=== PATIENT | male | born 1950 | race Caucasian/White ===

== ENCOUNTER → 2018-05-29 08:03 | Outpatient (CLI) | payer OTHER, SELFPAY ==
[2018-05-29 12:11] LABS: INR 1.3 (1.0-3.5); Prothrombin Time 12.2 sec (9.3-10.8)
== END ==
PROVIDERS: PCP Family Medicine; Visit Provider Surgery
DX: Z79.01 Long term (current) use of anticoagulants (principal); Z95.2 Presence of prosthetic heart valve
CPT/HCPCS: 36415; 85610

== ENCOUNTER → 2018-06-01 07:40 | Outpatient (CLI) | payer OTHER, SELFPAY ==
[2018-06-01 11:12] LABS: INR 1.6 (1.0-3.5); Prothrombin Time 15.3 sec (9.3-10.8)
== END ==
PROVIDERS: PCP Family Medicine; Visit Provider Family Medicine
DX: R79.1 Abnormal coagulation profile (principal); Z79.01 Long term (current) use of anticoagulants
CPT/HCPCS: 36415; 85610

== ENCOUNTER → 2018-06-02 14:17 | Outpatient (CLI) | payer OTHER, SELFPAY ==
[2018-06-02 15:10] LABS: Prothrombin Time 19.4 sec (9.3-10.8)
== END ==
PROVIDERS: PCP Family Medicine; Visit Provider Family Medicine
DX: Z79.01 Long term (current) use of anticoagulants (principal); Z95.2 Presence of prosthetic heart valve
CPT/HCPCS: 36415; 85610

== ENCOUNTER → 2018-06-05 09:42 | Outpatient (CLI) | payer OTHER, SELFPAY ==
[2018-06-05 14:46] LABS: INR 1.6 (1.0-3.5); Prothrombin Time 15.7 sec (9.3-10.8)
== END ==
PROVIDERS: PCP Family Medicine; Visit Provider Family Medicine
DX: R79.1 Abnormal coagulation profile (principal); Z95.2 Presence of prosthetic heart valve; Z79.01 Long term (current) use of anticoagulants
CPT/HCPCS: 85610

== ENCOUNTER 2018-06-09 08:26 | Outpatient (CLI) | payer OTHER, SELFPAY ==
[2018-06-09 16:50] LABS: INR 2.2 (1.0-3.5); Prothrombin Time 21.3 sec (9.3-10.8)
== END 2018-06-09 08:27 ==
PROVIDERS: PCP Family Medicine; Visit Provider Family Medicine
DX: R79.1 Abnormal coagulation profile (principal); Z79.01 Long term (current) use of anticoagulants; Z95.2 Presence of prosthetic heart valve
CPT/HCPCS: 36415; 85610

== ENCOUNTER 2018-06-16 15:50 | Outpatient (REF) | payer OTHER, SELFPAY ==
[2018-06-16 21:01] LABS: HGB 13.2 g/dL (13.5-17.5)
[2018-06-16 21:25] LABS: ALT 18 U/L (12-78); AST 27 U/L (15-37); Albumin 3.5 g/dL (3.4-5.0); Alkaline Phosphatase 70 U/L (46-116); Anion Gap 4.8 mmol/L (3-11); BUN 17 mg/dL (7-18); Bilirubin, Total 0.2 mg/dL (0.2-1.0); CO2 27.2 mmol/L (21.0-32.0); CREATININE 1.11 mg/dL (0.70-1.30); Calcium 8.5 mg/dL (8.5-10.1); Chloride 109 mmol/L (98-107); Glucose 95 mg/dL (70-100); Potassium 4.6 mmol/L (3.5-5.1); Sodium 141 mmol/L (136-145); TSH (W/Ref FT4) 1.23 uIU/mL (0.358-3.74); Total Protein 6.4 g/dL (6.4-8.2)
== END 2018-06-16 16:10 ==
LOC: NCHCN 15:50
PROVIDERS: PCP Family Medicine; Visit Provider Family Medicine
DX: E03.9 Hypothyroidism, unspecified (principal); D62 Acute posthemorrhagic anemia
CPT/HCPCS: 80053; 84443; 85014; 85018

== ENCOUNTER 2018-06-21 07:40 | Outpatient (CLI) | payer OTHER, SELFPAY ==
[2018-06-21 10:50] LABS: INR 1.4 (1.0-3.5); Prothrombin Time 13.5 sec (9.3-10.8)
== END 2018-06-21 08:00 ==
PROVIDERS: PCP Family Medicine; Visit Provider Family Medicine
DX: R79.1 Abnormal coagulation profile (principal); Z95.2 Presence of prosthetic heart valve; Z79.01 Long term (current) use of anticoagulants
CPT/HCPCS: 36415; 85610

== ENCOUNTER 2018-06-27 15:01 | Outpatient (CLI) | payer OTHER, SELFPAY ==
[2018-06-27 16:43] LABS: Prothrombin Time 28.3 sec (9.3-10.8)
== END 2018-06-27 15:21 ==
PROVIDERS: PCP Family Medicine; Visit Provider Family Medicine
DX: R79.1 Abnormal coagulation profile (principal); Z95.2 Presence of prosthetic heart valve; Z79.01 Long term (current) use of anticoagulants
CPT/HCPCS: 36415; 85610

== ENCOUNTER 2018-07-04 08:25 | Outpatient (CLI) | payer OTHER, SELFPAY ==
[2018-07-04 12:18] LABS: Prothrombin Time 28.3 sec (9.3-10.8)
== END 2018-07-04 08:45 ==
PROVIDERS: PCP Family Medicine; Visit Provider Family Medicine
DX: R79.1 Abnormal coagulation profile (principal); Z95.2 Presence of prosthetic heart valve; Z79.01 Long term (current) use of anticoagulants
CPT/HCPCS: 36415; 85610

== ENCOUNTER 2018-07-07 08:50 | Emergency (ER) | payer OTHER, SELFPAY ==
--- NOTE | 2018-07-07 09:01 | NUR.NOTE ---
Nursing Note: Put on tracker in error. Notified by Kehinde Prasad RN. Sandee Hauser.
== END 2018-07-07 09:02 | disposition other institution (70) ==
LOC: ER 09:03
PROVIDERS: PCP Family Medicine
DX: Z53.21 Procedure and treatment not carried out due to patient leaving prior to being seen by health care provider (principal)

== ENCOUNTER 2018-07-12 08:08 | Outpatient (CLI) | payer OTHER, SELFPAY ==
[2018-07-12 13:45] LABS: INR 2.8 (1.0-3.5); Prothrombin Time 26.3 sec (9.3-10.8)
== END 2018-07-12 08:28 ==
PROVIDERS: PCP Family Medicine; Visit Provider Family Medicine
DX: R79.1 Abnormal coagulation profile (principal); Z79.01 Long term (current) use of anticoagulants; Z95.2 Presence of prosthetic heart valve
CPT/HCPCS: 36415; 85610

== ENCOUNTER 2018-08-01 12:10 | Outpatient (CLI) | payer OTHER, SELFPAY ==
[2018-08-01 12:59] LABS: INR 2.5 (1.0-3.5); Prothrombin Time 23.6 sec (9.3-10.8)
== END 2018-08-01 12:30 ==
PROVIDERS: PCP Family Medicine; Visit Provider Family Medicine
DX: R79.1 Abnormal coagulation profile (principal); Z79.01 Long term (current) use of anticoagulants; Z95.2 Presence of prosthetic heart valve
CPT/HCPCS: 36415; 85610

== ENCOUNTER 2018-08-08 09:50 | Outpatient (REF) | payer OTHER, SELFPAY ==
[2018-08-08 19:19] LABS: HCT 48.2 % (40.0-50.0); HGB 15.1 g/dL (13.5-17.5); Mean Corp. HGB Concentration 31.3 g/dL (32.0-36.0); Mean Corpuscular Volume 95.6 fL (80-95); Mean Platelet Volume 11.1 fL (8.0-11.0); Platelet Count 266 x1000/uL (130-400); RBC 5.04 m/cumm (4.50-6.00); RBC Distribution Width 15.9 % (11.8-14.1); White Blood Cell Count 7.93 k/cumm (4.4-10.8)
[2018-08-08 19:36] LABS: ALT 22 U/L (12-78); AST 30 U/L (15-37); Albumin 3.8 g/dL (3.4-5.0); Alkaline Phosphatase 64 U/L (46-116); Anion Gap 7.6 mmol/L (3-11); BUN 26 mg/dL (7-18); Bilirubin, Total 0.6 mg/dL (0.2-1.0); CO2 27.4 mmol/L (21.0-32.0); CREATININE 1.41 mg/dL (0.70-1.30); Calcium 9.1 mg/dL (8.5-10.1); Chloride 103 mmol/L (98-107); Estimated GFR 49.99 (mL/min/1.73m2); Glucose 95 mg/dL (70-100); Potassium 4.9 mmol/L (3.5-5.1); Sodium 138 mmol/L (136-145); Total Protein 6.9 g/dL (6.4-8.2)
== END 2018-08-08 10:10 ==
LOC: NCHCN 09:50
PROVIDERS: PCP Family Medicine; Visit Provider Specialist/Technologist Athletic Trainer
DX: Z86.2 Personal history of diseases of the blood and blood-forming organs and certain disorders involving the immune mechanism (principal); Z79.01 Long term (current) use of anticoagulants; Z01.818 Encounter for other preprocedural examination
CPT/HCPCS: 80053; 85027

== ENCOUNTER 2018-09-06 07:51 | Outpatient (CLI) | payer OTHER, SELFPAY ==
[2018-09-06 11:19] LABS: INR 1.9 (1.0-3.5); Prothrombin Time 18.3 sec (9.3-10.8)
== END 2018-09-06 08:11 ==
PROVIDERS: PCP Family Medicine; Visit Provider Family Medicine
DX: R79.1 Abnormal coagulation profile (principal); Z95.2 Presence of prosthetic heart valve; Z79.01 Long term (current) use of anticoagulants
CPT/HCPCS: 36415; 85610

== ENCOUNTER 2018-09-14 07:27 | Outpatient (CLI) | payer OTHER, SELFPAY ==
[2018-09-14 11:47] LABS: INR 2.1 (1.0-3.5); Prothrombin Time 20.1 sec (9.3-10.8)
== END 2018-09-14 07:47 ==
LOC: LBO 07:28 → NCHCO 10-11 09:02
PROVIDERS: PCP Family Medicine; Visit Provider Family Medicine
DX: R79.1 Abnormal coagulation profile (principal); Z79.01 Long term (current) use of anticoagulants; Z95.2 Presence of prosthetic heart valve
CPT/HCPCS: 36415; 85610

== ENCOUNTER 2018-12-15 13:42 | Outpatient (REF) | payer OTHER, SELFPAY ==
[2018-12-15 19:23] LABS: Abs Immature Grans 0.02 k/cumm (0.0-0.09); Absolute Basophil Count 0.09 k/cumm (0.0-0.2); Absolute Eosinophil Count 0.44 k/cumm (0.0-0.7); Absolute Monocyte Count 0.49 k/cumm (0.11-0.7); Absolute Neutrophil Count 4.38 k/cumm (1.2-6.7); Basophils % 1.4; Eosinophils % 6.7; HCT 45.1 % (40.0-50.0); HGB 14.4 g/dL (13.5-17.5); Immature Grans % 0.3; Lymphocytes % 16.9; Mean Corp. HGB Concentration 31.9 g/dL (32.0-36.0); Mean Corpuscular Hemoglobin 30.4 pg (27.0-33.0); Mean Corpuscular Volume 95.1 fL (80-95); Mean Platelet Volume 10.6 fL (8.0-11.0); Monocytes % 7.5; Neutrophils % 67.2; Platelet Count 257 x1000/uL (130-400); RBC 4.74 m/cumm (4.50-6.00); RBC Distribution Width 15.7 % (11.8-14.1); White Blood Cell Count 6.52 k/cumm (4.4-10.8)
[2018-12-15 19:38] LABS: ALT 17 U/L (12-78); AST 28 U/L (15-37); Albumin 3.7 g/dL (3.4-5.0); Alkaline Phosphatase 69 U/L (46-116); Anion Gap 7.6 mmol/L (3-11); BUN 19 mg/dL (7-18); Bilirubin, Total 0.4 mg/dL (0.2-1.0); CO2 29.4 mmol/L (21.0-32.0); CREATININE 1.06 mg/dL (0.70-1.30); Chloride 104 mmol/L (98-107); Glucose 86 mg/dL (70-100); Potassium 4.6 mmol/L (3.5-5.1); Sodium 141 mmol/L (136-145); Total Protein 6.8 g/dL (6.4-8.2)
== END 2018-12-15 14:02 ==
LOC: NCHCN 13:42
PROVIDERS: PCP Family Medicine; Visit Provider Family Medicine
DX: Z00.00 Encounter for general adult medical examination without abnormal findings (principal); N28.9 Disorder of kidney and ureter, unspecified; Z86.2 Personal history of diseases of the blood and blood-forming organs and certain disorders involving the immune mechanism
CPT/HCPCS: 80053; 85025

== ENCOUNTER 2020-08-19 21:08 | Outpatient (REF) | payer OTHER, SELFPAY ==
[2020-08-19 20:22] LABS: HCT 47.3 % (40.0-50.0); HGB 14.9 g/dL (13.5-17.5); MCHC 31.5 % (32.0-36.0); MCV 98.5 fL (80-95); Platelet Count 253 10^3/uL (130-400); RDW 15.9 % (11.8-14.1); RDW-SD 57.8 fL; WBC 7.23 10^3/uL (4.4-10.8)
[2020-08-19 20:49] LABS: ALT 31 U/L (16-63); AST 38 U/L (15-37); Albumin 3.9 g/dL (3.4-5.0); Alkaline Phosphatase 60 U/L (46-116); Anion Gap 8.2 mmol/L (3-11); BUN 19 mg/dL (7-18); Bilirubin, Total 0.4 mg/dL (0.2-1.0); CO2 25.8 mmol/L (21.0-32.0); CREATININE 1.29 mg/dL (0.70-1.30); Calcium 8.8 mg/dL (8.5-10.1); Chloride 107 mmol/L (98-107); Estimated GFR 55.06 (mL/min/1.73m2); Glucose 112 mg/dL (74-106); Potassium 4.1 mmol/L (3.5-5.1); Sodium 141 mmol/L (136-145); TSH (W/Ref FT4) 1.84 uIU/mL (0.36-3.74); Total Protein 6.7 g/dL (6.4-8.2)
== END 2020-08-19 21:28 ==
LOC: NCHCN 21:08
PROVIDERS: PCP Family Medicine; Visit Provider Family Medicine
DX: E03.9 Hypothyroidism, unspecified (principal); Z95.2 Presence of prosthetic heart valve; Z76.89 Persons encountering health services in other specified circumstances; F41.8 Other specified anxiety disorders; F10.20 Alcohol dependence, uncomplicated; Z86.2 Personal history of diseases of the blood and blood-forming organs and certain disorders involving the immune mechanism; N28.9 Disorder of kidney and ureter, unspecified
CPT/HCPCS: 80053; 85027; 84443

== ENCOUNTER 2021-11-26 15:53 | Outpatient (REF) | payer MEDICARE, SELFPAY ==
[2021-11-26 19:58] LABS: HCT 46.8 % (40.0-50.0); HGB 14.7 g/dL (13.5-17.5); MCH 30.4 pg (27.0-33.0); MCHC 31.4 % (32.0-36.0); MCV 96.7 fL (80-95); MPV 9.6 fL (8.0-11.0); Platelet Count 293 10^3/uL (130-400); RBC 4.84 10^6/uL (4.36-5.78); RDW 14.6 % (11.8-14.1); RDW-SD 52.2 fL; WBC 9.22 10^3/uL (4.4-10.8)
[2021-11-26 20:24] LABS: ALT 29 U/L (16-63); AST 31 U/L (15-37); Albumin 3.8 g/dL (3.4-5.0); Alkaline Phosphatase 65 U/L (46-116); Anion Gap 8.3 mmol/L (3-11); BUN 35 mg/dL (7-18); Bilirubin, Total 0.4 mg/dL (0.2-1.0); CO2 26.7 mmol/L (21.0-32.0); CREATININE 1.3 mg/dL (0.70-1.30); Calcium 9.4 mg/dL (8.5-10.1); Calculated LDL 136 mg/dL (<100); Chloride 107 mmol/L (98-107); Cholesterol 227 mg/dL (<200); Estimated GFR 54.42 (mL/min/1.73m2); Glucose 90 mg/dL (74-106); HDL Cholesterol 51 mg/dL (40-60); Potassium 4.9 mmol/L (3.5-5.1); Sodium 142 mmol/L (136-145); TSH (W/Ref FT4) 2.29 uIU/mL (0.36-3.74); Total Protein 7.1 g/dL (6.4-8.2); Triglyceride 200 mg/dL (<150)
== END 2021-11-26 15:54 | disposition home or self-care (01) ==
LOC: NCHCN 15:53
PROVIDERS: PCP Family Medicine; Visit Provider Family Medicine
DX: Z00.00 Encounter for general adult medical examination without abnormal findings (principal)
CPT/HCPCS: 80053; 80061; 85027; 84443

== ENCOUNTER → 2022-06-09 02:02 | Outpatient (CLI) | payer MEDICARE, SELFPAY ==
--- NOTE | 2022-06-09 14:00 | DI.US_ITS ---
APPROVED REPORT EXAM: Comprehensive 2D, Doppler, and color-flow Echocardiogram Patient Location: Out-Patient [employer] Supervisor: Krupa Deras RDCS (AE) Indications: Abdominal aortic aneurysm, AVR, mechanical Other Information Study Quality: Fair. Technically limited study due to body habitus. Conclusion Mild concentric left ventricular hypertrophy. Estimated ejection fraction is 55%. Wall motion is no rmal Right atrium and right ventricle are not well visualized Normal left atrial size There is a mechanical aortic valve prosthesis. Mean gradient is 7 mmHg. There is trace aortic regur gitation Mildly thickened mitral leaflets, trace to mild mitral regurgitation Normal tricuspid valve with trace regurgitation. Estimated right ventricular systolic pressure is 24 mmHg Dilated ascending aorta measuring 4.13 cm Wall motion Left Ventricle The left ventricle is normal size. The overall left ventricular systolic function appears normal. Mil d concentric left ventricular hypertrophy. There is normal LV segmental wall motion. There is no vent ricular septal defect visualized. LVEF is 55%. Right Ventricle Right ventricle is not well visualized. Right ventricular systolic function could not be assessed. Th e RVSP is 23.6 mmHg. Atria The left atrium size is normal. Right atrium is not well visualized. The interatrial septum is intact with no evidence for an atrial septal defect. Aortic Valve There is no aortic valvular stenosis. Trace aortic regurgitation. Mechanical aortic valve is present. Mitral Valve Mildly thickened mitral leaflets No evidence of mitral valve stenosis. Trace to mild mitral regurgita tion. Tricuspid Valve The tricuspid valve is normal in structure. There is no tricuspid valve stenosis. Trace tricuspid reg urgitation. Pulmonic Valve The pulmonary valve is normal in structure. There is no pulmonic valvular stenosis. Trace pulmonic re gurgitation. Great Vessels The aortic root is normal in size. The ascending aorta is dilated.4.13 cm Aortic arch is normal in ca liber. IVC is normal in size and collapses >50% with inspiration. Pericardium There is no pericardial effusion. 2D Dimensions IVSD d PLAX 1.30 cm M: 0.6-1.2 LA vol/ BSA A4C s A-L 14.5 mL/m2 LVPW d PLAX 1.29 cm M: 0.6 - 1.2 LA Area A4C s MOD 13.17 cm2 LVID d PLAX 5.60 cm M: 4.2 - 5.8 LVDs 3.95 cm M: 2.5 - 4.0 Ao Root d 3.61 cm M: 3.1 - 3.7 RA Area A4C 20.34 cm2 RA Vol/ BSA A4C s A-L 28.0 mL/m2 Ao Asc Diam d 4.13 cm M: 2.6 - 3.4 LV EF Teichholz 55.5 % FS 29.30 % M-Mode TAPSE 2.22 cm (M/F) >1.7 LV Diastology MV E' lateral 0.121 (>0.1 m/s) E/A Ratio 0.9 LV E/e LAT 4.55 (<14) MV E Vmax 0.56 (0.4-1.3 m/s) MV E/E' lateral 4.59 MV A Vmax 0.65 (0.4-1.3 m/s) MV E/A Ratio 0.85 Aortic Valve LVOT Area 3.56 cm2 AoV Area Vmax 1.47 cm2 LVOT Vmax 0.75 m/s AoV Area/ BSA (Vmax) 0.75 cm2/m2 LVOT Mean Anthony. 0.55 m/s FLAVIO Mean Anthony. 1.60 cm2 LVOT Peak Grad 2.2 mmHg FLAVIO Mean Anthony. Index 0.82 cm2/m2 LVOT Mean Grad 1.4 mmHg AR DT 2313 msec LVOT VTI 0.144 m AR PHT 671 msec LVOT Diam s 2.10 cm AoV Vmax 1.81 m/s Velocity Ratio 0.41 AoV Mean Anthony. 1.23 m/s AoV Peak Grad 13.1 mmHg LVOT SV 51.24 mL AoV Mean Grad 7.0 mmHg AoV VTI 0.331 m AoV Area VTI 1.55 cm2 AoV Area/ BSA (VTI) 0.79 cm/m2 Mitral Valve MV DT 267 (160-240 msec) MV PHT 77 msec MV Area PHT 2.85 cm2 Pulmonary Valve PV Vmax 1.07 (0.5-1.5 m/s) RVOT Peak Gr. 1.45 mmHg PV Peak Grad 4.6 mmHg RVOT Mean Gr. 0.70 mmHg PV Mean Grad 2.3 mmHg RVOT VTI 0.117 m PV VTI 0.173 m RVOT Vmax 0.60 m/s Tricuspid Valve TR Peak Grad 20.5 mmHg TR Vmax 2.27 m/s RA Pressure 3.00 mmHg RVSP (TR) 23.6 mmHg
== END ==
PROVIDERS: PCP Family Medicine; Visit Provider Clinical Nurse Specialist
DX: I71.4 Abdominal aortic aneurysm, without rupture (principal)
CPT/HCPCS: 93306

== ENCOUNTER 2022-11-12 13:53 | Outpatient (REF) | payer MEDICARE, SELFPAY | END 2022-11-12 13:54 | disposition home or self-care (01) | LOC: NCHCN 13:53 | PROVIDERS: PCP Family Medicine; Visit Provider Family Medicine | DX: L53.9 Erythematous condition, unspecified (principal) | CPT/HCPCS: 87070; 87205 ==

== ENCOUNTER 2022-12-28 08:41 | Outpatient (REF) | payer MEDICARE, SELFPAY ==
[2022-12-28 17:58] LABS: Calculated LDL 92 mg/dL (<100); Cholesterol 192 mg/dL (<200); HDL Cholesterol 78 mg/dL (40-60); TSH 3.03 uIU/mL (0.36-3.74); Triglyceride 112 mg/dL (<150)
== END 2022-12-28 08:42 | disposition home or self-care (01) ==
LOC: NCHCN 08:41
PROVIDERS: PCP Family Medicine; Visit Provider Family Medicine
DX: E03.9 Hypothyroidism, unspecified (principal)
CPT/HCPCS: 80061; 84439; 84443

== ENCOUNTER 2023-03-22 10:04 | Emergency (ER) | payer MEDICARE, SELFPAY ==
[2023-03-22] VITALS (53 sets, daily range): BP systolic 87–130; BP diastolic 43–85; PULSE 66–112; RESP 16–28; TEMP 36.6–36.9; O2SAT 96–100
--- NOTE | 2023-03-22 10:30 | RT.EKG_ITS ---
APPROVED REPORT Exam: Resting ECG Reason for Exam: GIB Patient Location: E HR:89 bpm ECG Measurements Heart Rate 89 AXIS ND 184 P 0 QRSd 105 QRS -24 QT 360 T 121 QTc 435 Conclusion Sinus rhythm...normal P axis, V-rate 60- 99 Ventricular premature complex...V complex w/ short R-R interval Inferior infarct, old...Q >35mS, II III aVF Nonspecific T abnormalities, lateral leads...T <-0.10mV, I aVL V5 V6
--- NOTE | 2023-03-22 10:40 | W.ED.GENAD ---
Discharge Plan Discharge Details Chief Complaint: GI Bleed Primary Care Provider: Farnaz Pineda V ED Provider: Saurabh Urbano Home Meds and New Rx's Prescriptions: No Action prednisone 20 mg tablet 40 mg PO DAILY Qty: 10 0RF Rx Instructions: take in the morning with food. take 2 pills daily x 5 days doxycycline hyclate 100 mg capsule 100 mg PO BID Qty: 14 0RF Rx Instructions: Avoid sun exposure. Take with meal. Take 1 pill every 12 hours x 7 days albuterol sulfate [Ventolin HFA] 90 mcg/actuation HFA aerosol inhaler 2 puff inhalation Q6H PRN (Reason: shortness of breath or wheezing) Qty: 6.7 0RF venlafaxine [Effexor XR] 75 MG capsule,extended release 24hr 75 mg PO DAILY fluticasone propion-salmeterol [Advair Diskus] 1 EACH blister with device 1 ea Inhalation BID Rx Instructions: [id number] WITH SYMBICORT levothyroxine [Synthroid] 50 MCG tablet 75 mcg PO DAILY montelukast 10 MG tablet 10 mg PO DAILY omeprazole 20 MG capsule,delayed release(DR/EC) 40 mg PO BID Qty: 0 0RF acetaminophen [Mapap Extra Strength] 500 MG tablet 1,000 mg PO BID PRN warfarin [Coumadin] 7.5 MG tablet 7.5 mg PO QPM Qty: 0 0RF Patient Comments: & Tuesday 10mg, 7.5 all other days 05/11/14 Rx Instructions: Start night of surgery 05/25/18 oxycodone 5 MG tablet 5 mg PO QID PRN PRNQty: 15 0RF Medical Decision Making This patient presents with symptoms concerning for a lower GI bleed. Differential diagnoses include diverticulitis (most common cause) versus hemorrhoids complicated by Coumadin administration. Less likely etiologies include angiodysplasia, cancer, IBD. Presentation not consistent with mesenteric ischemia or ischemic colitis, brisk or life threatening upper GIB as patient has no evidence of hemorrhagic shock, melena. Will obtain CBC assess for significant anemia, INR for supratherapeutic Coumadin level. His last dose of Coumadin was last night and is not due for another one tonight. We will likely consult general surgery for further guidance as to whether they want a bleeding scan or as the patient is stable and nonemergent colonoscopy and observation for cessation of bleeding. Differential Diagnosis Differential Diagnosis: Lower GI bleed, bleeding hemorrhoid, bleeding diverticula, Coumadin toxic Medical Records Medical records reviewed: Yes I reviewed the patient's medical records. HPI General Date/Time Provider Initiated Documentation: 03/22/23 10:36. Limitations to Documentation: no limitations. Information obtained by: patient. HPI Narrative: Patient with history of aortic valve replacement now with several hours of a lower GI bleed. States that he has had at least 5 bowel movements of blood and blood clots. Denies any abdominal pain. Denies any epigastric abdominal pain. States that his INR was checked at home and it was 2.1. No change in recent Coumadin dosing. States that he has a distant history of hemorrhoids but has not noted one recently. Also with a history of multiple colon polyps on previous colonoscopy in is on a schedule to have colonoscopies every 5 years. Also with a history of a prostatectomy that was complicated by an arterial pseudoaneurysm and he had a septic hematoma this was several years ago. Patient reports a history of gastroesophageal reflux disease but reports no history of heavy alcohol abuse or known ulcers. Related Data Home Medications Medication Instructions Recorded Confirmed levothyroxine 50 mcg tablet 75 mcg PO DAILY 12/19/12 03/22/23 (Synthroid) montelukast 10 mg tablet 10 mg PO DAILY 12/19/12 03/22/23 fluticasone 100 mcg-salmeterol 50 1 ea inhalation BID 09/20/13 03/22/23 mcg/dose blistr powdr for inhalation (Advair Diskus) venlafaxine 75 mg capsule,extended 75 mg PO DAILY 09/20/13 03/22/23 release 24 hr (Effexor XR) omeprazole 20 mg capsule,delayed 40 mg PO BID ##0 09/25/16 03/22/23 release acetaminophen 500 mg tablet (Mapap 1,000 mg PO BID PRN 05/22/18 03/22/23 Extra Strength) oxycodone 5 mg tablet 5 mg PO QID PRN PRN #15 tabs 05/25/18 warfarin 7.5 mg tablet (Coumadin) 7.5 mg PO QPM ##0 05/25/18 03/22/23 doxycycline hyclate 100 mg capsule 100 mg PO BID #14 caps 10/04/22 03/22/23 prednisone 20 mg tablet 40 mg PO DAILY #10 tabs 10/04/22 10/04/22 albuterol sulfate 90 mcg/actuation 2 puff inhalation Q6H PRN 10/05/22 03/22/23 aerosol inhaler (Ventolin HFA) shortness of breath or wheezing #6.7 grams Previous Rx's Medication Instructions Recorded omeprazole 20 mg capsule,delayed 40 mg PO BID ##0 09/25/16 release oxycodone 5 mg tablet 5 mg PO QID PRN PRN #15 tabs 05/25/18 warfarin 7.5 mg tablet (Coumadin) 7.5 mg PO QPM ##0 05/25/18 doxycycline hyclate 100 mg capsule 100 mg PO BID #14 caps 10/04/22 prednisone 20 mg tablet 40 mg PO DAILY #10 tabs 10/04/22 albuterol sulfate 90 mcg/actuation 2 puff inhalation Q6H PRN 10/05/22 aerosol inhaler (Ventolin HFA) shortness of breath or wheezing #6.7 grams Allergies Allergy/AdvReac Type Severity Reaction Status Date / Time No Known Allergies Allergy Unverified 03/22/23 10:38 General Stated Complaint: GI Bleed MERY: 3 Review of Systems Narrative: REVIEW OF SYSTEMS: CONST: Negative for fever, body aches and chills. HENT: Negative for neck pain/stiffness, headache, congestion, sore throat, swelling. EYES: Negative for discharge/pain or vision changes. RESP: Negative for cough/hemoptysis and shortness of breath. CV: Negative chest pain, difficulty breathing, palpitations. ABD: Negative pain, nausea, vomiting. : Negative increase frequency, dysuria, blood in urine. MUSC: Negative for muscle aches, edema. SKIN: Negative rash, lesions/sores. NEURO: Negative headache, dizziness, weakness. 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 Primary malignant neoplasm of prostate (Active) Status post da Adriana Prostatectomy 11/2012. S/P three hospitalization at [facility] [place] since surtgery. S/P 5 visits to [facility] since surgery. S/P two ER visits [facility] [place] since surgery. Most recent cystoscopy on 01/18/2013 for evacuation of clots and evaluation of anastomosis which was fine. Replacement of aortic valve (Active) Solitary kidney (Active) Hypothyroidism (Active) Gastroesophageal reflux disease (Active) Hypogonadism (Active) Male erectile disorder (Active) Gastritis (Acute) Alcohol dependence (Acute) Aortic prosthetic valve regurgitation (Acute) Medical History Asthma Carcinoma of prostate DIVERTICULOSIS Hypothyroidism MECHANICAL AORTIC VALVE TUBULAR ADENOMA Umbilical hernia Ventral hernia Surgical History (Updated 07/26/18 @ 14:35 by [place]) AORTIC VALVE REPLACEMENT (~2001) Colonoscopy - IV Sedation (12/02/08) TUBULAR ADENOMA & DIVERTICULOSIS Colonoscopy - MAC (09/24/16) EGD - MAC (09/24/16) Hernia Repair, Incisional left inguinal hernia (05/25/18) Prostatectomy (11/20/12) Family History Mother No problems noted. Father Myocardial infarction Social History Smoking/Tobacco Use Status: Former Tobacco Use Smoking risk assessment performed?: Yes Alcohol Intake: current Alcohol Intake frequency: a few times a week Drug use: Never Substance use type: does not use Do you feel safe at home: Yes Do you feel safe in your relationship?: Yes Exam Narrative Exam Narrative: GENERAL APPEARANCE NAD, activity normal for age, well developed/ well nourished, no cyanosis, pallor, or diaphoresis. EYES lids/conjunctiva normal. EARS/NOSE/THROAT Mucous membranes moist, nares normal, lips/teeth normal uvula midline without oral pharyngeal erythema, exudate or swelling No lymphangitis/lymphedema. HEAD/NECK normocephalic atraumatic, no facial trauma, neck is supple. RESPIRATORY respiratory effort normal, speaks in full sentences, no tripod position, no accessory muscle use. Lungs clear to auscultation without rhonchi, wheezes, rales CARDIAC Regular rate and rhythm, no edema. ABDOMINAL Soft, ND/NT. No evidence of fluid wave. No pulsatile masses on exam, rebound tenderness, Pinto sign or pain over Mcburney's point. MUSCLES/EXTREMITIES No abnormal range of motion, no swelling. SKIN Warm, pink and dry. No rashes, dermatoses, petechiae or lesions. NEUROLOGICAL Speech is clear and appropriate. Normal level of consciousness. Gait and coordination are normal. 5/5 strength in all extremities. PSYCH Normal mood and affect. Judgement/competence is appropriate GI Rectal Exam: visual inspection normal, No hemorrhoids, No lesions, No mass and No ropey tissue in betito-rectal space Other: No active bleeding Course Reevaluation(s) Time: 12:08 Reevaluation: Discussed case with the hospitalist service Dr. Kinsey who recommended consulting general surgery. Discussed the case with Dr. Castaneda general surgery who stated that she is not able to do an endoscopic evaluation today or tonight. Tomorrow surgery has double coverage and an elective colonoscopy can be done tomorrow however tomorrow night Dr. Castaneda is again product support consultant and is unable to perform colonoscopy in an emergent setting and that may necessitate the patient's transfer. At this time the patient is stable nontachycardic with no abdominal pain and no active bleeding between bowel movements. We will again discuss with the hospitalist service to establish this patient's disposition and covering service. Time: 16:39 Reevaluation #2: I have discussed the case with [facility] and they are unable to accept the patient in transfer due to capacity reasons. Also presented the case to [facility] who initially said that they would accept the patient under the general surgery service but then we received a call back from the internal medicine service through nurse stating that they would not be able to accept the patient as we would have capacity correction capability to perform a nonemergent scope for this patient. I requested to speak to the hospitalist service at [facility] to clarify the reason for not excepting the admission/transfer and I am waiting on a return call. Time: 17:03 Additional Reevaluation(s): Spoke with the GI service at [facility]. They are declining to accept this patient as right now he is not in an emergent condition. I have notified the electrician helper powerhouse and to assist with finding an appropriate setting to transfer this patient to. GI at [facility] stated that they would not scope this patient on an emergent basis now and that he would need discontinuation of his anticoagulation as recommended by cardiology prior to proceeding with colonoscopy. CT scan pending at this time this was requested by the hospital service at [facility] prior to transfer before they ultimately declined transfer. Reason for declining was they stated that after reading my note they felt that the patient could have an elective colonoscopy tomorrow. Consultations Time: 17:19 Consultation #2: Spoke with [facility] hospitalist service Dr. Salter. States that they would be unable to accept this patient in transfer as he does not meet emergent criteria at this time. Nurse reports patient just had another large bloody bowel movement and his blood pressure is trending down. Will repeat CBC. I suspect that the patient will continue to trend downwards and have a drop in H&H and drop in blood pressure. At this time the patient will be held in the ED and hopefully bleeding slows down or stops but if it does not both [facility] and [facility] suggested calling them back to update them on his condition and if it worsens they will reconsider excepting this patient in transfer for an emergent intervention. Time: 18:09 Consultation #3: Spoke with Dr. Guy at [facility] who states that their GI service would not be able to do an endoscopy on this patient until that 48 hours from now and that he does not feel comfortable excepting this patient in transfer to their hospital as it would be lateral. We will continue observation in the ED. Repeat CBC shows no significant drop in hemoglobin but a greater than 10% drop in hematocrit. Patient's blood pressures have been soft and he has had multiple repeat bloody bowel movements. At this time transfusion is not indicated. At this time reversal of anticoagulation is not indicated but will hold his nighttime dose. We will continue to observe. Have discussed the case again with a hospital supervisor harvesting who recommends repeat presentation to the hospitalist service for admission to our facility with the understanding that should the patient decompensate the tertiary [facility] centers have been presented the case and would be of assistance in the event that an emergent intervention is necessary.` Time: 19:58 Additional Consultation(s): Contacted [facility] in [place] but they do not have an ICU bed available for this patient. Vital Signs Vital signs: Vital Signs Temperature 36.9 C 03/22/23 10:16 Pulse 107 H 03/22/23 10:16 Respiratory Rate 18 03/22/23 10:16 Blood Pressure 101/78 03/22/23 10:16 Pulse Oximetry 96 03/22/23 10:16 Temperature 36.9 C 03/22/23 10:16 Pulse 107 H 03/22/23 10:16 Respiratory Rate 18 03/22/23 10:16 Respiratory Effort Normal 03/22/23 10:20 Blood Pressure 101/78 03/22/23 10:16 Blood Pressure Position Supine 03/22/23 10:16 Pulse Oximetry 96 03/22/23 10:16 Oxygen Delivery Method Room Air 03/22/23 10:16 Oxygen Flow Rate 0 03/22/23 10:16 Pain Level 0 03/22/23 10:16 Sign Out Sign Out Data: Sign Out Comment: Pending serial CBC, consult [facility] is worsening. Continue observation in ER as no receiving facility has accepted. Last updated by Saurabh Urbano MD at 03/22/23 20:22
[2023-03-22 11:01] LABS: Abs Immature Grans 0.07 10^3/uL (0.0-0.06); Absolute Basophil Count 0.14 10^3/uL (0.0-0.2); Absolute Eosinophil Count 0.56 10^3/uL (0.0-0.7); Absolute Lymphocyte Count 1.32 10^3/uL (1.2-3.4); Absolute Neutrophil Count 9.44 10^3/uL (1.2-6.7); Basophils % 1.1; Eosinophils % 4.5; HCT 40.3 % (40.0-50.0); HGB 12.8 g/dL (13.5-17.5); Immature Grans % 0.6; Lymphocytes % 10.5; MCH 30.5 pg (27.0-33.0); MCHC 31.8 % (32.0-36.0); MCV 96 fL (80-95); MPV 9.1 fL (8.0-11.0); Neutrophils % 75.3; Platelet Count 274 10^3/uL (130-400); RDW 15.3 % (11.8-14.1); RDW-SD 53.8 fL; WBC 12.54 10^3/uL (4.4-10.8)
[2023-03-22 11:17] LABS: INR 2.3 (0.9-1.1); Prothrombin Time 23.5 sec (9.3-11.0)
[2023-03-22 11:19] LABS: ALT 33 U/L (16-63); AST 43 U/L (15-37); Albumin 3.7 g/dL (3.4-5.0); Alkaline Phosphatase 62 U/L (46-116); Anion Gap 7.5 mmol/L (3-11); BUN 30 mg/dL (7-18); Bilirubin, Direct 0.2 mg/dL (0.0-0.2); Bilirubin, Total 0.5 mg/dL (0.2-1.0); CO2 24.5 mmol/L (21.0-32.0); CREATININE 1.6 mg/dL (0.70-1.30); Calcium 9.4 mg/dL (8.5-10.1); Chloride 105 mmol/L (98-107); Estimated GFR 45.21 (mL/min/1.73m2); Glucose 130 mg/dL (74-106); Lipase 29 U/L (16-77); Magnesium 1.8 mg/dL (1.8-2.4); Potassium 4.5 mmol/L (3.5-5.1); Sodium 137 mmol/L (136-145); Troponin I < 50 ng/L (<or=60)
--- NOTE | 2023-03-22 11:42 | NUR.NOTE ---
Nursing Note: Pt thoroughly updated with plan of care by this RN and provider team. Pt understands next steps of care.
--- NOTE | 2023-03-22 12:22 | NUR.NOTE ---
Nursing Note: Pt updated with care and understands next steps. Pt has warm blankets and call light.
--- NOTE | 2023-03-22 14:15 | DI.CT_ITS ---
Exam(s) CT ABDOMEN PELVIS W EXAM: CT ABDOMEN PELVIS W CLINICAL HISTORY: Lower GI bleed. TECHNIQUE: Imaging Protocol: Axial computed tomography images with coronal and sagittal reformatted images were created and reviewed CONTRAST MATERIAL: Intravenous: Omnipaque-350 100cc Oral: None COMPARISON: CT ABD PELVIS WITH CONTRAST from 10/20/2012 FINDINGS: VISUALIZED LUNG BASES: No nodules nor pleural effusions evident. ABDOMEN: There is no ascites. Moderate size hiatal hernia again noted. LIVER: There is a benign appearing subcapsular cyst in the upper right hepatic lobe measuring 1 cm wh ich has increased in size from previous but exhibits benign appearance. There is also a tiny 2 trent meter benign cyst just anterior to this level in the liver. There is another cyst lower down in the right hepatic lobe which measures 1.5 by 0.7 cm, slightly increased in size from 2013. There are no ominous hepatic lesions evident. No dilated intrahepatic ducts. GALLBLADDER/BILIARY: No obvious gallbladder pathology. CBD is not dilated. PANCREAS: No evidence of pancreatic mass nor dilatation of the pancreatic duct. SPLEEN: Spleen is not enlarged. No obvious intrasplenic lesions. Splenic and portal veins are paten t. ADRENALS: There are no significant adrenal masses. KIDNEYS:Right kidney is again noted to be severely atrophic. Left kidney exhibits normal size and mu ltiple small sub cm benign cysts. No calculi. No solid renal masses with the largest left kidney cy st measuring 0.8 cm. No calculi nor hydronephrosis in left kidney. Left renal vein is patent IVC: IVC filter is now evident. No obvious filling defects in the IVC at this level. The superior t ip of the IVC filter is at the level of the junction of the left renal vein and IVC.. ABDOMINAL AORTA: There is mild fusiform dilatation of the inferior aspect of the abdominal aorta. At this level it exhibits a diameter of 2.4 cm. There is mild arterial megaly of the common iliac crow bridget also evident. LYMPH NODES:There is no retroperitoneal nor paraaortic adenopathy. ABDOMINAL WALL: There is diastasis rectus now evident where there was previously present a fat contai carrie midline umbilical hernia. There is now a additional right paracentral anterior abdominal hernia sac which measures approximately 6 cm wide by 2 cm AP. GI: There is no evidence of bowel obstruction, free air, nor abscess. PELVIS: GI: There is and 8 by 8 millimeter appendicolith but no evidence of acute appendicitis. There is no evidence of acute appendicitis.There is no evidence of diverticulitis. There is fluid in the colon l eft side of the colon. No evidence of small-bowel obstruction. LYMPH NODES: There is no intrapelvic nor inguinal adenopathy. REPRODUCTIVE: Prostate smaller surgically absent. URINARY BLADDER: No calculi nor obvious masses evident OSSEOUS: No fractures and no significant osseous lesions. Multilevel degenerative disc disease. Mild degenerative anterolisthesis L4 upon L5. IMPRESSION: 1. Compared to the prior CT scan of 2012 there is again noted a severely atrophic and most probably n onfunctional right kidney. Left kidney exhibits a few small benign sub cm cyst which do not require further workup. No solid lesions nor calculi in left kidney. No hydronephrosis. 2. There is an IVC filter in place. No obvious in trapped intraluminal clots. 3. Anterior abdominal wall diastasis rectus + additional right sided fat containing anterior abdomina l hernia. Although there are no bowel loops in the hernia sac, there are few mesenteric vessels in t he hernia sac. No fluid nor blood within this hernia sac. 4. Benign cysts in the liver 5. 8 millimeter calcified appendicolith but no evidence of acute appendicitis at this time. No sondra l obstruction. Other findings as above. RADIATION DOSE DELIVERED: 806.49mGy.cm Total DLP DATA REPOSITORY: All CT scans at this facility are submitted to the National Radiology Data Registry (NRDR) Dose Index Registry (DIR) with the [employer] (A[employer]). RADIATION OPTIMIZATION: All CT scans at this facility use at least one of these dose optimization te chniques: automated exposure control; mA and/or kV adjustment per patient size (includes targeted exa ms where dose is matched to clinical indication); or iterative reconstruction.
[2023-03-22 14:31] LABS: Troponin I < 50 ng/L (<or=60)
[2023-03-22] MEDS: Normal Saline - Diluent 50 ML VIAL IV (15:53)
[2023-03-22] MEDS: Omnipaque 350 MG/ML 100 ML BTL IJ (16:05)
[2023-03-22 17:39] LABS: Abs Immature Grans 0.04 10^3/uL (0.0-0.06); Absolute Eosinophil Count 0.28 10^3/uL (0.0-0.7); Absolute Lymphocyte Count 1.32 10^3/uL (1.2-3.4); Absolute Monocyte Count 0.66 10^3/uL (0.1-0.8); Absolute Neutrophil Count 7.04 10^3/uL (1.2-6.7); Basophils % 1.1; HCT 34.5 % (40.0-50.0); HGB 11.1 g/dL (13.5-17.5); Immature Grans % 0.4; MCH 30.7 pg (27.0-33.0); MCHC 32.2 % (32.0-36.0); MCV 96 fL (80-95); MPV 9.7 fL (8.0-11.0); Neutrophils % 74.5; Platelet Count 232 10^3/uL (130-400); RBC 3.61 10^6/uL (4.36-5.78); RDW 15.2 % (11.8-14.1); RDW-SD 53.5 fL; WBC 9.44 10^3/uL (4.4-10.8)
[2023-03-22] MEDS: Normal Saline 1,000 ML 1000 ML IV (19:21)
[2023-03-22 21:08] LABS: HCT 31.4 % (40.0-50.0); MCH 30.8 pg (27.0-33.0); MCHC 31.8 % (32.0-36.0); MCV 97 fL (80-95); MPV 9.1 fL (8.0-11.0); Platelet Count 205 10^3/uL (130-400); RBC 3.25 10^6/uL (4.36-5.78); RDW 15.4 % (11.8-14.1); RDW-SD 55.2 fL; WBC 8.73 10^3/uL (4.4-10.8)
[2023-03-22 21:32] LABS: BE (Venous) -5 mmol/L (-2-3); HCO3 (Venous) 21 mmol/L (23-28); O2 Sat (Venous) 74 %; TCO2 (Venous) 21 mmol/L (24-29); pCO2 (Venous) 44 mmHg (41-51); pH (Venous) 7.29 (7.31-7.41); pO2 (Venous) 40 mmHg
[2023-03-22 21:34] LABS: Lactate 1.2 mmol/L (0.6-1.4)
--- NOTE | 2023-03-22 22:44 | ED.PROG_ITS ---
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 I was told the patient was not hypotensive but his blood pressure was in the 90s. I was also told he was not tachycardic but his heart rate was over 100. Patient had received 1 unit normal saline and been typed and crossmatched for 2 units of blood. I ordered a second unit of normal saline for the patient and his blood pressure came up to 111 systolic with a heart rate of 88. The patient told me that his bleeding started at 1230 last night. He had 5 episodes of bright red blood per rectum at home. He told me that he had had 3 episodes of bright red blood since he arrived in the emergency department 10 hours ago. Patient said the last few times he had gotten up he felt lightheaded and dizzy. Former colonoscopy done about 5 years ago showed some polyps. Patient's INR here in the ED was 2.3 and he was given vitamin K IV. Patient also has a history of arterial pseudoaneurysm status post prostatectomy. He was not given PCC or FFP due to his mechanical valve. Patient's conjunctivae were vaguely pale but his skin was pink warm and dry. Belly was benign. 12 hospitals were called and [facility] and [facility] were called twice. Finally I spoke to Dr. Frederick, CC, no telemetry at [facility] who agreed to accept the patient to the ER. I spoke with Dr. Brumfield in the emergency department and she is actually the accepting physician. The patient has been updated on the plan and concurs. He says his blood pressure of 117 systolic is baseline at this time. His heart rate is in the high 90s. Case also discussed with Dr. Amaya, hospitalist, from [facility]. He does not think the patient sounds unstable enough to do an ER to ER transfer as they are at capacity. Patient did have an additional episode of bright red blood per rectum prior to transfer. He was sent with an RN and an additional unit of blood. Exam Eyes Conjunctivae: conjunctivae normal (mildly pale) Neck Neck: other (supple) Resp Effort & Inspection: normal respiratory effort GI Inspection: normal to inspection and other (NT, ND, NABS) Palpation: soft Auscultation: normal bowel sounds Rectal Exam: other (deferred, pooping BRBPR) Skin General skin exam: other (PWD) Critical Care Time Critical Care Time Critical Care Time: Yes Total Critical Care Time: 90 Attestation: Reviewed physician and nursing notes, patient interaction, history, and exam, review of testing, discussion with nursing, medics, additional consultants. Sign Out Sign Out Data: Sign Out Comment: Pending serial CBC, consult [facility] is worsening. Continue observation in ER as no receiving facility has accepted. Last updated by Saurabh Urbano MD at 03/22/23 20:22 Discharge Plan Disposition Patient Disposition: Transfer-Acute Inpatient Care Specific Acute Inpt Facility: Other Discharge Details Chief Complaint: GI Bleed Clinical Impression: Acute lower gastrointestinal bleeding, Anticoagulated on Coumadin Primary Care Provider: Farnaz Pineda V ED Provider: Reina Nix Home Meds and New Rx's Prescriptions: No Action prednisone 20 mg tablet 40 mg PO DAILY Qty: 10 0RF Rx Instructions: take in the morning with food. take 2 pills daily x 5 days doxycycline hyclate 100 mg capsule 100 mg PO BID Qty: 14 0RF Rx Instructions: Avoid sun exposure. Take with meal. Take 1 pill every 12 hours x 7 days albuterol sulfate [Ventolin HFA] 90 mcg/actuation HFA aerosol inhaler 2 puff inhalation Q6H PRN (Reason: shortness of breath or wheezing) Qty: 6.7 0RF venlafaxine [Effexor XR] 75 MG capsule,extended release 24hr 75 mg PO DAILY fluticasone propion-salmeterol [Advair Diskus] 1 EACH blister with device 1 ea Inhalation BID Rx Instructions: [id number] WITH SYMBICORT levothyroxine [Synthroid] 50 MCG tablet 75 mcg PO DAILY montelukast 10 MG tablet 10 mg PO DAILY omeprazole 20 MG capsule,delayed release(DR/EC) 40 mg PO BID Qty: 0 0RF acetaminophen [Mapap Extra Strength] 500 MG tablet 1,000 mg PO BID PRN warfarin [Coumadin] 7.5 MG tablet 7.5 mg PO QPM Qty: 0 0RF Patient Comments: & Tuesday 10mg, 7.5 all other days 05/11/14 Rx Instructions: Start night of surgery 05/25/18 oxycodone 5 MG tablet 5 mg PO QID PRN PRNQty: 15 0RF Discharge Data Discharge Date/Time-TO BE ENTERED AT DEPARTURE: 03/22/23 23:50
[2023-03-22] MEDS: PHYTONADIONE 10 MG in Normal Saline 50 ML 200 MG IVPB (22:45)
--- NOTE | 2023-03-22 22:51 | NUR.NOTE ---
@2200- Pt had Db bloody BM w/ approx 250mL out. VSS, pt states that he feels slightly dizzy. 2RN verification completed for blood transfusion with LANIE Larson. There is a time discrepancy with the [facility] d/t lab not releasing blood product. MD Boyd made aware of pt status.
--- NOTE | 2023-03-22 23:11 | NUR.NOTE ---
@0127-Attempted to call report to [facility] without answer. Will try to call again.
--- NOTE | 2023-03-22 23:21 | NUR.NOTE ---
@9280-Attempted to call report to [facility] w/o answer.
== END 2023-03-22 23:50 | disposition short-term general hospital (02) ==
PROVIDERS: Emergency Medicine; Emergency Provider Emergency Medicine; PCP Family Medicine
DX: K92.2 Gastrointestinal hemorrhage, unspecified (principal); Z79.01 Long term (current) use of anticoagulants; Z95.4 Presence of other heart-valve replacement
CPT/HCPCS: 36415; 36430; 80053; 80076; 82805; 83690; 85027; 86850; 86900; 86901; 86920; 93005; 96361; 96374; 99291; 74177; 83605; 83735; 84484; 85025; 85610; 93010; J3430; J3490; P9016

== ENCOUNTER 2023-04-18 12:49 | Outpatient (REF) | payer MEDICARE, SELFPAY ==
[2023-04-18 16:41] LABS: HCT 26.3 % (40.0-50.0); HGB 7.7 g/dL (13.5-17.5); MCH 28.5 pg (27.0-33.0); MCHC 29.3 % (32.0-36.0); MCV 97 fL (80-95); MPV 9.6 fL (8.0-11.0); Platelet Count 516 10^3/uL (130-400); RDW 19.4 % (11.8-14.1); RDW-SD 65.6 fL; WBC 8.48 10^3/uL (4.4-10.8)
[2023-04-18 16:54] LABS: ALT 33 U/L (16-63); AST 33 U/L (15-37); Albumin 2.5 g/dL (3.4-5.0); Alkaline Phosphatase 63 U/L (46-116); Anion Gap 6.2 mmol/L (3-11); BUN 13 mg/dL (7-18); Bilirubin, Total 0.2 mg/dL (0.2-1.0); CO2 28.8 mmol/L (21.0-32.0); CREATININE 1.1 mg/dL (0.70-1.30); Calcium 8.8 mg/dL (8.5-10.1); Chloride 106 mmol/L (98-107); Estimated GFR 70.88 (mL/min/1.73m2); Glucose 75 mg/dL (74-106); Magnesium 2.1 mg/dL (1.8-2.4); Potassium 5.1 mmol/L (3.5-5.1); Sodium 141 mmol/L (136-145); Total Protein 5.5 g/dL (6.4-8.2)
== END 2023-04-18 12:50 | disposition home or self-care (01) ==
LOC: NCHCN 12:49
PROVIDERS: PCP Family Medicine; Visit Provider Family Medicine
DX: K92.2 Gastrointestinal hemorrhage, unspecified (principal); N28.9 Disorder of kidney and ureter, unspecified; Z86.2 Personal history of diseases of the blood and blood-forming organs and certain disorders involving the immune mechanism
CPT/HCPCS: 80053; 85027; 83735

== ENCOUNTER 2023-04-25 15:29 | Outpatient (CLI) | payer MEDICARE, SELFPAY ==
[2023-04-25 11:07] LABS: HCT 30.6 % (40.0-50.0); HGB 8.8 g/dL (13.5-17.5); MCH 27.2 pg (27.0-33.0); MCHC 28.8 % (32.0-36.0); MCV 95 fL (80-95); Platelet Count 342 10^3/uL (130-400); RBC 3.23 10^6/uL (4.36-5.78); RDW 18.3 % (11.8-14.1); RDW-SD 64.3 fL; WBC 4.66 10^3/uL (4.4-10.8)
[2023-04-25 11:19] LABS: Prothrombin Time 9.9 sec (9.3-11.0)
[2023-04-25 11:49] LABS: ALT 22 U/L (16-63); AST 26 U/L (15-37); Albumin 2.9 g/dL (3.4-5.0); Alkaline Phosphatase 59 U/L (46-116); Anion Gap 7.2 mmol/L (3-11); BUN 13 mg/dL (7-18); Bilirubin, Total 0.2 mg/dL (0.2-1.0); CO2 26.8 mmol/L (21.0-32.0); CREATININE 1.2 mg/dL (0.70-1.30); Calcium 8.8 mg/dL (8.5-10.1); Chloride 108 mmol/L (98-107); Estimated GFR 63.85 (mL/min/1.73m2); Glucose 85 mg/dL (74-106); Potassium 4.5 mmol/L (3.5-5.1); Sodium 142 mmol/L (136-145); TSH (W/Ref FT4) 1.81 uIU/mL (0.36-3.74); Total Protein 6.3 g/dL (6.4-8.2)
== END 2023-04-25 15:30 | disposition home or self-care (01) ==
LOC: LBO 15:30
PROVIDERS: PCP Family Medicine; Visit Provider Family Medicine
DX: D62 Acute posthemorrhagic anemia; L53.9 Erythematous condition, unspecified; Z00.00 Encounter for general adult medical examination without abnormal findings; N28.9 Disorder of kidney and ureter, unspecified; K92.2 Gastrointestinal hemorrhage, unspecified
CPT/HCPCS: 36415; 80053; 85027; 84443; 85610

== ENCOUNTER 2023-05-03 10:51 | Outpatient (CLI) | payer MEDICARE, SELFPAY ==
[2023-05-03 11:00] LABS: HCT 31.5 % (40.0-50.0); HGB 9.1 g/dL (13.5-17.5)
== END 2023-05-03 10:52 | disposition home or self-care (01) ==
LOC: LBO 10:51
PROVIDERS: PCP Family Medicine; Visit Provider Family Medicine
DX: K92.2 Gastrointestinal hemorrhage, unspecified (principal); R73.9 Hyperglycemia, unspecified
CPT/HCPCS: 36415; 85014; 85018

== ENCOUNTER 2023-05-23 11:37 | Outpatient (REF) | payer MEDICARE, SELFPAY ==
[2023-05-23 17:24] LABS: HCT 35.6 % (40.0-50.0); HGB 10.5 g/dL (13.5-17.5)
== END 2023-05-23 11:38 | disposition home or self-care (01) ==
LOC: NCHCN 11:37
PROVIDERS: PCP Family Medicine; Visit Provider Family Medicine
DX: D62 Acute posthemorrhagic anemia (principal)
CPT/HCPCS: 85014; 85018

== ENCOUNTER 2023-06-23 14:55 | Outpatient (CLI) | payer MEDICARE, SELFPAY ==
[2023-06-23 13:59] LABS: HCT 43.5 % (40.0-50.0)
[2023-06-23 14:21] LABS: ALT 23 U/L (16-63); AST 28 U/L (15-37); Albumin 3.7 g/dL (3.4-5.0); Alkaline Phosphatase 74 U/L (46-116); Anion Gap 6.8 mmol/L (3-11); BUN 25 mg/dL (7-18); Bilirubin, Total 0.4 mg/dL (0.2-1.0); CO2 28.2 mmol/L (21.0-32.0); CREATININE 1.3 mg/dL (0.70-1.30); Calcium 8.9 mg/dL (8.5-10.1); Chloride 104 mmol/L (98-107); Estimated GFR 58.01 (mL/min/1.73m2); Glucose 100 mg/dL (74-106); Potassium 4.2 mmol/L (3.5-5.1); Sodium 139 mmol/L (136-145); Total Protein 7.3 g/dL (6.4-8.2)
== END 2023-06-23 14:56 | disposition home or self-care (01) ==
LOC: LBO 14:55
PROVIDERS: PCP Family Medicine; Visit Provider Family Medicine
DX: E03.9 Hypothyroidism, unspecified (principal); D62 Acute posthemorrhagic anemia
CPT/HCPCS: 36415; 80053; 84443; 85014; 85018

== ENCOUNTER 2023-08-12 09:41 | Outpatient (CLI) | payer MEDICARE, SELFPAY ==
[2023-08-15 13:22] LABS: PSA, Ultrasensitive <0.01 ng/mL (<= 6.5)
== END 2023-08-12 09:42 | disposition home or self-care (01) ==
LOC: LBO 09:42
PROVIDERS: PCP Family Medicine; Visit Provider Urology
DX: C61 Malignant neoplasm of prostate (principal)
CPT/HCPCS: 36415; 84153

== ENCOUNTER → 2023-08-15 13:00 | Outpatient (CLI) | payer MEDICARE, SELFPAY ==
--- NOTE | 2023-08-15 11:52 | DI.RAD_ITS ---
Exam(s) XR CHEST 2V PA LATERAL EXAM: XR CHEST 2V PA LATERAL CLINICAL HISTORY: COUGH, R05.8 TECHNIQUE: 2D digital imaging was performed of the chest. Two images were obtained. PA and lateral views were obtained. COMPARISON: CR ABDOMEN FLAT PLATE from 09/12/2017 FINDINGS: MEDIASTINUM: Normal. HEART: Normal. PULMONARY VASCULATURE: Normal. There is tortuosity of the thoracic aorta. LUNGS: Clear. PLEURAL SPACE: No pleural effusion or pneumothorax. BONE:Within normal limits for the patient's age. Sternal wires are in place. 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 IMPRESSION: No acute pulmonary findings. DATA REPOSITORY: RADIATION DOSE DELIVERED:
== END ==
PROVIDERS: PCP Family Medicine; Visit Provider Nurse Practitioner Family
DX: R05.8 Other specified cough (principal)
CPT/HCPCS: 71046

== ENCOUNTER → 2023-11-14 10:14 | Outpatient (BNVA) | payer MEDICARE, SELFPAY | PROVIDERS: PCP Family Medicine; Referring Provider Family Medicine; Visit Provider Physician Assistant Surgical | DX: R05.3 Chronic cough (principal) | CPT/HCPCS: 99215 ==

== ENCOUNTER → 2023-11-29 04:06 | Outpatient (CLI) | payer MEDICARE, SELFPAY ==
--- NOTE | 2023-11-29 07:45 | DI.CT_ITS ---
Exam(s) CT CHEST WO EXAM: CT CHEST WO CLINICAL HISTORY: CHRONIC COUGH not responding to tx,R05.3. TECHNIQUE: Multi planar reconstructions were performed. CONTRAST MATERIAL: None COMPARISON: CT CT ABDOMEN PELVIS W from 03/22/2023 CR XR CHEST 2V PA LATERAL from 08/15/2023 FINDINGS: CHEST: LUNGS: There is a 1.3 by 0.6 cm subpleural solid nodule in the left lower lobe which was not evident on 03/22/2023. Suspicious nodule. In addition, there is some mild patchy ground-glass infiltrate in the left upper lobe and lingular segment, not associated with pleural effusion. The opposite-right lung is clear. There are no pleural effusions on either side. No findings in the trachea although s ome mucus is noted on the left side of the maira. There is no bronchiectasis. MEDIASTINUM: There is no obvious hilar nor mediastinal adenopathy. Visualized thyroid unremarkable.Mo derate size hiatal hernia noted. CARDIAC: Sternotomy wires. Heart size upper normal. The diameter of the ascending thoracic aorta is prominent, measuring 4.6 cm. Diameter of the mid aortic arch is prominent measuring 3.1 cm[address] Diamet er of the descending thoracic aorta is prominent measuring 3.4 cm and is also ectatic. VISUALIZED UPPER ABDOMEN:No adrenal masses. IVC filter noted. Spleen size normal. Partially includ ed atrophic right kidney again noted. Small cyst in the superior aspect of the right hepatic lobe ag ain noted. 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 Also displaced nonunion fracture of th e adjacent right 11th rib unchanged. No new rib fractures evident. No compression fractures.. IMPRESSION: 1. There is a somewhat concerning 13 x 6 millimeter solid subpleural slightly irregular nodule now ev ident in the left lower lobe, not previously present on the uppermost images of an abdominal CT scan performed 03/22/2023. In addition, there is some mild patchy infiltrate elsewhere in the left lung i nvolving upper lobe and lingular segment. No new right lung findings and no pleural effusions. No o bvious intrathoracic adenopathy. Appropriate referral recommended concerning nodular left lower lobe density. Also recommend repeat CT scan in 3 months. 2. Sternotomy wires. Dilated thoracic aorta with measurements as above. Ascending thoracic aorta me asures 4.6 cm. 3. 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 No new fractures identified. No osseous lesi ons. No compression fractures of thoracic vertebrae evident. Abdominal findings as above. RADIATION DOSE DELIVERED: 587.23mGy.cm Total DLP DATA REPOSITORY: All CT scans at this facility are submitted to the National Radiology Data Registry (NRDR) Dose Index Registry (DIR) with the [employer] (A[employer]). RADIATION OPTIMIZATION: All CT scans at this facility use at least one of these dose optimization te chniques: automated exposure control; mA and/or kV adjustment per patient size (includes targeted exa ms where dose is matched to clinical indication); or iterative reconstruction.
== END ==
PROVIDERS: PCP Family Medicine; Visit Provider Physician Assistant Surgical
DX: R05.3 Chronic cough (principal); R91.8 Other nonspecific abnormal finding of lung field
CPT/HCPCS: 71250

== ENCOUNTER 2023-11-29 04:42 | Outpatient (CLI) | payer MEDICARE, SELFPAY ==
[2023-11-29] MEDS: Methacholine 100 MG VIAL IH (16:56)
[2023-11-29] MEDS: Inhaler, Assist Device 1 EACH MC (16:57)
[2023-11-29] MEDS: Albuterol HFA 18 GM 200 PUFF INH IH (16:57)
--- NOTE | 2023-12-01 14:12 | W.PFT ---
Date of service: 11/29/23 Time of Service: 15:00 Pulmonary Function Test Result Indications: Chronic cough Interpretation Spirometry: There is no airflow limitation. There is restrictive spirometry. There was a 9% decrease in FEV1 with administration of 16 mg/mL methacholine. Lung Volumes: There is restrictive lung disease Diffusion Capacity: There is borderline low diffusion Airway Pressure: Normal airways resistance Impression Ther eis mild restrictive lung disease with a borderline diffusion and a negative methacholine. Clinical Correlation therefore is recommended.
== END 2023-11-29 04:43 | disposition home or self-care (01) ==
LOC: RT 04:42
PROVIDERS: PCP Family Medicine; Visit Provider Physician Assistant Surgical
DX: R05.3 Chronic cough (principal); J98.4 Other disorders of lung
CPT/HCPCS: 94060; 94070; 94726; 94729; 94010; J7674

== ENCOUNTER → 2023-12-20 11:29 | Outpatient (BNVA) | payer MEDICARE, SELFPAY | PROVIDERS: PCP Family Medicine; Referring Provider Family Medicine; Visit Provider Student in an Organized Health Care Education/Training Program | DX: R93.89 Abnormal findings on diagnostic imaging of other specified body structures (principal); R91.1 Solitary pulmonary nodule; R05.3 Chronic cough; J98.4 Other disorders of lung | CPT/HCPCS: 76604; 99213 ==

== ENCOUNTER → 2024-02-23 04:06 | Outpatient (CLI) | payer MEDICARE, SELFPAY ==
--- NOTE | 2024-02-23 14:27 | DI.CT_ITS ---
Exam(s) CT CHEST WO EXAM: CT CHEST WO CLINICAL HISTORY: assess resolution of left GGO and LLL nodule,ABNL CHEST CT,R93.89. TECHNIQUE: Multi planar reconstructions were performed. CONTRAST MATERIAL: None COMPARISON: CT CT ABDOMEN PELVIS W from 03/22/2023 CR XR CHEST 2V PA LATERAL from 08/15/[address] CHEST WO from 11/29/2023 FINDINGS: CHEST: LUNGS: The previously described subpleural left lower lobe nodule is again noted. Similar size to pr evious without evidence of interval growth from CT scan of 11/29/2023. However, there is still some ground-glass infiltrate in the left upper lobe and there is a new nodular infiltrate in the anterior segment of the left upper lobe measuring 9 x 6 mm. No new focal right lung findings. There are no p leural effusions. No new findings in the trachea and mainstem bronchi. MEDIASTINUM: There is no obvious hilar nor mediastinal adenopathy. Visualized thyroid unremarkable.La rge hiatal hernia again noted. Measures 5.5 by 5.0 by 4.5 cm. CARDIAC: Heart size unchanged. No pericardial effusion. Prosthetic aortic valve and enlarged ascend ing thoracic aorta with maximum diameter 4.6 cm again noted. Sternotomy wires. VISUALIZED UPPER ABDOMEN:No adrenal masses. IVC filter in place. Severely atrophic right kidney aga in noted. 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 No acute rib fractures evident. No significant osseous lesions.. IMPRESSION: 1. Unchanged appearance of the left lower lobe subpleural nodule. However, when compared to the CT s can of 2023 there is also a new 9 x 6 mm nodular infiltrate in the anterior segment of the left upp er lobe as well as some persistent ground-glass infiltrate in the left upper lobe. No new right lung findings. No pleural effusions. 2. Large hiatal hernia again noted. 3. Enlarged ascending thoracic aorta with diameter 4.6 cm again noted. Sternotomy wires. IVC filter again noted. Also fractures of the right 10th and 11th ribs again noted, without evidence of union. RADIATION DOSE DELIVERED: 511.13mGy.cm Total DLP DATA REPOSITORY: All CT scans at this facility are submitted to the National Radiology Data Registry (NRDR) Dose Index Registry (DIR) with the [employer] (ACR). RADIATION OPTIMIZATION: All CT scans at this facility use at least one of these dose optimization te chniques: automated exposure control; mA and/or kV adjustment per patient size (includes targeted exa ms where dose is matched to clinical indication); or iterative reconstruction.
== END ==
PROVIDERS: PCP Family Medicine; Visit Provider Student in an Organized Health Care Education/Training Program
DX: R91.8 Other nonspecific abnormal finding of lung field (principal)
CPT/HCPCS: 71250

== ENCOUNTER → 2024-03-08 13:00 | Outpatient (BNVA) | payer MEDICARE, SELFPAY | PROVIDERS: PCP Family Medicine; Referring Provider Family Medicine; Visit Provider Student in an Organized Health Care Education/Training Program | DX: R91.1 Solitary pulmonary nodule (principal); R05.3 Chronic cough; R93.89 Abnormal findings on diagnostic imaging of other specified body structures | CPT/HCPCS: 99214 ==

== ENCOUNTER 2024-04-20 14:56 | Outpatient (CLI) | payer MEDICARE, SELFPAY ==
[2024-04-20 12:48] LABS: BUN 14 mg/dL (7-18); CREATININE 1.4 mg/dL (0.70-1.30); Estimated GFR 52.74 (mL/min/1.73m2)
--- OUTSIDE RECORDS SUMMARY | 2024-04-20 15:05 | XMS_ITS | Clinical Summary ---
Author Organization [facility] [place] [address] Care Team Providers Care Grey Percher Name Role Phone Farnaz Pineda MD Primary Care Provider [phone] Allergies No known active allergies Medications Medication Sig Dispensed Refills Start Date End Date Status omeprazole (PRILOSEC) 20 mg capsule Take 20 mg by mouth daily. Active warfarin (COUMADIN) 7.5 mg tablet Take 7.5 mg by mouth daily. Active montelukast (SINGULAIR) 10 mg tablet Take 10 mg by mouth nightly. Active levothyroxine (SYNTHROID) 50 mcg tablet Take 50 mcg by mouth daily. Active acetaminophen (TYLENOL) 500 mg tablet Take 2 tablets by mouth every 6 hours as needed for Pain. 30 tablet 0 01/29/2013 Active venlafaxine (EFFEXOR) 75 mg tablet Take 75 mg by mouth daily. Active fluticasone propion-salmeteroL (ADVAIR) 250-50 mcg/dose Disk with Device Inhale 1 puff into the lungs every 12 hours. Active albuterol (PROVENTIL) 5 mg/mL Solution for Nebulization Take 2.5 mg by nebulization every 6 hours as needed for Wheezing. Active glucosamine sulfate 500 mg Tablet Take 2 tablets by mouth. Active diphenhydrAMINE (BENADRYL) 25 mg Capsule Take 25 mg by mouth every 6 hours as needed for Allergies. Active sulfamethoxazole-tr imethoprim (BACTRIM DS) 800-160 mg Tablet Take 1 tablet by mouth 2 times daily. Start 08/10, stop 08/11 and 08/12, restart 08/13 for one week 16 tablet 07/19/2018 Active Additional Information Patient not taking.Reported on 03/18/2022 mupirocin (BACTROBAN) 2 % Ointment Instill 0.5g into each nostril twice a day for five days. Gently press and massage sides of nose together. 15 g 07/20/2018 Active Additional Information Patient not taking.Reported on 03/18/2022 oxyCODONE (Roxicodone) 5 mg Tablet Take by mouth. 05/25/2018 Active oxybutynin (Ditropan-XL) 10 mg ER 24 hr tablet Take 1 tablet by mouth daily. 90 tablet 2 08/16/2023 Active Active Problems Problem Noted Date Diagnosed Date Left groin mass 03/17/2018 Erectile dysfunction following radical prostatec dax 03/17/2018 Infected hematoma following procedure 02/13/2013 Overview (02/13/2013): E coli, Enterococcus, both sensitive. Treated with drainage and IV pcn/oral cipro 01/26- Postoperative hemorrhage 01/24/2013 S/P AVR (aortic valve replacement) 01/24/2013 S/P prostatectomy 11/21/2012 Prostate cancer 11/21/2012 Family History Medical History Relation Comments Anesthesia Reaction Neg Hx Bleeding Disorder Neg Hx Malignant Hyperthermia Neg Hx Postoperative Nausea and Vomiting Neg Hx Pseudocholinesterase Deficiency Neg Hx Pulmonary Embolism Neg Hx Social History Tobacco Use Types Packs/Day Years Used Date Smoking Tobacco: Former Cigarettes 1 1 0 11/02/1985 - 11/02/1986 Smokeless Tobacco: Never Alcohol Use Standard Drinks/Week Comments Yes 5 (1 standard drink = 0.6 oz pur e alcohol) 2 gin and tonic per night Sex and Gender Information Value Date Recorded Sex Assigned at Not on file Gender Identity Not on file Sexual Orientation Not on file Last Filed Vital Signs Vital Sign Reading Time Taken Comments Blood Pressure 121/77 03/18/2022 4:14 PM EDT Pulse 82 03/18/2022 4:14 PM EDT Temperature 37 ??C (98.6 ??F) 07/16/2019 2:24 PM EDT Respiratory Rate 16 06/20/2014 1:24 PM EDT Oxygen Saturation 99% 03/17/2018 1:50 PM EDT Inhaled Oxygen Concentration - - Weight 89.4 kg (197 lb) 02/26/2021 3:01 PM EDT Height 170.2 cm (5' 7) 01/26/2016 3:08 PM EDT Body Mass Index 30.85 01/26/2016 3:08 PM EDT Plan of Treatment Health Maintenance Due Date Last Done Comments CT Colonography 1950 Colonoscopy 1950 Colorectal Cancer Screening 1950 FIT DNA 1950 FIT 1950 Sigmoidoscopy (10 year) with FIT yearly 1950 Sigmoidoscopy 1950 Hepatitis C Screening 02/19/1968 Lipid Screening 02/19/1968 Tdap adult 1969 Tetanus vaccine 1969 Zoster vaccine (1 of 2) 02/19/2000 Advance Directive 2005 AAA Screen 2015 Pneumoccocal Vaccine: 65+ (1 of 1 - PCV) 2015 Covid-19 Vaccine (1 - 2022-24 season) 2023 Influenza (Flu) vaccine (1 o f 1 - Influenza standard series) 06/10/2024 Advance Directives * Full Code (Latest Code Status on File) Date Activated Date Inactivated Comments 01/24/2013 5:56 PM 01/30/2013 8:50 PM Question Answer Comments Order Status: Initial Order Does patient have decision m aking capacity? Yes, Order is based on Patients wishes. * Full Code Date Activated Date Inactivated Comments 01/23/2013 11:24 PM 01/24/2013 5:56 PM Question Answer Comments Order Status: Initial Order Does patient have decision m aking capacity? Yes, Order is based on Patients wishes. * Full Code Date Activated Date Inactivated Comments 01/03/2013 6:22 PM 01/05/2013 4:38 PM Question Answer Comments Order Status: Initial Order Does patient have decision m aking capacity? Yes, Order is based on Patients wishes. * Full Code Date Activated Date Inactivated Comments 12/27/2012 6:40 PM 12/28/2012 6:56 PM Question Answer Comments Order Status: Initial Order Does patient have decision m aking capacity? Yes, Order is based on Patients wishes. * Full Code Date Activated Date Inactivated Comments 12/23/2012 4:09 PM 12/26/2012 5:50 PM Question Answer Comments Order Status: Initial Order Does patient have decision m aking capacity? Yes, Order is based on Patients wishes. Care Teams Grey Percher Relationship Specialty Start Date End Date Farnaz Pineda MD [address] [place] [address] PCP - General 10/26/12
--- OUTSIDE RECORDS SUMMARY | 2024-04-20 15:05 | XMS_ITS | Continuity of Care Document ---
Author Organization [facility] Address [address] [place] [address] Care Team Providers Care Railroad Cook Name Role Phone CAMERON PATEL Primary Care Provider HUEY SHANNON Urologist [phone] [facility] Hospice Music Therapist CAMERON CHEUNG Rug Weaver LOGAN PINA Dentist Assessment Encounter Date Assessment Date Assessment LastModified by Organization Details LastModified Time 02/21/2024 02/21/2024 Patient presente d to office today for their Medicare Annual Wellness Visit. Education was provided on healthy nutrition, including a diet rich in fruits and vegetables, minimizing simple carbohydrates, salt, and saturated fats. Encouraged regular cardiovascular exercise such as walking at least 30 minutes daily, 5 times per week. Emphasized preventive health measures and educated pt on fall prevention and community-based lifestyle interventions to help reduce health risks and promote healthy living. Personalized prevention plan (PPP) completed and reviewed with patient. Patient was given written copy of PPP at conclusion of visit, detailing prior screening and 5-10 year future screening plan including: screenings for breast cancer and colorectal cancer, immunizations, and other age appropriate screenings consistent with USPSTF and ACIP guidelines [email or web address] Not available 02/19/2024 10:32:26 Plan of Treatment Reminders Order Date Submit Date Provider Last Modified By Organization Details Last Modified Time Details Appointments Medicare Annual Wellness 40 2024 01:30P M CAMERON PATEL Not available Not available Not available Lab hemoglobi n (Hb), fingersti ck, blood 2023 024 sberrian [facility], [address] [place], [address], 02/21/2024 15:17:02 Referral None recorded. Procedures None recorded. Surgeries None recorded. Imaging None recorded. Medication Orders None recorded. Patient TargetsNo targets recorded. Patient Instructions Encounter Date Encounter Id Patient Instructions Last Modified By Organization Details Last Modified Time 02/21/2024 [id number] Has AD's filled out - just needs to have witnessed. librado Not available 02/21/2024 14:22:45 Reason for Referral Rug Weaver Referral for P ersistent cough Referring Physician: Cameron Patel, Family Medicine, Encounter Date: 10/13/2023 Results Created Date Observation Date Name Description Value Unit Range Abnormal Flag LastModifiedBy Organization Detail LastModifiedTime 02/21/2002/21/2024 hemog lobin (Hb), finge rstic k, blood HGB 13.2 g/dL Not Available [facility] [address] [place], [address], 02/21/2024 14:37:34 02/23/20 24 02/23/2024 CT imagi ng repor ayse tavera Name: Sylvain Rodgers Unit #: [id number] Loc: DI Orderi ng Provid er: Gina Da Silva M.D. Accoun t #: [id number] Status : REG CLI Primar y Care Provid er: Ce Corona M.D. Date of Exam : Sex: M : 1949 Age: 74 Exam(s ) a CT:CT chest wo Exam(s ) CT CHEST WO EXAM: CT CHEST WO CLINIC AL HISTOR Y: assess resolu tion of left GGO and LLL nodule ,ABNL CHEST CT,R93 .89. TECHNI QUE: Multi planar recons tructi ons were perfor med. CONTRA ST MATERI AL: None COMPAR OMID: CT CT ABDOME N PELVIS W from 2022 CR XR CHEST 2V PA LATERA L from [address] CHEST WO from 2023 FINDIN GS: CHEST: LUNGS: The previo usly descri bed subple ural left lower lobe nodule is again noted. Simila r size to previo us withou t eviden ce of interv al growth from CT scan of 2023. Howeve r, there is still some ground -glass infilt rate in the left upper lobe and there is a new nodula r infilt rate in the anteri or segmen t of the left upper lobe measur ing 9 x 6 mm. No new focal right lung findin gs. There are no pleura l effusi ons. No new findin gs in the trache a and mainst em bronch i. MEDIAS TINUM: There is no obviou s hilar nor medias tinal adenop athy. Visual ized thyroi d unrema rkable .Large hiatal hernia again noted. Measur es 5.5 by 5.0 by 4.5 cm. CARDIA C: Heart size unchan ged. No perica rdial effusi on. Prosth etic aortic valve and enlarg ed ascend ing thorac ic aorta with maximu m diamet er 4.6 cm again noted. Sterno dax wires. VISUAL IZED UPPER ABDOME N:No adrena l masses . IVC filter in place. Severe ly atroph ic right kidney again noted. OSSEOU S: Nonuni on fractu res of the right 10th and 11th ribs are again noted. No acute rib fractu res eviden t. No signif icant osseou s lesion s.. IMPRES STEPHENIE: 1. Unchan ged appear ance of the left lower lobe subple ural nodule . Howeve r, when compar ed to the CT scan of 2023 there is also a new 9 x 6 mm nodula r infilt rate in the anteri or segmen t of the left upper lobe as well as some persis tent ground -glass infilt rate in the left upper lobe. No new right lung findin gs. No pleura l effusi ons. 2. Large hiatal hernia again noted. 3. Enlarg ed ascend ing thorac ic aorta with diamet er 4.6 cm again noted. Sterno dax wires. IVC filter again noted. Also fractu res of the right 10th and 11th ribs again noted, withou t eviden ce of union. RADIAT ION DOSE DELIVE RED: 511.13 mGy.cm Total DLP DATA REPOSI TORY: All CT scans at this facili ty are submit kandace to the [facility] al Radiol ogy Data Regist ry (NRDR) Dose Index Regist ry (DIR) with the [place] of Radiol ogy (ACR). RADIAT ION OPTIMI ZATION : All CT scans at this facili ty use at least one of these dose optimi zation techni ques: automa kandace exposu re contro l; mA and/or kV adjust ment per patien t size (inclu halima target ed exams where dose is matche d to clinic al indica tion); or iterat koki recons tructi on. 014: Total DLP = 0.00 mGy-cm Ordere d By: Gina Da Silva M.D. CC: ------ ------ ------ ------ ------ ------ ------ ------ ------ ------ ------ ------ ---- Dictat ed By: Ashok Brown M.D. 1722 Transc ribed By: Stephanie NICHOLSON,Vanesa dao 1722 This is privil eged, confid ential inform ation intend ed only for the provid er named. Any use or distri bution by any person other than this provid er is strict ly prohib ited. If you receiv e this report in error, please notify us immedi sandyly at and return the origin al report to us at the addres s above. Thank- you. librado [facility] [address], [place], [address] 03/01/2024 15:56:36 Result Notes None recorded. Problems Name Status Onset Date Resolution Date Notes Provider Name and Address Organization Details Recorded Time Nicotine dependence Active 2003 Problem Code: Z87.891; Problem Code Type: ICD-10; Not Available [facility] 3 04:46:37 Uncomplicated mild persistent asthma Active 200811/26/2021 - Comments only - Cameron Patel MD - stable on the singulair, advair, prn albuterol. Exercising regularily. Problem Code: J45.30; Problem Code Type: ICD-10; Not Available [facility] 3 04:46:37 Testicular hypofunction Active 2009 Problem Code: E29.1; Problem Code Type: ICD-10; Not Available [facility] 3 04:46:37 Diverticular disease Completed 201210/24/2012 Not Available [facility] 3 04:46:37 Gastroesophage al reflux disease without esophagitis Active 2001 Problem Code: K21.9; Problem Code Type: ICD-10; Not Available [facility] 3 04:46:37 Malignant tumor of prostate Active 201207/26/2017 - Comments only - Cameron Patel MD - will plan on checking a PSA with next blood draw if not checked by urology. Last PSA was in 2015 and <0.3. Not Available [facility] 3 04:46:37 Umbilical hernia Active 201410/07/2015 - Comments only - Cameron Patel MD - deferring surgery for now, will consider it after her retires. He is aware that if he gets acute pain he will need to be seen. Problem Code: K42.9; Problem Code Type: ICD-10; Not Available [facility] 3 04:46:37 Adult health examination Active 201411/15/2022 - Comments only - Cameron Patel MD - He would like a lipid panel done. Follow-up arranged that the fasting level in a few weeks. Problem Code: Z00.00; Problem Code Type: ICD-10; Not Available [facility] 3 04:46:38 Osteoarthritis Active 201412/15/2018 - Comments only - Jeremiha Tsang - Advised him that he can take up to Tylenol 500 mg tablets TID. Problem Code: M19.90; Problem Code Type: ICD-10; Not Available [facility] 3 04:46:38 Anticoagulant therapy Active 201511/15/2022 - Comments only - Cameron Patel MD - INR elevated today due to current antibiotic use for dental infection. Instructed below in terms of warfarin dosing. We will continue to follow closely. Not Available [facility] 3 04:46:38 Dyspnea Completed 201510/22/2016 Problem Code: R06.02; Problem Code Type: ICD-10; Not Available [facility] 3 04:46:38 History of blood disorder Active 2015 Not Available [facility] 3 04:46:38 Gastritis Active 201511/15/2022 - Comments only - Cameron Patel MD - With history of a GI bleed. He now is on omeprazole 40 mg twice daily, remain asymptomatic . He does monitor for any change in bowels. Problem Code: K29.70; Problem Code Type: ICD-10; Not Available [facility] 3 04:46:38 Hypothyroidism Active 201511/15/2022 - Comments only - Cameron Patel MD - Due for TSH/free T4. He will come in for fasting blood work as below in a few weeks. Problem Code: E03.9; Problem Code Type: ICD-10; Not Available [facility] 3 04:46:38 Implantation to cardiovascular system Active 201607/26/2017 - Comments only - Cameron Patel MD - will discuss with radiology the best means of imaging this to confirm it has not migrated, then he can discuss pro's and con's of leaving it in place with cardiology Problem Code: Z95.828; Problem Code Type: ICD-10; Not Available [facility] 3 04:46:39 Anxiety Active 201611/15/2022 - Comments only - Cameron Patel MD - Doing well, he continues to feel that the venlafaxine is beneficial. Problem Code: F41.8; Problem Code Type: ICD-10; Not Available [facility] 3 04:46:39 Prosthetic heart valve in situ Active 201611/15/2022 - Comments only - Cameron Patel MD - , Clinically remaining stable. He does follow with cardiology. Problem Code: Z95.2; Problem Code Type: ICD-10; Not Available [facility] 3 04:46:39 Mild intermittent asthma Active 201711/22/2020 - Comments only - Cameron Patel MD - well controlled on the singulair and prn albuterol (rarely needs) Problem Code: J45.20; Problem Code Type: ICD-10; Not Available [facility] 3 04:46:39 Erectile dysfunction following radical prostatectomy Active 2017 Problem Code: N52.31; Problem Code Type: ICD-10; Not Available [facility] 3 04:46:39 Pre-surgery evaluation Active 2017 Problem Code: Z01.818; Problem Code Type: ICD-10; Not Available [facility] 3 04:46:39 Disorder of kidney and/or ureter Active 201811/26/2021 - Comments only - Cameron Patel MD - with single kidney - will check a BMP. Problem Code: N28.9; Problem Code Type: ICD-10; Not Available [facility] 3 04:46:40 Pain in left foot Active 2019 Problem Code: M79.672; Problem Code Type: ICD-10; Not Available [facility] 3 04:46:40 Hyperglycemia Active 2019 Problem Code: R73.9; Problem Code Type: ICD-10; Not Available [facility] 3 04:46:40 Screening for malignant neoplasm of colon Active 2021 Problem Code: Z12.11; Problem Code Type: ICD-10; Not Available [facility] 3 04:46:40 Erythema Active 202211/15/2022 - Comments only - Cameron Patel MD - Involving the perirectal area. Currently being treated with [id number] nter antifungals which do not seem to be helping significantl y. They do have Lotrisone at home. I stated they can go ahead and start using that pending culture results that I took. Problem Code: L53.9; Problem Code Type: ICD-10; Not Available [facility] 3 04:46:40 Gastrointestin al hemorrhage Active 2022 Problem Code: K92.2; Problem Code Type: ICD-10; Not Available [facility] 3 04:46:40 Acute posthemorrhagi c anemia Active 2022 Problem Code: D62; Problem Code Type: ICD-10; Not Available [facility] 3 04:46:41 Cardiac arrhythmia Active 2022 Problem Code: I49.9; Problem Code Type: ICD-10; Not Available [facility] 3 04:46:41 Diaphragmatic hernia Active 2022 Problem Code: K44.9; Problem Code Type: ICD-10; Not Available [facility] 3 04:46:41 Diverticula of intestine Active 2022 Problem Code: K57.90; Problem Code Type: ICD-10; Not Available [facility] 3 04:46:41 Reduced libido Completed 200208/08/2018 Not Available [facility] 3 04:46:41 Facial swelling Completed 201608/08/2018 Not Available [facility] 3 04:46:41 Cellulitis Completed 201608/08/2018 Problem Code: L03.90; Problem Code Type: ICD-10; Not Available [facility] 3 04:46:42 Alcohol dependence Completed 201511/26/2021 Problem Code: F10.20; Problem Code Type: ICD-10; Not Available [facility] 3 04:46:42 Anemia Completed 201509/27/2016 Problem Code: D64.9; Problem Code Type: ICD-10; Not Available [facility] 3 04:46:42 Testosterone level below reference range Completed 200907/06/2023 Not Available [facility] 3 04:46:42 Pneumonia Completed 201708/08/2018 Problem Code: J18.9; Problem Code Type: ICD-10; Not Available [facility] 3 04:46:42 Dyspnea Completed 201505/18/2017 Problem Code: R06.02; Problem Code Type: ICD-10; Not Available [facility] 3 04:46:43 Long-term current use of anticoagulant Completed 201411/12/2022 Problem Code: Z79.01; Problem Code Type: ICD-10; Not Available [facility] 3 04:46:43 Hypothyroidism Completed 201111/26/2021 Problem Code: 244.9; Problem Code Type: ICD-9; Not Available [facility] 3 04:46:43 Asthma Completed 200807/06/2023 07/26/2017 - Comments only - Cameron Patel MD - stable on the singulair, symbicort (I suggested that he may try 1 puff bid instead of 2 bid), occasional ventolin use Problem Code: 493.90; Problem Code Type: ICD-9; Not Available [facility] 3 04:46:43 Partial edentulism Completed 201911/26/2021 Problem Code: K08.499; Problem Code Type: ICD-10; Not Available [facility] 3 04:46:43 Gastroesophage al reflux disease Completed 200107/06/2023 10/07/2015 - Comments only - Cameron Patel MD - well controlled on omeprazole Not Available [facility] 3 04:46:44 Cough Completed 201708/08/2018 Problem Code: R05; Problem Code Type: ICD-10; Not Available [facility] 3 04:46:44 Decreased coughing Active [address], [place], [address] , [facility] 3 11:04:01 Cough Completed 202209/05/2023 Problem Code: R05.8; Problem Code Type: ICD-10; Not Available [facility] 4 05:34:24 Intermittent urinary incontinence Active [address]23 MD [address], [place], [address] , [facility] 18:29:42 Chronic cough Active [address]23 MD [address], [place], [address] , [facility] 18:30:35 Notes:*Problem Name: Colonos copy 2013 - Repeat 2018 *ICD-10 Codes: *Problem Status: inactive *Comments: *Note Date: 08/02/2013 *Problem Name: Race Steward Anticoagulation *Problem Status: inactive *Comments: *Problem Code: V58.61 *Problem Code Type: ICD-9 *Note Date: 06/21/2003 *Problem Name: Frm Smoke Quit 87 *ICD-10 Codes: *Problem Status: inactive *Comments: *Note Date: 11/22/2003 *Problem Name: Post Op Bleeding/hematoma *ICD-10 Codes: *Problem Status: active *Comments: *Note Date: 02/01/2013 *Problem Name: Single Kidney - Left *ICD-10 Codes: *Problem Status: active *Comments: *Note Date: 10/24/2012 *Problem Name: Colonoscopy 2013 - Repeat 2018 *ICD-10 Codes: *Problem Status: inactive *Comments: *Problem Code Type: CPT *Note Date: 08/02/2013 *Problem Name: Aortic Valve Replacement - St Marvin Valve *Problem Status: active *Comments: 11/26/2021 - Comments only - Cameron Patel MD - [facility] - follows with cardiology annually *Problem Code: V42.2 *Problem Code Type: ICD-9 *Note Date: 07/05/2002 Some problems listed in Documents: #[id number], #[id number] could not be added to this patient's chart. Please review these documents and add these problems to the patient's chart manually as needed. Problem Notes None recorded. Procedures Surgical History Date Name Laterality Status Provider Name and Address Organization Details Recorded Time 05/25/20 18 repair of inguinal hernia completed DARRICK Coronado, [facility] 12/06/2023 07:49:10 11/20/19 13 prostatectomy completed DARRICK Coronado [facility] 12/06/2023 07:49:28 Imaging Results None recorded. Procedure Notes None recorded. Medical Equipment None Reported. Allergies No known drug allergies Medications Name Sig Start Date Stop Date Status Note LastModified by Organization Details LastModified Time penicilli n V potassium 250 mg tablet Take 1 tablet by mouth every eight hours for 7-10 days 04/18 completed dentist Not Available Not Available Not Available cyclobenz aprine 10 mg tablet 1 tab 3 times daily as needed for muscle pain/spa sm 09/20 completed Not Available Not Available Not Available amoxicill in 500 mg capsule Take 4 capsule by mouth as directed Take 4 capsules by mouth one hour before dental visit active Not Available Not Available No t Available latanopro st 0.005 % eye drops INSTILL 1 DROP IN EACH EYE EVERY EVENING active Not Available Not Available No t Available prednison e 10 mg tablet 6 tbs for 2d then 5 tabs for 3d, 4 tabs for 3d, 3tabs for 3d, 2 tabs for 3d, then 1 tab for 3d then stop 06/16 completed Not Available Not Available Not Available venlafaxi ne ER 75 mg capsule,e xtended release 24 hr Take 1 capsule by mouth every day active Not Available Not Available No t Available Dilaudid 2 mg tablet 1-2 tabs q4h 04/05 completed Not Available Not Available Not Available doxycycli ne hyclate 100 mg capsule TAKE 1 CAPSULE BY MOUTH TWO TIMES A DAY 09/22 completed Not Available Not Available Not Available Carafate 1 gram tablet 1 gm a.c.and h.s. 05/18 completed Not Available Not Available Not Available atorvasta tin 10 mg tablet Take 1 tablet by mouth every night at bedtime active Not Available Not Available No t Available oxybutyni n chloride ER 10 mg tablet,ex tended release 24 hr TAKE 1 TABLET BY MOUTH DAILY 2023 active Not Available Not Available Not Avai lable azithromy bay 250 mg tablet Take 2 by mouth now, then take 1 by mouth daily x 4 days 10/25 completed Not Available Not Available Not Available benzonata te 200 mg capsule 1 capsule by mouth three times a day As needed for non-prod uctive cough 12/13/ 2022 12/27 /2022 completed Not Available Not Available Not Available warfarin 7.5 mg tablet Take 1 tablet by mouth every other day alternat ing with 5MG as directed based on INR active Not Available Not Available No t Available Levaquin 750 mg tablet Take 1 tab by mouth daily 10/22 completed Not Available Not Available Not Available Effexor XR 37.5 mg capsule,e xtended release 1 TAB daily 08/02 completed Not Available Not Available Not Available prednison e 20 mg tablet TAKE TWO TABLETS BY MOUTH EVERY DAY 09/02 completed Not Available Not Available Not Available penicilli n V potassium 500 mg tablet TAKE ONE TABLET BY MOUTH THREE TIMES A DAY UNTIL GONE 09/02 completed Not Available Not Available Not Available Advair Diskus 100 mcg-50 mcg/dose powder for inhalatio n inh BID 08/02 completed Not Available Not Available Not Available omeprazol e 40 mg capsule,d elayed release Take 1 capsule by mouth twice daily active Not Available Not Available No t Available sildenafi l 100 mg tablet 1 tablet by mouth as needed 02/16 completed #30 for 90 days Not Available Not Available Not Available amoxicill in 500 mg tablet Take 4 tablet as directed 11/26 completed Not Available Not Available Not Available levothyro xine 75 mcg tablet Take 1 tablet by mouth once a day as directed active Not Available Not Available No t Available Aerochamb er MV spacer Use 2017 active Not Available Not Available Not Avai lable Guaiatuss in AC 10 mg-100 mg/5 mL oral liquid Take 1-2 tsp by mouth every six hours as needed for cough 06/16 completed Not Available Not Available Not Available Tylenol 500 mg tablet 2 tabs po q6h prn 2012 active Not Available Not Available Not Avai lable levothyro xine 50 mcg tablet Take 1 tablet by mouth every day 12/30 completed Not Available Not Available Not Available ferrous sulfate 325 mg (65 mg iron) tablet tid po 05/18 completed Not Available Not Available Not Available Cipro 500 mg tablet 1 tab twice daily 04/05 completed Not Available Not Available Not Available warfarin 5 mg tablet Take 1 tablet by mouth every other day alternat ing with 7.5mg or as directed based on INR active Not Available Not Available No t Available Robitussi n A-C 10 mg-100 mg/5 mL oral syrup 5ML Q6H 01/26 completed Not Available Not Available Not Available Advair Diskus 250 mcg-50 mcg/dose powder for inhalatio n Inhale 1 puff by mouth as directed twice daily (stop while using BREZTRI 11/15/23) 02/20 completed Not Available Not Available Not Available Lovenox 80 mg/0.8 mL subcutane ous syringe 80mg subcutan eously bid 2023 active Not Available Not Available Not Avai lable monteluka st 10 mg tablet Take 1 tablet by mouth every day active Not Available Not Available No t Available Lovenox 150 mg/mL subcutane ous syringe Inject 100mg BID until INR therapeu tic 06/16 completed Not Available Not Available Not Available albuterol sulfate HFA 90 mcg/actua tion aerosol inhaler INHALE 2 PUFF BY MOUTH EVERY 4 TO 6 HOURS NEEDED FOR COUGH/ WHEEZING OR FOR SHORTNES S OF BREATH active Not Available Not Available No t Available doxycycli ne hyclate 100 mg tablet 1 TAB twice daily 09/22 completed Not Available Not Available Not Available amoxicill in 875 mg-potass ium clavulana te 125 mg tablet TAKE ONE TABLET BY MOUTH TWICE A DAY FOR 7 DAYS, TAKE WITH FOOD 09/22 completed Not Available Not Available Not Available Tylenol Extra Strength 500 mg tablet 2 tablet by mouth every six hours as needed 2012 active Not Available Not Available Not Avai lable enoxapari n 100 mg/mL subcutane ous syringe 100mg bid starting 5 days prior to procedur e and continui ng up to 5 days post procedur e 11/20 completed Not Available Not Available Not Available Cialis 20 mg tablet Take 1 tablet by mouth once a day as needed use if planning sexual activity within the next 36 hours. 02/16 completed Not Available Not Available Not Available Albuterol Sulfate HFA 90 mcg/Actua tion aerosol inhaler 2 PUFFS q6h 10/05 completed Not Available Not Available Not Available Combivent 2 PUFFS q4-6h 10/28 completed Not Available Not Available Not Available Advair HFA 230 mcg-21 mcg/actua tion aerosol inhaler Inhale 1 puff by mouth twice daily 09/30 completed Not Available Not Available Not Available Symbicort 160 mcg-4.5 mcg/actua tion HFA aerosol inhaler 2 inh BID 09/30 completed Not Available Not Available Not Available budesonid e-formote rol HFA 80 mcg-4.5 mcg/actua tion aerosol inhaler inh twice daily 01/25 completed Not Available Not Available Not Available omeprazol e 20 mg tablet,de layed release Take 1 by mouth BID 12/10 completed Not Available Not Available Not Available AndroGel 20.25 mg/1.25 gram per pump act. (1.62 %) transderm al gel qd 01/26 completed Not Available Not Available Not Available Shingrix (PF) 50 mcg/0.5 mL intramusc ular suspensio n, kit Inject 1/2 ml intramus cularly single dose 11/28 completed Not Available Not Available Not Available Breztri Aerospher e 160 mcg-9mcg- 4.8mcg/ac tuation HFA aerosol inhaler INHALE 2 PUFFS BY MOUTH TWO TIMES A DAY active Not Available Not Available No t Available Breztri Aerospher e 02/23 completed [facility] Not Available Not Available Not Available Vitals Date Recorded Body height Body mass index (BMI) Body weight Oxygen saturation Oxygen saturation in Arterial blood by Pulse oximetry Heart rate Systolic blood pressure Diastolic blood pressure Provider Name and Address Organization Details Last Updated DateTime 4 171.45 cm 30.4 kg/m2 92424.7 g 96 % 96 % 67 /min 104 mm[Hg] 62 mm[Hg] Perfecto Fountain [place] [facility] 13:44:30 Social History Question Answer Notes LastModified by Organizat ion Details LastModified Time Tobacco Smoking Status Former Smoker Perfecto DARRICK Fountain [facility], [facility] 09/22/2023 11:54:06 When Did You Quit Smoking? 16+yearssincel astcisil [email or web address] Information not available 09/22/2023 Date Of Most Recent HSA 02/21/2024 [email or web address] Information not available 02/21/2024 Would You Say That, In General, Your Health Is Good Information not available 02/21/2024 How Often Does Anyone, Including Family, Physically Hurt You? Never [email or web address] Information not available 02/21/2024 How Often Does Anyone, Including Family, Insult Or Talk Down To You? Never [email or web address] Information no t available 02/21/2024 How Often Does Anyone, Including Family, Threaten You With Harm? Never [email or web address] Information not available 02/21/2024 How Often Does Anyone, Including Family, Scream Or Curse At You? Never Information not available 02/21/2024 Within The Past 12 Months, You Worried That Your Food Would Run Out Before You Got Money To Buy More. Never True [email or web address] Information n ot available 02/21/2024 Within The Past 12 Months, The Food You Bought Just Didn't Last And You Didn't Have Money To Get More. Never True [email or web address] Information n ot available 02/21/2024 How Hard Is It For You To Pay For The Very Basics Like Food, Housing, Medical Care, And Heating? Would You Say It Is: Not Hard At All [email or web address] Information not available 02/21/2024 In The Past 12 Months, Has Lack Of Reliable Transportation Kept You From Medical Appointments, Meetings, Work Or From Getting Things Needed For Daily Living? No [email or web address] Information not available 02/21/2024 What Is Your Housing Situation Today? I Have Housing. [email or web address] Information not available 02/21/2024 How Often In The Past Year Have You Used Marijuana (including Smoking, Vaping, Dabbing, Or Edibles)? Never [email or web address] Information not available 02/21/2024 How Often In The Past Year Have You Used Prescription Medications That Were Not Prescribed To You? Never [email or web address] Information n ot available 02/21/2024 How Often In The Past Year Have You Taken Your Own Prescription Medication More Than The Way It Was Prescribed Or For Different Reasons Than Its Intended Purpose? Never [email or web address] Information no t available 02/21/2024 How Often In The Past Year Have You Used Other Drugs (for Example, Heroin, Cocaine, Meth, Salvia, Inhalants)? Never iedifkli01 Information not available 02/21/2024 Have You Ever Used IV Drugs? No [email or web address] Information not available 02/21/2024 During The Past Four Weeks Has Your Physical And Emotional Health Limited Your Social Activities With Family And Friends, Neighbors, Or Groups? Not At All [email or web address] Information not available 02/21/2024 During The Past Four Weeks, Was Someone Available To Help You If You Needed And Wanted Help? (For Example, If You Hardy Very Nervous, Lonely, Or Blue; Got Sick And Had To Stay In Bed; Needed Someone To Talk To; Needed Help With Daily Chores; Or Needed Help Just Taking Care Of Yourself.) Yes- As Much As I Wanted [email or web address] Information not available 02/21/2024 During The Past Four Weeks, What Was The Hardest Physical Activity You Could Do For At Least 2 Minutes? Moderate ezskldqo46 Information not available 02/21/2024 Can You Get To Places Out Of Walking Distance Without Help? (For Example, Can You Travel Alone On Buses Or Taxis, Or Drive Your Own Car?) Yes [email or web address] Information not available 02/21/2024 Can You Go Shopping For Groceries Or Clothes Without Someone? s Help? Yes [email or web address] Information not available 02/21/2024 Can You Prepare Your Own Meals? Yes [email or web address] Information not available 02/21/2024 Can You Do Your Housework Without Help? Yes [email or web address] Information not available 02/21/2024 Because Of Any Health Problems, Do You Need The Help Of Another Person With Your Personal Care Needs Such As Eating, Bathing, Dressing, Or Getting Around The House? No [email or web address] Information not available 02/21/2024 Can You Handle Your Own Money Without Help? Yes Information not available 02/21/2024 Are You Having Difficulties Driving Your Car? No [email or web address] Information no t available 02/21/2024 Do You Always Fasten Your Seat Belt When You Are In A Car? Yes- Usually [email or web address] Information not available 02/21/2024 How Often During The Past Four Weeks Have You Been Bothered By Any Of The Following Problems? Falling Or Dizzy When Standing Up? Never [email or web address] Information not available 02/21/2024 Sexual Problems? Always [email or web address] Informat ion not available 02/21/2024 Trouble Eating Well? Never [email or web address] Information not available 02/21/2024 Teeth Or Denture Problems? Never [email or web address] Information not available 02/21/2024 Problems Using The Telephone? Never [email or web address] Information not available 02/21/2024 Tiredness Or Fatigue? Never [email or web address] Information not available 02/21/2024 Have You Had 2 Or More Falls Or Sustained An Injury With A Fall In The Last Year? No [email or web address] Information no t available 02/21/2024 Do You Have Difficulty With Walking Or Balance? No [email or web address] Information not available 02/21/2024 Do You Currently Use A Hearing Device? No [email or web address] Information not available 02/21/2024 Do You Currently Have Any Trouble With Your Vision? No [email or web address] Information no t available 02/21/2024 Do You Exercise For About 20 Minutes Three Or More Days A Week? Yes- Some Of The Time [email or web address] Information not available 02/21/2024 Are There Any Safety Concerns In Your Home (see Attached CDC Pamphlet)? No [email or web address] Information not available 02/21/2024 How Often Do You Have Trouble Taking Medicines The Way You Have Been Told To Take Them? I Always Take Them As Prescribed Information not available 02/21/2024 How Confident Are You That You Can Control And Manage Most Of Your Health Problems? Very Confident [email or web address] Information not available 02/21/2024 Do You Currently Have Any Difficulty With Your Hearing? No [email or web address] Information not available 02/21/2024 Date Of Most Recent SBINS 02/21/2024 Information not available 02/21/2024 What Was The Date Of Your Most Recent Tobacco Screening? 02/21/2024 [email or web address] Information not available 02/21/2024 What Is Your Current Pack Years? 10-19packyears [email or web address] Information not available 02/21/2024 At What Age Did You Start Smoking Tobacco? 20 Information not available 02/21/2024 How Much Tobacco Do You Smoke? 1 PPD jduvcbxj67 Information not available 02/21/2024 How Many Years Have You Smoked Tobacco? 17 [email or web address] Information not available 02/21/2024 Do You Or Have You Ever Used Any Other Forms Of Tobacco Or Nicotine? No [email or web address] Information not available 02/21/2024 Sex: Male Functional Status None recorded. Mental Status None recorded. Family History Relationship Description Onset Age of this Age Resolved Age Notes Notes:*Problem: Mother at 68 - had arthritis, had aortic valve abnormality also, never repaired. May have of endocarditits Father had esophageal stricture; of a heart attack a week after a stroke in his 80s. No hx of cancers, heart disease, DM. No siblings updated 2017 Medical History No medical history recorded. Immunizations Vaccine Type Date Status Provider Name and Address Organization Details Recorded Time Td (adult), 2 Lf tetanus toxoid, preservative free, adsorbed 11/26/2021 completed Not Available [facility] 08/19/2023 04:09:30 Tdap 12/16/2011 completed Not Available [facility] 04:09:30 zoster live 09/05/2012 completed Not Available [facility] 08/19/2023 04:09:30 Novel [id number], all formulations 10/08/2009 completed Not Available [facility] 08/19/2023 04:09:30 Pneumococcal conjugate PCV 13 07/22/2017 completed Not Available [facility] 08/19/2023 04:09:30 Influenza, high-dose, trivalent, PF 07/04/2019 completed Not Available [facility] 08/19/2023 04:09:31 Td(adult) unspecified formulation 08/08/2008 completed Not Available [facility] 08/19/2023 04:09:31 Td(adult) unspecified formulation 09/09/2007 completed Not Available [facility] 08/19/2023 04:09:31 Influenza, split virus, trivalent, PF 07/15/2015 completed Not Available [facility] 2022 04:09:31 Influenza, split virus, quadrivalent, PF 06/17/2020 completed Not Available [facility] 08/19/2023 04:09:31 Influenza, split virus, quadrivalent, preservative 07/25/2017 completed Not Available [facility] 08/19/2023 04:09:31 zoster recombinant 03/09/2022 completed Not Available [facility] 08/19/2023 04:09:31 Influenza, high-dose, quadrivalent, PF 07/29/2022 completed Not Available [facility] 08/19/2023 04:09:31 Influenza, high-dose, quadrivalent, PF 08/05/2021 completed Not Available [facility] 08/19/2023 04:09:32 COVID-19, mRNA, LNP-S, PF, 100 mcg/0.5mL dose or 50 mcg/0.25mL dose 11/28/2020 completed Not Available [facility] 08/19/2023 04:09:32 COVID-19, mRNA, LNP-S, PF, 100 mcg/0.5mL dose or 50 mcg/0.25mL dose 12/26/2020 completed Not Available [facility] 08/19/2023 04:09:32 COVID-19, mRNA, LNP-S, PF, 100 mcg/0.5mL dose or 50 mcg/0.25mL dose 08/05/2021 completed Not Available [facility] 08/19/2023 04:09:32 COVID-19, mRNA, LNP-S, bivalent, PF, 30 mcg/0.3 mL dose 07/29/2022 completed Not Available [facility] 08/19/20 04:09:32 pneumococcal polysaccharide PPV23 09/19/2001 completed Not Available [facility] 2022 04:09:32 pneumococcal polysaccharide PPV23 10/07/2015 completed Not Available [facility] 2022 04:09:33 influenza, unspecified formulation 11/11/2009 completed Not Available [facility] 08/19/2023 04:09:33 influenza, unspecified formulation 06/13/2012 completed Not Available [facility] 08/19/2023 04:09:33 influenza, unspecified formulation 06/18/2014 completed Not Available [facility] 08/19/2023 04:09:33 influenza, unspecified formulation 07/15/2017 completed Not Available [facility] 08/19/2023 04:09:33 influenza, unspecified formulation 07/16/2010 completed Not Available [facility] 08/19/2023 04:09:33 influenza, unspecified formulation 07/16/2016 completed Not Available [facility] 08/19/2023 04:09:33 influenza, unspecified formulation 07/24/2016 completed Not Available [facility] 08/19/2023 04:09:33 influenza, unspecified formulation 07/30/2013 completed Not Available [facility] 08/19/2023 04:09:34 influenza, unspecified formulation 08/05/2006 completed Not Available [facility] 08/19/2023 04:09:34 influenza, unspecified formulation 08/06/2003 completed Not Available [facility] 08/19/2023 04:09:34 influenza, unspecified formulation 08/08/2008 completed Not Available [facility] 08/19/2023 04:09:34 influenza, unspecified formulation 09/18/2007 completed Not Available [facility] 08/19/2023 04:09:34 SARS-COV-2 (COVID-19) vaccine, UNSPECIFIED 08/30/2023 completed DARRICK Coronado [facility] 02/21/2024 15:13:13 Respiratory syncytial virus (RSV) MAB, unspecified 02/20/2024 completed DARRICK Coronado [facility] 03/01/2024 15:17:47 Past Encounters Encounter ID Performer Location Encounter Start Date Encounter Closed Date Diagnosis/Indication Diagnosis SNOMED-CT Code [id number] CAMERON PATEL MD [address] [address] 02/21/2024 13:30:45 02/21/2024 14:36:28 Adult health examination [id number] Screening for malignant neoplasm of colon 048633357 Anticoagulant therapy 18 9081089 Malignant tumor of prostate 053780209 Prosthetic heart valve in situ 410322089 Uncomplica kandace mild persistent asthma 053426371 Hypothyroidism 96939476 Gastrointe stinal hemorrhage 60251862 Intermitte nt urinary incontinence 972532354 Chronic cough 48653680 Anxiety 62385676 Health Concerns Section Related Observation LastModified by Organization Detai ls LastModified Time None Recorded Concern Status LastModified by Organization Details LastModified Time None Recorded Payers Encounter Date Sequence Insurance Name Policy Number Policy Burns Covered Member ID Burns Member ID Guarantor Name 02/21/2024 1 [id number]/A [place]ANTAGE - PPO) [id number] Sylvain Rodgers [id number] Sylvain Rodgers Notes Date Note Type Note Provider Name and Address Organization Details Recorded Time 02/21/2024 text/html HPI Notes: Frankie here today for a medicare wellness exam CAMERON PATEL MD [address], [place], [address], [facility]. 02/26/2024 07:16:33
--- OUTSIDE RECORDS SUMMARY | 2024-04-20 15:05 | XMS_ITS | Data Portability ---
Author Organization [facility] [place] [place] [address] Care Team Providers Care Butcher Name Role Phone CAMERON PATEL Primary Care Provider HUEY SHANNON Urologist [facility] CARDI[facility] Sales Effectiveness Manager CAMERON PEGUERO Chrome Tanning Drum Operator LOGAN PINA Dentist Assessment Encounter Date Assessment [...] screenings consistent with USPSTF and ACIP guidelines Not available 02/19/2024 10:32:26 Plan of Treatment Reminders Order Date Submit Date Provider Last Modified By Organization Details Last Modified Time Details Appointments Medica re Annual Wellne ss 40 2024 01:30P Esperanza PATEL Not available Not available Not available Lab PT/INR 2022 023 [email or web address] [facility], [address] [place], [address], 09/02/2023 16:56:15 hemogl obin (Hb), finger stick, blood 2022 023 [facility], [address] [place], [address], 09/22/2023 17:14:08 hemogl obin (Hb), finger stick, blood 2023 024 [facility], [address] [place], [address], 02/21/2024 15:17:02 Referral None record ed. Procedures None record ed. Surgeries None record ed. Imaging None record ed. Medication Orders doxycy gorman hyclat e 100 mg tablet 2022 023 [facility], [address] [place], [address], 09/22/2023 12:19:58 Patient TargetsNo targets recorded. Patient Instructions Encounter Date Encounter Id Patient Instructions Last Modified By Organization Details Last Modified Time 09/02/2023 [id number] I will send prescription for doxycycline to [facility] for you to take twice a day for 7 days, and follow up here in 7-10 days. Use albuterol as needed. for INR: 7.5mg x 4 days, 5mg x 3 days, test Tue09/09/23 (will be starting doxycycline) [email or web address] Not available 09/02/2023 16:59:05 02/21/2024 [id number] Has AD's filled out - just needs to have witnessed. sberrian Not available 02/21/2024 14:22:45 Reason for Referral Chrome Tanning Drum Operator Referral for P ersistent cough Referring Physician: Cameron Patel, Family Medicine, Encounter Date: 10/13/2023 Results Created Date Observation Date Name Description Value Unit Range Abnormal Flag LastModifiedBy Organization Detail LastModifiedTime 08/26/2008/26/2023 PT/IN R INR 2.2 2.5-3. 5 abnormal Not Available [facility] [address] [address], [place], [address], 08/26/2023 15:58:50 09/02/20 23 09/02/2023 PT/IN R INR 1.9 Not Available [facility] [address] [place], [address], 09/02/2023 11:32:25 09/22/20 23 09/22/2023 hemog lobin (Hb), finge rstic k, blood HGB 13.1 Not Available [facility] [address] [place], [address], 09/22/2023 12:58:21 10/07/20 23 10/07/2023 home monit oring * INR 3.0 Not Available [facility] [address] [address], [place], [address], 10/07/2023 13:12:13 01/02/20 24 01/02/2024 PT/IN R PT/INR 2.3 2.5-3. 5 abnormal Not Available [facility] [address], [address], 01/02/2024 12:17:48 02/21/20 24 02/21/2024 hemog lobin (Hb), finge rstic k, blood HGB 13.2 g/dL Not Available [facility] [address] [place], [address], 02/21/2024 14:37:34 03/20/20 24 03/20/2024 PT/IN R PT/INR 2.2 2.5-3. 5 abnormal Not Available [facility] [address] [place], [address], 03/20/2024 10:08:42 11/29/19 24 11/29/2023 CT imagi ng repor t Patien t Name: Sylvain Rodgers Unit #: [id number] Loc: DI Orderi ng Provid er: Cameron Peguero Accadalgisa t #: [id number] Status : REG CLI Primar y Care Provid er: Ce Corona M.D. Date of Exam : Sex: M : 1949 Age: 73 Exam(s ) a CT:CT chest wo Exam(s ) CT CHEST WO EXAM: CT CHEST WO CLINIC AL HISTOR Y: CHRONI C COUGH not respon ding to tx,R05 .3. TECHNI QUE: Multi planar recons tructi ons were perfor med. CONTRA ST MATERI AL: None COMPAR OMID: CT CT ABDOME N PELVIS W from 2022 CR XR CHEST 2V PA LATERA L from 2022 FINDIN GS: CHEST: LUNGS: There is a 1.3 by 0.6 cm subple ural solid nodule in the left lower lobe which was not eviden t on 2022. Suspic ious nodule . In additi on, there is some mild patchy ground -glass infilt rate in the left upper lobe and lingul ar segmen t, not associ ated with pleura l effusi on. The opposi te- right lung is clear. There are no pleura l effusi ons on either side. No findin gs in the trache a althou gh some mucus is noted on the left side of the maira . There is no bronch iectas is. MEDIAS TINUM: There is no obviou s hilar nor medias tinal adenop athy. Visual ized thyroi d unrema rkable .Moder ate size hiatal hernia noted. CARDIA C: Sterno dax wires. Heart size upper normal . The diamet er of the ascend ing thorac ic aorta is promin ent, measur ing 4.6 cm. Diamet er of the mid aortic arch is promin ent measur ing 3.1 cm. Diamet er of the descen ding thorac ic aorta is promin ent measur ing 3.4 cm and is also ectati c. VISUAL IZED UPPER ABDOME N:No adrena l masses . IVC filter noted. Spleen size normal . Partia lly includ ed atroph ic right kidney again noted. Small cyst in the superi or aspect of the right hepati c lobe again noted. OSSEOU S: Nonuni on fractu re of the right 10th rib again noted. Also displa dyllan nonuni on fractu re of the adjace nt right 11th rib unchan ged. No new rib fractu res eviden t. No compre ssion fractu res.. IMPRES STEPHENIE: 1. There is a somewh at concer carrie 13 x 6 millim eter solid subple ural slight ly irregu lar nodule now eviden t in the left lower lobe, not previo usly presen t on the upperm ost images of an abdomi nal CT scan perfor med 2022. In additi on, there is some mild patchy infilt rate elsewh ere in the left lung involv ing upper lobe and lingul ar segmen t. No new right lung findin gs and no pleura l effusi ons. No obviou s intrat horaci c adenop athy. Approp riate referr al recomm ended concer carrie nodula r left lower lobe densit y. Also recomm end repeat CT scan in 3 months . 2. Sterno dax wires. Dilate d thorac ic aorta with measur ements as above. Ascend ing thorac ic aorta measur es 4.6 cm. 3. Nonuni on fractu res of the right 10th and 11th ribs. No new fractu res identi fied. No osseou s lesion s. No compre ssion fractu res of thorac ic verteb alba eviden t. Abdomi nal findin gs as above. RADIAT ION DOSE DELIVE RED: 587.23 mGy.cm Total DLP DATA REPOSI TORY: All CT scans at this facili ty are submit kandace to the Nation al Radiol ogy Data Regist ry (NRDR) [...] tion); or iterat koki recons tructi on. 0-0 007: Total DLP = 0.00 mGy-cm Ordere d By: Cameron Peguero CC: ------ ------ ------ ------ ------ ------ ------ ------ ------ ------ ------ ------ ---- Dictat ed By: Ashok Brown M.D. 1633 1633 Transc ribed By: Stephanie NICHOLSON,Vanesa sylwia 163 This is privil eged, confid ential inform ation intend ed only for the provid er named. Any use or distri bution by any person other than this provid er is strict ly prohib ited. If you receiv e this report in error, please notify us immedi sandyly at and return the origin al report to us at the addres s above. Thank- you. [facility] [address], [place], [address] 12/08/2023 17:36:11 12/01/19 24 12/01/2023 PFT, compl ete Pulmon sofia Functi on Test PATIEN T NAME: Sylvain Rodgers UNIT #: [id number] ADMITT ING PROVID ER: Gina Da Silva M.D. ACCOUN T #: [id number] PRIMAR Y CARE PROVID ER: CAMERON CORONA MD DATE OF ADMIT: : 1949 Date of servic e: Time of Servic e: 15:00 Pulmon sofia Functi on Test Result Indica tions: Chroni c cough Interp retati on Spirom etry: There is no airflo w limita tion. There is restri ctive spirom etry. There was a 9% decrea se in FEV1 with admini strati on of 16 mg/mL methac holine . Lung Volume s: There is restri ctive lung diseas e Diffus ion Capaci ty: There is border line low diffus ion Airway Pressu re: Normal airway s resist ance Impres stephenie Ther eis mild restri ctive lung diseas e with a border line diffus ion and a negati ve methac holine . Clinic al Correl ation theref ore is recomm ended. cc: ------ ------ ------ ------ ------ ------ ------ ------ ------ ------ ------ --- Dictat ed by: CAM Caldwell MD,GRANT TTANY E Dictat ed: Time: 1411 Date: 1 415 Date: Date: Transc ribed Date: Transc ribed Time: 1411 By: GARRY This is privil eged, confid ential inform ation, intend ed only for the provid er named. Any use or distri bution by any person other than this provid er is strict ly prohib ited. If you receiv e this report in error, please notify us immedi ately at [phone] and return the origin al report to us at the addres s above. Thank you. [facility] [address], [place], [address] 12/08/2023 17:36:12 02/23/20 24 02/23/2024 CT imagi ng repor t Cherie t Name: Sylvain Rodgers Unit #: [id number] Loc: DI Orderi ng Provid er: Gina Da Silva M.D. Accoun t #: [id number] Status : REG CLI Primar y [...] facili ty are submit kandace to the [facility] al Radiol ogy Data Regist ry [...] ---- Dictat ed By: Ashok Brown M.D. 1723 172 Transc ribed By: Stephanie NICHOLSON,Vanesa sylwia 172 This is privil eged, confid ential inform ation intend ed only for the provid er named. Any use or distri bution by any person other than this provid er is strict ly prohib ited. If you receiv e this report in error, please notify us immedi nicholas at [phone] and return the origin al report to us at the addres s above. Thank- you. librado [facility] [address] [place], [address] 03/01/2024 15:56:36 Result Notes None recorded. Problems Name Status Onset Date Resolution Date Notes Provider Name and Address Organization Details Recorded Time Nicotine dependence Active 2003 Problem Code: Z87.891; Problem Code Type: ICD-10; Not Available [facility] 3 04:46:37 Uncomplicated mild persistent asthma Active 200811/26/2021 - Comments only - Cameron Patel MD - stable on the singulair, advair, prn albuterol. Exercising regularily. Problem Code: J45.30; Problem Code Type: ICD-10; Not Available [facility] 3 04:46:37 Testicular hypofunction Active 2009 Problem Code: E29.1; Problem Code Type: ICD-10; Not Available [facility] 3 04:46:37 Diverticular disease Completed 201210/24/2012 Not Available [facility] 3 04:46:37 Gastroesophage al reflux disease without esophagitis Active 2001 Problem Code: K21.9; Problem Code Type: ICD-10; Not Available [facility] 3 04:46:37 Malignant tumor of prostate Active 201207/26/2017 - Comments only - Cameron Patel MD - will plan on checking a PSA with next blood draw if not checked by urology. Last PSA was in 2015 and <0.3. Not Available [facility] 3 04:46:37 Umbilical hernia Active 201410/07/2015 - Comments only - Cameron Patel MD - deferring surgery for now, will consider it after her retires. He is aware that if he gets acute pain he will need to be seen. Problem Code: K42.9; Problem Code Type: ICD-10; Not Available [facility] 3 04:46:37 Adult health examination Active 201411/15/2022 - Comments only - Cameron Patel MD - He would like a lipid panel done. Follow-up arranged that the fasting level in a few weeks. Problem Code: Z00.00; Problem Code Type: ICD-10; Not Available [facility] 3 04:46:38 Osteoarthritis Active 201412/15/2018 - Comments only - Jeremiah Tsang - Advised him that he can take up to Tylenol 500 mg tablets TID. Problem Code: M19.90; Problem Code Type: ICD-10; Not Available [facility] 3 04:46:38 Anticoagulant therapy Active 201511/15/2022 - Comments only - Cameron Patel MD - INR elevated today due to current antibiotic use for dental infection. Instructed below in terms of warfarin dosing. We will continue to follow closely. Not Available [facility] 3 04:46:38 Dyspnea Completed 201510/22/2016 Problem Code: R06.02; Problem Code Type: ICD-10; Not Available [facility] 3 04:46:38 History of blood disorder Active 2015 Not Available [facility] 3 04:46:38 Gastritis Active 201511/15/2022 - Comments only - Cameron Patel MD - With history of a GI bleed. He now is on omeprazole 40 mg twice daily, remain asymptomatic . He does monitor for any change in bowels. Problem Code: K29.70; Problem Code Type: ICD-10; Not Available [facility] 3 04:46:38 Hypothyroidism Active 201511/15/2022 - Comments only - Cameron Patel MD - Due for TSH/free T4. He will come in for fasting blood work as below in a few weeks. 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 Problem Code: F41.8; Problem Code Type: ICD-10; Not Available [facility] 3 04:46:39 Prosthetic heart valve in situ Active 201611/15/2022 - Comments only - Cameron Patel MD - , Clinically remaining stable. He does follow with cardiology. Problem Code: Z95.2; Problem Code Type: ICD-10; Not Available [facility] 3 04:46:39 Mild intermittent asthma Active 201711/22/2020 - Comments only - Cameorn Patel MD - well controlled on the singulair and prn albuterol (rarely needs) Problem Code: J45.20; Problem Code Type: ICD-10; Not Available [facility] 3 04:46:39 Erectile dysfunction following radical prostatectomy Active 2017 Problem Code: N52.31; Problem Code Type: ICD-10; Not Available [facility] 3 04:46:39 Pre-surgery evaluation Active 2017 Problem Code: Z01.818; Problem Code Type: ICD-10; Not Available [facility] 3 04:46:39 Disorder of kidney and/or ureter Active 201811/26/2021 - Comments only - Cameron Patel MD - with single kidney - will check a BMP. Problem Code: N28.9; Problem Code Type: ICD-10; Not Available [facility] 3 04:46:40 Pain in left foot Active 2019 Problem Code: M79.672; Problem Code Type: ICD-10; Not Available [facility] 3 04:46:40 Hyperglycemia Active 2019 Problem Code: R73.9; Problem Code Type: ICD-10; Not Available [facility] 3 04:46:40 Screening for malignant neoplasm of colon Active 2021 Problem Code: Z12.11; Problem Code Type: ICD-10; Not Available [facility] 3 04:46:40 Erythema Active 202211/15/2022 - Comments only - Cameron Patel MD - Involving the perirectal area. Currently being treated with exse-cye-wfw nter antifungals which do not seem to be helping significantl y. They do have Lotrisone at home. I stated they can go ahead and start using that pending culture results that I took. Problem Code: L53.9; Problem Code Type: ICD-10; Not Available [facility] 3 04:46:40 Gastrointestin al hemorrhage Active 2022 Problem Code: K92.2; Problem Code Type: ICD-10; Not Available [facility] 3 04:46:40 Acute posthemorrhagi c anemia Active 2022 Problem Code: D62; Problem Code Type: ICD-10; Not Available [facility] 3 04:46:41 Cardiac arrhythmia Active 2022 Problem Code: I49.9; Problem Code Type: ICD-10; Not Available [facility] 3 04:46:41 Diaphragmatic hernia Active 2022 Problem Code: K44.9; Problem Code Type: ICD-10; Not Available [facility] 3 04:46:41 Diverticula of intestine Active 2022 Problem Code: K57.90; Problem Code Type: ICD-10; Not Available [facility] 3 04:46:41 Reduced libido Completed 200208/08/2018 Not Available [facility] 3 04:46:41 Facial swelling Completed 201608/08/2018 Not Available [facility] 3 04:46:41 Cellulitis Completed 201608/08/2018 Problem Code: L03.90; Problem Code Type: ICD-10; Not Available [facility] 3 04:46:42 Alcohol dependence Completed 201511/26/2021 Problem Code: F10.20; Problem Code Type: ICD-10; Not Available [facility] 3 04:46:42 Anemia Completed 201509/27/2016 Problem Code: D64.9; Problem Code Type: ICD-10; Not Available [facility] 3 04:46:42 Testosterone level below reference range Completed 200907/06/2023 Not Available [facility] 3 04:46:42 Pneumonia Completed 201708/08/2018 Problem Code: J18.9; Problem Code Type: ICD-10; Not Available [facility] 3 04:46:42 Dyspnea Completed 201505/18/2017 Problem Code: R06.02; Problem Code Type: ICD-10; Not Available [facility] 3 04:46:43 Long-term current use of anticoagulant Completed 201411/12/2022 Problem Code: Z79.01; Problem Code Type: ICD-10; Not Available [facility] 3 04:46:43 Hypothyroidism Completed 201111/26/2021 Problem Code: 244.9; Problem Code Type: ICD-9; Not Available [facility] 3 04:46:43 Asthma Completed 200807/06/2023 07/26/2017 - Comments only - Cameron Patel MD - stable on the singulair, symbicort (I suggested that he may try 1 puff bid instead of 2 bid), occasional ventolin use Problem Code: 493.90; Problem Code Type: ICD-9; Not Available [facility] 3 04:46:43 Partial edentulism Completed 201911/26/2021 Problem Code: K08.499; Problem Code Type: ICD-10; Not Available [facility] 3 04:46:43 Gastroesophage al reflux disease Completed 200107/06/2023 10/07/2015 - Comments only - Cameron Patel MD - well controlled on omeprazole Not Available [facility] 3 04:46:44 Cough Completed 201708/08/2018 Problem Code: R05; Problem Code Type: ICD-10; Not Available [facility] 3 04:46:44 Decreased coughing Active 2022 CAMERON PATEL MD [address], [place], [address] , [facility]. 3 11:04:01 Cough Completed 202209/05/2023 Problem Code: R05.8; Problem Code Type: ICD-10; Not Available [facility] 4 05:34:24 Intermittent urinary incontinence Active [address], [facility] [address] , [facility] 18:29:42 Chronic cough Active [address], [facility] [address] , [facility] 18:30:35 Notes:*Problem Name: Colonos copy 2013 - Repeat 2018 *ICD-10 Codes: *Problem Status: inactive *Comments: *Note Date: 08/02/2013 *Problem Name: Sole Buffer Anticoagulation *Problem Status: inactive *Comments: *Problem Code: [...] only - Cameron Patel MD - stable - follows with cardiology annually *Problem Code: V42.2 *Problem Code Type: ICD-9 *Note Date: 07/05/2002 Some problems listed in Documents: #[id number], #[id number] could not be added to this patient's chart. Please review these documents and add these problems to the patient's chart manually as needed. Problem Notes None recorded. Procedures Surgical History Date Name Laterality Status Provider Name and Address Organization Details Recorded Time 05/25/20 18 repair of inguinal hernia completed DARRICK Coronado, [facility] 12/06/2023 07:49:10 11/20/19 13 prostatectomy completed DARRICK Coronado, [facility] 12/06/2023 07:49:28 Imaging Results Imaging Date Name Status LastModified by [facility] Details LastModified Time 11/29/2023 CT imaging report completed [address] [place], [address] 12/08/2023 17:36:11 12/01/2023 PFT, complete completed [address] [place], [address] 12/08/2023 17:36:12 02/23/2024 CT imaging report completed [address] [place], [address] 03/01/2024 15:56:36 Procedure Notes None recorded. Medical Equipment None [...] day As needed for non-prod uctive cough 10/05 completed Not Available Not Available Not [...] saturation in Arterial blood by Pulse oximetry Inhaled oxygen concentration Heart rate Body temperature Systolic blood pressure Diastolic blood pressure Provider Name and Address Organization Details Last Updated DateTime 3 171.45 cm 30.9 kg/m2 61292.9 1 g 98 % 98 % 98 % 88 /min 97.9 [degF] 108 mm[Hg] 68 mm[Hg] Caterina bryant LPN [facility] 3 10:57:19 Date Recorded Body height Body mass index (BMI) Body weight Oxygen saturation Oxygen saturation in Arterial blood by Pulse oximetry Heart rate Systolic blood pressure Diastolic blood pressure Provider Name and Address Organization Details Last Updated DateTime 3 171.45 cm 29.9 kg/m2 11096.9 2 g 99 % 99 % 80 /min 114 mm[Hg] 78 mm[Hg] Perfecto Fountain MA [facility] 3 11:55:55 Date Recorded Body height Body mass index (BMI) Body weight Oxygen saturation Oxygen saturation in Arterial blood by Pulse oximetry Heart rate Systolic blood pressure Diastolic blood pressure Provider Name and Address Organization Details Last Updated DateTime 4 171.45 cm 30.4 kg/m2 96486.7 g 96 % 96 % 67 /min 104 mm[Hg] 62 mm[Hg] Perfecto Fountain MA [facility] 4 13:44:30 Social History Question Answer Notes LastModified by Organizat ion Details LastModified Time Tobacco Smoking Status Former Smoker PerfectoDARRICK Ceballos, [facility]. 09/22/2023 11:54:06 When Did You Quit Smoking? 16+yearssinalex [email or web address] Information not available 09/22/2023 Date Of Most Recent HSA 02/21/2024 [email or web address] Information not available 02/21/2024 Would You Say That, In General, Your Health Is Good [email or web address] Information not available 02/21/2024 How Often Does Anyone, Including Family, Physically Hurt You? Never [email or web address] Information not available 02/21/2024 How Often Does Anyone, Including Family, Insult Or Talk Down To You? Never Information no t available 02/21/2024 How Often Does Anyone, Including Family, Threaten You With Harm? Never [email or web address] Information not available 02/21/2024 How Often Does Anyone, Including Family, Scream Or Curse At You? Never [email or web address] Information not available 02/21/2024 Within The Past 12 Months, You Worried That Your Food Would Run Out Before You Got Money To Buy More. Never True [email or web address] Information n ot available 02/21/2024 Within The Past 12 Months, The Food You Bought Just Didn't Last And You Didn't Have Money To Get More. Never True Information n ot available 02/21/2024 How Hard Is It For You To Pay For The Very Basics Like Food, Housing, Medical Care, And Heating? Would You Say It Is: Not Hard At All [email or web address] Information not available 02/21/2024 In The Past 12 Months, Has Lack Of Reliable Transportation Kept You From Medical Appointments, Meetings, Work Or From Getting Things Needed For Daily Living? No [email or web address] Information not available 02/21/2024 What Is Your Housing Situation Today? I Have Housing. [email or web address] Information not available 02/21/2024 How Often In The Past Year Have You Used Marijuana (including Smoking, Vaping, Dabbing, Or Edibles)? Never [email or web address] Information not available 02/21/2024 How Often In The Past Year Have You Used Prescription Medications That Were Not Prescribed To You? Never [email or web address] Information n ot available 02/21/2024 How Often In The Past Year Have You Taken Your Own Prescription Medication More Than The Way It Was Prescribed Or For Different Reasons Than Its Intended Purpose? Never Information no t available 02/21/2024 How Often In The Past Year Have You Used Other Drugs (for Example, Heroin, Cocaine, Meth, Salvia, Inhalants)? Never [email or web address] Information not available 02/21/2024 Have You Ever Used IV Drugs? No [email or web address] Information not available 02/21/2024 During The Past Four Weeks Has Your Physical And Emotional Health Limited Your Social Activities With Family And Friends, Neighbors, Or Groups? Not At All [email or web address] Information not available 02/21/2024 During The Past Four Weeks, Was Someone Available To Help You If You Needed And Wanted Help? (For Example, If You [place] Very Nervous, Lonely, Or Blue; Got Sick And Had To Stay In Bed; Needed Someone To Talk To; Needed Help With Daily Chores; Or Needed Help Just Taking Care Of Yourself.) Yes- As Much As I Wanted [email or web address] Information not available 02/21/2024 During The Past Four Weeks, What Was The Hardest Physical Activity You Could Do For At Least 2 Minutes? Moderate [email or web address] Information not available 02/21/2024 Can You Get To Places Out Of Walking Distance Without Help? (For Example, Can You Travel Alone On Buses Or Taxis, Or Drive Your Own Car?) Yes [email or web address] Information not available 02/21/2024 Can You Go Shopping For Groceries Or Clothes Without Someone? s Help? Yes [email or web address] Information not available 02/21/2024 Can You Prepare Your Own Meals? Yes Information not available 02/21/2024 Can You Do Your Housework Without Help? Yes [email or web address] Information not available 02/21/2024 Because Of Any Health Problems, Do You Need The Help Of Another Person With Your Personal Care Needs Such As Eating, Bathing, Dressing, Or Getting Around The House? No Information not available 02/21/2024 Can You Handle Your Own Money Without Help? Yes [email or web address] Information not available 02/21/2024 Are You Having Difficulties Driving Your Car? No Information no t available 02/21/2024 Do You Always Fasten Your Seat Belt When You Are In A Car? Yes- Usually [email or web address] Information not available 02/21/2024 How Often During The Past Four Weeks Have You Been Bothered By Any Of The Following Problems? Falling Or Dizzy When Standing Up? Never [email or web address] Information not available 02/21/2024 Sexual Problems? Always [email or web address] Informat ion not available 02/21/2024 Trouble Eating Well? Never [email or web address] Information not available 02/21/2024 Teeth Or Denture Problems? Never [email or web address] Information not available 02/21/2024 Problems Using The Telephone? Never Information not available 02/21/2024 Tiredness Or Fatigue? Never [email or web address] Information not available 02/21/2024 Have You Had 2 Or More Falls Or Sustained An Injury With A Fall In The Last Year? No [email or web address] Information no t available 02/21/2024 Do You Have Difficulty With Walking Or Balance? No [email or web address] Information not available 02/21/2024 Do You Currently Use A Hearing Device? No [email or web address] Information not available 02/21/2024 Do You Currently Have Any Trouble With Your Vision? No [email or web address] Information no t available 02/21/2024 Do You Exercise For About 20 Minutes Three Or More Days A Week? Yes- Some Of The Time [email or web address] Information not available 02/21/2024 Are There Any Safety Concerns In Your Home (see Attached [facility] Pamphlet)? No [email or web address] Information not available 02/21/2024 How Often Do You Have Trouble Taking Medicines The Way You Have Been Told To Take Them? I Always Take Them As Prescribed [email or web address] Information not available 02/21/2024 How Confident Are You That You Can Control And Manage Most Of Your Health Problems? Very Confident [email or web address] Information not available 02/21/2024 Do You Currently Have Any Difficulty With Your Hearing? No Information not available 02/21/2024 Date Of Most Recent SBINS 02/21/2024 [email or web address] Information not available 02/21/2024 What Was The Date Of Your Most Recent Tobacco Screening? 02/21/2024 [email or web address] Information not available 02/21/2024 What Is Your Current Pack Years? 10-19packyears Information not available 02/21/2024 At What Age Did You Start Smoking Tobacco? 20 [email or web address] Information not available 02/21/2024 How Much Tobacco Do You Smoke? 1 PPD [email or web address] Information not available 02/21/2024 How Many Years Have You Smoked Tobacco? 17 [email or web address] Information not available 02/21/2024 Do You Or Have You Ever Used Any Other Forms Of Tobacco Or Nicotine? No Information not available 02/21/2024 Sex: Male Functional [...] preservative free, adsorbed 11/26/2021 completed Not Available [facility] 08/19/2023 04:09:30 Tdap 12/16/2011 completed Not Available [facility] 04:09:30 zoster live 09/05/2012 completed Not Available [facility] 08/19/2023 04:09:30 Novel [id number], all formulations 10/08/2009 completed Not Available [facility] 08/19/2023 04:09:30 Pneumococcal conjugate PCV 13 07/22/2017 completed Not Available [facility] 08/19/2023 04:09:30 Influenza, high-dose, trivalent, PF 07/04/2019 completed Not Available [facility] 08/19/2023 04:09:31 Td(adult) unspecified formulation 08/08/2008 completed Not Available [facility] 08/19/2023 04:09:31 Td(adult) unspecified formulation 09/09/2007 completed Not Available [facility] 08/19/2023 04:09:31 Influenza, split virus, trivalent, PF 07/15/2015 completed Not Available [facility] 2022 04:09:31 Influenza, split virus, quadrivalent, PF 06/17/2020 completed Not Available [facility] 08/19/2023 04:09:31 Influenza, split virus, quadrivalent, preservative 07/25/2017 completed Not Available [facility] 08/19/2023 04:09:31 zoster recombinant 03/09/2022 completed Not Available [facility] 08/19/2023 04:09:31 Influenza, high-dose, quadrivalent, PF 07/29/2022 completed Not Available [facility] 08/19/2023 04:09:31 Influenza, high-dose, quadrivalent, PF 08/05/2021 completed Not Available [facility] 08/19/2023 04:09:32 COVID-19, mRNA, LNP-S, PF, 100 mcg/0.5mL dose or 50 mcg/0.25mL dose 11/28/2020 completed Not Available [facility] 08/19/2023 04:09:32 COVID-19, mRNA, LNP-S, PF, 100 mcg/0.5mL dose or 50 mcg/0.25mL dose 12/26/2020 completed Not Available [facility] 08/19/2023 04:09:32 COVID-19, mRNA, LNP-S, PF, 100 mcg/0.5mL dose or 50 mcg/0.25mL dose 08/05/2021 completed Not Available [facility] 08/19/2023 04:09:32 COVID-19, mRNA, LNP-S, bivalent, PF, 30 mcg/0.3 mL dose 07/29/2022 completed Not Available [facility] 08/19/20 04:09:32 pneumococcal polysaccharide PPV23 09/19/2001 completed Not Available [facility] 2022 04:09:32 pneumococcal polysaccharide PPV23 10/07/2015 completed Not Available [facility] 2022 04:09:33 influenza, unspecified formulation 11/11/2009 completed Not Available [facility] 08/19/2023 04:09:33 influenza, unspecified formulation 06/13/2012 completed Not Available [facility] 08/19/2023 04:09:33 influenza, unspecified formulation 06/18/2014 completed Not Available [facility] 08/19/2023 04:09:33 influenza, unspecified formulation 07/15/2017 completed Not Available [facility] 08/19/2023 04:09:33 influenza, unspecified formulation 07/16/2010 completed Not Available [facility] 08/19/2023 04:09:33 influenza, unspecified formulation 07/16/2016 completed Not Available [facility] 08/19/2023 04:09:33 influenza, unspecified formulation 07/24/2016 completed Not Available [facility] 08/19/2023 04:09:33 influenza, unspecified formulation 07/30/2013 completed Not Available [facility] 08/19/2023 04:09:34 influenza, unspecified formulation 08/05/2006 completed Not Available [facility] 08/19/2023 04:09:34 influenza, unspecified formulation 08/06/2003 completed Not Available [facility] 08/19/2023 04:09:34 influenza, unspecified formulation 08/08/2008 completed Not Available [facility] 08/19/2023 04:09:34 influenza, unspecified formulation 09/18/2007 completed Not Available [facility] 08/19/2023 04:09:34 SARS-COV-2 (COVID-19) vaccine, UNSPECIFIED 08/30/2023 completed DARRICK Coronado [facility] 02/21/2024 15:13:13 Respiratory syncytial virus (RSV) MAB, unspecified 02/20/2024 completed DARRICK Coronado [facility] 03/01/2024 15:17:47 Past Encounters Encounter ID Performer Location Encounter Start Date Encounter Closed Date Diagnosis/Indication Diagnosis SNOMED-CT Code [id number] ANDI GALICIA-DR [facility], [facility] [address] 09/02/2023 10:38:42 09/02/2023 11:31:34 Anticoagulant therapy [id number] Persistent cough 0049597 02 [id number] CAMERON PATEL MD [address] [address] 09/22/2023 11:49:05 09/22/2023 12:32:20 Anemia 166611605 Decreased coughing 24034 585 [id number] CAMERON PATEL MD [address] [address] 02/21/2024 13:30:45 02/21/2024 14:36:28 Adult health examination [id number] Screening for malignant neoplasm of colon 563738501 Anticoagulant therapy 18 3799368 Malignant tumor of prostate 000877268 Prosthetic heart valve in situ 952283069 Uncomplica kandace mild persistent asthma 360677987 Hypothyroidism 35878957 Gastrointe stinal hemorrhage 05353567 Intermitte nt urinary incontinence 167705720 Chronic cough 33517238 Anxiety 81995028 Health Concerns Section Related Observation LastModified by Organization Detai ls LastModified Time None Recorded Concern Status LastModified by Organization Details LastModified Time None Recorded Advance Directives Directive None Recorded Payers Encounter Date Sequence Insurance Name Policy Number Policy Burns Covered Member ID Burns Member ID Guarantor Name 09/02/2023 1 [place] DVANTAGE - PPO) [id number] Sylvain Ramirezyes [id number] Sylvain Ramirezyes 09/22/2023 1 [place] - [place]) [id number] Sylvain Ramirezyes [id number] [facility] 02/21/2024 1 [place] - [place]) [id number] Sylvain Ramirezyes [id number] 38 Sylvain Ramirezyes Notes Date Note Type Note Provider Name and Address Organization Details Recorded Time 09/02/2023 text/html HPI Notes: Cough Reported by patient. Quality: productive Severity: improving Duration: intermittent; subacute (3-8 weeks) Associated Symptoms: no fever; no chills; no chest pain; no chest wall tenderness; no shortness of breath; sputum production; no muscle pain Seen at [facility] 08/15/23 for cough x 3 weeks and treated for asthma flare with prednisone 40mg po qd x 5d. CXR 08/15/23 showed no acute findings. He used albuterol q6h when cough was at its worst, has not felt he has needed it for the past 2 weeks. Did feel it helped then. Currently taking Rubitussin DM at hs, and during the day if he thinks of it. Overall feels he is coughing less, but does still experience deep productive cough, especially with exertion and when he lies down. Denies pain, nasal or sinus congestion, fevers/chills, SOB. ANDI CAVANAUGH, [employer]-BC [address], [place], [address], [facility], [facility]. 09/02/2023 17:01:48 09/22/2023 text/html HPI Notes: Frankie here today for f/u of recent bronchitis MD [address], [place], [address], [facility], [facility]. 09/26/2023 11:05:04 02/21/2024 text/html HPI Notes: Frankie here today for a medicare wellness exam MD [address], [place], [address], [facility], [facility]. 02/26/2024 07:16:33
--- OUTSIDE RECORDS SUMMARY | 2024-04-20 15:06 | XMS_ITS | Encounter Summary ---
Author Organization [facility] [place] [address] Care Team Providers Care Window/Distribution Clerk Name Role Phone Farnaz Pineda MD Primary Care Provider [phone] Encounter Details Date Type Department Care Team (Latest Contact Info) Description 10/12/2022 Travel Social History Tobacco Use Types Packs/Day Years [...] on file Sexual Orientation Not on file documented as of this encounter Plan of Treatment Not on file documented as of this encounter Visit Diagnoses Not on filedocumented in this encounter Care Teams Window/Distribution Clerk Relationship Specialty Start Date End Date Farnaz Pineda MD [address] [place] [address] PCP - General 10/26/12 documented as of this encounter
--- OUTSIDE RECORDS SUMMARY | 2024-04-20 15:06 | XMS_ITS | Encounter Summary ---
Author Organization [facility] [place] [address] Care Team Providers Care Global Director Air And Climate Change Name Role Phone Farnaz Pineda MD Primary Care Provider [phone] Encounter Details Date Type Department Care Team (Late st Contact Info) Description 03/07/2013 9:05 AM EDT [place] [id number] Ross Madrid MD [facility] [place] [address] Prostate cancer (Primary Dx) Discharge Disposition: Home Social History Tobacco Use Types Packs/Day Years [...] on file documented as of this encounter Progress Notes * Ross Madrid MD - 03/07/2013 5:35 PM EDT Nursing only documented in this encounter Plan of Treatment Not on file documented as of this encounter Visit Diagnoses Diagnosis Prostate cancer- Primary Malignant neoplasm of prostate documented in this encounter Care Teams Global Director Air And Climate Change Relationship Specialty Start Date End Date Farnaz Pineda MD [address] [place] [address] PCP - General 10/26/12 documented as of this encounter
--- OUTSIDE RECORDS SUMMARY | 2024-04-20 15:06 | XMS_ITS | Encounter Summary ---
Author Organization [facility] [place] [address] Care Team Providers Care Social Media Job Titles Name Role Phone Farnaz Pineda MD Primary Care Provider [phone] Encounter Details Date Type Department Care Team (Late st Contact Info) Description 09/13/2013 12:30 PM EST Office [place] [phone] Ross Madrid MD [facility] [place] [address] Prostate cancer (Primary Dx) Discharge Disposition: Home [...] on file documented as of this encounter Last Filed Vital Signs Vital Sign Reading Time Taken Comments Blood Pressure 134/85 09/13/2013 12:56 PM EST Pulse 84 09/13/2013 12:56 PM EST Temperature - - Respiratory Rate 18 09/13/2013 12:56 PM EST Oxygen Saturation - - Inhaled Oxygen Concentration - - Weight 95.7 kg (211 lb) 09/13/2013 12:56 PM EST Height 172.7 cm (5' 8) 09/13/2013 12:56 PM EST Body Mass Index 32.08 09/13/2013 12:56 PM EST documented in this encounter Progress Notes * Ross Madrid MD - 09/13/2013 12:53 PM EST Mr. Rodgers follows up today with a complex history. He has a history of clinically high risk prostate cancer (biopsy Ringgold 4+5=9, PSA 7.1, cT1c). He underwent RALRP/PLND in 11/22. 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 He also developed an adjacent pelvic abscess that was percutaneously drained.This cavity healed and his womack was ultimately removed. 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 His path revealed pT3a [place] 3+4=7 disease with tertiary 5, negative margins, negative LN. Today he feels well. His urinary control has improved substantially and he uses a pad per day. Denies gross hematuria. No recurrent erections but +sensitivity. Has tried viagra without effect. Interested in injection therapy after the 1 year point if no ability to penetrate. His last PSA was <0.03 in 06/22. Today his PSA is <0.03 as well. Exam: S NTND No CVAT A: Higher risk prostate cancer is MADI Stress incontinence is improving Erectile dysfunction P: PSA in 3 months; if undetectable, transition to q6 month exams Discussed sudheer sphincter prior to activities (e.g. Rising, lifting) that lead to leakage, managing volume intake, timed voiding etc. Discussed the option of injection therapy for ED; reviewed that on coumadin there is increased riskof bleeding but this is still feasible; he desires to wait until our next visit to initiate this, depending on his interval progress; we discussed that he did have a non-nerve sparing procedure thus the likelihood of a significant erectile recovery is low His questions were answered in detail. 16 of 17 min spent in counseling and coordination of care. documented in this encounter Plan of Treatment Not on file documented as of this encounter Procedures Procedure Name Priority Date/Time Associated Diagnosis Comments PSA (ULTRASENSITIVE) STAT 09/13/2013 11:54 AM EST Prostate cancer documented in this encounter Results * PSA (09/13/2013 11:54 AM EST) PSA Total (Ultrasensitiv e) <0.03 0.00 - 4.00 ng/mL [facility] specimen (specimen) 09/13/2013 11:54 AM EST 09/13/2013 12:08 PM EST Narrative Resulting Agency Comment Spec In Lab Ross Madrid MD CHEMISTRY ORDERABLES [facility] documented in this encounter Visit Diagnoses Diagnosis Prostate cancer- Primary Malignant neoplasm of prostate documented in this encounter Care Teams Social Media Job Titles Relationship Specialty Start Date End Date Farnaz Pineda MD [address] [place] [address] PCP - General 10/26/12 documented as of this encounter
--- OUTSIDE RECORDS SUMMARY | 2024-04-20 15:06 | XMS_ITS | Encounter Summary ---
Author Organization [facility] [place] [address] Care Team Providers Care Implementation Coordinator Name Role Phone Farnaz Pineda MD Primary Care Provider [phone] Encounter Details Date Type Department Care Team (Latest Contact Info) Description 01/26/2016 2:00 PM EDT Laboratory [place] [address] Malignant neoplasm of prostate Social History Tobacco Use Types Packs/Day Years [...] Date/Time Associated Diagnosis Comments PSA (ULTRASENSITIVE) STAT 01/26/2016 2:09 PM EDT Malignant neoplasm of prostate documented in this encounter Results * PSA (01/26/2016 2:09 PM EDT) PSA Total (Ultrasensitiv e) <0.03 0.00 - 4.00 ng/mL [facility] Blood specimen (specimen) 01/26/2016 2:09 PM EDT 01/26/2016 2:30 PM EDT Narrative Resulting Agency Comment Spec In Lab Ross Madrid MD CHEMISTRY ORDERABLES [facility] [place] [address] documented in this encounter Visit Diagnoses Diagnosis Malignant neoplasm of prostate documented in this encounter Care Teams Implementation Coordinator Relationship Specialty Start Date End Date Farnaz Pineda MD [address] [place] [address] PCP - General 10/26/12 documented as of this encounter
--- OUTSIDE RECORDS SUMMARY | 2024-04-20 15:06 | XMS_ITS | Encounter Summary ---
Author Organization [facility] [place] [address] Care Team Providers Care Graduate Assistant Athletic Trainer Name Role Phone Farnaz Pineda MD Primary Care Provider [phone] Reason for Visit * Physical Therapy (Routine) - Closed Specialty Diagnoses / Procedures Referred By Berta tavera Referred To Contact Physical Therapy Diagnoses SHELDON (stress urinary incontinence), male Bartolome Pike MD [facility] [place] [address] [facility] [address] [place] [address] Referral ID Status Reason Start Date Expiration Date V isits Requested Visits Authorized [id number] Closed Evaluate and Treat 03/18/2022 03/18/2023 100 100 Encounter Details Date Type Department Care Team (Late st Contact Info) Description 10/19/2022 8:00 AM EST Office Visit Physical Therapy at [address] [place] [address] Alida Jacob, PT [facility] PHYSICAL MEDICINE & [place] [address] Muscle spasm Social History Tobacco Use Types Packs/Day Years [...] as of this encounter Progress Notes * Alida Jacob, PT - 10/19/2022 8:00 AM EST PHYSICAL THERAPY Progress Note: PELVIC FLOOR MALE Date of Exam/First Treatment: 10/19/2022 Date of onset: 10 years Referring Provider: Bartolome Pike MD Primary Insurance: Payor: [employer] [place] MEDICARE / Plan: [place] [employer] / Product Type: *No Product type* / Diagnosis and Pertinent Co-morbidities affecting Plan of Care: ICD-10-CM 1. Muscle spasm M62.838 Medicare Certification period 10/05/22-10/19/22 Time code time: 45 min Total treatment time: 45 min S: Feeling 70-80 % improved. Doing the exercises daily. Improved redness to perianal area. O: SEMG readings with internal electrode: Position of Exercise Rest Quick Flick Long Hold Supine 5mv decreased to 4mv with breathing and hip flexor release 60mv 20mv for 5sec with fatigue Sitting mv mv mv Standing Therex- Performed pelvic floor relaxation in supine Provided and reviewed new strengthening for hips and abds -bridging with band for abduction -abdominal stabilization with bug and bicycle Manual therapy: pelvic floor rectally - tone 3/5 with some trigger points colonic massage Diaphragm breathing and release A: The patient has made improvements with less SHELDON and less redness of perianal area. The patient would benefit from continued strengthening for stabilization and glutes. He will also benefit from continued work on endurance for the pelvic floor. Patient has good use of kegel with poor relaxation. Will cont to focus on relaxation techniques and massage at home. Met STGs and progressing towards LTGs on his own. P: DC physical therapy for relaxation and manual work at home GOALS: Goals: Short term goals (4 weeks) 1. Patient to be indep in the performance of a home program of pelvic floor muscle exercises on a daily basis. 2. Patient will demonstrate a decrease in pelvic floor muscle resting rate from 30mv to 10mv on SEMG with int sensor.-met 3. Patient to complete self massage every day.-met Patient's skin at perineum will no longer be red by using zinc oxide every day -met Goals: USP goals (3 months) 1. Patient to be independent with ongoing self management. 2. Patient will have decreased number of SHELDON by 25%.-met 3. ADL???s not limited by UI, urgency or frequency. documented in this encounter Plan of Treatment Not on file documented as of this encounter Procedures Procedure Name Priority Date/Time Associated Diagnosis Comments PT PLAN OF CARE CERT/RE-CERT Routine 10/19/2022 9:11 AM EST Muscle spasm documented in this encounter Visit Diagnoses Diagnosis Muscle spasm Spasm of muscle documented in this encounter Care Teams Graduate Assistant Athletic Trainer Relationship Specialty Start Date End Date Farnaz Pineda MD [address] [place] [address] PCP - General 10/26/12 documented as of this encounter
--- OUTSIDE RECORDS SUMMARY | 2024-04-20 15:06 | XMS_ITS | Encounter Summary ---
Author Organization [place] [address] Care Team Providers Care Supervisor Precision Optical Elements Name Role Phone Farnaz Pineda MD Primary Care Provider [phone] Encounter Details Date Type Department Care Team (Late st Contact Info) Description 02/26/2021 [place] [address] Elaina Ortiz, RN Malignant neoplasm of prostate Social History Tobacco [...] on file documented as of this encounter Results * PSA (Ultrasensitive) (02/26/2021 2:31 PM EDT) PSA Total (Ultrasensitive ) <0.01 0.00 - 4.00 ng/mL [facility] Comment: PLEASE NOTE: The above reference interval is intended for healthy males with an intact prostate. Values within this reference interval may indicate recurrence in men who have undergone radical prostatectomy. Blood 02/26/2021 2:31 PM EDT 02/26/2021 3:00 PM EDT Narrative Resulting Agency Comment Spec In Lab Leonardo Barrios MD CHEMISTRY ORDERABL ES [facility] [place] [address] documented in this encounter Visit Diagnoses Diagnosis Malignant neoplasm of prostate documented in this encounter Care Teams Supervisor Precision Optical Elements Relationship Specialty Start Date End Date Farnaz Pineda MD [address] [place] [address] PCP - General 10/26/12 documented as of this encounter
--- OUTSIDE RECORDS SUMMARY | 2024-04-20 15:06 | XMS_ITS | Encounter Summary ---
Author Organization [facility] [place] [address] Care Team Providers Care Shirt Sorter Name Role Phone Farnaz Pineda MD Primary Care Provider [phone] Reason for Visit * Reason Comments Medication Refill Encounter Details Date Type Department Care Team (Late st Contact Info) Description 01/22/2022 [place] [id number] Leonardo Barrios MD [facility] [place] [address] Social History Tobacco Use Types Packs/Day Years [...] on filedocumented in this encounter Care Teams Shirt Sorter Relationship Specialty Start Date End Date Farnaz Pineda MD [address] [place] [address] PCP - General 10/26/12 documented as of this encounter
--- OUTSIDE RECORDS SUMMARY | 2024-04-20 15:06 | XMS_ITS | Encounter Summary ---
Author Organization [facility] [place] [address] Care Team Providers Care Computer Art Instructor Name Role Phone Farnaz Pineda MD Primary Care Provider [phone] Encounter Details Date Type Department Care Team (Late st Contact Info) Description 01/19/2018 12:40 PM EDT Laboratory Appointment Lab [address] [place] [address] Elevated PSA Social History Tobacco Use Types Packs/Day Years [...] Date/Time Associated Diagnosis Comments PSA (ULTRASENSITIVE) STAT 01/19/2018 1:09 PM EDT Elevated PSA documented in this encounter Results * PSA (01/19/2018 1:09 PM EDT) PSA Total (Ultrasensitiv e) <0.01 0.00 - 4.00 ng/mL [facility] Blood specimen (specimen) 01/19/2018 1:09 PM EDT 01/19/2018 1:18 PM EDT Narrative Resulting Agency Comment Spec In Lab Leonardo Barrios MD CHEMISTRY ORDERABL ES [facility] [place] [address] documented in this encounter Visit Diagnoses Diagnosis Elevated PSA Elevated prostate specific antigen (PSA) documented in this encounter Care Teams Computer Art Instructor Relationship Specialty Start Date End Date Farnaz Pineda MD [address] [place] [address] PCP - General 10/26/12 documented as of this encounter
--- OUTSIDE RECORDS SUMMARY | 2024-04-20 15:06 | XMS_ITS | Encounter Summary ---
Author Organization [facility] [place] [address] Care Team Providers Care Fibreglass Gun Hand Name Role Phone Farnaz Pineda MD Primary Care Provider [phone] Encounter Details Date Type Department Care Team (Late st Contact Info) Description 07/16/2019 2:20 PM EDT [place] [phone] Leonardo Barrios MD [facility] [place] [address] Malignant neoplasm of prostate Social History Tobacco [...] Sign Reading Time Taken Comments Blood Pressure 140/79 07/16/2019 2:24 PM EDT Pulse 83 07/16/2019 2:24 PM EDT Temperature 37 ??C (98.6 ??F) 07/16/2019 2:24 PM EDT Respiratory Rate - - Oxygen Saturation - - Inhaled Oxygen Concentration - - Weight - - Height - - Body Mass Index - - documented in this encounter Progress Notes * Leonardo Barrios MD - 07/16/2019 2:20 PM EDT Mr. Rodgers follows up today with a complex history. He has a history of clinically high risk prostate cancer (biopsy [place] 4+5=9, PSA 7.1, cT1c). He underwent NNS RALRP/PLND in 11/22. 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 He also developed an adjacent pelvic abscess that was percutaneously drained. This cavity healed and his womcak was ultimately removed. 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 ?? His path revealed pT3a Shasha 3+4=7 disease with tertiary 5, negative margins, negative LN Voiding well. He still has some SHELDON, wears one PPD. ED, has met with Dr. Pike to discuss IPP, was considering surgery but ultimately decided against it. Today PSA is <0.01 Exam: ?? Gen: NAD CV: RRR P: normal WOB A/P #s/p radical prostatectomy with reassuring PSA follow up. Repeat PSA in 1 year. # Stress urinary incontinence, one PPD. I recommended Kegels # Erectile dysfunction - s/p failed viagra, failed triple P injection therapy. Has seen Dr. Pike and is not interested in IPP / further treatment at this time 20 minutes spent in counseling and coordination of care documented in this encounter Plan of Treatment Not on file documented as of this encounter Visit Diagnoses Diagnosis Malignant neoplasm of prostate documented in this encounter Care Teams Fibreglass Gun Hand Relationship Specialty Start Date End Date Farnaz Pineda MD [address] [place] [address] PCP - General 10/26/12 documented as of this encounter
--- OUTSIDE RECORDS SUMMARY | 2024-04-20 15:06 | XMS_ITS | Encounter Summary ---
Author Organization [facility] [place] [address] Care Team Providers Care Machine Binder Stripper Name Role Phone Farnaz Pineda MD Primary Care Provider [phone] Reason for Referral * Physical Therapy (Routine) - Closed Specialty Diagnoses / Procedures Referred By Berta tavera Referred To Contact Physical Therapy Diagnoses SHELDON (stress urinary incontinence), male Bartolome Pike MD [facility] [place] [address] [place] [address] [address] [place] [address] Referral ID Status Reason Start Date Expiration Date V isits Requested Visits Authorized [id number] Closed Evaluate and Treat 03/18/2022 03/18/2023 100 100 Encounter Details Date Type Department Care Team (Late st Contact Info) Description 03/18/2022 4:20 PM EDT [place] [address] Bartolome Pike MD [facility] [place] [address] [place] [address] SHELDON (stress urinary incontinence), male Social History Tobacco Use Types Packs/Day Years [...] Pulse 82 03/18/2022 4:14 PM EDT Temperature - - Respiratory Rate - - Oxygen Saturation - - Inhaled Oxygen Concentration - - Weight - - Height - - Body Mass Index - - documented in this encounter Progress Notes * Bartolome Pike MD - 03/18/2022 4:20 PM EDT S: I saw Mr. Rodgers back in follow-up for his urinary incontinence. He was last seen in 2018 for hisED. He is a very pleasant 72-year-old gentleman with a history of urinary incontinence for the last10 years. He denies hematuria, denies dysuria and denies urethral discharge. His most recent PSA measurement was undetectable today. He has no history of urinary tract infections. He uses one full-size pad per day. It is only intermittently saturated, depending on physical exertion. He leaks with physical exertion, coughing, laughing, and sneezing. He denies urgency or urge urinary incontinence. He has not been to physical therapy in the past. He has also tried oxybutynin without discernable effect. 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 He also developed an adjacent pelvic abscess that was percutaneously drained. He also has a history of ED. Past medical history is notable for DVT, mechanical valve, depression, GERD, low thyroid, asthma. Past surgical history includes robotic prostatectomy, Mechanical valve placement, filter placement,umbilical hernia repair, left inguinal hernia repair. From a social perspective, he quit smoking in 1986 and has a 17 year history of smoking. Alcohol usage is [address] drug usage is denied. He is . He works as a retired. Family history is negative for any genitourinary cancers. He has no known drug allergies. His medications were reviewed and are consistent with those in the electronic medical record. A review of systems was performed and he has no pertinent positives, except for those listed in thehistory of present illness. O: On physical exam today he is in general a healthy, well-appearing man. He is awake, alert and oriented to person place and time. Mood and affect are normal. Gait: Normal and neurologically intact. No focal motor or sensory deficits are noted. Skin: Skin is warm and dry. There are no visible scars, rashes or lesions. HEENT: He is normocephalic and atraumatic. There is no scleral icterus. Pupils are equally round and reactive to light and accommodation. Extraocular motions intact. Trachea is midline. Lungs: No audible wheezing, normal respiratory effort. Chest rise is symmetric. Extremities: Extremities do not demonstrate clubbing, cyanosis or edema. His abdomen is soft, nontender, nondistended. There is no abdominal tenderness, guarding or rebound. No abdominal or inguinal hernias are seen. His phallus is circumcised. There are no penile lesions or palpable plaques. He has a patent, orthotopic urinary meatus. Both testes are scrotally located. The bilateral cords are palpable and withinnormal limits. There are no testicular masses or nodules bilaterally. His scrotum is without edema or erythema. A digital rectal exam was deferred. On standing cough test today he exhibited no leakage after four forceful coughs, indicating Male Stress Incontinence Grading Scale (MSIGS) score of 0. His pad today was placed this morning and appears dry. A: This is a 72-year-old gentleman with urinary incontinence following robotic radical prostatectomy. P: We discussed incontinence at length, including the etiology and natural history of the disease. We specifically talked about the management of incontinence. I explained options for further management, including pelvic floor physical therapy, sling placement, and artificial urinary sphincter placement. Given his mild degree of leakage, AUS placement is not appropriate. Given his anticoagulationneeds, surgical management is made more complicated, and conservative management with pelvic floor physical therapy is the most sensible option at this time. I have placed a referral to pelvic floor physical therapy here and advised him to contact PT to arrange scheduling. I also asked him to contact me once he has completed physical therapy to reevaluateand see how he is doing. If PT is not effective, then male sling placement is certainly an option, but this option is complicated by his anticoagulation needs. He expressed understanding of this plan, and all questions were answered to his satisfaction. I will keep you updated as we move forward. Thank you very much for this kind referral. Please do not hesitate to contact me if you have any questions. documented in this encounter Plan of Treatment Scheduled Referrals Name Type Priority Associated Diagnoses Orde r Schedule Referral to Physical Therapy Outpatient Referral Routine SHELDON (stress urinary incontinence), male Ordered: 03/18/2022 documented as of this encounter Visit Diagnoses Diagnosis SHELDON (stress urinary incontinence), male Stress incontinence, male documented in this encounter Care Teams Machine Binder Stripper Relationship Specialty Start Date End Date Farnaz Pineda MD [address] [place] [address] PCP - General 10/26/12 documented as of this encounter
--- OUTSIDE RECORDS SUMMARY | 2024-04-20 15:06 | XMS_ITS | Encounter Summary ---
Author Organization [facility] [place] [address] Care Team Providers Care Cigar Wrapper Name Role Phone Farnaz Pineda MD Primary Care Provider [phone] Encounter Details Date Type Department Care Team (Late st Contact Info) Description 01/13/2015 Orders [place] [phone] Ross Madrid MD [facility] [place] [address] Prostate cancer Social History Tobacco Use Types Packs/Day Years [...] documented as of this encounter Results * PSA, total and free (01/14/2015 9:43 AM EDT) PSA Total (Ultrasensiti ve) <0.03 0.00 - 4.00 ng/mL [facility] Free <0.1 ng/mL [facility] PSA % Free Not Calculated [facility] Comment: Probability of finding HOUSE FATHER on needle biopsy by age in years: % fPSA ? 50-59yrs ? 60-69yrs ? >=70yrs <=10 ? 49.2 ? 57.5 ? 64.5 11-18 ?26.9 ? 33.9 ? 40.8 19-25 ?18.2 ? 23.9 ? 29.7 >25 ? 9.1 ? 12.2 ? 15.8 Blood specimen (specimen) 01/14/2015 9:43 AM EDT 01/14/2015 10:08 AM EDT Narrative Resulting Agency Comment Spec In Lab Ross Madrid MD CHEMISTRY ORDERABLES Performing Organization Address City/State/[facility] Co de Phone Number DANETTE VALENCIA documented in this encounter Visit Diagnoses Diagnosis Prostate cancer Malignant neoplasm of prostate documented in this encounter Care Teams Cigar Wrapper Relationship Specialty Start Date End Date Farnaz Pineda MD [address] [place] [address] PCP - General 10/26/12 documented as of this encounter
--- OUTSIDE RECORDS SUMMARY | 2024-04-20 15:06 | XMS_ITS | Encounter Summary ---
Author Organization [facility] [place] [address] Care Team Providers Care Brass Pickler Name Role Phone Farnaz Pineda MD Primary Care Provider [phone] Encounter Details Date Type Department Care Team (Latest Contact Info) Description 03/17/2018 1:40 PM EDT [place] [phone] Bartolome Burce MD [facility] [place] [address] Left groin mass; Erectile dysfunction following radical prostatectomy Social History Tobacco Use Types Packs/Day Years [...] Sign Reading Time Taken Comments Blood Pressure 128/84 03/17/2018 1:50 PM EDT Pulse 70 03/17/2018 1:50 PM EDT Temperature - - Respiratory Rate - - Oxygen Saturation 99% 03/17/2018 1:50 PM EDT Inhaled Oxygen Concentration - - Weight - - Height - - Body Mass Index - - documented in this encounter Progress Notes * Bartolome Bruce MD - 03/17/2018 1:40 PM EDT S: I have been requested by Dr. Barrios to see Mr. Al for my opinion regarding his erectile dysfunction. He is a very pleasant 68-year-old gentleman with a history of erectile dysfunction following radical prostatectomy for the last 5 years. He was intermittently using Viagra beforehand. He sayshis penile rigidity is approximately 0 % at best without medications. With PDE5 inhibitors he is able to achieve the same erection. He also tried triple P in the past but found this to be exceedinglypainful and without significant improvement. His spontaneous erections are absent. His sustaining capacities are absent. AM erections are absent, and less frequent than previous. He rates his sexual desire at 100 % and says it is intact. He says his ejaculation is absent following radical prostatectomy. Orgasm is intact. He denies significant penile curvature. He denies penile pain. He denies a history of penile trauma. He denies blunt perineal trauma or any bicycle riding. Other issues include prostate cancer followed by Dr. Barrios. Additionally he says his continence is much improved and is happy with the results Past medical history is notable for DVT, mechanical valve, depression, GERD, low thyroid, asthma. Past surgical history includes robotic prostatectomy, Mechanical valve placement, filter placement,umbilical hernia repair. From a social perspective, he denies smoking. Alcohol usage is 2 [address] drug usage is denied. He is . He is retired. Family history is negative for any [...] and time. Mood and affect are normal. ? Gait: Normal and neurologically intact ? Skin: Warm and dry, no visible scars or lesions HEENT: EOMI, PERRLA, NC/AT ? Lungs: No audible wheezing, normal respiratory effort. ? His abdomen is soft, nontender, nondistended. His phallus is circumcised. There are no penile plaques or lesions. He has a patent, orthotopic urinary meatus. Both testes are scrotally located. The bilateral cords are palpable and within normal limits. There are no testicular masses or nodules bilaterally. His scrotum is without edema or erythema. There is a large left groin mass consistent with a left inguinal hernia. Digital rectal exam wasdeferred. A: This is a 68-year-old gentleman with erectile dysfunction. P: We discussed ED at length, including the etiology and natural history of the disease. We specifically talked about the management of ED. I explained that PDE5 inhibitors tend to lose efficacy as ED progresses, and that he is no longer responding to these medications at this point. We then discussed the treatment algorithm for ED, and I explained his options. These include vacuum erection devices, intraurethral alprostadil, higher dose intracavernosal injection therapy, and an inflatable penile prosthesis. He seemed most comfortable with proceeding with IPP placement after extensive explanation of the risks and benefits. I will obtain a scrotal ultrasound to evaluate this probable left ing uinal hernia. If hernia is present basement. I will contact him with the results of the ultrasound and we will proceed from there. He was in agreement with this plan and expressed understanding. All of his questions were answered at length. I spent approximately 35 of the 40 minutes of our appointment in extensive [id number] counseling regarding his ED. I will keep you updated as we move forward. Thank you very much for this kind referral. Please do not hesitate to contact me if you have any questions. documented in this encounter Plan of Treatment Not on file documented as of this encounter Results * US Extremity Non Vascular Limited Left (03/21/2018 3:00 PM EDT) Anatomical Region Laterality Modality Ultrasound 03/21/2018 3:01 PM EDT Impressions 03/21/2018 3:56 PM EDT ??No prior studies available for comparison.There is a left inguinal hernia with echogenic tubular structure representing afat-containing hernia versus decompressed bowel with small amount of luminalair. No discrete peristalsis identified during this exam. ? Anita Mccormack MD Electronically Signed Final Report ?? 03/21/2018 03:55 pm Narrative 03/21/2018 3:56 PM EDT Ultrasound Report ?(Signed Final 03/21/2018 03:55 pm) PATIENT INFO: ID #: ? [id number] ?: ??50 (68 yrs) Name: ? DILLAN AL ? Visit Date: 03/21/2018 03:01 pm PERFORMED BY: Performed By: ? Farnaz Jonas RDMS Attending: ?Anita Noriega MD Referred By: ?BARTOLOME Botello GROSS Location: ? [facility] SERVICE(S) PROVIDED: ??UEXTLMTL - Extremity Limited Non Vascular - Left ?[id number] ??- [id number] INDICATIONS: ??? L inguinal hernia --------- FINDINGS: --------- Title: ? Ultrasound Report Procedure Note Anita Lea MD - 03/21/2018 Ultrasound Report (Signed Final 03/21/2018 03:55 pm) PATIENT INFO: ID #: [id number] : 50 (68 yrs) Name: DILLAN AL Visit Date: 03/21/2018 03:01 pm PERFORMED BY: Performed By: Farnaz Jonas RDMS Attending: Anita Noriega MD Referred By: BARTOLOME BRUCE Location: [facility] SERVICE(S) PROVIDED: UEXTLMTL - Extremity Limited Non Vascular - Left [id number] - [id number] INDICATIONS: ? L inguinal hernia --------- FINDINGS: --------- Title: Ultrasound Report IMPRESSION No prior studies available for comparison.There is a left inguinal hernia with echogenic tubular structure representing afat-containing hernia versus decompressed bowel with small amount of luminalair. No discrete peristalsis identified during this exam. Anita Mccormack MD Electronically Signed Final Report 03/21/2018 03:55 pm Bartolome Bruce MD IMG US GEN ORDERABLE S documented in this encounter Visit Diagnoses Diagnosis Left groin mass Erectile dysfunction following radical prostatectomy Impotence of organic origin Left groin mass documented in this encounter Care Teams Brass Pickler Relationship Specialty Start Date End Date Farnaz Pineda MD [address] [place] [address] PCP - General 10/26/12 documented as of this encounter
--- OUTSIDE RECORDS SUMMARY | 2024-04-20 15:06 | XMS_ITS | Encounter Summary ---
Author Organization [facility] [place] [address] Care Team Providers Care Reinsurance Accountant Name Role Phone Farnaz Pineda MD Primary Care Provider [phone] Encounter Details Date Type Department Care Team (Late st Contact Info) Description 12/19/2015 [place] [phone] Ross Madrid MD [facility] [place] [address] Malignant neoplasm of prostate (Primary Dx) Social History Tobacco Use Types Packs/Day Years [...] as of this encounter Results * PSA (01/26/2016 2:09 PM EDT) PSA Total (Ultrasensitiv e) <0.03 0.00 - 4.00 ng/mL [facility] Blood specimen (specimen) 01/26/2016 2:09 PM EDT 01/26/2016 2:30 PM EDT Narrative Resulting Agency Comment Spec In Lab Ross Madrid MD CHEMISTRY ORDERABLES [facility] [place] [address] documented in this encounter Visit Diagnoses Diagnosis Malignant neoplasm of prostate- Primary documented in this encounter Care Teams Reinsurance Accountant Relationship Specialty Start Date End Date Farnaz Pineda MD [address] [place] [address] PCP - General 10/26/12 documented as of this encounter
--- OUTSIDE RECORDS SUMMARY | 2024-04-20 15:06 | XMS_ITS | Encounter Summary ---
Author Organization [facility] [place] [address] Care Team Providers Care Skills Auditor Name Role Phone Farnaz Pineda MD Primary Care Provider [phone] Encounter Details Date Type Department Care Team (Late st Contact Info) Description 07/20/2018 Telephone Urology at [address] [address] Soledad Briscoe LPN Social History Tobacco Use Types Packs/Day Years [...] on file documented as of this encounter Miscellaneous Notes * Telephone Encounter - Soledad Briscoe LPN - 07/20/2018 10:13 AM EDT Pt notified. Rx sent to pharmacy. documented in this encounter Plan of Treatment Not on file documented as of this encounter Visit Diagnoses Not on filedocumented in this encounter Care Teams Skills Auditor Relationship Specialty Start Date End Date Farnaz Pineda MD [address] [place] [address] PCP - General 10/26/12 documented as of this encounter
--- OUTSIDE RECORDS SUMMARY | 2024-04-20 15:06 | XMS_ITS | Encounter Summary ---
Author Organization [facility] [place] [address] Care Team Providers Care Account Support Manager Name Role Phone Farnaz Pineda MD Primary Care Provider [phone] Encounter Details Date Type Department Care Team (Late st Contact Info) Description 06/20/2014 12:30 PM EDT [place] [phone] Ross Madrid MD [facility] [place] [address] Elevated PSA (Primary Dx) Discharge Disposition: Home Social History [...] Sign Reading Time Taken Comments Blood Pressure 122/76 06/20/2014 1:24 PM EDT Pulse 68 06/20/2014 1:24 PM EDT Temperature - - Respiratory Rate 16 06/20/2014 1:24 PM EDT Oxygen Saturation - - Inhaled Oxygen Concentration - - Weight 84.4 kg (186 lb) 06/20/2014 1:24 PM EDT Height 172.7 cm (5' 8) 06/20/2014 1:24 PM EDT Body Mass Index 28.28 06/20/2014 1:24 PM EDT documented in this encounter Progress Notes * Ross Madrid MD - 06/20/2014 1:27 PM EDT Mr. Rodgers follows up today with a complex history. He has a history of clinically high risk prostate cancer (biopsy [place] 4+5=9, PSA 7.1, cT1c). He underwent NNS RALRP/PLND in 11/22. 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 He also developed an adjacent pelvic abscess that was percutaneously drained. This cavity healed and his womack was ultimately removed. 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 His path revealed pT3a [place] 3+4=7 disease with tertiary 5, negative margins, negative LN. He was last seen in 11/23. Today he feels well. Wears a pad with light moisture at end of day. States that he drinks a large volume of coffee. Some leakage w/ strenuous physical exertion. No dysuria or gross hematuria. He tried viagra w/o effect, and injection therapy w/o significant effect. He is meeting w/ Alisa today to discuss increasing the dose of injection. PSA <0.03 in 11/23. Today PSA is pending. His inquires whether his IVC filter from last year requires removal. Exam: S NTND No CVAT Soft reducible umbilical hernia A: Higher risk prostate cancer is MADI Stress incontinence nearly resolved Erectile dysfunction on injection therapy Umbilical hernia P: PSA in 6 months, then annually if undetectable. Cont penile injection therapy Discussed pelvic floor exercises and option of physiotherapy consult; discussed reduction of caffeine intake Discussed red flags for intervention for umbilical hernia; he desires to monitor Will inquire w/ vascular regarding permanence of IVC filter His questions were answered in detail. 16 of 17 min spent in counseling and coordination of care. ADDENDUM: PSA <0.03 today documented in this encounter Plan of Treatment Not on file documented as of this encounter Procedures Procedure Name Priority Date/Time Associated Diagnosis Comments PSA (ULTRASENSITIVE) Routine 06/20/2014 1:16 PM EDT Elevated PSA documented in this encounter Results * PSA (06/20/2014 1:16 PM EDT) PSA Total (Ultrasensitiv e) <0.03 0.00 - 4.00 ng/mL [facility] Blood specimen (specimen) 06/20/2014 1:16 PM EDT 06/20/2014 1:22 PM EDT Narrative Resulting Agency Comment Spec In Lab Ross Madrid MD CHEMISTRY ORDERABLES [facility] [place] documented in this encounter Visit Diagnoses Diagnosis Elevated PSA- Primary Elevated prostate specific antigen (PSA) documented in this encounter Care Teams Account Support Manager Relationship Specialty Start Date End Date Farnaz Pineda MD [address] [place] [address] PCP - General 10/26/12 documented as of this encounter
--- OUTSIDE RECORDS SUMMARY | 2024-04-20 15:06 | XMS_ITS | Encounter Summary ---
Author Organization [facility] [address] Care Team Providers Care Shear Scrapman Name Role Phone Farnaz Pineda MD Primary Care Provider [phone] Encounter Details Date Type Department Care Team (Late st Contact Info) Description 01/26/2016 3:00 PM EDT Office [place] [phone] Ross Madrid MD [facility] [place] [address] Malignant neoplasm of prostate Social History Tobacco [...] Sign Reading Time Taken Comments Blood Pressure 133/81 01/26/2016 3:08 PM EDT Pulse 76 01/26/2016 3:08 PM EDT Temperature 36.5 ??C (97.7 ??F) 01/26/2016 3:08 PM ED T Respiratory Rate - - Oxygen Saturation 100% 01/26/2016 3:08 PM EDT Inhaled Oxygen Concentration - - Weight 92.1 kg (203 lb) 01/26/2016 3:08 PM EDT Height 170.2 cm (5' 7) 01/26/2016 3:08 PM EDT Body Mass Index 31.79 01/26/2016 3:08 PM EDT documented in this encounter Progress Notes * Ross Madrid MD - 01/26/2016 3:32 PM EDT Mr. Rodgers follows up today with a complex history. He has a history of clinically high risk prostate cancer (biopsy [place] 4+5=9, PSA 7.1, cT1c). He underwent NNS [...] metal AVR. ?? 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 Today he feels well.? SHELDON mild, sporadic w/ coughing. No urge or UUI. 1 pad/ day, mild leakage. Not particularly bothered but considering pelvic floor PT. He tried viagra w/o effect, and injection therapy w/o significant effect.? He is interested in ahigher dose of triple P. Today PSA is <0.03 Exam: ?? S NTND ?? No CVAT ?? A: ?? Higher risk prostate cancer is MADI ?? Stress incontinence, mild Erectile dysfunction P: PSA in 1 yr ?? Will have nursing staff contact him to arrange for higher dose of triple P; he has used previously and his is an RN Pelvic floor PT His questions were answered in detail. 16 of 17 min spent in counseling and coordination of care. documented in this encounter Plan of Treatment Not on file documented as of this encounter Visit Diagnoses Diagnosis Malignant neoplasm of prostate documented in this encounter Care Teams Shear Scrapman Relationship Specialty Start Date End Date Farnaz Pineda MD [address] [place] [address] PCP - General 10/26/12 documented as of this encounter
--- OUTSIDE RECORDS SUMMARY | 2024-04-20 15:06 | XMS_ITS | Encounter Summary ---
Author Organization [facility] [place] [address] Care Team Providers Care Housekeeper Nanny Name Role Phone Farnaz Pineda MD Primary Care Provider [phone] Encounter Details Date Type Department Care Team (Late st Contact Info) Description 08/16/2023 9:40 AM EST TH Visit (TeleHealth) [place] [phone] Leonardo Barrios MD [facility] [address] Malignant neoplasm of prostate Social History Tobacco [...] as of this encounter Progress Notes * Leonardo Barrios MD - 08/16/2023 9:40 AM EST Mr. Rodgers follows up today with [...] a metal AVR. His path revealed pT3a [place] 3+4=7 disease with tertiary 5, negative margins, negative LN Is seeing Dr. Pike for SHELDON and ED. Plan is for pelvic floor PT. He is holding off on IPP at this point. Having some nocturnal enuresis, interested in treatment. Had taken oxybutynin in the past for SHELDON but did not help, he is unsure if it had any effect on his evening continence however this issue would not have any effect PSA is <0.01 Exam: Not done (telephone) A/P #s/p radical prostatectomy with reassuring PSA follow up. # Continue to follow with Dr. Pike regarding ED / SHELDON # Will re-try oxybutynin Patient verbally consents to this telephone visit and understands that this visit may be billed, similar to a clinic office visit. I provided care to the patient today via telephone call. The total time associated with this visit was 20 minutes. documented in this encounter Plan of Treatment Scheduled Orders Name Type Priority Associated Diagnoses Orde r Schedule PSA (Ultrasensitive) Lab STAT Malignant neoplasm of prostate Expected: 08/16/2024 (Approximate), Expires: 02/13/2025 documented as of this encounter Visit Diagnoses Diagnosis Malignant neoplasm of prostate documented in this encounter Care Teams Housekeeper Nanny Relationship Specialty Start Date End Date Farnaz Pineda MD [address] [place], [place] [address] PCP - General 10/26/12 documented as of this encounter
--- OUTSIDE RECORDS SUMMARY | 2024-04-20 15:06 | XMS_ITS | Encounter Summary ---
Author Organization [facility] [place] [address] Care Team Providers Care Furnace Combustion Tester Name Role Phone Farnaz Pineda MD Primary Care Provider [phone] Encounter Details Date Type Department Care Team (Late st Contact Info) Description 02/26/2021 3:00 PM EDT [place] [phone] Leonardo Barrios MD [facility] [place] [address] Malignant neoplasm of prostate Social History Tobacco [...] Sign Reading Time Taken Comments Blood Pressure 116/86 02/26/2021 3:01 PM EDT Pulse 79 02/26/2021 3:01 PM EDT Temperature - - Respiratory Rate - - Oxygen Saturation - - Inhaled Oxygen Concentration - - Weight 89.4 kg (197 lb) 02/26/2021 3:01 PM EDT Height - - Body Mass Index 30.85 01/26/2016 3:08 PM EDT documented in this encounter Progress Notes * Leonardo Barrios MD - 02/26/2021 3:00 PM EDT Mr. Rodgers follows up today with a complex history. He has a history of clinically high risk prostate cancer (biopsy [place] 4+5=9, PSA 7.1, cT1c). He underwent NNS [...] Voiding well. He still has some SHELDON, which is bothersome, no recent change just bothered overall for some time. ED, has met with Dr. Pike to discuss IPP, was considering surgery but ultimately decided against it. Today PSA is <0.01 Exam: ?? Gen: NAD CV: RRR P: normal WOB A/P #s/p radical prostatectomy with reassuring PSA follow up. Repeat PSA in 1 year. # Stress urinary incontinence, one PPD. I recommended Kegels and we will trial oxybutynin, discussed risks (dry mouth / constipation etc) he will call with significant SE # Erectile dysfunction - s/p failed viagra, failed triple P injection therapy. Has seen Dr. Pike and is not interested in IPP / further treatment at this time 20 minutes spent in counseling and coordination of care documented in this encounter Plan of Treatment Not on file documented as of this encounter Results * PSA (Ultrasensitive) (03/18/2022 3:07 PM EDT) PSA Total (Ultrasensitive ) <0.01 0.00 - 4.00 ng/mL [facility] Comment: PLEASE NOTE: The above reference interval is intended for healthy males with an intact prostate. Values within this reference interval may indicate recurrence in men who have undergone radical prostatectomy. Blood 03/18/2022 3:07 PM EDT 03/18/2022 3:28 PM EDT Narrative Resulting Agency Comment Spec In Lab Leonardo Barrios MD CHEMISTRY ORDERABL ES [facility] [place] [address] documented in this encounter Visit Diagnoses Diagnosis Malignant neoplasm of prostate documented in this encounter Care Teams Furnace Combustion Tester Relationship Specialty Start Date End Date Farnaz Pineda MD [address] [place] [address] PCP - General 10/26/12 documented as of this encounter
--- OUTSIDE RECORDS SUMMARY | 2024-04-20 15:06 | XMS_ITS | Encounter Summary ---
Author Organization [facility] [address] Care Team Providers Care Cupola Operator Name Role Phone Farnaz Pineda MD Primary Care Provider [phone] Encounter Details Date Type Department Care Team (Latest Contact Info) Description 10/19/2022 Travel Social History Tobacco Use Types Packs/Day [...] on filedocumented in this encounter Care Teams Cupola Operator Relationship Specialty Start Date End Date Farnaz Pineda MD [address] [place] [address] PCP - General 10/26/12 documented as of this encounter
--- OUTSIDE RECORDS SUMMARY | 2024-04-20 15:06 | XMS_ITS | Encounter Summary ---
Author Organization [facility] [place] [address] Care Team Providers Care Cable Installer Name Role Phone Farnaz Pineda MD Primary Care Provider [phone] Encounter Details Date Type Department Care Team (Late st Contact Info) Description 01/29/2019 Orders [place] [address] Terrence Dooley LPN Elevated PSA Social History Tobacco Use Types [...] as of this encounter Results * PSA (07/16/2019 1:33 PM EDT) PSA Total (Ultrasensitiv e) <0.01 0.00 - 4.00 ng/mL [facility] Blood specimen (specimen) 07/16/2019 1:33 PM EDT 07/16/2019 1:37 PM EDT Narrative Resulting Agency Comment Spec In Lab Leonardo Barrios MD CHEMISTRY ORDERABL ES [facility] [place] [address] documented in this encounter Visit Diagnoses Diagnosis Elevated PSA Elevated prostate specific antigen (PSA) documented in this encounter Care Teams Cable Installer Relationship Specialty Start Date End Date Farnaz Pineda MD [address] [place] [address] PCP - General 10/26/12 documented as of this encounter
--- OUTSIDE RECORDS SUMMARY | 2024-04-20 15:06 | XMS_ITS | Encounter Summary ---
Author Organization [facility] [place] [address] Care Team Providers Care Fur Glazer Name Role Phone Farnaz Pineda MD Primary Care Provider [phone] Encounter Details Date Type Department Care Team (Late st Contact Info) Description 03/22/2018 [place] [phone] Bartolome Pike MD [facility] [place] [address] Social History Tobacco Use Types Packs/Day Years [...] encounter Miscellaneous Notes * Telephone Encounter - Bartolome Pike MD - 03/22/2018 1:51 PM EDT Called patient with ultrasound results. Left inguinal hernia present. He will schedule an appointment to see his general surgeon and to have this repaired. He will contact my office and he is ready to proceed with IPP placement. documented in this encounter Plan of Treatment Not on file documented as of this encounter Visit Diagnoses Not on filedocumented in this encounter Care Teams Fur Glazer Relationship Specialty Start Date End Date Farnaz Pineda MD [address] [place] [address] PCP - General 10/26/12 documented as of this encounter
--- OUTSIDE RECORDS SUMMARY | 2024-04-20 15:06 | XMS_ITS | Encounter Summary ---
Author Organization [facility] [place] [address] Care Team Providers Care Hardscape Foreman Name Role Phone Farnaz Pineda MD Primary Care Provider [phone] Encounter Details Date Type Department Care Team (Late st Contact Info) Description 06/15/2023 Orders [place] [phone] Leonardo Barrios MD [facility] [place] [address] Malignant neoplasm of prostate Social History Tobacco [...] as of this encounter Plan of Treatment Scheduled Orders Name Type Priority Associated Diagnoses Orde r Schedule PSA (Ultrasensitive) Lab Routine Malignant neoplasm of prostate Expected: 06/15/2023 (Approximate), Expires: 06/14/2024 documented as of this encounter Visit Diagnoses Diagnosis Malignant neoplasm of prostate documented in this encounter Care Teams Hardscape Foreman Relationship Specialty Start Date End Date Farnaz Pineda MD [address] [place] [address] PCP - General 10/26/12 documented as of this encounter
--- OUTSIDE RECORDS SUMMARY | 2024-04-20 15:06 | XMS_ITS | Encounter Summary ---
Author Organization [facility] [place] [address] Care Team Providers Care Chain Hooker Name Role Phone Farnaz Pineda MD Primary Care Provider [phone] Reason for Visit * Physical Therapy (Routine) - Closed Specialty Diagnoses / Procedures Referred By Berta tavera Referred To Contact Physical Therapy Diagnoses SHELDON (stress urinary incontinence), male Bartolome Pike MD [facility] [place] [address] [address] [place] [address] Referral ID Status Reason Start Date Expiration Date V isits Requested Visits Authorized [id number] Closed Evaluate and Treat 03/18/2022 03/18/2023 100 100 Encounter Details Date Type Department Care Team (Late st Contact Info) Description 08/31/2022 1:00 PM EST Office Visit Physical Therapy at [address] [place] [address] Alida Jacob, PT [facility] PHYSICAL MEDICINE & [place] [address] SHELDON (stress urinary incontinence), male Social History [...] Progress Notes * Alida Jacob, PT - 08/31/2022 1:00 PM EST PHYSICAL THERAPY Progress Note: PELVIC FLOOR MALE Date of Exam/First Treatment: 08/31/2022 Date of onset: 10 years Referring Provider: Bartolome Pike MD Primary Insurance: Payor: [employer] [place] MEDICARE / Plan: [place] / Product Type: *No Product type* / Diagnosis and Pertinent Co-morbidities affecting Plan of Care: No diagnosis found. Medicare Certification period: 08/31/2022 - 10/05/22 Time code time: 45 min Total treatment time: 45 min S: Feeling 50 % improved. Doing the exercises daily. O: SEMG readings with internal electrode: Position of Exercise Rest Quick Flick Long Hold Supine 10mv decreased to 5mv with breathing and hip flexor release 60mv 20mv for 5sec Sitting mv mv mv Standing Therex- Performed pelvic floor relaxation in supine Manual therapy: pelvic floor rectally - colonic massage Diaphragm breathing and release A: The patient has made improvements with less SHELDON and less wetness but depends on his activity level. Cont to have bright red skin in the groin and perineum. Would benefit from treatment- will alertthe MD. The patient continues to have increased muscle tension at the lev ani muscles on left anterior puborectalis. Patient has good use of kegel with poor relaxation. Will cont to focus on relaxation techniques and massage. P: cont with physical therapy for relaxation and manual work GOALS: Goals: Short term goals (4 weeks) 1. Patient to be indep in the performance of a home program of pelvic floor muscle exercises on a daily basis. 2. Patient will demonstrate a decrease in pelvic floor muscle resting rate from 30mv to 10mv on SEMG with int sensor. 3. Patient to complete self massage every day. 4. Patient's skin at perineum will no longer be red by using zinc oxide every day Goals: jail goals (3 months) 1. Patient to be independent with ongoing self management. 2. Patient will have decreased number of SHELDON by 25%. 3. ADL???s not limited by UI, urgency or frequency. documented in this encounter Plan of Treatment Scheduled Referrals Name Type Priority Associated Diagnoses Orde r Schedule Referral to Physical Therapy Outpatient Referral Routine SHELDON (stress urinary incontinence), male Ordered: 03/18/2022 documented as of this encounter Visit Diagnoses Diagnosis SHELDON (stress urinary incontinence), male Stress incontinence, male documented in this encounter Care Teams Chain Hooker Relationship Specialty Start Date End Date Farnaz Pineda MD [address] [place] [address] PCP - General 10/26/12 documented as of this encounter
--- OUTSIDE RECORDS SUMMARY | 2024-04-20 15:06 | XMS_ITS | Encounter Summary ---
Author Organization [facility] [place] [address] Care Team Providers Care Entrepreneurial Finance Professor Name Role Phone Farnaz Pineda MD Primary Care Provider [phone] Encounter Details Date Type Department Care Team (Late st Contact Info) Description 07/12/2016 [place] [phone] Ross Madrid MD [facility] [place] [address] Social History Tobacco Use Types Packs/Day Years [...] on filedocumented in this encounter Care Teams Entrepreneurial Finance Professor Relationship Specialty Start Date End Date Farnaz Pineda MD [address] [place] [address] PCP - General 10/26/12 documented as of this encounter
--- OUTSIDE RECORDS SUMMARY | 2024-04-20 15:06 | XMS_ITS | Encounter Summary ---
Author Organization [facility] [place] [address] Care Team Providers Care Interior Assemblies Developer Prover Name Role Phone Farnaz Pineda MD Primary Care Provider [phone] Encounter Details Date Type Department Care Team (Late st Contact Info) Description 03/08/2013 Telephone Cardiology at [address] [address] Kathleen Jonas, RN Social History Tobacco Use Types Packs/Day Years [...] encounter Miscellaneous Notes * Telephone Encounter - Kathleen Jonas, LANIE - 03/08/2013 11:02 AM EDT Called by as he is due to have dental cleaning and fillings next week 03/13. He was recently admitted with sepsis and the dental hygienist has concerns about doing dental work. He has finished IV antibiotics and will be on oral Augmentin through 03/16. Normally takes Amoxicillin as he has a [place] AVR. Spoke with Dr. Yates--sepsis was not of cardiac origin, encouraged good dental hygiene because of valve. He will not need usual amoxicillin as he is on Augmentin. documented in this encounter Plan of Treatment Not on file documented as of this encounter Visit Diagnoses Not on filedocumented in this encounter Care Teams Interior Assemblies Developer Prover Relationship Specialty Start Date End Date Farnaz Pineda MD [address] [place] [address] PCP - General 10/26/12 documented as of this encounter
--- OUTSIDE RECORDS SUMMARY | 2024-04-20 15:06 | XMS_ITS | Encounter Summary ---
Author Organization [facility] [place] [address] Care Team Providers Care Family Service Aide Name Role Phone Farnaz Pineda MD Primary Care Provider [phone] Encounter Details Date Type Department Care Team (Late st Contact Info) Description 07/16/2019 1:20 PM EDT Laboratory Appointment Lab [address] [place] [address] Elevated PSA Social History Tobacco [...] Procedure Name Priority Date/Time Associated Diagnosis Comments HC VENIPUNCTURE STAT 07/16/2019 1:33 PM EDT Elevated PSA documented in this encounter Results * PSA (07/16/2019 1:33 PM EDT) PSA Total (Ultrasensitiv e) <0.01 0.00 - 4.00 ng/mL [facility] Blood specimen (specimen) 07/16/2019 1:33 PM EDT 07/16/2019 1:37 PM EDT Narrative Resulting Agency Comment Spec In Lab Leonardo Barrios MD CHEMISTRY ORDERABL ES [facility] [place] [address] documented in this encounter Visit Diagnoses Diagnosis Elevated PSA Elevated prostate specific antigen (PSA) documented in this encounter Care Teams Family Service Aide Relationship Specialty Start Date End Date Farnaz Pineda MD [address] [place] [address] PCP - General 10/26/12 documented as of this encounter
--- OUTSIDE RECORDS SUMMARY | 2024-04-20 15:06 | XMS_ITS | Encounter Summary ---
Author Organization [facility] [place] [address] Care Team Providers Care Medical File Clerk Name Role Phone Farnaz Pineda MD Primary Care Provider [phone] Encounter Details Date Type Department Care Team (Latest Contact Info) Description 06/14/2013 12:50 PM EDT [place] [id number] Ross Madrid MD [facility] [place] [address] Prostate cancer (Primary Dx); S/P prostatectomy Discharge Disposition: Home Social History Tobacco Use [...] Sign Reading Time Taken Comments Blood Pressure 137/89 06/14/2013 1:36 PM EDT Pulse 57 06/14/2013 1:36 PM EDT Temperature - - Respiratory Rate 18 06/14/2013 1:36 PM EDT Oxygen Saturation - - Inhaled Oxygen Concentration - - Weight 93.9 kg (207 lb) 06/14/2013 1:36 PM EDT Height 172.7 cm (5' 8) 06/14/2013 1:36 PM EDT Body Mass Index 31.47 06/14/2013 1:36 PM EDT documented in this encounter Progress Notes * Ross Madrid MD - 06/14/2013 1:56 PM EDT Mr. Rodgers follows up today with a complex history. He has a history of clinically high risk prostate cancer (biopsy [place] 4+5=9, PSA 7.1, cT1c). He underwent RALRP/PLND [...] substantially and he uses a pad per day for safety. Denies gross hematuria. No recurrent erections but +sensitivity. Desires to attempt viagra which he used preoperatively. Exam: S NTND No CVAT PSA: <0.09 in 03/22 <0.1 on 06/08/13 (both values from [facility] BEDS AT [facility]) A: Higher risk prostate cancer is ? MADI with mild discrepancy in PSA Stress incontinence is improving Erectile dysfunction P: I recommended a PSA today at [facility] to evaluate for detectable PSA given the discrepancy from the outside lab. Moving forward, I recommended q3 month PSA here for consistency. The importance of vigilant follow up was emphasized. He will continue w/ kegel exercises and is pleased with his functional improvement. Regarding erections, he had preexisting ED and was on viagra preop, thus it is not certain he will respond to viagra now; nonetheless I wrote him for a prescription, and we spoke about injection therapy as an alternative should viagra not be effective. His questions were answered in detail. 16 of 17 min spent in counseling and coordination of care documented in this encounter Miscellaneous Notes * Addendum Note - Ashanti Campbell - 06/14/2013 2:06 PM EDTAddended by: ASHANTI CAMPBELL on: 06/14/2013 02:06 PM Modules accepted: Orders documented in this encounter Plan of Treatment Not on file documented as of this encounter Procedures Procedure Name Priority Date/Time Associated Diagnosis Comments DIFFERENTIAL, AUTOMATED Routine 06/14/2013 2:16 PM EDT CBC (WITH DIFF) Routine 06/14/2013 2:16 PM EDT S/P prostatectomy PSA (ULTRASENSITIVE) STAT 06/14/2013 2:16 PM EDT Prostate cancer documented in this encounter Results * PSA (09/13/2013 11:54 AM EST) PSA Total (Ultrasensitiv e) <0.03 0.00 - 4.00 ng/mL CERNER MILLENNIUM Blood specimen (specimen) 09/13/2013 11:54 AM EST 09/13/2013 12:08 PM EST Narrative Resulting Agency Comment Spec In Lab Ross Madrid MD CHEMISTRY ORDERABLES CERDAKSHA HARTMANENNIUM * Differential, Automated (06/14/2013 2:16 PM EDT) Neutrophils % 65.5 34.0 - 71.0 % CERNER MILLENNIUM Neutr Abs (ANC) 4.91 1.50 - 6.30 x10(3)/mcL CERNER MILLENNIUM Lymphocytes % 19.8 19.0 - 53.0 % CERNER MILLENNIUM Lymphocytes Abs 1.5 1.0 - 3.6 x10(3)/mcL CERNER MILLENNIUM Monocytes % 6.4 4.0 - 13.0 % CERNER MILLENNIUM Monocyte Abs 0.5 0.2 - 1.0 x10(3)/mcL CERNER MILLENNIUM Eosinophils % 6.3 0.0 - 7.0 % CERNER MILLENNIUM Eosinophils Abs 0.5 0.0 - 0.5 x10(3)/mcL CERNER MILLENNIUM Basophils % 1.6 0.0 - 2.0 % CERNER MILLENNIUM Basophils Abs 0.1 0.0 - 0.2 x10(3)/mcL CERNER MILLENNIUM Immature Gran % 0.40 0.00 - 0.66 % CERNER MILLENNIUM Comment: Immature granulocytes(IG's)percentage and absolute count will include metamyelocytes, myelocytes, and promyelocytes. Blood smears from CBCs yielding IG's will be scanned manually for concordance. If this scan disagrees with the automated IG or if promyelocytes are noted, a manual differential will be performed. Yeni Gran Abs 0.03 0.00 - 0.05 x10(3)/mcL CERNER MILLENNIUM Blood specimen (specimen) 06/14/2013 2:16 PM EDT 06/14/2013 2:26 PM EDT Ross Madrid MD HEMATOLOGY ORDERABLE [facility] * (ABNORMAL) CBC (with Diff) (06/14/2013 2:16 PM EDT) WBC 7.5 4.0 - 10.0 x10(3)/mcL CERNER MILLENNIUM RBC 5.09 4.63 - 6.08 x10(6)/mcL CERNER MILLENNIUM Hemoglobin 15.3 13.7 - 17.5 gm/dL CERNER MILLENNIUM Hematocrit 48.5 40.0 - 51.0 % CERNER MILLENNIUM MCV 95.3(H) 79.0 - 92.0 fL CERNER MILLENNIUM MCH 30.1 25.6 - 32.2 pg CERNER MILLENNIUM MCHC 31.5(L) 32.0 - 36.5 gm/dL CERNER MILLENNIUM Platelets 216 145 - 370 x10(3)/mcL CERNER MILLENNIUM RDWSD 59.2(H) 35.0 - 46.0 fL CERNER MILLENNIUM RDWCV 17.1(H) 10.9 - 14.4 % DANETTE HARTMANENNIUM MPV 10.3 9.0 - 12.0 fL DANETTE PRIDEIUM Blood specimen (specimen) 06/14/2013 2:16 PM EDT 06/14/2013 2:26 PM EDT Narrative Resulting Agency Comment Spec In Lab Ross Madrid MD HEMATOLOGY ORDERABLE S DANETTE VALENCIA * PSA (06/14/2013 2:16 PM EDT) PSA Total (Ultrasensitiv e) <0.03 0.00 - 4.00 ng/mL DANETTE PRIDEIUM Blood specimen (specimen) 06/14/2013 2:16 PM EDT 06/14/2013 2:26 PM EDT Narrative Resulting Agency Comment Spec In Lab Ross Madrid MD CHEMISTRY ORDERABLES Performing Organization Address City/[facility] Co de Phone Number DANETTE VALENCIA documented in this encounter Visit Diagnoses Diagnosis Prostate cancer- Primary Malignant neoplasm of prostate S/P prostatectomy Other postprocedural status documented in this encounter Care Teams Medical File Clerk Relationship Specialty Start Date End Date Farnaz Pineda MD [address] [place] [address] PCP - General 10/26/12 documented as of this encounter
--- OUTSIDE RECORDS SUMMARY | 2024-04-20 15:06 | XMS_ITS | Encounter Summary ---
Author Organization [facility] [place] [address] Care Team Providers Care Fretted String Instrument Repairer Name Role Phone Farnaz Pineda MD Primary Care Provider [phone] Encounter Details Date Type Department Care Team (Late st Contact Info) Description 12/12/2013 [place] [phone] Ross Madrid MD [facility] [place] [address] Elevated PSA (Primary Dx) Social History Tobacco Use Types [...] as of this encounter Results * PSA (12/13/2013 11:47 AM EST) PSA Total (Ultrasensitiv e) <0.03 0.00 - 4.00 ng/mL [facility] Blood specimen (specimen) 12/13/2013 11:47 AM EST 12/13/2013 11:50 AM EST Narrative Resulting Agency Comment Spec In Lab Ross Madrid MD CHEMISTRY ORDERABLES Performing Organization Address City/State/[facility] Co de Phone Number DANETTE [facility] documented in this encounter Visit Diagnoses Diagnosis Elevated PSA- Primary Elevated prostate specific antigen (PSA) documented in this encounter Care Teams Fretted String Instrument Repairer Relationship Specialty Start Date End Date Farnaz Pineda MD [address] [place] [address] PCP - General 10/26/12 documented as of this encounter
--- OUTSIDE RECORDS SUMMARY | 2024-04-20 15:06 | XMS_ITS | Encounter Summary ---
Author Organization [facility] [place] [address] Care Team Providers Care Medical Records Receptionist Name Role Phone Farnaz Pineda MD Primary Care Provider [phone] Encounter Details Date Type Department Care Team (Late st Contact Info) Description 06/13/2013 [place] [phone] Ross Madrid MD [facility] [place] [address] Social History Tobacco Use Types Packs/Day Years [...] on filedocumented in this encounter Care Teams Medical Records Receptionist Relationship Specialty Start Date End Date Farnaz Pineda MD [address] [place] [address] PCP - General 10/26/12 documented as of this encounter
--- OUTSIDE RECORDS SUMMARY | 2024-04-20 15:06 | XMS_ITS | Encounter Summary ---
Author Organization [facility] [place] [address] Care Team Providers Care Clinical Documentation Improvement Specialist Name Role Phone Farnaz Pineda MD Primary Care Provider [phone] Encounter Details Date Type Department Care Team (Late st Contact Info) Description 03/07/2013 9:00 AM EDT [place] [address] Encounter for removal of urinary catheter (Primary Dx) Social History Tobacco Use Types [...] as of this encounter Progress Notes * Nneka García LPN - 03/08/2013 11:37 AM EDT Patient presents today for a voiding trial and catheter removal s/p robotic prostatectomy . The patient is already on Ciprofloxacin 500mg 1 po All incisions well approximated. No signs of infection noted. Procedure: 40 cc normal saline instilled via womack catheter. Balloon deflated. Womack gently removed. Patient voided 50 cc's. FOS good. fair control. Kegals practiced at this time. All instructions and literature reviewed with patient. Patient verbalized understanding of instructions. Supplies given: packet and male pads PVR: 0 cc measured in the supine position with the bladder scanner shortly after the patient had voided. NNEKA GARCÍA LPN documented in this encounter Plan of Treatment Not on file documented as of this encounter Visit Diagnoses Diagnosis Encounter for removal of urinary catheter- Primary Fitting and adjustment of urinary device documented in this encounter Care Teams Clinical Documentation Improvement Specialist Relationship Specialty Start Date End Date Farnaz Pineda MD [address] [place] [address] PCP - General 10/26/12 documented as of this encounter
--- OUTSIDE RECORDS SUMMARY | 2024-04-20 15:06 | XMS_ITS | Encounter Summary ---
Author Organization [facility] [place] [address] Care Team Providers Care Electroformer Name Role Phone Farnaz Pineda MD Primary Care Provider [phone] Encounter Details Date Type Department Care Team (Late st Contact Info) Description 03/22/2023 Telephone [place] [phone] Ute Danielle MD [facility] [place] [address] Social History Tobacco Use Types Packs/Day Years [...] encounter Miscellaneous Notes * Telephone Encounter - Ute Danielle MD - 03/22/2023 4:18 PM EDT Images from the original note were not included. DIVISION OF GASTROENTEROLOGY & HEPATOLOGY [facility] CALL Name: Sylvain Rodgers Date: 03/22/2023 Time: 4:19 PM Referring Location: [facility] Referring Provider: Dr. Urbano 73yo M w/PMH of prostatectomy, aortic valve replacement (?) 20 yrs ago on coumadin who presented there with 5 gross bloody Bms c/f lower GI bleed while on coumadin. No pain, light-headedness or dizziness. As below, vitals are stable and Hgb 12.8. About every 90 mins, has been having bloody Bms. Hasnever had this before. They are worried he needs to be somewhere with the ability to perform emergent endoscopy. Vitals: Afebrile, HR 95, BP 130/85, 99% on RA Labs: HH 12.8 40.3 INR 2.3 No imaging. Prior colonoscopy in 2010 (?) w/polyps Given the above, recommend supportive care w/2 large bore IVs, trend H/H, transfuse as needed. If able, would recommend CT GI bleed protocol to see if active extrav that. Certainly needs endoscopic evaluation in the next 1-2 days, as c/f diverticular bleeding. I am told we do not have capacity to accommodate a transfer here. I recommend they look into other facilities that might be able to take him, or, if he remains stable, could prep him for colonoscopy and try to bring him as a here and backprocedure. They appreciated the consult and will let us know if they need our assistance. This is not an official consult, as my recommendations are limited by my inability to interview andexamine the patient as well as personally review the medical record, imaging, and laboratory findings. Ute Danielle MD PGY-4, Gastroenterology documented in this encounter Plan of Treatment Not on file documented as of this encounter Visit Diagnoses Not on filedocumented in this encounter Care Teams Electroformer Relationship Specialty Start Date End Date Farnaz Pineda MD [address] [place] [address] PCP - General 10/26/12 documented as of this encounter
--- OUTSIDE RECORDS SUMMARY | 2024-04-20 15:06 | XMS_ITS | Encounter Summary ---
Author Organization [place] [address] Care Team Providers Care Activity Therapy Teacher Name Role Phone Farnaz Pineda MD Primary Care Provider [phone] Encounter Details Date Type Department Care Team (Latest Contact Info) Description 02/26/2021 2:00 PM EDT Laboratory Appointment Lab [address] [place] [address] Malignant neoplasm of prostate Social [...] Date/Time Associated Diagnosis Comments HC VENIPUNCTURE STAT 02/26/2021 2:31 PM EDT Malignant neoplasm of prostate documented in this encounter Results * PSA (Ultrasensitive) (02/26/2021 2:31 PM EDT) PSA Total (Ultrasensitive ) <0.01 0.00 - 4.00 ng/mL [facility] Comment: PLEASE NOTE: The above reference interval is intended for healthy males with an intact prostate. Values within this reference interval may indicate recurrence in men who have undergone radical prostatectomy. Blood 02/26/2021 2:31 PM EDT 02/26/2021 3:00 PM EDT Narrative Resulting Agency Comment Spec In Lab Leonardo Barrios MD CHEMISTRY ORDERABL ES [facility] [place] [address] documented in this encounter Visit Diagnoses Diagnosis Malignant neoplasm of prostate documented in this encounter Care Teams Activity Therapy Teacher Relationship Specialty Start Date End Date Farnaz Pineda MD [address] [place] [address] PCP - General 10/26/12 documented as of this encounter
--- OUTSIDE RECORDS SUMMARY | 2024-04-20 15:06 | XMS_ITS | Encounter Summary ---
Author Organization [facility] [place] [address] Care Team Providers Care Navigation Officer Name Role Phone Farnaz Pineda MD Primary Care Provider [phone] Encounter Details Date Type Department Care Team (Late st Contact Info) Description 01/26/2019 [place] [address] Leonardo Barrios MD [facility] [place] [address] Social History Tobacco Use Types Packs/Day Years [...] on filedocumented in this encounter Care Teams Navigation Officer Relationship Specialty Start Date End Date Farnaz Pineda MD [address] [place] [address] PCP - General 10/26/12 documented as of this encounter
--- OUTSIDE RECORDS SUMMARY | 2024-04-20 15:06 | XMS_ITS | Encounter Summary ---
Author Organization [facility] [place] [address] Care Team Providers Care Windmill Technician Name Role Phone Farnaz Pineda MD Primary Care Provider Encounter Details Date Type Department Care Team (Late st Contact Info) Description 03/23/2022 10:40 AM EDT TH Visit (TeleHealth) [place] [phone] Leonardo Barrios MD [facility] [place] [address] Malignant neoplasm of prostate Social History Tobacco [...] Progress Notes * Leonardo Barrios MD - 03/23/2022 10:40 AM EDT Mr. Rodgers follows up today with a complex history. He has a history of clinically high risk prostate cancer (biopsy [place] 4+5=9, PSA 7.1, cT1c). He underwent NNS [...] metal AVR. ?? 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 Pike for SHELDON and ED. Plan is for pelvic floor PT. He is holding off on IPP at this point. PSA is <0.01 Exam: ?? Not done (telephone) A/P #s/p radical prostatectomy with reassuring PSA follow up. Repeat PSA in 1 year. # Continue to follow with Dr. Pike regarding ED / SHE[place] Patient verbally consents to this telephone visit [...] prostate documented in this encounter Care Teams Windmill Technician Relationship Specialty Start Date End Date Farnaz Pineda MD [address] [place] [address] PCP - General 10/26/12 documented as of this encounter
--- OUTSIDE RECORDS SUMMARY | 2024-04-20 15:06 | XMS_ITS | Encounter Summary ---
Author Organization [facility] [place] [address] Care Team Providers Care Gas Examiner Name Role Phone Farnaz Pineda MD Primary Care Provider [phone] Encounter Details Date Type Department Care Team (Late st Contact Info) Description 12/13/2013 12:30 PM EST Office [place] [phone] Ross Madrid MD [facility] [place] [address] Elevated PSA (Primary Dx); Male erectile dysfunction Discharge Disposition: Home Social History Tobacco Use [...] Sign Reading Time Taken Comments Blood Pressure 113/73 12/13/2013 12:56 PM EST Pulse 75 12/13/2013 12:56 PM EST Temperature - - Respiratory Rate 16 12/13/2013 12:56 PM EST Oxygen Saturation - - Inhaled Oxygen Concentration - - Weight 84.8 kg (187 lb) 12/13/2013 12:56 PM EST Height 174 cm (5' 8.5) 12/13/2013 12:56 PM EST Body Mass Index 28.02 12/13/2013 12:56 PM EST documented in this encounter Progress Notes * Alisa Dominguez LPN - 12/13/2013 2:12 PM EST The patient presents for injection therapy teaching for erectile dysfunction per Dr Madrid. The patient has not had success with oral medications. The patient is aware of the literature on side effects of theTriple-P which was reviewed with the patient. All instructions on how to prepare and give the injections were reviewed with the patient. The patient's is a nurse was taught to inject and draw up medication. The will inject when the medication. She will call with results. ALISA DOMINGUEZ LPN * Ross Madrid MD - 12/13/2013 1:04 PM EST Mr. Rodgers follows up today with a complex history. He has a history of clinically high risk prostate cancer (biopsy [place] 4+5=9, PSA 7.1, cT1c). He underwent NNS [...] and he uses a pad per day. Often it is dry. He drinks copiously (1 gallon/day) for his current diet for weight loss and feels that a full bladder has contributed to his small intermittent leakage. He denies gross hematuria. No recurrent erections but +sensitivity. Has tried viagra without effect. At last visit, was interested in injection therapy after the 1 year point if no ability to penetrate. His last PSA was <0.03 in 09/21. Today his PSA is <0.03 as well. Exam: S NTND No CVAT Soft reducible umbilical hernia A: Higher risk prostate cancer is MADI Stress incontinence nearly resolved Erectile dysfunction Umbilical hernia P: PSA in 6 months, then 1 year, then annually if undetectable. Education re: penile injection therapy; Alisa to meet with patient shortly. He will seek general surgery consultation for umbilical hernia repair His questions were answered in detail. 16 of 17 min spent in counseling and coordination of care. documented in this encounter Miscellaneous Notes * Addendum Note - Alisa Dominguez LPN - 12/13/2013 2:16 PM ESTAddended by: ALISA DOMINGUEZ on: 12/13/2013 02:16 PM Modules accepted: Orders documented in this encounter Plan of Treatment Not on file documented as of this encounter Procedures Procedure Name Priority Date/Time Associated Diagnosis Comments PSA (ULTRASENSITIVE) STAT 12/13/2013 11:47 AM EST Elevated PSA documented in this encounter Results * PSA (12/13/2013 11:47 AM EST) PSA Total (Ultrasensitiv e) <0.03 0.00 - 4.00 ng/mL DANETTE VALENCIA Blood specimen (specimen) 12/13/2013 11:47 AM EST 12/13/2013 11:50 AM EST Narrative Resulting Agency Comment Spec In Lab Ross Madrid MD CHEMISTRY ORDERABLES [facility] [employer] documented in this encounter Visit Diagnoses Diagnosis Elevated PSA- Primary Elevated prostate specific antigen (PSA) Male erectile dysfunction Impotence of organic origin documented in this encounter Care Teams Gas Examiner Relationship Specialty Start Date End Date Farnaz Pineda MD [address] [place] [address] PCP - General 10/26/12 documented as of this encounter
--- OUTSIDE RECORDS SUMMARY | 2024-04-20 15:06 | XMS_ITS | Encounter Summary ---
Author Organization [facility] [place] [address] Care Team Providers Care Check Cashier Name Role Phone Farnaz Pineda MD Primary Care Provider [phone] Encounter Details Date Type Department Care Team (Late st Contact Info) Description 06/12/2014 [place] [phone] Ross Madrid MD [facility] [place] [address] Elevated PSA (Primary Dx) Social History Tobacco [...] as of this encounter Results * PSA (06/20/2014 1:16 PM EDT) PSA Total (Ultrasensitiv e) <0.03 0.00 - 4.00 ng/mL [facility] Blood specimen (specimen) 06/20/2014 1:16 PM EDT 06/20/2014 1:22 PM EDT Narrative Resulting Agency Comment Spec In Lab Ross Madrid MD CHEMISTRY ORDERABLES Performing Organization Address City/State/ZIP Co il Phone Number DANETTE [facility] documented in this encounter Visit Diagnoses Diagnosis Elevated PSA- Primary Elevated prostate specific antigen (PSA) documented in this encounter Care Teams Check Cashier Relationship Specialty Start Date End Date Farnaz Pineda MD [address] [place] [address] PCP - General 10/26/12 documented as of this encounter
--- OUTSIDE RECORDS SUMMARY | 2024-04-20 15:06 | XMS_ITS | Encounter Summary ---
Author Organization [facility] [place] [address] Care Team Providers Care Retail Tire Sales Manager Name Role Phone Farnaz Pineda MD Primary Care Provider [phone] Reason for Visit * Physical Therapy (Routine) - Closed Specialty Diagnoses / Procedures Referred By Berta tavera Referred To Contact Physical Therapy Diagnoses SHELDON (stress urinary incontinence), male Bartolome Pike MD [facility] [address] [facility] [address] [place] [address] Referral ID Status Reason Start Date Expiration Date V isits Requested Visits Authorized [id number] Closed Evaluate and Treat 03/18/2022 03/18/2023 100 100 Encounter Details Date Type Department Care Team (Late st Contact Info) Description 07/06/2022 2:00 PM EDT Office Visit Physical Therapy at [address] [place] [address] Lolita Jacob, PT [facility] [place] [address] SHELDON (stress urinary incontinence), male Social History [...] as of this encounter Miscellaneous Notes * Initial Evaluation - Lolita Jacob, PT - 07/06/2022 2:00 PM EDT PHYSICAL THERAPY INITIAL EXAMINATION: PELVIC FLOOR MALE Date of Exam/First Treatment: 07/06/2022 Date of onset: 10 years Referring Provider: Bartolome Pike MD Primary Insurance: Payor: Make Meaning [facility] MEDICARE / Plan: [place] Infogram / Product Type: *No Product type* / Diagnosis and Pertinent Co-morbidities affecting Plan of Care: ICD-10-CM 1. SHELDON (stress urinary incontinence), male N39.3 Medicare Certification period: 07/06/2022 - 10/05/22 CURRENT HISTORY: History of current problem: Sylvain Rodgers is a 72 y.o. male referred to physical therapy for lev ani tightness associated with SHELDON. The patient states that he had hematuria and blood clots 10 years ago after his proctectomy. After the pushing to pass the blood clots left him with SHELDON. He wears a maxi pad every day. Mostly with exertion. Denies trouble with bowels. Patient's expressed goals for treatment: decrease SHELDON PELVIC FLOOR MALE INTAKE QUESTIONNAIRE Section 1: Present Issue PF MALE PRESENT ISSUE 07/06/2022 When did your pelvic floor problem begin? November 2012 Is your pelvic issue getting: Staying the same Section 2: History PF MALE HISTORY 07/06/2022 Have you had any Prostate surgery or Radiation treatments? Prostatectomy Dates of prostate surgeries? October 2012 Section 3: Pelvic Pain PF MALE PELVIC PAIN 07/06/2022 Do you participate in regular sexual activity? No Have you ever had prostatitis? No Do you have pain with a rectal exam? No Do you have pain with sitting? No Do you have any of the following areas of pain (check all that apply): N/A Do you have a history of abuse or trauma? No Section 4: Bladder Symptoms - Incontinence PF MALE BLADDER SYMPTOMS INCONTINENCE 07/06/2022 Do you have Leakage with: (check all that apply) Bending, Coughing, Lifting, Exercise Frequency of leakage: (check all that apply) Daily, Only with exercise Severity of leakage: (Select all that apply) Drops Section 5: Bladder Symptoms - Voiding PF MALE BLADDER SYMPTOMS VOIDING 07/06/2022 Do you have pain or burning when voiding? No Do you see blood in your urine? No Do you have frequent urinary tract infections (more than 3 times in 6 months)? No Would you describe your bladder sensation during filling as one of the following? Normal Do you usually experience frequent urination? No Number of daytime voids? (from the moment you wake up until you go to bed): 5 Number of nighttime voids? (get up from sleep to void): 1 Section 6: Bowel Symptoms PF MALE BOWEL SYMPTOMS 07/06/2022 Do you move your bowels Daily How often do you move your bowels in a day? 1 What is your stool consistency? Normal Do you include fiber in your diet? Yes Do you use laxatives or enemas regularly to maintain normal bowel function? No Do you experience a strong urge or urgency and have to garcia to the bathroom to have a bowel movement? No Do you usually have pain when you pass stool? No Do you have a history of constipation? No Do you have diarrhea often? (either weekly or monthly) No Do you ever ignore the urge to defecate? No Do you lose stool beyond your control if the stool is well formed? No Do you lose stool beyond your control if the stool is loose or liquid? No Do you lose gas from your rectum beyond your control? No Do you feel you need to strain too hard to have a bowel movement? No Do you have to manually push on rectum to have or complete a bowel movement? No Do you feel you have not completely emptied your bowels at the end of a bowl movement? No Section 7: Fluid Intake PF MALE FLUID INTAKE 07/06/2022 Do you drink any of the following? (Check all that apply) Coffee / Tea / Soda - caffeinated, Diet Drinks - decaffeinated How many ounces per day of non-caffeinated drinks do you drink? (Water, decaffeinated tea, juice, etc.) 16 oz (2 glasses) How many ounces per day of caffeinated drinks do you drink? (Coffee, Tea, etc.) 24 oz (3 glasses) How many ounces per day of alcoholic beverages do you drink? 8 oz / (1 glass) Medical/Surgical History: Past Medical History: Diagnosis Date ??? Antiplatelet or antithrombotic long-term use coumadin ??? Asthma stress induced. Advair 2xdaily. has not used rescue inhaler for a very long time. ??? Cancer ??? Gastroesophageal reflux prilosec ??? Heart valve disease aortic valve replacemnt ??? Hypothyroid snythroid ??? Pulmonary emboli filter in groin d/t DVT. ??? Transfusion history during valve replacement and prostectomy. Anemia. No reactions. Prior Level of Function: prior to surgery and blood clots no trouble with SHELDON Functional Limitations: SHELDON CLINICAL FINDINGS: EXAMINATION OBJECTIVE: OBSERVATION: Patient is a very pleasant man in no acute distress POSTURE: Sacrum sitting STRENGTH: lower extremity grossly 4+/5 Patient gives verbal consent to external and internal exam. Rectal Exam: External anal sphincter: strength 4/5, tone: 4/5, hold time: 5 seconds SEMG: with internal electrode in supine: Resting Rate: 30 uV Quick flicks: 50uV x 3 reps Long Hold: 44 uV x 5 seconds x 2 reps CLINICAL EVALUATION AND DIAGNOSIS: Assessment: These findings are consistent with muscle spasm, pelvic floor dysfunction and stress urinary incontinence Patient presents with: overactive pelvic floor muscles, impaired strength, impaired coordination and impaired endurance Physical therapy is indicated to: increase pelvic floor strength, increase endurance and increase coordination Clinical Presentation: Stable Evolving Unstable x Notes: worsening GOALS: Goals: Short term goals (4 weeks) [...] by using zinc oxide every day Goals: halfway goals (3 months) 1. Patient to be independent with ongoing self management. 2. Patient will have decreased number of SHELDON by 25%. 3. ADL???s not limited by UI, urgency or frequency. PLAN: Frequency: 1 time in 2 weeks for 6 sessions Plan of care: therapeutic exercise, pelvic floor muscle exercises, SEMG, STM/MFR, stretching, patient/family education, home exercise program, relaxation/downtraining Informed Consent: The patient consented to the physical therapy evaluation. The patient agrees to and understands thephysical therapy treatment plan and goals. INITIAL TREATMENT INCLUDED: Examination and instruction in a home exercise program, patient education regarding physical therapy plan of care, anatomy and diagnosis. Interventions completed today: initial evaluation, patient education, strengthening and home exercise program including relaxationwith self massage and breathing Total Treatment time: 60 minutes: Total Timed Code Treatment: 15 minutes LOLITA JACOB PT documented in this encounter Plan of Treatment Not on file documented as of this encounter Procedures Procedure Name Priority Date/Time Associated Diagnosis Comments PT PLAN OF CARE CERT/RE-CERT Routine 07/06/2022 3:26 PM EDT SHELDON (stress urinary incontinence), male documented in this encounter Visit Diagnoses Diagnosis SHELDON (stress urinary incontinence), male Stress incontinence, male documented in this encounter Care Teams Retail Tire Sales Manager Relationship Specialty Start Date End Date Farnaz Pineda MD [address] [place] [address] PCP - General 10/26/12 documented as of this encounter
--- OUTSIDE RECORDS SUMMARY | 2024-04-20 15:06 | XMS_ITS | Encounter Summary ---
Author Organization [facility] [place] [address] Care Team Providers Care Generation Manager Name Role Phone Farnaz Pineda MD Primary Care Provider [phone] Encounter Details Date Type Department Care Team (Late st Contact Info) Description 01/19/2018 1:40 PM EDT [place] [id number] Leonardo Barrios MD [facility] [place] [address] Malignant neoplasm of prostate Social History Tobacco [...] Sign Reading Time Taken Comments Blood Pressure 115/75 01/19/2018 1:34 PM EDT Pulse 78 01/19/2018 1:34 PM EDT Temperature 36.8 ??C (98.2 ??F) 01/19/2018 1:34 PM ED T Respiratory Rate - - Oxygen Saturation 95% 01/19/2018 1:34 PM EDT Inhaled Oxygen Concentration - - Weight - - Height - - Body Mass Index - - documented in this encounter Progress Notes * Yonathan Quintero MD - 01/19/2018 1:40 PM EDT Mr. Rodgers follows up today with a complex history. He has a history of clinically high risk prostate cancer (biopsy [place] 4+5=9, PSA 7.1, cT1c). He underwent NNS [...] with tertiary 5, negative margins, negative LN. We have not seen him since August 2016. At that time had mild SHELDON, sporadic w/ coughing. No urge or UUI. 1 pad/ day, mild leakage. Not particularly bothered but considering pelvic floor PT. Was also working with injection therapy for erections with unsatisfactory results and viagra w/o effect. In the interval he reports now he is having a light amount of leakage, this happens during stress maneuvers (lifting heavy items, physical activity) and results in a few drops on his pad. He wears one pad per day. When asked about injection therapy for erectile dysfunction his main complaint was burning sensation following injection. He finds the injection process itself bothersome and kills the mood. Following injection he did not obtain satisfactory erections regardless. PSA history Ref. Range 06/14/2013 14:16 09/13/2013 11:54 12/13/2013 11:47 06/20/2014 13:16 01/14/2015 09:43 01/26/2016 14:09 PSA Total Latest Ref Range: 0.00 - 4.00 ng/mL <0.03 <0.03 <0.03 <0.03 <0.03 <0.03 PSA Free Latest Units: ng/mL <0.1 PSA % Free Unknown Not Calculated Today PSA is <0.01 Exam: ?? Gen: NAD CV: RRR P: normal WOB Abd: soft, non-tender, no CVAT ?? A/P #s/p radical prostatectomy with reassuring PSA follow up. Repeat PSA in 1 year. # Stress urinary incontinence - minimal at this point, essentially no bother to patient. # Erectile dysfunction - s/p failed viagra, failed triple P injection therapy. Prior referral to Dr. Pike did not work for him at the time, however now he reports he is fully retired and would like to follow this up. I have seen the patient and reviewed the resident's above history and I agree with the details as written. The assessment and plan were formulated in discussion with me and I agree with them as documented. documented in this encounter Plan of Treatment Not on file documented as of this encounter Visit Diagnoses Diagnosis Malignant neoplasm of prostate documented in this encounter Care Teams Generation Manager Relationship Specialty Start Date End Date Farnaz Pineda MD [address] [place] [address] PCP - General 10/26/12 documented as of this encounter
--- OUTSIDE RECORDS SUMMARY | 2024-04-20 15:06 | XMS_ITS | Encounter Summary ---
Author Organization [facility] [place] [address] Care Team Providers Care Crime Scene Analyst Name Role Phone Farnaz Pineda MD Primary Care Provider [phone] Encounter Details Date Type Department Care Team (Late st Contact Info) Description 12/23/2017 [place] [phone] Leonardo Barrios MD [facility] [place] [address] Elevated PSA Social History Tobacco Use Types [...] as of this encounter Results * PSA (01/19/2018 1:09 PM EDT) PSA Total (Ultrasensitiv e) <0.01 0.00 - 4.00 ng/mL [facility] Blood specimen (specimen) 01/19/2018 1:09 PM EDT 01/19/2018 1:18 PM EDT Narrative Resulting Agency Comment Spec In Lab Leonardo Barrios MD CHEMISTRY ORDERABL ES [facility] [place] [place] [address] documented in this encounter Visit Diagnoses Diagnosis Elevated PSA Elevated prostate specific antigen (PSA) documented in this encounter Care Teams Crime Scene Analyst Relationship Specialty Start Date End Date Farnaz Pineda MD [address] [place] [address] PCP - General 10/26/12 documented as of this encounter
--- OUTSIDE RECORDS SUMMARY | 2024-04-20 15:06 | XMS_ITS | Encounter Summary ---
Author Organization [facility] [place] [address] Care Team Providers Care Sweeping Compound Blender Name Role Phone Farnaz Pineda MD Primary Care Provider [phone] Encounter Details Date Type Department Care Team (Late st Contact Info) Description 08/10/2018 Telephone Urology at [address] [address] Charley Higgins RN Social History Tobacco Use Types Packs/Day [...] encounter Miscellaneous Notes * Telephone Encounter - Charley Higgins RN - 08/10/2018 9:36 AM EDT Pt called this morning and left a message that he would like to cancel his surgery with tomorrow on 08/11. Called back the pt to confirm this information. Pt reports that after thinking more about this procedure that this not the right time to being do this. Also that he is concerned that he can't undo this procedure. Offered the pt a follow up appointment with to discuss furtherurology treatment and pt declined at this time. Pt reports that he is going to leave things alone at this time and will call the office if he needs an appointment. documented in this encounter Plan of Treatment Not on file documented as of this encounter Visit Diagnoses Not on filedocumented in this encounter Care Teams Sweeping Compound Blender Relationship Specialty Start Date End Date Farnaz Pineda MD [address] [place] [address] PCP - General 10/26/12 documented as of this encounter
--- OUTSIDE RECORDS SUMMARY | 2024-04-20 15:06 | XMS_ITS | Encounter Summary ---
Author Organization [facility]ly [facility] Address [facility] [place] [address] Care Team Providers Care Wave Guide Assembler Name Role Phone Farnaz Pineda MD Primary Care Provider Reason for Referral * Physical Therapy (Routine) - Closed Specialty Diagnoses / Procedures Referred By Berta tavera Referred To Contact Physical Therapy Diagnoses Stress incontinence, male Ross Madrid MD [facility] [place] [address] [address] [place] [address] Referral ID Status Reason Start Date Expiration Date V isits Requested Visits Authorized [id number] Closed Evaluate and Treat 08/23/2016 08/23/2017 1 1 Encounter Details Date Type Department Care Team (Late st Contact Info) Description 08/23/2016 Tele[place] [phone] Ross Madrid MD [facility] [place] [address] Social History Tobacco Use Types Packs/Day Years [...] encounter Miscellaneous Notes * Telephone Encounter - Ross Madrid MD - 08/23/2016 3:58 PM EST Mr. Rodgers called to speak about incontinence and ED. He wears 1 pad / day and is bothered by SHELDON. His symptoms sounds primarily stress related. He does drink copious coffee (5 cups / day). He has not undergone pelvic floor PT. I recommended, to start, that he gradually reduce/eliminate coffee or transition to decaf, as this is a significant bladder irritant and diuretic, and that he have a consultation with pelvic floor PT. I will order a consultation here at , and he will explore local options for PT in the interim. We discussed the option of male sling or AUS if indeed he has refractory sx that continue to be bothersome. Regarding ED, he has tried PDE5i and injections without a satisfactory result. I will refer him to Dr. Pike here at to discuss the option of penile implant. His questions were answered in detail. documented in this encounter Plan of Treatment Scheduled Referrals Name Type Priority Associated Diagnoses Orde r Schedule Referral to Physical Therapy Outpatient Referral Routine Stress incontinence, male Ordered: 08/23/2016 documented as of this encounter Visit Diagnoses Diagnosis Stress incontinence, male documented in this encounter Care Teams Wave Guide Assembler Relationship Specialty Start Date End Date Farnaz Pineda MD [address] [place] [address] PCP - General 10/26/12 documented as of this encounter
--- OUTSIDE RECORDS SUMMARY | 2024-04-20 15:06 | XMS_ITS | Encounter Summary ---
Author Organization [facility] [place] [address] Care Team Providers Care Shallot Packer Name Role Phone Farnaz Pineda MD Primary Care Provider [phone] Encounter Details Date Type Department Care Team (Late st Contact Info) Description 01/14/2015 10:20 AM EDT [place] [phone] Ross Madrid MD [facility] [place] [address] Prostate cancer Discharge Disposition: Home Social History Tobacco Use [...] Sign Reading Time Taken Comments Blood Pressure 123/81 01/14/2015 10:23 AM EDT Pulse 75 01/14/2015 10:23 AM EDT Temperature - - Respiratory Rate - - Oxygen Saturation 98% 01/14/2015 10:23 AM EDT Inhaled Oxygen Concentration - - Weight 90.3 kg (199 lb) 01/14/2015 10:23 AM EDT Height 174 cm (5' 8.5) 01/14/2015 10:23 AM EDT Body Mass Index 29.82 01/14/2015 10:23 AM EDT documented in this encounter Progress Notes * Ross Madrid MD - 01/14/2015 10:31 AM EDT Mr. Rodgers follows up today [...] a metal AVR. 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 He was last seen in 07/23. Today he feels well. SHELDON has essentially resolved. No dysuria or gross hematuria. He tried viagra w/o effect, and injection therapy w/o significant effect. He is considering more injection therapy but not at this time. Last PSA <0.03 in 11/23. Today PSA is <0.03 I inquired w/ vascular surgery at last visit about his IVC filter (Parminder Gaines) and while removal is feasible, there is probably more risk than benefit to removal and he recommended leaving it alone unless patient had strong preference, which he did not. Exam: S NTND No CVAT Soft reducible umbilical hernia A: Higher risk prostate cancer is MADI Stress incontinence nearly resolved Erectile dysfunction on injection therapy Umbilical hernia P: PSA in 1 yr Revisit penile injection therapy prn Discussed red flags for intervention for umbilical hernia; he desires to monitor His questions were answered in detail. 16 of 17 min spent in counseling and coordination of care. documented in this encounter Plan of Treatment Not on file documented as of this encounter Procedures Procedure Name Priority Date/Time Associated Diagnosis Comments PSA (ULTRASENSITIVE), TOTAL AND FREE Routine 01/14/2015 9:43 AM EDT Prostate cancer documented in this encounter Results * PSA, total and free (01/14/2015 9:43 AM EDT) PSA Total (Ultrasensiti ve) <0.03 0.00 - 4.00 ng/mL [facility] PSA Free <0.1 ng/mL [facility] MILLENNIUM PSA % Free Not Calculated [facility] Comment: Probability of finding SPRAY GUNNER on needle biopsy by age in years: [...] In Lab Ross Madrid MD CHEMISTRY ORDERABLES [facility] documented in this encounter Visit Diagnoses Diagnosis Prostate cancer Malignant neoplasm of prostate documented in this encounter Care Teams Shallot Packer Relationship Specialty Start Date End Date Farnaz Pineda MD [address] [place] [address] PCP - General 10/26/12 documented as of this encounter
--- OUTSIDE RECORDS SUMMARY | 2024-04-20 15:06 | XMS_ITS | Encounter Summary ---
Author Organization [facility] [place] [address] Care Team Providers Care Pressroom Supervisor Name Role Phone Farnaz Pineda MD Primary Care Provider [phone] Encounter Details Date Type Department Care Team (Latest Contact Info) Description 03/18/2022 3:20 PM EDT Laboratory Appointment Lab [address] [address] Malignant neoplasm of prostate Social [...] Name Priority Date/Time Associated Diagnosis Comments HC PROSTATE SPECIFIC ANTIGEN STAT 03/18/2022 3:07 PM EDT Malignant neoplasm of prostate documented in this encounter Results * PSA (Ultrasensitive) (03/18/2022 3:07 PM EDT) PSA Total (Ultrasensitive ) <0.01 0.00 - 4.00 ng/mL [facility] Comment: PLEASE NOTE: The above reference interval is intended for healthy males with an intact prostate. Values within this reference interval may indicate recurrence in men who have undergone radical prostatectomy. Blood 03/18/2022 3:07 PM EDT 03/18/2022 3:28 PM EDT Narrative Resulting Agency Comment Spec In Lab Leonardo Barrios MD CHEMISTRY ORDERABL ES [facility] [place] [address] documented in this encounter Visit Diagnoses Diagnosis Malignant neoplasm of prostate documented in this encounter Care Teams Pressroom Supervisor Relationship Specialty Start Date End Date Farnaz Pineda MD [address] [place] [address] PCP - General 10/26/12 documented as of this encounter
--- OUTSIDE RECORDS SUMMARY | 2024-04-20 15:06 | XMS_ITS | Encounter Summary ---
Author Organization [facility] [place] [address] Care Team Providers Care Food Counselor Name Role Phone Farnaz Pineda MD Primary Care Provider [phone] Encounter Details Date Type Department Care Team (Late st Contact Info) Description 07/28/2018 Telephone Urology at [address] [address] Soledad Briscoe LPN Social History [...] Telephone Encounter - Soledad Briscoe LPN - 07/28/2018 10:31 AM EDT Spoke to pt today. A request was faxed to his PCP's office on 07/20/18 regarding lovenox bridging instructions prior to surgery on 08/11 and no response has been received yet. Pt confirmed he receiveda call from his PCP yesterday, but he was not in a position to talk however he will be talking withher today. Will update short stay once confirmation is received. documented in this encounter Plan of Treatment Not on file documented as of this encounter Visit Diagnoses Not on filedocumented in this encounter Care Teams Food Counselor Relationship Specialty Start Date End Date Farnaz Pineda MD [address] [place] [address] PCP - General 10/26/12 documented as of this encounter
--- OUTSIDE RECORDS SUMMARY | 2024-04-20 15:06 | XMS_ITS | Encounter Summary ---
Author Organization [facility] [place] [address] Care Team Providers Care Panel Monitor Name Role Phone Farnaz Pineda MD Primary Care Provider [phone] Encounter Details Date Type Department Care Team (Late st Contact Info) Description 01/27/2016 [place] [phone] Ross Madrid MD [facility] [place] [address] Social History Tobacco Use Types Packs/Day Years [...] on filedocumented in this encounter Care Teams Panel Monitor Relationship Specialty Start Date End Date Farnaz Pineda MD [address] [place] [address] PCP - General 10/26/12 documented as of this encounter
--- OUTSIDE RECORDS SUMMARY | 2024-04-20 15:06 | XMS_ITS | Encounter Summary ---
Author Organization [facility] [place] [address] Care Team Providers Care Fusing Furnace Loader Name Role Phone Farnaz Pineda MD Primary Care Provider [phone] Encounter Details Date Type Department Care Team (Latest Contact Info) Description 08/31/2022 Travel Social History Tobacco Use Types Packs/Day [...] on filedocumented in this encounter Care Teams Fusing Furnace Loader Relationship Specialty Start Date End Date Farnaz Pineda MD [address] [place] [address] PCP - General 10/26/12 documented as of this encounter
--- OUTSIDE RECORDS SUMMARY | 2024-04-20 15:06 | XMS_ITS | Encounter Summary ---
Author Organization [facility] [place] [address] Care Team Providers Care Speech Scientist Name Role Phone Farnaz Pineda MD Primary Care Provider Encounter Details Date Type Department Care Team (Late st Contact Info) Description 07/20/2018 Orders Only Urology at [address] [phone] Bartolome Pike MD [facility] [address] Social History Tobacco Use Types Packs/Day Years [...] on filedocumented in this encounter Care Teams Speech Scientist Relationship Specialty Start Date End Date Farnaz Pineda MD [address] [place], [place] [address] PCP - General 10/26/12 documented as of this encounter
--- OUTSIDE RECORDS SUMMARY | 2024-04-20 15:06 | XMS_ITS | Encounter Summary ---
Author Organization [facility] [place] [address] Care Team Providers Care Pondman Name Role Phone Farnaz Pineda MD Primary Care Provider [phone] Encounter Details Date Type Department Care Team (Late st Contact Info) Description 01/27/2016 [place] [phone] Ross Madrid MD [facility] [place] [address] Social History Tobacco Use Types Packs/Day Years [...] encounter Miscellaneous Notes * Telephone Encounter - Kisha Miller - 01/27/2016 11:47 AM EDT Pt returned your call. If the call was about the prescription, and you need more information, please give him a call. Thanks. documented in this encounter Plan of Treatment Not on file documented as of this encounter Visit Diagnoses Not on filedocumented in this encounter Care Teams Pondman Relationship Specialty Start Date End Date Farnaz Pineda MD [address] [place] [address] PCP - General 10/26/12 documented as of this encounter
--- OUTSIDE RECORDS SUMMARY | 2024-04-20 15:06 | XMS_ITS | Encounter Summary ---
Author Organization [facility] [place] [address] Care Team Providers Care Judicial Administrative Assistant Name Role Phone Farnaz Pineda MD Primary Care Provider [phone] Encounter Details Date Type Department Care Team (Latest Contact Info) Description 07/19/2018 2:20 PM EDT [place] [phone] Bartolome Pike MD [facility] [place] [address] Erectile dysfunction following radical prostatectomy Social History [...] Sign Reading Time Taken Comments Blood Pressure 121/80 07/19/2018 2:33 PM EDT Pulse 66 07/19/2018 2:33 PM EDT Temperature 36.6 ??C (97.8 ??F) 07/19/2018 2:33 PM ED T Respiratory Rate - - Oxygen Saturation - - Inhaled Oxygen Concentration - - Weight - - Height - - Body Mass Index - - documented in this encounter Progress Notes * Bartolome Pike MD - 07/19/2018 2:20 PM EDT Mr. Rodgers is a 68 year old gentleman who presents today to discuss options for erectile dysfunctionmanagement.. He is on coumadin (for a mechanical heart valve). For his most recent surgery (inguinal hernia repair), he was bridged with lovenox. Past medical history is notable for DVT, mechanical valve, depression, GERD, low thyroid, asthma. ?? Past surgical history includes robotic prostatectomy, Mechanical valve placement, filter placement,umbilical hernia repair, left inguinal hernia repair. ?? From a social perspective, he denies smoking. Alcohol usage is 2 [address] drug usage is denied. He is , his is here today. He is retired. ?? Family history is negative for any genitourinary cancers. ?? He has no known drug allergies. ?? His medications were reviewed and are consistent with those in the electronic medical record. ?? A review of systems was performed and he has no pertinent positives, except for those listed in thehistory of present illness. ?? O: On physical exam today he is in general a healthy, well-appearing man. He is awake, alert and oriented to person place and time. Mood and affect are normal. ? Gait: Normal and neurologically intact ? Skin: Warm and dry, no visible scars or lesions ?? HEENT: EOMI, PERRLA, NC/AT ? Lungs: No audible wheezing, normal respiratory effort. Heart: nontachycardic, no m/r/g ? His abdomen is soft, nontender, nondistended. ?? His phallus is circumcised. There are no penile plaques or lesions. He has a patent, orthotopic urinary meatus. Both testes are scrotally located. The bilateral cords are palpable and within normal limits. There are no testicular masses or nodules bilaterally. His scrotum is without edema or erythema. Well healed left inguinal hernia repair. Digital rectal exam was deferred. ?? A: This is a 68-year-old gentleman with erectile dysfunction. We discussed definitive surgical management of this today with an inflatable penile prosthesis. This procedure has been scheduled for August 11. All questions were answered to his satisfaction. Informed consent was obtained after extensive explanation of the risks and benefits of the procedure. Preoperative labs were ordered and preoperative orders are placed. ?? Lovenox bridge to be arranged by PCP, my office will contact to coordinate. I thank you very much for allowing me to participate in his care. Please do not hesitate to contactme with any questions. ?? documented in this encounter Miscellaneous Notes * Addendum Note - Kathleen Main - 07/19/2018 3:20 PM EDTAddended by: KATHLEEN MAIN on: 07/19/2018 03:20 PM Modules accepted: Orders documented in this encounter Plan of Treatment Not on file documented as of this encounter Procedures Procedure Name Priority Date/Time Associated Diagnosis Comments URINE CULTURE Routine 07/19/2018 5:06 PM EDT Erectile dysfunction following radical prostatectomy [place] CULTURE [place] [place] Routine 07/19/2018 5:04 PM EDT Erectile dysfunction following radical prostatectomy HEMOGRAM Routine 07/19/2018 3:25 PM EDT Erectile dysfunction following radical prostatectomy DIFFERENTIAL, AUTOMATED Routine 07/19/2018 3:25 PM EDT Erectile dysfunction following radical prostatectomy CBC (WITH DIFF) Routine 07/19/2018 3:25 PM EDT Erectile dysfunction following radical prostatectomy BASIC METABOLIC PANEL (NON-FASTING) Routine 07/19/2018 3:25 PM EDT Erectile dysfunction following radical prostatectomy EKG 12-LEAD Routine 07/19/2018 3:07 PM EDT Erectile dysfunction following radical prostatectomy documented in this encounter Results * (ABNORMAL) Urine culture Clean Catch Urine (07/19/2018 5:06 PM EDT) Urine Culture 1,000-9,000 cfu/ml Gram Positive organisms , probable contaminant(A ) [facility] Urine specimen obtained by clean catch procedure (specimen) 07/19/2018 5:06 PM EDT 07/19/2018 5:06 PM EDT Narrative Resulting Agency Comment Spec In Lab Bartolome Pike MD MICROBIOLOGY - GENER AL ORDERABLES [facility] [place] [address] * (ABNORMAL) Staph aureus/MRSA Culture Screen Nasal (07/19/2018 5:04 PM EDT) Staphylococcus Screening Culture Staphylococcus aureus isolated(A) [facility] Organism Staphylococcus aureus(A) [facility] Specimen from nose (specimen) 07/19/2018 5:04 PM EDT 07/19/2018 5:04 PM EDT Narrative Resulting Agency Comment Spec In Lab Organism Antibiotic Method Susceptibility Staphylococcus aureus Amoxicillin + Clavulanate MICROS CAN METHOD Sensitive Staphylococcus aureus Ampicillin MICROSCAN METHOD Resistant Staphylococcus aureus Ampicillin + Sulbactam MICROSCAN METHOD Sensitive Staphylococcus aureus Cefazolin MICROSCAN METHOD Sensitive Staphylococcus aureus Ceftriaxone MICROSCAN METHOD Sensitive Staphylococcus aureus Ciprofloxacin MICROSCAN METHOD Sensitive Staphylococcus aureus Clindamycin MICROSCAN METHOD Sensitive Staphylococcus aureus Erythromycin MICROSCAN METHOD Sensitive Staphylococcus aureus Gentamicin MICROSCAN METHOD Sensitive Comment:Gentamicin i s not appropriate for [place]-therapy. Staphylococcus aureus Levofloxacin MICROSCAN METHOD Sensitive Staphylococcus aureus Oxacillin MICROSCAN METHOD Sensitive Staphylococcus aureus Penicillin MICROSCAN METHOD Resistant Comment: Penicillin resistant, Nafcillin susceptible Staphylococci are resistant to B-lactamase labile Penicillins including Ampicillin and Piperacillin, but susceptible to B-lactamase saad Penicillins (Nafcillin), B-lactamase inhibitor combinations, first and second generation Cephalosporins including Cefazolin, and to Cefepime and Meropenem. Staphylococcus aureus Tetracycline MICROSCAN METHOD Sensitive Staphylococcus aureus Trimethoprim/Sulfa MICROSCAN MET HOD Sensitive Staphylococcus aureus Vancomycin MICROSCAN METHOD Sensitive Bartolome Pike MD MICROBIOLOGY - GENER AL ORDERABLES [facility] [place] [address] * (ABNORMAL) Differential, Automated (07/19/2018 3:25 PM EDT) Neutrophils % 64.1 % [facility] Neutr Abs (ANC) 5.12 1.70 - 6.10 x10(3)/[facility] Lymphocytes % 16.8 % [facility] Lymphocytes Abs 1.3 0.9 - 3.2 x10(3)/[facility] Monocytes % 9.5 % [facility] Monocyte Abs 0.8 0.3 - 0.9 x10(3)/[facility] Eosinophils % 7.8 % [facility] Eosinophils Abs 0.6(H) 0.0 - 0.4 x10(3)/[facility] Basophils % 1.3 % [facility] Basophils Abs 0.1 0.0 - 0.1 x10(3)/[facility] Immature Gran % 0.50 % [facility] Comment: Immature granulocytes(IG's)percentage and absolute count will include metamyelocytes, myelocytes, and promyelocytes. Blood smears from CBCs yielding IG's will be scanned manually for concordance. If this scan disagrees with the automated IG or if promyelocytes are noted, a manual differential will be performed. Yeni Gran Abs 0.04 0.00 - 0.04 x10(3)/[facility] Blood specimen (specimen) 07/19/2018 3:25 PM EDT 07/19/2018 3:42 PM EDT Narrative Resulting Agency Comment Spec In Lab Bartolome Pike MD HEMATOLOGY ORDERABLE S [facility] [place] [address] * (ABNORMAL) Hemogram (07/19/2018 3:25 PM EDT) WBC 8.0 4.0 - 9.5 x10(3)/[facility] RBC 4.80 4.58 - 5.54 x10(6)/[facility] Hemoglobin 14.5 13.7 - 16.5 gm/dL [facility] Hematocrit 45.9 40.5 - 48.5 % [facility] MCV 95.6(H) 82.9 - 93.1 fL [facility] MCH 30.2 27.5 - 32.1 pg [facility] MCHC 31.6(L) 32.0 - 35.7 gm/dL [facility] Platelets 249 145 - 357 x10(3)/[facility] RDWSD 56.1(H) 36.0 - 45.0 [facility] RDWCV 15.7(H) 11.4 - 13.8 % [facility] MPV 10.0 7.6 - 12.9 [facility] nRBC % Auto 0.0 % [facility] nRBC Abs Auto 0.000 0.000 - 0.000 x10(3)/[facility] Blood specimen (specimen) 07/19/2018 3:25 PM EDT 07/19/2018 3:42 PM EDT Narrative Resulting Agency Comment Spec In Lab Bartolome Pike MD HEMATOLOGY ORDERABLE S Performing Organization Address City/State/[facility] Co de Phone Number [facility] [place] [address] * (ABNORMAL) Basic Metabolic Panel (non-fasting) (07/19/2018 3:25 PM EDT) Glucose Lvl 89 65 - 199 mg/dL [facility] Comment:Diabetes: >=200 mg/d L plus symptoms BUN 24(H) 10 - 20 mg/dL [facility] Creatinine 1.24 0.80 - 1.50 mg/dL [facility] Sodium 141 135 - 145 mmol/L [facility] Potassium 4.6 3.5 - 5.0 mmol/L [facility] Comment: Please note: ??Patients with WBC >100,000 may have falsely elevated Potassium levels. ??For accurate Potassium quantification in these patients send serum separator tube (gold top) for subsequent determinations. ??Contact the Clinical Chemistry Laboratory if there are any questions. Chloride 102 98 - 107 mmol/L [facility] CO2 25 22 - 31 mmol/L [facility] Anion Gap 14 5 - 15 mmol/L [facility] Calcium 9.6 8.5 - 10.5 mg/dL [facility] Estimated GFR 59(L) >=60 mL/min/1. 73 m?? [facility] Comment: The eGFR was calculated using the CKD-EPI equation. As with all creatinine based estimates of kidney function, eGFR values calculated with the CKD-EPI equation are not accurate in patients with acute kidney failure, extremes of body mass or the acutely ill. [email or web address]/[facility]kf eGFR 69 >=60 mL/min/1. 73 m?? [facility] Comment: The eGFR was calculated using the CKD-EPI equation. As with all creatinine based estimates of kidney function, eGFR values calculated with the CKD-EPI equation are not accurate in patients with acute kidney failure, extremes of body mass or the acutely ill. [email or web address] Blood specimen (specimen) 07/19/2018 3:25 PM EDT 07/19/2018 3:42 PM EDT Narrative Resulting Agency Comment Spec In Lab Bartolome Pike MD CHEMISTRY ORDERABLES [facility] [place] [address] * EKG 12 Lead (07/19/2018 3:07 PM EDT) Ventricular rate 68 BPM MUSE SYSTEM Atrial Rate 68 BPM MUSE SYSTEM P-R Interval 176 ms MUSE SYSTEM QRS Duration 106 ms MUSE SYSTEM Q-T Interval 416 ms MUSE SYSTEM QTC Calculated (Bezet) 442 ms MUSE SYSTEM Calculated P [place] 36 degrees MUSE SYSTEM Calculated R [place] 0 degrees MUSE SYSTEM Calculated T [place] 80 degrees MUSE SYSTEM INTERPRETATION Normal sinus rhythm Possible Inferior infarct , age undetermined Abnormal ECG When compared with ECG of 02-NOV-2012 13:39, No significant change was found Confirmed by MD JUSTA, GAEL ([id number]) on 07/20/2018 9:18:14 PM MUSE SYSTEM 07/19/2018 3:07 PM EDT 07/20/2018 9:18 PM EDT Bartolome Pike MD ECG ORDERABLES MUSE SYSTEM documented in this encounter Visit Diagnoses Diagnosis Erectile dysfunction following radical prostatectomy Impotence of organic origin documented in this encounter Care Teams Judicial Administrative Assistant Relationship Specialty Start Date End Date Farnaz Pineda MD [address] [place] [address] PCP - General 10/26/12 documented as of this encounter
--- OUTSIDE RECORDS SUMMARY | 2024-04-20 15:06 | XMS_ITS | Encounter Summary ---
Author Organization [facility] [place] [address] Care Team Providers Care Minesweeping Officer Name Role Phone Farnaz Pineda MD Primary Care Provider [phone] Encounter Details Date Type Department Care Team (Latest Contact Info) Description 03/21/2018 2:32 PM EDT - 03/21/2018 11:59 PM EDT Hospital [place] [phone] Bartolome Bruce MD [facility] [place] [address] Left groin mass Discharge Disposition: Home Social History Tobacco Use [...] on file documented as of this encounter Medications at Time of Discharge Medication Sig Dispensed Refills Start Date End Date fluticasone propion-salmeteroL (ADVAIR) 250-50 mcg/dose Disk with Device Inhale 1 puff into the lungs every 12 hours. albuterol (PROVENTIL) 5 mg/mL Solution for Nebulization Take 2.5 mg by nebulization every 6 hours as needed for Wheezing. glucosamine sulfate 500 mg Tablet Take 2 tablets by mouth. diphenhydrAMINE (BENADRYL) 25 mg Capsule Take 25 mg by mouth every 6 hours as needed for Allergies. venlafaxine (EFFEXOR) 75 mg tablet Take 75 mg by mouth daily. acetaminophen (TYLENOL) 500 mg tablet Take 2 tablets by mouth every 6 hours as needed for Pain. 30 tablet 0 01/29/2013 omeprazole (PRILOSEC) 20 mg capsule Take 20 mg by mouth daily. warfarin (COUMADIN) 7.5 mg tablet Take 7.5 mg by mouth daily. montelukast (SINGULAIR) 10 mg tablet Take 10 mg by mouth nightly. levothyroxine (SYNTHROID) 50 mcg tablet Take 50 mcg by mouth daily. aspirin 81 mg EC tablet Take 81 mg by mouth daily. 07/28/2018 documented as of this encounter Plan of Treatment Not on file documented as of this encounter Procedures Procedure Name Priority Date/Time Associated Diagnosis Comments US EXTREMITY NON VASCULAR LIMITED ANATOMIC SPECIFIC LEFT Routine 03/21/2018 3:00 PM EDT Left groin mass documented in this encounter Results * US Extremity Non [...] 03:55 pm) PATIENT INFO: ID #: ? [id number] ?: ??[birth year] (68 yrs) Name: ? DILLAN AL ? Visit Date: 03/21/2018 03:01 pm PERFORMED BY: Performed By: ? Farnaz Jonas RDMS Attending: ?Anita Noriega MD Referred By: ?BARTOLOME Botello GROSS Location: ? [place] SERVICE(S) PROVIDED: ??UEXTLMTL - Extremity Limited Non Vascular - Left ?[id number] ??- [id number] INDICATIONS: ??? L inguinal hernia --------- FINDINGS: --------- Title: ? Ultrasound Report Procedure Note Anita Lea MD - 03/21/2018 Ultrasound Report (Signed Final 03/21/2018 03:55 pm) PATIENT INFO: ID #: [id number] : 50 (68 yrs) Name: DILLAN AL Visit Date: 03/21/2018 03:01 pm PERFORMED BY: Performed By: Farnaz Jonas RDMS Attending: Hari NICHOLSON, Anita Mckenzie Referred By: BARTOLOME BRUCE Location: [place] SERVICE(S) PROVIDED: UEXTLMTL - Extremity Limited Non Vascular - Left [id number] - [id number] INDICATIONS: ? L inguinal hernia --------- FINDINGS: --------- Title: Ultrasound Report IMPRESSION No prior studies available for comparison.There is a left inguinal hernia with echogenic tubular structure representing afat-containing hernia versus decompressed bowel with small amount of luminalair. No discrete peristalsis identified during this exam. Anita Noriega-MD Grey Electronically Signed Final Report 03/21/2018 03:55 pm Bartolome Bruce MD IMG US GEN ORDERABLE S documented in this encounter Visit Diagnoses Diagnosis Left groin mass documented in this encounter Care Teams Minesweeping Officer Relationship Specialty Start Date End Date Farnaz Pineda MD [address] [place] [address] PCP - General 10/26/12 documented as of this encounter
--- OUTSIDE RECORDS SUMMARY | 2024-04-20 15:06 | XMS_ITS | Encounter Summary ---
Author Organization [facility] [place] [address] Care Team Providers Care Emergency Services Dispatcher Name Role Phone Farnaz Pineda MD Primary Care Provider [phone] Encounter Details Date Type Department Care Team (Late st Contact Info) Description 08/20/2016 [place] [phone] Ross Madrid MD [facility] [place] [address] Social History Tobacco Use Types Packs/Day Years [...] encounter Miscellaneous Notes * Telephone Encounter - Michael Aguilar RN - 08/20/2016 12:50 PM EST Verified patient name and date of Spoke with the pt and he says he would like to discuss two procedures with Dr Madrid. The pt would like to discuss an implant procedure and a procedure to help with incontinence. The pt says he would like a call on a Tuesday or a Tuesday because those are his days off. Told the pt that his message will be forwarded to Dr Madrid. * Telephone Encounter - Augusto Mansfield - 08/20/2016 11:14 AM EST Pt asked to speak with Dr. Madrid regarding some incontinence issues he has been having since his prostatectomy and there are a few other issues he wishes to speak with Dr. Madrid about. I told him I would give the message to the nurses who can call him and see if they can help him with any of these issues. He requests a call on either a Tuesday or a Tuesday as he is not working on those days. documented in this encounter Plan of Treatment Not on file documented as of this encounter Visit Diagnoses Not on filedocumented in this encounter Care Teams Emergency Services Dispatcher Relationship Specialty Start Date End Date Farnaz Pineda MD [address] [place] [address] PCP - General 10/26/12 documented as of this encounter
--- OUTSIDE RECORDS SUMMARY | 2024-04-20 15:07 | XMS_ITS | Encounter Summary ---
Author Organization [facility] [place] [address] Care Team Providers Care Domestic Technician Name Role Phone Farnaz Pineda MD Primary Care Provider [phone] Reason for Visit * Reason Comments Follow-up Encounter Details Date Type Department Care Team (Late st Contact Info) Description 02/27/2013 12:00 PM EDT Follow-[place] [phone] Cely Baires MD [facility] [place] [address] Abdominal abscess (Primary Dx) Discharge Disposition: Home Social History [...] Sign Reading Time Taken Comments Blood Pressure 106/66 02/27/2013 12:02 PM EDT Pulse 66 02/27/2013 12:02 PM EDT Temperature 36.7 ??C (98.1 ??F) 02/27/2013 12:02 PM E DT Respiratory Rate 20 02/27/2013 12:02 PM EDT Oxygen Saturation - - Inhaled Oxygen Concentration - - Weight - - Height - - Body Mass Index - - documented in this encounter Progress Notes * Cely Baires MD - 02/27/2013 11:52 AM EDT INFECTIOUS DISEASE OPAT CLINIC NOTE Last seen: 02/13/13 PCP: Farnaz Pineda OPAT: Order / Recommendation for Post Discharge IV Antibiotic Management ID Diagnosis: Bacteremia; Infected Hematoma Left Pelvis Microorganisms being treated: E coli, Enterobacter faecalis Antibiotic Allergies: NKA Antibiotic (one line for each ABx): Penicillin 4 MU IV q4h Antibiotic (one line for each ABx): Cipo 500mg po bid Start date: 01/24/2013 Anticipated stop date: when infected hematoma has resolved Labs: Every Tuesday: CBC, CMP, ESR, high sensitivity CRP Responsible Attending: Cely Baires MD Last documented weight (kg): 111.2 kg (245 lb 2.4 oz) Last documented height (cm): 172.7 cm (5' 8) Subjective: Feels very good, 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 No fevers, chills, ns, abdominal pain. Abdominal drain no longer putting out serosanguinous fluid for the past few days. Had been 10 cc/day of red tinged serous fluid last week No diarrhea, no PICC problems. 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 Physical Exam Gen: NAD, nontoxic. A&Ox3. HEENT: PERRLA. No cervical LAD. Pulm: CTAB. Nl effort. Cardio: RRR, mechanical sound of S1, no murmurs, rubs or gallops GI: Abd S/ND/NT w/o rebound or guarding. No jaundice.Nl BS. Back: No CVA TTP. L drain in L flank without fluid. Neuro: No gross deficits noted Skin: No rashes. RUE PICC line OK. Labs 02/26 WBC 11.8 (N75 L9),hct 36, plt 458. Creat 1.1. LFTs wnl. Alb 2.7. INR 1.9. CRP 44.4 (55 on 02/19) ESR 65. 5/6 WBC 11 (N73 L11), hct 35, plt 866 (886 on 02/05). Creatinine 1.2. AST 34, ALT 27. ALK 86. INR 2.8. CRP 50 (nl <3), 59 on 02/05. ESR 83 (<20), 76 on 02/05. Micro Bcx, Ucx, Abd fluid + 01/24 e coli (s), e coccus (s). Blood cultures 01/26 and 01/[address] AP 02/08 hematoma down to 9x6 cm (from 13x7cm) Impression: Sylvain Rodgers is a 63 y.o. 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 (E coli, E coccus left pelvic 12 x 8 x 6 cm collection, down to 9x6 on 02/08 CT) and transient bacteremia. He has completed 5 weeks of IV antibiotics with PCN/cipro and still has a drain in place and is feeling well. His ESR/CRP are persistently elevated and on sinogram on 02/16 showed some persistent undrained fluid. He has a follow up sinogram scheduled for 03/02. Recommendation: Continue current antibiotics. PCN G 4 million units IV q4h Ciprofloxacin 500 mg po bid Will transition to 7 days of oral augmentin/cipro after collection has resolved if fistulous tract has closed. Continue weekly labs on Mondays. Sinogram as planned 03/02. Follow up in ID in 2 weeks time. Cely Baires MD Section of Infectious Disease and International Health [phone] minutes were spent in this face to face encounter, 20 minutes counseling about pelvic abscess mgmt. documented in this encounter Plan of Treatment Not on file documented as of this encounter Visit Diagnoses Diagnosis Abdominal abscess- Primary Peritoneal abscess documented in this encounter Care Teams Domestic Technician Relationship Specialty Start Date End Date Farnaz Pineda MD [address] [place] [address] PCP - General 10/26/12 documented as of this encounter
--- OUTSIDE RECORDS SUMMARY | 2024-04-20 15:07 | XMS_ITS | Encounter Summary ---
Author Organization [facility] [place] [address] Care Team Providers Care Insurance Agency Owner Name Role Phone Farnaz Pineda MD Primary Care Provider [phone] Reason for Visit * Reason Comments Follow-up Encounter Details Date Type Department Care Team (Late st Contact Info) Description 02/13/2013 11:00 AM EDT Office [place] [phone] Cely Whitman MD [facility] [place] [address] Infected hematoma following procedure (Primary Dx) Discharge Disposition: Home Social History [...] Sign Reading Time Taken Comments Blood Pressure 116/76 02/13/2013 10:58 AM EDT Pulse 88 02/13/2013 10:58 AM EDT Temperature 36.6 ??C (97.9 ??F) 02/13/2013 10:58 AM E DT Respiratory Rate 16 02/13/2013 10:58 AM EDT Oxygen Saturation - - Inhaled Oxygen Concentration - - Weight - - Height - - Body Mass Index - - documented in this encounter Progress Notes * Cely Whitman MD - 02/13/2013 11:14 AM EDT INFECTIOUS DISEASE OPAT CLINIC NOTE OPAT: Order / Recommendation for Post Discharge [...] ESR, high sensitivity CRP Responsible Attending: Cely Whitman MD Last documented weight (kg): 111.2 kg (245 lb 2.4 oz) Last documented height (cm): 172.7 cm (5' 8) Subjective: Feels very good, 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 No fevers, chills, ns, abdominal pain. Abdominal drain putting out 50 cc/day serosanguinous fluid. No diarrhea, no PICC problems. 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 Physical Exam Gen: NAD, nontoxic. A&Ox3. HEENT: PERRLA. No cervical LAD. Pulm: CTAB. Nl effort. Cardio: RRR, mechanical sound of S1, no murmurs, rubs or gallops GI: Abd S/ND/NT w/o rebound or guarding. No jaundice.Nl BS. Back: No CVA TTP. L drain in L flank with serosanguinous fluid. Neuro: No gross deficits noted Skin: No rashes. RUE PICC line OK. Labs 02/12 WBC 11 (N73 L11), hct 35, plt [...] down to 9x6 cm (from 13x7cm) Impression: ySlvain Rodgers is a 62 y.o. male with AVR on coumadin s/p robotic prostatectomy on November 20 complicated with a L pelvic hematoma and ongoing hematuria that got complicated with a superinfected pelvic hematoma with E coli, E coccus (left pelvic 12 x 8 x 6 cm collection, down to 9x6 on 02/08 CT) andtransient bacteremia. He has completed 3 weeks of IV antibiotics with PCN/cipro and still has a drain in place with significant drainage and is feeling well. His ESR/CRP/PLT are persistently elevatedand he will have sinogram on Friday 02/16. I expect he has some persistent fluid that is not completely drained. Recommendation: Continue current antibiotics, PCN G 4 million units IV q4h Ciprofloxacin 500 mg po bid Sinogram Tuesday, recommend repositioning of drain if needed into persistent fluid. Continue weekly labs on Mondays. Follow up in ID in 2 weeks time. Duration of therapy will be until markers are nearly normal and fluid is drained. Cely Whitman MD Section of Infectious Disease and International Health [phone] minutes were spent in this face to face encounter, 20 minutes counseling about pelvic infected hematoma mgmt. documented in this encounter Miscellaneous Notes * Addendum Note - Cely Whitman MD - 02/13/2013 1:54 PM EDTAddended by: CELY WHITMAN on: 02/13/2013 01:54 PM Modules accepted: Orders documented in this encounter Plan of Treatment Not on file documented as of this encounter Visit Diagnoses Diagnosis Infected hematoma following procedure- Primary Hematoma complicating a procedure documented in this encounter Care Teams Insurance Agency Owner Relationship Specialty Start Date End Date Farnaz Pineda MD [address] [place] [address] PCP - General 10/26/12 documented as of this encounter
--- OUTSIDE RECORDS SUMMARY | 2024-04-20 15:07 | XMS_ITS | Encounter Summary ---
Author Organization [facility] [place] [address] Care Team Providers Care Warehouse Selector Name Role Phone Farnaz Pineda MD Primary Care Provider [phone] Encounter Details Date Type Department Care Team (Latest Contact Info) Description 02/08/2013 11:05 AM EDT - 02/08/2013 11:59 PM EDT Hospital [place] [phone] CLINIC, Ermias Roberts MD [facility] [place] [address] S/P AVR (aortic valve replacement) Discharge Disposition: Home Social History Tobacco Use [...] Sig Dispensed Refills Start Date End Date acetaminophen (TYLENOL) 500 mg tablet Take 2 [...] tablet Take 50 mcg by mouth daily. BUDESONIDE/FORMOTEROL FUMARATE (SYMBICORT INHL) Inhale 1 puff into the lungs daily. 06/14/2013 ciprofloxacin (CIPRO) 500 mg tablet Take 1 tablet by mouth 2 times daily for 23 days. 46 tablet 0 01/29/2013 02/21/2013 HYDROmorphone (DILAUDID) 2 mg tablet Take 1-2 tablets by mouth every 4 hours as needed for Pain. 30 tablet 0 01/29/2013 06/14/2013 cyclobenzaprine (FLEXERIL) 5 mg tablet Take 1 tablet by mouth 3 times daily as needed for Muscle spasms. 30 tablet 0 01/22/2013 06/14/2013 hydroCODone-acetaminoph en (VICODIN) 5-500 mg per tablet Take 1-2 tablets by mouth every 4 hours as needed for Pain. 45 tablet 0 01/05/2013 06/14/2013 hydroCODone-acetaminoph en (VICODIN) 5-500 mg per tablet Take 1-2 tablets by mouth every 4 hours as needed for Pain. 40 tablet 0 12/26/2012 06/14/2013 ferrous gluconate 325 mg (37.5 mg iron) tablet Take 325 mg by mouth daily (with breakfast). 06/14/2013 fluticasone-salmeterol (ADVAIR) 100-50 mcg/dose diskus inhaler Inhale 1 puff into the lungs every 12 hours. 06/14/2013 aspirin 81 mg EC tablet Take 81 mg by mouth daily. 07/28/2018 documented as of this encounter Miscellaneous Notes * Miscellaneous - Provider, Scanning - 02/13/2013 9:53 AM EDT documented in this encounter Plan of Treatment Not on file documented as of this encounter Procedures Procedure Name Priority Date/Time Associated Diagnosis Comments CT ABDOMEN AND PELVIS W CONTRAST Routine 02/08/2013 2:59 PM EDT S/P AVR (aortic valve replacement) documented in this encounter Results * CT abdomen & pelvis with contrast (02/08/2013 2:59 PM EDT) Anatomical Region Laterality Modality Abdomen, Pelvis Computed Tomogra phy 02/08/2013 2:59 PM EDT Narrative 02/08/2013 3:[address] Abdomen / Pelvis With Contrast Clinical History S/P IR drainage Assess interval change in hematoma/pelvic abscess Comparison January 24, 2013. Technique Contrast-enhanced CT scan of the abdomen and pelvis following the administration of oral contrast and 110 cc Omnipaque 350 intravenous contrast. Findings Imaged portions of the lung bases are unremarkable. Abdomen: ??Simple hepatic cyst. ??Segment 6 hepatic hypodense lesion too small to further characterize. ??No suspicious liver lesions. ??Gallbladder, pancreas and spleen normal. ??Right and left adrenal glands normal. ??Severely atrophic and peripherally calcified cystic remnant of right kidney unchanged. ??Infrarenal IVC filter remains in satisfactory position. ??No suspicious left renal masses. ?? Small cortical hypodense left renal lesions unchanged. ??Fat filled ventral hernia. Pelvis: ??Loops of large and small bowel normal in caliber. ??Pigtail catheter has been pulled back and sits at the apex of the known left dominik pelvic hematoma. ??The side-hole marker band now sits supradjacent to the symphysis pubis. ??This should be advanced at least 2 cm. ??Interval organization of the betito hematoma inflammatory changes. ??Overall this hematoma has decreased from 13.1 x 7.1 cm to 9.1 x 6 cm. ?? Review of osseous structures shows no suspicious lesions. Impression Decreased size of left dominik pelvic hematoma. ??Pigtail catheter remains satisfactorily positioned within this though should be advanced by 2 cm. Stable shrunken cystic peripherally calcified right renal remnant. Procedure Note Ronna Rehman MD - 02/08/[address] Abdomen / Pelvis With Contrast Clinical History S/P IR drainage Assess interval change in hematoma/pelvic abscess Comparison January 24, 2013. Technique Contrast-enhanced CT scan of the abdomen and pelvis following the administration of oral contrast and 110 cc Omnipaque 350 intravenouscontrast. Findings Imaged portions of the lung bases are unremarkable. Abdomen: Simple hepatic cyst. Segment 6 hepatic hypodense lesion toosmall to further characterize. No suspicious liver lesions. Gallbladder, pancreasand spleen normal. Right and left adrenal glands normal. Severely atrophicand peripherally calcified cystic remnant of right kidney unchanged.Infrarenal IVC filter remains in satisfactory position. No suspicious left renalmasses. Small cortical hypodense left renal lesions unchanged. Fat filled ventral hernia. Pelvis: Loops of large and small bowel normal in caliber. Pigtailcatheter has been pulled back and sits at the apex of the known left dominik pelvic hematoma. The side-hole marker band now sits supradjacent to thesymphysis pubis. This should be advanced at least 2 cm. Interval organization ofthe betito hematoma inflammatory changes. Overall this hematoma has decreasedfrom 13.1 x 7.1 cm to 9.1 x 6 cm. Review of osseous structures shows no suspicious lesions. Impression Decreased size of left dominik pelvic hematoma. Pigtail catheter remains satisfactorily positioned within this though should be advanced by 2 cm. Stable shrunken cystic peripherally calcified right renal remnant. Blair Hope MD IMG CT ORDERABLES documented in this encounter Visit Diagnoses Diagnosis S/P AVR (aortic valve replacement) Heart valve replaced by other means documented in this encounter Administered Medications Inactive Administered Medications - up to 3 most recent administrations Medication Order MAR Action Action Date Dose Rate Site iohexol (OMNIPAQUE) 350 mg iodine/mL injection 17,500 mg 17,500 mg (50 mL), Oral, ONCE PRN, 1 dose, Starting on Emma 02/08/13 at 1449, Until Emma 02/08/13 at 1300, Per Protocol, Routine Given 02/08/2013 1:00 PM EDT 17,500 mg iohexol (OMNIPAQUE) 350 mg iodine/mL injection 38,500 mg 38,500 mg (110 mL), Intravenous, ONCE PRN, 1 dose, Starting on Emma 02/08/13 at 1449, Until Emma 02/08/13 at 1451, Per Protocol, Routine Given 02/08/2013 2:51 PM EDT 38,500 mg documented in this encounter Care Teams Warehouse Selector Relationship Specialty Start Date End Date Farnaz Pineda MD [address] [place] [address] PCP - General 10/26/12 documented as of this encounter
--- OUTSIDE RECORDS SUMMARY | 2024-04-20 15:07 | XMS_ITS | Encounter Summary ---
Author Organization [facility] [place] [address] Care Team Providers Care Tear Down Worker Name Role Phone Cameron Pineda MD Primary Care Provider [phone] Encounter Details Date Type Department Care Team (Latest Contact Info) Description 02/08/2013 9:06 AM EDT - 02/08/2013 11:59 PM EDT Hospital [place] [address] CLINIC, Jim Bowden MD [facility] [place] [address] S/P AVR (aortic valve replacement) (Primary Dx) Discharge Disposition: Home Social History [...] Sign Reading Time Taken Comments Blood Pressure 114/75 02/08/2013 9:00 AM EDT Pulse 88 02/08/2013 9:00 AM EDT Temperature 37.2 ??C (98.9 ??F) 02/08/2013 9:00 AM ED T Respiratory Rate 16 02/08/2013 9:00 AM EDT Oxygen Saturation 100% 02/08/2013 9:00 AM EDT Inhaled Oxygen Concentration - - Weight - - Height - - Body Mass Index - - documented in this encounter Medications at Time of Discharge [...] daily. 07/28/2018 documented as of this encounter Progress Notes * Clarence Mukherjee Mirna - 02/07/2013 8:45 AM EDT PRE-PROCEDURE VIR NOTE Date of : 1950 Age: 62 y.o. PCP: CAMERON PINEDA MD Referring Physician (if different): Elaina Bar Indication: drainage catheter placement in left pelvic abscess Planned Procedure: Sinogram Chief Complaint/Diagnosis: 62 yr old male patient, s/p robotic prostatectomy/LND with CT scan demonstrated left sided pelvic hematoma and pseudoaneurysm. He is s/p left superior gluteal artery branchpseudoaneurysm treated by left internal iliac artery embolization 01/24 and drainage catheter placement in left pelvic abscess 01/24 (Escherichia coli and Enterococcus). We will evaluate for residual cavity. No note seen on drain output as an outpatient. Pertinent Past Medical/Surgical History: No additional No Known Allergies Current Outpatient Prescriptions on File Prior to Encounter Medication Sig Dispense Refill ??? acetaminophen (TYLENOL) 500 mg tablet Take 2 tablets by mouth every 6 hours as needed for Pain.30 tablet 0 ??? HYDROmorphone (DILAUDID) 2 mg tablet Take 1-2 tablets by mouth every 4 hours as needed for Pain. 30 tablet 0 ??? ciprofloxacin (CIPRO) 500 mg tablet Take 1 tablet by mouth 2 times daily for 23 days. 46 tablet0 ??? cyclobenzaprine (FLEXERIL) 5 mg tablet Take 1 tablet by mouth 3 times daily as needed for Muscle spasms. 30 tablet 0 ??? hydroCODone-acetaminophen (VICODIN) 5-500 mg per tablet Take 1-2 tablets by mouth every 4 hoursas needed for Pain. 45 tablet 0 ??? hydroCODone-acetaminophen (VICODIN) 5-500 mg per tablet Take 1-2 tablets by mouth every 4 hoursas needed for Pain. 40 tablet 0 ??? ferrous gluconate 325 mg (37.5 mg iron) tablet Take 325 mg by mouth daily (with breakfast). ??? omeprazole (PRILOSEC) 20 mg capsule Take 20 mg by mouth daily. ??? warfarin (COUMADIN) 7.5 mg tablet Take 7.5 mg by mouth daily. ??? montelukast (SINGULAIR) 10 mg tablet Take 10 mg by mouth nightly. ??? fluticasone-salmeterol (ADVAIR) 100-50 mcg/dose diskus inhaler Inhale 1 puff into the lungs every 12 hours. ??? aspirin 81 mg EC tablet Take 81 mg by mouth daily. ??? levothyroxine (SYNTHROID) 50 mcg tablet Take 50 mcg by mouth daily. Pertinent ROS: as per HPI Pertinent Family History: non contributory Social History: n/a Labs: Lab Results Component Value Date WBC 11.4* 01/29/2013 ANC 8.66* 01/29/2013 HCT 26.4* 01/29/2013 PLATELET 341 01/29/2013 INR 1.7* 01/30/2013 BUN 14 01/29/2013 No results found for this basename: alkphos, ast, albumin, bilidir, bilitot, alt, Imagin01/24/13 drain placement Physical Exam: Pending ASA: Pending Mallampati Class: Pending Assessment / Plan: 62 yr old male patient, s/p robotic prostatectomy/LND with a left pelvic drain placed for an infected hematoma/abscess. A sinogram will be performed to evaluate for need for repositioning/removal. Medications to discontinue: NOne Prophylactic antibiotic: NOne Planned access site / position: Supine (drain is anterior) * Mayra Soares RN - 02/05/2013 10:11 AM EDT [facility] NURSING DATABASE Name: DILLAN AL Date of : 1950 AGE 62 y.o. Address: [address] [place] [id number] (home) [phone] (work) Mobile: Telephone Information: Referring Provider: Ermias Moya Reason for Visit: Sinogram, possible placement of new/or removal. 62 y/o male s/p embolization of left superior gluteal psedoaneurysm with drain placement 01/24 No Known Allergies Pertinent PMH: Patient Active Problem List Diagnoses Code ??? S/P prostatectomy V45.89 ??? Prostate cancer 185 ??? Postoperative hemorrhage 998.11 ??? S/P AVR (aortic valve replacement) V43.3 No past medical history on file. Pertinent PSH: Past Surgical History Procedure Date ??? Lap, prostatectomy, radical, w/nerve spare 11/20/2012 @LAPAROSCOPIC PROSTATECTOMY, ROBOTICS ASSISTED performed by Ross Madrid MD at [facility] MA[facility] OR ??? Lap, pelvic lymphadenectomy 11/20/2012 LAPAROSCOPY,WITH BILATERAL TOTAL PELVIC LYMPHADENECTOMY, ROBOTIC performed by Ross Madrid MD at [facility] MA[facility] OR ? ? Cystourethroscopy w/irrig & evac clots 12/27/2012 CYSTO, IRRIGATION & EVACUATION OF CLOTS performed by Ross Madrid MD at [facility] MA[facility] OR ??? Ct retroperitoneal abscess drain 01/24/2013 Date/Procedure Comments: 01/24/13 No data in CIS 01-04-13 IVC filter Versed 2.5 mg iv, fentanyl 125 mcg iv, ancef 1 gram iv 01/24/2013 Pelvic embolization and then CT guided pelvic drain placement Fentanyl 125 mcg/iv duglas gttstarted (patient changed to ICU status mid-case), 2 UNITS ffp, 2 UNITS rbcS, fluid bolus then Levo started by ELECTRICAL APPRENTICE 02/08/13 Sinogram No meds Laboratory Results: Lab Results Component Value Date INR 1.7* 01/30/2013 Lab Results Component Value Date PT 20.8* 01/30/2013 PTT 40* 01/30/2013 Lab Results Component Value Date BUN 14 01/29/2013 Lab Results Component Value Date CREATININE 1.08 01/29/2013 Lab Results Component Value Date K 3.7 01/29/2013 Lab Results Component Value Date PLATELET 341 01/29/2013 Medications: Prior to Admission medications Medication Sig Start Date End Date Taking? Authorizing Provider acetaminophen (TYLENOL) 500 mg tablet Take 2 tablets by mouth every 6 hours as needed for Pain. 01/29/13 Angeles Leong MD HYDROmorphone (DILAUDID) 2 mg tablet Take 1-2 tablets by mouth every 4 hours as needed for Pain. 01/29/13 Angeles Leong MD ciprofloxacin (CIPRO) 500 mg tablet Take 1 tablet by mouth 2 times daily for 23 days. 01/29/13 02/21/13 Angeles Leong MD cyclobenzaprine (FLEXERIL) 5 mg tablet Take 1 tablet by mouth 3 times daily as needed for Muscle spasms. 01/22/13 Eddie Proctor MD hydroCODone-acetaminophen (VICODIN) 5-500 mg per tablet Take 1-2 tablets by mouth every 4 hours as needed for Pain. 01/05/13 Fabian Ribeiro MD hydroCODone-acetaminophen (VICODIN) 5-500 mg per tablet Take 1-2 tablets by mouth every 4 hours as needed for Pain. 12/26/12 Fabian Ribeiro MD ferrous gluconate 325 mg (37.5 mg iron) tablet Take 325 mg by mouth daily (with breakfast). Ranjan Reddy MD omeprazole (PRILOSEC) 20 mg capsule Take 20 mg by mouth daily. Ranjan Reddy MD warfarin (COUMADIN) 7.5 mg tablet Take 7.5 mg by mouth daily. Ranjan Reddy MD montelukast (SINGULAIR) 10 mg tablet Take 10 mg by mouth nightly. Ranjan Reddy MD fluticasone-salmeterol (ADVAIR) 100-50 mcg/dose diskus inhaler Inhale 1 puff into the lungs every 12 hours. Ranjan Reddy MD aspirin 81 mg EC tablet Take 81 mg by mouth daily. Ranjan Reddy MD levothyroxine (SYNTHROID) 50 mcg tablet Take 50 mcg by mouth daily. Ranjan Reddy MD For outpatient procedures: This patient has been informed that they require a boom truck driver to drive them home after this procedure. In the absence of a boom truck driver, IR will not be able to perform this procedureand will need to reschedule. Pt verbalized understanding of these instructions during the pre-procedure education via phone. documented in this encounter Procedure Notes * Jim Martell MD - 02/08/2013 10:42 AM EDTProcedure(s): IR ALL DRAINAGE PROCEDURES IR Procedure Note A [id number] Procedure: LLQ abscess drain injection History/indication: 62 yr old male patient, s/p robotic prostatectomy/LND with CT scan demonstratedleft sided pelvic hematoma and pseudoaneurysm. He is s/p left superior gluteal artery branch pseudoaneurysm treated by left internal iliac artery embolization 01/24 and drainage catheter placement in left pelvic abscess 01/24 (Escherichia coli and Enterococcus). Technique: The patient was positioned prone. Initial fluoroscopy shows a LLQ drain in the expected location. Contrast injection filled a small residual cavity, somewhat larger than the locking loop. There is tracking of contrast medially, which then enters the bladder and outlines the womack retention balloon. The drain was flushed and reconnected to bag drainage. Complications: None immediate; EBL=0 Medications: none Contrast: 5 cc non-ionic/omnipaque Fluoroscopy time: 0.5 minutes Findings: 1. LLQ drain in the expected location. 2. Small residual cavity, somewhat larger than the locking loop. 3. Communication of the cavity with the bladder. Comment: The findings were discussed with Dr. Madrid; will plan on drain check in approximately one week. Attending: Delvin Martell MD documented in this encounter Miscellaneous Notes * Miscellaneous - Provider, Scanning - 02/14/2013 8:01 AM EDT documented in this encounter Plan of Treatment Not on file documented as of this encounter Procedures Procedure Name Priority Date/Time Associated Diagnosis Comments IR ALL DRAINAGE PROCEDURES Routine 02/08/2013 10:49 AM EDT documented in this encounter Results * IR all drainage procedures (02/08/2013 10:49 AM EDT) Anatomical Region Laterality Modality X-Ray Angiograph y 02/08/2013 10:4 9 AM EDT Narrative 02/12/2013 8:33 AM EDT IR Procedure Note ?? Accession Number: ?? [id number] ?? Procedure: LLQ abscess drain injection ?? History/Indication: 62 yr old male patient, s/p robotic prostatectomy/LND with CT scan demonstrated left-sided pelvic hematoma and pseudoaneurysm. He is s/p left superior gluteal artery branch pseudoaneurysm treated by left internal iliac artery embolization 01/24 and drainage catheter placement in left pelvic abscess 01/24 (Escherichia coli and Enterococcus). ?? Technique: The patient was positioned prone. Initial fluoroscopy shows a LLQ drain in the expected location. Contrast injection filled a small residual cavity, somewhat larger than the locking loop. There is tracking of contrast medially, which then enters the bladder and outlines the Womack retention balloon. The drain was flushed and reconnected to bag drainage. ?? Complications: None immediate; EBL=0 ?? Medications: None ?? Contrast: 5 cc non-ionic/Omnipaque ?? Fluoroscopy Time: 0.5 minutes ?? Findings: ?? 1. LLQ drain in the expected location. ?? 2. Small residual cavity, somewhat larger than the locking loop. ?? 3. Communication of the cavity with the bladder. ?? Comment: The findings were discussed with Dr. Madrid; will plan on drain check in approximately one week. ?? Attending: Delvin Martell MD ?? Procedure Note Jim Martell MD - 02/12/2013 IR Procedure Note Accession Number: [id number] Procedure: LLQ abscess drain injection History/Indication: 62 yr old male patient, s/p robotic prostatectomy/LNDwith CT scan demonstrated left-sided pelvic hematoma and pseudoaneurysm. He iss/p left superior gluteal artery branch pseudoaneurysm treated by leftinternal iliac artery embolization 01/24 and drainage catheter placement in leftpelvic abscess 01/24 (Escherichia coli and Enterococcus). Technique: The patient was positioned prone. Initial fluoroscopy shows aLLQ drain in the expected location. Contrast injection filled a small residual cavity, somewhat larger than the locking loop. There is tracking ofcontrast medially, which then enters the bladder and outlines the Womack retention balloon. The drain was flushed and reconnected to bag drainage. Complications: None immediate; EBL=0 Medications: None Contrast: 5 cc non-ionic/Omnipaque Fluoroscopy Time: 0.5 minutes Findings: 1. LLQ drain in the expected location. 2. Small residual cavity, somewhat larger than the locking loop. 3. Communication of the cavity with the bladder. Comment: The findings were discussed with Dr. Madrid; will plan on draincheck in approximately one week. Attending: Delvin Martell MD Ermias Moya MD IMG IR ORDERABLES * (ABNORMAL) APTT (02/08/2013 9:00 AM EDT) PTT 60(H) 25 - 35 sec CERNER MILLENNIUM Comment: Recommended therapeutic PTT range for full dose unfractionated heparin is 80-114 seconds. Blood specimen (specimen) 02/08/2013 9:00 AM EDT 02/08/2013 9:03 AM EDT Narrative Resulting Agency Comment Spec In Lab Jim Martell MD HEMATOLOGY ORDERABLE S Performing Organization Address [facility] Co de Phone Number Sport [id number] [employer]rec[employer] EngineIUM * (ABNORMAL) Prothrombin Time (02/08/2013 9:00 AM EDT) PT 25.6(H) 12.0 - 15.0 sec CERNER MILLENNIUM Comment: [facility] Transfusion Committee Guidelines: INR less than 2.0, PTT less than OR equal to 43.5 seconds, or Fibrinogen greater than or equal to 100 mg/dl indicate adequate procoagulant activity for hemostasis in patients without underlying bleeding disorders. INR 2.2(H) 0.9 - 1.1 CERNER MILLENNIUM Blood specimen (specimen) 02/08/2013 9:00 AM EDT 02/08/2013 9:03 AM EDT Narrative Resulting Agency Comment Spec In Lab Jim Martell MD HEMATOLOGY ORDERABLE S Performing Organization Address [facility] Co de Phone Number DANETTE VALENCIA documented in this encounter Visit Diagnoses Diagnosis S/P AVR (aortic valve replacement)- Primary Heart valve replaced by other means documented in this encounter Administered Medications Inactive Administered Medications - up to 3 most recent administrations Medication Order MAR Action Action Date Dose Rate Site iohexol (OMNIPAQUE) 350 mg iodine/mL injection 17,500 mg 17,500 mg (50 mL), Other, ONCE PRN, 1 dose, Starting on Emma 02/08/13 at 1048, Until Emma 5 at 1049, Per Protocol, Angio/IR (Intra-Procedure), Routine Given 02/08/2013 10:49 AM EDT 5 mLs documented in this encounter Care Teams Tear Down Worker Relationship Specialty Start Date End Date Cameron Pineda MD [address] [place] [address] PCP - General 10/26/12 documented as of this encounter
--- OUTSIDE RECORDS SUMMARY | 2024-04-20 15:07 | XMS_ITS | Encounter Summary ---
Author Organization [facility] [place] [address] Care Team Providers Care Video Game Technician Name Role Phone Farnaz Pineda MD Primary Care Provider [phone] Reason for Visit * Reason Comments Follow-up Encounter Details Date Type Department Care Team (Late st Contact Info) Description 03/02/2013 1:00 PM EDT [place] [address] CLINIC, Ross De León MD [facility] [place] [address] Abscess (Primary Dx) Discharge Disposition: Home Social History [...] Progress Notes * Ross Madrid MD - 03/02/2013 1:46 PM EDT Sinogram today shows no fistula with bladder; small cavity only. In clinic, his pelvic drain was pulled without incident and a dressing was applied. Then, his PICC line was pulled and a betadine dipped gauze applied to the arm and secured with a Tegaderm. The PICC line was intact in length per placement note. Plan: - 1 week cipro and augmentin (ordered) per recent ID plan - RTC next Tuesday for womack removal documented in this encounter Plan of Treatment Not on file documented as of this encounter Visit Diagnoses Diagnosis Abscess- Primary Cellulitis and abscess of unspecified site documented in this encounter Care Teams Video Game Technician Relationship Specialty Start Date End Date Farnaz Pineda MD [address] [place] [address] PCP - General 10/26/12 documented as of this encounter
--- OUTSIDE RECORDS SUMMARY | 2024-04-20 15:07 | XMS_ITS | Encounter Summary ---
Author Organization Formerly [facility] [place] [address] Care Team Providers Care Field Mechanic Name Role Phone Cameron Pineda MD Primary Care Provider [phone] Encounter Details Date Type Department Care Team (Late st Contact Info) Description 03/02/2013 9:08 AM EDT - 03/02/2013 11:59 PM EDT Hospital [place] [address] Abscess Social History Tobacco Use Types Packs/Day Years [...] Sign Reading Time Taken Comments Blood Pressure 120/77 03/02/2013 9:00 AM EDT Pulse 90 03/02/2013 9:00 AM EDT Temperature 36.9 ??C (98.5 ??F) 03/02/2013 9:00 AM ED T Respiratory Rate 16 03/02/2013 9:00 AM EDT Oxygen Saturation 100% 03/02/2013 9:00 AM EDT Inhaled Oxygen Concentration - [...] tablet Take 50 mcg by mouth daily. amoxicillin-clavulanate (AUGMENTIN) 875-125 mg per tabletIndications:Absce ss Take 1 tablet by mouth 2 times daily. 14 tablet 0 03/02/2013 12/13/2013 ciprofloxacin (CIPRO) 500 mg tablet Take 1 tablet by mouth 2 times daily for 14 days. 28 tablet 1 02/27/2013 03/13/2013 penicillin g potassium 4 million units/100 mL PREMIX Inject 100 mLs into the vein every 4 hours for 30 days. 12020 mL 0 02/13/2013 03/15/2013 BUDESONIDE/FORMOTEROL FUMARATE (SYMBICORT INHL) Inhale 1 puff into the lungs daily. 06/14/2013 HYDROmorphone (DILAUDID) 2 mg tablet Take 1-2 [...] as of this encounter Progress Notes * Jasen Sethi RN - 03/01/2013 1:32 PM EDT [facility] NURSING DATABASE Name: DILLAN AL Date of : 1950 AGE 63 y.o. Address: [address] [place] [id number] (home) [phone] (work) Mobile: Telephone Information: Referring Provider: Ross Madrid Reason for Visit: Drain study: Sinogram: S/p pelvic drain placement (Assessment/plan from provider's note, bottom of page) Copy/paste from provider's note No Known Allergies Pertinent PMH: Patient Active Problem List Diagnoses Code ??? S/P prostatectomy V45.89 ??? Prostate cancer 185 ??? Postoperative hemorrhage 998.11 ??? S/P AVR (aortic valve replacement) V43.3 ??? Infected hematoma following procedure 998.12 Pertinent PSH: Past Surgical History Procedure Date ??? Lap, prostatectomy, radical, w/nerve spare 11/20/2012 @LAPAROSCOPIC PROSTATECTOMY, ROBOTICS ASSISTED performed by Ross Madrdi MD at [facility] MAIN OR ??? Lap, pelvic lymphadenectomy 11/20/2012 LAPAROSCOPY,WITH BILATERAL TOTAL PELVIC LYMPHADENECTOMY, ROBOTIC performed by Ross Madrid MD at [facility] MAIN OR ? ? Cystourethroscopy w/irrig & evac clots 12/27/2012 CYSTO, IRRIGATION & EVACUATION OF CLOTS performed by Ross Madrid MD at [facility] MAIN OR ??? Ct retroperitoneal abscess drain 01/24/2013 Date/Procedure Comments: 01-04-13 IVC filter Versed 2.5 mg iv, fentanyl 125 mcg iv, ancef 1 gram iv 01/24/2013 Pelvic embolization and then CT guided pelvic drain placement Fentanyl 125 mcg/iv duglas gttstarted (patient changed to ICU status mid-case), 2 UNITS ffp, 2 UNITS rbcS, fluid bolus then Levo started by INTEGRATED PEST MANAGEMENT TECHNICIAN 02/08/13 Sinogram No meds 5/10/13 sinogram No meds 03/01/2013 sinogram No meds Laboratory Results: Lab Results Component Value Date INR 2.2* 02/08/2013 Lab Results Component Value Date PT 25.6* 02/08/2013 PTT 60* 02/08/2013 Lab Results Component Value Date BUN 14 01/29/2013 Lab Results Component Value Date CREATININE 1.08 01/29/2013 Lab Results Component Value Date K 3.7 01/29/2013 Lab Results Component Value Date PLATELET 341 01/29/2013 Medications: Prior to Admission medications Medication Sig Start Date End Date Taking? Authorizing Provider ciprofloxacin (CIPRO) 500 mg tablet Take 1 tablet by mouth 2 times daily for 14 days. 02/27/13 03/13/13 Cely Baires MD penicillin g potassium 4 million units/100 mL PREMIX Inject 100 mLs into the vein every 4 hours for30 days. 02/13/13 03/15/13 Cely Baires MD BUDESONIDE/FORMOTEROL FUMARATE (SYMBICORT INHL) Inhale 1 puff into the lungs daily. ProviderRanjan MD acetaminophen (TYLENOL) 500 mg tablet Take 2 tablets by mouth every 6 hours as needed for Pain. 01/29/13 Angeles Leong MD HYDROmorphone (DILAUDID) 2 mg tablet Take 1-2 tablets by mouth every 4 hours as needed for Pain. 01/29/13 Angeles Leong MD cyclobenzaprine (FLEXERIL) 5 mg [...] 325 mg by mouth daily (with breakfast). ProviderRanjan MD omeprazole (PRILOSEC) 20 mg capsule Take 20 mg by mouth daily. Provider Historical, MD warfarin (COUMADIN) 7.5 mg tablet Take [...] mcg by mouth daily. Ranjan Reddy MD MED'S TO STOP DAY OF PROCEDURE: MED'S TO STOP DAYS OUT: PT. INFORMED: (Y/N) LABS ORDERED: (place an X in front of lab) NONE PLT CBC PT/INR BUN CREAT K OTHER LABS ORDERED IN EDH: For outpatient procedures: This patient has been informed that they require a farm truck driver to drive them home after this procedure. In the absence of a farm truck driver, IR will not be able to perform this procedureand will need to reschedule. Pt verbalized understanding of these instructions during the pre-procedure education via phone. * Julius Servin MD - 03/01/2013 8:35 AM EDT Images from the original note were not included. PRE-PROCEDURE VIR NOTE Date of : 1950 Age: 63 y.o. PCP: CAMERON PINEDA MD Referring Physician (if different): [facility] Indication: drain study; patient known to Dr. Martell; h/o abscess Planned Procedure: Sinogram Chief Complaint/Diagnosis: Dillan Al is a 62 y.o. male with AVR on coumadin s/p robotic prostatectomy on November 20 complicated with a L pelvic hematoma and ongoing hematuria that got complicated with a superinfected pelvic hematoma with E coli, E coccus (left pelvic 12 x 8 x 6 cm collection,down to 9x6 on 02/08 CT) and transient bacteremia. 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 Last sinogram 02/16/13: Pertinent Past Medical/Surgical History: No past medical history on file. Past Surgical History Procedure Date ??? Lap, prostatectomy, radical, w/nerve spare 11/20/2012 @LAPAROSCOPIC PROSTATECTOMY, ROBOTICS ASSISTED performed by Ross Madrid MD at [facility] MAIN OR ??? Lap, pelvic lymphadenectomy 11/20/2012 LAPAROSCOPY,WITH BILATERAL TOTAL PELVIC LYMPHADENECTOMY, ROBOTIC performed by Ross Madrid MD at [facility] MAIN OR ? ? Cystourethroscopy w/irrig & evac clots 12/27/2012 CYSTO, IRRIGATION & EVACUATION OF CLOTS performed by Ross Madrid MD at [facility] MAIN OR ??? Ct retroperitoneal abscess drain 01/24/2013 No Known Allergies Current Outpatient Prescriptions on File Prior to Encounter Medication Sig Dispense Refill ??? ciprofloxacin (CIPRO) 500 mg tablet Take 1 tablet by mouth 2 times daily for 14 days. 28 tablet1 ??? penicillin g potassium 4 million units/100 mL PREMIX Inject 100 mLs into the vein every 4 hoursfor 30 days. 41110 mL 0 ??? BUDESONIDE/FORMOTEROL FUMARATE (SYMBICORT INHL) Inhale 1 puff into the lungs daily. ??? acetaminophen (TYLENOL) 500 mg tablet Take 2 tablets by mouth every 6 hours as needed for Pain.30 tablet 0 ??? HYDROmorphone (DILAUDID) 2 mg tablet Take 1-2 tablets by mouth every 4 hours as needed for Pain. 30 tablet 0 ??? cyclobenzaprine (FLEXERIL) 5 mg tablet Take [...] HCT 26.4* 01/29/2013 PLATELET 341 01/29/2013 INR 2.2* 02/08/2013 BUN 14 01/29/2013 No results found for this basename: alkphos, ast, albumin, bilidir, bilitot, alt, Assessment / Plan: Sinogram Medications to discontinue: None Prophylactic antibiotic: None Planned access site / position: Supine documented in this encounter Procedure Notes * Jim Martell MD - 03/02/2013 10:17 AM EDTProcedure(s): IR ALL DRAINAGE PROCEDURES IR Procedure Note A [id number] Procedure: LLQ pelvic drain injection History/indication: 62 yr old male patient, s/p robotic prostatectomy/LND with CT scan demonstratedleft-sided pelvic hematoma and pseudoaneurysm. He is s/p left superior gluteal artery branch pseudoaneurysm treated by left internal iliac artery embolization 01/24 and drainage catheter placement in left pelvic abscess 01/24 (Escherichia coli and Enterococcus). Technique: The patient was positioned supine. Initial fluoroscopy shows a LLQ drain in the expectedlocation. Contrast injection filled a small residual cavity unchanged from previous sinogram. Unlike on the prior two studies, there is no tracking of contrast medially; there is no opacification of the bladder. The drain was flushed and reconnected to bag drainage. The patient has an appointment with Dr. Madrid at 1300 hrs today to decide whether the drain will be pulled or re-evaluated in 2 weeks. Complications: None immediate; EBL=0 Medications: none Contrast: 3 cc non-ionic/omnipaque Fluoroscopy time: 0.1 minutes Findings: No communication with the bladder identified on today's drain study. Attending: Delvin Martell MD documented in this encounter Miscellaneous Notes * Miscellaneous - Provider, Scanning - 03/12/2013 5:22 AM EDT documented in this encounter Plan of Treatment Not on file documented as of this encounter Procedures Procedure Name Priority Date/Time Associated Diagnosis Comments IR ALL DRAINAGE PROCEDURES Routine 03/02/2013 10:04 AM EDT Abscess documented in this encounter Results * IR all drainage procedures (03/02/2013 10:04 AM EDT) Anatomical Region Laterality Modality X-Ray Angiograph y 03/02/2013 10:0 4 AM EDT Narrative 03/03/2013 1:53 PM EDT IR Procedure Note ?? A [id number] ?? Procedure: LLQ pelvic drain injection ?? History/indication: 62 yr old male patient, s/p robotic prostatectomy/LND with CT scan demonstrated left-sided pelvic hematoma and pseudoaneurysm. He is s/p left superior gluteal artery branch pseudoaneurysm treated by left internal iliac artery embolization 01/24 and drainage catheter placement in left pelvic abscess 01/24 (Escherichia coli and Enterococcus). ?? Technique: The patient was positioned supine. Initial fluoroscopy shows a LLQ drain in the expected location. Contrast injection filled a small residual cavity unchanged from previous sinogram. Unlike on the prior two studies, there is no tracking of contrast medially; there is no opacification of the bladder. ?? The drain was flushed and reconnected to bag drainage. The patient has an appointment with Dr. Madrid at 1300 hrs today to decide whether the drain will be pulled or re-evaluated in 2 weeks. ?? Complications: None immediate; EBL=0 ?? Medications: None ?? Contrast: 3 cc non-ionic/omnipaque ?? Fluoroscopy time: 0.1 minutes ?? Findings: No communication with the bladder identified on today's drain study. ?? Attending: Delvin Martell MD Procedure Note Jim Martell MD - 03/03/2013 IR Procedure Note A [id number] Procedure: LLQ pelvic drain injection History/indication: 62 yr old male patient, s/p robotic prostatectomy/LNDwith CT scan demonstrated left-sided pelvic hematoma and pseudoaneurysm. He iss/p left superior gluteal artery branch pseudoaneurysm treated by leftinternal iliac artery embolization 01/24 and drainage catheter placement in leftpelvic abscess 01/24 (Escherichia coli and Enterococcus). Technique: The patient was positioned supine. Initial fluoroscopy shows aLLQ drain in the expected location. Contrast injection filled a small residual cavity unchanged from previous sinogram. Unlike on the prior two studies,there is no tracking of contrast medially; there is no opacification of thebladder. The drain was flushed and reconnected to bag drainage. The patient has an appointment with Dr. Madrid at 1300 hrs today to decide whether the drainwill be pulled or re-evaluated in 2 weeks. Complications: None immediate; EBL=0 Medications: None Contrast: 3 cc non-ionic/omnipaque Fluoroscopy time: 0.1 minutes Findings: No communication with the bladder identified on today's drainstudy. Attending: Delvin Martell MD Ross Madrid MD IMG IR ORDERABLES documented in this encounter Visit Diagnoses Diagnosis Abscess Cellulitis and abscess of unspecified site documented in this encounter Administered Medications Inactive Administered Medications - up to 3 most recent administrations Medication Order MAR Action Action Date Dose Rate Site iohexol (OMNIPAQUE) 350 mg iodine/mL injection 17,500 mg 17,500 mg (50 mL), Other, ONCE PRN, 1 dose, Starting on Tue03/02/13 at 1006, Until Tue03/02/13 at 0949, Per Protocol, Routine Given 03/02/2013 9:49 AM EDT 3 mLs documented in this encounter Care Teams Field Mechanic Relationship Specialty Start Date End Date Cameron Pineda MD [address] [place] [address] PCP - General 10/26/12 documented as of this encounter
--- OUTSIDE RECORDS SUMMARY | 2024-04-20 15:07 | XMS_ITS | Encounter Summary ---
Author Organization [facility] [address] Care Team Providers Care Manager Zone Name Role Phone Farnaz Pineda MD Primary Care Provider [phone] Encounter Details Date Type Department Care Team (Late st Contact Info) Description 01/30/2013 [place] [address] [facility] [place] [address] Hematoma - postoperative (Primary Dx) Social History Tobacco Use Types [...] as of this encounter Progress Notes * Nina Aguirre, - 02/03/2013 10:21 AM EDT Called by resident individual pension adviser, and was asked to call back Mrs. Rodgers, of [place], who recently had a pelvic drain placed for a pelvic hematoma s/p robotic prostatectomy. Contacted Mrs. Rodgers who informed me that the drain was currently not flus able, and when she attempted to flush, she noticed leaking at the sides of the drain. She also describes hearing a whistlingsound when she attempts to aspirate the syringe. She expresses concern that the drain is malfunctioned. Several follow up questions indicate that Mr. Rodgers is asymptomatic, and that the he has been draining approximately 20-30 mls daily. He denies fever, chills, or pain at the site of drain placement. I contacted reyes Patel agreed that this was non- emergent, and the patient could come in Tuesday morning to IR for further evaluation of the drain. The patient and his were agreeable, and she told me she would call IR 7 am on nday as suggested to set up a time to come in. I conveyed to her that she should call should she have any further concerns or questions. documented in this encounter Plan of Treatment Not on file documented as of this encounter Visit Diagnoses Diagnosis Hematoma - postoperative- Primary Hematoma complicating a procedure documented in this encounter Care Teams Manager Zone Relationship Specialty Start Date End Date Farnaz Pineda MD [address] [place] [address] PCP - General 10/26/12 documented as of this encounter
--- OUTSIDE RECORDS SUMMARY | 2024-04-20 15:07 | XMS_ITS | Encounter Summary ---
Author Organization Formerly [facility] [place] [address] Care Team Providers Care Human Factors Ergonomist Name Role Phone Farnaz Pineda MD Primary Care Provider [phone] Encounter Details Date Type Department Care Team (Late st Contact Info) Description 02/08/2013 3:40 PM EDT [place] [id number] Ross Madrid MD [facility] [place] [address] Hematuria (Primary Dx) Discharge Disposition: Home Social History [...] Sign Reading Time Taken Comments Blood Pressure 132/74 02/08/2013 3:27 PM EDT Pulse 91 02/08/2013 3:27 PM EDT Temperature - - Respiratory Rate 18 02/08/2013 3:27 PM EDT Oxygen Saturation - - Inhaled Oxygen Concentration - - Weight 98.9 kg (218 lb) 02/08/2013 3:27 PM EDT Height 174 cm (5' 8.5) 02/08/2013 3:27 PM EDT Body Mass Index 32.66 02/08/2013 3:27 PM EDT documented in this encounter Progress Notes * Ross Madrid MD - 02/08/2013 3:54 PM EDT Mr. Rodgers follows up today with a complex history. He is s/p RALRP/PLND for high risk prostate cancer in 11/22. He developed recurrent gross hematuria and was found to have a pseudoaneurysm of a branch of his internal iliac artery that was embolized ~2 weeks ago with success. He also developed anadjacent pelvic abscess that was percutaneously drained. He in on coumadin for a metal AVR. He developed a DVT postoperatively as well in the left lower extremity as another indication for anticoagulation. He was discharged on IV penicillin and po cipro with ID consultation for an extended course, as he had bacteremia during his recent hospitalization during which the above procedures were performed. Today he feels well. His womack has drained clear urine. His abscess drain has minimal output 10-15cc per day, clear reddish drainage for the last several days. He has been irrigating this drain 2x per day per instructions. He denies abdominal pain, fever or chills. He has some right hip pain with positioning that he believes is musculoskeletal. He had a sinogram today showing a collapsed abscess cavity, however a thin connection with the bladder with filling around the womack balloon. 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; however, on questioning he is irrigating twice per day through the drain for patency, and notes change in character of urinary drainage at that time; this implies that he may be keeping the fistula open withpressurized irrigation; I requested that he stop irrigating to allow the connection to close, and the space around the drain should further collapse; he will continue on antibiotic therapy thru 02/21 - We will have him return in ~1 week for repeat sinogram and likely drain removal; he will alert mein the meantime if he develops any concerning signs or symptoms 11 of 12 minutes spent in counseling and coordination of care documented in this encounter Plan of Treatment Not on file documented as of this encounter Results * IR all procedures (02/16/2013 10:18 AM EDT) Anatomical Region Laterality Modality Abdomen X-Ray Angiograph y 02/16/2013 10:1 8 AM EDT Narrative 02/16/2013 6:01 PM EDT IR Procedure Note ?? Accession Number: [id number] ?? Procedure: LLQ abscess drain injection ?? [...] small residual cavity unchanged from previous sinogram. There continues to be tracking of contrast medially, which then enters the bladder and outlines the Womack retention balloon. The drain was flushed and reconnected to bag drainage. ?? Complications: None immediate ?? EBL=0 ?? Medications: None ?? Contrast: 5 cc non-ionic/Omnipaque ?? Fluoroscopy Time: 0.2 minutes ?? Findings: ?? 1. LLQ drain in the expected location. ?? 2. Small residual cavity. ?? 3. Persistent communication of the cavity with the bladder. ?? Images discussed with Dr. Martell, will plan on repeat sinogram in 2 weeks. ?? Procedure performed by Ronna Cabrera PA-C ?? Attending: Delvin Martell MD ?? Procedure Note Jim Martell MD - 02/16/2013 IR Procedure Note Accession Number: [id number] Procedure: LLQ abscess drain injection History/Indication: 62 [...] small residual cavity unchanged from previous sinogram. There continues to be tracking of contrast medially, which then enters the bladder and outlines the Womack retention balloon. The drain was flushed and reconnected to bag drainage. Complications: None immediate EBL=0 Medications: None Contrast: 5 cc non-ionic/Omnipaque Fluoroscopy Time: 0.2 minutes Findings: 1. LLQ drain in the expected location. 2. Small residual cavity. 3. Persistent communication of the cavity with the bladder. Images discussed with Dr. Martell, will plan on repeat sinogram in 2weeks. Procedure performed by Ronna Cabrera PA-C Attending: Delvin Martell MD Ross Madrid MD IMG IR ORDERABLES documented in this encounter Visit Diagnoses Diagnosis Hematuria- Primary Hematuria, unspecified Hematuria Hematuria, unspecified documented in this encounter Care Teams Human Factors Ergonomist Relationship Specialty Start Date End Date Farnaz Pineda MD [address] [place] [address] PCP - General 10/26/12 documented as of this encounter
--- OUTSIDE RECORDS SUMMARY | 2024-04-20 15:07 | XMS_ITS | Encounter Summary ---
Author Organization [facility] [address] Care Team Providers Care Long Term Care Administrator Name Role Phone Cameron Pineda MD Primary Care Provider [phone] Encounter Details Date Type Department Care Team (Late st Contact Info) Description 02/16/2013 8:09 AM EDT - 02/16/2013 11:58 PM EDT Hospital [place] [address] Hematuria Social History Tobacco Use Types Packs/Day Years [...] Sign Reading Time Taken Comments Blood Pressure 135/75 02/16/2013 8:30 AM EDT Pulse 55 02/16/2013 8:30 AM EDT Temperature 36.3 ??C (97.4 ??F) 02/16/2013 8:30 AM ED T Respiratory Rate 20 02/16/2013 8:30 AM EDT Oxygen Saturation 97% 02/16/2013 8:30 AM EDT Inhaled Oxygen Concentration - - Weight - - Height - - Body Mass Index - - documented in this encounter Discharge Instructions * Discharge Instructions* Mary Uriostegui RN - 02/16/2013 10:37 AM EDT [facility] Vascular and Interventional Radiology Signs And Symptoms Of Infections This information is designed to inform you of the signs and symptoms of an infection. Wound infection may occur at any time, but it is evident more often 4-7 days after your procedure. Signs and symptoms may involve one or more the following: Temperature equal to or greater than 101 degrees Fahrenheit. Swelling and redness in or around the wound. Red streaks on your skin near the wound. Foul smelling drainage or pus from the wound. Shaking chills. If you suspect an infection related to your procedure please contact your healthcare provider. When to call the Interventional Radiology Department: Please call with any questions or concerns. If it is during regular office hours, please call [phone]. If it is after regular office hours, or on weekends or holidays, please call [phone] and ask to speak to the [employer] cash applications manager for Interventional Radiology. Revised 07/14/12 documented in this encounter Medications at Time [...] tablet Take 50 mcg by mouth daily. penicillin g potassium 4 million units/100 mL PREMIX Inject 100 mLs into the vein every 4 hours for 30 days. 74485 mL 0 02/13/2013 03/15/2013 BUDESONIDE/FORMOTEROL FUMARATE (SYMBICORT [...] as of this encounter Progress Notes * Amie Carranza RN - 02/16/2013 9:46 AM EDT [facility] Name: DILLAN AL Date of : 1950 AGE 62 y.o. [address]: [address] [place] [address] (home) [phone] (work) Mobile: Telephone Information: Referring Provider: Ross Madrid Reason for Visit: sinogram No Known Allergies Pertinent PMH: Patient Active Problem List Diagnoses Code ??? S/P prostatectomy V45.89 ??? Prostate cancer 185 ??? Postoperative hemorrhage 998.11 ??? S/P AVR (aortic valve replacement) V43.3 ??? Infected hematoma following procedure 998.12 No past medical history on file. Pertinent PSH: Past Surgical History Procedure Date ??? Lap, prostatectomy, radical, w/nerve spare 11/20/2012 @LAPAROSCOPIC PROSTATECTOMY, ROBOTICS ASSISTED performed by Ross Madrid MD at [facility] MAIN OR ??? Lap, pelvic lymphadenectomy 11/20/2012 LAPAROSCOPY,WITH BILATERAL TOTAL PELVIC LYMPHADENECTOMY, ROBOTIC performed by Ross Madrid MD at [facility] MAIN OR ? ? Cystourethroscopy w/irrig & evac clots 12/27/2012 CYSTO, IRRIGATION & EVACUATION OF CLOTS performed by Ross Madrid MD at [facility] MAIN OR ??? Ct retroperitoneal abscess drain 01/24/2013 Date/Procedure Comments: 01-04-13 IVC filter Versed 2.5 mg iv, fentanyl 125 mcg iv, ancef 1 gram iv 01/24/2013 Pelvic embolization and then CT guided pelvic drain placement Fentanyl 125 mcg/iv duglas gttstarted (patient changed to ICU status mid-case), 2 UNITS ffp, 2 UNITS rbcS, fluid bolus then Levo started by PROOFING MACHINE OPERATOR 02/08/13 Sinogram No meds 02/16/13 sinogram No meds Laboratory Results: Lab Results [...] Start Date End Date Taking? Authorizing Provider penicillin g potassium 4 million units/100 mL PREMIX Inject 100 mLs into the vein every 4 hours for30 days. 02/13/13 03/15/13 Yes Cely Baires MD BUDESONIDE/FORMOTEROL FUMARATE (SYMBICORT INHL) Inhale 1 puff into the lungs daily. Yes ProviderRanjan MD acetaminophen (TYLENOL) 500 mg tablet Take 2 tablets by mouth every 6 hours as needed for Pain. 01/29/13 Yes Angeles Leong MD ciprofloxacin (CIPRO) 500 mg tablet Take 1 tablet by mouth 2 times daily for 23 days. 01/29/13 02/21/13 Yes Angeles Leong MD ferrous gluconate 325 mg (37.5 mg iron) tablet Take 325 mg by mouth daily (with breakfast). Yes Ranjan Reddy MD omeprazole (PRILOSEC) 20 mg capsule Take 20 mg by mouth daily. Yes Ranjan Reddy MD warfarin (COUMADIN) 7.5 mg tablet Take 7.5 mg by mouth daily. Yes Ranjan Reddy MD montelukast (SINGULAIR) 10 mg tablet Take 10 mg by mouth nightly. Yes Ranjan Reddy MD fluticasone-salmeterol (ADVAIR) 100-50 mcg/dose diskus inhaler Inhale 1 puff into the lungs every 12 hours. Yes Ranjan Reddy MD aspirin 81 mg EC tablet Take 81 mg by mouth daily. Yes Ranjan Reddy MD levothyroxine (SYNTHROID) 50 mcg tablet Take 50 mcg by mouth daily. Yes Ranjan Reddy MD HYDROmorphone (DILAUDID) 2 mg tablet Take [...] needed for Pain. 12/26/12 Fabian Ribeiro MD For outpatient procedures: This patient has been informed that they require a powder truck driver to drive them home after this procedure. In the absence of a powder truck driver, IR will not be able to perform this procedureand will need to reschedule. Pt verbalized understanding of these instructions during the pre-procedure education via phone. * Julius Servin MD - 02/15/2013 2:26 PM EDT Images from the original note were not included. PRE-PROCEDURE VIR NOTE Date of : 1950 Age: 62 y.o. PCP: CAMERON PINEDA MD Referring Physician (if different): [facility] Indication: abdominal abscess s/p drainage; f/u sinogram Planned Procedure: Sinogram Chief Complaint/Diagnosis: per ID Dillan Al is a 62 y.o. male with AVR on coumadin s/p robotic prostatectomy on November 20 complicated with a L pelvic hematoma and ongoing hematuria that got complicated with a superinfected pelvic hematoma with E coli, E coccus (left pelvic 12 x 8 x 6 cm collection, down to 9x6 on 02/08 CT) and transient bacteremia. He has completed 3 weeks of IV antibiotics with PCN/cipro and still has a drain in place with significant drainage and is feeling well. His ESR/CRP/PLT are persistently elevated and he will have sinogram on Friday 02/16. I expect he has some persistent fluid that is not completely drained. IR placed drain 01/24/2013 Pertinent Past Medical/Surgical History: No past medical history on file. Past Surgical History Procedure Date ??? Lap, prostatectomy, radical, w/nerve spare 11/20/2012 @LAPAROSCOPIC PROSTATECTOMY, ROBOTICS ASSISTED performed by Ross Madrid MD at [facility] MAIN OR ??? Lap, pelvic lymphadenectomy 11/20/2012 LAPAROSCOPY,WITH BILATERAL TOTAL PELVIC LYMPHADENECTOMY, ROBOTIC performed by Ross Madrid MD at [facility] MAIN OR ? ? Cystourethroscopy w/irrig & evac clots 12/27/2012 CYSTO, IRRIGATION & EVACUATION OF CLOTS performed by Ross Madrid MD at [facility] MAIN OR ??? Ct retroperitoneal abscess drain 01/24/2013 No Known Allergies Current Outpatient Prescriptions on File Prior to Encounter Medication Sig Dispense Refill ??? penicillin g potassium 4 million units/100 mL PREMIX Inject 100 mLs into the vein every 4 hoursfor 30 days. 06129 mL 0 ??? BUDESONIDE/FORMOTEROL FUMARATE (SYMBICORT INHL) [...] basename: alkphos, ast, albumin, bilidir, bilitot, alt, Imaging: Assessment / Plan: Sinogram Medications to discontinue: None Prophylactic antibiotic: None Planned access site / position: Supine documented in this encounter Procedure Notes * Ronna Cabrera PA - 02/16/2013 10:17 AM EDTProcedure(s): INJECTION CONTRAST\DRAIN CATH\TUBE\ABSCESS\CYST IR Procedure Note Accession Number: [id number] Procedure: LLQ abscess drain injection History/Indication: 62 [...] continues to be tracking of contrast medially, whichthen enters the bladder and outlines the Diallo retention balloon. The drain was flushed and reconnected to bag drainage. Complications: None immediate EBL=0 Medications: None Contrast: 5 cc non-ionic/Omnipaque Fluoroscopy Time: 0.2 minutes Findings: 1. LLQ drain in the expected location. 2. Small residual cavity. 3. Persistent communication of the cavity with the bladder. Images discussed with Dr. Martell, will plan on repeat sinogram in 2 weeks. Procedure performed by Ronna Cabrera PA-C Attending: Delvin Martell MD documented in this encounter Miscellaneous Notes * Miscellaneous - Provider, Scanning - 02/23/2013 9:59 AM EDT documented in this encounter Plan of Treatment Not on file documented as of this encounter Procedures Procedure Name Priority Date/Time Associated Diagnosis Comments IR ALL PROCEDURES Routine 02/16/2013 10:18 AM EDT Hematuria documented in this encounter Results * IR all procedures (02/16/2013 10:18 AM EDT) Anatomical Region Laterality Modality Abdomen X-Ray Angiograph y 02/16/2013 10:1 8 AM EDT Narrative 02/16/2013 6:01 PM EDT IR Procedure Note ?? Accession Number: [id number] ?? Procedure: LLQ abscess drain injection ?? [...] then enters the bladder and outlines the Diallo retention balloon. The drain was flushed and [...] - 02/16/2013 IR Procedure Note Accession Number: [id number] Procedure: LLQ abscess drain injection History/Indication: 62 [...] then enters the bladder and outlines the Diallo retention balloon. The drain was flushed and [...] documented in this encounter Visit Diagnoses Diagnosis Hematuria Hematuria, unspecified documented in this encounter Care Teams Long Term Care Administrator Relationship Specialty Start Date End Date Cameron Pineda MD [address] [place] [address] PCP - General 10/26/12 documented as of this encounter
--- OUTSIDE RECORDS SUMMARY | 2024-04-20 15:07 | XMS_ITS | Encounter Summary ---
Author Organization [facility] [place] [address] Care Team Providers Care Master [employer] Name Role Phone Farnaz Pineda MD Primary Care Provider [phone] Encounter Details Date Type Department Care Team (Latest Contact Info) Description 02/08/2013 8:51 AM EDT - 02/08/2013 11:59 PM EDT Hospital [place] [phone] Jim Martell MD [facility] DIAGNOSTIC [place] [address] S/P AVR (aortic valve replacement) Discharge Disposition: [...] Procedure Name Priority Date/Time Associated Diagnosis Comments APTT STAT 02/08/2013 9:00 AM EDT S/P AVR (aortic valve replacement) PROTHROMBIN TIME STAT 02/08/2013 9:00 AM EDT S/P AVR (aortic valve replacement) documented in this encounter Results * (ABNORMAL) APTT (02/08/2013 9:00 AM EDT) PTT 60(H) 25 - 35 sec CERNER MILLENNIUM Comment: Recommended therapeutic PTT range for full dose unfractionated heparin is 80-114 seconds. Blood specimen (specimen) 02/08/2013 9:00 AM EDT 02/08/2013 9:03 AM EDT Narrative Resulting Agency Comment Spec In Lab Jim Martell MD HEMATOLOGY ORDERABLE S Performing Organization Address [facility] Phone Number DANETTE [employer] * (ABNORMAL) Prothrombin Time (02/08/2013 9:00 AM EDT) PT 25.6(H) 12.0 - 15.0 sec CERNER MILLENNIUM Comment: [facility] Transfusion Committee Guidelines: INR less than 2.0, [...] MD HEMATOLOGY ORDERABLE S Performing Organization Address [facility] de Phone Number DANETTE VALENCIA documented in this encounter Visit Diagnoses Diagnosis S/P AVR (aortic valve replacement) Heart valve replaced by other means documented in this encounter Care Teams Master [employer] Relationship Specialty Start Date End Date Farnaz Pineda MD [address] [place] [address] PCP - General 10/26/12 documented as of this encounter
--- OUTSIDE RECORDS SUMMARY | 2024-04-20 15:07 | XMS_ITS | Encounter Summary ---
Author Organization [place] [address] Care Team Providers Care Border Measurer Name Role Phone Farnaz Pineda MD Primary Care Provider Encounter Details Date Type Department Care Team (Late st Contact Info) Description 02/05/2013 [place] [address] Ronna Cabrera PA [facility] [place] [address] Social History Tobacco Use Types Packs/Day Years [...] on filedocumented in this encounter Care Teams Border Measurer Relationship Specialty Start Date End Date Farnaz Pineda MD [address] [place], [place] [address] PCP - General 10/26/12 documented as of this encounter
--- OUTSIDE RECORDS SUMMARY | 2024-04-20 15:07 | XMS_ITS | Encounter Summary ---
Author Organization [facility] [place] [address] Care Team Providers Care Water Treatment Technician Name Role Phone Farnaz Pineda MD Primary Care Provider [phone] Encounter Details Date Type Department Care Team (Late st Contact Info) Description 02/16/2013 11:50 AM EDT [place] [phone] [facility] 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 He has not been flushing drain. He has been feeling well without pain, fever or chills. Has had some increased output from drain. Exam: S NTND No CVAT Drain fluid serous Plan: - RTC in 2 weeks for repeat sinogram; no obvious risk factors for continued fistula; drain is closeto tract but not protruding into it; we discussed devancing or adjusting drain, however given output and only 1 week without bid flushing, we agreed to a conservative course of continued bladder and abscess cavity drainage - Continue antibiotics documented in this encounter Plan of Treatment Not on file documented as of this encounter Results * IR all drainage procedures (03/02/2013 10:04 AM EDT) Anatomical Region Laterality Modality X-Ray Angiograph y 03/02/2013 10:0 4 AM EDT Narrative 03/03/2013 1:53 PM EDT IR Procedure Note ?? A [id number] ?? Procedure: LLQ pelvic drain injection ?? [...] Attending: Delvin Martell MD Procedure Note Jim Mratell MD - 03/03/2013 IR Procedure Note A [id number] Procedure: LLQ pelvic drain injection History/indication: 62 [...] Attending: Delvin Martell MD Ross Madrid MD G IR ORDERABLES documented in this encounter Visit Diagnoses Diagnosis Abscess- Primary Cellulitis and abscess of unspecified site Abscess Cellulitis and abscess of unspecified site documented in this encounter Care Teams Water Treatment Technician Relationship Specialty Start Date End Date Farnaz Pineda MD [address] [place] [address] PCP - General 10/26/12 documented as of this encounter
--- OUTSIDE RECORDS SUMMARY | 2024-04-20 15:08 | XMS_ITS | Encounter Summary ---
Author Organization [facility] [place] [address] Care Team Providers Care Coil Builder Name Role Phone Farnaz Pineda MD Primary Care Provider [phone] Encounter Details Date Type Department Care Team (Late st Contact Info) Description 01/18/2013 Telephone [place] [phone] Eddie Proctor MD [facility] [place] [address] Social History Tobacco Use Types Packs/Day Years Used Date Smoking Tobacco: Former Cigarettes 1 1 0 11/02/1985 - 11/02/1986 Smokeless Tobacco: Never Alcohol Use Standard Drinks/Week Comments Yes 0 (1 standard drink = 0.6 oz pur e alcohol) 2 gin and tonic per night Sex and Gender Information Value Date Recorded Sex Assigned at Not on file Gender Identity Not on file Sexual Orientation Not on file documented as of this encounter Miscellaneous Notes * Telephone Encounter - Eddie Proctor - 01/18/2013 8:59 AM EDT Pt passed large amount of clot and now feels bladder is full but unable to void. Will come to office for evaluation. documented in this encounter Plan of Treatment Not on file documented as of this encounter Visit Diagnoses Not on filedocumented in this encounter Care Teams Coil Builder Relationship Specialty Start Date End Date Farnaz Pineda MD [address] [place] [address] PCP - General 10/26/12 documented as of this encounter
--- OUTSIDE RECORDS SUMMARY | 2024-04-20 15:08 | XMS_ITS | Encounter Summary ---
Author Organization [facility] [place] [address] Care Team Providers Care Account Manager Education Name Role Phone Cameron Pineda MD Primary Care Provider [phone] Reason for Visit * Reason Comments Hematuria Encounter Details Date Type Department Care Team (Late st Contact Info) Description 12/27/2012 3:43 PM EDT - 12/27/2012 5:12 PM EDT Surgery [place] [id number] Presley Madrid MD [facility] [place] [address] CYSTO, IRRIGATION & EVACUATION OF CLOTS (WRVU 5.44) Social History Tobacco Use Types Packs/Day Years [...] Sign Reading Time Taken Comments Blood Pressure 123/71 12/27/2012 2:41 PM EDT Pulse 90 12/27/2012 2:41 PM EDT Temperature 36.4 ??C (97.5 ??F) 12/27/2012 2:41 PM ED T Respiratory Rate 18 12/27/2012 2:41 PM EDT Oxygen Saturation 100% 12/27/2012 2:41 PM EDT Inhaled Oxygen Concentration - - Weight 100.7 kg (222 lb) 12/27/2012 2:41 PM EDT Height - - Body Mass Index 33.75 12/27/2012 2:41 PM EDT documented in this encounter Discharge Instructions * Patient Instructions* Fabian Bishop - 12/28/2012 3:15 PM EDT Provider Instructions Discharge Instructions CALL YOUR PHYSICIAN IF: 1. You have a fever greater than 101 degrees Farenheit within one month of your surgery. 2. You have diarrhea or vomiting for >24 hours, or stop having bowel movements and passing flatus 3. You have worsening pain, not controlled with your pain medication. 4. You develop redness, swelling, or new drainage from your wound. Your left lower extremity was found to have proximal venous obstruction vs. non occlusive thrombus. Given the intermittent use of warfarin during the betito-procedural period it cannot be concluded with certainty that you developed this occlusion while on anticoagulation. Vascular surgery was curbsided and suggested a repeat duplex if the symptoms don't improve while on your regular warfarin regimen. If you develop shortness of breath or chest pain, seek medical attention immediately, and a filter may then be needed to be placed. Restart coumadin tomorrow 12/29/2012. Prescriptions*: -If you have been prescribed narcotic pain medications (such as Percocet, Vicodin, Oxycodone or Dilaudid) to control your discomfort after surgery. DO NOT use alcohol, drive, or operate heavy or complex machinery while taking these medications. Narcotic pain medications may cause constipation. Stool softeners, such as Colace; mild laxatives, such as Milk of Magnesia, Sennakot, or Ducolax tabs; or enemas may be used if needed and are atei-iwz-kexgajh (OTC) medications available at most local pharmacies. Prunes or prune juice, taken daily, can also be helpful for constipation treatment or p revention and are available at most [employer]. Driving Restrictions*: - No driving if you are too sore from surgery to enter or exit your vehicle comfortably, or if you are too sore to easily check your blind spot. No driving while using prescription pain medications Activities: Discuss return to work or school with your surgeon. No heavy lifting. You may lift what is comfortable to lift with one arm. Nothing greater than 15 pounds until re-evaluated by your physician. Diet: Eat a well-balanced diet. Fresh fruits, vegetables and fiber-containing foods are recommended. Thiswill assist in wound healing. Recommendations: Take it easy for two weeks. Remember, If it hurts, don't do it. Take several slow, short walks each day for the first two weeks, and gradually increase your distance. We recommend at least 4 times a day. Wound Care: You can shower per usual routine and wash the incision area gently. Pat incision dry with a clean, dry towel. Comfort: Take your pain medication as needed and prescribed. Taper use of pain medication as pain lessens. Follow-up Appointments: A Follow-up appointment will be scheduled with Dr. Madrid at the [facility] in 1 week. You will recieve a letter in the mail and/or a phone call with information about this appointment.Please call clinic number for appointments to confirm date and time of your appointment, or if you do not receive information about your appointment in a timely manner. Your surgeon may not be Material Planner, especially during the night or on weekends, so be ready to describe yourself and your surgery when you call. documented in this encounter Medications at Time of Discharge Medication Sig Dispensed Refills Start Date End Date omeprazole (PRILOSEC) 20 mg capsule Take 20 mg by mouth daily. warfarin (COUMADIN) 7.5 mg tablet Take 7.5 mg by mouth daily. montelukast (SINGULAIR) 10 mg tablet Take 10 mg by mouth nightly. levothyroxine (SYNTHROID) 50 mcg tablet Take 50 mcg by mouth daily. hydroCODone-acetaminoph en (VICODIN) 5-500 mg per tablet Take 1-2 tablets by mouth every 4 hours as needed for Pain. 40 tablet 0 12/26/2012 06/14/2013 ferrous gluconate 325 mg (37.5 mg iron) tablet Take 325 mg by mouth daily (with breakfast). 06/14/2013 hydroCODone-acetaminoph en (VICODIN) 5-500 mg per tablet Take 1-2 tablets by mouth every 4 hours as needed for Pain. 30 tablet 0 11/21/2012 01/05/2013 fluticasone-salmeterol (ADVAIR) 100-50 mcg/dose diskus inhaler Inhale 1 puff into the lungs every 12 hours. 06/14/2013 aspirin 81 mg EC tablet Take 81 mg by mouth daily. 07/28/2018 documented as of this encounter Progress Notes * Jessica Jaramillo RN - 12/28/2012 4:55 PM EDT Patient???s pain level has been assessed and patient states that his/her level is tolerable at thistime. The After Visit Summary (AVS) and accompanying hand-outs have been reviewed with the patient; the patient verbalizes understanding at this time. Opportunity for clarification provided. Previous medications have been reviewed with the patient and the appropriate hand-outs have been given to the patient. Reportable sign and symptoms have been reviewed with patient, patient and demonstrate understanding. The patient has met discharge criteria per policy. Patient discharged to care of . * Fabian Bishop - 12/28/2012 11:03 AM EDT Progress Note Dillan Al is a 62 y.o. male s/p cystoscopy, irrigation and evacuation of clots S: Denies nausea/vomiting, chest pain, SOB, or itchiness. Pain well controlled, no complaints and feels great. O: Temp: [36.7 ??C (98.1 ??F)-36.8 ??C (98.2 ??F)] Heart Rate: [84-94] Resp: [16] BP: (101-108)/(54-59) SpO2: [97 %] I/O last 3 completed shifts: In: 2204 [P.O.:960; I.V.:1244] Out: 3800 [Urine:3800] Physical Exam Gen: A&Ox3, NAD, lying comfortably in bed, pleasant and cooperative. CV: RRR, no JVD Pulm: CTAB throughout anteriorly. Comfortable on room air Abd: Soft, nontender, nondistended, : Womack in place to gravity, draining clear yellow urine. Extr: moving all 4 extremities, Left leg edema and erythema, but non-tender Recent Labs Basename 12/28/12 0430 12/27/12 1550 WBC 8.8 11.2* HGB 6.9* 8.2* PLATELET 487* -- Recent Labs Basename 12/27/12 1550 12/24/12 0233 NA 141 138 K 3.8 3.9 CL 105 108* CO2 26 24 Recent Labs Basename 12/27/12 1550 12/24/12 0233 BUN 20 19 CREATININE 1.22 1.23 Imaging Postop CXR: None A/P Dillan Al is a 62 y.o. male s/p cystoscopy with evacuation of clot. POD#1. Currently in stable condition and recovering well. Hgb of 6.9. Not very concerning as patient is asymptomatic and anemia is most likely dilutional. Patient is in good spirits today and very satisfied with his management. We will be getting a Duplex of B/L LE due to swelling, erythema and induration of calf L>R.If patient becomes lightheaded or weak we may transfuse 1 Unit. -Continue current management -F/U duplex for DVT -Monitor sxms of anemia and will transfuse if necessary FABIAN BISHOP MD 12/28/2012 * Kylee Storey RN - 12/28/2012 10:31 AM EDT Office of Care Management(OCM)/Clinical Registered Nursing Professor(CRC) Discharge Planning CRC Service: Urology CRC :Belen Woods,RN,BS pager [phone] Covering CRC: Kylee StoreyRN,BSN,MA pager [phone] O:Record reviewed and patient discussed with multidisciplinary team. No discharge needs identified at this time. CRC remains available as needed for coordination of care and discharge planning. 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 Declines home health services. * Jessica Jaramillo RN - 12/28/2012 9:00 AM EDT Patient with LLE edema, positive palpable pulses. Non tender, no redness noted, warmth equal to right LE. Patient scheduled for Vascular study. Continue to monitor closely. * Heladio Ovalle RN - 12/27/2012 9:24 PM EDT Left lower leg red and warm/hot--pos. Pulses--No SCD to left leg-- * Heladio Ovalle RN - 12/27/2012 9:22 PM EDT Fom PAC-U in a bed ---alert and oriented x3--CBI running very light pink color---5 mg po oxycodone given for pain--Eating sandwich,drinking water --- * Juan Luis Finley RN - 12/27/2012 8:01 PM EDT 1999: Assumed care of pt after hand-off report from [place]; pt resting quietly with eyes closed,awakened immediately to voice; 2002: Telephoned report to Sinan DELA CRUZ in Pediatrics; Pt ready for transport; CBI is pink and clear; * Madhuri Mantilla MD - 12/27/2012 7:39 PM EDT General Surgery Post-op Note Dillan Al is a 62 y.o. male s/p the following procedure: cystoscopy, irrigation and evacuationof clots S: Denies nausea/vomiting, chest pain, SOB, or itchiness. Pain well controlled, no complaints, verysatisfied with prompt surgical management, feels great. Looking forward to not having to monitor his urine output in the future! O: Temp: [36.4 ??C (97.5 ??F)-36.6 ??C (97.9 ??F)] Heart Rate: [90-98] Resp: [16-18] BP: (111-123)/(65-71) SpO2: [95 %-100 %] I/O last 3 completed shifts: In: 300 [I.V.:300] Out: - Physical Exam Gen: A&Ox3, NAD, lying comfortably in bed, speaking full sentences, pleasant and cooperative. CV: Regular rate in 90's during exam, no JVD Pulm: CTAB throughout anteriorly. Comfortable on room air Abd: Soft, nontender, nondistended, : Womack in place to gravity, draining remarkably clear yellow urine. CBi is at a slow drip Extr: WWP, moving all 4 extremities, no c/c/e, venodynes in place Recent Labs Basename 12/27/12 1550 12/25/12 0543 WBC 11.2* 10.8* HGB 8.2* 8.0* PLATELET 542* -- Recent Labs Basename 12/27/12 1550 12/24/12 0233 NA 141 138 K 3.8 3.9 CL 105 108* CO2 26 24 Recent Labs Basename 12/27/12 1550 12/24/12 0233 BUN 20 19 CREATININE 1.22 1.23 Imaging Postop CXR: None A/P Dillan Al is a 62 y.o. male s/p cystoscopy with evacuation of clot. currently in stable condition and recovering well. Continue current management. Will monitor CBI overnight and check H+H for post op anemia. MADHURI MANTILLA MD 12/27/2012 documented in this encounter H&P Notes * Juanjo Galarza P - 12/27/2012 4:06 PM EDT Urology H&P Mr. Al is a 62 male s/p RALRP with Dr. 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 He has a mechanical aortic valve for which he has been on warfarin and aspirin. His post operative course was complicated by hematuria and clot retention for which he was hospitalized 12/23-12/25. He was irrigated out clear and went home off warfarin, to be resumed tomorrow. After having had a few days of clear urine, he noted some blood spots in his urine overnight and this morning. Later this morning he found him self in retention with severe lower abdominal pains. He presented to [facility] and a Womack was inserted, returning bloody urine. His symptoms were relieved. Old clots were noted in the urine. He was transferred to [facility] for further management. PMH: Hypothyroidism Astma PSH: Mechanical AVR Radical prostatectomy ROS: No MASCORRO/CP/SOB/N/V/F/C. ROS neg apart from symptoms PE: NAD Alert and oriented. Metallic click, regular on aucultation Clear bilateral Abdomen soft. Incisions c/d/i. No tenderness or sense of urgency on suprapubic palpation Womack in place draining red brown urine with small amount of old clots. Recent Labs Basename 12/27/12 1550 12/25/12 1002 12/25/12 0543 WBC 11.2* -- 10.8* HGB 8.2* -- 8.0* HCT 27.0* -- 25.6* PLATELET 542* -- 383* NA -- -- -- K -- -- -- CL -- -- -- CO2 -- -- -- BUN -- -- -- CREATININE -- -- -- INR -- 1.6* -- Imaging: None pertinent A: Recurrent hematuria clot retention, despite holding warfarin. Likely old clot P: NPO. To OR this afternoon for cysto clot evacuation. Admit for observation overnight. documented in this encounter ED Notes * Aretha Gaston RN - 12/27/2012 4:42 PM EDT Patient report given to OR. Patient aware. documented in this encounter Miscellaneous Notes * Miscellaneous - Provider, Scanning - 12/29/2012 11:08 AM EDT * Miscellaneous - Provider, Scanning - 12/29/2012 11:07 AM EDT * Discharge Summary - Fabian Bishop - 12/28/2012 3:04 PM EDT UROLOGY DEPARTMENT Inpatient - Discharge Summary Patient Name: Dillan Al Patient Age: 62 y.o. : 1950 Attending Physician: Presley Madrid MD;[facility]* Date of Admission: 12/27/2012 Date of Discharge: 12/28/2012 Diagnosis: Hematuria and clot retention HPI and Hospital Course: Dillan Al is a 62 y.o. male admitted on 12/27/2012 for hematuria and clot retention. He is s/p RALRP with Dr. Madrid for [place] 3+4 Adenocarcinoma with a minor Shasha 5 component on 11/20/2012. He has a mechanical aortic valve for which he has been on warfarin and aspirin. His post operative course was complicated by hematuria and clot retention for which he was hospitalized 12/23-12/25. He was irrigated out clear and went home off warfarin. After having had a few days of clear urine, he noted some blood spots in his urine overnight and inthe morning. Later he found himself in retention with severe lower abdominal pains. He presented [facility] and a Womack was inserted, returning bloody urine. His symptoms were relieved. Old clots were noted in the urine. He was transferred to [facility] for further management. He underwent cysto clot evacuation on 12/27. He tolerated the procedure well without complication. Of note, he developed LLE edema and erythema concerning for DVT. Duplex study showed: RIGHT- No evidence of lower extremity deep vein thrombosis. LEFT- Continuous Doppler waveforms in the external iliac and common femoral vein may indicate a more proximal venous obstruction vs. non occlusive thrombus. No direct evidence of lower extremity deep vein thrombosis. Given the intermittent use of warfarin during the betito-procedural period it cannot be concluded with certainty that he developed this occlusion while on anticoagulation. Vascular surgery was curbsided and suggested repeat duplex if the sxms don't improve while on regular warfarin regimen. If he develops pulmonary sxms suggestive of pulmonary embolus then a filter may be needed. Dillan Al's pain was adequately controlled, he was maintaining adequate oxygen saturation on room air, and was hemodynamically stable. He was tolerating a diet without abdominal complaints and voiding adequately. WBC and Hgb were stable. He was ambulating. Dillan Al was evaluated by the Urology Team and deemed medically stable for discharge. Updated Allergies/ADRs: No Known Allergies Operations/Major Procedures: Operations: 12/27/2012 Surgeon(s) and Role: * Presley Madrid MD - Primary * Juanjo Galarza MD - Resident-Surgeon Chief: Procedure(s): CYSTO, IRRIGATION & EVACUATION OF CLOTS Pending Lab Data at Discharge: None. Condition at Discharge: Stable Important Studies and Lab Data: Labs: Recent Labs Basename 12/28/12 0430 12/27/12 1550 WBC 8.8 11.2* HGB 6.9* 8.2* HCT 22.6* 27.0* PLATELET 487* 542* PT -- 16.3* INR -- 1.3* PTT -- 38* Recent Labs Basename 12/27/12 1550 NA 141 K 3.8 CL 105 CO2 26 BUN 20 CREATININE 1.22 GLUCOSE 91 CALCIUM -- MAGNESIUM -- PHOS -- Studies: 12/28 Duplex: RIGHT- No evidence of lower extremity deep vein thrombosis. LEFT- Continuous Doppler waveforms in the external iliac and common femoral vein may indicate a more proximal venous obstruction vs. non occlusive thrombus. No direct evidence of lower extremity deep vein thrombosis. Discharge Examination: Last value Range last 12 hrs Temperature Temp: 36.6 ??C (97.9 ??F) Temp: [36.6 ??C (97.9 ??F)-36.8 ??C (98.2 ??F)] Heart Rate Heart Rate: 80 Heart Rate: [80-94] Blood Pressure BP: 134/60 mmHg BP: (101-134)/(54-60) Respiratory Rate Resp: 18 Resp: [16-18] SpO2 SpO2: 100 % SpO2: [97 %-100 %] I/Os: I/O last 3 completed shifts: In: 2204 [P.O.:960; I.V.:1244] Out: 3800 [Urine:3800] Physical Exam: Gen: A&Ox3, NAD, lying comfortably in bed, pleasant and cooperative. CV: RRR, no JVD Pulm: CTAB throughout anteriorly. Comfortable on room air Abd: Soft, nontender, nondistended, : Womack removed. Good UOP Extr: moving all 4 extremities, Left leg edema and erythema, but non-tender. Discharge to: Home Discharge Conditions/Prognosis: Stable Discharge Medications: The following medications have been prescribed for you. If you notice any adverse reactions to your medications, please contact your primary care physician immediately or go tothe nearest Emergency Department. Current Discharge Medication List Continued medications, unchanged Dose Details !! hydroCODone-acetaminophen (VICODIN) 5-500 mg per tablet 1-2 tablets Take 1-2 tablets by mouth every 4 hours as needed for Pain. Qty: 40 tablet Refills: 0 ferrous gluconate 325 mg (37.5 mg iron) tablet 325 mg Take 325 mg by mouth daily (with breakfast). !! hydroCODone-acetaminophen (VICODIN) 5-500 mg per tablet 1-2 tablets Take 1-2 tablets by mouth every 4 hours as needed for Pain. Qty: 30 tablet Refills: 0 omeprazole (PRILOSEC) 20 mg capsule 20 mg Take 20 mg by mouth daily. warfarin (COUMADIN) 7.5 mg tablet 7.5 mg Take 7.5 mg by mouth daily. montelukast (SINGULAIR) 10 mg tablet 10 mg Take 10 mg by mouth nightly. fluticasone-salmeterol (ADVAIR) 100-50 mcg/dose diskus inhaler 1 puff Inhale 1 puff into the lungs every 12 hours. aspirin 81 mg EC tablet 81 mg Take 81 mg by mouth daily. levothyroxine (SYNTHROID) 50 mcg tablet 50 mcg Take 50 mcg by mouth daily. !! - Potential duplicate medications found. Please discuss with provider. Follow-up Care & Plans: For questions, orders or appointments related to your continuing care after your discharge, you or your provider should contact the physician that managed that part of your care. Urology - [phone] Scheduled Appointments: The following appointments have been scheduled on your behalf: Future Appointments and Orders Future Appointments: Provider: Department: Dept Phone: Center: 01/04/2013 1:40 PM Presley Madrid MD Urology [phone] [facility] 03/13/2013 10:30 AM Presley Madrid MD Urology [phone] [facility] Joint Appt Questionnaire [facility] Urology [phone] [facility] Future Orders Please Complete By Expires CBC (with Diff) [[id number] Custom] 01/04/13 12/28/13 Process Instructions: INCLUDES: WBC, RBC, Hgb, Hct, Platelets, RBC Indices and Differential Scheduling Instructions: Comments: Questions: Responses: Should this service/procedure be billed to the research sponsor? Outpatient Services/Studies: CBC (with Diff) Standing Status: Future Standing Exp. Date: 12/28/13 Instructions Given to Patient at Discharge: Provider Instructions Provider Instructions Discharge Instructions CALL YOUR PHYSICIAN IF: 1. You have a fever greater than 101 degrees Farenheit within one month of your surgery. 2. You have diarrhea or vomiting for >24 hours, or stop having bowel movements and passing flatus 3. You have worsening pain, not controlled with your pain medication. 4. You develop redness, swelling, or new drainage from your wound. Your left lower extremity was found to have proximal venous obstruction vs. non occlusive thrombus. Given the intermittent use of warfarin during the betito-procedural period it cannot be concluded with certainty that you developed this occlusion while on anticoagulation. Vascular surgery was curbsided and suggested a repeat duplex if the symptoms don't improve while on your regular warfarin regimen. If you develop shortness of breath or chest pain, seek medical attention immediately, and a filter may then be needed to be placed. Restart coumadin tomorrow 12/29/2012. Prescriptions*: -If you have been prescribed narcotic pain medications (such as Percocet, Vicodin, Oxycodone or Dilaudid) to control your discomfort after surgery. DO NOT use alcohol, drive, or operate heavy or complex machinery while taking these medications. Narcotic pain medications may cause constipation. Stool softeners, such as Colace; mild laxatives, such as Milk of Magnesia, Sennakot, or Ducolax tabs; or enemas may be used if needed and are uoeu-clr-bvfaptj (OTC) medications available at most local pharmacies. Prunes or prune juice, taken daily, can also be helpful for constipation treatment or p revention and are available at most [employer]. Driving Restrictions*: - No driving if you are too sore from surgery to enter or exit your vehicle comfortably, or if you are too sore to easily check your blind spot. No driving while using prescription pain medications Activities: Discuss return to work or school with your surgeon. No heavy lifting. You may lift what is comfortable to lift with one arm. Nothing greater than 15 pounds until re-evaluated by your physician. Diet: Eat a well-balanced diet. Fresh fruits, vegetables and fiber-containing foods are recommended. Thiswill assist in wound healing. Recommendations: Take it easy for two weeks. Remember, If it hurts, don't do it. Take several slow, short walks each day for the first two weeks, and gradually increase your distance. We recommend at least 4 times a day. Wound Care: You can shower per usual routine and wash the incision area gently. Pat incision dry with a clean, dry towel. Comfort: Take your pain medication as needed and prescribed. Taper use of pain medication as pain lessens. Follow-up Appointments: A Follow-up appointment will be scheduled with Dr. Madrid at the Urology Outpatient Clinic in 1 week. You will recieve a letter in the mail and/or a phone call with information about this appointment.Please call clinic number for appointments to confirm date and time of your appointment, or if you do not receive information about your appointment in a timely manner. Your surgeon may not be Material Planner, especially during the night or on weekends, so be ready to describe yourself and your surgery when you call. Future Appointments and Orders Future Appointments: Provider: Department: Dept Phone: Center: 01/04/2013 1:40 PM Presley Madrid MD Urology [phone] [facility] 03/13/2013 10:30 AM Presley Madrid MD Urology [phone] [facility] Joint Appt Questionnaire [facility] Urology [phone] [facility] Future Orders Please Complete By Expires CBC (with Diff) [[id number] Custom] 01/04/13 12/28/13 Process Instructions: INCLUDES: WBC, RBC, Hgb, Hct, Platelets, RBC Indices and Differential Scheduling Instructions: Comments: Questions: Responses: Should this service/procedure be billed to the research sponsor? Call your doctor if: Please call your doctor immediately or go to an Emergency Department if you notice worsening pain not controlled by pain medications, uncontrolled headache, vision changes, chest pain, difficulty breathing, persistent nausea and vomiting, new redness or swelling in any extremities, new onset weakness or changes in sensation, or for any fevers greater than 101.3 F. Your care was managed by the Urology Team at [facility]. If you have any questions or concerns, please feel free to contact us. Provider Contact Information: Urology Clinic: [facility] (after business hours): CC: CAMERON PINEDA MD Signed: 12/28/2012 * Miscellaneous - Provider, Scanning - 12/27/2012 11:05 PM EDT * OR Attestation - Presley Madrid MD - 12/27/2012 6:13 PM EDT Attestation: Case Date: 12/27/2012 I was present and I participated during the entire procedure (does not need to include opening and closing). PRESLEY MADRID MD 12/27/2012 * Op Note - Juanjo Galarza - 12/27/2012 6:12 PM EDT [facility] Operative Note Patient Name: Dillan Al : [id number] MR#: [id number] Case Date: 12/27/2012 Surgeon: Surgeon(s) and Role: * Presley Madrid MD - Primary * Juanjo Galarza MD - Resident-Surgeon Chief Preoperative diagnosis: Hematuria clot retention Postoperative diagnosis: * No post-op diagnosis entered * Procedure(s): CYSTO, IRRIGATION & EVACUATION OF CLOTS Anesthesia: General Findings: 1. A small cavity or false passage at the cystourethral anastomosis. 2. Large organized clot in the bladder irrigated out. 3. Clot free at the end of the case Complications: None Fluids: 400 mL Estimated Blood Loss: None Drains: 22Fr 3-way womack with a 30mL balloon Disposition: awakened from anesthesia, extubated and taken to the recovery room in a stable condition, having suffered no apparent untoward event. Condition: doing well without problems (Please see the Surgical Encounter Summary for any Implant and Specimen details pertinent to this patient.) Operative Indications: Mr. Al is five weeks out from a cystoprostatectomy for prostate cancer. He developed a hematoma on anticoagulant next to the anastomosis. He was recently admitted for hematuria clot evacuation and now presents again with the same complaint. We therefore decided to take him to the operating room for clot evacuation. Operative Description: After the patient had given informed consent, he was taken to the operating room, where he underwent general anesthesia, received IV gentamicin and Ancef, was placed in the dorsal lithotomy position, prepped, and draped. A time out was performed where no concerns were raised. We entered the urethra with a 30-degree cystoscope. At the site of the cystourethral anastomosis, one can identify a false passage or an erosion, where probably the hematoma had intruded into the bladder and urethra. Otherwise, the circumference of the anastomosis was well healed. In the bladder, one could identify a very large organized old clot. Using an Ellik, we irrigated that clot out and subsequently repeated a cystoscopy, identifying no clots. At the end of the case, we placed a 20 Lao 3-way catheter in the bladder to continuous irrigation. There was minimal resistance at the level of the anastomosis, but it did slide well in and flushed easily. The catheter output was clear with a mild pink tinge at the end of the case. He will be admitted to the hospital for overnight observation. * Brief Op Note - Juanjo Galarza - 12/27/2012 6:09 PM EDT Brief Operative Note Patient Name: Dillan Al : [id number] MR#: [id number] Case Date: 12/27/2012 Surgeon: Surgeon(s) and Role: * Presley Madrid MD - Primary * Juanjo Galarza MD - Resident-Surgeon Chief Preoperative diagnosis: Hematuria clot retention Postoperative diagnosis: * No post-op diagnosis entered * Procedure(s): CYSTO, IRRIGATION & EVACUATION OF CLOTS Anesthesia: General Findings: 1. A small cavity or false passage at the cystourethral anastomosis. 2. Large organized clot in the bladder irrigated out. 3. Clot free at the end of the case Complications: None Fluids: 400 mL Estimated Blood Loss: None Drains: 22Fr 3-way womack with a 30mL balloon Disposition: awakened from anesthesia, extubated and taken to the recovery room in a stable condition, having suffered no apparent untoward event. Condition: doing well without problems (Please see the Surgical Encounter Summary for any Implant and Specimen details pertinent to this patient.) * Brief Op Note - Presley Madrid MD - 12/27/2012 6:04 PM EDT Brief Operative Note Patient Name: Dillan Al : [id number] MR#: [id number] Case Date: 12/27/2012 Surgeon: Surgeon(s) and Role: * Presley Madrid MD - Primary * Juanjo Galarza MD - Resident-Surgeon Chief Preoperative diagnosis: Hematuria clot retention Postoperative diagnosis: * No post-op diagnosis entered * Procedure(s): CYSTO, IRRIGATION & EVACUATION OF CLOTS Anesthesia: * No anesthesia type entered * Findings: see operative note in eDH from 12/27/12 Complications: see operative note in eDH from 12/27/12 Fluids: see operative note in eDH from 12/27/12 Estimated Blood Loss: see operative note in eDH from 12/27/12 Drains: see operative note in eDH from 12/27/12 Disposition: awakened from anesthesia, extubated and taken to the recovery room in a stable condition, having suffered no apparent untoward event. Condition: doing well without problems (Please see the Surgical Encounter Summary for any Implant and Specimen details pertinent to this patient.) * Miscellaneous - Provider, Scanning - 12/27/2012 2:59 PM EDT * ED Triage - An Bundy RN - 12/27/2012 2:42 PM EDT Patient has had some problems with urinary retention since having Prostate surgery in Nov. He states he wasn't able to urinate since early am after returning home yesterday from here. Dr Whitman arranged for him to get a catheter at [facility] prior to coming down today. He has about 100 ml bloody urine inhis catheter bag. He is alert, skin pink,warm and dry. documented in this encounter Plan of Treatment Not on file documented as of this encounter Procedures Procedure Name Priority Date/Time Associated Diagnosis Comments DUPLEX FOR DVT BILAT LEGS Routine 12/28/2012 8:14 AM EDT SCAN, PERIPHERAL BLOOD Routine 12/28/2012 4:30 AM EDT DIFFERENTIAL, AUTOMATED Routine 12/28/2012 4:30 AM EDT CBC (WITH DIFF) Routine 12/28/2012 4:30 AM EDT CYSTO, IRRIGATION & EVACUATION OF CLOTS (WRVU 5.44) 12/27/2012 5:10 PM EDT Hematuria clot retention SCAN, PERIPHERAL BLOOD STAT 12/27/2012 3:50 PM EDT DIFFERENTIAL, AUTOMATED STAT 12/27/2012 3:50 PM EDT CREATININE STAT 12/27/2012 3:50 PM EDT ABO/RH TYPING STAT 12/27/2012 3:50 PM EDT APTT STAT 12/27/2012 3:50 PM EDT PROTHROMBIN TIME STAT 12/27/2012 3:50 PM EDT CBC (WITH DIFF) STAT 12/27/2012 3:50 PM EDT ANTIBODY SCREEN STAT 12/27/2012 3:50 PM EDT TYPE AND SCREEN (MC/CGP/CONSTANTINE) STAT 12/27/2012 3:50 PM EDT BUN STAT 12/27/2012 3:50 PM EDT GLUCOSE, RANDOM STAT 12/27/2012 3:50 PM EDT ELECTROLYTES PANEL STAT 12/27/2012 3: 50 PM EDT documented in this encounter Results * (ABNORMAL) CBC (with Diff) (06/14/2013 2:16 [...] MILLENNIUM RDWCV 17.1(H) 10.9 - 14.4 % CERNER MILLENNIUM MPV 10.3 9.0 - 12.0 fL CERNER MILLENNIUM Blood specimen (specimen) 06/14/2013 2:16 PM EDT 06/14/2013 2:26 PM EDT Narrative Resulting Agency Comment Spec In Lab Presley Madrid MD HEMATOLOGY ORDERABLE S DANETTE VALENCIA * CYSTO,IRRIGATION & EVACUATION OF CLOTS (01/18/2013 5:30 PM EDT) Narrative Presley Madrid MD - 01/18/2013 5:30 PM EDT Presley Madrid MD ? 01/18/2013 ??5:30 PM Procedure: Flexible cystoscopy. Surgeon: Mercy Pre-Operative Diagnosis: Gross hematuria, anticoagulated, s/p RALRP Post-Operative Diagnosis: Anastamosis circumferentially healed, inflamed friable tissue at bladder neck, no clots in bladder Complications: None. Procedure: After informed consent was obtained and the external genitalia appropriately had been cleaned and draped lidocaine was instilled into the urethra to achieve topical anesthesia. The flexible telescope was inserted into the urethra and advanced into the bladder under direct vision.The anastamosis was healed in; there was no opening toward hematoma at the 5 o'clock position as on prior cystoscopy. ??There was some shaggy friable tissue at the anastamosis but it appeared intact. ??There was no clot in the bladder. ??There was no active bleeding. The scope was removed and the patient tolerated the procedure well. Plan: - oral hydration - monitor for signs of recurrent bleeding - encouraging that anastamosis appears healed, bleeding likely from inflamed tissue in setting of anticoagulation (pt states recent INR 4.9) - strict INR control as best possible Procedure Note Presley Madrid MD - 01/18/2013 5:24 PM EDT Procedure: Flexible cystoscopy. Surgeon: Mercy Pre-Operative Diagnosis: Gross hematuria, anticoagulated, s/p RALRP Post-Operative Diagnosis: Anastamosis circumferentially healed, inflamedfriable tissue at bladder neck, no clots in bladder Complications: None. Procedure: After informed consent was obtained and the external genitaliaappropriately had been cleaned and draped lidocaine was instilled into theurethra to achieve topical anesthesia. The flexible telescope was inserted into the urethra and advanced into thebladder under direct vision.The anastamosis was healed in; there was noopening toward hematoma at the 5 o'clock position as on prior cystoscopy.There was some shaggy friable tissue at the anastamosis but it appearedintact. There was no clot in the bladder. There was no activebleeding. The scope was removed and the patient tolerated the procedure well. Plan: - oral hydration - monitor for signs of recurrent bleeding - encouraging that anastamosis appears healed, bleeding likely frominflamed tissue in setting of anticoagulation (pt states recent INR 4.9) - strict INR control as best possible Presley Madrid MD GENERAL SURGICAL ORD ERABLES * Duplex Study for DVT, Bilat legs (12/28/2012 8:14 AM EDT) VB Text Report Department: Vascular Surgery Lab Patient: [id number] (DILLAN AL) CPT Code: 58938 ICD-9: 782.3 Referring Physician: PRESLEY MADRID Indication: ??Leg led edema s/p surgery ICD9 Diagnosis Code: 782.3 RIGHT: Patent common femoral vein and popliteal vein with spontaneous, respirophasic Doppler waveforms that respond normally to augmentation maneuvers. The common femoral vein, saphenofemoral junction, femoral vein through the thigh and the popliteal vein are fully compressible. Patent posterior tibial and peroneal veins with no evidence of thrombus. LEFT: The external iliac and common femoral vein are patent with more continuous Doppler waveforms, however, these veins respond normally to augmentation maneuvers, may be consistent with a more proximal venous obstruction vs. non occlusive thrombus. Patent popliteal vein with spontaneous, respirophasic Doppler waveforms that respond normally to augmentation maneuvers. The common femoral vein, saphenofemoral junction, femoral vein through the thigh and the popliteal vein are fully compressible. Patent posterior tibial and peroneal veins with no evidence of thrombus. Interpretation: RIGHT: No evidence of lower extremity deep vein thrombosis. LEFT: Continuous Doppler waveforms in the external iliac and common femoral vein may indicate a more proximal venous obstruction vs. non occlusive thrombus. No direct evidence of lower extremity deep vein thrombosis. Comparison: ??No previous study in our vascular lab database for comparison. Signed by CATRACHO BAKER on 2013-01-03 02:23:02 PM VASCUBASE 12/28/2012 8:14 AM EDT Presley Madrid MD VASCULAR ORDERABLES VASCUBASE * (ABNORMAL) Differential, Automated (12/28/2012 4:30 AM EDT) Neutrophils % 67.1 34.0 - 71.0 % CERNER MILLENNIUM Neutr Abs (ANC) 5.92 1.50 - 6.30 x10(3)/mc L CERNER MILLENNIUM Lymphocytes % 13.4(L) 19.0 - 53.0 % CERNER MILLENNIUM Lymphocytes Abs 1.2 1.0 - 3.6 x10(3)/mc L CERNER MILLENNIUM Monocytes % 11.9 4.0 - 13.0 % CERNER MILLENNIUM Monocyte Abs 1.0 0.2 - 1.0 x10(3)/mc L CERNER MILLENNIUM Eosinophils % 6.1 0.0 - 7.0 % CERNER MILLENNIUM Eosinophils Abs 0.5 0.0 - 0.5 x10(3)/mc L CERNER MILLENNIUM Basophils % 0.6 0.0 - 2.0 % CERNER MILLENNIUM Basophils Abs 0.0 0.0 - 0.2 x10(3)/mc L CERNER MILLENNIUM Immature Gran % 0.90(H) 0.00 - 0.66 % CERNER MILLENNIUM Comment: Immature granulocytes(IG's)percentage and absolute count will include metamyelocytes, myelocytes, and promyelocytes. Blood smears from CBCs yielding IG's will be scanned manually for concordance. If this scan disagrees with the automated IG or if promyelocytes are noted, a manual differential will be performed. Yeni Gran Abs 0.08(H) 0.00 - 0.05 x10(3)/mc L CERNER MILLENNIUM Blood specimen (specimen) 12/28/2012 4:30 AM EDT 12/28/2012 4:43 AM EDT Presley Madrid MD HEMATOLOGY ORDERABLE S Performing Organization Address [facility] Co de Phone Number CERNER MINNIEENNIUM * Scan, Peripheral Blood (12/28/2012 4:30 AM EDT) Plat Estimate Increased CERNER MILLENNIUM RBC Morphology Abnormal CERNE R MILLENNIUM Macrocytes 1-5 /HPF CERNER MILLENNIUM Microcytes 1-5 /HPF CERNER MILLENNIUM Polychromasia Present >5/HPF CERNER MILLENNIUM Blood specimen (specimen) 12/28/2012 4:30 AM EDT 12/28/2012 4:43 AM EDT Narrative Resulting Agency Comment Spec In Lab Presley Madrid MD HEMATOLOGY ORDERABLE S Performing Organization Address [facility] de Phone Number CERNER MILLENNIUM * (ABNORMAL) CBC (with Diff) (12/28/2012 4:30 AM EDT) WBC 8.8 4.0 - 10.0 x10(3)/mcL CERNER MILLENNIUM RBC 2.55(L) 4.63 - 6.08 x10(6)/mcL CERNER MILLENNIUM Hemoglobin 6.9(L) 13.7 - 17.5 gm/dL CERNER MILLENNIUM Hematocrit 22.6(L) 40.0 - 51.0 % CERNER MILLENNIUM MCV 88.6 79.0 - 92.0 fL CERNER MILLENNIUM MCH 27.1 25.6 - 32.2 pg CERNER MILLENNIUM MCHC 30.5(L) 32.0 - 36.5 gm/dL CERNER MILLENNIUM Platelets 487(H) 145 - 370 x10(3)/mcL CERNER MILLENNIUM RDWSD 61.9(H) 35.0 - 46.0 fL CERNER MILLENNIUM RDWCV 19.2(H) 10.9 - 14.4 % CERNER MILLENNIUM MPV 9.0 9.0 - 12.0 fL CERNER MILLENNIUM Blood specimen (specimen) 12/28/2012 4:30 AM EDT 12/28/2012 4:43 AM EDT Narrative Resulting Agency Comment Spec In Lab Presley Madrid MD HEMATOLOGY ORDERABLE S CERNER MINNIEENNIUM * Scan, Peripheral Blood (12/27/2012 3:50 PM EDT) Plat Estimate Increased CERNER MILLENNIUM RBC Morphology Abnormal CERNE R MILLENNIUM Ovalocytes 1-5 /HPF CERNER MILLENNIUM Blood specimen (specimen) 12/27/2012 3:50 PM EDT 12/27/2012 4:04 PM EDT Narrative Resulting Agency Comment Spec In Lab Gricelda Tolbert MD HEMATOLOGY ORDERABLE S CERNER MILLENNIUM * (ABNORMAL) Differential, Automated (12/27/2012 3:50 PM EDT) Neutrophils % 71.5(H) 34.0 - 71.0 % CERNER MILLENNIUM Neutr Abs (ANC) 8.01(H) 1.50 - 6.30 x10(3)/mc L CERNER MILLENNIUM Lymphocytes % 11.7(L) 19.0 - 53.0 % CERNER MILLENNIUM Lymphocytes Abs 1.3 1.0 - 3.6 x10(3)/mc L CERNER MILLENNIUM Monocytes % 8.6 4.0 - 13.0 % CERNER MILLENNIUM Monocyte Abs 1.0 0.2 - 1.0 x10(3)/mc L CERNER MILLENNIUM Eosinophils % 6.2 0.0 - 7.0 % CERNER MILLENNIUM Eosinophils Abs 0.7(H) 0.0 - 0.5 x10(3)/mc L CERNER MILLENNIUM Basophils % 0.9 0.0 - 2.0 % CERNER MILLENNIUM Basophils Abs 0.1 0.0 - 0.2 x10(3)/mc L CERNER MILLENNIUM Immature Gran % 1.10(H) 0.00 - 0.66 % CERNER MILLENNIUM Comment: Immature granulocytes(IG's)percentage and absolute count will include metamyelocytes, myelocytes, and promyelocytes. Blood smears from CBCs yielding IG's will be scanned manually for concordance. If this scan disagrees with the automated IG or if promyelocytes are noted, a manual differential will be performed. Yeni Gran Abs 0.12(H) 0.00 - 0.05 x10(3)/mc L CERNER MILLENNIUM Blood specimen (specimen) 12/27/2012 3:50 PM EDT 12/27/2012 4:04 PM EDT Gricelda Tolbert MD HEMATOLOGY ORDERABLE S Performing Organization Address City/[facility]/ZIP Co de Phone Number CERDAKSHA HARTMANENNIUM * Antibody screen (12/27/2012 3:50 PM EDT) Ab Screen Interp Negative CERNER MINNIEENNIUM Expires at [id number] on: [id number] CERNER MILLENNIUM Blood specimen (specimen) 12/27/2012 3:50 PM EDT 12/27/2012 4:05 PM EDT Narrative Resulting Agency Comment Spec In Lab Gricelda Tolbert MD BLOOD BANK LAB ORDER JAMES Performing Organization Address City/[facility]/ZIP Co de Phone Number DANETTE PRIDEIUM * ABO/Rh Typing (12/27/2012 3:50 PM EDT) ABORH Type A Pos CERNER MILLENNIUM Blood specimen (specimen) 12/27/2012 3:50 PM EDT 12/27/2012 4:05 PM EDT Narrative Resulting Agency Comment Spec In Lab Gricelda Tolbert MD BLOOD BANK LAB ORDER JAMES Performing Organization Address City/[facility] Co de Phone Number DANETTE VALENCIA * (ABNORMAL) APTT (12/27/2012 3:50 PM EDT) PTT 38(H) 25 - 35 sec CERNER MILLENNIUM Comment: Recommended therapeutic PTT range for full dose unfractionated heparin is 80-114 seconds. Blood specimen (specimen) 12/27/2012 3:50 PM EDT 12/27/2012 4:04 PM EDT Narrative Resulting Agency Comment Spec In Lab Gricelda Tolbert MD HEMATOLOGY ORDERABLE S Performing Organization Address [facility] de Phone Number DANETTE PRIDEIUM * (ABNORMAL) Prothrombin Time (12/27/2012 3:50 PM EDT) PT 16.3(H) 12.0 - 15.0 sec [facility] MILLENNIUM Comment: [facility] Transfusion Committee Guidelines: INR less than 2.0, PTT less than OR equal to 43.5 seconds, or Fibrinogen greater than or equal to 100 mg/dl indicate adequate procoagulant activity for hemostasis in patients without underlying bleeding disorders. INR 1.3(H) 0.9 - 1.1 [facility] [employer]ENNIUM Blood specimen (specimen) 12/27/2012 3:50 PM EDT 12/27/2012 4:04 PM EDT Narrative Resulting Agency Comment Spec In Lab Gricelda Tolbert MD HEMATOLOGY ORDERABLE S Performing Organization Address [facility] de Phone Number [facility] PRIDEIUM * Glucose, random (12/27/2012 3:50 PM EDT) Glucose Lvl 91 60 - 199 mg/dL [facility] [employer]NIUM Comment:Diabetes: >=200 mg/d L plus symptoms Blood specimen (specimen) 12/27/2012 3:50 PM EDT 12/27/2012 4:04 PM EDT Narrative Resulting Agency Comment Spec In Lab Gricelda Tolbert MD CHEMISTRY ORDERABLES Performing Organization Address [facility]/ZIP Co de Phone Number DANETTE VALENCIA * Creatinine (12/27/2012 3:50 PM EDT) [employer] Signature Creatinine 1.22 0.80 - 1.50 mg/dL DANETTE VALENCIA Comment: Please note that the pediatric reference intervals supplied above were not validated at [facility]. Results from pediatric patients should be interpreted in conjunction to the patient's age, height and muscle mass. Estimated GFR 60 >=60 DANETTE VALENCIA Comment: The National Kidney Disease Education Program (NKDEP) has recommended all laboratories report estimated GFR (eGFR) along with plasma creatinine measurements to assist you with recognition of early kidney disease. Caveats: ??Plasma creatinine should be at steady-state (unchanged within the past week). For patients multiply eGFR by 1.2. The MDRD equation was developed using patients between the ages of 18 and 70 years. ?? The MDRD equation has not been validated for patients < 18 years of age and should not be used to assess renal function in the pediatric population. ??The MDRD eGFR equation will also overestimate the true GFR of patients above the age of 70. ??This overestimation is variable but increases with age. At present, NKDEP does NOT recommend using the MDRD equation for drug dosing purposes and pharmacists should continue to use their current dosing methods. In addition, numerical eGFR values greater than 60 ml/min/1.73 square meters should be treated as > 60, and not an exact number due to greater inaccuracies at these higher values. Per NKDEP, they classify normal renal function as any GFR >60ml/min/1.73 square meters; chronic kidney disease when GFR <60, and renal failure when GFR <15. ??This calculation may not be valid for patients with atypical muscle mass (very lean or obese), acute renal failure, and in patients with diabetic kidney disease. References: http://nkdep.nih.gov/resources/NKDEP_Suggestn4Labs_0606_508.pdf http://www.kidney.org/professionals/kls/pdf/faq_gfr.pdf Jorje Rodriguez, Rebecca NA, Dariana AK, Darren TS, Darci AD, Halle HAMILTON. Relative performance of the MDRD and CKD-EPI equations for estimating glomerular filtration rate among patients with varied clinical presentations. Clin J Am Soc Nephrol;6:1963-72. Blood specimen (specimen) 12/27/2012 3:50 PM EDT 12/27/2012 4:04 PM EDT Narrative Resulting Agency Comment Spec In Lab Gricelda Tolbert MD CHEMISTRY ORDERABLES Performing Organization Address [facility] de Phone Number CERNER MILLENNIUM * BUN (12/27/2012 3:50 PM EDT) BUN 20 10 - 20 mg/dL CERNER MILLENNIUM Blood specimen (specimen) 12/27/2012 3:50 PM EDT 12/27/2012 4:04 PM EDT Narrative Resulting Agency Comment Spec In Lab Gricelda Tolbert MD CHEMISTRY ORDERABLES Performing Organization Address [facility] de Phone Number CERNER MILLENNIUM * Electrolytes panel (12/27/2012 3:50 PM EDT) Sodium 141 135 - 145 mmol/L CERNER MILLENNIUM Potassium 3.8 3.5 - 5.0 mmol/L CERNER MILLENNIUM Comment: Please note: ??Patients with WBC >100,000 may have falsely elevated Potassium levels. ??For accurate Potassium quantification in these patients send serum separator tube (gold top) for subsequent determinations. ??Contact the Clinical Chemistry Laboratory if there are any questions. Chloride 105 98 - 107 mmol/L CERNER MILLENNIUM CO2 26 22 - 31 mmol/L CERNER MILLENNIUM Anion Gap 10 5 - 15 mmol/L CERNER MILLENNIUM Blood specimen (specimen) 12/27/2012 3:50 PM EDT 12/27/2012 4:04 PM EDT Narrative Resulting Agency Comment Spec In Lab Gricelda Tolbert MD CHEMISTRY ORDERABLES Performing Organization Address [facility] Co de Phone Number CERNER MILLENNIUM * (ABNORMAL) CBC (with Diff) (12/27/2012 3:50 PM EDT) WBC 11.2(H) 4.0 - 10.0 x10(3)/mcL CERNER MILLENNIUM RBC 3.03(L) 4.63 - 6.08 x10(6)/mcL CERNER MILLENNIUM Hemoglobin 8.2(L) 13.7 - 17.5 gm/dL CERNER MILLENNIUM Hematocrit 27.0(L) 40.0 - 51.0 % CERNER MILLENNIUM MCV 89.1 79.0 - 92.0 fL CERNER MILLENNIUM MCH 27.1 25.6 - 32.2 pg CERNER MILLENNIUM MCHC 30.4(L) 32.0 - 36.5 gm/dL CERNER MILLENNIUM Platelets 542(H) 145 - 370 x10(3)/mcL CERNER MILLENNIUM RDWSD 62.1(H) 35.0 - 46.0 fL CERNER MILLENNIUM RDWCV 19.2(H) 10.9 - 14.4 % CERNER MILLENNIUM MPV 8.9(L) 9.0 - 12.0 fL CERNER MILLENNIUM Blood specimen (specimen) 12/27/2012 3:50 PM EDT 12/27/2012 4:04 PM EDT Narrative Resulting Agency Comment Spec In Lab Gricelda Tolbert MD HEMATOLOGY ORDERABLE S DANETTE VALENCIA documented in this encounter Visit Diagnoses Not on filedocumented in this encounter Administered Medications Inactive Administered Medications - up to 3 most recent administrations Medication Order MAR Action Action Date Dose Rate Site aspirin EC tablet 81 mg 81 mg, Oral, DAILY, First dose on Tue12/28/12 at 0900, Until Discontinued, Routine Given 12/28/2012 9:00 AM EDT 81 mg ceFAZolin (ANCEF) 2g in dextrose 5% 50 mL 2 g, Intravenous, EVERY 8 HOURS, First dose on Tue12/27/12 at 2200, Until Discontinued, Indication for (Active or Suspected): for Skin/Skin Structure Given 12/28/2012 2:00 PM EDT 2 g Given 12/28/2012 6:00 AM EDT 2 g Given 12/27/2012 10:00 PM EDT 2 g esomeprazole (NEXIUM) capsule 40 mg 40 mg, Oral, DAILY, First dose on Tue12/28/12 at 0900, Until Discontinued, Therapeutic Interchange for omeprazole (PRILOSEC), Routine Given 12/28/2012 9:00 AM EDT 40 mg ferrous gluconate tablet 325 mg 325 mg, Oral, DAILY WITH BREAKFAST, First dose on Tue12/28/12 at 0800, Until Discontinued, OK to use on formulary equivalent Given 12/28/2012 8:00 AM EDT 325 mg fluticasone-salmeterol (ADVAIR) 100-50 mcg/dose diskus inhaler 1 puff 1 puff, Inhalation, EVERY 12 HOURS, First dose on Tue12/27/12 at 2100, Until Discontinued, Rinse mouth after administration. OK to use on formulary equivalent, Routine Given 12/28/2012 9:00 AM EDT 1 puff Given 12/27/2012 9:00 PM EDT 1 puff HYDROmorphone (DILAUDID) injection 0.2-0.4 mg 0.2-0.4 mg, Intravenous, EVERY 5 MIN PRN, Starting on Tue12/27/12 at 1820, Until Tue12/27/12 at 2005, Pain, For moderate pain give: 0.2 mg every 5 minute prn For severe pain give: 0.4 mg every 5 minutes prn Maximum dose: 4 mg per hour Hold for respiratory rate less than 10 per minute., PACU Recovery, Routine Given 12/27/2012 6:43 PM EDT 0.4 mg Given 12/27/2012 6:25 PM EDT 0.4 mg Given 12/27/2012 6:15 PM EDT 0.4 mg levothyroxine (SYNTHROID) tablet 50 mcg 50 mcg, Oral, DAILY, First dose on Tue12/28/12 at 0600, Until Discontinued, Routine Given 12/28/2012 6:00 AM EDT 50 mcg montelukast (SINGULAIR) tablet 10 mg 10 mg, Oral, NIGHTLY, First dose on Tue12/27/12 at 2100, Until Discontinued, Routine Given 12/27/2012 9:00 PM EDT 10 mg OXYcodone (ROXICODONE) immediate release tablet 5 mg 5 mg, Oral, EVERY 4 HOURS PRN, Starting on Tue12/27/12 at 2054, Until Tue12/28/12 at 1855, Pain, Routine Given 12/28/2012 4:45 PM EDT 5 mg Given 12/28/2012 1:10 PM EDT 5 mg Given 12/28/2012 5:23 AM EDT 5 mg sodium chloride 0.9 % flush 5 mL 5 mL, Intravenous, EVERY 12 HOURS, First dose on Tue12/27/12 at 2100, Until Discontinued Given 12/28/2012 9:00 AM EDT 5 mLs Given 12/27/2012 9:00 PM EDT 5 mLs sodium chloride 0.9% infusion 1,000 mL, at 100 mL/hr, Intravenous, CONTINUOUS, Starting on Tue12/27/12 at 1900, Until Tue12/28/12 at 1230 New Bag 12/28/2012 6:39 AM EDT 1,000 mLs 100 m L/hr New Bag 12/27/2012 7:00 PM EDT 1,000 mLs 100 mL/hr documented in this encounter Active and Recently Administered Medications Times are shown in EDT. Scheduled Medication Order 12/26/2012 12/27/2012 12/28/2012 aspirin EC tablet 81 mg (CANCELED) 81 mg, Oral, DAILY, First dose on Tue12/28/12 at 0900, Until Discontinued, Routine 0900 (Given - Provid er: Jessica Jaramillo RN) ceFAZolin (ANCEF) 2g in dextrose 5% 50 mL (CANCELED) 2 g, Intravenous, EVERY 8 HOURS, First dose on Tue12/27/12 at 2200, Until Discontinued, Indication for (Active or Suspected): for Skin/Skin Structure 2200 (Given - Provider: Heladio Ovalle RN) 0600 (Given - Provider: Heladio Ovalle RN)1400 (Given - Provider: Jessica Jaramillo RN) esomeprazole (NEXIUM) capsule 40 mg (CANCELED) 40 mg, Oral, DAILY, First dose on Tue12/28/12 at 0900, Until Discontinued, Therapeutic Interchange for omeprazole (PRILOSEC), Routine 0900 (Given - Provid er: Jessica Jaramillo RN) ferrous gluconate tablet 325 mg (CANCELED) 325 mg, Oral, DAILY WITH BREAKFAST, First dose on Tue12/28/12 at 0800, Until Discontinued, OK to use on formulary equivalent 0800 (Given - Provid er: Jessica Jaramillo RN) fluticasone-salmeterol (ADVAIR) 100-50 mcg/dose diskus inhaler 1 puff (CANCELED) 1 puff, Inhalation, EVERY 12 HOURS, First dose on Tue12/27/12 at 2100, Until Discontinued, Rinse mouth after administration. OK to use on formulary equivalent, Routine 2100 (Given - Provider: Heladio Ovalle RN) 0900 (Given - Provider: Jessica Jaramillo, LANIE) levothyroxine (SYNTHROID) tablet 50 mcg (CANCELED) 50 mcg, Oral, DAILY, First dose on Tue12/28/12 at 0600, Until Discontinued, Routine 0600 (Given - Provid er: Heladio Ovalle RN) montelukast (SINGULAIR) tablet 10 mg (CANCELED) 10 mg, Oral, NIGHTLY, First dose on Tue12/27/12 at 2100, Until Discontinued, Routine 2100 (Given - Provider: Heladio Ovalle RN) sodium chloride 0.9 % flush 5 mL (CANCELED) 5 mL, Intravenous, EVERY 12 HOURS, First dose on Tue12/27/12 at 2100, Until Discontinued 2100 (Given - Provider: Heladio Ovalle RN) 0900 (Given - Provider: Jessica Jaramillo, LANIE) Continuous Medication Order 12/26/2012 12/27/2012 12/28/2012 sodium chloride 0.9% infusion (CANCELED) 1,000 mL, at 100 mL/hr, Intravenous, CONTINUOUS, Starting on Tue12/27/12 at 1900, Until Tue12/28/12 at 1230 1900 (New Bag - Provider: Juan Luis Finley RN) 0639 (New Bag - Provider: Heladio Ovalle RN) PRN Medication Order 12/26/2012 12/27/2012 12/28/2012 HYDROmorphone (DILAUDID) injection 0.2-0.4 mg (CANCELED) 0.2-0.4 mg, Intravenous, EVERY 5 MIN PRN, Starting on Tue12/27/12 at 1820, Until Tue12/27/12 at 2005, Pain, For moderate pain give: 0.2 mg every 5 minute prn For severe pain give: 0.4 mg every 5 minutes prn Maximum dose: 4 mg per hour Hold for respiratory rate less than 10 per minute., PACU Recovery, Routine 1814 (Given - Provider: Nila Terrazas, RN)182 (Given - Provider: Nila Terrazas, RN)184 (Given - Provider: Nila Terrazas, LANIE) OXYcodone (ROXICODONE) immediate release tablet 5 mg (CANCELED) 5 mg, Oral, EVERY 4 HOURS PRN, Starting on 12/27/12 at 2054, Until Emma 12/28/12 at 1855, Pain, Routine 2115 (Given - Provider: Heladio Ovalle, RN) 0523 (Given - Provider: Heladio Ovalle RN)1310 (Given - Provider: Jessica Jaramillo, RN)1645 (Given - Provider: Jessica Jaramillo, RN - Comment: per for d/c to home) documented in this encounter Care Teams Account Manager Education Relationship Specialty Start Date End Date Cameron Pineda MD [address] [place] [address] PCP - General 10/26/12 documented as of this encounter
--- OUTSIDE RECORDS SUMMARY | 2024-04-20 15:08 | XMS_ITS | Encounter Summary ---
Author Organization [facility] [place] [address] Care Team Providers Care Gas Appliance Mechanic Name Role Phone Farnaz Pineda MD Primary Care Provider [phone] Reason for Visit * Reason Comments Urinary Retention Encounter Details Date Type Department Care Team (Late st Contact Info) Description 01/18/2013 10:30 AM EDT [place] [phone] Ross Madrid MD [facility] [place] [address] Hematuria (Primary Dx) Discharge Disposition: Home Social [...] Sign Reading Time Taken Comments Blood Pressure 133/86 01/18/2013 10:32 AM EDT Pulse 86 01/18/2013 10:32 AM EDT Temperature - - Respiratory Rate 20 01/18/2013 10:32 AM EDT Oxygen Saturation - - Inhaled Oxygen Concentration - - Weight 97.5 kg (215 lb) 01/18/2013 10:32 AM EDT Height 172.7 cm (5' 8) 01/18/2013 10:32 AM EDT Body Mass Index 32.69 01/18/2013 10:32 AM EDT documented in this encounter Progress Notes * Eddie Proctor - 01/18/2013 10:50 AM EDT Pt called earlier because he had passed 1/4 cup of blood clot and has been unable to void for the past 8 hours. No fever/rigors, feels he has a full bladder. Pt uncomfortable Ab soft, bladder distended Prepped and draped in usual fashion, urojet instilled, irrigated large volume >200cc of clot from bladder, 24F 3-way womack inserted with 15cc water in balloon, CBI started Will observe in clinic, if needs continuing CBI will admit for observation documented in this encounter Plan of Treatment Not on file documented as of this encounter Visit Diagnoses Diagnosis Hematuria- Primary Hematuria, unspecified documented in this encounter Care Teams Gas Appliance Mechanic Relationship Specialty Start Date End Date Farnaz Pineda MD [address] [place] [address] PCP - General 10/26/12 documented as of this encounter
--- OUTSIDE RECORDS SUMMARY | 2024-04-20 15:08 | XMS_ITS | Encounter Summary ---
Author Organization [facility] [place] [address] Care Team Providers Care Motel Operator Name Role Phone Farnaz Pineda MD Primary Care Provider [phone] Encounter Details Date Type Department Care Team (Late st Contact Info) Description 12/08/2012 2:30 PM EST Clinical Support [facility] [place] [address] Social History Tobacco Use Types Packs/Day Years Used Date Smoking Tobacco: Former Cigarettes Q uit: 11/02/1986 Alcohol Use Standard Drinks/Week Comments Yes 0 [...] on filedocumented in this encounter Care Teams Motel Operator Relationship Specialty Start Date End Date Farnaz Pineda MD [address] [place] [address] PCP - General 10/26/12 documented as of this encounter
--- OUTSIDE RECORDS SUMMARY | 2024-04-20 15:08 | XMS_ITS | Encounter Summary ---
Author Organization [facility] [place] [address] Care Team Providers Care Staff Weapons Officer Name Role Phone Farnaz Pineda MD Primary Care Provider [phone] Encounter Details Date Type Department Care Team (Late st Contact Info) Description 12/28/2012 9:30 AM EDT Office Visit [place] [phone] [place]ie [place] Social History Tobacco Use Types Packs/Day Years [...] on filedocumented in this encounter Care Teams Staff Weapons Officer Relationship Specialty Start Date End Date Farnaz Pineda MD [address] [place] [address] PCP - General 10/26/12 documented as of this encounter
--- OUTSIDE RECORDS SUMMARY | 2024-04-20 15:08 | XMS_ITS | Encounter Summary ---
Author Organization [facility] [place] [address] Care Team Providers Care Facilities Engineer Name Role Phone Farnaz Pineda MD Primary Care Provider [phone] Encounter Details Date Type Department Care Team (Latest Contact Info) Description 12/08/2012 12:38 PM EST - 12/08/2012 11:59 PM EST Hospital [place] [address] Prostate cancer Social History Tobacco Use Types [...] Notes * Miscellaneous - Provider, Scanning - 12/13/2012 9:48 AM EST documented in this encounter Plan of Treatment Not on file documented as of this encounter Procedures Procedure Name Priority Date/Time Associated Diagnosis Comments CT PELVIS SOFT TISSUE (GI MANAGER OF DEVELOPMENT) WWO CONTRAST STAT 12/08/2012 3:02 PM EST documented in this encounter Results * CT pelvis with/WO contrast (12/08/2012 3:02 PM EST) Anatomical Region Laterality Modality Pelvis Computed Tomogra phy 12/08/2012 3:02 PM EST Narrative 12/08/2012 3:[address] Pelvis Without and With Contrast Clinical History s/p radical prostatectomy ?? r/o lymphocele vs pelvic hematoma Comparison None Technique Precontrast followed by post intravenously enhanced (110 mL Omnipaque 350) CT of the pelvis. ??Portal venous phase, approximate 10 minutes postcontrast delayed images from a cystogram phase obtained, then images were obtained post release of the Diallo catheter and a postvoid phase. Findings Postprostatectomy. An approximate 5.1 x 7.5 cm focus of mixed increased attenuation is seen along the left pelvic sidewall, which does not enhance on the postcontrast images. It is compatible with a pelvic hematoma. ??A 4.0 cm nonenhancing low attenuation fluid collection is seen anteriorly in the left hemipelvis, likely a small lymphocele. ??The bladder is compressed and displaced slightly to the right by the left pelvic wall hematoma. ??A Diallo catheter balloon is seen within the bladder. A small curved collection of extra vesicular contrast material is seen abutting the UG diaphragm in the midline in position posterior to the bladder and slightly extending to the right (series 2, images 35, 36; series 8, images 36, 37). Scattered foci of air are seen in the soft tissues, compatible with postsurgical change. Impression ? 1. Large left pelvic sidewall hematoma. ? 2. Small left anterior pelvic fluid collection, likely a lymphocele. ? 3. Small curvilinear focus of extra vesicular contrast seen adjacent to the posterior bladder and to the right, compatible with focal small bladder perforation. Procedure Note Jarvis Barton MD - 12/08/[address] Pelvis Without and With Contrast Clinical History s/p radical prostatectomy r/o lymphocele vs pelvic hematoma Comparison None Technique Precontrast followed by post intravenously enhanced (110 mL Omnipaque 350)CT of the pelvis. Portal venous phase, approximate 10 minutes postcontrast delayed images from a cystogram phase obtained, then images were obtainedpost release of the Diallo catheter and a postvoid phase. Findings Postprostatectomy. An approximate 5.1 x 7.5 cm focus of mixed increased attenuation is seen along the left pelvic sidewall, which does not enhanceon the postcontrast images. It is compatible with a pelvic hematoma. A 4.0cm nonenhancing low attenuation fluid collection is seen anteriorly in theleft hemipelvis, likely a small lymphocele. The bladder is compressed anddisplaced slightly to the right by the left pelvic wall hematoma. A Diallo catheter balloon is seen within the bladder. A small curved collection of extra vesicular contrast material is seenabutting the UG diaphragm in the midline in position posterior to the bladder and slightly extending to the right (series 2, images 35, 36; series 8, [id number], 37). Scattered foci of air are seen in the soft tissues, compatible with postsurgical change. Impression 1. Large left pelvic sidewall hematoma. 2. Small left anterior pelvic fluid collection, likely alymphocele. 3. Small curvilinear focus of extra vesicular contrast seen adjacentto the posterior bladder and to the right, compatible with focal smallbladder perforation. Ross Madrid MD IMG CT ORDERABLES documented in this encounter Visit Diagnoses Diagnosis Prostate cancer Malignant neoplasm of prostate documented in this encounter Administered Medications Inactive Administered Medications - up to 3 most recent administrations Medication Order MAR Action Action Date Dose Rate Site iohexol (OMNIPAQUE) 350 mg iodine/mL injection 38,500 mg 38,500 mg (110 mL), Intravenous, ONCE PRN, 1 dose, Starting on Tue12/08/12 at 1502, Until Tue12/08/12 at 1452, Per Protocol, Routine Given 12/08/2012 2:52 PM EST 38,500 mg documented in this encounter Care Teams Facilities Engineer Relationship Specialty Start Date End Date Farnaz Pineda MD [address] [place] [address] PCP - General 10/26/12 documented as of this encounter
--- OUTSIDE RECORDS SUMMARY | 2024-04-20 15:08 | XMS_ITS | Encounter Summary ---
Author Organization [facility] [place] [address] Care Team Providers Care Color Separation Photographer Name Role Phone Farnaz Pineda MD Primary Care Provider [phone] Encounter Details Date Type Department Care Team (Late st Contact Info) Description 01/04/2013 10:00 AM EDT Office Visit [place] [phone] [place]rona [place], [place] Social History Tobacco Use Types Packs/Day [...] on filedocumented in this encounter Care Teams Color Separation Photographer Relationship Specialty Start Date End Date Farnaz Pineda MD [address] [place] [address] PCP - General 10/26/12 documented as of this encounter
--- OUTSIDE RECORDS SUMMARY | 2024-04-20 15:08 | XMS_ITS | Encounter Summary ---
Author Organization [facility] [place] [address] Care Team Providers Care Courier Delivery Driver Name Role Phone Farnaz Pineda MD Primary Care Provider [phone] Encounter Details Date Type Department Care Team (Late st Contact Info) Description 12/08/2012 11:00 AM EST [place] [phone] Ross Madrid MD [facility] [place] [address] Prostate cancer (Primary Dx) Discharge Disposition: Home [...] Sign Reading Time Taken Comments Blood Pressure 116/69 12/08/2012 11:43 AM EST Pulse 90 12/08/2012 11:43 AM EST Temperature - - Respiratory Rate 18 12/08/2012 11:43 AM EST Oxygen Saturation - - Inhaled Oxygen Concentration - - Weight 97.5 kg (215 lb) 12/08/2012 11:43 AM EST Height 172.7 cm (5' 8) 12/08/2012 11:43 AM EST Body Mass Index 32.69 12/08/2012 11:43 AM EST documented in this encounter Progress Notes * Ross Madrid MD - 12/10/2012 10:05 AM EST Mr. Rodgers is ~2.5 weeks s/p RALRP/PLND for high risk prostate cancer. His surgery was uncomplicated. 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 His urine was clear and hgb stable prior to discharge. He had some occlusion of the catheter during the first week postop, thus had a cystogram at day 8 that revealed a small anastamotic leak. The catheter was left in for 10more days and he presents for repeat cystogram. Overall he has felt well with the catheter draining. He does note that his who is a health care provider deflated the balloon and adjusted the catheter because it appeared to have slipped partially out of his urethra. However, it has been draining continuously without new occlusion during this time. On cystogram, he is noted to have some deviation and extrinsic compression of the bladder to the right. There is evidence of a persistent small bladder leak, with the catheter balloon lodged at the anastamosis. We obtained a CT pelvic today thatshowed a moderate size left pelvic hematoma. A urogram showed intact drainage of the orifices to the bladder. A small and likely insignificant lymphocele was also noted. Review of systems as above. Feels well. No abdominal or flank pain, shortness of breath, +BM. On exam, his abdomen is S NTND, he has no CVAT, and he has some L>R lower extremity edema. He has no Remington's sign. His path was [id number] Shasha 3+4=7 with tertiary 5, negative margins. Reviewing his imaging from today, we discussed options of continued catheter drainage with or without adjustment of the catheter, vs catheter removal. Based on the womack balloon position on the anastamosis, and the small size of the leak, I recommended that we remove the catheter as it is likely causing more harm than good. We did a fill and void and he was able to void and empty adequately. He was taught kegel exercises in detail. I counseled him to alert me if he develops difficulty urinating, abdominal or flank pain, fever or chills, or shortness of breath. He was given 500mg levaquin po for his procedures to day, and an additional 2 day course. We will be in touch next week to evaluate h ow he is doing. If he has no issues, we will see him back in 3 months with a PSA. He will continue with his anticoagulation and routine INR checks. His questions were answered in detail. 16 of 17 min spent in counseling and coordination of care documented in this encounter Plan of Treatment Scheduled Orders Name Type Priority Associated Diagnoses Orde r Schedule Prothrombin Time Lab STAT Prostate cancer Expected: 12/08/2012 (Approximate), Expires: 12/08/2013 documented as of this encounter Procedures Procedure Name Priority Date/Time Associated Diagnosis Comments DIFFERENTIAL, AUTOMATED Routine 12/08/2012 4:22 PM EST PROTHROMBIN TIME Routine 12/08/2012 4:22 PM EST Prostate cancer CBC (WITH DIFF) Routine 12/08/2012 4:22 PM EST Prostate cancer documented in this encounter Results * (ABNORMAL) Differential, Automated (12/08/2012 4:22 PM EST) Neutrophils % 85.2(H) 34.0 - 71.0 % CERNER MILLENNIUM Neutr Abs (ANC) 14.57(H) 1.50 - 6.30 x10(3)/mc L CERNER MILLENNIUM Lymphocytes % 4.3(L) 19.0 - 53.0 % CERNER MILLENNIUM Lymphocytes Abs 0.7(L) 1.0 - 3.6 x10(3)/mc L CERNER MILLENNIUM Monocytes % 6.9 4.0 - 13.0 % CERNER MILLENNIUM Monocyte Abs 1.2(H) 0.2 - 1.0 x10(3)/mc L CERNER MILLENNIUM Eosinophils % 3.2 0.0 - 7.0 % CERNER MILLENNIUM Eosinophils Abs 0.5 0.0 - 0.5 x10(3)/mc L CERNER MILLENNIUM Basophils % 0.3 0.0 - 2.0 % CERNER MILLENNIUM Basophils Abs 0.0 0.0 - 0.2 x10(3)/mc L CERNER MILLENNIUM Immature Gran % 0.10 0.00 - 0.66 % CERNER MILLENNIUM Comment: Immature granulocytes(IG's)percentage and absolute count will include metamyelocytes, myelocytes, and promyelocytes. Blood smears from CBCs yielding IG's will be scanned manually for concordance. If this scan disagrees with the automated IG or if promyelocytes are noted, a manual differential will be performed. Yeni Gran Abs 0.02 0.00 - 0.05 x10(3)/mc L CERNER MILLENNIUM Blood specimen (specimen) 12/08/2012 4:22 PM EST 12/08/2012 4:29 PM EST Ross Madrid MD HEMATOLOGY ORDERABLE S CERNER MILLENNIUM * (ABNORMAL) CBC (with Diff) (12/08/2012 4:22 PM EST) WBC 17.1(H) 4.0 - 10.0 x10(3)/mcL CERNER MILLENNIUM RBC 3.44(L) 4.63 - 6.08 x10(6)/mcL CERNER MILLENNIUM Hemoglobin 10.2(L) 13.7 - 17.5 gm/dL CERNER MILLENNIUM Hematocrit 32.7(L) 40.0 - 51.0 % CERNER MILLENNIUM MCV 95.1(H) 79.0 - 92.0 fL CERNER MILLENNIUM MCH 29.7 25.6 - 32.2 pg CERNER MILLENNIUM MCHC 31.2(L) 32.0 - 36.5 gm/dL CERNER MILLENNIUM Platelets 448(H) 145 - 370 x10(3)/mcL CERNER MILLENNIUM RDWSD 58.0(H) 35.0 - 46.0 fL CERNER MILLENNIUM RDWCV 16.7(H) 10.9 - 14.4 % CERNER MILLENNIUM MPV 8.6(L) 9.0 - 12.0 fL CERNER MILLENNIUM Blood specimen (specimen) 12/08/2012 4:22 PM EST 12/08/2012 4:29 PM EST Narrative Resulting Agency Comment Spec In Lab Ross Madrid MD HEMATOLOGY ORDERABLE S Performing Organization Address City/[facility] Co de Phone Number DANETTE VALENCIA * (ABNORMAL) Prothrombin Time (12/08/2012 4:22 PM EST) PT 25.8(H) 12.0 - 15.0 sec CERNER MILLENNIUM Comment: [facility] Transfusion Committee Guidelines: INR less than 2.0, PTT less than OR equal to 43.5 seconds, or Fibrinogen greater than or equal to 100 mg/dl indicate adequate procoagulant activity for hemostasis in patients without underlying bleeding disorders. INR 2.3(H) 0.9 - 1.1 CERNER MILLENNIUM Blood specimen (specimen) 12/08/2012 4:22 PM EST 12/08/2012 4:29 PM EST Narrative Resulting Agency Comment Spec In Lab Ross Madrid MD HEMATOLOGY ORDERABLE S Performing Organization Address City/[facility] Co de Phone Number DANETTE VALENCIA documented in this encounter Visit Diagnoses Diagnosis Prostate cancer- Primary Malignant neoplasm of prostate documented in this encounter Administered Medications Inactive Administered Medications - up to 3 most recent administrations Medication Order MAR Action Action Date Dose Rate Site diatrizoate meglumine (HYPAQUE, CYSTOGRAFIN) urethral solution 100 mL 100 mL, Urethral, ONCE, 1 dose, On Tue12/08/12 at 1100, Routine Given 12/08/2012 11:00 AM EST 100 mLs documented in this encounter Care Teams Courier Delivery Driver Relationship Specialty Start Date End Date Farnaz Pineda MD [address] [place] [address] PCP - General 10/26/12 documented as of this encounter
--- OUTSIDE RECORDS SUMMARY | 2024-04-20 15:08 | XMS_ITS | Encounter Summary ---
Author Organization [place] [place] [address] Care Team Providers Care Brand Marketing Specialist Name Role Phone Cameron Patel MD Primary Care Provider [phone] Reason for Visit * Reason Comments Urinary Retention Hematuria Encounter Details Date Type Department Care Team (Latest Contact Info) Description 12/23/2012 1:24 PM EDT - 12/26/2012 3:48 PM EDT Hospital Encounter [address] [place] [address] Josemanuel Wynne MD [facility] [place] [address] Mesha Masters MD [facility] [place] [address] Urinary retention (Primary Dx); Hematuria Discharge Disposition: Home Social History Tobacco Use [...] Sign Reading Time Taken Comments Blood Pressure 115/74 12/26/2012 1:52 PM EDT Pulse 98 12/26/2012 1:52 PM EDT Temperature 36.9 ??C (98.4 ??F) 12/26/2012 1:17 PM ED T Respiratory Rate 20 12/26/2012 1:52 PM EDT Oxygen Saturation 98% 12/26/2012 1:52 PM EDT Inhaled Oxygen Concentration - - Weight 97.5 kg (215 lb) 12/23/2012 8:13 PM EDT Height 172.7 cm (5' 7.99) 12/23/2012 8:13 PM ED T Body Mass Index 32.7 12/23/2012 8:13 PM EDT documented in this encounter Discharge Instructions * Patient Instructions* Fabian Ribeiro - 12/26/2012 11:41 AM EDT Provider Instructions Discharge Instructions CALL YOUR PHYSICIAN IF: You have a fever greater than 101 degrees Farenheit within one month of your surgery. You have diarrhea or vomiting for >24 hours, or stop having bowel movements and passing flatus You have worsening pain, not controlled with your pain medication. You develop redness, swelling, or new drainage from your wound. -Your INR on was 1.6 on 12/25 . You may resume your normal coumdin regimen tomorrow and have your INR re-checked. Prescriptions*: -If you have been prescribed narcotic pain medications (such as Percocet, Vicodin, Oxycodone or Dilaudid) DO NOT use alcohol, drive, or operate heavy or complex machinery while taking these medications. Narcotic pain medications may cause constipation. Stool softeners, such as Colace; mild laxatives, such as Milk of Magnesia, Sennakot, or Ducolax tabs; or enemas may be used if needed and are onhy-weg-xuuuptg (OTC) medications available at most local pharmacies. Prunes or prune juice, taken daily, can also be helpful for constipation treatment or p revention and are available at most [employer]ets. Driving Restrictions*: - No driving if you [...] Wound Care: You can shower per usual routine. Comfort: Take your pain medication as needed and prescribed. Taper use of pain medication as pain lessens. Follow-up Appointments: A Follow-up appointment will be scheduled with Dr. Madrid at the [facility]rology Outpatient [facility] - in 1 week. You will recieve a letter in the mail and/or a phone call with information about this appointment. Please call clinic to confirm date and time of your appointment, or if you do not receive information about your appointment in a timely manner. Your surgeon may not be [employer], especially during the night or on weekends, so be ready to describe yourself and your surgery when you call. CC: Primary Care Physician: documented in this encounter Medications at Time [...] as of this encounter Progress Notes * Maritza Green RN - 12/26/2012 3:32 PM EDT Pt cleared for discharge by MD's. Discharge teaching reviewed with pt and his ; no questions atthis time. Peripheral IV's d/c per MD order; pressure dsg's applied. Pt medicated with PRN Vicodin per DEC. Pt d/c home with at 1545 via wheelchair. * Caterina Damon RN - 12/26/2012 2:21 PM EDT Pt tolerating diet with no complaint of nausea. Pt reports pain well controlled with ordered pain medications. Pt incontinent of urine - which has been his baseline since the initial surgery. Bladdervolume being monitored with prn bladder scans. Pt denies any bladder discomfort. Pt reports a soft,normal BM today at which time he urinated as well but urine was not collected for measurement or assessment. Pt ambulates independently with a steady gait. Pt's at bedside. * Angelica Valle RN - 12/25/2012 9:41 AM EDT Pt known to me from prior admission and was d/c without VNA services. His is in the health agencies in his area. He has had the womack in and clotting as on chronic anticoagulation with lovenox/coumadin, CBI infusing with pink return. Plan is for d/c CBI and removal of the womack today with monitoring of his output, spontaneous voiding, He has received Vicodin at home for pain control and unsure if he has any left. MD to write prescriptions for d/c medicitions and will fill locally. Has a plan for the bad weather for tomorrow and his will decide to come today or tomorrow depending on the weather. They will stay locally if needed at discharge. [facility] and coumadin dosing. Pleased with the care that he has received and the plan outlinedby today Home Health agrees with this plan. Denies need for VNA services and plans to return to work part-time . RN updated. Will continue to follow and assess and facilitate d/c as appropriate. ANGELICA VALLE RN12/25/2012 * Mesha Masters MD - 12/25/2012 8:07 AM EDT UROLOGY DAILY PROGRESS NOTE Sylvain Rodgers is a 62 y.o. male s/p RALRP/PLND on 11/20/12 whose post-op course has been complicated with prolonged catheterization for anastomotic leak, a pelvic hematoma, and most recently hematuria with clot retention. 24 hour interval events: -On CBI and urine is clearing Temp: [36.6 ??C (97.9 ??F)-37.7 ??C (99.9 ??F)] Heart Rate: [94-109] Resp: [18-20] BP: (108-130)/(65-76) SpO2: [98 %-100 %] NAD, A&O x 3 CV RRR Pulm CTA B/L, no increased work of breathing Abd soft, incision C/D/I Ext symmetric, no edema Urine light pink on moderate CBI rate Recent Labs Basename 12/25/12 0543 12/24/12 0233 12/23/12 1000 WBC 10.8* 8.8 12.1* HGB 8.0* 6.7* 7.6* PLATELET 383* 336 362 NA -- 138 133* CL -- 108* 100 CO2 -- 24 24 BUN -- 19 25* CREATININE -- 1.23 1.50 MAGNESIUM -- -- -- INR -- -- 2.2* PTT -- -- 54* A/P: 62 yo M s/p RALP and [facility] aortic valve with hematuria. Hemoglobin improved s/p transfusion. CBI running all night and urine improved to light pink. Plan on turning off CBI this morning and reassessing. Neuro: No issues, vicodin/B&O supp PRN CV: HDS, OK for subtherapeutic INR for several days to a week Pulm: No issues GI: Regular diet Prophylaxis: SCDs Heme: INR 2.2 12/23, holding coumadin ([facility] Marvin valve) Dispo: Allow INR to drift downward, following hematuria on CBI Attending: Passed a large old clot this afternoon just before rounds. Urine grossly clear otherwise. Hopefullyhe can be discharged tomorrow and his Coumadin restarted sometime later this week. MESHA MASTERS MD * Mesha Masters MD - 12/24/2012 10:03 AM EDT UROLOGY DAILY PROGRESS NOTE Sylvain Rodgers is a 62 y.o. male s/p RALRP/PLND on 11/20/12 whose post-op course has been complicated with prolonged catheterization for anastomotic leak, a pelvic hematoma, and most recently hematuria with clot retention. 24 hour interval events: -Admitted to Urology, placed on CBI -CT surgery contacted at [facility] regarding holding coumadin for now -OK for subtherapeutic INR for several days to a week -Hb drifted to 6.7 today -Urine clearing, though required irrigation for obstructed catheter last night Temp: [36.5 ??C (97.7 ??F)-37.1 ??C (98.8 ??F)] Heart Rate: [82-105] Resp: [16-20] BP: (96-120)/(61-77) SpO2: [98 %-100 %] NAD, A&O x 3 CV RRR Pulm Unlabored Abd soft, incision C/D/I Ext symmetric, no edema Urine light pink on moderate gtt CBI Recent Labs Basename 12/24/12 0233 12/23/12 1000 WBC 8.8 12.1* HGB 6.7* 7.6* PLATELET 336 362 NA 138 133* CL 108* 100 CO2 24 24 BUN 19 25* CREATININE 1.23 1.50 MAGNESIUM -- -- INR -- 2.2* PTT -- 54* A: 62 yo M s/p RALP and [facility] [place] aortic valve with hematuria. P: Neuro: No issues, vicodin/B&O supp PRN CV: HDS, Hb 6.7, plan to transfuse today Pulm: No issues GI: Regular diet Prophylaxis: SCDs Heme: INR 2.2 yesterday, holding coumadin ([facility] valve) Dispo: Allow INR to drift downward, following hematuria on CBI Urology Attending: I agree with Dr. Malagon's assessment and plan of care for Sylvain Rodgers after rounding and examining the patient with Dr. Malagon. MESHA MASTERS MD * Maddie Gallegos RN - 12/23/2012 10:39 PM EDT Pt Turned in bed for skin assessment and linen change and CBI stopped flowing, hand irrigated dark blood clots and restarted CBI, Vicodin tabs given for pain, will cont. To monitor. 0015 Pt. Needed hand irrigated for small blood clot, urine color was red, now with CBI restarted, urine color is clear Pt. Made NPO and he verbalized understanding of this 0700 pt had increased pain and urine leaking around catheter with no flow out on womack, hand irrigated, no clots noted but pt was relieved and CBI restarted, will cont to monitor * Caterina Damon RN - 12/23/2012 7:49 PM EDT Pt complained of bladder fullness and discomfort. CBI running but minimal return noted in catheter.Womack irrigated and a small amount of small clots were removed. CBI restarted and draining pink urine. Pt reports relief from discomfort. * Caterina Damon RN - 12/23/2012 5:11 PM EDT 16:00 Pt arrived to room 205 on stretcher after report received from LANIE Fox. Pt ambulated to bed, gait steady. Pt assessed. VSS as documented, HRR regular, lungs clear, +peripheral pulses x4, abdomen soft with +bowel sounds, lap sites on abdomen well into the healing process. 3-way womack in place draining clear urine with CBI running wide open. Moderate amount of drainage from around the tip of pt's penis. Brief placed under pt to absorb drainage. 17:00 CBI titrated to pink urine. Pt denies any bladder discomfort. Now no drainage noted from around penis. Will continue to monitor. documented in this encounter ED Notes * Joseph Mcallister RN - 12/23/2012 1:10 PM EDT Urology here at this time * Joseph Mcallister RN - 12/23/2012 1:00 PM EDT Fluid noted to be draining from the tip of his penis around the three way womack pt feeling very full in the bladder c/o increased pressure womack irrigated no clots noted tubing in place hooked back up re started through and through noted bloody fluid back up in the womack tubing urology paged will be down to evaluate * Vu Burrows RN - 12/23/2012 12:58 PM EDT TBI initiated after the urology resident manually cleared clots. * Joseph Mcallister RN - 12/23/2012 12:[address] Malagon here at this time MD updated * Joseph Mcallister RN - 12/23/2012 11:59 AM EDT Pt states now pressure feeling has decreased waiting for urology resident to call back * Joseph Mcallister RN - 12/23/2012 11:45 AM EDT Pt starting to feel lots pressure in bladder also states feels dizzy when he stands while laying down he denies dizziness noted CBC has decreased and pt aware additional order done Dr. Wynne aware urology paged at 1155 * Joseph Mcallister RN - 12/23/2012 11:30 AM EDT Urology phoned back will be down before noon time pt and family aware/ pt continues to be comfortable catheter appears to be draining continue to monitor no needs at this time * Joseph Mcallister RN - 12/23/2012 10:55 AM EDT Waiting for urology pt and family aware they have been notified womack appears to be draining more than when he arrived pt verbalizes feeling much better denies bladder fullness no needs at this time * Josemanuel Wynne MD - 12/23/2012 10:10 AM EDT ED ATTENDING BRIEF NOTE: This 62 y.o. male was transferred from an outside hospital emergency department to receive specialty care provided by the urology service for recurrent hematuria c/b urinary retention. I have reviewed the records from the outside hospital, the patients vitals as recorded in the electronic medical record, and ED nursing notes. Clinical Summary: 62 y.o. 1 month post op s/p prostatectomy for prostate CA with recurrent hematuria c/b retention requiring womack placement. Hematuria with clots continued and has resulted in need for irrigation and womack replacement x 2, most recently this am. On coumadin for aortic valve replacement. No complaints currently. Focused Exam: BP 114/69 Pulse 84 Temp(Src) 36.8 ??C (98.2 ??F) (Oral) Resp 16 Wt 100.699 kg (222 lb) SpO2 100% Gen: NAD Abd: Soft, NT/ND ED Directed Interventions: Urology consulted. I discussed the case with the resident/fellow of the accepting service. The patient was deemed to be stable and not require further involvement from the attending emergency physician at this time. The accepting service has assumed further care of the patient. Please see their notes for any further clinical details and subsequent course. Josemanuel Wynne MD 12/23/12 1013 * Joseph Mcallister RN - 12/23/2012 9:40 AM EDT Pt to room 19 present pt able to ambulate to ED Stretcher noted bloody urine draining in to womack bag pt denies feeling that his bladder is full pt denies fevers keeping his liquid intake up no nausea here to see urology Dr. Wynne in to see pt will page urology documented in this encounter Miscellaneous Notes * Discharge Summary - Fabian Ribeiro - 12/26/2012 11:26 AM EDT UROLOGY DEPARTMENT Inpatient - Discharge Summary Patient Name: Sylvain Rodgers Patient Age: 62 y.o. : 1950 Attending Physician: Mesha Masters MD Date of Admission: 12/23/2012 Date of Discharge: 12/26/2012 Diagnosis: Hematuria and clot retention HPI and Hospital Course: Sylvain Rodgers is a 62 y.o. male admitted on 12/23/2012 with a complicated post operative course since his RALRP/PLND on 11/20/12. He initially had a leak demonstrated on cystogram and necessitate longer catheter drainage. After 10 more days, he had a very small leak and the decision was made to pullthe catheter. He then returned a couple weeks later with clot retention on 12/21. He was irrigated out and clear after this and a catheter was left in place, but now returns with ongoing bleeding and occasional clot blockage of catheter. Patient was placed on CBI which was weaned off by 12/25/12 and womack catheter was removed. Passed a large old clot. Urine grossly clear otherwise. No other issues. His anemia was due to acute blood loss secondary to warfarin use and development of gross hematuria. He was transfused 1 unit for Hgb of 6.7 and associated sxms. Sylvain Rodgers's pain was adequately controlled, he was maintaining adequate oxygen saturation on room air, and was hemodynamically stable. He was tolerating a diet without abdominal complaints and voiding adequately. WBC and Hgb were stable. He was ambulating. Sylvain Rodgers was evaluated by the Urology Team and deemed medically stable for discharge. 12/25 INR 1.6 Updated Allergies/ADRs: No Known Allergies Operations/Major Procedures: Operations: * No surgery found * * No surgery found *: Pending Lab Data at Discharge: None. Condition at Discharge: Stable Important Studies and Lab Data: Labs: Recent Labs Basename 12/25/12 1002 12/25/12 0543 12/24/12 0233 WBC -- 10.8* 8.8 HGB -- 8.0* 6.7* HCT -- 25.6* 22.3* PLATELET -- 383* 336 PT 19.5* -- -- INR 1.6* -- -- PTT 42* -- -- Recent Labs Basename 12/24/12 0233 NA 138 K 3.9 CL 108* CO2 24 BUN 19 CREATININE 1.23 GLUCOSE 99 CALCIUM 7.9* MAGNESIUM -- PHOS -- Discharge Examination: Last value Range last 12 hrs Temperature Temp: 36.9 ??C (98.4 ??F) Temp: [36.9 ??C (98.4 ??F)] Heart Rate Heart Rate: 98 Heart Rate: [98-104] Blood Pressure BP: 115/74 mmHg BP: (88-128)/(65-81) Respiratory Rate Resp: 20 Resp: [17-20] SpO2 SpO2: 98 % SpO2: [97 %-99 %] I/Os: I/O last 3 completed shifts: In: 4557 [P.O.:2380; I.V.:2177] Out: 670 [Urine:670] I/O this shift: In: 1140 [P.O.:1140] Out: 125 [Urine:125] Physical Exam: NAD, A&O x 3 CV RRR Pulm CTA B/L, no increased work of breathing Abd soft, incision C/D/I Ext symmetric, no edema Urine light pink Discharge to: Home Discharge Conditions/Prognosis: Stable Discharge Medications: The following medications have been prescribed for you. If you notice any adverse reactions to your medications, please contact your primary care physician immediately or go tothe nearest Emergency Department. Current Discharge Medication List Continued medications with revised dosing Dose Details !! hydroCODone-acetaminophen (VICODIN) 1-2 tablets 1-2 tablets Take 1-2 tablets by mouth every 4 hours as needed for Pain. Qty: 40 tablet Refills: 0 !! - Potential duplicate medications found. Please discuss with provider. Continued medications, unchanged Dose Details ferrous gluconate 325 mg 325 mg Take 325 mg by mouth daily (with breakfast). !! hydroCODone-acetaminophen (VICODIN) 1-2 tablets 1-2 tablets Take 1-2 tablets by mouth every 4 hours as needed for Pain. Qty: 30 tablet Refills: 0 omeprazole (PRILOSEC) 20 mg 20 mg Take 20 mg by mouth daily. warfarin (COUMADIN) 7.5 mg 7.5 mg Take 7.5 mg by mouth daily. montelukast (SINGULAIR) 10 mg 10 mg Take 10 mg by mouth nightly. fluticasone-salmeterol (ADVAIR) 1 puff 1 puff Inhale 1 puff into the lungs every 12 hours. aspirin 81 mg 81 mg Take 81 mg by mouth daily. levothyroxine (SYNTHROID) 50 mcg 50 mcg Take 50 mcg by mouth daily. !! - Potential duplicate medications found. Please discuss with provider. Medications STOPPED Dose cephALEXin (KEFLEX) 500 mg 500 mg ENOXAPARIN SODIUM (LOVENOX SUBQ) 100 mg 100 mg Follow-up Care & Plans: For questions, orders or appointments related to your continuing care after your discharge, you or your provider should contact the physician that managed that part of your care. Urology - [phone] Scheduled Appointments: The following appointments have been scheduled on your behalf: Future Appointments and Orders Future Appointments: Provider: Department: Dept Phone: Center: 03/13/2013 10:30 AM Ross Madrid MD Urology [phone] [facility] Joint Appt Questionnaire [facility] Urology [phone] [facility] Outpatient Services/Studies: No discharge procedures on file. Instructions Given to Patient at Discharge: Provider Instructions Provider Instructions Discharge Instructions CALL YOUR PHYSICIAN IF: You have a fever greater than 101 degrees Farenheit within one month of your surgery. You have diarrhea or vomiting for >24 hours, or stop having bowel movements and passing flatus You have worsening pain, not controlled with your pain medication. You develop redness, swelling, or new drainage from your wound. -Your INR on was 1.6 on 12/25 . You may resume your normal coumdin regimen tomorrow and have your INR re-checked. Prescriptions*: -If you have been prescribed narcotic pain medications (such as Percocet, Vicodin, Oxycodone or Dilaudid) DO NOT use alcohol, drive, or operate heavy or complex machinery while taking these medications. Narcotic pain medications may cause constipation. Stool softeners, such as Colace; mild laxatives, such as Milk of Magnesia, Sennakot, or Ducolax tabs; or enemas may be used if needed and are akrb-stp-hljqcge (OTC) medications available at most local pharmacies. Prunes or prune juice, taken daily, can also be helpful for constipation treatment or p revention and are available at most [employer]. Driving Restrictions*: - No driving if you [...] Wound Care: You can shower per usual routine. Comfort: Take your pain medication as needed and prescribed. Taper use of pain medication as pain lessens. Follow-up Appointments: A Follow-up appointment will be scheduled with Dr. Madrid at the Urology Outpatient Clinic - in 1 week. You will receive a letter in the mail and/or a phone call with information about this appointment. Please call clinic to confirm date and time of your appointment, or if you do not receive information about your appointment in a timely manner. Your surgeon may not be [employer], especially during the night or on weekends, so be ready to describe yourself and your surgery when you call. CC: Primary Care Physician: Future Appointments and Orders Future Appointments: Provider: Department: Dept Phone: Center: 03/13/2013 10:30 AM Ross Madrid MD Urology [phone] [facility] Joint Appt Questionnaire [facility] Urology [phone] [facility] Call your doctor if: Please call your [...] was managed by the Urology Team at [facility]. If you have any questions or concerns, please feel free to contact us. Provider Contact Information: Urology Clinic: [facility] (after business hours): CC: CAMERON PATEL MD Signed: 12/26/2012 Urology Attending: Mr. Malone is now stable showing no signs of ongoing gross hematuria. His anemia was due to acute blood loss from his gross hematuria that was exacerbated by his prior Coumadinization for his artificial heart valve. He was transfused one unit of pRBC for a Hgb of 6.7, and symptoms of dizziness. Follow up will be arranged with Dr. Madrid his primary urologist. MESHA MASTERS MD * Plan of Care - Beltran Moses RN - 12/25/2012 10:02 PM EDT Problem: Pain, Acute (Adult, Obstetric) Goal: Acute Pain: Acceptable Pain Control/Comfort Level - Pain, Acute (Adult, Obstetric) Outcome: Therapy, goal partially met Pt reports pain to be well controled through use of PRN pain medication. Pt reports pain to be in hips and aggrivated with movement. Will continue to monitor. Problem: Urine Elimination, Impaired (Adult, Obstetric) Goal: Urine Elimination, Impaired: Effective Urinary Elimination Outcome: Therapy, goal partially met Pt reports incontinence. Pads in place and monitoring for clots. Bladder scan performed periodically. * Plan of Care - Bailey Neves RN - 12/25/2012 3:28 PM EDT Problem: Pain, Acute (Adult, Obstetric) Goal: Acute Pain: Acceptable Pain Control/Comfort Level - Pain, Acute (Adult, Obstetric) Pt taking Vicodin for pain relief, pt has mild discomfort to abdomen and left hip. Will continue toassess pain levels, see doc flowsheet for further assessment. Problem: Urine Elimination, Impaired (Adult, Obstetric) Goal: Urine Elimination, Impaired: Effective Urinary Elimination Pt's CBI discontinued this am. Urology team in to see pt this am. Womack discontinued at 1330. Pt passed a clot, old bloody color noted. Urology team aware. Pt with bloody urine noted after. Will continue to monitor pt's urine output and bladder scan as needed * Plan of Care - Beltran Moses RN - 12/25/2012 12:11 AM EDT Problem: Pain, Acute (Adult, Obstetric) Goal: Acute Pain: Acceptable Pain Control/Comfort Level - Pain, Acute (Adult, Obstetric) Outcome: Therapy, goal partially met Pt reports pain to be 0/10 and aware of PRN pain medication. Problem: Urine Elimination, Impaired (Adult, Obstetric) Goal: Urine Elimination, Impaired: Effective Urinary Elimination Outcome: Therapy, goal partially met Pt with womack in place - connected to CBI. Will continue to monitor. * Plan of Care - Caterina Funk RN - 12/24/2012 12:43 PM EDT Problem: Pain, Acute (Adult, Obstetric) Goal: Acute Pain: Acceptable Pain Control/Comfort Level - Pain, Acute (Adult, Obstetric) Outcome: Present (see interventions, notes) 1235: Pt has reported only some soreness at distal penis. Small amount serosanguinous drainage collected on pad applied to area, but no meatal drainage or erythema noted on penis. Pt has not ambulated yet as he is concerned that he will experience pain. He has verbalized that he will probably walk some when his wirfe arrives. Pt encouraged to take a Vicodin prn to allow him to mobilize more comfortably. Problem: Urine Elimination, Impaired (Adult, Obstetric) Goal: Urine Elimination, Impaired: Effective Urinary Elimination Outcome: Present (see interventions, notes) CBI has been continuous. At slow rate, some small clots noted but no blockage detected and no acutepain/discomfort. Urine/irrigant noted in womack tubing throughout the shift. Tubing secured to thighw/adhesive device. Pt receiving a unit of prbc's at this time. Will continue to monitor. Last value Range last 8 hrs Temperature Temp: 36.9 ??C (98.4 ??F) Temp: [36.7 ??C (98.1 ??F)-36.9 ??C (98.4 ??F)] Heart Rate Heart Rate: 94 Heart Rate: [94-95] Blood Pressure BP: 110/72 mmHg BP: (110-115)/(67-77) Respiratory Rate Resp: 20 Resp: [17-20] SpO2 SpO2: 99 % SpO2: [99 %-100 %] 1250: Pt tolerating transfusion witthout noted adverse effect, rate increased to 120cc/hr. Ate 100% lunch, womack patent with CBI continuous. 1745 Pt resting comfortably in bed, eating dinner. Has not been OOB today. at bedside. Pt has no c/o pain. CBI at slow rate last few hours with urine/irrigant return light pink and no clots noted ( reports seeing an occasional small one pass in the tubing). Last value Range last 8 hrs Temperature Temp: 37.5 ??C (99.5 ??F) Temp: [36.6 ??C (97.9 ??F)-37.5 ??C (99.5 ??F)] Heart Rate Heart Rate: 102 Heart Rate: [94-103] Blood Pressure BP: 109/66 mmHg BP: (109-113)/(65-72) Respiratory Rate Resp: 18 Resp: [18-20] SpO2 SpO2: 99 % SpO2: [98 %-100 %] 1840: Pt feeling flushed; face pink in cheeks, throat/upper chest also a bit red and warm to touch. No other areas of skin color change noted; no rash. Temp 37.7. Reported to Dr. Hale. Will continue to monitor. * Plan of Care - Maddie Gallegos RN - 12/23/2012 11:17 PM EDT Problem: Pain, Acute (Adult, Obstetric) Intervention: Acute Pain: Signs and Symptoms Pt has discomfort when his CBI stops infusing, he displays facial grimaces and guards his penis, heunderstands need for hand irrigation to evacuate clots (this was done in the past and he verbalizedunderstanding of procedure), after clot removal he accepted Vicodin for pain. * Miscellaneous - Provider, Tamanna - 12/23/2012 3:28 PM EDT * Consult Note - Mesha Masters MD - 12/23/2012 1:42 PM EDT UROLOGY CONSULTATION I have been asked to see the patient by Dr. Wynne for evaluation and recommendations of Hematuria. HPI: Mr. Rodgers is a 62 yo M with a complicated post operative course since his RALRP/PLND on 11/20/12. Heinitially had a leak demonstrated on cystogram and necessitate longer catheter drainage. After 10 more days, he had a very small leak and the decision was made to pull the catheter. He then returned a couple weeks later with clot retention on 12/21. He was irrigated out and clear after this and a catheter was left in place, but now returns with ongoing bleeding and occasional clot blockage of catheter. PMH: Active Ambulatory Problems Diagnosis Date Noted ??? S/P prostatectomy 11/21/2012 ??? Prostate cancer 11/21/2012 Resolved Ambulatory Problems Diagnosis Date Noted ??? No Resolved Ambulatory Problems No Additional Past Medical History Metal aortic valve x 10 years - done at [facility], on coumadin recent INR 2.8 PSH: As above. MEDS: No current facility-administered medications on file prior to encounter. Current Outpatient Prescriptions on File Prior to Encounter Medication Sig Dispense Refill ??? ferrous gluconate 325 mg (37.5 mg iron) tablet Take 325 mg by mouth daily (with breakfast). ??? hydroCODone-acetaminophen (VICODIN) 5-500 mg per tablet Take 1-2 tablets by mouth every 4 hoursas needed for Pain. 30 tablet 0 ??? DISCONTD: ENOXAPARIN SODIUM (LOVENOX SUBQ) Inject 100 mg subcutaneously 2 times daily. ??? omeprazole (PRILOSEC) 20 mg capsule Take [...] tablet Take 50 mcg by mouth daily. SOC HX: +tobacco FAM HX: non-contributory Review of Systems Negative other than HPI. EXAMINATION: Filed Vitals: 12/23/12 1145 BP: 111/66 Pulse: 84 Temp: 36.5 ??C (97.7 ??F) Resp: 16 NAD, discomfort with spasm Unlabored RRR S/NT/ND, healing surgical wound WWP, no edema Lab Results Component Value Date/Time WBC 12.1* 12/23/2012 10:00 AM HGB 7.6* 12/23/2012 10:00 AM PLATELET 362 12/23/2012 10:00 AM NA 133* 12/23/2012 10:00 AM K 3.9 12/23/2012 10:00 AM CL 100 12/23/2012 10:00 AM CO2 24 12/23/2012 10:00 AM BUN 25* 12/23/2012 10:00 AM CREATININE 1.50 12/23/2012 10:00 AM INR 2.2* 12/23/2012 10:00 AM PTT 54* 12/23/2012 10:00 AM Assessment: -Hematuria s/p RALP on 11/20 -On coumadin for mechanical aortic valve - Anemic Hb 7.6 Recommendations: -Admit to urology -CBI, titrate to pink -Hold off on transfusion for now, recheck CBC in AM -Discuss anticaogulation with CT surg, reversal if possible -Regular diet, NPO at midnight I have discussed the findings and plans with Dr Masters. Urology Attending: Agree with above plan of CBI, repeat HCT/Hgb in AM, holding Coumadin and allowing his INR to normalize. Most individuals with a seasoned mechanical heart valve can go without anticoagulation up to a week without a significant increase in having a thrombembolic event. He may need transfusion if anemia worsens and gross hematuria continues. MESHA MASTERS MD * Miscellaneous - Provider, Scanning - 12/23/2012 10:24 AM EDT * ED Triage - Italia Peña, RN - 12/23/2012 9:31 AM EDT Pt comes to us from [facility] ED where he went this morning @ 0330 c/o of an indwelling catheter blockedwith clots. As they were unable to flush the catheter they replaced it with another. Since then there has been minimal bloody return. Prostitectomy 11/20 @ [facility] for Ca. Bleeding increased last . He was eval in the ED @ [facility] at that time and Rx with Cipro. The next day he was eval for retention related to clots and a Catheter was placed. He has had recurrent problems since. On 12/21 he was eval here by Urology and the ABX was switched to Keflex. On Coumadin for Mechanical heart valve. Here to be eval by Urology documented in this encounter Plan of Treatment Not on file documented as of this encounter Procedures Procedure Name Priority Date/Time Associated Diagnosis Comments APTT Routine 12/25/2012 10:02 AM EDT PROTHROMBIN TIME Routine 12/25/2012 10:0 2 AM EDT DIFFERENTIAL, AUTOMATED Routine 12/25/2012 5:43 AM EDT CBC (WITH DIFF) Routine 12/25/2012 5:43 AM EDT PREPARE RBC Routine 12/24/2012 12:05 PM EDT DIFFERENTIAL, AUTOMATED Timed 12/24/2012 2:33 AM EDT CBC (WITH DIFF) Timed 12/24/2012 2:33 AM EDT BASIC METABOLIC PANEL (NON-FASTING) Timed 12/24/2012 2:33 AM EDT ABO/RH TYPING STAT 12/23/2012 11:50 AM EDT ANTIBODY SCREEN STAT 12/23/2012 11:50 AM EDT TYPE AND SCREEN ([facility]/CGP/CONSTANTINE) STAT 12/23/2012 11:50 AM EDT SCAN, PERIPHERAL BLOOD STAT 12/23/2012 10:00 AM EDT DIFFERENTIAL, AUTOMATED STAT 12/23/2012 10:00 AM EDT CREATININE Routine 12/23/2012 10:00 AM EDT APTT STAT 12/23/2012 10:00 AM EDT PROTHROMBIN TIME STAT 12/23/2012 10:0 0 AM EDT CBC (WITH DIFF) STAT 12/23/2012 10:00 AM EDT BUN STAT 12/23/2012 10:00 AM EDT GLUCOSE, RANDOM STAT 12/23/2012 10:00 AM EDT ELECTROLYTES PANEL STAT 12/23/2012 10 :00 AM EDT documented in this encounter Results * (ABNORMAL) APTT (12/25/2012 10:02 AM EDT) PTT 42(H) 25 - 35 sec D[facility] Comment: Recommended therapeutic PTT range for full dose unfractionated heparin is 80-114 seconds. Blood specimen (specimen) 12/25/2012 10:02 AM EDT 12/25/2012 10:09 AM EDT Narrative Resulting Agency Comment Spec In Lab Mesha Masters MD HEMATOLOGY ORDERABLE S [facility] [employer] * (ABNORMAL) Prothrombin Time (12/25/2012 10:02 AM EDT) PT 19.5(H) 12.0 - 15.0 sec CERNER MILLENNIUM Comment: [facility] Transfusion Committee Guidelines: INR less than 2.0, PTT less than OR equal to 43.5 seconds, or Fibrinogen greater than or equal to 100 mg/dl indicate adequate procoagulant activity for hemostasis in patients without underlying bleeding disorders. INR 1.6(H) 0.9 - 1.1 CERNER MILLENNIUM Blood specimen (specimen) 12/25/2012 10:02 AM EDT 12/25/2012 10:09 AM EDT Narrative Resulting Agency Comment Spec In Lab Mesha Masters MD HEMATOLOGY ORDERABLE S CERNER MILLENNIUM * (ABNORMAL) Differential, Automated (12/25/2012 5:43 AM EDT) Neutrophils % 66.6 34.0 - 71.0 % CERNER MILLENNIUM Neutr Abs (ANC) 7.20(H) 1.50 - 6.30 x10(3)/mc L CERNER MILLENNIUM Lymphocytes % 16.6(L) 19.0 - 53.0 % CERNER MILLENNIUM Lymphocytes Abs 1.8 1.0 - 3.6 x10(3)/mc L CERNER MILLENNIUM Monocytes % 9.5 4.0 - 13.0 % CERNER MILLENNIUM Monocyte Abs 1.0 0.2 - 1.0 x10(3)/mc L CERNER MILLENNIUM Eosinophils % 5.5 0.0 - 7.0 % CERNER MILLENNIUM Eosinophils Abs 0.6(H) 0.0 - 0.5 x10(3)/mc L CERNER MILLENNIUM [...] differential will be performed. Yeni Gran Abs 0.10(H) 0.00 - 0.05 x10(3)/mc L CERNER MILLENNIUM Blood specimen (specimen) 12/25/2012 5:43 AM EDT 12/25/2012 5:47 AM EDT Mesha Masters MD HEMATOLOGY ORDERABLE S Performing Organization Address City/[facility]/ZIP Co de Phone Number CERDAKSHA MILLENNIUM * (ABNORMAL) CBC (with Diff) (12/25/2012 5:43 AM EDT) WBC 10.8(H) 4.0 - 10.0 x10(3)/mcL CERNER MILLENNIUM RBC 2.92(L) 4.63 - 6.08 x10(6)/mcL CERNER MILLENNIUM Hemoglobin 8.0(L) 13.7 - 17.5 gm/dL CERNER MILLENNIUM Hematocrit 25.6(L) 40.0 - 51.0 % CERNER MILLENNIUM MCV 87.7 79.0 - 92.0 fL CERNER MILLENNIUM MCH 27.4 25.6 - 32.2 pg CERNER MILLENNIUM MCHC 31.3(L) 32.0 - 36.5 gm/dL CERNER MILLENNIUM Platelets 383(H) 145 - 370 x10(3)/mcL CERNER MILLENNIUM RDWSD 64.7(H) 35.0 - 46.0 fL CERNER MILLENNIUM RDWCV 20.3(H) 10.9 - 14.4 % CERNER MILLENNIUM MPV 8.9(L) 9.0 - 12.0 fL CERNER MILLENNIUM Blood specimen (specimen) 12/25/2012 5:43 AM EDT 12/25/2012 5:47 AM EDT Narrative Resulting Agency Comment Spec In Lab Mesha Masters MD HEMATOLOGY ORDERABLE S CERDAKSHA HARTMANENNIUM * Transfuse RBC (12/24/2012 3:42 PM EDT) Mesha Masters MD NURSING TREATMENT OR DERABLES - BLOOD ADMIN * Prepare RBC (12/24/2012 12:05 PM EDT) Dispensed? Yes DANETTE VALENCIA Blood specimen (specimen) 12/24/2012 12:05 PM EDT 12/24/2012 12:03 PM EDT Narrative Resulting Agency Comment Spec In Lab Mesha Masters MD BLOOD BANK PRODUCT O RDERABLES DANETTE PRIDEIUM * (ABNORMAL) Differential, Automated (12/24/2012 2:33 AM EDT) Neutrophils % 67.8 34.0 - 71.0 % CERNER MILLENNIUM Neutr Abs (ANC) 5.93 1.50 - 6.30 x10(3)/mc L CERNER MILLENNIUM Lymphocytes % 13.0(L) 19.0 - 53.0 % CERNER MILLENNIUM Lymphocytes Abs 1.1 1.0 - 3.6 x10(3)/mc L CERNER MILLENNIUM Monocytes % 12.6 4.0 - 13.0 % CERNER MILLENNIUM Monocyte Abs 1.1(H) 0.2 - 1.0 x10(3)/mc L CERNER MILLENNIUM Eosinophils % 5.5 0.0 - 7.0 % CERNER MILLENNIUM Eosinophils Abs 0.5 0.0 - 0.5 x10(3)/mc L CERNER MILLENNIUM Basophils % 0.8 0.0 - 2.0 % CERNER MILLENNIUM Basophils Abs 0.1 0.0 - 0.2 x10(3)/mc L CERNER MILLENNIUM Immature Gran % 0.30 0.00 - 0.66 % CERNER MILLENNIUM Comment: Immature granulocytes(IG's)percentage and absolute count will include metamyelocytes, myelocytes, and promyelocytes. Blood smears from CBCs yielding IG's will be scanned manually for concordance. If this scan disagrees with the automated IG or if promyelocytes are noted, a manual differential will be performed. Yeni Gran Abs 0.03 0.00 - 0.05 x10(3)/mc L CERNER MILLENNIUM Blood specimen (specimen) 12/24/2012 2:33 AM EDT 12/24/2012 2:37 AM EDT Josemanuel Wynne MD HEMATOLOGY ORDERABLE S CERNER MILLENNIUM * (ABNORMAL) Basic Metabolic Panel (non-fasting) (12/24/2012 2:33 AM EDT) Glucose Lvl 99 60 - 199 mg/dL CERNER MILLENNIUM Comment:Diabetes: >=200 mg/d L plus symptoms BUN 19 10 - 20 mg/dL CERNER MILLENNIUM Creatinine 1.23 0.80 - 1.50 mg/dL CERNER MILLENNIUM Comment: Please note that the pediatric reference intervals supplied above were not validated at [facility]. Results from pediatric patients should be interpreted in conjunction to the patient's age, height and muscle mass. Sodium 138 135 - 145 mmol/L CERNER MILLENNIUM Potassium 3.9 3.5 - 5.0 mmol/L CERNER MILLENNIUM Comment: Please note: ??Patients with WBC >100,000 may have falsely elevated Potassium levels. ??For accurate Potassium quantification in these patients send serum separator tube (gold top) for subsequent determinations. ??Contact the Clinical Chemistry Laboratory if there are any questions. Chloride 108(H) 98 - 107 mmol/L CERNER MILLENNIUM CO2 24 22 - 31 mmol/L CERNER MILLENNIUM Anion Gap 6 5 - 15 mmol/L CERNER MILLENNIUM Calcium 7.9(L) 8.5 - 10.5 mg/dL CERNER MILLENNIUM Estimated GFR 60 >=60 CERNER MILLENNIUM Comment: The National Kidney Disease Education Program [...] diabetic kidney disease. References: http://nkdep.nih.gov/resources/NKDEP_Suggestn4Labs_0606_508.pdf http://www.kidney.org/professionals/kls/pdf/faq_gfr.pdf Jorje K, Rebecca NA, Dariana AK, Darren TS, Darci AD, Halle HAMILTON. Relative performance of the MDRD and CKD-EPI equations for estimating glomerular filtration rate among patients with varied clinical presentations. Clin J Am Soc Nephrol;6:1963-72. Blood specimen (specimen) 12/24/2012 2:33 AM EDT 12/24/2012 2:37 AM EDT Narrative Resulting Agency Comment Spec In Lab Josemanuel Wynne MD CHEMISTRY ORDERABLES [facility] * (ABNORMAL) CBC (with Diff) (12/24/2012 2:33 AM EDT) WBC 8.8 4.0 - 10.0 x10(3)/mcL CERNER MILLENNIUM RBC 2.43(L) 4.63 - 6.08 x10(6)/mcL CERNER MILLENNIUM Hemoglobin 6.7(L) 13.7 - 17.5 gm/dL CERNER MILLENNIUM Hematocrit 22.3(L) 40.0 - 51.0 % DANETTE HARTMANENNIUM MCV 91.8 79.0 - 92.0 fL CERDAKSHA HARTMANENNIUM MCH 27.6 25.6 - 32.2 pg CERDAKSHA HARTMANENNIUM MCHC 30.0(L) 32.0 - 36.5 gm/dL CERDAKSHA MILLENNIUM Platelets 336 145 - 370 x10(3)/mcL CERDAKSHA HARTMANENNIUM RDWSD 56.8(H) 35.0 - 46.0 fL CERDAKSHA HARTMANENNIUM RDWCV 17.0(H) 10.9 - 14.4 % CERDAKSHA HARTMANENNIUM MPV 8.8(L) 9.0 - 12.0 fL DANETTE HARTMANENNIUM Blood specimen (specimen) 12/24/2012 2:33 AM EDT 12/24/2012 2:37 AM EDT Narrative Resulting Agency Comment Spec In Lab Josemanuel Wynne MD HEMATOLOGY ORDERABLE S Performing Organization Address City/[facility] Co de Phone Number DANETTE PRIDEIUM * Antibody screen (12/23/2012 11:50 AM EDT) Ab Screen Interp Negative DANETTE PRIDEIUM Expires at [id number] on: [id number] DANETTE PRIDEIUM Blood specimen (specimen) 12/23/2012 11:50 AM EDT 12/23/2012 12:09 PM EDT Narrative Resulting Agency Comment Spec In Lab Mesha Masters MD BLOOD BANK LAB ORDER JAMES Performing Organization Address City/[facility] Co de Phone Number DANETTE PRIDEIUM * ABO/Rh Typing (12/23/2012 11:50 AM EDT) ABORH Type A Pos DANETTE PRIDEIUM Blood specimen (specimen) 12/23/2012 11:50 AM EDT 12/23/2012 12:09 PM EDT Narrative Resulting Agency Comment Spec In Lab Mesha Masters MD BLOOD BANK LAB ORDER JAMES Performing Organization Address City/[facility] Co de Phone Number CERNER MILLENNIUM * (ABNORMAL) Differential, Automated (12/23/2012 10:00 AM EDT) Neutrophils % 77.4(H) 34.0 - 71.0 % CERNER MILLENNIUM Neutr Abs (ANC) 9.36(H) 1.50 - 6.30 x10(3)/mc L CERNER MILLENNIUM Lymphocytes % 17.0(L) 19.0 - 53.0 % CERNER MILLENNIUM Lymphocytes Abs 2.0 1.0 - 3.6 x10(3)/mc L CERNER MILLENNIUM Monocytes % 3.0(L) 4.0 - 13.0 % CERNER MILLENNIUM Monocyte Abs 0.4 0.2 - 1.0 x10(3)/mc L CERNER MILLENNIUM Eosinophils % 1.9 0.0 - 7.0 % CERNER MILLENNIUM Eosinophils Abs 0.2 0.0 - 0.5 x10(3)/mc L CERNER MILLENNIUM Basophils % 0.5 0.0 - 2.0 % CERNER MILLENNIUM Basophils Abs 0.1 0.0 - 0.2 x10(3)/mc L CERNER MILLENNIUM Immature Gran % 0.20 0.00 - 0.66 % CERNER MILLENNIUM Comment: Immature granulocytes(IG's)percentage and absolute count will include metamyelocytes, myelocytes, and promyelocytes. Blood smears from CBCs yielding IG's will be scanned manually for concordance. If this scan disagrees with the automated IG or if promyelocytes are noted, a manual differential will be performed. Yeni Gran Abs 0.03 0.00 - 0.05 x10(3)/mc L CERNER MILLENNIUM Blood specimen (specimen) 12/23/2012 10:00 AM EDT 12/23/2012 10:08 AM EDT Josemanuel Wynne MD HEMATOLOGY ORDERABLE S CERNER MILLENNIUM * Scan, Peripheral Blood (12/23/2012 10:00 AM EDT) Plat Estimate Normal CERNER MILLENNIUM RBC Morphology Abnormal CERNE R MILLENNIUM Polychromasia Present >5/HPF CERNER MILLENNIUM Blood specimen (specimen) 12/23/2012 10:00 AM EDT 12/23/2012 10:08 AM EDT Narrative Resulting Agency Comment Spec In Lab Josemanuel Wynne MD HEMATOLOGY ORDERABLE S Performing Organization Address [facility] de Phone Number DANETTE [facility]MANKA[facility] * (ABNORMAL) APTT (12/23/2012 10:00 AM EDT) PTT 54(H) 25 - 35 sec [facility] HARTMANENNIUM Comment: Recommended therapeutic PTT range for full dose unfractionated heparin is 80-114 seconds. Blood specimen (specimen) 12/23/2012 10:00 AM EDT 12/23/2012 10:08 AM EDT Narrative Resulting Agency Comment Spec In Lab Josemanuel Wynne MD HEMATOLOGY ORDERABLE S Performing Organization Address [facility] Phone Number DANETTE VALENCIA * (ABNORMAL) Prothrombin Time (12/23/2012 10:00 AM EDT) PT 25.1(H) 12.0 - 15.0 sec [facility] Comment: [facility] Transfusion Committee Guidelines: INR less than 2.0, PTT less than OR equal to 43.5 seconds, or Fibrinogen greater than or equal to 100 mg/dl indicate adequate procoagulant activity for hemostasis in patients without underlying bleeding disorders. INR 2.2(H) 0.9 - 1.1 [facility]ENTERDAKSHA HARTMANSAN [facility]ATIONIUM Blood specimen (specimen) 12/23/2012 10:00 AM EDT 12/23/2012 10:08 AM EDT Narrative Resulting Agency Comment Spec In Lab Josemanuel Wynne MD HEMATOLOGY ORDERABLE S Performing Organization Address [facility] Phone Number DANETTE HARTMANSAN [facility] * Glucose, random (12/23/2012 10:00 AM EDT) Glucose Lvl 129 60 - 199 mg/dL [facility] Comment:Diabetes: >=200 mg/d L plus symptoms Blood specimen (specimen) 12/23/2012 10:00 AM EDT 12/23/2012 10:08 AM EDT Narrative Resulting Agency Comment Spec In Lab Josemanuel Wynne MD CHEMISTRY ORDERABLES [facility] * (ABNORMAL) Creatinine (12/23/2012 10:00 AM EDT) Creatinine 1.50 0.80 - 1.50 mg/dL DANETTE [facility]KAIS[facility] Comment: Please note that the pediatric reference intervals supplied above were not validated at [facility]. Results from pediatric patients should be interpreted in conjunction to the patient's age, height and muscle mass. Estimated GFR 47(L) >=60 [facility] Comment: The National Kidney Disease Education Program [...] diabetic kidney disease. References: http://nkdep.nih.gov/resources/NKDEP_Suggestn4Labs_0606_508.pdf http://www.kidney.org/professionals/kls/pdf/faq_gfr.pdf Jorje K, Rebecca NA, Dariana AK, Darren TS, Darci AD, Halle HAMILTON. Relative performance of the MDRD and CKD-EPI equations for estimating glomerular filtration rate among patients with varied clinical presentations. Clin J Am Soc Nephrol;6:1963-72. Blood specimen (specimen) 12/23/2012 10:00 AM EDT 12/23/2012 10:08 AM EDT Narrative Resulting Agency Comment Spec In Lab Josemanuel Wynne MD CHEMISTRY ORDERABLES Performing Organization Address [facility] Co de Phone Number CERNER MILLENNIUM * (ABNORMAL) BUN (12/23/2012 10:00 AM EDT) BUN 25(H) 10 - 20 mg/dL CERNER MILLENNIUM Blood specimen (specimen) 12/23/2012 10:00 AM EDT 12/23/2012 10:08 AM EDT Narrative Resulting Agency Comment Spec In Lab Josemanuel Wynne MD CHEMISTRY ORDERABLES Performing Organization Address [facility] Co de Phone Number CERNER MILLENNIUM * (ABNORMAL) Electrolytes panel (12/23/2012 10:00 AM EDT) Sodium 133(L) 135 - 145 mmol/L CERNER MILLENNIUM Potassium 3.9 3.5 - 5.0 mmol/L CERNER MILLENNIUM Comment: Please note: ??Patients with WBC >100,000 may have falsely elevated Potassium levels. ??For accurate Potassium quantification in these patients send serum separator tube (gold top) for subsequent determinations. ??Contact the Clinical Chemistry Laboratory if there are any questions. Chloride 100 98 - 107 mmol/L CERNER MILLENNIUM CO2 24 22 - 31 mmol/L CERNER MILLENNIUM Anion Gap 9 5 - 15 mmol/L CERNER MILLENNIUM Blood specimen (specimen) 12/23/2012 10:00 AM EDT 12/23/2012 10:08 AM EDT Narrative Resulting Agency Comment Spec In Lab Josemanuel Wynne MD CHEMISTRY ORDERABLES Performing Organization Address [facility]/ZIP Co de Phone Number DANETTE VALENCIA * (ABNORMAL) CBC (with Diff) (12/23/2012 10:00 AM EDT) WBC 12.1(H) 4.0 - 10.0 x10(3)/mcL CERNER MILLENNIUM RBC 2.73(L) 4.63 - 6.08 x10(6)/mcL CERNER MILLENNIUM Hemoglobin 7.6(L) 13.7 - 17.5 gm/dL CERNER MILLENNIUM Hematocrit 24.8(L) 40.0 - 51.0 % CERNER MILLENNIUM MCV 90.8 79.0 - 92.0 fL CERNER MILLENNIUM MCH 27.8 25.6 - 32.2 pg CERNER MILLENNIUM MCHC 30.6(L) 32.0 - 36.5 gm/dL CERNER MILLENNIUM Platelets 362 145 - 370 x10(3)/mcL CERNER MILLENNIUM RDWSD 56.8(H) 35.0 - 46.0 fL CERNER MILLENNIUM RDWCV 17.2(H) 10.9 - 14.4 % CERNER MILLENNIUM MPV 9.1 9.0 - 12.0 fL CERNER MILLENNIUM Blood specimen (specimen) 12/23/2012 10:00 AM EDT 12/23/2012 10:08 AM EDT Narrative Resulting Agency Comment Spec In Lab Josemanuel Wynne MD HEMATOLOGY ORDERABLE S Performing Organization Address City/[facility]/ZIP Co de Phone Number DANETTE VALENCIA documented in this encounter Visit Diagnoses Diagnosis Urinary retention- Primary Retention of urine, unspecified Hematuria Hematuria, unspecified documented in this encounter Administered Medications Inactive Administered Medications - up to 3 most recent administrations Medication Order MAR Action Action Date Dose Rate Site cephALEXin (KEFLEX) capsule 500 mg 500 mg, Oral, 3 TIMES DAILY, 3 doses, First dose on 12/23/12 at 1630, Last dose on 12/24/12 at 0900, Routine, Indication for (Active or Suspected): Prophylaxis Given 12/24/2012 9:24 AM EDT 500 mg Given 12/24/2012 12:14 AM EDT 500 mg Given 12/23/2012 7:13 PM EDT 500 mg esomeprazole (NEXIUM) capsule 40 mg 40 mg, Oral, DAILY, First dose on [facility] 12/23/12 at 1700, Until Discontinued, Oral route preferred, Routine Given 12/23/2012 7:13 PM EDT 40 mg esomeprazole (NEXIUM) capsule 40 mg 40 mg, Oral, 2 TIMES DAILY, First dose on [place] 12/24/12 at 0900, Until Discontinued, Routine Given 12/26/2012 9:26 AM EDT 40 mg Given 12/25/2012 8:17 PM EDT 40 mg Given 12/25/2012 9:00 AM EDT 40 mg hydroCODone-acetaminophen (VICODIN) 5-500 mg per tablet 1-2 tablet 1-2 tablet, Oral, EVERY 4 HOURS PRN, Starting on [facility] 12/23/12 at 1608, Until 12/26/12 at 1750, Pain, Maximum dose of acetaminophen is 4000 mg from all sources in 24 hours., Routine Given 12/26/2012 3:28 PM EDT 2 tablets Given 12/26/2012 11:37 AM EDT 2 tablets Given 12/26/2012 6:31 AM EDT 2 tablets levothyroxine (SYNTHROID) tablet 50 mcg 50 mcg, Oral, DAILY, First dose on [facility] 12/23/12 at 1700, Until Discontinued, Routine Given 12/26/2012 5:59 AM EDT 50 mcg Given 12/25/2012 5:20 AM EDT 50 mcg Given 12/24/2012 6:00 AM EDT 50 mcg montelukast (SINGULAIR) tablet 10 mg 10 mg, Oral, DAILY, First dose on [place] 12/24/12 at 0900, Until Discontinued, Routine Given 12/26/2012 9:26 AM EDT 10 mg Given 12/25/2012 9:00 AM EDT 10 mg Given 12/24/2012 9:00 AM EDT 10 mg senna-docusate (PERICOLACE) 8.6-50 mg per tablet 1-4 tablet 1-4 tablet, Oral, 2 TIMES DAILY, First dose on [facility] 12/23/12 at 2100, Until Discontinued, Start with 1 tablet or liquid equivalent orally twice daily and titrate up to achieve: 1. One bowel movement at least every 48 hours, AND 2. Without straining, Routine Given 12/26/2012 9:26 AM EDT 2 tablets Given 12/25/2012 8:17 PM EDT 2 tablets Given 12/25/2012 9:00 AM EDT 2 tablets sodium chloride 0.9 % flush 5 mL 5 mL, Intravenous, EVERY 12 HOURS, First dose on 12/23/12 at 1630, Until Discontinued Given 12/26/2012 4:30 AM EDT 5 mLs Given 12/25/2012 4:30 PM EDT 5 mLs Given 12/25/2012 4:30 AM EDT 5 mLs sodium chloride 0.9 % irrigation 3,000 mL 3,000 mL, Irrigation, CONTINUOUS, Starting on 12/23/12 at 2015, Until Tue12/26/12 at 0818, Routine New Bag 12/25/2012 4:28 AM EDT 3,000 mLs mL/hr New Bag 12/25/2012 2:15 AM EDT 3,000 mLs mL/hr New Bag 12/24/2012 4:00 PM EDT 3,000 mLs mL/hr sodium chloride 0.9% infusion 1,000 mL, at 100 mL/hr, Intravenous, CONTINUOUS, Starting on 12/23/12 at 1400, Until Tue12/26/12 at 0818 New Bag 12/25/2012 1:56 PM EDT 1,000 mLs 100 m L/hr New Bag 12/25/2012 4:42 AM EDT 1,000 mLs 100 mL/hr New Bag 12/24/2012 6:50 PM EDT 1,000 mLs 100 mL/hr documented in this encounter Active and Recently Administered Medications Times are shown in EDT. Scheduled Medication Order 12/24/2012 12/25/2012 12/26/2012 cephALEXin (KEFLEX) capsule 500 mg (COMPLETED) 500 mg, Oral, 3 TIMES DAILY, 3 doses, First dose on 12/23/12 at 1630, Last dose on Tue12/24/12 at 0900, Routine, Indication for (Active or Suspected): Prophylaxis 0014 (Given - Provider: Maddie Gallegos RN)0924 (Given - Provider: Caterina Funk RN) esomeprazole (NEXIUM) capsule 40 mg (CANCELED) 40 mg, Oral, 2 TIMES DAILY, First dose on 12/24/12 at 0900, Until Discontinued, Routine 09 (Given - Provider: Caterina Funk RN)2041 (Given - Provider: Celina Villela, LANIE) 09 (Given - Provider: Bailey Neves RN)2016 (Given - Provider: Beltran Moses, LANIE) 09 (Given - Provider: Caterina Damon, LANIE) levothyroxine (SYNTHROID) tablet 50 mcg (CANCELED) 50 mcg, Oral, DAILY, First dose on 12/23/12 at 1700, Until Discontinued, Routine 0600 (Given - Provider: Yennifer Olguin RN) 0520 (Given - Provider: Beltran Moses, LANIE) 0559 (Given - Provider: Beltran Moses RN) montelukast (SINGULAIR) tablet 10 mg (CANCELED) 10 mg, Oral, DAILY, First dose on 12/24/12 at 0900, Until Discontinued, Routine 0900 (Given - Provider: Caterina Funk RN) 899 (Given - Provider: Bailey Neves RN) 09 (Given - Provider: Caterina Damon RN) senna-docusate (PERICOLACE) 8.6-50 mg per tablet 1-4 tablet (CANCELED) 1-4 tablet, Oral, 2 TIMES DAILY, First dose on 12/23/12 at 2100, Until Discontinued, Start with 1 tablet or liquid equivalent orally twice daily and titrate up to achieve: 1. One bowel movement at least every 48 hours, AND 2. Without straining, Routine 09 (Given - Provider: Caterina Funk RN)2042 (Given - Provider: Celina Villela, LANIE) 09 (Given - Provider: Bailey Neves, LANIE)2016 (Given - Provider: Beltran Moses RN) 09 (Given - Provider: Caterina Damon RN) sodium chloride 0.9 % flush 5 mL (CANCELED) 5 mL, Intravenous, EVERY 12 HOURS, First dose on 12/23/12 at 1630, Until Discontinued 0335 (Not Given - Provider: Maddie Gallegos RN - Reason: See comment - Comment: has IVF infusing)1630 (Given - Provider: Caterina Funk RN) 0430 (Given - Provider: Beltran Moses, LANIE)1630 (Given - Provider: Bailey Neves, LANIE) 0430 (Given - Provider: Beltran Moses RN) Continuous Medication Order 12/24/2012 12/25/2012 12/26/2012 sodium chloride 0.9 % irrigation 3,000 mL (CANCELED) 3,000 mL, Irrigation, CONTINUOUS, Starting on 12/23/12 at 2015, Until Tue12/26/12 at 0818, Routine 0200 (New Bag - Provider: Yennifer Olguin, LANIE)0413 (New Bag - Provider: Yennifer Olguin RN)0613 (New Bag - Provider: Maddie Gallegos RN)0735 (New Bag - Provider: Caterina Funk RN)0953 (New Bag - Provider: Caterina Funk, LANIE)1600 (New Bag - Provider: Caterina Funk RN) 0215 (New Bag - Provider: Beltran Moses, LANIE)0428 (New Bag - Provider: Beltran Moses, LANIE) sodium chloride 0.9% infusion (CANCELED) 1,000 mL, at 100 mL/hr, Intravenous, CONTINUOUS, Starting on 12/23/12 at 1400, Until Tue12/26/12 at 0818 0906 (New Bag - Provider: Caterina Funk RN)1850 (New Bag - Provider: Caterina Funk RN) 0442 (New Bag - Provider: Beltran Moses, LANIE)1356 (New Bag - Provider: Bailey Neves, LANIE)1537 (Stopped - Provider: Bailey Neves RN - Comment: stop per urology) PRN Medication Order 12/24/2012 12/25/2012 12/26/2012 hydroCODone-acetaminophe n (VICODIN) 5-500 mg per tablet 1-2 tablet 1-2 tablet, Oral, EVERY 4 HOURS PRN, Starting on 12/23/12 at 1608, Until Tue12/26/12 at 1750, Pain, Maximum dose of acetaminophen is 4000 mg from all sources in 24 hours., Routine 0653 (Given - Provider: Maddie Gallegos RN) 0631 (Given - Provider: Beltran Moses, RN)1100 (Given - Provider: Bailey Neves, LANIE - Comment: pt requesting meds)1600 (Given - Provider: Bailey Neves, RN)2017 (Given - Provider: Beltran Moses, LANIE) 0631 (Given - Provider: Beltran Moses, LANIE)1137 (Given - Provider: Maritza Green, LANIE)1528 (Given - Provider: Maritza Green, LANIE) documented in this encounter Care Teams Brand Marketing Specialist Relationship Specialty Start Date End Date Cameron Patel MD [address] [place] [address] PCP - General 10/26/12 documented as of this encounter
--- OUTSIDE RECORDS SUMMARY | 2024-04-20 15:08 | XMS_ITS | Encounter Summary ---
Author Organization Former[facility] [place] [address] Care Team Providers Care Brassiere Cup Mold Cutter Name Role Phone Farnaz Pineda MD Primary Care Provider [phone] Encounter Details Date Type Department Care Team (Late st Contact Info) Description 01/03/2013 4:45 PM EDT [place] [id number] Ross Madrid MD [facility] [place] [address] Prostate cancer (Primary Dx) Discharge Disposition: Home [...] Progress Notes * Ross Madrid MD - 01/11/2013 4:27 PM EDT Admitted from clinic for gross hematuria See inpatient notes documented in this encounter Plan of Treatment Not on file documented as of this encounter Visit Diagnoses Diagnosis Prostate cancer- Primary Malignant neoplasm of prostate documented in this encounter Care Teams Brassiere Cup Mold Cutter Relationship Specialty Start Date End Date Farnaz Pineda MD [address] [place] [address] PCP - General 10/26/12 documented as of this encounter
--- OUTSIDE RECORDS SUMMARY | 2024-04-20 15:08 | XMS_ITS | Encounter Summary ---
Author Organization [facility] Address [facility] [place] [address] Care Team Providers Care Debarker Operator Name Role Phone Farnaz Patel MD Primary Care Provider [phone] Reason for Referral * Consultation (Routine) - Closed Specialty Diagnoses / Procedures Referred By Berta tavera Referred To Contact Diagnoses Abscess Bacteremia Postoperative hemorrhage Lesly Hope MD [facility] [place] [address] Riky Henley MD [facility] [place] [address] Referral ID Status Reason Start Date Expiration Date V isits Requested Visits Authorized [id number] Closed Assume Subset of Care 01/29/2013 07/28/2013 1 1 Encounter Details Date Type Department Care Team (Latest Contact Info) Description 01/23/2013 10:41 PM EDT - 01/30/2013 6:46 PM EDT Hospital Encounter [address] [place] [address] Presley Madrid MD [facility] [place] [address] Lesly Hope MD [facility] [place] [address] S/P AVR (aortic valve replacement) (Primary Dx); Abscess; Bacteremia; Postoperative hemorrhage Discharge Disposition: Home with VNA Social History Tobacco Use Types Packs/Day Years [...] Sign Reading Time Taken Comments Blood Pressure 121/75 01/30/2013 1:13 PM EDT Pulse 84 01/30/2013 1:13 PM EDT Temperature 36.6 ??C (97.9 ??F) 01/30/2013 1:13 PM ED T Respiratory Rate 17 01/30/2013 1:13 PM EDT Oxygen Saturation 97% 01/30/2013 1:13 PM EDT Inhaled Oxygen Concentration - - Weight 111.2 kg (245 lb 2.4 oz) 013 12:00 AM EDT Height 172.7 cm (5' 8) 01/23/2013 11:1 6 PM EDT Body Mass Index 37.28 01/23/2013 11:16 PM EDT documented in this encounter Discharge Instructions * Discharge Instructions* Jasen Sethi RN - 01/30/2013 9:46 AM EDT chili maker Addendum Care Management Progress Notes 01/29/2013 11:46 AM Office of Care Management Clinical Soft Drink Powder Mixer Home IV Antibiotic Therapy Referral Note. Report received from that this patient will need home IV ABX treatment at discharge from the hospital. Met with patient/family to discuss vendor and visiting nurse choices for home IV antibiotic therapy. Reviewed Home Infusion Vendors and Home Health Agencies that serve patient???s address and accept patient???s insurance. Home Health Agency: Patient requested referral to [facility] PHONE: [phone] FAX: [phone] Referrals sent via edischarge. Home Infusion Vendor: [facility] or Referrals sent via edischarge. Diabetic Status: Patient is not a diabetic. IV access: Type of line: PICC line Date placed: 01-29-13 CRC signature Belen Valle RN [facility] Vascular and Interventional Radiology Discharge Instructions for Tube Care Activity: Rest for the next 24 hours.You may be sore for several days after the tube is inserted. This may limit your activity. You should be careful to avoid activity that causes a pulling sensation, pain or kinking of the tube. When to call your healthcare provider: There may be a little blood in the drainage after the tube is placed or changed. Contact your healthcare provider if the bleeding doesn???t stop in a couple of days or if the drainage becomes bright red. If drainage leaks around the tube, or there is decreased drainage into the bag or bulb. If the tube stops draining. If skin around the tube is red or irritated or if you see any swelling or drainage around the tube. If you have shaking chills. If you have a fever equal to or greater than 101 degrees Fahrenheit If you have unusual pain at the tube site. If the smell of the drainage becomes strong, call your healthcare provider. Tube Care: If your tube is connected to a drainage bag or bulb, it is important to empty it regularly. Monitor the dressing daily and change as needed. You may take a shower but you must cover the dressing with plastic wrap to keep it dry. It may be easier to take a sponge bath. You may NOT take a tub bath or swim. It is important that you take care of your tube. It can be pulled out if it is caught on something.If you think the tube is partly pulled out or if it comes out completely, we can usually put it back in easily if you come to see us within 12-24 hours. It is important to keep the skin around the tube healthy. You should clean the area with soap and water a minimum of three times per week. Replace the gauze dressing after you have cleaned and completely dried the skin. Please flush your drain as instructed with ___5___cc of Normal Saline, EVERY 8 HOURS using the syringes supplied to you. WHEN OUTPUT DROPS BELOW 20ML/DAY PLEASE CALL RADIOLOGY. When to call the Interventional Radiology Department: Please call with any questions or concerns. If it is during regular office hours, please call [phone]. If it is after regular office hours, or on weekends or holidays, please call [phone] and ask to speak to the Jacquard Lace Weaver certified pest control technician for Interventional Radiology. You may have received medication during your procedure to help lesson anxiety and keep you comfortable. We recommend that you do not drive, operate equipment, sign any important documents, or smoke unattended for 24 hours following your procedure. You may have received medication before and/or during your procedure, which affects judgement and reaction time. Be careful on stairs, as you may be unsteady on your feet. You may eat a regular diet as tolerated IV site -- slight redness, or tenderness is normal, you can use a warm compress. If tenderness and redness increases or foul drainage occurs, please contact your M. D. 10/22/11 Revised 06/04/11 * Patient Instructions* Clyde Ruiz MD - 01/29/2013 9:25 AM EDT Call your doctor for: fevers greater than 100.5 severe nausea or vomiting increasing pain not controlled by pain medications increasing redness or drainage from incisions decreased urine output our if your catheter is no longer draining. The number for questions is [phone] before 5 PM weekdays and [phone] after 5 PM and weekends. Activity level: No heavy lifting greater than 10 pounds (about equal to a full gallon jug) for the next 4 weeks or until cleared to do so at follow-up appointment. Otherwise activity as tolerated by comfort level. Diet: You may resume your regular diet as tolerated. Driving: No driving while still taking opioid pain medications (wait at least 6- 8 hours since last dose). No driving if you are still sore from surgery as it may limit your ability to react quickly if necessary. Shower/Bath: Do not shower with drain in place. Sponge baths only Diallo: Diallo will stay in place until follow up next week Drain care: Keep drain site clean and dry. Change dressing as needed. Flush drain with 10cc sterilesaline twice daily Follow up Appointments: Follow-up appointment will be scheduled with Dr. Madrid in 1weeks for a Follow up. You will have a CT scan on this day to assess the size of the abscess/hematoma. Appointment will be mailed to you. Please call [phone] (clinic number for appointments) to confirm date and time of your appointment if you do not receive your apointment in 2-3 days. Anticoagulation (???Blood Thinner?? ) Management upon Discharge: Reason for anticoagulation therapy: Mechanical Aortic Valve Your NEW Warfarin (Coumadin??) dosing instruction upon discharge is: (Follow this schedule below until your first INR check after discharge (usually in 2- 4 days): Day of discharge (day #1): 7.5 mg Day #2: 5 mg Day #3: 5 mg Day #4: 5 mg INR Goal: 2.5-3.5 Expected duration of treatment: Lifelong Provider/Team responsible for ongoing outpatient anticoagulation management: Provider/Team/Clinic:FARNAZ PATEL MD Phone: [address] / [place] [address] If you have not received a call from your provider within 24hrs of having your INR drawn, please call your outpatient provider for further dose instructions. Warfarin (Coumadin??) should be taken at the same time every day, preferably after 5pm. If taking Enoxaparin (Lovenox??) injections, continue taking until instructed to stop. (You will betaking this medication until your INR is in the therapeutic range for 24 hours.) The following table shows your most recent INR results and Warfarin (Coumadin??) Doses Recent Labs Basename 01/30/13 0603 01/29/13 0702 01/28/13 0229 INR 1.7* 1.8* 1.8* Hospital Date 01/27 01/28 01/29 Coumadin Dose (mg) 5mg 5mg 5mg ?? Please review your Warfarin (Coumadin??) Pack upon discharge. ?? For your safety, it is very important to be aware of the following details related to taking ???blood thinning?? medications such as Coumadin. o Compliance: Take your medication exactly as directed. Missing a dose or taking more than you are scheduled to take could result in clotting or bleeding issues. o Signs and Symptoms to be reported include: increased pain, swelling or sudden shortness of breath severe headaches dizziness unusual bleeding or bruising changes in urine or bowel movement color coughing or spitting up of blood, or nosebleeds In the event that you should experience any of the above, seek medical attention. documented in this encounter Medications at Time [...] tablet Take 50 mcg by mouth daily. ciprofloxacin (CIPRO) 500 mg tablet Take 1 [...] as of this encounter Progress Notes * Pauline Alberto RN - 01/30/2013 5:08 PM EDT Pt discharge to Home with VNA/IV abx. After visit summary given to pt & reviewed verbally w/pt & . Prescriptions tubed to outpatient pharmacy for pt to milk pickup truck driver prior to leaving. Instructions reinforced on pain control regimen & prevention of constipation with adequate hydration & use of PRN bowel medications. Instructed & had pt's demonstrate flushing of IR drain & changing of drain dressing. NELC RN in to provide discharge teaching on abx. Pt & both very familiar with diallo/ leg bag care and refuses need for diallo catheter treatment. Pt verbalizes understanding of instructions & agrees to call number provided in AVS with any questions or concerns. Received medications per DEC. Pt left unit in wheelchair, brought to [facility] by staff, & left hospital via private vehicle. Discharge summary e-faxed to [facility] with phonenumber for follow up questions if necessary. * Randy Mckinley - 01/30/2013 4:22 PM EDT Molding Fitter Encounter Note Patient Name: Dillan Rodgers : [id number] MR#: [id number] Admit Date: 01/23/2013 10:41 PM Hospital Day 7 days Narrative:Visited to introduce and assess acceptance of Molding Fitter services. Assessment:Patient coping positively with stresses of illness/hospitalization at this time. Pt was in good spirits and said that he is going home and is coming to pick him. Intervention and Outcome:pt has family care and support and going home today. Follow-up: pt says that he is going to home today. Time in Direct Care:05 Mins Randy Arlen 01/30/2013 * Belen Valle RN - 01/30/2013 11:51 AM EDT Awaiting clearance for insurance coverage of his IV ABX for home by SHANNON. PICC line in place and NELC to do teaching and provide supplies, pump, IV penicillin to dose q4. RN updated and anticipate d/c home today afte trinsurance clearance , teachi ng and supply delivery. BELEN VALLE RN01/30/2013 * Nohemi Preston RN - 01/29/2013 4:09 PM EDT Pt. Returned from PICC A&O, RUE with PICC site no swelling or bleeding. * Geovanna Sellers RN - 01/29/2013 3:36 PM EDT Care Management/ CRC Pager# [phone] covering for Belen Valle RN/ Discharge planning S: I really would like to head home today, if it is possible. The PICC line is in and my can be here at about 5pm. I will call her right now. O: Met with patient this afternoon. Patient just returning from having PICC line placed. PICC line info and OPAT note put into E-discharge by Melissa Mancuso, Wildland Fire Operations Specialist. Call to Aislinn [facility] CR[facility] about possible start of therapy here later today and for patient to discharge to home today. Patient will be on Penicillin IV q4hr, and therefore on pump delivery system. Aislinn is clearing it through [facility] and finding out what time Penicillin and pump can be delivered. Discussion with Dr. Clyde Ruiz about plan. Discussion with log grader Nohemi. Care Management note for MD Discharge Summary (with VNA and home infusion vendor information) had been completed and pended by Belen Valle RN. A/P: I am available to assist for discharge planning needs. Addendum at 1550: O: Per Aislinn DELA CRUZ of [facility], medication and pump will be delivered by 1900 for patient to be discharged today. [facility] Staff member to do teach at that time. Patient's to arrive at about 1800. Call to LANIE Song. Message to Dr. Ruiz. * Dorita Mock, PT - 01/29/2013 2:18 PM EDT Met with pt to discuss functional status. Leaving shortly for PICC. Has been mobilizing in his roomand with supervision in the hallways. He has a cane at home and has access to a FWW if needed. Denies a need for further PT, Hoping to be d/c'd soon once his PICC teaching is done. Declined doing stairs with PT. * Belen Valle RN - 01/29/2013 11:46 AM EDT Office of Care Management Clinical Soft Drink Powder Mixer Home IV Antibiotic Therapy Referral Note. Report received from that this patient will need home IV ABX treatment at discharge from the hospital. Met with patient/family to discuss vendor and visiting nurse choices for home IV antibiotic therapy. Reviewed Home Infusion Vendors and Home Health Agencies that serve patient???s address and accept patient???s insurance. Home Health Agency: Patient requested referral to [facility] PHONE: [phone] FAX: [phone] Referrals sent via edischarge. Home Infusion Vendor: Patient requested referral to [place], [place] or Referrals sent via edischarge. Diabetic Status: Patient is not a diabetic. IV access: Type of line: PICC line Date placed: 01-29-13 CRC signature Belen Valle RN CRC * Nohemi Preston RN - 01/29/2013 11:11 AM EDT Pt. concented for PICC; seen by NIK NICHOLSON & CRC. * Belen Valle RN - 01/29/2013 11:07 AM EDT Met with Frankie well known to me from prior admission and will now need infusion/VNA services at home.His is an RN but also working and will do [facility] per his request when offeredchoices. Melissa salmon RS to make referrals and patient awaiting placement of a PICC this morning. ID involved and will do OPAT documentation for d/c. Teaching needs to be done with this patient and his . She will come down this afternoon as working. this morning. [facility] notified Will continue tofollow , aswsess and facilitate discharge. BELEN VALLE, LANIE01/29/2013 * Riky Henley MD - 01/29/2013 9:22 AM EDT INFECTIOUS DISEASE RED TEAM FELLOW INPATIENT F/U NOTE Subjective/24 hr Events: Pt feels ok, pt has improved L leg pain and able to ambulate with minimal complaints Pertinent Medications: Unasyn 3g IV q6 since 01/26 Physical Exam (24 hrs): Temp: [36.4 ??C (97.5 ??F)-37.2 ??C (99 ??F)] Heart Rate: [82-90] BP: (121-151)/(77-88) Resp: [16-18] SpO2: [95 %-98 %] Physical Exam Gen: NAD, nontoxic. A&Ox3. HEENT: PERRLA. No cervical LAD. Pulm: CTAB. Nl effort. Cardio: RRR, mechanical sound of S1, no murmurs, rubs or gallops GI: Abd S/ND/NT w/o rebound or guarding. No jaundice.Nl BS. Back: No CVA TTP. L drain in L flank with thick serosanguinolent secretion Neuro: No gross deficits noted Skin: No rashes. RIJ line central removed with no erythema or discharge Labs Lab Results Component Value Date WBC 11.4* 01/29/2013 HGB 8.1* 01/29/2013 HCT 26.4* 01/29/2013 MCV 87.4 01/29/2013 PLATELET 341 01/29/2013 Lab Results Component Value Date BUN 14 01/29/2013 CREATININE 1.08 01/29/2013 Micro Blood cultures 01/26 and 01/27 NGTD Imaging: reviewed Impression: Dillan Rodgers is a 62 y.o. male s/p robotic prostatectomy on November 20 complicated with a L pelvic hematoma and ongoing hematuria that got complicated with a suprainfected pelvic hematoma ( left pelvic 12 x 8 x 6 cm collection) and transient bacteremia with E coli and E faecalis on treatment with Unasyn 3g IV q6h since 01/26 and sp day # 5 of a drainage of this hematoma trough IR with active drainage trough a L hemiadomen drain. Pt has improved as he is on medical floor, afebrile since 01/25 and with a normalized WBC. His blood cultures have remained negative since Pt will need several weeksof IV antibiotics and CT scan of his abdomen/pelvis will be needed to assess resolution of infectedhematoma. ALEX on 01/26 was negative for vegetations As he is going to be discharged, we recommend using PCN G IV 4 million units q 4h and Ciprofloxacin 500mg PO bid to complete around 4 weeks of therapy since IR drainage on 01/24 with ID f/u. Depending on his clinical course, we may consider using POantibiotics such as Augmentin instead of PCN IV when we see him as f/u in 1-2 weeks. Recommendation: DC Unasyn PCN G 4 million units IV q4h until around 02/21 Ciprofloxacin until around 02/21 CT scan abdomen/pelvis around 02/21 to assess improvement of infected pelvic hematoma Do not given MVI or antacids containing Fe, Ca, Mg while on Cipro therapy as divalent cations blockquinolone absorption ID and OPAT will follow as outpatient Recommendations discussed with treating team, Consult service will continue to follow patient. x Recommendations are above, please page if further consultation required. Case discussed with ID attending Dr Kyara Massey Infectious Disease fellow Pager [phone] ID Attending I interviewed and examined the patient with Dr. Massey. I have reviewed Dr. Massey's note from today and I agree with the details as written. My physical examination confirms his findings. Of note today: Mr. Rodgers feels relatively well and is eager for discharge. A PICC line has been placed and home IV therapy is being planned. Dr. Massey's assessment and plan were formulated after discussion with me at the time of the visitand I agree with them as documented. We suggest a regimen of oral ciprofloxacin plus i.v. penicillin, dosed as above, for continued treatment of E. coli and enterococcal infection accompanied by bacteremia. We will address the duration of therapy (and possible conversion to an all-oral regimen) when we see him in about two weeks in ID Clinic. * Presley Madrid MD - 01/29/2013 8:46 AM EDT UROLOGY RESIDENT's PROGRESS NOTE Dillan Rodgers is a 62 y.o. 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 Developed sepsis on HD #1 now s/p IR angio embolization of internal iliac pseudoaneurysm and drain placement 24 hour interval events: No acute events Has remained afebrile Tolerating diet and ambulating Temp: [36.4 ??C (97.5 ??F)-37.2 ??C (99 ??F)] Heart Rate: [82-90] BP: (120-151)/(77-88) Resp: [16-18] SpO2: [95 %-98 %] I/O last 1 completed shift: In: 648 [P.O.:360; I.V.:288] Out: 1505 [Urine:1450; Other:55] I/O this shift: In: 300 [P.O.:300] Out: - Drain 100cc over last 24 hours NAD, awake, alert CV: Regular, mechanical heart sounds Pulm: CTAB Abd: soft, mild distention, +minimally tender IR drain- insertion site above suprapubic region c/d/i- purulent, dark fluid in bulb Ext: moving all four Recent Labs Basename 01/29/13 0216 01/27/13 1227 01/27/13 0200 WBC 11.4* 13.1* 12.1* HGB 8.1* 7.9* 7.4* PLATELET 341 249 257 NA 142 140 144 K 3.7 3.6 3.6 CL 108* 108* 112* CO2 27 24 23 BUN 14 15 18 CREATININE 1.08 1.13 1.20 MAGNESIUM -- -- -- PHOS -- -- -- GLUCOSE -- -- -- Recent Labs Basename 01/29/13 0702 PT 21.0* PTT 45* INR 1.8* PNC sensitive e.coli and entorococcus Blood cxs from 01/26,01/27: NGTD A: 62 yo male on anticoagulation 2/2 mechanical heart valve p/w chronic/recurrent hematoma of pelvis. Active bleeding from infected pseudoaneurysm embolized IR 01/24 and drain placed into infected hematoma. Continues to improve. Will plan for PICC placement today as blood cultures are negative. Will be discharged with IV ABX- length of treatment pending Appreciate ID recs on length of treatment OPAT Discharge today CLYDE RUIZ MD Attending Addendum: Patient seen and examined. Agree with plan as above. * Jaime Berrios DO - 01/29/2013 7:52 AM EDT Interventional Radiology Inpatient- Progress Note ID: 62 yr old M patient, s/p robotic prostatectomy/LND approximately [address] scan demonstrated left sided pelvic hematoma with gas within the collection and a 2.2 cm contrast collection posteriorly, consistent with a pseudoaneurysm. He is s/p left superior gluteal artery branch pseudoaneurysm treated by left internal iliac artery embolization 01/24 and drainage catheter placement in left pelvic abscess 01/24. Interval History: No overnight events. He reports mild discomfort in his left hip (11/19). H & Hare stable. He is afebrile with wbc of 11.4 Patient Active Problem List Diagnoses Code ??? S/P prostatectomy V45.89 ??? Prostate cancer 185 ??? Postoperative hemorrhage 998.11 ??? S/P AVR (aortic valve replacement) V43.3 Scheduled Meds: ??? warfarin 7.5 mg Oral Once ??? DISCONTD: warfarin 5 mg Oral Once ??? warfarin (COUMADIN) daily order reminder Oral Q24H ??? ampicillin-sulbactam 1.5 g Intravenous Q6H REI ??? esomeprazole 40 mg Oral Q12H REI Or ??? esomeprazole 40 mg Intravenous Q12H REI ??? sodium chloride 0.9 % 5 mL Intravenous Q12H ??? chlorhexidine 15 mL Oral Q12H REI ??? fluticasone-salmeterol 1 puff Inhalation Q12H ??? levothyroxine 50 mcg Oral Daily ??? montelukast 10 mg Oral Nightly ??? docusate sodium 100 mg Oral BID Continuous Infusions: ??? sodium chloride 0.9% 20 mL/hr (01/29/13 0339) ??? sodium chloride 0.9% 10 mL/hr (01/25/13 1800) PRN Meds:.HYDROmorphone, acetaminophen, HYDROmorphone, sodium chloride 0.9%, ondansetron, naloxone Physical Exam: Last value Range last 24 hrs Temperature Temp: 37 ??C (98.6 ??F) Temp: [36.4 ??C (97.5 ??F)-37.2 ??C (99 ??F)] Heart Rate Heart Rate: 87 Heart Rate: [82-90] Blood Pressure BP: 121/77 mmHg BP: (120-151)/(71-88) Respiratory Rate Resp: 16 Resp: [16-18] SpO2 SpO2: 96 % SpO2: [95 %-98 %] I/O last 3 completed shifts: In: 2089 [P.O.:1400; I.V.:685; Other:5] Out: 3775 [Urine:3615; Other:160] Labs: A/P: 62 yr old male patient, s/p robotic prostatectomy/LND with CT scan demonstrated left sided pelvic hematoma and pseudoaneurysm. He is s/p left superior gluteal artery branch pseudoaneurysm treated by left internal iliac artery embolization 01/24 and drainage catheter placement in left pelvic abscess 01/24. The abscess drainage catheter output was 100 ml. The patient is afebrile with cultures pending. Plan: 1. Continue to flush drainage catheter 5 cc q 8 hrs, and record outputs. 2. Observe for continued hemorrhage. His hemoglobin is stable at 8.1 * Becky Hairston RN - 01/29/2013 5:46 AM EDT S: I feel fine O: Rare trigeminy, frequent single PVCs, SR/ST, A: Pt denies chest pain, dizziness, nausea, SOB P: Continue to monitor with telemetry * Jelani Alves - 01/28/2013 6:38 PM EDT S Pt denies chest pain. O PVC, pt tolerating rate/rhythm A Pt denies nausea, shortness of breath P Continue to monitor tele * Elaina Bar MD - 01/28/2013 10:50 AM EDT UROLOGY RESIDENT's PROGRESS NOTE Dillan Rodgers is a 62 y.o. 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 Developed sepsis on HD #1 now s/p IR angio embolization of internal iliac pseudoaneurysm and drain placement 24 hour interval events: Transferred to regular floor Had BM Ambulated to the bathroom Took warfarin 5mg last night AVSS IN 1.4 (720 po) OUT 2 uop + 160 drain NAD, awake, alert CV: Regular but tachy at times, mechanical heart sounds Pulm: CTAB Abd: soft, mild distention, +tender to deep palpation in left lower quadrant IR drain- insertion site above suprapubic region c/d/i- purulent, dark fluid in bulb Ext: moving all four Labs in eDH INR 1.7 PNC sensitive e.coli and entorococcus A: 62 yo male on anticoagulation 2/2 mechanical heart valve p/w chronic/recurrent hematoma of pelvis. Active bleeding from infected pseudoaneurysm embolized IR 01/24 and drain placed into infected hematoma. Continues to improve. Warfarin 7.5mg nightly PO Pending issues before discharge Awaiting final cultures results from 01/[address]ICC. Will order PICC for Tuesday placement - if blood cultures are negative. PT/OT I saw the patient with the resident on morning rounds. I agree with the above assessment and plan. * Paola Lou RN - 01/28/2013 4:56 AM EDT Telemetry note: S: Denies chest pain, or SOB. Pt states I think I slept pretty well. O: Last value Range last 8 hrs Temperature Temp: 36.7 ??C (98.1 ??F) Temp: [36.7 ??C (98.1 ??F)-36.9 ??C (98.4 ??F)] Heart Rate Heart Rate: 77 Heart Rate: [77-78] Blood Pressure BP: 137/80 mmHg BP: (128-137)/(77-80) Respiratory Rate Resp: 17 Resp: [17-18] SpO2 SpO2: 99 % SpO2: [98 %-99 %] A:NSR with occasional PACs and PVCs. See telemetry strip. P: Continue to monitor. * Nancy Hardin RN - 01/27/2013 5:45 PM EDT Telemetry note: S: Patient denies SOB, dizziness/lightheadedness or chest pains. O: Last value Range last 24 hrs Temperature Temp: 36.2 ??C (97.2 ??F) Temp: [36.2 ??C (97.2 ??F)-37.3 ??C (99.1 ??F)] Heart Rate Heart Rate: 82 Heart Rate: [79-111] Blood Pressure BP: 138/82 mmHg BP: (110-138)/(69-96) Respiratory Rate Resp: 18 Resp: [15-22] SpO2 SpO2: 98 % SpO2: [80 %-100 %] A: Cardiac report states occassional pvcs/pacs and sinus rhythm and also rare SVT's. See telemetry strip. P: Will continue telemetry per MD order. * Elaina Bar MD - 01/27/2013 12:13 PM EDT UROLOGY RESIDENT's PROGRESS NOTE Dillan Rodgers is a 62 y.o. 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 Developed sepsis on HD #1 now s/p IR angio embolization of internal iliac pseudoaneurysm and drain placement 24 hour interval events: No acute events. Has remained a febrile. Feeling improved everyday. Transferred out of the ICU Appreciated Cardiology and ID input Final culture SS in eDH Last value Range last 24 hrs Temperature Temp: 36.9 ??C (98.4 ??F) Temp: [36.7 ??C (98.1 ??F)-37.3 ??C (99.1 ??F)] Heart Rate Heart Rate: 80 Heart Rate: [80-111] Blood Pressure BP: 110/70 mmHg BP: (110-125)/(69-78) Respiratory Rate Resp: 16 Resp: [15-25] SpO2 SpO2: 98 % SpO2: [80 %-100 %] Art BP BP (Arterial Line): 134/62 mmHg BP (Arterial Line): (128-152)/(60-74) 2.12 (700ml PO) 1.6 uop + d355ml NAD, awake, alert CV: Regular but tachy at times, mechanical heart sounds Pulm: CTAB Abd: soft, mild distention, +tender to deep palpation in left lower quadrant IR drain- insertion site above suprapubic region c/d/i- purulent, dark fluid in bulb Ext: moving all four Labs ok reviewed in eDH INR 1.9 PNC sensitive e.coli and entorococcus A: 62 yo male on anticoagulation 2/2 mechanical heart valve p/w chronic/recurrent hematoma of pelvis. Active bleeding from infected pseudoaneurysm embolized IR 01/24 and drain placed into infected hematoma. Continues to improve. Transfer to floor DC IV meds Continue IV antibiotics per ID recs Will resume warfarin Will order PICC for Tuesday placement - if blood cultures are negative. PT/OT I saw the patient with the resident on morning rounds. I agree with the above assessment and plan. * Rae Narvaez RN - 01/27/2013 8:15 AM EDT Nursing Progress Note Shift Events: 0800 - Pt aaox4, sitting up in bed eating breakfast. Pt aaox4. Denies pain at this time. 1000 - Central line removed as per urology request. Spoke with spouse Phylicia, she is very concerned regarding pt heart valve and coumadin. Notified urology team and requested a call to spouse. 1130 - Pt transferred to room 208a, Report given to Jurgen DELA CRUZ. Vital Signs: See doc flow sheet. Review of Systems: Neuro: AAOX4. Neuro checks remain stable. Respiratory: LS course throughout, RA. Encouraged IS. Cardiac: SR with noted valve click GI/: BS+, BM this am. Diallo cath in place, draining to gravity. Mild amount of leaking, urology aware. Integumentary: Skin intact except for incision sites, complete bath this am. Noted left sided SHAINA drain in place. Rt side groin site, dressing c/d/i. Mepilex boarder to sacral area. Plan: Encourage po intake. OOB to chair as tolerated. D/c central line as per urology team request. Recommendations: Transfer to floor as per urology team today. * Latanya Preciado RN - 01/27/2013 3:51 AM EDT Nursing Progress Note Shift Events: 2000 - VSS. Pt A&O x4. Arterial line d/c'd per MD. Dressing c/d/i. BP stable. 2200 - VSS. Pt resting in bed watching the news. Pt c/o increased reflux. MD Kylah Aponte notified and Nexium increased to BID with good effect. 0000 - VSS. Pt sleeping. 0200 - VSS. Pt sleeping. Desat to 80% while sleeping and pt placed on 2L NC. Pt states he has sleepapnea. 0400 - VSS. Pt sleeping. 0600 - VSS. Vital Signs: Last value Range last 12 hrs Temperature Temp: 37.3 ??C (99.1 ??F) Temp: [37.1 ??C (98.8 ??F)-37.3 ??C (99.1 ??F)] Heart Rate Heart Rate: 85 Heart Rate: [85-111] Blood Pressure BP: 121/73 mmHg BP: (120-123)/(73-78) Respiratory Rate Resp: 19 Resp: [19-22] SpO2 SpO2: 100 % SpO2: [80 %-100 %] Review of Systems: Neuro:A&O x4. Respiratory:LS coarse. Will encourage IS. Desat while sleeping and placed on 2L NC. On RA while awake 95-100% Cardiac:NSR GI/:Abd soft. LLQ SHAINA draining moderate amounts SS fluid. Diallo leaking around insertion site. Team aware. Draining pink, lee urine. Integumentary: SHAINA dressing c/d/i. Plan: Pain management Ambulate Pulmonary toilet Recommendations: Transfer to floor ? Sleep study as outpatient * Rae Narvaez RN - 01/26/2013 4:28 PM EDT Nursing Progress Note Shift Events: 1600 - Pt received from ICU. Physical therapy at bedside to work with pt. Pt aaox4, VSS. 1800 - Sitting up in bed, family at bedside. Pt tolerating po intake of regular diet well, denies nausea. Vital Signs: See flow sheet Review of Systems: Neuro: AAOx4. Respiratory: Course lung sounds bilaterally, pt states increased throughout the day. Encouraged useof IS and deep breathing. Educated on use of Thera pep, pt demonstrated understanding. Cardiac: SR/ST. Denies chest pain and pressure. GI/: Diallo in place draining to gravity, noted mild leaking around the cath, per report team a Integumentary: Skin intact, SHAINA drain to left lower abd. Mepilex boarder peeled back and new applied. Plan: Encourage po intake. Increase activity as tolerated. Recommendations: Increase diet to regular. D/C art line tomorrow if pressure remain stable overnight. * Brent Hurd, PT - 01/26/2013 3:46 PM EDT Physical Therapy Critical Care Referral received. eDH reviewed. Eval and Rx pending pt availability (transferring to ISCU at this time). Documentation to follow in eDH. Brent Hurd, PT [id number] * Presley Madrid MD - 01/26/2013 1:46 PM EDT UROLOGY DAILY PROGRESS NOTE Dillan Rodgers is a 62 y.o. 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 Developed sepsis on HD #1 now s/p IR angio embolization of internal iliac pseudoaneurysm and drain placement 24 hour interval events: No acute events. Has remained a febrile. Feeling improved everyday. DUGLAS weaned off yesterday afternoon Temp: [36.4 ??C (97.5 ??F)-38 ??C (100.4 ??F)] Heart Rate: [84-103] Resp: [16-26] BP: --110-130's/50-70's SpO2: [97 %-100 %] I/O last 3 completed shifts: In: 7487.1 [I.V.:7487.1] Out: 6040 [Urine:5735; Other:305] I/O this shift: In: 760 [I.V.:760] Out: 425 [Urine:425] NAD, awake, alert CV: Regular but tachy at times, mechanical heart sounds Pulm: CTAB Abd: soft, mild distention, +tender to deep palpation in left lower quadrant IR drain- insertion site above suprapubic region c/d/i- purulent, dark fluid in bulb Ext: Lower extremity edema (L>R) pitting bilaterally (increased from yesterday) Recent Labs Basename 01/26/13 1310 01/26/13 0150 01/25/13 1300 01/25/13 0115 WBC 11.6* 9.4 10.6* -- HGB 7.3* 7.0* 7.6* -- PLATELET 238 220 262 -- NA -- 140 142 138 CL -- 111* 111* 109* CO2 -- 23 19* 20* BUN -- 19 22* 26* CREATININE -- 1.38 1.58* 2.15* MAGNESIUM -- -- -- 0.65* INR -- 2.2* 2.6* 2.7* PTT -- 60* 58* 51* Blood Cxs: 01/24- Enterococcus, E.Coli- johnson sensitive Urine Cxs: 01/24- Enterococcus, E.Coli Body Fluid Cxs: 01/24- Enterococcus, E.Coli Blood Cxs 01/26: pending A: 62 yo male on anticoagulation 2/2 mechanical heart valve p/w chronic/recurrent hematoma of pelvis. Active bleeding from infected pseudoaneurysm embolized IR 01/24 and drain placed into infected hematoma. Now hemodynamically stable with resolving leukocytosis. P: Neuro: ORE FEEDER for pain control. Monitor mental status CV: hemodynamically stable. Off DUGLAS since yesterda ALEX preformed at bedside- no evidence of vegetation on valve, however do recommend TTE to fully exclude Goal INR with mechanical aortic valve- 2.5-3.5 Pulm: wean off 02, inhalers, IS GI: Regular diet Renal: MIVF, Cr bumped yesterday but is trending down. No need to renally dose drugs per pharmacy : Continue to closely monitor UO- urine clear with small amounts of blood Heme:INR 2.2 today. Goal for AVR-2.5-3.5. Will discuss when to restart anticoagulation Acute blood loss anemia- has received 3 units PRBC since admission. Hb seems stable and dilutional ID: ID consult placed- Unasyn for treatment of enterococcus and E.Coli- will continue to draw BC until negative Will need PICC placed Prophylaxis: SCDS, IVC filter, holding anticoagulation Dispo: ISCU status CLYDE RUIZ MD Attending Addendum: Patient seen and examined. Agree with plan as above. * Marisa Funk RD - 01/26/2013 9:01 AM EDT Nutrition Services Diagnosis: Patient Active Problem List Diagnoses Code ??? S/P prostatectomy V45.89 ??? Prostate cancer 185 ??? Postoperative hemorrhage 998.11 ??? S/P AVR (aortic valve replacement) V43.3 PMH:No past medical history on file. Patient has been NPO and/or on clear liquids for 4 days. If diet can not be advanced within 48 hours, please consider alternative means of nutrition support. * Jaime Berrios DO - 01/26/2013 8:15 AM EDT Interventional Radiology Inpatient- Progress Note ID: 62 yr old M patient, s/p robotic prostatectomy/LND approximately [address] scan demonstrated left sided pelvic hematoma with gas within the collection and a 2.2 cm contrast collection posteriorly, consistent with a pseudoaneurysm. He is s/p left superior gluteal artery branch pseudoaneurysm treated by left internal iliac artery embolization 01/24 and drainage catheter placement in left pelvic abscess 01/24. Interval History: The patient reports no johnson. His blood pressure was 114/58, MAP 65 and he no longer is requiring Levophed. He received 1 L of NS overnight Patient Active Problem List Diagnoses Code ??? S/P prostatectomy V45.89 ??? Prostate cancer 185 ??? Postoperative hemorrhage 998.11 ??? S/P AVR (aortic valve replacement) V43.3 Scheduled Meds: ??? vancomycin 1.25 g Intravenous Q12H ??? bolus IV fluid Intravenous Once ??? bolus IV fluid Intravenous Once ??? Vancomycin Level - MAR Order Reminder NOT APPLICABLE Once ??? bolus IV fluid Intravenous Once ??? bolus IV fluid Intravenous Once ??? DISCONTD: bolus IV fluid Intravenous Once ??? piperacillin-tazobactam 3.375 g Intravenous Q8H ??? sodium chloride 0.9 % 5 mL Intravenous Q12H ??? chlorhexidine 15 mL Oral Q12H REI ??? DISCONTD: vancomycin 750 mg Intravenous Q12H ??? fluticasone-salmeterol 1 puff Inhalation Q12H ??? levothyroxine 50 mcg Oral Daily ??? montelukast 10 mg Oral Nightly ??? sodium chloride 0.9 % 5 mL Intravenous Q12H ??? esomeprazole 40 mg Oral Daily Or ??? esomeprazole 40 mg Intravenous Daily ??? docusate sodium 100 mg Oral BID Continuous Infusions: ??? sodium chloride 0.9% 10 mL/hr (01/25/13 1800) ??? sodium chloride 0.9% 10 mL/hr (01/25/13 0730) ??? sodium chloride 0.9% 10 mL/hr (01/25/13 1800) ??? NORepinephrine Stopped (01/25/13 1800) ??? HYDROmorphone ??? ORE FEEDER capps ??? sodium chloride 0.9% 150 mL/hr (01/26/13 0753) PRN Meds:.HYDROmorphone, sodium chloride 0.9%, diphenhydrAMINE, ondansetron, ondansetron, DISCONTD:Vancomycin Level - MAR Order Reminder, naloxone Physical Exam: Last value Range last 24 hrs Temperature Temp: 36.8 ??C (98.2 ??F) Temp: [36.4 ??C (97.5 ??F)-38 ??C (100.4 ??F)] Heart Rate Heart Rate: 88 Heart Rate: [88-103] Blood Pressure BP: 101/52 mmHg BP: -- Respiratory Rate Resp: 17 Resp: [16-26] SpO2 SpO2: 99 % SpO2: [97 %-100 %] I/O last 3 completed shifts: In: 7487.1 [I.V.:7487.1] Out: 6040 [Urine:5735; Other:305] A/P: A/P: 62 yr old male patient, s/p robotic prostatectomy/LND with CT scan demonstrated left sided pelvic hematoma and pseudoaneurysm. He is s/p left superior gluteal artery branch pseudoaneurysm treated by left internal iliac artery embolization 01/24 and drainage catheter placement in left pelvic abscess 01/24. The abscess drainage catheter output was 258 ml. He no longer requires Levophed. Plan: 1. Continue to flush drainage catheter 5 cc q 8 hrs, and record outputs. 2. Observe for continued hemorrhage. If has signs of continued hemorrhage, consider re-angio/embolization. If he remains stable a follow-up CT should be obtained in 3 weeks. * Dora Talavera, PharmD - 01/26/2013 12:08 AM EDT Clinical Pharmacist Note-Vanc Dillan Rodgers [id number] 1950 Dillan Rodgers is a 62 y.o. male who began antibiotic therapy which includes intravenous vancomycin. Today is day 2 of treatment. Based on a review of the patient???s chart and/or conversation with the patient???s providers vancomycin 750 mg every 12 hours is being used for empiric coverage of GPC bacteremia with a targeted goal of 15 - 20 mcg/mL. The following Pharmacokinetic data has been evaluated: Wt Readings from Last 1 Encounters: 01/23/13 99.2 kg (218 lb 11.1 oz) Ht Readings from Last 1 Encounters: 01/23/13 172.7 cm (5' 8) Vanc Trough (mg/L) Date Value 01/25/2013 10.1 Creatinine (mg/dL) Date Value 01/25/2013 1.58* Estimated Creatinine Clearance: 55.3 ml/min (based on Cr of 1.58). (Cockcroft & Gault calculation) After a review of this information the following pharmacokinetic parameters have been estimated: Half-Life (T1/2) = 11 hours Elimination rate (Ke) = 0.0635 hr-1 Volume of distribution (Vd) = 65 Liters Dosing recommendations: Based on this information a dose of 1250 mg every 12 hours, to start at 08:00 (time) on 01/26/2013 should achieve an estimated trough level of 15 - 20 mcg/mL. Monitoring recommendations: A new steady state level should be achieved after 4 half-lives. I suggest rechecking a vancomycin trough level (30 minutes prior to a scheduled dose) at 07:30 (time) on 01/28/2013. We will continue to monitor the patient as long as he/she remains on vancomycin therapy. Please watch SCr, BUN and fluid status closely. Please page the care area pharmacist with any questions you may have. Alternately, during off-hours you may call [phone] to contact a pharmacist. DORA TALAVERA PHARMD Pager [phone] * Larissa Rios RN - 01/25/2013 3:17 PM EDT Office of Care Management (OCM) / Clinical [employer] (CRC)/ Initial Assessment Discussed patient with Provider Team and in multidisciplinary discharge-planning rounds. Reviewed record and interviewed patient. Introduced/reviewed CRC role and services accepted. REASON for HOSPITALIZATION: Postoperative hemorrhage Mr Rodgers presented to an OSH with complaints of acute onset hip pain. While at the OSH he was febrile with temp to 39C. He was transferred for further management of a possible pelvic abscess vs IVC filter thrombus. He was originally admitted to 3E. A CT scan revealed a left pelvic hematoma with fluid collection and possible pseudoaneurysm. He was taken to IR and is s/p angiography with embolization and CT guided drainage of an infected hematoma. Post procedure he became hypotensive with a lactate of 4.1, and was transferred to the ICU for further management. PMH: See list in eDH. Notable for prostate cancer s/p prostatectomy 11/20/12 with a post op course complicated by hematuria and a LLE DVT with IVC filter placement 12/2012, and a metal aortic valve on coumadin. PREVIOUS FUNCTIONAL STATUS: Independent, employed. CURRENT STATUS: Awake, alert, and oriented. Supplemental O2 via nasal cannula, using IS. Levophed infusing to maintain BP within desired parameters. Dilaudid ORE FEEDER in place for pain management. Currentlactate 1.1, WBC trending down, currently afebrile. Central line, arterial line, abdominal drain, and diallo catheter in place. SOCIAL / FAMILY SUPPORTS: Lives with , Jade (RN), in [place], [place]. ADVANCE DIRECTIVES: None on file. HEALTH /PRESCRIPTION COVERAGE: GRT WST PPO [employer] CURRENT HOME/COMMUNITY SERVICES/EQUIPMENT: None [employer] REFERRAL: No acute needs identified at this time. [employer] available for Support/Financial/Medication Assistance should needs develop. PRIMARY CARE PHYSICIAN: FARNAZ PATEL MD [address] / [facility] [address] POTENTIAL DISCHARGE NEEDS: Unable to determine at this time. 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 He states that with past hospitalizations he has not needed services at discharge and that his has been able to assist with his care as needed. PATIENT/FAMILY EDUCATION NEEDS: Educated as to CRC role and hospital course, questions answered; verbalized understanding. Reports being updated by MDs and understanding current plan of care. ANTICIPATED BARRIERS TO DISCHARGE: None identified at this time. TRANSPORTATION @ D/C: Likely home with in private car. PLAN: CRC will continue to monitor progress, follow for continuity of care and assist with discharge planning while hospitalized LARISSA RIOS RN * Presley Madrid MD - 01/25/2013 9:54 AM EDT UROLOGY DAILY PROGRESS NOTE Dillan Rodgers is a 62 y.o. 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 who is s/p robotic prostatectomy on November 20 for high risk prostate cancer complicated by pelvic hematoma and DVT p/w leg pain and edema and evidence of pelvic hematoma on CT scan 24 hour interval events: Rigors, fevers and tachycardic yesterday morning consistent with SIRS response Received 5 units FFP, 2 units PRBC and many fluid boluses for resuscitation Transferred to ISCU then ICU Underwent IR embolization of actively bleeding pseudoaneurysm and drain placement into pelvic hematoma/abscess Blood cxs positive after 12 hours Has remained on DUGLAS since IR procedure Patient feels much improved this AM. Was afebrile overnight. Temp: [36.1 ??C (97 ??F)-40.8 ??C (105.4 ??F)] Heart Rate: [85-167] Resp: [13-32] BP: (79-153)/(43-92) SpO2: [87 %-100 %] DUGLAS 10 I/O last 3 completed shifts: In: 79571.3 [I.V.:9249; Blood:1063.3; Other:547] Out: 2970 [Urine:2920; Other:50] I/O this shift: In: 1091.1 [I.V.:1091.1] Out: 340 [Urine:340] NAD, awake, alert CV: Regular but tachy at times, mechanical heart sounds Pulm: CTAB Abd: soft, mild distention, +tender to deep palpation in left lower quadrant IR drain- insertion site above suprapubic region c/d/i- purulent, dark fluid in bulb Ext: Lower extremity edema (L>R) pitting bilaterally (increased from yesterday) Recent Labs Basename 01/25/13 0115 01/24/13 1740 01/24/13 1400 01/24/13 0008 WBC 12.2* 10.9* 3.6* -- HGB 7.6* 8.6* 6.5* -- PLATELET 240 246 221 -- NA 138 138 -- 136 CL 109* 107 -- 105 CO2 20* 18* -- 19* BUN 26* 28* -- 22* CREATININE 2.15* 2.86* -- 1.45 MAGNESIUM 0.65* -- -- -- INR 2.7* 2.1* -- 3.0* PTT 51* 46* -- 72* A: 62 yo male on anticoagulation 2/2 mechanical heart valve p/w chronic/recurrent hematoma of pelvis. Active bleeding from infected pseudoaneurysm embolized yesterday in IR and drain placed into infected hematoma. Patient became septic yesterday and was well resuscitated. Continues to receive IVF boluses and is actively being weaned off DUGLAS P: Neuro: ORE FEEDER for pain control. Monitor mental status in setting of sepsis CV: Becoming more stable. Continue wean off DUGLAS- IVF boluses as needed Cards consult for possible need for ALEX in setting of mechanical heart valve and + blood cultures Pulm: wean off 02, inhalers GI: NPO until decided if patient needs ALEX- clears to regular otherwise Renal: MIVF, Cr bumped yesterday but is trending down. No need to renally dose drugs per pharmacy : Continue to closely monitor UO- urine clear with no signs of bleeding Heme: INR 2.7 after receiving 5 units FFP. No need to reverse as of now as bleeding is controlled but will have low threshold if patient becomes unstable again. Acute blood loss anemia- has received 3 units PRBC since admission. Hb seems stable and 1 gram dropthis morning likely secondary to IVF boluses and resuscitation. Will repeat in afternoon and trend ID: continue vanco and zosyn- Enterococcus and GNRS from blood and fluid cultures Will place ID consult in future for advice on ABX length of treatment Prophylaxis: SCS, IVC filter, holding anticoagulation Dispo: ICU status CLYDE RUIZ MD Attending Addendum: Patient seen and examined. Agree with plan as above. * Ermias Moya MD - 01/25/2013 8:39 AM EDT Interventional Radiology Inpatient- Progress Note ID: 62 yr old M patient, s/p robotic prostatectomy/LND approximately [address] scan demonstrated left sided pelvic hematoma with gas within the collection and a 2.2 cm contrast collection posteriorly, consistent with a pseudoaneurysm. He is s/p left superior gluteal artery branch pseudoaneurysm treated by left internal iliac artery embolization 01/24 and drainage catheter placement in left pelvic abscess 01/24. Interval History: The patient did not require overnight transfusion although he did receive 3 L of LR and remains on Levophed. His blood pressure this morning was 105/38 and his hemoglobin was 7.6. Patient Active Problem List Diagnoses Code ??? S/P prostatectomy V45.89 ??? Prostate cancer 185 ??? Postoperative hemorrhage 998.11 ??? S/P AVR (aortic valve replacement) V43.3 Scheduled Meds: ??? bolus IV fluid Intravenous Once ??? bolus IV fluid Intravenous Once ??? DISCONTD: bolus IV fluid Intravenous Once ??? vancomycin 750 mg Intravenous Q12H ??? bolus IV fluid Intravenous Once ??? piperacillin-tazobactam 3.375 g Intravenous Q8H ??? acetaminophen 1,000 mg Oral Once ??? sodium chloride 0.9 % 5 mL Intravenous Q12H ??? chlorhexidine 15 mL Oral Q12H REI ??? bolus IV fluid Intravenous Once ??? bolus IV fluid Intravenous Once ??? fentaNYL (PF) 50 mcg Intravenous Once ??? bolus IV fluid Intravenous Once ??? DISCONTD: ampicillin-sulbactam 1.5 g Intravenous Once ??? DISCONTD: vancomycin 1 g Intravenous Q12H ??? DISCONTD: piperacillin-tazobactam 3.375 g Intravenous Q12H ??? fluticasone-salmeterol 1 puff Inhalation Q12H ??? levothyroxine 50 mcg Oral Daily ??? montelukast 10 mg Oral Nightly ??? sodium chloride 0.9 % 5 mL Intravenous Q12H ??? esomeprazole 40 mg Oral Daily Or ??? esomeprazole 40 mg Intravenous Daily ??? docusate sodium 100 mg Oral BID Continuous Infusions: ??? sodium chloride 0.9% 10 mL/hr (01/24/139) ??? sodium chloride 0.9% 10 mL/hr (01/24/13 2140) ??? NORepinephrine 40 mcg/min (01/24/13 1647) ??? sodium chloride 0.9% ??? NORepinephrine 10 mcg/min (01/25/13 0600) ??? HYDROmorphone ??? ORE FEEDER capps ??? DISCONTD: PHENYLephrine Stopped (01/24/13 1630) ??? sodium chloride 0.9% 10 mL/hr (01/24/13 1845) PRN Meds:.Vancomycin Level - MAR Order Reminder, HYDROmorphone, iohexol, sodium chloride 0.9%, diphenhydrAMINE, ondansetron, ondansetron, DISCONTD: fentaNYL (PF), DISCONTD: midazolam, DISCONTD: Vancomycin Level - MAR Order Reminder, naloxone, DISCONTD: cyclobenzaprine, DISCONTD: hydroCODone-acetaminophen Physical Exam: Skin: Pelvic abscess drainage catheter site clean, dry and intact. Last value Range last 24 hrs Temperature Temp: 36.9 ??C (98.4 ??F) Temp: [36.1 ??C (97 ??F)-40.8 ??C (105.4 ??F)] Heart Rate Heart Rate: 102 Heart Rate: [85-167] Blood Pressure BP: 101/52 mmHg BP: (79-153)/(43-92) Respiratory Rate Resp: 20 Resp: [13-32] SpO2 SpO2: 99 % SpO2: [87 %-100 %] I/O last 3 completed shifts: In: 80568.3 [I.V.:9249; Blood:1063.3; Other:547] Out: 2970 [Urine:2920; Other:50] I/O this shift: In: 91.1 [I.V.:91.1] Out: 340 [Urine:340] A/P: 62 yr old male patient, s/p robotic prostatectomy/LND with CT scan demonstrated left sided pelvic hematoma and pseudoaneurysm. He is s/p left superior gluteal artery branch pseudoaneurysm treated by left internal iliac artery embolization 01/24 and drainage catheter placement in left pelvic abscess 01/24. The abscess drainage catheter output was 50 ml. His blood pressure is 105/38 with Levophed with no units transfused overnight. Plan: continue to flush drainage catheter 5 cc q 8 hrs, and record outputs. Observe for continued hemorrhage; as embolization was with gelfoam only (due to considerations of foreign body in infected site), patient remains at some risk for recanalization of false aneurysm. Ifremains stable, recommend repeat contrast CT in 3 weeks. If has signs of continued hemorrhage, consider re-angio/embo. * Austin Beard RN - 01/24/2013 6:40 PM EDT Pt returned from angio/ct at 1800; vital signs stable on 30 mcg Levophed, currently running througha peripheral line; MD at bedside discussing central line consent with patient; pt is alert, oriented, states his pain is a 3/10 from a recent iv push of fentanyl; pt received the final 3 units FFP while off the unit, in addition to 2 units blood and 3 liters fluid bolus, per RN report. At the time of this note, an additional liter of NS just finished bolusing for low BP; Physicians attempting IJ central access at this time; Phylicia has been updated on today's findings, including the embolization and CT-guided drainage procedures; all questions have been answered at this time; Pt remains on30 mcg Levophed * Julius Servin MD - 01/24/2013 1:35 PM EDT Addendum: The patient's history and physical exam have been reviewed and completed. There has been no interval change from that of the pre-operative history and physical exam done within the last 30 days. Risks (including hemorrhage, infection, allergic reaction, occlusion, respiratory depression), and benefits discussed and patient consented to the procedure. Physical Exam Heart: RRR Lungs: clear ASA Classification: ASA 2 - Patient with mild systemic disease with no functional limitations Mallampati Classification: I (soft palate, uvula, fauces, tonsillar pillars visible) * Belen Valle RN - 01/24/2013 1:31 PM EDT Pt known to me from multiple hospitalizations and surgery. He is now being transferred to ICU for temp 105, and probable infected hematoma He has had hematuria and clot formation, DVT and IVC filter placed at prior admissions. He has a mechanical heart valve.. to be notified by MD.Unstable status at this time. BELEN VALLE RN01/24/2013 * Reina Dey RN - 01/24/2013 8:46 AM EDT [facility] NURSING DATABASE Name: DILLAN RODGERS Date of : 1950 AGE 62 y.o. Address: [address] [place] [id number] (home) [phone] (work) Mobile: Telephone Information: Referring Provider: Abby Cummins Reason for Visit: pelvic hematoma, ? active extrav Exam/Procedure requested: angio of pelvic vessels, possible intervention Is the patient on anticoagulant / anitplatelet therapy ? Coumadin No Known Allergies Pertinent PMH: Patient Active Problem List Diagnoses Code ??? S/P prostatectomy V45.89 ??? Prostate cancer 185 No past medical history on file. Pertinent PSH: Past Surgical History Procedure Date ??? Lap, prostatectomy, radical, w/nerve spare 11/20/2012 @LAPAROSCOPIC PROSTATECTOMY, ROBOTICS ASSISTED performed by Presley Madrid MD at [facility] MAIN OR ??? Lap, pelvic lymphadenectomy 11/20/2012 LAPAROSCOPY,WITH BILATERAL TOTAL PELVIC LYMPHADENECTOMY, ROBOTIC performed by Presley Madrid MD at [facility] MAIN OR ? ? Cystourethroscopy w/irrig & evac clots 12/27/2012 CYSTO, IRRIGATION & EVACUATION OF CLOTS performed by Presley Madrid MD at [facility] MAIN OR Date/Procedure Comments: 01/24/13 No data in CIS 01-04-13 IVC filter Versed 2.5 mg iv, fentanyl 125 mcg iv, ancef 1 gram iv 01/24/2013 Pelvic embolization and then CT guided pelvic drain placement Fentanyl 125 mcg/iv duglas gttstarted (patient changed to ICU status mid-case), 2 UNITS ffp, 2 UNITS rbcS, fluid bolus then Levo started by PRINCIPAL ASSOCIATE Laboratory Results: Lab Results Component Value Date INR 3.0* 01/24/2013 Lab Results Component Value Date PT 32.0* 01/24/2013 PTT 72* 01/24/2013 Lab Results Component Value Date BUN 22* 01/24/2013 Lab Results Component Value Date CREATININE 1.45 01/24/2013 Lab Results Component Value Date K 3.8 01/24/2013 Lab Results Component Value Date PLATELET 316 01/24/2013 Medications: Prior to Admission medications Medication Sig Start Date End Date Taking? Authorizing Provider cyclobenzaprine (FLEXERIL) 5 mg tablet Take 1 [...] has been informed that they require a [employer]dl company driver to drive them home after this procedure. In the absence of a [employer] company driver, IR will not be able to perform this procedureand will need to reschedule. Pt verbalized understanding of these instructions during the pre-procedure education via phone. * Jim Martell MD - 01/24/2013 8:16 AM EDT IR Pre-procedure Note Age: 62 y.o. M Referring MD: Presley Madrid MD ([facility]- Urology) Planned Procedure: Pelvic angiogram, possible left internal iliac artery embolization Indication: Pelvic hematoma, likely pseudoaneurysm HPI: 62 yr old M patient, s/p robotic prostatectomy/LND approximately 2 months ago. Post-op course was notable for pelvic hematoma. 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 Most recently, he presented to an outside hospital with bilateral hip pain and fever. He was subsequently transferred to [facility]. CECT scan demonstrated left sided pelvic hematoma, displacing the bladder to the right and the external iliac artery anteriorly. There is gas within the collection. There is also a 2.2 -2.4 cm round contrast collection posteriorly, likely representing a pseudoaneurysm. Angiography and embolization is requested. The patient's INR is 3.0 and he will require FFP to lower his INR to the 1.8-2.0 range. This was discussed with the urology service. Past medical/surgical history: S/p aortic valve repair Prostate Ca (as above) LE DVT, IVC filter placed 3 weeks ago NKDA No current facility-administered medications on file prior to encounter. Current Outpatient Prescriptions on File Prior to Encounter Medication Sig Dispense Refill ??? cyclobenzaprine (FLEXERIL) 5 mg tablet Take [...] tablet Take 50 mcg by mouth daily. Labs: Lab Results Component Value Date WBC 12.3* 01/24/2013 HGB 7.5* 01/24/2013 HCT 25.6* 01/24/2013 MCV 92.1* 01/24/2013 Platelet count = 316,000 Recent Labs Basename 01/24/13 0008 INR 3.0* Lab Results Component Value Date CREATININE 1.45 01/24/2013 Imaging: CECT as above Plan: Embolization planned for today; the pelvic collection can be drained or Tuesday in CT. Medications to discontinue- None Prophylactic abx- Should receive broad spectrum antibiotics prior to and following the procedure Access site/position- Supine, R HARBOR PILOT access * Presley Madrid MD - 01/24/2013 8:14 AM EDT UROLOGY DAILY PROGRESS NOTE Dillan Rodgers is a 62 y.o. 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 who is s/p robotic prostatectomy on November 20 for high risk prostate cancer complicated by pelvic hematoma and DVT p/w leg pain and edema and evidence of pelvic hematoma on CT scan 24 hour interval events: Patient admitted overnight Remained hemodynamically stable Received 1 unit PRBCs for Hb of 6.5- appropriately increased to 7.5 CT scan obtained which reveals large LEFT ileopsoas hematoma with possible extrav of contrast. Fluid collection increased in size from previous CT scan. +small foci of air- possible infection Patient feels OK this morning. Have pain in bilateral hips and left lower extremity. + abdominal pain in LLQ. NO CP or SOB Unable to urinate but leaking urine- nursing staff has been bladder scanning Temp: [36.8 ??C (98.2 ??F)-36.9 ??C (98.4 ??F)] Heart Rate: [98-105] Resp: [15-20] BP: (107-122)/(61-76) SpO2: [98 %-100 %] I/O last 3 completed shifts: In: 728.3 [I.V.:365; Blood:363.3] Out: - NAD, awake, alert CV: RRR, mechanical heart sounds Pulm: CTAB Abd: soft, mild distention, +tender to deep palpation in left lower quadrant Ext: Lower extremity edema (L>R) pitting bilaterally Recent Labs Basename 01/24/13 0602 01/24/13 0008 01/22/13 1552 WBC 12.3* 12.8* 10.1* HGB 7.5* 6.5* 7.6* PLATELET 316 255 322 NA -- 136 -- CL -- 105 -- CO2 -- 19* -- BUN -- 22* -- CREATININE -- 1.45 -- MAGNESIUM -- -- -- INR -- 3.0* 2.6* PTT -- 72* 56* A: 62 yo male on anticoagulation 2/2 mechanical heart valve p/w chronic/recurrent hematoma of pelvis. Questionable active bleeding into hematoma vs. Infected collection. Plan for IR angio today to assess for active bleeding. Possible drain placement P: Neuro: Vicodine, IV dilaudid if need for pain control CV: Closely monitor hemdynamics Pulm: no active issues, home inhalers GI: NPO Renal: MIVF, Cr stable : Continue to closely monitor UO and bladder scans- if bladder volume >400cc consider diallo placement Heme: INR 3 on admission labs- give FFP- recheck this afternoon Hb stable at 7.5 after 1 unit PRBC- continue to trend Prophylaxis: SCS, IVC filter, holding anticoagulation Dispo: Floor status CLYDE RUIZ MD Attending Addendum: Patient seen and examined. Agree with plan as above. Interval events - fever, rigors --> pancx'd, repeat labs showing wbc 1.7, vanco/zosyn started, diallo placed - IR for angiography of possible intl iliac pseudoaneurysm, percutaneous drain of pelvic collection documented in this encounter H&P Notes * Lesly Hope MD - 01/26/2013 7:38 AM EDT [facility] STAFF PROGRESS/ADMISSION NOTE Critical Care Medicine Author: LESLY HOPE MD Patient seen and examined on critical care rounds with resident staff. Dillan Rodgers is a 62 y.o. 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 His course was complicated by a pelvic hematoma which became infected with Ecoli and enterococcus. He was taken to IR on 01/24 for drain after embolization of superior gluteal branch false aneurysm. Since he was hypotensive requiring norepinephrine for BP support, he was transferred to the ICU post procedure. PMH is significant for prostate CA, S/P mechanical AVR, hypothyroidism, otherwise negative. He is chronically anticoagulated for AVR and his INR is 3.0. His lactate is down to normal. His INR is 2.2. His blood cultures are positive Ecoli and enterococci. We will maintain his blood pressure with vasopressors. We will keep him NPO/IVF for now and hold further anticoagulation. We will culture his blood and urine. Pelvic abcess cultures are pending. Wewill treat his infection with broad spectrum antibiotics pending culture results. He is still on low dose vasopressors. ALEX 01/25 shows there is no echocardiographic evidence of endocarditis. We will transfer him to the [facility] today. . EXAM: Last value Range last 12 hrs Temperature Temp: 36.8 ??C (98.2 ??F) Temp: [36.4 ??C (97.5 ??F)-37.3 ??C (99.1 ??F)] Heart Rate Heart Rate: 88 Heart Rate: [88-103] Blood Pressure BP: 101/52 mmHg Respiratory Rate Resp: 17 Resp: [16-23] SpO2 SpO2: 99 % SpO2: [97 %-100 %] General Not Intubated, not sedated awake and alert. Heart RRR, no m/g/r Lungs Coarse breath sounds b/l Abdomen Soft, nontender. +/- bowel sounds. Skin No skin lesions noted Extremities Warm, No edema, 2+ peripheral pulses I/O last 3 completed shifts: In: 7487.1 [I.V.:7487.1] Out: 6040 [Urine:5735; Other:305] Lab Results Component Value Date WBC 9.4 01/26/2013 RBC 2.56* 01/26/2013 HGB 7.0* 01/26/2013 HCT 22.2* 01/26/2013 MCV 86.7 01/26/2013 MCH 27.3 01/26/2013 MCHC 31.5* 01/26/2013 PLATELET 220 01/26/2013 RDWCV 19.8* 01/26/2013 Lab Results Component Value Date Sodium 140 01/26/2013 Potassium 3.5 01/26/2013 Chloride 111* 01/26/2013 CO2 23 01/26/2013 BUN 19 01/26/2013 Creatinine 1.38 01/26/2013 Coags Lab Results Component Value Date INR 2.2* 01/26/2013 PT 25.6* 01/26/2013 PTT 60* 01/26/2013 CURRENT MEDS: ??? vancomycin 1.25 g Intravenous Q12H ??? bolus IV fluid Intravenous Once ??? bolus IV fluid Intravenous Once ??? Vancomycin Level - MAR Order Reminder NOT APPLICABLE Once ??? bolus IV fluid Intravenous Once ??? bolus IV fluid Intravenous Once ??? DISCONTD: bolus IV fluid Intravenous Once ??? piperacillin-tazobactam 3.375 g Intravenous Q8H ??? sodium chloride 0.9 % 5 mL Intravenous Q12H ??? chlorhexidine 15 mL Oral Q12H REI ??? DISCONTD: vancomycin 750 mg Intravenous Q12H ??? fluticasone-salmeterol 1 puff Inhalation Q12H ??? levothyroxine 50 mcg Oral Daily ??? montelukast 10 mg Oral Nightly ??? sodium chloride 0.9 % 5 mL Intravenous Q12H ??? esomeprazole 40 mg Oral Daily Or ??? esomeprazole 40 mg Intravenous Daily ??? docusate sodium 100 mg Oral BID IS PATIENT CRITICALLY ILL ? Is there a high potential of sudden, clinically significant, or life threatening deterioration? No Is there a need for direct personal assessment and management to treat/prevent multiple vital organfailure/deterioration? No PATIENT IS CRITICALLY ILL WITH THESE DIAGNOSES BEING MANAGED BY [facility] TEAM: Sepsis TIME spent on the unit excluding procedures: NA LESLY HOPE MD 01/26/2013 * Lesly Hope MD - 01/25/2013 7:28 AM EDT [facility] STAFF PROGRESS/ADMISSION NOTE Critical Care Medicine Author: LESLY HOPE MD Patient seen and examined on critical care rounds with resident staff. Dillan Rodgers is a 62 y.o. 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 Post-op course was notable for pelvic hematoma. He has been anticoagulated for his mechanical aortic valve and a LE DVT. He was seen in clinic on 01/22 at which point in time he was doing fairly well although he did report recurrent hematuria. On 01/23 he states he woke up with terrible right hip pain and left lower leg pain which took himto the hospital. He had a temp to 39 there and got IV Cipro. He was transferred to [facility] for furtherworkup and management. CECT scan demonstrated left sided pelvic hematoma, with loculation and gas within the collection. He was taken to IR on 01/24 for drain after embolization of superior gluteal branch false aneurysm. Since he was hypotensive requiring norepinephrine for BP support, he was transferred to the ICU post procedure. PMH is significant for prostate CA, S/P mechanical AVR, hypothyroidism, otherwise negative. He is chronically anticoagulated for AVR and his INR is 3.0. His lactate is down to normal today. His INR is 2.2. His blood cultures are positive for g(-) rods and g(+) cocci. We will maintain his blood pressure with vasopressors. We will keep him NPO/IVF for now and hold further anticoagulation. We will culture his blood and urine. Pelvic abcess cultures are pending. We will treat his infection with broad spectrum antibiotics pending culture results. He is still on low dose vasopressors. WE will obtain a cardioogy consult ? Endocarditis. EXAM: Last value Range last 12 hrs Temperature Temp: 36.7 ??C (98.1 ??F) Temp: [36.1 ??C (97 ??F)-37.4 ??C (99.3 ??F)] Heart Rate Heart Rate: 100 Heart Rate: [85-100] Blood Pressure BP: 101/52 mmHg Respiratory Rate Resp: 17 Resp: [14-18] SpO2 SpO2: 95 % SpO2: [94 %-96 %] General Not Intubated, not sedated awake and alert. Heart RRR, no m/g/r Lungs Coarse breath sounds b/l Abdomen Soft, nontender. +/- bowel sounds. Skin No skin lesions noted Extremities Warm, No edema, 2+ peripheral pulses I/O last 3 completed shifts: In: 57679.3 [I.V.:9249; Blood:1063.3; Other:547] Out: 2970 [Urine:2920; Other:50] Lab Results Component Value Date WBC 12.2* 01/25/2013 RBC 2.78* 01/25/2013 HGB 7.6* 01/25/2013 HCT 24.4* 01/25/2013 MCV 87.8 01/25/2013 MCH 27.3 01/25/2013 MCHC 31.1* 01/25/2013 PLATELET 240 01/25/2013 RDWCV 19.3* 01/25/2013 Lab Results Component Value Date Sodium 138 01/25/2013 Potassium 4.5 01/25/2013 Chloride 109* 01/25/2013 CO2 20* 01/25/2013 BUN 26* 01/25/2013 Creatinine 2.15* 01/25/2013 Glucose Lvl 114 01/24/2013 Coags Lab Results Component Value Date INR 2.7* 01/25/2013 PT 29.4* 01/25/2013 PTT 51* 01/25/2013 CURRENT MEDS: ??? bolus IV fluid Intravenous Once ??? vancomycin 750 mg Intravenous Q12H ??? bolus IV fluid Intravenous Once ??? piperacillin-tazobactam 3.375 g Intravenous Q8H ??? acetaminophen 1,000 mg Oral Once ??? sodium chloride 0.9 % 5 mL Intravenous Q12H ??? chlorhexidine 15 mL Oral Q12H REI ??? bolus IV fluid Intravenous Once ??? bolus IV fluid Intravenous Once ??? fentaNYL (PF) 50 mcg Intravenous Once ??? bolus IV fluid Intravenous Once ??? DISCONTD: ampicillin-sulbactam 1.5 g Intravenous Once ??? DISCONTD: vancomycin 1 g Intravenous Q12H ??? DISCONTD: piperacillin-tazobactam 3.375 g Intravenous Q12H ??? fluticasone-salmeterol 1 puff Inhalation Q12H ??? levothyroxine 50 mcg Oral Daily ??? montelukast 10 mg Oral Nightly ??? sodium chloride 0.9 % 5 mL Intravenous Q12H ??? esomeprazole 40 mg Oral Daily Or ??? esomeprazole 40 mg Intravenous Daily ??? docusate sodium 100 mg Oral BID IS PATIENT CRITICALLY ILL ? Is there a high potential of sudden, clinically significant, or life threatening deterioration? No Is there a need for direct personal assessment and management to treat/prevent multiple vital organfailure/deterioration? No PATIENT IS CRITICALLY ILL WITH THESE DIAGNOSES BEING MANAGED BY [facility] TEAM: Sepsis TIME spent on the unit excluding procedures: NA LESLY HOPE MD 01/25/2013 * Lesly Hope MD - 01/24/2013 6:40 PM EDT [facility] STAFF PROGRESS/ADMISSION NOTE Critical Care Medicine Author: LESLY HOPE MD Patient seen and examined on critical care rounds with resident staff. Dillan Rodgers is a 62 y.o. 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 Post-op course was notable for pelvic hematoma. He has been anticoagulated for his mechanical aortic valve and a LE DVT. He was seen in clinic on 01/22 at which point in time he was doing fairly well although he did report recurrent hematuria. On 01/23 he states he woke up with terrible right hip pain and left lower leg pain which took himto the hospital. He had a temp to 39 there and got IV Cipro. He was transferred to [facility] for furtherworkup and management. CECT scan demonstrated left sided pelvic hematoma, with loculation and gas within the collection. He was taken to IR on 01/24 for drain after embolization of superior gluteal branch false aneurysm. Since he was hypotensive requiring norepinephrine for BP support, he was transferred to the ICU post procedure. PMH is significant for prostate CA, S/P mechanical AVR, hypothyroidism, otherwise negative. He is chronically anticoagulated for AVR and his INR is 3.0. We will admit him to [facility] for further treatment. We will maintain his blood pressure with vasopressors. We will keep him NPO/IVF for now and hold further anticoagulation. We will culture his blood andurine. Pelvic abcess cultures are pending. We will treat his infection with broad spectrum antibiotics pending culture results. EXAM: Last value Range last 12 hrs Temperature Temp: 37.2 ??C (99 ??F) Temp: [36.1 ??C (97 ??F)-40.7 ??C (105.3 ??F)] Heart Rate Heart Rate: 103 Heart Rate: [94-167] Blood Pressure BP: 90/58 mmHg BP: (90-153)/(43-92) Respiratory Rate Resp: 19 Resp: [13-32] SpO2 SpO2: 98 % SpO2: [87 %-100 %] General Not Intubated, not sedated awake. Heart RRR, no m/g/r Lungs Coarse breath sounds b/l Abdomen Soft, nontender. +/- bowel sounds. Skin No skin lesions noted Extremities Warm, No edema, 2+ peripheral pulses I/O last 3 completed shifts: In: 728.3 [I.V.:365; Blood:363.3] Out: - I/O this shift: In: 5853 [I.V.:4606; Blood:700; Other:547] Out: 70 [Urine:70] Lab Results Component Value Date WBC 3.6* 01/24/2013 RBC 2.41* 01/24/2013 HGB 6.5* 01/24/2013 HCT 21.8* 01/24/2013 MCV 90.5 01/24/2013 MCH 27.0 01/24/2013 MCHC 29.8* 01/24/2013 PLATELET 221 01/24/2013 RDWCV 18.9* 01/24/2013 Lab Results Component Value Date Sodium 136 01/24/2013 Potassium 3.8 01/24/2013 Chloride 105 01/24/2013 CO2 19* 01/24/2013 BUN 22* 01/24/2013 Creatinine 1.45 01/24/2013 Glucose Lvl 105 01/24/2013 Coags Lab Results Component Value Date INR 3.0* 01/24/2013 PT 32.0* 01/24/2013 PTT 72* 01/24/2013 CURRENT MEDS: ??? HYDROmorphone 0.4 mg Intravenous Once ??? ampicillin-sulbactam 1.5 g Intravenous Once ??? vancomycin 750 mg Intravenous Q12H ??? bolus IV fluid Intravenous Once ??? piperacillin-tazobactam 3.375 g Intravenous Q8H ??? acetaminophen 1,000 mg Oral Once ??? sodium chloride 0.9 % 5 mL Intravenous Q12H ??? chlorhexidine 15 mL Oral Q12H REI ??? DISCONTD: vancomycin 1 g Intravenous Q12H ??? DISCONTD: piperacillin-tazobactam 3.375 g Intravenous Q12H ??? fluticasone-salmeterol 1 puff Inhalation Q12H ??? levothyroxine 50 mcg Oral Daily ??? montelukast 10 mg Oral Nightly ??? sodium chloride 0.9 % 5 mL Intravenous Q12H ??? esomeprazole 40 mg Oral Daily Or ??? esomeprazole 40 mg Intravenous Daily ??? docusate sodium 100 mg Oral BID IS PATIENT CRITICALLY ILL ? Is there a high potential of sudden, clinically significant, or life threatening deterioration? Yes Is there a need for direct personal assessment and management to treat/prevent multiple vital organfailure/deterioration? Yes PATIENT IS CRITICALLY ILL WITH THESE DIAGNOSES BEING MANAGED BY [facility] TEAM: Sepsis TIME spent on the unit excluding procedures: 35 minutes LESLY HOPE MD 01/24/2013 * Dillan Liao MD - 01/24/2013 5:01 PM EDT Admission Note Patient Name: Dillan Rodgers MR#: [id number] : [id number] CC: 62 y.o. Male s/p robotic prostatectomy admitted to ICU due to hypotension not responsive to pressors due to superinfected pelvic hematoma with pseudoaneurysm bleeding into hematoma HISTORY OF PRESENT ILLNESS: 62M with a PMHx metal aortic valve replacement on coumadin, s/p robotic prostatectomy 11/20 for highrisk prostate cancer. Post-op course was complicated by development of a pelvic hematoma w/ distraction of anastamosis and development of a LLE DVT despite anticoagulation. Had IVC filter placed at the end of December. Has been experiencing intermittent hematuria requiring clot evacuation on 12/27. Yesterday he woke up with terrible right hip pain and left lower leg pain which took him to the hospital. He had a temp to 39 there and got IV Cipro. He was transferred here for further workup and management. He was ISCU status. He had a CT scan done which showed marked interval enlargement of iliacus hematoma with active bleeding at the time of the scan, with multiple air inclusions c/w superinfection with gas forming bacteria. Overnight and throughout he course of the day, he became hypotensive which was not responsive to fluids or pressors. He was taken to IR for embolization of his pseudoaneurysm as well as CT guided drainage of the superinfected hematoma. PAST MEDICAL AND SURGICAL HISTORY: No past medical history on file. Past Surgical History Procedure Date ??? Lap, prostatectomy, radical, w/nerve spare 11/20/2012 @LAPAROSCOPIC PROSTATECTOMY, ROBOTICS ASSISTED performed by Presley Madrid MD at [facility] MAIN OR ??? Lap, pelvic lymphadenectomy 11/20/2012 LAPAROSCOPY,WITH BILATERAL TOTAL PELVIC LYMPHADENECTOMY, ROBOTIC performed by Presley Madrid MD at [facility] MAIN OR ? ? Cystourethroscopy w/irrig & evac clots 12/27/2012 CYSTO, IRRIGATION & EVACUATION OF CLOTS performed by Presley Madrid MD at [facility] MAIN OR ALLERGIES: No Known Allergies MEDICATIONS: Prescriptions prior to admission Medication Sig Dispense Refill ??? cyclobenzaprine (FLEXERIL) 5 mg tablet Take [...] tablet Take 50 mcg by mouth daily. FAMILY HISTORY: non-contributory in any family member SOCIAL HISTORY: History Substance Use Topics ??? Smoking status: Former Smoker -- 1.0 packs/day for 1 years Types: Cigarettes Quit date: 11/02/1986 ??? Smokeless tobacco: Never Used ??? Alcohol Use: 3.0 oz/week 5 Shots of liquor per week 2 gin and tonic per night REVIEW OF SYSTEMS: complete 10 system ROS performed with pertinent findings below. Pertinent items are noted in HPI. PHYSICAL EXAM: Last Value Range last 24 hrs Temperature Temp: 36.1 ??C (97 ??F) Temp: [36.1 ??C (97 ??F)-40.8 ??C (105.4 ??F)] Heart Rate Heart Rate: 105 Heart Rate: [94-167] Blood Pressure BP: 91/49 mmHg BP: (91-153)/(43-92) Respiratory Resp: 18 Resp: [13-32] SpO2 SpO2: 98 % SpO2: [87 %-100 %] Art BP BP (Arterial Line): -- GENERAL: alert, awake and no apparent distress HEAD: Normocephalic, without obvious abnormality, atraumatic Pupils: equal, round, reactive to light, no periorbital ecchymoses; Oropharynx: nonbloody, moist mucous membranes, no lacerations, no malocclusion and no chipped or missing teeth NECK: benign LUNG: equal, clear breath sounds bilaterally and no crepitus CARDIAC: Regular rate and rhythm, S1S2 present or without murmur or extra heart sounds ABDOMEN/GI: Moderately tender in LLQ MS: normal and symmetric movement, normal range of motion, no joint swelling, pain in L anterolateral thigh SKIN: warm, dry NEURO: CN II-XII grossly intact, strength 5/5 symmetric bilaterally in upper and lower extremity, sensation grossly intact, no focal abnormalities LABORATORY: Recent Labs Basename 01/24/13 1400 01/24/13 1022 01/24/13 0602 01/24/13 0008 01/22/13 1552 WBC 3.6* 1.3* 12.3* 12.8* 10.1* HGB 6.5* 8.2* 7.5* 6.5* 7.6* HCT 21.8* 28.6* 25.6* 21.9* 26.8* PLATELET 221 345 316 255 322 PT -- -- -- 32.0* 28.3* INR -- -- -- 3.0* 2.6* PTT -- -- -- 72* 56* Recent Labs Basename 01/24/13 0008 NA 136 K 3.8 CL 105 CO2 19* BUN 22* CREATININE 1.45 GLUCOSE 105 CALCIUM 7.8* MAGNESIUM -- PHOS -- LACTATE -- No results found for this basename: AST:3,ALT:3,ALKPHOS:3,BILITOT:3,BILIDIR:3 in the last 168 hours Lab Results Component Value Date INR 3.0* 01/24/2013 PT 32.0* 01/24/2013 PTT 72* 01/24/2013 ABG (Arterial Blood Gas) No results found for this basename: phart, po2art, jrf2wki RADIOLOGY: Ct Pelvis Wo Contrast 01/04/[address] Pelvis Without Contrast Clinical History s/p RALP with known pelvic hematoma and persistent hematuria Comparison December 08, 2012. Technique Noncontrast CT pelvis. Findings Increased size of the left pelvic wall hematoma currently measuring 9 x 6.4 cm compared to prior of 7.5 x 5 cm containing retracted thrombus which extends from the iliopsoas junction, along the iliacus muscle and into the deep pelvis. Previously suspected anterior lymphocele now contains some hyperdensematerial suggesting some element of retracted thrombus within this. Deep pelvic sutures are identified along both sides of the prostatectomy bed. Postoperative changes in this bed had Salomon have retracted in the interval as fat planes have become more evident. Review of osseous structures shows no suspicious lesions. Impression Interval enlargement of the known left dominik pelvic hematoma with retraction of postsurgical changes in the prostatectomy bed. Vs Ivc Filter Placement/removal (vascular) 01/05/2013 Vascular Surgery Angio Procedure Note: Pre-Operative Diagnosis: lower extremity deep venous thrombosis Post-Operative Diagnosis: same Procedure: 1. Right femoral venous access under ultrasound guidance 2. Non-selective catheterization of vena cava 3. Diagnostic venogram 4. Deployment of inferior vena cava filter Surgeons: Eder Rizo Dye: 30 mL Visipaque FT: 0.5 minutes Antibiotics: 1 gram Kefzol Sedation: Versed- 2.5 mg, Fentanyl- 125 mcg Indications: 62 y.o. male with persistent non-occlusive DVT. Likely developed while he was not anticoagulated betito-proccedurally or during his readmission. However, it appears to have propagated since that time, when he likely was therapeutically anticoagulated. Additionally, he is not a candidate for thrombolytic therapy given his persistenthematuria, and is at high risk for developing additional DVT (malignancy, relative immobility, recent surgery, mechanical valve). He now presents for IVC filter placement to protect against pulmonaryemboli. Findings: - Dr. Gaines was present for the entirety of this procedure. - Sheath access in right groin - Venogram demonstrated patent infrarenal IVC measuring 26mm with bilateral renal veins visualized. Limited right iliac venogram demonstrated patent right iliac vein - Tab Tulip IVC filter deployed Technical Procedure: The patient was correctly identified in the pre-procedure holding area. After a discussion of the risks and benefits, operative consent was obtained. The patient was brought to the angio suite and placed supine upon the angio table. The patient was prepped and drapedin the usual sterile fashion. A time-out was performed by the attending surgeon. Percutaneous access was obtained in the right common femoral vein via micropuncture technique under flouroscopic guidance after infiltration with local anesthetic. This was then up-sized to a 10 cm 5F sheath over a J-wire. The wire was advanced into the inferior vena cava. A 5F omni-flush catheter was advanced into the IVC over the wire. Diagnostic venography was performed with the above findings. A Tab Tulup IVC filter was deployed in an infrarenal position in standard fashion after marking the location of the lowest renal vein. The sheath was removed and manual pressure was held over the puncture site for10 minutes. Hemostasis was satisfactory. The puncture site was dressed with a dry gauze and tegaderm. Dr. Gaines the attending surgeon was scrubbed and present for the entire procedure. Split doses offentanyl and Versed were administered by the IR nurse during continuous monitoring of pulse, blood pressure and oxygen saturation. Plan: Readmit to urology service. Observe DVT for now and continue anticoagulation as able. I was present and I participated during the critical and capps portions of this procedure; and I was immediately available during the remainder of the procedure. I interpret the critical and capps portions of this procedure to have been: Procedure: 1. Right femoral venous access under ultrasound guidance 2. Non-selective catheterization of vena cava 3. Diagnostic venogram 4. 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 Recheck q6 Pulm: 4L NC - monitor respiratory status : diallo in place - monitor UOP Heme: stable, trend H/H. HGb 8.6 ID antibiotics:Unasyn, Vanc GI Diet: NPO Endo: stable FEN - KVO, bolus LR as needed - replete lytes as needed ??? sodium chloride 0.9% 10 mL/hr (01/24/13 1200) ??? sodium chloride 0.9% 10 mL/hr (01/24/13 1200) ??? PHENYLephrine Stopped (01/24/13 1630) ??? NORepinephrine 40 mcg/min (01/24/13 1647) ??? sodium chloride 0.9% 150 mL/hr (01/24/13 1200) PPx: No AC, SCD's, nexium DILLAN LIAO MD 01/24/2013 * Eddie Proctor Esperanza - 01/23/2013 11:20 PM EDT Patient Name: Dillan Rodgers Patient Age: 62 y.o. 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 His post-operative course was complicated by development of a pelvic hematoma w/ distraction of anastamosis in addition to development of a LLE DVT despite anticoagulation. The patient received an IVC filter at the end of December. Since his discharge he has been experiencing intermittent hematuria requiring clot evacuation on December 27. He had a cystoscopy one week ago that showed a healed anastomosis and no clot in the bladder. He does report having difficulty to void at times which he feels is due to clot in his bladder. He was last seen in clinic yesterday at which point in time he was doing fairly well although he did report recurrent hematuria. This morning he states he woke up with terrible right hip pain and left lower leg pain which took him to the hospital. He had a temp to 39 there and got IV Cipro. He wastransferred here for further workup and management. ALLERGIES: No Known Allergies MEDS: No current facility-administered medications on file prior to encounter. Current Outpatient Prescriptions on File Prior to Encounter Medication Sig Dispense Refill ??? cyclobenzaprine (FLEXERIL) 5 mg tablet Take [...] tablet Take 50 mcg by mouth daily. PMHX: Prostate CA Metal aortic valve - on Coumadin PSHX: Past Surgical History Procedure Date ??? Lap, prostatectomy, radical, w/nerve spare 11/20/2012 @LAPAROSCOPIC PROSTATECTOMY, ROBOTICS ASSISTED performed by Presley Madrid MD at [facility] MAIN OR ??? Lap, pelvic lymphadenectomy 11/20/2012 LAPAROSCOPY,WITH BILATERAL TOTAL PELVIC LYMPHADENECTOMY, ROBOTIC performed by Presley Madrid MD at [facility] MAIN OR ? ? Cystourethroscopy w/irrig & evac clots 12/27/2012 CYSTO, IRRIGATION & EVACUATION OF CLOTS performed by Presley Madrid MD at [facility] MAIN OR Aortic valve replacement FAM HX: Noncontributory SOC HX: H/o tobacco use VITALS Patient Vitals for the past 8 hrs: BP Temp Temp src Pulse Resp SpO2 Height Weight 01/23/13 2316 - - - - - - 172.7 cm (5' 8) - 01/23/13 2311 107/61 mmHg 36.8 ??C (98.2 ??F) Oral 105 20 98 % - 99.2 kg (218 lb 11.1 oz) PHYSICAL EXAM NAD, pleasant gentleman, appears stated age Reg Rhythym, audible mechanical click, tachycardic CTAB Soft, tender LLQ to deep palpation LLE is swollen > RLE A/P: 62yo gentleman with persistent hematuria 2 months s/p robotic prostatectomy, on Coumadin and ASA for mechanical valve and LLE DVT. ?Pelvic abscess, also ?IVC filter thrombosis. - Admit to Urology - Send Admission labs: CBC, BMP, Type and Screen, Coags, UA and Urine Cx - CT Abd/Pelvis to establish whether pelvic hematoma has resolved or whether there is residual abscess, also to assess IVC filter - NEURO: Vicodin for pain control - CV: hemodynamically stable, will continue to monitor. - PULM: Advair per home meds - GI: NPO for now - FEN: NS @ 150cc/hr - ID: No additional Abx for now. Will culture if spikes a fever. - PROPH: Hold all anticoagulation at this time - DISPO: Floor status documented in this encounter Procedure Notes * Provider, Scanning - 01/31/2013 1:06 PM EDTAssociated Order(s): SCAN DOC: [employer]SULTANT * Provider, Scanning - 01/31/2013 12:54 PM EDTAssociated Order(s): SCAN DOC: LAB * Toro Miller RN - 01/29/2013 2:24 PM EDTAssociated Order(s): PLACE PICC LINE: CONTACT VASCULAR ACCESS PICC/Midline Insertion Procedure Note Indications: Anti-infective This insertion was not to replace a malfunctioning catheter. This insertion was not due to a suspected line-associated infection. Location of Procedure: X-Ray Room 11 Risks and Benefits: The risks and benefits of this procedure were reviewed and informed consent was obtained obtained. Time Out: Prior to the start of the procedure, the patient's identity, intended procedure, site/side, correctpatient positioning and presence of the site immanuel was confirmed as applicable. The medical history and chart were reviewed to rule out potential contraindications to the planned procedure. 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 Catheter type: PICC Lot number: [id number] Procedure Technique: Skin was prepped with chlorhexidine. Skin preparation agent was completely dry at the time of first skin puncture. The following barrier precaution methods were used:large sterile drape, maske/eye shield, large sterile gown, sterile gloves and cap. 3 ml of 1% Lidocaine was used for skin wheal. Ultrasound was used for guidance. Radiographic contrast agent was not injected for vein identification. Procedure Details: Order received for catheter placement. A 4 Fr. single lumen Bard Power catheter was placed into theright basilic vein over a 0.018 inch guidewire using modified seldinger technique and fluoroscopy. Arm circumference was 35 cm at 2 cm above the insertion site. Final catheter length (with trimming): 34 cm Internal: 34 cm External: 0 cm Tip in SVC per JUSTICE. The line was not placed over a guidewire. Post Procedure: Diagnosis: SEPSIS. Blood return noted on aspiration of line after placement confirmed. 5 mls of normal saline infused free flowing to gravity via PICC after insertion. Sterile dressing applied: CHG Impregnated Tegaderm. Findings: The patient did tolerate the procedure well. No Complications. Procedure Comments: TORO MILLER RN 01/29/2013 * Corrina Olson MD - 01/24/2013 8:17 PM EDTProcedure(s): INSERT ARTERIAL LINE Arterial Line Placement Procedure Note Indication for Procedure: Arterial line was placed for invasive blood pressure monitoring, arterialblood gases and blood sampling for laboratory test. Location of Procedure: Critical Care. Risks and Benefits: The risks and benefits of this procedure were reviewed and informed consent wasobtained. Time Out: Prior to the start of the procedure, the patient's identity, intended procedure, site/side, correct patient positioning and presence of the site immanuel was confirmed as applicable. The medical history and chart were reviewed to rule out potential contraindications to the planned procedure. Hand Hygiene: The beef selector did perform hand hygiene prior to arterial line insertion. Procedure Prep: Sterile draping was applied. Skin was prepped with chlorhexidine. Full barrier precautions were used. Procedure Details: A 20 gauge, 2 inch catheter was placed in the right radial artery and secured with steri-strips. Tegaderm was applied.. There was 1 attempt. Findings: There were no procedure complications. Blood was drawn with ease. Good wave form. Procedure Comments: * Nelida Collins - 01/24/2013 8:17 PM EDTProcedure(s): CENTRAL LINE Central Line Placement Procedure Note Indication for Central Line Insertion: New Catheter: access This insertion was not to replace a malfunctioning central line. This insertion was not due to a suspected central line associated infection. Location of Procedure: [facility] Risks and Benefits: The risks and benefits of this procedure were reviewed and informed consent was obtained. Time Out: Prior to the start of the procedure, the patient's identity, intended procedure, site/side, correctpatient positioning and presence of the site immanuel was confirmed as applicable. The medical history and chart were reviewed to rule out potential contraindications to the planned procedure. Hand Hygiene: The beef selector did perform hand hygiene prior to central line insertion. Procedure Technique: Skin was prepped with chlorhexidine . Skin preparation agent was completely dry at the time of first skin puncture. The following barrier precautions were used:large sterile drape, mask/eye shield, large sterile gown, sterile gloves and cap. 3 ml of 1% Lidocaine was used for skin wheal. Ultrasound was used for guidance. Procedure Details: A 22 gauge finder needle was used to identify the vein. An 18 Ga. X 2.5 inch Introducer needle was placed in vein after blood return identified. Guided by a 0.018 inch diameter guide wire, a 7 Fr., 3lumen, 16 cm catheter was inserted using the Seldinger Technique. Additional Catheter Details: Catheter type: CVL. Catheter was a non tunneled. Insertion site was right, jugular (internal). There was 2 attempt(s). The catheter was sutured to the skin at 1 cm. The central line was not placed over a guidewire. Sterile Dressing: CHG integrated tegaderm Findings: Patient tolerated procedure well., Blood returned appropriately. Complications: No Complications. Post Procedure: Chest x-ray ordered. Procedure Comments: None I observed and assisted Dr. Dillan Liao perform the procedure. Nelida Collins MD * Ermias Moya MD - 01/24/2013 5:47 PM EDTProcedure(s): CT GUIDED DRAIN RETROPERITONEAL ABSCESS Pre-Procedure Diagnose(s): Abscess of abdominal cavity Post-Procedure Diagnose(s): Abscess of abdominal cavity VIR PROCEDURE NOTE : CT-guided drainage pelvic abscess Acc #: [id number] INDICATION : abscess s/p robotic prostatectomy/LND approximately 2 months ago. Post-op course was notable for pelvic hematoma. 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 CECT scan demonstrated left sided pelvic hematoma, with loculation and gas within the collection. To CT for drain after embolization of superior gluteal branch false aneurysm. TECHNIQUE: After discussing risks (including infection and hemorrhage), and benefits, patient consented to the procedure. Due to the painful nature of the procedure, split doses of fentanyl and versed were administered by the IR nurse during continuous monitoring of pulse, blood pressure and oxygensaturation. Total dose of fentanyl 50mcg IV. Lesion was localized with CT. After sterile preparation of the overlying skin, 7 cc 1% lidocaine SQwas administered for anesthesia, and an 18 ga needle was advanced under CT guidance into the collection. Over an .035 guidewire, tract was dilated to 10 Fr, and a 10 Fr locking pigtail drain was placed. Catheter was secured to the skin and left to gravity drainage. Post-procedure CT images were obtained. Patient tolerated the procedure well. There were no immediate complications. Specimen submitted for culture. Contrast : 0. . EBL : 0 cc. FINDINGS: Contrast static within left pelvic aneurysm. Contrast extends irregularly throughout leftpelvic 12 x 8 x 6 cm collection, including caudal extent with gas loculations. Drain placed into caudal aspect of collection. 10 cc brownish-sanguinous fluid aspirated. IMPRESSION: Technically successful drain drain placement in left pelvic abscess. Recommend: gravity drainage, flush with 5-10 cc NS q 8h * Ermias Moya MD - 01/24/2013 4:28 PM EDT VIR PROCEDURE NOTE Procedure: Left selective common iliac arteriogram Left selective internal iliac arteriogram Left selective superior gluteal arteriogram Left internal iliac artery embolization with gelfoam ACC#: [id number] Indication for Procedure: 62 yr old M patient, s/p robotic prostatectomy/LND approximately 2 monthsago. Post-op course was notable for pelvic hematoma. 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 Most recently, he presented to an outside hospital with bilateral hip pain and fever. He was subsequently transferred to [facility]. CECT scan demonstrated left sided pelvic hematoma, displacing the bladder to the right and the external iliac artery anteriorly. There is gas within the collection. There was a 2.2 cm contrast collection posteriorly, consistent with a pseudoaneurysm. Angiography and embolization is requested. The patient's INR is 3.0 and he will require FFP to lower his INR to the 1.8-2.0 range. This was discussed with the urology service. Procedure events: Informed consent obtained. Patient sterilely prepped and draped on the angiography table. Maximum sterile barrier technique used throughout the procedure. Time out performed. At thebeginning of the procedure, the patient was tachycardic in the 100's and hypotensive in the 60's/40's. IV normal saline blouses given and phenylephrine gtt started. Hemogram showed hemoglobin drop from 7.5 to 6.5 grams. FFP was continuing to drip and 2 units of PRBCs were initiated. ICU team consulted and they provided additional care. Light fentanyl administered by IR RN. Right groin punctured with 21 ga needle using fluoroscopic guidance following 5 cc 1% lidocaine local anesthesia. 018 wire advanced. 3/5 Fr micropuncture dilator advanced. Exchanged for 035 J wire and 6 Fr sheath. 5 Fr C2 catheter advanced and used to cross the aortic bifurcation. Wire easily selected the left internal iliac artery. Bilateral oblique arteriograms performed. Gelfoam slurry embolization performed to near stasis. Repeat arteriogram performed. Left superior gluteal selected with .035 glidewire and C2 and arteriogram peformed. Additional gelfoam embolization performed. Catheter pulled back to internal iliac artery. Additional gelfoam embolization performed. Repeat arteriogram p erformed with reflux showing the common and external iliac arteries. Catheter removed. Right iliac and common femoral arteriogram performed. Right femoral arteriotomy closed with Perclose. Medications: Final sedation medications will be reported in the associated CT drain report on the same date. Lidocaine <10ccs SQ. Antibiotic Prophylaxis: On zosyn and Vancomycin Phenylephrine gtt initiated during the case for hypotension. Contrast: 75 cc. Omni 350, 125 discarded. Fluoro Dose: 19.8 mins Est Blood Loss: <5cc. Complications: 1. Some burning pain in the posterior left thigh developed during the case. This is of unclear etiology and is not commonly seen during embolization in this vascular bed. Doppler positive pulses in the left foot were unchanged. Neuromuscular exam of the left leg remained normal. 2. Hypotension managed as described above. Findings: Left internal iliac arteriogram showed the pseudoaneurysm seen on the recent CT angiogramto originate from a left superior gluteal artery distal branch. Embolized to near stasis with gelfoam but repeat angiogram showed persistent filling. Selective left superior gluteal embolized with gelfoam to stasis. Catheter pulled back to internal iliac and the entire vessel was further embolized with gelfoam to stasis, confirmed on final angiogram. Reflux of contrast into the left common and internal iliac arteries showed normal vessels with no extravasation or pseudoaneurysm. Right iliac andcommon femoral arteriogram showed normal vessels. 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 (Permanent occlusive devices were avoided due to the presumed infected collection surrounding the pseudoaneurysm.) Patient to have abscess drained in CT following this procedure today. Would consider CTA of the pelvis in one month to confirm occlusion of the pseudoaneurysm. Resident/Fellow: Yash/ Malathi Attending:Griffin Young, Dr. Moya, was present throughout the procedure. documented in this encounter Miscellaneous Notes * Miscellaneous - Provider, Scanning - 02/14/2013 12:11 PM EDT * Miscellaneous - Provider, Scanning - 01/31/2013 10:30 AM EDT * Miscellaneous - Provider, Scanning - 01/31/2013 10:30 AM EDT * Miscellaneous - Provider, Scanning - 01/31/2013 10:30 AM EDT * Miscellaneous - Provider, Scanning - 01/31/2013 10:30 AM EDT * Miscellaneous - Provider, Scanning - 01/31/2013 10:30 AM EDT * Plan of Care - Pauline Alberto RN - 01/30/2013 3:58 PM EDT Problem: Pain, Acute (Adult, Obstetric) Goal: Acute Pain: Acceptable Pain Control/Comfort Level - Pain, Acute (Adult, Obstetric) Outcome: Present (see interventions, notes) Pt reports minimal pain with PO tylenol for prevention of pain with activity. Ambulates & movesaround without difficulty. Problem: Urine Elimination, Impaired (Adult, Obstetric) Goal: Urine Elimination, Impaired: Effective Urinary Elimination Outcome: Present (see interventions, notes) Diallo catheter in place, small amount of urine leaking around diallo, pt wearing mesh panties & peach pad to collect seepage, pt independent with changing pad, supplies provided & in room. Scrotal edema lessened per pt report. Problem: Pressure Ulcer Risk (Using Josh Scale) (Adult, Obstetric) Goal: Pressure Ulcer Risk (using Josh Scale): Tissue Integrity Outcome: Absent and monitoring Pt independent with positioning. Up in room ad keerthi. Skin grossly intact. Problem: Trauma/Injury Risk (Adult, Obstetric) Goal: Trauma/Injury Risk: Absence of Trauma/Injury/Falls Outcome: Present (see interventions, notes) Pt up ad keerthi, call eaton remains within reach, pt rings appropriately for assistance. See doc flowsheets for additional interventions. * Discharge Summary - Clyde Ruiz MD - 01/30/2013 9:15 AM EDT UROLOGY DEPARTMENT Inpatient - Discharge Summary Patient Name: Dillan Rodgers Patient Age: 62 y.o. : 1950 Attending Physician: Lesly Hope MD Date of Admission: 01/23/2013 Date of Discharge: Diagnosis: No resolved problems to display. Active Hospital Problems Diagnoses ??? Postoperative hemorrhage ??? S/P AVR (aortic valve replacement) ??? S/P prostatectomy Resolved Hospital Problems Diagnoses Date Resolved Incidental Findings: None HPI and Hospital Course: Dillan Rodgers is a 62 y.o. male admitted on 01/23/2013 for worsening pelvic hematoma. 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 Post-op course was complicated by development of a pelvic hematoma w/ distraction of anastamosis and development of a LLE DVT despite anticoagulation. Had IVC filter placed at the end of December. Has been experiencing intermittent hematuria requiring clot evacuation on 12/27. Theday prior to admission he woke up with terrible right hip pain and left lower leg pain which took him to the hospital. He had a temp to 39 there and got IV Cipro. He was transferred here for further workup and management. He was ISCU status. He had a CT scan done which showed marked interval enlargement of iliacus hematoma with active bleeding at the time of the scan, with multiple air inclusionsc/w superinfection with gas forming bacteria. On HD #1 he became septic with high fevers, rigors and hypotension. He was transferred to the ISCU and placed on broad spectrum antibiotics. He received FFP to reverse his coagulation and underwent angiography. 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 This area was coiled and a drain was placed in the pelvic abscess/hematoma. He was admitted to the ICU post-procedure as he was requiring DUGLAS for BP support as well as fluid resuscitation. HD #2 he improved hemodynamically and was weaned off pressors. He underwent ALEX to rule out endocarditis in the setting of positive blood cultures and a mechanical aortic valve. This was negative forvegetations. He was transferred to the ISCU on HD #4 and an ID consult was placed. Blood and urine cultures grew enterococcus and E. Coli that was johnson sensitive. Antibiotics were therefore narrowed to Unasyn. Patient continued to improve throughout the hospital stay. Repeat blood cultures were negative He underwent PICC placement on HD 6 and was deemed stable for discharge with IV antibiotics on HD #7. His diallo catheter remained in place Updated Allergies/ADRs: No Known Allergies Operations/Major Procedures: Operations: 01/24/2013- Procedure: Left selective common iliac arteriogram Left selective internal iliac arteriogram Left selective superior gluteal arteriogram Left internal iliac artery embolization with gelfoam 01/24/2013- Procedure: CT-guided drainage pelvic abscess Pending Lab Data at Discharge: None. Condition at Discharge: Stable Important Studies and Lab Data: Labs: Recent Labs Basename 01/30/13 0603 01/29/13 0702 01/29/13 0216 01/28/13 0229 WBC -- -- 11.4* -- HGB -- -- 8.1* -- HCT -- -- 26.4* -- PLATELET -- -- 341 -- PT 20.8* 21.0* -- 21.0* INR 1.7* 1.8* -- 1.8* PTT 40* 45* -- -- Recent Labs Basename 01/29/13 0216 NA 142 K 3.7 CL 108* CO2 27 BUN 14 CREATININE 1.08 GLUCOSE -- CALCIUM 8.2* MAGNESIUM -- PHOS -- Studies: CXR- 01/24- A right internal jugular central venous catheter extends to the level of the superior vena cava. Sternotomy wires are present at midline. No pulmonary consolidation is identified. No large pleural effusion or pneumothorax is seen. CT A/P- 01/24 Marked interval enlargement of the iliacus hematoma in the left side of the pelvis. Active bleeding at the time of the scan. Multiple air inclusions are consistent with superinfection with gas-forming bacteria. Suspect thrombus within the left femoral vein. Left iliac vein is either highly compressed or occluded. Compression of the inferior aspect of the left ureter, which leads to mild to moderate left pelvicaliectasis. This is especially of note as the right kidney is highly atrophic. Air within the urinary bladder, which may be iatrogenic. 2.5 cm higher attenuation at the urinary bladder neck, which is indeterminate and may represent clot or soft tissue. A focal interruption of the 11th rib on the right at the posterior aspect is only partially included on this exam and not fully evaluated. 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 Discharge Examination: Last value Range last 12 hrs Temperature Temp: 36.6 ??C (97.9 ??F) Temp: [36.6 ??C (97.9 ??F)] Heart Rate Heart Rate: 84 Heart Rate: [84-98] Blood Pressure BP: 121/75 mmHg BP: (121-142)/(71-86) Respiratory Rate Resp: 17 Resp: [17-19] SpO2 SpO2: 97 % SpO2: [94 %-99 %] I/Os: I/O last 3 completed shifts: In: 2167 [P.O.:1440; I.V.:727] Out: 4378 [Urine:4225; Other:153] I/O this shift: In: 774 [P.O.:480; I.V.:294] Out: 1030 [Urine:1000; Other:30] Physical Exam: NAD RRR, mechanical heart sounds CTAB Soft, minimal TTP in LLQ Drain- suprapubic with dark purulent output Ext- + lower extremity edema Discharge to: Home Discharge Conditions/Prognosis: Stable Discharge Medications: The following medications have been prescribed for you. If you notice any adverse reactions to your medications, please contact your primary care physician immediately or go tothe nearest Emergency Department. Current Discharge Medication List New Meds Dose Details acetaminophen (TYLENOL) 500 mg tablet 1,000 mg Take 2 tablets by mouth every 6 hours as needed for Pain. Qty: 30 tablet Refills: 0 HYDROmorphone (DILAUDID) 2 mg tablet 2-4 mg Take 1-2 tablets by mouth every 4 hours as needed for Pain. Qty: 30 tablet Refills: 0 ciprofloxacin (CIPRO) 500 mg tablet 500 mg Take 1 tablet by mouth 2 times daily for 23 days. Qty: 46 tablet Refills: 0 Continued medications, unchanged Dose Details cyclobenzaprine (FLEXERIL) 5 mg tablet 5 mg Take 1 tablet by mouth 3 times daily as needed for Muscle spasms. Qty: 30 tablet Refills: 0 !! hydroCODone-acetaminophen (VICODIN) 5-500 mg per tablet 1-2 tablets Take 1-2 tablets by mouth every 4 hours as needed for Pain. Qty: 45 tablet Refills: 0 !! hydroCODone-acetaminophen (VICODIN) 5-500 mg per tablet 1-2 tablets Take 1-2 tablets by mouth every 4 hours as needed for Pain. Qty: 40 tablet Refills: 0 ferrous gluconate 325 mg (37.5 mg iron) tablet 325 mg Take 325 mg by mouth daily (with breakfast). omeprazole (PRILOSEC) 20 mg capsule 20 mg [...] that part of your care. Urology - [phone] Scheduled Appointments: The following appointments have been scheduled on your behalf: Future Appointments and Orders Future Appointments: Provider: Department: Dept Phone: Center: 02/13/2013 11:00 AM Cely Baires MD Infectious Disease [phone] [facility] 03/13/2013 10:30 AM Presley Madrid MD Urology [phone] [facility] Joint Appt Questionnaire [facility] Urology [phone] [facility] Future Orders Please Complete By Expires CT abdomen & pelvis with contrast [[id number] Custom] 02/05/13 01/29/14 Process Instructions: Scheduling Instructions: Comments: Questions: Responses: Reason for exam and clinical history: assess interval change in hematoma/pelvic abscess Other pertinent information: s/p IR drainage Does patient require sedation? Stat read required? GA rationale: Where will study be performed? [facility] Should this service/procedure be billed to the research sponsor? Requested Time Date of injury if applicable: OPAT: Order / Recommendation for Post Discharge IV Antibiotic Management [TEK986 CPT(R)] Process Instructions: If no progress note charted, please enter Clinical details in comments. Scheduling Instructions: Comments: Please Fax all results to: OPAT Program Infectious Disease Section [facility], [place] [address] FAX: Line care instructions per [facility] OPAT Program protocol. After hours, please contact the Infectious Disease Physician certified pest control technician at . If this order was signed greater than 72 hours prior to [facility] discharge, please call to confirm the accuracy of this order. Questions: Responses: Microorganisms being treated: E coli, Enterobacter faecalis Antibiotic Allergies: NKA Antibiotic (one line for each ABx): Penicillin 4 MU IV q4h Cipo 500mg po bid Start date: 01/24/2013 Anticipated stop date: 02/21/2013 Labs: Every Tuesday: CBC, CMP, ESR, high sensitivity CRP Last documented height (cm): 172.7 cm (5' 8) Last documented weight (kg): 111.2 kg (245 lb 2.4 oz) Responsible Attending: Riky Henley MD ID Diagnosis: Bacteremia; Infected Hematoma Left Pelvis Referral to Home Health [JRY4336 CPT(R)] Process Instructions: Scheduling Instructions: Comments: DOCUMENTATION FOR VNA SERVICES (INCLUDING THOSE PATIENTS WITH MEDICARE COVERAGE REQUIRING HOME VNA SERVICES AND/OR HOSPICE SERVICES) PATIENT'S LOCATION: Dillan Rodgers [address] [place] [phone] (home) Assembler Garment Form's Name: Patient, , Jade In discussion with the attending physician, it is certified that this patient is under their care and that they, or a Nurse Practitioner,Clinical Nurse specialist or Physician Field Services Manager who is working directly with them, had a face to face encounter that meets the physician face to face encounter requirements with this patient on 01/29/2013 The encounter with the patient was in whole, or in part, for the following medical condition, whichis the primary reason for home health care services: PMHx pertinent for 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 Developed sepsis on HD #1 now s/p IR angio embolization of internal iliac pseudoaneurysm and drain placement In discussion with the provider, it is certified that, based on their findings, the following services are medically necessary for home health services. To provide the following care/treatments with the clinical findings supporting the need for services as follows: HOME CARE ORDERS: RN ORDERS:Assess wound/incision/PICC /IV ABX infusion, IR drain/flushing,,reinforce teaching labs per MD orders, , vital signs, cardiopulmonary status, nutrition, hydration, elimination,pain, meds eff ectiveness and management; reinforce education re health issues, activity, coping HOME HEALTH CARE AGENCY: [facility] PHONE: [phone] FAX: [phone] Start of care: Day of discharge (01-29-13) Please note that any additional orders needs or changes will need to be obtained from this patient's PCP: FARNAZ PATEL MD [address] / [facility] [address] All VNA agencies which cover the area of patient's residence have been reviewed, either verbally clara writing, and patient/family have chosen the home health care agency noted Questions: Responses: Agency name and contact information [facility] location post discharge Home What services are requested Registered Nurse Start date 01/30/2013 Responsible MD post discharge contact info PCP/ Micaela [facility] Referral for Outpatient Antibiotics [[id number] CPT(R)] Process Instructions: Scheduling Instructions: Comments: [place], [place] or Questions: Responses: Patient location post discharge Home Start date 01/29/2013 Responsible MD post discharge contact info PCP/Raf Sun MD [facility] Vendor / contact information [facility] Service requested Home IV ABX infusion/PICC line care Outpatient Services/Studies: CT abdomen & pelvis with contrast Standing Status: Future Standing Exp. Date: 01/29/14 Question Response Notes Reason for exam and clinical history: assess interval change in hematoma/pelvic abscess Where will study be performed? [facility] Other pertinent information: s/p IR drainage OPAT: Order / Recommendation for Post Discharge IV Antibiotic Management Referral Priority: Routine Referral Type: Consultation Referral Reason: Assume Subset of Care Referred to Provider: RIKY HENLEY Number of Visits Requested: 1 Referral to Home Health Order Comments: DOCUMENTATION FOR VNA SERVICES (INCLUDING THOSE PATIENTS WITH MEDICARE COVERAGE REQUIRING HOME VNA SERVICES AND/OR HOSPICE SERVICES) PATIENT'S LOCATION: Dillan Rodgers [address] [place] [phone] (home) Assembler Gar[employer] Form's Name: Patient, , Jade In discussion with the attending physician, it is certified that this patient is under their care and that they, or a Nurse Practitioner,Clinical Nurse specialist or Physician Field Services Manager who is working directly with them, had a face to face encounter that meets the physician face to face encounter requirements with this patient on 01/29/2013 The encounter with the patient was in whole, or in part, for the following medical condition, whichis the primary reason for home health care services: PMHx pertinent for 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 Developed sepsis on HD #1 now s/p IR angio embolization of internal iliac pseudoaneurysm and drain placement In discussion with the provider, it is certified that, based on their findings, the following services are medically necessary for home health services. To provide the following care/treatments with the clinical findings supporting the need for services as follows: HOME CARE ORDERS: RN ORDERS:Assess wound/incision/PICC /IV ABX infusion, IR drain/flushing,,reinforce teaching labs per MD orders, , vital signs, cardiopulmonary status, nutrition, hydration, elimination,pain, meds eff ectiveness and management; reinforce education re health issues, activity, coping HOME HEALTH CARE AGENCY: [facility] PHONE: [phone] FAX: [phone] Start of care: Day of discharge (01-29-13) Please note that any additional orders needs or changes will need to be obtained from this patient's PCP: FARNAZ PATEL MD [address] / [facility] [place] [address] All A agencies which cover the area of patient's residence have been reviewed, either verbally clara writing, and patient/family have chosen the home health care agency noted Question Response Notes Agency name and contact information [facility] Patient location post discharge Home What services are requested Registered Nurse Start date 01/30/2013 Responsible MD post discharge contact info PCP/ Micaela [facility] Referral for Outpatient Antibiotics Order Comments: [place], [place] or Question Response Notes Vendor / contact information [place] Patient location post discharge Home Service requested Home IV ABX infusion/PICC line care Start date 01/29/2013 Responsible MD post discharge contact info PCP/Raf Sun MD [facility] Instructions Given to Patient at Discharge: Provider Instructions Call your doctor for: fevers greater than 100.5 severe nausea or vomiting increasing pain not controlled by pain medications increasing redness or drainage from incisions decreased urine output our if your catheter is no longer draining. The number for questions is [phone] before 5 PM weekdays and [phone] after 5 PM and weekends. Activity level: No heavy lifting greater than 10 pounds (about equal to a full gallon jug) for the next 4 weeks or until cleared to do so at follow-up appointment. Otherwise activity as tolerated by comfort level. Diet: You may resume your regular diet as tolerated. Driving: No driving while still taking opioid pain medications (wait at least 6- 8 hours since last dose). No driving if you are still sore from surgery as it may limit your ability to react quickly if necessary. Shower/Bath: Do not shower with drain in place. Sponge baths only Diallo: Diallo will stay in place until follow up next week Drain care: Keep drain site clean and dry. Change dressing as needed. Flush drain with 10cc sterilesaline twice daily Follow up Appointments: Follow-up appointment will be scheduled with Dr. Madrid in 1weeks for a Follow up. You will have a CT scan on this day to assess the size of the abscess/hematoma. Appointment will be mailed to you. Please call [phone] (clinic number for appointments) to confirm date and time of your appointment if you do not receive your apointment in 2-3 days. Anticoagulation (???Blood Thinner?? ) Management upon Discharge: Reason for anticoagulation therapy: Mechanical Aortic Valve Your NEW Warfarin (Coumadin??) dosing instruction upon discharge is: (Follow this schedule below until your first INR check after discharge (usually in 2- 4 days): Day of discharge (day #1): 7.5 mg Day #2: 5 mg Day #3: 5 mg Day #4: 5 mg INR Goal: 2.5-3.5 Expected duration of treatment: Lifelong Provider/Team responsible for ongoing outpatient anticoagulation management: Provider/Team/Clinic:FARNAZ PATEL MD Phone: [address] / [place] [address] If you have not received a call from your provider within 24hrs of having your INR drawn, please call your outpatient provider for further dose instructions. Warfarin (Coumadin??) should be taken at the same time every day, preferably after 5pm. If taking Enoxaparin (Lovenox??) injections, continue taking until instructed to stop. (You will betaking this medication until your INR is in the therapeutic range for 24 hours.) The following table shows your most recent INR results and Warfarin (Coumadin??) Doses Recent Labs Basename 01/30/13 0603 01/29/13 0702 01/28/13 0229 INR 1.7* 1.8* 1.8* Hospital Date 01/27 01/28 01/29 Coumadin Dose (mg) 5mg 5mg 5mg ?? Please review your Warfarin (Coumadin??) Pack upon discharge. ?? For your safety, it is very important to be aware of the following details related to taking ???blood thinning?? medications such as Coumadin. o Compliance: Take your medication exactly as directed. Missing a dose or taking more than you are scheduled to take could result in clotting or bleeding issues. o Signs and Symptoms to be reported include: increased pain, swelling or sudden shortness of breath severe headaches dizziness unusual bleeding or bruising changes in urine or bowel movement color coughing or spitting up of blood, or nosebleeds In the event that you should experience any of the above, seek medical attention. General Instructions chili maker Addendum Care Management Progress Notes 01/29/2013 11:46 AM Office of Care Management Clinical Soft Drink Powder Mixer Home IV Antibiotic Therapy Referral Note. Report received from that this patient will need home IV ABX treatment at discharge from the hospital. Met with patient/family to discuss vendor and visiting nurse choices for home IV antibiotic therapy. Reviewed Home Infusion Vendors and Home Health Agencies that serve patient???s address and accept patient???s insurance. Home Health Agency: Patient requested referral to [facility] PHONE: [phone] FAX: [phone] Referrals sent via edischarge. Home Infusion Vendor: Patient requested referral to [place], [place] or Referrals sent via edischarge. Diabetic Status: Patient is not a diabetic. IV access: Type of line: PICC line Date placed: 01-29-13 CRC signature Belen ValleRN [facility] Vascular and Interventional Radiology Discharge Instructions for Tube Care Activity: Rest for the next 24 hours.You may be sore for several days after the tube is inserted. This may limit your activity. You should be careful to avoid activity that causes a pulling sensation, pain or kinking of the tube. When to call your healthcare provider: There may be a little blood in the drainage after the tube is placed or changed. Contact your healthcare provider if the bleeding doesn???t stop in a couple of days or if the drainage becomes bright red. If drainage leaks around the tube, or there is decreased drainage into the bag or bulb. If the tube stops draining. If skin around the tube is red or irritated or if you see any swelling or drainage around the tube. If you have shaking chills. If you have a fever equal to or greater than 101 degrees Fahrenheit If you have unusual pain at the tube site. If the smell of the drainage becomes strong, call your healthcare provider. Tube Care: If your tube is connected to a drainage bag or bulb, it is important to empty it regularly. Monitor the dressing daily and change as needed. You may take a shower but you must cover the dressing with plastic wrap to keep it dry. It may be easier to take a sponge bath. You may NOT take a tub bath or swim. It is important that you take care of your tube. It can be pulled out if it is caught on something.If you think the tube is partly pulled out or if it comes out completely, we can usually put it back in easily if you come to see us within 12-24 hours. It is important to keep the skin around the tube healthy. You should clean the area with soap and water a minimum of three times per week. Replace the gauze dressing after you have cleaned and completely dried the skin. Please flush your drain as instructed with ___5___cc of Normal Saline, EVERY 8 HOURS using the syringes supplied to you. WHEN OUTPUT DROPS BELOW 20ML/DAY PLEASE CALL RADIOLOGY. When to call the Interventional Radiology Department: Please call with any questions or concerns. If it is during regular office hours, please call [phone]. If it is after regular office hours, or on weekends or holidays, please call [phone] and ask to speak to the Jacquard Lace Weaver certified pest control technician for Interventional Radiology. You may have received medication during your procedure to help lesson anxiety and keep you comfortable. We recommend that you do not drive, operate equipment, sign any important documents, or smoke unattended for 24 hours following your procedure. You may have received medication before and/or during your procedure, which affects judgement and reaction time. Be careful on stairs, as you may be unsteady on your feet. You may eat a regular diet as tolerated IV site -- slight redness, or tenderness is normal, you can use a warm compress. If tenderness and redness increases or foul drainage occurs, please contact your M. D. 10/22/11 Revised 06/04/11 Future Appointments and Orders Future Appointments: Provider: Department: Dept Phone: Center: 02/13/2013 11:00 AM Cely Baires MD Infectious Disease [phone] [facility] 03/13/2013 10:30 AM Presley Madrid MD Urology [phone] [facility] Joint Appt Questionnaire [facility] Urology Urology [phone] [facility] Future Orders Please Complete By Expires CT abdomen & pelvis with contrast [[id number] Custom] 02/05/13 01/29/14 Process Instructions: Scheduling Instructions: Comments: Questions: Responses: Reason for exam and clinical history: assess interval change in hematoma/pelvic abscess Other pertinent information: s/p IR drainage Does patient require sedation? Stat read required? GA rationale: Where will study be performed? [facility] Should this service/procedure be billed to the research sponsor? Requested Time Date of injury if applicable: OPAT: Order / Recommendation for Post Discharge IV Antibiotic Management [[id number] CPT(R)] Process Instructions: If no progress note charted, please enter Clinical details in comments. Scheduling Instructions: Comments: Please Fax all results to: OPAT Program Infectious Disease Section [facility], [place] [address] FAX: Line care instructions per [facility] OPAT Program protocol. After hours, please contact the Infectious Disease Physician certified pest control technician at . If this order was signed greater than 72 hours prior to [facility] discharge, please call to confirm the accuracy of this order. Questions: Responses: Microorganisms being treated: E coli, Enterobacter faecalis Antibiotic Allergies: NKA Antibiotic (one line for each ABx): Penicillin 4 MU IV q4h Cipo 500mg po bid Start date: 01/24/2013 Anticipated stop date: 02/21/2013 Labs: Every Tuesday: CBC, CMP, ESR, high sensitivity CRP Last documented height (cm): 172.7 cm (5' 8) Last documented weight (kg): 111.2 kg (245 lb 2.4 oz) Responsible Attending: Riky Henley MD ID Diagnosis: Bacteremia; Infected Hematoma Left Pelvis Referral to Home Health [[id number] CPT(R)] Process Instructions: Scheduling Instructions: Comments: DOCUMENTATION FOR VNA SERVICES (INCLUDING THOSE PATIENTS WITH MEDICARE COVERAGE REQUIRING HOME VNA SERVICES AND/OR HOSPICE SERVICES) PATIENT'S LOCATION: Dillan Ocampo Vishal [address] [place] [phone] (home) Assembler Garment Form's Name: Patient, , Jade In discussion with the attending physician, it is certified that this patient is under their care and that they, or a Nurse Practitioner,Clinical Nurse specialist or Physician Field Services Manager who is working directly with them, had a face to face encounter that meets the physician face to face encounter requirements with this patient on 01/29/2013 The encounter with the patient was in whole, or in part, for the following medical condition, whichis the primary reason for home health care services: PMHx pertinent for 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 Developed sepsis on HD #1 now s/p IR angio embolization of internal iliac pseudoaneurysm and drain placement In discussion with the provider, it is certified that, based on their findings, the following services are medically necessary for home health services. To provide the following care/treatments with the clinical findings supporting the need for services as follows: HOME CARE ORDERS: RN ORDERS:Assess wound/incision/PICC /IV ABX infusion, IR drain/flushing,,reinforce teaching labs per MD orders, , vital signs, cardiopulmonary status, nutrition, hydration, elimination,pain, meds eff ectiveness and management; reinforce education re health issues, activity, coping HOME HEALTH CARE AGENCY: [facility] PHONE: [phone] FAX: [phone] Start of care: Day of discharge (01-29-13) Please note that any additional orders needs or changes will need to be obtained from this patient's PCP: FARNAZ PATEL MD [address] / [facility] [address] All A agencies which cover the area of patient's residence have been reviewed, either verbally clara writing, and patient/family have chosen the home health care agency noted Questions: Responses: Agency name and contact information [facility] Patient location post discharge Home What services are requested Registered Nurse Start date 01/30/2013 Responsible MD post discharge contact info PCP/ Micaela [facility] Referral for Outpatient Antibiotics [[id number] CPT(R)] Process Instructions: Scheduling Instructions: Comments: [place], [place] or Questions: Responses: Patient location post discharge Home Start date 01/29/2013 Responsible MD post discharge contact info PCP/Raf Sun MD [facility] Vendor / contact information [facility] Service requested Home IV ABX infusion/PICC line care Call your doctor if: Please call your [...] was managed by the Urology Team at [facility]. If you have any questions or concerns, please feel free to contact us. Provider Contact Information: Urology Clinic: [facility] (after business hours): CC: FARNAZ PATEL MD Signed: 01/30/2013 * Miscellaneous - Provider, Scanning - 01/30/2013 9:02 AM EDT * Plan of Care - Nancy Hardin RN - 01/29/2013 9:55 PM EDT Problem: Pain, Acute (Adult, Obstetric) Goal: Acute Pain: Acceptable Pain Control/Comfort Level - Pain, Acute (Adult, Obstetric) Patient states that pain is a 0/10 on pain number scale. No intervention needed at this point. Continue to monitor patient. Problem: Urine Elimination, Impaired (Adult, Obstetric) Goal: Urine Elimination, Impaired: Effective Urinary Elimination Patient currently has a patent diallo catheter but continues to leak around catheter. Incontinence pad in place. Continue to monitor. Problem: Pressure Ulcer Risk (Using Josh Scale) (Adult, Obstetric) Goal: Pressure Ulcer Risk (using Josh Scale): Tissue Integrity Turning/repositioning independently when in bed and also in chair. SCD's are worn when patient is in bed. He continues to remain afebrile. Oral nutrition/hydration is being encouraged. Problem: Trauma/Injury Risk (Adult, Obstetric) Goal: Trauma/Injury Risk: Absence of Trauma/Injury/Falls Patient ambulates with stand by assist from/to bathroom/bed. Obstacles are removed and non skid footwear is applied during ambulation. Lighting is adjusted to provide adequate care. He remains alert and oriented x4. Continue to monitor. * Plan of Care - Nohemi Preston RN - 01/29/2013 2:33 PM EDT Problem: Trauma/Injury Risk (Adult, Obstetric) Goal: Trauma/Injury Risk: Absence of Trauma/Injury/Falls Wslks with steady gait. * Plan of Care - Nohemi Preston RN - 01/29/2013 2:32 PM EDT Problem: Pressure Ulcer Risk (Using Josh Scale) (Adult, Obstetric) Goal: Pressure Ulcer Risk (using Josh Scale): Tissue Integrity Moves around by self. * Plan of Care - Nohemi Preston RN - 01/29/2013 2:32 PM EDT Problem: Urine Elimination, Impaired (Adult, Obstetric) Goal: Urine Elimination, Impaired: Effective Urinary Elimination Conduit draining yellow urine * Plan of Care - Nohemi Preston RN - 01/29/2013 2:32 PM EDT Problem: Pain, Acute (Adult, Obstetric) Goal: Acute Pain: Acceptable Pain Control/Comfort Level - Pain, Acute (Adult, Obstetric) Has limited pain. * Initial Assessments - Shavon Bennett OT - 01/29/2013 10:17 AM EDT Occupational Therapy Evaluation Patient profile: Dillan Rodgers is a 62 y.o. male patient of Lesly Correia MD, admitted on 01/23/2013 in transfer after presenting to an OSH with complaints of acute onset hip pain. While at the OSH he was febrile with temp to 39C. He was transferred for further management of a possible pelvic abscess vs IVC filter thrombus. A CT scan revealed a left pelvic hematoma with fluid collection and possible pseudoaneurysm. He was taken to IR and is s/p angiography with embolization and CT guided drainage of an infected hematoma. Post procedure he became hypotensive with a lactate of 4.1, and was transferred to the ICU for further management. Pt is now on 2W, scheduled for PICC. PMH: S/P prostatectomy 11/20/12 with a post op course complicated by hematuria and a LLE DVT with IVC filter placement 12/2012. Prostate cancer Postoperative hemorrhage S/P AVR (aortic valve replaceme Past Surgical History Procedure Date ??? Lap, prostatectomy, radical, w/nerve spare 11/20/2012 @LAPAROSCOPIC PROSTATECTOMY, ROBOTICS ASSISTED performed by Presley Madrid MD at [facility] MAIN OR ??? Lap, pelvic lymphadenectomy 11/20/2012 LAPAROSCOPY,WITH BILATERAL TOTAL PELVIC LYMPHADENECTOMY, ROBOTIC performed by Presley Madrid MD at [facility] MAIN OR ? ? Cystourethroscopy w/irrig & evac clots 12/27/2012 CYSTO, IRRIGATION & EVACUATION OF CLOTS performed by Presley Madrid MD at [facility] MAIN OR ??? Ct retroperitoneal abscess drain 01/24/2013 Social History: Patient lives with his spouse Home Setup: n/a DME: none Baseline ADL/Mobility: Independent with ADL???s and IADL???s, pt was working the week prior to admit. Precautions/Special Considerations: edematous scrotum. Subjective: I should probably get an early start, getting up would be good. Objective: Seen today for OT evaluation. Cognitive Status/Behavior: alert, oriented to person, place, and time Communication: [facility] Vision & Perception: n/a Range of motion, strength, coordination: Hand dominance: right Bilateral UEs are within functional limitations Sensation: intact Activities of Daily Living: Self-feeding: WF Hygiene grooming: seated with set up. Standing at sink with supervision and FWW, good balance. Upper and lower body dressing and bathing: ?? Max assist for LB dressing and bathing due to pain in groin and scrotum. Placed mesh underpants over pts feet and up to knees, he could do the rest. ?? Endorses having assist for ADLs as needed upon d/c Toileting: Toilet Transfer: n/a Toilet Hygiene: n/a Functional Mobility: Supine to sit: Min assist for L LE to EOB, otherwise pt could scoot to EOB. Sit to stand: Supervision Ambulation: Supervision with FWW, pt amb down the hallway a far distance and back. Stand to sit: Supervision Sit to supine: n/a Balance: Good sitting and standing with FWW. IADL???s: Assistance available to patient. Endurance: Information taken from last recorded vitals in flowsheet. Last value Range last 8 hrs Heart Rate Heart Rate: 95 Heart Rate: [87-95] Blood Pressure BP: 124/84 mmHg BP: (121-124)/(77-84) SpO2 SpO2: 97 % SpO2: [96 %-98 %] On room air Pain: 2/10. Skin: edematous scrotum, wears pads and mesh underpants for support Informed Consent: The patient agrees to and understands the OT treatment plan and goals. Patient status, treatment, and mobility recommendations discussed with nursing. Assessment: Pt has been seen by OT for evaluation, and he demonstrates the ability to perform basic ADL???s with minimal assist. Pt is moving quite well and i anticipate he will return home with assist of his family for ADL needs. I will f/u with pt one more session to address concerns that may arise if needed. Recommendations: Equipment needs at discharge: ?FWW Plan: f/u prn Eval date: 01/29/2013 Total time spent with patient: 30 minutes Total timed interventions: 0 minutes Pager: [phone] SHAVON BENNETT OT 01/29/2013 Occupational Therapy Rehabilitation Department * Plan of Care - John Pacheco RN - 01/29/2013 8:02 AM EDT Problem: Knowledge Deficit (Adult, Pediatric, [place], NICU, Obstetric) Goal: Knowledge Deficit: Knowledgeable about Subject/Topic Outcome: Outcome achieved Date Met: 01/29/13 Peripherally Inserted Central Catheter (PICC) Teaching Sheet Peripherally inserted central catheters ([id number]-uc-hfna) (PICC) are used when you need IV (intravenous) medicines and fluids. A catheter is a small flexible plastic tube. The catheter is put in througha vein under your skin. A vein is a tube inside your body that carries blood from the body to the heart. The catheter is usually put into a vein on the inside of your upper arm. Then it is threaded up this vein and ends in the blood vessel near your heart. The PICC catheter may be used for taking blood for laboratory tests. You may also get IV fluids andmedicines quickly and easily. Having the catheter may keep your arm from being stuck many times with a needle. The catheter will have 1-3 small tails (tubes) coming from your arm where the catheter was put in. Why do I need a PICC line or midline catheter? PICC lines are used for continuous churn buttermaker treatments. PICC lines may be used for up to a year. They areoften put in to give you IV medicines at home. You may need a PICC catheter because caregivers cannot use smaller veins in your body. Smaller veins may be damaged, or they may have poor blood flow. ??? Catheters are also used in case of emergency when you would need medicines or fluids very quickly. ??? The following are medicines and treatments you may get when you have a PICC line. ? Antibiotics. These are medicines to prevent infection. ? Frequent blood sample collection. ? IV medicines that would make your smaller veins sore or damaged. ? Receiving IV fluids for a long period of time. ? Pain medicine. ? Total Parenteral Nutrition: This is also called TPN. TPN is a special liquid food that goes directly into your veins. ? Blood ? Chemotherapy (Medicine for cancer) What are the benefits of having a PICC line put in? Having a PICC line may keep your arm from being stuck many times with a needle to draw blood orstart an IV (intravenous catheter) . ??? Through a PICC catheter, you may have blood taken for tests. You may also get IV fluids and medicines quickly and easily. ??? Small veins can be damaged or irritated by certain drugs or nutritional solutions. A PICC line helps to decrease vein irritation from antibiotics, IV pain drugs, or IV cancer drugs. ??? A PICC line can be left in place when you go home. If you go home with a PICC line in place, home care can be set up via the nurse Project Reservoir Engineer to help you. What are possible complications of having a PICC line put in? Some possible complications are: ??? bruising, swelling, or infection in the arm with the PICC line ??? mal-positioned catheter (catheter tip in wrong place) ??? occlusion (blocked catheter) ??? mechanical phlebitis (vein irritation) and thrombosis (clot) Your doctor is the person you should talk to if you have questions about what would happen if you do not choose to have a PICC line put in. Your doctor can talk to you about other choices you may have. What should I expect when it is put in? A written consent that gives your ok to have it put in needs to be signed after you understand thatyou are going to have a PICC put in, and all your questions about the procedure have been answered to your satisfaction. This is a safety feature that the hospital practices before doing procedures. An experienced nurse who has been through special training and education will be putting this catheter in. The procedure is done in a specially equipped room in Interventional Radiology on the third floor. The PICC nurse will first talk to you about any questions that you may have. The PICC nurse will explain to you what is going to be done before starting. Once you arrive in the procedure room in Interventional Radiology, the PICC nurse will then set up for the procedure. She will unwrap the sterile kit and open the needed supplies. A gown and mask andgloves will be worn while putting it in. An ultrasound machine will be used to help guide the catheter in the right place. This machine uses a handle with sound waves to find the vein. The area on your arm where the catheter will be put in is then numbed with a medicine put under your skin with a tiny needle. The nurse will then put in the catheter using fluoroscopy (a type of x-ray) as a guide. Once the catheter is in your vein, it will be threaded up your arm to the area beforeyour heart. While it is being threaded, you may be asked to turn your head. When the catheter is in, the nurse will place a small dressing on the site along with a little damian which will help keep the catheter in place. After the procedure is done, a radiologist (doctor in x-ray department) will look at your x-ray to make sure that the end of the catheter is in proper position to give your fluids and/or medications. What should I expect in the care of my PICC? A dressing that is specially made to prevent infections will be put on. After this, the dressing will only be changed once a week unless it needs it sooner. If you go home with the catheter in, you may take a shower as long as you keep the site dry. You can do this by wearing a specially fitted PICC protector that will be provided to you before dischargefrom the hospital. The dressing at the site must be kept clean and dry. It is important that you watch for signs of infection at the site. Your healthcare provider should be notified if these occur: ??? Redness ??? Swelling ??? Pus ??? Pain at the site Other reasons to notify your healthcare provider are: ??? Catheter becomes partially or totally removed ??? Unable to infuse medication/fluid ??? Unable to draw back blood from the catheter. This may be an early sign that a clot is forming on the end of the catheter. If this occurs, a medicine called Cathflo may be used to dissolve this clot. Ask the PICC nurse or your doctor, any questions you may have so you feel secure in consenting to having a PICC line. References: Vascular Access Device Selection, Insertion, and Management, [employer] 07/14. A Review of the Efficacy, Safety, Use, and Administration of Cathflo, [employer] 2005 * Plan of Care - Becky Hairston RN - 01/29/2013 2:23 AM EDT Problem: Pain, Acute (Adult, Obstetric) Goal: Acute Pain: Acceptable Pain Control/Comfort Level - Pain, Acute (Adult, Obstetric) Outcome: Present (see interventions, notes) Pt c/o occasional soreness r/t L hip. Reports mostly comfortable, takes PRN Dilaudid tablet when needed. Pt encouraged to discuss pain w/ staff Problem: Urine Elimination, Impaired (Adult, Obstetric) Goal: Urine Elimination, Impaired: Effective Urinary Elimination Outcome: Present (see interventions, notes) Leakage around Diallo insertion site; scrotum swollen. Fannin pads utilized to absorb urine leakage, scrotal/perineal area cleansed and dried * Plan of Care - Paola Lou RN - 01/28/2013 4:04 AM EDT Problem: Pain, Acute (Adult, Obstetric) Goal: Acute Pain: Acceptable Pain Control/Comfort Level - Pain, Acute (Adult, Obstetric) Outcome: Present (see interventions, notes) Pt with intermittent pain of 2/10, states My left hip leg is sore. Pt requests prn tylenol and reports adeq relief with medication. Pt is encouraged to let staff know if pain increases or becomes intolerable. Pt educated on the importance of pain control in the healing process. Pt verbalized understanding. Will continue to monitor. Problem: Urine Elimination, Impaired (Adult, Obstetric) Goal: Urine Elimination, Impaired: Effective Urinary Elimination Outcome: Present (see interventions, notes) Pt has diallo catheter in place, but leakage around catheter insertion site is present. Urology teamaware. Skin cleansed and peripad used to collected drainage/leakage. Will continue to monitor. Problem: Pressure Ulcer Risk (Using Josh Scale) (Adult, Obstetric) Goal: Pressure Ulcer Risk (using Josh Scale): Tissue Integrity Outcome: Absent and monitoring Pt is encouraged turn and reposition self in bed. Pt educated on importance of maintaining skin integrity and the therapeutic positions that decrease pressure and enhance circulation. Pt demonstratesthe ability to reposition self. Mepilex sacrum border on and intact. Will continue to monitor. Problem: Trauma/Injury Risk (Adult, Obstetric) Goal: Trauma/Injury Risk: Absence of Trauma/Injury/Falls Outcome: Absent and monitoring Pt is currently free of injury and falls. Pt denies SOB, CP, and dizziness. A+Ox4. Bed is in low locked position and call eaton in reach. Pt demonstrates appropriate use of call eaton by ringing for assistance when getting oob and as needed. Will continue to monitor. * Plan of Care - Nancy Hardin RN - 01/27/2013 1:42 PM EDT Problem: Pain, Acute (Adult, Obstetric) Goal: Acute Pain: Acceptable Pain Control/Comfort Level - Pain, Acute (Adult, Obstetric) Patient states that pain is a 2/10 on pain number scale located on left groin area. PRN pain medication has been administered. Continue to monitor patient. Problem: Urine Elimination, Impaired (Adult, Obstetric) Goal: Urine Elimination, Impaired: Effective Urinary Elimination Patient has catheter in place and there is urinary leakage around catheter from penis. Gauze is covering drainage. Continue to monitor. Problem: Pressure Ulcer Risk (Using Josh Scale) (Adult, Obstetric) Goal: Pressure Ulcer Risk (using Josh Scale): Tissue Integrity Patient states that he is frequently moist due to leakage around catheter. SCD's are worn when patient is in bed. He moves to chair/bed with 1 assist. Oral nutrition/hydration is being encouraged. Problem: Trauma/Injury Risk (Adult, Obstetric) Goal: Trauma/Injury Risk: Absence of Trauma/Injury/Falls Patient ambulates with 1 assist to/from chair. Alert/oriented x4 and uses call light appropriately.Obstacles are removed and non skid footwear is applied during ambulation. * Plan of Care - Latanya Preciado RN - 01/27/2013 3:50 AM EDT Problem: Pain, Acute (Adult, Obstetric) Goal: Acute Pain: Acceptable Pain Control/Comfort Level - Pain, Acute (Adult, Obstetric) Pt resting comfortably in bed. Using ORE FEEDER appropriately. Problem: Urine Elimination, Impaired (Adult, Obstetric) Goal: Urine Elimination, Impaired: Effective Urinary Elimination Diallo in place. Leaking around site, team aware. Gauze used to protect surrounding skin. Problem: Pressure Ulcer Risk (Using Josh Scale) (Adult, Obstetric) Goal: Pressure Ulcer Risk (using Josh Scale): Tissue Integrity Pt able to reposition self in the bed. Preventative mepilex c/d/i. LLQ SHAINA dressing c/d/i. * Plan of Care - Tomasa De Jesus RN - 01/26/2013 5:06 PM EDT Problem: Pain, Acute (Adult, Obstetric) Intervention: Acute Pain: Signs and Symptoms Pt admitted 01/23/13 s/p robotic prostatectomy 11/20 complicated with pelvic hematoma. Septic requiring pressors. Angio for embolization internal iliac pseudoaneurysm and SHAINA drain LLQ. Denies pain. PCAhydromorphone as prn. Transfer orders to [facility] 46a. Report called to Jessica. updated. * Initial Assessments - AnniebillyBrent pena W, PT - 01/26/2013 4:12 PM EDT Physical Therapy Initial Evaluation ISCU Patient profile: Patient is a 62 y.o. male of Lesly Correia MD, admitted in transfer on 01/23/2013 c/o bilateral hip pain, found to have L ileopsoas hematoma, taken to IR for embolization and drain placement. Post procedure complicated by hypotension; pt has bacteremia and has r/o for endocarditis Patient Active Problem List Diagnoses Code ??? S/P prostatectomy V45.89 ??? Prostate cancer 185 ??? Postoperative hemorrhage 998.11 ??? S/P AVR (aortic valve replacement) V43.3 Past Surgical History Procedure Date ??? Lap, prostatectomy, radical, w/nerve spare 11/20/2012 @LAPAROSCOPIC PROSTATECTOMY, ROBOTICS ASSISTED performed by Presley Madrid MD at [facility] MAIN OR ??? Lap, pelvic lymphadenectomy 11/20/2012 LAPAROSCOPY,WITH BILATERAL TOTAL PELVIC LYMPHADENECTOMY, ROBOTIC performed by Presley Madrid MD at [facility] MAIN OR ? ? Cystourethroscopy w/irrig & evac clots 12/27/2012 CYSTO, IRRIGATION & EVACUATION OF CLOTS performed by Presley Madrid MD at [facility] MAIN OR ??? 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 Stairs: steps to enter; basement Baseline Mobility: independent; working Equipment at home: not using ambulatory assist devices Precautions/Special Considerations: fall risk; HTN; Subjective: Let's see if I have pain Mental Status/Behavior: cooperative; normal mentation Vital Signs: Last value Range last 8 hrs Temperature Temp: 37 ??C (98.6 ??F) Temp: [37 ??C (98.6 ??F)-37.1 ??C (98.8 ??F)] Heart Rate Heart Rate: 92 Heart Rate: [84-92] Blood Pressure BP: 101/52 mmHg Respiratory Rate Resp: 22 Resp: [16-22] SpO2 SpO2: 97 % SpO2: [97 %-100 %] HR: 86 BP: 154/79(100) R wrist a-line SpO2: 97% on RA Airway clearance: moist cough since ALEX; not clearing secretions; easily winded with activity Pain: minimal c/o pain; not using ORE FEEDER Skin: edematous L/Es; old L DVT; mild genital swelling ROM: U/Es WFL actively; R L/E WFL; L L/E abducted/ rotated externally (habitual posture); mov't WFLsave adduction Strength: R L/E ~3+/5 range; L hip in 2-/5 range (not new) quad 3-/5 range; Motor Control: has learned to compensate/substitute for L/E weakness as legs don't buckle on stance Bed Mobility: bed rest orders Rolls with difficulty L L/E placement Scoots without assist. Semi-supine <-> Sit with moderate L/E placement assist. Tolerates chair position of bed: dangle comfortable Balance: Sit: stable Stand: close guard; no balance loss standing Transfers: Sit <-> Stand without assist, contact guard Stand - pivot - sit: n/t Requires mechanical lift at this time: no Gait: pt did not walk today; need activity as tolerated order Informed Consent: The family and patient agree to and understand the PT treatment plan and goals. Education: family and patient have been educated on Role of therapy and verbalize understanding. Patient status, treatment, and mobility recommendations discussed with nursing. Assessment: pleasant pt with long standing L/E weakness, L>>R, pain and swelling; for which pt has learned to compensate for; pt may benefit from out pt therapy to improve L/E weakness Goals: To be achieved while in hospital: 1. Maintain and improve ROM in neck, trunk, and extremities; especially active mov't L L/E 2. Assist pt in maintaining clear airway. 3. Assist pt in maintaining skin and joint integrity through positioning 4. Pt will participate in mobility progression toward upright as tolerated/appropriate. 5. Pt will participate in active/active assisted exercise to promote strength and ROM for functional mobility Plan: reassess mobility status next week; ensure that pt walking safely and can negotiate stairs prior to d/c; encourage out pt therapy to strengthen L/Es and prevent contractures and/or abnormal legpostures Pt to be seen 3-5 times per week for therapy including Bed mobility, Transfers, Stairs, Exercise, Breathing exercises, Gait , Activity pacing/Energy conservation and Discharge planning. Discharge Recommendations: home with community/family help; out pt PT for strengthening Total time spent with patient: 50 minutes Total timed interventions: 0 minutes (initial eval) Pager: [phone] BRENT HURD, PT 01/26/2013 Physical Therapy Rehabilitation Department * Consult Note - Keaun Yeung MD - 01/26/2013 3:21 PM EDT Inpatient Cardiology Initial Consultation Note Date of Consultation: 01/26/2013 Cardiology Consult Attending: Place of Service: ICU Attending Requesting Consult: Reason for Consult: possible endocarditis I have reviewed the available records, interviewed and examined the patient. HPI: Dillan Rodgers is a 62 y.o. male had a St.Marvin mechanical aortic valve replacement FA in 2001 for aortiv valve replacement done when he was 52 y/o. He follows at yearly for this. This was done in the setting of worsening shortness of breath. He is on chronic coumadin. He was diagnosed with prostate ca in . He was on testosterone for lack of libido at that time. In November he had a radical prostatectomy.He has had persistant hematuria since his prostatectomy. He later developed left lower extremity DVT, pelvic hematoma. He had an IVC filter placed as he had this DVT while on coumadin. He is back here now with worsening pelvic pain and left leg pain. He was found to have enlarging pelvic hematoma which was most likely infected. He was also found to havean actively bleeding source. He had gelfoam embolization of left internal iliac artery yesterday. He had a PC draining of his pelvic abscess. Cultures from the abscecc fluid and blood culture are grow ing Enterococcus fecalis(two blood cultures). 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 He denied any prior chest pain at rest or with exertion. No orthopnea or PND. No palpitaitons. No syncopal spells. He did admit to fever, chills and generalized body aches prior to this admission. Active Problem List: No resolved problems to display. Active Hospital Problems Diagnoses ??? Postoperative hemorrhage ??? S/P AVR (aortic valve replacement) ??? S/P prostatectomy Resolved Hospital Problems Diagnoses Date Resolved Active Non-Hospital Problems Diagnoses ??? Prostate cancer Review of Systems: Constitutional: Appetite is good, no wt loss or wt gain. HEENT: No visual symptoms. No nasal or ear discharge. Denies any headaches.(- ) cough. CVS: as per HPI Pulmonary: (- )cough, (- )shortness of breath, no wheezing. GI: Denies nasea, emesis, no abdominal pain, no diarrhea or constipation, no bleeding per rectum orblack stools. Genitourinary: Denies dysuria, difficulty urination or blood in the urine Hematology: denies easy bruising or bleeding Musculoskeletal: (- ) Joint aches, (- ) Joint swelling, Denies any bony pain Endocrine: +( ) Fatigue, No heat or cold intolerance, polyuria or polydypsia Neuro: denies any visual symptoms, no focal weakness or parasthesias. (- ) Dizziness. No involuntary movements. Skin: No rashes or easy bruising Psychiatry: Denies being depressed, denies anxiety. Past Medical and Surgical History: No past medical history on file. Past Surgical History Procedure Date ??? Lap, prostatectomy, radical, w/nerve spare 11/20/2012 @LAPAROSCOPIC PROSTATECTOMY, ROBOTICS ASSISTED performed by Presley Madrid MD at [facility] MAIN OR ??? Lap, pelvic lymphadenectomy 11/20/2012 LAPAROSCOPY,WITH BILATERAL TOTAL PELVIC LYMPHADENECTOMY, ROBOTIC performed by Presley Madrid MD at [facility] MAIN OR ? ? Cystourethroscopy w/irrig & evac clots 12/27/2012 CYSTO, IRRIGATION & EVACUATION OF CLOTS performed by Presley Madrid MD at [facility] MAIN OR ??? Ct retroperitoneal abscess drain 01/24/2013 Medications: Current Facility-Administered Medications Ordered in Epic Medication Dose Route Frequency Provider Last Rate Last Dose ??? sodium chloride 0.9% 500 mL IV bolus Intravenous Once Corrina Olson MD ??? midazolam (VERSED) injection 1 mg 1 mg Intravenous Once Yanira Sexton MD 1 mg at 01/26/13 1200 ??? ampicillin-sulbactam (UNASYN) 1.5 g vial attach to sodium chloride 0.9% 50 mL Mini-Bag Plus 1.5g Intravenous Q6H [facility] Clyde Ruiz MD 1.5 g at 01/26/13 1400 ??? midazolam (VERSED) injection 3 mg 3 mg Intravenous Once Yanira Sexton MD 3 mg at 01/26/13 1315 ??? DISCONTD: vancomycin 1.25 g sodium in chloride 0.9% 250 mL 1.25 g Intravenous Q12H Corrina Olson MD 1,250 mg at 01/26/13 0800 ??? Vancomycin Level - MAR Order Reminder NOT APPLICABLE Once Marcos Giang MD ??? lactated ringers 500 mL IV bolus Intravenous Once Marcos Giang MD ??? sodium chloride 0.9% 500 mL IV bolus Intravenous Once Corrina Olson MD ??? HYDROmorphone (DILAUDID) injection 0.4-0.8 mg 0.4-0.8 mg Intravenous Q2H PRN Leonardo Barrios MD ??? sodium chloride 0.9% infusion 10 mL/hr Intravenous Continuous Clyde Ruiz MD 10 mL/hr at 01/25/13 1800 10 mL/hr at 01/25/13 1800 ??? sodium chloride 0.9% infusion 10 mL/hr Intravenous Continuous Clyde Ruiz MD 10 mL/hr at 01/25/13 0730 10 mL/hr at 01/25/13 0730 ??? sodium chloride 0.9 % flush 5 mL 5 mL Intravenous Q12H Julius Servin MD 5 mL at 01/26/13 0545 ??? chlorhexidine (PERIDEX) 0.12 % oral solution 15 mL 15 mL Oral Q12H [facility] Dillan Liao MD 15 mL at 01/26/13 0900 ??? sodium chloride 0.9% infusion 10 mL/hr Intravenous Continuous PRN Dillan Liao MD 10 mL/hrat 01/25/13 1800 10 mL/hr at 01/25/13 1800 ??? HYDROmorphone (DILAUDID) 1 mg/mL ORE FEEDER 30 mL Intravenous ORE FEEDER Only Dillan Liao MD ??? diphenhydrAMINE (BENADRYL) injection 25 mg 25 mg Intravenous Q30 Min PRN Dillan Liao MD ??? ORE FEEDER [employer] Intravenous Continuous Dillan Liao MD ??? ondansetron (ZOFRAN) injection 4 mg 4 mg Intravenous Q8H PRN Dillan Liao MD ??? DISCONTD: vancomycin 750 mg in dextrose 5% 150 mL 750 mg Intravenous Q12H Leonardo Barrios MD 750 mg at 01/25/13 2300 ??? DISCONTD: Vancomycin Level - MAR Order Reminder NOT APPLICABLE Per Pharmacy Leonardo Barrios MD ??? DISCONTD: piperacillin-tazobactam (ZOSYN) 3.375 g in dextrose 5% 50 mL 3.375 g Intravenous Q8H Leonardo Barrios MD 3.375 g at 01/26/13 1100 ? ? DISCONTD: NORepinephrine 16 mcg/mL (standard ADULT & Ree greater than 20kg) infusion 0-30 mcg/min Intravenous Continuous Nelida Collins MD 2 mcg/min at 01/25/13 1600 ??? DISCONTD: ondansetron (ZOFRAN) injection 4 mg 4 mg Intravenous Q30 Min PRN Dillan Liao MD ??? fluticasone-salmeterol (ADVAIR) 100-50 mcg/dose diskus inhaler 1 puff 1 puff Inhalation Q12H Sue Brennan MD 1 puff at 01/26/13 1145 ??? levothyroxine (SYNTHROID) tablet 50 mcg 50 mcg Oral Daily Sue Brennan MD 50 mcgat 01/26/13 0600 ??? montelukast (SINGULAIR) tablet 10 mg 10 mg Oral Nightly Sue Brennan MD 10 mg at01/25/13 2100 ??? sodium chloride 0.9 % flush 5 mL 5 mL Intravenous Q12H Sue Brennan MD 5 mL at 01/26/13 1145 ??? naloxone (NARCAN) injection 0.2 mg 0.2 mg Intravenous Q1 Min PRN Sue Brennan MD ??? esomeprazole (NEXIUM) capsule 40 mg 40 mg Oral Daily Sue Brennan MD 40 mg at 01/25/13 0801 Or ??? esomeprazole (NEXIUM) injection 40 mg 40 mg Intravenous Daily Sue Brennan MD 40mg at 01/26/13 0900 ??? docusate sodium (COLACE) capsule 100 mg 100 mg Oral BID Sue Brennan MD 100 mg at 01/25/13 2100 ??? DISCONTD: sodium chloride 0.9% infusion 150 mL/hr Intravenous Continuous Marcos Giang MD 150 mL/hr at 01/26/13 0753 150 mL/hr at 01/26/13 0753 No current Epic-ordered outpatient prescriptions on file. Prior To Admission Medications: Prescriptions prior to admission Medication Sig Dispense Refill ??? cyclobenzaprine (FLEXERIL) 5 mg tablet Take [...] tablet Take 50 mcg by mouth daily. Allergies: No Known Allergies Family History: No family history on file. Social History and Habits: History Social History ??? Marital Status: Spouse Name: N/A Number of Children: N/A ??? Years of Education: N/A Occupational History ??? Not on file. Social History Main Topics ??? Smoking status: Former Smoker -- 1.0 packs/day for 1 years Types: Cigarettes Quit date: 11/02/1986 ??? Smokeless tobacco: Never Used ??? Alcohol Use: 3.0 oz/week 5 Shots of liquor per week 2 gin and tonic per night ??? Drug Use: No ??? Sexually Active: No Other Topics Concern ??? Not on file Social History Narrative ??? No narrative on file Physical Exam: Last set of vitals and range over past 24 hours: Last value Range last 24 hrs Temperature Temp: 37 ??C (98.6 ??F) Temp: [36.4 ??C (97.5 ??F)-38 ??C (100.4 ??F)] Heart Rate Heart Rate: 92 Heart Rate: [84-103] Blood Pressure BP: 101/52 mmHg BP: -- Respiratory Rate Resp: 22 Resp: [16-26] SpO2 SpO2: 97 % SpO2: [97 %-100 %] Intake/Output Summary (Last 24 hours) at 01/26/13 1521 Last data filed at 01/26/13 1200 Gross per 24 hour Intake 2428 ml Output 2355 ml Net 73 ml Patient Vitals for the past 168 hrs: Weight 01/23/13 2311 99.2 kg (218 lb 11.1 oz) Constitutional: well built, lying in bed in looks disheaveled HENT:head normocephalic, no evidence of trauma, no nasal or aural discharge, no exudates in oral cavity, oral mucosa appears moist Eyes: EOMI, no icterus or pallor, Neck: supple, no thyromegaly or lymphadenopathy CVS: RR, normal S1and mechanical S2, no murmur, no gallop or rub, JVP not distended , pedal pulse difficult to palpate on left Pulmonary: good air entry bilaterally,CTAB. GI: abdomen soft, NTND, bowel sounds positive, no rebound or gaurding, no organomegaly Musculoskeletal: no joint swellings or deformities Extremities:pedal edema: 3 + pitting edema on the left and 1+ edema on right Skin: no rashes noted Neuro: no gross focal deficits on limited neuro exam Psych: mood and affect normal. Not anxious looking. Laboratory (Last 24 Hours): Recent Results (from the past 24 hour(s)) VANCOMYCIN, TROUGH Component Value Range Vanc Trough 10.1 CBC (WITH DIFF) Component Value Range WBC 9.4 4.0 - 10.0 x10(3)/mcL RBC 2.56 (*) 4.63 - 6.08 x10(6)/mcL Hemoglobin 7.0 (*) 13.7 - 17.5 gm/dL Hematocrit 22.2 (*) 40.0 - 51.0 % MCV 86.7 79.0 - 92.0 fL MCH 27.3 25.6 - 32.2 pg MCHC 31.5 (*) 32.0 - 36.5 gm/dL Platelets 220 145 - 370 x10(3)/mcL RDWSD 63.1 (*) 35.0 - 46.0 fL RDWCV 19.8 (*) 10.9 - 14.4 % MPV 9.7 9.0 - 12.0 fL BMP W/FASTING GLUCOSE Component Value Range Glucose Fasting 94 65 - 99 mg/dL BUN 19 10 - 20 mg/dL Creatinine 1.38 0.80 - 1.50 mg/dL Sodium 140 135 - 145 mmol/L Potassium 3.5 3.5 - 5.0 mmol/L Chloride 111 (*) 98 - 107 mmol/L CO2 23 22 - 31 mmol/L Anion Gap 6 5 - 15 mmol/L Calcium 7.8 (*) 8.5 - 10.5 mg/dL Estimated GFR 52 (*) >=60 PROTHROMBIN TIME Component Value Range PT 25.6 (*) 12.0 - 15.0 sec INR 2.2 (*) 0.9 - 1.1 APTT Component Value Range PTT 60 (*) 25 - 35 sec DIFFERENTIAL, AUTOMATED Component Value Range Neutrophils % 80.4 (*) 34.0 - 71.0 % Neutr Abs (ANC) 7.56 (*) 1.50 - 6.30 x10(3)/mcL Lymphocytes % 8.8 (*) 19.0 - 53.0 % Lymphocytes Abs 0.8 (*) 1.0 - 3.6 x10(3)/mcL Monocytes % 5.5 4.0 - 13.0 % Monocyte Abs 0.5 0.2 - 1.0 x10(3)/mcL Eosinophils % 4.7 0.0 - 7.0 % Eosinophils Abs 0.4 0.0 - 0.5 x10(3)/mcL Basophils % 0.4 0.0 - 2.0 % Basophils Abs 0.0 0.0 - 0.2 x10(3)/mcL Immature Gran % 0.20 0.00 - 0.66 % Yeni Gran Abs 0.02 0.00 - 0.05 x10(3)/mcL CBC (WITH DIFF) Component Value Range WBC 11.6 (*) 4.0 - 10.0 x10(3)/mcL RBC 2.66 (*) 4.63 - 6.08 x10(6)/mcL Hemoglobin 7.3 (*) 13.7 - 17.5 gm/dL Hematocrit 23.3 (*) 40.0 - 51.0 % MCV 87.6 79.0 - 92.0 fL MCH 27.4 25.6 - 32.2 pg MCHC 31.3 (*) 32.0 - 36.5 gm/dL Platelets 238 145 - 370 x10(3)/mcL RDWSD 64.3 (*) 35.0 - 46.0 fL RDWCV 20.0 (*) 10.9 - 14.4 % MPV 9.7 9.0 - 12.0 fL BMP W/FASTING GLUCOSE Component Value Range Glucose Fasting 88 65 - 99 mg/dL BUN 18 10 - 20 mg/dL Creatinine 1.14 0.80 - 1.50 mg/dL Sodium 144 135 - 145 mmol/L Potassium 3.4 (*) 3.5 - 5.0 mmol/L Chloride 115 (*) 98 - 107 mmol/L CO2 20 (*) 22 - 31 mmol/L Anion Gap 9 5 - 15 mmol/L Calcium 7.6 (*) 8.5 - 10.5 mg/dL Estimated GFR >60 >=60 DIFFERENTIAL, AUTOMATED Component Value Range Neutrophils % 81.4 (*) 34.0 - 71.0 % Neutr Abs (ANC) 9.42 (*) 1.50 - 6.30 x10(3)/mcL Lymphocytes % 9.1 (*) 19.0 - 53.0 % Lymphocytes Abs 1.1 1.0 - 3.6 x10(3)/mcL Monocytes % 3.7 (*) 4.0 - 13.0 % Monocyte Abs 0.4 0.2 - 1.0 x10(3)/mcL Eosinophils % 5.3 0.0 - 7.0 % Eosinophils Abs 0.6 (*) 0.0 - 0.5 x10(3)/mcL Basophils % 0.4 0.0 - 2.0 % Basophils Abs 0.0 0.0 - 0.2 x10(3)/mcL Immature Gran % 0.10 0.00 - 0.66 % Yeni Gran Abs 0.01 0.00 - 0.05 x10(3)/mcL Radiology: CXR - clear apart for right IJ Cl ALEX:: 1. There is no echocardiographic evidence of endocarditis. 2. The mechanical aortic valve appears well-seated and appears to be functioning normally. Mean systolic gradient by ALEX is 11 mmHg (but alignment with flow is suboptimal). No other notable valvular findings. 3. Biventricular systolic function appears mildly reduced. LV Ejection fraction is estimated to be 50%. 4. 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 5. See remainder of report for additional findings. Recommend transthoracic imaging for better Doppler assessment of the aortic valve prosthesis and evaluation of the anterior aortic root. Assessment anb recommendations: Dillan Rodgers is a 62 y.o. Male with mechanical St.Marvin aortic valve now with enterococcus fecalisbacteremia with pelvic abcess. He also has gram negative rods in the pelvic fluid and blood cultures which is less likely to cause infective endocarditis. This is a common bacteria causing infective endocarditis and he has predisposing condition for Infective endocarditis(mechanical valve). Currently he does not have any vascular or immunological phenomena suggestive of IE. Clinically he does nothave a murmur and there is no evidence of heart failure. Due to moderate likely hoodness of IE based on his blood cultures and fever, he was recommended a ALEX to rule out IE. His ALEX today does not show any evidence of endocarditis. His antibiotic regimen can be tailored to the treatment of his pelvic abscess according to ID recommendations. 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 Cardiology service will signoff. Please call if further questions arise. ETHAN MTZ MD 01/26/2013 Cardiology Staff Note: I have interviewed and examined the patient and agree with the findings, impression and recommendations as are described in 's note. The ALEX today did not find evidence of endocarditis. The ALEX findings were suggestive of borderline biventricular function and his systolic function could bemore clearly visualized and estimated by use of a transthoracic echo. Keanu Yeung M.D. Staff [employer] Manager [facility] Pager #[phone] * Consult Note - Cely Baires MD - 01/26/2013 11:01 AM EDT INFECTIOUS DISEASE RED TEAM FELLOW INPATIENT CONSULT NOTE Reason for Consult: We are seeing Dillan Rodgers at the request of Dr Hope for the evaluation of polymicrobial bacteremia and infected L pelvic hematoma Admission date: 01/23/2013 HPI: Dillan Rodgers is a 62 y.o. male sp metallic AVR on coumadin and he is s/p robotic prostatectomy onFebruary 11 for high risk prostate cancer. His post- operative course was complicated by developmentof a pelvic hematoma in addition to development of a LLE DVT despite anticoagulation. The patient received an IVC filter at the end of December. Since his discharge from last hospitalization, he has been experiencing intermittent hematuria requiring clot evacuation on December 27. He had a cystoscopy oneweek ago that showed a healed anastomosis and no clot in the bladder. He does report having difficulty to void at times which he feels is due to clot in his bladder. The morning of admission he states he woke up with terrible right hip pain and left lower leg pain which took him to the hospital. Hehad a temp to 39 there and got IV Cipro. No fever or chills before that as he was ok, only ongoing hematuria. CT scan demonstrated left sided pelvic hematoma, with loculation, gas within the collection and active bleeding as a 2.2 cm contrast collection posteriorly was seen, consistent with a pseudoaneurysm He was taken to IR on 01/24 for L common iliac, internal iliac,superior gluteal arteries arteriogram with L internal iliac artery embolization with gelfoam. Post IR procedure pt was hypotensive so he was transferred to ICU. He also underwent IR drainage of a this pelvic collection where contrast extended irregularly throughout left pelvic 12 x 8 x 6 cm collection, including caudal extent with gas loculations. Drain placed into caudal aspect of collection with purulence noted. GS showed many WBCs,GNRs and GPCs with cultures showing pansensitive E coli and PCN sensitive E faecalis. After the procedure he was hypotensive no responsive to fluids and spiked a T of 39. WBC was 1.3 so he was transferred to ICU for pressors. His blood cultures have also showed E Coli and E faecalis. Pt was stared empirically on Pip/tazo and Vanco since 01/24 and has spiked T on the 38.5 range. Pt is off pressors now, extubated, awake and with no specific complains ID was asked to see patient to asses for antibiotic recommendations ROS: Gen: No f/c/d, malaise, wt change, new or worsening fatigue, dizziness. HEENT: No headaches, vision changes, sinus pain/pressure, rhinorrhea Pulm: No cough, hemoptysis, wheeze, dyspnea, SOB. Cardio: No chest pain, palpitations, orthopnea, or PND. GI: No n/v/c/d, abdominal distension, bloating, jaundice, or heartburn. : No dysuria, pyuria, hematuria or change in urinary frequency/volume. MSK: No arthralgias, myalgias, edema, cyanosis. Neuro: No n/w/p. Gait nl. Skin: No rashes. 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 A&Ox3. HEENT: PERRLA. No cervical LAD. Pulm: CTAB. Nl effort. Cardio: RRR, mechanical sound of S1, no murmurs, rubs or gallops GI: Abd S/ND/NT w/o rebound or guarding. No jaundice.Nl BS. Back: No CVA TTP. L drain in L flank with thick serosanguinolent secretion MSK: Palpable pedal pulses b/l. Neuro: No gross deficits noted Skin: No rashes. RIJ line clean with no erythema or secretion R arm A line with no secretion or erythema Labs Lab Results Component Value Date WBC 9.4 01/26/2013 RBC 2.56* 01/26/2013 HGB 7.0* 01/26/2013 HCT 22.2* 01/26/2013 MCV 86.7 01/26/2013 MCH 27.3 01/26/2013 MCHC 31.5* 01/26/2013 PLATELET 220 01/26/2013 RDWCV 19.8* 01/26/2013 Lab Results Component Value Date NA 140 01/26/2013 K 3.5 01/26/2013 CL 111* 01/26/2013 CO2 23 01/26/2013 Lab Results Component Value Date BUN 19 01/26/2013 CREATININE 1.38 01/26/2013 No results found for this basename: ALT, AST, GGT, ALKPHOS, BILITOT Micro: 01/24 PROCEDURE: Body Fluid Culture SOURCE: Pelvic Fl COLLECTED: 01/24/2013 16:45 FREE TEXT SOURCE: CT GUIDED PELVIC FLUID COLLECTION DRAIN STARTED: 01/24/2013 17:24 PLACEMENT STAINS / PREPARATIONS Gram Stain Report Verified:01/24/2013 18:17 Moderate White Blood Cells seen Few Gram Negative Rods seen Rare Gram Positive Cocci in pairs seen PRELIMINARY REPORT Preliminary Report Verified:01/26/2013 09:20 Moderate Escherichia coli Moderate Enterococcus species SUSCEPTIBILITY RESULTS Escherichia coli NINFA Interp Ampicillin S Ampicillin/Sulbactam S Aztreonam S Cefazolin S Cefoxitin S Ceftazidime S Ceftriaxone S Cefuroxime S Ciprofloxacin S Doripenem S Gentamicin S Levofloxacin S Meropenem S Piperacillin/Tazobactam S Trimethoprim/Sulfa S Tetracycline S Tobramycin S Patient: DILLAN RODGERS MR#: [id number] Enterococcus species NINFA Interp Ampicillin(1) S Levofloxacin S Erythromycin I Penicillin S Vancomycin S 01/24 PROCEDURE: Blood Culture SOURCE: Blood COLLECTED: 01/24/2013 10:22 BODY SITE: Right Antecubital STARTED: 01/24/2013 10:52 STAINS / PREPARATIONS Bottle Gram Stain Verified:01/25/2013 01:46 Growth detected in aerobic bottle. Gram Negative Rods seen Gram Positive Cocci in chains Bottle Gram Stain Verified:01/25/2013 00:05 Growth detected in anaerobic bottle. Gram Negative Rods seen Gram Positive Cocci in chains Results called to and read back by DR. CORRINA OLSON PRELIMINARY REPORT Preliminary Report Verified:01/26/2013 07:51 Escherichia coli isolated Isolate saved. If future testing is required, contact the Microbiology Commissary Production Supervisor. Enterococcus faecalis isolated Susceptibility testing in progress Patient: DILLAN RODGERS MR#: [id number] SUSCEPTIBILITY RESULTS Escherichia coli NINFA Interp Ampicillin S Ampicillin/Sulbactam S Aztreonam S Cefazolin S Cefoxitin S Ceftazidime S Ceftriaxone S Cefuroxime S Ciprofloxacin S Doripenem S Gentamicin S Levofloxacin S Meropenem S Piperacillin/Tazobactam S Trimethoprim/Sulfa S Tetracycline S Tobramycin S 01/24 urine with E faecalis and E coli, Imagin/17 CT scan Impression Marked interval enlargement of the iliacus hematoma in the left side of the pelvis. Active bleeding at the time of the scan. Multiple air inclusions are consistent with superinfection with gas-forming bacteria. Suspect thrombus within the left femoral vein. Left iliac vein is either highly compressed or occluded. Compression of the inferior aspect of the left ureter, which leads to mild to moderate left pelvicaliectasis. This is especially of note as the right kidney is highly atrophic. Air within the urinary bladder, which may be iatrogenic. 2.5 cm higher attenuation at the urinary bladder neck, which is indeterminate and may represent clot or soft tissue. A focal interruption of the 11th rib on the right at the posterior aspect is only partially included on this exam and not fully evaluated. 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 Impression: Dillan Rodgers is a 62 y.o. male s/p robotic prostatectomy on November 20 complicated with a L pelvic hematoma and ongoing hematuria that got complicated with a suprainfected pelvic hematoma ( left pelvic 12 x 8 x 6 cm collection) and bacteremia with E coli and E faecalis on treatment now Pip/tazo and Vancomycin and sp day # 2 of a drainage of this hematoma trough IR with active drainage trough a drain left. Pt has improved bryson is off pressors and awake, following commands with normalized WBC. We recommend using Unasyn 3g IV q6h as inpatient and stop Vanco and Pip/tazo. Blood cultures from 01/26 are pending and we should wait for at least 48h before placing a PICC line. Pt will need several weeks of IV antibiotics and CT scan will be needed to assess resolution of hematoma. ALEX is schedule and given his mechanical valve, we will follow this results with interest Recommendation: Dc Pip/tazo and Vancomycin Unasyn 3g IV q6h Wait for blood cultures of 01/26 to be negative for 48h before placing PICC line As outpatient recommend Cipro PO and PCN IV for a course of [address] f/u imaging of her infected hematoma x Recommendations discussed with treating team, Consult service will continue to follow patient. Recommendations are above, please page if further consultation required. Case discussed with ID attending Dr Viry Massey MD Fellow, Infectious Disease Pager [phone] ADDENDUM I have seen and examined the patient and I agree with the documentation and findings as outlined above by Dr. Massey. The plan was devised in discussion with me. 62 yo male with AVR in 2001 on coumadin underwent robotic prostatectomy 11/20/12 that was complicated by pelvic hematoma and LLE DVT. He was admitted 3 days ago and underwent IR guided drainage of infected L iliacus hematoma ([id number]) and embolization of the L internal iliac artery. He was initiallyhypotensive with fever spike to 40.8 and required pressors but is now awake, conversant and doing much better in the ICU. Blood and hematoma cultures are growing sensitive E coli and enterococcus faecalis. ALEX is negative for endocarditis. Recommend amp/sulbactam to cover both organisms. He will need continued drainage of his large L sided iliacus hematoma. Expected duration of therapy will be about 4 weeks but will need to extend until his infected hematoma has resolved on follow up imaging. Thanks for calling us to see Mr. Rodgers. Call anytime with questions. Cely Baires MD Infectious Disease Pager [phone] minutes were spent on the floor in care of the patient. 50 minutes in coordination of care. * Plan of Care - Jim Mac - 01/26/2013 3:02 AM EDT Problem: Pain, Acute (Adult, Obstetric) Goal: Acute Pain: Acceptable Pain Control/Comfort Level - Pain, Acute (Adult, Obstetric) Pt. Pain assessed/ managed throughout shift. No pain noted. ORE FEEDER pump ordered, pt. Does not need pain coverage. Will continue to monitor, no problem noted. Problem: Urine Elimination, Impaired (Adult, Obstetric) Goal: Urine Elimination, Impaired: Effective Urinary Elimination Pt. Taught of diallo and drainage from diallo. Skin cleansed, towels used to soak up drainage. Drainage scant, less than previous shift. Will continue to monitor * Miscellaneous - Provider, Scanning - 01/25/2013 1:45 PM EDT * Consult Note - Keanu Yeung MD - 01/25/2013 12:59 PM EDT Inpatient Cardiology Initial Consultation Note Date of Consultation: 01/25/2013 Cardiology Consult Attending: Place of Service: ICU Attending Requesting Consult: Reason for Consult: possible endocarditis I have reviewed the available records, interviewed and examined the patient. HPI: Dillan Rodgers is a 62 y.o. male had a St.Marvin mechanical aortic valve replacement [facility] in 2001 for aortiv valve replacement done when he was 52 y/o. He follows at [facility] yearly for this. This was done in the setting of worsening shortness of breath. He is on chronic coumadin. He was diagnosed with prostate ca in . He was on testosterone for lack of libido at that time. In November he had a radical prostatectomy.He has had persistant hematuria since his prostatectomy. He later developed left lower extremity DVT, pelvic hematoma. He had an IVC filter placed as he had this DVT while on coumadin. He is back here now with worsening pelvic pain and left leg pain. He was found to have enlarging pelvic hematoma which was most likely infected. He was also found to havean actively bleeding source. He had gelfoam embolization of left internal iliac artery yesterday. He had a PC draining of his pelvic abscess. Cultures from the abscecc fluid and blood culture are grow ing Enterococcus fecalis(two blood cultures). 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 He denied any prior chest pain at rest or with exertion. No orthopnea or PND. No palpitaitons. No syncopal spells. He did admit to fever, chills and generalized body aches prior to this admission. Active Problem List: No resolved problems to display. Active Hospital Problems Diagnoses ??? Postoperative hemorrhage ??? S/P AVR (aortic valve replacement) ??? S/P prostatectomy Resolved Hospital Problems Diagnoses Date Resolved Active Non-Hospital Problems Diagnoses ??? Prostate cancer Review of Systems: Constitutional: Appetite is good, no wt loss or wt gain. HEENT: No visual symptoms. No nasal or ear discharge. Denies any headaches.(- ) cough. CVS: as per HPI Pulmonary: (- )cough, (- )shortness of breath, no wheezing. GI: Denies nasea, emesis, no abdominal pain, no diarrhea or constipation, no bleeding per rectum orblack stools. Genitourinary: Denies dysuria, difficulty urination or blood in the urine Hematology: denies easy bruising or bleeding Musculoskeletal: (- ) Joint aches, (- ) Joint swelling, Denies any bony pain Endocrine: +( ) Fatigue, No heat or cold intolerance, polyuria or polydypsia Neuro: denies any visual symptoms, no focal weakness or parasthesias. (- ) Dizziness. No involuntary movements. Skin: No rashes or easy bruising Psychiatry: Denies being depressed, denies anxiety. Past Medical and Surgical History: No past medical history on file. Past Surgical History Procedure Date ??? Lap, prostatectomy, radical, w/nerve spare 11/20/2012 @LAPAROSCOPIC PROSTATECTOMY, ROBOTICS ASSISTED performed by Presley Madrid MD at [facility] MAIN OR ??? Lap, pelvic lymphadenectomy 11/20/2012 LAPAROSCOPY,WITH BILATERAL TOTAL PELVIC LYMPHADENECTOMY, ROBOTIC performed by Presley Madrid MD at [facility] MAIN OR ? ? Cystourethroscopy w/irrig & evac clots 12/27/2012 CYSTO, IRRIGATION & EVACUATION OF CLOTS performed by Presley Madrid MD at [facility] MAIN OR ??? Ct retroperitoneal abscess drain 01/24/2013 Medications: Current Facility-Administered Medications Ordered in [facility] Medication Dose Route Frequency Provider Last Rate Last Dose ??? lactated ringers 1,000 mL IV bolus Intravenous Once Corrina Olson MD ??? lactated ringers 1,000 mL IV bolus Intravenous Once Marcos Giang MD ??? DISCONTD: sodium chloride 0.9% 1,000 mL IV bolus Intravenous Once Marcos Giang MD ??? vancomycin 750 mg in dextrose 5% 150 mL 750 mg Intravenous Q12H Leonardo Barrios MD 750 mg at 01/25/13 1230 And ??? Vancomycin Level - MAR Order Reminder NOT APPLICABLE Per Pharmacy Leonardo Barrios MD ??? piperacillin-tazobactam (ZOSYN) 3.375 g in dextrose 5% 50 mL 3.375 g Intravenous Q8H Leonardo Barrios MD 3.375 g at 01/25/13 1100 ??? HYDROmorphone (DILAUDID) injection 0.4-0.8 mg 0.4-0.8 mg Intravenous Q2H PRN Leonardo Barrios MD ??? sodium chloride 0.9% infusion 10 mL/hr Intravenous Continuous Clyde Ruiz MD 10 mL/hr at 01/24/132138 10 mL/hr at 01/24/132138 ??? sodium chloride 0.9% infusion 10 mL/hr Intravenous Continuous Clyde Ruiz MD 10 mL/hr at 01/24/132139 10 mL/hr at 01/24/132139 ??? iohexol (OMNIPAQUE) 350 mg iodine/mL injection 70,000 mg 200 mL Intra- arterial Once PRN Ermias Moya MD 75 mL at 01/24/13 1500 ??? sodium chloride 0.9 % flush 5 mL 5 mL Intravenous Q12H Julius Servin MD 5 mL at 01/25/13 0511 ??? chlorhexidine (PERIDEX) 0.12 % oral solution 15 mL 15 mL Oral Q12H REI Dillan Liao MD 15 mL at 01/25/13 0801 ??? sodium chloride 0.9% infusion 10 mL/hr Intravenous Continuous PRN Dillan Liao MD ? ? NORepinephrine 16 mcg/mL (standard ADULT & Ree greater than 20kg) infusion 0- 30 mcg/min Intravenous Continuous Nelida Collins MD 30 mL/hr at 01/25/13 1000 8 mcg/min at 01/25/13 1000 ??? HYDROmorphone (DILAUDID) 1 mg/mL ORE FEEDER 30 mL Intravenous ORE FEEDER Only Dillan Liao MD ??? diphenhydrAMINE (BENADRYL) injection 25 mg 25 mg Intravenous Q30 Min PRN Dillan Liao MD ??? ondansetron (ZOFRAN) injection 4 mg 4 mg Intravenous Q30 Min PRN Dillan Liao MD ??? ORE FEEDER capps Intravenous Continuous Dillan Liao MD ??? ondansetron (ZOFRAN) injection 4 mg 4 mg Intravenous Q8H PRN Dillan Liao MD ??? lactated ringers 1,000 mL IV bolus Intravenous Once Dillan Liao MD ??? lactated ringers 1,000 mL IV bolus Intravenous Once Corrina Olson MD ??? fentaNYL 50mcg/mL injection 50 mcg Intravenous Once Corrina Olson MD 50 mcg at 01/24/13 1945 ??? lactated ringers 1,000 mL IV bolus Intravenous Once Corrina Olson MD ??? DISCONTD: fentaNYL 50mcg/mL injection 25-50 mcg Intravenous Q5 Min PRN Jim Martell MD 50mcg at 01/24/13 1640 ??? DISCONTD: midazolam (VERSED) injection 0.5-1 mg 0.5-1 mg Intravenous Q5 Min PRN Harmony Martell MD ??? DISCONTD: ampicillin-sulbactam (UNASYN) injection 1.5 g Intravenous Once Jim Martell MD ??? DISCONTD: PHENYLephrine (DUGLAS-SYNEPHRINE) 20 mg in sodium chloride 250 mL infusion 80 mcg/min Intravenous Continuous Ermias Moya MD 70 mcg/min at 01/24/13 1522 ??? fluticasone-salmeterol (ADVAIR) 100-50 mcg/dose diskus inhaler 1 puff 1 puff Inhalation Q12H Sue Brennan MD 1 puff at 01/24/13 1145 ??? levothyroxine (SYNTHROID) tablet 50 mcg 50 mcg Oral Daily Sue Brennan MD 50 mcgat 01/25/13 0610 ??? montelukast (SINGULAIR) tablet 10 mg 10 mg Oral Nightly Sue Brennan MD 10 mg at01/23/13 2354 ??? sodium chloride 0.9 % flush 5 mL 5 mL Intravenous Q12H Sue Brennan MD 5 mL at 01/25/13 1145 ??? naloxone (NARCAN) injection 0.2 mg 0.2 mg Intravenous Q1 Min PRN Sue Brennan MD ??? sodium chloride 0.9% infusion 150 mL/hr Intravenous Continuous Marcos Giang MD 10 mL/hr at 01/24/13 1845 10 mL/hr at 01/24/13 1845 ??? esomeprazole (NEXIUM) capsule 40 mg 40 mg Oral Daily Sue Brennan MD 40 mg at 01/25/13 0801 Or ??? esomeprazole (NEXIUM) injection 40 mg 40 mg Intravenous Daily Sue Brennan MD 40mg at 01/24/13 0900 ??? docusate sodium (COLACE) capsule 100 mg 100 mg Oral BID Sue Brennan MD 100 mg at 01/25/13 0801 ??? DISCONTD: cyclobenzaprine (FLEXERIL) tablet 5 mg 5 mg Oral TID PRN Sue Brennan MD ??? DISCONTD: hydroCODone-acetaminophen (VICODIN) 5-500 mg per tablet 1-2 tablet 1-2 tablet Oral Q4H PRN Kylah Aponte Sue N, MD 2 tablet at 01/24/13 1000 No current Epic-ordered outpatient prescriptions on file. Prior To Admission Medications: Prescriptions prior to admission Medication Sig Dispense Refill ??? cyclobenzaprine (FLEXERIL) 5 mg tablet Take [...] tablet Take 50 mcg by mouth daily. Allergies: No Known Allergies Family History: No family history on file. Social History and Habits: History Social History ??? Marital Status: Spouse Name: N/A Number of Children: N/A ??? Years of Education: N/A Occupational History ??? Not on file. Social History Main Topics ??? Smoking status: Former Smoker -- 1.0 packs/day for 1 years Types: Cigarettes Quit date: 11/02/1986 ??? Smokeless tobacco: Never Used ??? Alcohol Use: 3.0 oz/week 5 Shots of liquor per week 2 gin and tonic per night ??? Drug Use: No ??? Sexually Active: No Other Topics Concern ??? Not on file Social History Narrative ??? No narrative on file Physical Exam: Last set of vitals and range over past 24 hours: Last value Range last 24 hrs Temperature Temp: 36.7 ??C (98.1 ??F) Temp: [36.1 ??C (97 ??F)-37.4 ??C (99.3 ??F)] Heart Rate Heart Rate: 93 Heart Rate: [85-105] Blood Pressure BP: 101/52 mmHg BP: (79-103)/(46-58) Respiratory Rate Resp: 19 Resp: [14-20] SpO2 SpO2: 100 % SpO2: [94 %-100 %] Intake/Output Summary (Last 24 hours) at 01/25/13 1259 Last data filed at 01/25/13 0820 Gross per 24 hour Intake 78100.1 ml Output 3240 ml Net 7568.1 ml Patient Vitals for the past 168 hrs: Weight 01/23/13 2311 99.2 kg (218 lb 11.1 oz) Constitutional: well built, lying in bed in looks disheaveled HENT:head normocephalic, no evidence of trauma, no nasal or aural discharge, no exudates in oral cavity, oral mucosa appears moist Eyes: EOMI, no icterus or pallor, Neck: supple, no thyromegaly or lymphadenopathy CVS: RR, normal S1and mechanical S2, no murmur, no gallop or rub, JVP not distended , pedal pulse difficult to palpate on left Pulmonary: good air entry bilaterally,CTAB. GI: abdomen soft, NTND, bowel sounds positive, no rebound or gaurding, no organomegaly Musculoskeletal: no joint swellings or deformities Extremities:pedal edema: 3 + pitting edema on the left and 1+ edema on right Skin: no rashes noted Neuro: no gross focal deficits on limited neuro exam Psych: mood and affect normal. Not anxious looking. Laboratory (Last 24 Hours): Recent Results (from the past 24 hour(s)) HEMOGRAM Component Value Range WBC 3.6 (*) 4.0 - 10.0 x10(3)/mcL RBC 2.41 (*) 4.63 - 6.08 x10(6)/mcL Hemoglobin 6.5 (*) 13.7 - 17.5 gm/dL Hematocrit 21.8 (*) 40.0 - 51.0 % MCV 90.5 79.0 - 92.0 fL MCH 27.0 25.6 - 32.2 pg MCHC 29.8 (*) 32.0 - 36.5 gm/dL Platelets 221 145 - 370 x10(3)/mcL RDWSD 63.2 (*) 35.0 - 46.0 fL RDWCV 18.9 (*) 10.9 - 14.4 % MPV 9.8 9.0 - 12.0 fL PREPARE RBC Component Value Range Dispensed? Yes PREPARE RBC Component Value Range Dispensed? Yes PREPARE THAWED PLASMA Component Value Range Dispensed? Yes BODY FLUID CULTURE Component Value Range Body Fluid Culture Value: Patient Name: DILLAN RODGERS Ordered By: PRESLEY MADRID MR#: [id number] LOC: ICUS /Sex: 1950 (62 years), Male PROCEDURE: Body Fluid Culture SOURCE: Pelvic Fl COLLECTED: 01/24/2013 16:45 FREE TEXT SOURCE: CT GUIDED PELVIC FLUID COLLECTION DRAIN STARTED: 01/24/2013 17:24 PLACEMENT STAINS / PREPARATIONS Gram Stain Report Verified:01/24/2013 18:17 Moderate White Blood Cells seen Few Gram Negative Rods seen Rare Gram Positive Cocci in pairs seen PRELIMINARY REPORT Preliminary Report Verified:01/25/2013 07:59 Moderate Gram Negative Rods Moderate Enterococcus species LACTIC ACID, PLASMA Component Value Range Lactate 4.1 (*) 0.5 - 2.2 mmol/L PROTHROMBIN TIME Component Value Range PT 24.3 (*) 12.0 - 15.0 sec INR 2.1 (*) 0.9 - 1.1 APTT Component Value Range PTT 46 (*) 25 - 35 sec CBC (WITH DIFF) Component Value Range WBC 10.9 (*) 4.0 - 10.0 x10(3)/mcL RBC 3.14 (*) 4.63 - 6.08 x10(6)/mcL Hemoglobin 8.6 (*) 13.7 - 17.5 gm/dL Hematocrit 28.4 (*) 40.0 - 51.0 % MCV 90.4 79.0 - 92.0 fL MCH 27.4 25.6 - 32.2 pg MCHC 30.3 (*) 32.0 - 36.5 gm/dL Platelets 246 145 - 370 x10(3)/mcL RDWSD 61.6 (*) 35.0 - 46.0 fL RDWCV 18.7 (*) 10.9 - 14.4 % MPV 9.9 9.0 - 12.0 fL BASIC METABOLIC PANEL (NON-FASTING) Component Value Range Glucose Lvl 114 60 - 199 mg/dL BUN 28 (*) 10 - 20 mg/dL Creatinine 2.86 (*) 0.80 - 1.50 mg/dL Sodium 138 135 - 145 mmol/L Potassium 3.7 3.5 - 5.0 mmol/L Chloride 107 98 - 107 mmol/L CO2 18 (*) 22 - 31 mmol/L Anion Gap 13 5 - 15 mmol/L Calcium 7.6 (*) 8.5 - 10.5 mg/dL Estimated GFR 23 (*) >=60 DIFFERENTIAL, MANUAL Component Value Range Neutrophil % 69 34 - 71 % Band % 20 (*) 0 - 12 % Lymphocyte % 4 (*) 19 - 53 % Monocyte % 1 (*) 4 - 13 % Metamyelo % 5 (*) 0 - 0 % Myelocyte % 1 (*) 0 - 0 % Neutrophil Abs 7.5 (*) 1.5 - 6.3 x10(3)/mcL Band Abs 2.2 (*) 0.2 - 0.6 x10(3)/mcL Neutr Abs (ANC) 9.73 (*) 1.50 - 6.30 x10(3)/mcL Lymphocyte Abs 0.4 (*) 1.0 - 3.6 x10(3)/mcL Monocyte Abs 0.1 (*) 0.2 - 1.0 x10(3)/mcL Metamyelo Abs 0.6 (*) 0.0 - 0.0 x10(3)/mcL Myelocyte Abs 0.1 (*) 0.0 - 0.0 x10(3)/mcL nRBC % 1 (*) 0 - 0 % Tot Diff Cell Ct 100 Plat Estimate Normal RBC Morphology Abnormal Microcytes 1-5 Hypochromia Slight Polychromasia Present Ovalocytes 1-5 [place] Cells 1-5 Giant Platelets Less than 1 nRBC Abs 0.110 (*) 0.000 - 0.012 x10(3)/mcL POCT GLUCOSE Component Value Range POC Glucose 93 60 - 199 mg/dL BLOOD GAS 2 ARTERIAL Component Value Range pH Art 7.36 pCO2 Art 32 (*) pO2 Art 83 (*) HCO3 Art 17.5 (*) BE Art -7.9 (*) Hgb Blood Gas 9.1 (*) O2HB Art 94.3 COHB Art 2.0 METHB Art 0.4 Na Whole Blood 136 K Whole Blood 4.2 ICa Whole Blood 1.03 (*) CL Whole Blood 109 (*) Gluc Whole Bld 141 Flow Art 2.0 LACTIC ACID, PLASMA Component Value Range Lactate 2.2 0.5 - 2.2 mmol/L CBC (WITH DIFF) Component Value Range WBC 12.2 (*) 4.0 - 10.0 x10(3)/mcL RBC 2.78 (*) 4.63 - 6.08 x10(6)/mcL Hemoglobin 7.6 (*) 13.7 - 17.5 gm/dL Hematocrit 24.4 (*) 40.0 - 51.0 % MCV 87.8 79.0 - 92.0 fL MCH 27.3 25.6 - 32.2 pg MCHC 31.1 (*) 32.0 - 36.5 gm/dL Platelets 240 145 - 370 x10(3)/mcL RDWSD 62.2 (*) 35.0 - 46.0 fL RDWCV 19.3 (*) 10.9 - 14.4 % MPV 9.6 9.0 - 12.0 fL BMP W/FASTING GLUCOSE Component Value Range Glucose Fasting 120 (*) 65 - 99 mg/dL BUN 26 (*) 10 - 20 mg/dL Creatinine 2.15 (*) 0.80 - 1.50 mg/dL Sodium 138 135 - 145 mmol/L Potassium 4.5 3.5 - 5.0 mmol/L Chloride 109 (*) 98 - 107 mmol/L CO2 20 (*) 22 - 31 mmol/L Anion Gap 9 5 - 15 mmol/L Calcium 7.7 (*) 8.5 - 10.5 mg/dL Estimated GFR 31 (*) >=60 MAGNESIUM Component Value Range Magnesium 0.65 (*) 0.69 - 1.07 mmol/L PHOSPHORUS Component Value Range Phosphorus 4.3 2.5 - 4.5 mg/dL PROTHROMBIN TIME Component Value Range PT 29.4 (*) 12.0 - 15.0 sec INR 2.7 (*) 0.9 - 1.1 APTT Component Value Range PTT 51 (*) 25 - 35 sec DIFFERENTIAL, AUTOMATED Component Value Range Neutrophils % 86.9 (*) 34.0 - 71.0 % Neutr Abs (ANC) 10.57 (*) 1.50 - 6.30 x10(3)/mcL Lymphocytes % 4.8 (*) 19.0 - 53.0 % Lymphocytes Abs 0.6 (*) 1.0 - 3.6 x10(3)/mcL Monocytes % 6.4 4.0 - 13.0 % Monocyte Abs 0.8 0.2 - 1.0 x10(3)/mcL Eosinophils % 0.7 0.0 - 7.0 % Eosinophils Abs 0.1 0.0 - 0.5 x10(3)/mcL Basophils % 0.2 0.0 - 2.0 % Basophils Abs 0.0 0.0 - 0.2 x10(3)/mcL Immature Gran % 1.00 (*) 0.00 - 0.66 % Yeni Gran Abs 0.12 (*) 0.00 - 0.05 x10(3)/mcL LACTIC ACID, PLASMA Component Value Range Lactate 1.2 0.5 - 2.2 mmol/L LACTIC ACID, PLASMA Component Value Range Lactate 1.1 0.5 - 2.2 mmol/L Radiology: CXR - clear apart for right IJ Cl Assessment: Dillan Rodgers is a 62 y.o. Male with mechanical St.Marvin aortic valve now with enterococcus fecalisbacteremia with pelvic abcess. He also has gram negative rods in the pelvic fluid and blood cultures which is less likely to cause infective endocarditis. This is a common bacteria causing infective endocarditis and he has predisposing condition for Infective endocarditis(mechanical valve). Currently he does not have any vascular or immunological phenomena suggestive of IE. Clinically he does nothave a murmur and there is no evidence of heart failure Recommendations: 1.Possible infective endocarditis:(one minor criteria:fever: and on major criteria: two blood cultures growing enterococcal fecalis). Based on the above, ALEX is reasonable. If he has evidence of infective endocarditis he needs longer term antibiotics. Pending sensitivity results, he should be treated with a combination of aminoglycoside(gentamycin) and penicillin(ampicillin) for enterococcal endocarditis. Consider ID consult for antibiotic recommendations. If endocarditis is ruled out by ALEX, his antibiotic regimen should be tailored to his pelvic infection. 2.Anticoagulation: INR therapeutic, keep INR between 2.5-3.5. x Consult service will continue to follow patient. Recommendations are above, please page if further consultation required. ETHAN MTZ MD 01/25/2013 Cardiology Staff Addendum: I interviewed and examined Mr. Rodgers and agree with Dr. Mtz's findings, impression and recommendations. The patient has a mechanical aortic valve and recent E. Faecalis bacteremia (presumably due to a mixed bacterial infection of the pelvis) and it is reasonable for him to undergo a ALEX to evaluate for the the possibility that the infection may have seeded his heart valve. The patient reports feeling generally well and is not exhibiting evidence of heart failure or conduction abnormalities suspicious for endocarditis at this time. Time spent interviewing and examining the patient, evaluating his case and in development of the plan: 45 minutes. Keanu Yeung M.D. Staff [employer] Manager [facility] Pager #[phone] * Plan of Care - Jim Mac - 01/25/2013 3:35 AM EDT Problem: Pain, Acute (Adult, Obstetric) Goal: Acute Pain: Acceptable Pain Control/Comfort Level - Pain, Acute (Adult, Obstetric) Pt. Pain assessed and managed. ORE FEEDER pump ordered. Pt. Understands use of pump, but does not require any pain coverage. Pt. Denies pain. Will continue to monitor Problem: Urine Elimination, Impaired (Adult, Obstetric) Goal: Urine Elimination, Impaired: Effective Urinary Elimination Pt. Urine elimination monitored and managed throughout shift. Diallo drains large amounts of clear/lee urine. Some bleeding noted around diallo. Area cleaned, will continue to monitor. * Plan of Care - Charley Ruiz RN - 01/24/2013 3:50 AM EDT Problem: Pain, Acute (Adult, Obstetric) Goal: Acute Pain: Acceptable Pain Control/Comfort Level - Pain, Acute (Adult, Obstetric) Outcome: Present (see interventions, notes) Pt admitted with c/o pain in BLE, especially the left leg. Pain meds given as per MAR orders with minimal effect. Heating pad in use as well. aware. Will continue to monitor. Problem: Urine Elimination, Impaired (Adult, Obstetric) Goal: Urine Elimination, Impaired: Effective Urinary Elimination Outcome: Present (see interventions, notes) Pt have difficulty passing urine, he feels this is due to clots that he has been passing recently. Bladder scans performed (see flowsheet). Will continue to monitor. documented in this encounter Plan of Treatment Pending Results Name Type Priority Associated Diagnoses Date /Time Transfuse thawed plasma Blood Bank STAT 01/24/2013 10:00 AM EDT Transfuse thawed plasma Blood Bank STAT 01/24/2013 12:00 PM EDT XR VAS venous access (PICC placement) Imaging Routine 01/29/2013 2:54 PM EDT Scheduled Orders Name Type Priority Associated Diagnoses Orde r Schedule XR VAS venous access (PICC placement) Imaging Routine Once PRN (for R adiant use) for 1 Occurrences starting 01/29/2013 until 01/29/2013 Scheduled Referrals Name Type Priority Associated Diagnoses Order Schedule OPAT: Order / Recommendation for Post Discharge IV Antibiotic Management Outpatient Referral Routine Abscess Bacteremia Postoperative hemorrhage Ordered: 01/29/2013 documented as of this encounter Procedures Procedure Name Priority Date/Time Associated Diagnosis Comments [employer] CONSULTANT SCAN 01/31/2013 1:06 PM EDT LAB SCAN 01/31/2013 12:54 PM EDT APTT Routine 01/30/2013 6:03 AM EDT PROTHROMBIN TIME Routine 01/30/2013 6:[address] PICC LINE: CONTACT VASCULAR ACCESS Routine 01/29/2013 2:52 PM EDT APTT Routine 01/29/2013 7:02 AM EDT PROTHROMBIN TIME Routine 01/29/2013 7:02 AM EDT BMP W/FASTING GLUCOSE Routine 01/29/2013 2:16 AM EDT DIFFERENTIAL, MANUAL Routine 01/29/2013 2:16 AM EDT CBC (WITH DIFF) Routine 01/29/2013 2:16 AM EDT PROTHROMBIN TIME Routine 01/28/2013 2:29 AM EDT BMP W/FASTING GLUCOSE Routine 01/27/2013 12:27 PM EDT SCAN, PERIPHERAL BLOOD Routine 3 12:27 PM EDT DIFFERENTIAL, AUTOMATED Routine 01/28/20 13 12:27 PM EDT APTT Routine 01/27/2013 12:27 PM EDT PROTHROMBIN TIME Routine 01/27/2013 12:2 7 PM EDT CBC (WITH DIFF) Routine 01/27/2013 12:27 PM EDT BLOOD CULTURE STAT 01/27/2013 2:26 AM EDT BMP W/FASTING GLUCOSE Routine 01/27/2013 2:00 AM EDT DIFFERENTIAL, AUTOMATED Routine 01/28/20 13 2:00 AM EDT BLOOD CULTURE STAT 01/27/2013 2:00 AM EDT APTT Routine 01/27/2013 2:00 AM EDT PROTHROMBIN TIME Routine 01/27/2013 2:00 AM EDT CBC (WITH DIFF) Routine 01/27/2013 2:00 AM EDT TRANSESOPHAGEAL ECHOCARDIOGRAM (ALEX) Routine 01/26/2013 1:17 PM EDT S/P AVR (aortic valve replacement) BMP W/FASTING GLUCOSE Routine 01/26/2013 1:10 PM EDT DIFFERENTIAL, AUTOMATED Routine 01/27/20 13 1:10 PM EDT CBC (WITH DIFF) Routine 01/26/2013 1:10 PM EDT BMP W/FASTING GLUCOSE Routine 01/26/2013 1:50 AM EDT DIFFERENTIAL, AUTOMATED Routine 01/27/20 13 1:50 AM EDT BLOOD CULTURE STAT 01/26/2013 1:50 AM EDT APTT Routine 01/26/2013 1:50 AM EDT PROTHROMBIN TIME Routine 01/26/2013 1:50 AM EDT CBC (WITH DIFF) Routine 01/26/2013 1:50 AM EDT VANCOMYCIN, TROUGH Timed 01/25/2013 10 :30 PM EDT BMP W/FASTING GLUCOSE Routine 01/25/2013 1:00 PM EDT DIFFERENTIAL, AUTOMATED Routine 01/26/20 13 1:00 PM EDT APTT Routine 01/25/2013 1:00 PM EDT PROTHROMBIN TIME Routine 01/25/2013 1:00 PM EDT CBC (WITH DIFF) Routine 01/25/2013 1:00 PM EDT LACTATE, PLASMA Routine 01/25/2013 7:48 AM EDT LACTATE, PLASMA Routine 01/25/2013 3:45 AM EDT BMP W/FASTING GLUCOSE Routine 01/25/2013 1:15 AM EDT DIFFERENTIAL, AUTOMATED Routine 01/26/20 13 1:15 AM EDT APTT Routine 01/25/2013 1:15 AM EDT PROTHROMBIN TIME Routine 01/25/2013 1:15 AM EDT CBC (WITH DIFF) Routine 01/25/2013 1:15 AM EDT PHOSPHORUS Routine 01/25/2013 1:15 AM EDT MAGNESIUM Routine 01/25/2013 1:15 AM EDT LACTATE, PLASMA Routine 01/24/2013 11:45 PM EDT XR CHEST ONE VIEW Routine 01/24/2013 8:2 0 PM EDT BLOOD GAS 2 ARTERIAL Routine 01/24/2013 8:08 PM EDT POCT GLUCOSE Routine 01/24/2013 5:50 PM EDT DIFFERENTIAL, MANUAL STAT 01/24/2013 5:40 PM EDT APTT STAT 01/24/2013 5:40 PM EDT PROTHROMBIN TIME STAT 01/24/2013 5:40 PM EDT CBC (WITH DIFF) STAT 01/24/2013 5:40 PM EDT LACTATE, PLASMA STAT 01/24/2013 5:40 PM EDT BASIC METABOLIC PANEL (NON-FASTING) STAT 01/24/2013 5:[address] PERITONEAL DRAINAGE Routine 3 5:14 PM EDT ANAEROBIC CULTURE Routine 01/24/2013 4:4 5 PM EDT BODY FLUID CULTURE, AEROBIC & ANAEROBIC Routine 01/24/2013 4:45 PM EDT BODY FLUID CULTURE, AEROBIC Routine 01/24/2013 4:45 PM EDT IR ARTERIAL INTERVENTION Routine 01/24/2013 4:15 PM EDT PREPARE THAWED PLASMA Routine 01/24/2013 2:44 PM EDT PREPARE RBC Routine 01/24/2013 2:24 PM EDT PREPARE RBC STAT 01/24/2013 2:20 PM EDT HEMOGRAM Routine 01/24/2013 2:00 PM EDT PREPARE THAWED PLASMA Routine 01/24/2013 11:54 AM EDT BLOOD CULTURE STAT 01/24/2013 10:28 AM EDT DIFFERENTIAL, MANUAL STAT 01/24/2013 10:22 AM EDT NUCLEATED RED BLOOD CELLS STAT 01/24/2013 10:22 AM EDT BLOOD CULTURE STAT 01/24/2013 10:22 AM EDT CBC (WITH DIFF) STAT 01/24/2013 10:22 AM EDT URINALYSIS WITH REFLEX CULTURE Routine 01/24/2013 10:09 AM EDT URINE HOLD STAT 01/24/2013 10:08 AM EDT URINE CULTURE Routine 01/24/2013 10:08 AM EDT TRANSFUSE THAWED PLASMA STAT 01/25/20 13 10:00 AM EDT PREPARE THAWED PLASMA Routine 01/24/2013 9:25 AM EDT PREPARE THAWED PLASMA STAT 01/24/2013 8:35 AM EDT DIFFERENTIAL, AUTOMATED Routine 01/25/20 6:02 AM EDT CBC (WITH DIFF) Routine 01/24/2013 6:02 AM EDT TRANSFUSE RED BLOOD CELLS Routine 01/24/2013 1:52 AM EDT PREPARE RBC Routine 01/24/2013 1:[address] PELVIS SOFT TISSUE (GI SHRUB GROWER)W CONTRAST Routine 01/24/2013 12:55 AM EDT DIFFERENTIAL, MANUAL Routine 01/24/2013 12:08 AM EDT ABO/RH TYPING Routine 01/24/2013 12:08 AM EDT APTT Routine 01/24/2013 12:08 AM EDT PROTHROMBIN TIME Routine 01/24/2013 12:0 8 AM EDT CBC (WITH DIFF) Routine 01/24/2013 12:08 AM EDT ANTIBODY SCREEN Routine 01/24/2013 12:08 AM EDT TYPE AND SCREEN (MC/CGP/CONSTANTINE) Routine 01/24/2013 12:08 AM EDT BASIC METABOLIC PANEL (NON-FASTING) Routine 01/24/2013 12:08 AM EDT documented in this encounter Results * CT [...] shrunken cystic peripherally calcified right renal remnant. Lesly Hope MD IMG CT ORDERABLES * SCAN DOC: [employer] (01/31/2013 1:06 PM EDT) Anatomical Region Laterality Modality Other Narrative 01/31/2013 1:11 PM EDT Procedure Note Provider, Scanning - 01/31/2013 1:06 PM EDT Scanning Provider MEDIA MGR SCAN EXT O RDR/RSLT * SCAN DOC: LAB (01/31/2013 12:54 PM EDT) Narrative 01/31/2013 12:54 PM EDT Procedure Note Provider, Scanning - 01/31/2013 12:54 PM EDT Scanning Provider MEDIA MGR SCAN EXT O RDR/RSLT * (ABNORMAL) APTT (01/30/2013 6:03 AM EDT) PTT 40(H) 25 - 35 sec DANETTE VALENCIA Comment: Recommended therapeutic PTT range for full dose unfractionated heparin is 80-114 seconds. Blood specimen (specimen) 01/30/2013 6:03 AM EDT 01/30/2013 6:14 AM EDT Narrative Resulting Agency Comment Spec In Lab Lesly Hope MD HEMATOLOGY ORDERABLE S [facility] * (ABNORMAL) Prothrombin Time (01/30/2013 6:03 AM EDT) PT 20.8(H) 12.0 - 15.0 sec DANETTE VALENCIA Comment: [facility] Transfusion Committee Guidelines: INR less than 2.0, PTT less than OR equal to 43.5 seconds, or Fibrinogen greater than or equal to 100 mg/dl indicate adequate procoagulant activity for hemostasis in patients without underlying bleeding disorders. INR 1.7(H) 0.9 - 1.1 DANETTE VALENCIA Blood specimen (specimen) 01/30/2013 6:03 AM EDT 01/30/2013 6:14 AM EDT Narrative Resulting Agency Comment Spec In Lab Lesly Hope MD HEMATOLOGY ORDERABLE S DANETTE VALENCIA * Place PICC Line: Contact Vascular Access Page [phone] (01/29/2013 2:52 PM EDT) Narrative Toro Miller RN - 01/29/2013 2:52 PM EDT Toro Miller RN ? 01/29/2013 ??2:52 PM PICC/Midline Insertion Procedure Note Indications: Anti-infective This insertion was not to replace a malfunctioning catheter. This insertion was not due to a suspected line-associated infection. Location of Procedure: X-Ray Room 11 Risks and Benefits: The risks and benefits of this procedure were reviewed and informed consent was obtained obtained. Time Out: Prior to the start of the procedure, the patient's identity, intended procedure, site/side, correct patient positioning and presence of the site immanuel was confirmed as applicable. The medical history and chart were reviewed to rule out potential contraindications to the planned procedure. 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 Catheter type: PICC Lot number: [id number] Procedure Technique: Skin was prepped with chlorhexidine. Skin preparation agent was completely dry at the time of first skin puncture. The following barrier precaution methods were used:large sterile drape, maske/eye shield, large sterile gown, sterile gloves and cap. 3 ml of 1% Lidocaine was used for skin wheal. Ultrasound was used for guidance. ??Radiographic contrast agent was not injected for vein identification. Procedure Details: Order received for catheter placement. A 4 Fr. single lumen Bard Power catheter was placed into the right basilic vein over a 0.018 inch guidewire using modified seldinger technique and fluoroscopy. Arm circumference was 35 cm at 2 cm above the insertion site. Final catheter length (with trimming): 34 cm Internal: 34 cm External: 0 cm Tip in SVC per JUSTICE. The line was not placed over a guidewire. Post Procedure: Diagnosis: SEPSIS. Blood return noted on aspiration of line after placement confirmed. 5 mls of normal saline infused free flowing to gravity via PICC after insertion. Sterile dressing applied: CHG Impregnated Tegaderm. Findings: The patient did tolerate the procedure well. No Complications. Procedure Comments: TORO MILLER RN 01/29/2013 Procedure Note Toro Miller RN - 01/29/2013 2:24 PM EDT PICC/Midline Insertion Procedure Note Indications: Anti-infective This insertion was not to replace a malfunctioning catheter. This insertion was not due to a suspected line-associated infection. Location of Procedure: X-Ray Room 11 Risks and Benefits: The risks and benefits of this procedure were reviewed and informedconsent was obtained obtained. Time Out: Prior to the start of the procedure, the patient's identity, intendedprocedure, site/side, correct patient positioning and presence of the sitemark was confirmed as applicable. The medical history and chart werereviewed to rule out potential contraindications to the planned procedure. 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 Catheter type: PICC Lot number: [id number] Procedure Technique: Skin was prepped with chlorhexidine. Skin preparation agent was completely dry at the time of first skinpuncture. The following barrier precaution methods were used:large sterile drape,maske/eye shield, large sterile gown, sterile gloves and cap. 3 ml of 1% Lidocaine was used for skin wheal. Ultrasound was used forguidance. Radiographic contrast agent was not injected for veinidentification. Procedure Details: Order received for catheter placement. A 4 Fr. single lumen Bard Powercatheter was placed into the right basilic vein over a 0.018 inchguidewire using modified seldinger technique and fluoroscopy. Armcircumference was 35 cm at 2 cm above the insertion site. Final catheter length (with trimming): 34 cm Internal: 34 cm External: 0 cm Tip in SVC per JUSTICE. The line was not placed over a guidewire. Post Procedure: Diagnosis: SEPSIS. Blood return noted on aspiration of line after placement confirmed. 5 mlsof normal saline infused free flowing to gravity via PICC after insertion.Sterile dressing applied: CHG Impregnated Tegaderm. Findings: The patient did tolerate the procedure well. No Complications. Procedure Comments: TORO MILLER RN 01/29/2013 Lesly Hope MD PROCEDURE/MINOR SURG ICAL ORDERABLES * (ABNORMAL) APTT (01/29/2013 7:02 AM EDT) PTT 45(H) 25 - 35 sec CERNER MILLENNIUM Comment: Recommended therapeutic PTT range for full dose unfractionated heparin is 80-114 seconds. Blood specimen (specimen) 01/29/2013 7:02 AM EDT 01/29/2013 7:25 AM EDT Narrative Resulting Agency Comment Spec In Lab Lesly Hope MD HEMATOLOGY ORDERABLE S Performing Organization Address [facility] Co de Phone Number CERDAKSHA GMIENNIUM * (ABNORMAL) Prothrombin Time (01/29/2013 7:02 AM EDT) PT 21.0(H) 12.0 - 15.0 sec CERNER MILLENNIUM Comment: [facility] Transfusion Committee Guidelines: INR less than 2.0, PTT less than OR equal to 43.5 seconds, or Fibrinogen greater than or equal to 100 mg/dl indicate adequate procoagulant activity for hemostasis in patients without underlying bleeding disorders. INR 1.8(H) 0.9 - 1.1 CERNER MILLENNIUM Blood specimen (specimen) 01/29/2013 7:02 AM EDT 01/29/2013 7:25 AM EDT Narrative Resulting Agency Comment Spec In Lab Lesly Hope MD HEMATOLOGY ORDERABLE S Performing Organization Address [facility] Co de Phone Number CERNER MILLENNIUM * (ABNORMAL) Differential, Manual (01/29/2013 2:16 AM EDT) Neutrophil % 75(H) 34 - 71 % CERNER MILLENNIUM Band % 1 0 - 12 % CERNER MILLENNIUM Lymphocyte % 10(L) 19 - 53 % CERNER MILLENNIUM Monocyte % 6 4 - 13 % CERNER MILLENNIUM Eosinophil % 7 0 - 7 % CERNER MILLENNIUM Metamyelo % 1(H) 0 - 0 % CERNER MILLENNIUM Neutrophil Abs 8.5(H) 1.5 - 6.3 x10(3)/mcL CERNER MILLENNIUM Band Abs 0.1(L) 0.2 - 0.6 x10(3)/mcL CERNER MILLENNIUM Neutr Abs (ANC) 8.66(H) 1.50 - 6.30 x10(3)/mcL CERNER MILLENNIUM Lymphocyte Abs 1.1 1.0 - 3.6 x10(3)/mcL CERNER MILLENNIUM Monocyte Abs 0.7 0.2 - 1.0 x10(3)/mcL CERNER MILLENNIUM Eosinophil Abs 0.8(H) 0.0 - 0.5 x10(3)/mcL CERNER MILLENNIUM Metamyelo Abs 0.1(H) 0.0 - 0.0 x10(3)/mcL CERNER MILLENNIUM Tot Diff Cell Ct 100 CERNER MILLENNIUM Plat Estimate Normal CERNER MILLENNIUM RBC Morphology Normal CERNE R MILLENNIUM Blood specimen (specimen) 01/29/2013 2:16 AM EDT 01/29/2013 2:35 AM EDT Narrative Resulting Agency Comment Spec In Lab Lesly Hope MD HEMATOLOGY ORDERABLE S CERNER MILLENNIUM * (ABNORMAL) BMP w/fasting Glucose (01/29/2013 2:16 AM EDT) Glucose Fasting 88 65 - 99 mg/dL CERNER MILLENNIUM Comment: ?Fasting* Glucose Interpretive Criteria Normal ?65-99 mg/dL Impaired Fasting glucose ?100-125 mg/dL Consistent with Diabetes Mellitus ? >or= 126 mg/dL *Fasting is defined as no caloric intake for at least 8 hours In the absence of unequivocal hyperglycemia a plasma glucose value of >or= 126 mg/dL should be repeated on a subsequent day. Diagnosis and Classification of Diabetes Mellitus, Position Statement from the [place] [employer]. ??Diabetes Care, Volume 33, Supplement 1, Oct 2009 BUN 14 10 - 20 mg/dL CERNER MILLENNIUM Creatinine 1.08 0.80 - 1.50 mg/dL CERNER MILLENNIUM Comment: Please note that the pediatric reference intervals supplied above were not validated at [facility]. Results from pediatric patients should be interpreted in conjunction to the patient's age, height and muscle mass. Sodium 142 135 - 145 mmol/L CERNER MILLENNIUM Potassium 3.7 3.5 - 5.0 mmol/L CERNER MILLENNIUM Comment: Please note: ??Patients with WBC >100,000 may have falsely elevated Potassium levels. ??For accurate Potassium quantification in these patients send serum separator tube (gold top) for subsequent determinations. ??Contact the Clinical Chemistry Laboratory if there are any questions. Chloride 108(H) 98 - 107 mmol/L CERNER MILLENNIUM CO2 27 22 - 31 mmol/L CERNER MILLENNIUM Anion Gap 7 5 - 15 mmol/L CERNER MILLENNIUM Calcium 8.2(L) 8.5 - 10.5 mg/dL CERNER MILLENNIUM Estimated GFR >60 >=60 CERNER MILLENNIUM Comment: The National Kidney [...] J Am Soc Nephrol;6:1963-72. Blood specimen (specimen) 01/29/2013 2:16 AM EDT 01/29/2013 2:35 AM EDT Narrative Resulting Agency Comment Spec In Lab Lesly Hope MD CHEMISTRY ORDERABLES [facility] * (ABNORMAL) CBC (with Diff) (01/29/2013 2:16 AM EDT) WBC 11.4(H) 4.0 - 10.0 x10(3)/mcL CERNER MILLENNIUM RBC 3.02(L) 4.63 - 6.08 x10(6)/mcL CERNER MILLENNIUM Hemoglobin 8.1(L) 13.7 - 17.5 gm/dL CERNER MILLENNIUM Hematocrit 26.4(L) 40.0 - 51.0 % CERNER MILLENNIUM MCV 87.4 79.0 - 92.0 fL CERNER MILLENNIUM MCH 26.8 25.6 - 32.2 pg CERNER MILLENNIUM MCHC 30.7(L) 32.0 - 36.5 gm/dL CERNER MILLENNIUM Platelets 341 145 - 370 x10(3)/mcL CERNER MILLENNIUM RDWSD 62.3(H) 35.0 - 46.0 fL CERNER MILLENNIUM RDWCV 19.2(H) 10.9 - 14.4 % CERNER MILLENNIUM MPV 9.7 9.0 - 12.0 fL CERNER MILLENNIUM Blood specimen (specimen) 01/29/2013 2:16 AM EDT 01/29/2013 2:35 AM EDT Narrative Resulting Agency Comment Spec In Lab Lesly Hope MD HEMATOLOGY ORDERABLE S Performing Organization Address [facility] Co de Phone Number DANETTE PRIDEIUM * (ABNORMAL) Prothrombin Time (01/28/2013 2:29 AM EDT) PT 21.0(H) 12.0 - 15.0 sec CERNER MILLENNIUM Comment: [facility] Transfusion Committee Guidelines: INR less than 2.0, PTT less than OR equal to 43.5 seconds, or Fibrinogen greater than or equal to 100 mg/dl indicate adequate procoagulant activity for hemostasis in patients without underlying bleeding disorders. INR 1.8(H) 0.9 - 1.1 CERNER MILLENNIUM Blood specimen (specimen) 01/28/2013 2:29 AM EDT 01/28/2013 2:40 AM EDT Narrative Resulting Agency Comment Spec In Lab Lesly Hope MD HEMATOLOGY ORDERABLE S DANETTE PRIDEIUM * (ABNORMAL) Differential, Automated (01/27/2013 12:27 PM EDT) Neutrophils % 76.6(H) 34.0 - 71.0 % CERNER MILLENNIUM Neutr Abs (ANC) 10.01(H) 1.50 - 6.30 x10(3)/mc L CERNER MILLENNIUM Lymphocytes % 12.1(L) 19.0 - 53.0 % CERNER MILLENNIUM Lymphocytes Abs 1.6 1.0 - 3.6 x10(3)/mc L CERNER MILLENNIUM Monocytes % 4.1 4.0 - 13.0 % CERNER MILLENNIUM Monocyte Abs 0.5 0.2 - 1.0 x10(3)/mc L CERNER MILLENNIUM Eosinophils % 6.2 0.0 - 7.0 % CERNER MILLENNIUM Eosinophils Abs 0.8(H) 0.0 - 0.5 x10(3)/mc L CERNER MILLENNIUM Basophils % 0.7 0.0 - 2.0 % CERNER MILLENNIUM Basophils [...] performed. Yeni Gran Abs 0.04 0.00 - 0.05 x10(3)/mc L CERNER MILLENNIUM Blood specimen (specimen) 01/27/2013 12:27 PM EDT 01/27/2013 12:37 PM EDT Presley Madrid MD HEMATOLOGY ORDERABLE S CERNER MILLENNIUM * Scan, Peripheral Blood (01/27/2013 12:27 PM EDT) Plat Estimate Normal CERNER MILLENNIUM RBC Morphology Normal CERNE R MILLENNIUM Blood specimen (specimen) 01/27/2013 12:27 PM EDT 01/27/2013 12:37 PM EDT Narrative Resulting Agency Comment Spec In Lab Presley Madrid MD HEMATOLOGY ORDERABLE S CERNER MILLENNIUM * (ABNORMAL) APTT (01/27/2013 12:27 PM EDT) PTT 40(H) 25 - 35 sec [facility] Comment: Recommended therapeutic PTT range for full dose unfractionated heparin is 80-114 seconds. Blood specimen (specimen) 01/27/2013 12:27 PM EDT 01/27/2013 12:37 PM EDT Narrative Resulting Agency Comment Spec In Lab Presley Madrid MD HEMATOLOGY ORDERABLE S Performing Organization Address [facility] de Phone Number [facility] * (ABNORMAL) Prothrombin Time (01/27/2013 12:27 PM EDT) PT 20.8(H) 12.0 - 15.0 sec [facility] Comment: [facility] Transfusion Committee Guidelines: INR less than 2.0, PTT less than OR equal to 43.5 seconds, or Fibrinogen greater than or equal to 100 mg/dl indicate adequate procoagulant activity for hemostasis in patients without underlying bleeding disorders. INR 1.7(H) 0.9 - 1.1 [facility] Blood specimen (specimen) 01/27/2013 12:27 PM EDT 01/27/2013 12:37 PM EDT Narrative Resulting Agency Comment Spec In Lab Presley Madrid MD HEMATOLOGY ORDERABLE S Performing Organization Address [facility] Phone Number [facility] * (ABNORMAL) BMP w/fasting Glucose (01/27/2013 12:27 PM EDT) Glucose Fasting 136(H) 65 - 99 mg/dL [facility] Comment: ?Fasting* Glucose Interpretive Criteria Normal ?65-99 mg/dL Impaired Fasting glucose ?100-125 mg/dL Consistent with Diabetes Mellitus ? >or= 126 mg/dL *Fasting is defined as no caloric intake for at least 8 hours In the absence of unequivocal hyperglycemia a plasma glucose value of >or= 126 mg/dL should be repeated on a subsequent day. Diagnosis and Classification of Diabetes Mellitus, Position Statement from the [place] [employer]. ??Diabetes Care, Volume 33, Supplement 1, Oct 2009 BUN 15 10 - 20 mg/dL CERNER MILLENNIUM Creatinine 1.13 0.80 - 1.50 mg/dL CERNER MILLENNIUM Comment: Please note that the pediatric reference intervals supplied above were not validated at [facility]. Results from pediatric patients should be interpreted in conjunction to the patient's age, height and muscle mass. Sodium 140 135 - 145 mmol/L CERNER MILLENNIUM Potassium 3.6 3.5 - 5.0 mmol/L CERNER MILLENNIUM Comment: Please note: ??Patients with WBC >100,000 may have falsely elevated Potassium levels. ??For accurate Potassium quantification in these patients send serum separator tube (gold top) for subsequent determinations. ??Contact the Clinical Chemistry Laboratory if there are any questions. Chloride 108(H) 98 - 107 mmol/L CERNER MILLENNIUM CO2 24 22 - 31 mmol/L CERNER MILLENNIUM Anion Gap 8 5 - 15 mmol/L CERNER MILLENNIUM Calcium 8.5 8.5 - 10.5 mg/dL CERNER MILLENNIUM Estimated GFR >60 >=60 CERNER MILLENNIUM Comment: The National Kidney [...] J Am Soc Nephrol;6:1963-72. Blood specimen (specimen) 01/27/2013 12:27 PM EDT 01/27/2013 12:37 PM EDT Narrative Resulting Agency Comment Spec In Lab Presley Madrid MD CHEMISTRY ORDERABLES [facility]ILLEN[facility] * (ABNORMAL) CBC (with Diff) (01/27/2013 12:27 PM EDT) WBC 13.1(H) 4.0 - 10.0 x10(3)/mcL CERNER MILLENNIUM RBC 2.93(L) 4.63 - 6.08 x10(6)/mcL CERNER MILLENNIUM Hemoglobin 7.9(L) 13.7 - 17.5 gm/dL CERNER MILLENNIUM Hematocrit 25.7(L) 40.0 - 51.0 % CERNER MILLENNIUM MCV 87.7 79.0 - 92.0 fL CERNER MILLENNIUM MCH 27.0 25.6 - 32.2 pg CERNER MILLENNIUM MCHC 30.7(L) 32.0 - 36.5 gm/dL CERNER MILLENNIUM Platelets 249 145 - 370 x10(3)/mcL CERNER MILLENNIUM RDWSD 63.6(H) 35.0 - 46.0 fL CERNER MILLENNIUM RDWCV 19.7(H) 10.9 - 14.4 % CERNER MILLENNIUM MPV 9.2 9.0 - 12.0 fL DANETTE VALENCIA Blood specimen (specimen) 01/27/2013 12:27 PM EDT 01/27/2013 12:37 PM EDT Narrative Resulting Agency Comment Spec In Lab Presley Madrid MD HEMATOLOGY ORDERABLE S DANETTE VALENCIA * Blood culture (01/27/2013 2:26 AM EDT) Blood Culture ? Patient Name: DILLAN RODGERS ?Ordered By: LESLY HOPE ? MR#: [id number] ?LOC: ??2WST ? /Sex: ??1950 (62 years), ? Male ? PROCEDURE: Blood Culture ?SOURCE: Blood ? COLLECTED: 01/27/2013 02:26 ? BODY SITE: Left Hand ? STARTED: 01/27/2013 04:20 ? FINAL REPORT ? Final Report ? Verified:2012 15:10 ? No growth at 5 days. ? PRELIMINARY REPORT ? Preliminary Report ? Verified:2012 07:10 ? No growth at 4 days. ? CERNER MILLENNIUM Blood specimen (specimen) STRUCTURE OF LEFT HAND / Unknown 01/27/2013 2:26 AM EDT 01/27/2013 4:20 AM EDT Narrative Resulting Agency Comment Spec In Lab Lesly Hope MD MICROBIOLOGY - BLOOD ORDERABLES CERDAKSHA HARTMANENNIUM * (ABNORMAL) Differential, Automated (01/27/2013 2:00 AM EDT) Neutrophils % 77.5(H) 34.0 - 71.0 % CERNER MILLENNIUM Neutr Abs (ANC) 9.37(H) 1.50 - 6.30 x10(3)/mc L CERNER MILLENNIUM Lymphocytes % 9.4(L) 19.0 - 53.0 % CERNER MILLENNIUM Lymphocytes Abs 1.1 1.0 - 3.6 x10(3)/mc L CERNER MILLENNIUM Monocytes % 6.2 4.0 - 13.0 % CERNER MILLENNIUM Monocyte Abs 0.8 0.2 - 1.0 x10(3)/mc L CERNER MILLENNIUM Eosinophils % 6.0 0.0 - 7.0 % CERNER MILLENNIUM Eosinophils Abs 0.7(H) 0.0 - 0.5 x10(3)/mc L CERNER MILLENNIUM Basophils % 0.5 0.0 - 2.0 % CERNER MILLENNIUM Basophils Abs 0.1 0.0 - 0.2 x10(3)/mc L CERNER MILLENNIUM Immature Gran % 0.40 0.00 - 0.66 % CERNER MILLENNIUM Comment: Immature granulocytes(IG's)percentage and absolute count will include metamyelocytes, myelocytes, and promyelocytes. Blood smears from CBCs yielding IG's will be scanned manually for concordance. If this scan disagrees with the automated IG or if promyelocytes are noted, a manual differential will be performed. Yeni Gran Abs 0.05 0.00 - 0.05 x10(3)/mc L CERNER MILLENNIUM Blood specimen (specimen) 01/27/2013 2:00 AM EDT 01/27/2013 2:11 AM EDT Presley Madrid MD HEMATOLOGY ORDERABLE S CERNER MILLENNIUM * (ABNORMAL) CBC (with Diff) (01/27/2013 2:00 AM EDT) WBC 12.1(H) 4.0 - 10.0 x10(3)/mcL CERNER MILLENNIUM RBC 2.74(L) 4.63 - 6.08 x10(6)/mcL CERNER MILLENNIUM Hemoglobin 7.4(L) 13.7 - 17.5 gm/dL CERNER MILLENNIUM Hematocrit 24.0(L) 40.0 - 51.0 % CERNER MILLENNIUM MCV 87.6 79.0 - 92.0 fL CERNER MILLENNIUM MCH 27.0 25.6 - 32.2 pg CERNER MILLENNIUM MCHC 30.8(L) 32.0 - 36.5 gm/dL CERNER MILLENNIUM Platelets 257 145 - 370 x10(3)/mcL CERNER MILLENNIUM RDWSD 64.0(H) 35.0 - 46.0 fL CERNER MILLENNIUM RDWCV 19.8(H) 10.9 - 14.4 % CERNER MILLENNIUM MPV 9.5 9.0 - 12.0 fL CERNER MILLENNIUM Blood specimen (specimen) 01/27/2013 2:00 AM EDT 01/27/2013 2:11 AM EDT Narrative Resulting Agency Comment Spec In Lab Presley Madrid MD HEMATOLOGY ORDERABLE S DANETTE PRIDEIUM * (ABNORMAL) BMP w/fasting Glucose (01/27/2013 2:00 AM EDT) Glucose Fasting 126(H) 65 - 99 mg/dL CERNER MILLENNIUM Comment: ?Fasting* Glucose Interpretive Criteria Normal ?65-99 mg/dL Impaired Fasting glucose ?100-125 mg/dL Consistent with Diabetes Mellitus ? >or= 126 mg/dL *Fasting is defined as no caloric intake for at least 8 hours In the absence of unequivocal hyperglycemia a plasma glucose value of >or= 126 mg/dL should be repeated on a subsequent day. Diagnosis and Classification of Diabetes Mellitus, Position Statement from the [place] [employer]. ??Diabetes Care, Volume 33, Supplement 1, Oct 2009 BUN 18 10 - 20 mg/dL CERNER MILLENNIUM Creatinine 1.20 0.80 - 1.50 mg/dL CERNER MILLENNIUM Comment: Please note that the pediatric reference intervals supplied above were not validated at [facility]. Results from pediatric patients should be interpreted in conjunction to the patient's age, height and muscle mass. Sodium 144 135 - 145 mmol/L CERNER MILLENNIUM Potassium 3.6 3.5 - 5.0 mmol/L CERNER MILLENNIUM Comment: Please note: ??Patients with WBC >100,000 may have falsely elevated Potassium levels. ??For accurate Potassium quantification in these patients send serum separator tube (gold top) for subsequent determinations. ??Contact the Clinical Chemistry Laboratory if there are any questions. Chloride 112(H) 98 - 107 mmol/L CERNER MILLENNIUM CO2 23 22 - 31 mmol/L CERNER MILLENNIUM Anion Gap 9 5 - 15 mmol/L CERNER MILLENNIUM Anion Gap 9 5 - 15 mmol/L CERNER MILLENNIUM Calcium 8.1(L) 8.5 - 10.5 mg/dL CERNER MILLENNIUM Estimated GFR >60 >=60 CERNER MILLENNIUM Comment: The National Kidney [...] J Am Soc Nephrol;6:1963-72. Blood specimen (specimen) 01/27/2013 2:00 AM EDT 01/27/2013 2:11 AM EDT Narrative Resulting Agency Comment Spec In Lab Presley Madrid MD CHEMISTRY ORDERABLES DANETTE VALENCIA * (ABNORMAL) Prothrombin Time (01/27/2013 2:00 AM EDT) PT 22.7(H) 12.0 - 15.0 sec DANETTE VALENCIA Comment: [facility] Transfusion Committee Guidelines: INR less than 2.0, PTT less than OR equal to 43.5 seconds, or Fibrinogen greater than or equal to 100 mg/dl indicate adequate procoagulant activity for hemostasis in patients without underlying bleeding disorders. INR 1.9(H) 0.9 - 1.1 DANETTE VALENCIA Blood specimen (specimen) 01/27/2013 2:00 AM EDT 01/27/2013 2:11 AM EDT Narrative Resulting Agency Comment Spec In Lab Presely Madrid MD HEMATOLOGY ORDERABLE S Performing Organization Address City/[facility]/ZIP Co de Phone Number DANETTE VALENCIA * (ABNORMAL) APTT (01/27/2013 2:00 AM EDT) PTT 53(H) 25 - 35 sec CERNER MINNIEENNIUM Comment: Recommended therapeutic PTT range for full dose unfractionated heparin is 80-114 seconds. Blood specimen (specimen) 01/27/2013 2:00 AM EDT 01/27/2013 2:11 AM EDT Narrative Resulting Agency Comment Spec In Lab Presley Madrid MD HEMATOLOGY ORDERABLE S Performing Organization Address [facility] de Phone Number [facility] * Blood culture (01/27/2013 2:00 AM EDT) Blood Culture ? Patient Name: DILLAN RODGERS ?Ordered By: LESLY HOPE ? MR#: [id number] ?LOC: ??2WST ? /Sex: ??1950 (62 years), ? Male ? PROCEDURE: Blood Culture ?SOURCE: Blood ? COLLECTED: 01/27/2013 02:00 ? STARTED: 01/27/2013 03:07 ? FINAL REPORT ? Final Report ? Verified:2012 15:10 ? No growth at 5 days. ? PRELIMINARY REPORT ? Preliminary Report ? Verified:2012 07:10 ? No growth at 4 days. ? DANETTE VALENCIA Blood specimen (specimen) 01/27/2013 2:00 AM EDT 01/27/2013 3:07 AM EDT Narrative Resulting Agency Comment Spec In Lab Lesly Hope MD MICROBIOLOGY - BLOOD ORDERABLES DANETTE VALENCIA * Transesophageal Echocardiogram (ALEX) (01/26/2013 1:17 PM EDT) EF 50 HEARTLAB SYSTEM Anatomical Region Laterality Modality Other 01/26/2013 Narrative 01/26/2013 3:08 PM EDT Procedure: ? Transesophageal Echocardiogram Patient: ? VISHAL GRIMALDO W ? (Age): 1950(62) Med Rec#: ?[id number] ? Sex: ?M ? Site Loc: ?DH ? Ht / Wt: ??(cm)/(kg) ? Pt. Loc: ? ICU ?BSA: ? Study Date: ?01/26/2013 ? Pt. Type: Inpatient Tape: ? Referring: Lesly Hope ([id number]) Referring: ABBY CUMMINS F Reading: Earnest Yates ([id number]) Guest Service Host: Yanira Sexton ([id number]) Interpreting Fellow: Yanira Sexton ([id number]) Diagnosis:CPT Code(s): Indication(s): ??Endocarditis Rhythm: Sinus SUMMARY: 1. There is no echocardiographic evidence of endocarditis. 2. The mechanical aortic valve appears well-seated and appears to be functioning normally. ??Mean systolic gradient by ALEX is 11 mmHg (but alignment with flow is suboptimal). ??No other notable valvular findings. ?? 3. Biventricular systolic function appears mildly reduced. ??LV Ejection fraction is estimated to be 50%. 4. 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 5. See remainder of report for additional findings. ??Recommend transthoracic imaging for better Doppler assessment of the aortic valve prosthesis and evaluation of the anterior aortic root. ?? FINDINGS: Left Ventricle ?Global left ventricular systolic function is mildly reduced. Ejection fraction is estimated to be 50%. Left Atrium ?The left atrium is probably normal in size. ?The left atrial appendage velocity is normal. ?No thrombus is visualized within the left atrium. ?There is no patent foramen ovale visualized. ?There is no evidence of a patent foramen ovale by color Doppler. Right Ventricle ?Right ventricular global systolic function is mildly reduced. Right Atrium ?The right atrium is probably normal in size. Aortic Valve ?The mean trans-valvular gradient across ??the aortic valve is 11 mmHg.by ALEX (recognizing suboptimal alignment with flow) ?A [employer] mechanical aortic valve prosthesis is present. ?The mechanical aortic valve prosthesis appears well seated with normal function.and expected regurgitation pattern ?No vegetation is observed on the aortic valve. Mitral Valve ?The mitral valve appears normal in structure and function. ?There is mild (1+/4+) mitral regurgitation present. ?Systolic anterior motion of the mitral valve chordae is present. ?No vegetation is observed on the mitral valve. Tricuspid Valve ?The tricuspid valve appears normal in structure and function. ?There is trace tricuspid regurgitation present. ?No vegetation is observed on the tricuspid valve. Pulmonic Valve ?The pulmonic valve appears normal in structure and function. ?There is no evidence of pulmonic regurgitation. ?No vegetation is observed on the pulmonic valve. Aorta ?There is mild dilatation of the ascending aorta. ?The ascending aorta dimension is 4.2 cm. ?There is evidence of grade 2 (extensive intimal thickening) atheromatous disease of the ascending aorta. ?There is evidence of grade 3 (atheroma <= 5mm) atheromatous disease of the descending thoracic aorta. Alex Procedures ?The patient was administered 4 mg of Midazolam. ?The procedure and risk were explained to the patient who consented to the study. ?After conscious sedation was administered per hospital protocol, the ALEX probe was passed by Dr. Sexton under direct supervision by Dr. Yates. ??Patient tolerated passage of probe without incident. ?There were no complications during the procedure. Misc ?See remainder of report for additional findings. Chambers ?Value ?Units (Range) ? LV EF Est ? 50 ? % (55 to 80) ? Asc Ao ?4.2 ?cm (2 to 3.5) ? Aortic Valve ?Value ?Units (Range) ? AV grad M ? 11 ? mmHg ? This report has been electronically signed by: Earnest Yates ? 01/26/2013 15:07:26 Images reviewed and interpretation verified [facility] Cardiac Ultrasound Laboratory Procedure Note Earnest Yates MD - 01/26/2013 Procedure: Transesophageal Echocardiogram Patient: VISHAL Ocampo DOB(Age): 1950(62) Med Rec#: [id number] Sex: M Site Loc: [facility] Ht / Wt: (cm)/(kg) Pt. Loc: ICU BSA: Study Date: 01/26/2013 Pt. Type: Inpatient Tape: Referring: Lesly Hope ([id number]) Referring: ABBY CUMMINS F Reading: Earnest Yates ([id number]) Guest Service Host: Yanira Sexton ([id number]) Interpreting Fellow: Yanira Sexton ([id number]) Diagnosis:CPT Code(s): Indication(s): Endocarditis Rhythm: Sinus SUMMARY: 1. There is no echocardiographic evidence of endocarditis. 2. The mechanical aortic valve appears well-seated and appears to be functioning normally. Mean systolic gradient by ALEX is 11 mmHg (but alignment with flow is suboptimal). No other notable valvular findings. 3. Biventricular systolic function appears mildly reduced. LV Ejection fraction is estimated to be 50%. 4. 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 5. See remainder of report for additional findings. Recommend transthoracic imaging for better Doppler assessment of the aortic valve prosthesis and evaluation of the anterior aortic root. FINDINGS: Left Ventricle Global left ventricular systolic function is mildly reduced. Ejection fraction is estimated to be 50%. Left Atrium The left atrium is probably normal in size. The left atrial appendage velocity is normal. No thrombus is visualized within the left atrium. There is no patent foramen ovale visualized. There is no evidence of a patent foramen ovale by color Doppler. Right Ventricle Right ventricular global systolic function is mildly reduced. Right Atrium The right atrium is probably normal in size. Aortic Valve The mean trans-valvular gradient across the aortic valve is 11 mmHg.by ALEX (recognizing suboptimal alignment with flow) A [employer] Judes mechanical aortic valve prosthesis is present. The mechanical aortic valve prosthesis appears well seated with normal function.and expected regurgitation pattern No vegetation is observed on the aortic valve. Mitral Valve The mitral valve appears normal in structure and function. There is mild (1+/4+) mitral regurgitation present. Systolic anterior motion of the mitral valve chordae is present. No vegetation is observed on the mitral valve. Tricuspid Valve The tricuspid valve appears normal in structure and function. There is trace tricuspid regurgitation present. No vegetation is observed on the tricuspid valve. Pulmonic Valve The pulmonic valve appears normal in structure and function. There is no evidence of pulmonic regurgitation. No vegetation is observed on the pulmonic valve. Aorta There is mild dilatation of the ascending aorta. The ascending aorta dimension is 4.2 cm. There is evidence of grade 2 (extensive intimal thickening) atheromatous disease of the ascending aorta. There is evidence of grade 3 (atheroma <= 5mm) atheromatous disease of the descending thoracic aorta. Alex Procedures The patient was administered 4 mg of Midazolam. The procedure and risk were explained to the patient who consented to the study. After conscious sedation was administered per hospital protocol, the ALEX probe was passed by Dr. Sexton under direct supervision by Dr. Yates. Patient tolerated passage of probe without incident. There were no complications during the procedure. Misc See remainder of report for additional findings. Chambers Value Units (Range) LV EF Est 50 % (55 to 80) Asc Ao 4.2 cm (2 to 3.5) Aortic Valve Value Units (Range) AV grad M 11 mmHg This report has been electronically signed by: Earnest Yates 01/26/2013 15:07:26 Images reviewed and interpretation verified [facility] Cardiac Ultrasound Laboratory Lesly Hope MD ECHO ORDERABLES * (ABNORMAL) Differential, Automated (01/26/2013 1:10 PM EDT) Neutrophils % 81.4(H) 34.0 - 71.0 % CERNER MILLENNIUM Neutr Abs (ANC) 9.42(H) 1.50 - 6.30 x10(3)/mc L CERNER MILLENNIUM Lymphocytes % 9.1(L) 19.0 - 53.0 % CERNER MILLENNIUM Lymphocytes Abs 1.1 1.0 - 3.6 x10(3)/mc L CERNER MILLENNIUM Monocytes % 3.7(L) 4.0 - 13.0 % CERNER MILLENNIUM Monocyte Abs 0.4 0.2 - 1.0 x10(3)/mc L CERNER MILLENNIUM Eosinophils % 5.3 0.0 - 7.0 % CERNER MILLENNIUM Eosinophils Abs 0.6(H) 0.0 - 0.5 x10(3)/mc L CERNER MILLENNIUM Basophils % 0.4 0.0 - 2.0 % CERNER MILLENNIUM Basophils [...] differential will be performed. Yeni Gran Abs 0.01 0.00 - 0.05 x10(3)/mc L CERNER MILLENNIUM Blood specimen (specimen) 01/26/2013 1:10 PM EDT 01/26/2013 1:18 PM EDT Lesly Hope MD HEMATOLOGY ORDERABLE S CERNER MINNIEENNIUM * (ABNORMAL) BMP w/fasting Glucose (01/26/2013 1:10 PM EDT) Glucose Fasting 88 65 - 99 mg/dL CERNER MILLENNIUM Comment: ?Fasting* Glucose Interpretive Criteria Normal ?65-99 mg/dL Impaired Fasting glucose ?100-125 mg/dL Consistent with Diabetes Mellitus ? >or= 126 mg/dL *Fasting is defined as no caloric intake for at least 8 hours In the absence of unequivocal hyperglycemia a plasma glucose value of >or= 126 mg/dL should be repeated on a subsequent day. Diagnosis and Classification of Diabetes Mellitus, Position Statement from the [place] [employer]. ??Diabetes Care, Volume 33, Supplement 1, Oct 2009 BUN 18 10 - 20 mg/dL CERNER MILLENNIUM Creatinine 1.14 0.80 - 1.50 mg/dL CERNER MILLENNIUM Comment: Please note that the pediatric reference intervals supplied above were not validated at [facility]. Results from pediatric patients should be interpreted in conjunction to the patient's age, height and muscle mass. Sodium 144 135 - 145 mmol/L CERNER MILLENNIUM Potassium 3.4(L) 3.5 - 5.0 mmol/L CERNER MILLENNIUM Comment: Please note: ??Patients with WBC >100,000 may have falsely elevated Potassium levels. ??For accurate Potassium quantification in these patients send serum separator tube (gold top) for subsequent determinations. ??Contact the Clinical Chemistry Laboratory if there are any questions. Chloride 115(H) 98 - 107 mmol/L CERNER MILLENNIUM CO2 20(L) 22 - 31 mmol/L CERNER MILLENNIUM Anion Gap 9 5 - 15 mmol/L CERNER MILLENNIUM Calcium 7.6(L) 8.5 - 10.5 mg/dL CERNER MILLENNIUM Estimated GFR >60 >=60 CERNER MILLENNIUM Comment: The National Kidney [...] J Am Soc Nephrol;6:1963-72. Blood specimen (specimen) 01/26/2013 1:10 PM EDT 01/26/2013 1:18 PM EDT Narrative Resulting Agency Comment Spec In Lab Lesly Hope MD CHEMISTRY ORDERABLES [facility] * (ABNORMAL) CBC (with Diff) (01/26/2013 1:10 PM EDT) WBC 11.6(H) 4.0 - 10.0 x10(3)/mcL CERNER MILLENNIUM RBC 2.66(L) 4.63 - 6.08 x10(6)/mcL CERNER MILLENNIUM Hemoglobin 7.3(L) 13.7 - 17.5 gm/dL CERNER MILLENNIUM Hematocrit 23.3(L) 40.0 - 51.0 % CERNER MILLENNIUM MCV 87.6 79.0 - 92.0 fL CERNER MILLENNIUM MCH 27.4 25.6 - 32.2 pg CERNER MILLENNIUM MCHC 31.3(L) 32.0 - 36.5 gm/dL CERNER MILLENNIUM Platelets 238 145 - 370 x10(3)/mcL CERNER MILLENNIUM RDWSD 64.3(H) 35.0 - 46.0 fL CERNER MILLENNIUM RDWCV 20.0(H) 10.9 - 14.4 % CERNER MILLENNIUM MPV 9.7 9.0 - 12.0 fL CERNER MILLENNIUM Blood specimen (specimen) 01/26/2013 1:10 PM EDT 01/26/2013 1:18 PM EDT Narrative Resulting Agency Comment Spec In Lab Lesly Hope MD HEMATOLOGY ORDERABLE S CERNER MILLENNIUM * (ABNORMAL) Differential, Automated (01/26/2013 1:50 AM EDT) Neutrophils % 80.4(H) 34.0 - 71.0 % CERNER MILLENNIUM Neutr Abs (ANC) 7.56(H) 1.50 - 6.30 x10(3)/mc L CERNER MILLENNIUM Lymphocytes % 8.8(L) 19.0 - 53.0 % CERNER MILLENNIUM Lymphocytes Abs 0.8(L) 1.0 - 3.6 x10(3)/mc L CERNER MILLENNIUM Monocytes % 5.5 4.0 - 13.0 % CERNER MILLENNIUM Monocyte Abs 0.5 0.2 - 1.0 x10(3)/mc L CERNER MILLENNIUM Eosinophils % 4.7 0.0 - 7.0 % CERNER MILLENNIUM Eosinophils Abs 0.4 0.0 - 0.5 x10(3)/mc L CERNER MILLENNIUM Basophils % 0.4 0.0 - 2.0 % CERNER MILLENNIUM Basophils [...] Abs 0.02 0.00 - 0.05 x10(3)/mc L [facility] Blood specimen (specimen) 01/26/2013 1:50 AM EDT 01/26/2013 2:08 AM EDT Presley Madrid MD HEMATOLOGY ORDERABLE S [facility] * Blood culture (01/26/2013 1:50 AM EDT) Blood Culture ? Patient Name: DILLAN RODGERS ?Ordered By: LESLY HOPE ? MR#: [id number] ?LOC: ??2WST ? /Sex: ??1950 (62 years), ? Male ? PROCEDURE: Blood Culture ?SOURCE: Blood ? COLLECTED: 01/26/2013 01:50 ? STARTED: 01/26/2013 02:34 ? FINAL REPORT ? Final Report ? Verified:2012 15:10 ? No growth at 5 days. ? PRELIMINARY REPORT ? Preliminary Report ? Verified:2012 07:10 ? No growth at 4 days. ? CERNER MILLENNIUM Blood specimen (specimen) 01/26/2013 1:50 AM EDT 01/26/2013 2:34 AM EDT Narrative Resulting Agency Comment Spec In Lab Lesly Hope MD MICROBIOLOGY - BLOOD ORDERABLES Performing Organization Address [facility] de Phone Number DANETTE PRIDEIUM * (ABNORMAL) APTT (01/26/2013 1:50 AM EDT) PTT 60(H) 25 - 35 sec CERNER MILLENNIUM Comment: Recommended therapeutic PTT range for full dose unfractionated heparin is 80-114 seconds. Blood specimen (specimen) 01/26/2013 1:50 AM EDT 01/26/2013 2:08 AM EDT Narrative Resulting Agency Comment Spec In Lab Presley Madrid MD HEMATOLOGY ORDERABLE S Performing Organization Address [facility] Phone Number DANETTE HARTMANENNIUM * (ABNORMAL) Prothrombin Time (01/26/2013 1:50 AM EDT) PT 25.6(H) 12.0 - 15.0 sec CERDAKSHA MILLENNIUM Comment: [facility] Transfusion Committee Guidelines: INR less than 2.0, PTT less than OR equal to 43.5 seconds, or Fibrinogen greater than or equal to 100 mg/dl indicate adequate procoagulant activity for hemostasis in patients without underlying bleeding disorders. INR 2.2(H) 0.9 - 1.1 CERNER MILLENNIUM Blood specimen (specimen) 01/26/2013 1:50 AM EDT 01/26/2013 2:08 AM EDT Narrative Resulting Agency Comment Spec In Lab Presley Madrid MD HEMATOLOGY ORDERABLE S Performing Organization Address [facility] de Phone Number DANETTE HARTMANENNIUM * (ABNORMAL) BMP w/fasting Glucose (01/26/2013 1:50 AM EDT) [facility] Glucose Fasting 94 65 - 99 mg/dL CERNER MILLENNIUM Comment: ?Fasting* Glucose Interpretive Criteria Normal ?65-99 mg/dL Impaired Fasting glucose ?100-125 mg/dL Consistent with Diabetes Mellitus ? >or= 126 mg/dL *Fasting is defined as no caloric intake for at least 8 hours In the absence of unequivocal hyperglycemia a plasma glucose value of >or= 126 mg/dL should be repeated on a subsequent day. Diagnosis and Classification of Diabetes Mellitus, Position Statement from the [place] [employer]. ??Diabetes Care, Volume 33, Supplement 1, Oct 2009 BUN 19 10 - 20 mg/dL CERNER MILLENNIUM Creatinine 1.38 0.80 - 1.50 mg/dL CERNER MILLENNIUM Comment: Please note that the pediatric reference intervals supplied above were not validated at [facility]. Results from pediatric patients should be interpreted in conjunction to the patient's age, height and muscle mass. Sodium 140 135 - 145 mmol/L CERNER MILLENNIUM Potassium 3.5 3.5 - 5.0 mmol/L CERNER MILLENNIUM Comment: Please note: ??Patients with WBC >100,000 may have falsely elevated Potassium levels. ??For accurate Potassium quantification in these patients send serum separator tube (gold top) for subsequent determinations. ??Contact the Clinical Chemistry Laboratory if there are any questions. Chloride 111(H) 98 - 107 mmol/L CERNER MILLENNIUM CO2 23 22 - 31 mmol/L CERNER MILLENNIUM Anion Gap 6 5 - 15 mmol/L CERNER MILLENNIUM Calcium 7.8(L) 8.5 - 10.5 mg/dL CERNER MILLENNIUM Estimated GFR 52(L) >=60 CERNER MILLENNIUM Comment: The National Kidney [...] J Am Soc Nephrol;6:1963-72. Blood specimen (specimen) 01/26/2013 1:50 AM EDT 01/26/2013 2:08 AM EDT Narrative Resulting Agency Comment Spec In Lab Presley Madrid MD CHEMISTRY ORDERABLES [facility] * (ABNORMAL) CBC (with Diff) (01/26/2013 1:50 AM EDT) WBC 9.4 4.0 - 10.0 x10(3)/mcL DANETTE VALENCIA RBC 2.56(L) 4.63 - 6.08 x10(6)/mcL CERNER MILLENNIUM Hemoglobin 7.0(L) 13.7 - 17.5 gm/dL CERNER MILLENNIUM Hematocrit 22.2(L) 40.0 - 51.0 % CERNER MILLENNIUM MCV 86.7 79.0 - 92.0 fL CERNER MILLENNIUM MCH 27.3 25.6 - 32.2 pg CERNER MILLENNIUM MCHC 31.5(L) 32.0 - 36.5 gm/dL CERNER MILLENNIUM Platelets 220 145 - 370 x10(3)/mcL CERNER MILLENNIUM RDWSD 63.1(H) 35.0 - 46.0 fL CERNER MILLENNIUM RDWCV 19.8(H) 10.9 - 14.4 % CERNER MILLENNIUM MPV 9.7 9.0 - 12.0 fL CERNER MILLENNIUM Blood specimen (specimen) 01/26/2013 1:50 AM EDT 01/26/2013 2:08 AM EDT Narrative Resulting Agency Comment Spec In Lab Presley Madrid MD HEMATOLOGY ORDERABLE S DANETTE PRIDEIUM * Vancomycin, trough (01/25/2013 10:30 PM EDT) Vanc Trough 10.1 mg/L CERNER MILLENNIUM Comment: Therapeutic range for complicated infections such as bacteremia, endocarditis, osteomyelitis, meningitis, and hospital-acquired pneumonia caused by S. aureus: 15-20 mg/L Therapeutic range for other indications: 10-15 mg/L Toxic: >25mg/L Reference: Vancomycin Therapeutic Monitoring: Review and Recommendations from the ASHP, IDSA and SIDP Task Force. ??Am J Health-Syst Pharm. 2009; 66:82-98 Blood specimen (specimen) 01/25/2013 10:30 PM EDT 01/25/2013 10:36 PM EDT Narrative Resulting Agency Comment Spec In Lab Presley Madrid MD CHEMISTRY ORDERABLES Performing Organization Address City/[facility]/ZIP Co de Phone Number DANETTE HARTMANENNIUM * (ABNORMAL) Differential, Automated (01/25/2013 1:00 PM EDT) Neutrophils % 85.2(H) 34.0 - 71.0 % CERNER MILLENNIUM Neutr Abs (ANC) 9.02(H) 1.50 - 6.30 x10(3)/mc L CERNER MILLENNIUM Lymphocytes % 4.8(L) 19.0 - 53.0 % CERNER MILLENNIUM Lymphocytes Abs 0.5(L) 1.0 - 3.6 x10(3)/mc L CERNER MILLENNIUM Monocytes % 5.1 4.0 - 13.0 % CERNER MILLENNIUM Monocyte Abs 0.5 0.2 - 1.0 x10(3)/mc L CERNER MILLENNIUM Eosinophils % 2.7 0.0 - 7.0 % CERNER MILLENNIUM Eosinophils Abs 0.3 0.0 - 0.5 x10(3)/mc L CERNER MILLENNIUM Basophils % 0.5 0.0 - 2.0 % CERNER MILLENNIUM Basophils Abs 0.0 0.0 - 0.2 x10(3)/mc L CERNER MILLENNIUM Immature Gran % 1.70(H) 0.00 - 0.66 % CERNER MILLENNIUM Comment: Immature granulocytes(IG's)percentage and absolute count will include metamyelocytes, myelocytes, and promyelocytes. Blood smears from CBCs yielding IG's will be scanned manually for concordance. If this scan disagrees with the automated IG or if promyelocytes are noted, a manual differential will be performed. Yeni Gran Abs 0.18(H) 0.00 - 0.05 x10(3)/mc L CERNER MILLENNIUM Blood specimen (specimen) 01/25/2013 1:00 PM EDT 01/25/2013 1:47 PM EDT Lesly Hope MD HEMATOLOGY ORDERABLE S CERDAKSHA HARTMANENNIUM * (ABNORMAL) BMP w/fasting Glucose (01/25/2013 1:00 PM EDT) Glucose Fasting 86 65 - 99 mg/dL CERNER MILLENNIUM Comment: ?Fasting* Glucose Interpretive Criteria Normal ?65-99 mg/dL Impaired Fasting glucose ?100-125 mg/dL Consistent with Diabetes Mellitus ? >or= 126 mg/dL *Fasting is defined as no caloric intake for at least 8 hours In the absence of unequivocal hyperglycemia a plasma glucose value of >or= 126 mg/dL should be repeated on a subsequent day. Diagnosis and Classification of Diabetes Mellitus, Position Statement from the [place] [employer]. ??Diabetes Care, Volume 33, Supplement 1, Oct 2009 BUN 22(H) 10 - 20 mg/dL CERNER MILLENNIUM Creatinine 1.58(H) 0.80 - 1.50 mg/dL CERNER MILLENNIUM Comment: Please note that the pediatric reference intervals supplied above were not validated at [facility]. Results from pediatric patients should be interpreted in conjunction to the patient's age, height and muscle mass. Sodium 142 135 - 145 mmol/L CERNER MILLENNIUM Potassium 3.8 3.5 - 5.0 mmol/L CERNER MILLENNIUM Comment: Please note: ??Patients with WBC >100,000 may have falsely elevated Potassium levels. ??For accurate Potassium quantification in these patients send serum separator tube (gold top) for subsequent determinations. ??Contact the Clinical Chemistry Laboratory if there are any questions. Chloride 111(H) 98 - 107 mmol/L CERNER MILLENNIUM CO2 19(L) 22 - 31 mmol/L CERNER MILLENNIUM Anion Gap 12 5 - 15 mmol/L CERNER MILLENNIUM Calcium 7.8(L) 8.5 - 10.5 mg/dL CERNER MILLENNIUM Estimated GFR 45(L) >=60 CERNER MILLENNIUM Comment: The National Kidney [...] J Am Soc Nephrol;6:1963-72. Blood specimen (specimen) 01/25/2013 1:00 PM EDT 01/25/2013 1:47 PM EDT Narrative Resulting Agency Comment Spec In Lab Lesly Hope MD CHEMISTRY ORDERABLES [facility] * (ABNORMAL) APTT (01/25/2013 1:00 PM EDT) PTT 58(H) 25 - 35 sec DANETTE VALENCIA Comment: Recommended therapeutic PTT range for full dose unfractionated heparin is 80-114 seconds. Blood specimen (specimen) 01/25/2013 1:00 PM EDT 01/25/2013 1:47 PM EDT Narrative Resulting Agency Comment Spec In Lab Lesly Hope MD HEMATOLOGY ORDERABLE S Performing Organization Address [facility] de Phone Number DANETTE PRIDEIUM * (ABNORMAL) Prothrombin Time (01/25/2013 1:00 PM EDT) PT 28.7(H) 12.0 - 15.0 sec CERNER MILLENNIUM Comment: [facility] Transfusion Committee Guidelines: INR less than 2.0, PTT less than OR equal to 43.5 seconds, or Fibrinogen greater than or equal to 100 mg/dl indicate adequate procoagulant activity for hemostasis in patients without underlying bleeding disorders. INR 2.6(H) 0.9 - 1.1 CERNER MILLENNIUM Blood specimen (specimen) 01/25/2013 1:00 PM EDT 01/25/2013 1:47 PM EDT Narrative Resulting Agency Comment Spec In Lab Lesly Hope MD HEMATOLOGY ORDERABLE S Performing Organization Address [facility] de Phone Number DANETTE PRIDEIUM * (ABNORMAL) CBC (with Diff) (01/25/2013 1:00 PM EDT) WBC 10.6(H) 4.0 - 10.0 x10(3)/mcL CERNER MILLENNIUM RBC 2.82(L) 4.63 - 6.08 x10(6)/mcL CERNER MILLENNIUM Hemoglobin 7.6(L) 13.7 - 17.5 gm/dL CERNER MILLENNIUM Hematocrit 24.6(L) 40.0 - 51.0 % CERNER MILLENNIUM MCV 87.2 79.0 - 92.0 fL CERNER MILLENNIUM MCH 27.0 25.6 - 32.2 pg CERNER MILLENNIUM MCHC 30.9(L) 32.0 - 36.5 gm/dL CERNER MILLENNIUM Platelets 262 145 - 370 x10(3)/mcL CERNER MILLENNIUM RDWSD 63.0(H) 35.0 - 46.0 fL CERNER MILLENNIUM RDWCV 19.7(H) 10.9 - 14.4 % CERNER MILLENNIUM MPV 9.9 9.0 - 12.0 fL DANETTE HARTMANENNIUM Blood specimen (specimen) 01/25/2013 1:00 PM EDT 01/25/2013 1:47 PM EDT Narrative Resulting Agency Comment Spec In Lab Lesly Hope MD HEMATOLOGY ORDERABLE S Performing Organization Address [facility] - [place]/[facility] de Phone Number DANETTE PRIDEIUM * Lactic acid, plasma (01/25/2013 7:48 AM EDT) Lactate 1.1 0.5 - 2.2 mmol/L DANETTE HARTMANENNIUM Blood specimen (specimen) 01/25/2013 7:48 AM EDT 01/25/2013 7:58 AM EDT Narrative Resulting Agency Comment Spec In Lab Lesly Hope MD CHEMISTRY ORDERABLES Performing Organization Address [facility] [place]/[facility] Phone Number DANETTE HARTMANENNIUM * Lactic acid, plasma (01/25/2013 3:45 AM EDT) Lactate 1.2 0.5 - 2.2 mmol/L DANETTE HARTMANENNIUM Blood specimen (specimen) 01/25/2013 3:45 AM EDT 01/25/2013 3:53 AM EDT Narrative Resulting Agency Comment Spec In Lab Lesly Hope MD CHEMISTRY ORDERABLES Performing Organization Address [facility] [place]/[facility] de Phone Number DANETTE HARTMANENNIUM * (ABNORMAL) Differential, Automated (01/25/2013 1:15 AM EDT) Neutrophils % 86.9(H) 34.0 - 71.0 % CERNER MILLENNIUM Neutr Abs (ANC) 10.57(H) 1.50 - 6.30 x10(3)/mc L CERNER MILLENNIUM Lymphocytes % 4.8(L) 19.0 - 53.0 % CERNER MILLENNIUM Lymphocytes Abs 0.6(L) 1.0 - 3.6 x10(3)/mc L CERNER MILLENNIUM Monocytes % 6.4 4.0 - 13.0 % CERNER MILLENNIUM Monocyte Abs 0.8 0.2 - 1.0 x10(3)/mc L CERNER MILLENNIUM Eosinophils % 0.7 0.0 - 7.0 % CERNER MILLENNIUM Eosinophils Abs 0.1 0.0 - 0.5 x10(3)/mc L CERNER MILLENNIUM Basophils % 0.2 0.0 - 2.0 % CERNER MILLENNIUM Basophils Abs 0.0 0.0 - 0.2 x10(3)/mc L CERNER MILLENNIUM Immature Gran % 1.00(H) 0.00 - 0.66 % CERNER MILLENNIUM Comment: Immature granulocytes(IG's)percentage and absolute count will include metamyelocytes, myelocytes, and promyelocytes. Blood smears from CBCs yielding IG's will be scanned manually for concordance. If this scan disagrees with the automated IG or if promyelocytes are noted, a manual differential will be performed. Yeni Gran Abs 0.12(H) 0.00 - 0.05 x10(3)/mc L CERNER MILLENNIUM Blood specimen (specimen) 01/25/2013 1:15 AM EDT 01/25/2013 1:24 AM EDT Presley Madrid MD HEMATOLOGY ORDERABLE S Performing Organization Address [facility] [place]/[facility] Co de Phone Number YAKOVBANNER SHANNENIUM * (ABNORMAL) APTT (01/25/2013 1:15 AM EDT) PTT 51(H) 25 - 35 sec CERNER MILLENNIUM Comment: Recommended therapeutic PTT range for full dose unfractionated heparin is 80-114 seconds. Blood specimen (specimen) 01/25/2013 1:15 AM EDT 01/25/2013 1:24 AM EDT Narrative Resulting Agency Comment Spec In Lab Presley Madrid MD HEMATOLOGY ORDERABLE S Performing Organization Address [place]/[facility] Co de Phone Number DANETTE HARTMANENNIUM * (ABNORMAL) Prothrombin Time (01/25/2013 1:15 AM EDT) PT 29.4(H) 12.0 - 15.0 sec CERNER MILLENNIUM Comment: [facility] Transfusion Committee Guidelines: INR less than 2.0, PTT less than OR equal to 43.5 seconds, or Fibrinogen greater than or equal to 100 mg/dl indicate adequate procoagulant activity for hemostasis in patients without underlying bleeding disorders. INR 2.7(H) 0.9 - 1.1 CERNER MILLENNIUM Blood specimen (specimen) 01/25/2013 1:15 AM EDT 01/25/2013 1:24 AM EDT Narrative Resulting Agency Comment Spec In Lab Presley Madrid MD HEMATOLOGY ORDERABLE S CERNER MILLENNIUM * (ABNORMAL) BMP w/fasting Glucose (01/25/2013 1:15 AM EDT) Glucose Fasting 120(H) 65 - 99 mg/dL CERNER MILLENNIUM Comment: ?Fasting* Glucose Interpretive Criteria Normal ?65-99 mg/dL Impaired Fasting glucose ?100-125 mg/dL Consistent with Diabetes Mellitus ? >or= 126 mg/dL *Fasting is defined as no caloric intake for at least 8 hours In the absence of unequivocal hyperglycemia a plasma glucose value of >or= 126 mg/dL should be repeated on a subsequent day. Diagnosis and Classification of Diabetes Mellitus, Position Statement from the [place] [employer]. ??Diabetes Care, Volume 33, Supplement 1, Oct 2009 BUN 26(H) 10 - 20 mg/dL CERNER MILLENNIUM Creatinine 2.15(H) 0.80 - 1.50 mg/dL CERNER MILLENNIUM Comment: Please note that the pediatric reference intervals supplied above were not validated at [facility]. Results from pediatric patients should be interpreted in conjunction to the patient's age, height and muscle mass. Sodium 138 135 - 145 mmol/L CERNER MILLENNIUM Potassium 4.5 3.5 - 5.0 mmol/L CERNER MILLENNIUM Comment: Please note: ??Patients with WBC >100,000 may have falsely elevated Potassium levels. ??For accurate Potassium quantification in these patients send serum separator tube (gold top) for subsequent determinations. ??Contact the Clinical Chemistry Laboratory if there are any questions. Chloride 109(H) 98 - 107 mmol/L CERNER MILLENNIUM CO2 20(L) 22 - 31 mmol/L CERNER MILLENNIUM Anion Gap 9 5 - 15 mmol/L CERNER MILLENNIUM Calcium 7.7(L) 8.5 - 10.5 mg/dL CERNER MILLENNIUM Estimated GFR 31(L) >=60 CERNER MILLENNIUM Comment: The National Kidney [...] J Am Soc Nephrol;6:1963-72. Blood specimen (specimen) 01/25/2013 1:15 AM EDT 01/25/2013 1:24 AM EDT Narrative Resulting Agency Comment Spec In Lab Presley Madrid MD CHEMISTRY ORDERABLES CERNER MILLENNIUM * (ABNORMAL) CBC (with Diff) (01/25/2013 1:15 AM EDT) WBC 12.2(H) 4.0 - 10.0 x10(3)/mcL CERNER MILLENNIUM RBC 2.78(L) 4.63 - 6.08 x10(6)/mcL CERNER MILLENNIUM Hemoglobin 7.6(L) 13.7 - 17.5 gm/dL CERNER MILLENNIUM Hematocrit 24.4(L) 40.0 - 51.0 % CERNER MILLENNIUM MCV 87.8 79.0 - 92.0 fL CERNER MILLENNIUM MCH 27.3 25.6 - 32.2 pg CERNER MILLENNIUM MCHC 31.1(L) 32.0 - 36.5 gm/dL CERNER MILLENNIUM Platelets 240 145 - 370 x10(3)/mcL CERNER MILLENNIUM RDWSD 62.2(H) 35.0 - 46.0 fL CERNER MILLENNIUM RDWCV 19.3(H) 10.9 - 14.4 % CERNER MILLENNIUM MPV 9.6 9.0 - 12.0 fL CERNER MILLENNIUM Blood specimen (specimen) 01/25/2013 1:15 AM EDT 01/25/2013 1:24 AM EDT Narrative Resulting Agency Comment Spec In Lab Presley Madrid MD HEMATOLOGY ORDERABLE S DANETTE HARTMANENNIUM * Phosphorus (01/25/2013 1:15 AM EDT) Phosphorus 4.3 2.5 - 4.5 mg/dL CERNER MILLENNIUM Blood specimen (specimen) 01/25/2013 1:15 AM EDT 01/25/2013 1:24 AM EDT Narrative Resulting Agency Comment Spec In Lab Presley Madrid MD CHEMISTRY ORDERABLES Performing Organization Address [facility] [place]/[facility] de Phone Number DANETTE VALENCIA * (ABNORMAL) Magnesium (01/25/2013 1:15 AM EDT) Magnesium 0.65(L) 0.69 - 1.07 mmol/L DANETTE HARTMANENNIUM Blood specimen (specimen) 01/25/2013 1:15 AM EDT 01/25/2013 1:24 AM EDT Narrative Resulting Agency Comment Spec In Lab Presley Madrid MD CHEMISTRY ORDERABLES Performing Organization Address [facility] Phone Number DANETTE PRIDEIUM * Lactic acid, plasma (01/24/2013 11:45 PM EDT) Lactate 2.2 0.5 - 2.2 mmol/L DANETTE HARTMANENNIUM Blood specimen (specimen) 01/24/2013 11:45 PM EDT 01/24/2013 11:53 PM EDT Narrative Resulting Agency Comment Spec In Lab Lesly Hope MD CHEMISTRY ORDERABLES Performing Organization Address [facility] de Phone Number DANETTE PRIDEIUM * XR chest PA or AP- 1 view (01/24/2013 8:20 PM EDT) Anatomical Region Laterality Modality Chest N/A Radiographic Mary ging 01/24/2013 8:20 PM EDT Narrative 01/24/2013 9:43 PM EDT Examination CHEST AP/XPORT Clinical History IJ placement Comparison 11/02/2012. Technique Portable AP film of the chest acquired at 15 degrees upright. Findings A right internal jugular central venous catheter extends to the level of the superior vena cava. ??Sternotomy wires are present at midline. ??No pulmonary consolidation is identified. ??No large pleural effusion or pneumothorax is seen. Procedure Note Evan Jackson MD - 01/24/2013 Examination CHEST AP/XPORT Clinical History IJ placement Comparison 11/02/2012. Technique Portable AP film of the chest acquired at 15 degrees upright. Findings A right internal jugular central venous catheter extends to the level ofthe superior vena cava. Sternotomy wires are present at midline. Nopulmonary consolidation is identified. No large pleural effusion or pneumothorax is seen. Lesly Hope MD IMG DX ORDERABLES * (ABNORMAL) BLOOD GAS 2 ARTERIAL (01/24/2013 8:08 PM EDT) pH Art 7.36 CERNER MILLENNIUM pCO2 Art 32(L) mmHg CERNER MILLENNIUM pO2 Art 83(L) mmHg CERNER MILLENNIUM HCO3 Art 17.5(L) mmol/L CERNER MILLENNIUM BE Art -7.9(L) mmol/L CERNER MILLENNIUM Hgb Blood Gas 9.1(L) gm/dL CERNER MILLENNIUM Comment: Total Hemoglobin (in gm/dL) ?Based on [facility] Hematology ranges: ?Age ?Reference Range Less than 3 days ?14.5 to 22.5 3 days to 2 weeks ? 12.5 to 20.5 2 weeks to 1 month ?10.0 to 18.0 1 to 6 months ?9.4 to 14.0 6 months to 2 years ? 10.5 to 13.5 2 to 6 years ?11.5 to 13.5 6 to 12 years ? 11.5 to 15.5 12 to 18 years (female) 12.0 to 16.0 ? (male) ?? 13.0 to 16.0 > 18 years ? (female) 11.2 to 15.7 ? (male) ?? 13.7 to 17.5 O2HB Art 94.3 % CERNER MILLENNIUM COHB Art 2.0 % CERNER MILLENNIUM Comment: Nonsmokers: 0.5-1.5% COHB Smokers: Variable, but usually less than 10% Toxic: 20-30% COHB Lethal: Greater than 60% COHB METHB Art 0.4 % CERNER MILLENNIUM Na Whole Blood 136 mmol/L CERNE R MILLENNIUM K Whole Blood 4.2 mmol/L CERNER MILLENNIUM Comment: Please note: Patients with WBC >100,000 may have falsely elevated Potassium levels. Contact the Clinical Chemistry Laboratory if there are any questions. ICa Whole Blood 1.03(L) mmol/L CERN ER MILLENNIUM Comment: Reference Ranges: ?? < 19 yrs: 1.22 - 1.37 mmol/L ? Adults: 1.15 - 1.33 mmol/L Note: ??Total bilirubin higher than 20 mg/dL may lead to falsely low ionized calcium. CL Whole Blood 109(H) mmol/L CERNE R MILLENNIUM Gluc Whole Bld 141 mg/dL CERNE R MILLENNIUM Comment:Diabetes: >=200 mg/d L plus symptoms. Flow Art 2.0 LPM CERNER MILLENNIUM Blood specimen (specimen) 01/24/2013 8:08 PM EDT 01/24/2013 8:08 PM EDT Presley Madrid MD CHEMISTRY ORDERABLES Performing Organization Address [facility] [place]/[facility] Co de Phone Number CERBANNER MILLENNIUM * POCT Glucose (01/24/2013 5:50 PM EDT) POC Glucose 93 60 - 199 mg/dL CERNER MILLENNIUM Comment: Supplemental ranges: <110 mg/dL before meals <200 mg/dL all other times of the day Blood specimen (specimen) 01/24/2013 5:50 PM EDT 01/24/2013 5:50 PM EDT Presley Madrid MD POINT OF CARE TEST O RDERABLES Performing Organization Address [facility] [place]/[facility] Co de Phone Number CERNER MILLENNIUM * (ABNORMAL) Differential, Manual (01/24/2013 5:40 PM EDT) Neutrophil % 69 34 - 71 % CERNER MILLENNIUM Band % 20(H) 0 - 12 % CERNER MILLENNIUM Lymphocyte % 4(L) 19 - 53 % CERNER MILLENNIUM Monocyte % 1(L) 4 - 13 % CERNER MILLENNIUM Metamyelo % 5(H) 0 - 0 % CERNER MILLENNIUM Myelocyte % 1(H) 0 - 0 % CERNER MILLENNIUM Neutrophil Abs 7.5(H) 1.5 - 6.3 x10(3)/mc L CERNER MILLENNIUM Band Abs 2.2(H) 0.2 - 0.6 x10(3)/mc L CERNER MILLENNIUM Neutr Abs (ANC) 9.73(H) 1.50 - 6.30 x10(3)/mc L CERNER MILLENNIUM Lymphocyte Abs 0.4(L) 1.0 - 3.6 x10(3)/mc L CERNER MILLENNIUM Monocyte Abs 0.1(L) 0.2 - 1.0 x10(3)/mc L CERNER MILLENNIUM Metamyelo Abs 0.6(H) 0.0 - 0.0 x10(3)/mc L CERNER MILLENNIUM Myelocyte Abs 0.1(H) 0.0 - 0.0 x10(3)/mc L CERNER MILLENNIUM nRBC % 1(H) 0 - 0 % CERNER MILLENNIUM Tot Diff Cell Ct 100 CER NER MILLENNIUM Plat Estimate Normal CERNER MILLENNIUM RBC Morphology Abnormal CERNE R MILLENNIUM Microcytes 1-5 /HPF CERNER MILLENNIUM Hypochromia Slight CERNER MILLENNIUM Polychromasia Present >5/HPF CERNER MILLENNIUM Ovalocytes 1-5 /HPF CERNER MILLENNIUM [place] Cells 1-5 /HPF CERNER MILLENNIUM Giant Platelets Less than 1 /HPF CE RNER MILLENNIUM nRBC Abs 0.110(H) 0.000 - 0.012 x10(3)/mc L CERNER MILLENNIUM Blood specimen (specimen) 01/24/2013 5:40 PM EDT 01/24/2013 6:14 PM EDT Narrative Resulting Agency Comment Spec In Lab Lesly Hope MD HEMATOLOGY ORDERABLE S CERNER MILLENNIUM * (ABNORMAL) Basic Metabolic Panel (non-fasting) (01/24/2013 5:40 PM EDT) Glucose Lvl 114 60 - 199 mg/dL CERNER MILLENNIUM Comment:Diabetes: >=200 mg/d L plus symptoms BUN 28(H) 10 - 20 mg/dL CERNER MILLENNIUM Creatinine 2.86(H) 0.80 - 1.50 mg/dL CERNER MILLENNIUM Comment: result rechecked-blr Please note that the pediatric reference intervals supplied above were not validated at [facility]. Results from pediatric patients should be interpreted in conjunction to the patient's age, height and muscle mass. Sodium 138 135 - 145 mmol/L CERNER MILLENNIUM Potassium 3.7 3.5 - 5.0 mmol/L CERNER MILLENNIUM Comment: Please note: ??Patients with WBC >100,000 may have falsely elevated Potassium levels. ??For accurate Potassium quantification in these patients send serum separator tube (gold top) for subsequent determinations. ??Contact the Clinical Chemistry Laboratory if there are any questions. Chloride 107 98 - 107 mmol/L CERNER MILLENNIUM CO2 18(L) 22 - 31 mmol/L CERNER MILLENNIUM Anion Gap 13 5 - 15 mmol/L CERNER MILLENNIUM Calcium 7.6(L) 8.5 - 10.5 mg/dL CERNER MILLENNIUM Estimated GFR 23(L) >=60 CERNER MILLENNIUM Comment: The National Kidney [...] J Am Soc Nephrol;6:1963-72. Blood specimen (specimen) 01/24/2013 5:40 PM EDT 01/24/2013 6:14 PM EDT Narrative Resulting Agency Comment Spec In Lab Lesly Hope MD CHEMISTRY ORDERABLES [facility] * (ABNORMAL) CBC (with Diff) (01/24/2013 5:40 PM EDT) WBC 10.9(H) 4.0 - 10.0 x10(3)/mcL CERNER MILLENNIUM RBC 3.14(L) 4.63 - 6.08 x10(6)/mcL CERNER MILLENNIUM Hemoglobin 8.6(L) 13.7 - 17.5 gm/dL CERNER MILLENNIUM Comment:Patient Transfused Hematocrit 28.4(L) 40.0 - 51.0 % CERNER MILLENNIUM MCV 90.4 79.0 - 92.0 fL CERNER MILLENNIUM MCH 27.4 25.6 - 32.2 pg CERNER MILLENNIUM MCHC 30.3(L) 32.0 - 36.5 gm/dL CERNER MILLENNIUM Platelets 246 145 - 370 x10(3)/mcL CERNER MILLENNIUM RDWSD 61.6(H) 35.0 - 46.0 fL CERNER MILLENNIUM RDWCV 18.7(H) 10.9 - 14.4 % CERNER MILLENNIUM MPV 9.9 9.0 - 12.0 fL CERNER MILLENNIUM Blood specimen (specimen) 01/24/2013 5:40 PM EDT 01/24/2013 6:14 PM EDT Narrative Resulting Agency Comment Spec In Lab Lesly Hope MD HEMATOLOGY ORDERABLE S DANETTE HARTMANENNIUM * (ABNORMAL) APTT (01/24/2013 5:40 PM EDT) PTT 46(H) 25 - 35 sec CERDAKSHA MILLENNIUM Comment: Recommended therapeutic PTT range for full dose unfractionated heparin is 80-114 seconds. Blood specimen (specimen) 01/24/2013 5:40 PM EDT 01/24/2013 6:13 PM EDT Narrative Resulting Agency Comment Spec In Lab Lesly Hope MD HEMATOLOGY ORDERABLE S DANETTE HARTMANENNIUM * (ABNORMAL) Prothrombin Time (01/24/2013 5:40 PM EDT) PT 24.3(H) 12.0 - 15.0 sec CERDAKHSA MILLENNIUM Comment: [facility] Transfusion Committee Guidelines: INR less than 2.0, PTT less than OR equal to 43.5 seconds, or Fibrinogen greater than or equal to 100 mg/dl indicate adequate procoagulant activity for hemostasis in patients without underlying bleeding disorders. INR 2.1(H) 0.9 - 1.1 CERNER MILLENNIUM Blood specimen (specimen) 01/24/2013 5:40 PM EDT 01/24/2013 6:13 PM EDT Narrative Resulting Agency Comment Spec In Lab Lesly Hope MD HEMATOLOGY ORDERABLE S Performing Organization Address [facility] [place]/[facility] Co de Phone Number DANTETE VALENCIA * (ABNORMAL) Lactic acid, plasma (01/24/2013 5:40 PM EDT) Lactate 4.1(H) 0.5 - 2.2 mmol/L DANETTE VALENCIA Blood specimen (specimen) 01/24/2013 5:40 PM EDT 01/24/2013 6:13 PM EDT Narrative Resulting Agency Comment Spec In Lab Lesly Hope MD CHEMISTRY ORDERABLES Performing Organization Address [facility] [place]/[facility] de Phone Number DANETTE VALENCIA * CT Drain-Peritoneal (01/24/2013 5:14 PM EDT) Anatomical Region Laterality Modality Abdomen Computed Tomogra phy 01/24/2013 5:14 PM EDT Impressions 01/24/2013 8:37 PM EDT IMPRESSION: Technically successful drain placement in left pelvic abscess. ?? Recommend: Kamrar drainage, flush with 5-10 cc NS q 8h Narrative 01/24/2013 8:37 PM EDT VIR PROCEDURE NOTE: CT-guided drainage pelvic abscess ?? Acc #: [id number] ?? INDICATION: Abscess ?? Status post robotic prostatectomy/LND approximately 2 months ago. Post-op course was notable for pelvic hematoma. 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 CECT scan demonstrated left-sided pelvic hematoma, with loculation and gas within the collection. To CT for drain after embolization of superior gluteal branch false aneurysm. ?? TECHNIQUE: After discussing risks (including infection and hemorrhage) and benefits, patient consented to the procedure. Due to the painful nature of the procedure, split doses of fentanyl and Versed were administered by the IR nurse during continuous monitoring of pulse, blood pressure, and oxygen saturation. Total dose of fentanyl 50 mcg IV. ?? The lesion was localized with CT. After sterile preparation of the overlying skin, 7 cc 1% lidocaine SQ was administered for anesthesia, and an 18-gauge needle was advanced under CT guidance into the collection. Over an 0.035 guidewire, the tract was dilated to 10 Fr, and a 10-Fr locking pigtail drain was placed. A catheter was secured to the skin and left to gravity drainage. Post-procedure CT images were obtained. The patient tolerated the procedure well. There were no immediate complications. Specimen submitted for culture. ?? Contrast: 0. EBL: 0 cc. ?? FINDINGS: Contrast static within left pelvic aneurysm. Contrast extends irregularly throughout left pelvic 12 x 8 x 6 cm collection, including caudal extent with gas loculations. Drain placed into caudal aspect of collection. 10 cc brownish-sanguinous fluid aspirated. ?? Procedure Note Ermias Moya MD - 01/24/2013 VIR PROCEDURE NOTE: CT-guided drainage pelvic abscess Acc #: [id number] INDICATION: Abscess Status post robotic prostatectomy/LND approximately 2 months ago. Post-op course was notable for pelvic hematoma. 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 CECT scan demonstrated left-sided pelvichematoma, with loculation and gas within the collection. To CT for drain after embolization of superior gluteal branch false aneurysm. TECHNIQUE: After discussing risks (including infection and hemorrhage) and benefits, patient consented to the procedure. Due to the painful nature ofthe procedure, split doses of fentanyl and Versed were administered by the IRnurse during continuous monitoring of pulse, blood pressure, and oxygensaturation. Total dose of fentanyl 50 mcg IV. The lesion was localized with CT. After sterile preparation of theoverlying skin, 7 cc 1% lidocaine SQ was administered for anesthesia, and an27-ikpik needle was advanced under CT guidance into the collection. Over an 0.035 guidewire, the tract was dilated to 10 Fr, and a 10-Fr locking pigtaildrain was placed. A catheter was secured to the skin and left to gravitydrainage. Post-procedure CT images were obtained. The patient tolerated theprocedure well. There were no immediate complications. Specimen submitted forculture. Contrast: 0. EBL: 0 cc. FINDINGS: Contrast static within left pelvic aneurysm. Contrast extends irregularly throughout left pelvic 12 x 8 x 6 cm collection, includingcaudal extent with gas loculations. Drain placed into caudal aspect ofcollection. 10 cc brownish-sanguinous fluid aspirated. IMPRESSION IMPRESSION: Technically successful drain placement in left pelvic abscess. Recommend: Kamrar drainage, flush with 5-10 cc NS q 8h Presley Madrid MD IMG CT ORDERABLES * Anaerobic Culture (01/24/2013 4:45 PM EDT) Anaerobic Culture ? Patient Name: DILLAN RODGERS ?Ordered By: PRESLEY MADRID ? MR#: [id number] ?LOC: ??2WST ? /Sex: ??1950 (62 years), ? Male ? PROCEDURE: Anaerobic Culture ?SOURCE: Pelvic Fl ? COLLECTED: 01/24/2013 16:45 ?FREE TEXT SOURCE: CT GUIDED PELVIC FLUID COLLECTION DRAIN ? STARTED: 01/24/2013 17:24 ? PLACEMENT ? FINAL REPORT ? Final Report ? Verified:2012 11:56 ? No anaerobic organisms isolated ? PRELIMINARY REPORT ? Preliminary Report ? Verified:2012 13:01 ? No anaerobic organisms isolated to date ? [facility] Pelvic Fluid 01/24/2013 4:45 PM EDT 01/24/2013 5:24 PM EDT Comment:CT GUIDED PELVIC FLU ID COLLECTION DRAIN PLACEMENT Narrative Resulting Agency Comment Spec In Lab Presley Madrid MD MICROBIOLOGY - GENER AL ORDERABLES Performing Organization Address City/State/ZIP Co va Phone Number DANETTE VALENCIA * Body fluid culture (01/24/2013 4:45 PM EDT) Body Fluid Culture ? Patient Name: DILLAN RODGERS ?Ordered By: PRESLEY MADRID ? MR#: [id number] ?LOC: ??ISCU ? /Sex: ??1950 (62 years), ? Male ? PROCEDURE: Body Fluid Culture ?SOURCE: Pelvic Fl ? COLLECTED: 01/24/2013 16:45 ?FREE TEXT SOURCE: CT GUIDED PELVIC FLUID COLLECTION DRAIN ? STARTED: 01/24/2013 17:24 ? PLACEMENT ? STAINS / PREPARATIONS ? Gram Stain Report ? Verified:01/25/20 13 18:17 ? Moderate White Blood Cells seen ? Few Gram Negative Rods seen ? Rare Gram Positive Cocci in pairs seen ? FINAL REPORT ? Final Report ? Verified:01/28/20 13 10:05 ? Moderate Escherichia coli ? Moderate Enterococcus species ? PRELIMINARY REPORT ? Preliminary Report ? Verified:01/27/20 13 09:20 ? Moderate Escherichia coli ? Moderate Enterococcus species ? Patient: DILLAN RODGERS ? MR#: [id number] ? SUSCEPTIBILITY RESULTS ? Escherichia coli ?NINFA Interp ? Ampicillin ? S ? Ampicillin/Sulbac solis ? S ? Aztreonam ?S ? Cefazolin ?S ? Cefoxitin ?S ? Ceftazidime ?S ? Ceftriaxone ?S ? Cefuroxime ? S ? Ciprofloxacin ?S ? Doripenem ?S ? Gentamicin ? S ? Levofloxacin ? S ? Meropenem ?S ? Piperacillin/Tazo bactam ?S ? Trimethoprim/Sulf a ? S ? Tetracycline ? S ? Tobramycin ? S ? Enterococcus species ? ___ ?NINFA Interp ? Ampicillin(1) ?S ? Levofloxacin ? S ? Erythromycin ? I ? Penicillin ? S ? Vancomycin ? S ? FOOTNOTES ? (1) ? Susceptibility implies high dose therapy. ??Penicillin or Ampicillin ? combined with an aminoglycoside is ? recommended for serious infections. Synergy is predicted for Gentamicin. ? DANETTE VALENCIA Pelvic Fluid 01/24/2013 4:45 PM EDT 01/24/2013 5:24 PM EDT Comment:CT GUIDED PELVIC FLU ID COLLECTION DRAIN PLACEMENT Narrative Resulting Agency Comment Spec In Lab Presley Madrid MD MICROBIOLOGY - GENER AL ORDERABLES DANETTE VALENCIA * IR arterial intervention (01/24/2013 4:15 PM EDT) Anatomical Region Laterality Modality Vascular X-Ray Angiograph y 01/24/2013 4:15 PM EDT Impressions 01/25/2013 9:39 PM EDT Impression: ?? 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 ?? (Permanent occlusive devices were avoided due to the presumed infected collection surrounding the pseudoaneurysm.) ?? Patient to have abscess drained in CT following this procedure today. ?? Would consider CTA of the pelvis in one month to confirm occlusion of the pseudoaneurysm. ?? Resident/Fellow: Yash/ Malathi ?? Attending:Griffin ?? I, Dr. Moya, was present throughout the procedure. ? Film and interpretation reviewed by the attending Narrative 01/25/2013 9:39 PM EDT VIR PROCEDURE NOTE ?? Procedure: ?? Left selective common iliac arteriogram ?? Left selective internal iliac arteriogram ?? Left selective superior gluteal arteriogram ?? Left internal iliac artery embolization with gelfoam ?? ACC#: [id number] ?? Indication for Procedure: 62 yr old M patient, s/p robotic prostatectomy/LND approximately 2 months ago. Post-op course was notable for pelvic hematoma. 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 ?? Most recently, he presented to an outside hospital with bilateral hip pain and fever. He was subsequently transferred to [facility]. CECT scan demonstrated left sided pelvic hematoma, displacing the bladder to the right and the external iliac artery anteriorly. There is gas within the collection. There was a 2.2 cm contrast collection posteriorly, consistent with a pseudoaneurysm. ?? Angiography and embolization is requested. The patient's INR is 3.0 and he will require FFP to lower his INR to the 1.8-2.0 range. This was discussed with the urology service. ?? Procedure events: Informed consent obtained. Patient sterilely prepped and draped on the angiography table. Maximum sterile barrier technique used throughout the procedure. Time out performed. At the beginning of the procedure, the patient was tachycardic in the 100's and hypotensive in the 60's/40's. IV normal saline blouses given and phenylephrine gtt started. Hemogram showed hemoglobin drop from 7.5 to 6.5 grams. FFP was continuing to drip and 2 units of PRBCs were initiated. ICU team consulted and they provided additional care. Light fentanyl administered by IR RN. ?? Right groin punctured with 21 ga needle using fluoroscopic guidance following 5 cc 1% lidocaine local anesthesia. 018 wire advanced. 3/5 Fr micropuncture dilator advanced. Exchanged for 035 J wire and 6 Fr sheath. 5 Fr C2 catheter advanced and used to cross the aortic bifurcation. Wire easily selected the left internal iliac artery. Bilateral oblique arteriograms performed. Gelfoam slurry embolization performed to near stasis. Repeat arteriogram performed. Left superior gluteal selected with .035 glidewire and C2 and arteriogram peformed. Additional gelfoam embolization performed. Catheter pulled back to internal iliac artery. Additional gelfoam embolization performed. Repeat arteriogram performed with reflux showing the common and external iliac arteries. Catheter removed. Right iliac and common femoral arteriogram performed. Right femoral arteriotomy closed with Perclose. ?? Medications: ?? Final sedation medications will be reported in the associated CT drain report on the same date. ?? Lidocaine <10ccs SQ. ?? Antibiotic Prophylaxis: On zosyn and Vancomycin ?? Phenylephrine gtt initiated during the case for hypotension. ?? Contrast: 75 cc. Omni 350, 125 discarded. ?? Fluoro Dose: 19.8 mins ?? Est Blood Loss: <5cc. ?? Complications: 1. Some burning pain in the posterior left thigh developed during the case. This is of unclear etiology and is not commonly seen during embolization in this vascular bed. Doppler positive pulses in the left foot were unchanged. Neuromuscular exam of the left leg remained normal. ?? 2. Hypotension managed as described above. ?? Findings: Left internal iliac arteriogram showed the pseudoaneurysm seen on the recent CT angiogram to originate from a left superior gluteal artery distal branch. Embolized to near stasis with gelfoam but repeat angiogram showed persistent filling. Selective left superior gluteal embolized with gelfoam to stasis. Catheter pulled back to internal iliac and the entire vessel was further embolized with gelfoam to stasis, confirmed on final angiogram. Reflux of contrast into the left common and internal iliac arteries showed normal vessels with no extravasation or pseudoaneurysm. Right iliac and common femoral arteriogram showed normal vessels. ?? Procedure Note Ermias Moya MD - 01/25/2013 VIR PROCEDURE NOTE Procedure: Left selective common iliac arteriogram Left selective internal iliac arteriogram Left selective superior gluteal arteriogram Left internal iliac artery embolization with gelfoam ACC#: [id number] Indication for Procedure: 62 yr old M patient, s/p roboticprostatectomy/LND approximately 2 months ago. Post-op course was notable for pelvichematoma. 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 Most recently, he presented to an outside hospital with bilateral hip painand fever. He was subsequently transferred to [facility]. CECT scan demonstratedleft sided pelvic hematoma, displacing the bladder to the right and theexternal iliac artery anteriorly. There is gas within the collection. There was a2.2 cm contrast collection posteriorly, consistent with a pseudoaneurysm. Angiography and embolization is requested. The patient's INR is 3.0 and hewill require FFP to lower his INR to the 1.8-2.0 range. This was discussed withthe urology service. Procedure events: Informed consent obtained. Patient sterilely prepped and draped on the angiography table. Maximum sterile barrier technique used throughout the procedure. Time out performed. At the beginning of the procedure, the patient was tachycardic in the 100's and hypotensive in the 60's/40's. IV normal saline blouses given and phenylephrine gtt started. Hemogram showed hemoglobin drop from 7.5 to 6.5 grams. FFP was continuingto drip and 2 units of PRBCs were initiated. ICU team consulted and theyprovided additional care. Light fentanyl administered by IR RN. Right groin punctured with 21 ga needle using fluoroscopic guidancefollowing 5 cc 1% lidocaine local anesthesia. 018 wire advanced. 3/5 Fr micropuncture dilator advanced. Exchanged for 035 J wire and 6 Fr sheath. 5 Fr F4dowtyrui advanced and used to cross the aortic bifurcation. Wire easily selectedthe left internal iliac artery. Bilateral oblique arteriograms performed.Gelfoam slurry embolization performed to near stasis. Repeat arteriogramperformed. Left superior gluteal selected with .035 glidewire and C2 and arteriogram peformed. Additional gelfoam embolization performed. Catheter pulled backto internal iliac artery. Additional gelfoam embolization performed. Repeat arteriogram performed with reflux showing the common and external iliac arteries. Catheter removed. Right iliac and common femoral arteriogram performed. Right femoral arteriotomy closed with Perclose. Medications: Final sedation medications will be reported in the associated CT drainreport on the same date. Lidocaine <10ccs SQ. Antibiotic Prophylaxis: On zosyn and Vancomycin Phenylephrine gtt initiated during the case for hypotension. Contrast: 75 cc. Omni 350, 125 discarded. Fluoro Dose: 19.8 mins Est Blood Loss: <5cc. Complications: 1. Some burning pain in the posterior left thigh developed during the case. This is of unclear etiology and is not commonly seenduring embolization in this vascular bed. Doppler positive pulses in the leftfoot were unchanged. Neuromuscular exam of the left leg remained normal. 2. Hypotension managed as described above. Findings: Left internal iliac arteriogram showed the pseudoaneurysm seenon the recent CT angiogram to originate from a left superior gluteal arterydistal branch. Embolized to near stasis with gelfoam but repeat angiogram showed persistent filling. Selective left superior gluteal embolized with gelfoamto stasis. Catheter pulled back to internal iliac and the entire vessel was further embolized with gelfoam to stasis, confirmed on final angiogram.Reflux of contrast into the left common and internal iliac arteries showed normal vessels with no extravasation or pseudoaneurysm. Right iliac and commonfemoral arteriogram showed normal vessels. 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 (Permanent occlusive devices were avoided due to the presumed infected collection surrounding the pseudoaneurysm.) Patient to have abscess drained in CT following this procedure today. Would consider CTA of the pelvis in one month to confirm occlusion of the pseudoaneurysm. Resident/Fellow: Yash/ Malathi Attending:Dr. Griffin Hester, was present throughout the procedure. Film and interpretation reviewed by the attending Presley Madrid MD IMG IR ORDERABLES * Prepare thawed plasma (01/24/2013 2:44 PM EDT) Dispensed? Yes DANETTE [facility] Blood specimen (specimen) 01/24/2013 2:44 PM EDT 01/24/2013 2:44 PM EDT Narrative Resulting Agency Comment Spec In Lab Clyde Wyman MD BLOOD BANK PRODUCT O RDERABLES CERNER MINNIEENNIUM * Prepare RBC (01/24/2013 2:24 PM EDT) Dispensed? Yes CERNER MILLENNIUM Blood specimen (specimen) 01/24/2013 2:24 PM EDT 01/24/2013 2:24 PM EDT Narrative Resulting Agency Comment Spec In Lab Ermias Moya MD BLOOD BANK PRODUCT O RDERABLES CERNER MINNIEENNIUM * Prepare RBC (01/24/2013 2:20 PM EDT) Dispensed? Yes CERNER MILLENNIUM Blood specimen (specimen) 01/24/2013 2:20 PM EDT 01/24/2013 2:21 PM EDT Ermias Moya MD BLOOD BANK PRODUCT O RDERABLES Performing Organization Address [facility]/State/ZIP Co de Phone Number CERNER MINNIEENNIUM * (ABNORMAL) Hemogram (01/24/2013 2:00 PM EDT) WBC 3.6(L) 4.0 - 10.0 x10(3)/mcL CERNER MILLENNIUM RBC 2.41(L) 4.63 - 6.08 x10(6)/mcL CERNER MILLENNIUM Hemoglobin 6.5(L) 13.7 - 17.5 gm/dL CERNER MILLENNIUM Hematocrit 21.8(L) 40.0 - 51.0 % CERNER MILLENNIUM MCV 90.5 79.0 - 92.0 fL CERNER MILLENNIUM Comment:Matches Previous Res ults MCH 27.0 25.6 - 32.2 pg CERNER MILLENNIUM MCHC 29.8(L) 32.0 - 36.5 gm/dL CERNER MILLENNIUM Platelets 221 145 - 370 x10(3)/mcL CERNER MILLENNIUM RDWSD 63.2(H) 35.0 - 46.0 fL CERNER MILLENNIUM RDWCV 18.9(H) 10.9 - 14.4 % DANETTE VALENCIA MPV 9.8 9.0 - 12.0 fL DANETTE VALENCIA Blood specimen (specimen) 01/24/2013 2:00 PM EDT 01/24/2013 2:05 PM EDT Narrative Resulting Agency Comment Spec In Lab Ermias Moya MD HEMATOLOGY ORDERABLE S Performing Organization Address [facility] Co de Phone Number DANETTE VALENCIA * Prepare thawed plasma (01/24/2013 11:54 AM EDT) Dispensed? Yes DANETTE VALENCIA Blood specimen (specimen) 01/24/2013 11:54 AM EDT 01/24/2013 11:54 AM EDT Narrative Resulting Agency Comment Spec In Lab Clyde Wyman MD BLOOD BANK PRODUCT O RDERABLES Performing Organization Address [facility] de Phone Number DANETTE VALENCIA * Blood culture (01/24/2013 10:28 AM EDT) Blood Culture ? Patient Name: DILLAN RODGERS ?Ordered By: PRESLEY MADRID ? MR#: [id number] ?LOC: ??ISCU ? /Sex: ??1950 (62 years), ? Male ? PROCEDURE: Blood Culture ?SOURCE: Blood ? COLLECTED: 01/24/2013 10:28 ? BODY SITE: Left Antecubital ? STARTED: 01/24/2013 10:51 ? STAINS / PREPARATIONS ? Bottle Gram Stain ? Verified:01/25/2013 02:23 ? Growth detected in aerobic and anaerobic bottles. ? Gram Negative Rods seen ? Gram Positive Cocci in chains Results called to and read back by ? CORRINA ROOT ? FINAL REPORT ? Final Report ? Verified:01/27/2013 09:59 ? Escherichia coli isolated ? Susceptibilities previously reported ? Enterococcus faecalis isolated ? Susceptibilities previously reported ? PRELIMINARY REPORT ? Preliminary Report ? Verified:01/26/2013 07:54 ? Escherichia coli isolated ? Susceptibilities previously reported ? Enterococcus faecalis isolated ? Susceptibility testing in progress ? CERNER MILLENNIUM Blood specimen (specimen) ANTECUBITAL REGION STRUCTURE / Unknown 01/24/2013 10:28 AM EDT 01/24/2013 10:51 AM EDT Narrative Resulting Agency Comment Spec In Lab Presley Madrid MD MICROBIOLOGY - BLOOD ORDERABLES CERNER MILLENNIUM * (ABNORMAL) Differential, Manual (01/24/2013 10:22 AM EDT) Neutrophil % 34 34 - 71 % CERNER MILLENNIUM Band % 7 0 - 12 % CERNER MILLENNIUM Lymphocyte % 48 19 - 53 % CERNER MILLENNIUM Eosinophil % 6 0 - 7 % CERNER MILLENNIUM Basophil % 3(H) 0 - 2 % CERNER MILLENNIUM Metamyelo % 1(H) 0 - 0 % CERNER MILLENNIUM Myelocyte % 1(H) 0 - 0 % CERNER MILLENNIUM Neutrophil Abs 0.4(L) 1.5 - 6.3 x10(3)/mc L CERNER MILLENNIUM Band Abs 0.1(L) 0.2 - 0.6 x10(3)/mc L CERNER MILLENNIUM Neutr Abs (ANC) 0.53(L) 1.50 - 6.30 x10(3)/mc L CERNER MILLENNIUM Lymphocyte Abs 0.6(L) 1.0 - 3.6 x10(3)/mc L CERNER MILLENNIUM Eosinophil Abs 0.1 0.0 - 0.5 x10(3)/mc L CERNER MILLENNIUM Basophil Abs 0.0 0.0 - 0.2 x10(3)/mc L CERNER MILLENNIUM Metamyelo Abs 0.0 0.0 - 0.0 x10(3)/mc L CERNER MILLENNIUM Myelocyte Abs 0.0 0.0 - 0.0 x10(3)/mc L CERNER MILLENNIUM nRBC % 7(H) 0 - 0 % CERNER MILLENNIUM Tot Diff Cell Ct 100 CERNER MILLENNIUM Plat Estimate Normal CERNER MILLENNIUM RBC Morphology Abnormal CERNE R MILLENNIUM Ovalocytes 1-5 /HPF CERNER MILLENNIUM Lul Cells 1-5 /HPF CERNER MILLENNIUM Giant Platelets Less than 1 /HPF CERNER MILLENNIUM nRBC Abs 0.090(H) 0.000 - 0.012 x10(3)/mc L CERNER MILLENNIUM Blood specimen (specimen) 01/24/2013 10:22 AM EDT 01/24/2013 10:38 AM EDT Narrative Resulting Agency Comment Spec In Lab Presley Madrid MD HEMATOLOGY ORDERABLE S CERNER MILLENNIUM * (ABNORMAL) Nucleated Red Blood Cells (01/24/2013 10:22 AM EDT) nRBC % Auto 8.3(H) 0.0 - 0.2 % CERNER MILLENNIUM nRBC Abs Auto 0.110(H) 0.000 - 0.012 x10(3)/mcL CERNER MILLENNIUM Blood specimen (specimen) 01/24/2013 10:22 AM EDT 01/24/2013 10:38 AM EDT Narrative Resulting Agency Comment Spec In Lab Presley Madrid MD HEMATOLOGY ORDERABLE S CERNER MILLENNIUM * (ABNORMAL) CBC (with Diff) (01/24/2013 10:22 AM EDT) WBC 1.3(Critic al) 4.0 - 10.0 x10(3)/mc L CERNER MILLENNIUM Comment: This result has been called to MALIA BAIN by Sheeba Leblanc on 01.24.13 at 11:10, and has been read back (). RBC 3.09(L) 4.63 - 6.08 x10(6)/mc L CERNER MILLENNIUM Hemoglobin 8.2(L) 13.7 - 17.5 gm/dL CERNER MILLENNIUM Hematocrit 28.6(L) 40.0 - 51.0 % CERNER MILLENNIUM MCV 92.6(H) 79.0 - 92.0 fL CERNER MILLENNIUM MCH 26.5 25.6 - 32.2 pg CERNER MILLENNIUM MCHC 28.7(L) 32.0 - 36.5 gm/dL CERNER MILLENNIUM Platelets 345 145 - 370 x10(3)/mc L CERNER MILLENNIUM RDWSD 64.9(H) 35.0 - 46.0 fL CERNER MILLENNIUM RDWCV 19.3(H) 10.9 - 14.4 % CERNER MILLENNIUM MPV 9.5 9.0 - 12.0 fL CERNER MILLENNIUM Blood specimen (specimen) 01/24/2013 10:22 AM EDT 01/24/2013 10:38 AM EDT Narrative Resulting Agency Comment Spec In Lab Presley Madrid MD HEMATOLOGY ORDERABLE S CERNER MILLENNIUM * Blood culture (01/24/2013 10:22 AM EDT) Blood Culture ? Patient Name: DILLAN RODGERS Terrence ?Ordered By: PRESLEY MADRID ? MR#: [id number] ?LOC: ??ISCU ? /Sex: ??1950 (62 years), ? Male ? PROCEDURE: Blood Culture ?SOURCE: Blood ? COLLECTED: 01/24/2013 10:22 ? BODY SITE: Right Antecubital ? STARTED: 01/24/2013 10:52 ? STAINS / PREPARATIONS ? Bottle Gram Stain ? Verified:01/26/20 13 01:46 ? Growth detected in aerobic bottle. ? Gram Negative Rods seen ? Gram Positive Cocci in chains ? Bottle Gram Stain ? Verified:01/26/20 13 00:05 ? Growth detected in anaerobic bottle. ? Gram Negative Rods seen ? Gram Positive Cocci in chains Results called to and read back by ? CORRINA OLSON ? FINAL REPORT ? Final Report ? Verified:01/28/20 13 09:58 ? Escherichia coli isolated ? Isolate saved. If future testing is required, contact the Microbiology ? [employer]. ? Enterococcus faecalis isolated ? Isolate saved. If future testing is required, contact the Microbiology ? [employer] Supervisor. ? PRELIMINARY REPORT ? Preliminary Report ? Verified:01/27/20 13 07:51 ? Escherichia coli isolated ? Isolate saved. If future testing is required, contact the Microbiology ? [employer] Supervisor. ? Enterococcus faecalis isolated ? Susceptibility testing in progress ? Patient: DILLAN RODGERS ? MR#: [id number] ? SUSCEPTIBILITY RESULTS ? Escherichia coli ?NINFA Interp ? Ampicillin ? S ? Ampicillin/Sulbac solis ? S ? Aztreonam ?S ? Cefazolin ?S ? Cefoxitin ?S ? Ceftazidime ?S ? Ceftriaxone ?S ? Cefuroxime ? S ? Ciprofloxacin ?S ? Doripenem ?S ? Gentamicin ? S ? Levofloxacin ? S ? Meropenem ?S ? Piperacillin/Tazo bactam ?S ? Trimethoprim/Sulf a ? S ? Tetracycline ? S ? Tobramycin ? S ? Enterococcus faecalis ? ____ ?NINFA Interp ? Ampicillin(1) ?S ? Levofloxacin ? S ? Erythromycin ? I ? Penicillin ? S ? Vancomycin ? S ? FOOTNOTES ? (1) ? Susceptibility implies high dose therapy. ??Penicillin or Ampicillin ? combined with an aminoglycoside is ? recommended for serious infections. Synergy is predicted for Gentamicin. ? DANETTE HARTMANSERENITYNONA Blood specimen (specimen) ANTECUBITAL REGION STRUCTURE / Unknown 01/24/2013 10:22 AM EDT 01/24/2013 10:52 AM EDT Narrative Resulting Agency Comment Spec In Lab Presley Madrid MD MICROBIOLOGY - BLOOD ORDERABLES DANETTE VALENCIA * (ABNORMAL) Urinalysis with microscopic (01/24/2013 10:09 AM EDT) Glucose UA Negative Negative mg/dL [facility] Protein UA >600(A) Neg mg/dL [facility] Bilirubin UA Negative Negative mg/dL [facility] Urobilinogen UA Normal Normal mg/dL [facility] pH UA 7.0 5.0 - 8.0 [facility] Blood UA Large(A) Neg [facility] Ketones UA Neg Neg mg/dL [facility] Nitrite UA Neg Neg [facility] Leukocytes UA Small(A) Neg [facility] Appearance UA Cloudy(A) Clear [facility] Spec Kamrar UA >1.035 1.002 - 1.030 [facility] Color UA Dark Brown Yellow [facility] RBC UA >182(H) 0 - 3 /HPF [facility] WBC UA >182(H) 0 - 3 /HPF [facility] WBCs Clumping Many /HPF [facility] Bacteria UA Many /HPF [facility] Urine specimen (specimen) 01/24/2013 10:09 AM EDT 01/25/2013 6:13 AM EDT Narrative Resulting Agency Comment Spec In Lab Presley Madrid MD URINE ORDERABLES Performing Organization Address City/[facility] Co de Phone Number [facility] * Urine Hold (01/24/2013 10:08 AM EDT) Urine Hold Sample in lab. DANETTE VALENCIA Urine specimen (specimen) 01/24/2013 10:08 AM EDT 01/24/2013 10:22 AM EDT Presley Madrid MD URINE ORDERABLES [facility] * Urine culture Clean Catch Urine (01/24/2013 10:08 AM EDT) Urine Culture ? Patient Name: DILLAN RODGERS W ?Ordered By: PRESLEY MADRID ? MR#: [id number] ?LOC: ??ICUS ? /Sex: ??1950 (62 years), ? Male ? PROCEDURE: Urine Culture ?SOURCE: U CC ? COLLECTED: 01/24/2013 10:08 ? STARTED: 01/24/2013 10:40 ? FINAL REPORT ? Final Report ? Verified:01/27/20 13 10:33 ? 10,000-49,000 cfu/ml Escherichia coli ? 10,000-49,000 cfu/ml Enterococcus species ? 1,000-9,000 cfu/ml Gram Negative Rods #2 ? PRELIMINARY REPORT ? Preliminary Report ? Verified:01/26/20 13 08:04 ? 10,000-49,000 cfu/ml Gram Negative Rods ? 10,000-49,000 cfu/ml Enterococcus species ? SUSCEPTIBILITY RESULTS ? Escherichia coli ?NINFA Interp ? Ampicillin ? S ? Ampicillin/Sulbac solis ? S ? Aztreonam ?S ? Cefazolin ?S ? Cefoxitin ?I ? Ceftazidime ?S ? Ceftriaxone ?S ? Cefuroxime ? I ? Ciprofloxacin ?S ? Doripenem ?S ? Gentamicin ? S ? Levofloxacin ? S ? Meropenem ?S ? Nitrofurantoin ? S ? Piperacillin/Tazo bactam ?S ? Trimethoprim/Sulf a ? S ? Tetracycline ? S ? Tobramycin ? S ? Patient: DILLAN RODGERS W ? MR#: [id number] ? Enterococcus species ? ___ ?NINFA Interp ? Ampicillin ? S ? Ciprofloxacin ?S ? Levofloxacin ? S ? Nitrofurantoin ? S ? Tetracycline ? S ? Penicillin ? S ? Vancomycin ? S ? DANETTE VALENCIA Urine specimen obtained by clean catch procedure (specimen) 01/24/2013 10:08 AM EDT 01/24/2013 10:39 AM EDT Narrative Resulting Agency Comment Spec In Lab Presley Madrid MD MICROBIOLOGY - GENER AL ORDERABLES Performing Organization Address [facility] de Phone Number [facility] * Prepare thawed plasma (01/24/2013 9:25 AM EDT) Dispensed? Yes DANETTE VALENCIA Blood specimen (specimen) 01/24/2013 9:25 AM EDT 01/24/2013 9:25 AM EDT Narrative Resulting Agency Comment Spec In Lab Clyde Wyman MD BLOOD BANK PRODUCT O RDERABLES Performing Organization Address [facility] de Phone Number YAKOVBANNER MINNIEBAN[facility]ERNONA * Prepare thawed plasma (01/24/2013 8:35 AM EDT) Dispensed? Yes CERNER MILLENNIUM Blood specimen (specimen) 01/24/2013 8:35 AM EDT 01/24/2013 8:33 AM EDT Narrative Resulting Agency Comment Spec In Lab Presley Madrid MD BLOOD BANK PRODUCT O RDERABLES CERNER MILLENNIUM * (ABNORMAL) Differential, Automated (01/24/2013 6:02 AM EDT) Neutrophils % 81.8(H) 34.0 - 71.0 % CERNER MILLENNIUM Neutr Abs (ANC) 10.07(H) 1.50 - 6.30 x10(3)/mc L CERNER MILLENNIUM Lymphocytes % 7.6(L) 19.0 - 53.0 % CERNER MILLENNIUM Lymphocytes Abs 0.9(L) 1.0 - 3.6 x10(3)/mc L CERNER MILLENNIUM Monocytes % 8.8 4.0 - 13.0 % CERNER MILLENNIUM Monocyte Abs 1.1(H) 0.2 - 1.0 x10(3)/mc L CERNER MILLENNIUM Eosinophils % 1.2 0.0 - 7.0 % CERNER MILLENNIUM Eosinophils [...] differential will be performed. Yeni Gran Abs 0.01 0.00 - 0.05 x10(3)/mc L CERNER MILLENNIUM Blood specimen (specimen) 01/24/2013 6:02 AM EDT 01/24/2013 6:13 AM EDT Presley Madrid MD HEMATOLOGY ORDERABLE S CERDAKSHA MILLENNIUM * (ABNORMAL) CBC (with Diff) (01/24/2013 6:02 AM EDT) WBC 12.3(H) 4.0 - 10.0 x10(3)/mcL CERNER MILLENNIUM RBC 2.78(L) 4.63 - 6.08 x10(6)/mcL CERNER MILLENNIUM Hemoglobin 7.5(L) 13.7 - 17.5 gm/dL CERNER MILLENNIUM Hematocrit 25.6(L) 40.0 - 51.0 % CERNER MILLENNIUM MCV 92.1(H) 79.0 - 92.0 fL CERNER MILLENNIUM MCH 27.0 25.6 - 32.2 pg CERNER MILLENNIUM MCHC 29.3(L) 32.0 - 36.5 gm/dL CERNER MILLENNIUM Comment:Matches Previous Res ults Platelets 316 145 - 370 x10(3)/mcL CERNER MILLENNIUM RDWSD 64.3(H) 35.0 - 46.0 fL CERNER MILLENNIUM RDWCV 18.9(H) 10.9 - 14.4 % CERNER MILLENNIUM MPV 9.3 9.0 - 12.0 fL CERNER MILLENNIUM Blood specimen (specimen) 01/24/2013 6:02 AM EDT 01/24/2013 6:13 AM EDT Narrative Resulting Agency Comment Spec In Lab Presley Madrid MD HEMATOLOGY ORDERABLE S DANETTE PRIDE[facility] * Transfuse RBC (01/24/2013 5:30 AM EDT) Presley Madrid MD NURSING TREATMENT OR DERABLES - BLOOD ADMIN * Transfuse RBC (01/24/2013 5:30 AM EDT) Presley Madrid MD NURSING TREATMENT OR DERABLES - BLOOD ADMIN * Prepare RBC (01/24/2013 1:15 AM EDT) Dispensed? Yes DANETTE VALENCIA Blood specimen (specimen) 01/24/2013 1:15 AM EDT 01/24/2013 1:14 AM EDT Narrative Resulting Agency Comment Spec In Lab Presley Madrid MD BLOOD BANK PRODUCT O RDERABLES DANETTE VALENCIA * CT pelvis with contrast (01/24/2013 12:55 AM EDT) Anatomical Region Laterality Modality Pelvis Computed Tomogra phy 01/24/2013 12:5 5 AM EDT Narrative 01/24/2013 9:[address] Pelvis With Contrast Clinical History ? 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 Technique Contrast-enhanced CT of the pelvis after 110 mL Omnipaque 350. Findings Marked interval enlargement of the hematoma in the left side of the pelvis, which measures now approximately 13 x 7 x 14 cm (borders are indistinct and exact determination of the size is not possible). ??There is a large amount of active contrast extravasation into the hematoma (series 2, image 48). ??Numerous air inclusions are present especially at the inferior aspect, which are highly worrisome for superinfection. Attenuation of the left femoral vein is slightly inhomogeneous and decreased in comparison to the right side, suspicious for thrombus. The left external and internal iliac vein cannot be delineated and are occluded or highly compressed due to the hematoma. ?? Mild to moderate hydronephrosis and hydroureter of the left kidney due to mass effect of the hematoma onto the most inferior aspect of the left ureter. ?? The right kidney is severely atrophic and contains two cysts with rim calcifications. A 7 mm hypodensity at the inferior aspect of the right liver lobe is too small to characterize. An IVC filter is in place. ?? Note is made of air within the urinary bladder, which may be iatrogenic. ??In addition there is a rounded area of slightly increased attenuation at the base of the urinary bladder, which is indeterminate. Incidental note is made of a small fat containing umbilical hernia. ?? Skeleton: Focal interruption of the 11th rib on the right, which may represent nonunion of a rib fracture, however, this is only partially visualized on this exam on the most superior image of the scan. Degenerative changes of the spine, especially degenerative disc disease at level L5-S1. A well-circumscribed lucency at the femoral neck on the left with sclerotic rim has a benign appearance. ?? Impression Marked interval enlargement of the iliacus hematoma in the left side of the pelvis. Active bleeding at the time of the scan. Multiple air inclusions are consistent with superinfection with gas-forming bacteria. Suspect thrombus within the left femoral vein. Left iliac vein is either highly compressed or occluded. Compression of the inferior aspect of the left ureter, which leads to mild to moderate left pelvicaliectasis. This is especially of note as the right kidney is highly atrophic. Air within the urinary bladder, which may be iatrogenic. 2.5 cm higher attenuation at the urinary bladder neck, which is indeterminate and may represent clot or soft tissue. A focal interruption of the 11th rib on the right at the posterior aspect is only partially included on this exam and not fully evaluated. 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 Procedure Note Bailey Collazo MD - 01/24/[address] Pelvis With Contrast Clinical History ? 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 Technique Contrast-enhanced CT of the pelvis after 110 mL Omnipaque 350. Findings Marked interval enlargement of the hematoma in the left side of thepelvis, which measures now approximately 13 x 7 x 14 cm (borders are indistinctand exact determination of the size is not possible). There is a large amountof active contrast extravasation into the hematoma (series 2, image 48).Numerous air inclusions are present especially at the inferior aspect, which arehighly worrisome for superinfection. Attenuation of the left femoral vein is slightly inhomogeneous anddecreased in comparison to the right side, suspicious for thrombus. The left externaland internal iliac vein cannot be delineated and are occluded or highlycompressed due to the hematoma. Mild to moderate hydronephrosis and hydroureter of the left kidney due tomass effect of the hematoma onto the most inferior aspect of the left ureter. The right kidney is severely atrophic and contains two cysts with rim calcifications. A 7 mm hypodensity at the inferior aspect of the rightliver lobe is too small to characterize. An IVC filter is in place. Note is made of air within the urinary bladder, which may be iatrogenic.In addition there is a rounded area of slightly increased attenuation at thebase of the urinary bladder, which is indeterminate. Incidental note is made ofa small fat containing umbilical hernia. Skeleton: Focal interruption of the 11th rib on the right, which mayrepresent nonunion of a rib fracture, however, this is only partially visualized onthis exam on the most superior image of the scan. Degenerative changes of thespine, especially degenerative disc disease at level L5-S1. A well-circumscribed lucency at the femoral neck on the left with sclerotic rim has a benign appearance. Impression Marked interval enlargement of the iliacus hematoma in the left side ofthe pelvis. Active bleeding at the time of the scan. Multiple air inclusionsare consistent with superinfection with gas-forming bacteria. Suspect thrombus within the left femoral vein. Left iliac vein is eitherhighly compressed or occluded. Compression of the inferior aspect of the left ureter, which leads to mildto moderate left pelvicaliectasis. This is especially of note as the rightkidney is highly atrophic. Air within the urinary bladder, which may be iatrogenic. 2.5 cm higher attenuation at the urinary bladder neck, which is indeterminate and may represent clot or soft tissue. A focal interruption of the 11th rib on the right at the posterior aspectis only partially included on this exam and not fully evaluated. Anosteolytic lesion is not entirely excluded, however, findings are most consistentwith nonunion of a rib fracture. Presley Madrid MD [facility] [place] ORDER[place]LES * (ABNORMAL) Differential, Manual (01/24/2013 12:08 AM EDT) Neutrophil % 80(H) 34 - 71 % CERNER MILLENNIUM Band % 3 0 - 12 % CERNER MILLENNIUM Lymphocyte % 8(L) 19 - 53 % CERNER MILLENNIUM Monocyte % 7 4 - 13 % CERNER MILLENNIUM Eosinophil % 2 0 - 7 % CERNER MILLENNIUM Neutrophil Abs 10.3(H) 1.5 - 6.3 x10(3)/mc L CERNER MILLENNIUM Band Abs 0.4 0.2 - 0.6 x10(3)/mc L CERNER MILLENNIUM Neutr Abs (ANC) 10.64(H) 1.50 - 6.30 x10(3)/mc L CERNER MILLENNIUM Lymphocyte Abs 1.0 1.0 - 3.6 x10(3)/mc L CERNER MILLENNIUM Monocyte Abs 0.9 0.2 - 1.0 x10(3)/mc L CERNER MILLENNIUM Eosinophil Abs 0.3 0.0 - 0.5 x10(3)/mc L CERNER MILLENNIUM Tot Diff Cell Ct 100 CER NER MILLENNIUM Plat Estimate Normal CERNER MILLENNIUM RBC Morphology Abnormal CERNE R MILLENNIUM Macrocytes 1-5 /HPF CERNER MILLENNIUM Microcytes 1-5 /HPF CERNER MILLENNIUM Hypochromia Slight CERNER MILLENNIUM Polychromasia Present >5/HPF CERNER MILLENNIUM Ovalocytes 1-5 /HPF CERNER MILLENNIUM Schistocytes 1-5 /HPF CERNER MILLENNIUM [place] Cells 1-5 /HPF CERNER MILLENNIUM Blood specimen (specimen) 01/24/2013 12:08 AM EDT 01/24/2013 12:14 AM EDT Narrative Resulting Agency Comment Spec In Lab Presley Madrid MD HEMATOLOGY ORDERABLE S DANETTE PRIDEIUM * Antibody screen (01/24/2013 12:08 AM EDT) Ab Screen Interp Negative CERDAKSHA HARTMANENNIUM Expires at [id number] on: [id number] YAKOVNER MINNIEENNIUM Blood specimen (specimen) 01/24/2013 12:08 AM EDT 01/24/2013 12:35 AM EDT Narrative Resulting Agency Comment Spec In Lab Presley Madrid MD BLOOD BANK LAB ORDER JAMES DANETTE PRIDEIUM * ABO/Rh Typing (01/24/2013 12:08 AM EDT) ABORH Type A Pos CERDAKSAH HARTMANENNIUM Blood specimen (specimen) 01/24/2013 12:08 AM EDT 01/24/2013 12:35 AM EDT Narrative Resulting Agency Comment Spec In Lab Presley Madrid MD BLOOD BANK LAB ORDER JAMES CERNER MILLENNIUM * (ABNORMAL) Basic Metabolic Panel (non-fasting) (01/24/2013 12:08 AM EDT) Glucose Lvl 105 60 - 199 mg/dL CERNER MILLENNIUM Comment:Diabetes: >=200 mg/d L plus symptoms BUN 22(H) 10 - 20 mg/dL CERNER MILLENNIUM Creatinine 1.45 0.80 - 1.50 mg/dL CERNER MILLENNIUM Comment: Please note that the pediatric reference intervals supplied above were not validated at [facility]. Results from pediatric patients should be interpreted in conjunction to the patient's age, height and muscle mass. Sodium 136 135 - 145 mmol/L CERNER MILLENNIUM Potassium 3.8 3.5 - 5.0 mmol/L CERNER MILLENNIUM Comment: Please note: ??Patients with WBC >100,000 may have falsely elevated Potassium levels. ??For accurate Potassium quantification in these patients send serum separator tube (gold top) for subsequent determinations. ??Contact the Clinical Chemistry Laboratory if there are any questions. Chloride 105 98 - 107 mmol/L CERNER MILLENNIUM CO2 19(L) 22 - 31 mmol/L CERNER MILLENNIUM Anion Gap 12 5 - 15 mmol/L CERNER MILLENNIUM Calcium 7.8(L) 8.5 - 10.5 mg/dL CERNER MILLENNIUM Estimated GFR 49(L) >=60 CERNER MILLENNIUM Comment: The National Kidney [...] J Am Soc Nephrol;6:1963-72. Blood specimen (specimen) 01/24/2013 12:08 AM EDT 01/24/2013 12:14 AM EDT Narrative Resulting Agency Comment Spec In Lab Presley Madrid MD CHEMISTRY ORDERABLES DANETTE VALENCIA * (ABNORMAL) Prothrombin Time (01/24/2013 12:08 AM EDT) PT 32.0(H) 12.0 - 15.0 sec DANETTE VALENCIA Comment: [facility] Transfusion Committee Guidelines: INR less than 2.0, PTT less than OR equal to 43.5 seconds, or Fibrinogen greater than or equal to 100 mg/dl indicate adequate procoagulant activity for hemostasis in patients without underlying bleeding disorders. INR 3.0(H) 0.9 - 1.1 DANETTE VALENCIA Blood specimen (specimen) 01/24/2013 12:08 AM EDT 01/24/2013 12:14 AM EDT Narrative Resulting Agency Comment Spec In Lab Presley Madrid MD HEMATOLOGY ORDERABLE S DANETTE HARTMANENNIUM * (ABNORMAL) APTT (01/24/2013 12:08 AM EDT) PTT 72(H) 25 - 35 sec CERNER MILLENNIUM Comment: Recommended therapeutic PTT range for full dose unfractionated heparin is 80-114 seconds. Blood specimen (specimen) 01/24/2013 12:08 AM EDT 01/24/2013 12:14 AM EDT Narrative Resulting Agency Comment Spec In Lab Presley Madrid MD HEMATOLOGY ORDERABLE S Performing Organization Address City/[facility]/ZIP Co de Phone Number CERNER MILLENNIUM * (ABNORMAL) CBC (with Diff) (01/24/2013 12:08 AM EDT) WBC 12.8(H) 4.0 - 10.0 x10(3)/mcL CERNER MILLENNIUM RBC 2.43(L) 4.63 - 6.08 x10(6)/mcL CERNER MILLENNIUM Hemoglobin 6.5(L) 13.7 - 17.5 gm/dL CERNER MILLENNIUM Hematocrit 21.9(L) 40.0 - 51.0 % CERNER MILLENNIUM MCV 90.1 79.0 - 92.0 fL CERNER MILLENNIUM MCH 26.7 25.6 - 32.2 pg CERNER MILLENNIUM MCHC 29.7(L) 32.0 - 36.5 gm/dL CERNER MILLENNIUM Comment:Matches Previous Res ults Platelets 255 145 - 370 x10(3)/mcL CERNER MILLENNIUM RDWSD 65.1(H) 35.0 - 46.0 fL CERNER MILLENNIUM RDWCV 19.7(H) 10.9 - 14.4 % CERNER MILLENNIUM MPV 8.8(L) 9.0 - 12.0 fL CERNER MILLENNIUM Blood specimen (specimen) 01/24/2013 12:08 AM EDT 01/24/2013 12:14 AM EDT Narrative Resulting Agency Comment Spec In Lab Presley Madrid MD HEMATOLOGY ORDERABLE S DANETTE VALENCIA documented in this encounter Visit Diagnoses Diagnosis Postoperative hemorrhage- Primary Hemorrhage complicating a procedure S/P AVR (aortic valve replacement) Heart valve replaced by other means Abscess Cellulitis and abscess of unspecified site Bacteremia Postoperative hemorrhage Hemorrhage complicating a procedure S/P prostatectomy Other postprocedural status S/P AVR (aortic valve replacement) Heart valve replaced by other means S/P AVR (aortic valve replacement) Heart valve replaced by other means documented in this encounter Administered Medications Inactive Administered Medications - up to 3 most recent administrations Medication Order MAR Action Action Date Dose Rate Site acetaminophen (TYLENOL) 650 mg/20.3 mL oral liquid 1,000 mg 1,000 mg, Oral, ONCE, 1 dose, On Tue01/24/13 at 1045, Maximum dose of acetaminophen is 4,000 mg from all sources in 24 hours., Routine Given 01/24/2013 10:39 AM EDT 1,000 mg acetaminophen (TYLENOL) tablet 1,000 mg 1,000 mg, Oral, EVERY 6 HOURS PRN, Starting on 01/27/13 at 1126, Until Tue01/30/13 at 2050, Pain, Maximum dose of acetaminophen is 4000 mg from all sources in 24 hours., Routine Given 01/30/2013 8:52 AM EDT 1,000 mg Given 01/28/2013 2:14 AM EDT 1,000 mg Given 01/27/2013 7:42 PM EDT 1,000 mg ampicillin-sulbactam (UNASYN) 1.5 g vial attach to sodium chloride 0.9% 50 mL Mini-Bag Plus 1.5 g, Intravenous, EVERY 6 HOURS SCHEDULED, First dose on Tue01/26/13 at 1400, Until Discontinued, Administer over 30 Minutes, Indication for (Active or Suspected): for GI/Intra-abdominal Given 01/30/2013 6:05 AM EDT 1.5 g 100 mL/hr Given 01/29/2013 11:39 PM EDT 1.5 g 100 mL/hr Given 01/29/2013 6:00 PM EDT 1.5 g 100 mL/hr chlorhexidine (PERIDEX) 0.12 % oral solution 15 mL 15 mL, Oral, EVERY 12 HOURS SCHEDULED (2 times per day), First dose on Tue01/24/13 at 2100, Until Discontinued, To brush teeth, Routine Given 01/28/2013 9:27 PM EDT 15 mLs Given 01/27/2013 8:35 PM EDT 15 mLs Given 01/27/2013 8:51 AM EDT 15 mLs ciprofloxacin (CIPRO) tablet 500 mg 500 mg, Oral, 2 TIMES DAILY, First dose on Tue01/30/13 at 1100, Until Discontinued, Routine, Indication for (Active or Suspected): for Bacteremia/Sepsis Given 01/30/2013 12:13 PM EDT 500 mg docusate sodium (COLACE) capsule 100 mg 100 mg, Oral, 2 TIMES DAILY, First dose on Tue01/23/13 at 2345, Until Discontinued, Routine Given 01/30/2013 8:46 AM EDT 100 mg Given 01/29/2013 8:27 PM EDT 100 mg Given 01/29/2013 9:00 AM EDT 100 mg esomeprazole (NEXIUM) capsule 40 mg 40 mg, Oral, DAILY, First dose on Tue01/24/13 at 0900, Until Discontinued, Oral route preferred, Routine Given 01/25/2013 8:01 AM EDT 40 mg esomeprazole (NEXIUM) capsule 40 mg 40 mg, Oral, EVERY 12 HOURS SCHEDULED (2 times per day), First dose (after last modification) on Tue01/26/13 at 2300, Until Discontinued, Oral route preferred, Routine Given 01/30/2013 8:46 AM EDT 40 mg Given 01/29/2013 8:27 PM EDT 40 mg Given 01/29/2013 9:00 AM EDT 40 mg esomeprazole (NEXIUM) injection 40 mg 40 mg, Intravenous, DAILY, First dose on Tue01/24/13 at 0900, Until Discontinued, Routine Given 01/26/2013 9:00 AM EDT 40 mg Given 01/24/2013 9:00 AM EDT 40 mg fentaNYL (PF) 50 mcg/mL injection 1 dose, Starting on Tue01/24/13 at 1942, Until Tue01/24/13 at 1945, KARELY KNOX: cabinet override fentaNYL 50mcg/mL injection 25-50 mcg, Intravenous, EVERY 5 MIN PRN, Starting on Tue01/24/13 at 1323, Until Tue01/24/13 at 1535, per protocol, Angio/IR (Intra-Procedure), Routine Given 01/24/2013 4:40 PM EDT 50 mcg Given 01/24/2013 3:53 PM EDT 75 mcg fentaNYL 50mcg/mL injection 50 mcg, Intravenous, ONCE, 1 dose, On Tue01/24/13 at 2015, For line insertion, Routine Given 01/24/2013 7:45 PM EDT 50 mcg fluticasone-salmeterol (ADVAIR) 100-50 mcg/dose diskus inhaler 1 puff 1 puff, Inhalation, EVERY 12 HOURS, First dose on Tue01/23/13 at 2345, Until Discontinued, Rinse mouth after administration, Routine Given 01/30/2013 8:46 AM EDT 1 puff Given 01/29/2013 8:27 PM EDT 1 puff Given 01/29/2013 9:00 AM EDT 1 puff hydroCODone-acetaminophen (VICODIN) 5-500 mg per tablet 1-2 tablet 1-2 tablet, Oral, EVERY 4 HOURS PRN, Starting on Tue01/23/13 at 2323, Until Tue01/24/13 at 2126, Pain, Maximum dose of acetaminophen is 4000 mg from all sources in 24 hours., Routine Given 01/24/2013 10:00 AM EDT 2 tablets Given 01/24/2013 6:35 AM EDT 2 tablets Given 01/24/2013 1:04 AM EDT 2 tablets HYDROmorphone (DILAUDID) 1 mg/mL ORE FEEDER 30 mL Intravenous, ORE FEEDER ONLY, Starting on Tue01/24/13 at 1815, Until 01/27/13 at 0940 New Syringe/Cartridge 01/24/2013 9:35 PM EDT mL/hr HYDROmorphone (DILAUDID) 2 mg/mL injection 1 dose, Starting on Tue01/24/13 at 0339, Until Tue01/24/13 at 0342, CHARLEY RUIZ: cabinet override HYDROmorphone (DILAUDID) injection 0.4 mg 0.4 mg, Intravenous, ONCE, 1 dose, On Tue01/24/13 at 0400, Routine Given 01/24/2013 3:42 AM EDT 0.4 mg HYDROmorphone (DILAUDID) tablet 2-4 mg 2-4 mg, Oral, EVERY 4 HOURS PRN, Starting on 01/27/13 at 1126, Until Tue01/30/13 at 2050, Pain, Routine Given 01/30/2013 5:56 PM EDT 2 mg Given 01/30/2013 1:51 AM EDT 2 mg Given 01/29/2013 6:50 PM EDT 2 mg iohexol (OMNIPAQUE) 350 mg iodine/mL injection 38,500 mg 38,500 mg (110 mL), Intravenous, ONCE PRN, 1 dose, Starting on Tue01/24/13 at 0054, Until Tue01/24/13 at 0054, Per Protocol, Routine Given 01/24/2013 12:54 AM EDT 38,500 mg iohexol (OMNIPAQUE) 350 mg iodine/mL injection 70,000 mg 70,000 mg (200 mL), Intra-arterial, ONCE PRN, 1 dose, Starting on Tue01/24/13 at 1617, Until Tue01/24/13 at 1500, Per Protocol, Angio/IR (Intra-Procedure), Routine Given 01/24/2013 3:00 PM EDT 75 mLs lactated ringers 1,000 mL IV bolus Intravenous, ONCE, 1 dose, On Tue01/24/13 at 2000 Given by Other 01/24/2013 6:45 PM EDT lactated ringers 1,000 mL IV bolus Intravenous, ONCE, 1 dose, On Tue01/24/13 at 2045 Given 01/24/2013 8:45 PM EDT lactated ringers 1,000 mL IV bolus Intravenous, ONCE, 1 dose, On Tue01/24/13 at 2230 Given 01/24/2013 10:30 PM EDT lactated ringers 1,000 mL IV bolus Intravenous, ONCE, 1 dose, On Tue01/25/13 at 0500 Given 01/25/2013 5:00 AM EDT lactated ringers 1,000 mL IV bolus Intravenous, ONCE, 1 dose, On Tue01/25/13 at 0845 Given 01/25/2013 8:20 AM EDT lactated ringers 500 mL IV bolus Intravenous, ONCE, 1 dose, On Tue01/25/13 at 1630 Given 01/25/2013 4:30 PM EDT levothyroxine (SYNTHROID) tablet 50 mcg 50 mcg, Oral, DAILY, First dose on Tue01/24/13 at 0600, Until Discontinued, Routine Given 01/30/2013 6:21 AM EDT 50 mcg Given 01/29/2013 6:06 AM EDT 50 mcg Given 01/28/2013 6:01 AM EDT 50 mcg midazolam (VERSED) 1 mg/mL injection 1 dose, Starting on Tue01/26/13 at 1158, Until Tue01/26/13 at 1200, TOMASA DE JESUS: cabinet override midazolam (VERSED) injection 1 mg 1 mg, Intravenous, ONCE, 1 dose, On Tue01/26/13 at 1215, Max dose 4 mg to be given in divided doses with ALEX, Routine Given 01/26/2013 12:00 PM EDT 1 mg midazolam (VERSED) injection 3 mg 3 mg, Intravenous, ONCE, 1 dose, On Tue01/26/13 at 1315, Already given in divided doses with ALEX, Routine Given 01/26/2013 1:15 PM EDT 3 mg montelukast (SINGULAIR) tablet 10 mg 10 mg, Oral, NIGHTLY, First dose on Tue01/23/13 at 2345, Until Discontinued, Routine Given 01/29/2013 8:27 PM EDT 10 mg Given 01/28/2013 9:27 PM EDT 10 mg Given 01/27/2013 8:26 PM EDT 10 mg NORepinephrine (LEVOPHED) 4 mg/250 mL infusion 1 dose, Starting on Tue01/24/13 at 1550, Until Tue01/24/13 at 1630, AUSTIN BEARD: cabinet override NORepinephrine 16 mcg/mL (standard ADULT & Ree greater than 20kg) infusion 0-30 mcg/min (rounded to 0-112.5 mL/hr), Intravenous, CONTINUOUS, Starting on Tue01/24/13 at 1815, Until Tue01/26/13 at 1151, Titrate to MAP>65, Routine Rate/Dose Verify 01/25/2013 4:00 PM EDT 2 mcg/min 7.5 mL/hr Rate/Dose Change 01/25/2013 3:10 PM EDT 2 mcg/min 7.5 mL/ hr Rate/Dose Verify 01/25/2013 2:00 PM EDT 4 mcg/min 15 mL/h r penicillin G potassium 4 million units in dextrose 5% 100 mL 4 Million Units, Intravenous, EVERY 4 HOURS SCHEDULED, First dose on Tue01/30/13 at 1200, Until Discontinued, Administer over 60 Minutes, Indication for (Active or Suspected): for Bacteremia/Sepsis Given 01/30/2013 4:04 PM EDT 4 Million Units 100 mL/hr Given 01/30/2013 12:14 PM EDT 4 Million Units 100 mL/ hr PHENYLephrine (DUGLAS-SYNEPHRINE) 20 mg in sodium chloride 250 mL infusion 80 mcg/min (rounded to 60 mL/hr), Intravenous, CONTINUOUS, Starting on Tue01/24/13 at 1600, Until Tue01/24/13 at 1949, Angio/IR (Intra-Procedure), Routine New Bag 01/24/2013 3:22 PM EDT 70 mcg/min 52.5 mL/hr New Bag 01/24/2013 2:45 PM EDT 50 mcg/min 37.5 mL/hr New Bag 01/24/2013 2:37 PM EDT 30 mcg/min 22.5 mL/hr PHENYLephrine (DUGLAS-SYNEPHRINE) 20 mg/250 mL infusion PREMIX 1 dose, Starting on Tue01/24/13 at 1435, Until Tue01/24/13 at 1437, JOHN MINER: cabinet override piperacillin-tazobactam (ZOSYN) 3.375 g in dextrose 5% 50 mL 3.375 g, Intravenous, EVERY 8 HOURS, First dose on Tue01/24/13 at 1100, Until Discontinued, Administer over 4 Hours, Indication for (Active or Suspected): for Bacteremia/Sepsis Given 01/26/2013 11:00 AM EDT 3.375 g 12.5 mL/hr Given 01/26/2013 3:00 AM EDT 3.375 g 12.5 mL/hr Given 01/25/2013 7:00 PM EDT 3.375 g 12.5 mL/hr sodium chloride 0.9 % flush 5 mL 5 mL, Intravenous, EVERY 12 HOURS, First dose on Tue01/23/13 at 2345, Until Discontinued Given 01/26/2013 10:49 PM EDT 5 mLs Given 01/26/2013 11:45 AM EDT 5 mLs Given 01/25/2013 11:45 PM EDT 5 mLs sodium chloride 0.9 % flush 5 mL 5 mL, Intravenous, EVERY 12 HOURS, First dose on Tue01/24/13 at 1745, Until Discontinued Given 01/30/2013 5:00 PM EDT 5 mLs Given 01/30/2013 4:59 AM EDT 5 mLs Given 01/29/2013 5:45 PM EDT 5 mLs sodium chloride 0.9% 1,000 mL IV bolus Intravenous, ONCE, 1 dose, On Tue01/24/13 at 1045 Given 01/24/2013 10:40 AM EDT sodium chloride 0.9% 500 mL IV bolus Intravenous, ONCE, 1 dose, On Tue01/26/13 at 0000 Given 01/26/2013 12:00 AM EDT sodium chloride 0.9% 500 mL IV bolus Intravenous, ONCE, 1 dose, On Tue01/26/13 at 0130 Given 01/26/2013 1:04 AM EDT sodium chloride 0.9% infusion 150 mL/hr, Intravenous, CONTINUOUS, Starting on Tue01/23/13 at 2345, Until Tue01/26/13 at 1335 New Bag 01/26/2013 7:53 AM EDT 150 mL/hr 150 mL/hr Rate/Dose Verify 01/25/2013 2:00 PM EDT 10 mL/hr 10 mL/h r Rate/Dose Verify 01/25/2013 12:00 PM EDT 10 mL/hr 10 mL/ hr sodium chloride 0.9% infusion 20 mL/hr, Intravenous, CONTINUOUS, Starting on Tue01/24/13 at 1100, Until Tue01/30/13 at 2050, Hep cap as PRN (if patient wants to ambulate) New Bag 01/29/2013 3:39 AM EDT 20 mL/hr 20 mL/hr New Bag 01/28/2013 1:49 AM EDT 20 mL/hr 20 mL/hr New Bag 01/27/2013 9:40 AM EDT 20 mL/hr 20 mL/hr sodium chloride 0.9% infusion 10 mL/hr, Intravenous, CONTINUOUS, Starting on Tue01/24/13 at 1100, Until Tue01/27/13 at 0940 Rate/Dose Verify 01/25/2013 7:30 AM EDT 10 mL/hr 10 mL/hr New Bag 01/24/2013 9:40 PM EDT 10 mL/hr 10 mL/hr Rate/Dose Verify 01/24/2013 12:00 PM EDT 10 mL/hr 10 mL/ hr sodium chloride 0.9% infusion 10 mL/hr, Intravenous, CONTINUOUS PRN, Starting on Tue01/24/13 at 1750, Until Tue01/30/13 at 2050 Rate/Dose Verify 01/25/2013 6:00 PM EDT 10 mL/hr 10 mL/hr Rate/Dose Verify 01/25/2013 4:00 PM EDT 10 mL/hr 10 mL/h r Rate/Dose Verify 01/25/2013 2:00 PM EDT 10 mL/hr 10 mL/h r vancomycin 1.25 g sodium in chloride 0.9% 250 mL 1,250 mg (1.25 g), Intravenous, at 125 mL/hr, EVERY 12 HOURS, First dose (after last modification) on Tue01/26/13 at 0800, Until Discontinued, This medication may have an associated drug lab level. Please check for lab orders, Routine Given 01/26/2013 8:00 AM EDT 1,250 mg 125 mL/hr vancomycin 750 mg in dextrose 5% 150 mL 750 mg, Intravenous, at 100 mL/hr, EVERY 12 HOURS, First dose (after last modification) on Tue01/24/13 at 1100, Until Discontinued, This medication may have an associated drug lab level. Please check for lab orders, STAT Given 01/25/2013 11:00 PM EDT 750 mg 100 mL/hr Given 01/25/2013 12:30 PM EDT 750 mg 100 mL/hr Given 01/24/2013 11:00 PM EDT 750 mg 100 mL/hr warfarin (COUMADIN) tablet 5 mg 5 mg, Oral, ONCE, 1 dose, On 01/27/13 at 1700, Routine Given 01/27/2013 5:14 PM EDT 5 mg warfarin (COUMADIN) tablet 5 mg 5 mg, Oral, ONCE, 1 dose, On 01/29/13 at 1700, Routine Given 01/29/2013 5:00 PM EDT 5 mg warfarin (COUMADIN) tablet 7.5 mg 7.5 mg, Oral, ONCE, 1 dose, On 01/28/13 at 1700, Routine Given 01/28/2013 4:59 PM EDT 7.5 mg warfarin (COUMADIN) tablet 7.5 mg 7.5 mg, Oral, ONCE, 1 dose, On Tue01/30/13 at 1700, Routine Given 01/30/2013 4:07 PM EDT 7.5 mg documented in this encounter Active and Recently Administered Medications Times are shown in EDT. Scheduled Medication Order 01/28/2013 01/29/2013 01/30/2013 ampicillin-sulbactam (UNASYN) 1.5 g vial attach to sodium chloride 0.9% 50 mL Mini-Bag Plus (CANCELED) 1.5 g, Intravenous, EVERY 6 HOURS SCHEDULED, First dose on Tue01/26/13 at 1400, Until Discontinued, Administer over 30 Minutes, Indication for (Active or Suspected): for GI/Intra-abdominal 0027 (Given - Provider: Paola Lou RN)0601 (Given - Provider: Paola Lou RN)1136 (Given - Provider: Belén Miguel RN)1756 (Given - Provider: Jelani Alves) 0006 (Given - Provider: Becky Hairston RN)0606 (Given - Provider: Becky Hairston RN)1200 (Given - Provider: Nohemi Preston RN)1800 (Given - Provider: Nohemi Preston RN)2339 (Given - Provider: Nancy Hardin RN) 0605 (Given - Provider: Nancy Hardin RN) chlorhexidine (PERIDEX) 0.12 % oral solution 15 mL (CANCELED) 15 mL, Oral, EVERY 12 HOURS SCHEDULED (2 times per day), First dose on Tue01/24/13 at 2100, Until Discontinued, To brush teeth, Routine 0816 (Not Given - Provider: Belén Miguel RN - Reason: Patient/family refused)2127 (Given - Provider: Becky Hairston RN) 0900 (Not Given - Provider: Nohemi Preston RN - Reason: See comment - Comment: not needed)2025 (Not Given - Provider: Nancy Hardin RN - Reason: Patient/family refused) 0846 (Not Given - Provider: Pauline Alberto RN - Reason: Patient/family refused) ciprofloxacin (CIPRO) tablet 500 mg (CANCELED) 500 mg, Oral, 2 TIMES DAILY, First dose on Tue01/30/13 at 1100, Until Discontinued, Routine, Indication for (Active or Suspected): for Bacteremia/Sepsis 1213 (Given - Provider: Pauline Alberto RN - Comment: given when available from pharmacy) docusate sodium (COLACE) capsule 100 mg (CANCELED) 100 mg, Oral, 2 TIMES DAILY, First dose on Tue01/23/13 at 2345, Until Discontinued, Routine 816 (Given - Provider: Belén Miguel RN)2126 (Given - Provider: Becky Hairston RN) 899 (Given - Provider: Nohemi Preston RN)2026 (Given - Provider: Nancy Hardin RN) 08 (Given - Provider: Pauline Alberto RN) esomeprazole (NEXIUM) capsule 40 mg (CANCELED) 40 mg, Oral, EVERY 12 HOURS SCHEDULED (2 times per day), First dose (after last modification) on Tue01/26/13 at 2300, Until Discontinued, Oral route preferred, Routine 816 (Given - Provider: Belén Miguel RN)2126 (Given - Provider: Becky Hairston RN) 899 (Given - Provider: Nohemi Preston RN)2026 (Given - Provider: Nancy Hardin RN) 0846 (Given - Provider: Pauline Alberto RN) fluticasone-salmeterol (ADVAIR) 100-50 mcg/dose diskus inhaler 1 puff (CANCELED) 1 puff, Inhalation, EVERY 12 HOURS, First dose on Tue01/23/13 at 2345, Until Discontinued, Rinse mouth after administration, Routine 0818 (Given - Provider: Belén Miguel RN)2126 (Given - Provider: Becky Hairston RN) 09 (Given - Provider: Nohemi Preston RN)2026 (Given - Provider: Nancy Hardin RN) 0846 (Given - Provider: Pauline Alberto RN) levothyroxine (SYNTHROID) tablet 50 mcg (CANCELED) 50 mcg, Oral, DAILY, First dose on Tue01/24/13 at 0600, Until Discontinued, Routine 0601 (Given - Provider: Paola Lou RN) 0606 (Given - Provider: Becky Hairston RN) 0621 (Given - Provider: Nancy Hardin RN) montelukast (SINGULAIR) tablet 10 mg (CANCELED) 10 mg, Oral, NIGHTLY, First dose on Tue01/23/13 at 2345, Until Discontinued, Routine 2126 (Given - Provider: Becky Hairston RN) 2026 (Given - Provider: Nancy Hardin RN) penicillin G potassium 4 million units in dextrose 5% 100 mL (CANCELED) 4 Million Units, Intravenous, EVERY 4 HOURS SCHEDULED, First dose on Tue01/30/13 at 1200, Until Discontinued, Administer over 60 Minutes, Indication for (Active or Suspected): for Bacteremia/Sepsis 1214 (Given - Provider: Pauline Alberto RN)1604 (Given - Provider: Pauline Alberto RN) sodium chloride 0.9 % flush 5 mL (CANCELED) 5 mL, Intravenous, EVERY 12 HOURS, First dose on Tue01/24/13 at 1745, Until Discontinued 0601 (Given - Provider: Paola Lou RN)1659 (Not Given - Provider: Belén Miguel RN - Reason: See comment - Comment: IVF infusing) 0545 (Given - Provider: Becky Hairston RN)1745 (Given - Provider: Nohemi Preston RN) 0459 (Given - Provider: Nancy Hardin RN)1700 (Given - Provider: Pauline Alberto RN) warfarin (COUMADIN) tablet 5 mg (COMPLETED) 5 mg, Oral, ONCE, 1 dose, On Tue01/29/13 at 1700, Routine 1700 (Given - Provider: Nohemi Preston RN) warfarin (COUMADIN) tablet 7.5 mg (COMPLETED) 7.5 mg, Oral, ONCE, 1 dose, On Tue01/28/13 at 1700, Routine 1659 (Given - Provider: Belén Miguel RN) warfarin (COUMADIN) tablet 7.5 mg (COMPLETED) 7.5 mg, Oral, ONCE, 1 dose, On Tue01/30/13 at 1700, Routine 1607 (Given - Provider: Pauline Alberto, LANIE) Continuous Medication Order 01/28/2013 01/29/2013 01/30/2013 sodium chloride 0.9% infusion (CANCELED) 20 mL/hr, Intravenous, CONTINUOUS, Starting on Tue01/24/13 at 1100, Until Tue01/30/13 at 2050, Hep cap as PRN (if patient wants to ambulate) 0149 (New Bag - Provider: Paola Lou RN) 0339 (New Bag - Provider: Yennifer Olguin RN) PRN Medication Order 01/28/2013 01/29/2013 01/30/2013 acetaminophen (TYLENOL) tablet 1,000 mg 1,000 mg, Oral, EVERY 6 HOURS PRN, Starting on Tue01/27/13 at 1126, Until Tue01/30/13 at 2050, Pain, Maximum dose of acetaminophen is 4000 mg from all sources in 24 hours., Routine 0214 (Given - Provider: Paola Lou RN) 0852 (Given - Provider: Pauline Alberto RN - Comment: prevention) HYDROmorphone (DILAUDID) tablet 2-4 mg 2-4 mg, Oral, EVERY 4 HOURS PRN, Starting on Tue01/27/13 at 1126, Until Tue01/30/13 at 2050, Pain, Routine 0605 (Given - Provider: Paola Lou RN) 0009 (Given - Provider: Becky Hairston RN)0624 (Given - Provider: Becky Hairston RN)1850 (Given - Provider: Maritza Green RN) 0151 (Given - Provider: Nancy Hardin RN)1756 (Given - Provider: Pauline Alberto RN) documented in this encounter Care Teams Debarker Operator Relationship Specialty Start Date End Date Farnaz Patel MD [address] [place] [address] PCP - General 10/26/12 documented as of this encounter
--- OUTSIDE RECORDS SUMMARY | 2024-04-20 15:08 | XMS_ITS | Encounter Summary ---
Author Organization [facility] [place] [address] Care Team Providers Care Nurse Assistant Name Role Phone Farnaz Pineda MD Primary Care Provider [phone] Encounter Details Date Type Department Care Team (Late st Contact Info) Description 12/06/2012 [place] [phone] Fred Malagon MD [facility] [place] [address] Social History Tobacco Use Types Packs/Day Years [...] encounter Miscellaneous Notes * Telephone Encounter - Fred Malagon - 12/06/2012 8:39 AM EST The patient's called concerning ongoing intermittent hematuria. Mr. 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 He is on coumadin for an aortic valve. Hiscatheter has remained in place as last follow up a cystogram revealed the anastomosis had not healed. He is not having increasing pain or distension. His catheter continues to drain well. After an episode of dark urine yesterday, his urine has cleared up. He has no fevers/chills. Discussed that this could be ongoing irritation from the catheter or a small scab that has broken off. It is impossible to tell if the anastomosis has healed without a cystogram. He has an appointment on 12/08 for a cystogram and possible voiding trial. In the absence of worrying symptoms and as long as the catheter is draining and urine is clearing, we will not need to see him sooner than 12/08. He will continue to take it easy pending follow up. They will call with any of the above issues or other concerns. documented in this encounter Plan of Treatment Not on file documented as of this encounter Visit Diagnoses Not on filedocumented in this encounter Care Teams Nurse Assistant Relationship Specialty Start Date End Date Farnaz Pineda MD [address] [place] [address] PCP - General 10/26/12 documented as of this encounter
--- OUTSIDE RECORDS SUMMARY | 2024-04-20 15:08 | XMS_ITS | Encounter Summary ---
Author Organization [facility]ly [facility] [place] [address] Care Team Providers Care Java Engineer Name Role Phone Farnaz Pineda MD Primary Care Provider [phone] Encounter Details Date Type Department Care Team (Late st Contact Info) Description 12/27/2012 5:16 PM EDT Anesthesia Event [place] [phone] Rosa Escalante MD [facility] [place] [address] Jenny Kaur MD [facility] [place] [address] Anesthesia Record Procedure Summary Procedure Name Responsible Anesthesiologist Anesthesia Start Time Anesthesia Stop Time CYSTO, IRRIGATION & EVACUATION OF CLOTS (WRVU 5.44) (Bladder) Rosa Escalante MD 12/27/12 1716 12/27/12 1812 Events Date Time Event Comment 12/27/2012 1716 Start 1812 Stop Meds * Agents No agents on file. * Blood No blood administrations on file. Lines, Drains, and Airways Type Details Placement Removal Urethral Catheter 11/20/12; 0755; indwelling double lumen catheter; 100% silicone; 16; inserted; 1; drainage bag to dependent drainage; 12/27/12; 1740 11/20/12 0755 by Erin Cervantes RN 12/27/12 1740 by Agnieszka Douglas RN Incision 11/20/12; 0800; abdomen (Trocar sites x 6); 06/07/22 (LDA cleanup utility RA#[id number]); 1715 (LDA cleanup utility RA#[id number]) 11/20/12 0800 by Erin Cervantes RN 06/07/22 1715 by Andrea Choi (RETIRED) Peripheral IV Line - Single Lumen 12/27/12; 1549; 12/28/12; 1645 12/27/12 1549 by Aretha Gaston RN 12/28/12 1645 by Jessica Jaramillo RN Urethral Catheter 12/27/12; 1755; indwelling triple lumen catheter; 100% silicone; 22; inserted; 1; drainage bag to dependent drainage; 12/28/12; 1330 (by MD Espinoza) 12/27/12 1755 by Agnieszka Douglas RN 12/28/12 1330 by Jessica Jaramillo RN documented in this encounter Social History Tobacco Use Types Packs/Day Years [...] on file documented as of this encounter OR Notes * Anesthesia Postprocedure Evaluation - Rosa Escalante MD - 12/27/2012 9:09 PM EDT Patient: Sylvain Rodgers Procedure(s) Performed: Procedure(s): CYSTO, IRRIGATION & EVACUATION OF CLOTS Patient location: PACU Post-op pain: Adequate analgesia Post-op nausea: no nausea or vomiting Last Vitals: Filed Vitals: 12/27/12 2040 BP: 111/68 Pulse: 99 Temp: 36.9 ??C (98.4 ??F) Resp: 17 Post-op cardiovascular and respiratory status: is stable Level of consciousness: awake, alert and oriented Complications: no apparent complications, tolerated the procedure well and no evidence of recall Fluid Status: normal * Anesthesia Preprocedure Evaluation - VincentJenny Esperanza - 12/27/2012 4:15 PM EDT Images from the original note were not included. Today I evaluated Sylvain Rodgers a 62 y.o. male. Procedure(s): @LAPAROSCOPIC PROSTATECTOMY, ROBOTICS ASSISTED LAPAROSCOPY,WITH BILATERAL TOTAL PELVIC LYMPHADENECTOMY, ROBOTIC Patient Active Problem List Diagnoses ??? S/P prostatectomy ??? Prostate cancer No past medical history on file. Past Surgical History Procedure Date ??? Lap, prostatectomy, radical, w/nerve spare 11/20/2012 @LAPAROSCOPIC PROSTATECTOMY, ROBOTICS ASSISTED performed by Ross Madrid MD at [facility] MAIN OR ??? Lap, pelvic lymphadenectomy 11/20/2012 LAPAROSCOPY,WITH BILATERAL TOTAL PELVIC LYMPHADENECTOMY, ROBOTIC performed by Ross Madrid MD at [facility] MAIN OR History Substance Use Topics ??? Smoking status: Former Smoker -- 1.0 packs/day for 1 years Types: Cigarettes Quit date: 11/02/1986 ??? Smokeless tobacco: Never Used ??? Alcohol Use: Yes 2 gin and tonic per night No Known Allergies Medications: MAR and/or home medications have been reviewed. ECG Review 11/02/12 ECG: NSR, nonspecific T wave abnormality. Unable to obtain previous ECG. No signs of acute ischemia. No further testing needed. Physical Exam: There were no vitals filed for this visit. There is no height or weight on file to calculate BMI. 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 NPO status: pending Prev anesthesia: Grade 3 view with MAC 4 blade - bougie needed. Anesthetic Plan: GA LMA vs. ETT. Informed Consent: Anesthetic plan and risks discussed with patient. Plan discussed with attending. [facility] Assessment: documented in this encounter Miscellaneous Notes * Addendum Note - Fela Real - 12/28/2012 11:38 AM EDT Addendum created 12/28/12 1138 by Fela Real Modules edited:Anesthesia Events, Anesthesia Responsible Staff, SmartForms SmartFormsVN Section for SmartForms 266 documented in this encounter Plan of Treatment Not on file documented as of this encounter Visit Diagnoses Not on filedocumented in this encounter Care Teams Java Engineer Relationship Specialty Start Date End Date Farnaz Pineda MD [address] [place] [address] PCP - General 10/26/12 documented as of this encounter
--- OUTSIDE RECORDS SUMMARY | 2024-04-20 15:08 | XMS_ITS | Encounter Summary ---
Author Organization Formerly [facility] [place] [address] Care Team Providers Care Reel Assembler Name Role Phone Cameron Pineda MD Primary Care Provider [phone] Reason for Visit * Reason Comments Hematuria Encounter Details Date Type Department Care Team (Late st Contact Info) Description 12/27/2012 4:09 PM EDT - 12/28/2012 4:49 PM EDT Emergency [facility] [place] [phone] Presley Madrid MD [facility] [place] [address] S/P prostatectomy (Primary Dx) Discharge Disposition: Home Social History [...] Sign Reading Time Taken Comments Blood Pressure 108/59 12/28/2012 8:15 AM EDT Pulse 84 12/28/2012 8:15 AM EDT Temperature 36.8 ??C (98.2 ??F) 12/28/2012 8:15 AM ED T Respiratory Rate 16 12/28/2012 8:15 AM EDT Oxygen Saturation 97% 12/28/2012 8:15 AM EDT Inhaled Oxygen Concentration - - Weight 100.7 kg (222 lb) 12/27/2012 2:41 PM EDT Height 172.7 cm (5' 8) 12/27/2012 9:20 PM EDT Body Mass Index 33.75 12/27/2012 2:41 PM [...] may be used if needed and are sbnj-eno-cqthdrt (OTC) medications available at most local pharmacies. Prunes or prune juice, taken daily, can also be helpful for constipation treatment or p revention and are available at most [employer]. Driving Restrictions*: - No driving if you [...] timely manner. Your surgeon may not be Aircraft Systems Technician, especially during the night or on weekends, [...] 10:31 AM EDT Office of Care Management(OCM)/Clinical Equipment Maintenance Tech(CRC) Discharge Planning CRC Service: Urology CRC :Belen Woods,RN,BS pager [phone] Covering CRC: Kylee Storey RN,BSN,MA pager [phone] O:Record reviewed and patient discussed with multidisciplinary [...] this encounter H&P Notes * Juanjo Galarza - 12/27/2012 4:06 PM EDT Urology H&P [...] severe lower abdominal pains. He presented to [facility] and a Womack was inserted, returning bloody urine. His symptoms were relieved. Old clots were noted in the urine. He was transferred to [facility] for further management. PMH: Hypothyroidism Astma PSH: [...] is s/p RALRP with Dr. Madrid for Shasha 3+4 Adenocarcinoma with a minor Shasha 5 [...] with severe lower abdominal pains. He presented [facility] and a Womack was inserted, returning bloody urine. His symptoms were relieved. Old clots were noted in the urine. He was transferred to [facility] for further management. He underwent cysto clot [...] that part of your care. Urology - [phone] Scheduled Appointments: The following appointments have been scheduled on your behalf: Future Appointments and Orders Future Appointments: Provider: Department: Dept Phone: Center: 01/04/2013 1:40 PM Presley Madrid MD Urology [phone] [facility] 03/13/2013 10:30 AM Presley Madrid MD Urology [phone] [facility] Joint Appt Questionnaire Five [facility] Urology Urology [phone] [facility] Future Orders Please Complete By Expires CBC (with Diff) [[id number] Custom] 01/04/13 12/28/13 Process Instructions: INCLUDES: WBC, [...] may be used if needed and are ndwr-zcs-bafvhfa (OTC) medications available at most local pharmacies. Prunes or prune juice, taken daily, can also be helpful for constipation treatment or p revention and are available at most [employer]. Driving Restrictions*: - No driving if you [...] timely manner. Your surgeon may not be Aircraft Systems Technician, especially during the night or on weekends, so be ready to describe yourself and your surgery when you call. Future Appointments and Orders Future Appointments: Provider: Department: Dept Phone: Center: 01/04/2013 1:40 PM Presley Madrid MD Urology [phone] [facility] 03/13/2013 10:30 AM Presley Madrid MD Urology [phone] [facility] Joint Appt Questionnaire Five B Urology Urology [phone] [facility] Future Orders Please Complete By Expires CBC (with Diff) [[id number] Custom] 01/04/13 12/28/13 Process Instructions: INCLUDES: WBC, [...] was managed by the Urology Team at [facility]. If you have any questions or concerns, please feel free to contact us. Provider Contact Information: Urology Clinic: [facility] (after business hours): CC: CAMERON PINEDA MD [...] Juanjo Galarza - 12/27/2012 6:12 PM EDT [facility] Operative Note Patient Name: Dillan Al : [id number] MR#: [id number] Case Date: 12/27/2012 Surgeon: Surgeon(s) and Role: [...] of the case, we placed a 20 Sami 3-way catheter in the bladder to continuous [...] Operative Note Patient Name: Dillan Al : [id number] MR#: [id number] Case Date: 12/27/2012 Surgeon: Surgeon(s) and Role: [...] Operative Note Patient Name: Dillan Al : [id number] MR#: [id number] Case Date: 12/27/2012 Surgeon: Surgeon(s) and Role: [...] for him to get a catheter at [facility] prior to coming down today. He has [...] 12/27/2012 3:50 PM EDT TYPE AND SCREEN ([facility]P/CONSTANTINE) STAT 12/27/2012 3:50 PM EDT BUN STAT [...] Lab Presley Madrid MD HEMATOLOGY ORDERABLE S CERDAKSHA HARTMANENNIUM * CYSTO,IRRIGATION & EVACUATION OF CLOTS (01/18/2013 [...] Text Report Department: Vascular Surgery Lab Patient: [id number] (DILLAN AL) CPT Code: 91313 ICD-9: 782.3 Referring Physician: PRESLEY MADRID Indication: [...] Presley Madrid MD HEMATOLOGY ORDERABLE S CERDAKSHA HARTMANENNIUM * Scan, Peripheral Blood (12/28/2012 4:30 AM EDT) Plat Estimate Increased CERNER MILLENNIUM RBC Morphology Abnormal CERNE R MILLENNIUM Macrocytes 1-5 /HPF CERNER MILLENNIUM Microcytes 1-5 /HPF CERNER MILLENNIUM Polychromasia Present >5/HPF CERNER MILLENNIUM Blood specimen (specimen) 12/28/2012 4:30 AM EDT 12/28/2012 4:43 AM EDT Narrative Resulting Agency Comment Spec In Lab Presley Madrid MD HEMATOLOGY ORDERABLE S CERDAKSHA HARTMANENNIUM * (ABNORMAL) CBC (with Diff) (12/28/2012 4:30 [...] S CERNER MILLENNIUM * Scan, Peripheral Blood (12/27/2012 3:50 PM [...] EDT Gricelda Tolbert MD HEMATOLOGY ORDERABLE S DANETTE PRIDEIUM * Antibody screen (12/27/2012 3:50 PM EDT) Ab Screen Interp Negative CERDAKSHA HARTMNAENNIUM Expires at 2359 on: [id number] CERNER MILLENNIUM Blood specimen (specimen) 12/27/2012 3:50 PM EDT 12/27/2012 4:05 PM EDT Narrative Resulting Agency Comment Spec In Lab Gricelda Tolbert MD BLOOD BANK LAB ORDER JAMES DANETTE PRIDEIUM * ABO/Rh Typing (12/27/2012 3:50 PM EDT) ABORH Type A Pos CERNER MILLENNIUM Blood specimen (specimen) 12/27/2012 3:50 PM EDT 12/27/2012 4:05 PM EDT Narrative Resulting Agency Comment Spec In Lab Gricelda Tolbert MD BLOOD BANK LAB ORDER JAMES Performing Organization Address [facility] de Phone Number [facility] SlatedNONA * (ABNORMAL) APTT (12/27/2012 3:50 PM EDT) PTT 38(H) 25 - 35 sec [facility] MILLENNIUM Comment: Recommended therapeutic PTT range for full dose unfractionated heparin is 80-114 seconds. Blood specimen (specimen) 12/27/2012 3:50 PM EDT 12/27/2012 4:04 PM EDT Narrative Resulting Agency Comment Spec In Lab Gricelda Tolbert MD HEMATOLOGY ORDERABLE S Performing Organization Address [facility] Phone Number DANETTE [facility] Coffee [facility] Tea RoomDEX * (ABNORMAL) Prothrombin Time (12/27/2012 3:50 PM EDT) PT 16.3(H) 12.0 - 15.0 sec [facility] Comment: [facility] Transfusion Committee Guidelines: INR less than 2.0, PTT less than OR equal to 43.5 seconds, or Fibrinogen greater than or equal to 100 mg/dl indicate adequate procoagulant activity for hemostasis in patients without underlying bleeding disorders. INR 1.3(H) 0.9 - 1.1 [facility] Iris's Coffee and Tea RoomENNIUM Blood specimen (specimen) 12/27/2012 3:50 PM EDT 12/27/2012 4:04 PM EDT Narrative Resulting Agency Comment Spec In Lab Gricelda Tolbert MD HEMATOLOGY ORDERABLE S Performing Organization Address [facility] de Phone Number [facility] Tea RoomDEX * Glucose, random (12/27/2012 3:50 PM EDT) Glucose Lvl 91 60 - 199 mg/dL [facility] SlatedIUM Comment:Diabetes: >=200 mg/d L plus symptoms Blood specimen (specimen) 12/27/2012 3:50 PM EDT 12/27/2012 4:04 PM EDT Narrative Resulting Agency Comment Spec In Lab Gricelda Tolbert MD CHEMISTRY ORDERABLES DANETTE VALENCIA * Creatinine (12/27/2012 3:50 PM EDT) [facility] Signature Creatinine 1.22 0.80 - 1.50 mg/dL DANETTE VALENCIA Comment: Please note that the pediatric reference intervals supplied above were not validated at [facility]. Results from pediatric patients should be interpreted [...] Tolbert MD CHEMISTRY ORDERABLES Performing Organization Address [facility] Co de Phone Number CERNER MILLENNIUM * BUN (12/27/2012 3:50 PM EDT) BUN 20 10 - 20 mg/dL CERNER MILLENNIUM Blood specimen (specimen) 12/27/2012 3:50 PM EDT 12/27/2012 4:04 PM EDT Narrative Resulting Agency Comment Spec In Lab Gricelda Tolbert MD CHEMISTRY ORDERABLES Performing Organization Address [facility] de Phone Number CERNER MILLENNIUM * Electrolytes [...] Tolbert MD CHEMISTRY ORDERABLES Performing Organization Address [facility]/ZIP Co de Phone Number CERDAKSHA HARTMANENNIUM * (ABNORMAL) CBC (with Diff) (12/27/2012 3:50 [...] in this encounter Visit Diagnoses Diagnosis S/P prostatectomy- Primary Other postprocedural status Hematuria- Primary Hematuria, unspecified documented in this encounter Administered [...] Oral, DAILY WITH BREAKFAST, First dose on Emma 3/21/13 at 0800, Until Discontinued, OK to use on formulary equivalent 0800 (Given - Provid er: Jessica Jaramillo, LANIE) fluticasone-salmeterol (ADVAIR) 100-50 mcg/dose diskus inhaler 1 puff (CANCELED) 1 puff, Inhalation, EVERY 12 HOURS, First dose on Tue12/27/12 at 2100, Until Discontinued, Rinse mouth after administration. OK to use on formulary equivalent, Routine 2100 (Given - Provider: Heladio Ovalle RN) 0900 (Given - Provider: Jessica Jaramillo RN) levothyroxine (SYNTHROID) tablet 50 mcg (CANCELED) [...] Routine 1814 (Given - Provider: Nila Terrazas, LANIE)1824 (Given - Provider: Nila Terrazas, LANIE)184 (Given - Provider: Nila Terrazas, LANIE) OXYcodone (ROXICODONE) immediate release tablet 5 mg (CANCELED) 5 mg, Oral, EVERY 4 HOURS PRN, Starting on Tue12/27/12 at 2054, Until Emma 12/28/12 at 1855, Pain, Routine 2115 (Given - Provider: Heladio Ovalle RN) 0523 (Given - Provider: Heladio Ovalle RN)1310 (Given - Provider: Jessica Jaramillo, LANIE)1645 (Given - Provider: Jessica Jaramillo, LANIE - Comment: per MD for d/c to home) documented in this encounter Care Teams Reel Assembler Relationship Specialty Start Date End Date Cameron Pineda MD [address] [place] [address] PCP - General 10/26/12 documented as of this encounter
--- OUTSIDE RECORDS SUMMARY | 2024-04-20 15:08 | XMS_ITS | Encounter Summary ---
Author Organization [facility] [place] [address] Care Team Providers Care Supervisor Pastry Name Role Phone Farnaz Pineda MD Primary Care Provider [phone] Reason for Visit * Reason Comments Follow-up Encounter Details Date Type Department Care Team (Late st Contact Info) Description 01/22/2013 3:20 PM EDT [place] [phone] Ross Madrid MD [facility] [place] [address] Prostate cancer (Primary Dx) Discharge Disposition: Home [...] Sign Reading Time Taken Comments Blood Pressure 126/72 01/22/2013 3:18 PM EDT Pulse 99 01/22/2013 3:18 PM EDT Temperature - - Respiratory Rate - - Oxygen Saturation - - Inhaled Oxygen Concentration - - Weight 97.5 kg (215 lb) 01/22/2013 3:18 PM EDT Height 172.7 cm (5' 8) 01/22/2013 3:18 PM EDT Body Mass Index 32.69 01/22/2013 3:18 PM EDT documented in this encounter Progress Notes * Ross Madrid MD - 01/23/2013 7:19 AM EDT 62M h/o metal aortic valve replacement on coumadin, s/p RALRP/PLND on 11/20/12 for high risk prostate cancer. Surgery uncomplicated, however developed postoperative pelvic hematoma w/ distraction of anastamosis. Urinary catheter left in place and ultimately removed. Mr. Rodgers has had intermittent gross hematuria during follow-up, requiring clot evacuation 12/27/12. His INR has been as high as 4.9 last week, advised more stringent control. Also he developed LLE DVT despite anticoagulation, leadingto IVC filter placement 01/04/13. Returns today with several days of gross hematuria and bilateral hip pain. Feels relatively strong.Mild intermittent dizziness but not consistent. Cystoscopy last week showed healed anastamosis circumferentially without clot in bladder. Exam: S NTND Incisions well healed Stable LLE edema Tenderness to deep palpation on iliac crest bilaterally Labs: INR 2.6 Hgb 7.6 (7.1 on 01/04/13) Bladder scan 50cc Plan: - Hold coumadin given ongoing gross hematuria; have previously discussed with CT surgeons and this can be safely held up to one week if needed given mature aortic valve; given ongoing hematuria this seems prudent for a 3-5 day period - Repeat labs in 2-3 days for stability - Hip pain appears musculoskeletal based on being elicited with bony pressure bilaterally, advise rest and pain control prn documented in this encounter Plan of Treatment Not on file documented as of this encounter Procedures Procedure Name Priority Date/Time Associated Diagnosis Comments DIFFERENTIAL, AUTOMATED STAT 01/22/2013 3:52 PM EDT APTT STAT 01/22/2013 3:52 PM EDT Prostate cancer PROTHROMBIN TIME STAT 01/22/2013 3:52 PM EDT Prostate cancer CBC (WITH DIFF) STAT 01/22/2013 3:52 PM EDT Prostate cancer documented in this encounter Results * (ABNORMAL) Differential, Automated (01/22/2013 3:52 PM EDT) Neutrophils % 71.0 34.0 - 71.0 % CERNER MILLENNIUM Neutr Abs (ANC) 7.18(H) 1.50 - 6.30 x10(3)/mc L CERNER MILLENNIUM Lymphocytes % 11.7(L) 19.0 - 53.0 % CERNER MILLENNIUM Lymphocytes Abs 1.2 1.0 - 3.6 x10(3)/mc L CERNER MILLENNIUM Monocytes % 11.5 4.0 - 13.0 % CERNER MILLENNIUM Monocyte Abs 1.2(H) 0.2 - 1.0 x10(3)/mc L CERNER MILLENNIUM Eosinophils % 4.6 0.0 - 7.0 % CERNER MILLENNIUM Eosinophils [...] x10(3)/mc L CERNER MILLENNIUM Blood specimen (specimen) 01/22/2013 3:52 PM EDT 01/22/2013 4:00 PM EDT Ross Madrid MD HEMATOLOGY ORDERABLE S CERNER MILLENNIUM * (ABNORMAL) APTT (01/22/2013 3:52 PM EDT) PTT 56(H) 25 - 35 sec CERNER MILLENNIUM Comment: Recommended therapeutic PTT range for full dose unfractionated heparin is 80-114 seconds. Blood specimen (specimen) 01/22/2013 3:52 PM EDT 01/22/2013 4:00 PM EDT Narrative Resulting Agency Comment Spec In Lab Ross Madrid MD HEMATOLOGY ORDERABLE S Performing Organization Address [facility] Co de Phone Number DANETTE PRIDEIUM * (ABNORMAL) Prothrombin Time (01/22/2013 3:52 PM EDT) PT 28.3(H) 12.0 - 15.0 sec CERNER MILLENNIUM Comment: [facility] Transfusion Committee Guidelines: INR less than 2.0, PTT less than OR equal to 43.5 seconds, or Fibrinogen greater than or equal to 100 mg/dl indicate adequate procoagulant activity for hemostasis in patients without underlying bleeding disorders. INR 2.6(H) 0.9 - 1.1 YAKOVDAKSHA MILLENNIUM Blood specimen (specimen) 01/22/2013 3:52 PM EDT 01/22/2013 4:00 PM EDT Narrative Resulting Agency Comment Spec In Lab Ross Madrid MD HEMATOLOGY ORDERABLE S Performing Organization Address [facility] Co de Phone Number DANETTE PRIDEIUM * (ABNORMAL) CBC (with Diff) (01/22/2013 3:52 PM EDT) WBC 10.1(H) 4.0 - 10.0 x10(3)/mcL CERNER MILLENNIUM RBC 2.91(L) 4.63 - 6.08 x10(6)/mcL CERNER MILLENNIUM Hemoglobin 7.6(L) 13.7 - 17.5 gm/dL CERNER MILLENNIUM Hematocrit 26.8(L) 40.0 - 51.0 % CERNER MILLENNIUM MCV 92.1(H) 79.0 - 92.0 fL CERNER MILLENNIUM MCH 26.1 25.6 - 32.2 pg CERNER MILLENNIUM MCHC 28.4(L) 32.0 - 36.5 gm/dL CERNER MILLENNIUM Comment:Matches Previous Res ults Platelets 322 145 - 370 x10(3)/mcL CERNER MILLENNIUM RDWSD 68.7(H) 35.0 - 46.0 fL CERNER MILLENNIUM RDWCV 20.3(H) 10.9 - 14.4 % CERNER MILLENNIUM MPV 9.2 9.0 - 12.0 fL CERNER MILLENNIUM Blood specimen (specimen) 01/22/2013 3:52 PM EDT 01/22/2013 4:00 PM EDT Narrative Resulting Agency Comment Spec In Lab Ross Madrid MD HEMATOLOGY ORDERABLE S DANETTE VALENCIA documented in this encounter Visit Diagnoses Diagnosis Prostate cancer- Primary Malignant neoplasm of prostate documented in this encounter Care Teams Supervisor Pastry Relationship Specialty Start Date End Date Farnaz Pineda MD [address] [place] [address] PCP - General 10/26/12 documented as of this encounter
--- OUTSIDE RECORDS SUMMARY | 2024-04-20 15:08 | XMS_ITS | Encounter Summary ---
Author Organization [facility] [place] [address] Care Team Providers Care Physical Plant Employee Name Role Phone Farnaz Pineda MD Primary Care Provider [phone] Reason for Visit * Reason Comments Hematuria Encounter Details Date Type Department Care Team (Latest Contact Info) Description 12/21/2012 12:00 PM EDT Procedure [place] [phone] Ross Madrid MD [facility] [address] Hematuria (Primary Dx) Discharge Disposition: Home Social [...] Sign Reading Time Taken Comments Blood Pressure 114/72 12/21/2012 12:01 PM EDT Pulse 100 12/21/2012 12:01 PM EDT Temperature - - Respiratory Rate - - Oxygen Saturation - - Inhaled Oxygen Concentration - - Weight - - Height - - Body Mass Index - - documented in this encounter Patient Instructions * Patient Instructions* Sri Jones LPN - 12/21/2012 2:19 PM EDT Follow up on Tuesday (12/26) for voiding trial with the nurses. Please take the Keflex as instructed by Dr. Madrid. documented in this encounter Progress Notes * Ross Madrid MD - 12/21/2012 4:16 PM EDT Mr. Rodgers is s/p RALRP/PLND on 11/20/12. He presents with recurrent gross hematuria. He is on coumadin for a metal aortic valve. His recent INR was 2.8. Of note, he was recently started on ciprofloxacin for concern for UTI based on hematuria and urinalysis. I asked him to stop this therapy today because of interaction w/ coumadin. He was recently in the ER and required womack catheter placement forurinary retention and clots. The catheter passed easily by report. Today, he is well appearing and not in distress. His womack bag has old dark urine. I attempted to irrigate his catheter and it would not irrigate easily (16fr). I sterilely placed a multi-eye catheter and irrigated copiously for extensive clot burden. When no additional clot was aspirated, I placeda 20fr 2- way womack and left it to drainage. He walked around for about 1 hour drinking water, and returned with continued womack drainage that was light tinged without additional clots. I gave him 3 days of keflex to start today. We will have him return next week for a voiding trial. He will continue coumadin and follow up thisweek for a repeat INR. He will alert me if he encounters difficulty with the catheter over the weekend. 16 of 17 minutes spent in counseling and coordination of care documented in this encounter Plan of Treatment Scheduled Orders Name Type Priority Associated Diagnoses Orde r Schedule Cystoscopy PROCEDURE Routine Hematuria Ordered: 12/21/2012 documented as of this encounter Visit Diagnoses Diagnosis Hematuria- Primary Hematuria, unspecified documented in this encounter Care Teams Physical Plant Employee Relationship Specialty Start Date End Date Farnaz Pineda MD [address] [place] [address] PCP - General 10/26/12 documented as of this encounter
--- OUTSIDE RECORDS SUMMARY | 2024-04-20 15:08 | XMS_ITS | Encounter Summary ---
Author Organization [facility] [address] Care Team Providers Care Cuff Slitter Name Role Phone Farnaz Pineda MD Primary Care Provider [phone] Encounter Details Date Type Department Care Team (Latest Contact Info) Description 01/18/2013 1:40 PM EDT [place] [phone] Ross Madrid MD [facility] [place] [address] Hematuria (Primary Dx) Discharge Disposition: Home Social [...] Sign Reading Time Taken Comments Blood Pressure 136/84 01/18/2013 1:27 PM EDT Pulse 85 01/18/2013 1:27 PM EDT Temperature - - Respiratory Rate - - Oxygen Saturation - - Inhaled Oxygen Concentration - - Weight - - Height - - Body Mass Index - - documented in this encounter Procedure Notes * Ross Madrid MD - 01/18/2013 5:24 PM EDTAssociated Order(s): CYSTO,IRRIGATION & EVACUATION OF CLOTS Procedure: Flexible cystoscopy. Surgeon: [facility] Pre-Operative Diagnosis: [...] toward hematoma at the 5 o'clock position ason prior cystoscopy. There was some shaggy friable tissue at the anastamosis but it appeared intact. There was no clot in the bladder. There was no active bleeding. The scope was removed and the patient tolerated the procedure well. Plan: - oral hydration - monitor for signs of recurrent bleeding - encouraging that anastamosis appears healed, bleeding likely from inflamed tissue in setting of anticoagulation (pt states recent INR 4.9) - strict INR control as best possible documented in this encounter Plan of Treatment Not on file documented as of this encounter Procedures Procedure Name Priority Date/Time Associated Diagnosis Comments CYSTO,IRRIGATION & EVACUATION OF CLOTS Routine 01/18/2013 5:30 PM EDT documented in this encounter Visit Diagnoses Diagnosis Hematuria- Primary Hematuria, unspecified documented in this encounter Care Teams Cuff Slitter Relationship Specialty Start Date End Date Farnaz Pineda MD [address] [place] [address] PCP - General 10/26/12 documented as of this encounter
--- OUTSIDE RECORDS SUMMARY | 2024-04-20 15:08 | XMS_ITS | Encounter Summary ---
Author Organization [facility] [place] [address] Care Team Providers Care Care Advocate Name Role Phone Farnaz Pineda MD Primary Care Provider [phone] Encounter Details Date Type Department Care Team (Late st Contact Info) Description 12/20/2012 Telephone [place] [phone] Elaina Dominguez MD [facility] [address] Social History Tobacco Use Types Packs/Day Years [...] encounter Miscellaneous Notes * Telephone Encounter - Elaina Dominguez MD - 12/20/2012 5:40 AM EDT Sylvain Rodgers is a 62 y.o. man s/p RALRP 11/20/12. He was seen at his local ER in the last couple of days after having some hematuria. HE was told he had a large amount of bacteria in his urine and is being treated for a UTI. His calls early this morning to report that he is having severe groin pain but is unable to elaborate on exactly where this is. She said he had some difficulty urinating, but during our telephone call, he urinated a large volume and the pain resolved. She is unable to relay further history in terms of his urinary stream. If he has ongoing difficulty urinating or any blood in the urine that persists after a course of antibiotics, they will call the clinic to moveup scheduled f/u appt (March). documented in this encounter Plan of Treatment Not on file documented as of this encounter Visit Diagnoses Not on filedocumented in this encounter Care Teams Care Advocate Relationship Specialty Start Date End Date Farnaz Pineda MD [address] [place] [address] PCP - General 10/26/12 documented as of this encounter
--- OUTSIDE RECORDS SUMMARY | 2024-04-20 15:08 | XMS_ITS | Encounter Summary ---
Author Organization [facility] [place] [address] Care Team Providers Care [employer] Name Role Phone Farnaz Pineda MD Primary Care Provider [phone] Encounter Details Date Type Department Care Team (Latest Contact Info) Description 01/03/2013 5:32 PM EDT - 01/05/2013 2:35 PM EDT Hospital Encounter [place] [address] Presley Madrid MD [facility] [place] [address] Discharge Disposition: Home Social History Tobacco Use [...] Sign Reading Time Taken Comments Blood Pressure 120/63 01/05/2013 12:30 PM EDT Pulse 87 01/05/2013 12:30 PM EDT Temperature 36.9 ??C (98.4 ??F) 01/05/2013 12:30 PM E DT Respiratory Rate 20 01/05/2013 12:30 PM EDT Oxygen Saturation 99% 01/05/2013 12:30 PM EDT Inhaled Oxygen Concentration - - Weight - - Height - - Body Mass Index - - documented in this encounter Discharge Instructions * Discharge Instructions* Terrence Vargas RN - 01/04/2013 6:02 PM EDT [facility] Interventional Radiology Post Angiography Instructions Procedure: IVC filter Puncture Site: Right groin Date: 01-04-13 Physician: Dr. Gaines 1. At home we advise you to rest quietly in bed or on the couch with your hip straight until the next morning. Until the next morning you may get up only to go to the bathroom. 2. Resume your previous diet. Drink 6-8 ounces of fluid per hour for the next 8 hours. Avoid alcoholic or caffeinated beverages for 24 hours. 3. Avoid strenuous activity for the next 48 hours, particularly in the next 24 hours. Stair climbing should be kept to a minimum. Do not lift objects heavier than 10-15 pounds for the next 48 hours. 4. If you develop bulging under the skin or bleeding at the puncture site, put direct pressure on the puncture site for 15 minutes and call your doctor. If the bleeding persists, reapply pressure, and go to your local Emergency Department. 5. If you notice a sudden change in the feeling (numbness, tingling and/or pain) of your leg on theside of the puncture call your doctor. 6. You may develop a bruise at the puncture site. This should go away within a week to 10 days. If a bulge develops after the first three days, call your doctor or the /Vascular Department here. Report signs of infection (redness, swelling, discharge, soreness, or fever) to your doctor. 7. Leave the bandage on for 24-48 hours. You may shower the following day after the procedure. You should NOT swim or tub bathe for [address] for 24 hours after the procedure. Do not sign any important documents or smoke unattended for 24 hours. You may return to work with the above restrictions on . 9. Vascular Department at until 4:45pm. After 4:45pm call and ask for the Vascular resident bank operations officer. 10. If you are a diabetic and take Metformin or Janumet, Do not take it for 2 days after the procedure. XX You have received medication during your procedure to help lesson anxiety and keep you comfortable and which affects judgement and reaction time. We recommend that you do not drive, operate equipment, sign any important documents, or smoke unattended for 24 hours following your procedure. Because of the sedation please be careful on stairs, as you may be unsteady on your feet. You may resume your regular diet as tolerated. IV site -- slight redness, or tenderness is normal, you can use a warm compress. If tenderness and redness increases or foul drainage occurs, please contact your M. D. 10/22/11 * Patient Instructions* Fabian Ribeiro - 01/05/2013 10:19 AM EDT Provider Instructions Discharge Instructions CALL YOUR PHYSICIAN IF: You have a fever greater than 101 degrees Farenheit within one month of your surgery. You have diarrhea or vomiting for >24 hours, or stop having bowel movements and passing flatus You have worsening pain, not controlled with your pain medication. You develop redness, swelling, or new drainage from your wound. Follow up INR and coumadin management with your PCP. Prescriptions*: -You have been prescribed narcotic pain medications (such [...] may be used if needed and are xjgr-zjn-fwwibih (OTC) medications available at most local pharmacies. Prunes or prune juice, taken daily, can also be helpful for constipation treatment or p revention and are available at most [employer]. Driving Restrictions*: - No driving if you [...] incision dry with a clean, dry towel. Do not submerge the wound under water (avoid spas, pools and bathtubs) until it is fully healed. Do not use creams, oils, or ointments on the wound. Keep the wound open to air if it is not draining. See follow-up appointments below for removal of sutures/rod. Comfort: Some incision soreness can be expected. Take your pain medication as needed and prescribed. Taper use of pain medication as pain lessens. Follow-up Appointments: A Follow-up appointment will be scheduled with theUrology Clinic. You will recieve a letter in the mail and/or a phone call with information about this appointment. Please call clinic number for appointments to confirm date and time of your appointment, or if you do not receive information about your appointment in a timely manner. Your surgeon may not be Turbo Operator, especially during the night or on weekends, [...] as of this encounter Progress Notes * Kandace Chapman RN - 01/05/2013 2:19 PM EDT The patient has met discharge criteria per policy. Discharge instruction reviewed and patient discharged to responsible adult. Patient???s pain level has been assessed and patient states that his/her level is tolerable at thistime. The After Visit Summary (AVS) and accompanying hand-outs have been reviewed with the patient; the patient verbalizes understanding at this time. Opportunity for clarification provided. All new medications have been reviewed with the patient and the appropriate hand-outs have been given to the patient. Reportable sign and symptoms have been reviewed with patient. * Madhuri Monge - 01/04/2013 9:51 PM EDT Dillan Al is a 62 y.o. male sp 1. Right femoral venous access under ultrasound guidance 2. Non-selective catheterization of vena cava 3. Diagnostic venogram 4. Deployment of inferior vena cava filter S: No nausea/vomiting, chest pain, SOB, pain well controlled, offers no complaints O: Temp: [36.6 ??C (97.9 ??F)-36.9 ??C (98.5 ??F)] Heart Rate: [80-93] Resp: [16] BP: (116-133)/(71-86) SpO2: [96 %-100 %] I/O last 3 completed shifts: In: 1333.3 [I.V.:1333.3] Out: 950 [Urine:950] I/O this shift: In: 1350 [I.V.:1350] Out: 100 [Urine:100] Physical Exam Gen: NAD, resting comfortable CVS: RRR, mechanical click Resp: CTA : groin dressing C/D/I Ext: RLE WWP, palpable DP/PT, LLE: edematous, decreased movement, palpable PT AP Dillan Al is a 62 y.o. male sp as above currently in stable condition and recovering well - continue post operative plan per primary team - pain well controlled - hemodynamically stable * Sandee Batista, RN - 01/04/2013 7:30 PM EDT Patient arrived from IR A&O no complaints of pain at this time. Rt groin site nontender, no drainage or hematoma present. * Terrence Vargas RN - 01/04/2013 2:54 PM EDT [facility] NURSING DATABASE Name: DILLAN AL Date of : 1950 AGE 62 y.o. [address]: [address] [place] [phone] (home) [phone] (work) Mobile: Telephone Information: Referring Provider: Leonardo Barrios Reason for Visit: IVC filter No Known Allergies Pertinent PMH: Patient Active Problem List Diagnoses Code ??? S/P prostatectomy V45.89 ??? Prostate cancer 185 Pertinent PSH: Past Surgical History Procedure Date ??? Lap, prostatectomy, radical, w/nerve spare 11/20/2012 @LAPAROSCOPIC PROSTATECTOMY, ROBOTICS ASSISTED performed by Presley Madrid MD at [facility] MAIN OR ??? Lap, pelvic lymphadenectomy 11/20/2012 LAPAROSCOPY,WITH BILATERAL TOTAL PELVIC LYMPHADENECTOMY, ROBOTIC performed by Presley Madrid MD at [facility] MAIN OR ? ? Cystourethroscopy w/irrig & evac clots 12/27/2012 CYSTO, IRRIGATION & EVACUATION OF CLOTS performed by Presley Madrid MD at [facility] MAIN OR Date/Procedure Comments: No pertinent RAD notes in EDH or CIS 01-04-13 IVC filter Versed 2.5 mg iv, fentanyl 125 mcg iv, ancef 1 gram iv Laboratory Results: Lab Results Component Value Date INR 2.0* 01/03/2013 Lab Results Component Value Date PT 23.6* 01/03/2013 PTT 53* 01/03/2013 Lab Results Component Value Date BUN 13 01/04/2013 Lab Results Component Value Date CREATININE 1.20 01/04/2013 Lab Results Component Value Date K 3.7 01/04/2013 Lab Results Component Value Date PLATELET 602* 01/04/2013 Medications: Prior to Admission medications Medication Sig Start Date End Date Taking? Authorizing Provider hydroCODone-acetaminophen (VICODIN) 5-500 mg per tablet Take 1-2 tablets by mouth every 4 hours as needed for Pain. 12/26/12 Fabian Ribeiro MD ferrous gluconate 325 mg (37.5 mg iron) tablet Take 325 mg by mouth daily (with breakfast). Ranjan Reddy MD hydroCODone-acetaminophen (VICODIN) 5-500 mg per tablet Take 1-2 tablets by mouth every 4 hours as needed for Pain. 11/21/12 Alvaro Ledesma MD omeprazole (PRILOSEC) 20 mg capsule Take [...] has been informed that they require a driver helper to drive them home after this procedure. In the absence of a driver helper, IR will not be able to perform this procedureand will need to reschedule. Pt verbalized understanding of these instructions during the pre-procedure education via phone. * Angelica Valle RN - 01/04/2013 12:15 PM EDT Met with Dillan stewart from numerous prior admissions. He is awaiting a decision on a filter placement as has a DVT in his L thigh also. Had passed clots at home and after admission but states that he is comfortable now. NPO since last night and RN checking on clears. Denies needs at this time and will continue to follow and facilitate discharge as appropriate. Discussion w RN and undetermined plan at this time ANGELICA VALLE RN01/04/2013 .m * Presley Madrid MD - 01/04/2013 10:16 AM EDT Progress Note ID: Dillan Al, 62 y.o. male, admitted on 01/03/2013 for hematuria s/p RALRP on 11/20/12. Of note, his postoperative course has been complicated by hematuria and clot retention for which he was most recently admitted on 12/27/2012 24 Hour Events: No events overnight Pain controlled No N/V 24 Hour Vitals Last value Range last 24 hrs Temperature Temp: 37 ??C (98.6 ??F) Temp: [36.8 ??C (98.3 ??F)-37 ??C (98.6 ??F)] Heart Rate Heart Rate: 88 Heart Rate: [88-104] Blood Pressure BP: 126/74 mmHg BP: (101-126)/(62-74) Arterial Blood Pressure BP (Arterial Line): -- Respiratory Rate Resp: 16 Resp: [16] SpO2 SpO2: 100 % SpO2: [99 %-100 %] I/O last 3 completed shifts: In: 1033.3 [I.V.:1033.3] Out: 500 [Urine:500] PE: Gen: A&Ox3, NAD, lying comfortably in bed CV: RRR, no m/r/g Pulm: CTA, good breath sounds b/l. Abd: Soft. NT. ND, : adequate UOP Extr: moving all 4 extremities, no c/c/e, venodynes in place Labs: Recent Labs Basename 01/04/13 0440 01/03/131941 WBC 8.2 12.0* HGB 7.1* 7.9* PLATELET 602* 532* Recent Labs Basename 01/04/13 0440 01/03/131941 NA 140 138 K 3.7 4.0 CL 106 102 CO2 27 25 BUN 13 12 CREATININE 1.20 1.22 No results found for this basename: AST:3,ALT:3,ALKPHOS:3,BILITOT:3,BILIDIR:3 in the last 168 hours Recent Labs Basename 01/04/130 01/03/131941 CALCIUM 8.8 9.1 PHOS -- -- Recent Labs Basename 01/04/13439 GLUCOSE 94 Imagin/28- CT pelvis without CO- pending 01/04- LE duplex for DVT- pending A/P: Dillan Al, 62 y.o. male, admitted on 01/03/2013 for hematuria s/p RALRP on 11/20/12. Of note, his postoperative course has been complicated by hematuria and clot retention for which he was most recently admitted on 12/27/2012. He is progressing as expected and we will follow up CT and DVT studies. Vital signs stable. Neuro: PO pain medication. CV: Normotensive. Not tachycardic. Restart home medications Pulm: breathing comfortably on 2LNC. GI: . NPO : Good UOP. Continue to monitor UOP and assess for hematuria Endo: Stable. ID: Afebrile, no leukocytosis. Heme: Hemodynamically stable. On coumadin and monitoring INR PPx: PPI, SQH, OOB, PT/OT Disp: short-stay unit, dispo planning. Attending Addendum: Patient seen and examined. Agree with plan as above. Urine is light tinged, passing easily and no recurrent clots. CT today shows reduced inflammation in pelvis and essentially stable hematoma from prior. Duplex shows direct evidence of DVT; discussed with vascular and plan for IVC filter. Discussed findings with patient and answered questions in detail. * Taylor Newton RN - 01/03/2013 8:36 PM EDT Pharmacist and I discussed Lovenox bridge with patient and and they agreed that patient was therapeutic on Coumadin and would not need a bridge at this time. documented in this encounter H&P Notes * Veronique Rizo - 01/04/2013 4:49 PM EDT The patient's history and physical exam have been reviewed and completed. There has been no interval change from that of the pre-operative history and physical exam done within the last 30 days. ASA 3 MAL 2 documented in this encounter Procedure Notes * Brent Gaines MD - 01/04/2013 5:24 PM EDT Vascular Surgery Angio Procedure Note: Pre-Operative Diagnosis: [...] a candidate for thrombolytic therapy given his persistent hematuria, and is at high risk for developing additional DVT (malignancy, relative immobility, recent surgery, mechanical valve). He now presents for IVC filter placement to protect against pulmonary emboli. Findings: - Dr. Gaines was present for the entirety of this procedure. - Sheath access in right groin - Venogram demonstrated patent infrarenal IVC measuring 26mm with bilateral renal veins visualized.Limited right iliac venogram demonstrated patent right iliac vein - Tab Tulip IVC filter deployed Technical Procedure: The patient was correctly identified in the pre-procedure holding area. After a discussion of the risks and benefits, operative consent was obtained. The patient was brought to the angio suite and placed supine upon the angio table. The patient was prepped and draped in the usual sterile fashion. Atime-out was performed by the attending surgeon. Percutaneous access was obtained in the right common femoral vein via micropuncture technique under flouroscopic guidance after infiltration with local anesthetic. This was then up-sized to a 10 cm 5F sheath over a J-wire. The wire was advanced into the inferior vena cava. A 5F omni-flush catheter was advanced into the IVC over the wire. Diagnosticvenography was performed with the above findings. A Tab Tulup IVC filter was deployed in an infrarenal position in standard fashion after markingthe location of the lowest renal vein. The sheath was removed and manual pressure was held over the puncture site for 10 minutes. Hemostasis was satisfactory. The puncture site was dressed with a dry gauze and tegaderm. Dr. Gaines the attending surgeon was scrubbed and present for the entire procedure. Split doses of fentanyl and Versed were administered [...] 4. Deployment of inferior vena cava filter documented in this encounter Miscellaneous Notes * Miscellaneous - Provider, Scanning - 01/09/2013 10:03 AM EDT * Miscellaneous - Provider, Scanning - 01/05/2013 9:11 PM EDT * Miscellaneous - Provider, Scanning - 01/05/2013 9:11 PM EDT * Miscellaneous - Provider, Scanning - 01/05/2013 9:08 PM EDT * Consult Note - Brent Gaines MD - 01/04/2013 2:12 PM EDT Vascular Surgery Inpatient Consult Note Reason for consult: IVC filter placement Attending: Presley Madrid ID: [id number] on Coumadin for mechanical aortic valve, Who was readmitted to the Urology service on 01/03/2013 for hematuria following a robotic radical prostatectomy on 11/20/2012. This is his second readmission after this procedure, the first 12/23-12/25 was for retained clot necessitating CBI. Mr. Al notes he began having L thigh pain 2 days after his initial operation, but denies any swelling or redness. However, during his readmission, he was found to have marked LLE edema and pain, and a DVT study was obtained at that time by the Urology service which was suggestive of a non-occlusive thrombus vs. More proximal obstruction in external iliac or proximal common femoral vein. His coumadin was being held at that time for his hematuria and was 1.3. It was restarted at discharge, andhis INR is 2.0 at admission. However, DVT study obtained today shows direct evidence of DVT in the L mid/distal external iliac vein/proximal common femoral vein. He denies any chest pain, shortness of breath, exercise intolerance. He notes the swelling in his legs has decreased from his initial presentation. PMH: Hypothyroidism Astma PSH: Mechanical AVR Radical prostatectomy BP 104/65 Pulse 88 Temp(Src) 36.8 ??C (98.2 ??F) (Oral) Resp 16 SpO2 100% NAD Alert and oriented. Metallic click, regular on aucultation Clear bilateral In diaper with clear pink urine staining LLE moderate edema compared to right Palpable PT Sensation intact Normal strength CBC Lab Results Component Value Date WBC 8.2 01/04/2013 Hemoglobin 7.1* 01/04/2013 Hematocrit 25.0* 01/04/2013 Platelets 602* 01/04/2013 Electrolytes Lab Results Component Value Date Sodium 140 01/04/2013 Potassium 3.7 01/04/2013 Chloride 106 01/04/2013 CO2 27 01/04/2013 Lab Results Component Value Date BUN 13 01/04/2013 CREATININE 1.20 01/04/2013 DVT study (01/04) RIGHT: No evidence of lower extremity deep vein thrombosis. No identifiable change compared to the previous exam done on 12/28/2012. LEFT: Non-occlusive deep vein thrombus in the mid/distal external iliac vein/proximal common femoral vein. Results comparable to the indirect findings on the previous exam done on 12/28/2012 with the addition of direct evidence of thrombus in these segments. NOTE: Fabian Ribeiro MD (pager #[phone]) was notified of the preliminary Results. DVT study (12/28) Interpretation: RIGHT: No evidence of lower extremity deep vein thrombosis. LEFT: Continuous Doppler waveforms in the external iliac and common femoral vein may indicate a more proximal venous obstruction vs. non occlusive thrombus. No direct evidence of lower extremity deep vein thrombosis. Comparison: No previous study in our vascular lab database for comparison. A/P 62 y.o. male with persistent non-occlusive DVT. Likely developed while he was not anticoagulated betito-proccedurally or during his readmission. However, it appears to have propagated since that time, when he likely was therapeutically anticoagulated. Additionally, he is not a candidate for any sort of thrombolytic therapy given his persistent hematuria, and is at high risk for developing additional DVT (malignancy, relative immobility, recent surgery, mechanical valve). We recommend a Cornish/IVC filter placemen to protect against pulmonary emboli. These recommendations were communicated with the Urology team, who agreed, and I spoke with Mr. Al, who was amenable to the procedure. We will add him to the schedule as an add-on case today. He is consented and booked. I have seen and examined this patient. I have little to add to Dr. Wilkinson's H&P. Pt with venous thrombosis despite anticoagulation. Pt needs IVC filter. This will be placed today. * Miscellaneous - Provider, Scanning - 01/03/2013 8:33 PM EDT documented in this encounter Plan of Treatment Not on file documented as of this encounter Procedures Procedure Name Priority Date/Time Associated Diagnosis Comments PROTHROMBIN TIME Routine 01/05/2013 4:39 AM EDT VS IVC FILTER PLACEMENT VASCULAR SURGERY Routine 01/04/2013 5:[address] PELVIS SOFT TISSUE (GI DATA ANALYTICS DEVELOPER) WO CONTRAST Routine 01/04/2013 10:55 AM EDT DUPLEX FOR DVT BILAT LEGS Routine 01/04/2013 8:59 AM EDT SCAN, PERIPHERAL BLOOD Timed 01/04/2013 4:40 AM EDT DIFFERENTIAL, AUTOMATED Timed 01/04/2013 4:40 AM EDT CBC (WITH DIFF) Timed 01/04/2013 4:40 AM EDT BASIC METABOLIC PANEL (NON-FASTING) Timed 01/04/2013 4:40 AM EDT BMP W/FASTING GLUCOSE Routine 01/03/2013 7:42 PM EDT SCAN, PERIPHERAL BLOOD Routine 01/03/2013 7:42 PM EDT DIFFERENTIAL, AUTOMATED Routine 01/03/2013 7:42 PM EDT APTT Routine 01/03/2013 7:42 PM EDT PROTHROMBIN TIME Routine 01/03/2013 7:42 PM EDT CBC (WITH DIFF) Routine 01/03/2013 7:42 PM EDT documented in this encounter Results * (ABNORMAL) Prothrombin Time (01/05/2013 4:39 AM EDT) PT 24.9(H) 12.0 - 15.0 sec [facility] Comment: [facility] Transfusion Committee Guidelines: INR less than 2.0, PTT less than OR equal to 43.5 seconds, or Fibrinogen greater than or equal to 100 mg/dl indicate adequate procoagulant activity for hemostasis in patients without underlying bleeding disorders. INR 2.2(H) 0.9 - 1.1 [facility] Blood specimen (specimen) 01/05/2013 4:39 AM EDT 01/05/2013 4:39 AM EDT Narrative Resulting Agency Comment Spec In Lab Presley Madrid MD HEMATOLOGY ORDERABLE S DANETTE HARTMANAYLIEN * VS IVC filter placement/removal (vascular) (01/04/2013 5:34 PM EDT) Anatomical Region Laterality Modality X-Ray Angiograph y 01/04/2013 5:34 PM EDT Narrative 01/05/2013 9:25 AM EDT Vascular Surgery Angio Procedure Note: ?? Pre-Operative Diagnosis: lower extremity deep venous thrombosis ?? Post-Operative Diagnosis: same ?? Procedure: ?? 1. Right femoral venous access under ultrasound guidance ?? 2. Non-selective catheterization of vena cava ?? 3. Diagnostic venogram ?? 4. Deployment of inferior vena cava filter ?? Surgeons: Eder Rizo ?? Dye: 30 mL Visipaque ?? FT: 0.5 minutes ?? Antibiotics: 1 gram Kefzol ?? Sedation: Versed- 2.5 mg, Fentanyl- 125 mcg ?? Indications: 62 y.o. male with persistent non-occlusive DVT. Likely developed while he was not anticoagulated betito-proccedurally or during his readmission. However, it appears to have propagated since that time, when he likely was therapeutically anticoagulated. Additionally, he is not a candidate for thrombolytic therapy given his persistent hematuria, and is at high risk for developing additional DVT (malignancy, relative immobility, recent surgery, mechanical valve). He now presents for IVC filter placement to protect against pulmonary emboli. ?? Findings: ?? - Dr. Gaines was present for the entirety of this procedure. ?? - Sheath access in right groin ?? - Venogram demonstrated patent infrarenal IVC measuring 26mm with bilateral renal veins visualized. Limited right iliac venogram demonstrated patent right iliac vein ?? - Tab Tulip IVC filter deployed ?? Technical Procedure: ?? The patient was correctly identified in the pre-procedure holding area. After a discussion of the risks and benefits, operative consent was obtained. The patient was brought to the angio suite and placed supine upon the angio table. The patient was prepped and draped in the usual sterile fashion. A time-out was [...] venography was performed with the above findings. ?? A Tab Tulup IVC filter was deployed in an infrarenal position in standard fashion after marking the location of the lowest renal vein. ?? The sheath was removed and manual pressure was held over the puncture site for 10 minutes. Hemostasis was satisfactory. The puncture site was dressed with a dry gauze and tegaderm. ?? Dr. Gaines the attending surgeon was scrubbed and present for the entire procedure. Split doses of fentanyl and Versed were administered by the IR nurse during continuous monitoring of pulse, blood pressure and oxygen saturation. ?? Plan: Readmit to urology service. Observe DVT for now and continue anticoagulation as able. ?? I was present and I participated during the critical and capps portions of this procedure; and I was immediately available during the remainder of the procedure. I interpret the critical and capps portions of this procedure to have been: ?? Procedure: ?? 1. Right femoral venous access under ultrasound guidance ?? 2. Non-selective catheterization of vena cava ?? 3. Diagnostic venogram ?? 4. Deployment of inferior vena cava filter ?? Film and interpretation reviewed by the attending Procedure Note Brent Gaines MD - 01/05/2013 Vascular Surgery Angio Procedure Note: Pre-Operative [...] 62 y.o. male with persistent non-occlusive DVT. Likelydeveloped while he was not anticoagulated betito-proccedurally or during hisreadmission. However, it appears to have propagated since that time, when he likely was therapeutically anticoagulated. Additionally, he is not a candidate for thrombolytic therapy given his persistent hematuria, and is at high riskfor developing additional DVT (malignancy, relative immobility, recentsurgery, mechanical valve). He now presents for IVC filter placement to protectagainst pulmonary emboli. Findings: - Dr. Gaines was present for the entirety of this procedure. - Sheath access in right groin - Venogram demonstrated patent infrarenal IVC measuring 26mm withbilateral renal veins visualized. Limited right iliac venogram demonstrated patentright iliac vein - Tab Tulip IVC filter deployed Technical Procedure: The patient was correctly identified in the pre-procedure holding area.After a discussion of the risks and benefits, operative consent was obtained. The patient was brought to the angio suite and placed supine upon the angiotable. The patient was prepped and draped in the usual sterile fashion. Atime-out was performed by the attending surgeon. Percutaneous access was obtained inthe right common femoral vein via micropuncture technique under flouroscopic guidance after infiltration with local anesthetic. This was then up-sizedto a 10 cm 5F sheath over a J-wire. The wire was advanced into the inferiorvena cava. A 5F omni-flush catheter was advanced into the IVC over the wire. Diagnostic venography was performed with the above findings. A Tab Tulup IVC filter was deployed in an infrarenal position instandard fashion after marking the location of the lowest renal vein. The sheath was removed and manual pressure was held over the puncture sitefor 10 minutes. Hemostasis was satisfactory. The puncture site was dressedwith a dry gauze and tegaderm. Dr. Gaines the attending surgeon was scrubbed and present for the entire procedure. Split doses of fentanyl and Versed were administered by the IRnurse during continuous monitoring of pulse, blood pressure and oxygensaturation. Plan: Readmit to urology service. Observe DVT for now and continue anticoagulation as able. I was present and I participated during the critical and capps portions ofthis procedure; and I was immediately available during the remainder of the procedure. I interpret the critical and capps portions of this procedure tohave been: Procedure: 1. Right femoral venous access under ultrasound guidance 2. Non-selective catheterization of vena cava 3. Diagnostic venogram 4. Deployment of inferior vena cava filter Film and interpretation reviewed by the attending Presley Madrid MD IMG IR ORDERABLES * CT pelvis WO contrast (01/04/2013 10:55 AM EDT) Anatomical Region Laterality Modality Pelvis Computed Tomogra phy 01/04/2013 10:5 5 AM EDT Narrative 01/04/2013 11:[address] Pelvis Without Contrast Clinical History [...] iliacus muscle and into the deep pelvis. ?? Previously suspected anterior lymphocele now contains some hyperdense material suggesting some element of retracted thrombus within this. ??Deep pelvic sutures are identified along both sides of the prostatectomy bed. ??Postoperative changes in this bed had Salomon have retracted in the interval as fat planes have become more evident. ??Review of osseous structures shows no suspicious lesions. Impression Interval enlargement of the known left dominik pelvic hematoma with retraction of postsurgical changes in the prostatectomy bed. Procedure Note Ronna Rehman MD - 01/04/[address] Pelvis Without Contrast Clinical History s/p RALP with known pelvic hematoma and persistent hematuria Comparison December 08, 2012. Technique Noncontrast CT pelvis. Findings Increased size of the left pelvic wall hematoma currently measuring 9 x6.4 cm compared to prior of 7.5 x 5 cm containing retracted thrombus whichextends from the iliopsoas junction, along the iliacus muscle and into the deeppelvis. Previously suspected anterior lymphocele now contains some hyperdensematerial suggesting some element of retracted thrombus within this. Deep pelvicsutures are identified along both sides of the prostatectomy bed. Postoperative changes in this bed had Salomon have retracted in the interval as fat planeshave become more evident. Review of osseous structures shows no suspiciouslesions. Impression Interval enlargement of the known left dominik pelvic hematoma withretraction of postsurgical changes in the prostatectomy bed. Presley Madrid MD IMG CT ORDERABLES * Duplex Study for DVT, Bilat legs (01/04/2013 8:59 AM EDT) VB Text Report Department: Vascular Surgery Lab Patient: [id number] ([place]) CPT Code: 30016 ICD-9: 451.19 Referring Physician: PRESLEY MADRID Indication: ??History of DVT, patient on coumadin, ? progression/resolu tion ICD9 Diagnosis Code: 451.19 RIGHT: Patent common femoral vein and popliteal vein with spontaneous, respirophasic Doppler waveforms that respond normally to augmentation maneuvers. The common femoral vein, saphenofemoral junction, femoral vein through the thigh and the popliteal vein are fully compressible. Patent posterior tibial and peroneal veins with no evidence of thrombus. LEFT: Non-occlusive thrombus in the proximal/mid external iliac vein/distal common femoral vein with continuous Doppler waveforms and reduced augmentation. Unable to visualize the proximal EIV/CIV due to overlying bowel gas; therefore, cannot exclude extension of thrombus into these segments. Otherwise, patent popliteal vein with spontaneous, respirophasic Doppler waveforms that respond normally to augmentation maneuvers. The common femoral vein, saphenofemoral junction, femoral vein through the thigh and the popliteal vein are fully compressible. Patent posterior tibial and peroneal veins in the mid and distal calf with no evidence of thrombus. Suboptimal visualization of the posterior tibial and peroneal veins in the proximal calf due to swelling therefore, cannot exclude thrombus in this segment. Interpretation: RIGHT: No evidence of lower extremity deep vein thrombosis. No identifiable change compared to the previous exam done on 12/28/2012. LEFT: Non-occlusive deep vein thrombus in the proximal/mid external iliac vein/distal common femoral vein. Results comparable to the indirect findings on the previous exam done on 12/28/2012 with the addition of direct evidence of thrombus in these segments. NOTE: Fabian Ribeiro MD (pager #[phone]) was notified of the preliminary results. Signed by CATRACHO BAKER on 2013-01-04 04:40:02 PM [facility]AS[facility] 01/04/2013 8:59 AM EDT Presley Madrid MD VASCULAR ORDERABLES [facility]AS[facility] * Scan, Peripheral Blood (01/04/2013 4:40 AM EDT) Plat Estimate Increased CERNER MILLENNIUM RBC Morphology Abnormal CERNE R MILLENNIUM Polychromasia Present >5/HPF CERNER MILLENNIUM Ovalocytes 1-5 /HPF CERNER MILLENNIUM Blood specimen (specimen) 01/04/2013 4:40 AM EDT 01/04/2013 5:24 AM EDT Narrative Resulting Agency Comment Spec In Lab Presley Madrid MD HEMATOLOGY ORDERABLE S CERNER MILLENNIUM * (ABNORMAL) Differential, Automated (01/04/2013 4:40 AM EDT) Neutrophils % 64.3 34.0 - 71.0 % CERNER MILLENNIUM Neutr Abs (ANC) 5.25 1.50 - 6.30 x10(3)/mc L CERNER MILLENNIUM Lymphocytes % 18.8(L) 19.0 - 53.0 % CERNER MILLENNIUM Lymphocytes Abs 1.5 1.0 - 3.6 x10(3)/mc L CERNER MILLENNIUM Monocytes % 6.9 4.0 - 13.0 % CERNER MILLENNIUM Monocyte Abs 0.6 0.2 - 1.0 x10(3)/mc L CERNER MILLENNIUM Eosinophils % 8.6(H) 0.0 - 7.0 % CERNER MILLENNIUM Eosinophils Abs 0.7(H) 0.0 - 0.5 x10(3)/mc L CERNER MILLENNIUM Basophils % 0.9 0.0 - 2.0 % CERNER MILLENNIUM Basophils Abs 0.1 0.0 - 0.2 x10(3)/mc L CERNER MILLENNIUM Immature Gran % 0.50 0.00 - 0.66 % CERNER MILLENNIUM Comment: Immature granulocytes(IG's)percentage and absolute count will include metamyelocytes, myelocytes, and promyelocytes. Blood smears from CBCs yielding IG's will be scanned manually for concordance. If this scan disagrees with the automated IG or if promyelocytes are noted, a manual differential will be performed. Yeni Gran Abs 0.04 0.00 - 0.05 x10(3)/mc L CERNER MILLENNIUM Blood specimen (specimen) 01/04/2013 4:40 AM EDT 01/04/2013 5:24 AM EDT Presley Madrid MD HEMATOLOGY ORDERABLE S [facility] MILLENNIUM * Basic Metabolic Panel (non-fasting) (01/04/2013 4:40 AM EDT) Glucose Lvl 94 60 - 199 mg/dL CERNER MILLENNIUM Comment:Diabetes: >=200 mg/d L plus symptoms BUN 13 10 - 20 mg/dL CERNER MILLENNIUM Creatinine 1.20 0.80 - 1.50 mg/dL CERNER MILLENNIUM Comment: Please note that the pediatric reference intervals supplied above were not validated at [facility]. Results from pediatric patients should be interpreted [...] Laboratory if there are any questions. Chloride 106 98 - 107 mmol/L CERNER MILLENNIUM CO2 27 22 - 31 mmol/L CERNER MILLENNIUM Anion Gap 7 5 - 15 mmol/L CERNER MILLENNIUM Calcium 8.8 8.5 - 10.5 mg/dL CERNER MILLENNIUM Estimated [...] J Am Soc Nephrol;6:1963-72. Blood specimen (specimen) 01/04/2013 4:40 AM EDT 01/04/2013 5:24 AM EDT Narrative Resulting Agency Comment Spec In Lab Persley Madrid MD CHEMISTRY ORDERABLES Performing Organization Address City/[facility]/ZIP Co de Phone Number CERNER MILLENNIUM * (ABNORMAL) CBC (with Diff) (01/04/2013 4:40 AM EDT) WBC 8.2 4.0 - 10.0 x10(3)/mcL CERNER MILLENNIUM RBC 2.79(L) 4.63 - 6.08 x10(6)/mcL CERNER MILLENNIUM Hemoglobin 7.1(L) 13.7 - 17.5 gm/dL CERNER MILLENNIUM Hematocrit 25.0(L) 40.0 - 51.0 % CERNER MILLENNIUM MCV 89.6 79.0 - 92.0 fL CERNER MILLENNIUM MCH 25.4(L) 25.6 - 32.2 pg CERNER MILLENNIUM MCHC 28.4(L) 32.0 - 36.5 gm/dL CERNER MILLENNIUM Comment:Matches Previous Res ults Platelets 602(H) 145 - 370 x10(3)/mcL CERNER MILLENNIUM RDWSD 64.2(H) 35.0 - 46.0 fL CERNER MILLENNIUM RDWCV 19.8(H) 10.9 - 14.4 % CERNER MILLENNIUM MPV 8.8(L) 9.0 - 12.0 fL CERNER MILLENNIUM Blood specimen (specimen) 01/04/2013 4:40 AM EDT 01/04/2013 5:24 AM EDT Narrative Resulting Agency Comment Spec In Lab Presley Madrid MD HEMATOLOGY ORDERABLE S CERDAKSHA MILLENNIUM * (ABNORMAL) Differential, Automated (01/03/2013 7:42 PM EDT) Neutrophils % 80.6(H) 34.0 - 71.0 % CERNER MILLENNIUM Neutr Abs (ANC) 9.65(H) 1.50 - 6.30 x10(3)/mc L CERNER MILLENNIUM Lymphocytes % 7.4(L) 19.0 - 53.0 % CERNER MILLENNIUM Lymphocytes Abs 0.9(L) 1.0 - 3.6 x10(3)/mc L CERNER MILLENNIUM Monocytes % 5.9 4.0 - 13.0 % CERNER MILLENNIUM Monocyte Abs 0.7 0.2 - 1.0 x10(3)/mc L CERNER MILLENNIUM Eosinophils % 5.0 0.0 - 7.0 % CERNER MILLENNIUM Eosinophils Abs 0.6(H) 0.0 - 0.5 x10(3)/mc L CERNER MILLENNIUM Basophils % 0.6 0.0 - 2.0 % CERNER MILLENNIUM Basophils Abs 0.1 0.0 - 0.2 x10(3)/mc L CERNER MILLENNIUM Immature Gran % 0.50 0.00 - 0.66 % CERNER MILLENNIUM Comment: Immature granulocytes(IG's)percentage and absolute count will include metamyelocytes, myelocytes, and promyelocytes. Blood smears from CBCs yielding IG's will be scanned manually for concordance. If this scan disagrees with the automated IG or if promyelocytes are noted, a manual differential will be performed. Yeni Gran Abs 0.06(H) 0.00 - 0.05 x10(3)/mc L CERNER MILLENNIUM Blood specimen (specimen) 01/03/2013 7:42 PM EDT 01/03/2013 7:44 PM EDT Presley Madrid MD HEMATOLOGY ORDERABLE S CERNER MILLENNIUM * Scan, Peripheral Blood (01/03/2013 7:42 PM EDT) Plat Estimate Increased CERNER MILLENNIUM RBC Morphology Abnormal CERNE R MILLENNIUM Macrocytes 1-5 /HPF CERNER MILLENNIUM Microcytes 1-5 /HPF CERNER MILLENNIUM Polychromasia Present >5/HPF CERNER MILLENNIUM Ovalocytes 1-5 /HPF CERNER MILLENNIUM Blood specimen (specimen) 01/03/2013 7:42 PM EDT 01/03/2013 7:44 PM EDT Narrative Resulting Agency Comment Spec In Lab Presley Madrid MD HEMATOLOGY ORDERABLE S Performing Organization Address [facility] [place]/[facility] Co de Phone Number [facility] * (ABNORMAL) APTT (01/03/2013 7:42 PM EDT) PTT 53(H) 25 - 35 sec [facility] MILLENNIUM Comment: Recommended therapeutic PTT range for full dose unfractionated heparin is 80-114 seconds. Blood specimen (specimen) 01/03/2013 7:42 PM EDT 01/03/2013 7:44 PM EDT Narrative Resulting Agency Comment Spec In Lab Presley Madrid MD HEMATOLOGY ORDERABLE S Performing Organization Address [facility] [place]/[facility] de Phone Number [facility] * (ABNORMAL) Prothrombin Time (01/03/2013 7:42 PM EDT) PT 23.6(H) 12.0 - 15.0 sec [facility] Comment: [facility] Transfusion Committee Guidelines: INR less than 2.0, PTT less than OR equal to 43.5 seconds, or Fibrinogen greater than or equal to 100 mg/dl indicate adequate procoagulant activity for hemostasis in patients without underlying bleeding disorders. INR 2.0(H) 0.9 - 1.1 [facility] Blood specimen (specimen) 01/03/2013 7:42 PM EDT 01/03/2013 7:44 PM EDT Narrative Resulting Agency Comment Spec In Lab Presley Madrid MD HEMATOLOGY ORDERABLE S Performing Organization Address [facility] [place]/[facility] Co de Phone Number [facility] * (ABNORMAL) BMP w/fasting Glucose (01/03/2013 7:42 PM EDT) Glucose Fasting 126(H) 65 - 99 mg/dL [facility] Comment: ?Fasting* Glucose Interpretive Criteria Normal ?65-99 [...] of Diabetes Mellitus, Position Statement from the [place] [employer]. ??Diabetes Care, Volume 33, Supplement 1, Oct 2009 BUN 12 10 - 20 mg/dL CERNER MILLENNIUM Creatinine 1.22 0.80 - 1.50 mg/dL CERNER MILLENNIUM Comment: Please note that the pediatric reference intervals supplied above were not validated at [facility]. Results from pediatric patients should be interpreted in conjunction to the patient's age, height and muscle mass. Sodium 138 135 - 145 mmol/L CERNER MILLENNIUM Potassium 4.0 3.5 - 5.0 mmol/L CERNER MILLENNIUM Comment: Please note: ??Patients with WBC >100,000 may have falsely elevated Potassium levels. ??For accurate Potassium quantification in these patients send serum separator tube (gold top) for subsequent determinations. ??Contact the Clinical Chemistry Laboratory if there are any questions. Chloride 102 98 - 107 mmol/L CERNER MILLENNIUM CO2 25 22 - 31 mmol/L CERNER MILLENNIUM Anion Gap 11 5 - 15 mmol/L CERNER MILLENNIUM Calcium 9.1 8.5 - 10.5 mg/dL CERNER MILLENNIUM Estimated [...] J Am Soc Nephrol;6:1963-72. Blood specimen (specimen) 01/03/2013 7:42 PM EDT 01/03/2013 7:44 PM EDT Narrative Resulting Agency Comment Spec In Lab Presley Madrid MD CHEMISTRY ORDERABLES [facility] * (ABNORMAL) CBC (with Diff) (01/03/2013 7:42 PM EDT) WBC 12.0(H) 4.0 - 10.0 x10(3)/mcL CERNER MILLENNIUM RBC 3.04(L) 4.63 - 6.08 x10(6)/mcL CERNER MILLENNIUM Hemoglobin 7.9(L) 13.7 - 17.5 gm/dL CERNER MILLENNIUM Hematocrit 27.3(L) 40.0 - 51.0 % CERNER MILLENNIUM MCV 89.8 79.0 - 92.0 fL CERNER MILLENNIUM MCH 26.0 25.6 - 32.2 pg CERNER MILLENNIUM MCHC 28.9(L) 32.0 - 36.5 gm/dL DANETET HARTMANENNIUM Platelets 532(H) 145 - 370 x10(3)/mcL CERDAKSHA HARTMANENNIUM RDWSD 63.3(H) 35.0 - 46.0 fL DANETTE HARTMANENNIUM RDWCV 19.8(H) 10.9 - 14.4 % DANETTE HARTMANENNIUM MPV 8.5(L) 9.0 - 12.0 fL DANETTE HARTMANENNIUM Blood specimen (specimen) 01/03/2013 7:42 PM EDT 01/03/2013 7:44 PM EDT Narrative Resulting Agency Comment Spec In Lab Presley Madrid MD HEMATOLOGY ORDERABLE S DANETTE VALENCIA documented in this encounter Visit Diagnoses Not on filedocumented in this encounter Administered Medications Inactive Administered Medications - up to 3 most recent administrations Medication Order MAR Action Action Date Dose Rate Site aspirin EC tablet 81 mg 81 mg, Oral, DAILY, First dose on Tue01/04/13 at 0900, Until Discontinued, Routine Given 01/05/2013 9:00 AM EDT 81 mg Given 01/04/2013 9:00 AM EDT 81 mg ceFAZolin (ANCEF) 1g in dextrose 5% 50mL 1,000 mg (1 g), Intravenous, ONCE, 1 dose, On Tue01/04/13 at 1700, Administer over 30 Minutes, Intra-Operative (Intra-Procedure), Indication for (Active or Suspected): Prophylaxis Given 01/04/2013 4:45 PM EDT 1,000 mg 100 mL/ hr ciprofloxacin (CIPRO) 400mg in dextrose 5% 200mL 400 mg, Intravenous, ONCE, 1 dose, On Tue01/03/13 at 1930, Administer over 60 Minutes, Day of Surgery (Day of Procedure), Indication for (Active or Suspected): Prophylaxis, Restricted Antibiotic: Please indicate the most appropriate choice: Pre-approved Indication (State the indication in Comments field) Given 01/03/2013 7:57 PM EDT 400 mg 200 mL/hr esomeprazole (NEXIUM) capsule 40 mg 40 mg, Oral, DAILY, First dose on Tue01/04/13 at 0900, Until Discontinued, Routine Given 01/05/2013 9:00 AM EDT 40 mg Given 01/04/2013 9:00 AM EDT 40 mg fentaNYL 50mcg/mL injection 25-50 mcg, Intravenous, EVERY 1 HOUR PRN, Starting on Tue01/04/13 at 1637, Until Tue01/04/13 at 1719, Pain, Angio/IR (Intra-Procedure), Routine Given 01/04/2013 5:15 PM EDT 125 mcg hydroCODone-acetaminophen (VICODIN) 5-500 mg per tablet 1-2 tablet 1-2 tablet, Oral, EVERY 4 HOURS PRN, Starting on Tue01/03/13 at 1822, Until Tue01/05/13 at 1638, Pain, Maximum dose of acetaminophen is 4000 mg from all sources in 24 hours., Routine Given 01/05/2013 12:38 PM EDT 2 tablets Given 01/05/2013 8:15 AM EDT 2 tablets Given 01/04/2013 8:01 PM EDT 2 tablets iohexol (OMNIPAQUE) 350 mg iodine/mL injection 17,500 mg 17,500 mg (50 mL), Intravenous, ONCE PRN, 1 dose, Starting on Tue01/04/13 at 1732, Until Tue01/04/13 at 1701, Per Protocol, Routine Given 01/04/2013 5:01 PM EDT 3 0 mLs levothyroxine (SYNTHROID) tablet 50 mcg 50 mcg, Oral, EVERY MORNING, First dose on Tue01/04/13 at 0600, Until Discontinued, Routine Given 01/05/2013 6:00 AM EDT 50 mcg Given 01/04/2013 6:00 AM EDT 50 mcg midazolam (VERSED) injection 0.5 mg 0.5 mg, Intravenous, EVERY 10 MIN PRN, Starting on Tue01/04/13 at 1637, Until Tue01/04/13 at 1719, Sleep, Angio/IR (Intra-Procedure), Routine Given 01/04/2013 5:15 PM EDT 2.5 mg montelukast (SINGULAIR) tablet 10 mg 10 mg, Oral, NIGHTLY, First dose on Tue01/03/13 at 2100, Until Discontinued, Routine Given 01/04/2013 9:00 PM EDT 10 mg senna-docusate (PERICOLACE) 8.6-50 mg per tablet 1-4 tablet 1-4 tablet, Oral, 2 TIMES DAILY, First dose on Tue01/03/13 at 2100, Until Discontinued, Start with 1 tablet or liquid equivalent orally twice daily and titrate up to achieve: 1. One bowel movement at least every 48 hours, AND 2. Without straining, Routine Given 01/04/2013 9:00 PM EDT 2 tablets Given 01/04/2013 9:00 AM EDT 2 tablets sodium chloride 0.9 % flush 5 mL 5 mL, Intravenous, EVERY 12 HOURS, First dose on Tue01/03/13 at 2100, Until Discontinued Given 01/05/2013 9:00 AM EDT 5 mLs Given 01/04/2013 9:00 AM EDT 5 mLs Given 01/03/2013 9:00 PM EDT 5 mLs sodium chloride 0.9% infusion 1,000 mL, at 100 mL/hr, Intravenous, CONTINUOUS, Starting on Tue01/03/13 at 1845, Until Tue01/05/13 at 1638 New Bag 01/05/2013 8:36 AM EDT 1,000 mLs 100 m L/hr New Bag 01/04/2013 11:23 PM EDT 1,000 mLs 100 mL/hr Rate/Dose Verify 01/04/2013 7:30 PM EDT 1,000 mLs 100 mL/ hr warfarin (COUMADIN) tablet 7.5 mg 7.5 mg, Oral, DAILY, First dose on Tue01/03/13 at 1845, Until Discontinued, Routine Given 01/04/2013 8:00 PM EDT 7.5 mg Given 01/03/2013 8:07 PM EDT 7.5 mg documented in this encounter Active and Recently Administered Medications Times are shown in EDT. Scheduled Medication Order 01/03/2013 01/04/2013 01/05/2013 aspirin EC tablet 81 mg (CANCELED) 81 mg, Oral, DAILY, First dose on Tue01/04/13 at 0900, Until Discontinued, Routine 0900 (Given - Provider: Blanquita George RN) 0900 (Given - Provider: Kandace Chapman RN) ceFAZolin (ANCEF) 1g in dextrose 5% 50mL (COMPLETED) 1,000 mg (1 g), Intravenous, ONCE, 1 dose, On Tue01/04/13 at 1700, Administer over 30 Minutes, Intra-Operative (Intra-Procedure), Indication for (Active or Suspected): Prophylaxis 1644 (Given - Provider: Terrence Vargas RN) ciprofloxacin (CIPRO) 400mg in dextrose 5% 200mL (COMPLETED) 400 mg, Intravenous, ONCE, 1 dose, On Tue01/03/13 at 1930, Administer over 60 Minutes, Day of Surgery (Day of Procedure), Indication for (Active or Suspected): Prophylaxis, Restricted Antibiotic: Please indicate the most appropriate choice: Pre-approved Indication (State the indication in Comments field) 1956 (Given - Provider: Taylor Newton RN) esomeprazole (NEXIUM) capsule 40 mg (CANCELED) 40 mg, Oral, DAILY, First dose on Tue01/04/13 at 0900, Until Discontinued, Routine 0900 (Given - Provider: Blanquita George RN) 0900 (Given - Provider: Kandace Chapman RN) levothyroxine (SYNTHROID) tablet 50 mcg (CANCELED) 50 mcg, Oral, EVERY MORNING, First dose on Tue01/04/13 at 0600, Until Discontinued, Routine 0600 (Given - Provider: Blanquita George RN) 0600 (Given - Provider: Kandace Chapman RN) montelukast (SINGULAIR) tablet 10 mg (CANCELED) 10 mg, Oral, NIGHTLY, First dose on Tue01/03/13 at 2100, Until Discontinued, Routine 2100 (Not Given - Provider: Taylor Newton RN - Reason: Patient/family refused) 2100 (Given - Provider: Sandee Batista RN) senna-docusate (PERICOLACE) 8.6-50 mg per tablet 1-4 tablet (CANCELED) 1-4 tablet, Oral, 2 TIMES DAILY, First dose on Tue01/03/13 at 2100, Until Discontinued, Start with 1 tablet or liquid equivalent orally twice daily and titrate up to achieve: 1. One bowel movement at least every 48 hours, AND 2. Without straining, Routine 2100 (Not Given - Provider: Taylor Newton RN - Reason: Patient/family refused) 0900 (Given - Provider: Blanquita George RN)2100 (Given - Provider: Sandee Batista RN) 0900 (Not Given - Provider: Kandace Chapman RN - Reason: Patient/family refused) sodium chloride 0.9 % flush 5 mL (CANCELED) 5 mL, Intravenous, EVERY 12 HOURS, First dose on Tue01/03/13 at 2100, Until Discontinued 2099 (Given - Provider: Taylor Newton RN) 0900 (Given - Provider: Blanquita George RN)2100 (Not Given - Provider: Sandee Batista RN - Reason: See comment - Comment: IVF infusing) 0900 (Given - Provider: Kandace Chapman RN) warfarin (COUMADIN) tablet 7.5 mg (CANCELED) 7.5 mg, Oral, DAILY, First dose on Tue01/03/13 at 1845, Until Discontinued, Routine 2006 (Given - Provider: Taylor Newton RN) 2000 (Given - Provider: Sandee Batista RN) 0900 (Not Given - Provider: Kandace Chapman RN - Reason: Contraindicated) Continuous Medication Order 01/03/2013 01/04/2013 01/05/2013 sodium chloride 0.9% infusion (CANCELED) 1,000 mL, at 100 mL/hr, Intravenous, CONTINUOUS, Starting on Tue01/03/13 at 1845, Until Tue01/05/13 at 1638 1940 (New Bag - Provider: Taylor Newton RN) 0400 (New Bag - Provider: Christy Kohli RN)0600 (Rate/Dose Verify - Provider: Christy Kohli RN)0801 (New Bag - Provider: Alfred Santizo RN)1930 (Rate/Dose Verify - Provider: Sandee Batista RN)2323 (New Bag - Provider: Sandee Batista RN) 0836 (New Bag - Provider: Gomez Puente RN) PRN Medication Order 01/03/2013 01/04/2013 01/05/2013 fentaNYL 50mcg/mL injection (CANCELED) 25-50 mcg, Intravenous, EVERY 1 HOUR PRN, Starting on Emma 01/04/13 at 1637, Until Emma 01/04/13 at 1719, Pain, Angio/IR (Intra-Procedure), Routine 1715 (Given - Provider: Terrence Vargas RN - Comment: given in divided doses per sop) hydroCODone-acetaminophe n (VICODIN) 5-500 mg per tablet 1-2 tablet (CANCELED) 1-2 tablet, Oral, EVERY 4 HOURS PRN, Starting on Tue01/03/13 at 1822, Until Tue01/05/13 at 1638, Pain, Maximum dose of acetaminophen is 4000 mg from all sources in 24 hours., Routine 1927 (Given - Provider: Taylor Newton RN) 0916 (Given - Provider: Blanquita George RN)2000 (Given - Provider: Sandee Batista, LANIE) 0815 (Given - Provider: Kandace Chapman, LANIE)123 (Given - Provider: Kandace Chapman RN) iohexol (OMNIPAQUE) 350 mg iodine/mL injection 17,500 mg (COMPLETED) 17,500 mg (50 mL), Intravenous, ONCE PRN, 1 dose, Starting on Emma 01/04/13 at 1732, Until Emma 01/04/13 at 1701, Per Protocol, Routine 170 (Given - Provider: Alvaro Spencer Jr.) midazolam (VERSED) injection 0.5 mg (CANCELED) 0.5 mg, Intravenous, EVERY 10 MIN PRN, Starting on Emma 01/04/13 at 1637, Until Emma 01/04/13 at 1719, Sleep, Angio/IR (Intra-Procedure), Routine 1715 (Given - Provider: Terrence Vargas RN - Comment: given in divided doses per sop) documented in this encounter Care Teams [employer] Relationship Specialty Start Date End Date Farnaz Pineda MD [address] [place] [address] PCP - General 10/26/12 documented as of this encounter
--- OUTSIDE RECORDS SUMMARY | 2024-04-20 15:09 | XMS_ITS | Referral Summary ---
Author Organization [facility] Address [address] [place] [address] Care Team Providers Care Acute Care Surgeon Name Role Phone Farnaz Pineda MD Primary Care Provider [phone] Fela Villegas BLADE BONER Unavailable [phone] Encounters Date Type Department Care Team Description 04/19/2024 Orders Only [facility] [address] [place] [address] Felicia Taveras MBBS HO (acute kidney injury) ([facility] (Primary Dx) 04/17/2024 Telephone [facility] Pulmonology [address] [place] [address] Felicia Taveras MBBS DME (DME-NEBULIZER ORDER-[facility]) 04/16/2024 Orders Only [facility] [address] [place] [address] Felicia Taveras MBBS Bronchiectasis without complication ([facility]) (Primary Dx) 04/16/2024 9:35 EDT - 04/16/2024 9:37 EDT Hospital Encounter [facility] [address] [place], [place] [id number] Felicia Taveras MBBS ILD (interstitial lung disease) ([facility]) Discharge Disposition: Home or Self Care 04/05/2024 Prep for Procedure [facility] [address] [place] [address] Felicia Taveras MBBS ILD (interstitial lung disease) ([facility]) (Primary Dx) 04/04/2024 15:25 EDT Phlebotomy Only [facility] - Outpatient Phlebotomy Drawing [address] [place] [address] Lab, [facility] Phlebotomy Moderate persistent reactive airway disease without complication; Chronic cough; Abnormal CT of the chest; ILD (interstitial lung disease) ([facility]) 04/04/2024 14:00 EDT Office Visit [facility] [address] [place] [address] Felicia Taveras MBBS Moderate persistent reactive airway disease without complication (Primary Dx); Chronic cough; Abnormal CT of the chest; ILD (interstitial lung disease) ([facility]) 03/15/2024 E-Consult [facility] Pulmonology & Critical Care - [address] [address] Diann Sol MD 03/15/2024 15:20 EDT Office Visit [facility] Cardiology - [address] [place], [place] [phone] Fela Villegas NP Paroxysmal atrial fibrillation ([facility]) (Primary Dx); Encounter for follow-up for aortic valve replacement from Last 3 Months Allergies No known active allergies Medications Medication Sig Dispensed Refills Start Date End Date Status WARFARIN SODIUM (COUMADIN ORAL) Take by mouth. As directed Active montelukast (SINGULAIR) 10 mg tablet Take 1 Tablet by mouth daily. Active omeprazole (PRILOSEC) 20 mg capsule Take 1 Capsule by mouth daily. Active levothyroxine (SYNTHROID) 50 mcg tablet Take 1 Tablet by mouth daily. Active venlafaxine (EFFEXOR) 75 mg tablet Take 1 Tablet by mouth daily. Active albuterol 90 mcg/actuation HFA aerosol inhaler inhaler INHALE 2 PUFF BY MOUTH EVERY 4 TO 6 HOURS NEEDED FOR COUGH/ WHEEZING OR FOR SHORTNESS OF BREATH 03/01/2024 Active BREZTRI AEROSPHERE 160-9-4.8 mcg/actuation HFA aerosol inhaler Inhale 2 Puffs as directed 2 times daily. 03/01/2024 Active oxybutynin (DITROPAN-XL) 10 mg CR tablet Take 1 Tablet by mouth daily. 08/16/2023 Active atorvastatin (LIPITOR) 20 mg tablet Take 1 Tablet by mouth at bedtime. 30 Tablet 5 03/15/2024 Active enoxaparin (LOVENOX) 80 mg/0.8 mL injection Inject 80 mg into the skin 2 times daily. Lovenox to cover for Warfarin Active sodium chloride 3 % nebulizer solutionIndications: Bronchiectasis without complication (HCC-CMS) Take 4 mL by nebulization 2 times daily. 240 mL 5 04/16/2024 Active amoxicillin-clavulan ate (AUGMENTIN) 875-125 mg per tabletIndications:Pn eumonia of left lung due to methicillin susceptible Staphylococcus aureus (MSSA), unspecified part of lung (HCC-CMS) Take 1 Tablet by mouth every 12 hours. 14 Tablet 04/19/2024 Active Active Problems Problem Noted Date Diagnosed Date Chronic cough 04/04/[address] of the chest 04/04/2024 Status post aortic valve replacement 03/27/2010 Overview: A [address] Marvin Valve Reactive airway disease 03/27/2010 Hyperlipidemia 03/27/2010 Overview: ICD10 Update Auto Replacement Social History Tobacco Use Types Packs/Day Years Used Date Smoking Tobacco: Former Cigarettes 1 54.5 S tarted: 1970 Smokeless Tobacco: Never Alcohol Use Standard Drinks/Week Comments Not Currently 0 (1 standard drink = 0.6 oz pur e alcohol) Interpersonal Safety Answer Date Record ed Physically Hurt Never 05/11/2020 Verbally Threaten Not on file 05/11/2020 Sex and Gender Information Value Date Recorded Sex Assigned at Not on file Gender Identity Male 07/02/2020 16:52 EDT Sexual Orientation Not on file Last Filed Vital Signs Vital Sign Reading Time Taken Comments Blood Pressure 126/70 04/16/2024 1505 EDT Pulse 67 04/04/2024 1410 EDT Temperature 36.4 ??C (97.6 ??F) 04/16/2024 1511 EDT Respiratory Rate 19 04/16/2024 1505 EDT Oxygen Saturation 95% 04/16/2024 1505 EDT Inhaled Oxygen Concentration - - Weight 87.3 kg (192 lb 6.4 oz) 04/16/2024 1022 E DT Height 172.7 cm (5' 8) 04/16/2024 1022 EDT Body Mass Index 29.25 04/16/2024 1022 EDT Functional Status Functional Status Response Date of Assess ment Because of a physical, menta l, or emotional condition, does this person have difficulty doing errands alone such as visiting a doctor's office or shopping? No 10/07/2017 Cognitive Status Response Date of Assessm ent Because of a physical, menta l, or emotional condition, does this person have serious difficulty concentrating, remembering, or making decisions? No 10/07/2017 Plan of Treatment Upcoming Encounters Date Type Department Care Team (Late st Contact Info) Description 03/18/2025 14:00 EDT Ancillary Procedure [facility] Cardiology - [address] [place], [place] [phone] 03/18/2025 14:40 EDT Office Visit [facility] Cardiology - [address] [place] [address] Fela Villegas, PANKAJ [address] [place] [address] Medical Devices Implanted Type Area Paddock Judge Device Identifier Shelf Expiration Date Model / Serial / Lot Aortic Valve Replacement, Berry Filter Procedures Procedure Name Priority Date/Time Associated Diagnosis Comments ECG REPORT - SCANNED 04/17/2024 10:45 EDT MISCELLANEOUS TEST, DECLO Routine 04/16/2024 13:46 EDT EXPANDED RESPIRATORY VIRAL PANEL, PCR (DOES NOT INCLUDE INFLUENZA OR RSV) Routine 04/16/2024 13:45 EDT NON DIGITAL COMPUTER SYSTEMS ANALYST/FNA CYTOLOGY Routine 04/16/2024 13:42 EDT DIFFERENTIAL, LAVAGE FLUID Routine 04/16/2024 13:42 EDT [facility] CULTURE SMEAR Today 04/16/2024 13:42 EDT AFB CULTURE/SMEAR, OTHER Routine 04/16/2024 13:42 EDT BACTERIAL CULTURE/SMEAR, RESPIRATORY Routine 04/16/2024 13:42 EDT [facility] AF[employer] CULTURE SMEAR Today 04/16/2024 13:41 EDT AFB CULTURE/SMEAR, OTHER Routine 04/16/2024 13:41 EDT BACTERIAL CULTURE/SMEAR, RESPIRATORY Routine 04/16/2024 13:41 EDT ADULT BRONCHOSCOPY Routine 04/16/2024 11 :00 EDT ILD (interstitial lung disease) (HCC-CMS) SSA/SSB PANEL Routine 04/04/2024 15:[address] of the chest ILD (interstitial lung disease) ([facility]) SCL 70 ANTIBODY, IGG, SERUM Routine 04/04/2024 15:[address] of the chest ILD (interstitial lung disease) ([facility]) BLASTING MACHINE OPERATOR ANTIBODY, IGG Routine 04/04/2024 15: [address] of the chest ILD (interstitial lung disease) ([facility]) CCP ANTIBODIES Routine 04/04/2024 15:[address] of the chest ILD (interstitial lung disease) ([facility]) ANTI NUCLEAR AB (OPAL), IFA Routine 04/04/2024 15:[address] of the chest ILD (interstitial lung disease) ([facility]) DOUBLE STRANDED DNA ANTIBODY, IGG Routine 04/04/2024 15:[address] of the chest ILD (interstitial lung disease) ([facility]) BASIC METABOLIC PANEL (BMP) Routine 04/04/2024 15:32 EDT Moderate persistent reactive airway disease without complication Chronic cough Abnormal CT of the chest ILD (interstitial lung disease) ([facility]) COMPLETE BLOOD COUNT AND DIFFERENTIAL Routine 04/04/2024 15:32 EDT Moderate persistent reactive airway disease without complication Chronic cough Abnormal CT of the chest ILD (interstitial lung disease) ([facility]) RHEUMATOID SCREEN/TITRE Routine 04/04/2024 15:[address] of the chest ILD (interstitial lung disease) ([facility]) ECG REPORT - SCANNED 03/18/2024 17:26 EDT EKG 12-LEAD Routine 03/15/2024 15:35 EDT Paroxysmal atrial fibrillation ([facility]) CT OUTSIDE IMAGES CHEST Routine 02/23/2024 14:46 EDT from Last 3 Months Results * ECG REPORT - SCANNED (04/17/2024 10:45 EDT) 04/17/2024 10:4 5 EDT Scan 2 Angle Shear Operator PROCEDURE/MINOR MARCO A GICAL ORDERABLES * MISCELLANEOUS TEST, DECLO (04/16/2024 13:46 EDT) Pathologist [facility] Miscellaneous Test, [place] SEE NOTE 04/17/2024 23:20 EDT [facility] Comment: Test ?Result ? Flag ??Unit ?? RefValue Aspergillus Ag, BAL ? <0.500 ? index ??<0.5 ? ADDITIONAL INFORMATION ?This is a qualitative test and the resulted index value is ?not indicative of disease severity. ??Serial testing is ?recommended for patients at high risk for invasive ?aspergillosis. ?This assay was performed using the FDA-cleared [employer] ?Platelia Aspergillus Galactomannan EIA. ?Test Performed by: ?[facility] ?[address] [id number] ?Radio Frequency Design Engineer: Cherrie Fernandez Ph.D.; CLIA# [id number] Fluid STRUCTURE OF UPPER LOBE OF LEFT LUNG / Unknown 04/16/2024 13:46 EDT 04/16/2024 14:05 EDT Felicia DELEON CHEMI STRY & BLOOD GAS ORDERABLES Performing Organization Address City/State/[facility] Co de Phone Number [facility] [address] [place] [address] * EXPANDED RESPIRATORY VIRAL PANEL, PCR (DOES NOT INCLUDE INFLUENZA OR RSV) (04/16/2024 13:45 EDT) Paraflu Type 1 Rslt (PF1RES) Negative Negative 04/16/2024 23:50 EDT [facility] Paraflu Type 2 Rslt (PF2RES) Negative Negative 04/16/2024 23:50 EDT [facility] Paraflu Type 3 Rslt (PF3RES) Negative Negative 04/16/2024 23:50 EDT [facility] Paraflu Type 4 Rslt Negative Negative 04/16 23:50 EDT [facility] Rhinovirus RNA Rslt (RVRES) Negative Negative 04/16/2024 23:50 EDT [facility] Metapneumovirus RNA Rslt (HMVRES) Negative Negative 04/16/2024 23:50 EDT [facility] Adenovirus DNA Rslt (ADVRES) Negative Negative 04/16/2024 23:50 EDT [facility] BAL STRUCTURE OF UPPER LOBE OF LEFT LUNG / Unknown 04/16/2024 13:45 EDT 04/16/2024 14:07 EDT Narrative [facility] - 04/16/2024 23:50 EDT This test was developed and its performance characteristics by [facility]. It has not been cleared or approved by the US Food and Drug Administration. FDA does not require this test to go through premarket FDA review. This test is used for clinical purposes. It should not be regarded as investigational or for research. This laboratory is certified under the Clinical Laboratory Improvement Amendments (CLIA) as qualified to perform high complexity clinical laboratory testing. Felicia DELEON MICRO BIOLOGY - GENERAL ORDERABLES [facility] [address] [place] [address] * NON DIGITAL COMPUTER SYSTEMS ANALYST/FNA CYTOLOGY (04/16/2024 13:42 EDT) Note to Patient The following pathology results have been interpreted by your pathologist and may be available to you before your health provider has had the opportunity to review them. Please allow time for your provider to receive these results and explore management options, if applicable. 04/18/2024 14:57 [facility] Final Diagnosis A. BRONCHOALVEOLAR LAVAGE, LEFT UPPER LOBE, ANTERIOR SEGMENT, CYTOLOGIC EVALUATION: - No malignant cells identified. - Occasional benign bronchial cells and abundant alveolar macrophages present. - Silver stain: Negative for fungal organisms. - Oil Red O stain: Less than 10% lipid-laden macrophages. 04/18/2024 14:57 [facility] Attestation By the signature below, the attending physician certifies that they have personally conducted a gross and/or microscopic examination of the described specimens and rendered or confirmed the above diagnosis. 04/18/2024 14:57 [facility] at 1457 Clinical History 04/18/2024 14:57 [facility] Gross Description A. 25 mL of cloudy, pale pink fluid with red fragments were received and processed by selective cellular enhancement technique. 04/18/2024 14:57 EDT [facility] Performing Lab [facility] 07/2024 14:57 EDT [facility] Scanned Images 04/18/2024 14:57 EDT [facility] BAL STRUCTURE OF UPPER LOBE OF LEFT LUNG / Unknown 04/16/2024 13:42 EDT 04/17/2024 10:56 EDT Felicia DELEON PATHO LOGY ORDERABLES [facility] [address] [place] [address] * (ABNORMAL) BACTERIAL CULTURE/SMEAR, RESPIRATORY (04/16/2024 13:42 EDT) Only the most recent of2 resultswithin the time period is included. Organism ID [id number] to 100,000 CFU/ml VITEK SUSCEPTIBILITY 04/18/2024 11:07 [facility] Comment: Usual kayce-pharyngeal david Smear Neutrophils Present(A) 04/18/2024 11:07 [facility] Comment:Corrected result: Pr eviously reported as Few Neutrophils Present on 04/16/2024 at 1558 EDT. Smear Squamous Epithelial Cells(A) 04/18/2024 11:07 [facility] Comment:Corrected result: Pr eviously reported as Few Squamous Epithelial Cells on 04/16/2024 at 1558 EDT. Smear Gram Positive Cocci(A) 04/18/2024 11:07 [facility] Comment:Corrected result: Pr eviously reported as Few Gram Positive Cocci on 04/16/2024 at 1558 EDT. Smear Respiratory epithelial cells absent(A) 04/18/2024 11:07 [facility] Smear Mucus present(A) 04/18/2024 11:07 [facility] Comment: Cytospin gram stain interpreted. KEELEY anterior segment - BAL BAL STRUCTURE OF UPPER LOBE OF LEFT LUNG / Unknown 04/16/2024 13:42 EDT 04/16/2024 14:08 EDT Freddylarryisabellafreddyneftali DELEON MICRO BIOLOGY - GENERAL ORDERABLES [facility] [address] [place] [address] * ADULT BRONCHOSCOPY (04/16/2024 11:00 EDT) Anatomical Region Laterality Modality X-Ray Angiograph y Narrative 04/16/2024 11:00 EDT Procedure Performed ? Flexible bronchoscopy, Bronchoalveolar lavage, and Bronchial Washing Indications for Exam chronic cough, abnormal CT chest Procedure Technique A physical exam was performed. Informed consent was obtained from the patient after explaining all the risks, benefits and alternatives to the procedure which the patient appeared to understand and so stated. On arrival to the procedure suite a standard time out was completed. The patient was connected to the monitoring devices. Continuous oxygen was provided. IV medications administered through a peripheral IV. Viscous lidocaine, Lidocaine 1%, fentanyl, and midazolam were used for local analgesia and conscious sedation (see RN JOSELUIS). The adult small Olympus bronchoscope was then inserted through the right nostril. Vocal cords appeared inflamed and mildly edematous. Epiglottis appeared inflamed - images in scanned media. Lidocaine 1% administered in a xsxhc-[id number]-go fashion. ?? 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 with coughing and expiration. There was erythema and inflammation seen in bilateral airways. It was significantly more in the left lung. Thick mucopurulent secretions seen in left main stem, left upper lobe and left lower lobe bronchi. Secretions suctioned out with difficulty. The bronchoscope had to be removed from airways and flushed multiple times. Bronchoalveolar lavage was performed in the left upper lobe anterior segment. 120 mL was instilled. ??50 mL aspirated. ??Mucous plugs were present. There was good return of alveolar fluid. Medications Moderate conscious sedation ??- Versed 3 mg IV, fentanyl 100 mcg IV; Time of start of sedation: 1:15 PM; Time of last dose of sedation: 1:37 PM Estimated Blood Loss - None Findings 1. Broncho-alveolar lavage from the left upper lobe anterior segment 2. Bronchial Washing 3. Thick mucopurulent secretions in left lung 4. Inflammation of bilateral airways more prominent in the left lung 5. 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 Procedure Diagnosis 1. Broncho-alveolar lavage from the left upper lobe anterior segment 2. Bronchial Washing 3. Thick mucopurulent secretions in left lung 4. Inflammation of bilateral airways more prominent in the left lung 5. 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 Recommendations Patient tolerated the procedure well. Specimen(s) removed - Microbiology-bacterial, AFB, fungal cultures of the following-, BAL from left upper lobe anterior segment, Bronchial Washing, Extended viral panel of the BAL, Cytology of the following specimens - , Bronchoalveolar lavage, Differential count of the bronchoalveolar lavage was also sent, and Aspergillus Ag in BAL I personally spent 22 minutes in continuous [id number] attendance with the patient during the administration of the moderate sedation and supervised the moderate sedation services that were monitored by an independent trained observer (RN) who had no other duties during the procedure I performed the procedure Signature: Freddy Taveras, This electronic signature authenticates all electronic and/or handwritten documentation, including orders, generated by the signer during the episode of care contained in this record. 04/17/2024 11:16:20 AM By Freddy Taveras Felicia DELEON GI RI OCEDURE ORDERABLES * RHEUMATOID SCREEN/TITRE (04/04/2024 15:32 EDT) Rheumatoid Factor <8.6 <12.0 IU/mL 04/04/2024 21:53 EDT [facility] Blood VENOUS BLOOD / Unknown Venipuncture / Unknown 04/04/2024 15:32 EDT 04/04/2024 16:26 EDT Felicia DELEON CHEMI STRY & BLOOD GAS ORDERABLES Performing Organization Address [facility] Co de Phone Number [facility] [address] [place], [place] [phone] * SSA/SSB PANEL (04/04/2024 15:32 EDT) Ro52 Anitbody, IgG <2.3 <20.0 CU 2023 11:35 EDT [facility] Comment:Results were obtaine d with the [employer] Flash Ro52 chemiluminescent immunoassay. Values obtained with different manufacturers' assay methods must not be used interchangeably. Ro60 Antibody, IgG <7.0 <20.0 CU 2023 11:35 EDT [facility] Comment:Results were obtaine d with the [employer] Flash Ro60 chemiluminescent immunoassay. Values obtained with different manufacturers' assay methods must not be used interchangeably. SSB Antibody, IgG <3.3 <20.0 CU 024 11:35 EDT [facility] Comment:Results were obtaine d with the [employer] Flash SS-B chemiluminescent immunoassay. Values obtained with different manufacturers' assay methods must not be used interchangeably. Blood VENOUS BLOOD / Unknown Venipuncture / Unknown 04/04/2024 15:32 EDT 04/04/2024 16:26 EDT Felicia Taveras [facility] IMMUN OLOGY AND SEROLOGY ORDERABLES Performing Organization Address City/[facility]/ZIP Co de Phone Number [facility] [address] [place], [place] [address] * CCP ANTIBODIES (04/04/2024 15:32 EDT) CCP Antibodies <2.5 <5.0 U/mL 04/05/2024 8:07 EDT [facility] Blood VENOUS BLOOD / Unknown Venipuncture / Unknown 04/04/2024 15:32 EDT 04/04/2024 16:26 EDT Felicia Taveras [facility] IMMUN OLOGY AND SEROLOGY ORDERABLES Performing Organization Address City/[facility]/ZIP Co de Phone Number [facility] [address] [place] [address] * BLASTING MACHINE OPERATOR ANTIBODY, IGG (04/04/2024 15:32 EDT) [facility] BLASTING MACHINE OPERATOR Antibody, IgG <6.0 <20.0 CU 024 11:35 EDT [facility] Comment:Results were obtaine d with the SimPrint[employer] Flash BLASTING MACHINE OPERATOR chemilumenscent immunoassay. Values obtained with different manufacturers' assay methods may not be used interchangeably. Blood VENOUS BLOOD / Unknown Venipuncture / Unknown 04/04/2024 15:32 EDT 04/04/2024 16:26 EDT Felicia Taveras [facility] IMMUN OLOGY AND SEROLOGY ORDERABLES Performing Organization Address [facility] Co de Phone Number [facility] [address] [place] [phone] * SCL 70 ANTIBODY, IGG, SERUM (04/04/2024 15:32 EDT) [facility] Scl 70 Ab, IgG, S <0.2 <1.0 (Negative ) U 04/05/2024 17:04 EDT [facility] Comment: Test Performed by: [facility] [address] [place] [id number] Radio Frequency Design Engineer: Cherrie Fernandez Ph.D.; CLIA# [id number] Blood VENOUS BLOOD / Unknown Venipuncture / Unknown 04/04/2024 15:32 EDT 04/04/2024 16:30 EDT Felicia Taveras [facility] IMMUN OLOGY AND SEROLOGY ORDERABLES Performing Organization Address City/[facility]/ZIP Co de Phone Number [facility] [place] [address] [place] [address] * DOUBLE STRANDED DNA ANTIBODY, IGG (04/04/2024 15:32 EDT) [facility] dsDNA Ab, IgG <22.0 <27.0 IU/mL 04/05/2024 11:35 [facility] Comment: Negative: <27.0 IU/mL Indeterminate: 27.0 - 35.0 IU/mL Positive: >35.0 IU/mL Results were obtained with [employer] Flash dsDNA chemiluminescent immunoassay. Values obtained with different manufacturers' assay methods may not be used interchangeably. Blood VENOUS BLOOD / Unknown Venipuncture / Unknown 04/04/2024 15:32 EDT 04/04/2024 16:26 EDT Felicia DELEON IMMUN OLOGY AND SEROLOGY ORDERABLES [facility] [address] [place] [address] * (ABNORMAL) COMPLETE BLOOD COUNT AND DIFFERENTIAL (04/04/2024 15:32 EDT) [facility] WBC 8.87 4.00 - 10.40 K/cmm 04/04/2024 16:26 [facility] RBC 4.25(L) 4.36 - 5.78 M/cmm 04/04/2024 16:26 [facility] Hemoglobin 13.2(L) 13.8 - 17.3 g/dL 04/04/2024 16:26 [facility] HCT 42.2 39.5 - 50.2 % 04/04/2024 16:26 [facility] MCV 99(H) 81 - 95 fL 04/04/2024 16:26 [facility] MCH 31.1 27.6 - 33.0 pg 04/04/2024 16:26 [facility] MCHC 31.3(L) 32.8 - 36.4 g/dL 04/04/2024 16:26 [facility] RDW-CV 15.6(H) <14.2 % 04/04/2024 16:26 [facility] RDW-SD 56.7(H) <46.0 fl 04/04/2024 16:26 [facility] PLT 205 141 - 377 K/cmm 04/04/2024 16: [facility] MPV 10.0 9.5 - 12.7 fL 04/04/2024 16:26 [facility] % Neutrophils 71.5 % 04/04/2024 16:26 [facility] % Lymphocytes 13.4 % 04/04/2024 16:26 [facility] % Monocytes 7.2 % 04/04/2024 16: [facility] % Eosinophils 6.7 % 04/04/2024 16:26 [facility] % Basophils 0.9 % 04/04/2024 16:26 [facility] % Immature Grans 0.3 <0.9 % 04/04/20 16:26 [facility] Absolute Neutrophils 6.34 2.20 - 8.85 K/cmm 04/04/2024 16:26 [facility] Absolute Lymphocytes 1.19 1.09 - 3.30 K/cmm 04/04/2024 16:26 [facility] Absolute Monocytes 0.64 0.10 - 0.80 K/cmm 04/04/2024 16:26 [facility] Absolute Eosinophils 0.59 0.03 - 0.61 K/cmm 04/04/2024 16:26 [facility] ABS Basophils 0.08 0.01 - 0.11 K/cmm 04/04/2024 16:26 [facility] Absolute Immature Grans 0.03 0.00 - 0.06 K/cmm 04/04/2024 16:26 [facility] Type of Differential: Auto 04/04/2024 16:26 [facility] Blood VENOUS BLOOD / Unknown Venipuncture / Unknown 04/04/2024 15:32 EDT 04/04/2024 16:22 EDT Felicia DELEON PACKA GES & DNA PROBE ORDERABLES [facility] [address] [place] [address] * ANTI NUCLEAR AB (OPAL), IFA (04/04/2024 15:32 EDT) Pathologist [facility] OPAL Interpretation Negative Negative 2023 14:28 EDT [facility] Comment:No titer performed, OPAL Screen is negative. Blood VENOUS BLOOD / Unknown Venipuncture / Unknown 04/04/2024 15:32 EDT 04/04/2024 16:26 EDT Narrative [facility] - 04/05/2024 14:28 EDT Results were obtained with the Quofore NOVA Lite HEp-2 OPAL Kit by indirect immunofluorescence. Felicia DELEON IMMUN OLOGY AND SEROLOGY ORDERABLES [facility] [address] [place] [address] * (ABNORMAL) BASIC METABOLIC PANEL (BMP) (04/04/2024 15:32 EDT) [facility] Sodium 138 136 - 145 mmol/L 04/04/2024 17:01 [facility] Potassium 4.7 3.5 - 5.0 mmol/L 04/04/2024 17:01 [facility] Chloride 104 96 - 110 mmol/L 04/04/2024 17:01 [facility] CO2 Total 27 22 - 32 mmol/L 04/04/2024 17:01 [facility] Anion Gap 7 5 - 14 mmol/L 04/04/2024 17:01 [facility] Glucose 74 70 - 99 mg/dl 04/04/2024 17:01 [facility] Calcium 9.1 8.5 - 10.5 mg/dL 04/04/2024 17:01 EDT [facility] BUN 22 10 - 26 mg/dL 04/04/2024 17:01 EDT [facility] Creatinine 1.38(H) 0.66 - 1.25 mg/dL 04/04/2024 17:01 EDT [facility] eGFR 54(L) >60 mL/min/1.73 m2 04/04/2024 17:01 EDT [facility] Blood VENOUS BLOOD / Unknown Venipuncture / Unknown 04/04/2024 15:32 EDT 04/04/2024 16:28 EDT Felicia DELEON CHEMI STRY & BLOOD GAS ORDERABLES [facility] [address] [place] [address] * ECG REPORT - SCANNED (03/18/2024 17:26 EDT) 03/18/2024 17:2 6 EDT Scan 2 Angle Shear Operator PROCEDURE/MINOR MARCO A GICAL ORDERABLES * EKG 12-LEAD (03/15/2024 15:35 EDT) 03/15/2024 15:3 5 EDT Narrative [facility] EKG - 03/16/2024 11:42 EDT ? [facility] ? Test Date: ?2024-03-15 Pat Name: ? DILLAN AL ? Department: ?? Pierre Card ? Room: ? Gender: ? Male ? Seating And Mobility Technologist: ?? [id number] : ?1950 ? Requested By: GIULIA GALLARDO A Order Number: [id number] ? Reading MD: ?? ALVARO LECHUGA MD ? Measurements Intervals ?Quinlan ? Rate: ? 63 ? P: ?-5 RI: ? 187 ?QRS: ?-16 QRSD: ? 117 ?T: ?30 QT: ? 400 ? QTc: ?409 ? Interpretive Statements SINUS RHYTHM INFERIOR MYOCARDIAL INFARCTION , PROBABLY OLD Automated Interpretation. ??Provider Interpretation to follow. Compared to ECG 03/11/2022 15:27:57 Myocardial infarct finding now present I reviewed the tracing and have either agreed or edited the findings in this report. Electronically Signed On 03-16-2024 11:42:49 EDT by ALVARO LECHUGA MD. Procedure Note Alvaro Lechuga MD - 03/16/[address] [facility] Test Date: 2024-03-15 Pat Name: DILLAN AL Department: I-Stand Room: Gender: Male Seating And Mobility Technologist: [id number] : 1950 Requested By: GIULIA Mccormick Order Number: [id number] Reading MD: ALVARO LECHUGA MD Measurements Intervals Quinlan Rate: 63 P: -5 RI: 187 QRS: -16 QRSD: 117 T: 30 QT: 400 QTc: 409 Interpretive Statements SINUS RHYTHM INFERIOR MYOCARDIAL INFARCTION , PROBABLY OLD Automated Interpretation. Provider Interpretation to follow. Compared to ECG 03/11/2022 15:27:57 Myocardial infarct finding now present I reviewed the tracing and have either agreed or edited the findings inthis report. Electronically Signed On 03-16-2024 11:42:49 EDT by ALVARO KNOTT. Fela Villegas NP CARDIAC ECG ORDERABL ES [facility] EKG * CT OUTSIDE IMAGES CHEST (02/23/2024 14:46 EDT) Narrative 03/09/2024 14:46 EDT This is a non-reportable exam. External Imaging IMG OTHER IMAGING OR DERABLES from Last 3 Months Care Teams Acute Care Surgeon Relationship Specialty Start Date End Date Farnaz Pineda MD [address] [place] [id number] PCP - General 11/18/09 Fela Villegas NP [address] [place] [address] [phone] Spotter Driver Cardiovascular Disease 03/12/22
--- OUTSIDE RECORDS SUMMARY | 2024-04-20 15:09 | XMS_ITS | Encounter Summary ---
Author Organization [facility] Address [facility] [place] [address] Care Team Providers Care Cellophane Worker Name Role Phone Farnaz Pineda MD Primary Care Provider [phone] Encounter Details Date Type Department Care Team (Late st Contact Info) Description 11/16/2012 [place] [address] Jessica Baron PA [facility] PRE-[place]MISSION [place] [address] History of prosthetic aortic valve Anesthesia Record Procedure Summary Procedure Name Responsible Anesthesiologist Anesthesia Start Time Anesthesia Stop Time ROBOTIC LAPAROSCOPIC PROSTATECTOMY (WRVU 22.46) (Pelvis) Susan Strange MD 11/20/12 0723 11/20/12 1156 Events Date Time Event Comment 11/20/2012 0720 0723 Start 1156 Stop Meds * Agents No agents on file. * Blood No blood administrations on file. Lines, Drains, and Airways Type Details Placement Removal (RETIRED) Peripheral IV Line - Single Lumen 11/20/12; 11/21/12; 1802 11/20/12 0000 by Erin Cervantes RN 11/21/12 1802 by Christin Awad RN Drain/Device Site 11/20/12; anterior; abdomen; collapsible closed device; 11/21/12; 1801 11/20/12 0000 by Marcos Perez RN 11/21/12 1801 by Christin Awad RN (RETIRED) Peripheral IV Line - Single Lumen 11/20/12; 0702; 11/21/12; 0840 11/20/12 0702 by Aislinn Guillen RN 11/21/12 0840 by Kelsey Chester LNA Urethral Catheter 11/20/12; 0755; indwelling double lumen catheter; 100% silicone; 16; inserted; 1; drainage bag to dependent drainage; 12/27/12; 1740 11/20/12 0755 by Erin Cervantes RN 12/27/12 1740 by Agnieszka Douglas RN Incision 11/20/12; 0800; abdo men (Trocar sites x 6); 06/07/22 (LDA cleanup utility RA#[id number]); 1715 (LDA cleanup utility RA#[id number]) 11/20/12 0800 by Erin Cervantes RN 06/07/22 1715 by Andrea Choi documented in this encounter Social History Tobacco Use Types Packs/Day Years Used Date Smoking Tobacco: Former Cigarettes Q uit: 11/02/1986 Sex and Gender Information Value Date Recorded Sex Assigned at Not on file Gender Identity Not on file Sexual Orientation Not on file documented as of this encounter Plan of Treatment Not on file documented as of this encounter Visit Diagnoses Diagnosis History of prosthetic aortic valve Heart valve replaced by other means documented in this encounter Care Teams Cellophane Worker Relationship Specialty Start Date End Date Farnaz Pineda MD [address] [place] [address] PCP - General 10/26/12 documented as of this encounter
--- OUTSIDE RECORDS SUMMARY | 2024-04-20 15:09 | XMS_ITS | Encounter Summary ---
Author Organization [facility] [place] [address] Care Team Providers Care Reimbursement Specialist Name Role Phone Farnaz Pineda MD Primary Care Provider [phone] Encounter Details Date Type Department Care Team (Late st Contact Info) Description 11/02/2012 9:10 AM EST Clinical Support Hematology [place] [phone] Social History Tobacco Use Types Packs/Day Years [...] on filedocumented in this encounter Care Teams Reimbursement Specialist Relationship Specialty Start Date End Date Farnaz Pineda MD [address] [place] [address] PCP - General 10/26/12 documented as of this encounter
--- OUTSIDE RECORDS SUMMARY | 2024-04-20 15:09 | XMS_ITS | Encounter Summary ---
Author Organization [facility] [place] [address] Care Team Providers Care Career Development Specialist Name Role Phone Farnaz Pineda MD Primary Care Provider [phone] Reason for Visit * Reason Comments Prostate Cancer Encounter Details Date Type Department Care Team (Late st Contact Info) Description 11/02/2012 9:50 AM EST Office Visit Hematology [place] [phone] Ross Madrid MD [facility] [place] [address] Prostate cancer (Primary Dx) Discharge Disposition: Home Social History Tobacco Use Types Packs/Day Years Used Date Smoking Tobacco: Former Cigarettes Q uit: 11/02/1986 Sex and Gender Information Value Date Recorded Sex Assigned at Not on file Gender Identity Not on file Sexual Orientation Not on file documented as of this encounter Last Filed Vital Signs Vital Sign Reading Time Taken Comments Blood Pressure 134/74 11/02/2012 10:49 AM EST Pulse 79 11/02/2012 10:49 AM EST Temperature - - Respiratory Rate - - Oxygen Saturation - - Inhaled Oxygen Concentration - - Weight 98 kg (216 lb) 11/02/2012 10:49 AM EST Height 174 cm (5' 8.5) 11/02/2012 10:49 AM EST Body Mass Index 32.36 11/02/2012 10:49 AM EST documented in this encounter Progress Notes * Benito Lambert - 11/02/2012 1:26 PM ESTAddended by: BENITO LAMBERT on: 11/02/2012 01:26 PM Modules accepted: Orders * Ross Madrid MD - 11/02/2012 12:03 PM EST This is a pleasant 62 year old man with a history of high risk prostate cancer who presents for a discussion of treatment options. He has a history of a metal aortic valve and is on coumadin for ~10 years, and has had no further cardiac issues. He is otherwise in excellent health. His PSA was foundto be 7.1, thus he underwent a TRUS biopsy on 10/19/12. This revealed Shasha 4+5=9 prostate adenocarcinoma as below per outside path report: R apex - Shasha 3+3=7, 9% 2/2 cores L latl mid - Sarona 4+4=8, 19% 1/1 core L mid - Shasha 4+5=9, 10% 1/1 cores His DAVIAN has no reported nodules. He feels well and denies bothersome voiding symptoms. He denies UTI, dysuria, or gross hematuria. He has erectile dysfunction. His questionnaire data is not yet available. He underwent a bone scan that revealed no osseous metastasis, and had a pelvic CT that showed no lymphadenopathy. See scanned reports. He denies back or bone pain. PMH: above PSH: above (AVR mechanical) Med: prilosec, coumadin, singulair, advair, aspirin, synthroid SH: +history of tobacco Review of Systems Constitutional: Negative for fever, chills and fatigue. Eyes: Negative for visual disturbance. Respiratory: Negative for shortness of breath. Cardiovascular: Negative for chest pain. Gastrointestinal: Negative for abdominal pain and abdominal distention. Genitourinary: Negative for dysuria, hematuria and difficulty urinating. Musculoskeletal: Negative for back pain. Neurological: Negative for dizziness. Psychiatric/Behavioral: Negative for confusion. Physical Exam Constitutional: He is oriented to person, place, and time. He appears well- developed and well-nourished. HENT: Head: Normocephalic and atraumatic. Eyes: Pupils are equal, round, and reactive to light. Neck: Normal range of motion. Neck supple. Cardiovascular: Normal rate and regular rhythm. Pulmonary/Chest: Effort normal and breath sounds normal. Abdominal: Soft. He exhibits no distension. There is no tenderness. Genitourinary: Penis normal. 40g, smooth NT Musculoskeletal: Normal range of motion. Neurological: He is alert and oriented to person, place, and time. Skin: Skin is warm and dry. Psychiatric: He has a normal mood and affect. A/P: High risk prostate cancer, Shasha 4+5=9, PSA 7.1, T1c - We discussed treatment options in detail including radical prostatectomy and primary radiation therapy. Dr. Chase has already spoken with him about the details of external beam radiotherapy which would include 2 years of androgen deprivation therapy. We discussed while this might obviate the need for surgery and associated risks (bleeding/stroke given his aortic valve), the literature suggests that a multimodal approach to high risk cancer with surgery and adjuvant therapy may be beneficial, furthermore surgical cure can be obtained in about 1/3 of patients with high risk disease. We discussed that the chronic radiation effects on the bladder with anticoagulation does increase risk of hemorrhagic/radiation cystitis in the future. We reviewed the details of surgical therapy and expectations for the betito- and post-operative period. We discussed that he has clinically localized disease, though there is a risk of micrometastatic disease given his Shasha 9 diagnosis. I counseled the patient that there is a relatively high likelihood of requiring adjuvant radiation, which would likely be performed in conjunction with ADT, based on an increased risk of extraprostatic disease. Regarding surgery, we discussed open vs minimally invasive approaches, specifically robotic assisted laparoscopic prostatectomy . We reviewed the rationale for robotic surgery, in particular decrease risk of blood loss and potentially expedited recovery. We discussed the role of lymphadenectomy. We reviewed possible complications or side effects ofsurgery including bleeding, infection, damage to local structures including rectum, ureter, bladder, bowel, nerves and blood vessels, urinary leak, lymph leak, bladder neck contracture, recurrence, need for additional treatment, anesthesia complications, blood clot, hernia, etc. The need for bridging of coumadin giving his metal valve was reviewed, and risks of bleeding and/or stroke were discussed. We would attempt to restart lovenox promptly after surgery as clinically allowed. The patient does desire to pursue surgical treatment. We will obtain preadmission testing and communicate with his PCP and/or stitchdown toe former regarding clearance and a bridging regimen for his coumadin.His and his 's questions were answered in detail. 46 of 50 minutes spent in counseling and coordination of care documented in this encounter Plan of Treatment Not on file documented as of this encounter Procedures Procedure Name Priority Date/Time Associated Diagnosis Comments DIFFERENTIAL, AUTOMATED Routine 11/02/2012 1:45 PM EST APTT Routine 11/02/2012 1:45 PM EST Prostate cancer PROTHROMBIN TIME Routine 11/02/2012 1:45 PM EST Prostate cancer CBC (WITH DIFF) Routine 11/02/2012 1:45 PM EST Prostate cancer BASIC METABOLIC PANEL (NON-FASTING) STAT 11/02/2012 1:45 PM EST Prostate cancer EKG 12-LEAD Routine 11/02/2012 1:39 PM EST Prostate cancer documented in this encounter Results * XR chest routine PA & lateral (11/02/2012 1:58 PM EST) Anatomical Region Laterality Modality Chest N/A Radiographic Mary ging 11/02/2012 1:58 PM EST Narrative 11/02/2012 5:10 PM EST Examination CHEST ROUTINE 2 VIEWS Clinical History History of kidney stones Comparison None. Technique PA and lateral of the chest. Findings Intact sternotomy wires are present. The lungs are clear. The cardiomediastinal silhouette, nanci and pulmonary vasculature are unremarkable. No pleural effusion or pneumothorax. ?? Impression No acute cardiopulmonary pathology. Film and interpretation reviewed by the attending Procedure Note Megan Du MD - 11/02/2012 Examination CHEST ROUTINE 2 VIEWS Clinical History History of kidney stones Comparison None. Technique PA and lateral of the chest. Findings Intact sternotomy wires are present. The lungs are clear. Thecardiomediastinal silhouette, nanci and pulmonary vasculature are unremarkable. No pleural effusion or pneumothorax. Impression No acute cardiopulmonary pathology. Film and interpretation reviewed by the attending Ross Madrid MD IMG DX ORDERABLES * (ABNORMAL) Differential, Automated (11/02/2012 1:45 PM EST) Neutrophils % 62.9 34.0 - 71.0 % CERNER MILLENNIUM Neutr Abs (ANC) 5.80 1.50 - 6.30 x10(3)/mc L CERNER MILLENNIUM Lymphocytes % 17.2(L) 19.0 - 53.0 % CERNER MILLENNIUM Lymphocytes Abs 1.6 1.0 - 3.6 x10(3)/mc L CERNER MILLENNIUM Monocytes % 7.0 4.0 - 13.0 % CERNER MILLENNIUM Monocyte Abs 0.6 0.2 - 1.0 x10(3)/mc L CERNER MILLENNIUM Eosinophils % 10.9(H) 0.0 - 7.0 % CERNER MILLENNIUM Eosinophils Abs 1.0(H) 0.0 - 0.5 x10(3)/mc L CERNER MILLENNIUM Basophils % 1.8 0.0 - 2.0 % CERNER MILLENNIUM Basophils Abs 0.2 0.0 - 0.2 x10(3)/mc L CERNER MILLENNIUM [...] x10(3)/mc L CERNER MILLENNIUM Blood specimen (specimen) 11/02/2012 1:45 PM EST 11/02/2012 1:50 PM EST Ross Madrid MD HEMATOLOGY ORDERABLE S CERNER MILLENNIUM * APTT (11/02/2012 1:45 PM EST) PTT 35 25 - 35 sec CERNER MILLENNIUM Comment: Recommended therapeutic PTT range for full dose unfractionated heparin is 80-114 seconds. Blood specimen (specimen) 11/02/2012 1:45 PM EST 11/02/2012 1:50 PM EST Narrative Resulting Agency Comment Spec In Lab Ross Madrid MD HEMATOLOGY ORDERABLE S Performing Organization Address [facility] de Phone Number [facility] * (ABNORMAL) Prothrombin Time (11/02/2012 1:45 PM EST) PT 23.8(H) 11.9 - 14.7 sec CERNER MILLENNIUM Comment: [facility] Transfusion Committee Guidelines: INR less than 2.0, PTT less than OR equal to 43.5 seconds, or Fibrinogen greater than or equal to 100 mg/dl indicate adequate procoagulant activity for hemostasis in patients without underlying bleeding disorders. INR 2.1(H) 0.9 - 1.1 CERNER MILLENNIUM Blood specimen (specimen) 11/02/2012 1:45 PM EST 11/02/2012 1:50 PM EST Narrative Resulting Agency Comment Spec In Lab Ross Madrid MD HEMATOLOGY ORDERABLE S Performing Organization Address [facility] de Phone Number [facility] * (ABNORMAL) Basic Metabolic Panel (non-fasting) (11/02/2012 1:45 PM EST) Glucose Lvl 126 60 - 199 mg/dL CERNER MILLENNIUM Comment:Diabetes: >=200 mg/d L plus symptoms BUN 19 10 - 20 mg/dL CERNER MILLENNIUM Creatinine 1.42 0.80 - 1.50 mg/dL CERNER MILLENNIUM Comment: Please note that the pediatric reference intervals supplied above were not validated at [facility]. Results from pediatric patients should be interpreted in conjunction to the patient's age, height and muscle mass. Sodium 137 135 - 145 mmol/L CERNER MILLENNIUM Potassium 4.2 3.5 - 5.0 mmol/L CERNER MILLENNIUM Comment: Please note: ??Patients with WBC >100,000 may have falsely elevated Potassium levels. ??For accurate Potassium quantification in these patients send serum separator tube (gold top) for subsequent determinations. ??Contact the Clinical Chemistry Laboratory if there are any questions. Chloride 101 98 - 107 mmol/L CERNER MILLENNIUM CO2 26 22 - 31 mmol/L CERNER MILLENNIUM Anion Gap 10 5 - 15 mmol/L CERNER MILLENNIUM Calcium 9.0 8.5 - 10.5 mg/dL CERNER MILLENNIUM Estimated GFR 51(L) >=60 CERNER MILLENNIUM Comment: The National Kidney [...] J Am Soc Nephrol;6:1963-72. Blood specimen (specimen) 11/02/2012 1:45 PM EST 11/02/2012 1:50 PM EST Narrative Resulting Agency Comment Spec In Lab Ross Madrid MD CHEMISTRY ORDERABLES Performing Organization Address [facility] Co de Phone Number [facility]ERDAK[facility] HARTMANENNIUM * (ABNORMAL) CBC (with Diff) (11/02/2012 1:45 PM EST) WBC 9.2 4.0 - 10.0 x10(3)/mcL CERNER MILLENNIUM RBC 5.29 4.63 - 6.08 x10(6)/mcL CERNER MILLENNIUM Hemoglobin 16.2 13.7 - 17.5 gm/dL CERNER MILLENNIUM Hematocrit 49.6 40.0 - 51.0 % CERNER MILLENNIUM MCV 93.8(H) 79.0 - 92.0 fL CERNER MILLENNIUM MCH 30.6 25.6 - 32.2 pg CERNER MILLENNIUM MCHC 32.7 32.0 - 36.5 gm/dL CERNER MILLENNIUM Platelets 233 145 - 370 x10(3)/mcL CERNER MILLENNIUM RDWSD 53.2(H) 35.0 - 46.0 fL CERNER MILLENNIUM RDWCV 15.5(H) 10.9 - 14.4 % CERNER MILLENNIUM MPV 10.1 9.0 - 12.0 fL CERNER MILLENNIUM Blood specimen (specimen) 11/02/2012 1:45 PM EST 11/02/2012 1:50 PM EST Narrative Resulting Agency Comment Spec In Lab Ross Madrid MD HEMATOLOGY ORDERABLE S Performing Organization Address [facility] Co de Phone Number DANETTE VALENCIA * EKG 12 Lead (11/02/2012 1:39 PM EST) Ventricular rate 77 BPM MUSE SYSTEM Atrial Rate 77 BPM MUSE SYSTEM P-R Interval 184 ms MUSE SYSTEM QRS Duration 102 ms MUSE SYSTEM Q-T Interval 360 ms MUSE SYSTEM QTC Calculated (Bezet) 407 ms MUSE SYSTEM Calculated P [place] 46 degrees MUSE SYSTEM Calculated R [place] 11 degrees MUSE SYSTEM Calculated T [place] 102 degrees MUSE SYSTEM INTERPRETATION Normal sinus rhythm Nonspecific T wave abnormality Abnormal ECG No previous ECGs available Confirmed by MD Jacques Jon ([id number]) on 11/03/2012 5:26:29 PM MUSE SYSTEM 11/02/2012 1:39 PM EST 11/03/2012 5:26 PM EST Ross Madrid MD ECG ORDERABLES MUSE SYSTEM documented in this encounter Visit Diagnoses Diagnosis Prostate cancer- Primary Malignant neoplasm of prostate Prostate cancer Malignant neoplasm of prostate documented in this encounter Care Teams Career Development Specialist Relationship Specialty Start Date End Date Farnaz Pineda MD [address] [place] [address] PCP - General 10/26/12 documented as of this encounter
--- OUTSIDE RECORDS SUMMARY | 2024-04-20 15:09 | XMS_ITS | Clinical Summary ---
Author Organization [facility] Address [address] [place] [address] Care Team Providers Care Application Operations Engineer Name Role Phone Farnaz Pineda MD Primary Care Provider [phone] Fela Villegas REGISTERED NURSE RENAL Unavailable Allergies No known active allergies Medications Medication [...] Hyperlipidemia 03/27/2010 Overview: ICD10 Update Auto Replacement Encounters Date Type Department Care Team Description 04/19/2024 Orders Only [facility] Operating Room [address] [place] [address] Felicia Taveras MBBS HO (acute kidney injury) ([facility]) (Primary Dx) 04/17/2024 Telephone [facility] Pulmonology [address] [place], [place] [id number] Felicia Taveras MBBS DME (DME-NEBULIZER ORDER-[facility]) 04/16/2024 9:35 EDT - 04/16/2024 9:37 EDT Hospital Encounter [facility] Operating Room [address] [facility], [place] [address] Felicia Taveras MBBS ILD (interstitial lung disease) ([facility]) Discharge Disposition: Home or Self Care 04/16/2024 Orders Only [facility] Pulmonology [address] [facility], [place] [address] Felicia Taveras MBBS Bronchiectasis without complication ([facility]) (Primary Dx) 04/05/2024 Prep for Procedure [facility] Pulmonology [address] [place] [address] Felicia Taveras MBBS ILD (interstitial lung disease) ([facility]) (Primary Dx) 04/04/2024 15:25 EDT Phlebotomy Only [facility] - Outpatient Phlebotomy Drawing [address] [place] [address] Lab, [facility] Moderate persistent reactive airway disease without complication; Chronic cough; Abnormal CT of the chest; ILD (interstitial lung disease) ([facility]) 04/04/2024 14:00 EDT Office Visit [facility] Pulmonology [address] [place] [address] Felicia Taveras MBBS Moderate persistent reactive airway disease without complication (Primary Dx); Chronic cough; Abnormal CT of the chest; ILD (interstitial lung disease) ([facility]) 03/15/2024 15:20 EDT Office Visit [facility] Cardiology - [address] [place] [address] Fela Villegas NP Paroxysmal atrial fibrillation ([facility]) (Primary Dx); Encounter for follow-up for aortic valve replacement 03/15/2024 E-Consult [facility] Pulmonology & Critical Care - [address] [address] Diann Sol MD from Last 3 Months Surgical History Surgery Date Site/Laterality Comments AORTIC VALVE REPLACEMENT PROSTATECTOMY HERNIA REPAIR Social History Tobacco Use Types Packs/Day Years [...] 16:52 EDT Sexual Orientation Not on file Obstetrics History Last Filed Vital Signs Vital Sign Reading [...] Body Mass Index 29.25 04/16/2024 1022 EDT Plan of Treatment Upcoming Encounters Date Type Department Care Team (Late st Contact Info) Description 03/18/2025 14:00 EDT Ancillary Procedure [facility] Cardiology - [facility] [address] [place] [address] 03/18/2025 14:40 EDT Office Visit [facility] Cardiology - [address] [place] [address] Fela Villegas, PANKAJ [address] [facility] [address] [place] [address] Health Maintenance Due Date Last Done Comments Asthma Action Plan 1950 Hepatitis C Screen 1950 Lung Function Test (Spirometry) 1950 RSV Immunization ( o r 60+ Years) (1 - 1-dose 60+ series) 2010 COVID-19 Vaccine (2 - 2022-2 4 season) 2023 08/05/2021 Fall Risk Screening 04/04/2025 04/04/2024, 03/11/2022, 03/05/2021, Additional history exists Medical Devices Implanted Type Area Picker And Packer Device Identifier Shelf Expiration Date Model / Serial / Lot Aortic Valve Replacement, Berry Filter Procedures Procedure Name Priority Date/Time Associated Diagnosis Comments ECG REPORT - SCANNED 04/17/2024 10:45 EDT MISCELLANEOUS TEST, GARRETT Routine 04/16/2024 13:46 EDT EXPANDED RESPIRATORY VIRAL PANEL, PCR (DOES NOT INCLUDE INFLUENZA OR RSV) Routine 04/16/2024 13:45 EDT NON FOOD CONCESSION MANAGER/FNA CYTOLOGY Routine 04/16/2024 13:42 EDT DIFFERENTIAL, LAVAGE FLUID Routine 04/16/2024 13:42 EDT [employer] CULTURE SMEAR Today 04/16/2024 13:42 EDT AFB CULTURE/SMEAR, OTHER Routine 04/16/2024 13:42 EDT BACTERIAL CULTURE/SMEAR, RESPIRATORY Routine 04/16/2024 13:42 EDT [employer] CULTURE SMEAR Today 04/16/2024 13:41 EDT AFB CULTURE/SMEAR, OTHER Routine 04/16/2024 13:41 EDT BACTERIAL CULTURE/SMEAR, RESPIRATORY Routine 04/16/2024 13:41 EDT ADULT BRONCHOSCOPY Routine 04/16/2024 11 :00 EDT ILD (interstitial lung disease) ([facility]) SSA/SSB PANEL Routine 04/04/2024 15:[address] of the chest ILD (interstitial lung disease) ([facility]) SCL 70 ANTIBODY, IGG, SERUM Routine 04/04/2024 15:[address] of the chest ILD (interstitial lung disease) ([facility]) DISHWASHER PREPARER ANTIBODY, IGG Routine 04/04/2024 15: [address] of the chest ILD (interstitial lung disease) ([facility]) CCP ANTIBODIES Routine 04/04/2024 15:[address] of the chest ILD (interstitial lung disease) ([facility]) ANTI NUCLEAR AB (OPAL), IFA Routine 04/04/2024 15:[address] of the chest ILD (interstitial lung disease) ([facility]) DOUBLE STRANDED DNA ANTIBODY, IGG Routine 04/04/2024 15:[address] of the chest ILD (interstitial lung disease) ([facility]) BASIC METABOLIC PANEL (BMP) Routine 04/04/2024 15:32 EDT Moderate persistent reactive airway disease without complication Chronic cough Abnormal CT of the chest ILD (interstitial lung disease) ([facility]) COMPLETE BLOOD COUNT AND DIFFERENTIAL Routine 04/04/2024 15:32 EDT Moderate persistent reactive airway disease without complication Chronic cough Abnormal CT of the chest ILD (interstitial lung disease) ([facility]) RHEUMATOID SCREEN/TITRE Routine 04/04/2024 15:[address] of the chest ILD (interstitial lung disease) ([facility]) ECG REPORT - SCANNED 03/18/2024 17:26 EDT EKG 12-LEAD Routine 03/15/2024 15:35 EDT Paroxysmal atrial fibrillation ([facility]) CT OUTSIDE IMAGES CHEST Routine 02/23/2024 14:46 EDT from Last 3 Months Results * ECG REPORT - SCANNED (04/17/2024 10:45 EDT) 04/17/2024 10:4 5 EDT Scan 2 Balloon Tester PROCEDURE/MINOR MARCO A GICAL ORDERABLES * MISCELLANEOUS TEST, GARRETT (04/16/2024 13:46 EDT) Pathologist [facility] Miscellaneous Test, [place] SEE NOTE 04/17/2024 23:20 EDT [facility] Comment: Test ?Result ? Flag ??Unit ?? RefValue Aspergillus Ag, BAL ? <0.500 ? index ??<0.5 ? ADDITIONAL INFORMATION ?This is a qualitative test and the resulted index value is ?not indicative of disease severity. ??Serial testing is ?recommended for patients at high risk for invasive ?aspergillosis. ?This assay was performed using the FDA-cleared [employer] ?Platelia Aspergillus Galactomannan EIA. ?Test Performed by: ?[facility] ?[address] [place] [address] ?Field Sales Representative: Cherrie Fernandez Ph.D.; IA# [id number] Fluid STRUCTURE OF UPPER LOBE OF LEFT LUNG / Unknown 04/16/2024 13:46 EDT 04/16/2024 14:05 EDT Felicia DELEON CHEMI STRY & BLOOD GAS ORDERABLES [facility] [address] [place] [address] * EXPANDED RESPIRATORY VIRAL PANEL, PCR (DOES NOT INCLUDE INFLUENZA OR RSV) (04/16/2024 13:45 EDT) Paraflu Type 1 Rslt (PF1RES) Negative Negative 04/16/2024 23:50 EDT [facility] Paraflu Type 2 Rslt (PF2RES) Negative Negative 04/16/2024 23:50 EDT [facility] Paraflu Type 3 Rslt (PF3RES) Negative Negative 04/16/2024 23:50 EDT [facility] Paraflu Type 4 Rslt Negative Negative 04/16 23:50 EDT [facility] Rhinovirus RNA Rslt (RVRES) Negative Negative 04/16/2024 23:50 EDT [facility] Metapneumovirus RNA Rslt (HMVRES) Negative Negative 04/16/2024 23:50 EDT [facility] Adenovirus DNA Rslt (ADVRES) Negative Negative 04/16/2024 23:50 EDT [facility] BAL STRUCTURE OF UPPER LOBE OF LEFT LUNG / Unknown 04/16/2024 13:45 EDT 04/16/2024 14:07 EDT Narrative [facility] - 04/16/2024 23:50 EDT This test was developed and its performance characteristics by [facility]. It has not been cleared or [...] Felicia DELEON MICRO BIOLOGY - GENERAL ORDERABLES [facility] [address] [place] [address] * NON FOOD CONCESSION MANAGER/FNA CYTOLOGY (04/16/2024 13:42 EDT) Note to Patient The following pathology results have been interpreted by your pathologist and may be available to you before your health provider has had the opportunity to review them. Please allow time for your provider to receive these results and explore management options, if applicable. 04/18/2024 14:57 [facility] Final Diagnosis A. BRONCHOALVEOLAR LAVAGE, LEFT UPPER LOBE, ANTERIOR SEGMENT, CYTOLOGIC EVALUATION: - No malignant cells identified. - Occasional benign bronchial cells and abundant alveolar macrophages present. - Silver stain: Negative for fungal organisms. - Oil Red O stain: Less than 10% lipid-laden macrophages. 04/18/2024 14:57 [facility] Attestation By the signature below, the attending physician certifies that they have personally conducted a gross and/or microscopic examination of the described specimens and rendered or confirmed the above diagnosis. 04/18/2024 14:57 [facility] at 1457 Clinical History 04/18/2024 14:57 EDT [facility] Gross Description A. 25 mL of cloudy, pale pink fluid with red fragments were received and processed by selective cellular enhancement technique. 04/18/2024 14:57 EDT [facility] Performing Lab [facility] 07/2024 14:57 EDT [facility] Scanned Images 04/18/2024 14:57 EDT [facility] BAL STRUCTURE OF UPPER LOBE OF LEFT LUNG / Unknown 04/16/2024 13:42 EDT 04/17/2024 10:56 EDT Felicia DELEON PATHO LOGY ORDERABLES [facility] [address] [place] [address] * (ABNORMAL) BACTERIAL CULTURE/SMEAR, RESPIRATORY (04/16/2024 13:42 EDT) Only the most recent of2 resultswithin the time period is included. Organism ID [id number] to 100,000 CFU/ml VITEK SUSCEPTIBILITY 04/18/2024 11:07 [facility] Comment: Usual kayce-pharyngeal david Smear Neutrophils Present(A) 04/18/2024 11:07 [facility] Comment:Corrected result: Pr eviously reported as Few Neutrophils Present on 04/16/2024 at 1558 EDT. Smear Squamous Epithelial Cells(A) 04/18/2024 11:07 T [facility] Comment:Corrected result: Pr eviously reported as Few Squamous Epithelial Cells on 04/16/2024 at 1558 EDT. Smear Gram Positive Cocci(A) 04/18/2024 11:07 [facility] Comment:Corrected result: Pr eviously reported as Few Gram Positive Cocci on 04/16/2024 at 1558 EDT. Smear Respiratory epithelial cells absent(A) 04/18/2024 11:07 EDT [facility] Smear Mucus present(A) 04/18/2024 11:07 EDT [facility] Comment: Cytospin gram stain interpreted. KEELEY anterior segment - BAL BAL STRUCTURE OF UPPER LOBE OF LEFT LUNG / Unknown 04/16/2024 13:42 EDT 04/16/2024 14:08 EDT Felicia DELEON MICRO BIOLOGY - GENERAL ORDERABLES [facility] [address] [place] [address] * ADULT BRONCHOSCOPY (04/16/2024 11:00 EDT) Anatomical [...] scanned media. Lidocaine 1% administered in a [id number] fashion. ?? Endobronchial findings: There was significant [...] I personally spent 22 minutes in continuous [id number]-gh-[id number] attendance with the patient during the administration [...] AM By Freddy Taveras Felicia DELEON GI SC OCEDURE ORDERABLES * RHEUMATOID SCREEN/TITRE (04/04/2024 15:32 EDT) Rheumatoid Factor <8.6 <12.0 IU/mL 04/04/2024 21:53 EDT [facility] Blood VENOUS BLOOD / Unknown Venipuncture / Unknown 04/04/2024 15:32 EDT 04/04/2024 16:26 EDT Felicia DELEON CHEMI STRY & BLOOD GAS ORDERABLES Performing Organization Address City/[facility]/ZIP Co de Phone Number [facility] [address] [place], [place] [id number] * SSA/SSB PANEL (04/04/2024 15:32 EDT) Ro52 Anitbody, IgG <2.3 <20.0 CU 2023 11:35 EDT [facility] Comment:Results were obtaine d with the [employer] Flash Ro52 chemiluminescent immunoassay. Values obtained with different manufacturers' assay methods must not be used interchangeably. Ro60 Antibody, IgG <7.0 <20.0 CU 2023 11:35 EDT [facility] Comment:Results were obtaine d with the [employer] Flash Ro60 chemiluminescent immunoassay. Values obtained with different manufacturers' assay methods must not be used interchangeably. SSB Antibody, IgG <3.3 <20.0 CU 024 11:35 EDT [facility] Comment:Results were obtaine d with the [employer] Flash SS-B chemiluminescent immunoassay. Values obtained with different manufacturers' assay methods must not be used interchangeably. Blood VENOUS BLOOD / Unknown Venipuncture / Unknown 04/04/2024 15:32 EDT 04/04/2024 16:26 EDT Felicia DELEON IMMUN OLOGY AND SEROLOGY ORDERABLES [facility] [address] [place] [address] * CCP ANTIBODIES (04/04/2024 15:32 EDT) CCP Antibodies <2.5 <5.0 U/mL 04/05/2024 8:07 EDT [facility] Blood VENOUS BLOOD / Unknown Venipuncture / Unknown 04/04/2024 15:32 EDT 04/04/2024 16:26 EDT Felicia Taveras [facility] IMMUN OLOGY AND SEROLOGY ORDERABLES Performing Organization Address City/[facility]/ZIP Co de Phone Number [facility] [address] [place] [address] * DISHWASHER PREPARER ANTIBODY, IGG (04/04/2024 15:32 EDT) DISHWASHER PREPARER Antibody, IgG <6.0 <20.0 CU 024 11:35 EDT [facility] Comment:Results were obtaine d with the [employer] Flash DISHWASHER PREPARER chemilumenscent immunoassay. Values obtained with different manufacturers' assay methods may not be used interchangeably. Blood VENOUS BLOOD / Unknown Venipuncture / Unknown 04/04/2024 15:32 EDT 04/04/2024 16:26 EDT Felicia Taveras [facility] IMMUN OLOGY AND SEROLOGY ORDERABLES Performing Organization Address [facility] Co de Phone Number [facility] [address] [place] [address] * SCL 70 ANTIBODY, IGG, SERUM (04/04/2024 15:32 EDT) Scl 70 Ab, IgG, S <0.2 <1.0 (Negative ) U 04/05/2024 17:04 EDT [facility] Comment: Test Performed by: [place] [address] Field Sales Representative: Cherrie Fernandez Ph.D.; CLIA# [id number] Blood VENOUS BLOOD / Unknown Venipuncture / Unknown 04/04/2024 15:32 EDT 04/04/2024 16:30 EDT Felicia Taevras [facility] IMMUN OLOGY AND SEROLOGY ORDERABLES [facility] [address] [place] [address] * DOUBLE STRANDED DNA ANTIBODY, IGG (04/04/2024 15:32 EDT) [facility] dsDNA Ab, IgG <22.0 <27.0 IU/mL 04/05/2024 11:35 EDT [facility] Comment: Negative: <27.0 IU/mL Indeterminate: 27.0 - 35.0 IU/mL Positive: >35.0 IU/mL Results were obtained with [employer] Flash dsDNA chemiluminescent immunoassay. Values obtained with different manufacturers' assay methods may not be used interchangeably. Blood VENOUS BLOOD / Unknown Venipuncture / Unknown 04/04/2024 15:32 EDT 04/04/2024 16:26 EDT Felicia DELEON IMMUN OLOGY AND SEROLOGY ORDERABLES [facility] [address] [place] [address] * (ABNORMAL) COMPLETE BLOOD COUNT AND DIFFERENTIAL (04/04/2024 15:32 EDT) [facility] WBC 8.87 4.00 - 10.40 K/cmm 04/04/2024 16:26 [facility] RBC 4.25(L) 4.36 - 5.78 M/cmm 04/04/2024 16:26 [facility] Hemoglobin 13.2(L) 13.8 - 17.3 g/dL 04/04/2024 16:26 [facility] HCT 42.2 39.5 - 50.2 % 04/04/2024 16:26 [facility] MCV 99(H) 81 - 95 fL 04/04/2024 16:26 [facility] MCH 31.1 27.6 - 33.0 pg 04/04/2024 16:26 [facility] MCHC 31.3(L) 32.8 - 36.4 g/dL 04/04/2024 16:26 [facility] RDW-CV 15.6(H) <14.2 % 04/04/2024 16:26 [facility] RDW-SD 56.7(H) <46.0 fl 04/04/2024 16:26 [facility] PLT 205 141 - 377 K/cmm 04/04/2024 16:26 [facility] MPV 10.0 9.5 - 12.7 fL 04/04/2024 16:26 [facility] % Neutrophils 71.5 % 04/04/2024 16:26 [facility] % Lymphocytes 13.4 % 04/04/2024 16:26 [facility] % Monocytes 7.2 % 04/04/2024 16:26 [facility] % Eosinophils 6.7 % 04/04/2024 16:26 [facility] % Basophils 0.9 % 04/04/2024 16:26 [facility] % Immature Grans 0.3 <0.9 % 04/04/20 16:26 [facility] Absolute Neutrophils 6.34 2.20 - 8.85 K/cmm 04/04/2024 16:26 [facility] Absolute Lymphocytes 1.19 1.09 - 3.30 K/cmm 04/04/2024 16:26 [facility] Absolute Monocytes 0.64 0.10 - 0.80 K/cmm 04/04/2024 16:26 [facility] Absolute Eosinophils 0.59 0.03 - 0.61 K/cmm 04/04/2024 16:26 [facility] ABS Basophils 0.08 0.01 - 0.11 K/cmm 04/04/2024 16:26 [facility] Absolute Immature Grans 0.03 0.00 - 0.06 K/cmm 04/04/2024 16:26 [facility] Type of Differential: Auto 04/04/2024 16:26 EDT [facility] Blood VENOUS BLOOD / Unknown Venipuncture / Unknown 04/04/2024 15:32 EDT 04/04/2024 16:22 EDT Felicia DELEON PACKA GES & DNA PROBE ORDERABLES Performing Organization Address City/[facility]/ZIP Co de Phone Number [facility] [address] [place] [address] * ANTI NUCLEAR AB (OPAL), IFA (04/04/2024 15:32 EDT) Pathologist [facility] OPAL Interpretation Negative Negative 2023 14:28 EDT [facility] Comment:No titer performed, OPAL Screen is negative. Blood VENOUS BLOOD / Unknown Venipuncture / Unknown 04/04/2024 15:32 EDT 04/04/2024 16:26 EDT Narrative [facility] - 04/05/2024 14:28 EDT Results were obtained with the [employer] NOVA Lite HEp-2 OPAL Kit by indirect immunofluorescence. Felicia DELEON IMMUN OLOGY AND SEROLOGY ORDERABLES Performing Organization Address City/[facility]/ZIP Co de Phone Number [facility] [address] [place] [address] * (ABNORMAL) BASIC METABOLIC PANEL (BMP) (04/04/2024 15:32 EDT) Pathologist [facility] Sodium 138 136 - 145 mmol/L 04/04/2024 17:01 EDT [facility] Potassium 4.7 3.5 - 5.0 mmol/L 04/04/2024 17:01 EDT [facility] Chloride 104 96 - 110 mmol/L 04/04/2024 17:01 EDT [facility] CO2 Total 27 22 - 32 mmol/L 04/04/2024 17:01 EDT [facility] Anion Gap 7 5 - 14 mmol/L 04/04/2024 [facility] Glucose 74 70 - 99 mg/dl 04/04/2024 17:01 [facility] Calcium 9.1 8.5 - 10.5 mg/dL 04/04/2024 17:01 [facility] BUN 22 10 - 26 mg/dL 04/04/2024 17:01 [facility] Creatinine 1.38(H) 0.66 - 1.25 mg/dL 04/04/2024 17:01 [facility] eGFR 54(L) >60 mL/min/1.73 m2 04/04/2024 17:01 [facility] Blood VENOUS BLOOD / Unknown Venipuncture / Unknown 04/04/2024 15:32 EDT 04/04/2024 16:28 EDT Felicia DELEON CHEMI STRY & BLOOD GAS ORDERABLES [facility] [address] [place] [address] * ECG REPORT - SCANNED (03/18/2024 17:26 EDT) 03/18/2024 17:2 6 EDT Scan 2 Balloon Tester PROCEDURE/MINOR MARCO A GICAL ORDERABLES * EKG 12-LEAD (03/15/2024 15:35 EDT) 03/15/2024 15:3 5 EDT Narrative [facility] EKG - 03/16/2024 11:42 EDT ? [facility] ? Test Date: ?2024-03-15 Pat Name: ? DILLAN AL ? Department: ?? [facility] Card ? Room: ? Gender: ? Male ? Leather Cartridge Belt Maker: ?? [id number] : ?1950 ? Requested By: GIULIA Mccormick Order Number: [id number] ? Reading MD: ?? ALVARO LECHUGA MD ? Measurements Intervals ?[place] ? Rate: ? 63 ? P: ?-5 SC: ? 187 ?QRS: ?-16 QRSD: ? 117 [...] Note Alvaro Lechuga MD - 03/16/2024 [facility] Test Date: 2024-03-15 Pat Name: DILLAN AL Department: Pierre Sukhi Room: Gender: Male Leather Cartridge Belt Maker: [id number] : 1950 Requested By: GIULIA Mccormick Order Number: [id number] Reading MD: ALVARO LECHUGA MD Measurements Intervals [place] Rate: 63 P: -5 SC: 187 QRS: -16 QRSD: 117 T: 30 [...] Fela Villegas NP CARDIAC ECG ORDERABL ES [facility] EKG * CT OUTSIDE IMAGES CHEST (02/23/2024 14:46 EDT) Narrative 03/09/2024 14:46 EDT This is a non-reportable exam. External Imaging IMG OTHER IMAGING OR DERABLES from Last 3 Months Care Teams Application Operations Engineer Relationship Specialty Start Date End Date Farnaz Pineda MD [address] [place] [id number] PCP - General 11/18/09 Fela Villegas NP [address] [facility] [address] [place] [phone] Director Of Anesthesia Services Cardiovascular Disease 03/12/22
--- OUTSIDE RECORDS SUMMARY | 2024-04-20 15:09 | XMS_ITS | Encounter Summary ---
Author Organization [facility] [address] Care Team Providers Care Miscellaneous Machine Operator Name Role Phone Farnaz Pineda MD Primary Care Provider [phone] Encounter Details Date Type Department Care Team (Late st Contact Info) Description 11/28/2012 11:15 AM EST [place] [address] Encounter for removal of urinary [...] Sign Reading Time Taken Comments Blood Pressure 118/76 11/28/2012 11:36 AM EST Pulse 87 11/28/2012 11:36 AM EST Temperature - - Respiratory Rate 18 11/28/2012 11:36 AM EST Oxygen Saturation - - Inhaled Oxygen Concentration - - Weight - - Height - - Body Mass Index - - documented in this encounter Progress Notes * Nneka García LPN - 11/30/2012 10:[address] Madrid note from same date NNEKA GARCÍA LPN documented in this encounter Plan of Treatment Not on file documented as of this encounter Visit Diagnoses Diagnosis Encounter for removal of urinary catheter- Primary Fitting and adjustment of urinary device documented in this encounter Care Teams Miscellaneous Machine Operator Relationship Specialty Start Date End Date Farnaz Pineda MD [address] [place] [address] PCP - General 10/26/12 documented as of this encounter
--- OUTSIDE RECORDS SUMMARY | 2024-04-20 15:09 | XMS_ITS | Encounter Summary ---
Author Organization [facility] [place] [address] Care Team Providers Care Surveillance Observer Name Role Phone Farnaz Pineda MD Primary Care Provider Encounter Details Date Type Department Care Team (Late st Contact Info) Description 10/31/2012 External [place] [phone] Provider, Scanning Social History Tobacco Use Types Packs/Day Years Used Date Smoking Tobacco: Never Assessed Sex and Gender Information Value Date Recorded Sex Assigned at Not on file Gender Identity Not on file Sexual Orientation Not on file documented as of this encounter Plan of Treatment Not on file documented as of this encounter Procedures Procedure Name Priority Date/Time Associated Diagnosis Comments SURGICAL PATHOLOGY SCAN Routine 10/31/2012 documented in this encounter Results * Scan Doc: Surgical Pathology (10/31/2012) Ross Madrid MD MEDIA MGR SCAN EXT O RDR/RSLT documented in this encounter Visit Diagnoses Not on filedocumented in this encounter Care Teams Surveillance Observer Relationship Specialty Start Date End Date Farnaz Pineda MD [address] [place] [address] PCP - General 10/26/12 documented as of this encounter
--- OUTSIDE RECORDS SUMMARY | 2024-04-20 15:09 | XMS_ITS | Encounter Summary ---
Author Organization [facility] [place] [address] Care Team Providers Care Bond Writer Name Role Phone Farnaz Pineda MD Primary Care Provider [phone] Reason for Visit * Reason Comments Radiation Consult Encounter Details Date Type Department Care Team (Late st Contact Info) Description 11/02/2012 10:30 AM EST Office Visit Hematology [place] [address] Abraham Chase MD [facility] [place] [address] Prostate cancer (Primary Dx) Social History Tobacco Use Types Packs/Day Years Used Date Smoking Tobacco: Former Cigarettes Q uit: 11/02/1986 Sex and Gender Information Value Date Recorded Sex Assigned at Not on file Gender Identity Not on file Sexual Orientation Not on file documented as of this encounter Progress Notes * Abraham Chase MD - 12/01/2012 3:39 PM EST RADIATION ONCOLOGY CONSULTATION NOTE PROVIDER: Abraham Chase MD, PhD REFERRING PROVIDER: Ross Madrid MD PRIMARY CARE PROVIDER: Farnaz Pineda MD Sylvain Rodgers is a 62 y.o. male who is seen in consultation at the [facility] at [facility] at the request of Dr. Madrid regarding prostate cancer. History of Present Illness: Mr. Rodgers is 62, he had an elevated PSA at 7.1 in June of last year, he recalls a PSA of about6 2-3 years ago. I don't have the lab records available for review. He did not have a palpable abnormality. He had a prostate biopsy performed 10/05/12 reviewed here at [facility] [place]: ---Pathologic Diagnosis--- CONSULTATION CASE Outside slides labeled [id number], collection date 10/05/12: 1 - Prostate, right lateral apex, needle core biopsy: Adenocarcinoma, Hsasha grade 3 + 3, involving approximately 10% of the single biopsy core. 2 - Prostate, right apex medial, needle core biopsy: Adenocarcinoma, Shasha grade 3 + 3, involving approximately 10% of the single biopsy core. 3 - Prostate, right mid lateral, needle core biopsy: Benign prostatic tissue. 4 - Prostate, right mid medial, needle core biopsy: Benign prostatic tissue. 5 - Prostate, right base lateral, needle core biopsy: Benign prostatic tissue. 6 - Prostate, right base medial, needle core biopsy: Benign prostatic tissue. 7 - Prostate, left apex lateral, needle core biopsy: Benign prostatic tissue. 8 - Prostate, left apex medial, needle core biopsy: Benign prostatic tissue. 9 - Prostate, left mid lateral, needle core biopsy: 1. Adenocarcinoma, Shasha grade 4 + 4, involving approximately 20% of the single biopsy core. 2. Focal high grade prostatic intraepithelial neoplasia (PIN). 10 - Prostate, left mid medial, needle core biopsy: Adenocarcinoma, Shasha grade 4 + 5, involving approximately 10% of the single biopsy core. 11 - Prostate, left base lateral, needle core biopsy: Benign prostatic tissue. 12 - Prostate, left base medial, needle core biopsy: Benign prostatic tissue. He has good urinary function, no hematuria, dysuria or incontinence. He does have some problems with erections, has been on Androgel in the past. He had polyps on a colonoscopy about 2 years ago. Past Medical History: Aortic valve replacement Hypothyroid Anticoagulation Past Surgical History: Mechanical aortic valve replacement. Contraindications to Radiotherapy: NO: YES: Date, site, dose (women only) x Prior Radiotherapy x Patient's Medications New Prescriptions DOCUSATE SODIUM (COLACE) 100 MG CAPSULE Take 1 capsule by mouth 2 times daily for 10 days. HYDROCODONE-ACETAMINOPHEN (VICODIN) 5-500 MG PER TABLET Take 1-2 tablets by mouth every 4 hours as needed for Pain. Previous Medications ASPIRIN 81 MG EC TABLET Take 81 mg by mouth daily. ENOXAPARIN SODIUM (LOVENOX SUBQ) Inject 100 mg subcutaneously 2 times daily. FLUTICASONE-SALMETEROL (ADVAIR) 100-50 MCG/DOSE DISKUS INHALER Inhale 1 puff into the lungs every 12 hours. LEVOTHYROXINE (SYNTHROID) 50 MCG TABLET Take 50 mcg by mouth daily. MONTELUKAST (SINGULAIR) 10 MG TABLET Take 10 mg by mouth nightly. OMEPRAZOLE (PRILOSEC) 20 MG CAPSULE Take 20 mg by mouth daily. WARFARIN (COUMADIN) 7.5 MG TABLET Take 7.5 mg by mouth daily. Modified Medications No medications on file Discontinued Medications No medications on file No Known Allergies History Social History ??? Marital Status: Spouse Name: N/A Number of Children: N/A ??? Years of Education: N/A Social History Main Topics ??? Smoking status: Former Smoker -- 1.0 packs/day Quit date: 11/02/1986 ??? Smokeless tobacco: Not on file ??? Alcohol Use: Yes 2 gin and tonic per night ??? Drug Use: No ??? Sexually Active: No Other Topics Concern ??? Not on file Social History Narrative ??? No narrative on file Family History: No family history of prostate cancer. Review of Systems: Gen: No fevers/chills : No dysuria, hematuria or incontinence GI: No blood or chronic diarrhea. Physical Examination: Vitals were performed and reviewed, unremarkable. Gen: Appears well/NAD Interactive, asks appropriate questions AAOX3, ambulatory. Pathology: As reviewed above Laboratory Studies: 06/2012 7.1 Per patient and outside note Imagin Bone scan: No evidence of bone metastasis 10/20/12 CT abdomen and pelvis: No evidence of metastatic disease. Assessment: Sylvain Rodgers is a 62 y.o. male with high risk prostate cancer, T1c, [place] 4+5=9, PSA 7.1. We discussed treatment options for high risk prostate cancer today, I recommended treatment. Our discussion focused on radiation therapy. He is discussing surgery today with Dr. Madrid. I discussed the logistics of radiation treatment including gold-marker placement for utilization inImage-guided treatment to increase precision with the goal to reduce morbidity. We discussed both acute and late side-effects of radiotherapy. The acute sequelae of urinary and gastrointestinal irritation are expected and manageable. The late effects with radiation treatment include a low chance of significant damage to bowel or bladder function (less than 5%), and an extremely low risk of secondmalignancy (at or below 2% at 20 years, escalating over decades). We discussed that optimal definitive therapy for high risk prostate cancer includes neoadjuvant, concurrent, and adjuvant androgen deprivation therapy. We reviewed the side effects associated with hormonal therapy, including short-term issues such as fatigue, loss of libido, hot flashes, arthralgias, myalgias, and changes in body habitus, and long-term issues such as anemia, changes in liver function, bone density loss, and low risks of cardiac disease and metabolic syndrome. Sylvain Rodgers is on anticoagulant therapy given his mechanical heart valve, we discussed late effects of radiation could cause telangectasia which could require intervention in the setting of anticoagulant therapy. He do have clinical trials available, we discussed we could review these in detail should he wish to pursue radiation. Plan: Sylvain Rodgers is considering his options. He is favoring surgery. He has my contact information should he wish to discuss radiation further or make a treatment plan. Total visit time was 45 minutes. 40 minutes were spent in face to face counseling and coordination of care. documented in this encounter Plan of Treatment Not on file documented as of this encounter Visit Diagnoses Diagnosis Prostate cancer- Primary Malignant neoplasm of prostate documented in this encounter Care Teams Bond Writer Relationship Specialty Start Date End Date Farnaz Pineda MD [address] [place] [address] PCP - General 10/26/12 documented as of this encounter
--- OUTSIDE RECORDS SUMMARY | 2024-04-20 15:09 | XMS_ITS | Encounter Summary ---
Author Organization [facility] Address [address] [facility] [place] [address] Care Team Providers Care Insole Presser Name Role Phone Farnaz Pineda MD Primary Care Provider [phone] Encounter Details Date Type Department Care Team (Latest Contact Info) Description 11/02/2012 1:51 PM EST - 11/02/2012 11:59 PM EST Hospital Encounter XRay at [facility] [address] [facility] [place] [id number] Prostate cancer Social History Tobacco Use Types [...] tablet Take 50 mcg by mouth daily. docusate sodium (COLACE) 100 mg capsule Take 1 capsule by mouth 2 times daily for 10 days. 10 capsule 11/21/2012 12/01/2012 enoxaparin (LOVENOX) 100 mg/mL Syrg injection Inject 1 mL subcutaneously every 12 hours for 7 days. 14 mL 0 11/21/2012 11/28/2012 hydroCODone-acetami nophen (VICODIN) 5-500 mg per tablet Take 1-2 tablets by mouth every 4 hours as needed for Pain. 30 tablet 0 11/21/2012 01/05/2013 fluticasone-salmete rol (ADVAIR) 100-50 mcg/dose diskus inhaler Inhale 1 puff into the lungs every 12 hours. 06/14/2013 aspirin 81 mg EC tablet Take 81 mg by mouth daily. 07/28/2018 documented as of this encounter Plan of Treatment Not on file documented as of this encounter Procedures Procedure Name Priority Date/Time Associated Diagnosis Comments XR CHEST PA AND LATERAL Routine 11/02/2012 1:58 PM EST Prostate cancer documented in this [...] attending Ross Madrid MD IMG DX ORDERABLES documented in this encounter Visit Diagnoses Diagnosis Prostate cancer Malignant neoplasm of prostate documented in this encounter Care Teams Insole Presser Relationship Specialty Start Date End Date Farnaz Pineda MD [address] [place] [address] PCP - General 10/26/12 documented as of this encounter
--- OUTSIDE RECORDS SUMMARY | 2024-04-20 15:09 | XMS_ITS | Encounter Summary ---
Author Organization [facility] Address [address] [place] [address] Care Team Providers Care Belt Line Feeder Name Role Phone Farnaz Pineda MD Primary Care Provider [phone] Fela Villegas HORTICULTURAL SERVICES SUPERVISOR Unavailable [phone] Encounter Details Date Type Department Care Team (Late st Contact Info) Description 04/16/2024 Orders Only [facility] Pulmonology [address] [place] [address] Felicia Taveras MBBS [address] [facility], [address] [place] [address] Bronchiectasis without complication ([facility]-CMS) (Primary Dx) Social History Tobacco Use Types [...] 16:52 EDT Sexual Orientation Not on file documented as of this encounter Functional Status Functional Status Response Date of [...] concentrating, remembering, or making decisions? No 10/07/2017 documented as of this encounter Ordered Prescriptions Prescription Sig Dispensed Refills Start Date End Da te sodium chloride 3 % nebulizer solutionIndications:Bron chiectasis without complication (HCC-CMS) Take 4 mL by nebulization 2 times daily. 240 mL 5 04/16/2024 documented in this encounter Progress Notes * Felicia Taveras MBBS - 04/16/2024 1454 EDT Nebulizer and hypertonic saline neb ordered documented in this encounter Plan of Treatment Upcoming Encounters Date Type Department Care Team (Late st Contact Info) Description 03/18/2025 14:00 EDT Ancillary Procedure [facility] Cardiology - [place] [address] [address] [place], [place] [id number] 03/18/2025 14:40 EDT Office Visit [facility] Cardiology - [place] [address] [address] [place], [place] [id number] Fela Villegas NP [address] [place] [phone] documented as of this encounter Visit Diagnoses Diagnosis Bronchiectasis without complication (HCC-CMS)- Primary Bronchiectasis without acute exacerbation documented in this encounter Orders Equipment Count Last Ordered Date First Orde red Date GENERIC DME ORDER 1 04/16/2024 documented in this encounter Care Teams Belt Line Feeder Relationship Specialty Start Date End Date Farnaz Pineda MD [address] [place] [address] PCP - General 11/18/09 Fela Villegas NP [address] [place] [phone] Articulation Officer Cardiovascular Disease 03/12/22 documented as of this encounter
--- OUTSIDE RECORDS SUMMARY | 2024-04-20 15:09 | XMS_ITS | Encounter Summary ---
Author Organization [facility] Address [facility] [place] [address] Care Team Providers Care Pedigree Tracer Name Role Phone Farnaz Pineda MD Primary Care Provider [phone] Encounter Details Date Type Department Care Team (Late st Contact Info) Description 11/20/2012 7:23 AM EST Anesthesia [place] [phone] Susan Strange MD [facility] [place] [address] Jessica Baron PA [facility] [place] [address] Anesthesia Record Procedure Summary Procedure Name Responsible [...] Marcos Perez RN 11/21/12 1801 by Christin Awad, LANIE (RETIRED) Peripheral IV Line - Single Lumen [...] OR Notes * Anesthesia Postprocedure Evaluation - Fabian Boogie MD - 11/20/2012 1:37 PM EST Patient: Sylvain Rodgers Procedure(s) Performed: Procedure(s): @LAPAROSCOPIC PROSTATECTOMY, ROBOTICS ASSISTED LAPAROSCOPY,WITH BILATERAL TOTAL PELVIC LYMPHADENECTOMY, ROBOTIC Patient location: PACU Post-op pain: Adequate analgesia Post-op nausea: no nausea or vomiting Last Vitals: Filed Vitals: 02/11/13 1330 BP: 111/70 Pulse: 77 Temp: Resp: 12 Post-op cardiovascular and respiratory status: is stable Level of consciousness: awake, alert and oriented Complications: no apparent complications, tolerated the procedure well and no evidence of recall Fluid Status: normal * Anesthesia Preprocedure Evaluation - Fabian Boogie MD - 11/06/2012 10:21 AM EST Images from the original note were not included. Today I evaluated Sylvain Rodgers a 62 y.o. male. Procedure(s): @LAPAROSCOPIC PROSTATECTOMY, ROBOTICS ASSISTED LAPAROSCOPY,WITH BILATERAL TOTAL PELVIC LYMPHADENECTOMY, ROBOTIC There are no active problems to display for this patient. No past medical history on file. No past surgical history on file. History Substance Use Topics ??? Smoking status: Former Smoker -- 1.0 packs/day Quit date: 11/02/1986 ??? Smokeless tobacco: Not on file ??? Alcohol Use: Not on file No Known Allergies Medications: MAR and/or home [...] history of AI s/p AVR 10 years ago, Asthma, and GERD scheduled to undergo laparoscopic radical prostatectomy. THIS PRELIMINARY NOTE WAS COMPLETED BASED ON CHART REVIEW BEFORE THE PATIENT WAS INTERVIEWED OR EXAMINED. Anesthetic Plan: GA with ETT, Standard monitors Pt Weight: 97 Kg Allergies: No Known Allergies Informed Consent: Anesthetic plan and risks discussed with patient. Use of blood products discussed with patient whom consented to blood products. Plan discussed with attending. Misc. Assessment: documented in this encounter Miscellaneous Notes * Addendum Note - Fela Real - 11/21/2012 11:43 AM EST Addendum created 11/21/12 1143 by Fela Real Modules edited:Anesthesia Events, Anesthesia Responsible Staff, SmartForms SmartFormsVN Section for SmartForms 266 documented in this encounter Plan of Treatment Not on file documented as of this encounter Visit Diagnoses Not on filedocumented in this encounter Care Teams Pedigree Tracer Relationship Specialty Start Date End Date Farnaz Pineda MD [address] [place] [address] PCP - General 10/26/12 documented as of this encounter
--- OUTSIDE RECORDS SUMMARY | 2024-04-20 15:09 | XMS_ITS | Encounter Summary ---
Author Organization [facility] Address [address] [place] [address] Care Team Providers Care Sewer And Drain Technician Name Role Phone Farnaz Pineda MD Primary Care Provider [phone] Fela Villegas GUEST SERVICES ASSOCIATE Unavailable [phone] Reason for Referral * Laboratory Services (Routine/Next Available) - New Request Specialty Diagnoses / Procedures [facility] Referred To Contact Diagnoses HO (acute kidney injury) ([facility]) Procedures BUN Felicia Taveras MBBS [address] [address] Referral ID Status Reason Start Date Expiration Date V isits Requested Visits Authorized [id number] New Request 04/19/2024 1 1 * Laboratory Services (Routine/Next Available) - New Request Specialty Diagnoses / Procedures [facility]a Referred To Contact Diagnoses HO (acute kidney injury) ([facility]) Procedures CREATININE Felicia Taveras MBBS [address] [address] Referral ID Status Reason Start Date Expiration Date V isits Requested Visits Authorized [id number] New Request 04/19/2024 1 1 Encounter Details Date Type Department Care Team (Late st Contact Info) Description 04/19/2024 Orders Only [facility] Operating Room [address] [place] [address] Felicia Taveras MBBS [address] [facility], [address] [place] [address] HO (acute kidney injury) ([facility]) (Primary Dx) Social History Tobacco Use Types [...] No 10/07/2017 documented as of this encounter Progress Notes * Yazan Lowe - 04/19/2024 0927 EDT Orders faxed. documented in this encounter Plan of Treatment Upcoming Encounters Date Type Department Care Team (Late st Contact Info) Description 03/18/2025 14:00 EDT Ancillary Procedure [facility] Cardiology [place] [address] 03/18/2025 14:40 EDT Office Visit [facility] Cardiology - [address] [place], [place] [phone] Fela Villegas NP [address] [phone] Scheduled Orders Name Type Priority Associated Diagnoses Orde r Schedule CREATININE Lab Routine HO (acute kidney injury) ([facility]) Expected: 04/19/2024 (Approximate), Expires: 04/19/2025 BUN Lab Routine HO (acute kidney injury) ([facility]) Expected: 04/19/2024 (Approximate), Expires: 04/19/2025 documented as of this encounter Visit Diagnoses Diagnosis HO (acute kidney injury) ([facility])- Primary Acute kidney failure, unspecified documented in this encounter Care Teams Sewer And Drain Technician Relationship Specialty Start Date End Date Farnaz Pineda MD [address] [place] [address] PCP - General 11/18/09 Fela Villegas NP [address] [place] [phone] Log Stacker Operator Cardiovascular Disease 03/12/22 documented as of this encounter
--- OUTSIDE RECORDS SUMMARY | 2024-04-20 15:09 | XMS_ITS | Encounter Summary ---
Author Organization [facility] Address [address] [place] [address] Care Team Providers Care Mechanical Striper Name Role Phone Farnaz Pineda MD Primary Care Provider [phone] Fela Villegas WASHROOM CLEANER Unavailable [phone] Reason for Visit * Reason Onset Date Comments DME 04/17/2024 DME-NEBULIZER OR CEE-[facility] Encounter Details Date Type Department Care Team (Late st Contact Info) Description 04/17/[address] [facility] Pulmonology [address] [place] [address] Felicia Taveras MBBS [address] [place] [address], [facility] [address] [place] [address] DME (DME-NEBULIZER ORDER-[facility]) Social History Tobacco Use Types Packs/Day Years [...] No 10/07/2017 documented as of this encounter Miscellaneous Notes * Telephone Encounter - Susana Coleman - 04/17/2024 1351 EDT Nebulizer order to [facility] entered in parachute documented in this encounter Plan of Treatment Upcoming Encounters Date Type Department Care Team (Late st Contact Info) Description 03/18/2025 14:00 EDT Ancillary Procedure [facility] Cardiology - [place] [address] [place] [address] 03/18/2025 14:40 EDT Office Visit [facility] - [facility] [place] [address] Fela Villegas NP [address] [place] [phone] documented as of this encounter Visit Diagnoses Not on filedocumented in this encounter Care Teams Mechanical Striper Relationship Specialty Start Date End Date Farnaz Pineda MD [address] [place] [address] PCP - General 11/18/09 Fela Villegas NP [address] [place] [phone] Material Assembler Cardiovascular Disease 03/12/22 documented as of this encounter
--- OUTSIDE RECORDS SUMMARY | 2024-04-20 15:09 | XMS_ITS | Encounter Summary ---
Author Organization [facility] [address] Care Team Providers Care Clinic Scheduler Name Role Phone Farnaz Pineda MD Primary Care Provider [phone] Encounter Details Date Type Department Care Team (Latest Contact Info) Description 11/28/2012 11:20 AM EST [place] [phone] Ross Velazquez MD [facility] [place] [address] H/O prostatectomy (Primary Dx) Discharge Disposition: Home Social [...] of this encounter Progress Notes * Ross Velazquez MD - 11/28/2012 4:33 PM ESTAddended by: ROSS VELAZQUEZ on: 11/28/2012 04:33 PM Modules accepted: Orders * Ross Velazquez MD - 11/28/2012 12:11 PM EST Mr. 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 His surgery was uncomplicated with minimal blood loss, and he was discharged POD#1. He was bridged for surgery with lovenox given his history of a metal aortic valve and coumadin use. Postoperatively, he had a heparin gtt overnight and was transitioned to lovenox with close observation the next day, with continued light urine and a stable hemoglobin. Currently he is therapeutic on coumadin and off of lovenox. Overall he has felt well. 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 He denies feeling full or uncomfortable at any time. Currently his urine is clear. He has had some leakage from his left-most abdominal incision as well. 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 See below for full report. He had a pT3a (+EPE) Gleason3+4=7 with tertiary 5 pattern, multiple areas of EPE on the left posterior gland, and negative surgical margins. Also he had negative lymph nodes. ---Pathologic Diagnosis--- A - Prostate gland, resection: Specimen type: Radical prostatectomy Histologic type: Adenocarcinoma Shasha grades: 3+4 with a minor component of grade 5 carcinoma (see Comment) Yoakum score: 7 Location of tumor: Bilateral, all 4 quadrants, predominantly left anterior and posterior % prostate involved by tumor: 9% Extracapsular extension (RADHA):Present - Location: Left posterior (A34, A38) - Linear extent of RADHA: Left posterior (A34): 10.0 mm Left posterior (A38): 7.0 mm Seminal vesicle invasion: Absent Margins: Margins uninvolved by invasive carcinoma Perineural invasion: Present Lymphovascular invasion: Microscopic indeterminate focus (A42) Additional findings: Periprostatic necrobiotic granuloma (see Comment) B - Left pelvic lymph nodes, excision: Five lymph nodes, no evidence of malignancy (0/5). C - Right pelvic lymph nodes, excision: Two lymph nodes, no evidence of malignancy (0/2). TNM STAGING (AJCC, 7th ed., 2009): Extent of invasion: pT3a: (extraprostatic extension or microscopic invasion of bladder neck) Regional lymph nodes: pN0 (no regional LN metastasis) Distant metastasis: pMX (cannot be assessed) A/P: 1. Intermediate/high risk prostate adenocarcinoma s/p RALRP/PLND with pT3 disease, negative margins- We discussed options of adjuvant radiation therapy once he has functionally healed, vs close surveillance with consideration of salvage therapy for PSA recurrence. We discussed that radiation wouldnot occur for ~[address] maximize healing, thus we do not need to make final decisionstoday, however I counseled them that it would be reasonable to pursue the latter path of close PSA surveillance given his negative margin status, and the chance of distant vs local recurrence. Eitherway, we will plan on a PSA in 3 months. Regarding his catheter, we had planned to remove today, however given the brief episodes of clot retention I recommended a cystogram today to ensure complete healing of his anastamosis, after which the catheter may be removed. He is amenable to this. Upon womack removal, we will teach Kegel exercises. We discussed that it will take time and patience to maximally regain urinary control. Regarding erectile function, he had a non-nerve sparing procedure based on his Shasha 9 disease, though there was some nerve tissue noted posterolaterally that was preserved, so we will observe him for possible function in the future. Finally, regarding his wound drainage, this is light and scant, and I recommended cleaning and re-steristripping this area today. His qu estions were answered in detail. 16 of 17 minutes spent in counseling and coordination of care documented in this encounter Plan of Treatment Not on file documented as of this encounter Procedures Procedure Name Priority Date/Time Associated Diagnosis Comments XR FLUORO CYSTOGRAM Routine 12/08/2012 1 1:17 AM EST H/O prostatectomy PROTHROMBIN TIME STAT 11/28/2012 12:2 1 PM EST H/O prostatectomy documented in this encounter Results * XR Fluoro cystogram (12/08/2012 11:17 AM EST) Anatomical Region Laterality Modality N/A Radiographic Mary ging 12/08/2012 11:1 7 AM EST Narrative 12/11/2012 1:00 PM EST Examination CYSTOGRAM Clinical History evaluate urethrovesical anastamosis s/p prostatectomy Comparison 11/28/2012. Technique Approximately 100 mL of Cystografin were administered via indwelling bladder catheter and multiple spot images were obtained in various orientations. ?? Findings Cork Tile Floor Layer: Bowel gas pattern is unremarkable. ??Stool and air are seen throughout the colon. ??No abnormal calcifications noted. Cystogram: Contrast was administered via womack catheter without difficulty. ??The bladder distends, but has an ovoid and narrow contour, as before. ??Again noted is a small amount of extravasated contrast outside the bladder, along the inferior aspect of the left pubic symphysis; this amount of extravasated contrast in this region is approximately the same as compared to the prior exam. ?? Post void overhead images again demonstrate an ill defined collection of contrast in the left lower pelvis, indicative of the known extraluminal bladder leak. ?? Fluoro time: 1:12 minutes Impression 1. Persistent small bladder leak, similar in appearance to 11/28/12. Film and interpretation reviewed by the attending Procedure Note Flory Hairston MD - 12/11/2012 Examination CYSTOGRAM Clinical History evaluate urethrovesical anastamosis s/p prostatectomy Comparison 11/28/2012. Technique Approximately 100 mL of Cystografin were administered via indwellingbladder catheter and multiple spot images were obtained in various orientations. Findings Cork Tile Floor Layer: Bowel gas pattern is unremarkable. Stool and air are seenthroughout the colon. No abnormal calcifications noted. Cystogram: Contrast was administered via womack catheter without difficulty. Thebladder distends, but has an ovoid and narrow contour, as before. Again noted deisi small amount of extravasated contrast outside the bladder, along theinferior aspect of the left pubic symphysis; this amount of extravasated contrastin this region is approximately the same as compared to the prior exam. Post void overhead images again demonstrate an ill defined collection of contrast in the left lower pelvis, indicative of the known extraluminalbladder leak. Fluoro time: 1:12 minutes Impression 1. Persistent small bladder leak, similar in appearance to 11/28/12. Film and interpretation reviewed by the attending Ross Velazquez MD IMG FLUORO ORDERABLE S * XR Fluoro cystogram (11/28/2012 3:39 PM EST) Anatomical Region Laterality Modality N/A Radiographic Mary ging 11/28/2012 3:39 PM EST Addenda Addendum on 12/06/2012 9:05 AM EST Addendum Begins I was immediately available for capps portions of the examination. ?? NEED STAFF ATTESTATION Addendum Ends Addendum on 12/06/2012 8:32 AM EST Addendum Begins I was immediately available for capps portions of the examination. ?? NEED STAFF ATTESTATION Addendum Ends Addendum on 12/04/2012 3:52 PM EST Addendum Begins I was immediately available for capps portions of the examination. ?? NEED STAFF ATTESTATION Addendum Ends Addendum on 12/04/2012 3:51 PM EST Addendum Begins I was immediately available for capps portions of the examination. ?? NEED STAFF ATTESTATION Addendum Ends Addendum on 12/04/2012 2:53 PM EST Addendum Begins NEED STAFF ATTESTATION Addendum Ends Narrative 11/28/2012 4:43 PM EST Examination CYSTOGRAM Clinical History Evaluate for leak Comparison None ?? Technique 60 mL of Cystografin were administered via indwelling bladder catheter and multiple spot images were obtained in the for orientations. Findings Cork Tile Floor Layer Pelvis: ?? No dilated loops of air-filled small or large bowel. The bowel gas pattern is unremarkable. Stool and air are seen throughout the colon. No abnormal calcifications noted. ?? Cystogram: ?? Contrast was administered via indwelling catheter without difficulty. The bladder distends, but has an oblong and abnormally narrowed contour. A small amount of contrast is seen outside the bladder, along the inferior aspect of the left pubic symphyses, and is c/w bladder leak. No other regions of extravasation identified. ?? Postvoid overhead images demonstrate a small ??ill-defined radiopaque focus in region of the left pubic symphysis, indicative of extraluminal contrast. Fluoro time: 1:17 min Impression 1. Small bladder leak. ?? Film and interpretation reviewed by the attending Procedure Note Cleo Diaz MD - 12/06/2012 Examination CYSTOGRAM Clinical History Evaluate for leak Comparison None Technique 60 mL of Cystografin were administered via indwelling bladder catheter and multiple spot images were obtained in the for orientations. Findings Cork Tile Floor Layer Pelvis: No dilated loops of air-filled small or large bowel. The bowel gas patternis unremarkable. Stool and air are seen throughout the colon. No abnormal calcifications noted. Cystogram: Contrast was administered via indwelling catheter without difficulty. The bladder distends, but has an oblong and abnormally narrowed contour. Asmall amount of contrast is seen outside the bladder, along the inferior aspectof the left pubic symphyses, and is c/w bladder leak. No other regions of extravasation identified. Postvoid overhead images demonstrate a small ill-defined radiopaque focusin region of the left pubic symphysis, indicative of extraluminal contrast. Fluoro time: 1:17 min Impression 1. Small bladder leak. Film and interpretation reviewed by the attending Ross Velazquez MD IMG FLUORO ORDERABLE S * (ABNORMAL) Prothrombin Time (11/28/2012 12:21 PM EST) PT 28.0(H) 11.9 - 14.7 sec DANETTE On[employer] Comment: [facility] Transfusion Committee Guidelines: INR less than 2.0, PTT less than OR equal to 43.5 seconds, or Fibrinogen greater than or equal to 100 mg/dl indicate adequate procoagulant activity for hemostasis in patients without underlying bleeding disorders. INR 2.6(H) 0.9 - 1.1 DANETTE [employer] Blood specimen (specimen) 11/28/2012 12:21 PM EST 11/28/2012 12:34 PM EST Narrative Resulting Agency Comment Spec In Lab Ross Velazquez MD HEMATOLOGY ORDERABLE S [facility] documented in this encounter Visit Diagnoses Diagnosis H/O prostatectomy- Primary Other postprocedural status H/O prostatectomy Other postprocedural status documented in this encounter Care Teams Clinic Scheduler Relationship Specialty Start Date End Date Farnaz Pineda MD [address] [place] [address] PCP - General 10/26/12 documented as of this encounter
--- OUTSIDE RECORDS SUMMARY | 2024-04-20 15:09 | XMS_ITS | Encounter Summary ---
Author Organization [facility] [place] [address] Care Team Providers Care Optician Name Role Phone Farnaz Pineda MD Primary Care Provider [phone] Encounter Details Date Type Department Care Team (Latest Contact Info) Description 10/31/2012 6:44 AM EST - 10/31/2012 11:59 PM EST Hospital [place] [address] Ross Velazquez MD [facility] [place] [address] Discharge Disposition: Home Social History Tobacco Use [...] Priority Date/Time Associated Diagnosis Comments SURGICAL PATHOLOGY REPORT Routine 10/31/2012 7:49 AM EST documented in this encounter Results * Surgical Pathology Report (10/31/2012 7:49 AM EST) Surgical Pathology Report ? [facility] ? Provider: ?? HYAMS, ROSS S ?Pt. Name: ?? MIKAELADILLAN ? Acc #: ?[id number] ?Pt. ? Col Date: ?? 10/31/2012 ? /Sex: ?1950,(62 years),Male ? Rec Date: ?? 10/31/2012 ? LOC: ?[facility] ? SURGICAL PATHOLOGY ? ---Pathologic Diagnosis--- ? CONSULTATION CASE ? Outside slides labeled [id number], collection date 10/05/12: ? 1 - Prostate, right lateral apex, needle core biopsy: ? Adenocarcinoma, Shasha grade 3 + 3, involving approximately ? 10% of the single biopsy core. ? 2 - Prostate, right apex medial, needle core biopsy: ? Adenocarcinoma, Shasha grade 3 + 3, involving approximately ? 10% of the single biopsy core. ? 3 - Prostate, right mid lateral, needle core biopsy: ? Benign prostatic tissue. ? 4 - Prostate, right mid medial, needle core biopsy: ? Benign prostatic tissue. ? 5 - Prostate, right base lateral, needle core biopsy: ? Benign prostatic tissue. ? 6 - Prostate, right base medial, needle core biopsy: ? Benign prostatic tissue. ? 7 - Prostate, left apex lateral, needle core biopsy: ? Benign prostatic tissue. ? 8 - Prostate, left apex medial, needle core biopsy: ? Benign prostatic tissue. ? 9 - Prostate, left mid lateral, needle core biopsy: ? 1. ??Adenocarcinoma, Sparks grade 4 + 4, involving ? approximately 20% of the single biopsy core. ? 2. 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 ? 10 - Prostate, left mid medial, needle core biopsy: ?Adenocarcinoma, Shasha grade 4 + 5, involving approximately ?10% of the single biopsy core. ? 11 - Prostate, left base lateral, needle core biopsy: ?Benign prostatic tissue. ? 12 - Prostate, left base medial, needle core biopsy: ?Benign prostatic tissue. ? [facility] ? Provider: ?? ROSS VELAZQUEZ ?Pt. Name: ?? DILLAN AL ? Acc #: ?[id number] ?Pt. ? Col Date: ?? 10/31/2012 ? /Sex: ?1950,(62 years),Male ? Rec Date: ?? 10/31/2012 ? LOC: ?[facility] ? SURGICAL PATHOLOGY ? CR-0 ? 11/03/12 ? VMS ? 11/03/12 Verified by: ? Bernard Gould MD ? Pathologist ? (Electronic Signature) ? The attending pathologist whose signature appears on this report has ? reviewed all diagnostic slides and has edited the gross and/or ? microscopic portion of the report in rendering the final pathologic ? diagnosis. ? ---Microscopic Description--- ? Slides reviewed, microscopic description not recorded. ? ---Gross Description--- ? [facility] ([facility]) pathology slide(s) are reviewed. ??Refer ? to Diagnosis and Specimen Submitted for specific case information. ? For the full text of the [facility] report(s) please refer to Non-DH ? Documentation Pathology in the electronic health record (eDH). ? ---Clinical Information--- ? Specimen Submitted: ? CONSULTATION CASE ? A - 25 slides labeled [id number], collection date 10/05/12. ? [id number] ? Report to: ? [facility] ? Surgical Pathology Department ? [facility], [facility], 2nd Floor ? [address] [place] [address] Avenue ? [place], [place] ??[address] ? DANETTE VALENCIA 10/31/2012 7:49 AM EST Ross Velazquez MD PATHOLOGY/CYTOLOGY O RDERABLES DANETTE VALENCIA documented in this encounter Visit Diagnoses Not on filedocumented in this encounter Care Teams Optician Relationship Specialty Start Date End Date Farnaz Pineda MD [address] [place] [address] PCP - General 10/26/12 documented as of this encounter
--- OUTSIDE RECORDS SUMMARY | 2024-04-20 15:09 | XMS_ITS | Encounter Summary ---
Author Organization [facility] [place] [address] Care Team Providers Care Manager Revenue Name Role Phone Farnaz Pineda MD Primary Care Provider [phone] Encounter Details Date Type Department Care Team (Late st Contact Info) Description 11/02/2012 1:40 PM EST Clinical [place] [address] Social History Tobacco Use Types Packs/Day Years Used Date Smoking Tobacco: Former Cigarettes Q uit: 11/02/1986 Sex and Gender Information Value Date Recorded Sex Assigned at Not on file Gender Identity Not on file Sexual Orientation Not on file documented as of this encounter Last Filed Vital Signs Vital Sign Reading Time Taken Comments Blood Pressure - - Pulse 96 11/02/2012 1:11 PM EST Temperature - - Respiratory Rate - - Oxygen Saturation 96% 11/02/2012 1:11 PM EST Inhaled Oxygen Concentration - - Weight - - Height - - Body Mass Index - - documented in this encounter Progress Notes * Db Grant, RN - 11/02/2012 1:29 PM EST PAT questionnaire reviewed with patient while in pre-admission testing. Pre- operative teaching folder reviewed with patient ~ expresses good understanding of all information reviewed. Pt had heart surgery 10 years ago and did fine with general anesthesia. OR scheduled with Hyams for 11/20. Blood work and EKG to be done today. documented in this encounter Plan of Treatment Not on file documented as of this encounter Visit Diagnoses Not on filedocumented in this encounter Care Teams Manager Revenue Relationship Specialty Start Date End Date Farnaz Pineda MD [address] [place] [address] PCP - General 10/26/12 documented as of this encounter
--- OUTSIDE RECORDS SUMMARY | 2024-04-20 15:09 | XMS_ITS | Encounter Summary ---
Author Organization [facility] [place] [address] Care Team Providers Care Lead Ingot Molder Name Role Phone Farnaz Pineda MD Primary Care Provider Encounter Details Date Type Department Care Team (Latest Contact Info) Description 11/20/2012 6:01 AM EST - 11/21/2012 6:28 PM [facility] Hospital Encounter [address] [place] [id number] Presley Madrid MD [facility] [place] [address] History of prosthetic aortic valve Discharge Disposition: Home Social History Tobacco Use [...] Sign Reading Time Taken Comments Blood Pressure 108/60 11/21/2012 10:58 AM EST Pulse 92 11/21/2012 10:58 AM EST Temperature 36.5 ??C (97.7 ??F) 11/21/2012 10:[address] Respiratory Rate 18 11/21/2012 10:58 AM EST Oxygen Saturation 95% 11/21/2012 10:58 AM EST Inhaled Oxygen Concentration - - Weight 99 kg (218 lb 4.1 oz) 11/20/2012 5:00 PM EST Height 172.7 cm (5' 8) 11/20/2012 3:56 PM EST Body Mass Index 33.19 11/20/2012 3:56 PM EST documented in this encounter Discharge Instructions * Patient Instructions* Alvaro Ledesma Castillo - 11/21/2012 2:23 PM EST Post Operative Instructions after Prostatectomy Pain Control: Take ibuprofen 800mg every 8 hours for the next two weeks for pain control. If you have moderate pain, take Vicodin as needed. Bowel regimen: Take colace twice daily to keep bowel movements soft. If you experience diarrhea, stop taking the colace. Call your doctor for: fevers greater than 100.5 severe nausea or vomiting increasing pain not controlled by pain medications increasing redness or drainage from incisions decreased urine output our if your catheter is no longer draining. The number for questions is [phone] before 5 PM weekdays and [phone] after 5 PM and weekends. Activity level: No heavy lifting greater than 10 pounds (about equal to a full gallon jug) for the next 4 weeks or until cleared to do so at follow-up appointment. Otherwise activity as tolerated by comfort level. Womack Catheter Care: Keep the catheter in place, to gravity. May attach leg bag to Right leg as tolerated. Diet: You may resume your regular diet as tolerated. Driving: No driving while still taking opioid pain medications (wait at least 6- 8 hours since last dose). No driving with your catheter in place as it may limit your ability to react quickly if necessary. Shower/Bath: You may shower and get incision(s) wet. Pat dry immediately following. Do not scrub them vigorously for the next 2-3 weeks. Do not soak incision(s) (i.e. soaking in bath or swimming) until told you may do so by a doctor, as this may promote a wound infection. Wound Care: You may cover wounds with sterile gauze as needed to prevent incision rubbing on clothes or for any seepage. Follow up Appointments: Follow-up appointment will be scheduled with Dr. Madrid in 1 week for a voiding trial and wound check. Appointment will be mailed to you. You will have another appointment in 4-6 weeks for PSA check. Please call [phone] (clinic number for appointments) to confirm date and time of your appointment if you do not receive your apointment in 2-3 days. documented in this encounter Medications at Time [...] as of this encounter Progress Notes * Christin Awad RN - 11/21/2012 6:00 PM EST 1800: Went over discharge instructions with pt and pt's (who is also an RN), all questions answered, both stated that they understood. PIV DC'd. Womack catheter education provided, both stated they understood. Pt left unit in wheelchair pushed by staff. * Angelica Valle RN - 11/21/2012 1:21 PM EST Met with Dillan , his and daughter for discharge Options. He is independent in activities. Provided booklets on womack cre and what to expect after [facility] at home. His is an RN and has been doing his injections at home prior to admission and is concerned with the cost as their deductible hadnot been met prior to admission. [facility] pharmacy is unable to run the prescription/coverage through insurance without a hard script.TC to [facility] and unable to locate his information and sent to [facility] [phone] and spoke with Farnaz who could not locate his information either.. To get her insurance card for further information. Cost without isnruance is $1182.20.Met with Dillan and Jade again to inform them that unable to obtain benefit information for his lovenox with the information that we have.Copied his card for benefit information and unable to get arepresenative to discuss this. wrote script for this medications Lovenox 100mg sc bid x7 days and will call the outpatient pharmacy for cost and coverage. Pt to receive instructions, medicitions, activitty and f/u appointment prior to discharge. ANGELICA VALLE RN11/21/2012 vi NDRA * Presley Madrid MD - 11/21/2012 9:05 AM EST ID: Dillan Al is a 62 y.o. male who is s/p Procedure(s) (LRB): @LAPAROSCOPIC PROSTATECTOMY, ROBOTICS ASSISTED (N/A) LAPAROSCOPY,WITH BILATERAL TOTAL PELVIC LYMPHADENECTOMY, ROBOTIC (Bilateral) 1 Day Post-Op 24hr events Tolerating diet Hep drip started yesterday, stopped this am Subjective: no complaints this AM, denies n/v/cp/sob O: Temperature Temp: 36.8 ??C (98.2 ??F) Temp: [36.3 ??C (97.3 ??F)-37 ??C (98.6 ??F)] Heart Rate Heart Rate: 92 Heart Rate: [59-95] Blood Pressure BP: 103/66 mmHg BP: (96-121)/(60-86) Respiratory Rate Resp: 18 Resp: [12-18] SpO2 SpO2: 98 % SpO2: [92 %-99 %] 11/20 0701 - 11/21 0700 In: 5434.6 [P.O.:435; I.V.:4999.6] Out: 1445 [Urine:1275] SHAINA 70 Physical Exam Gen: NAD, resting comfortable CVS: NSR no m/r/g Resp: CTA anteriorly Abd: soft, nontender, nondistended Wound:incisions CDI SHAINA w SS fluid Womack with Dark pink urine Ext: SCDs in place, wwp, no edema Labs Recent Labs Basename 11/21/12 0411 11/20/12 2159 11/20/12 1531 11/20/12 1300 11/20/12 0612 WBC 11.9* 11.3* 10.9* 12.1* -- HGB 12.9* 13.6* 13.8 13.9 -- HCT 40.7 42.8 43.0 43.8 -- PLATELET 217 214 197 222 -- PT 13.8 -- -- -- 12.4 INR 1.0 -- -- -- 0.9 PTT 113* 51* -- -- 29 FIBRINOGEN -- -- -- -- -- Recent Labs Basename 11/20/12 1220 NA 139 K 4.6 CL 103 CO2 28 BUN 16 CREATININE 1.15 GLUCOSE 142 CALCIUM 8.3* MAGNESIUM -- PHOS -- Meds Scheduled Meds enoxaparin 100 mg Subcutaneous Q12H warfarin 7.5 mg Oral QPM warfarin (COUMADIN) daily order reminder Oral Q24H fluticasone-salmeterol 1 puff Inhalation Q12H levothyroxine 50 mcg Oral QAM montelukast 10 mg Oral Nightly docusate sodium 100 mg Oral BID DISCONTD: sodium chloride 0.9 % 5 mL Intravenous Q12H DISCONTD: ceFAZolin 2 g Intravenous Q8H PRN Meds zolpidem 5 mg Nightly PRN naloxone 0.2 mg Q1 Min PRN ondansetron 4 mg Q8H PRN Or ondansetron 4 mg Q8H PRN hydroCODone-acetaminophen 1-2 tablet Q4H PRN acetaminophen 1,000 mg Q6H PRN morphine 4 mg Q4H PRN DISCONTD: fentaNYL (PF) 25-50 mcg Q5 Min PRN DISCONTD: HYDROmorphone 0.2-0.4 mg Q5 Min PRN DISCONTD: ondansetron 4 mg Q30 Min PRN DISCONTD: naloxone 40 mcg Q5 Min PRN DISCONTD: ceFAZolin Once PRN DISCONTD: cellulose, oxidized Once PRN DISCONTD: heparin (porcine) 3,400 Units BOLUS HEPARIN PP Infusions ??? sodium chloride 0.9% 100 mL/hr (11/21/12 0822) ??? DISCONTD: lactated ringers 1,000 mL (11/20/12 1229) ??? DISCONTD: heparin 1,450 Units/hr (11/21/12 0615) Home Meds: No current facility-administered medications on file prior to encounter. Current Outpatient Prescriptions on File Prior to Encounter Medication Sig Dispense Refill ??? omeprazole (PRILOSEC) 20 mg capsule Take [...] tablet Take 50 mcg by mouth daily. Assessment Dillan Al is a 62 y.o. male who is s/p Procedure(s) (LRB): @LAPAROSCOPIC PROSTATECTOMY, ROBOTICS ASSISTED (N/A) LAPAROSCOPY,WITH BILATERAL TOTAL PELVIC LYMPHADENECTOMY, ROBOTIC (Bilateral) 1 Day Post-Op progressing well postoperatively, tolerating regular diet, bridging with lovenox, coumadin started for his Mechanical aortic valve Plan Neuro: Vicodin for pain CV/PULM: home meds GI/FEN: Regular : womack stays for a week HEME/ID: stable, started lovenox bridge to coumadin PROPH: lovenox DISPO: Can possibly go home this pm ALVARO LEDESMA MD Attending Addendum: Patient seen and examined. Agree with plan as above. * Ree Shirley RN - 11/21/2012 6:45 AM EST 0500, Urine with increase red color and out put down. Womack catheter flushed gently with 30 ml sterile saline without difficulty. No clots noted. MD aware of urine output decreased but still within limits. Po fluids encouraged. Will continue to monitor output. * Ree Shirley RN - 11/21/2012 6:[address] Hale notified of PTT 51, protocol followed and heparin gtt increased to 37 ml per hour at 2300. Labs redrawn at 0400 as ordered. At 0530 Dr Hale notified of PTT 113. Heparin gtt stopped per MD's orders at 0530. Heparin gtt restarted at [address] Ledesma at rate of 29 ml per hour. NDRA * Alvaro Ledesma - 11/20/2012 2:28 PM EST Progress Note/Post Op Check Procedure/Intervention: @LAPAROSCOPIC PROSTATECTOMY, ROBOTICS ASSISTED LAPAROSCOPY,WITH BILATERAL TOTAL PELVIC LYMPHADENECTOMY, ROBOTIC Findings: 1.) palpable nodules bilaterally 2.) no gross evidence of metastatic disease 3.) bilateral pelvic nodes sent for pathology 4.) water tight anastomosis S: Dillan Al is currently resting comfortably with no complaints. Pain well controlled. Denies any nausea or vomiting, fevers, chills, chest pain, palpitations, or shortness of breath. Tolerating clears O: Post-Op Vitals: Last value Range last 12 hrs Temperature Temp: 36.3 ??C (97.3 ??F) Temp: [36.3 ??C (97.3 ??F)] Heart Rate Heart Rate: 77 Heart Rate: [59-85] Blood Pressure BP: 111/70 mmHg BP: (96-130)/(64-86) Respiratory Rate Resp: 12 Resp: [12-18] SpO2 SpO2: 96 % SpO2: [92 %-100 %] I/Os: Date 11/20/12 07 - 11/21/1259 Shift 2418-1339 8042-6061 6803-8778 24 Hour Total I N T A K E I.V. (mL/kg/hr) 3007.6 3007.6 Shift Total (mL/kg) 3007.6 (31.1) 3007.6 (31.1) O U T P U T Urine (mL/kg/hr) 275 275 Other 25 25 Blood 100 100 Shift Total (mL/kg) 400 (4.1) 400 (4.1) Weight (kg) 96.6 96.6 96.6 96.6 Physical Exam: Abd Soft Jeancarlos with SS fluid Womack in with pink urine, no clots Labs/Microbiology: Pending Lab Results Component Value Date WBC 12.1* 11/20/2012 RBC 4.63 11/20/2012 HGB 13.9 11/20/2012 HCT 43.8 11/20/2012 MCV 94.6* 11/20/2012 MCH 30.0 11/20/2012 MCHC 31.7* 11/20/2012 PLATELET 222 11/20/2012 RDWCV 15.6* 11/20/2012 Electrolytes Lab Results Component Value Date Potassium 4.6 11/20/2012 CO2 28 11/20/2012 Lab Results Component Value Date BUN 16 11/20/2012 CREATININE 1.15 11/20/2012 Imaging/Other Diagnostic Results: None Assessment and Recommendations: Progressing well postoperatively Orders verified Continue ordered post-operative care Baseline INR 0.9 this am. HgB 13.9 Will repeat HgB at 1530 and if stable, start hep drip ADAT Alvaro Ledesma MD [phone] * Inga Edgar RN - 11/20/2012 12:24 PM EST BMP sent. 1225 placed on RA stil has oral airway in place 1238: NC o2 at 2 liters, patient opens eyes, oral airway removed, nods to voice. * Marcos Perez RN - 11/20/2012 12:02 PM EST Patient arrived from OR unresponsive with Oral airway in place, patient obstructing with airway in place and requiring additional chin lift to maintain patent airway. Oral airway removed and replacedwith larger size. Patient now maintaining patent airway without intervention. Lap sites x 5 CDI, abdomen rounded but soft, SHAINA dressing CDI, womack draining dark pink to light red urine, no clots noted. Lungs CTA, VSS. Will monitor. 1217 Repor to Karri Edgar RN. Patient still asleep, but becoming more arousable. 1245 report back from Karri Edgar RN. VSS, patient asleep. Labs drawn and sent. 1252 Dr Boogie at bedside to see patient. Denies pain/nausea. Dozes back to sleep quickly. 1315 Patient states in [place] when asked where his is but does not elaborate when pressed. States he feels wiped out and dozes back to sleep quickly when left alone. 1320 Patient now answering questions appropriately when awakened. Denies pain/nausea. 1345 Report to Christin DELA CRUZ. Info/orders reviewed, questions answered. Patient ready for transfer [facility] when transport arrives. documented in this encounter H&P Notes * Ian Quesada MD - 11/20/2012 7:20 AM EST INTERVAL NOTE Pt presents for RALP for high risk CaP, has hx of mechanical AVR currently on lovenox bridge, last injxn yesterday, last coumadin 8 days prior. He has had no interval change. See Dr. Madrid' note below for his details. CLINIC NOTE This is a pleasant 62 year old [...] a TRUS biopsy on 10/19/12. This revealed G[place]den 4+5=9 prostate adenocarcinoma as below per outside path report: R apex - [place]den 3+3=7, 9% 2/2 cores L latl mid - [place]den 4+4=8, 19% 1/1 core L mid - [...] and affect. A/P: High risk prostate cancer, G[place]den 4+5=9, PSA 7.1, T1c - We discussed [...] a risk of micrometastatic disease given his Gadsden 9 diagnosis. I counseled the patient that [...] testing and communicate with his PCP and/or spinner frame regarding clearance and a bridging regimen for his coumadin.His and his 's questions were answered in detail. 46 of 50 minutes spent in counseling and coordination of care documented in this encounter Procedure Notes * Provider, Scanning - 12/27/2012 9:13 AM EDTAssociated Order(s): SCAN DOC: LAB documented in this encounter Miscellaneous Notes * Miscellaneous - Provider, Scanning - 12/27/2012 9:13 AM EDT * Miscellaneous - Provider, Scanning - 11/22/2012 11:09 AM EST * Miscellaneous - Provider, Scanning - 11/22/2012 11:09 AM EST * Plan of Care - Christin Awad RN - 11/21/2012 11:00 AM EST Problem: Pressure Ulcer Risk (Using Josh Scale) (Adult, Obstetric) Goal: Pressure Ulcer Risk (using Josh Scale): Tissue Integrity Outcome: Absent and monitoring Skin assessed, dry and intact, pt frequently ambulating in hallways. Nutrition/hydration promoted, able to reposition self. Problem: Trauma/Injury Risk (Adult, Obstetric) Goal: Trauma/Injury Risk: Absence of Trauma/Injury/Falls Outcome: Absent and monitoring See doc flow sheets for interventions. Problem: Pain, Acute (Adult, Obstetric) Goal: Acute Pain: Acceptable Pain Control/Comfort Level - Pain, Acute (Adult, Obstetric) Outcome: Absent and monitoring Pt reports lower abdominal pressure that is relieved by tylenol, will continue to monitor/re-assess. * Plan of Care - Ree Shirley RN - 11/21/2012 3:43 AM EST Problem: Pressure Ulcer Risk (Using Josh Scale) (Adult, Obstetric) Goal: Pressure Ulcer Risk (using Josh Scale): Tissue Integrity Outcome: Absent and monitoring No signs of skin breakdown noted. Patient able to repositioned/adjust himself in bed. Will continueto monitor and assess. Problem: Trauma/Injury Risk (Adult, Obstetric) Goal: Trauma/Injury Risk: Absence of Trauma/Injury/Falls Outcome: Absent and monitoring Patient safety physically maintained through environment. Call light in reach at all times. Bed in low position. Fall risk assessment completed during this shift, see doc flow sheet for full intervention and prevention. Will continue to monitor. Problem: Pain, Acute (Adult, Obstetric) Goal: Acute Pain: Acceptable Pain Control/Comfort Level - Pain, Acute (Adult, Obstetric) Outcome: Absent and monitoring Patient with minimal complaints of pain or discomfort. Received tylenol for general abdominal discomfort with good effect per patient report. Will continue to monitor and assess. * Plan of Care - Christin Awad RN - 11/20/2012 4:14 PM EST Problem: Pressure Ulcer Risk (Using Josh Scale) (Adult, Obstetric) Goal: Pressure Ulcer Risk (using Josh Scale): Tissue Integrity Outcome: Absent and monitoring Skin assessed, dry and intact, heels elevated, pt able to reposition self. Clear liquid diet, tolerating it well, hydration promoted. * Op Note - Presley Madrid MD - 11/20/2012 12:27 PM EST [facility] Operative Note Patient Name: Dillan Al : [id number] MR#: [id number] Case Date: 11/20/2012 Surgeon: Surgeon(s) and Role: * Presley Madrid MD - Primary * Ian Quesada MD Preoperative diagnosis: PROSTATE CANCER Postoperative diagnosis: PROSTATE CANCER Procedure(s): @LAPAROSCOPIC PROSTATECTOMY, ROBOTICS ASSISTED LAPAROSCOPY,WITH BILATERAL TOTAL PELVIC LYMPHADENECTOMY, ROBOTIC General Estimated Blood Loss: 100cc Drains: 18fr womack, abdominal jeancarlos Disposition: awakened from anesthesia, extubated and taken to the recovery room in a stable condition, having suffered no apparent untoward event. Condition: doing well without problems (Please see the Surgical Encounter Summary for any Implant and Specimen details pertinent to this patient.) HPI/Surgical Indications: Hisk prostate cancer counseled on risks/benefits/alternatives of surgery and has elected to proceed. Procedure Description: The patient was brought to the OR and bilateral SCD boots were placed. 2g ancef IV perioperatively was administered. The patient was given general anesthesia and placed in lithotomy position with pressure points carefully padded. He was secured to the table, shaved prepped and draped in standard sterile fashion. Veress needle insufflation was performed to 15mmHg without difficulty in the right mid abdomen, as there was evidence of a possible umbilical hernia. Access with the 5mm Optiview trocarwas performed in the left upper abdomen under vision. The abdomen was inspected and there was no sign of intraabdominal injury. A small umbilical hernia was noted that fell readily into the abdomen wi th gentle abdominal palpation. Then, two robotic trocars were placed under vision in the right abdomen. A robotic trocar was placed in the mid left abdomen, and a 10mm assistant food service director port placed several cm superior to the ASIS. The patient was placed in Trendelenberg position, and the robot was docked with monopolar scissors in right hand, bipolar grasper in the left hand, and the prograsp in the 4th arm. An incision was made on the peritoneum beneath the bladder. The vasa were identified and dissected. They were ligated and the bilateral seminal vesicles were also dissected free. The posterior plane was developed to the apex. Then, a pelvic lymphadenectomy was performed. The peritioneum lateralto the medial umbilical ligament was incised, initially on the right, to the vas deferens, which was ligated. The ligament was traced down to the internal iliac artery. The external iliac artery and vein were identified. The packet overlying the vein was developed and the obdurator nerve identifiedand spared. The packet was peeled cranially to the bifurcation of the iliac, with the ureter preserved medially. The packet was clipped and released. The analogous procedure was performed on the leftside without incident. Then, the bladder was dropped from the anterior abdominal wall by incising lateral to the medial umbilical ligaments. The pubic bone was identified and the space of Retzius developed. Fat was removed from the prostate and endopelvic fascia. The endopelvic fascia was incised bilaterally and the levator muscle swept from the prostate. The puboprostatic ligaments were taken and the apex exposed. The superficial dorsal vein was controlled with cautery. Then, the dorsal vein was ligated with 2-0 vicryl suture; this suture was passed through the pubic bone and secured with a Lapra-Ty. The anterior bladder neck was opened and the catheter visualized. This was suspended underthe pubic bone with the fourth arm. The posterior bladder neck was incised and the the posterior plane from prior dissection was entered. Incision of the posterior bladder neck was noted to be remotefrom the ureteral orifices. The vasa and seminal vesicles were brought into the field. Then, the right prostatic pedicle was taken in packets with Weck clips. The nerve was sacrificed based on high risk disease. The same procedure was performed on the left. Then, the dorsal vein was incised to the urethra, which was identified and isolated. This was incised and transected. Residual rectourethralis was taken and the prostate was freed. The prostate and lymph nodes were placed in specimen bags. The rectum was inspected and there was no sign of injury. An EEA dilator was used to confirm the absence of rectal injury, as Denonvillier's appeared thin on the right side, however no injury was seen. Hemostasis was achieved with small Weck clips on several small vessels on the pedicles. A posteriorreconstruction was performed with a 3-0 monocryl with a Lapra-Ty. The anastamosis was then performed with two interlocked 3-0 monocryl suture. Initially the posterior plate was brought together and secured with Lapra-Tys for a watertight appearance. The anastamosis was run superiorly on each side. This was tied at 12 o'clock. The catheter was irrigated and no leak was noted. The final catheter was placed and the balloon inflated. Repeat testing of the anastamosis noted a dry field. The insufflation was dropped to 8mmHg and no bleeding was noted. At this time, the assistant food service director port was closed with Pritesh Thomasen technique and a drain was placed through the left lateral robotic trocar and placed in the pelvis. This was secured with a 2-0 prolene suture to the skin. The ports were removed under vision. The prostate was extracted through the camera port under vision. The umbilical hernia defect was felt under the fascia and was remote from the camera access port. Fixing this defect would have involved significant extension of the incision. Thus, the fascia for the camera port site was closed with interrupted 0-vicryl suture. The skin incisions were closed with 4-0 monocryl suture and dermabond was applied. The womack was secured to the patient's leg. The patient was woken from anesthesi a and brought to the PACU in stable condition. He tolerated the procedure well. * OR Attestation - Presley Madrid MD - 11/20/2012 11:53 AM EST Attestation: Case Date: 11/20/2012 I was present and I participated during the entire procedure (does not need to include opening and closing). Presley Madrid MD 11/20/2012 * Brief Op Note - Ian Quesada MD - 11/20/2012 11:42 AM EST Brief Operative Note Patient Name: Dillan Al : [id number] MR#: [id number] Case Date: 11/20/2012 Surgeon: Surgeon(s) and Role: * Presley Madrid MD - Primary * Ian Quesada MD Preoperative diagnosis: PROSTATE CANCER Postoperative diagnosis: PROSTATE CANCER Procedure(s): @LAPAROSCOPIC PROSTATECTOMY, ROBOTICS ASSISTED LAPAROSCOPY,WITH BILATERAL TOTAL PELVIC LYMPHADENECTOMY, ROBOTIC Anesthesia: General Findings: 1.) palpable nodules bilaterally 2.) no gross evidence of metastatic disease 3.) bilateral pelvic nodes sent for pathology 4.) water tight anastomosis Complications: none Fluids: 2.8L Estimated Blood Loss: 100cc Drains: 19Fr jeancarlos, 20Fr womack Disposition: awakened from anesthesia, extubated and taken to the recovery room in a stable condition, having suffered no apparent untoward event. Condition: doing well without problems (Please see the Surgical Encounter Summary for any Implant and Specimen details pertinent to this patient.) * Discharge Summary - Alvaro Ledesma - 11/20/2012 9:49 AM EST Inpatient - Discharge Summary Patient Name: Dillan Al Patient Age: 62 y.o. Birthdate: 1950 Admit date: 11/20/2012 Discharge date and time: 11/21/12 Attending Physician: Presley Madrid MD;[facility]* Primary Diagnosis: S/P prostatectomy Secondary Diagnosis: Active Hospital Problems Diagnoses ??? S/P prostatectomy ??? Prostate cancer Resolved Hospital Problems Diagnoses Date Resolved There are no active non-hospital problems to display for this patient. HPI: This is a pleasant 62 year old [...] a TRUS biopsy on 10/19/12. This revealed G[place]den 4+5=9 prostate adenocarcinoma as below per outside path report: R apex - Shasha 3+3=7, 9% 2/2 cores L latl mid - [place] 4+4=8, 19% 1/1 core L mid - [place] 4+5=9, 10% 1/1 cores His DAVIAN has [...] reports. He denies back or bone pain. Operations/Major Procedures: Operations: 11/20/2012 Surgeon(s) and Role: * Presley Madrid MD - Primary * Ian Quesada MD: Procedure(s): @LAPAROSCOPIC PROSTATECTOMY, ROBOTICS ASSISTED LAPAROSCOPY,WITH BILATERAL TOTAL PELVIC LYMPHADENECTOMY, ROBOTIC Hospital Course: Dillan Al was taken to the operating room where the above procedures were performed. He tolerated the operation well and without complication. He was admitted post-operatively for observation and management. The patient's hospital course was uncomplicated and he was deemed stable for dischargeto home on post- operative day 1. He will come back in a week for a voiding trial Pending Lab Data at Discharge: None Condition at Discharge: Stable Important Studies and Lab Data: Labs: Recent Results (from the past 24 hour(s)) CBC (WITH DIFF) Component Value Range WBC 11.3 (*) 4.0 - 10.0 (x10(3)/mcL) RBC 4.47 (*) 4.63 - 6.08 (x10(6)/mcL) Hemoglobin 13.6 (*) 13.7 - 17.5 (gm/dL) Hematocrit 42.8 40.0 - 51.0 (%) MCV 95.7 (*) 79.0 - 92.0 (fL) MCH 30.4 25.6 - 32.2 (pg) MCHC 31.8 (*) 32.0 - 36.5 (gm/dL) Platelets 214 145 - 370 (x10(3)/mcL) RDWSD 53.8 (*) 35.0 - 46.0 (fL) RDWCV 15.4 (*) 10.9 - 14.4 (%) MPV 10.1 9.0 - 12.0 (fL) APTT Component Value Range PTT 51 (*) 25 - 35 (sec) DIFFERENTIAL, AUTOMATED Component Value Range Neutrophils % 88.5 (*) 34.0 - 71.0 (%) Neutr Abs (ANC) 10.02 (*) 1.50 - 6.30 (x10(3)/mcL) Lymphocytes % 8.8 (*) 19.0 - 53.0 (%) Lymphocytes Abs 1.0 1.0 - 3.6 (x10(3)/mcL) Monocytes % 2.4 (*) 4.0 - 13.0 (%) Monocyte Abs 0.3 0.2 - 1.0 (x10(3)/mcL) Eosinophils % 0.0 0.0 - 7.0 (%) Eosinophils Abs 0.0 0.0 - 0.5 (x10(3)/mcL) Basophils % 0.1 0.0 - 2.0 (%) Basophils Abs 0.0 0.0 - 0.2 (x10(3)/mcL) Immature Gran % 0.20 0.00 - 0.66 (%) Yeni Gran Abs 0.02 0.00 - 0.05 (x10(3)/mcL) APTT Component Value Range PTT 113 (*) 25 - 35 (sec) CBC (WITH DIFF) Component Value Range WBC 11.9 (*) 4.0 - 10.0 (x10(3)/mcL) RBC 4.31 (*) 4.63 - 6.08 (x10(6)/mcL) Hemoglobin 12.9 (*) 13.7 - 17.5 (gm/dL) Hematocrit 40.7 40.0 - 51.0 (%) MCV 94.4 (*) 79.0 - 92.0 (fL) MCH 29.9 25.6 - 32.2 (pg) MCHC 31.7 (*) 32.0 - 36.5 (gm/dL) Platelets 217 145 - 370 (x10(3)/mcL) RDWSD 55.0 (*) 35.0 - 46.0 (fL) RDWCV 15.8 (*) 10.9 - 14.4 (%) MPV 9.7 9.0 - 12.0 (fL) DIFFERENTIAL, AUTOMATED Component Value Range Neutrophils % 80.8 (*) 34.0 - 71.0 (%) Neutr Abs (ANC) 9.62 (*) 1.50 - 6.30 (x10(3)/mcL) Lymphocytes % 6.3 (*) 19.0 - 53.0 (%) Lymphocytes Abs 0.8 (*) 1.0 - 3.6 (x10(3)/mcL) Monocytes % 12.7 4.0 - 13.0 (%) Monocyte Abs 1.5 (*) 0.2 - 1.0 (x10(3)/mcL) Eosinophils % 0.0 0.0 - 7.0 (%) Eosinophils Abs 0.0 0.0 - 0.5 (x10(3)/mcL) Basophils % 0.2 0.0 - 2.0 (%) Basophils Abs 0.0 0.0 - 0.2 (x10(3)/mcL) Immature Gran % 0.00 0.00 - 0.66 (%) Yeni Gran Abs 0.00 0.00 - 0.05 (x10(3)/mcL) PROTHROMBIN TIME Component Value Range PT 13.8 11.9 - 14.7 (sec) INR 1.0 0.9 - 1.1 Studies: none Exam: Temp: [36.5 ??C (97.7 ??F)-37 ??C (98.6 ??F)] Heart Rate: [82-100] Resp: [16-18] BP: (102-124)/(60-74) SpO2: [95 %-98 %] I/O last 3 completed shifts: In: 5434.6 [P.O.:435; I.V.:4999.6] Out: 1445 [Urine:1275; Other:70; Blood:100] I/O this shift: In: 1533 [P.O.:600; I.V.:933] Out: 1055 [Urine:1025; Other:30] Gen: NAD, resting comfortable CVS: NSR no m/r/g Resp: CTA anteriorly Abd: soft, nontender, nondistended Wound:incisions CDI SHAINA w SS fluid -Taken out prior to discharge Womack with Dark pink urine Discharge to: Home Discharge Conditions/Prognosis: Stable Discharge Medications: Medications prior to admission that will be resumed at discharge: Medication Sig Dispense Refill ??? ENOXAPARIN SODIUM (LOVENOX SUBQ) Inject 100 mg [...] tablet Take 50 mcg by mouth daily. New medications prescribed at discharge: Medication Sig Dispense Refill ??? docusate sodium (COLACE) 100 mg capsule Take 1 capsule by mouth 2 times daily for 10 days. 10 capsule ??? hydroCODone-acetaminophen (VICODIN) 5-500 mg per tablet Take 1-2 tablets by mouth every 4 hoursas needed for Pain. 30 tablet 0 ??? enoxaparin (LOVENOX) 100 mg/mL Syrg injection Inject 1 mL subcutaneously every 12 hours for 7 days. 14 mL 0 Updated Allergies/ADRs: No Known Allergies Follow-up Recommendations for Providers: Patient is on Lovenox bridge, he has received his first coumadin dose tonight. Please follow up on INR PCP: Farnaz Pineda MD Scheduled Appointments: No future appointments. Outpatient Services/Studies: No discharge procedures on file. Instructions Given to Patient at Discharge:. An After Visit Summary was printed and given to the patient. Provider Instructions Post Operative Instructions after Prostatectomy Pain Control: Take ibuprofen 800mg every 8 hours for the next two weeks for pain control. If you have moderate pain, take Vicodin as needed. Bowel regimen: Take colace twice daily to keep bowel movements soft. If you experience diarrhea, stop taking the colace. Call your doctor for: fevers greater than 100.5 severe nausea or vomiting increasing pain not controlled by pain medications increasing redness or drainage from incisions decreased urine output our if your catheter is no longer draining. The number for questions is [phone] before 5 PM weekdays and [phone] after 5 PM and weekends. Activity level: No heavy lifting greater than 10 pounds (about equal to a full gallon jug) for the next 4 weeks or until cleared to do so at follow-up appointment. Otherwise activity as tolerated by comfort level. Womack Catheter Care: Keep the catheter in place, to gravity. May attach leg bag to Right leg as tolerated. Diet: You may resume your regular diet as tolerated. Driving: No driving while still taking opioid pain medications (wait at least 6- 8 hours since last dose). No driving with your catheter in place as it may limit your ability to react quickly if necessary. Shower/Bath: You may shower and get incision(s) wet. Pat dry immediately following. Do not scrub them vigorously for the next 2-3 weeks. Do not soak incision(s) (i.e. soaking in bath or swimming) until told you may do so by a doctor, as this may promote a wound infection. Wound Care: You may cover wounds with sterile gauze as needed to prevent incision rubbing on clothes or for any seepage. Follow up Appointments: Follow-up appointment will be scheduled with Dr. Madrid in 1 week for a voiding trial and wound check. Appointment will be mailed to you. You will have another appointment in 4-6 weeks for PSA check. Please call [phone] (clinic number for appointments) to confirm date and time of your appointment if you do not receive your apointment in 2-3 days. General Instructions None Provider Contact Information: [facility]. If you have any questions or concerns, please feel free to contact us. Provider Contact Information: Urology Clinic: [facility] (after business hours): Signed: ALVARO LEDESMA MD 11/21/2012 * Miscellaneous - Provider, Scanning - 11/20/2012 6:24 AM EST documented in this encounter Plan of Treatment Not on file documented as of this encounter Procedures Procedure Name Priority Date/Time Associated Diagnosis Comments LAB SCAN 12/27/2012 9:13 AM EDT DIFFERENTIAL, AUTOMATED Routine 11/21/19 13 4:11 AM EST APTT Routine 11/21/2012 4:11 AM EST PROTHROMBIN TIME Routine 11/21/2012 4:11 AM EST CBC (WITH DIFF) Routine 11/21/2012 4:11 AM EST DIFFERENTIAL, AUTOMATED Timed 11/20/19 13 9:59 PM EST APTT STAT 11/20/2012 9:59 PM EST CBC (WITH DIFF) Timed 11/20/2012 9:59 PM EST DIFFERENTIAL, AUTOMATED Timed 11/20/19 13 3:31 PM EST CBC (WITH DIFF) Timed 11/20/2012 3:31 PM EST DIFFERENTIAL, AUTOMATED Routine 11/20/19 13 1:00 PM EST CBC (WITH DIFF) Routine 11/20/2012 1:00 PM EST BASIC METABOLIC PANEL (NON-FASTING) Routine 11/20/2012 12:20 PM EST SURGICAL PATHOLOGY REPORT Routine 11/20/2012 12:02 PM EST SPECIMEN TO PATHOLOGY Routine 11/20/2012 10:19 AM EST SPECIMEN TO PATHOLOGY Routine 11/20/2012 10:19 AM EST SPECIMEN TO PATHOLOGY Routine 11/20/2012 10:19 AM EST ROBOTIC LAPAROSCOPY,WITH BILATERAL TOTAL PELVIC LYMPHADENECTOMY (WRVU 12) 11/20/2012 7:16 AM EST PROSTATE CANCER ROBOTIC LAPAROSCOPIC PROSTATECTOMY (WRVU 22.46) 11/20/2012 7:16 AM EST PROSTATE CANCER ABO/RH TYPING Routine 11/20/2012 6:12 AM EST APTT Routine 11/20/2012 6:12 AM EST PROTHROMBIN TIME Routine 11/20/2012 6:12 AM EST ANTIBODY SCREEN Routine 11/20/2012 6:12 AM EST TYPE AND SCREEN ([facility]/CGP/CONSTANTINE) Routine 11/20/2012 6:12 AM EST documented in this encounter Results * SCAN DOC: LAB (12/27/2012 9:13 AM EDT) Narrative 12/27/2012 9:13 AM EDT Procedure Note Provider, Scanning - 12/27/2012 9:13 AM EDT Scanning Provider MEDIA MGR SCAN EXT O RDR/RSLT * Prothrombin Time (11/21/2012 4:11 AM EST) PT 13.8 11.9 - 14.7 sec DANETTE [facility] Comment: [facility] Transfusion Committee Guidelines: INR less than 2.0, PTT less than OR equal to 43.5 seconds, or Fibrinogen greater than or equal to 100 mg/dl indicate adequate procoagulant activity for hemostasis in patients without underlying bleeding disorders. INR 1.0 0.9 - 1.1 CERNER MILLENNIUM Blood specimen (specimen) 11/21/2012 4:11 AM EST 11/21/2012 4:20 AM EST Narrative Resulting Agency Comment Spec In Lab Presley Madrid MD HEMATOLOGY ORDERABLE S CERNER MILLENNIUM * (ABNORMAL) Differential, Automated (11/21/2012 4:11 AM EST) Neutrophils % 80.8(H) 34.0 - 71.0 % CERNER MILLENNIUM Neutr Abs (ANC) 9.62(H) 1.50 - 6.30 x10(3)/mc L CERNER MILLENNIUM Lymphocytes % 6.3(L) 19.0 - 53.0 % CERNER MILLENNIUM Lymphocytes Abs 0.8(L) 1.0 - 3.6 x10(3)/mc L CERNER MILLENNIUM Monocytes % 12.7 4.0 - 13.0 % CERNER MILLENNIUM Monocyte Abs 1.5(H) 0.2 - 1.0 x10(3)/mc L CERNER MILLENNIUM Eosinophils % 0.0 0.0 - 7.0 % CERNER MILLENNIUM Eosinophils Abs 0.0 0.0 - 0.5 x10(3)/mc L CERNER MILLENNIUM Basophils % 0.2 0.0 - 2.0 % CERNER MILLENNIUM Basophils Abs 0.0 0.0 - 0.2 x10(3)/mc L CERNER MILLENNIUM Immature Gran % 0.00 0.00 - 0.66 % CERNER MILLENNIUM Comment: Immature granulocytes(IG's)percentage and absolute count will include metamyelocytes, myelocytes, and promyelocytes. Blood smears from CBCs yielding IG's will be scanned manually for concordance. If this scan disagrees with the automated IG or if promyelocytes are noted, a manual differential will be performed. Yeni Gran Abs 0.00 0.00 - 0.05 x10(3)/mc L CERNER MILLENNIUM Blood specimen (specimen) 11/21/2012 4:11 AM EST 11/21/2012 4:20 AM EST Presley Madrid MD HEMATOLOGY ORDERABLE S CERNER MILLENNIUM * (ABNORMAL) CBC (with Diff) (11/21/2012 4:11 AM EST) WBC 11.9(H) 4.0 - 10.0 x10(3)/mcL CERNER MILLENNIUM RBC 4.31(L) 4.63 - 6.08 x10(6)/mcL CERNER MILLENNIUM Hemoglobin 12.9(L) 13.7 - 17.5 gm/dL CERNER MILLENNIUM Hematocrit 40.7 40.0 - 51.0 % CERNER MILLENNIUM MCV 94.4(H) 79.0 - 92.0 fL CERNER MILLENNIUM MCH 29.9 25.6 - 32.2 pg CERNER MILLENNIUM MCHC 31.7(L) 32.0 - 36.5 gm/dL CERNER MILLENNIUM Platelets 217 145 - 370 x10(3)/mcL CERNER MILLENNIUM RDWSD 55.0(H) 35.0 - 46.0 fL CERNER MILLENNIUM RDWCV 15.8(H) 10.9 - 14.4 % CERNER MILLENNIUM MPV 9.7 9.0 - 12.0 fL CERNER MILLENNIUM Blood specimen (specimen) 11/21/2012 4:11 AM EST 11/21/2012 4:20 AM EST Narrative Resulting Agency Comment Spec In Lab Presley Madrid MD HEMATOLOGY ORDERABLE S CERDAKSHA MILLENNIUM * (ABNORMAL) APTT (11/21/2012 4:11 AM EST) PTT 113(H) 25 - 35 sec CERNER MILLENNIUM Comment: Recommended therapeutic PTT range for full dose unfractionated heparin is 80-114 seconds. Blood specimen (specimen) 11/21/2012 4:11 AM EST 11/21/2012 4:20 AM EST Narrative Resulting Agency Comment Spec In Lab Presley Madrid MD HEMATOLOGY ORDERABLE S CERNER MILLENNIUM * (ABNORMAL) Differential, Automated (11/20/2012 9:59 PM EST) Neutrophils % 88.5(H) 34.0 - 71.0 % CERNER MILLENNIUM Neutr Abs (ANC) 10.02(H) 1.50 - 6.30 x10(3)/mc L CERNER MILLENNIUM Lymphocytes % 8.8(L) 19.0 - 53.0 % CERNER MILLENNIUM Lymphocytes Abs 1.0 1.0 - 3.6 x10(3)/mc L CERNER MILLENNIUM Monocytes % 2.4(L) 4.0 - 13.0 % CERNER MILLENNIUM Monocyte Abs 0.3 0.2 - 1.0 x10(3)/mc L CERNER MILLENNIUM Eosinophils % 0.0 0.0 - 7.0 % CERNER MILLENNIUM Eosinophils Abs 0.0 0.0 - 0.5 x10(3)/mc L CERNER MILLENNIUM Basophils % 0.1 0.0 - 2.0 % CERNER MILLENNIUM Basophils [...] x10(3)/mc L CERNER MILLENNIUM Blood specimen (specimen) 11/20/2012 9:59 PM EST 11/20/2012 10:12 PM EST Presley Madrid MD HEMATOLOGY ORDERABLE S CERDAKSHA MILLENNIUM * (ABNORMAL) APTT (11/20/2012 9:59 PM EST) PTT 51(H) 25 - 35 sec CERNER MILLENNIUM Comment: Recommended therapeutic PTT range for full dose unfractionated heparin is 80-114 seconds. Blood specimen (specimen) 11/20/2012 9:59 PM EST 11/20/2012 10:12 PM EST Narrative Resulting Agency Comment Spec In Lab Presley Madrid MD HEMATOLOGY ORDERABLE S Performing Organization Address [facility] Co de Phone Number CERDAKSHA MILLENNIUM * (ABNORMAL) CBC (with Diff) (11/20/2012 9:59 PM EST) WBC 11.3(H) 4.0 - 10.0 x10(3)/mcL CERNER MILLENNIUM RBC 4.47(L) 4.63 - 6.08 x10(6)/mcL CERNER MILLENNIUM Hemoglobin 13.6(L) 13.7 - 17.5 gm/dL CERNER MILLENNIUM Hematocrit 42.8 40.0 - 51.0 % CERNER MILLENNIUM MCV 95.7(H) 79.0 - 92.0 fL CERNER MILLENNIUM MCH 30.4 25.6 - 32.2 pg CERNER MILLENNIUM MCHC 31.8(L) 32.0 - 36.5 gm/dL CERNER MILLENNIUM Platelets 214 145 - 370 x10(3)/mcL CERNER MILLENNIUM RDWSD 53.8(H) 35.0 - 46.0 fL CERNER MILLENNIUM RDWCV 15.4(H) 10.9 - 14.4 % CERNER MILLENNIUM MPV 10.1 9.0 - 12.0 fL CERNER MILLENNIUM Blood specimen (specimen) 11/20/2012 9:59 PM EST 11/20/2012 10:12 PM EST Narrative Resulting Agency Comment Spec In Lab Presley Madrid MD HEMATOLOGY ORDERABLE S CERDAKSHA MILLENNIUM * (ABNORMAL) Differential, Automated (11/20/2012 3:31 PM EST) Neutrophils % 92.6(H) 34.0 - 71.0 % CERNER MILLENNIUM Neutr Abs (ANC) 10.06(H) 1.50 - 6.30 x10(3)/mc L CERNER MILLENNIUM Lymphocytes % 4.2(L) 19.0 - 53.0 % CERNER MILLENNIUM Lymphocytes Abs 0.5(L) 1.0 - 3.6 x10(3)/mc L CERNER MILLENNIUM Monocytes % 2.7(L) 4.0 - 13.0 % CERNER MILLENNIUM Monocyte Abs 0.3 0.2 - 1.0 x10(3)/mc L CERNER MILLENNIUM Eosinophils % 0.1 0.0 - 7.0 % CERNER MILLENNIUM Eosinophils Abs 0.0 0.0 - 0.5 x10(3)/mc L CERNER MILLENNIUM [...] x10(3)/mc L CERNER MILLENNIUM Blood specimen (specimen) 11/20/2012 3:31 PM EST 11/20/2012 3:38 PM EST Presley Madrid MD HEMATOLOGY ORDERABLE S DANETTE VALENCIA * (ABNORMAL) CBC (with Diff) (11/20/2012 3:31 PM EST) WBC 10.9(H) 4.0 - 10.0 x10(3)/mcL CERNER MILLENNIUM RBC 4.55(L) 4.63 - 6.08 x10(6)/mcL CERNER MILLENNIUM Hemoglobin 13.8 13.7 - 17.5 gm/dL CERNER MILLENNIUM Hematocrit 43.0 40.0 - 51.0 % CERNER MILLENNIUM MCV 94.5(H) 79.0 - 92.0 fL CERNER MILLENNIUM MCH 30.3 25.6 - 32.2 pg CERNER MILLENNIUM MCHC 32.1 32.0 - 36.5 gm/dL CERNER MILLENNIUM Platelets 197 145 - 370 x10(3)/mcL CERNER MILLENNIUM RDWSD 52.9(H) 35.0 - 46.0 fL CERNER MILLENNIUM RDWCV 15.4(H) 10.9 - 14.4 % CERNER MILLENNIUM MPV 9.8 9.0 - 12.0 fL CERNER MILLENNIUM Blood specimen (specimen) 11/20/2012 3:31 PM EST 11/20/2012 3:38 PM EST Narrative Resulting Agency Comment Spec In Lab Presley Madrid MD HEMATOLOGY ORDERABLE S CERDAKSHA HARTMANENNIUM * (ABNORMAL) Differential, Automated (11/20/2012 1:00 PM EST) Neutrophils % 90.8(H) 34.0 - 71.0 % CERNER MILLENNIUM Neutr Abs (ANC) 11.02(H) 1.50 - 6.30 x10(3)/mc L CERNER MILLENNIUM Lymphocytes % 5.8(L) 19.0 - 53.0 % CERNER MILLENNIUM Lymphocytes Abs 0.7(L) 1.0 - 3.6 x10(3)/mc L CERNER MILLENNIUM Monocytes % 2.3(L) 4.0 - 13.0 % CERNER MILLENNIUM Monocyte Abs 0.3 0.2 - 1.0 x10(3)/mc L CERNER MILLENNIUM [...] x10(3)/mc L CERNER MILLENNIUM Blood specimen (specimen) 11/20/2012 1:00 PM EST 11/20/2012 1:07 PM EST Presley Madrid MD HEMATOLOGY ORDERABLE S CERNER MILLENNIUM * (ABNORMAL) CBC (with Diff) (11/20/2012 1:00 PM EST) WBC 12.1(H) 4.0 - 10.0 x10(3)/mcL CERNER MILLENNIUM RBC 4.63 4.63 - 6.08 x10(6)/mcL CERNER MILLENNIUM Hemoglobin 13.9 13.7 - 17.5 gm/dL CERNER MILLENNIUM Hematocrit 43.8 40.0 - 51.0 % CERNER MILLENNIUM MCV 94.6(H) 79.0 - 92.0 fL CERNER MILLENNIUM MCH 30.0 25.6 - 32.2 pg CERNER MILLENNIUM MCHC 31.7(L) 32.0 - 36.5 gm/dL CERNER MILLENNIUM Platelets 222 145 - 370 x10(3)/mcL CERNER MILLENNIUM RDWSD 53.8(H) 35.0 - 46.0 fL CERNER MILLENNIUM RDWCV 15.6(H) 10.9 - 14.4 % CERNER MILLENNIUM MPV 10.0 9.0 - 12.0 fL CERNER MILLENNIUM Blood specimen (specimen) 11/20/2012 1:00 PM EST 11/20/2012 1:07 PM EST Narrative Resulting Agency Comment Spec In Lab Presley Madrid MD HEMATOLOGY ORDERABLE S CERNER MILLENNIUM * (ABNORMAL) Basic Metabolic Panel (non-fasting) (11/20/2012 12:20 PM EST) Glucose Lvl 142 60 - 199 mg/dL CERNER MILLENNIUM Comment:Diabetes: >=200 mg/d L plus symptoms BUN 16 10 - 20 mg/dL CERNER MILLENNIUM Creatinine 1.15 0.80 - 1.50 mg/dL CERNER MILLENNIUM Comment: Please note that the pediatric reference intervals supplied above were not validated at [facility]. Results from pediatric patients should be interpreted in conjunction to the patient's age, height and muscle mass. Sodium 139 135 - 145 mmol/L CERNER MILLENNIUM Potassium 4.6 3.5 - 5.0 mmol/L CERNER MILLENNIUM Comment: Please note: ??Patients with WBC >100,000 may have falsely elevated Potassium levels. ??For accurate Potassium quantification in these patients send serum separator tube (gold top) for subsequent determinations. ??Contact the Clinical Chemistry Laboratory if there are any questions. Chloride 103 98 - 107 mmol/L CERNER MILLENNIUM CO2 28 22 - 31 mmol/L CERNER MILLENNIUM Anion Gap 8 5 - 15 mmol/L CERNER MILLENNIUM Calcium 8.3(L) 8.5 - 10.5 mg/dL CERNER MILLENNIUM Estimated [...] J Am Soc Nephrol;6:1963-72. Blood specimen (specimen) 11/20/2012 12:20 PM EST 11/20/2012 12:32 PM EST Narrative Resulting Agency Comment Spec In Lab Presley Madrid MD CHEMISTRY ORDERABLES Performing Organization Address City/State/[facility] Phone Number [facility] * Surgical Pathology Report (11/20/2012 12:02 PM EST) Surgical Pathology Report ? [facility] ? Provider: ?? PRESLEY MADRID ?Pt. Name: ?? DILLAN AL ? Acc #: ?[id number] ?Pt. ? Col Date: ?? 11/20/2012 ? /Sex: ?1950,(62 years),Male ? Rec Date: ?? 11/20/2012 ? LOC: ?4WST ? SURGICAL PATHOLOGY ? ---Pathologic Diagnosis--- ? A - Prostate gland, resection: ? Specimen type: ?Radical prostatectomy ? 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 Shasha grades: ? 3+4 with a minor component ? of grade 5 carcinoma (see Comment) ? Gadsden score: ?7 ? Location of tumor: ?Bilateral, all 4 quadrants, ? predominantly left anterior and ? posterior ? % prostate involved by tumor: 9% ? Extracapsular extension (RADHA):Present ? - Location: ? Left posterior (A34, A38) ? - Linear extent of RADHA: ? Left posterior (A34): 10.0 mm ? Left posterior (A38): 7.0 mm ? Seminal vesicle invasion: ? Absent ? Margins: ?Margins uninvolved by invasive carcinoma ? Perineural invasion: ?Present ? Lymphovascular invasion: ?Microscopic indeterminate focus (A42) ? 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 B - Left pelvic lymph nodes, excision: ? Five lymph nodes, no evidence of malignancy (0/5). ? C - Right pelvic lymph nodes, excision: ? Two lymph nodes, no evidence of malignancy (0/2). ? TNM STAGING (AJCC, 7th ed., 2009): ? Extent of invasion: ? pT3a: (extraprostatic extension or ?microscopic invasion ?of bladder neck) ? Regional lymph nodes: ? pN0 (no regional LN metastasis) ? Distant metastasis: ? pMX (cannot be assessed) ? [facility] ? Provider: ?? MERCY, PRESLEY S ?Pt. Name: ?? MIKAELA, DILLAN Ocampo ? Acc #: ?[id number] ?Pt. ? Col Date: ?? 11/20/2012 ? /Sex: ?1950,(62 years),Male ? Rec Date: ?? 11/20/2012 ? LOC: ?4WST ? SURGICAL PATHOLOGY ? CR-0 ? 11/23/12 ? JLG ? 11/23/12 Verified by: ? Vinod NCIHOLSON, Jose Ruvalcaba ? Pathologist ? (Electronic Signature) ? The attending pathologist whose signature appears on this report has ? reviewed all diagnostic slides and has edited the gross and/or ? microscopic portion of the report in rendering the final pathologic ? diagnosis. ? ---Comment--- ?Within the periprostatic tissue (sections A18 and A22) ? there is a large palisading granuloma with central necrobiosis. ? No organisms are identified with GMS and AFB stains. ?The primary and secondary growth patterns of the carcinoma ? are 3 and 4, respectively. Foci of grade 5 carcinoma are noted. ? According to the 2005 ISUP consensus guidelines on Gadsden grading ? of prostatic adenocarcinomas in prostatectomy specimens, when three ? grades are present, the Shasha score is based on the primary and ? secondary patterns with a comment as to the tertiary pattern (i.e. a ? carcinoma that is predominantly grades 4 and 3 with foci of grade 5 ? would be listed as 4+3=7 with a comment stating that there is a minor ? component of grade 5 tumor present). ? ---Microscopic Description--- ? Special Stains: ? Formalin-fixed, paraffin-embedded tissue sections are studied with ? appropriate positive controls. ? Block ?Special Stain ?Result (Positive/Negative ) ? A-22 ? GMS ?Negative ? A-22 ? AFB ?Negative ? ---Gross Description--- ? A - Labeled/Fixative: ?Prostate, fresh. ? Size/Weight: ? 3.5 cm apex to base. ?4.3 cm transverse. ?3.7 cm anterior to posterior. ? Tissue Description: ?One intact prostate with seminal vesicles and ?bilateral vas deferentia present. ? [facility] ? Provider: ?? PRESLEY MADRID ?Pt. Name: ?? DILLAN AL ? Acc #: ?[id number] ?Pt. ? Col Date: ?? 11/20/2012 ? /Sex: ?1950,(62 years),Male ? Rec Date: ?? 11/20/2012 ? LOC: ?4WST ? SURGICAL PATHOLOGY ?Length of adnexa: ? Rt Seminal Vesicle: ??3.1 cm. ? Lt Seminal Vesicle: ??3.4 cm. ? Rt Vas Deferens: ? 4.3 cm. ? Lt Vas Deferens: ? 2.6 cm. ?Outer Surface: ?Nodular, glistening, brown-pink prostate with no ?gross lesion present. ?Cut Surface: ?The prostate is cut into ten slices from apex to ?base. ??There is yellow nodularity starting ? mostly ?in the third slice through the eighth slice, ?with no distinct gross lesion identified. ? Sections/Processin g: ? The right half of the specimen is inked with ? Dayana ink and the left half with yellow ink. ??The prostate is serially ? sectioned from apex to base at 3-mm intervals. ??Each slice is quadrisected ? and submitted in the ??following sequence: ??Right anterior quadrant, right ? posterior quadrant, left anterior quadrant, and left posterior quadrant. ? Each seminal vesicle is serially sectioned longitudinally and entirely ? submitted. ??The bilateral vas deferens margins are submitted. ??(1-4) ? bladder neck margin, going right anterior, right posterior, left anterior, ? left posterior; (5-6) apex margin, anterior in (5) and posterior in (6). ? Slices are entirely submitted in the sequence of quadrants as noted above, ? as follows: ??(7-10) slice I; (11-14) slice II; (15-18) slice III; (19-22) ? slice IV; (23-26) slice V; (27-30) slice ; (31-34) slice VII; (35-38) ? slice VIII; (39-42) slice IX; (43-44) slice X, right and left; (45) ? bilateral vasa deferentia margins; (46-48) right seminal vesicle from ? proximal to distal; (49-51) left seminal vesicle from proximal to distal. ? (R51) ? B - Labeled/Fixative: Left pelvic lymph nodes, fresh. ? Qty/Size/Weight: ?Multiple, aggregating 7.1 x 3.5 x 1.5 cm. ? Tissue Description: ?? Yellow, lobular adipose tissue. ??Sectioning ? reveals five ??lymph nodes, the largest 3.6 cm. ? Sections/Processin g: ??One node bisected in (B1). ??One node is trisected ? into (B2-B3). ??One node in (B4-B7). ??One node in ? (B8-B9). ??One node in (B10-B11). ??(R11) ? C - Labeled/Fixative: Labeled with the patient's name, fresh. ? Qty/Size/Weight: ?Multiple, aggregating 5.9 x 3.5 x 1.5 cm. ? Tissue Description: ?? Yellow, lobular adipose tissue. ??Sectioning ? reveals two lymph nodes, the largest 6.4 cm. ? Sections/Processin g: ??One lymph node bisected into (C1); largest node in ? (C2-C9). ?? (R9) ??aje/JSB ? [facility] ? Provider: ?? PRESLEY MADRID ?Pt. Name: ?? DILLAN AL ? Acc #: ?[id number] ?Pt. ? Col Date: ?? 11/20/2012 ? /Sex: ?1950,(62 years),Male ? Rec Date: ?? 11/20/2012 ? LOC: ?4[facility] ? SURGICAL PATHOLOGY ? ---Clinical Information--- ? Specimen Submitted: ? A - Prostate ? B - Left pelvic lymph nodes ? C - Right pelvic lymph nodes ? Clinical History/Diagnosis: ? Prostate cancer DANETTE VALENCIA 11/20/2012 12:0 2 PM EST Presley Madrid MD PATHOLOGY/CYTOLOGY O RDERABLES [facility] Specimen to Pathology (surgical or derm) (11/20/2012 10:19 AM EST) AP Specimen 11/20/2012 10:1 9 AM EST 11/20/2012 10:19 AM EST Narrative DANETTE PRIDEIUM - 11/20/2012 10:19 AM EST Specimen requisition ordered. ??Separate Pathology report to follow Presley Madrid MD PATHOLOGY/CYTOLOGY O RDERAUNIQUE DANETTE PRIDEIUM * Specimen to Pathology (surgical or derm) (11/20/2012 10:19 AM EST) AP Specimen 11/20/2012 10:1 9 AM EST 11/20/2012 10:19 AM EST Narrative DANETTE PRIDEIUM - 11/20/2012 10:19 AM EST Specimen requisition ordered. ??Separate Pathology report to follow Presley Madrid MD PATHOLOGY/CYTOLOGY O RDERABLES Performing Organization Address [facility] Co de Phone Number DANETTE VALENCIA * Specimen to Pathology (surgical or derm) (11/20/2012 10:19 AM EST) AP Specimen 11/20/2012 10:1 9 AM EST 11/20/2012 10:19 AM EST Narrative DANETTE PRIDEIUM - 11/20/2012 10:19 AM EST Specimen requisition ordered. ??Separate Pathology report to follow Presley Madrid MD PATHOLOGY/CYTOLOGY O RDERAUNIQUE Performing Organization Address [facility] Co de Phone Number DANETTE VALENCIA * Antibody screen (11/20/2012 6:12 AM EST) Ab Screen Interp Negative DANETTE PRIDEIUM Expires at [id number] on: [id number] DANETTE PRIDEIUM Blood specimen (specimen) 11/20/2012 6:12 AM EST 11/20/2012 6:25 AM EST Narrative Resulting Agency Comment Spec In Lab Presley Madrid MD BLOOD BANK LAB ORDER JAMES DANETTE VALENCIA * ABO/Rh Typing (11/20/2012 6:12 AM EST) ABORH Type A Pos CERNER MILLENNIUM Blood specimen (specimen) 11/20/2012 6:12 AM EST 11/20/2012 6:25 AM EST Narrative Resulting Agency Comment Spec In Lab Presley Madrid MD BLOOD BANK LAB ORDER JAMES Performing Organization Address [facility] Phone Number DANETTE VALENCIA * APTT (11/20/2012 6:12 AM EST) PTT 29 25 - 35 sec CERDAKSHA MILLENNIUM Comment: Recommended therapeutic PTT range for full dose unfractionated heparin is 80-114 seconds. Blood specimen (specimen) 11/20/2012 6:12 AM EST 11/20/2012 6:25 AM EST Narrative Resulting Agency Comment Spec In Lab Presley Madrid MD HEMATOLOGY ORDERABLE S Performing Organization Address [facility] Phone Number DANETTE VALENCIA * Prothrombin Time (11/20/2012 6:12 AM EST) PT 12.4 11.9 - 14.7 sec CERNER MILLENNIUM Comment: [facility] Transfusion Committee Guidelines: INR less than 2.0, PTT less than OR equal to 43.5 seconds, or Fibrinogen greater than or equal to 100 mg/dl indicate adequate procoagulant activity for hemostasis in patients without underlying bleeding disorders. 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 documented in this encounter Administered Medications Inactive Administered Medications - up to 3 most recent administrations Medication Order MAR Action Action Date Dose Rate Site acetaminophen (TYLENOL) tablet 1,000 mg 1,000 mg, Oral, EVERY 6 HOURS PRN, Starting on Tue11/20/12 at 1206, Until Tue11/21/12 at 2029, Pain, for MODERATE pain, Do not exceed 4,000 mg in 24 hours, Recovery (Recovery-Hospital Unit), Routine Given 11/21/2012 5:58 PM EST 1,000 mg Given 11/21/2012 8:22 AM EST 1,000 mg Given 11/20/2012 8:40 PM EST 1,000 mg ceFAZolin (ANCEF) 2g in dextrose 5% 100mL 2 g, Intravenous, EVERY 8 HOURS, First dose on Tue11/19/12 at 1500, Until Discontinued, Administer over 30 Minutes, Indication for (Active or Suspected): Prophylaxis Given by Other 11/20/2012 7:00 AM EST 2 g docusate sodium (COLACE) capsule 100 mg 100 mg, Oral, 2 TIMES DAILY, First dose on Tue11/20/12 at 1445, Until Discontinued, Recovery (Recovery-Hospital Unit), Routine Given 11/21/2012 8:23 AM EST 100 mg Given 11/20/2012 5:30 PM EST 100 mg enoxaparin (LOVENOX) injection 100 mg 100 mg, Subcutaneous, EVERY 12 HOURS, First dose on Tue11/21/12 at 0830, Until Discontinued, STAT Given 11/21/2012 7:00 PM EST 100 mg Given 11/21/2012 8:43 AM EST 100 mg fluticasone-salmeterol (ADVAIR) 100-50 mcg/dose diskus inhaler 1 puff 1 puff, Inhalation, EVERY 12 HOURS, First dose on Tue11/20/12 at 2100, Until Discontinued, Rinse mouth after administration, Recovery (Recovery-Hospital Unit), Routine Given 11/21/2012 8:24 AM EST 1 puff heparin 25,000 units in dextrose 5% 500 mL infusion 500-7,000 Units/hr (rounded to 10-140 mL/hr), Intravenous, CONTINUOUS, Starting on Tue11/20/12 at 1715, Until Tue11/21/12 at 0802, Patient Weight 95-99 kg Initial dose - 1,450 units/hr = 29 mL/hr PTT less than 60 sec - increase by 400 units/hr = 8 mL/hr PTT 60-79 sec- increase by 200 units/hr = 4 mL/hr PTT 80-114 sec - no change PTT 115-129 sec - decrease by 100 units/hr = 2 mL/hr PTT 130-145 sec - stop infusion for 30 min then decrease by 200 units/hr = 4 mL/hr PTT greater than 145 sec - stop infusion for 60 min then decrease by 300 units/hr = 6 mL/hr PTT greater than 145 sec X 2 - call malt house operator See Bolus dosing guidance for aPTT values less than 80 seconds under PRN medications , Routine Restarted 11/21/2012 6:15 AM EST 1,450 Units/hr 29 mL/hr Rate/Dose Change 11/20/2012 11:00 PM EST 1,850 Units/hr 37 mL/hr New Bag 11/20/2012 5:15 PM EST 1,450 Units/hr 29 mL/hr lactated ringers infusion 1,000 mL 1,000 mL, at 100 mL/hr, Intravenous, CONTINUOUS, Starting on Tue11/20/12 at 0700, Until Tue11/20/12 at 1413, Day of Surgery (Day of Procedure) New Bag 11/20/2012 12:29 PM EST 1,000 mLs 100 mL/hr New Bag 11/20/2012 7:03 AM EST 1,000 mLs 100 mL/hr levothyroxine (SYNTHROID) tablet 50 mcg 50 mcg, Oral, EVERY MORNING, First dose on Tue11/21/12 at 1500, Until Discontinued, Recovery (Recovery-Hospital Unit), Routine Given 11/21/2012 4:49 PM EST 5 0 mcg sodium chloride 0.9 % flush 5 mL 5 mL, Intravenous, EVERY 12 HOURS, First dose on Tue11/20/12 at 0700, Until Discontinued, Day of Surgery (Day of Procedure) Given 11/20/2012 12:40 PM EST 5 mLs Given by Other 11/20/2012 7:00 AM EST 5 mLs sodium chloride 0.9% infusion 100 mL/hr, Intravenous, CONTINUOUS, Starting on Tue11/20/12 at 1230, Until Tue11/21/12 at 2029, Recovery (Recovery-Hospital Unit) New Bag 11/21/2012 8:22 AM EST 100 mL/hr 100 mL /hr New Bag 11/20/2012 10:00 PM EST 100 mL/hr 100 mL/hr New Bag 11/20/2012 12:30 PM EST 100 mL/hr 100 mL/hr warfarin (COUMADIN) tablet 7.5 mg 7.5 mg, Oral, EVERY EVENING, First dose on Tue11/21/12 at 1700, Until Discontinued, Routine Given 11/21/2012 4:50 PM EST 7.5 mg documented in this encounter Active and Recently Administered Medications Times are shown in EST. Scheduled Medication Order 11/19/2012 11/20/2012 11/21/2012 ceFAZolin (ANCEF) 2g in dextrose 5% 100mL (CANCELED) 2 g, Intravenous, EVERY 8 HOURS, First dose on Tue11/19/12 at 1500, Until Discontinued, Administer over 30 Minutes, Indication for (Active or Suspected): Prophylaxis 1500 (Due)2300 (Due) 0700 (Given by Other - Provider: Christin Awad RN) docusate sodium (COLACE) capsule 100 mg 100 mg, Oral, 2 TIMES DAILY, First dose on Tue11/20/12 at 1445, Until Discontinued, Recovery (Recovery-Hospital Unit), Routine 1730 (Given - Provider: Christin Awad RN)2100 (Not Given - Provider: Ree Shirley RN - Reason: See comment - Comment: given 173) 0823 (Given - Provider: Christin Awad RN) enoxaparin (LOVENOX) injection 100 mg 100 mg, Subcutaneous, EVERY 12 HOURS, First dose on Tue11/21/12 at 0830, Until Discontinued, STAT 0843 (Given - Provider: Christin Awad RN)1900 (Given - Provider: Christin Awad RN) fluticasone-salmeterol (ADVAIR) 100-50 mcg/dose diskus inhaler 1 puff (CANCELED) 1 puff, Inhalation, EVERY 12 HOURS, First dose on Tue11/20/12 at 2100, Until Discontinued, Rinse mouth after administration, Recovery (Recovery-Hospital Unit), Routine 2100 (Not Given - Provider: Ree Shirley RN - Reason: Patient/family refused - Comment: takes in am only) 0824 (Given - Provider: Christin Awad RN) levothyroxine (SYNTHROID) tablet 50 mcg (CANCELED) 50 mcg, Oral, EVERY MORNING, First dose on Tue11/21/12 at 1500, Until Discontinued, Recovery (Recovery-Hospital Unit), Routine 1649 (Given - Provider: Christin Awad RN) sodium chloride 0.9 % flush 5 mL (CANCELED) 5 mL, Intravenous, EVERY 12 HOURS, First dose on Tue11/20/12 at 0700, Until Discontinued, Day of Surgery (Day of Procedure) 0700 (Given by Other - Provider: Christin Awad RN)1240 (Given - Provider: Inga Edgar RN - Comment: 20 mls s/p blood draw from IV left hand) warfarin (COUMADIN) tablet 7.5 mg (CANCELED) 7.5 mg, Oral, EVERY EVENING, First dose on Tue11/21/12 at 1700, Until Discontinued, Routine 1650 (Given - Provider: Christin Awad RN) Continuous Medication Order 11/19/2012 11/20/2012 11/21/2012 heparin 25,000 units in dextrose 5% 500 mL infusion (CANCELED) 500-7,000 Units/hr (rounded to 10-140 mL/hr), Intravenous, CONTINUOUS, Starting on Tue11/20/12 at 1715, Until Tue11/21/12 at 0802, Patient Weight 95-99 kg Initial dose - 1,450 units/hr = 29 mL/hr PTT less than 60 sec - increase by 400 units/hr = 8 mL/hr PTT 60-79 sec- increase by 200 units/hr = 4 mL/hr PTT 80-114 sec - no change PTT 115-129 sec - decrease by 100 units/hr = 2 mL/hr PTT 130-145 sec - stop infusion for 30 min then decrease by 200 units/hr = 4 mL/hr PTT greater than 145 sec - stop infusion for 60 min then decrease by 300 units/hr = 6 mL/hr PTT greater than 145 sec X 2 - call malt house operator See Bolus dosing guidance for aPTT values less than 80 seconds under PRN medications , Routine 1715 (New Bag - Provider: Christin Awad RN)2300 (Rate/Dose Change - Provider: Ree Shirley RN) 0549 (Stopped - Provider: Ree Shirley RN - Comment: Per DR. Hyman)0615 (Restarted - Provider: Ree Shirley, RN) lactated ringers infusion 1,000 mL (CANCELED) 1,000 mL, at 100 mL/hr, Intravenous, CONTINUOUS, Starting on Tue11/20/12 at 0700, Until Tue11/20/12 at 1413, Day of Surgery (Day of Procedure) 0703 (New Bag - Provider: Aislinn Guillen, RN)1229 (New Bag - Provider: Inga Edgar, LAINE) sodium chloride 0.9% infusion (CANCELED) 100 mL/hr, Intravenous, CONTINUOUS, Starting on Tue11/20/12 at 1230, Until Tue11/21/12 at 2029, Recovery (Recovery-Hospital Unit) 1230 (New Bag - Provider: Inga Edgar, RN)2200 (New Bag - Provider: Ree Shirley, RN) 0822 (New Bag - Provider: Christin Awad, LANIE) PRN Medication Order 11/19/2012 11/20/2012 11/21/2012 acetaminophen (TYLENOL) tablet 1,000 mg (CANCELED) 1,000 mg, Oral, EVERY 6 HOURS PRN, Starting on Tue11/20/12 at 1206, Until Tue11/21/12 at 2028, Pain, for MODERATE pain, Do not exceed 4,000 mg in 24 hours, Recovery (Recovery-Hospital Unit), Routine 204 (Given - Provider: Ree Shirley, LANIE) 0822 (Given - Provider: Christin Awad, LANIE)1758 (Given - Provider: Christin Awad, LANIE) ceFAZolin (ANCEF) injection (CANCELED) ONCE PRN, Starting on Tue11/20/12 at 0747, Until Tue11/20/12 at 1207, Intra-Operative (Intra-Procedure), Routine 0747 (Given - Provider: Fabian Boogie MD) cellulose, oxidized (SURGICEL) 4 x 8 pad (CANCELED) ONCE PRN, Starting on Tue11/20/12 at 1037, Until Tue11/20/12 at 1208, Intra-Operative (Intra-Procedure), Routine 1037 (Given - Provider: Presley Madrid MD) hydroCODone-acetaminophen (VICODIN) 5-500 mg per tablet 1-2 tablet 1-2 tablet, Oral, EVERY 4 HOURS PRN, Starting on Tue11/20/12 at 1206, Until Tue11/21/12 at 2028, Pain, Maximum dose of acetaminophen is 4000 mg from all sources in 24 hours., Recovery (Recovery-Hospital Unit), Routine documented in this encounter Care Teams Lead Ingot Molder Relationship Specialty Start Date End Date Farnaz Pineda MD [address] [place] [address] PCP - General 10/26/12 documented as of this encounter
--- OUTSIDE RECORDS SUMMARY | 2024-04-20 15:09 | XMS_ITS | Encounter Summary ---
Author Organization [facility] [place] [address] Care Team Providers Care Claim Investigator Name Role Phone Farnaz Pineda MD Primary Care Provider [phone] Encounter Details Date Type Department Care Team (Late st Contact Info) Description 11/02/2012 9:05 AM EST Clinical Support [place]ematology [place] [id number] Social History Tobacco Use Types Packs/Day Years [...] on filedocumented in this encounter Care Teams Claim Investigator Relationship Specialty Start Date End Date Farnaz Pineda MD [address] [place] [address] PCP - General 10/26/12 documented as of this encounter
--- OUTSIDE RECORDS SUMMARY | 2024-04-20 15:09 | XMS_ITS | Encounter Summary ---
Author Organization Formerly [facility] [place] [address] Care Team Providers Care Supervisor Felting Name Role Phone Farnaz Pineda MD Primary Care Provider [phone] Encounter Details Date Type Department Care Team (Late st Contact Info) Description 11/20/2012 7:30 AM EST - 11/20/2012 12:35 PM EST [place] [phone] Presley Madrid MD [facility] [place] [address] ROBOTIC LAPAROSCOPIC PROSTATECTOMY (WRVU 22.46) Social History Tobacco Use Types Packs/Day Years [...] Sign Reading Time Taken Comments Blood Pressure 124/74 11/21/2012 4:06 PM EST Pulse 100 11/21/2012 4:06 PM EST Temperature 36.8 ??C (98.2 ??F) 11/21/2012 4:06 PM ES T Respiratory Rate 18 11/21/2012 4:06 PM EST Oxygen Saturation 97% 11/21/2012 4:06 PM EST Inhaled Oxygen Concentration - - Weight 99 kg (218 lb 4.1 oz) 11/20/2012 5:00 PM EST Height 172.7 cm (5' 8) 11/20/2012 3:56 PM EST Body Mass Index 33.19 11/20/2012 3:56 PM EST documented in this encounter Discharge Instructions * Patient Instructions* Baltazar Alvaro Castillo - 11/21/2012 2:23 PM EST Post [...] longer draining. The number for questions is [phone] before 5 PM weekdays and [phone] after 5 PM and weekends. Activity level: [...] 4-6 weeks for PSA check. Please call [phone] (clinic number for appointments) to confirm date [...] left unit in wheelchair pushed by staff. Angelica Woodard RN - 11/21/2012 1:21 PM EST Met [...] deductible hadnot been met prior to admission. [facility] pharmacy is unable to run the prescription/coverage through insurance without a hard script.TC to [facility] and unable to locate his information and sent to [employer] [phone] and spoke with Farnaz who could not [...] SpO2: [92 %-100 %] I/Os: Date 11/20/12 0700 - 11/21/1259 Shift [phone] [phone] 9712-5383 24 Hour Total I N T A [...] to sleep quickly. 1315 Patient states in [place] when asked where his is but does not elaborate when pressed. States he feels wiped out and dozes back to sleep quickly when left alone. 1320 Patient now answering questions appropriately when awakened. Denies pain/nausea. 1345 Report to Christin DELA CRUZ. Info/orders reviewed, questions answered. Patient ready for transfer [facility] when transport arrives. documented in this [...] per outside path report: R apex - Pocahontas 3+3=7, 9% 2/2 cores L latl mid - Poc[place]ontas 4+4=8, 19% 1/1 core L mid - Pocahontas 4+5=9, 10% 1/1 cores His DAVIAN has [...] and affect. A/P: High risk prostate cancer, Shsaha 4+5=9, PSA 7.1, T1c - We discussed [...] testing and communicate with his PCP and/or analysis or research safety inspector regarding clearance and a bridging regimen for [...] Madrid MD - 11/20/2012 12:27 PM EST [facility] Operative Note Patient Name: Dillan Al : [id number] MR#: [id number] Case Date: 11/20/2012 Surgeon: Surgeon(s) and Role: [...] the mid left abdomen, and a 10mm pathology assistant port placed several cm superior to the [...] bleeding was noted. At this time, the pathology assistant port was closed with Pritesh Thomasen technique [...] Operative Note Patient Name: Dillan Al : [id number] MR#: [id number] Case Date: 11/20/2012 Surgeon: Surgeon(s) and Role: [...] to this patient.) * Discharge Summary - BaltazarAlvaro stack - 11/20/2012 9:49 AM EST Inpatient - [...] 9% 2/2 cores L latl mid - Pocahontas 4+4=8, 19% 1/1 core L mid - [...] longer draining. The number for questions is [phone] before 5 PM weekdays and [phone] after 5 PM and weekends. Activity level: [...] 4-6 weeks for PSA check. Please call [phone] (clinic number for appointments) to confirm date and time of your appointment if you do not receive your apointment in 2-3 days. General Instructions None Provider Contact Information: [facility]. If you have any questions or concerns, please feel free to contact us. Provider Contact Information: Urology Clinic: [facility] (after business hours): Signed: ALVARO LEDESMA MD [...] 11/20/2012 6:12 AM EST TYPE AND SCREEN ([facility]/CONSTANTINE) Routine 11/20/2012 6:12 AM EST documented in this encounter Results * SCAN DOC: LAB (12/27/2012 9:13 AM EDT) Narrative 12/27/2012 9:13 AM EDT Procedure Note Provider, Scanning - 12/27/2012 9:13 AM EDT Scanning Provider MEDIA MGR SCAN EXT O RDR/RSLT * Prothrombin Time (11/21/2012 4:11 AM EST) PT 13.8 11.9 - 14.7 sec DANETTE [facility] Comment: [facility] Transfusion Committee Guidelines: INR less than [...] ORDERABLE S DANETTE HARTMANENNIUM * (ABNORMAL) APTT (11/20/2012 9:59 PM EST) PTT 51(H) 25 - 35 sec CERNER MILLENNIUM Comment: Recommended therapeutic PTT range for full dose unfractionated heparin is 80-114 seconds. Blood specimen (specimen) 11/20/2012 9:59 PM EST 11/20/2012 10:12 PM EST Narrative Resulting Agency Comment Spec In Lab Presley Madrid MD HEMATOLOGY ORDERABLE S Performing Organization Address [facility] Co de Phone Number CERDAKSHA MILLENNIUM [...] CERDAKSHA HARTMANENNIUM * (ABNORMAL) Differential, Automated (11/20/2012 3:31 PM [...] CERNER MILLENNIUM * (ABNORMAL) Differential, Automated (11/20/2012 1:00 PM [...] intervals supplied above were not validated at [facility]. Results from pediatric patients should be interpreted [...] Madrid MD CHEMISTRY ORDERABLES Performing Organization Address City/State/[facility] Phone Number [facility] * Surgical Pathology Report (11/20/2012 12:02 PM EST) Surgical Pathology Report ? [facility] ? Provider: ?? PRESLEY MADRID ?Pt. Name: ?? DILLAN AL ? Acc #: ?[id number] ?Pt. ? Col Date: ?? 11/20/2012 ? /Sex: ?1950,(62 years),Male ? Rec Date: ?? 11/20/2012 ? LOC: ?4WST ? SURGICAL PATHOLOGY ? ---Pathologic Diagnosis--- ? A - Prostate gland, resection: ? Specimen type: ?Radical prostatectomy ? 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 Pocahontas grades: ? 3+4 with a minor component ? of grade 5 carcinoma (see Comment) ? Pocahontas score: ?7 ? Location of tumor: ?Bilateral, [...] metastasis: ? pMX (cannot be assessed) ? [facility] ? Provider: ?? MERCY, PRESLEY S ?Pt. Name: ?? MIKAELA, DILLAN Ocampo ? Acc #: ?[id number] ?Pt. ? Col Date: ?? 11/20/2012 ? /Sex: ?1950,(62 years),Male ? Rec Date: ?? 11/20/2012 ? LOC: ?4WST ? SURGICAL PATHOLOGY ? CR-0 ? 11/23/12 ? JLG ? 11/23/12 Verified by: ? Vinod NICHOLSON, Jose Ruvalcaba ? Pathologist ? (Electronic Signature) [...] to the 2005 ISUP consensus guidelines on Pocahontas grading ? of prostatic adenocarcinomas in prostatectomy [...] vesicles and ?bilateral vas deferentia present. ? [facility] ? Provider: ?? PRESLEY MADRID ?Pt. Name: ?? DILLAN AL ? Acc #: ?[id number] ?Pt. ? Col Date: ?? 11/20/2012 ? [...] in ? (C2-C9). ?? (R9) ??aje/JSB ? [facility] ? Provider: ?? PRESLEY MADRID ?Pt. Name: ?? DILLAN AL ? Acc #: ?[id number] ?Pt. ? Col Date: ?? 11/20/2012 ? [...] EST Presley Madrid MD PATHOLOGY/CYTOLOGY O RDERABLES Performing Organization Address City/State/[facility] Co ma Phone Number [facility] * Specimen to Pathology (surgical or derm) (11/20/2012 10:19 AM EST) AP Specimen 11/20/2012 10:1 9 AM EST 11/20/2012 10:19 AM EST Narrative DANETTE PRIDEIUM - 11/20/2012 10:19 AM EST Specimen requisition ordered. ??Separate Pathology report to follow Presley Madrid MD PATHOLOGY/CYTOLOGY O RDARTEMIO Performing Organization Address [facility]/ZIP Co de Phone Number DANETTE VALENCIA * Specimen to Pathology (surgical or derm) (11/20/2012 10:19 AM EST) AP Specimen 11/20/2012 10:1 9 AM EST 11/20/2012 10:19 AM EST Narrative DANETTE PRIDEIUM - 11/20/2012 10:19 AM EST Specimen requisition ordered. ??Separate Pathology report to follow Presley Madrid MD PATHOLOGY/CYTOLOGY O RDERAUNIQUE Performing Organization Address [facility] Co de Phone Number DANETTE VALENCIA * Specimen to Pathology (surgical or derm) (11/20/2012 10:19 AM EST) AP Specimen 11/20/2012 10:1 9 AM EST 11/20/2012 10:19 AM EST Narrative DANETTE PRIDEIUM - 11/20/2012 10:19 AM EST Specimen requisition ordered. ??Separate Pathology report to follow Presley Madrid MD PATHOLOGY/CYTOLOGY O JUAN DIEGO Performing Organization Address [facility] Co de Phone Number DANETTE VALENCIA * Antibody screen (11/20/2012 6:12 AM EST) Ab Screen Interp Negative YAKOVDAKSHA PRIDEIUM Expires at 2359 on: [id number] DANETTE PRIDEIUM Blood specimen (specimen) 11/20/2012 6:12 AM EST 11/20/2012 6:25 AM EST Narrative Resulting Agency Comment Spec In Lab Presley Madrid MD BLOOD BANK LAB ORDER JAMES CERNER MILLENNIUM * ABO/Rh Typing (11/20/2012 6:12 AM EST) ABORH Type A Pos CERNER MILLENNIUM Blood specimen (specimen) 11/20/2012 6:12 AM EST 11/20/2012 6:25 AM EST Narrative Resulting Agency Comment Spec In Lab Presley Madrid MD BLOOD BANK LAB ORDER JAMES Performing Organization Address [facility] de Phone Number DANETTE VALENCIA * APTT (11/20/2012 6:12 AM EST) PTT 29 25 - 35 sec CERDAKSHA MILLENNIUM Comment: Recommended therapeutic PTT range for full dose unfractionated heparin is 80-114 seconds. Blood specimen (specimen) 11/20/2012 6:12 AM EST 11/20/2012 6:25 AM EST Narrative Resulting Agency Comment Spec In Lab Presley Madrid MD HEMATOLOGY ORDERABLE S Performing Organization Address [facility] Phone Number DANETTE VALENCIA * Prothrombin Time (11/20/2012 6:12 AM EST) PT 12.4 11.9 - 14.7 sec DANETTE MILLENNIUM Comment: [facility] Transfusion Committee Guidelines: INR less than 2.0, PTT less than OR equal to 43.5 seconds, or Fibrinogen greater than or equal to 100 mg/dl indicate adequate procoagulant activity for hemostasis in patients without underlying bleeding disorders. INR 0.9 0.9 - 1.1 DANETTE HARTMANENNIUM Blood specimen (specimen) 11/20/2012 6:12 AM EST 11/20/2012 6:25 AM EST Narrative Resulting Agency Comment Spec In Lab Presley Madrid MD HEMATOLOGY ORDERABLE S Performing Organization Address [facility] Phone Number DANETTE VALENCIA documented in this encounter Visit Diagnoses Not on filedocumented in this encounter Administered Medications Inactive Administered Medications - up to 3 most recent administrations Medication Order MAR Action Action Date Dose Rate Site ceFAZolin (ANCEF) injection ONCE PRN, Starting on 11/20/12 at 0747, Until Tue11/20/12 at 1207, Intra-Operative (Intra-Procedure), Routine Given 11/20/2012 7:47 AM EST 2 g cellulose, oxidized (SURGICEL) 4 x 8 pad ONCE PRN, Starting on Tue11/20/12 at 1037, Until Tue11/20/12 at 1208, Intra-Operative (Intra-Procedure), Routine Given 11/20/2012 10:37 AM EST 1 each 19- Surgical Site documented in this encounter Active and Recently [...] Christin Awad RN)1900 (Given - Provider: Christin Awad, LANIE) fluticasone-salmeterol (ADVAIR) 100-50 mcg/dose diskus inhaler 1 puff (CANCELED) 1 puff, Inhalation, EVERY 12 HOURS, First dose on Tue11/20/12 at 2100, Until Discontinued, Rinse mouth after administration, Recovery (Recovery-Hospital Unit), Routine 2100 (Not Given - Provider: Ree Shirley RN - Reason: Patient/family refused - Comment: takes in am only) 0824 (Given - Provider: Christin Awad, RN) levothyroxine (SYNTHROID) tablet 50 mcg (CANCELED) 50 mcg, Oral, EVERY MORNING, First dose on Tue11/21/12 at 1500, Until Discontinued, Recovery (Recovery-Hospital Unit), Routine 1649 (Given - Provider: Christin Awad, RN) sodium chloride 0.9 % flush 5 mL (CANCELED) 5 mL, Intravenous, EVERY 12 HOURS, First dose on Tue11/20/12 at 0700, Until Discontinued, Day of Surgery (Day of Procedure) 0700 (Given by Other - Provider: Christin Awad, LANIE)1240 (Given - Provider: Inga Edgar RN - Comment: 20 mls s/p blood draw from IV left hand) warfarin (COUMADIN) tablet 7.5 mg (CANCELED) 7.5 mg, Oral, EVERY EVENING, First dose on Tue11/21/12 at 1700, Until Discontinued, Routine 1650 (Given - Provider: Christin Awad, LANIE) Continuous Medication Order 11/19/2012 11/20/2012 11/21/2012 heparin [...] than 145 sec X 2 - call laborer [facility] See Bolus dosing guidance for aPTT values less than 80 seconds under PRN medications , Routine 1715 (New Bag - Provider: Christin Awad, LANIE)2300 (Rate/Dose Change - Provider: Ree Shirley RN) 0549 (Stopped - Provider: Ree Shirley RN - Comment: Per DR. Hyman)0615 (Restarted - Provider: Ree Shirley RN) lactated ringers infusion 1,000 mL (CANCELED) 1,000 mL, at 100 mL/hr, Intravenous, CONTINUOUS, Starting on Tue11/20/12 at 0700, Until Tue11/20/12 at 1413, Day of Surgery (Day of Procedure) 0703 (New Bag - Provider: Aislinn Guillen RN)1229 (New Bag - Provider: Inga Edgar, LANIE) sodium chloride 0.9% infusion (CANCELED) 100 mL/hr, Intravenous, CONTINUOUS, Starting on Tue11/20/12 at 1230, Until Tue11/21/12 at 2029, Recovery (Recovery-Hospital Unit) 1230 (New Bag - Provider: Inga Edgar, LANIE)2200 (New Bag - Provider: Ree Shirley RN) 0822 (New Bag - Provider: Christin Awad, LANIE) PRN Medication Order 11/19/2012 11/20/2012 11/21/2012 acetaminophen (TYLENOL) tablet 1,000 mg (CANCELED) 1,000 mg, Oral, EVERY 6 HOURS PRN, Starting on Tue11/20/12 at 1206, Until Tue11/21/12 at 2029, Pain, for MODERATE pain, Do not exceed 4,000 mg in 24 hours, Recovery (Recovery-Hospital Unit), Routine 204 (Given - Provider: Ree Shirley RN) 0822 (Given - Provider: Christin Awad, LANIE)1758 [...] at 1206, Until Tue11/21/12 at 2029, Pain, Maximum dose of acetaminophen is 4000 mg from all sources in 24 hours., Recovery (Recovery-Hospital Unit), Routine documented in this encounter Care Teams Supervisor Felting Relationship Specialty Start Date End Date Farnaz Pineda MD [address] [place] [address] PCP - General 10/26/12 documented as of this encounter
--- OUTSIDE RECORDS SUMMARY | 2024-04-20 15:09 | XMS_ITS | Encounter Summary ---
Author Organization [facility] Address [facility] [place] [address] Care Team Providers Care Factorer Name Role Phone Farnaz Pineda MD Primary Care Provider [phone] Encounter Details Date Type Department Care Team (Latest Contact Info) Description 11/28/2012 2:00 PM EST - 11/28/2012 11:59 PM [facility] Hospital Encounter XRay at [facility] [address] [facility] [place] [id number] H/O prostatectomy Social History Tobacco Use Types Packs/Day [...] for 10 days. 10 capsule 11/21/2012 12/01/2012 hydroCODone-acetaminoph en (VICODIN) 5-500 mg per tablet [...] Date/Time Associated Diagnosis Comments XR FLUORO CYSTOGRAM STAT 11/28/2012 3:39 PM EST H/O prostatectomy documented in this encounter Results * XR Fluoro cystogram (11/28/2012 3:39 PM [...] were obtained in the for orientations. Findings Dry Cans Back Tender Pelvis: ?? No dilated loops of air-filled [...] were obtained in the for orientations. Findings Dry Cans Back Tender Pelvis: No dilated loops of air-filled small [...] reviewed by the attending Ross Madrid MD [facility] FLUORO ORDERABLE S documented in this encounter Visit Diagnoses Diagnosis H/O prostatectomy Other postprocedural status documented in this encounter Administered Medications Inactive Administered Medications - up to 3 most recent administrations Medication Order MAR Action Action Date Dose Rate Site diatrizoate meglumine (HYPAQUE, CYSTOGRAFIN) urethral solution 150 mL 150 mL, Urethral, ONCE, 1 dose, On Tu19/13 at 1530, Routine Given 11/28/2012 3:30 PM EST 150 mLs documented in this encounter Care Teams Factorer Relationship Specialty Start Date End Date Farnaz Pineda MD [address] [place] [address] PCP - General 10/26/12 documented as of this encounter
--- OUTSIDE RECORDS SUMMARY | 2024-04-20 15:10 | XMS_ITS | Encounter Summary ---
Author Organization [facility] Address [address] [place] [address] Care Team Providers Care It Project Manager Name Role Phone Farnaz Pineda MD Primary Care Provider [phone] Reason for Visit * Reason Onset Date Comments Anticoagulation 09/21/2012 Anticoagulation 09/22/2012 Encounter Details Date Type Department Care Team (Late st Contact Info) Description 09/21/2012 Telephone [facility] Cardiology - [address] [place], [place] [id number] Neo Madrid MD Anticoagulation; Anticoagulation Social History Tobacco Use Types Packs/Day Years Used Date Smoking Tobacco: Former Cigarettes Alcohol Use Standard Drinks/Week Comments Not Asked 0 (1 standard drink = 0.6 oz pur e alcohol) Sex and Gender Information Value Date Recorded Sex Assigned at Not on file Gender Identity Male 07/02/2020 16:52 EDT Sexual Orientation Not on file documented as of this encounter Miscellaneous Notes * Telephone Encounter - Suzette Rivas LPN - 09/22/2012 1330 EST Patient will be having prostate biopsy so discussed anticoagulation with Dr. Madrid and he advised patient needed Lovenox bridge. Spoke with Fina at Dr. Pineda's office and informed her of this. She verbalized good understanding with no learning barriers. * Telephone Encounter - Jennifer Garcias - 09/22/2012 1153 EST PCP calling back regarding patient's anticoagulation medicine and prostate biopsy. Please call * Telephone Encounter - Nicole [place] - 09/21/[address] Pineda is requesting a call back regarding this patient. Per Dr. Pineda, the patient will be having a prostate biopsy and they would like to know how his anticoagulation should be handled; whether he should stop entirely or have a lovenox bridge. documented in this encounter Plan of Treatment Upcoming Encounters Date Type Department Care Team (Late st Contact Info) Description 03/18/2025 14:00 EDT Ancillary Procedure [facility] Cardiology [address] [place] [address] 03/18/2025 14:40 EDT Office Visit [facility] Cardiology [address] [place], [place] [phone] Fela Villegas NP [address] [place] [address] [address] [place] [phone] documented as of this encounter Visit Diagnoses Not on filedocumented in this encounter Care Teams It Project Manager Relationship Specialty Start Date End Date Farnaz Pineda MD [address] [place] [address] PCP - General 11/18/09 documented as of this encounter
--- OUTSIDE RECORDS SUMMARY | 2024-04-20 15:10 | XMS_ITS | Encounter Summary ---
Author Organization [facility] Address [address] [place] [address] Care Team Providers Care Community Associate Name Role Phone Farnaz Pineda MD Primary Care Provider [phone] Reason for Referral * Cardiology (Routine/Next Available) - Closed Specialty Diagnoses / Procedures [facility]erred To Contact Diagnoses Abdominal aortic aneurysm (AAA) without rupture (HCC-CMS) Procedures TRANSTHORACIC ECHO (TTE) COMPLETE WI ECHO HEART XTHORACIC,COMPLETE W DOPPLER Fela Villegas NP [address] [address] Referral ID Status Reason Start Date Expiration Date Visits Re quested Visits Authorized [id number] Closed 03/11/2022 10/09/2022 1 1 Reason for Visit * Reason Comments Heart Problem 1 yr fur aortic valv e disorder s/p AVR 2001 Encounter Details Date Type Department Care Team (Late st Contact Info) Description 03/11/2022 15:20 EDT Office Visit [facility] Cardiology - [address] [place] [address] Fela Villegas NP [address] [address] Paroxysmal atrial fibrillation (HCC-CMS) (HCC) (Primary Dx); Abdominal aortic aneurysm (AAA) without rupture (HCC-CMS) (HCC) (HCC-CMS) Social History Tobacco Use Types Packs/Day Years Used Date Smoking Tobacco: Former Cigarettes 1 1986 Smokeless Tobacco: Never Alcohol Use Standard Drinks/Week Comments Not Asked [...] Sign Reading Time Taken Comments Blood Pressure 108/58 03/11/2022 1522 EDT Pulse 68 03/11/2022 1522 EDT Temperature - - Respiratory Rate - - Oxygen Saturation 96% 03/11/2022 1522 EDT Inhaled Oxygen Concentration - - Weight 86.4 kg (190 lb 6.4 oz) 03/11/2022 1522 E DT Height - - Body Mass Index 28.95 03/05/2021 1502 EDT documented in this encounter Functional Status Functional Status Response [...] as of this encounter Progress Notes * Fela Villegas NP - 03/11/2022 1520 EDT DATE OF VISIT: 03/11/2022 CHIEF COMPLAINT: Aortic valve disease I had the pleasure of seeing Dillan Al in the [facility] cardiology clinic today for Aortic valve disease. Dillan Al is a 72 y.o. male was previously followed by Dr. Madrid. At the last office visit on 06/2019 he is followed for aortic valve disease post St Marvin mechanical valve replacement. He is taking Coumadin. PMH see below: Today he presents reports he has been feeling well. He denies any CP, OJEDA, dizziness, syncope, palpitations. He does not notice any decrease in endurance, he walks and golfs. His Coumadin is checked by DR Pineda & INR's are therapeutic, 2.5-3.5. He is complaint Coumadin. No bleeding issues. Nofalls. PAST MEDICAL HISTORY Problem List: 1. Aortic valve disease. a. 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 2001 2. Reactive airways disease. 3. Prostate cancer. a. Resection. b. Complicated by DVT. c. Complicated by sepsis. d. Nimitz filter. 4. Ascending aorta 4.4cm CURRENT MEDICATIONS Current Outpatient Medications on File Prior to Visit Medication Sig Dispense Refill ??? cyclobenzaprine (FLEXERIL) 10 mg tablet Take 10 mg by mouth 2 times daily as needed. (Patient not taking: Reported on 03/11/2022) ??? FLUTICASONE/SALMETEROL (ADVAIR DISKUS INHL) Inhale as directed 2 times daily. ??? levothyroxine (SYNTHROID) 50 mcg tablet Take 50 mcg by mouth daily. ??? montelukast (SINGULAIR) 10 mg tablet Take 10 mg by mouth daily. ??? omeprazole (PRILOSEC) 20 mg capsule Take 20 mg by mouth daily. ??? TESTOSTERONE TD Place onto the skin daily. (Patient not taking: Reported on 03/11/2022) ??? venlafaxine (EFFEXOR) 75 mg tablet Take 75 mg by mouth daily. ??? WARFARIN SODIUM (COUMADIN ORAL) Take by mouth. As directed No current facility-administered medications on file prior to visit. ALLERGIES No Known Allergies SOCIAL HISTORY reports that he quit smoking about 35 years ago. His smoking use included cigarettes. He quit after17.00 years of use. He has never used smokeless tobacco. REVIEW OF SYSTEMS Review of Systems Constitutional: Negative for chills, fever and malaise/fatigue. HENT: Negative for nosebleeds. Respiratory: Negative for cough, sputum production and shortness of breath. Cardiovascular: Negative for chest pain, palpitations, orthopnea, claudication, leg swelling and PND. Gastrointestinal: Negative for blood in stool and melena. Genitourinary: Negative for hematuria. Neurological: Negative for dizziness and loss of consciousness. Psychiatric/Behavioral: The patient does not have insomnia. PHYSICAL EXAMINATION BP 108/58 (BP Cuff Location: Left arm, BP Patient Position: Sitting, BP Cuff Sizes: Adult, regular) Pulse 68 Wt 86.4 kg (190 lb 6.4 oz) SpO2 96% BMI 28.95 kg/m?? Physical Exam Constitutional: Appearance: Normal appearance. He is normal weight. Neck: Vascular: No carotid bruit or JVD. Cardiovascular: Rate and Rhythm: Normal rate and regular rhythm. Heart sounds: No murmur heard. No friction rub. No gallop. Comments: Aortic valve click Pulmonary: Effort: Pulmonary effort is normal. Breath sounds: Normal breath sounds. No wheezing, rhonchi or rales. Abdominal: Palpations: Abdomen is soft. Musculoskeletal: General: Normal range of motion. Cervical back: Normal range of motion. Right lower leg: No edema. Left lower leg: No edema. Skin: General: Skin is warm and dry. Neurological: General: No focal deficit present. Mental Status: He is alert and oriented to person, place, and time. Psychiatric: Mood and Affect: Mood and affect normal. Behavior: Behavior normal. DATA A 12 lead EKG was performed today, 03/11/22 demonstrated sinus rhythm at 80 bpm. I reviewed the reports of the following tests: Echo performed today, 03/05/21: ??? Aortic Valve: There was a St. Marvin mechanical aortic valve. ??? Aortic Valve: AV Peak Gradient: 10mmHg. AV Mean Gradient: 6mmHg. AV Area VTI: 2.9. ??? Aortic Valve: There was no aortic valve regurgitation. ??? Left Ventricle: Left ventricular systolic function was mildly decreased with an ejection fraction of 45-50%. ??? Left Ventricle: There was possible mild diffuse hypokinesis. ??? Right Ventricle: The right ventricular cavity was normal in size. ??? Right Ventricle: Right ventricular systolic function was normal. ??? Aorta: The ascending aorta was mildly dilated at 4.4 cm. ?? Echocardiogram performed 2013: The most recent laboratory evaluation included the following: Lab Results Component Value Date NA 135 (L) 06/22/2002 K 4.0 06/24/2002 CO2 26 06/22/2002 BUN 20 06/24/2002 Lab Results Component Value Date WBC 16.12 (H) 06/24/2002 RBC 3.37 (L) 06/24/2002 HGB 10.9 (L) 06/24/2002 HCT 31.4 (L) 06/24/2002 MCV 93 06/24/2002 MCH 32.3 06/24/2002 MCHC 34.7 06/24/2002 PLT 156 06/24/2002 No results found for: TSH, TT4, FT4 No results found for: ALB, ALKPHOS, AST, ALT Lab Results Component Value Date CHOL 208 05/21/2002 HDL 54 05/21/2002 TRIG 104 05/21/2002 ASSESSMENT AND RECOMMENDATIONS In summary, Dillan Al is a 72 y.o. male with aortic valve disease post St Marvin mechanical valve replacement. He is taking Coumadin. I focused our evaluation and discussion today on the following problems: 1) aortic valve disease post St Marvin mechanical valve replacement. FLAVIO 2.9, mean gradient 6. He is taking Coumadin. INR 2.5-3.5 Echo today demonstrated FLAVIO 4.4, mean gradient 6. 2) Hypothyroidism-on synthroid 3) Ascending aorta 4.4cm-no back pain or chest pain Echo yearly Control blood pressure and lipids PLAN: Echo for valve and ascending aorta Cardiac CT scan for ascending aorta follow up Continue Coumadin, INR 2.5 to 3.5 Lipids are checked by PCP I spent a total of 30 minutes on the date of this encounter meeting with the patient and reviewing documentation/coordinating care as described in the above note.This was separate from any proceduresperformed at the time of the visit. Thank you for allowing me to participate in his care. Fela Villegas NP 03/11/2022 15:32 documented in this encounter Plan of Treatment Upcoming Encounters Date Type Department Care Team (Late st Contact Info) Description 03/18/2025 14:00 EDT Ancillary Procedure [facility] Cardiology [address] [address] [address] [place], [place] [id number] 03/18/2025 14:40 EDT Office Visit [facility] Cardiology [facility] [address] [place], [place] [phone] Fela Villegas NP [address] [facility] [address] [place] [address] Scheduled Orders Name Type Priority Associated Diagnoses Order Schedule TRANSTHORACIC ECHO (TTE) COMPLETE Echocardiography Routine Abdominal aortic aneurysm (AAA) without rupture (HCC-CMS) (HCC) (HCC-CMS) Expected: 03/11/2022, Expires: 03/11/2024 documented as of this encounter Procedures Procedure Name Priority Date/Time Associated Diagnosis Comments ECG REPORT - SCANNED 03/15/2022 14:59 EDT EKG 12-LEAD Routine 03/11/2022 15:27 EDT Paroxysmal atrial fibrillation (HCC-CMS) (HCC) documented in this encounter Results * ECG REPORT - SCANNED (03/15/2022 14:59 EDT) 03/15/2022 14:5 9 EDT Scan 2 Senior Power Scheduler PROCEDURE/MINOR MARCO A GICAL ORDERABLES * EKG 12-LEAD (03/11/2022 15:27 EDT) 03/11/2022 15:2 7 EDT Narrative [facility] EKG - 03/15/2022 14:55 EDT ? [facility] ? Test Date: ?2022-03-11 Pat Name: ? DILLAN AL ? Department: ?? [place] Card ? Room: ? Gender: ? Male ? Last Trimmer: ?? [id number] : ?1950 ? Requested By: GIULIA Mccormick Order Number: [id number] ? Reading MD: ?? ALVARO LECHUGA MD ? Measurements Intervals ?[place] ? Rate: ? 80 ? P: ?49 WI: ? 180 ?QRS: ?80 QRSD: ? 116 ?T: ?30 QT: ? 363 ? QTc: ?421 ? Interpretive Statements SINUS RHYTHM Compared to ECG 07/04/2020 14:34:35 Ventricular premature complex(es) no longer present I reviewed the tracing and have either agreed or edited the findings in this report. Electronically Signed On 03-15-2022 14:55:35 EDT by ALVARO LECHUGA MD. Procedure Note Alvaro Lechuga MD - 03/15/2022 [facility] Test Date: 2022-03-11 Pat Name: DILLAN AL Department: [place] Room: Gender: Male Last Trimmer: [id number] : 1950 Requested By: GIULIA Mccormick Order Number: [id number] Reading MD: ALVARO LECHUGA MD Measurements Intervals [place] Rate: 80 P: 49 WI: 180 QRS: 80 QRSD: 116 T: 30 QT: 363 QTc: 421 Interpretive Statements SINUS RHYTHM Compared to ECG 07/04/2020 14:34:35 Ventricular premature complex(es) no longer present I reviewed the tracing and have either agreed or edited the findings inthis report. Electronically Signed On 03-15-2022 14:55:35 EDT by ALVARO KNOTT. Fela Villegas NP CARDIAC ECG ORDERABL ES [facility] EKG documented in this encounter Visit Diagnoses Diagnosis Paroxysmal atrial fibrillation (HCC-CMS)- Primary Atrial fibrillation Abdominal aortic aneurysm (AAA) without rupture (HCC-CMS) documented in this encounter Care Teams Community Associate Relationship Specialty Start Date End Date Farnaz Pineda MD [address] [place] [address] PCP - General 11/18/09 documented as of this encounter
--- OUTSIDE RECORDS SUMMARY | 2024-04-20 15:10 | XMS_ITS | Encounter Summary ---
Author Organization [facility] Address [address] [place] [address] Care Team Providers Care Windows Deployment Technician Name Role Phone Farnaz Pineda MD Primary Care Provider [phone] Fela Villegas FINISH SPECIALIST Unavailable [phone] Reason for Visit * Reason Onset Date Comments Coordination Of Care 04/07/2022 Encounter Details Date Type Department Care Team (Late st Contact Info) Description 04/07/2022 Telephone [facility] Cardiology - [address] [phone] Fela Villegas NP 62 [facility] [address] [place] [address] Coordination Of Care Social History Tobacco Use Types Packs/Day Years Used Date Smoking Tobacco: Former Cigarettes 1 0 - 1986 Smokeless Tobacco: Never Alcohol Use Standard [...] encounter Miscellaneous Notes * Telephone Encounter - Sasha Ram RN - 04/07/2022 1153 EDT Pt wanting to confirm that he needed an echo completed. I let him know he had an EKG completed at last [facility] but Elda does in fact want another echo completed. Pt is going to have echo completed at [facility].No further questions, no barriers to learning identified. * Telephone Encounter - Bob Robbins - 04/07/2022 1030 EDT Patient is calling clinic to see if he should still have echo done, patient has ct scan scheduled 06/18/22. Patient would like to speak with a nurse for clarification. Please contact patient to discuss. documented in this encounter Plan of Treatment Upcoming Encounters Date Type Department Care Team (Late st Contact Info) Description 03/18/2025 14:00 EDT Ancillary Procedure [facility] - [address] [address] 03/18/2025 14:40 EDT Office Visit [facility] - [address] [place] [address] Fela Villegas NP [address] [place] [phone] documented as of this encounter Visit Diagnoses Not on filedocumented in this encounter Care Teams Windows Deployment Technician Relationship Specialty Start Date End Date Farnaz Pineda MD [address] [place] [address] PCP - General 11/18/09 Fela Villegas NP [address] [place] [phone] Property Clerk Cardiovascular Disease 03/12/22 documented as of this encounter
--- OUTSIDE RECORDS SUMMARY | 2024-04-20 15:10 | XMS_ITS | Encounter Summary ---
Author Organization [facility] Address [address] [place] [address] Care Team Providers Care Plastics Engineer Name Role Phone Farnaz Pineda MD Primary Care Provider [phone] Encounter Details Date Type Department Care Team (Late st Contact Info) Description 03/27/2010 Abstract [facility] Cardiology - [facility] [place] [address] Farnaz Pineda MD [address] [place] [address] Social History Tobacco Use Types Packs/Day Years Used Date Smoking Tobacco: Never Assessed Sex and Gender Information Value Date Recorded Sex Assigned at Not on file Gender Identity Male 07/02/2020 16:52 EDT Sexual Orientation Not on file documented as of this encounter Plan of Treatment Upcoming Encounters Date Type Department Care Team (Late st Contact Info) Description 03/18/2025 14:00 EDT Ancillary Procedure [facility] Cardiology [facility] [address] [place], [place] [phone] 03/18/2025 14:40 EDT Office Visit [facility] Cardiology [facility] [place] [address] Fela Villegas NP 62 [facility] [address] [place] [address] documented as of this encounter Visit Diagnoses Not on filedocumented in this encounter Historical Medications * This list may reflect changes made after this encounter. Medication Sig Dispensed Refills Start Date End Date omeprazole (PRILOSEC) 20 mg capsule Take 1 Capsule by mouth daily. montelukast (SINGULAIR) 10 mg tablet Take 1 Tablet by mouth daily. WARFARIN SODIUM (COUMADIN ORAL) Take by mouth. As directed FLUTICASONE/SALMETEROL (ADVAIR DISKUS INHL) Inhale as directed 2 times daily. 03/15/[address] onto the skin daily. 03/15/2024 Aspirin 81 mg Tab Take 81 mg by mouth daily. 07/03/2019 added in this encounter Care Teams Plastics Engineer Relationship Specialty Start Date End Date Farnaz Pineda MD [address] [place] [address] PCP - General 11/18/09 documented as of this encounter
--- OUTSIDE RECORDS SUMMARY | 2024-04-20 15:10 | XMS_ITS | Encounter Summary ---
Author Organization [facility] Address [address] [place] [address] Care Team Providers Care Assembler Camper Name Role Phone Farnaz Pineda MD Primary Care Provider [phone] Fela Villegas LIGHTER Unavailable [phone] Encounter Details Date Type Department Care Team (Late st Contact Info) Description 03/15/2022 Orders Only [facility] Cardiothoracic Surgery - [facility] [address] [place], [place] [phone] Brook Llanos, PAConstantin Aortic valve insufficiency, etiology of cardiac valve disease unspecified (Primary Dx) Social History Tobacco Use Types Packs/Day Years Used Date Smoking Tobacco: Former Cigarettes 1986 Smokeless Tobacco: Never Alcohol Use Standard [...] as of this encounter Progress Notes * Brook Llanos PA-C - 03/15/2022 0936 EDT c documented in this encounter Plan of Treatment Upcoming Encounters Date Type Department Care Team (Late st Contact Info) Description 03/18/2025 14:00 EDT Ancillary Procedure [facility] Cardiology - [place] [address] [place] [address] 03/18/2025 14:40 EDT Office Visit [facility] Cardiology - [address] [place] [address] Fela Villegas NP [address] [place] [phone] documented as of this encounter Visit Diagnoses Diagnosis Aortic valve insufficiency, etiology of cardiac valve disease unspecified- Primary documented in this encounter Care Teams Assembler Camper Relationship Specialty Start Date End Date Farnaz Pineda MD [address] [place] [address] PCP - General 11/18/09 Fela Villegas NP [address] [place] [phone] Mill Tender Washing Cardiovascular Disease 03/12/22 documented as of this encounter
--- OUTSIDE RECORDS SUMMARY | 2024-04-20 15:10 | XMS_ITS | Encounter Summary ---
Author Organization [facility] Address [address] [place] [address] Care Team Providers Care Machine Farmworker Name Role Phone Farnaz Pineda MD Primary Care Provider [phone] Reason for Visit * Reason Comments Irregular Heart Beat Encounter Details Date Type Department Care Team (Late st Contact Info) Description 05/17/2016 9:45 EDT Office Visit [facility] Cardiology - [address] [place] [address] Neo Madrid MD Aortic valve disorder (Primary Dx) Social History Tobacco Use Types [...] Sign Reading Time Taken Comments Blood Pressure 122/78 05/17/2016 0945 EDT Pulse 64 05/17/2016 0945 EDT Temperature - - Respiratory Rate - - Oxygen Saturation - - Inhaled Oxygen Concentration - - Weight 95.3 kg (210 lb) 05/17/2016 0945 EDT Height 172.7 cm (5' 7.99) 05/17/2016 0945 EDT Body Mass Index 31.94 05/17/2016 0945 EDT documented in this encounter Progress Notes * Neo Madrid MD - 05/17/2016 1021 EDT [facility] CARDIOLOGY May 17, 2016 Farnaz Pineda MD [facility] [address] [facility] [address] [place] [address] RE: DILLAN AL : [address] Pineda: I saw Mr Al back in cardiology clinic. I had seen him a year ago. As you know, I follow him status post aortic valve replacement with a St. Marvin valve. In the interim, he has done very well. He has no chest pains. He has had no PND. He continues to take Coumadin and has had no bleeding issues. He has otherwise been feeling very well and now returns in followup. Problem List: 1. Aortic valve disease. a. Status post aortic valve replacement, St. Marvin valve. 2. Reactive airway disease. 3. Prostate cancer. a. Resection. b. Complicated by DVT. c. Complicated by sepsis. d. Berry filter. Current Meds: Aspirin 81 mg a day. Levothyroxine 50 mcg a day. Omeprazole 20 mg a day. Venlafaxine 75 mg a day. Warfarin as directed. Physical Exam: He was alert, oriented x3, in no acute distress. Blood pressure was 122/74, pulse was 70 and regular. Lungs were clear. Cardiac examination: S1 and S2 were normal. There were normal clicking sounds of the valve. There was a 1/6 systolic ejection murmur along the left sternal border. There was no diastolic murmur, gallop or rub. Abdomen was soft, nontender. Liver and spleen could not be palpated. Extremities showed no edema. Assessment: Mr Al is doing well. I would just continue him on his current medical regimen. I do not believe he needs to be on aspirin in addition to Coumadin. There is no evidence that provides significant benefit. At this point, I would follow him up in another year's time. If he has further problems in the meantime, I would be happy to see him sooner. Thank you again for allowing me to see him and participate in his care. Sincerely, Neo Madrid MD 09 57 AM - Neo Madrid MD mn Dictation ID: [id number] cc: Farnaz Pineda MD, [address], [facility], [place] [address] * Neo Madrid MD - 05/17/2016 0957 EDT This office note has been dictated. documented in this encounter Plan of Treatment Upcoming Encounters Date Type Department Care Team (Late st Contact Info) Description 03/18/2025 14:00 EDT Ancillary Procedure [facility] Cardiology - [address] [address] 03/18/2025 14:40 EDT Office Visit [facility] Cardiology - [address] [phone] Fela Villegas NP 62 [facility] [address] [place] [phone] documented as of this encounter Visit Diagnoses Diagnosis Aortic valve disorder- Primary Aortic valve disorders documented in this encounter Care Teams Machine Farmworker Relationship Specialty Start Date End Date Farnaz Pineda MD [address] [place] [address] PCP - General 11/18/09 documented as of this encounter
--- OUTSIDE RECORDS SUMMARY | 2024-04-20 15:10 | XMS_ITS | Encounter Summary ---
Author Organization [facility] Address [address] [place] [address] Care Team Providers Care Oracle Ebs Consultant Name Role Phone Farnaz Pineda MD Primary Care Provider [phone] Reason for Referral * Cardiology (Routine) - Closed Specialty Diagnoses / Procedures [facility] To Contact Cardiology Diagnoses H/O aortic valve replacement Procedures TRANSTHORACIC ECHO (TTE) COMPLETE Fela Villegas NP [address] [address] [facility] Cardiology [address] [place] [address] [place] [address] Referral ID Status Reason Start Date Expiration Date Visits Re quested Visits Authorized [id number] Closed 07/04/2020 1 1 Reason for Visit * Reason Comments Follow-up 1 YR FUR Encounter Details Date Type Department Care Team (Late st Contact Info) Description 07/04/2020 14:20 EDT Office Visit [facility] Cardiology - [facility] [place] [address] Fela Villegas NP [address] [address] H/O aortic valve replacement (Primary Dx) Social History Tobacco Use Types [...] 16:52 EDT Sexual Orientation Not on file COVID-19 Exposure Response Date Recorded In the last month, have you been in contact with someone who was confirmed or suspected to have Coronavirus / COVID-19? No / Unsure 07/02/2020 16:49 EDT documented as of this encounter Last Filed Vital Signs Vital Sign Reading Time Taken Comments Blood Pressure 138/80 07/04/2020 1424 EDT Pulse 68 07/04/2020 1424 EDT Temperature - - Respiratory Rate - - Oxygen Saturation 100% 07/04/2020 1424 EDT Inhaled Oxygen Concentration - - Weight 98.1 kg (216 lb 3.2 oz) 07/04/2020 1424 E DT Height - - Body Mass Index 32.87 07/03/2019 1425 EDT documented in this encounter Functional Status [...] this encounter Progress Notes * Fela Villegas APRN - 07/04/2020 1420 EDT DATE OF VISIT: 07/04/2020 CHIEF COMPLAINT: Aortic valve disease I had the pleasure of seeing Dillan Al in the [facility] cardiology clinic today for Aortic valve disease. Dillan Al is a 70 y.o. male was previously followed by Dr. [...] DR Pineda & INR's are therapeutic, 2.5-3.5. PAST MEDICAL HISTORY Problem List: 1. Aortic valve disease. a. 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 2001 2. Reactive airways disease. 3. Prostate cancer. a. Resection. b. Complicated by DVT. c. Complicated by sepsis. d. Calhoun filter. CURRENT MEDICATIONS Current Outpatient Medications on File Prior to Visit Medication Sig Dispense Refill ??? cyclobenzaprine (FLEXERIL) 10 mg tablet Take 10 mg by mouth 2 times daily as needed. ??? FLUTICASONE/SALMETEROL (ADVAIR DISKUS INHL) Inhale as directed 2 times daily. ??? levothyroxine (SYNTHROID) 50 mcg tablet Take 50 mcg by mouth daily. ??? montelukast (SINGULAIR) 10 mg tablet Take 10 mg by mouth daily. ??? omeprazole (PRILOSEC) 20 mg capsule Take 20 mg by mouth daily. ??? TESTOSTERONE TD Place onto the skin daily. ??? venlafaxine (EFFEXOR) 75 mg tablet Take 75 mg by mouth daily. ??? WARFARIN SODIUM (COUMADIN ORAL) Take by mouth. As directed No current facility-administered medications on file prior to visit. ALLERGIES No Known Allergies SOCIAL HISTORY reports that he quit smoking about 33 years ago. His smoking use included cigarettes. [...] does not have insomnia. PHYSICAL EXAMINATION BP 138/80 (BP Cuff Location: Left arm, BP Patient Position: Sitting, BP Cuff Sizes: Adult, regular) Pulse 68 Wt 98.1 kg (216 lb 3.2 oz) SpO2 100% BMI 32.87 kg/m?? Physical Exam Constitutional: He is oriented to person, place, and time and well-developed, well-nourished, and in no distress. Neck: No JVD present. Cardiovascular: Normal rate, regular rhythm and intact distal pulses. Exam reveals no gallop and nofriction rub. No murmur heard. Aortic valve click Musculoskeletal: Normal range of motion. General: No edema. Neurological: He is alert and oriented to person, place, and time. Skin: Skin is warm and dry. Psychiatric: Affect normal. DATA I personally reviewed a 12-lead EKG performed in the office today, 07/04/2020, which showed sinus rhythm at 70 bpm. I reviewed the reports of the following tests: ?? Echocardiogram performed 2013: The most recent [...] 156 06/24/2002 No results found for: TSH, TT4 No results found for: ALB, ALKPHOS, AST, ALT Lab Results Component Value Date CHOL 208 05/21/2002 HDL 54 05/21/2002 TRIG 104 05/21/2002 ASSESSMENT AND RECOMMENDATIONS In summary, Dillan Al is a 70 y.o. male with aortic valve disease post St Marvin mechanical valve replacement. He is taking Coumadin. I focused our evaluation and discussion today on the following problems: 1) aortic valve disease post St Marvin mechanical valve replacement. He is taking Coumadin. INR 2.5-3.5 No syncopoe, OJEDA, decreased endurance Last echo 2011 2) Hypothyroidism-on synthroid PLAN: He has had lipids performed Echo prior to next office visit, same day RTC 8m Thank you for allowing me to participate in his care. Fela Villegas APRN 07/04/2020 14:38 documented in this encounter Plan of Treatment Upcoming Encounters Date Type Department Care Team (Late st Contact Info) Description 03/18/2025 14:00 EDT Ancillary Procedure [facility] Cardiology - [facility] [address] [facility] [place] [address] 03/18/2025 14:40 EDT Office Visit [facility] Cardiology - [facility] [address] [facility] [place] [address] Fela Villegas NP [address] [facility] [address] [place] [address] documented as of this encounter Procedures Procedure Name Priority Date/Time Associated Diagnosis Comments ECG REPORT - SCANNED 07/09/2020 11:56 EDT EKG 12-LEAD Routine 07/04/2020 14:34 EDT H/O aortic valve replacement documented in this encounter Results * TRANSTHORACIC ECHO (TTE) COMPLETE W/DOPPLER W/CF NO CONTRAST (03/05/2021 2:46 EDT) LA Atrial Length A2C 5.1 cm MERGE CARDI O LA Atrial Area A4C 15.5 cm2 MERGE CARDIO LA ID/bsa, A-P 1.7 cm/m2 MERGE CARDIO LA ID, A-P, ES 3.5 cm MERGE CARDIO LV PW thickness, ED, PLAX 0.9 0.6 - 1.1 cm MERGE CARDIO Aortic valve mean velocity, S 1.2 m/s MERGE CARDIO LVOT mean gradient, S 4 mmHg MERGE CARDIO Aortic valve area, peak velocity 2.7 cm2 MERGE CARDIO Aortic mean gradient, S 6 mmHg MERGE CARDIO AV LVOT peak gradient 6 mmHg MERGE CARDIO LV e', lateral 0.10 m/s MERGE CARDIO Mitral deceleration time 303 ms MERGE CARDIO LV IVRT, DP 63 msec MERGE CARDIO LVOT area 3.5 cm2 MERGE CARDIO LVOT peak velocity, S 1.3 m/s MERGE CARDIO LVOT VTI, S 25.9 cm MERGE CARDIO Aortic valve peak velocity, S 1.6 m/s MERGE CARDIO Aortic valve VTI, S 31.1 cm MERGE CARDIO Stroke volume (SV), LVOT DP 90 ml MERGE CARDIO Aortic peak gradient, S 10 mmHg MERGE CARDIO LVOT mean velocity, S 0.9 m/s MERGE CARDIO Mitral E-wave peak velocity 0.5 m/s MERGE CARDIO Mitral A-wave peak velocity 0.6 m/s MERGE CARDIO LV Systolic Volume 88 mL MERGE CARDIO LV Diastolic Volume 230 mL MERGE CARDIO AV DOI 0.78 MERGE CARDIO LA Atrial Length A4C 6.5 cm MERGE CARDI O LVOT ID, S 2.1 cm MERGE CARDIO LA volume/bsa, ES, A4C 15.0 ml/m2 MERGE CARDIO LA volumes, ES, A4C 32.0 ml MERGE CARDIO Stroke index (SV/bsa) LVOT DP 43.0 ml/m2 MERGE CARDIO Aortic valve area VTI 2.9 cm2 MERGE CARDIO Interventricular Septum to Posterior Wall Thickness Ratio 1.1 MERGE CARDIO IVS thickness, ED, PLAX 1.0 cm MERGE CARDIO LV e', medial 0.07 m/s MERGE CARDIO AV dimensionless index (DI) 1.4 MERGE CARDIO LV e', average 0.09 m/s MERGE CARDIO Velocity ratio, mean, LVOT/AV 0.75 MERGE CARDIO Aortic valve area 2.6 cm2 MERGE CARDIO AVAI Pk Anthony 1.2 cm2/m2 MERGE CARDIO Pulmonic valve mean velocity, S 1 cm/s MERGE CARDIO Ascending aorta ID, a-p 3.9 cm MERGE CARDIO LA Atrial Area A2C 15.5 cm2 MERGE CARDIO LV ID, ED, PLAX 6.7 3.5 - 6.0 cm MERGE CARDIO LV ID, ES, PLAX 4.4 2.1 - 4.0 cm MERGE CARDIO LV E/e', lateral 5.0 MERGE CARDIO LV E/e', medial 5.0 MERGE CARDIO LV E/e', average 5 MERGE CARDIO Anatomical Region Laterality Modality Ultrasound Narrative 03/05/2021 15:14 EDT ?Aortic Valve: There was a St. Marvin mechanical aortic valve. ?Aortic Valve: AV Peak Gradient: 10mmHg. AV Mean Gradient: 6mmHg. AV Area VTI: 2.9. ?Aortic Valve: There was no aortic valve regurgitation. ?Left Ventricle: Left ventricular systolic function was mildly decreased with an ejection fraction of 45-50%. ?Left Ventricle: There was possible mild diffuse hypokinesis. ?Right Ventricle: The right ventricular cavity was normal in size. ?Right Ventricle: Right ventricular systolic function was normal. ?Aorta: The ascending aorta was mildly dilated at 4.4 cm. Left Ventricle The left ventricular cavity was normal in size. Left ventricular systolic function was mildly decreased with an ejection fraction of 45-50%. Left ventricular diastolic parameters were normal. Left ventricular wall thickness was normal. There was possible mild diffuse hypokinesis. Right Ventricle The right ventricular cavity was normal in size. Right ventricular systolic function was normal. Right ventricular wall thickness was normal. Left Atrium The left atrium was normal in size. Right Atrium The right atrium was normal in size. IVC/SVC The inferior vena cava was normal in size. The inferior vena cava demonstrated a diameter of <=21 mm and collapses >50%; therefore, the right atrial pressure is estimated at 0-5 mmHg. Mitral Valve Mitral valve structure was normal. There was trace mitral regurgitation. There was no significant mitral valve stenosis. Tricuspid Valve Tricuspid valve structure was normal. There was no tricuspid valve regurgitation. There was no tricuspid valve stenosis. Aortic Valve There was a St. Marvin mechanical aortic valve. There was no aortic valve stenosis. There was no aortic valve regurgitation. AV Peak Gradient: 10mmHg. AV Mean Gradient: 6mmHg. AV Area VTI: 2.9. Pulmonic Valve The pulmonic valve was not well visualized. There was mild pulmonic valve regurgitation. There was no pulmonic valve stenosis. Ascending Aorta The ascending aorta was mildly dilated at 4.4 cm. Pericardium There was no pericardial effusion. Pulmonic Artery Pulmonary systolic pressure was within the normal range. Study Details Study status: Routine. Transthoracic echocardiography. M-Mode, complete 2D, complete spectral Doppler, and color Doppler.The study was interpreted by [facility]. Pertinent images and digital data are archived for permanent storage and are available for subsequent review. Scanning was performed from the apical, parasternal, subcostal and suprasternal acoustic windows. Overall the study quality was adequate. Images were obtained using cardiac ultrasound machine [employer] #19. Fela Villegas NP CARDIAC ECHO ORDERAB LES * ECG REPORT - SCANNED (07/09/2020 11:56 EDT) 07/09/2020 11:5 6 EDT Scan 2 Feather Stitcher PROCEDURE/MINOR MARCO A GICAL ORDERABLES * EKG 12-LEAD (07/04/2020 14:34 EDT) 07/04/2020 14:3 4 EDT Narrative [facility] EKG - 07/09/2020 11:44 EDT ? [facility] ? Test Date: ?2020-07-04 Pat Name: ? DILLAN AL ? Department: ?? [facility] Card ? Room: ? Gender: ? Male ? Interventional Tech: ?? [id number] : ?1950 ? Requested By: GIULIA Mccormick Order Number: [id number] ?Reading : ?? BRENT MATA SA, MD ? Measurements Intervals ?[place] ? Rate: ? 70 ? P: ?8 WI: ? 180 ?QRS: ?26 QRSD: ? 109 ?T: ?70 QT: ? 395 ? QTc: ?426 ? Interpretive Statements SINUS RHYTHM WITH OCCASIONAL VENTRICULAR PREMATURE COMPLEXES Automated Interpretation. ??Provider Interpretation to follow. Compared to ECG 08/16/2002 12:01:52 Ventricular premature complex(es) now present T-wave abnormality no longer present Possible ischemia no longer present I reviewed the tracing and have either agreed or edited the findings in this report. Electronically Signed On 07-09-2020 11:44:36 EDT by BRENT MATA SA, MD. Procedure Note Brent Todd Sa, MD - 07/09/2020 [facility] Test Date: 2020-07-04 Pat Name: DILLAN AL Department: [facility] Room: Gender: Male Interventional Tech: [id number] : 1950 Requested By: GIULIA Mccormick Order Number: [id number] Kwadwo MD: BRENT FOY Measurements Intervals [place] Rate: 70 P: 8 WI: 180 QRS: 26 QRSD: 109 T: 70 QT: 395 QTc: 426 Interpretive Statements SINUS RHYTHM WITH OCCASIONAL VENTRICULAR PREMATURE COMPLEXES Automated Interpretation. Provider Interpretation to follow. Compared to ECG 08/16/2002 12:01:52 Ventricular premature complex(es) now present T-wave abnormality no longer present Possible ischemia no longer present I reviewed the tracing and have either agreed or edited the findings inthis report. Electronically Signed On 07-09-2020 11:44:36 EDT by BRENT COLEY SA, MD. Fela Villegas NP CARDIAC ECG ORDERABL ES [facility] EKG documented in this encounter Visit Diagnoses Diagnosis H/O aortic valve replacement- Primary Heart valve replaced by other means H/O aortic valve replacement Heart valve replaced by other means documented in this encounter Care Teams Oracle Ebs Consultant Relationship Specialty Start Date End Date Farnaz Pineda MD [address] [place] [address] PCP - General 11/18/09 documented as of this encounter
--- OUTSIDE RECORDS SUMMARY | 2024-04-20 15:10 | XMS_ITS | Encounter Summary ---
Author Organization [facility] Address [address] [place] [address] Care Team Providers Care [employer] Multimedia Sales Name Role Phone Farnaz Pineda MD Primary Care Provider [phone] Fela Villegas WAREHOUSE CONSULTANT Unavailable [phone] Reason for Visit * Reason Onset Date Comments Appointment Related 03/19/2022 Encounter Details Date Type Department Care Team (Late st Contact Info) Description 03/19/2022 Telephone [facility] Cardiology - [address] [id number] Fela Villegas NP 62 [facility] [address] [place] [phone] Appointment Related Social History Tobacco Use Types Packs/Day Years [...] encounter Miscellaneous Notes * Telephone Encounter - Nile Barillas - 03/19/2022 1428 EDT Jessica from [facility] called for a AUTH for Transthoracic Echo. documented in this encounter Plan of Treatment Upcoming Encounters Date Type Department Care Team (Late st Contact Info) Description 03/18/2025 14:00 EDT Ancillary Procedure [facility] Cardiology - [address] [place] [address] 03/18/2025 14:40 EDT Office Visit [facility] Cardiology - [address] [place], [place] [phone] Fela Villegas NP [address] [place] [phone] documented as of this encounter Visit Diagnoses Not on filedocumented in this encounter Care Teams [employer] Sales Relationship Specialty Start Date End Date Farnaz Pineda MD [address] [place] [address] PCP - General 11/18/09 Fela Villegas NP [address] [place] [phone] Oracle Ebs Architect Cardiovascular Disease 03/12/22 documented as of this encounter
--- OUTSIDE RECORDS SUMMARY | 2024-04-20 15:10 | XMS_ITS | Encounter Summary ---
Author Organization [facility] Address [address] [place] [address] Care Team Providers Care Perch Machine Inspector Name Role Phone Farnaz Pineda MD Primary Care Provider [phone] Reason for Visit * Reason Onset Date Comments Medication Management 01/23/2013 Encounter Details Date Type Department Care Team (Late st Contact Info) Description 01/23/2013 Telephone [facility] Cardiology - [address] [place] [address] Neo Madrid MD Medication Management Social History Tobacco Use Types Packs/Day Years [...] encounter Miscellaneous Notes * Telephone Encounter - Haleigh Nesbitt - 01/23/2013 9839 EDT Patient had radicule protectomy at [facility] on 11/20 and has been back to ER 3 times for blood clots in bladder and one time admitted for DVT in lower left leg which they put a filter in(around 01/08).They also did a cystoscopy which showed that everything is healing well. Patient is on coumadin and PCP has been trying to keep INR at 2.5.patient went to ER again yesterday because of peeing blood and hip pain. Urologist recommend to be off coumadin for a couple of days and have INR checked with PCP. is concerned because of valve and DVT that maybe the lovenox might be better. Informed that Dr. Madrid is out of town and will ask COD. Talked to Dr. Nunes and he stated that patient shouldn't stop the coumadin and no switch to lovenox unless hematology concerned that coumadin is not effective. Repeated back for verification. Patient notified of recommendation and verbalized understanding without out any learning barriers identified. Patient concerned what to do and asked her to call urology and say the cardiology doesn'trecommend to stop the coumadin and ask where to go from here. * Telephone Encounter - Soledad Palacio - 01/23/2013 0806 EDT Pts would like to speak to a nurse or Dr. Madrid about the pts coumadin. Pt has been having blood clots and bleeding and pts is wondering if lovanox or another med might be a better option. documented in this encounter Plan of Treatment Upcoming Encounters Date Type Department Care Team (Late st Contact Info) Description 03/18/2025 14:00 EDT Ancillary Procedure [facility] Cardiology - [address] [place], [place] [id number] 03/18/2025 14:40 EDT Office Visit [facility] Cardiology - [address] [place] [address] Fela Villegas NP 62 [facility] [address] [place] [address] documented as of this encounter Visit Diagnoses Not on filedocumented in this encounter Historical Medications * This list may reflect changes made after this encounter. Medication Sig Dispensed Refills Start Date End Date cyclobenzaprine (FLEXERIL) 10 mg tablet Take 10 mg by mouth 2 times daily as needed. 03/15/2024 added in this encounter Care Teams Perch Machine Inspector Relationship Specialty Start Date End Date Farnaz Pineda MD [address] [place] [address] PCP - General 11/18/09 documented as of this encounter
--- OUTSIDE RECORDS SUMMARY | 2024-04-20 15:10 | XMS_ITS | Encounter Summary ---
Author Organization [facility] Address [address] [place] [address] Care Team Providers Care World Travel Counselor Name Role Phone Farnaz Pineda MD Primary Care Provider [phone] Fela Villegas PHILOSOPHY INSTRUCTOR Unavailable [phone] Reason for Visit * Reason Onset Date Comments Appointment Related 03/17/2022 Encounter Details Date Type Department Care Team (Late st Contact Info) Description 03/17/2022 Telephone [facility] Cardiothoracic Surgery - [address] [phone] Anahi Munoz MD [address] [place] [address], [address] [place] [address] Appointment Related Social History Tobacco Use Types [...] encounter Miscellaneous Notes * Telephone Encounter - AxelDinahMadhuri - 03/17/2022 1031 EDT TC to patient to advise of two appointments on 06/18. At 8:45 am, the patient will arrive in the Registration Office for a 9:00 am CTA Chest Abdomen and Pelvis. At 11:30 am the patient will have a consultation with Dr Mnuoz. Patient confirmed that he would be attending these appointments. documented in this encounter Plan of Treatment Upcoming Encounters Date Type Department Care Team (Late st Contact Info) Description 03/18/2025 14:00 EDT Ancillary Procedure [facility] Cardiology - [address] [place], [place] [phone] 03/18/2025 14:40 EDT Office Visit [facility] Cardiology - [address] [place] [address] Fela Villegas NP [address] [phone] documented as of this encounter Visit Diagnoses Not on filedocumented in this encounter Care Teams World Travel Counselor Relationship Specialty Start Date End Date Farnaz Pineda MD [address] [place] [address] PCP - General 11/18/09 Fela Villegas NP [address] [phone] Surveyor Geodetic Cardiovascular Disease 03/12/22 documented as of this encounter
--- OUTSIDE RECORDS SUMMARY | 2024-04-20 15:10 | XMS_ITS | Encounter Summary ---
Author Organization [facility] Address [address] [place] [address] Care Team Providers Care Rubber Stamps And Dies Supervisor Name Role Phone Farnaz Pineda MD Primary Care Provider [phone] Fela Villegas MANAGEMENT INTERNSHIP Unavailable [phone] Reason for Referral * Cardiology (Routine/Next Available) - New Request Specialty Diagnoses / Procedures Referred By Berta t Referred To Contact Diagnoses Encounter for follow-up for aortic valve replacement Procedures TRANSTHORACIC ECHO (TTE) COMPLETE ME ECHO TTHRC R-T 2D W/WOM-MODE COMPL SPEC&COLR D Fela Villegas NP [address] [address] [facility] Referral ID Status Reason Start Date Expiration Date V isits Requested Visits Authorized [id number] New Request 03/15/2024 1 1 * (Routine/Next Available) - New Request Specialty Diagnoses / Procedures Referred By Contac t Referred To Contact Diagnoses Paroxysmal atrial fibrillation (HCC-CMS) Procedures AMB ECONSULT PULMONOLGY OTHER Fela Villegas NP 62 [email or web address] [address] [place] [phone] Referral ID Status Reason Start Date Expiration Date Visits Requested Visits Authorized [id number] New Request Specialty Services Required 03/15/2024 1 1 Reason for Visit * Reason Comments Heart Problem Encounter Details Date Type Department Care Team (Late st Contact Info) Description 03/15/2024 15:20 EDT Office Visit [facility] Cardiology - [facility] 62 [facility] [place], [place] [id number] Fela Villegas NP 62 [facility] [address] [place] [address] Paroxysmal atrial fibrillation (HCC-CMS) (Primary Dx); Encounter for follow-up for aortic valve replacement Social History Tobacco Use Types Packs/Day Years [...] Sign Reading Time Taken Comments Blood Pressure 104/60 03/15/2024 1520 EDT Pulse 67 03/15/2024 1520 EDT Temperature - - Respiratory Rate - - Oxygen Saturation 99% 03/15/2024 1520 EDT Inhaled Oxygen Concentration - - Weight 83.4 kg (183 lb 12.8 oz) 03/15/2024 1520 EDT Height - - Body Mass Index 27.95 03/05/2021 1502 EDT documented in this encounter [...] Dispensed Refills Start Date End Da te atorvastatin (LIPITOR) 20 mg tablet Take 1 Tablet by mouth at bedtime. 30 Tablet 5 03/15/2024 documented in this encounter Progress Notes * Fela Villegas NP - 03/15/2024 1520 EDT DATE OF VISIT: 03/15/2024 CHIEF COMPLAINT: Aortic valve disease I had the pleasure of seeing Dillan Al in the [facility] cardiology clinic today for Aortic valve disease. Dillan Al is a 74 y.o. male was previously followed by Dr. Madrid. At the last office visit on 06/2019 he is followed for aortic valve disease post [facility] Marvin mechanical valve replacement. He is taking Coumadin. PMH see below: He had a long hospitalization with GI bleeding, received PRBC, and GI was cauterized. He had an echo and a BRANDY, aortic valve functioning normally. He remains on Coumadin. Today he presents reports he has been feeling well. He has a productive cough, worse at night, no fever or chills, he saw his PCP and pulmonary at [facility], and CT scan was performed. No COPD or asthma. He was started on Albuterol and Breztri, He also had a pulmonary u sound. He had a repeat CTscan, plan is for bronchoscopy. He denies any CP, baseline OJEDA with going up a hill, No, dizziness,syncope, palpitations. He does not notice any decrease in endurance, he walks and golfs. His Coumadin is checked by DR Pineda & INR's are therapeutic, 2.5-3.5. He is complaint Coumadin. No bleeding issues. No falls. PAST MEDICAL HISTORY Problem List: 1. Aortic valve disease. a. 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 2001 2. Reactive airways disease. 3. Prostate cancer. 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 He also developed an adjacent pelvic abscess that was percutaneously drained a. Resection. b. Complicated by DVT. c. Complicated by sepsis. d. [place] filter. 4. Ascending aorta 4.4cm 5. Hypothyroidism 6. Gi bleeding , cauterized 2022 at [facility] 7. Left lower lobe nodule CURRENT MEDICATIONS Current Outpatient Medications on File Prior to Visit Medication Sig Dispense Refill albuterol 90 mcg/actuation HFA aerosol inhaler inhaler INHALE 2 PUFF BY MOUTH EVERY 4 TO 6 HOURS ASNEEDED FOR COUGH/ WHEEZING OR FOR SHORTNESS OF BREATH KARTHIKEYAN AEROSPHERE 160-9-4.8 mcg/actuation HFA aerosol inhaler Inhale 2 Puffs as directed 2 times daily. levothyroxine (SYNTHROID) 50 mcg tablet Take 1 Tablet by mouth daily. montelukast (SINGULAIR) 10 mg tablet Take 1 Tablet by mouth daily. omeprazole (PRILOSEC) 20 mg capsule Take 1 Capsule by mouth daily. oxybutynin (DITROPAN-XL) 10 mg CR tablet Take 1 Tablet by mouth daily. venlafaxine (EFFEXOR) 75 mg tablet Take 1 Tablet by mouth daily. WARFARIN SODIUM (COUMADIN ORAL) Take by mouth. As directed No current facility-administered medications on file prior to visit. ALLERGIES No Known Allergies SOCIAL HISTORY reports that he quit smoking about 37 years ago. His smoking use included cigarettes. He started smoking about 54 years ago. He has never used smokeless tobacco. REVIEW [...] does not have insomnia. PHYSICAL EXAMINATION BP 104/60 (BP Cuff Location: Left arm, BP Patient Position: Sitting, BP Cuff Sizes: Adult, regular) Pulse 67 Wt 83.4 kg (183 lb 12.8 oz) SpO2 99% BMI 27.95 kg/m?? Physical Exam Constitutional: Appearance: Normal appearance. [...] A 12 lead EKG was performed today, 03/15/24 demonstrated sinus rhythm at 63 bpm. I reviewed the reports of the following tests: Echo performed at [facility] 2021: LVEF 55-60% AV functioning normally, mean gradient 7 Aorta 4.1 cm Echo performed today, 03/05/21: Aortic Valve: There was a St. Marvin mechanical aortic valve. Aortic Valve: AV Peak Gradient: 10mmHg. AV Mean Gradient: 6mmHg. AV Area VTI: 2.9. Aortic Valve: There was no aortic valve regurgitation. Left Ventricle: Left ventricular systolic function was mildly decreased with an ejection fraction of 45-50%. Left Ventricle: There was possible mild diffuse hypokinesis. Right Ventricle: The right ventricular cavity was normal in size. Right Ventricle: Right ventricular systolic function was normal. Aorta: The ascending aorta was mildly dilated at 4.4 cm. Echocardiogram performed 2012: Zio patch 04/01: Sinus rhythm average HR 65 bpm The most recent laboratory evaluation included the [...] RECOMMENDATIONS In summary, Dillan Al is a 74 y.o. male with aortic valve disease post St Marvin mechanical valve replacement. He is taking Coumadin. I focused our evaluation and discussion today on the following problems: 1) aortic valve disease post St Marvin mechanical valve replacement. FLAVIO 2.9, mean gradient 6. He is taking Coumadin. INR 2.5-3.5 Echo performed 2020 2) Hypothyroidism-on synthroid 3) Ascending aorta 4.4cm-no back pain or chest pain Echo yearly Control blood pressure and lipids 4) Productive cough-Left lung nodule-pneumonia several times Needs bronchoscopy scheduled-followed with pulmonary at [facility] 5) GI bleeding post cauterized, tolerating Coumadin PLAN: Echo for valve and ascending aorta-next year Cardiac CT scan for ascending aorta follow up Continue Coumadin, INR 2.5 to 3.5 Lipids are checked by PCP E consult to pulmonary-see scan from pulmonary at [facility]. I spent a total of 30 minutes on the date of this encounter meeting with the patient and reviewing documentation/coordinating care as described in the above note.This was separate from any proceduresperformed at the time of the visit. Thank you for allowing me to participate in his care. Fela Villegas NP 03/15/2024 15:52 documented in this encounter Plan of Treatment Upcoming Encounters Date Type Department Care Team (Late st Contact Info) Description 03/18/2025 14:00 EDT Ancillary Procedure [facility] Cardiology - [address] [place], [place] [phone] 03/18/2025 14:40 EDT Office Visit [facility] Cardiology [address] [place] [address] Fela Villegas NP 62 [facility] [address] [place] [address] Scheduled Orders Name Type Priority Associated Diagnoses Orde r Schedule TRANSTHORACIC ECHO (TTE) COMPLETE Echocardiography Routine Encounter for follow-up for aortic valve replacement Expected: 03/15/2024, Expires: 03/15/2026 documented as of this encounter Procedures Procedure Name Priority Date/Time Associated Diagnosis Comments ECG REPORT - SCANNED 03/18/2024 17:26 EDT EKG 12-LEAD Routine 03/15/2024 15:35 EDT Paroxysmal atrial fibrillation (HCC-CMS) documented in this encounter Results * ECG REPORT - SCANNED (03/18/2024 17:26 EDT) 03/18/2024 17:2 6 EDT Scan 2 Heel Seat Flap Stapler PROCEDURE/MINOR MARCO A GICAL ORDERABLES * EKG 12-LEAD (03/15/2024 15:35 EDT) 03/15/2024 15:3 5 EDT Narrative [facility] EKG - 03/16/2024 11:42 EDT ? [facility] ? Test Date: ?2024-03-15 Pat Name: ? DILLAN AL ? Department: ?? [facility] Card ? Room: ? Gender: ? Male ? Curtain Stretcher Assembler: ?? [id number] : ?1950 ? Requested By: GIULIA Mccormick Order Number: [id number] ? Kwadwo NICHOLSON: ?? ALVARO LECHUGA MD ? Measurements Intervals ?[place] ? Rate: ? 63 ? P: ?-5 ME: ? 187 ?QRS: ?-16 QRSD: ? 117 [...] Note Alvaro Lechuga MD - 03/16/2024 [facility] Test Date: 2024-03-15 Pat Name: DILLAN AL Department: [facility] Room: Gender: Male Curtain Stretcher Assembler: [id number] : 1950 Requested By: GIULIA Mccormick Order Number: [id number] Reading MD: ALVARO LECHUGA MD Measurements Intervals [place] Rate: 63 P: -5 ME: 187 QRS: -16 QRSD: 117 T: 30 QT: 400 QTc: 409 Interpretive Statements SINUS RHYTHM INFERIOR MYOCARDIAL INFARCTION , PROBABLY OLD Automated Interpretation. Provider Interpretation to follow. Compared to ECG 03/11/2022 15:27:57 Myocardial infarct finding now present I reviewed the tracing and have either agreed or edited the findings inthis report. Electronically Signed On 03-16-2024 11:42:49 EDT by ALVARO KNOTT. Fela Villegsa NP CARDIAC ECG ORDERABL ES [facility] EKG documented in this encounter Visit Diagnoses Diagnosis Paroxysmal atrial fibrillation ([facility])- Primary Atrial fibrillation Encounter for follow-up for aortic valve replacement Follow-up examination, following other surgery documented in this encounter Discontinued Medications Medication Sig Discontinue Reason Start Date End Da te cyclobenzaprine (FLEXERIL) 10 mg tablet Take 10 mg by mouth 2 times daily as needed. Therapy completed 03/15/2024 FLUTICASONE/SALMETEROL (ADVAIR DISKUS INHL) Inhale as directed 2 times daily. Therapy completed 03/15/[address] onto the skin daily. Therapy completed 03/15/2024 documented as of this encounter Historical Medications * This list may reflect changes made after this encounter. Medication Sig Dispensed Refills Start Date End Date oxybutynin (DITROPAN-XL) 10 mg CR tablet Take 1 Tablet by mouth daily. 08/16/2023 BREZTRI AEROSPHERE 160-9-4.8 mcg/actuation HFA aerosol inhaler Inhale 2 Puffs as directed 2 times daily. 03/01/2024 albuterol 90 mcg/actuation HFA aerosol inhaler inhaler INHALE 2 PUFF BY MOUTH EVERY 4 TO 6 HOURS NEEDED FOR COUGH/ WHEEZING OR FOR SHORTNESS OF BREATH 03/01/2024 added in this encounter Orders E-Consult Count Last Ordered Date First Orde red Date AMB ECONSULT PULMONOLGY OTHER 1 03/15/2024 documented in this encounter Care Teams Rubber Stamps And Dies Supervisor Relationship Specialty Start Date End Date Farnaz Pineda MD [address] [place] [address] PCP - General 11/18/09 Fela Villegas NP [address] [phone] Roller Mill Operator Cardiovascular Disease 03/12/22 documented as of this encounter
--- OUTSIDE RECORDS SUMMARY | 2024-04-20 15:10 | XMS_ITS | Encounter Summary ---
Author Organization [facility] Address [address] [place] [address] Care Team Providers Care Core Assembly Supervisor Name Role Phone Farnaz Pineda MD Primary Care Provider [phone] Encounter Details Date Type Department Care Team (Latest Contact Info) Description 07/02/2020 Travel Social History Tobacco Use Types Packs/Day Years Used Date Smoking Tobacco: Former Cigarettes 0 1986 Smokeless Tobacco: Never Alcohol Use Standard [...] 16:49 EDT documented as of this encounter Functional Status [...] No 10/07/2017 documented as of this encounter Plan of Treatment Upcoming Encounters Date Type Department Care Team (Late st Contact Info) Description 03/18/2025 14:00 EDT Ancillary Procedure [facility] Cardiology - [address] [place], [place] [phone] 03/18/2025 14:40 EDT Office Visit [facility] Cardiology [place] [address] [place] [address] Fela Villegas, PANKAJ 62 [facility] [address] [place] [address] documented as of this encounter Visit Diagnoses Not on filedocumented in this encounter Care Teams Core Assembly Supervisor Relationship Specialty Start Date End Date Farnaz Pineda MD [address] [place] [address] PCP - General 11/18/09 documented as of this encounter
--- OUTSIDE RECORDS SUMMARY | 2024-04-20 15:10 | XMS_ITS | Encounter Summary ---
Author Organization [facility] Address [address] [place] [address] Care Team Providers Care Wire Cutter Name Role Phone Farnaz Pineda MD Primary Care Provider [phone] Reason for Visit * Reason Comments Other AV disorder Encounter Details Date Type Department Care Team (Late st Contact Info) Description 03/20/2015 11:30 EDT Office Visit [facility] Cardiology - [address] [place], [place] [id number] Neo Madrid MD Aortic valve disorders (Primary Dx) Discharge Disposition: Auto Discharge Social History Tobacco Use Types Packs/Day Years [...] Sign Reading Time Taken Comments Blood Pressure 128/72 03/20/2015 1153 EDT Pulse 64 03/20/2015 1153 EDT Temperature - - Respiratory Rate - - Oxygen Saturation - - Inhaled Oxygen Concentration - - Weight 88.5 kg (195 lb) 03/20/2015 1153 EDT Height 172.7 cm (5' 7.99) 03/20/2015 1153 EDT Body Mass Index 29.66 03/20/2015 1153 EDT documented in this encounter Discharge Diagnoses Diagnosis 424.1 AORTIC VALVE DISORDER[ICD-9-CM] documented in this encounter Discharge Disposition Disposition Code Departure Means Destination Auto Discharge documented in this encounter Progress Notes * Neo Madrid MD - 03/31/[address] [facility] CARDIOLOGY March 20, 2015 Farnaz Pineda MD [address] [place] [address] RE: DILLAN AL : [address] Pineda: I saw Mr Al. I have followed him in the past for his aortic valve replacement with a St Marvin valve. Since I last saw him, which was almost 18 months ago, he has done well. He has had no shortness of breath. He has no chest pain. He has been maintaining his protime within 2.5 to 3.5. He has had no further DVT and is doing well. Apparently the bladder tumor seems to be responding. He is not having difficulty. I am now seeing him back in followup. Problem List: 1. Aortic valve disease. a. Status post aortic valve replacement (St Marvin). 2. Reactive airway disease. 3. Prostate cancer. a. Status post resection. b. Complicated by DVT. c. Complicated by sepsis. d. Berry filter. Current Meds: Aspirin 81 mg a day. Synthroid 50 mcg a day. Montelukast 10 mg a day. Venlafaxine 75 a day. Warfarin as directed. Physical Exam: He was alert, oriented x3 in no acute distress. Blood pressure 128/72, pulse 64 and regular. Lungs were clear. Cardiac examination: S1 and S2 were normal. There was a 2/6 systolic murmur along the left sternal border. There were normal clicking sounds of the valve. Mr Al is doing well. From cardiac standpoint, I do not think there is anything further we need to do. He has no symptoms suggestive of ischemia or congestive heart failure. I do not think further cardiac evaluation needs to be undertaken. I will see him back in another year's time. If he has further problems in the meantime, I would be happy to see him sooner. Thank you again for allowing me to see him and participate in his care. Sincerely, Neo Madrid MD 12 03 PM - Neo Madrid MD Dictation ID: [id number] cc: Farnaz Pineda MD, [address], [place] [address] * Neo Madrid MD - 03/20/2015 1203 EDT This office note has been dictated. documented in this encounter Plan of Treatment Upcoming Encounters Date Type Department Care Team (Late st Contact Info) Description 03/18/2025 14:00 EDT Ancillary Procedure [facility] Cardiology - [address] [phone] 03/18/2025 14:40 EDT Office Visit [facility] Cardiology - [address] [place], [place] [phone] Fela Villegas NP 62 [facility] [address] [place] [address] documented as of this encounter Visit Diagnoses Diagnosis Aortic valve disorders- Primary documented in this encounter Care Teams Wire Cutter Relationship Specialty Start Date End Date Farnaz Pineda MD [address] [place] [address] PCP - General 11/18/09 documented as of this encounter
--- OUTSIDE RECORDS SUMMARY | 2024-04-20 15:10 | XMS_ITS | Encounter Summary ---
Author Organization [facility] Address [address] [place] [address] Care Team Providers Care Airport Operations Manager Name Role Phone Farnaz Pineda MD Primary Care Provider [phone] Reason for Visit * Reason Comments Follow-up AVR Encounter Details Date Type Department Care Team (Late st Contact Info) Description 09/23/2011 10:45 EST Office Visit [facility] Cardiology - [address] [place] [address] Neo Madrid MD Aortic valve disorders (Primary Dx) Social History Tobacco Use Types [...] Sign Reading Time Taken Comments Blood Pressure 124/80 09/23/2011 1029 EST Pulse 66 09/23/2011 1029 EST Temperature - - Respiratory Rate - - Oxygen Saturation - - Inhaled Oxygen Concentration - - Weight 97.5 kg (215 lb) 09/23/2011 1029 EST Height - - Body Mass Index - - documented in this encounter Progress Notes * Neo Madrid MD - 09/27/2011 9417 EST RE: NAME: DILLAN AL : 1950 September 23, 2011 Farnaz Pineda MD [facility] [address] [facility], [address] [place] [address] Pineda: I saw Mr Al back in cardiology clinic. As you know, I have followed him over time for his previous aortic valve replacement and reactive airway disease. Since I last saw him, he has done very well. He has had no chest pain, no PND, no orthopnea. Problem List: 1. Status post AVR. a. [address] Marvin valve. 2. Reactive airway disease. Current Medications: Aspirin 81 mg a day. Advair Diskus. Singulair. Omeprazole 20 a day. Warfarin as directed. On physical exam, he was alert, oriented x3, in no acute distress. Blood pressure 124/80. Pulse was66 and regular. Lungs were clear. Cardiac examination S1 and S2 were normal. There is a 1/6 systolic murmur along the left sternal border with normal clicking sounds of the valve. There was no diastolic murmur. Extremities showed no edema. Mr Al, from cardiac standpoint, is doing well. He says he had a recent cholesterol done. If you have it and could forward that to me, I would be most appreciative. I will otherwise see him back inanother year. Should he have further problems in the meantime, I would be happy to see him sooner than that. Thank you again for allowing me to see him and participate in his care. Sincerely, Electronically Signed by Neo Madrid MD 10/06/2011 11:17 Neo Madrid MD - Neo Madrid MD - MR Job ID: SM Doc ID: [id number] Ext Doc ID: [id number] cc: Farnaz Pineda MD * Neo Madrid MD - 09/23/2011 1056 EST This office note has been dictated. documented in this encounter Plan of Treatment Upcoming Encounters Date Type Department Care Team (Late st Contact Info) Description 03/18/2025 14:00 EDT Ancillary Procedure [facility] Cardiology - [address] [place], [place] [phone] 03/18/2025 14:40 EDT Office Visit [facility] Cardiology - [address] [place], [place] [phone] Fela Villegas, PANKAJ 62 [facility] [address] [place] [address] documented as of this encounter Visit Diagnoses Diagnosis Aortic valve disorders- Primary documented in this encounter Care Teams Airport Operations Manager Relationship Specialty Start Date End Date Farnaz Pineda MD [address] [place] [address] PCP - General 11/18/09 documented as of this encounter
--- OUTSIDE RECORDS SUMMARY | 2024-04-20 15:10 | XMS_ITS | Encounter Summary ---
Author Organization [facility] Address [address] [place] [address] Care Team Providers Care Drug And Alcohol Treatment Specialist Name Role Phone Farnaz Pineda MD Primary Care Provider [phone] Fela Villegas CHIEF DESIGN BRANCH Unavailable [phone] Reason for Visit * (Routine/Next Available) - Receiving Office to Obtain Authorization Specialty Diagnoses / Procedures Referred By Berta tavera Referred To Contact Procedures CT OUTSIDE IMAGES ABDOMEN PELVIS Unknown, Provider, Referral ID Status Reason Start Date Expiration Date Visits Requested Visits Authorized [id number] Receiving Office to Obtain Authorization 03/22/2023 1 1 Encounter Details Date Type Department Care Team (Latest Contact Info) Description 03/22/2023 16:56 EDT - 03/22/2023 23:59 EDT Hospital Encounter [facility] Secondary [place] Discharge Disposition: Home or Self Care Social History Tobacco Use Types Packs/Day [...] No 10/07/2017 documented as of this encounter Medications at Time of Discharge Medication Sig Dispensed Refills Start Date End Date levothyroxine (SYNTHROID) 50 mcg tablet Take 1 Tablet by mouth daily. montelukast (SINGULAIR) 10 mg tablet Take 1 Tablet by mouth daily. omeprazole (PRILOSEC) 20 mg capsule Take 1 Capsule by mouth daily. venlafaxine (EFFEXOR) 75 mg tablet Take 1 Tablet by mouth daily. WARFARIN SODIUM (COUMADIN ORAL) Take by mouth. As directed cyclobenzaprine (FLEXERIL) 10 mg tablet Take 10 mg by mouth 2 times daily as needed. 03/15/2024 FLUTICASONE/SALMETEROL (ADVAIR DISKUS INHL) Inhale as directed 2 times daily. 03/15/[address] onto the skin daily. 03/15/2024 documented as of this encounter Discharge Disposition Disposition Code Departure Means Destination Home or Self Care documented in this encounter Plan of Treatment Upcoming Encounters Date Type Department Care Team (Late st Contact Info) Description 03/18/2025 14:00 EDT Ancillary Procedure [facility] Cardiology [address] [place], [place] [phone] 03/18/2025 14:40 EDT Office Visit [facility] Cardiology [facility] [place] [address] Fela Villegas NP 62 [facility] [address] [place] [address] documented as of this encounter Procedures Procedure Name Priority Date/Time Associated Diagnosis Comments CT OUTSIDE IMAGES ABDOMEN PELVIS Routine 03/22/2023 16:57 EDT documented in this encounter Results * CT OUTSIDE IMAGES ABDOMEN PELVIS (03/22/2023 16:57 EDT) Narrative 03/22/2023 16:57 EDT This is a non-reportable exam. Provider Unknown MD ACE OTHER IMAGING OR DERABLES documented in this encounter Visit Diagnoses Not on filedocumented in this encounter Care Teams Drug And Alcohol Treatment Specialist Relationship Specialty Start Date End Date Farnaz Pineda MD [address] [place] [address] PCP - General 11/18/09 Fela Villegas NP [address] [place] [phone] Home Aide Cardiovascular Disease 03/12/22 documented as of this encounter
--- OUTSIDE RECORDS SUMMARY | 2024-04-20 15:10 | XMS_ITS | Encounter Summary ---
Author Organization [facility] Address [address] [place] [address] Care Team Providers Care Physical Anthropologist Name Role Phone Farnaz Pineda MD Primary Care Provider [phone] Reason for Visit * Reason Comments Other aortic valve replace ment Encounter Details Date Type Department Care Team (Late st Contact Info) Description 09/28/2012 10:45 EST Office Visit [facility] Cardiology - [address] [place], [place] [id number] Neo Madrid MD Aortic valve disorders (Primary [...] Sign Reading Time Taken Comments Blood Pressure 118/74 09/28/2012 1047 EST Pulse 84 09/28/2012 1047 EST Temperature - - Respiratory Rate - - Oxygen Saturation - - Inhaled Oxygen Concentration - - Weight 98 kg (216 lb) 09/28/2012 1047 EST Height 172.7 cm (5' 8) 09/28/2012 1047 EST Body Mass Index 32.84 09/28/2012 1047 EST documented in this encounter Progress Notes * Neo Madrid MD - 10/04/2012 0941 EST RE: NAME: DILLAN AL : 1950 September 28, 2012 Farnaz Pineda MD [address], [address] [place] [address] Pineda: I saw Mr Al back in cardiology clinic. I have followed him for his previous known aortic valve disease, status post aortic valve replacement. Since I had last seen him, he has done well. He has had no chest pains, no PND and no shortness of breath. He does not get any regular exercise but otherwise is feeling well. Problem List: 1. Aortic valve disease. a. Status post aortic valve replacement. 2. Asthma/reactive airway disease. Current Medications: Aspirin 81 mg a day. Advair Diskus as directed. Synthroid 50 mcg a day. Singulair 10 mg a day. Omeprazole 20 mg a day. Testosterone once a day. Warfarin as directed. On physical exam, he was alert, oriented x3, in no acute distress. Blood pressure 118/74, pulse 84 and regular. Lungs were clear. Cardiac examination: S1 and S2 were normal. There was a 1/6 systolic murmur at the left sternal border. There was normal clicking sounds of the valve. There was no diastolic murmur, gallop or rub. Extremities showed no edema. Mr Al seems to be doing well from a cardiac standpoint. He is going to get a prostate biopsy presumably for an elevated PSA. He should stop his Coumadin 5 days in advance. He does not need a Lovenox bridge. I will see him back in a year's time. I urged him to get on a regular exercise program. If you have a recent lipid profile on him and could forward that to me, I would be most appreciative. Thank you again for allowing me to see him and participate in his care. Sincerely, Electronically Signed by Neo Madrid MD 10/06/2012 13:18 Neo Madrid MD - Neo Madrid MD - CD Job ID: SM Doc ID: [id number] Ext Doc ID: [id number] cc: Farnaz Pineda MD * Neo Madrid MD - 09/28/2012 1104 EST This office note has been dictated. documented in this encounter Plan of Treatment Upcoming Encounters Date Type Department Care Team (Late st Contact Info) Description 03/18/2025 14:00 EDT Ancillary Procedure [facility] Cardiology - [address] [place] [address] 03/18/2025 14:40 EDT Office Visit [facility] Cardiology - [address] [place] [address] Fela Villegas NP [address] [facility] [address] [place] [address] documented as of this encounter Visit Diagnoses Diagnosis Aortic valve disorders- Primary documented in this encounter Historical Medications * This list may reflect changes made after this encounter. Medication Sig Dispensed Refills Start Date End Date levothyroxine (SYNTHROID) 50 mcg tablet Take 1 Tablet by mouth daily. added in this encounter Care Teams Physical Anthropologist Relationship Specialty Start Date End Date Farnaz Pineda MD [address] [place] [address] PCP - General 11/18/09 documented as of this encounter
--- OUTSIDE RECORDS SUMMARY | 2024-04-20 15:10 | XMS_ITS | Encounter Summary ---
Author Organization [facility] Address [address] [place] [address] Care Team Providers Care Business Objects Name Role Phone Farnaz Pineda MD Primary Care Provider [phone] Fela Villegas BURR MACHINE OPERATOR Unavailable [phone] Reason for Visit * Reason Onset Date Comments GI Bleeding 03/22/2023 Encounter Details Date Type Department Care Team (Late st Contact Info) Description 03/22/2023 Telephone [facility] MED [address] [place], [place] [phone] Shonda Salter MD [address] [address] GI Bleeding Social History Tobacco Use Types Packs/Day Years [...] encounter Miscellaneous Notes * Telephone Encounter - Shonda Salter MD - 03/22/2023 1711 EDT Hospitalist Patient Transfer Request Requesting Facility: [facility] Requesting Provider: Dr. Urbano Date: 03/22/23 Time of Call: 17:11 History: 73 year old with AVR (coumadin), prior prostatectomy, no prior GI bleed history ~24 hours of brightred blood per rectum with on going bright red blood in the ED. No pain. No other real symptoms despite ongoing bleeding history. Case was discussed with Dr. Fonseca earlier today who said no urgent need for colonoscopy or transfer from his standpoint, and would recommend monitoring there with CTA abd/pelvis to look for acute targetable bleed. Vitals: HR 105, BP 95/63 (109/73 on arrival to ED), saturating well on room air Labs and Imaging: INR 2.3 WBC 12.5 H/H 12.8/40.3 from 1000, no repeats since then PLTs 274 Electrolytes normal Cr 1.6 No liver dz history, LFTs unremarkable Overall unremarkable CT abd/pelvis, no CTA done yet. Plan: - Recommend repeating H/H as has been about 6 hours since last value checked - Recommend CTA abd/pelvis to look for targetable intervention on bleed - If targetable bleed source, would engage with IR and likely transfer. If rapid drop in H/H to call back and engage for urgent/emergent transfer - Patient is not accepted to Adult Hospital Medicine service. Shonda Salter MD documented in this encounter Plan of Treatment Upcoming Encounters Date Type Department Care Team (Late st Contact Info) Description 03/18/2025 14:00 EDT Ancillary Procedure [facility] Cardiology - [address] [place] [id number] 03/18/2025 14:40 EDT Office Visit [facility] [place] [address] Fela Villegas NP 62 [facility] [address] [place] [address] documented as of this encounter Visit Diagnoses Not on filedocumented in this encounter Care Teams Business Objects Relationship Specialty Start Date End Date Farnaz Pineda MD [address] [place] [address] PCP - General 11/18/09 Fela Villegas NP [address] [address] Tool Rental Technician Cardiovascular Disease 03/12/22 documented as of this encounter
--- OUTSIDE RECORDS SUMMARY | 2024-04-20 15:10 | XMS_ITS | Encounter Summary ---
Author Organization [facility] Address [address] [place] [address] Care Team Providers Care Skin Installer Name Role Phone Farnaz Pineda MD Primary Care Provider [phone] Reason for Visit * Reason Comments Heart Problem Encounter Details Date Type Department Care Team (Late st Contact Info) Description 03/05/2021 15:00 EDT Office Visit [facility] Cardiology - [address] [phone] Fela Villegas NP 62 [facility] [address] [place] [address] S/P AVR (Primary Dx) Social History Tobacco Use Types Packs/Day Years Used Date Smoking Tobacco: Former Cigarettes 1 970 - 1986 Smokeless Tobacco: Never Alcohol Use [...] Sign Reading Time Taken Comments Blood Pressure 120/70 03/05/2021 1508 EDT Pulse 64 03/05/2021 1508 EDT Temperature - - Respiratory Rate - - Oxygen Saturation 96% 03/05/2021 1508 EDT Inhaled Oxygen Concentration - - Weight 90.7 kg (200 lb) 03/05/2021 1508 EDT Height - - Body Mass Index 30.41 03/05/2021 1502 EDT documented in this encounter [...] of this encounter Progress Notes * Fela Villegas, MECH[employer]IC [employer]UCK - 03/05/2021 1500 EDT DATE OF VISIT: 03/05/2021 CHIEF COMPLAINT: Aortic valve disease I had the pleasure of seeing Sylvain Rodgers in the [facility] cardiology clinic today for Aortic valve disease. Sylvain Rodgers is a 71 y.o. male was previously followed by Dr. [...] are therapeutic, 2.5-3.5. He is complaint Coumadin. PAST MEDICAL HISTORY Problem List: 1. Aortic valve disease. a. 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 2001 2. Reactive airways disease. 3. Prostate cancer. a. Resection. b. Complicated by DVT. c. Complicated by sepsis. d. [place] filter. 4. Ascending aorta 4.4cm CURRENT MEDICATIONS [...] HISTORY reports that he quit smoking about 34 years ago. His smoking use included cigarettes. [...] does not have insomnia. PHYSICAL EXAMINATION BP 120/70 (BP Cuff Location: Right arm, BP Patient Position: Sitting, BP Cuff Sizes: Adult, regular) Pulse 64 Wt 90.7 kg (200 lb) SpO2 96% BMI 30.41 kg/m?? Physical Exam Constitutional: He is oriented to person, place, and time and well-developed, well-nourished, and in no distress. Neck: No JVD present. Cardiovascular: Normal rate, regular rhythm and intact distal pulses. Exam reveals no gallop and nofriction rub. No murmur heard. Aortic valve click Pulmonary/Chest: Effort normal and breath sounds normal. He has no wheezes. He has no rales. Abdominal: Soft. Musculoskeletal: Normal range of motion. General: No edema. Neurological: He is alert and oriented to person, place, and time. Skin: Skin is warm and dry. Psychiatric: Affect normal. DATA I reviewed the reports of the following [...] 104 05/21/2002 ASSESSMENT AND RECOMMENDATIONS In summary, Sylvain Rodgers is a 71 y.o. male with aortic valve disease post [facility] Marvin mechanical valve replacement. He is taking Coumadin. I focused our evaluation and discussion today on the following problems: 1) aortic valve disease post [facility] Marvin mechanical valve replacement. FLAVIO 2.9, mean gradient 6. He is taking Coumadin. INR 2.5-3.5 Echo today demonstrated FLAVIO 2.9, mean gradient 6. 2) Hypothyroidism-on synthroid 3) Ascending aorta 4.4cm CT chest with and without Echo yearly Control blood pressure and lipids PLAN: 1 year follow up Cardiac CT scan for ascending aorta follow up Continue Coumadin I spent a total of 30 minutes on the date of this encounter meeting with the patient and reviewing documentation/coordinating care as described in the above note.This was separate from any proceduresperformed at the time of the visit. Thank you for allowing me to participate in his care. Fela Villegas APRN 03/05/2021 15:20 documented in this encounter Plan of Treatment Upcoming Encounters Date Type Department Care Team (Late st Contact Info) Description 03/18/2025 14:00 EDT Ancillary Procedure [facility] Cardiology - [address] [address] 03/18/2025 14:40 EDT Office Visit [facility] Cardiology - [address] [place], [place] [phone] Fela Villegas NP 62 [facility] [address] [place] [phone] documented as of this encounter Visit Diagnoses Diagnosis S/P AVR- Primary Heart valve replaced by other means documented in this encounter Care Teams Skin Installer Relationship Specialty Start Date End Date Farnaz Pineda MD [address] [place] [address] PCP - General 11/18/09 documented as of this encounter
--- OUTSIDE RECORDS SUMMARY | 2024-04-20 15:10 | XMS_ITS | Encounter Summary ---
Author Organization [facility] Address [address] [place] [address] Care Team Providers Care Granite Installer Name Role Phone Farnaz Pineda MD Primary Care Provider [phone] Reason for Visit * Reason Comments Heart Problem FUR, Aortic Valve Di sorder Encounter Details Date Type Department Care Team (Late st Contact Info) Description 07/03/2019 14:30 EDT Office Visit [facility] Cardiology - [address] [place], [place] [phone] Neo Madrid MD S/P AVR (Primary Dx); Aortic valve disorder Social History Tobacco Use Types Packs/Day Years [...] Reading Time Taken Comments Blood Pressure 122/78 07/03/2019 1425 EDT Pulse 66 07/03/2019 1425 EDT Temperature - - Respiratory Rate - - Oxygen Saturation 99% 07/03/2019 1425 EDT Inhaled Oxygen Concentration - - Weight 99.8 kg (220 lb) 07/03/2019 1425 EDT Height 172.7 cm (5' 8) 07/03/2019 1425 EDT Body Mass Index 33.45 07/03/2019 1425 EDT documented in this encounter [...] as of this encounter Progress Notes * Neo Madrid MD, MD - 07/03/2019 1430 EDT This office note has been dictated. * Neo Madrid MD, MD - 07/03/2019 0000 EDT [facility] CARDIOLOGY July 03, 2019 Farnaz Pineda MD [address], [address] [place] [address] RE: DILLAN AL : [address] Pineda: I saw Mr Al in cardiology clinic. I had seen him about 18 months ago. I have followed him for his aortic valve disease status post [facility] Marvin mechanical valve replacement. Since I have seen him, he has done very well. He has had no bleeding abnormalities. He has had no stroke. He has had no shortness of breath and gets a modest amount of exercise without difficulty. He now returns in followup. Problem List: 1. Aortic valve disease. a. 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 2. Reactive airways disease. 3. Prostate cancer. a. Resection. b. Complicated by DVT. c. Complicated by sepsis. d. [place] filter. Current Medications: Fluticasone/salmeterol twice per day. Levothyroxine 50 mcg a day. Montelukast 10 mg a day. Venlafaxine 75 mg a day. Warfarin as directed. Physical Exam: He was alert, oriented x3, in no acute distress. Blood pressure 122/78, pulse 66 andregular. Lungs were clear. Cardiac examination: S1 and S2 were normal. There were normal clicking sounds of the valve. There was no significant murmur, either systolic or diastolic. Mr Al is doing very well. I would continue him on his current medical regimen. We will see him back in clinic in another year. If he has further problems in the meantime, I would be happy to see him sooner. Thank you again for allowing me to see him and participate in his care. Sincerely, Neo Madrid MD 02 48 PM - Neo Madrid MD cn Dictation ID: [id number] cc: Farnaz Pineda MD, [address] [address] documented in this encounter Plan of Treatment Upcoming Encounters Date Type Department Care Team (Late st Contact Info) Description 03/18/2025 14:00 EDT Ancillary Procedure [facility] Cardiology - [address] [place] [address] 03/18/2025 14:40 EDT Office Visit [facility] Cardiology - [address] [place] [address] Fela Villegas NP 62 [facility] [address] [place] [address] documented as of this encounter Visit Diagnoses Diagnosis S/P AVR- Primary Heart valve replaced by other means Aortic valve disorder Aortic valve disorders documented in this encounter Discontinued Medications Medication Sig Discontinue Reason Start Date End Da te Aspirin 81 mg Tab Take 81 mg by mouth daily. 07/03/2019 documented as of this encounter Care Teams Granite Installer Relationship Specialty Start Date End Date Farnaz Pineda MD [address] [place] [address] PCP - General 11/18/09 documented as of this encounter
--- OUTSIDE RECORDS SUMMARY | 2024-04-20 15:10 | XMS_ITS | Encounter Summary ---
Author Organization [facility] Address [address] [place] [address] Care Team Providers Care Professor Of Environmental Science Name Role Phone Farnaz Pineda MD Primary Care Provider [phone] Reason for Visit * Cardiology (Routine) - Closed Specialty Diagnoses / Procedures Referred By Berta tavera Referred To Contact Cardiology Diagnoses H/O aortic valve replacement Procedures TRANSTHORACIC ECHO (TTE) COMPLETE Fela Villegas NP 62 [facility] [address] [place] [address] [facility] [address] [place] [address] [place] [address] Referral ID Status Reason Start Date Expiration Date Visits Re quested Visits Authorized [id number] Closed 07/04/2020 1 1 Encounter Details Date Type Department Care Team (Latest Contact Info) Description 03/05/2021 14:00 EDT Ancillary Procedure [facility] Cardiology - [address] [place] [address] H/O aortic valve replacement Social History Tobacco Use [...] Sign Reading Time Taken Comments Blood Pressure 132/81 03/05/2021 1502 EDT Pulse - - Temperature - - Respiratory Rate - - Oxygen Saturation - - Inhaled Oxygen Concentration - - Weight 98 kg (216 lb) 03/05/2021 1502 EDT Height 172.7 cm (5' 8) 03/05/2021 1502 EDT Body Mass Index 32.84 03/05/2021 1502 EDT documented in this encounter [...] Info) Description 03/18/2025 14:00 EDT Ancillary Procedure [facility] Cardiology [address] [place] [address] 03/18/2025 14:40 EDT Office Visit [facility] Cardiology [address] [place], [place] [phone] Fela Villegas NP 62 [facility] [address] [place] [phone] documented as of this encounter Procedures Procedure Name Priority Date/Time Associated Diagnosis Comments TRANSTHORACIC ECHO (TTE) COMPLETE Routine 03/05/2021 2:46 EDT H/O aortic valve replacement documented in [...] color Doppler.The study was interpreted by [facility]. Pertinent images and digital data are archived for permanent storage and are available for subsequent review. Scanning was performed from the apical, parasternal, subcostal and suprasternal acoustic windows. Overall the study quality was adequate. Images were obtained using cardiac ultrasound machine EPIQ #[id number]. Fela Villegas NP CARDIAC ECHO ORDERAB LES documented in this encounter Visit Diagnoses Diagnosis H/O aortic valve replacement Heart valve replaced by other means documented in this encounter Care Teams Professor Of Environmental Science Relationship Specialty Start Date End Date Farnaz Pineda MD [address] [place] [address] PCP - General 11/18/09 documented as of this encounter
--- OUTSIDE RECORDS SUMMARY | 2024-04-20 15:10 | XMS_ITS | Encounter Summary ---
Author Organization [facility] Address [address] [place] [address] Care Team Providers Care Production Cost Estimator Name Role Phone Farnaz Pineda MD Primary Care Provider [phone] Encounter Details Date Type Department Care Team (Late st Contact Info) Description 10/01/2013 Results Only [facility] Services - [facility] ([facility]) [address] [place], [place] [address] Bartolome Waddell MD [address] [place], [place] [address] Social History Tobacco Use Types Packs/Day Years [...] Info) Description 03/18/2025 14:00 EDT Ancillary Procedure [facility] Cardiology - [facility] [place] [address] [place] [address] 03/18/2025 14:40 EDT Office Visit [facility] Cardiology - [place] [address] [place] [address] Fela Villegas, PANKAJ 62 [facility] [address] [place] [address] documented as of this encounter Procedures Procedure Name Priority Date/Time Associated Diagnosis Comments SURGICAL PATHOLOGY Routine 10/01/2013 15 :38 EST documented in this encounter Results * SURGICAL PATHOLOGY (10/01/2013 15:38 EST) Pathology Report: SURGICAL PATHOLOGY REPORT Reports generated via electronic interface contain original data; however they are lacking the format of the original report. Caution should be taken when reading/interpreting unformatted reports. Name: ? DILLAN AL ? Accession #: ? [id number] ? : ? 1950 (Age: 63) ??M ? Collect Date: ? 10/01/2013 ? Location: ? [facility] ? Receive Date: ? 10/01/2013 ? Provider: BARTOLOME WADDELL MD Copy to: FARNAZ PINEDA MD ? Final Pathologic Diagnosis: A. COLON, SIGMOID, POLYP, BIOPSY: - ??Tubular adenoma. B. STOMACH, ANTRUM, BIOPSY: - ??Gastric antral mucosa with reactive (chemical) gastropathy with superimposed mild chronic gastritis. - ??Immunohistochemical staining for Helicobacter pylori is negative. C. STOMACH, BODY, BIOPSY: - ??Gastric body mucosa with mild chronic gastritis. - ??Immunohistochemical staining for Helicobacter pylori is negative. Comment: ANTIBODY(CLONE)(BLOCK) :RESULT H PYLORI (RABBIT MONOCLONAL (SP48), [place]) (block B1 and C1): Negative NOTE: ??One or more of the reagents used in immunohistochemical testing in this case may not have been cleared or approved by the U.S. Food and Drug Administration (FDA). ??The FDA has determined that such clearance or approval is not necessary. ??These tests are used for clinical purposes. ??They should not be regarded as investigational or for research. ??These reagents' performance characteristics have been determined by [facility]. ??The positive and negative controls worked appropriately. This laboratory is certified under the Clinical Laboratory Improvement Amendments of 1988 (CLIA-88) as qualified to perform high complexity clinical laboratory tests Document reviewed and electronically signed by: STAR GEE MD Report ??Date: 10/08/2013 11:33 By the signature above, the attending physician certifies that he/she has personally conducted a gross and/or microscopic examination of the described specimens and rendered or confirmed the above diagnosis. Specimen(s) Received: A. ?Sigmoid polyp B. ? Gastric antrum C. ? Gastric body Clinical History: Heme (+) stool, H/O colon adenoma Gross Description: A. ?Received in formalin labelled with proper patient identification (initials N, R) and 1. sigmoid polyp is a single pink-garcia tissue fragment (0.4 x 0.3 x 0.2 cm). Submitted intact in A1. B. ?Received in formalin labelled with proper patient identification (initials N, R) and 2. gastric antrum are two pink-garcia tissues (0.4 x 0.3 x 0.2 cm and 0.4 x 0.4 x 0.3 cm). Entirely submitted in B1. C. ?Received in formalin labelled with proper patient identification (initials N, R) and 3. gastric body are two pink-garcia tissues (averaging 0.5 x 0.3 x 0.2 cm). Entirely submitted in C1. Sola Buckley 10/01/2013 03:53 PM End of Report [facility] 10/01/2013 15:3 8 EST 10/01/2013 15:38 EST Bartolome Waddell MD PATHOLOGY ORDERABLES [facility] [address] [place] [address] documented in this encounter Visit Diagnoses Not on filedocumented in this encounter Care Teams Production Cost Estimator Relationship Specialty Start Date End Date Farnaz Pineda MD [address] [place] [address] PCP - General 11/18/09 documented as of this encounter
--- OUTSIDE RECORDS SUMMARY | 2024-04-20 15:10 | XMS_ITS | Encounter Summary ---
Author Organization [facility] Address [address] [place] [address] Care Team Providers Care White Metal Corrosion Proofer Name Role Phone Farnaz Pineda MD Primary Care Provider [phone] Fela Villegas RN [facility] Unavailable [phone] Reason for Visit * Cardiology (Routine/Next Available) - Receiving Office to Obtain Authorization Specialty Diagnoses / Procedures Referred By Berta tavera Referred To Contact Procedures OUTSIDE IMAGES FOR ARCHIVE - ECHO Unknown, Provider, Referral ID Status Reason Start Date Expiration Date Visits Requested Visits Authorized [id number] Receiving Office to Obtain Authorization 06/10/2022 1 1 Encounter Details Date Type Department Care Team (Latest Contact Info) Description 06/09/2022 - 06/09/2022 23:59 EDT Hospital Encounter [facility] Radiology - Main [place] [address] [place], [place] [address] Discharge Disposition: Home or Self Care Social [...] Info) Description 03/18/2025 14:00 EDT Ancillary Procedure [facility] Cardiology [address] [place], [place] [id number] 03/18/2025 14:40 EDT Office Visit [facility] Cardiology [facility] [address] [place], [place] [id number] Fela Villegas NP [address] [facility] [address] [place] [address] documented as of this encounter Procedures Procedure Name Priority Date/Time Associated Diagnosis Comments OUTSIDE IMAGES FOR ARCHIVE - ECHO Routine 06/10/2022 16:31 EDT documented in this encounter Results * OUTSIDE IMAGES FOR ARCHIVE - ECHO (06/10/2022 16:31 EDT) Narrative [facility] - 06/10/2022 16:31 EDT This is a non-reportable exam. Provider Unknown MD CARDIAC ECHO ORDERAB LES [facility] documented in this encounter Visit Diagnoses Not on filedocumented in this encounter Care Teams White Metal Corrosion Proofer Relationship Specialty Start Date End Date Farnaz Pineda MD [address] [place] [id number] PCP - General 11/18/09 Fela Villegas NP [address] [place] [phone] Acquisition Editor Cardiovascular Disease 03/12/22 documented as of this encounter
--- OUTSIDE RECORDS SUMMARY | 2024-04-20 15:10 | XMS_ITS | Encounter Summary ---
Author Organization [facility] Address [address] [place] [address] Care Team Providers Care Pointer Machine Operator Name Role Phone Farnaz Pineda MD Primary Care Provider [phone] Encounter Details Date Type Department Care Team (Late st Contact Info) Description 10/05/2012 Results Only [facility]- [facility] [phone] Kyler Vance MD [address] [address] Social History Tobacco Use Types Packs/Day Years [...] Encounters Date Type Department Care Team (Late Contact Info) Description 03/18/2025 14:00 EDT Ancillary Procedure [facility] Cardiology - [address] [place] [address] 03/18/2025 14:40 EDT Office Visit [facility] Cardiology - [facility] [place] [address] Fela Villegas NP [address] [facility] [address] [place] [address] documented as of this encounter Procedures Procedure Name Priority Date/Time Associated Diagnosis Comments SURGICAL PATHOLOGY Routine 10/05/2012 21 :27 EST documented in this encounter Results * SURGICAL PATHOLOGY (10/05/2012 21:27 EST) Pathology Report: SURGICAL PATHOLOGY REPORT Reports generated via electronic interface contain original data; however they are lacking the format of the original report. Caution should be taken when reading/interpreting unformatted reports. Name: ? DILLAN AL ? Accession #: ? [id number] ? : ? 1950 (Age: 62) ??M ? Collect Date: ? 10/05/2012 ? Location: ? [facility] ? Receive Date: ? 10/05/2012 ? Provider: KYLER VANCE MD Copy to: FARNAZ PINEDA MD ? Final Pathologic Diagnosis: A. ?Prostate, right apex, lateral, needle biopsy: 1. ?Adenocarcinoma. ??See comment. ? - Histologic grade: ??- Primary (predominant) Gallant pattern: ??Grade 3. ??- Secondary (worst remaining) Shasha pattern: ??Grade 3. ??- Total Shasha score: ??6. - Number of cores positive/total number of cores: ??10/10. - 9% of prostatic tissue involved by tumor. - Perineural invasion: ??Not identified. ?? B. 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 ? - Histologic grade: ??- Primary (predominant) Shasha pattern: ??Grade 3. ??- Secondary (worst remaining) Shasha pattern: ??Grade 3. ??- Total Gallant score: ??6. - Number of cores positive/total number of cores: ??10/10. - 9% of prostatic tissue involved by tumor. - Perineural invasion: ??Not identified. ?2. ?? 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 ?? C. ?Prostate, right mid, lateral, needle biopsy: 1. ?Benign prostatic glands and stroma. D. ?Prostate, right mid, medial, needle biopsy: 1. ?Benign prostatic glands and stroma with focal atrophy. E. ?Prostate, right base, lateral, needle biopsy: 1. ?Benign prostatic glands and stroma. F. ?Prostate, right base, medial, needle biopsy: 1. ?Benign prostatic glands and stroma with focal acute prostatitis. G. ?Prostate, left apex, lateral, needle biopsy: 1. ?Benign prostatic glands and stroma. H. ?Prostate, left apex, medial, needle biopsy: 1. ?Benign prostatic glands and stroma with focal atrophy. ? I. ?Prostate, left mid, lateral, needle biopsy: 1. ?Adenocarcinoma. ??See comment. ? - Histologic grade: ??- Primary (predominant) Gallant pattern: ??Grade 4. ??- Secondary (worst remaining) Gallant pattern: ??Grade 4. ??- Total Gallant score: ??8. - Number of cores positive/total number of cores: ??10/10. - 19% of prostatic tissue involved by tumor. - Perineural invasion: ??Not identified. - Periprostatic fat: ??Not applicable. ?2. ?? 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 J. ?? Prostate, left mid, medial, needle biopsy: ? 1. ?? Adenocarcinoma. ? - Histologic grade: ??- Primary (predominant) Shasha pattern: ??Grade 4. ??- Secondary (worst remaining) Gallant pattern: ??Grade 5. ??- Total Gallant score: ??9. - Number of cores positive/total number of cores: ??/. - 10% of prostatic tissue involved by tumor. - Perineural invasion: ??Not identified. ? K. ?? Prostate, left base, lateral, needle biopsy: ? 1. ?? Benign prostatic glands and stroma. L. ?? Prostate, left base, medial, needle biopsy: ? 1. ?? Benign prostatic glands and stroma. ?? Comment: ? Raw Scales Operator sections of this case were reviewed at the intradepartmental consultation conference. ??Immunohistochemical staining (positive/negative control appropriate) confirms the morphologic impression of focal invasive cancer in blocks (A) and (B). (Dr. Gee)/sima Block ?Antibody (Clone) ?Result ? A, B ?P63 (BC4A4, [employer]) ?Focal loss of myoepithelial cells ? Keratin 34BE12 (K-9)(34BE12, [employer]) ?Focal loss of myoepithelial cells ? P504S (Rabbit Monoclonal,clone 13H4,[employer]) ??Focal positive staining ? NOTE: ??One or more of the reagents [...] reagents' performance characteristics have been determined by [facility]. ??This laboratory is certified under the Clinical Laboratory Improvement Amendments of 1988 (CLIA-88) as qualified to perform high complexity clinical laboratory testing. ?? Document reviewed and electronically signed by: STAR GEE MD Report ??Date: 10/13/2012 12:17 By the signature above, the attending physician certifies that he/she has personally conducted a gross and/or microscopic examination of the described specimens and rendered or confirmed the above diagnosis. Specimen(s) Received: A. ?Rt apex lat (#1) B. ? Rt apex med (#2) C. ? Rt mid lat (#3) D. ? Rt mid med (#4) E. ? Rt base lat (#5) F. ? Rt base med (#6) ? G. ?Lt apex lat (#7) H. ? Lt apex med (#8) I. ? Lt mid lat (#9) J. ? Lt mid med (#10) K. ? Lt base lat (#11) L. ? Lt base med (#12) Clinical History: ? Elevated PSA Gross Description: ? Received in formalin labelled Vishal, Dillan and Rt apex lat is a austin-white cylindrical soft tissue fragment measuring 1.6 cm in length and less than 0.1 cm in diameter. ??The specimen is entirely submitted as (A). Received in formalin labelled Vishal, Dillan and Rt apex medial are two austin-white cylindrical soft tissue fragments measuring 0.3 and 1.1 cm in length and averaging less than 0.1 cm in diameter. ??The specimen is entirely submitted as (B). Received in formalin labelled Vishal, Dillan and Rt mid lat is a austin-white cylindrical soft tissue fragment measuring 1.2 cm in length and less than 0.1 cm in diameter. ??The specimen is entirely submitted as (C). Received in formalin labelled Vishal, Dillan and Rt mid medial is a austin-white cylindrical soft tissue fragment measuring 1.4 cm in length and less than 0.1 cm in diameter. ??The specimen is entirely submitted as (D). Received in formalin labelled Vishal, Dillan and Rt base lat is a austin-white cylindrical soft tissue fragment measuring 1.0 cm in length and less than 0.1 cm in diameter. ??The specimen is entirely submitted as (E). Received in formalin labelled Vishal, Dillan and Rt base medial is a austin-white cylindrical soft tissue fragment measuring 1.3 cm in length and less than 0.1 cm in diameter. ??The specimen is entirely submitted as (F). Received in formalin labelled Vishal, Dillan and Lt apex lat is a austin white cylindrical soft tissue fragment measuring 1.4 cm in length and less than 0.1 cm in diameter. ??The specimen is entirely submitted as (G). Received in formalin labelled Vishal, Dillan and Lt apex medial is a austin-white cylindrical soft tissue fragment measuring 1.8 cm in length and less than 0.1 cm in diameter. ??The specimen is entirely submitted as (H). Received in formalin labelled Vishal, Dillan and Lt mid lat is a austin-white cylindrical soft tissue fragment measuring 1.6 cm in length and less than 0.1 cm in diameter. ??The specimen is entirely submitted as (I). Received in formalin labelled Vishal, Dillan and Lt mid medial is a austin-white cylindrical soft tissue fragment measuring 1.5 cm in length and less than 0.1 cm in diameter. ??The specimen is entirely submitted as (J). Received in formalin labelled Vishal, Dillan and Lt base lat is a austin-white cylindrical soft tissue fragment measuring 1.2 cm in length and less than 0.1 cm in diameter. ??The specimen is entirely submitted as (K). Received in formalin labelled Vishal, Dillan and Lt base medial is a austin-white cylindrical soft tissue fragment measuring 1.4 cm in length and less than 0.1 cm in diameter. ??The specimen is entirely submitted as (L). ??(Delvin Milton)/[facility] End of Report [facility] 10/05/2012 21:2 7 EST 10/05/2012 21:27 EST Kyler Vance MD PATHOLOGY ORDERABLES [facility] [address] [place] [address] documented in this encounter Visit Diagnoses Not on filedocumented in this encounter Care Teams Pointer Machine Operator Relationship Specialty Start Date End Date Farnaz Pineda MD [address] [place] [address] PCP - General 11/18/09 documented as of this encounter
--- OUTSIDE RECORDS SUMMARY | 2024-04-20 15:10 | XMS_ITS | Encounter Summary ---
Author Organization [facility] Address [address] [place] [address] Care Team Providers Care Glass Glazier Name Role Phone Farnaz Pineda MD Primary Care Provider [phone] Fela Villegas SMELTER CHARGER Unavailable [phone] Reason for Referral * Referral (Routine/Next Available) - Receiving Office to Obtain Authorization Specialty Diagnoses / Procedures Referred By Berta tavera Referred To Contact Diagnoses ILD (interstitial lung disease) ([facility]) Procedures ADULT BRONCHOSCOPY Felicia Taveras MBBS [address] [address] [facility] Endoscopy [address] [place] [address] Referral ID Status Reason Start Date Expiration Date Visits Requested Visits Authorized [id number] Receiving Office to Obtain Authorization 04/05/2024 1 1 Encounter Details Date Type Department Care Team (Late st Contact Info) Description 04/05/[address] [facility] [place] [facility] [address] [place] [phone] Felicia Taveras MBBS [address] [phone] ILD (interstitial lung disease) ([facility]) (Primary Dx) Social History Tobacco [...] No 10/07/2017 documented as of this encounter H&P Notes * Felicia Taveras MBBS - 04/05/2024 1253 EDT Bronchoscopy ordered Progress Notes by Felicia Taveras MBBS (04/04/2024 14:00) documented in this encounter Plan of Treatment Upcoming Encounters Date Type Department Care Team (Late st Contact Info) Description 03/18/2025 14:00 EDT Ancillary Procedure [facility] Cardiology - [facility] [place] [address] 03/18/2025 14:40 EDT Office Visit [facility] Cardiology - [facility] [place] [address] Fela Villegas NP [address] [facility] [address] [place] [address] documented as of this encounter Results * ADULT BRONCHOSCOPY (04/16/2024 11:00 EDT) Anatomical [...] scanned media. Lidocaine 1% administered in a [id number] fashion. ?? Endobronchial findings: There was significant [...] I personally spent 22 minutes in continuous [id number] attendance with the patient during the administration [...] AM By Freddy Taveras Felicia [facility] OCEDURE ORDERABLES documented in this encounter Visit Diagnoses Diagnosis ILD (interstitial lung disease) (HCC-CMS)- Primary Postinflammatory pulmonary fibrosis ILD (interstitial lung disease) (HCC-CMS) Postinflammatory pulmonary fibrosis documented in this encounter Care Teams Glass Glazier Relationship Specialty Start Date End Date Farnaz Pineda MD [address] [place] [address] PCP - General 11/18/09 Fela Villegas NP [address] [place] [phone] Development Mgr Cardiovascular Disease 03/12/22 documented as of this encounter
--- OUTSIDE RECORDS SUMMARY | 2024-04-20 15:10 | XMS_ITS | Encounter Summary ---
Author Organization [facility] Address [address] [place] [address] Care Team Providers Care Station Air Traffic Control Specialist Name Role Phone Farnaz Pineda MD Primary Care Provider [phone] Fela Villegas ELECTRIC RANGE ASSEMBLER Unavailable [phone] Encounter Details Date Type Department Care Team (Late st Contact Info) Description 04/04/2024 15:25 EDT Phlebotomy Only [facility] - Outpatient Phlebotomy Drawing [address] [place] [address] Lab, [facility] Op Phlebotomy Moderate persistent reactive airway disease without complication; Chronic cough; Abnormal CT of the chest; ILD (interstitial lung disease) ([facility]) Social History Tobacco Use Types Packs/Day Years [...] as of this encounter Miscellaneous Notes * Result Encounter Note - Felicia Taveras MBBS - 04/04/2024 1525 EDT LENIN Narayan, Reviewed the blood tests done recently. Creatinine is mildly elevated. Creatinine is indicator of kidney function. We will repeat it when you come for the bronchoscopy and see the trend. We can decide next steps based on that. Hemoglobin was fine but the red blood cell size was increasedwhich can happen in some vitamin deficiencies. Something to discuss with your PCP. The eosinophil count was higher than usual which is suggestive of asthma. So continue the inhaler as planned. Some of the blood tests to screen for rheumatological diseases were normal. Some are still pending. Will see you on the day of bronchoscopy. Regards Freddy Taveras documented in this encounter Plan of Treatment Upcoming Encounters Date Type Department Care Team (Late st Contact Info) Description 03/18/2025 14:00 EDT Ancillary Procedure [facility] - [address] [place] [address] 03/18/2025 14:40 EDT Office Visit [facility] [address] [place], [place] [id number] Fela Villegas NP [address] [facility] [address] [place] [address] documented as of this encounter Procedures Procedure Name Priority Date/Time Associated Diagnosis Comments SSA/SSB PANEL Routine 04/04/2024 15:[address] of the chest ILD (interstitial lung disease) ([facility]) CCP ANTIBODIES Routine 04/04/2024 15:[address] of the chest ILD (interstitial lung disease) ([facility]) [employer] ANTIBODY, IGG Routine 04/04/2024 15: [address] of the chest ILD (interstitial lung disease) ([facility]) SCL 70 ANTIBODY, IGG, SERUM Routine 04/04/2024 15:[address] of the chest ILD (interstitial lung disease) ([facility]) DOUBLE STRANDED DNA ANTIBODY, IGG Routine 04/04/2024 15:[address] of the chest ILD (interstitial lung disease) ([facility]) COMPLETE BLOOD COUNT AND DIFFERENTIAL Routine 04/04/2024 15:32 EDT Moderate persistent reactive airway disease without complication Chronic cough Abnormal CT of the chest ILD (interstitial lung disease) ([facility]) ANTI NUCLEAR AB (OPAL), IFA Routine 04/04/2024 15:[address] of the chest ILD (interstitial lung disease) ([facility]) BASIC METABOLIC PANEL (BMP) Routine 04/04/2024 15:32 EDT Moderate persistent reactive airway disease without complication Chronic cough Abnormal CT of the chest ILD (interstitial lung disease) ([facility]) documented in this encounter Results * SSA/SSB PANEL (04/04/2024 15:32 EDT) Ro52 Anitbody, IgG <2.3 <20.0 CU 2023 11:35 EDT [facility] Comment:Results were obtaine d with the MayomiA Flash Ro52 chemiluminescent immunoassay. Values obtained with different manufacturers' assay methods must not be used interchangeably. Ro60 Antibody, IgG <7.0 <20.0 CU 2023 11:35 EDT [facility] Comment:Results were obtaine d with the MayomiA Flash Ro60 chemiluminescent immunoassay. Values obtained with different manufacturers' assay methods must not be used interchangeably. SSB Antibody, IgG <3.3 <20.0 CU 024 11:35 EDT [facility] Comment:Results were obtaine d with the MayomiA Flash SS-B chemiluminescent immunoassay. Values obtained with different manufacturers' assay methods must not be used interchangeably. Blood VENOUS BLOOD / Unknown Venipuncture / Unknown 04/04/2024 15:32 EDT 04/04/2024 16:26 EDT Felicia Taveras [facility] IMMUN OLOGY AND SEROLOGY ORDERABLES [facility] [address] [place] [address] * SCL 70 ANTIBODY, IGG, SERUM (04/04/2024 15:32 EDT) Scl 70 Ab, IgG, S <0.2 <1.0 (Negative ) U 04/05/2024 17:04 EDT [facility] Comment: Test Performed by: [facility] [address] [place] [id number] Exchange Teller: Cherrie Fernandez Ph.D.; CLIA# [id number] Blood VENOUS BLOOD / Unknown Venipuncture / Unknown 04/04/2024 15:32 EDT 04/04/2024 16:30 EDT Felicia Taveras [facility] IMMUN OLOGY AND SEROLOGY ORDERABLES Performing Organization Address City/[facility]/ZIP Co de Phone Number [facility] [address] [place] [address] * [employer] ANTIBODY, IGG (04/04/2024 15:32 EDT) [employer] Antibody, IgG <6.0 <20.0 CU 024 11:35 EDT [facility] Comment:Results were obtaine d with the GeoQuip QUANTA Flash TE[employer] chemilumenscent immunoassay. Values obtained with different manufacturers' assay methods may not be used interchangeably. Blood VENOUS BLOOD / Unknown Venipuncture / Unknown 04/04/2024 15:32 EDT 04/04/2024 16:26 EDT Felicia Taveras [facility] IMMUN OLOGY AND SEROLOGY ORDERABLES [facility] [address] [place] [address] * CCP ANTIBODIES (04/04/2024 15:32 EDT) [facility] CCP Antibodies <2.5 <5.0 U/mL 04/05/2024 8:07 EDT [facility] Blood VENOUS BLOOD / Unknown Venipuncture / Unknown 04/04/2024 15:32 EDT 04/04/2024 16:26 EDT Felicia Taveras [facility] IMMUN OLOGY AND SEROLOGY ORDERABLES Performing Organization Address [facility] Co de Phone Number [facility] [address] [place] [id number] * ANTI NUCLEAR AB (OPAL), IFA (04/04/2024 15:32 EDT) [facility] OPAL Interpretation Negative Negative 2023 14:28 EDT [facility] Comment:No titer performed, OPAL Screen is negative. Blood VENOUS BLOOD / Unknown Venipuncture / Unknown 04/04/2024 15:32 EDT 04/04/2024 16:26 EDT Narrative [facility] - 04/05/2024 14:28 EDT Results were obtained with the Kodablefen NOVA Lite HEp-2 OPAL Kit by indirect immunofluorescence. Felicia GOLDEN IMMUN OLOGY AND SEROLOGY ORDERABLES Performing Organization Address [facility]/ZIP Co de Phone Number [facility] [address] [place] [phone] * DOUBLE STRANDED DNA ANTIBODY, IGG (04/04/2024 15:32 EDT) [facility] dsDNA Ab, IgG <22.0 <27.0 IU/mL 04/05/2024 11:35 EDT [facility] Comment: Negative: <27.0 IU/mL Indeterminate: 27.0 - 35.0 IU/mL Positive: >35.0 IU/mL Results were obtained with MayomiA Flash dsDNA chemiluminescent immunoassay. Values obtained with different manufacturers' assay methods may not be used interchangeably. Blood VENOUS BLOOD / Unknown Venipuncture / Unknown 04/04/2024 15:32 EDT 04/04/2024 16:26 EDT Felicia DELEON IMMUN OLOGY AND SEROLOGY ORDERABLES [facility] [address] [place] [address] * (ABNORMAL) BASIC METABOLIC PANEL (BMP) (04/04/2024 15:32 EDT) Sodium 138 136 - 145 mmol/L 04/04/2024 17:01 [facility] Potassium 4.7 3.5 - 5.0 mmol/L 04/04/2024 17:01 [facility] Chloride 104 96 - 110 mmol/L 04/04/2024 17:01 [facility] CO2 Total 27 22 - 32 mmol/L 04/04/2024 17:01 [facility] Anion Gap 7 5 - 14 mmol/L 04/04/2024 17:01 [facility] Glucose 74 70 - 99 mg/dl 04/04/2024 17:01 [facility] Calcium 9.1 8.5 - 10.5 mg/dL 04/04/2024 17:01 [facility] BUN 22 10 - 26 mg/dL 04/04/2024 17:01 [facility] Creatinine 1.38(H) 0.66 - 1.25 mg/dL 04/04/2024 17:01 [facility] eGFR 54(L) >60 mL/min/1.73 m2 04/04/2024 17:01 [facility] Blood VENOUS BLOOD / Unknown Venipuncture / Unknown 04/04/2024 15:32 EDT 04/04/2024 16:28 EDT Felicia DELEON CHEMI STRY & BLOOD GAS ORDERABLES [facility] [address] [place] [address] * (ABNORMAL) COMPLETE BLOOD COUNT AND DIFFERENTIAL (04/04/2024 15:32 EDT) WBC 8.87 4.00 - 10.40 K/cmm 04/04/2024 16:26 [facility] RBC 4.25(L) 4.36 - 5.78 M/cmm 04/04/2024 16:26 [facility] Hemoglobin 13.2(L) 13.8 - 17.3 g/dL 04/04/2024 16:26 [facility] HCT 42.2 39.5 - 50.2 % 04/04/2024 16:26 [facility] MCV 99(H) 81 - 95 fL 04/04/2024 16:26 [facility] MCH 31.1 27.6 - 33.0 pg 04/04/2024 16:26 [facility] MCHC 31.3(L) 32.8 - 36.4 g/dL 04/04/2024 16:26 [facility] RDW-CV 15.6(H) <14.2 % 04/04/2024 16:26 [facility] RDW-SD 56.7(H) <46.0 fl 04/04/2024 16:26 [facility] PLT 205 141 - 377 K/cmm 04/04/2024 16:26 [facility] MPV 10.0 9.5 - 12.7 fL 04/04/2024 16:26 [facility] % Neutrophils 71.5 % 04/04/2024 16:26 [facility] % Lymphocytes 13.4 % 04/04/2024 16:26 [facility] % Monocytes 7.2 % 04/04/2024 16:26 [facility] % Eosinophils 6.7 % 04/04/2024 16:26 [facility] % Basophils 0.9 % 04/04/2024 16:26 [facility] % Immature Grans 0.3 <0.9 % 04/04/20 16:26 [facility] Absolute Neutrophils 6.34 2.20 - 8.85 K/cmm 04/04/2024 16:26 [facility] Absolute Lymphocytes 1.19 1.09 - 3.30 K/cmm 04/04/2024 16:26 [facility] Absolute Monocytes 0.64 0.10 - 0.80 K/cmm 04/04/2024 16:26 [facility] Absolute Eosinophils 0.59 0.03 - 0.61 K/cmm 04/04/2024 16:26 [facility] ABS Basophils 0.08 0.01 - 0.11 K/cmm 04/04/2024 16:26 [facility] Absolute Immature Grans 0.03 0.00 - 0.06 K/cmm 04/04/2024 16:26 [facility] Type of Differential: Auto 04/04/2024 16:26 [facility] Blood VENOUS BLOOD / Unknown Venipuncture / Unknown 04/04/2024 15:32 EDT 04/04/2024 16:22 EDT Felicia NERI GES & DNA PROBE ORDERABLES [facility] [address] [place] [id number] documented in this encounter Visit Diagnoses Diagnosis Moderate persistent reactive airway disease without complication Chronic cough Cough Abnormal CT of the chest Nonspecific (abnormal) findings on radiological and other examination of other intrathoracic organs ILD (interstitial lung disease) ([facility]) Postinflammatory pulmonary fibrosis documented in this encounter Care Teams Station Air Traffic Control Specialist Relationship Specialty Start Date End Date Farnaz Pineda MD [address] [place] [address] PCP - General 11/18/09 Fela Villegas NP [address] [place] [phone] Granite [employer]isher Machine Cardiovascular Disease 03/12/22 documented as of this encounter
--- OUTSIDE RECORDS SUMMARY | 2024-04-20 15:10 | XMS_ITS | Encounter Summary ---
Author Organization [facility] Address [address] [place] [address] Care Team Providers Care Warehouse Shipper Name Role Phone Farnaz Pineda MD Primary Care Provider [phone] Reason for Visit * Reason Comments Other AV replacement Encounter Details Date Type Department Care Team (Late st Contact Info) Description 08/28/2013 10:[address] [facility] - [address] [place] [address] Neo Madrid MD Aortic valve [...] Reading Time Taken Comments Blood Pressure 124/80 08/28/2013 0959 EST Pulse 64 08/28/2013 0959 EST Temperature - - Respiratory Rate - - Oxygen Saturation - - Inhaled Oxygen Concentration - - Weight 95.7 kg (211 lb) 08/28/2013 0959 EST Height 172.7 cm (5' 8) 08/28/2013 0959 EST Body Mass Index 32.08 08/28/2013 0959 EST documented in this encounter Discharge Diagnoses Diagnosis 424.1 AORTIC VALVE DISORDER[ICD-9-CM] documented in this encounter Progress Notes * Neo Madrid MD - 08/28/2013 1252 EST [facility] August 28, 2013 Farnaz Pineda MD [address] [place] [address] RE: DILLAN AL : [address] Pineda: I saw Mr Al. I had seen him last September. As you know, this past winter he underwent surgery for prostate cancer. He had quite a complicated subsequent course. 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 Apparently, this pseudoaneurysm also resulted in venous stasis. He developed a DVT in his left leg. Because he was on Coumadin at that point, they decided to put a Sulphur filter in. Subsequent to that, he developed fever, chills, sweats and was found to be septic. The organism during the sepsis is not clear to me, although he did have positive blood cultures. He was subsequently treated with IV and then oral antibiotics for about 6 weeks. He has gradually recovered from that and has now been feeling quite well. He has had no fever, chills, sweats, shortness of breath, dizziness or blackouts. Problem List: 1. Aortic valve disease. a. Status post aortic valve replacement. 2. Asthma/reactive airways disease. 3. Prostate cancer. a. Status post resection. b. Complication of DVT. c. Complication of sepsis. d. Berry filter. Current Medications: Aspirin 81 mg a day. Flexeril 10 mg twice a day. Advair as directed. Levothyroxine 50 mcg a day. Singulair 10 mg a day. Omeprazole 20 a day. Testosterone daily. Venlafaxine 75 a day. Warfarin as directed. Physical Exam: He was alert, oriented x3, in no acute distress. Blood pressure 124/80, pulse 64 andregular. Lungs were clear. Cardiac examination: S1 and S2 were normal. There were normal clicking sounds of the valve. There was a 1/6 systolic ejection-type murmur. Extremities showed no edema. He had no diastolic murmur. Mr Al is doing well from a cardiac standpoint. There is no evidence of endocarditis. Clearly, ifhe had had endocarditis, it would have developed by now. He had had a BRANDY at the time of his sepsisas well. From a cardiac standpoint, I do not think there is anything further we need to do. I wouldjust follow him along, continue him on his anticoagulant therapy. I will plan to see him back in another year's time. If he has further problems in the meantime, I would be happy to see him sooner. Thank you again for allowing me to see him and participate in his care. Sincerely, Neo Madrid MD 10 53 AM - Neo Madrid MD ln Dictation ID: [id number] cc: Farnaz Pineda MD, [address], [address], [place] [address] * Neo Madrid MD - 08/28/2013 1053 EST This office note has been dictated. documented in this encounter Plan of Treatment Upcoming Encounters Date Type Department Care Team (Late st Contact Info) Description 03/18/2025 14:00 EDT Ancillary Procedure [facility] - [address] [place] [address] 03/18/2025 14:40 EDT Office Visit [facility] - [address] [place] [address] Fela Villegas, PANKAJ [address] [facility] [address] [place] [address] documented as of this encounter Visit Diagnoses Diagnosis Aortic valve disorders- Primary documented in this encounter Historical Medications * This list may reflect changes made after this encounter. Medication Sig Dispensed Refills Start Date End Date venlafaxine (EFFEXOR) 75 mg tablet Take 1 Tablet by mouth daily. added in this encounter Care Teams Warehouse Shipper Relationship Specialty Start Date End Date Farnaz Pineda MD [address] [place] [id number] PCP - General 11/18/09 documented as of this encounter
--- OUTSIDE RECORDS SUMMARY | 2024-04-20 15:10 | XMS_ITS | Encounter Summary ---
Author Organization [facility] Address [address] [place] [address] Care Team Providers Care Perinatal Instructor Name Role Phone Farnaz Pineda MD Primary Care Provider [phone] Fela Villegas TECHNICAL TRANSLATOR Unavailable [phone] Reason for Visit * Reason Comments New Patient Visit Uses rescue inhaler BID prior to the Breztri. * Referral (Routine) - Authorization Not Required Specialty Diagnoses / Procedures Referred By [facility] Referred To Contact Pulmonary Disease Diagnoses Abnormal findings on diagnostic imaging of other specified body structures Chronic cough Janel Curtis MD [address] [place] [address] [address] [place] [address] [facility] [address] [place] [id number] Referral ID Status Reason Start Date Expiration Date Visits Requested Visits Authorized [id number] Authorization Not Required 1 1 Encounter Details Date Type Department Care Team (Late st Contact Info) Description 04/04/2024 14:00 EDT Office Visit [facility] Pulmonology [address] [place] [address] [phone] Felicia Taveras MBBS [address] [facility], [facility] [address] [place] [address] Moderate persistent reactive airway disease without complication (Primary Dx); Chronic cough; Abnormal CT of the chest; ILD (interstitial lung disease) ([facility]) Social History Tobacco Use Types Packs/Day Years [...] Reading Time Taken Comments Blood Pressure 122/78 04/04/2024 1410 EDT Pulse 67 04/04/2024 1410 EDT Temperature 36.3 ??C (97.3 ??F) 04/04/2024 1410 EDT Respiratory Rate 20 04/04/2024 1410 EDT Oxygen Saturation 97% 04/04/2024 1410 EDT Inhaled Oxygen Concentration - - Weight 87 kg (191 lb 11.2 oz) 04/04/2024 1410 ED T Height 172.7 cm (5' 8) 04/04/2024 1410 EDT Body Mass Index 29.15 04/04/2024 1410 EDT documented in this encounter Functional Status [...] No 10/07/2017 documented as of this encounter Patient Instructions * Patient Instructions* Felicia Taveras MBBS - 04/04/2024 14:00 EDT Continue breztri inhaler as prescribed Discussed about bronchoscopy/ bronchoalveolar lavage / transbronchial biopsy/endobronchial biopsy Discussed about the risks of the procedure Warfarin to be stopped 7 days prior to procedure Bridging with Lovenox - last dose of lovenox at least 24 hours prior to procedure Will discuss plan to restart warfarin after the bronchoscopy Will evaluate with CBC , BMP, OPAL, anti DS- DNA, Rh factor, anti- CCP , SSA/SSB antibodies/ scl-70,SPECIAL CRIMES INVESTIGATOR ab documented in this encounter Progress Notes * Felicia Taveras MBBS - 04/04/2024 1400 EDT Images from the original note were not included. Pulmonary Clinic Note PCP: Farnaz Pineda This note may be in part documented using TelePharm dictation software. Please forgive any errors, omissions or typos that may result from use of dictation. Assessment Assessment & Plan Sylvain Rodgers is a 74 y.o. male who presents today for New Patient Visit (Uses rescue inhaler BID prior to the Breztri. ) . Pertinent medical history includes, but is not limited to h/o AVR, on warfarin. # Chronic cough: suspicion of post viral syndrome vs asthma vs ILD (NSIP vs OP Vs IPAF). Is alreadyimproving. But PFT showing restrictive lung disease and CT chest showing persistent mild GGO in [place]. - Asthma - possible etiology, has improved after starting breztri. But no response to oral steroids, no extra pulm allergic symptoms. Will continue breztri and evaluate with differential count (abs eos count) - post viral syndrome - the GGO in the [place] could be resolving viral infection. But per report it isnot improving in [address] chest. Since the diagnosis is still unclear and the GGO in [place] persistent on repeat ct chest will evaluatewith bronchoscopy/ bal/ tbbx/endobronchial bx to assess for inflammatory vs infectious causes. Willevaluate with screen for rheumatological disease which can cause pneumonitis. Low suspicion for UACS. Though GERD related cough is possible - no response to PPI trial. Will consider 24 hr esophageal ph monitoring if not improving. Will evaluate with CBC with diff and BMP to assess for other systemic disease which could cause cough. # Restrictive lung disease This is most likely extra-pulmonary restriction considering the elevated RV/TLC ration and elevatedKCO Has elevated left hemidiaphragm on ct chest - if not improving will consider fluoroscopy and sniff test ILD causing restriction is less likely since the area involved is minimal # suspicion of LUZ ELENA There is suspicion of LUZ ELENA (stop bang 01/15- snoring, witnessed apnea, male, age), but patient not willing for evaluation at this time. Will check with serum co2 to assess for evidence of chronic hypoventilation , especially in the setting of left hemidiaphragm paresis. 1. Moderate persistent reactive airway disease without complication 2. Chronic cough 3. Abnormal CT of the chest 4. ILD (interstitial lung disease) ([facility]) Instructions to Patient Patient Instructions Continue breztri inhaler as prescribed Discussed about bronchoscopy/ bronchoalveolar lavage / transbronchial biopsy/endobronchial biopsy Discussed about the risks of the procedure Warfarin to be stopped 7 days prior to procedure Bridging with Lovenox - last dose of lovenox at least 24 hours prior to procedure Will discuss plan to restart warfarin after the bronchoscopy Will evaluate with CBC , BMP, OPAL, anti DS- DNA, Rh factor, anti- CCP , SSA/SSB antibodies/ scl-70,SPECIAL CRIMES INVESTIGATOR ab Return in about 6 months (around 10/04/2024). Subjective History/Interval Events Patient is complaining of productive cough since August 2023. It was insidious in onset. Initially it was very severe and progressive now it is gradually improved over the past few weeks. In August patient went to urgent care and was treated with antibiotics and steroids. It did not help the cough at all. The cough was episodic, occurring multiple times a day, usually lasts few minutes, and improved when clear sputum was coughed up. Initially it was more at night. Over the past few weeks the frequency of cough has decreased to probably once a day. He had severe cough last night after a very long time. Initially cough was very severe and was causing cough micturition. But now that the severity of the cough has improved. He has symptoms of acid reflux. No specific aggravating factor hasbeen noted for the cough. But the cough seems to occur with exertion. There is no positional variation or seasonal variation. There is no specific relieving factor though after starting best 3 the cough has improved. Patient has air purifier at home now-but it has not helped the cough according to him. Was accompanied by . Associated with dyspnea on exertion which has improved with breztri. Review of Systems Constitutional: Negative for chills, fever, malaise/fatigue and weight loss. HENT: Negative for congestion. No rhinorrhea Eyes: No itchy /watery eyes Respiratory: Negative for hemoptysis. Cardiovascular: Negative for chest pain, palpitations, orthopnea and leg swelling. Gastrointestinal: Negative for constipation, diarrhea and heartburn. Genitourinary: Negative for hematuria. Musculoskeletal: Negative for joint pain. Skin: Negative for rash. Neurological: Negative for tingling and weakness. Endo/Heme/Allergies: Negative for environmental allergies. Objective Findings: BP 122/78 (BP Cuff Location: Left arm, BP Patient Position: Sitting, BP Cuff Sizes: Adult, regular) Pulse 67 Temp 36.3 ??C (97.3 ??F) (Temporal) Resp 20 Ht 172.7 cm (68) Wt 87 kg (191 lb 11.2 oz) SpO2 97% BMI 29.15 kg/m?? Physical Exam Constitutional: General: He is not in acute distress. Appearance: He is not diaphoretic. HENT: Nose: No mucosal edema. Right Sinus: No maxillary sinus tenderness. Left Sinus: No maxillary sinus tenderness. Cardiovascular: Rate and Rhythm: Normal rate and regular rhythm. Heart sounds: No murmur heard. Pulmonary: Breath sounds: Normal breath sounds. No wheezing or rales. Abdominal: Palpations: Abdomen is soft. Tenderness: There is no abdominal tenderness. Musculoskeletal: Right lower leg: No edema. Left lower leg: No edema. Lymphadenopathy: Cervical: No cervical adenopathy. Skin: Nails: There is no clubbing. Pulmonary History Objective mMRC 0: Dyspnea with only strenuous exercise Home O2/NIV none Social History 1 ppd *17 years 17 pack years Quit Alcohol: - Other Drugs: - Family History family history is not on file. 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 In addition there is mild patchy infiltrate elsewhere in the left lung involvingupper lobe and lingular segment. Dilated thoracic aorta-4.6 cm. 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 There is a new 9X 6 mm nodular infiltrate in the anterior segment of the left upper lobe as well as some persistent groundglass infiltrate in the left upper lobe. Large hiatal hernia noted Cardiac Imaging - Labs Abs Eos Lab Results Component Value Date EOSABS 0.59 04/04/2024 EOSABS 0.34 06/24/2002 Hgb Lab Results Component Value Date HGB 13.2 (L) 04/04/2024 HGB 10.9 (L) 06/24/2002 HCO2 Lab Results Component Value Date CO2 27 04/04/2024 CO2 26 06/22/2002 CO2 28 05/21/2002 NTproBNP No results found for: NTBNP Outpatient Encounter Medications as of 04/04/2024: albuterol 90 mcg/actuation HFA aerosol inhaler inhaler, INHALE 2 PUFF BY MOUTH EVERY 4 TO 6 HOURS NEEDED FOR COUGH/ WHEEZING OR FOR SHORTNESS OF BREATH atorvastatin (LIPITOR) 20 mg tablet, 20 mg, oral, QHS BREZTRI AEROSPHERE 160-9-4.8 mcg/actuation HFA aerosol inhaler, 2 Puff, inhalation, BID levothyroxine (SYNTHROID) 50 mcg tablet, 50 mcg, oral, DAILY montelukast (SINGULAIR) 10 mg tablet, 10 mg, oral, DAILY omeprazole (PRILOSEC) 20 mg capsule, 20 mg, oral, DAILY oxybutynin (DITROPAN-XL) 10 mg CR tablet, 10 mg, oral, DAILY venlafaxine (EFFEXOR) 75 mg tablet, 75 mg, oral, DAILY WARFARIN SODIUM (COUMADIN ORAL), Take by mouth. As directed Thank you for the consult PANCHO Villanueva Pulmonary Attending [facility] documented in this encounter Plan of Treatment Upcoming Encounters Date Type Department Care Team (Treva rwen Contact Info) Description 03/18/2025 14:00 EDT Ancillary Procedure [facility] Cardiology - [facility] [address] [place] [address] 03/18/2025 14:40 EDT Office Visit [facility] Cardiology - [facility] [address] [place] [address] Fela Villegas NP [address] [facility] [address] [place] [address] documented as of this encounter Procedures Procedure Name Priority Date/Time Associated Diagnosis Comments RHEUMATOID SCREEN/TITRE Routine 04/04/2024 15:[address] of the chest ILD (interstitial lung disease) ([facility]) documented in this encounter Results * RHEUMATOID SCREEN/TITRE (04/04/2024 15:32 EDT) Rheumatoid Factor <8.6 <12.0 IU/mL 04/04/2024 21:53 EDT [facility] Blood VENOUS BLOOD / Unknown Venipuncture / Unknown 04/04/2024 15:32 EDT 04/04/2024 16:26 EDT Felicia DELEON CHEMI STRY & BLOOD GAS ORDERABLES [facility] [address] [place] [address] * SSA/SSB PANEL (04/04/2024 15:32 EDT) Ro52 Anitbody, IgG <2.3 <20.0 CU 2023 11:35 EDT [facility] Comment:Results were obtaine d with the Ultimate ShopperA Flash Ro52 chemiluminescent immunoassay. Values obtained with different manufacturers' assay methods must not be used interchangeably. Ro60 Antibody, IgG <7.0 <20.0 CU 2023 11:35 EDT [facility] Comment:Results were obtaine d with the Ultimate ShopperA Flash Ro60 chemiluminescent immunoassay. Values obtained with different manufacturers' assay methods must not be used interchangeably. SSB Antibody, IgG <3.3 <20.0 CU 024 11:35 EDT [facility] Comment:Results were obtaine d with the Ultimate ShopperA Flash SS-B chemiluminescent immunoassay. Values obtained with different manufacturers' assay methods must not be used interchangeably. Blood VENOUS BLOOD / Unknown Venipuncture / Unknown 04/04/2024 15:32 EDT 04/04/2024 16:26 EDT Felicia Taveras [facility] SEROLOGY ORDERABLES [facility] [address] [place] [address] * SCL 70 ANTIBODY, IGG, SERUM (04/04/2024 15:32 EDT) Scl 70 Ab, IgG, S <0.2 <1.0 (Negative ) U 04/05/2024 17:04 EDT [facility] Comment: Test Performed by: [facility] - [address] [address] Rn Ent: Cherrie Fernandez Ph.D.; CLIA# [id number] Blood VENOUS BLOOD / Unknown Venipuncture / Unknown 04/04/2024 15:32 EDT 04/04/2024 16:30 EDT Felicia Taveras [facility]OLOG[facility] ORDERABLES [facility] [address] [place] [address] * SPECIAL CRIMES INVESTIGATOR ANTIBODY, IGG (04/04/2024 15:32 EDT) SPECIAL CRIMES INVESTIGATOR Antibody, IgG <6.0 <20.0 CU 024 11:35 EDT [facility] Comment:Results were obtaine d with the Werfen QUANTA Flash SPECIAL CRIMES INVESTIGATOR chemilumenscent immunoassay. Values obtained with different manufacturers' assay methods may not be used interchangeably. Blood VENOUS BLOOD / Unknown Venipuncture / Unknown 04/04/2024 15:32 EDT 04/04/2024 16:26 EDT Felicia Taveras [facility] SEROLOGY ORDERABLES Performing Organization Address [facility] Co de Phone Number [facility] [address] [place] [id number] * CCP ANTIBODIES (04/04/2024 15:32 EDT) CCP Antibodies <2.5 <5.0 U/mL 04/05/2024 8:07 EDT [facility] Blood VENOUS BLOOD / Unknown Venipuncture / Unknown 04/04/2024 15:32 EDT 04/04/2024 16:26 EDT Felicia Taveras [facility]MM[facility] SEROLOGY ORDERABLES Performing Organization Address [facility] de Phone Number [facility] [address] [place] [address] * ANTI NUCLEAR AB (OPAL), IFA (04/04/2024 15:32 EDT) OPAL Interpretation Negative Negative 2023 14:28 EDT [facility] Comment:No titer performed, OPAL Screen is negative. Blood VENOUS BLOOD / Unknown Venipuncture / Unknown 04/04/2024 15:32 EDT 04/04/2024 16:26 EDT Narrative [facility] - 04/05/2024 14:28 EDT Results were obtained with the Ventrix NOVA Lite HEp-2 OPAL Kit by indirect immunofluorescence. Felicia Taveras [facility] SEROLOGY ORDERABLES Performing Organization Address [facility] Co de Phone Number [facility] [address] [place] [address] * DOUBLE STRANDED DNA ANTIBODY, IGG (04/04/2024 15:32 EDT) [facility] dsDNA Ab, IgG <22.0 <27.0 IU/mL 04/05/2024 11:35 EDT [facility] Comment: Negative: <27.0 IU/mL Indeterminate: 27.0 - 35.0 IU/mL Positive: >35.0 IU/mL Results were obtained with Ultimate ShopperA Flash dsDNA chemiluminescent immunoassay. Values obtained with different manufacturers' assay methods may not be used interchangeably. Blood VENOUS BLOOD / Unknown Venipuncture / Unknown 04/04/2024 15:32 EDT 04/04/2024 16:26 EDT Felicia DELEON IMMUN OLOGY AND SEROLOGY ORDERABLES [facility] [address] [place] [address] * (ABNORMAL) BASIC METABOLIC PANEL (BMP) (04/04/2024 15:32 EDT) [facility] Sodium 138 136 - 145 mmol/L 04/04/2024 17:01 [facility] Potassium 4.7 3.5 - 5.0 mmol/L 04/04/2024 17:01 [facility] Chloride 104 96 - 110 mmol/L 04/04/2024 17:01 [facility] CO2 Total 27 22 - 32 mmol/L 04/04/2024 17:01 [facility] Anion Gap 7 5 - 14 mmol/L 04/04/2024 17:01 [facility] Glucose 74 70 - 99 mg/dl 04/04/2024 17:01 [facility] Calcium 9.1 8.5 - 10.5 mg/dL 04/04/2024 17:01 [facility] BUN 22 10 - 26 mg/dL 04/04/2024 17:01 [facility] Creatinine 1.38(H) 0.66 - 1.25 mg/dL 04/04/2024 17:01 [facility] eGFR 54(L) >60 mL/min/1.73 m2 04/04/2024 17:01 [facility] Blood VENOUS BLOOD / Unknown Venipuncture / Unknown 04/04/2024 15:32 EDT 04/04/2024 16:28 EDT Felicia DELEON CHEMI STRY & BLOOD GAS ORDERABLES [facility] [address] [place] [address] * (ABNORMAL) COMPLETE BLOOD COUNT AND DIFFERENTIAL (04/04/2024 15:32 EDT) WBC 8.87 4.00 - 10.40 K/cmm 04/04/2024 16:26 [facility] RBC 4.25(L) 4.36 - 5.78 M/cmm 04/04/2024 16:26 [facility] Hemoglobin 13.2(L) 13.8 - 17.3 g/dL 04/04/2024 16:26 [facility] HCT 42.2 39.5 - 50.2 % 04/04/2024 16:26 [facility] MCV 99(H) 81 - 95 fL 04/04/2024 16:26 [facility] MCH 31.1 27.6 - 33.0 pg 04/04/2024 16:26 [facility] MCHC 31.3(L) 32.8 - 36.4 g/dL 04/04/2024 16:26 [facility] RDW-CV 15.6(H) <14.2 % 04/04/2024 16:26 [facility] RDW-SD 56.7(H) <46.0 fl 04/04/2024 16:26 [facility] PLT 205 141 - 377 K/cmm 04/04/2024 16:26 [facility] MPV 10.0 9.5 - 12.7 fL 04/04/2024 16:26 [facility] % Neutrophils 71.5 % 04/04/2024 16:26 [facility] % Lymphocytes 13.4 % 04/04/2024 16:26 [facility] % Monocytes 7.2 % 04/04/2024 16:26 [facility] % Eosinophils 6.7 % 04/04/2024 16:26 [facility] % Basophils 0.9 % 04/04/2024 16:26 [facility] % Immature Grans 0.3 <0.9 % 04/04/20 16:26 [facility] Absolute Neutrophils 6.34 2.20 - 8.85 K/cmm 04/04/2024 16:26 [facility] Absolute Lymphocytes 1.19 1.09 - 3.30 K/cmm 04/04/2024 16:26 [facility] Absolute Monocytes 0.64 0.10 - 0.80 K/cmm 04/04/2024 16:26 [facility] Absolute Eosinophils 0.59 0.03 - 0.61 K/cmm 04/04/2024 16:26 [facility] ABS Basophils 0.08 0.01 - 0.11 K/cmm 04/04/2024 16:26 [facility] Absolute Immature Grans 0.03 0.00 - 0.06 K/cmm 04/04/2024 16:26 [facility] Type of Differential: Auto 04/04/2024 16:26 [facility] Blood VENOUS BLOOD / Unknown Venipuncture / Unknown 04/04/2024 15:32 EDT 04/04/2024 16:22 EDT Felicia DELEON PACKA GES & DNA PROBE ORDERABLES [facility] [address] [place] [address] documented in this encounter Visit Diagnoses Diagnosis Moderate persistent reactive airway disease without complication- Primary Chronic cough Cough Abnormal CT of the chest Nonspecific (abnormal) findings on radiological and other examination of other intrathoracic organs ILD (interstitial lung disease) ([facility]) Postinflammatory pulmonary fibrosis documented in this encounter Care Teams Perinatal Instructor Relationship Specialty Start Date End Date Farnaz Pineda MD [address] [place] [address] PCP - General 11/18/09 Fela Villegas NP [address] [place] [phone] Fire Investigator Cardiovascular Disease 03/12/22 documented as of this encounter
--- OUTSIDE RECORDS SUMMARY | 2024-04-20 15:10 | XMS_ITS | Encounter Summary ---
Author Organization [facility] Address [address] [place] [address] Care Team Providers Care Granulating Machine Operator Name Role Phone Farnaz Pineda MD Primary Care Provider [phone] Encounter Details Date Type Department Care Team (Late st Contact Info) Description 09/24/2016 Results Only [facility] [phone] Rudy Riojas, DO [address] [place] [address] Social History Tobacco Use Types Packs/Day Years [...] [facility] [place] [address] [place] [address] 03/18/2025 14:40 EDT Office Visit [facility] - [facility] [place] [address] Fela Villegas NP [address] [facility] [address] [place] [address] documented as of this encounter Procedures Procedure Name Priority Date/Time Associated Diagnosis Comments SURGICAL PATHOLOGY Routine 09/24/2016 8:46 EST documented in this encounter Results * SURGICAL PATHOLOGY (09/24/2016 8:46 EST) Pathology Report: SURGICAL PATHOLOGY REPORT Reports generated via electronic interface contain original data; however they are lacking the format of the original report. Caution should be taken when reading/interpretin g unformatted reports. Name: ? DILLAN AL ? Accession #: ? [id number] ? : ? 1950 (Age: 66) ??M ? Collect Date: ? 09/24/2016 ? Location: ? [facility] ? Receive Date: ? 09/25/2016 ? Provider: RUDY RIOJAS DO Copy to: KATHLEEN PINEDA MD ? Final Pathologic Diagnosis: STOMACH, ANTRUM, BIOPSY: - ??Gastric antral mucosa with reactive (chemical) gastropathy and mild chronic inflammation. See comment. - ??No histological evidence of H. pylori on H&E stain. Comment: ----- Immunoperoxidase staining was performed on this case to further characterize the lesion. ? ANTIBODY(CLONE)(BLO CK):RESULT H. pylori (Rabbit Monoclonal (SP48), [place]) (1): ??Negative NOTE: ??One or more of the reagents used in immunoperoxidase testing in this case may not have been cleared or approved by the U.S. Food and Drug Administration (FDA). ??The FDA has determined that such clearance or approval is not necessary. ??These tests are used for clinical purposes. ??They should not be regarded as investigational or for research. ??These reagents' performance characteristics have been determined by the [facility]. ??The positive and negative controls worked appropriately. ??If immunoperoxidase staining has been performed on alcohol fixed cytology specimens, which has not been fully validated, the assays should be interpreted with caution and correlated with clinical data. ??This laboratory is certified under the Clinical Laboratory Improvement Amendments of 1988 (CLIA-88) as qualified to perform high complexity clinical laboratory testing. ?? ___ Document reviewed and electronically signed by: BITA HICKS MD Report ??Date: 09/28/2016 11:23 By the signature above, the attending physician certifies that he/she has personally conducted a gross and/or microscopic examination of the described specimens and rendered or confirmed the above diagnosis. Specimen(s) Received: Gastric antral bxs Clinical History: Anemia Gross Description: ? Received in formalin labelled with proper patient identification (initials N, R) and gastric antral bx are four pink-garcia tissues (0.2 x 0.2 x 0.1 cm to 0.4 x 0.3 x 0.1 cm). Entirely submitted in block 1. KAYY Swift (ASCP) 09/27/2016 9:20 AM End of Report [facility] 09/24/2016 8:46 EST 09/25/2016 8:46 EST Rudy Riojas DO PATHOLOGY ORDERABLES [facility] [address] [place] [address] documented in this encounter Visit Diagnoses Not on filedocumented in this encounter Care Teams Granulating Machine Operator Relationship Specialty Start Date End Date Farnaz Pineda MD [address] [place] [address] PCP - General 11/18/09 documented as of this encounter
--- OUTSIDE RECORDS SUMMARY | 2024-04-20 15:10 | XMS_ITS | Encounter Summary ---
Author Organization [facility] Address [address] [place] [address] Care Team Providers Care Moderate Needs Teacher Name Role Phone Farnaz Pineda MD Primary Care Provider [phone] Fela Villegas EXTRACT WRINGER Unavailable [phone] Reason for Referral * Referral (Routine/Next Available) - Receiving Office to Obtain Authorization Specialty Diagnoses / Procedures Referred By Berta tavera Referred To Contact Diagnoses ILD (interstitial lung disease) ([facility]) Procedures ADULT BRONCHOSCOPY Felicia Taveras MBBS [address] [phone] [facility] [address] [place] [id number] Referral ID Status Reason Start Date Expiration Date Visits Requested Visits Authorized [id number] Receiving Office to Obtain Authorization 04/05/2024 1 1 Reason for Visit * Referral (Routine/Next Available) - Receiving Office to Obtain Authorization Specialty Diagnoses / Procedures Referred By Berta tavera Referred To Contact Diagnoses ILD (interstitial lung disease) ([facility]) Procedures ADULT BRONCHOSCOPY Felicia Taveras MBBS [address] [phone] [facility] [address] [place] [address] Referral ID Status Reason Start Date Expiration Date Visits Requested Visits Authorized [id number] Receiving Office to Obtain Authorization 04/05/2024 1 1 Encounter Details Date Type Department Care Team (Late st Contact Info) Description 04/16/2024 9:35 EDT - 04/16/2024 9:37 EDT Hospital Encounter [facility] Operating Room [address] [place] [address] Felicia Taveras MBBS 111 [facility], [facility] [place] [address] [place] [address] ILD (interstitial lung disease) ([facility]) Discharge Disposition: Home or Self Care Social [...] No 10/07/2017 documented as of this encounter Discharge Instructions * Discharge Instr - AVS First Page* Felicia Taveras MBBS - 04/16/2024 14:53 EDT Start warfarin tonight at previous dose Check INR at home once every 2 days till INR reaches target After that frequency per previous recommendation Continue Lovenox at current dose and can start tonight STOP Lovenox after INR reaches the target range Usually the target INR reached within 3-5 days of restarting warfarin, If this does not happen contact PCP Start airway clearance regimen twice daily- albuterol inhaler followed by hypertonic saline nebulization followed by Acapella use Continue Breztri for now Will call with results within a week * Attachments The following attachments cannot be sent through Care Everywhere. * Bronchoscopy: Post-op (British) documented in this encounter Medications at Time of Discharge Medication Sig Dispensed Refills Start Date End Date albuterol 90 mcg/actuation HFA aerosol inhaler inhaler INHALE 2 PUFF BY MOUTH EVERY 4 TO 6 HOURS NEEDED FOR COUGH/ WHEEZING OR FOR SHORTNESS OF BREATH 03/01/2024 amoxicillin-clavulanate (AUGMENTIN) 875-125 mg per tabletIndications:Pneumon ia of left lung due to methicillin susceptible Staphylococcus aureus (MSSA), unspecified part of lung (HCC-CMS) Take 1 Tablet by mouth every 12 hours. 14 Tablet 04/19/2024 atorvastatin (LIPITOR) 20 mg tablet Take 1 Tablet by mouth at bedtime. 30 Tablet 5 03/15/2024 BREZTRI AEROSPHERE 160-9-4.8 mcg/actuation HFA aerosol inhaler Inhale 2 Puffs as directed 2 times daily. 03/01/2024 levothyroxine (SYNTHROID) 50 mcg tablet Take 1 Tablet by mouth daily. montelukast (SINGULAIR) 10 mg tablet Take 1 Tablet by mouth daily. omeprazole (PRILOSEC) 20 mg capsule Take 1 Capsule by mouth daily. oxybutynin (DITROPAN-XL) 10 mg CR tablet Take 1 Tablet by mouth daily. 08/16/2023 venlafaxine (EFFEXOR) 75 mg tablet Take 1 Tablet by mouth daily. WARFARIN SODIUM (COUMADIN ORAL) Take by mouth. As directed documented as of this encounter Discharge Disposition Disposition Code Departure Means Destination Home or Self Care documented in this encounter Miscellaneous Notes * Brief Op Note - Felicia Taveras MBBS - 04/16/2024 1100 EDT Date: 04/16/2024 [place] [facility] Name: Sylvain Rodgers, : 1950, Diagnosis Abnormal CT chest, chronic cough Abnormal CT chest, chronic cough, Mucous plugging Surgeons PANCHO Villanueva Procedure Summary ASA: I Estimated Blood Loss: No Blood Loss LDAs: Peripheral IV 04/16/24 1036 Right Antecubital (Active) Staff: Sedation Nurse: Anamaria Mir, RN Respiratory Therapist: Cleo Wahl, RT; Marcia Duvall, RT Proceduralist: Felicia Taveras MBBS Indications: Sylvain Rodgers is an 74 y.o. male who is having surgery for chronic cough. Procedure Planned: Flexible bronchoscopy, Bronchoalveolar lavage, and Bronchial Washing Anesthesia: Moderate conscious sedation - Versed 3 mg IV, fentanyl 100 mcg IV; Time of start of sedation: 1:15 PM; Time of last dose of sedation: 1:37 PM Extent of Exam: sub segmental level of tracheobronchial tree Procedure technique: A physical exam was performed. Informed consent [...] used for local analgesia and conscious sedation (seeRN MAR). The adult small Olympus bronchoscope was then inserted through the right nostril. Vocal cords appeared inflamed and mildly edematous. Epiglottis appeared inflamed - images in scanned media. Lidocaine 1% administered in a alyrs-of-kwd-go fashion. 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 with coughing and expiration. There was erythema and inflammation seen in bilateral airways. It was significantly more in the left lung. Thick mucopurulent secretions seen in left main stem, left upper lobe and left lower lobe bronchi. Secretions suctioned out with difficulty. The bronchoscope had to be removed from airways andflushed multiple times. Bronchoalveolar lavage was performed in the left upper lobe anterior segment. 120 mL was instilled. 50 mL aspirated. Mucous plugs were present. There was good return of alveolar fluid. 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 Recommendations: Patient tolerated the procedure well. Specimens Collected: Microbiology-bacterial, AFB, fungal cultures of the following-, BAL from left upper lobe anterior segment, Bronchial Washing, Extended viral panel of the BAL, Cytology of the following specimens - , Bronchoalveolar lavage, Differential count of the bronchoalveolar lavage was also sent, and Aspergillus Ag in BAL I personally spent 22 minutes in continuous appj-gn-xjqy attendance with the patient during the administration of the moderate sedation and supervised the moderate sedation services that were monitored by an independent trained observer (RN) who had no other duties during the procedure I performed the procedure PANCHO Villanueva * Result Encounter Note - Felicia Taveras MBBS - 04/16/2024 0937 EDT A [email or web address] message was sent to patient regarding recent results. Your recent results were reviewed : bronchoalveolar lavage culture, cytology and differential count. They look fine to me. Continue your current treatment plan. There was no evidence of infection. If there is any change insymptoms please call us. Will repeat the creatinine to make sure its trending back down. I have ordered it - you can do it in [place]. Ill ask my team to fax it there. Best regards, PANCHO Villanueva documented in this encounter Plan of Treatment Upcoming Encounters Date Type Department Care Team (Late st Contact Info) Description 03/18/2025 14:00 EDT Ancillary Procedure [facility] - [place] [address] 03/18/2025 14:40 EDT Office Visit [facility] - [place] [address] Fela Villegas NP [address] [place] [address] Pending Results Name Type Priority Associated Diagnoses Date /Time FUNGUS CULTURE Microbiology Routine 04/16/20 13:41 EDT FUNGUS CULTURE Microbiology Routine 04/16/20 13:42 EDT DIFFERENTIAL, LAVAGE FLUID Lab Routine 04/16/2024 13:42 EDT AFB CULTURE/SMEAR, OTHER Microbiology Routine 04/16/2024 13:41 EDT AFB CULTURE/SMEAR, OTHER Microbiology Routine 04/16/2024 13:42 EDT [facility] AFB CULTURE SMEAR Microbiology Today 0 04/16/2024 13:41 EDT [facility] AFB CULTURE SMEAR Microbiology Today 0 04/16/2024 13:42 EDT Scheduled Orders Name Type Priority Associated Diagnoses Orde r Schedule FUNGUS CULTURE Microbiology Routine Release Upon Ordering for 1 Occurrences starting 04/16/2024, 1 completed FUNGUS CULTURE Microbiology Routine Release Upon Ordering for 1 Occurrences starting 04/16/2024, 1 completed documented as of this encounter Procedures Procedure Name Priority Date/Time Associated Diagnosis Comments ECG REPORT - SCANNED 04/17/2024 10:45 EDT MISCELLANEOUS TEST, [place] Routine 04/16/2024 13:46 EDT EXPANDED RESPIRATORY VIRAL PANEL, PCR (DOES NOT INCLUDE INFLUENZA OR RSV) Routine 04/16/2024 13:45 EDT [facility] AFB CULTURE SMEAR Today 04/16/2024 13:42 EDT NON BLADE GRADER OPERATOR/FNA CYTOLOGY Routine 04/16/2024 13:42 EDT AFB CULTURE/SMEAR, OTHER Routine 04/16/2024 13:42 EDT DIFFERENTIAL, LAVAGE FLUID Routine 04/16/2024 13:42 EDT BACTERIAL CULTURE/SMEAR, RESPIRATORY Routine 04/16/2024 13:42 EDT [facility] AFB CULTURE SMEAR Today 04/16/2024 13:41 EDT AFB CULTURE/SMEAR, OTHER Routine 04/16/2024 13:41 EDT BACTERIAL CULTURE/SMEAR, RESPIRATORY Routine 04/16/2024 13:41 EDT ADULT BRONCHOSCOPY Routine 04/16/2024 11 :00 EDT ILD (interstitial lung disease) ([facility]) documented in this encounter Results * ECG REPORT - SCANNED (04/17/2024 10:45 EDT) 04/17/2024 10:4 5 EDT Scan 2 Technical Information Specialist PROCEDURE/MINOR MARCO A GICAL ORDERABLES * MISCELLANEOUS TEST, [place] (04/16/2024 13:46 EDT) Pathologist [facility] [place] Miscellaneous Test, [place] SEE NOTE 04/17/2024 23:20 EDT [facility] Comment: Test ?Result ? Flag ??Unit ?? RefValue Aspergillus Ag, BAL ? <0.500 ? index ??<0.5 ? ADDITIONAL INFORMATION ?This is a qualitative test and the resulted index value is ?not indicative of disease severity. ??Serial testing is ?recommended for patients at high risk for invasive ?aspergillosis. ?This assay was performed using the FDA-cleared [employer]Cubits ?Platelia Aspergillus Galactomannan EIA. ?Test Performed by: ?[facility] ?[address] [place] [address] ?Straight Line Press Setter: Cherrie Fernandez Ph.D.; CLIA# [id number] Fluid STRUCTURE OF UPPER LOBE OF LEFT LUNG / Unknown 04/16/2024 13:46 EDT 04/16/2024 14:05 EDT Felicia DELEON CHEMI STRY & BLOOD GAS ORDERABLES [facility] [address] [place] [address] * EXPANDED RESPIRATORY VIRAL PANEL, PCR (DOES NOT INCLUDE INFLUENZA OR RSV) (04/16/2024 13:45 EDT) Paraflu Type 1 Rslt (PF1RES) Negative Negative 04/16/2024 23:50 EDT [facility] Paraflu Type 2 Rslt (PF2RES) Negative Negative 04/16/2024 23:50 EDT [facility] Paraflu Type 3 Rslt (PF3RES) Negative Negative 04/16/2024 23:50 EDT [facility] Paraflu Type 4 Rslt Negative Negative 04/16 23:50 EDT [facility] Rhinovirus RNA Rslt (RVRES) Negative Negative 04/16/2024 23:50 EDT [facility] Metapneumovirus RNA Rslt (HMVRES) Negative Negative 04/16/2024 23:50 EDT [facility] Adenovirus DNA Rslt (ADVRES) Negative Negative 04/16/2024 23:50 EDT [facility] BAL STRUCTURE OF UPPER LOBE OF LEFT LUNG / Unknown 04/16/2024 13:45 EDT 04/16/2024 14:07 EDT Narrative [facility] - 04/16/2024 23:50 EDT This test was developed and its performance characteristics by [facility]. It has not been cleared or [...] perform high complexity clinical laboratory testing. Felicia Taveras CHICOBS MICRO BIOLOGY - GENERAL ORDERABLES [facility] [address] [place], [place] [id number] * NON BLADE GRADER OPERATOR/FNA CYTOLOGY (04/16/2024 13:42 EDT) Note to Patient The following pathology results have been interpreted by your pathologist and may be available to you before your health provider has had the opportunity to review them. Please allow time for your provider to receive these results and explore management options, if applicable. 04/18/2024 14:57 [facility] Final Diagnosis A. BRONCHOALVEOLAR LAVAGE, LEFT UPPER LOBE, ANTERIOR SEGMENT, CYTOLOGIC EVALUATION: - No malignant cells identified. - Occasional benign bronchial cells and abundant alveolar macrophages present. - Silver stain: Negative for fungal organisms. - Oil Red O stain: Less than 10% lipid-laden macrophages. 04/18/2024 14:57 [facility] Attestation By the signature below, the attending physician certifies that they have personally conducted a gross and/or microscopic examination of the described specimens and rendered or confirmed the above diagnosis. 04/18/2024 14:57 [facility] at 1457 Clinical History 04/18/2024 14:57 [facility] Gross Description A. 25 mL of cloudy, pale pink fluid with red fragments were received and processed by selective cellular enhancement technique. 04/18/2024 14:57 [facility] Performing Lab [facility] 07/2024 14:57 [facility] Scanned Images 04/18/2024 14:57 [facility] BAL STRUCTURE OF UPPER LOBE OF LEFT LUNG / Unknown 04/16/2024 13:42 EDT 04/17/2024 10:56 EDT Felicia DELEON PATHO LOGY ORDERABLES Performing Organization Address City/[facility]/ZIP Co de Phone Number [facility] [address] [place] [address] * (ABNORMAL) BACTERIAL CULTURE/SMEAR, RESPIRATORY (04/16/2024 13:42 EDT) Organism ID [id number], [id number] to 100,000 CFU/ml VITEK SUSCEPTIBILITY 04/18/2024 11:07 EDT [facility] Comment: Usual kayce-pharyngeal david Smear Neutrophils Present(A) 04/18/2024 11:07 EDT [facility] Comment:Corrected result: Pr eviously reported as Few Neutrophils Present on 04/16/2024 at 1558 EDT. Smear Squamous Epithelial Cells(A) 04/18/2024 11:07 EDT [facility] Comment:Corrected result: Pr eviously reported as Few Squamous Epithelial Cells on 04/16/2024 at 1558 EDT. Smear Gram Positive Cocci(A) 04/18/2024 11:07 EDT [facility] Comment:Corrected result: Pr eviously reported as Few Gram Positive Cocci on 04/16/2024 at 1558 EDT. Smear Respiratory epithelial cells absent(A) 04/18/2024 11:07 EDT [facility] Smear Mucus present(A) 04/18/2024 11:07 EDT [facility] Comment: Cytospin gram stain interpreted. KEELEY anterior segment - BAL BAL STRUCTURE OF UPPER LOBE OF LEFT LUNG / Unknown 04/16/2024 13:42 EDT 04/16/2024 14:08 EDT Felicia DELEON MICRO BIOLOGY - GENERAL ORDERABLES Performing Organization Address [facility]/ZIP Co de Phone Number [facility] [address] [place] [address] * (ABNORMAL) BACTERIAL CULTURE/SMEAR, RESPIRATORY (04/16/2024 13:41 EDT) Organism ID Few Methicillin-Sens itive Staphylococcus aureus(A) VITEK SUSCEPTIBILITY 04/20/2024 7:49 EDT [facility] Comment:Few Usual kayce-pharyn geal david Smear Few Neutrophils Present(A) 04/20/2024 7:49 EDT [facility] Smear Few Squamous Epithelial Cells(A) 04/20/2024 7:49 EDT [facility] Smear Few Gram Positive Cocci(A) 04/20/2024 7:49 EDT [facility] Smear Mucus present(A) 04/20/20 7:49 EDT [facility] Smear Respiratory epithelial cells absent(A) 04/20/2024 7:49 EDT [facility] Comment:bronchial wash Wash SPECIMEN FROM LUNG OBTAINED BY BRONCHIAL WASHING PROCEDURE / Unknown 04/16/2024 13:41 EDT 04/16/2024 14:04 EDT [facility] - 04/20/2024 7:49 EDT Susceptible to nafcillin, cephalosporins and other beta lactam antibiotics (mecA gene product absent) Organism Antibiotic Method Susceptibility Methicillin-Sensitive Staphylococcus aureus Azithromycin VITEK SUSCEPTIBILITY Deduced Susceptible Methicillin-Sensitive Staphylococcus aureus Cefazolin VITEK SUSCEPTIBILITY Deduced Susceptible Methicillin-Sensitive Staphylococcus aureus Clindamycin VITEK SUSCEPTIBILITY <=0.25 ug/mL: Susceptible Methicillin-Sensitive Staphylococcus aureus Erythromycin VITEK SUSCEPTIBILITY <=0.25 ug/mL: Susceptible Methicillin-Sensitive Staphylococcus aureus Levofloxacin VITEK SUSCEPTIBILITY 0.5 ug/mL: Susceptible Methicillin-Sensitive Staphylococcus aureus Oxacillin VITEK SUSCEPTIBILITY <=0.25 ug/mL: Susceptible Methicillin-Sensitive Staphylococcus aureus Trimethoprim-Sulfame thoxazole VITEK SUSCEPTIBILITY <=10 ug/mL: Susceptible Methicillin-Sensitive Staphylococcus aureus Tetracycline VITEK SUSCEPTIBILITY <=1 ug/mL: Susceptible Comment:Tetracycline susceptible S.aureus is also susceptible to doxycycline and minocycline. Methicillin-Sensitive Staphylococcus aureus Vancomycin VITEK SUSCEPTIBILITY <=0.5 ug/mL: Susceptible Felicia DELEON MICRO BIOLOGY - GENERAL ORDERABLES [facility] [address] [place] [address] * ADULT BRONCHOSCOPY (04/16/2024 11:00 EDT) Anatomical [...] scanned media. Lidocaine 1% administered in a hreqq-tg-eib-go fashion. ?? Endobronchial findings: There was significant [...] I personally spent 22 minutes in continuous ltjs-xx-znky attendance with the patient during the administration [...] AM By Freddy Taveras Felicia DELEON GI MA OCEDURE ORDERABLES documented in this encounter Visit Diagnoses Diagnosis ILD (interstitial lung disease) ([facility]) Postinflammatory pulmonary fibrosis documented in this encounter Administered Medications Inactive Administered Medications - up to 3 most recent administrations Medication Order MAR Action Action Date Dose Rate Site fentaNYL citrate (PF) injection intravenous, As needed, Starting on Tue04/16/24 at 1320, Until Tue04/16/24 at 1334, Routine, Intraprocedure Given 04/16/2024 13:34 EDT 25 mcg Given 04/16/2024 13:28 EDT 25 mcg Given 04/16/2024 13:18 EDT 50 mcg lactated ringers (LR) infusion at 30 mL/hr, intravenous, CONTINUOUS, Starting on Tue04/16/24 at 1100, Until Tue04/18/24 at 0159, Routine, Preprocedure New Bag 04/16/2024 10:37 EDT 30 mL/hr lidocaine (XYLOCAINE) 2 % viscous solution oral, As needed, Starting on Tue04/16/24 at 1305, Until Tue04/16/24 at 1305, Routine, Intraprocedure Given 04/16/2024 13:05 EDT 15 mL midazolam (VERSED) injection intravenous, As needed, Starting on Tue04/16/24 at 1318, Until Tue04/16/24 at 1331, Routine, Intraprocedure Given 04/16/2024 13:31 EDT 0.5 mg Given 04/16/2024 13:25 EDT 0.5 mg Given 04/16/2024 13:18 EDT 2 mg documented in this encounter Historical Medications * This list may reflect changes made after this encounter. Medication Sig Dispensed Refills Start Date End Date enoxaparin (LOVENOX) 80 mg/0.8 mL injection Inject 80 mg into the skin 2 times daily. Lovenox to cover for Warfarin added in this encounter Orders Medications Ordered That Matt ht Not Have Been Administered Count Last Ordered Date First Ordered Date lidocaine (PF) 10 mg/mL (1 % ) injection 2 mg 1 04/16/2024 Discharge Count Last Ordered Date First Orde red Date DISCHARGE PATIENT 1 04/16/2024 documented in this encounter Care Teams Moderate Needs Teacher Relationship Specialty Start Date End Date Farnaz Pineda MD [address] [place] [address] PCP - General 11/18/09 Fela Villegas NP [address] [place] [phone] Lathe Tender Cardiovascular Disease 03/12/22 documented as of this encounter
--- OUTSIDE RECORDS SUMMARY | 2024-04-20 15:10 | XMS_ITS | Encounter Summary ---
Author Organization [facility] Address [address] [place] [address] Care Team Providers Care Plant Guard Name Role Phone Farnaz Pineda MD Primary Care Provider [phone] Fela Villegas SLEEPING CAR CONDUCTOR Unavailable Encounter Details Date Type Department Care Team (Late st Contact Info) Description 03/15/2024 E-Consult [facility] Pulmonology & Critical Care - [facility] [address] [place], [place] [id number] Diann Sol MD [address] [place] [address], [address] [place] [address] Social History Tobacco Use Types Packs/Day Years [...] as of this encounter Progress Notes * Diann Sol MD - 03/15/2024 1712 EDT eConsult Outcome: Declined Rationale: the patient has already been referred for an in-person consultation at [facility]. That is an appropriate plan. I have reached out to [facility] to follow up about scheduling for the patient. Patient consent for this eConsult was obtained by the referring provider. Please alert me if you have further questions. documented in this encounter Plan of Treatment Upcoming Encounters Date Type Department Care Team (Late st Contact Info) Description 03/18/2025 14:00 EDT Ancillary Procedure [facility] Cardiology - [address] [place], [place] [phone] 03/18/2025 14:40 EDT Office Visit [facility] Cardiology - [address] [place] [address] Fela Villegas NP [address] [phone] documented as of this encounter Visit Diagnoses Not on filedocumented in this encounter Care Teams Plant Guard Relationship Specialty Start Date End Date Farnaz Pineda MD [address] [place] [id number] PCP - General 11/18/09 Fela Villegas NP [address] [phone] Shipwright Helper Cardiovascular Disease 03/12/22 documented as of this encounter
--- OUTSIDE RECORDS SUMMARY | 2024-04-20 15:10 | XMS_ITS | Encounter Summary ---
Author Organization [facility] Address [address] [place] [address] Care Team Providers Care Chemical Machine Tender Name Role Phone Farnaz Pineda MD Primary Care Provider [phone] Fela Villegas METER REPAIRER HELPER Unavailable [phone] Encounter Details Date Type Department Care Team (Late st Contact Info) Description 07/07/2020 Telephone [facility] Cardiology - [address] [place], [place] [phone] Gricelda Humphrey, LANIE Social History Tobacco Use Types Packs/Day Years [...] encounter Miscellaneous Notes * Telephone Encounter - Gricelda Humphrey, RN - 07/07/2020 1251 EDT All lab work is good per Fela Feliz NP * Telephone Encounter - Gricelda Humphrey RN - 07/07/2020 1251 EDT ----- Message from Fela Villegas APRN sent at 07/04/2020 15:37 EDT ----- Please tell her all her blood work was great! Elda documented in this encounter Plan of Treatment Upcoming Encounters Date Type Department Care Team (Late st Contact Info) Description 03/18/2025 14:00 EDT Ancillary Procedure [facility] Cardiology - [place] [address] [place], [place] [id number] 03/18/2025 14:40 EDT Office Visit [facility] - [place] [address] [place] [address] Fela Villegas NP [address] [phone] documented as of this encounter Visit Diagnoses Not on filedocumented in this encounter Care Teams Chemical Machine Tender Relationship Specialty Start Date End Date Farnaz Pineda MD [address] [place] [address] PCP - General 11/18/09 Fela Villegas NP [address] [phone] Migration Agent Cardiovascular Disease 03/12/22 documented as of this encounter
--- OUTSIDE RECORDS SUMMARY | 2024-04-20 15:10 | XMS_ITS | Encounter Summary ---
Author Organization [facility] Address [address] [place] [address] Care Team Providers Care Mammalogist Name Role Phone Farnaz Pineda MD Primary Care Provider [phone] Reason for Visit * Reason Comments Other aortic valve disorde r Encounter Details Date Type Department Care Team (Late st Contact Info) Description 10/07/2017 10:15 EST Office Visit [facility] Cardiology - [address] [place], [place] [phone] Neo Madrid MD Aortic valve disorder (Primary Dx) Social History Tobacco Use Types Packs/Day Years Used Date Smoking Tobacco: Former Cigarettes Smokeless Tobacco: Never Alcohol Use Standard Drinks/Week Comments Not Asked 0 (1 standard drink = 0.6 oz pur e alcohol) Sex and Gender Information Value Date Recorded Sex Assigned at Not on file Gender Identity Male 07/02/2020 16:52 EDT Sexual Orientation Not on file documented as of this encounter Last Filed Vital Signs Vital Sign Reading Time Taken Comments Blood Pressure 126/80 10/07/2017 1009 EST Pulse 76 10/07/2017 1009 EST Temperature - - Respiratory Rate - - Oxygen Saturation - - Inhaled Oxygen Concentration - - Weight 99.8 kg (220 lb) 10/07/2017 1009 EST Height 172.7 cm (5' 8) 10/07/2017 1009 EST Body Mass Index 33.45 10/07/2017 1009 EST documented in this encounter Functional Status Functional [...] Progress Notes * Neo Madrid MD - 10/07/2017 1015 EST This office note has been dictated. * Noe Madrid MD - 10/07/2017 0000 EST [facility] CARDIOLOG[facility] October 07, 2017 Farnaz Pineda MD [address] [place] [address] RE: DILLAN AL : [address] Pineda: I saw Mr Al in cardiology clinic. I had seen him a little more than a year ago. I followed him for his previous aortic valve replacement with St. Marvin valve. Since I last saw him, he has done well. He has had no chest pains, no PND, no orthopnea. His Berry filter remains in place. He now returns in followup. Problem List: 1. Aortic valve disease. a. 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 2. Reactive airway disease. 3. Prostate cancer. a. Resection. B . Complicated by DVT. c. Complicated by sepsis. d. Dudley filter. Current Meds: Aspirin 81 mg a day. Warfarin as directed Singulair 10 mg a day. Levothyroxine 50 mcg a day. Advair twice a day. Flexeril 10 mg twice a day. Physical Exam: He was alert, oriented x3, in no acute distress. Blood pressure 126/80, pulse 76 andregular. Lungs were clear. Cardiac examination: S1 and S2 were normal. There was a normal clicking sound of the valve with a 1/6 systolic murmur along the left sternal border. There is no diastolic murmur, gallop or rub. Extremities showed no edema. From a cardiac standpoint, Mr Al is quite stable. He is on aspirin and Coumadin. It is not clearwhy, there is no compelling reason for him to be on aspirin unless that was related to the DVT he had at his surgery. Otherwise I think he should come off it, but I would leave that to you to check your records and see why we got put on the aspirin. I will see him back in another year's time. If hehas further problems in the meantime, I would be happy to see him sooner than that. Thank you again for allowing me to see him and participate in his care. Sincerely, Neo Madrid MD 10 42 AM - Neo Madrid MD mn Dictation ID: [id number] cc: Farnaz Pineda MD, [address], [place] [address] documented in this encounter Plan of Treatment Upcoming Encounters Date Type Department Care Team (Late st Contact Info) Description 03/18/2025 14:00 EDT Ancillary Procedure [facility] Cardiology - [address] [place] [address] 03/18/2025 14:40 EDT Office Visit [address] [place] [address] Fela Villegas, PANKAJ [address] [facility] [address] [place] [phone] documented as of this encounter Visit Diagnoses Diagnosis Aortic valve disorder- Primary Aortic valve disorders documented in this encounter Care Teams Mammalogist Relationship Specialty Start Date End Date Farnaz Pineda MD [address] [place] [id number] PCP - General 11/18/09 documented as of this encounter
--- OUTSIDE RECORDS SUMMARY | 2024-04-20 15:10 | XMS_ITS | Encounter Summary ---
Author Organization [facility] Address [address] [place] [address] Care Team Providers Care Rn Clinical Documentation Name Role Phone Farnaz Pineda MD Primary Care Provider Encounter Details Date Type Department Care Team (Latest Contact Info) Description 10/01/2013 14:47 EST - 10/01/2013 23:59 EST Hospital Encounter [address] [address] Unknown, Provider, Discharge Disposition: Home or Self Care Social [...] (COUMADIN ORAL) Take by mouth. As directed Aspirin 81 mg Tab Take 81 mg by mouth daily. 07/03/2019 cyclobenzaprine (FLEXERIL) 10 mg tablet Take 10 mg by mouth 2 times daily as needed. 03/15/2024 FLUTICASONE/SALMETEROL (ADVAIR DISKUS INHL) Inhale as directed 2 times daily. 03/15/[address] onto the skin daily. 03/15/2024 documented as of this encounter Discharge Disposition Disposition Code Departure Means Destination Home or Self [facility] documented in this encounter Plan of Treatment Upcoming Encounters Date Type Department Care Team (Late st Contact Info) Description 03/18/2025 14:00 EDT Ancillary Procedure [facility] Cardiology - [address] [place], [place] [phone] 03/18/2025 14:40 EDT Office Visit [facility] Cardiology [address] [place] [address] Fela Villegas NP [address] [facility] [address] [place] [phone] documented as of this encounter Visit Diagnoses Not on filedocumented in this encounter Care Teams Rn Clinical Documentation Relationship Specialty Start Date End Date Farnaz Pineda MD [address] [place] [address] PCP - General 11/18/09 documented as of this encounter
--- OUTSIDE RECORDS SUMMARY | 2024-04-20 15:10 | XMS_ITS | Encounter Summary ---
Author Organization [facility] Address [address] [place] [address] Care Team Providers Care Breed To Wean Production Technician Name Role Phone Farnaz Pineda MD Primary Care Provider [phone] Fela Villegas WATER PURIFIER OPERATOR Unavailable [phone] Encounter Details Date Type Department Care Team (Late st Contact Info) Description 03/15/2022 Orders Only [facility] Radiology - [facility] [address] [place], [place] [phone] Patrick Prado MD [address] [facility], [address] [place] [address] Social History Tobacco Use Types [...] Info) Description 03/18/2025 14:00 EDT Ancillary Procedure [facility] Cardiology - [facility] [place] [address] 03/18/2025 14:40 EDT Office Visit [facility] Cardiology - [facility] [place] [address] Fela Villegas, PANKAJ [address] [place] [phone] documented as of this encounter Visit Diagnoses Not on filedocumented in this encounter Care Teams Breed To Wean Production Technician Relationship Specialty Start Date End Date Farnaz Pineda MD [address] [place] [address] PCP - General 11/18/09 Fela Villegas, PANKAJ [address] [place] [phone] Index Clerk Cardiovascular Disease 03/12/22 documented as of this encounter
--- OUTSIDE RECORDS SUMMARY | 2024-04-20 15:11 | XMS_ITS | Encounter Summary ---
Author Organization [facility] Address [address] [place] [address] Care Team Providers Care Lead Tank Mechanic Name Role Phone Unavailable Primary Care Provider Unavailabl e Encounter Details Date Type Department Care Team (Late st Contact Info) Description 06/21/2002 6:54 EDT - 06/26/2002 11:59 EDT Hospital Encounter [facility] [address], [place] [address] Masoud Contreras MD [address] [facility], [facility] [address] [place] [phone] Discharge Disposition: Home or Self Care Social History Tobacco Use Types Packs/Day Years Used Date Smoking Tobacco: Never Assessed Sex and Gender Information Value Date Recorded Sex Assigned at Not on file Gender Identity Male 07/02/2020 16:52 EDT Sexual Orientation Not on file documented as of this encounter Discharge Disposition Disposition Code Departure Means Destination Home or Self Care documented in this encounter Plan of Treatment Upcoming Encounters Date Type Department Care Team (Late st Contact Info) Description 03/18/2025 14:00 EDT Ancillary Procedure [facility] - [facility] [place] [address] [place] [address] 03/18/2025 14:40 EDT Office Visit [facility] - [place] [place] [address] Fela Villegas NP [address] [facility] [address] [place] [phone] (work) documented as of this encounter Procedures Procedure Name Priority Date/Time Associated Diagnosis Comments PTT Routine 06/26/2002 7:45 EDT PROTIME Routine 06/26/2002 7:45 EDT PROTIME Routine 06/25/2002 7:40 EDT URINE MICROSCOPIC Routine 06/25/2002 0:1 5 EDT URINALYSIS WITH MICROSCOPIC IF POSITIVE Routine 06/25/2002 0:15 EDT BACTERIAL CULTURE, URINE Routine 06/25/2002 0:15 EDT BACTERIAL CULTURE, BLOOD Routine 06/24/2002 20:14 EDT BACTERIAL CULTURE, BLOOD Routine 06/24/2002 20:10 EDT CHEST PA AND LATERAL Routine 06/24/2002 11:32 EDT BACTERIAL CULTURE/SMEAR, RESPIRATORY Routine 06/24/2002 8:00 EDT CREATININE Routine 06/24/2002 7:40 EDT HEMAGRAM & DIFF Routine 06/24/2002 7:40 EDT PROTIME Routine 06/24/2002 7:40 EDT BUN Routine 06/24/2002 7:40 EDT POTASSIUM Routine 06/24/2002 7:40 EDT PROTIME Routine 06/23/2002 7:45 EDT PORTABLE CHEST 1 VIEW Routine 06/22/2002 8:19 EDT CREATININE Routine 06/22/2002 4:17 EDT COMPLETE BLOOD COUNT Routine 06/22/2002 4:17 EDT BUN Routine 06/22/2002 4:17 EDT ELECTROLYTES Routine 06/22/2002 4:17 EDT ZZBLOOD GAS, G3 ISTAT Routine 06/21/2002 19:05 EDT COMPLETE BLOOD COUNT Routine 06/21/2002 18:55 EDT POTASSIUM Routine 06/21/2002 18:55 EDT PORTABLE CHEST 1 VIEW Routine 06/21/2002 15:00 EDT ZZBLOOD GAS, G3 ISTAT Routine 06/21/2002 14:35 EDT COMPLETE BLOOD COUNT Routine 06/21/2002 12:17 EDT POTASSIUM Routine 06/21/2002 12:17 EDT SURGICAL PATHOLOGY Routine 06/21/2002 0: 00 EDT documented in this encounter Results * PTT (06/26/2002 7:45 EDT) PTT 26 23 - 33 secs [facility] Comment:Therapeutic Heparin range: 58-100 seconds 06/26/2002 7:45 EDT 06/26/2002 8:03 EDT Masoud Contreras MD HEMATOLOGY & PF4 ORDERABLES [facility] [address] [place] [address] * (ABNORMAL) PROTIME (06/26/2002 7:45 EDT) Pro Time 13.8(H) 11.7 - 13.1 secs [facility] I.N.R. 1.2 0.8 - 1.2 Ratio [facility] Comment: Moderate Intensity Coumadin INR = 2.0-3.0 Adjustments in anticoagulant therapy dose should be based upon the INR and NOT the Pro Time. 06/26/2002 7:45 EDT 06/26/2002 8:03 EDT Masoud Contreras MD HEMATOLOGY & PF4 ORDERABLES Performing Organization Address [facility] Co de Phone Number [facility] [address] [place] [address] * PROTIME (06/25/2002 7:40 EDT) Pro Time 12.8 11.7 - 13.1 secs [facility] I.N.R. 1.1 0.8 - 1.2 Ratio [facility] Comment: Moderate Intensity Coumadin INR = 2.0-3.0 Adjustments in anticoagulant therapy dose should be based upon the INR and NOT the Pro Time. 06/25/2002 7:40 EDT 06/25/2002 8:33 EDT Masoud Contreras MD HEMATOLOGY & PF4 ORDERABLES Performing Organization Address [facility] Co de Phone Number [facility] [address] [place] [address] * URINE MICROSCOPIC (06/25/2002 0:15 EDT) WBC, UA less than 1 0 - 5 /HPF [facility] RBC, UA 5 to 10 0 - 5 /HPF [facility] Squam Epithel, UA None seen NS /HPF [facility] Renal Epithel, UA None seen NS /HPF [facility] Bacteria, UA None seen NS /HPF [facility] Crystals, UA None seen /HPF [facility] Hyaline Casts, UA None seen /LPF [facility] UA Comment Microscopic results are unreliable on urines unrefrig >2hrs or refrig >8hrs. [facility] 06/25/2002 0:15 EDT 06/25/2002 1:23 EDT Masoud Contreras MD URINALYSIS ORDERA BLES Performing Organization Address [facility] Co de Phone Number [facility] [address] [place] [address] * (ABNORMAL) URINALYSIS (06/25/2002 0:15 EDT) Color, UA Yellow [facility] Clarity, UA Clear [facility] Glucose, UA Norm NORM [facility] Bilirubin, UA Neg NEG [facility] Ketones, UA Neg NEG [facility] Specific [place], Urine 1.015 1.005 - 1.02 [facility] Blood, UA Mod(A) NEG [facility] pH, UA 6.0 5.0 - 9.0 [facility] Protein, UA Trace(A) NEG [facility] Urobilinogen, UA 1.0(A) NORM mg/dL [facility] Nitrite, UA Neg NEG [facility] Leuk Esterase Neg NEG [facility] 06/25/2002 0:15 EDT 06/25/2002 1:23 EDT Masoud Contreras MD URINALYSIS ORDERA BLES Performing Organization Address [facility] de Phone Number [facility] [address] [place] [address] * BACTERIAL CULTURE, URINE (06/25/2002 0:15 EDT) Specimen Description Urine [facility] Result Less than 10,000 CFU/ml Mixed gram positive growth [facility] Report Status Final [id number] [facility] 06/25/2002 0:15 EDT 06/25/2002 7:46 EDT Masoud Contreras MD MICROBIOLOGY - GE NERAL ORDERABLES Performing Organization Address [facility] Co de Phone Number [facility] [address] [place] [address] * BACTERIAL CULTURE, BLOOD (06/24/2002 20:14 EDT) Specimen Description Blood Right Arm [facility] Result No growth [facility] Report Status Final [id number] [facility] 06/24/2002 20:1 4 EDT 06/24/2002 21:24 EDT Masoud Contreras MD MICROBIOLOGY - GE NERAL ORDERABLES Performing Organization Address [facility] Co de Phone Number [facility] [address] [place] [address] * BACTERIAL CULTURE, BLOOD (06/24/2002 20:10 EDT) Specimen Description Blood Left Arm [facility] Result No growth [facility] Report Status Final [id number] [facility] 06/24/2002 20:1 0 EDT 06/24/2002 21:25 EDT Masoud Contreras MD MICROBIOLOGY - GE NERAL ORDERABLES Performing Organization Address [facility] Co de Phone Number [facility] [address] [place] [address] * CHEST PA AND LATERAL (06/24/2002 11:32 EDT) Anatomical Region Laterality Modality Other 06/24/2002 11:3 2 EDT Narrative 07/07/2009 3:36 EDT POD NUMBER 3, CAD R/O AVR PA AND LATERAL CHEST: 06/24/02 TIME: 1140 COMPARISON: 06/22/02 PA and lateral views. All tubes and lines have been removed. There are bilateral pleural effusions and bibasilar parenchymal opacities consistent with focal airspace disease such as atelectasis or less likely pneumonia. The upper lung zones are clear. No pneumothorax is present. Pulmonary vasculature is unremarkable. /robert Procedure Note Mc Aleman MD - 07/07/2009 POD NUMBER 3, CAD R/O AVR PA AND LATERAL CHEST: 06/24/02 TIME: 1140 COMPARISON: 06/22/02 PA and lateral views. All tubes and lines have been removed. There are bilateral pleural effusions and bibasilar parenchymal opacities consistent with focal airspace disease such as atelectasis or less likely pneumonia. The upper lung zones are clear. No pneumothorax is present. Pulmonary vasculature is unremarkable. /[facility] Masoud Contreras MD IMG DIAGNOSTIC IM AGING ORDERABLES * BACTERIAL CULTURE/SMEAR, RESPIRATORY (06/24/2002 8:00 EDT) Specimen Description Sputum [facility] Gram Smear Result Few Polys Mod Squamous epithelial cells No alveolar macrophages seen Mod Mixed gram positive and gram negative organisms Smear suggests contamination with saliva. ??Please submit additional specimen if clinically indicated. [facility] Result See gram smear results. [facility] Report Status Final [id number] [facility] 06/24/2002 8:00 EDT 06/25/2002 10:12 EDT Masoud Contreras MD MICROBIOLOGY - GE NERAL ORDERABLES Performing Organization Address [facility] [[email or web address]] de Phone Number [facility] [address] [place] [address] * PROTIME (06/24/2002 7:40 EDT) Pro Time 13.1 11.7 - 13.1 secs [facility] I.N.R. 1.1 0.8 - 1.2 Ratio [facility] Comment: Moderate Intensity Coumadin INR = 2.0-3.0 Adjustments in anticoagulant therapy dose should be based upon the INR and NOT the Pro Time. 06/24/2002 7:40 EDT 06/24/2002 8:05 EDT Masoud Contreras MD HEMATOLOGY & PF4 ORDERABLES Performing Organization Address [facility] [[email or web address]] de Phone Number [facility] [address] [place] [address] * POTASSIUM (06/24/2002 7:40 EDT) Potassium 4.0 3.5 - 5.0 mEq/L [facility] 06/24/2002 7:40 EDT 06/24/2002 8:05 EDT Masoud Contreras MD CHEMISTRY & BLOOD GAS ORDERABLES Performing Organization Address [facility] Co de Phone Number [facility] [address] [place] [address] * CREATININE (06/24/2002 7:40 EDT) Creatinine 1.1 0.7 - 1.5 mg/dl [facility] 06/24/2002 7:40 EDT 06/24/2002 8:05 EDT Masoud Contreras MD HISTORICAL LAB FO R SQ LOAD Performing Organization Address [facility] Co de Phone Number [facility] [address] [place] [address] * (ABNORMAL) HEMAGRAM & DIFF (06/24/2002 7:40 EDT) WBC 16.12(H) 4.0 - 10.4 K/cmm [facility] RBC 3.37(L) 4.36 - 5.78 M/cmm [facility] Hemoglobin 10.9(L) 13.8 - 17.3 gm/dl [facility] HCT 31.4(L) 39.5 - 50.2 % [facility] MCV 93 81 - 95 fl [facility] MCH 32.3 27.6 - 33.0 pg [facility] MCHC 34.7 32.8 - 36.4 gm/dl [facility] PLT 156 141 - 320 K/cmm [facility] RDW-CV 13.6 11.8 - 14.1 % [facility] % Neutrophils 79.4 45.5 - 79.7 % [facility] % Lymphocytes 9.9(L) 15.0 - 46.8 % [facility] % Monocytes 8.2 1.8 - 12.0 % [facility] % Eosinophils 2.1 0.6 - 6.9 % [facility] % Basophils 0.4 0.2 - 1.4 % [facility] ABS Neutrophils 12.81(H) 2.20 - 8.85 K/cmm [facility] ABS Lymphs 1.59 1.09 - 3.30 K/cmm [facility] ABS Monocytes 1.33(H) 0.1 - 0.8 K/cmm [facility] ABS Eosinophils 0.34 0.03 - 0.61 K/cmm [facility] ABS Basophils 0.06 0.01 - 0.11 K/cmm [facility] Type of Diff: Automated [facility] 06/24/2002 7:40 EDT 06/24/2002 8:05 EDT Masoud Contreras MD HISTORICAL LAB FO R SQ LOAD Performing Organization Address [facility] [[email or web address]] de Phone Number [facility] [address] [place] [address] * BUN (06/24/2002 7:40 EDT) BUN 20 10 - 26 mg/dl [facility] 06/24/2002 7:40 EDT 06/24/2002 8:05 EDT Masoud Contreras MD CHEMISTRY & BLOOD GAS ORDERABLES Performing Organization Address [facility] de Phone Number [facility] [address] [place] [address] * (ABNORMAL) PROTIME (06/23/2002 7:45 EDT) Pro Time 13.6(H) 11.7 - 13.1 secs [facility] I.N.R. 1.2 0.8 - 1.2 Ratio [facility] Comment: Moderate Intensity Coumadin INR = 2.0-3.0 Adjustments in anticoagulant therapy dose should be based upon the INR and NOT the Pro Time. 06/23/2002 7:45 EDT 06/23/2002 8:30 EDT Masoud Contreras MD HEMATOLOGY & PF4 ORDERABLES Performing Organization Address [facility] [[email or web address]] de Phone Number [facility] [address] [place] [address] * PORTABLE CHEST 1 VIEW (06/22/2002 8:19 EDT) Anatomical Region Laterality Modality Other 06/22/2002 8:19 EDT Narrative 07/07/2009 3:57 EDT AVR. ??R/O INFILTRATE PORTABLE CHEST 1 VIEW 06/22/02 0730 FINDINGS: There is increasing atelectasis in the medial right and left lung bases. No edema is noted and there are no significant pleural effusions. The Hoolehua-Mariah catheter tip is in the proximal right pulmonary artery. The patient has been extubated. /lencho Procedure Note Blair Hernandez MD / Riky Arias MD - 07/07/2009 AVR. R/O INFILTRATE PORTABLE CHEST 1 VIEW 06/22/02 0730 FINDINGS: There is increasing atelectasis in the medial right and left lung bases. No edema is noted and there are no significant pleural effusions. The Hoolehua-Mariah catheter tip is in the proximal right pulmonary artery. The patient has been extubated. /gayv Masoud Contreras MD IMG DIAGNOSTIC IM AGING ORDERABLES * (ABNORMAL) ELECTROLYTES (06/22/2002 4:17 EDT) Sodium 135(L) 136 - 145 mEq/L [facility] Potassium 5.1(H) 3.5 - 5.0 mEq/L [facility] Comment: Moderate hemolysis Hemolysis may elevate potassium result. Sample retested, result confirmed Chloride 109 96 - 110 mEq/L [facility] CO2 26 24 - 30 mEq/L [facility] 06/22/2002 4:17 EDT 06/22/2002 4:17 EDT Masoud Contreras MD CHEMISTRY & BLOOD GAS ORDERABLES [facility] [address] [place] [address] * CREATININE (06/22/2002 4:17 EDT) Creatinine 1.1 0.7 - 1.5 mg/dl [facility] 06/22/2002 4:17 EDT 06/22/2002 4:17 EDT Masoud Contreras MD HISTORICAL LAB FO R SQ LOAD Performing Organization Address [facility] Co de Phone Number [facility] [address] [place] [address] * (ABNORMAL) HEMAGRAM (06/22/2002 4:17 EDT) WBC 12.20(H) 4.0 - 10.4 K/cmm [facility] RBC 3.22(L) 4.36 - 5.78 M/cmm [facility] Hemoglobin 10.4(L) 13.8 - 17.3 gm/dl [facility] HCT 29.8(L) 39.5 - 50.2 % [facility] MCV 92 81 - 95 fl [facility] MCH 32.2 27.6 - 33.0 pg [facility] MCHC 34.8 32.8 - 36.4 gm/dl [facility] PLT 134(L) 141 - 320 K/cmm [facility] RDW-CV 13.5 11.8 - 14.1 % [facility] 06/22/2002 4:17 EDT 06/22/2002 4:17 EDT Masoud Contreras MD HEMATOLOGY & PF4 ORDERABLES Performing Organization Address [facility] Co de Phone Number [facility] [address] [place] [address] * BUN (06/22/2002 4:17 EDT) BUN 15 10 - 26 mg/dl [facility] Comment: Moderate hemolysis Results may be affected due to hemolysis. 06/22/2002 4:17 EDT 06/22/2002 4:17 EDT Masoud Contreras MD CHEMISTRY & BLOOD GAS ORDERABLES Performing Organization Address [facility] [[email or web address]] de Phone Number [facility] [address] [place] [address] * (ABNORMAL) BLOOD GAS, G3 ISTAT (06/21/2002 19:05 EDT) pH, i-STAT 7.33(L) 7.35 - 7.45 [facility] pCO2, i-STAT 42 35 - 45 mmHg [facility] pO2, i-STAT 90 85 - 100 mmHg [facility] TCO2, i-STAT 23 mEq/L [facility] O2 Saturation 96 % [facility]MARIA [facility] Temperature 37.0 C [facility] FIO2 35 [facility] Vent Support MODE:CPAP,TYPE: Pressure,RATE=1 3,PEEP=05 [facility] Pressures PIP=00,PS=05 [facility] Sample Type Arterial [facility] manager applied ID [id number] Test Performed by Respiratory [facility] 06/21/2002 19:0 5 EDT 06/22/2002 5:51 EDT Masoud Contreras MD CHEMISTRY & BLOOD GAS ORDERABLES Performing Organization Address [facility] [[email or web address]] de Phone Number [facility] [address] [place] [address] * POTASSIUM (06/21/2002 18:55 EDT) Potassium 4.6 3.5 - 5.0 mEq/L [facility] 06/21/2002 18:5 5 EDT 06/21/2002 18:55 EDT Masoud Contreras MD CHEMISTRY & BLOOD GAS ORDERABLES Performing Organization Address [facility] Co de Phone Number [facility] [address] [place] [address] * (ABNORMAL) HEMAGRAM (06/21/2002 18:55 EDT) WBC 11.25(H) 4.0 - 10.4 K/cmm [facility] RBC 3.11(L) 4.36 - 5.78 M/cmm [facility] Hemoglobin 9.8(L) 13.8 - 17.3 gm/dl [facility] HCT 28.8(L) 39.5 - 50.2 % [facility] MCV 92 81 - 95 fl [facility] MCH 31.4 27.6 - 33.0 pg [facility] MCHC 34.0 32.8 - 36.4 gm/dl [facility] PLT 123(L) 141 - 320 K/cmm [facility] RDW-CV 13.4 11.8 - 14.1 % [facility] 06/21/2002 18:5 5 EDT 06/21/2002 18:55 EDT Masoud Contreras MD HEMATOLOGY & PF4 ORDERABLES Performing Organization Address City/State/[facility] Co de Phone Number [facility] [address] [place] [address] * PORTABLE CHEST 1 VIEW (06/21/2002 15:00 EDT) Anatomical Region Laterality Modality Other 06/21/2002 15:0 0 EDT Narrative 07/07/2009 3:56 EDT S/P AVR EVAL MEDISTINAL PLEURAL EFFUSION PORTABLE CHEST, ONE VIEW, 06/21/02, 1500 HISTORY: Status post AVR, evaluate mediastinum, pleural effusions. Endotracheal tube is in good position. Mediastinal drain is normally positioned as well. Hoolehua-Mariah catheter tip is in the right anterior pulmonary artery. Right-sided chest tube is present as well. NG tube is passing into the stomach. There are low lung volumes. There is a small amount of left lower lobe atelectasis. The mediastinum is widened to the expected amount considering postoperative status. /[facility] Procedure Note Blair Hernandez MD / Riky Arias MD - 07/07/2009 S/P AVR EVAL MEDISTINAL PLEURAL EFFUSION PORTABLE CHEST, ONE VIEW, 06/21/02, 1500 HISTORY: Status post AVR, evaluate mediastinum, pleural effusions. Endotracheal tube is in good position. Mediastinal drain is normally positioned as well. Hoolehua-Mariah catheter tip is in the right anterior pulmonary artery. Right-sided chest tube is present as well. NG tube is passing into the stomach. There are low lung volumes. There is a small amount of left lower lobe atelectasis. The mediastinum is widened to the expected amount considering postoperative status. /[facility] Masoud Contreras MD IMG DIAGNOSTIC IM AGING ORDERABLES * (ABNORMAL) BLOOD GAS, G3 ISTAT (06/21/2002 14:35 EDT) pH, i-STAT 7.38 7.35 - 7.45 [facility] pCO2, i-STAT 39 35 - 45 mmHg [facility] pO2, i-STAT 102(H) 85 - 100 mmHg [facility] TCO2, i-STAT 24 mEq/L [facility] O2 Saturation 98 % [facility] Temperature 36.1 C [facility] FIO2 45 [facility] Vent Support MODE:IMV,TYPE:V olume,RATE=10,P EEP=05 [facility] Pressures PIP=00,PS=05 [facility] Sample Type Arterial [facility]ERY[facility] manager applied ID [id number] Test Performed by Respiratory [facility] 06/21/2002 14:3 5 EDT 06/21/2002 19:18 EDT Masoud Contreras MD CHEMISTRY & BLOOD GAS ORDERABLES Performing Organization Address [facility] [[email or web address]] de Phone Number [facility] [address] [place] [address] * POTASSIUM (06/21/2002 12:17 EDT) Potassium 4.2 3.5 - 5.0 mEq/L [facility] 06/21/2002 12:1 7 EDT 06/21/2002 12:38 EDT Masoud Contreras MD CHEMISTRY & BLOOD GAS ORDERABLES Performing Organization Address [facility]/State/ZIP Co de Phone Number [facility] [address] [place] [address] * (ABNORMAL) HEMAGRAM (06/21/2002 12:17 EDT) WBC 14.81(H) 4.0 - 10.4 K/cmm [facility] RBC 3.58(L) 4.36 - 5.78 M/cmm [facility] Hemoglobin 11.4(L) 13.8 - 17.3 gm/dl [facility] HCT 33.3(L) 39.5 - 50.2 % [facility] MCV 93 81 - 95 fl [facility] MCH 31.7 27.6 - 33.0 pg [facility] MCHC 34.1 32.8 - 36.4 gm/dl [facility] PLT 145 141 - 320 K/cmm [facility] RDW-CV 13.2 11.8 - 14.1 % [facility] 06/21/2002 12:1 7 EDT 06/21/2002 12:38 EDT Masoud Contreras MD HEMATOLOGY & PF4 ORDERABLES Performing Organization Address City/State/[facility] Co de Phone Number [facility] [address] [place] [address] * SURGICAL PATHOLOGY (06/21/2002 0:00 EDT) Pathology Report: SURGICAL PATHOLOGY REPORT Reports generated via electronic interface contain original data; however they are lacking the format of the original report. Caution should be taken when reading/interpreti ng unformatted reports. Name: ? DILLAN AL ? Accession #: ? [id number] ? : ? 1950 (Age: 52) ??M ? Collect Date: ? 06/21/2002 ? Location: ? [facility] ? Receive Date: ? 06/21/2002 ? Provider: MASOUD CONTRERAS MD Copy to: ? Final Pathologic Diagnosis: ? 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 Document reviewed and electronically signed by: Wang Rice MD Report ??Date: 06/26/2002 16:24 By the signature above, the attending physician certifies that he/she has personally conducted a gross and/or microscopic examination of the described specimens and rendered or confirmed the above diagnosis. Specimen(s) Received: ? Aortic valve Clinical History: ? Aortic insuff Gross Description: ? Received in normal saline labelled Vishal and aortic valve are three aortic valve cusps received in two pieces. ??One separate cups measures 2.6 x 2.0 x 0.2 cm and the remaining two fused cusps measures 2.3 x 0.8 x 0.2 cm and 3.0 x 1.3 x 0.3 cm. ??The valve cusps are garcia-white and floppy. ??Along one aspect, the cusps are thickened and calcified. ??A customer service representative teller section of each cusp is submitted as (A1) and (A2). ??(Dr. Sandoval)/[facility] End of Report [facility] 06/21/2002 06/21/2002 13: 43 EDT Masoud Contreras MD PATHOLOGY ORDERAB LES [facility] [address] [place] [address] documented in this encounter Visit Diagnoses Not on filedocumented in this encounter
--- OUTSIDE RECORDS SUMMARY | 2024-04-20 15:11 | XMS_ITS | Encounter Summary ---
Author Organization [facility] Address [address] [place] [address] Care Team Providers Care Gravity Prospecting Operator Helper Name Role Phone Unavailable Primary Care Provider Unavailabl e Encounter Details Date Type Department Care Team (Late st Contact Info) Description 03/10/2000 9:58 EDT Hospital Encounter [facility] [address] [place] [address] Neo Madrid MD Social History Tobacco Use Types Packs/Day Years [...] 16:49 EDT documented as of this encounter Plan of Treatment Upcoming Encounters Date Type Department Care Team (Late st Contact Info) Description 03/18/2025 14:00 EDT Ancillary Procedure [facility] - [facility] [place] [address] 03/18/2025 14:40 EDT Office Visit [facility] - [place] [address] Fela Villegas NP [address] [phone] documented as of this encounter Visit Diagnoses Not on filedocumented in this encounter
--- OUTSIDE RECORDS SUMMARY | 2024-04-20 15:11 | XMS_ITS | Encounter Summary ---
Author Organization [facility] Address [address] [place] [address] Care Team Providers Care Biscuit Machine Operator Name Role Phone Unavailable Primary Care Provider Unavailabl e Encounter Details Date Type Department Care Team (Late st Contact Info) Description 09/21/2007 Before PRISM Converted Visit (Maple) [facility] - Maple conversion [address] [place] [address] Neo Madrid MD Social History Tobacco Use Types Packs/Day Years Used Date Smoking Tobacco: Never Assessed Sex and Gender Information Value Date Recorded Sex Assigned at Not on file Gender Identity Male 07/02/2020 16:52 EDT Sexual Orientation Not on file documented as of this encounter Progress Notes * Neo Madrid MD - 08/17/2009 1118 EST RE: NAME: DILLAN AL : 1950 PROGRESS/FOLLOWUP NOTE - 09/21/2007 Farnaz Pineda MD [address] [facility] [address] Pineda: I saw Mr. Al. I had previously seen him a year ago and I have followed him for his aortic valve replacement, which was accomplished a number of years ago. He has done well. He has had no chest pain, shortness of breath or PND. He says that heis going to have a fasting cholesterol when he next sees you, which is in a couple of weeks. Problem List: 1. Status post AVR. a. A [address] Marvin valve. 2. Reactive airway disease. Current Medications: 1. Coumadin as directed. 2. Aspirin 81 mg daily. 3. Singulair 10 mg daily. 4. Testosterone cream. 5. Protonix. Physical Exam: He is alert and oriented x3, in no acute distress. Weight is 212 with a blood pressure of 120/84 and a pulse of 80 and regular. Lungs are clear. On cardiac examination, S1 and S2 are normal with a 1/6 systolic ejection murmur and clicking sounds of the valve. Mr. Al has had no problems as a result of his aortic valve. There has been no evidence of congestive heart failure. As he has a mechanical valve, recommendations are that he should have antibioticprophylaxis at the time of dental procedures. Finally, he should have a cholesterol level. As he isusing a testosterone patch, it would be very important to make sure that his cholesterol is not high. I will see him back in a year. If he has further problems, I would be happy to see him sooner. Medications have been reviewed and updated with the patient. A copy of the current medications havebeen provided to them. Thank you again for allowing me to see and participate in his care. Sincerely, Signed by Neo Madrid MD 09/25/2007 09:06 Neo Madrid MD - Jace Madrid MD - MANAN Job ID: [id number] Doc ID: [id number] cc: Farnaz Pineda MD Neo Madrid MD - Neo Madrid MD - manan Job ID: [id number] Doc ID: [id number] cc: Farnaz Pineda MD documented in this encounter Plan of Treatment Upcoming Encounters Date Type Department Care Team (Late st Contact Info) Description 03/18/2025 14:00 EDT Ancillary Procedure [facility] Cardiology [place] [address] 03/18/2025 14:40 EDT Office Visit [facility] Cardiology - [facility] [address] [facility] [place] [address] Fela Villegas NP [address] [facility] [address] [place] [address] documented as of this encounter Visit Diagnoses Not on filedocumented in this encounter
--- OUTSIDE RECORDS SUMMARY | 2024-04-20 15:11 | XMS_ITS | Encounter Summary ---
Author Organization [facility] Address [address] [place] [address] Care Team Providers Care Stem Threshing Machine Operator Name Role Phone Unavailable Primary Care Provider Unavailabl e Encounter Details Date Type Department Care Team (Late st Contact Info) Description 03/01/2005 14:15 EDT Hospital Encounter [facility] - Maple conversion [address] [place] [address] Neo Madrid MD Social History Tobacco Use [...] EDT Ancillary Procedure [facility] Cardiology - [facility] [place] [address] 03/18/2025 14:40 EDT Office Visit [facility] Cardiology - [facility] [place] [address] Fela Villegas NP [address] [address] documented as of this encounter Visit Diagnoses Not on filedocumented in this encounter
--- OUTSIDE RECORDS SUMMARY | 2024-04-20 15:11 | XMS_ITS | Encounter Summary ---
Author Organization [facility] Address [address] [place] [address] Care Team Providers Care Traffic Maintenance Officer Name Role Phone Unavailable Primary Care Provider Unavailabl e Encounter Details Date Type Department Care Team (Late st Contact Info) Description 03/15/2002 10:11 EDT Hospital Encounter [facility] - Maple conversion [address] [place] [address] Neo Madrid MD Social History Tobacco Use [...] Info) Description 03/18/2025 14:00 EDT Ancillary Procedure [facility] Cardiology - [facility] [place] [address] 03/18/2025 14:40 EDT Office Visit [facility] Cardiology - [facility] [place] [address] Fela Villegas NP [address] [address] documented as of this encounter Visit Diagnoses Not on filedocumented in this encounter
--- OUTSIDE RECORDS SUMMARY | 2024-04-20 15:11 | XMS_ITS | Encounter Summary ---
Author Organization [facility] Address [address] [place] [address] Care Team Providers Care Forest Economics Professor Name Role Phone Unavailable Primary Care Provider Unavailabl e Encounter Details Date Type Department Care Team (Late st Contact Info) Description 09/21/2007 14:25 EST Hospital Encounter [facility] - Maple conversion [address] [place] [address] Neo Madrid MD Social History Tobacco Use [...] Info) Description 03/18/2025 14:00 EDT Ancillary Procedure [facility] Cardiology - [facility] [place] [address] 03/18/2025 14:40 EDT Office Visit [facility] Cardiology - [place] [address] Fela Villegas NP [address] [address] documented as of this encounter Visit Diagnoses Not on filedocumented in this encounter
--- OUTSIDE RECORDS SUMMARY | 2024-04-20 15:11 | XMS_ITS | Encounter Summary ---
Author Organization [facility] Address [address] [place] [address] Care Team Providers Care Magician/Illusionist Name Role Phone Unavailable Primary Care Provider Unavailabl e Encounter Details Date Type Department Care Team (Late st Contact Info) Description 08/06/2002 9:36 EST - 08/06/2002 11:59 EST Hospital Encounter [address] [address] Masoud Contreras MD [address] [facility], [address] [place] [phone] Discharge Disposition: Auto Discharge Social History Tobacco Use Types Packs/Day Years Used Date Smoking Tobacco: Never Assessed Sex and Gender Information Value Date Recorded Sex Assigned at Not on file Gender Identity Male 07/02/2020 16:52 EDT Sexual Orientation Not on file documented as of this encounter Discharge Disposition Disposition Code Departure Means Destination Auto Discharge documented in this encounter Plan of Treatment Upcoming Encounters Date Type Department Care Team (Late st Contact Info) Description 03/18/2025 14:00 EDT Ancillary Procedure [facility] Cardiology - [facility] [place] [address] [place] [address] 03/18/2025 14:40 EDT Office Visit [facility] Cardiology - [facility] [address] [place], [place] [phone] Fela Villegas NP [address] [facility] [address] [place] [address] documented as of this encounter Procedures Procedure Name Priority Date/Time Associated Diagnosis Comments CHEST PA AND LATERAL Routine 08/06/2002 9:50 EST documented in this encounter Results * CHEST PA AND LATERAL (08/06/2002 9:50 EST) Anatomical Region Laterality Modality Other 08/06/2002 9:50 EST Impressions 07/07/2009 4:46 EDT IMPRESSION: Satisfactory postop chest. /sb Narrative 07/07/2009 4:46 EDT AORTIC VALEVE REPLACEMENT ??/ AORITC VALVE DISEASE ?? R/O PLEURAL EFFUSION 511.9 ??UNSTABLE STERNUM 733.82 ?? GIVE FILMS TO PT ?? NEEDS EKG PA AND LATERAL CHEST: 08/06/02 COMPARISON: 06/24/02 The patient is s/p aortic valve replacement with a St. Marvin prosthesis. Sternal wires are intact. Pleural effusions have resolved and the lungs are clear. There is no pneumothorax. There is moderate left ventricular enlargement, but the pulmonary vascularity is normal. 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 Marvin prosthesis. Sternal wires are intact. Pleural effusions have resolved and the lungs are clear. There is no pneumothorax. There is moderate left ventricular enlargement, but the pulmonary vascularity is normal. IMPRESSION IMPRESSION: Satisfactory postop chest. /sb Masoud Contreras MD IMG DIAGNOSTIC IM AGING ORDERABLES documented in this encounter Visit Diagnoses Not on filedocumented in this encounter
--- OUTSIDE RECORDS SUMMARY | 2024-04-20 15:11 | XMS_ITS | Encounter Summary ---
Author Organization [facility] Address [address] [place] [address] Care Team Providers Care Soft Metals Engraver Hand Name Role Phone Unavailable Primary Care Provider Unavailabl e Encounter Details Date Type Department Care Team (Late st Contact Info) Description 08/16/2002 14:48 EST Hospital Encounter [facility] - Maple conversion [address] [place] [address] Neo Madrid MD Social History Tobacco Use [...] 03/18/2025 14:00 EDT Ancillary Procedure [facility] Cardiology - [facility] [place] [address] 03/18/2025 14:40 EDT Office Visit [facility] Cardiology - [place] [address] Fela Villegas NP [address] [address] documented as of this encounter Visit Diagnoses Not on filedocumented in this encounter
--- OUTSIDE RECORDS SUMMARY | 2024-04-20 15:11 | XMS_ITS | Encounter Summary ---
Author Organization [facility] Address [address] [place] [address] Care Team Providers Care Family Support Specialist Name Role Phone Unavailable Primary Care Provider Unavailabl e Encounter Details Date Type Department Care Team (Latest Contact Info) Description 03/03/2006 14:04 EDT Hospital Encounter [facility] [place] [place] conversion [address] [place] [address] Neo Madrid MD Discharge Disposition: Auto Discharge Social History Tobacco [...] Description 03/18/2025 14:00 EDT Ancillary Procedure [facility]iology - [facility] [place] [address] [place] [address] 03/18/2025 14:40 EDT Office Visit [facility] Cardiology - [facility] [address] [place], [place] [phone] Fela Villegas NP 62 [facility] [address] [place] [address] documented as of this encounter Visit Diagnoses Not on filedocumented in this encounter
--- OUTSIDE RECORDS SUMMARY | 2024-04-20 15:11 | XMS_ITS | Encounter Summary ---
Author Organization [facility] Address [address] [place] [address] Care Team Providers Care Engineering Intern Name Role Phone Unavailable Primary Care Provider Unavailabl e Encounter Details Date Type Department Care Team (Latest Contact Info) Description 05/21/2002 6:19 EDT - 05/21/2002 11:59 EDT Hospital Encounter [facility] [address] [place], [place] [id number] Neo Madrid MD Discharge Disposition: Home or Self Care Social [...] Info) Description 03/18/2025 14:00 EDT Ancillary Procedure [facility] Cardiology - [address] [place] [address] 03/18/2025 14:40 EDT Office Visit [facility] Cardiology - [address] [place] [address] Fela Villegas NP [address] [facility] [address] [place] [address] documented as of this encounter Procedures Procedure Name Priority Date/Time Associated Diagnosis Comments CREATININE Routine 05/21/2002 7:14 EDT PTT Routine 05/21/2002 7:14 EDT PROTIME Routine 05/21/2002 7:14 EDT COMPLETE BLOOD COUNT Routine 05/21/2002 7:14 EDT BUN Routine 05/21/2002 7:14 EDT GLUCOSE, SERUM Routine 05/21/2002 7:14 EDT LIPID PROFILE (INCLUDES CHOLESTEROL, TRIGLYCERIDES, HDL, LDL) Routine 05/21/2002 7:14 EDT ELECTROLYTES Routine 05/21/2002 7:14 EDT documented in this encounter Results * GLUCOSE, SERUM (05/21/2002 7:14 EDT) Glucose, Serum 99 70 - 110 mg/dl [facility] 05/21/2002 7:14 EDT 05/21/2002 7:15 EDT Neo Madrid MD CHEMISTRY & BLOOD GA S ORDERABLES Performing Organization Address City/[facility]/ZIP Co de Phone Number [facility] [address] [place] [address] * (ABNORMAL) PTT (05/21/2002 7:14 EDT) PTT 21(L) 23 - 33 secs [facility] Comment:Therapeutic Heparin range: 58-100 seconds 05/21/2002 7:14 EDT 05/21/2002 7:15 EDT Neo Madrid MD HEMATOLOGY & PF4 ORD ERABLES Performing Organization Address City/[facility] Co de Phone Number [facility] [address] [place] [address] * PROTIME (05/21/2002 7:14 EDT) Pro Time 12.4 11.7 - 13.1 secs [facility] I.N.R. 1.0 0.8 - 1.2 Ratio [facility] Comment: Moderate Intensity Coumadin INR = 2.0-3.0 Adjustments in anticoagulant therapy dose should be based upon the INR and NOT the Pro Time. 05/21/2002 7:14 EDT 05/21/2002 7:15 EDT Neo Madrid MD HEMATOLOGY & PF4 ORD ERABLES Performing Organization Address [facility] de Phone Number [facility] [address] [place] [address] * ELECTROLYTES (05/21/2002 7:14 EDT) Sodium 141 136 - 145 mEq/L [facility] Potassium 4.3 3.5 - 5.0 mEq/L [facility] Chloride 107 96 - 110 mEq/L [facility] CO2 28 24 - 30 mEq/L [facility] 05/21/2002 7:14 EDT 05/21/2002 7:15 EDT Neo Madrid MD CHEMISTRY & BLOOD GA S ORDERABLES Performing Organization Address [facility] de Phone Number [facility] [address] [place] [address] * LIPID PROFILE (INCLUDES CHOLESTEROL, TRIGLYCERIDES, HDL, LDL) (05/21/2002 7:14 EDT) Cholesterol 208 mg/dl [facility] Comment: Desirable:<200 Borderline:200-239 High Risk:>qm=210 Triglycerides 104 35 - 160 mg/dl [facility] HDL 54 mg/dl [facility] Comment: Highly Desirable:>60 Desirable:35-60 High Risk:<35 Fasting LDL, Calculated 133 mg/dl [facility] Comment: Desirable:<130 Borderline:130-159 High Risk:>th=917 Fasting Chol/HDL Ratio 3.9 Fasting [facility] 05/21/2002 7:14 EDT 05/21/2002 7:15 EDT Neo Madrid MD CHEMISTRY & BLOOD GA S ORDERABLES [facility] [address] [place] [address] * CREATININE (05/21/2002 7:14 EDT) Creatinine 1.2 0.7 - 1.5 mg/dl [facility] 05/21/2002 7:14 EDT 05/21/2002 7:15 EDT Neo Madrid MD HISTORICAL LAB FOR S Q LOAD Performing Organization Address City/[facility] Co de Phone Number [facility] [address] [place] [address] * HEMAGRAM (05/21/2002 7:14 EDT) WBC 9.51 4.0 - 10.4 K/cmm [facility] RBC 4.91 4.36 - 5.78 M/cmm [facility] Hemoglobin 15.7 13.8 - 17.3 gm/dl [facility] HCT 46.1 39.5 - 50.2 % [facility] MCV 94 81 - 95 fl [facility] MCH 31.9 27.6 - 33.0 pg [facility] MCHC 34.0 32.8 - 36.4 gm/dl [facility] PLT 271 141 - 320 K/cmm [facility] RDW-CV 13.5 11.8 - 14.1 % [facility] 05/21/2002 7:14 EDT 05/21/2002 7:15 EDT Neo Madrid MD HEMATOLOGY & PF4 ORD ERABLES Performing Organization Address City/[facility] Co de Phone Number [facility] [address] [place] [address] * (ABNORMAL) BUN (05/21/2002 7:14 EDT) BUN 29(H) 10 - 26 mg/dl [facility] 05/21/2002 7:14 EDT 05/21/2002 7:15 EDT Neo Madrid MD CHEMISTRY & BLOOD GA S ORDERABLES Performing Organization Address City/State/[facility] Co de Phone Number [facility] [address] [place] [phone] documented in this encounter Visit Diagnoses Not on filedocumented in this encounter
--- OUTSIDE RECORDS SUMMARY | 2024-04-20 15:11 | XMS_ITS | Encounter Summary ---
Author Organization [facility] Address [address] [place] [address] Care Team Providers Care Process Assistant Name Role Phone Unavailable Primary Care Provider Unavailabl e Encounter Details Date Type Department Care Team (Late st Contact Info) Description 09/19/2008 13:42 EST Hospital Encounter [facility] - Maple conversion [address] [place] [address] Neo Madrid MD Social History Tobacco Use [...] Ancillary Procedure [facility] Cardiology - [facility] [place] [address] 03/18/2025 14:40 EDT Office Visit [facility] Cardiology - [place] [address] Fela Villegas NP 62 [facility] [address] [place] [phone] documented as of this encounter Procedures Procedure Name Priority Date/Time Associated Diagnosis Comments SURGICAL PATHOLOGY Routine 12/02/2008 0:00 EST documented in this encounter Results * SURGICAL PATHOLOGY (12/02/2008 0:00 EST) Pathology Report: SURGICAL PATHOLOGY REPORT ? Reports generated via electronic interface contain original data; ? however they are lacking the format of the original report. ? Caution should be taken when reading/interpreti ng unformatted reports. ? Name: ? DILLAN AL ? Accession #: ? [id number] ? : ? 1950 (Age: 58) ??M ? Collect Date: ? 12/02/2008 ? Location: ? [facility] ? Receive Date: ? 12/02/2008 ? Provider: ALEXA WALKO MD ? Copy to: CAMERON BERRIAN MD ? Final Pathologic Diagnosis: ? Colon, cecum, polyp, biopsy: ? 1. ?Tubular adenoma (1 piece). ? - Negative for high grade dysplasia. ? 2. ?? Colonic mucosa (1 piece) with no specific histopathologic diagnosis. ? Document reviewed and electronically signed by: ? Wang Rice MD ? Report ??Date: 12/05/2008 11:08 ? By the signature above, the attending physician certifies that he/she has ? personally conducted a gross and/or microscopic examination of the described ? specimens and rendered or confirmed the above diagnosis. ? Specimen(s) Received: ? cecal polyp ? Clinical History: ? Colorectal screening ? Gross Description: ? Received in Hollande's fixative labelled Vishal and #1 ? cecal polyp are two small biopsies each measuring 0.1 x 0.1 x 0.1 cm. ??The specimen is submitted intact in one cassette. ??(KAREN Tessitore)/tmg ? End of Report ? [facility] 12/02/2008 12/02/2008 9:2 3 EST Alexa Waddell MD PATHOLOGY ORDERABLES [facility] [address] [place] [address] documented in this encounter Visit Diagnoses Not on filedocumented in this encounter
--- OUTSIDE RECORDS SUMMARY | 2024-04-20 15:11 | XMS_ITS | Encounter Summary ---
Author Organization [facility] Address [address] [place] [address] Care Team Providers Care Metal Control Worker Name Role Phone Unavailable Primary Care Provider Unavailabl e Encounter Details Date Type Department Care Team (Late st Contact Info) Description 07/06/2001 15:49 EDT Hospital Encounter [facility] - Maple conversion [address] [place] [address] Leanna Iqbal MD [address] [place] [address], [address] [place] [phone] Social History Tobacco Use Types Packs/Day Years [...] Info) Description 03/18/2025 14:00 EDT Ancillary Procedure [facility] Cardiology - [place] [address] 03/18/2025 14:40 EDT Office Visit [facility]iology - [address] [place], [place] [phone] Fela Villegas NP [address] [facility] [place] [address] documented as of this encounter Procedures Procedure Name Priority Date/Time Associated Diagnosis Comments CHEST PA AND LATERAL Routine 07/06/2001 14:02 EDT documented in this encounter Results * CHEST PA AND LATERAL (07/06/2001 14:02 EDT) Anatomical Region Laterality Modality Other 07/06/2001 14:0 2 EDT Narrative 08/20/2009 4:33 EST PERSISTANT ASTHMA - CHRONIC PREDNISONE USE GFTP PA AND LATERAL CHEST: 07/06/01 CLINICAL HISTORY: Persistent asthma, chronic Prednisone use. There is a mild thoracic scoliosis. The cardiac silhouette is mildly enlarged, with prominence to the left ventricle. The aorta is tortuous. There is mild bronchial wall thickening centrally, consistent with bronchitis. No focal consolidation or mass is seen. No pleural abnormalities are identified. /robert Procedure Note Ronna Squires MD - 08/20/2009 PERSISTANT ASTHMA - CHRONIC PREDNISONE USE GFTP PA AND LATERAL CHEST: 07/06/01 CLINICAL HISTORY: Persistent asthma, chronic Prednisone use. There is a mild thoracic scoliosis. The cardiac silhouette is mildly enlarged, with prominence to the left ventricle. The aorta is tortuous. There is mild bronchial wall thickening centrally, consistent with bronchitis. No focal consolidation or mass is seen. No pleural abnormalities are identified. /robert Reina Beckett MD IMG DIAGNOSTIC IMAGI NG ORDERABLES documented in this encounter Visit Diagnoses Not on filedocumented in this encounter
--- OUTSIDE RECORDS SUMMARY | 2024-04-20 15:11 | XMS_ITS | Encounter Summary ---
Author Organization [facility] Address [address] [place] [address] Care Team Providers Care Bicycle Inspector Name Role Phone Unavailable Primary Care Provider Unavailabl e Encounter Details Date Type Department Care Team (Late st Contact Info) Description 06/04/2002 8:37 EDT - 06/04/2002 11:59 EDT Hospital Encounter [address] [address] Masoud Contreras MD [address] [place] [address], Level 5 [place] [phone] Discharge Disposition: Auto Discharge Social History Tobacco [...] Procedure [facility] [place] [address] 03/18/2025 14:40 EDT Office Visit [facility] [place] [address] Fela Villegas NP [address] [facility] [address] [place] [address] documented as of this encounter Procedures Procedure Name Priority Date/Time Associated Diagnosis Comments CHEST PA AND LATERAL Routine 06/04/2002 11:59 EDT URINALYSIS WITH MICROSCOPIC IF POSITIVE Routine 06/04/2002 11:22 EDT UA REFLEX Routine 06/04/2002 11:22 EDT documented in this encounter Results * CHEST PA AND LATERAL (06/04/2002 11:59 EDT) Anatomical Region Laterality Modality Other 06/04/2002 11:5 9 EDT Narrative 07/23/2009 4:49 EDT PRE-OP ??AORTIC VALVE REPAIR ?? R/O INFILTRATE / EFFUSION CHEST DATE: 06/04/2002 TIME: 1135 hours. HISTORY: Pre-op aortic valve repair. Rule out infiltrate or effusion. FINDINGS: PA and lateral views of the chest show that the cardiac silhouette is at the upper limits of normal. The aortic shadow is dilated and moderately tortuous. The lungs are clear. No infiltrate or congestive changes are seen. /law Procedure Note Raf Magallon MD - 07/23/2009 PRE-OP AORTIC VALVE REPAIR R/O INFILTRATE / EFFUSION CHEST DATE: 06/04/2002 TIME: 1135 hours. HISTORY: Pre-op aortic valve repair. Rule out infiltrate or effusion. FINDINGS: PA and lateral views of the chest show that the cardiac silhouette is at the upper limits of normal. The aortic shadow is dilated and moderately tortuous. The lungs are clear. No infiltrate or congestive changes are seen. /law Erin Bailey RN IMG DIAGNOSTIC IMAGI NG ORDERABLES * UA REFLEX (06/04/2002 11:22 EDT) UA Billing Microscopic not indicated. [facility] 06/04/2002 11:2 2 EDT 06/04/2002 11:23 EDT Masoud Contreras MD URINALYSIS ORDERA BLES Performing Organization Address [facility] Co de Phone Number [facility] [address] [place] [address] * URINALYSIS (06/04/2002 11:22 EDT) Color, UA Yellow [facility] Clarity, UA Clear [facility] Glucose, UA Norm NORM [facility] Bilirubin, UA Neg [facility]G [facility] Ketones, UA Neg NEG [facility] Specific [place], Urine 1.020 1.005 - 1.02 [facility] Blood, UA Neg NEG [facility] pH, UA 7.0 5.0 - 9.0 [facility] Protein, UA Neg NEG [facility] Urobilinogen, UA Norm NORM mg/dL [facility] Nitrite, UA Neg NEG [facility] Leuk Esterase Neg [facility]G [facility] 06/04/2002 11:2 2 EDT 06/04/2002 11:23 EDT Masoud Contreras MD URINALYSIS ORDERA UNIQUE Performing Organization Address [facility] Co de Phone Number [facility] [address] [place] [address] documented in this encounter Visit Diagnoses Not on filedocumented in this encounter
--- OUTSIDE RECORDS SUMMARY | 2024-04-20 15:11 | XMS_ITS | Encounter Summary ---
Author Organization [facility] Address [address] [place] [address] Care Team Providers Care Food Demonstrator Name Role Phone Unavailable Primary Care Provider Unavailabl e Encounter Details Date Type Department Care Team (Late st Contact Info) Description 03/03/2006 Before PRISM Converted Visit (Maple) [facility] - Maple conversion [address] [place] [address] Neo Madrid MD Social History Tobacco Use Types Packs/Day Years Used Date Smoking Tobacco: Never Assessed Sex and Gender Information Value Date Recorded Sex Assigned at Not on file Gender Identity Male 07/02/2020 16:52 EDT Sexual Orientation Not on file documented as of this encounter Progress Notes * Neo Madrid MD - 09/20/2009 1601 EST March 03, 2006 Farnaz Pineda M.D. [address] [facility], [address] [place] [address] Pineda, I saw Mr. Rodgers back in cardiology clinic. I had last seen him one year ago. Since then he has donevery well. He has had no chest pain, no shortness of breath and very little wheezing. He now just returns in follow up for his aortic valve replacement. Problem List: 1. Status post AVR a. A [address] [place] valve. 2. Reactive airway disease. Current Medications: 1. Axid 150 a day. 2. Coumadin as directed. 3. Aspirin. 4. Singulair 10 mg a day. 5. Testosterone patch. Physical Examination: He is alert and oriented x 3, in no acute distress. Weight 201 pounds, blood pressure 110/70, pulse 62 and regular. Lungs were clear. On cardiac examination S1 and S2 were normal with a 1/6 systolic murmur along the left sternal border. There is a clicking sound of the valve. Mr. Rodgers is doing well from a cardiac standpoint. I do not think there is any therapeutic change that needs to be undertaken. If you could obtain another fasting cholesterol when the opportunity arises, I would be most appreciative. Otherwise I will see him back in one year. Thank you again for allowing me to see him and participate in his care. Sincerely, Signed by Neo Madrid MD 03/11/2006 07:13 Marlene Lewis MD Neo Madrid MD - Neo Madrid MD A - dsp Job ID: [id number] Document ID: [id number] cc: Farnaz Pineda MD documented in this encounter Plan of Treatment Upcoming Encounters Date Type Department Care Team (Late st Contact Info) Description 03/18/2025 14:00 EDT Ancillary Procedure [facility] Cardiology [address] [place], [place] [id number] 03/18/2025 14:40 EDT Office Visit [facility]iology [address] [place] [address] Fela Villegas NP [address] [facility] [address] [place] [address] documented as of this encounter Visit Diagnoses Not on filedocumented in this encounter
--- OUTSIDE RECORDS SUMMARY | 2024-04-20 15:11 | XMS_ITS | Encounter Summary ---
Author Organization [facility] Address [address] [place] [address] Care Team Providers Care Cyanide Pot Hardener Name Role Phone Unavailable Primary Care Provider Unavailpedro luis e Encounter Details Date Type Department Care Team (Late st Contact Info) Description 08/17/2001 10:21 EST - 08/17/2001 11:59 EST Hospital Encounter [facility] - Maple conversion [address] [place] [address] Kristi Dickens NP [address] [address] Discharge Disposition: Auto Discharge Social History Tobacco [...] Description 03/18/2025 14:00 EDT Ancillary Procedure [facility] [place] [address] [place] [address] 03/18/2025 14:40 EDT Office Visit [facility] [place] [address] [place] [address] Fela Villegas NP [address] [facility] [address] [place] [address] documented as of this encounter Visit Diagnoses Not on filedocumented in this encounter
== END 2024-04-20 14:57 | disposition home or self-care (01) ==
LOC: LBO 15:04
PROVIDERS: PCP Family Medicine; Visit Provider Internal Medicine Pulmonary Disease
DX: N17.9 Acute kidney failure, unspecified (principal)
CPT/HCPCS: 36415; 84520; 82565

== ENCOUNTER → 2024-06-06 10:59 | Outpatient (BNVA) | payer MEDICARE, SELFPAY | PROVIDERS: PCP Family Medicine; Referring Provider Family Medicine; Visit Provider Internal Medicine Critical Care Medicine | DX: J47.0 Bronchiectasis with acute lower respiratory infection (principal); R91.1 Solitary pulmonary nodule; J39.8 Other specified diseases of upper respiratory tract; R93.89 Abnormal findings on diagnostic imaging of other specified body structures; J98.4 Other disorders of lung | CPT/HCPCS: 99215 ==

== ENCOUNTER 2024-06-06 12:23 | Outpatient (REF) | payer MEDICARE, SELFPAY ==
--- OUTSIDE RECORDS SUMMARY | 2024-06-06 12:27 | XMS_ITS | Encounter Summary ---
Author Organization [place] [address] Care Team Providers Care Rod Puller And Coiler Name Role Phone Farnaz Pineda MD Primary Care Provider [phone] Encounter Details Date Type Department Care Team (Late st Contact Info) Description 01/27/2016 Orders [place] [phone] Ross Madrid MD [facility] [place] [address] Social History Tobacco Use Types Packs/Day Years [...] on filedocumented in this encounter Care Teams Rod Puller And Coiler Relationship Specialty Start Date End Date Farnaz Pineda MD [address] [place] [address] PCP - General 10/26/12 documented as of this encounter
--- OUTSIDE RECORDS SUMMARY | 2024-06-06 12:27 | XMS_ITS | Encounter Summary ---
Author Organization [facility] [place] [address] Care Team Providers Care Business Insurance Agent Name Role Phone Farnaz Pineda MD Primary Care Provider [phone] Encounter Details Date Type Department Care Team (Late st Contact Info) Description 02/26/2021 [place] [address] Elaina Ortiz, RN Malignant neoplasm [...] * PSA (Ultrasensitive) (02/26/2021 2:31 PM EDT) Prostate Specific Antigen (Ultrasensitive ) <0.01 0.00 - 4.00 ng/mL [facility] Comment: PLEASE NOTE: The above reference interval is intended for healthy males with an intact prostate. Values within this reference interval may indicate recurrence in men who have undergone radical prostatectomy. Blood 02/26/2021 2:31 PM EDT 02/26/2021 3:00 PM EDT Narrative Resulting Agency Comment Spec In Lab Leonardo Barrios MD CHEMISTRY ORDERABL ES [facility] [place] [address] documented in this encounter Visit Diagnoses Diagnosis Malignant neoplasm of prostate documented in this encounter Care Teams Business Insurance Agent Relationship Specialty Start Date End Date Farnaz Pineda MD [address] [place] [address] PCP - General 10/26/12 documented as of this encounter
--- OUTSIDE RECORDS SUMMARY | 2024-06-06 12:27 | XMS_ITS | Encounter Summary ---
Author Organization [facility] [place] [address] Care Team Providers Care Certified Scrum Master Name Role Phone Farnaz Pineda MD Primary Care Provider [phone] Encounter Details Date Type Department Care Team (Late st Contact Info) Description 01/14/2015 10:20 AM EDT [place] [address] Ross Madrid MD [facility] [address] Prostate cancer Discharge Disposition: Home Social History [...] of clinically high risk prostate cancer (biopsy [place] 4+5=9, PSA 7.1, cT1c). He underwent NNS [...] total and free (01/14/2015 9:43 AM EDT) Prostate Specific Antigen (Ultrasensiti ve) <0.03 0.00 - 4.00 ng/mL [facility] Prostate Specific Antigen, Free <0.1 ng/mL [facility] PSA % Free Not Calculated [facility] Comment: Probability of finding CAMPUS ADMINISTRATOR on needle biopsy by age in years: [...] In Lab Ross Madrid MD CHEMISTRY ORDERABLES [facility] documented in this encounter Visit Diagnoses Diagnosis Prostate cancer Malignant neoplasm of prostate documented in this encounter Care Teams Certified Scrum Master Relationship Specialty Start Date End Date Farnaz Pineda MD [address] [place] [address] PCP - General 10/26/12 documented as of this encounter
--- OUTSIDE RECORDS SUMMARY | 2024-06-06 12:27 | XMS_ITS | Encounter Summary ---
Author Organization [facility] Address [facility] [address] Care Team Providers Care Clinical Data Management Director Name Role Phone Farnaz Pineda MD Primary Care Provider [phone] Reason for Referral * Physical Therapy (Routine) - Closed Specialty Diagnoses / Procedures Referred By Berta tavera Referred To Contact Physical Therapy Diagnoses Stress incontinence, male Ross Madrid MD [facility] [address] [address] [place] [address] Referral ID Status Reason Start Date Expiration Date V isits Requested Visits Authorized [id number] Closed Evaluate and Treat 08/23/2016 08/23/2017 1 1 Encounter Details Date Type Department Care Team (Late st Contact Info) Description 08/23/2016 Telephone [place] [phone] Ross Madrid MD [facility] [place] [address] Social History Tobacco Use Types [...] male documented in this encounter Care Teams Clinical Data Management Director Relationship Specialty Start Date End Date Farnaz Pineda MD [address] [place] [address] PCP - General 10/26/12 documented as of this encounter
--- OUTSIDE RECORDS SUMMARY | 2024-06-06 12:27 | XMS_ITS | Encounter Summary ---
Author Organization [facility] [place] [address] Care Team Providers Care Floor Installer Name Role Phone Farnaz Pineda MD Primary Care Provider [phone] Reason for Visit * Physical Therapy (Routine) - Closed Specialty Diagnoses / Procedures Referred By Berta tavera Referred To Contact Physical Therapy Diagnoses SHELDON (stress urinary incontinence), male Bartolome Pike MD [facility] [place] [address] [address] [place] [address] Referral ID Status Reason Start Date Expiration Date V isits Requested Visits Authorized [id number] Closed Evaluate and Treat 03/18/2022 03/18/2023 100 100 Encounter Details Date Type Department Care Team (Late st Contact Info) Description 08/31/2022 1:00 PM EST Office Visit Physical Therapy at [address] [place] [address] Alida Jacob, PT [facility] PHYSICAL MEDICINE & [place] [address] SHELDON (stress urinary incontinence), male Social History [...] Provider: Bartolome Pike MD Primary Insurance: Payor: [employer] [place] MEDICARE / Plan: [place] [employer] / Product Type: *No Product type* / [...] by using zinc oxide every day Goals: residential goals (3 months) 1. Patient to be [...] male documented in this encounter Care Teams Floor Installer Relationship Specialty Start Date End Date Farnaz Pineda MD [address] [place] [address] PCP - General 10/26/12 documented as of this encounter
--- OUTSIDE RECORDS SUMMARY | 2024-06-06 12:27 | XMS_ITS | Encounter Summary ---
Author Organization [place] [address] Care Team Providers Care Instructor Substitute Cosmetology Name Role Phone Farnaz Pineda MD Primary Care Provider [phone] Encounter Details Date Type Department Care Team (Late st Contact Info) Description 01/29/2019 Orders [place] [address] Terrence Dooley LPN Elevated PSA Social History [...] Results * PSA (07/16/2019 1:33 PM EDT) Prostate Specific Antigen (Ultrasensitiv e) <0.01 0.00 - 4.00 ng/mL [facility] Blood specimen (specimen) 07/16/2019 1:33 PM EDT 07/16/2019 1:37 PM EDT Narrative Resulting Agency Comment Spec In Lab Leonadro Barrios MD CHEMISTRY ORDERABL ES [facility] [place] [address] documented in this encounter Visit Diagnoses Diagnosis Elevated PSA Elevated prostate specific antigen (PSA) documented in this encounter Care Teams Instructor Substitute Cosmetology Relationship Specialty Start Date End Date Farnaz Pineda MD [address] [place] [address] PCP - General 10/26/12 documented as of this encounter
--- OUTSIDE RECORDS SUMMARY | 2024-06-06 12:27 | XMS_ITS | Encounter Summary ---
Author Organization [facility] [address] Care Team Providers Care Ink Technician Name Role Phone Farnaz Pineda MD Primary Care Provider [phone] Encounter Details Date Type Department Care Team [...] on filedocumented in this encounter Care Teams Ink Technician Relationship Specialty Start Date End Date Farnaz Pineda MD [address] [place] [address] PCP - General 10/26/12 documented as of this encounter
--- OUTSIDE RECORDS SUMMARY | 2024-06-06 12:27 | XMS_ITS | Encounter Summary ---
Author Organization [facility] [place] [address] Care Team Providers Care German Professor Name Role Phone Farnaz Pineda MD Primary Care Provider [phone] Encounter Details Date Type Department Care Team (Late st Contact Info) Description 08/16/2023 9:40 AM EST TH Visit (TeleHealth) [place] [address] Leonardo Barrios MD [facility] [place] [address] Malignant neoplasm of prostate Social History Tobacco [...] prostate documented in this encounter Care Teams German Professor Relationship Specialty Start Date End Date Farnaz Pineda MD [address] [place], [place] [address] PCP - General 10/26/12 documented as of this encounter
--- OUTSIDE RECORDS SUMMARY | 2024-06-06 12:27 | XMS_ITS | Encounter Summary ---
Author Organization [facility] [place] [address] Care Team Providers Care Telegraph Service Clerk Name Role Phone Farnaz Pineda MD Primary Care Provider [phone] Encounter Details Date Type Department Care Team (Latest Contact Info) Description 03/21/2018 2:32 PM EDT - 03/21/2018 11:59 PM EDT Hospital En[place] [phone] Bartolome Bruce MD [facility] [place] [address] Left groin mass Discharge Disposition: Home Social [...] 03:55 pm) PATIENT INFO: ID #: ? [id number] ?: ??[birth year] (68 yrs) Name: ? DILLAN AL ? Visit Date: 03/21/2018 03:01 pm PERFORMED BY: Performed By: ? Farnaz Jonas RDMS Attending: ?Anita Noriega MD Referred By: ?BARTOLOME Botello GROSS Location: ? [place] SERVICE(S) PROVIDED: ??UEXTLMTL - Extremity Limited Non Vascular - Left ?[id number] ??- [id number] INDICATIONS: ??? L inguinal hernia --------- FINDINGS: --------- Title: ? Ultrasound Report Procedure Note Anita Lea MD - 03/21/2018 Ultrasound Report (Signed Final 03/21/2018 03:55 pm) PATIENT INFO: ID #: [id number] : 50 (68 yrs) Name: DILLAN AL Visit Date: 03/21/2018 03:01 pm PERFORMED BY: Performed By: Farnaz Jonas RDMS Attending: Hari NICHOLSON, Anita Mckenzie Referred By: BARTOLOME BRUCE Location: [place] SERVICE(S) PROVIDED: UEXTLMTL - Extremity Limited Non Vascular - Left [id number] - [id number] INDICATIONS: ? L inguinal hernia --------- FINDINGS: [...] mass documented in this encounter Care Teams Telegraph Service Clerk Relationship Specialty Start Date End Date Farnaz Pineda MD [address] [place] [address] PCP - General 10/26/12 documented as of this encounter
--- OUTSIDE RECORDS SUMMARY | 2024-06-06 12:27 | XMS_ITS | Encounter Summary ---
Author Organization [facility] [place] [address] Care Team Providers Care Hr Shared Services Consultant Name Role Phone Farnaz Pineda MD Primary Care Provider [phone] Encounter Details Date Type Department Care Team (Late st Contact Info) Description 07/16/2019 2:20 PM EDT Office [place] [address] Leonardo Barrios MD [facility] [address] Malignant neoplasm of prostate Social History Tobacco [...] prostate documented in this encounter Care Teams Hr Shared Services Consultant Relationship Specialty Start Date End Date Farnaz Pineda MD [address] [place] [address] PCP - General 10/26/12 documented as of this encounter
--- OUTSIDE RECORDS SUMMARY | 2024-06-06 12:27 | XMS_ITS | Encounter Summary ---
Author Organization [place] [address] Care Team Providers Care Oracle Database Architect Name Role Phone Farnaz Pineda MD Primary Care Provider Encounter Details Date Type Department Care Team (Late st Contact Info) Description 07/20/2018 Orders Only Urology at [address] [address] Bartolome Pike MD [facility] [place] [address] Social History Tobacco Use Types Packs/Day Years [...] on filedocumented in this encounter Care Teams Oracle Database Architect Relationship Specialty Start Date End Date Farnaz Pineda MD [address] [place], [place] [address] PCP - General 10/26/12 documented as of this encounter
--- OUTSIDE RECORDS SUMMARY | 2024-06-06 12:27 | XMS_ITS | Encounter Summary ---
Author Organization [facility] [place] [address] Care Team Providers Care Analysis Intern Name Role Phone Farnaz Pineda MD Primary Care Provider [phone] Encounter Details Date Type Department Care Team (Late st Contact Info) Description 12/12/2013 Orders [place] [address] Ross Madrid MD [facility] [address] Elevated PSA (Primary Dx) Social History Tobacco [...] Results * PSA (12/13/2013 11:47 AM EST) Prostate Specific Antigen (Ultrasensitiv e) <0.03 0.00 - 4.00 ng/mL [facility] Blood specimen (specimen) 12/13/2013 11:47 AM EST 12/13/2013 11:50 AM EST Narrative Resulting Agency Comment Spec In Lab Ross Madrid MD CHEMISTRY ORDERABLES Performing Organization Address City/State/[facility] Co ok Phone Number [facility] documented in this encounter Visit Diagnoses Diagnosis Elevated PSA- Primary Elevated prostate specific antigen (PSA) documented in this encounter Care Teams Analysis Intern Relationship Specialty Start Date End Date Farnaz Pineda MD [address] [place] [address] PCP - General 10/26/12 documented as of this encounter
--- OUTSIDE RECORDS SUMMARY | 2024-06-06 12:27 | XMS_ITS | Encounter Summary ---
Author Organization [facility] [place] [address] Care Team Providers Care Upper Leather Sorter Name Role Phone Farnaz Pineda MD Primary Care Provider [phone] Encounter Details Date Type Department Care Team (Late st Contact Info) Description 06/15/2023 Orders [place] [phone] Leonardo Barrios MD [facility] [place] [address] Malignant neoplasm of prostate Social History Tobacco [...] prostate documented in this encounter Care Teams Upper Leather Sorter Relationship Specialty Start Date End Date Farnaz Pineda MD [address] [place] [address] PCP - General 10/26/12 documented as of this encounter
--- OUTSIDE RECORDS SUMMARY | 2024-06-06 12:27 | XMS_ITS | Encounter Summary ---
Author Organization [facility] [address] Care Team Providers Care Wire Frame Maker Name Role Phone Farnaz Pineda MD Primary Care Provider [phone] Encounter Details Date Type Department Care Team (Late st Contact Info) Description 07/20/2018 Telephone Urology at [address] [address] Soledad Briscoe LPN Social History [...] on filedocumented in this encounter Care Teams Wire Frame Maker Relationship Specialty Start Date End Date Farnaz Pineda MD [address] [place] [address] PCP - General 10/26/12 documented as of this encounter
--- OUTSIDE RECORDS SUMMARY | 2024-06-06 12:27 | XMS_ITS | Encounter Summary ---
Author Organization [place] [address] Care Team Providers Care Recycler Name Role Phone Farnaz Pineda MD Primary Care Provider Encounter Details Date Type Department Care Team (Late st Contact Info) Description 03/22/2023 Telephone [place] [phone] Ute Danielle MD [facility] GASTROENTEROLOG[facility] [place] [address] Social History Tobacco Use Types Packs/Day Years [...] included. DIVISION OF GASTROENTEROLOGY & HEPATOLOGY [facility] CALL Name: Sylvain Rodgers Date: 03/22/2023 Time: 4:19 PM Referring Location: [facility] Referring Provider: Dr. Urbano 73yo [...] on filedocumented in this encounter Care Teams Recycler Relationship Specialty Start Date End Date Farnaz Pineda MD [address] [place] [address] PCP - General 10/26/12 documented as of this encounter
--- OUTSIDE RECORDS SUMMARY | 2024-06-06 12:27 | XMS_ITS | Encounter Summary ---
Author Organization [facility] [place] [address] Care Team Providers Care Vascular Radiologist Name Role Phone Farnaz Pineda MD Primary Care Provider [phone] Encounter Details Date Type Department Care Team (Late st Contact Info) Description 07/12/2016 [place] [address] Ross Madrid MD [facility] [place] [address] Social History Tobacco Use Types Packs/Day Years [...] on filedocumented in this encounter Care Teams Vascular Radiologist Relationship Specialty Start Date End Date Farnaz Pineda MD [address] [place] [address] PCP - General 10/26/12 documented as of this encounter
--- OUTSIDE RECORDS SUMMARY | 2024-06-06 12:27 | XMS_ITS | Encounter Summary ---
Author Organization [facility] [place] [address] Care Team Providers Care Pneudraulic Systems Mechanic Name Role Phone Farnaz Pineda MD Primary Care Provider Encounter Details Date Type Department Care Team (Late st Contact Info) Description 07/28/2018 Telephone Urology at [address] [address] Soledad Briscoe LPN Social History [...] on filedocumented in this encounter Care Teams Pneudraulic Systems Mechanic Relationship Specialty Start Date End Date Farnaz Pineda MD [address] [place] [address] PCP - General 10/26/12 documented as of this encounter
--- OUTSIDE RECORDS SUMMARY | 2024-06-06 12:27 | XMS_ITS | Encounter Summary ---
Author Organization [facility] [place] [address] Care Team Providers Care Observer Electrical Prospecting Name Role Phone Farnaz Pineda MD Primary Care Provider [phone] Encounter Details Date Type Department Care Team (Late st Contact Info) Description 12/19/2015 Orders [place] [phone] Ross Madrid MD [facility] [place] [address] Malignant neoplasm of prostate (Primary Dx) Social [...] Results * PSA (01/26/2016 2:09 PM EDT) Prostate Specific Antigen (Ultrasensitiv e) <0.03 0.00 - 4.00 ng/mL [facility] Blood specimen (specimen) 01/26/2016 2:09 PM EDT 01/26/2016 2:30 PM EDT Narrative Resulting Agency Comment Spec In Lab Ross Madrid MD CHEMISTRY ORDERABLES [facility] [place] [address] documented in this encounter Visit Diagnoses Diagnosis Malignant neoplasm of prostate- Primary documented in this encounter Care Teams Observer Electrical Prospecting Relationship Specialty Start Date End Date Farnaz Pineda MD [address] [place] [address] PCP - General 10/26/12 documented as of this encounter
--- OUTSIDE RECORDS SUMMARY | 2024-06-06 12:27 | XMS_ITS | Encounter Summary ---
Author Organization [facility] [place] [address] Care Team Providers Care Business Info Consultant Name Role Phone Farnaz Pineda MD Primary Care Provider [phone] Encounter Details Date Type Department Care Team (Late st Contact Info) Description 08/20/2016 [place] [phone] Ross Madrid MD [facility] [place] [address] Social History Tobacco Use Types Packs/Day Years [...] filedocumented in this encounter Care Teams Business Info Consultant Relationship Specialty Start Date End Date Farnaz Pineda MD [address] [place] [address] PCP - General 10/26/12 documented as of this encounter
--- OUTSIDE RECORDS SUMMARY | 2024-06-06 12:27 | XMS_ITS | Encounter Summary ---
Author Organization [facility] [place] [address] Care Team Providers Care Mold Hoister Name Role Phone Farnaz Pineda MD Primary Care Provider [phone] Encounter Details Date Type Department Care Team (Late st Contact Info) Description 02/26/2021 3:00 PM EDT Office [place] [address] Leonardo Barrios MD [facility] [place] [address] Malignant neoplasm of prostate Social History Tobacco [...] metal AVR. ?? 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 Values within this reference interval may indicate recurrence in men who have undergone radical prostatectomy. Blood 03/18/2022 3:07 PM EDT 03/18/2022 3:28 PM EDT Narrative Resulting Agency Comment Spec In Lab Leonardo Barrios MD CHEMISTRY ORDERABL ES [facility] [place] [id number] documented in this encounter Visit Diagnoses Diagnosis Malignant neoplasm of prostate documented in this encounter Care Teams Mold Hoister Relationship Specialty Start Date End Date Farnaz Pineda MD [address] [place] [address] PCP - General 10/26/12 documented as of this encounter
--- OUTSIDE RECORDS SUMMARY | 2024-06-06 12:27 | XMS_ITS | Encounter Summary ---
Author Organization [facility] [place] [address] Care Team Providers Care Unitizer Name Role Phone Farnaz Pineda MD Primary Care Provider [phone] Reason for Visit * Physical Therapy (Routine) - Closed Specialty Diagnoses / Procedures Referred By Berta tavera Referred To Contact Physical Therapy Diagnoses SHELDON (stress urinary incontinence), male Bartolome Pike MD [facility] [place] [address] [facility] [address] [place] [address] Referral ID Status Reason Start Date Expiration Date V isits Requested Visits Authorized [id number] Closed Evaluate and Treat 03/18/2022 03/18/2023 100 100 Encounter Details Date Type Department Care Team (Late st Contact Info) Description 10/19/2022 8:00 AM EST Office Visit Physical Therapy at [address] [place] [address] Alida Jacob, PT [facility] PHYSICAL MEDICINE & [place] [address] Muscle spasm Social History Tobacco Use Types [...] Provider: Bartolome Pike MD Primary Insurance: Payor: [employer] [place] M[place] MEDICARE / Plan: [place] [employer] / Product Type: *No Product type* / [...] using zinc oxide every day -met Goals: shelter goals (3 months) 1. Patient to be [...] muscle documented in this encounter Care Teams Unitizer Relationship Specialty Start Date End Date Farnaz Pineda MD [address] [place] [address] PCP - General 10/26/12 documented as of this encounter
--- OUTSIDE RECORDS SUMMARY | 2024-06-06 12:27 | XMS_ITS | Encounter Summary ---
Author Organization [facility] [place] [address] Care Team Providers Care Paid Search Marketing Strategist Name Role Phone Farnaz Pineda MD Primary Care Provider [phone] Encounter Details Date Type Department Care Team (Late st Contact Info) Description 01/26/2019 Orders [place] [address] Leonardo Barrios MD [facility] [place] [address] Social History Tobacco Use Types Packs/Day Years [...] on filedocumented in this encounter Care Teams Paid Search Marketing Strategist Relationship Specialty Start Date End Date Farnaz Pineda MD [address] [place] [address] PCP - General 10/26/12 documented as of this encounter
--- OUTSIDE RECORDS SUMMARY | 2024-06-06 12:27 | XMS_ITS | Encounter Summary ---
Author Organization [facility] [place] [address] Care Team Providers Care Customer Development Representative Name Role Phone Farnaz Pineda MD Primary Care Provider [phone] Encounter Details Date Type Department Care Team (Late st Contact Info) Description 12/13/2013 12:30 PM EST [place] [phone] Ross Madrid MD [facility] [place] [address] Elevated PSA (Primary Dx); Male erectile dysfunction [...] of clinically high risk prostate cancer (biopsy [place] 4+5=9, PSA 7.1, cT1c). He underwent NNS [...] In Lab Ross Madrid MD CHEMISTRY ORDERABLES [facility] documented in this encounter Visit Diagnoses Diagnosis Elevated PSA- Primary Elevated prostate specific antigen (PSA) Male erectile dysfunction Impotence of organic origin documented in this encounter Care Teams Customer Development Representative Relationship Specialty Start Date End Date Farnaz Pineda MD [address] [place] [address] PCP - General 10/26/12 documented as of this encounter
--- OUTSIDE RECORDS SUMMARY | 2024-06-06 12:27 | XMS_ITS | Encounter Summary ---
Author Organization [facility] [place] [address] Care Team Providers Care Technology And Engineering Teacher Name Role Phone Farnaz Pineda MD Primary Care Provider [phone] Encounter Details Date Type Department Care Team (Latest Contact Info) Description 03/18/2022 3:20 PM EDT Laboratory Appointment Lab [address] [address] Malignant neoplasm of prostate Social [...] (Ultrasensitive ) <0.01 0.00 - 4.00 ng/mL [facility] Comment: PLEASE NOTE: The above reference interval is intended for healthy males with an intact prostate. Values within this reference interval may indicate recurrence in men who have undergone radical prostatectomy. Blood 03/18/2022 3:07 PM EDT 03/18/2022 3:28 PM EDT Narrative Resulting Agency Comment Spec In Lab Leonardo Barrios MD CHEMISTRY ORDERABL ES [facility] [place] [address] documented in this encounter Visit Diagnoses Diagnosis Malignant neoplasm of prostate documented in this encounter Care Teams Technology And Engineering Teacher Relationship Specialty Start Date End Date Farnaz Pineda MD [address] [place] [address] PCP - General 10/26/12 documented as of this encounter
--- OUTSIDE RECORDS SUMMARY | 2024-06-06 12:27 | XMS_ITS | Encounter Summary ---
Author Organization [facility] [place] [address] Care Team Providers Care Street Car Mechanic Name Role Phone Farnaz Pineda MD Primary Care Provider [phone] Encounter Details Date Type Department Care Team (Latest Contact Info) Description 06/14/2013 12:50 PM EDT [place] [phone] Ross Madrid MD [facility] [place] [address] Prostate cancer (Primary Dx); S/P prostatectomy Discharge [...] of clinically high risk prostate cancer (biopsy [place] 4+5=9, PSA 7.1, cT1c). He underwent RALRP/PLND [...] a metal AVR. His path revealed pT3a [place] 3+4=7 disease with tertiary 5, negative margins, negative LN. Today he feels well. His urinary control has improved substantially and he uses a pad per day for safety. Denies gross hematuria. No recurrent erections but +sensitivity. Desires to attempt viagra which he used preoperatively. Exam: S NTND No CVAT PSA: <0.09 in 03/22 <0.1 on 06/08/13 (both values from [facility]) A: Higher risk prostate cancer is ? MADI with mild discrepancy in PSA Stress incontinence is improving Erectile dysfunction P: I [place] today [place] [facility] to evaluate for detectable PSA given the [...] Results * PSA (09/13/2013 11:54 AM EST) Prostate Specific Antigen (Ultrasensitiv e) <0.03 0.00 - 4.00 ng/mL [facility] Blood specimen (specimen) 09/13/2013 11:54 AM EST 09/13/2013 12:08 PM EST Narrative Resulting Agency Comment Spec In Lab Ross Madrid MD CHEMISTRY ORDERABLES [facility] * Differential, Automated (06/14/2013 2:16 PM EDT) Neutrophil % 65.5 34.0 - 71.0 % [facility] Neutrophil Absolute 4.91 1.50 - 6.30 x10(3)/mcL [facility] Lymph % 19.8 19.0 - 53.0 % [facility] Lymphocytes Abs 1.5 1.0 - 3.6 x10(3)/mcL [facility] Monocyte % 6.4 4.0 - 13.0 % [facility] Monocyte Abs 0.5 0.2 - 1.0 x10(3)/mcL [facility] Eos % 6.3 0.0 - 7.0 % [facility] Eosinophils Abs 0.5 0.0 - 0.5 x10(3)/mcL [facility] Basophil % 1.6 0.0 - 2.0 % [facility] Baso Absolute 0.1 0.0 - 0.2 x10(3)/mcL [facility] Immature Gran % 0.40 0.00 - 0.66 % [facility] Comment: Immature granulocytes(IG's)percentage and absolute count will include metamyelocytes, myelocytes, and promyelocytes. Blood smears from CBCs yielding IG's will be scanned manually for concordance. If this scan disagrees with the automated IG or if promyelocytes are noted, a manual differential will be performed. Immature Gran Absolute 0.03 0.00 - 0.05 x10(3)/mcL [facility] Blood specimen (specimen) 06/14/2013 2:16 PM EDT 06/14/2013 2:26 PM EDT Ross Madrid MD [facility]ATOLOGY [facility]ABLE [facility] * (ABNORMAL) CBC (with Diff) (06/14/2013 2:16 PM EDT) White Blood Cell 7.5 4.0 - 10.0 x10(3)/mc L [facility] MILLENNIUM Red Blood Cell 5.09 4.63 - 6.08 x10(6)/mc L [facility] Hemoglobin 15.3 13.7 - 17.5 gm/dL [facility] Hematocrit 48.5 40.0 - 51.0 % [facility] MILLENNIUM Mean Cell Volume 95.3(H) 79.0 - 92.0 fL [facility] MILLENNIUM Mean Cell Hemoglobin 30.1 25.6 - 32.2 pg [facility] MILLENNIUM Mean Cell Hemoglobin Concentration 31.5(L) 32.0 - 36.5 gm/dL [facility]ILLENNI[facility] Platelet 216 145 - 370 x10(3)/mc L [facility] MILLENNIUM RDW Standard Deviation 59.2(H) 35.0 - 46.0 fL [facility] MILLENNIUM RDW coefficient of variation 17.1(H) 10.9 - 14.4 % [facility] MILLENNIUM Mean Platelet Volume 10.3 9.0 - 12.0 fL [facility] Blood specimen (specimen) 06/14/2013 2:16 PM EDT 06/14/2013 2:26 PM EDT Narrative Resulting Agency Comment Spec In Lab Ross Madrid MD HEMATOLOGY ORDERABLE S Performing Organization Address City/[facility] Co de Phone Number DANETTE PRIDEIUM * PSA (06/14/2013 2:16 PM EDT) Prostate Specific Antigen (Ultrasensitiv e) <0.03 0.00 - 4.00 ng/mL [facility] MILLENNIUM Blood specimen (specimen) 06/14/2013 2:16 PM EDT 06/14/2013 2:26 PM EDT Narrative Resulting Agency Comment Spec In Lab Ross Madrid MD CHEMISTRY ORDERABLES Performing Organization Address [facility] Co de Phone Number DANETTE VALENCIA documented in this encounter Visit Diagnoses Diagnosis Prostate cancer- Primary Malignant neoplasm of prostate S/P prostatectomy Other postprocedural status documented in this encounter Care Teams Street Car Mechanic Relationship Specialty Start Date End Date Farnaz Pineda MD [address] [place] [address] PCP - General 10/26/12 documented as of this encounter
--- OUTSIDE RECORDS SUMMARY | 2024-06-06 12:27 | XMS_ITS | Clinical Summary ---
Author Organization [facility] [place] [address] Care Team Providers Care Event Marketing Representative Name Role Phone Farnaz Pineda MD Primary Care Provider [phone] Allergies No known active allergies Medications Medication [...] is based on Patients wishes. Care Teams Event Marketing Representative Relationship Specialty Start Date End Date Farnaz Pineda MD [address] [place] [address] PCP - General 10/26/12
--- OUTSIDE RECORDS SUMMARY | 2024-06-06 12:27 | XMS_ITS | Encounter Summary ---
Author Organization [facility] [place] [address] Care Team Providers Care English Lecturer Name Role Phone Farnaz Pineda MD Primary Care Provider [phone] Encounter Details Date Type Department Care Team (Late st Contact Info) Description 01/26/2016 3:00 PM EDT [place] [phone] Ross Madrid MD [facility] [place] [address] Malignant neoplasm of prostate Social History Tobacco [...] prostate documented in this encounter Care Teams English Lecturer Relationship Specialty Start Date End Date Farnaz Pineda MD [address] [place] [address] PCP - General 10/26/12 documented as of this encounter
--- OUTSIDE RECORDS SUMMARY | 2024-06-06 12:27 | XMS_ITS | Encounter Summary ---
Author Organization [facility] [place] [address] Care Team Providers Care Monorail Car Operator Name Role Phone Farnaz Pineda MD Primary Care Provider [phone] Encounter Details Date Type Department Care Team (Late st Contact Info) Description 03/23/2022 10:40 AM EDT TH Visit (TeleHealth) [place] [phone] Leonardo Barrios MD [facility] [place] [address] Malignant neoplasm of prostate Social History Tobacco [...] of clinically high risk prostate cancer (biopsy [place] 4+5=9, PSA 7.1, cT1c). He underwent NNS [...] metal AVR. ?? His path revealed pT3a [place] 3+4=7 disease with tertiary 5, negative margins, [...] prostate documented in this encounter Care Teams Monorail Car Operator Relationship Specialty Start Date End Date Farnaz Pineda MD [address] [place] [address] PCP - General 10/26/12 documented as of this encounter
--- OUTSIDE RECORDS SUMMARY | 2024-06-06 12:27 | XMS_ITS | Encounter Summary ---
Author Organization [facility] [place] [address] Care Team Providers Care Ic Designer Custom Name Role Phone Farnaz Pineda MD Primary Care Provider [phone] Reason for Referral * Physical Therapy (Routine) - Closed Specialty Diagnoses / Procedures Referred By Berta tavera Referred To Contact Physical Therapy Diagnoses SHELDON (stress urinary incontinence), male Bartolome Pike MD [facility] [place] [place] [address] [facility] [address] [address] [place] [address] Referral ID Status Reason Start Date Expiration Date V isits Requested Visits Authorized [id number] Closed Evaluate and Treat 03/18/2022 03/18/2023 100 100 Encounter Details Date Type Department Care Team (Late st Contact Info) Description 03/18/2022 4:20 PM EDT Office [place] [address] Bartolome Pike MD [facility] [place] [address] SHELDON (stress urinary incontinence), male [...] male documented in this encounter Care Teams Ic Designer Custom Relationship Specialty Start Date End Date Farnaz Pineda MD [address] [place] [address] PCP - General 10/26/12 documented as of this encounter
--- OUTSIDE RECORDS SUMMARY | 2024-06-06 12:27 | XMS_ITS | Encounter Summary ---
Author Organization [facility] [address] Care Team Providers Care Lower In Supervisor Name Role Phone Farnaz Pineda MD Primary Care Provider [phone] Encounter Details Date Type Department Care Team (Late st Contact Info) Description 12/23/2017 [place] [phone] Leonardo Barrios MD [facility] [place] [address] Elevated PSA Social History Tobacco Use Types [...] Results * PSA (01/19/2018 1:09 PM EDT) Prostate Specific Antigen (Ultrasensitiv e) <0.01 0.00 - 4.00 ng/mL [facility] Blood specimen (specimen) 01/19/2018 1:09 PM EDT 01/19/2018 1:18 PM EDT Narrative Resulting Agency Comment Spec In Lab Leonardo Barrios MD CHEMISTRY ORDERABL ES [facility] [address] documented in this encounter Visit Diagnoses Diagnosis Elevated PSA Elevated prostate specific antigen (PSA) documented in this encounter Care Teams Lower In Supervisor Relationship Specialty Start Date End Date Farnaz Pineda MD [address] [place] [address] PCP - General 10/26/12 documented as of this encounter
--- OUTSIDE RECORDS SUMMARY | 2024-06-06 12:27 | XMS_ITS | Encounter Summary ---
Author Organization [facility] [place] [address] Care Team Providers Care Last Cleaner Name Role Phone Farnaz Pineda MD Primary Care Provider [phone] Encounter Details Date Type Department Care Team (Late st Contact Info) Description 07/16/2019 1:20 PM EDT Laboratory Appointment Lab [address] [place] [address] Elevated PSA Social History Tobacco [...] (Ultrasensitiv e) <0.01 0.00 - 4.00 ng/mL [facility] Blood specimen (specimen) 07/16/2019 1:33 PM EDT 07/16/2019 1:37 PM EDT Narrative Resulting Agency Comment Spec In Lab Leonardo Barrios MD CHEMISTRY ORDERABL ES [facility] [place] [address] documented in this encounter Visit Diagnoses Diagnosis Elevated PSA Elevated prostate specific antigen (PSA) documented in this encounter Care Teams Last Cleaner Relationship Specialty Start Date End Date Farnaz Pineda MD [address] [place] [address] PCP - General 10/26/12 documented as of this encounter
--- OUTSIDE RECORDS SUMMARY | 2024-06-06 12:27 | XMS_ITS | Encounter Summary ---
Author Organization [facility] [place] [address] Care Team Providers Care Food And Beverage Manager Name Role Phone Farnaz Pineda MD Primary Care Provider [phone] Encounter Details Date Type Department Care Team (Late st Contact Info) Description 06/20/2014 12:30 PM EDT [place] [phone] Ross Madrid MD [facility] [place] [address] Elevated PSA (Primary Dx) Discharge Disposition: Home [...] of clinically high risk prostate cancer (biopsy [place] 4+5=9, PSA 7.1, cT1c). He underwent NNS [...] Results * PSA (06/20/2014 1:16 PM EDT) Prostate Specific Antigen (Ultrasensitiv e) <0.03 0.00 - 4.00 ng/mL [facility]ENC[facility] Blood specimen (specimen) 06/20/2014 1:16 PM EDT 06/20/2014 1:22 PM EDT Narrative Resulting Agency Comment Spec In Lab Ross Madrid MD CHEMISTRY ORDERABLES [facility] documented in this encounter Visit Diagnoses Diagnosis Elevated PSA- Primary Elevated prostate specific antigen (PSA) documented in this encounter Care Teams Food And Beverage Manager Relationship Specialty Start Date End Date Farnaz Pineda MD [address] [place] [address] PCP - General 10/26/12 documented as of this encounter
--- OUTSIDE RECORDS SUMMARY | 2024-06-06 12:27 | XMS_ITS | Encounter Summary ---
Author Organization [facility] [place] [address] Care Team Providers Care Power Cutting Machine Operator Name Role Phone Farnaz Pineda MD Primary Care Provider [phone] Encounter Details Date Type Department Care Team [...] on filedocumented in this encounter Care Teams Power Cutting Machine Operator Relationship Specialty Start Date End Date Farnaz Pineda MD [address] [place] [address] PCP - General 10/26/12 documented as of this encounter
--- OUTSIDE RECORDS SUMMARY | 2024-06-06 12:27 | XMS_ITS | Encounter Summary ---
Author Organization [facility] [place] [address] Care Team Providers Care Circular Sawyer Stone Name Role Phone Farnaz Pineda MD Primary Care Provider [phone] Encounter Details Date Type Department Care Team (Latest Contact Info) Description 07/19/2018 2:20 PM EDT [place] [phone] Bartolome Pike MD [facility] [place] [address] Erectile dysfunction following radical prostatectomy Social History [...] Erectile dysfunction following radical prostatectomy MRSA CULTURE ([facility]/CGP/APD/NLH) Routine 07/19/2018 5:04 PM EDT Erectile dysfunction following radical prostatectomy HEMOGRAM Routine 07/19/2018 3:25 PM EDT Erectile dysfunction following radical prostatectomy DIFFERENTIAL, AUTOMATED Routine 07/19/2018 3:25 PM EDT Erectile dysfunction following radical prostatectomy CBC (WITH DIFF) Routine 07/19/2018 3:25 PM EDT Erectile dysfunction following radical prostatectomy BASIC METABOLIC PANEL Routine 07/19/2018 3:25 PM EDT Erectile dysfunction [...] GENER AL ORDERABLES [facility] [place] [address] * (ABNORMAL) Staph aureus/MRSA Culture Screen Nasal [...] Sensitive Comment:Gentamicin i s not appropriate for Hood-therapy. Staphylococcus aureus Levofloxacin MICROSCAN METHOD Sensitive Staphylococcus [...] GENER AL ORDERABLES [facility] [place] [address] * (ABNORMAL) Differential, Automated (07/19/2018 3:25 PM EDT) Neutrophil % 64.1 % [facility] Neutrophil Absolute 5.12 1.70 - 6.10 x10(3)/[facility] LABORAT[facility] Lymph % 16.8 % [facility] Lymphocytes Abs 1.3 0.9 - 3.2 x10(3)/[facility] LABORATORY Monocyte % 9.5 % [facility] Monocyte Abs 0.8 0.3 - 0.9 x10(3)/[facility] LABORATORY Eos % 7.8 % [facility] Eosinophils Abs 0.6(H) 0.0 - 0.4 x10(3)/[facility] LABORATORY Basophil % 1.3 % [facility] Baso Absolute 0.1 0.0 - 0.1 x10(3)/[facility] LABORATORY Immature Gran % 0.50 % [facility] Comment: Immature granulocytes(IG's)percentage and absolute count will include metamyelocytes, myelocytes, and promyelocytes. Blood smears from CBCs yielding IG's will be scanned manually for concordance. If this scan disagrees with the automated IG or if promyelocytes are noted, a manual differential will be performed. Immature Gran Absolute 0.04 0.00 - 0.04 x10(3)/[facility] LABORATORY Blood specimen (specimen) 07/19/2018 3:25 PM EDT 07/19/2018 3:42 PM EDT Narrative Resulting Agency Comment Spec In Lab Bartolome Pike MD HEMATOLOGY ORDERABLE S [facility] [place] [address] * (ABNORMAL) Hemogram (07/19/2018 3:25 PM EDT) White Blood Cell 8.0 4.0 - 9.5 x10(3)/[facility] LABORATORY Red Blood Cell 4.80 4.58 - 5.54 x10(6)/mc L [facility] Hemoglobin 14.5 13.7 - 16.5 gm/dL [facility] Hematocrit 45.9 40.5 - 48.5 % [facility] Mean Cell Volume 95.6(H) 82.9 - 93.1 fL [facility] Mean Cell Hemoglobin 30.2 27.5 - 32.1 pg [facility] Mean Cell Hemoglobin Concentration 31.6(L) 32.0 - 35.7 gm/dL [facility] Platelet 249 145 - 357 x10(3)/mc L [facility] RDW Standard Deviation 56.1(H) 36.0 - 45.0 [facility] LABORATORY RDW coefficient of variation 15.7(H) 11.4 - 13.8 % [facility] Mean Platelet Volume 10.0 7.6 - 12.9 [facility] LABORATORY NRBC% auto 0.0 % [facility] NRBC Absolute 0.000 0.000 - 0.000 x10(3)/mc L [facility] Blood specimen (specimen) 07/19/2018 3:25 PM EDT 07/19/2018 3:42 PM EDT Narrative Resulting Agency Comment Spec In Lab Bartolome Pike MD HEMATOLOGY ORDERABLE S [facility] [place] [address] * (ABNORMAL) Basic Metabolic Panel (non-fasting) (07/19/2018 3:25 PM EDT) Glucose 89 65 - 199 mg/dL [facility] Comment:Diabetes: >=200 mg/d L plus symptoms Blood Urea Nitrogen 24(H) 10 - 20 mg/dL [facility] [...] - 107 mmol/L [facility] Carbon Dioxide 25 22 - 31 mmol/L [facility] Anion Gap 14 5 - 15 mmol/L [facility] Calcium 9.6 8.5 - 10.5 mg/dL [facility] Est Glomerular Filtration Rate 59(L) >=60 mL/min/1. 73 m?? [facility] Comment: The eGFR was calculated using the CKD-EPI equation. As with all creatinine based estimates of kidney function, eGFR values calculated with the CKD-EPI equation are not accurate in patients with acute kidney failure, extremes of body mass or the acutely ill. http://Dynamic Yield/[facility] eGFR 69 >=60 mL/min/1. 73 m?? [facility] Comment: The eGFR was calculated using the CKD-EPI equation. As with all creatinine based estimates of kidney function, eGFR values calculated with the CKD-EPI equation are not accurate in patients with acute kidney failure, extremes of body mass or the acutely ill. http://[employer] Y[employer]/DHnkf Blood specimen (specimen) 07/19/2018 3:25 PM EDT 07/19/2018 3:42 PM EDT Narrative Resulting Agency Comment Spec In Lab Bartolome Pike MD CHEMISTRY ORDERABLES [facility] [place] [address] * EKG 12 Lead (07/19/2018 3:07 PM EDT) Ventricular rate 68 BPM MUSE SYSTEM Atrial Rate 68 BPM MUSE SYSTEM P-R Interval 176 ms MUSE SYSTEM QRS Duration 106 ms MUSE SYSTEM Q-T Interval 416 ms MUSE SYSTEM QTC Calculated (Bezet) 442 ms MUSE SYSTEM Calculated P [place] 36 degrees MUSE SYSTEM Calculated R [place] 0 degrees MUSE SYSTEM Calculated T [place] 80 degrees MUSE SYSTEM INTERPRETATION Normal sinus rhythm Possible Inferior infarct , age undetermined Abnormal ECG When compared with ECG of 02-NOV-2012 13:39, No significant change was found Confirmed by MD MARR SALVATORE ([id number]) on 07/20/2018 9:18:14 PM MUSE SYSTEM 07/19/2018 3:07 PM EDT 07/20/2018 9:18 PM EDT Bartolome Pike MD ECG ORDERABLES MUSE SYSTEM documented in this encounter Visit Diagnoses Diagnosis Erectile dysfunction following radical prostatectomy Impotence of organic origin documented in this encounter Care Teams Circular Sawyer Stone Relationship Specialty Start Date End Date Farnaz Pineda MD [address] [place] [address] PCP - General 10/26/12 documented as of this encounter
--- OUTSIDE RECORDS SUMMARY | 2024-06-06 12:27 | XMS_ITS | Encounter Summary ---
Author Organization [facility] [place] [address] Care Team Providers Care Behavioral Health Counselor Name Role Phone Farnaz Pineda MD Primary Care Provider [phone] Reason for Visit * Physical Therapy (Routine) - Closed Specialty Diagnoses / Procedures Referred By Berta tavera Referred To Contact Physical Therapy Diagnoses SHELDON (stress urinary incontinence), male Bartolome Pike MD [facility] [place] [address] [facility] [address] [place] [address] Referral ID Status Reason Start Date Expiration Date V isits Requested Visits Authorized [id number] Closed Evaluate and Treat 03/18/2022 03/18/2023 100 100 Encounter Details Date Type Department Care Team (Late st Contact Info) Description 07/06/2022 2:00 PM EDT Office Visit Physical Therapy at [address] [place] [address] Lolita Jacob, PT [facility] [place] [address] SHELDON (stress urinary incontinence), male Social History [...] Provider: Bartolome Pike MD Primary Insurance: Payor: [employer] [facility] MEDICARE / Plan: [place] [employer] / Product Type: *No Product type* / [...] by using zinc oxide every day Goals: extermination inspector goals (3 months) 1. Patient to be [...] male documented in this encounter Care Teams Behavioral Health Counselor Relationship Specialty Start Date End Date Farnaz Pineda MD [address] [place] [address] PCP - General 10/26/12 documented as of this encounter
--- OUTSIDE RECORDS SUMMARY | 2024-06-06 12:27 | XMS_ITS | Encounter Summary ---
Author Organization Count Includes [facility] [place] [address] Care Team Providers Care Atlassian Administrator Name Role Phone Farnaz Pineda MD Primary Care Provider [phone] Encounter Details Date Type Department Care Team (Late st Contact Info) Description 06/12/2014 [place] [phone] Ross Madrid MD [facility] [place] [address] Elevated PSA (Primary Dx) Social History Tobacco [...] 4.00 ng/mL [facility] Blood specimen (specimen) 06/20/2014 1:16 PM EDT 06/20/2014 1:22 PM EDT Narrative Resulting Agency Comment Spec In Lab Ross Madrid MD CHEMISTRY ORDERABLES [facility] documented in this encounter Visit Diagnoses Diagnosis Elevated PSA- Primary Elevated prostate specific antigen (PSA) documented in this encounter Care Teams Atlassian Administrator Relationship Specialty Start Date End Date Farnaz Pineda MD [address] [place] [address] PCP - General 10/26/12 documented as of this encounter
--- OUTSIDE RECORDS SUMMARY | 2024-06-06 12:27 | XMS_ITS | Encounter Summary ---
Author Organization [facility] [place] [address] Care Team Providers Care Medical Review Specialist Name Role Phone Farnaz Pineda MD Primary Care Provider [phone] Encounter Details Date Type Department Care Team (Late st Contact Info) Description 01/19/2018 1:40 PM EDT [place] [phone] Leonardo Barrios MD [facility] [place] [address] Malignant neoplasm of prostate Social History Tobacco [...] metal AVR. ?? His path revealed pT3a [place] 3+4=7 disease with tertiary 5, negative margins, [...] prostate documented in this encounter Care Teams Medical Review Specialist Relationship Specialty Start Date End Date Farnaz Pineda MD [address] [place] [address] PCP - General 10/26/12 documented as of this encounter
--- OUTSIDE RECORDS SUMMARY | 2024-06-06 12:27 | XMS_ITS | Encounter Summary ---
Author Organization [facility] [address] Care Team Providers Care Butter Printer Name Role Phone Farnaz Pinead MD Primary Care Provider [phone] Encounter Details Date Type Department Care Team (Latest Contact Info) Description 02/26/2021 2:00 PM EDT Laboratory Appointment Lab [address] [address] Malignant neoplasm of prostate Social [...] (Ultrasensitive ) <0.01 0.00 - 4.00 ng/mL [facility] Comment: PLEASE NOTE: The above reference interval is intended for healthy males with an intact prostate. Values within this reference interval may indicate recurrence in men who have undergone radical prostatectomy. Blood 02/26/2021 2:31 PM EDT 02/26/2021 3:00 PM EDT Narrative Resulting Agency Comment Spec In Lab Leonardo Barrios MD CHEMISTRY ORDERABL ES [facility] [place] [address] documented in this encounter Visit Diagnoses Diagnosis Malignant neoplasm of prostate documented in this encounter Care Teams Butter Printer Relationship Specialty Start Date End Date Farnaz Pineda MD [address] [place] [address] PCP - General 10/26/12 documented as of this encounter
--- OUTSIDE RECORDS SUMMARY | 2024-06-06 12:27 | XMS_ITS | Encounter Summary ---
Author Organization [facility] [place] [address] Care Team Providers Care Block Layer Name Role Phone Farnaz Pineda MD Primary Care Provider [phone] Encounter Details Date Type Department Care Team (Late st Contact Info) Description 03/22/2018 [place] [phone] Bartolome Pike MD [facility] [place] [address] Social History Tobacco Use Types Packs/Day Years [...] on filedocumented in this encounter Care Teams Block Layer Relationship Specialty Start Date End Date Farnaz Pineda MD [address] [place] [address] PCP - General 10/26/12 documented as of this encounter
--- OUTSIDE RECORDS SUMMARY | 2024-06-06 12:27 | XMS_ITS | Encounter Summary ---
Author Organization [facility] [place] [address] Care Team Providers Care 3D Designer Name Role Phone Farnaz Pineda MD Primary Care Provider [phone] Encounter Details Date Type Department Care Team (Late st Contact Info) Description 09/13/2013 12:30 PM EST [place] [phone] Ross Madrid MD [facility] [place] [address] Prostate cancer (Primary Dx) Discharge Disposition: Home [...] of clinically high risk prostate cancer (biopsy [place] 4+5=9, PSA 7.1, cT1c). He underwent RALRP/PLND [...] a metal AVR. His path revealed pT3a [place] 3+4=7 disease with tertiary 5, negative margins, [...] e) <0.03 0.00 - 4.00 ng/mL [facility] Blood specimen (specimen) 09/13/2013 11:54 AM EST 09/13/2013 12:08 PM EST Narrative Resulting Agency Comment Spec In Lab Ross Madrid MD CHEMISTRY ORDERABLES [facility] documented in this encounter Visit Diagnoses Diagnosis Prostate cancer- Primary Malignant neoplasm of prostate documented in this encounter Care Teams 3D Designer Relationship Specialty Start Date End Date Farnaz Pineda MD [address] [place] [address] PCP - General 10/26/12 documented as of this encounter
--- OUTSIDE RECORDS SUMMARY | 2024-06-06 12:27 | XMS_ITS | Encounter Summary ---
Author Organization [facility] [place] [address] Care Team Providers Care Auto Tune Up Mechanic Name Role Phone Farnaz Pineda MD Primary Care Provider [phone] Encounter Details Date Type Department Care Team (Late st Contact Info) Description 01/27/2016 [place] [phone] Ross Madrid MD [facility] [place] [address] Social History Tobacco Use Types Packs/Day Years [...] on filedocumented in this encounter Care Teams Auto Tune Up Mechanic Relationship Specialty Start Date End Date Farnaz Pineda MD [address] [place] [address] PCP - General 10/26/12 documented as of this encounter
--- OUTSIDE RECORDS SUMMARY | 2024-06-06 12:27 | XMS_ITS | Encounter Summary ---
Author Organization [facility] [place] [address] Care Team Providers Care Rental Sales Agent Name Role Phone Farnaz Pineda MD Primary Care Provider [phone] Encounter Details Date Type Department Care Team (Late st Contact Info) Description 01/13/2015 [place] [phone] Ross Madrid MD [facility] [place] [address] Prostate cancer Social History Tobacco Use Types [...] (Ultrasensiti ve) <0.03 0.00 - 4.00 ng/mL [facility] Prostate Specific Antigen, Free <0.1 ng/mL [facility] MILLENNIUM PSA % Free Not Calculated [facility] Comment: Probability of finding SKIN PEELING MACHINE OPERATOR on needle biopsy by age in years: [...] In Lab Ross Madrid MD CHEMISTRY ORDERABLES [facility] documented in this encounter Visit Diagnoses Diagnosis Prostate cancer Malignant neoplasm of prostate documented in this encounter Care Teams Rental Sales Agent Relationship Specialty Start Date End Date Farnaz Pineda MD [address] [place] [address] PCP - General 10/26/12 documented as of this encounter
--- OUTSIDE RECORDS SUMMARY | 2024-06-06 12:27 | XMS_ITS | Encounter Summary ---
Author Organization [facility] [place] [address] Care Team Providers Care Processing Engineer Name Role Phone Farnaz Pineda MD Primary Care Provider Encounter Details Date Type Department Care Team (Latest Contact Info) Description 03/17/2018 1:40 PM EDT Office [place] [phone] Bartolome Bruce MD [facility] [place] [address] Left groin mass; Erectile dysfunction following radical [...] 40 minutes of our appointment in extensive [id number] counseling regarding his ED. I will keep [...] 03:55 pm) PATIENT INFO: ID #: ? [id number] ?: ??[birth year] (68 yrs) Name: ? DILLAN AL ? Visit Date: 03/21/2018 03:01 pm PERFORMED BY: Performed By: ? Farnaz Jonas RDMS Attending: ?Anita Noriega MD Referred By: ?BARTOLOME Botello GROSS Location: ? [place] SERVICE(S) PROVIDED: ??UEXTLMTL - Extremity Limited Non Vascular - Left ?[id number] ??- [id number] INDICATIONS: ??? L inguinal hernia --------- FINDINGS: --------- Title: ? Ultrasound Report Procedure Note Anita Lea MD - 03/21/2018 Ultrasound Report (Signed Final 03/21/2018 03:55 pm) PATIENT INFO: ID #: [id number] : 50 (68 yrs) Name: DILLAN AL Visit Date: 03/21/2018 03:01 pm PERFORMED BY: Performed By: Farnaz Jonas RDMS Attending: Anita Noriega MD Referred By: BARTOLOME BRUCE Location: [place] SERVICE(S) PROVIDED: UEXTLMTL - Extremity Limited Non Vascular - Left [id number] - [id number] INDICATIONS: ? L inguinal hernia --------- FINDINGS: --------- Title: Ultrasound Report IMPRESSION No prior studies available for comparison.There is a left inguinal hernia with echogenic tubular structure representing afat-containing hernia versus decompressed bowel with small amount of luminalair. No discrete peristalsis identified during this exam. Aniat Mccormack MD Electronically Signed Final Report 03/21/2018 03:55 pm Bartolome Bruce MD IMG US GEN ORDERABLE S documented in this encounter Visit Diagnoses Diagnosis Left groin mass Erectile dysfunction following radical prostatectomy Impotence of organic origin Left groin mass documented in this encounter Care Teams Processing Engineer Relationship Specialty Start Date End Date Farnza Pineda MD [address] [place] [address] PCP - General 10/26/12 documented as of this encounter
--- OUTSIDE RECORDS SUMMARY | 2024-06-06 12:27 | XMS_ITS | Encounter Summary ---
Author Organization [facility] [place] [address] Care Team Providers Care Scallop Raker Name Role Phone Farnaz Pineda MD Primary Care Provider [phone] Encounter Details Date Type Department Care Team (Late st Contact Info) Description 01/19/2018 12:40 PM EDT Laboratory Appointment Lab [address] [place] [address] Elevated PSA Social History Tobacco [...] (Ultrasensitiv e) <0.01 0.00 - 4.00 ng/mL [facility] Blood specimen (specimen) 01/19/2018 1:09 PM EDT 01/19/2018 1:18 PM EDT Narrative Resulting Agency Comment Spec In Lab Leonardo Barrios MD CHEMISTRY ORDERABL ES [facility] [place] [address] documented in this encounter Visit Diagnoses Diagnosis Elevated PSA Elevated prostate specific antigen (PSA) documented in this encounter Care Teams Scallop Raker Relationship Specialty Start Date End Date Farnaz Pineda MD [address] [place] [address] PCP - General 10/26/12 documented as of this encounter
--- OUTSIDE RECORDS SUMMARY | 2024-06-06 12:27 | XMS_ITS | Encounter Summary ---
Author Organization [facility] [place] [address] Care Team Providers Care Health Administration Teacher Name Role Phone Farnaz Pineda MD Primary Care Provider [phone] Encounter Details Date Type Department Care Team (Late st Contact Info) Description 08/10/2018 Telephone Urology at [address] [address] Charley Higgins RN Social History [...] on filedocumented in this encounter Care Teams Health Administration Teacher Relationship Specialty Start Date End Date Farnaz Pineda MD [address] [place] [address] PCP - General 10/26/12 documented as of this encounter
--- OUTSIDE RECORDS SUMMARY | 2024-06-06 12:27 | XMS_ITS | Encounter Summary ---
Author Organization [facility] [place] [address] Care Team Providers Care Toe Sewer Name Role Phone Farnaz Pineda MD Primary Care Provider [phone] Encounter Details Date Type Department Care Team [...] on filedocumented in this encounter Care Teams Toe Sewer Relationship Specialty Start Date End Date Farnaz Pineda MD [address] [place] [address] PCP - General 10/26/12 documented as of this encounter
--- OUTSIDE RECORDS SUMMARY | 2024-06-06 12:27 | XMS_ITS | Encounter Summary ---
Author Organization [facility] [place] [address] Care Team Providers Care Joint Finisher Name Role Phone Farnaz Pineda MD Primary Care Provider [phone] Encounter Details Date Type Department Care Team (Latest Contact Info) Description 01/26/2016 2:00 PM EDT Laboratory [place] [address] Malignant neoplasm of prostate Social [...] CHEMISTRY ORDERABLES [facility] [place] [address] documented in this encounter Visit Diagnoses Diagnosis Malignant neoplasm of prostate documented in this encounter Care Teams Joint Finisher Relationship Specialty Start Date End Date Farnaz Pineda MD [address] [place] [address] PCP - General 10/26/12 documented as of this encounter
--- OUTSIDE RECORDS SUMMARY | 2024-06-06 12:27 | XMS_ITS | Encounter Summary ---
Author Organization [facility] [place] [address] Care Team Providers Care Fisheries Inspector Name Role Phone Farnaz Pineda MD Primary Care Provider Reason for Visit * Reason Comments Medication Refill Encounter Details Date Type Department Care Team (Late st Contact Info) Description 01/22/2022 [place] [phone] Leonardo Barrios MD [facility] [place] [address] Social History Tobacco Use Types Packs/Day Years [...] on filedocumented in this encounter Care Teams Fisheries Inspector Relationship Specialty Start Date End Date Farnaz Pineda MD [address] [place] [address] PCP - General 10/26/12 documented as of this encounter
--- OUTSIDE RECORDS SUMMARY | 2024-06-06 12:28 | XMS_ITS | Encounter Summary ---
Author Organization [facility] [place] [address] Care Team Providers Care Contract Administration Specialist Name Role Phone Farnaz Pineda MD Primary Care Provider [phone] Encounter Details Date Type Department Care Team (Late st Contact Info) Description 03/07/2013 9:00 AM EDT [place] [address] Encounter for removal of urinary [...] device documented in this encounter Care Teams Contract Administration Specialist Relationship Specialty Start Date End Date Farnaz Pineda MD [address] [place] [address] PCP - General 10/26/12 documented as of this encounter
--- OUTSIDE RECORDS SUMMARY | 2024-06-06 12:28 | XMS_ITS | Encounter Summary ---
Author Organization [facility] [place] [address] Care Team Providers Care Electric Meter Technician Name Role Phone Farnaz Pineda MD Primary Care Provider [phone] Encounter Details Date Type Department Care Team (Latest Contact Info) Description 02/08/2013 8:51 AM EDT - 02/08/2013 11:59 PM EDT [place] [phone] Jim Martell MD [facility] DIAGNOSTIC [place] [address] S/P AVR (aortic valve replacement) Discharge Disposition: [...] * (ABNORMAL) APTT (02/08/2013 9:00 AM EDT) Partial Thromboplastin Time 60(H) 25 - 35 sec CERNER MILLENNIUM Comment: Recommended therapeutic PTT range for full dose unfractionated heparin is 80-114 seconds. Blood specimen (specimen) 02/08/2013 9:00 AM EDT 02/08/2013 9:03 AM EDT Narrative Resulting Agency Comment Spec In Lab Jim Martell MD HEMATOLOGY ORDERABLE S Performing Organization Address [facility] de Phone Number DANETTE VALENCIA * (ABNORMAL) Prothrombin Time (02/08/2013 9:00 AM EDT) Prothrombin Time 25.6(H) 12.0 - 15.0 sec CERNER MILLENNIUM Comment: [facility] Transfusion Committee Guidelines: INR less than 2.0, PTT less than OR equal to 43.5 seconds, or Fibrinogen greater than or equal to 100 mg/dl indicate adequate procoagulant activity for hemostasis in patients without underlying bleeding disorders. International Normalization Ratio 2.2(H) 0.9 - 1.1 CERNER MILLENNIUM Blood specimen (specimen) 02/08/2013 9:00 AM EDT 02/08/2013 9:03 AM EDT Narrative Resulting Agency Comment Spec In Lab Jim Martell MD HEMATOLOGY ORDERABLE S Performing Organization Address [facility] Co de Phone Number DANETTE VALENCIA documented in this encounter Visit Diagnoses Diagnosis S/P AVR (aortic valve replacement) Heart valve replaced by other means documented in this encounter Care Teams Electric Meter Technician Relationship Specialty Start Date End Date Farnaz Pineda MD [address] [place] [address] PCP - General 10/26/12 documented as of this encounter
--- OUTSIDE RECORDS SUMMARY | 2024-06-06 12:28 | XMS_ITS | Encounter Summary ---
Author Organization [facility] [place] [address] Care Team Providers Care Boiler Tube Blower Name Role Phone Farnaz Pineda MD Primary Care Provider [phone] Encounter Details Date Type Department Care Team (Late st Contact Info) Description 02/16/2013 11:50 AM EDT [place] [phone] Ross Madrid MD [facility] [place] [address] Abscess (Primary Dx) Discharge Disposition: Home Social [...] PM EDT IR Procedure Note ?? A [id number] ?? Procedure: LLQ pelvic drain injection ?? [...] MD - 03/03/2013 IR Procedure Note A [id number] Procedure: LLQ pelvic drain injection History/indication: 62 [...] site documented in this encounter Care Teams Boiler Tube Blower Relationship Specialty Start Date End Date Farnaz Pineda MD [address] [place] [address] PCP - General 10/26/12 documented as of this encounter
--- OUTSIDE RECORDS SUMMARY | 2024-06-06 12:28 | XMS_ITS | Encounter Summary ---
Author Organization [facility] [place] [address] Care Team Providers Care And Drying Supervisor Cooking Casing Name Role Phone Farnaz Pineda MD Primary Care Provider [phone] Encounter Details Date Type Department Care Team (Late st Contact Info) Description 03/08/2013 Telephone Cardiology at [address] [address] Kathleen Jonas, RN Social History [...] on filedocumented in this encounter Care Teams And Drying Supervisor Cooking Casing Relationship Specialty Start Date End Date Farnaz Pineda MD [address] [place] [address] PCP - General 10/26/12 documented as of this encounter
--- OUTSIDE RECORDS SUMMARY | 2024-06-06 12:28 | XMS_ITS | Encounter Summary ---
Author Organization [facility] [place] [address] Care Team Providers Care Crossbow Maker Name Role Phone Farnaz Pineda MD Primary Care Provider [phone] Encounter Details Date Type Department Care Team (Late st Contact Info) Description 06/13/2013 [place] [phone] Ross Madrid MD [facility] [place] [address] Social History Tobacco Use Types Packs/Day Years [...] on filedocumented in this encounter Care Teams Crossbow Maker Relationship Specialty Start Date End Date aFrnaz Pineda MD [address] [place] [address] PCP - General 10/26/12 documented as of this encounter
--- OUTSIDE RECORDS SUMMARY | 2024-06-06 12:28 | XMS_ITS | Encounter Summary ---
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 No fevers, chills, ns, abdominal pain. Abdominal [...] (from 13x7cm) Impression: Sylvain Rodgers is a 62 y.o. male [...] Section of Infectious Disease and International Health [phone] minutes were spent in this face [...] procedure documented in this encounter Care Teams Log Haul Operator Relationship Specialty Start Date End Date Farnaz Pineda MD [address] [place] [address] PCP - General 10/26/12 documented as of this encounter
--- OUTSIDE RECORDS SUMMARY | 2024-06-06 12:28 | XMS_ITS | Encounter Summary ---
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 No fevers, chills, ns, abdominal pain. Abdominal [...] Section of Infectious Disease and International Health [phone] minutes were spent in this face to face encounter, 20 minutes counseling about pelvic abscess mgmt. documented in this encounter Plan of Treatment Not on file documented as of this encounter Visit Diagnoses Diagnosis Abdominal abscess- Primary Peritoneal abscess documented in this encounter Care Teams Bushel Worker Relationship Specialty Start Date End Date Farnaz Pineda MD [address] [place] [address] PCP - General 10/26/12 documented as of this encounter
--- OUTSIDE RECORDS SUMMARY | 2024-06-06 12:28 | XMS_ITS | Encounter Summary ---
Author Organization [facility] [place] [address] Care Team Providers Care On Air Personality Name Role Phone Cameron Pineda MD Primary Care Provider [phone] Encounter Details Date Type Department Care Team (Latest Contact Info) Description 02/08/2013 9:06 AM EDT - 02/08/2013 11:59 PM EDT Hospital [place] [address] CLINIC, Jim Bowden MD [facility] [place] [address] S/P AVR (aortic valve replacement) (Primary Dx) [...] Soares RN - 02/05/2013 10:11 AM EDT [facility] NURSING DATABASE Name: DILLAN AL Date of : 1950 AGE 62 y.o. Address: [address] [place] [address] (home) [phone] (work) Mobile: Telephone Information: Referring Provider: Ermias [...] ASSISTED performed by Ross Madrid MD at [facility] MAIN OR ??? Lap, pelvic lymphadenectomy 11/20/2012 LAPAROSCOPY,WITH BILATERAL TOTAL PELVIC LYMPHADENECTOMY, ROBOTIC performed by Ross Madrid MD at [facility] MA[facility] OR ? ? Cystourethroscopy w/irrig & evac clots 12/27/2012 CYSTO, IRRIGATION & EVACUATION OF CLOTS performed by Ross Madrid MD at [facility] OR ??? Ct retroperitoneal abscess [...] rbcS, fluid bolus then Levo started by MANAGER ARCHITECTURAL 02/08/13 Sinogram No meds Laboratory Results: Lab [...] has been informed that they require a regional dedicated truck driver to drive them home after this procedure. In the absence of a regional dedicated truck driver, IR will not be able to perform this procedureand will need to reschedule. Pt verbalized understanding of these instructions during the pre-procedure education via phone. documented in this encounter Procedure Notes * Jim Martell MD - 02/08/2013 10:42 AM EDTProcedure(s): IR ALL DRAINAGE PROCEDURES IR Procedure Note A [id number] Procedure: LLQ abscess drain injection History/indication: 62 [...] IR Procedure Note ?? Accession Number: ?? [id number] ?? Procedure: LLQ abscess drain injection ?? [...] - 02/12/2013 IR Procedure Note Accession Number: [id number] Procedure: LLQ abscess drain injection History/Indication: 62 [...] MD HEMATOLOGY ORDERABLE S Performing Organization Address [facility] Co de Phone Number [email or web address] * (ABNORMAL) Prothrombin Time (02/08/2013 9:00 AM EDT) Prothrombin Time 25.6(H) 12.0 - 15.0 sec CERNER Blue Dot WorldENNIUM Comment: [facility] Transfusion Committee Guidelines: INR less than 2.0, PTT less than OR equal to 43.5 seconds, or Fibrinogen greater than or equal to 100 mg/dl indicate adequate procoagulant activity for hemostasis in patients without underlying bleeding disorders. International Normalization Ratio 2.2(H) 0.9 - 1.1 CERDAKSHA Smart Planet TechnologiesIUM Blood specimen (specimen) 02/08/2013 9:00 AM EDT 02/08/2013 9:03 AM EDT Narrative Resulting Agency Comment Spec In Lab Jim Martell MD HEMATOLOGY ORDERABLE S Performing Organization Address [facility] Co de Phone Number DANETTE HARTMANIndigoVision documented in this encounter Visit Diagnoses Diagnosis [...] on Emma 02/08/13 at 1048, Until Emma 02/08/13 at 1049, Per Protocol, Angio/IR (Intra-Procedure), Routine Given 02/08/2013 10:49 AM EDT 5 mLs documented in this encounter Care Teams On Air Personality Relationship Specialty Start Date End Date Cameron Pineda MD [address] [place] [address] PCP - General 10/26/12 documented as of this encounter
--- OUTSIDE RECORDS SUMMARY | 2024-06-06 12:28 | XMS_ITS | Encounter Summary ---
Author Organization [facility] [place] [address] Care Team Providers Care Bull Ladle Tender Name Role Phone Cameron Pineda MD Primary Care Provider [phone] Encounter Details Date Type Department Care Team (Late st Contact Info) Description 03/02/2013 9:08 AM EDT - 03/02/2013 11:59 PM EDT Hospital [place] [address] Abscess Social History Tobacco Use [...] vein every 4 hours for 30 days. [address]691 mL 0 02/13/2013 03/15/2013 BUDESONIDE/FORMOTEROL FUMARATE (SYMBICORT [...] Sethi RN - 03/01/2013 1:32 PM EDT [facility] NURSING DATABASE Name: DILLAN AL Date of : 1950 AGE 63 y.o. Address: [address] [place] [address] (home) [phone] (work) Mobile: Telephone Information: Referring Provider: Ross [...] performed by Ross Madrid MD at [facility] OR ??? Lap, pelvic lymphadenectomy 11/20/2012 LAPAROSCOPY,WITH BILATERAL TOTAL PELVIC LYMPHADENECTOMY, ROBOTIC performed by Ross Madrid MD at [facility] OR ? ? Cystourethroscopy w/irrig & evac clots 12/27/2012 CYSTO, IRRIGATION & EVACUATION OF CLOTS performed by Ross Madrid MD at [facility] OR ??? Ct retroperitoneal abscess drain 01/24/2013 Date/Procedure Comments: 01-04-13 IVC filter Versed 2.5 mg iv, fentanyl 125 mcg iv, ancef 1 gram iv 01/24/2013 Pelvic embolization and then CT guided pelvic drain placement Fentanyl 125 mcg/iv duglas gttstarted (patient changed to ICU status mid-case), 2 UNITS ffp, 2 UNITS rbcS, fluid bolus then Levo started by MECHANICAL DESIGNER 02/08/13 Sinogram No meds 5/10/13 sinogram No [...] has been informed that they require a cattle driver to drive them home after this procedure. In the absence of a cattle driver, IR will not be able to [...] performed by Ross Madrid MD at [facility] OR ??? Lap, pelvic lymphadenectomy 11/20/2012 LAPAROSCOPY,WITH BILATERAL TOTAL PELVIC LYMPHADENECTOMY, ROBOTIC performed by Ross Madrid MD at [facility] OR ? ? Cystourethroscopy w/irrig & evac clots 12/27/2012 CYSTO, IRRIGATION & EVACUATION OF CLOTS performed by Ross Madrid MD at [facility] OR ??? Ct retroperitoneal abscess drain 01/24/2013 No Known Allergies Current Outpatient Prescriptions on File Prior to Encounter Medication Sig Dispense Refill ??? ciprofloxacin (CIPRO) 500 mg tablet Take 1 tablet by mouth 2 times daily for 14 days. 28 tablet1 ??? penicillin g potassium 4 million units/100 mL PREMIX Inject 100 mLs into the vein every 4 hoursfor 30 days. 45779 mL 0 ??? BUDESONIDE/FORMOTEROL FUMARATE (SYMBICORT INHL) [...] ALL DRAINAGE PROCEDURES IR Procedure Note A [id number] Procedure: LLQ pelvic drain injection History/indication: 62 [...] PM EDT IR Procedure Note ?? A [id number] ?? Procedure: LLQ pelvic drain injection ?? [...] MD - 03/03/2013 IR Procedure Note A [id number] Procedure: LLQ pelvic drain injection History/indication: 62 [...] mLs documented in this encounter Care Teams Bull Ladle Tender Relationship Specialty Start Date End Date Cameron Pineda MD [address] [place] [address] PCP - General 10/26/12 documented as of this encounter
--- OUTSIDE RECORDS SUMMARY | 2024-06-06 12:28 | XMS_ITS | Encounter Summary ---
Author Organization [facility] [place] [address] Care Team Providers Care Neurosurgical Nurse Practitioner Name Role Phone Farnaz Pineda MD Primary Care Provider [phone] Encounter Details Date Type Department Care Team (Latest Contact Info) Description 02/08/2013 11:05 AM EDT - 02/08/2013 11:59 PM EDT Hospital [place] [address] CLINIC, Ermias Roberts MD [facility] [place]ST[place] [address] S/P AVR (aortic valve replacement) Discharge Disposition: [...] mg documented in this encounter Care Teams Neurosurgical Nurse Practitioner Relationship Specialty Start Date End Date Farnaz Pineda MD [address] [place] [address] PCP - General 10/26/12 documented as of this encounter
--- OUTSIDE RECORDS SUMMARY | 2024-06-06 12:28 | XMS_ITS | Encounter Summary ---
Author Organization [facility] [place] [address] Care Team Providers Care Sap Payroll Consultant Name Role Phone Farnaz Pineda MD Primary Care Provider Encounter Details Date Type Department Care Team (Late st Contact Info) Description 01/30/2013 [place] [address] Jaime Berrios [facility] [place] [address] Hematoma - postoperative (Primary Dx) Social History [...] 02/03/2013 10:21 AM EDT Called by resident protein purification scientist, and was asked to call back Mrs. Rodgers, of Sylvain Vishal, who recently had a pelvic drain placed [...] procedure documented in this encounter Care Teams Sap Payroll Consultant Relationship Specialty Start Date End Date Farnaz Pineda MD [address] [place] [address] PCP - General 10/26/12 documented as of this encounter
--- OUTSIDE RECORDS SUMMARY | 2024-06-06 12:28 | XMS_ITS | Encounter Summary ---
Author Organization [facility] [place] [address] Care Team Providers Care Retail Maintenance Technician Name Role Phone Farnaz Pineda MD Primary Care Provider Encounter Details Date Type Department Care Team (Late st Contact Info) Description 02/08/2013 3:40 PM EDT [place] [address] Ross Madrid MD [facility] [place] [address] Hematuria (Primary Dx) Discharge Disposition: Home Social [...] EDT IR Procedure Note ?? Accession Number: [id number] ?? Procedure: LLQ abscess drain injection ?? [...] - 02/16/2013 IR Procedure Note Accession Number: [id number] Procedure: LLQ abscess drain injection History/Indication: 62 [...] unspecified documented in this encounter Care Teams Retail Maintenance Technician Relationship Specialty Start Date End Date Farnaz Pineda MD [address] [place] [address] PCP - General 10/26/12 documented as of this encounter
--- OUTSIDE RECORDS SUMMARY | 2024-06-06 12:28 | XMS_ITS | Encounter Summary ---
Author Organization [facility] [place] [address] Care Team Providers Care Business Investor Name Role Phone Farnaz Pineda MD Primary Care Provider [phone] Reason for Visit * Reason Comments Follow-up Encounter Details Date Type Department Care Team (Late st Contact Info) Description 03/02/2013 1:00 PM EDT [place] [address] CLINIC, Ross De León MD [facility] [place] [address] Abscess (Primary Dx) Discharge Disposition: Home Social [...] site documented in this encounter Care Teams Business Investor Relationship Specialty Start Date End Date Farnaz Pineda MD [address] [place] [address] PCP - General 10/26/12 documented as of this encounter
--- OUTSIDE RECORDS SUMMARY | 2024-06-06 12:28 | XMS_ITS | Encounter Summary ---
Author Organization [facility] [place] [address] Care Team Providers Care Chemicals Distiller Name Role Phone Farnaz Pineda MD Primary Care Provider [phone] Encounter Details Date Type Department Care Team (Late st Contact Info) Description 03/07/2013 9:05 AM EDT [place] [phone] Ross Madrid MD [facility] [place] [address] Prostate cancer (Primary Dx) Discharge Disposition: Home [...] prostate documented in this encounter Care Teams Chemicals Distiller Relationship Specialty Start Date End Date Farnaz Pineda MD [address] [place] [address] PCP - General 10/26/12 documented as of this encounter
--- OUTSIDE RECORDS SUMMARY | 2024-06-06 12:28 | XMS_ITS | Encounter Summary ---
Author Organization [facility] [place] [address] Care Team Providers Care Tamping Machine Operator Road Forms Name Role Phone Cmaeron Pineda MD Primary Care Provider [phone] Encounter Details Date Type Department Care Team (Late st Contact Info) Description 02/16/2013 8:09 AM EDT - 02/16/2013 11:58 PM EDT Hospital [place] [address] Hematuria Social History Tobacco Use [...] Uriostegui RN - 02/16/2013 10:37 AM EDT [facility] Vascular and Interventional Radiology Signs And Symptoms [...] is during regular office hours, please call [phone]. If it is after regular office hours, or on weekends or holidays, please call [phone] and ask to speak to the Heel Caser line production cook for Interventional Radiology. Revised 07/14/12 documented in [...] vein every 4 hours for 30 days. [address]92 mL 0 02/13/2013 03/15/2013 BUDESONIDE/FORMOTEROL FUMARATE (SYMBICORT [...] Carranza RN - 02/16/2013 9:46 AM EDT [facility] NURSING DATABASE Name: DILLAN AL Date of : 1950 AGE 62 y.o. Address: [address] [place] [address] (home) [phone] (work) Mobile: Telephone Information: Referring Provider: Ross [...] ASSISTED performed by Ross Madrid MD at [facility] OR ??? Lap, pelvic lymphadenectomy 11/20/2012 LAPAROSCOPY,WITH BILATERAL TOTAL PELVIC LYMPHADENECTOMY, ROBOTIC performed by Ross Madrid MD at [facility] OR ? ? Cystourethroscopy w/irrig & evac clots 12/27/2012 CYSTO, IRRIGATION & EVACUATION OF CLOTS performed by Ross Madrid MD at [facility] OR ??? Ct retroperitoneal abscess drain 01/24/2013 Date/Procedure Comments: 01-04-13 IVC filter Versed 2.5 mg iv, fentanyl 125 mcg iv, ancef 1 gram iv 01/24/2013 Pelvic embolization and then CT guided pelvic drain placement Fentanyl 125 mcg/iv duglas gttstarted (patient changed to ICU status mid-case), 2 UNITS ffp, 2 UNITS rbcS, fluid bolus then Levo started by ACTING INSTRUCTOR 02/08/13 Sinogram No meds 02/16/13 sinogram No [...] has been informed that they require a emergency medical technician/driver to drive them home after this procedure. In the absence of a emergency medical technician/driver, IR will not be able to perform this procedureand will need to reschedule. Pt verbalized understanding of these instructions during the pre-procedure education via phone. * Julius Servin MD - 02/15/2013 2:26 PM EDT Images from the original note were not included. PRE-PROCEDURE VIR NOTE Date of : 1950 Age: 62 y.o. PCP: CAMERON PINEAD MD Referring Physician (if different): Mercy Indication: [...] ASSISTED performed by Ross Madrid MD at [facility] OR ??? Lap, pelvic lymphadenectomy 11/20/2012 LAPAROSCOPY,WITH BILATERAL TOTAL PELVIC LYMPHADENECTOMY, ROBOTIC performed by Ross Madrid MD at [facility] OR ? ? Cystourethroscopy w/irrig & evac clots 12/27/2012 CYSTO, IRRIGATION & EVACUATION OF CLOTS performed by Ross Madrid MD at [facility] OR ??? Ct retroperitoneal abscess drain 01/24/2013 No Known Allergies Current Outpatient Prescriptions on File Prior to Encounter Medication Sig Dispense Refill ??? penicillin g potassium 4 million units/100 mL PREMIX Inject 100 mLs into the vein every 4 hoursfor 30 days. [address] mL 0 ??? BUDESONIDE/FORMOTEROL FUMARATE (SYMBICORT INHL) [...] CONTRAST\DRAIN CATH\TUBE\ABSCESS\CYST IR Procedure Note Accession Number: [id number] Procedure: LLQ abscess drain injection History/Indication: 62 [...] EDT IR Procedure Note ?? Accession Number: [id number] ?? Procedure: LLQ abscess drain injection ?? [...] - 02/16/2013 IR Procedure Note Accession Number: [id number] Procedure: LLQ abscess drain injection History/Indication: 62 [...] unspecified documented in this encounter Care Teams Tamping Machine Operator Road Forms Relationship Specialty Start Date End Date Cameron Pineda MD [address] [place] [address] PCP - General 10/26/12 documented as of this encounter
--- OUTSIDE RECORDS SUMMARY | 2024-06-06 12:28 | XMS_ITS | Encounter Summary ---
Author Organization [facility] [place] [address] Care Team Providers Care Framing Mill Operator Helper Name Role Phone Farnaz Pineda MD Primary Care Provider Encounter Details Date Type Department Care Team (Late st Contact Info) Description 02/05/2013 Orders [place] [address] Ronna aCbrera PA [facility] [place] [address] Social History Tobacco Use Types Packs/Day Years [...] on filedocumented in this encounter Care Teams Framing Mill Operator Helper Relationship Specialty Start Date End Date Farnaz Pineda MD [address] [place], [place] [id number] PCP - General 10/26/12 documented as of this encounter
--- OUTSIDE RECORDS SUMMARY | 2024-06-06 12:29 | XMS_ITS | Encounter Summary ---
Author Organization [facility] [place] [address] Care Team Providers Care Apparatus Repair Mechanic Name Role Phone Farnaz Pineda MD Primary Care Provider [phone] Reason for Visit * Reason Comments Follow-up Encounter Details Date Type Department Care Team (Late st Contact Info) Description 01/22/2013 3:20 PM EDT [place] [phone] Ross Madrid MD [facility] [address] Prostate cancer (Primary Dx) Discharge Disposition: Home [...] (ABNORMAL) Differential, Automated (01/22/2013 3:52 PM EDT) Neutrophil % 71.0 34.0 - 71.0 % CERNER MILLENNIUM Neutrophil Absolute 7.18(H) 1.50 - 6.30 x10(3)/mc L CERNER MILLENNIUM Lymph % 11.7(L) 19.0 - 53.0 % CERNER MILLENNIUM Lymphocytes Abs 1.2 1.0 - 3.6 x10(3)/mc L CERNER MILLENNIUM Monocyte % 11.5 4.0 - 13.0 % CERNER MILLENNIUM Monocyte Abs 1.2(H) 0.2 - 1.0 x10(3)/mc L CERNER MILLENNIUM Eos % 4.6 0.0 - 7.0 % CERNER MILLENNIUM Eosinophils Abs 0.5 0.0 - 0.5 x10(3)/mc L CERNER MILLENNIUM Basophil % 0.9 0.0 - 2.0 % CERNER MILLENNIUM Baso Absolute 0.1 0.0 - 0.2 x10(3)/mc L CERNER [...] Immature Gran Absolute 0.03 0.00 - 0.05 x10(3)/mc L CERNER MILLENNIUM Blood specimen (specimen) 01/22/2013 3:52 PM EDT 01/22/2013 4:00 PM EDT Ross Madrid MD HEMATOLOGY ORDERABLE S CERNER MILLENNIUM * (ABNORMAL) APTT (01/22/2013 3:52 PM EDT) Partial Thromboplastin Time 56(H) 25 - 35 sec CERNER MILLENNIUM Comment: Recommended therapeutic PTT range for full dose unfractionated heparin is 80-114 seconds. Blood specimen (specimen) 01/22/2013 3:52 PM EDT 01/22/2013 4:00 PM EDT Narrative Resulting Agency Comment Spec In Lab Ross Madrid MD HEMATOLOGY ORDERABLE S Performing Organization Address [facility] Co de Phone Number DANETTE PRIDEIUM * (ABNORMAL) Prothrombin Time (01/22/2013 3:52 PM EDT) Prothrombin Time 28.3(H) 12.0 - 15.0 sec CERDAKSHA MILLENNIUM Comment: [facility] Transfusion Committee Guidelines: INR less than 2.0, PTT less than OR equal to 43.5 seconds, or Fibrinogen greater than or equal to 100 mg/dl indicate adequate procoagulant activity for hemostasis in patients without underlying bleeding disorders. International Normalization Ratio 2.6(H) 0.9 - 1.1 DANETTE MINNIEENNIUM Blood specimen (specimen) 01/22/2013 3:52 PM EDT 01/22/2013 4:00 PM EDT Narrative Resulting Agency Comment Spec In Lab Ross Madrid MD HEMATOLOGY ORDERABLE S DANETTE PRIDEIUM * (ABNORMAL) CBC (with Diff) (01/22/2013 3:52 PM EDT) White Blood Cell 10.1(H) 4.0 - 10.0 x10(3)/mc L CERNER MILLENNIUM Red Blood Cell 2.91(L) 4.63 - 6.08 x10(6)/mc L CERNER MILLENNIUM Hemoglobin 7.6(L) 13.7 - 17.5 gm/dL CERNER MILLENNIUM Hematocrit 26.8(L) 40.0 - 51.0 % CERNER MILLENNIUM Mean Cell Volume 92.1(H) 79.0 - 92.0 fL CERNER MILLENNIUM Mean Cell Hemoglobin 26.1 25.6 - 32.2 pg CERNER MILLENNIUM Mean Cell Hemoglobin Concentration 28.4(L) 32.0 - 36.5 gm/dL CERNER MILLENNIUM Comment:Matches Previous Res ults Platelet 322 145 - 370 x10(3)/mc L CERNER MILLENNIUM RDW Standard Deviation 68.7(H) 35.0 - 46.0 fL CERNER MILLENNIUM RDW coefficient of variation 20.3(H) 10.9 - 14.4 % CERNER MILLENNIUM Mean Platelet Volume 9.2 9.0 - 12.0 fL CERNER MILLENNIUM Blood specimen (specimen) 01/22/2013 3:52 PM EDT 01/22/2013 4:00 PM EDT Narrative Resulting Agency Comment Spec In Lab Ross Madrid MD HEMATOLOGY ORDERABLE S DANETTE VALENCIA documented in this encounter Visit Diagnoses Diagnosis Prostate cancer- Primary Malignant neoplasm of prostate documented in this encounter Care Teams Apparatus Repair Mechanic Relationship Specialty Start Date End Date Farnaz Pineda MD [address] [place] [address] PCP - General 10/26/12 documented as of this encounter
--- OUTSIDE RECORDS SUMMARY | 2024-06-06 12:29 | XMS_ITS | Encounter Summary ---
Author Organization [facility] [place] [address] Care Team Providers Care Superintendent Horticulture Name Role Phone Farnaz Pineda MD Primary Care Provider Encounter Details Date Type Department Care Team (Late st Contact Info) Description 01/04/2013 10:00 AM EDT Office [place] [phone] Petrona Seg[place], [place] Social History Tobacco Use [...] on filedocumented in this encounter Care Teams Superintendent Horticulture Relationship Specialty Start Date End Date Farnaz Pineda MD [address] [place] [address] PCP - General 10/26/12 documented as of this encounter
--- OUTSIDE RECORDS SUMMARY | 2024-06-06 12:29 | XMS_ITS | Encounter Summary ---
Author Organization [facility] [place] [address] Care Team Providers Care Aircraft Painter Name Role Phone Farnaz Pineda MD Primary Care Provider [phone] Encounter Details Date Type Department Care Team (Latest Contact Info) Description 01/18/2013 1:40 PM EDT Procedure [place] [phone] Ross Madrid MD [facility] [place] [address] Hematuria (Primary Dx) Discharge Disposition: Home Social [...] unspecified documented in this encounter Care Teams Aircraft Painter Relationship Specialty Start Date End Date Farnaz Pineda MD [address] [place] [address] PCP - General 10/26/12 documented as of this encounter
--- OUTSIDE RECORDS SUMMARY | 2024-06-06 12:29 | XMS_ITS | Encounter Summary ---
Author Organization [facility] [place] [address] Care Team Providers Care Territory Sales Consultant Name Role Phone [place] Pineda MD Primary Care Provider [phone] Reason for Visit * Reason Comments Hematuria Encounter Details Date Type Department Care Team (Late st Contact Info) Description 12/27/2012 4:09 PM EDT - 12/28/2012 4:49 PM EDT Emergency [place] [phone] Presley Madrid MD [facility] [place] [address] S/P prostatectomy (Primary Dx) Discharge Disposition: Home [...] may be used if needed and are owyq-qfv-ocigyvy (OTC) medications available at most local pharmacies. Prunes or prune juice, taken daily, can also be helpful for constipation treatment or p revention and are available at most [employer]. Driving Restrictions*: - No driving if you [...] Follow-up appointment will be scheduled with Dr. Madird at [facility] in 1 week. You will recieve a letter in the mail and/or a phone call with information about this appointment.Please call clinic number for appointments to confirm date and time of your appointment, or if you do not receive information about your appointment in a timely manner. Your surgeon may not be Television Reporter, especially during the night or on weekends, [...] 10:31 AM EDT Office of Care Management(OCM)/Clinical Mold Tooler(CRC) Discharge Planning CRC Service: Urology CRC :Belen Woods,RN,BS pager [phone] Covering CRC: Kylee Storey RN,BSN,MA pager [phone] O:Record reviewed and patient discussed with multidisciplinary [...] severe lower abdominal pains. He presented to [facility] and a Womack was inserted, returning bloody urine. His symptoms were relieved. Old clots were noted in the urine. He was transferred to [facility] for further management. 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 He presented [facility] and a Womack was inserted, returning bloody urine. His symptoms were relieved. Old clots were noted in the urine. He was transferred to [facility] for further management. He underwent [...] that part of your care. Urology - [phone] Scheduled Appointments: The following appointments have been scheduled on your behalf: Future Appointments and Orders Future Appointments: Provider: Department: Dept Phone: Center: 01/04/2013 1:40 PM Presley Madrid MD Urology [phone] [facility] 03/13/2013 10:30 AM Presley Madrid MD Urology [phone] [facility] Joint Appt Questionnaire Five B Urology Urology [phone] [facility] Future Orders Please Complete By Expires CBC (with Diff) [[id number] Custom] 01/04/13 12/28/13 Process Instructions: INCLUDES: WBC, [...] may be used if needed and are obww-wnr-etaxwxf (OTC) medications available at most local pharmacies. Prunes or prune juice, taken daily, can also be helpful for constipation treatment or p revention and are available at most [employer]. Driving Restrictions*: - No driving if you [...] timely manner. Your surgeon may not be Television Reporter, especially during the night or on weekends, so be ready to describe yourself and your surgery when you call. Future Appointments and Orders Future Appointments: Provider: Department: Dept Phone: Center: 01/04/2013 1:40 PM Presley Madrid MD Urology [phone] [facility] 03/13/2013 10:30 AM Presley Madrid MD Urology [phone] [facility] Joint Appt Questionnaire Five B Urology Urology [phone] [facility] Future Orders Please Complete By Expires CBC (with Diff) [[id number] Custom] 01/04/13 12/28/13 Process Instructions: INCLUDES: WBC, [...] was managed by the Urology Team at [facility]. If you have any questions or concerns, please feel free to contact us. Provider Contact Information: Urology Clinic: [facility] (after business hours): CC: [place] [...] Juanjo Galarza - 12/27/2012 6:12 PM EDT [facility] Operative Note Patient Name: Dillan Al : [id number] MR#: [id number] Case Date: 12/27/2012 Surgeon: Surgeon(s) and Role: [...] of the case, we placed a 20 Maltese 3-way catheter in the bladder to continuous [...] Operative Note Patient Name: Dillan Al : [id number] MR#: [id number] Case Date: 12/27/2012 Surgeon: Surgeon(s) and Role: [...] Operative Note Patient Name: Dillan Al : [id number] MR#: [id number] Case Date: 12/27/2012 Surgeon: Surgeon(s) and Role: [...] for him to get a catheter at [facility] prior to coming down today. He has [...] EDT BUN STAT 12/27/2012 3:50 PM EDT GLUCOSE STAT 12/27/2012 3:50 PM EDT ELECTROLYTES PANEL [...] MD HEMATOLOGY ORDERABLE S DANETTE HARTMANENNIUM * CYSTO,IRRIGATION & EVACUATION OF CLOTS [...] Text Report Department: Vascular Surgery Lab Patient: [id number] (DILLAN AL) CPT Code: 81381 ICD-9: 782.3 Referring Physician: PRESLEY MADRID Indication: [...] (ABNORMAL) Differential, Automated (12/28/2012 4:30 AM EDT) Neutrophil % 67.1 34.0 - 71.0 % CERNER MILLENNIUM Neutrophil Absolute 5.92 1.50 - 6.30 x10(3)/mc L CERNER MILLENNIUM Lymph % 13.4(L) 19.0 - 53.0 % CERNER MILLENNIUM Lymphocytes Abs 1.2 1.0 - 3.6 x10(3)/mc L CERNER MILLENNIUM Monocyte % 11.9 4.0 - 13.0 % CERNER MILLENNIUM Monocyte Abs 1.0 0.2 - 1.0 x10(3)/mc L CERNER MILLENNIUM Eos % 6.1 0.0 - 7.0 % CERNER MILLENNIUM Eosinophils Abs 0.5 0.0 - 0.5 x10(3)/mc L CERNER MILLENNIUM Basophil % 0.6 0.0 - 2.0 % CERNER MILLENNIUM Baso Absolute 0.0 0.0 - 0.2 x10(3)/mc L CERNER [...] differential will be performed. Immature Gran Absolute 0.08(H) 0.00 - 0.05 x10(3)/mc L CERNER MILLENNIUM Blood specimen (specimen) 12/28/2012 4:30 AM EDT 12/28/2012 4:43 AM EDT Presley Madrid MD HEMATOLOGY ORDERABLE S Performing Organization Address City/[facility]/ZIP Co de Phone Number CERNER MILLENNIUM * Scan, Peripheral Blood (12/28/2012 4:30 AM EDT) Pathologist [facility] Plat estimate Increased CERNER MILLENNIUM RBC Morphology Abnormal CERNE R MILLENNIUM Macrocyte 1-5 /HPF CERNER MILLENNIUM Microcyte 1-5 /HPF CERNER MILLENNIUM Polychromasia Present >5/HPF CERNER MILLENNIUM Blood specimen (specimen) 12/28/2012 4:30 AM EDT 12/28/2012 4:43 AM EDT Narrative Resulting Agency Comment Spec In Lab [place] Madrid MD HEMATOLOGY ORDERABLE S CERNER MILLENNIUM * (ABNORMAL) CBC (with Diff) (12/28/2012 4:30 AM EDT) White Blood Cell 8.8 4.0 - 10.0 x10(3)/mc L CERNER MILLENNIUM Red Blood Cell 2.55(L) 4.63 - 6.08 x10(6)/mc L CERNER MILLENNIUM Hemoglobin 6.9(L) 13.7 - 17.5 gm/dL CERNER MILLENNIUM Hematocrit 22.6(L) 40.0 - 51.0 % CERNER MILLENNIUM Mean Cell Volume 88.6 79.0 - 92.0 fL CERNER MILLENNIUM Mean Cell Hemoglobin 27.1 25.6 - 32.2 pg CERNER MILLENNIUM Mean Cell Hemoglobin Concentration 30.5(L) 32.0 - 36.5 gm/dL CERNER MILLENNIUM Platelet 487(H) 145 - 370 x10(3)/mc L CERNER MILLENNIUM RDW Standard Deviation 61.9(H) 35.0 - 46.0 fL CERNER MILLENNIUM RDW coefficient of variation 19.2(H) 10.9 - 14.4 % CERNER MILLENNIUM Mean Platelet Volume 9.0 9.0 - 12.0 fL CERNER MILLENNIUM Blood specimen (specimen) 12/28/2012 4:30 AM EDT 12/28/2012 4:43 AM EDT Narrative Resulting Agency Comment Spec In Lab [place] Madrid MD HEMATOLOGY ORDERABLE S CERNER MILLENNIUM * Scan, Peripheral Blood (12/27/2012 3:50 PM EDT) Pathologist [facility] Plat estimate Increased CERNER MILLENNIUM RBC Morphology Abnormal CERNE R MILLENNIUM Ovalocytes 1-5 /HPF CERNER MILLENNIUM Blood specimen (specimen) 12/27/2012 3:50 PM EDT 12/27/2012 4:04 PM EDT Narrative Resulting Agency Comment Spec In Lab Gricelda Tolbert MD HEMATOLOGY ORDERABLE S CERNER MILLENNIUM * (ABNORMAL) Differential, Automated (12/27/2012 3:50 PM EDT) Neutrophil % 71.5(H) 34.0 - 71.0 % CERNER MILLENNIUM Neutrophil Absolute 8.01(H) 1.50 - 6.30 x10(3)/mc L CERNER MILLENNIUM Lymph % 11.7(L) 19.0 - 53.0 % CERNER MILLENNIUM Lymphocytes Abs 1.3 1.0 - 3.6 x10(3)/mc L CERNER MILLENNIUM Monocyte % 8.6 4.0 - 13.0 % CERNER MILLENNIUM Monocyte Abs 1.0 0.2 - 1.0 x10(3)/mc L CERNER MILLENNIUM Eos % 6.2 0.0 - 7.0 % CERNER [...] differential will be performed. Immature Gran Absolute 0.12(H) 0.00 - 0.05 x10(3)/mc L DANETTE HARTMANENNIUM Blood specimen (specimen) 12/27/2012 3:50 PM EDT 12/27/2012 4:04 PM EDT Gricelda Tolbert MD HEMATOLOGY ORDERABLE S DANETTE PRIDEIUM * Antibody screen (12/27/2012 3:50 PM EDT) Ab Screen Interp Negative DANETTE PRIDEIUM Expires at [id number] on: [id number] DANETTE HARTMANENNIUM Blood specimen (specimen) 12/27/2012 3:50 PM EDT 12/27/2012 4:05 PM EDT Narrative Resulting Agency Comment Spec In Lab Gricelda Tolbert MD BLOOD BANK LAB ORDER JAMES DANETTE PRIDEIUM * ABO/Rh Typing (12/27/2012 3:50 PM EDT) ABORH Type A Pos DANETTE HARTMANENNIUM Blood specimen (specimen) 12/27/2012 3:50 PM EDT 12/27/2012 4:05 PM EDT Narrative Resulting Agency Comment Spec In Lab Gricelda Tolbert MD BLOOD BANK LAB ORDER JAMES Performing Organization Address [facility] Co de Phone Number DANETTE VALENCIA * (ABNORMAL) APTT (12/27/2012 3:50 PM EDT) Partial Thromboplastin Time 38(H) 25 - 35 sec [facility] MINNIEENNIUM Comment: Recommended therapeutic PTT range for full dose unfractionated heparin is 80-114 seconds. Blood specimen (specimen) 12/27/2012 3:50 PM EDT 12/27/2012 4:04 PM EDT Narrative Resulting Agency Comment Spec In Lab Gricelda Tolbert MD HEMATOLOGY ORDERABLE S Performing Organization Address [facility] de Phone Number DANETTE VALENCIA * (ABNORMAL) Prothrombin Time (12/27/2012 3:50 PM EDT) Prothrombin Time 16.3(H) 12.0 - 15.0 sec [facility] Comment: [facility] Transfusion Committee Guidelines: INR less than 2.0, PTT less than OR equal to 43.5 seconds, or Fibrinogen greater than or equal to 100 mg/dl indicate adequate procoagulant activity for hemostasis in patients without underlying bleeding disorders. International Normalization Ratio 1.3(H) 0.9 - 1.1 [facility] Blood specimen (specimen) 12/27/2012 3:50 PM EDT 12/27/2012 4:04 PM EDT Narrative Resulting Agency Comment Spec In Lab Gricelda Tolbert MD HEMATOLOGY ORDERABLE S Performing Organization Address [facility] Co de Phone Number DANETTE VALENCIA * Glucose, random (12/27/2012 3:50 PM EDT) Glucose 91 60 - 199 mg/dL [facility] Comment:Diabetes: >=200 mg/d L plus symptoms Blood specimen (specimen) 12/27/2012 3:50 PM EDT 12/27/2012 4:04 PM EDT Narrative Resulting Agency Comment Spec In Lab Gricelda Tolbert MD CHEMISTRY ORDERABLES DANETTE VALENCIA * Creatinine (12/27/2012 3:50 PM EDT) Creatinine 1.22 0.80 - 1.50 mg/dL DANETTE VALENCIA Comment: Please note that the pediatric reference intervals supplied above were not validated at [facility]. Results from pediatric patients should be interpreted in conjunction to the patient's age, height and muscle mass. Est Glomerular Filtration Rate 60 >=60 DANETTE VALENCIA Comment: The National [...] Tolbert MD CHEMISTRY ORDERABLES Performing Organization Address [facility] de Phone Number CERDAKSHA MILLENNIUM * BUN (12/27/2012 3:50 PM EDT) Blood Urea Nitrogen 20 10 - 20 mg/dL CERNER MILLENNIUM Blood specimen (specimen) 12/27/2012 3:50 PM EDT 12/27/2012 4:04 PM EDT Narrative Resulting Agency Comment Spec In Lab Gricelda Tolbert MD CHEMISTRY ORDERABLES Performing Organization Address [facility] de Phone Number CERNER MILLENNIUM * [...] 105 98 - 107 mmol/L CERNER MILLENNIUM Carbon Dioxide 26 22 - 31 mmol/L CERNER MILLENNIUM Anion Gap 10 5 - 15 mmol/L CERNER MILLENNIUM Blood specimen (specimen) 12/27/2012 3:50 PM EDT 12/27/2012 4:04 PM EDT Narrative Resulting Agency Comment Spec In Lab Gricelda Tolbert MD CHEMISTRY ORDERABLES Performing Organization Address [facility] Co de Phone Number CERNER MILLENNIUM * (ABNORMAL) CBC (with Diff) (12/27/2012 3:50 PM EDT) White Blood Cell 11.2(H) 4.0 - 10.0 x10(3)/mc L CERNER MILLENNIUM Red Blood Cell 3.03(L) 4.63 - 6.08 x10(6)/mc L CERNER MILLENNIUM Hemoglobin 8.2(L) 13.7 - 17.5 gm/dL CERNER MILLENNIUM Hematocrit 27.0(L) 40.0 - 51.0 % CERNER MILLENNIUM Mean Cell Volume 89.1 79.0 - 92.0 fL CERNER MILLENNIUM Mean Cell Hemoglobin 27.1 25.6 - 32.2 pg CERNER MILLENNIUM Mean Cell Hemoglobin Concentration 30.4(L) 32.0 - 36.5 gm/dL CERNER MILLENNIUM Platelet 542(H) 145 - 370 x10(3)/mc L CERNER MILLENNIUM RDW Standard Deviation 62.1(H) 35.0 - 46.0 fL CERNER MILLENNIUM RDW coefficient of variation 19.2(H) 10.9 - 14.4 % CERNER MILLENNIUM Mean Platelet Volume 8.9(L) 9.0 - 12.0 fL CERNER MILLENNIUM [...] 0900 (Given - Provider: Jessica Jaramillo RN) Continuous Medication Order 12/26/2012 12/27/2012 12/28/2012 sodium [...] PRN, Starting on Tue12/27/12 at 1820, Until 12/27/12 at 2005, Pain, For moderate pain give: 0.2 mg every 5 minute prn For severe pain give: 0.4 mg every 5 minutes prn Maximum dose: 4 mg per hour Hold for respiratory rate less than 10 per minute., PACU Recovery, Routine 181 (Given - Provider: Nila Terrazas, LANIE)1825 (Given - Provider: Nila Terrazas RN)1843 (Given - Provider: Nila Terrazas RN) OXYcodone (ROXICODONE) immediate release tablet 5 mg (CANCELED) 5 mg, Oral, EVERY 4 HOURS PRN, Starting on Tue12/27/12 at 2054, Until Emma 12/28/12 at 1855, Pain, Routine 211 (Given - Provider: Heladio Ovalle RN) 0523 (Given - Provider: Heladio Ovalle RN)1310 (Given - Provider: Jessica Jaramillo RN)1645 (Given - Provider: Jessica Jaramillo RN - Comment: per for d/c to home) documented in this encounter Care Teams Territory Sales Consultant Relationship Specialty Start Date End Date [place] Pineda MD [address] [place] [address] PCP - General 10/26/12 documented as of this encounter
--- OUTSIDE RECORDS SUMMARY | 2024-06-06 12:29 | XMS_ITS | Encounter Summary ---
Author Organization [facility] [place] [address] Care Team Providers Care Fitting Supervisor Name Role Phone Farnaz Pineda MD Primary Care Provider [phone] Encounter Details Date Type Department Care Team (Late st Contact Info) Description 01/03/2013 4:45 PM EDT [place] [id number] Ross Madrid MD [facility] [place] [address] Prostate cancer (Primary Dx) Discharge Disposition: Home [...] prostate documented in this encounter Care Teams Fitting Supervisor Relationship Specialty Start Date End Date Farnaz Pineda MD [address] [place] [address] PCP - General 10/26/12 documented as of this encounter
--- OUTSIDE RECORDS SUMMARY | 2024-06-06 12:29 | XMS_ITS | Encounter Summary ---
Author Organization [facility] [place] [address] Care Team Providers Care Reference Library Assistant Name Role Phone Cameron Pineda MD Primary Care Provider [phone] Reason for Visit * Reason Comments Hematuria Encounter Details Date Type Department Care Team (Late st Contact Info) Description 12/27/2012 3:43 PM EDT - 12/27/2012 5:12 PM EDT Surgery [place] [id number] Presley Madrid MD [facility] [place] [address] CYSTO, IRRIGATION & EVACUATION OF CLOTS (WRVU [...] may be used if needed and are budx-ckt-gpbwqxw (OTC) medications available at most local pharmacies. Prunes or prune juice, taken daily, can also be helpful for constipation treatment or p revention and are available at most [employer]. Driving Restrictions*: - No driving if you [...] timely manner. Your surgeon may not be Staff Development Manager, especially during the night or on weekends, [...] 10:31 AM EDT Office of Care Management(OCM)/Clinical Sign Artist(CRC) Discharge Planning CRC Service: Urology CRC :Belen Woods,RN,BS pager [phone] Covering CRC: Kylee StoreyRN,BSN,MA pager [phone] O:Record reviewed and patient discussed with multidisciplinary [...] severe lower abdominal pains. He presented to [facility] and a Womack was inserted, returning bloody urine. His symptoms were relieved. Old clots were noted in the urine. He was transferred to [facility] [place] further management. 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 He presented [facility] and a Womack was inserted, returning bloody urine. His symptoms were relieved. Old clots were noted in the urine. He was transferred to [facility] [place] further management. He underwent cysto clot [...] that part of your care. Urology - [phone] Scheduled Appointments: The following appointments have been scheduled on your behalf: Future Appointments and Orders Future Appointments: Provider: Department: Dept Phone: Center: 01/04/2013 1:40 PM Presley Madrid MD Urology [phone] [facility] 03/13/2013 10:30 AM Presley Madrid MD Urology [phone] [facility] Joint Appt Questionnaire Five B Urology Urology [phone] [facility] Future Orders Please Complete By Expires CBC (with Diff) [[id number] Custom] 01/04/13 12/28/13 Process Instructions: INCLUDES: WBC, [...] may be used if needed and are dqtf-rhs-ggdodwe (OTC) medications available at most local pharmacies. Prunes or prune juice, taken daily, can also be helpful for constipation treatment or p revention and are available at most [email or web address]. Driving Restrictions*: - No driving if you [...] timely manner. Your surgeon may not be Staff Development Manager, especially during the night or on weekends, so be ready to describe yourself and your surgery when you call. Future Appointments and Orders Future Appointments: Provider: Department: Dept Phone: Center: 01/04/2013 1:40 PM Presley Madrid MD Urology [phone] [facility] 03/13/2013 10:30 AM Presley Madrid MD Urology [phone] [facility] Joint Appt Questionnaire Five B Urology Urology [phone] [facility] Future Orders Please Complete By Expires CBC (with Diff) [[id number] Custom] 01/04/13 12/28/13 Process Instructions: INCLUDES: WBC, [...] was managed by the Urology Team at [facility]. If you have any questions or concerns, please feel free to contact us. Provider Contact Information: Urology Clinic: [facility] (after business hours): CC: CAMERON PINEDA MD Signed: 12/28/2012 * Miscellaneous - Provider, Scanning - 12/27/2012 11:05 PM EDT * OR Attestation - Persley Madrid MD - 12/27/2012 6:13 PM EDT Attestation: Case Date: 12/27/2012 I was present and I participated during the entire procedure (does not need to include opening and closing). PRESLEY MADRID MD 12/27/2012 * Op Note - Juanjo Galarza - 12/27/2012 6:12 PM EDT [facility] Operative Note Patient Name: Dillan Al : [id number] MR#: [id number] Case Date: 12/27/2012 Surgeon: Surgeon(s) and Role: [...] of the case, we placed a 20 Turkmen 3-way catheter in the bladder to continuous [...] Operative Note Patient Name: Dillan Al : [id number] MR#: [id number] Case Date: 12/27/2012 Surgeon: Surgeon(s) and Role: [...] Operative Note Patient Name: Dillan Al : [id number] MR#: [id number] Case Date: 12/27/2012 Surgeon: Surgeon(s) and Role: [...] for him to get a catheter at [facility] prior to coming down today. He [...] MD HEMATOLOGY ORDERABLE S CERNER MINNIEENNIUM * CYSTO,IRRIGATION & EVACUATION OF CLOTS (01/18/2013 [...] Text Report Department: Vascular Surgery Lab Patient: [id number] (DILLAN AL) CPT Code: 26381 ICD-9: 782.3 Referring Physician: PRESLEY MADRID Indication: [...] S CERNER MILLENNIUM * Scan, Peripheral Blood (12/28/2012 4:30 AM EDT) Plat estimate Increased CERNER MILLENNIUM RBC Morphology Abnormal CERNE R MILLENNIUM Macrocyte 1-5 /HPF CERNER MILLENNIUM Microcyte 1-5 /HPF CERNER MILLENNIUM Polychromasia Present >5/HPF CERNER MILLENNIUM Blood specimen (specimen) 12/28/2012 4:30 AM EDT 12/28/2012 4:43 AM EDT Narrative Resulting Agency Comment Spec In Lab Presley Madrid MD HEMATOLOGY ORDERABLE S Performing Organization Address City/[facility]/ZIP Co de Phone Number CERNER MILLENNIUM [...] Peripheral Blood (12/27/2012 3:50 PM EDT) Pathologist [facility] Plat estimate Increased CERNER MILLENNIUM RBC Morphology [...] 0.12(H) 0.00 - 0.05 x10(3)/mc L DANETTE PRIDEIUM Blood specimen (specimen) 12/27/2012 3:50 PM EDT 12/27/2012 4:04 PM EDT Gricelda Tolbert MD HEMATOLOGY ORDERABLE S DANETTE PRIDEIUM * Antibody screen (12/27/2012 3:50 PM EDT) Ab Screen Interp Negative DANETTE PRIDEIUM Expires at 2359 on: [id number] DANETTE PRIDEIUM Blood specimen (specimen) 12/27/2012 3:50 PM EDT [...] LAB ORDER JAMES Performing Organization Address [facility] Phone Number DANETTE VALENCIA * (ABNORMAL) APTT (12/27/2012 3:50 PM EDT) Partial Thromboplastin Time 38(H) 25 - 35 sec [facility] MILLENNIUM Comment: Recommended therapeutic PTT range for full dose unfractionated heparin is 80-114 seconds. Blood specimen (specimen) 12/27/2012 3:50 PM EDT 12/27/2012 4:04 PM EDT Narrative Resulting Agency Comment Spec In Lab Gricelda Tolbert MD HEMATOLOGY ORDERABLE S Performing Organization Address [facility] Phone Number DANETTE VALENCIA * (ABNORMAL) Prothrombin Time (12/27/2012 3:50 PM EDT) Prothrombin Time 16.3(H) 12.0 - 15.0 sec [facility] MINNIEENNIUM Comment: [facility] Transfusion Committee Guidelines: INR less than 2.0, PTT less than OR equal to 43.5 seconds, or Fibrinogen greater than or equal to 100 mg/dl indicate adequate procoagulant activity for hemostasis in patients without underlying bleeding disorders. International Normalization Ratio 1.3(H) 0.9 - 1.1 [facility]RA[facility] Blood specimen (specimen) 12/27/2012 3:50 PM EDT 12/27/2012 4:04 PM EDT Narrative Resulting Agency Comment Spec In Lab Gricelda Tolbert MD HEMATOLOGY ORDERABLE S Performing Organization Address [facility] de Phone Number DANETTE PRIDEIUM * Glucose, random (12/27/2012 3:50 PM EDT) Glucose 91 60 - 199 mg/dL [facility] MetagenomixENNIUM Comment:Diabetes: >=200 mg/d L plus symptoms Blood specimen (specimen) 12/27/2012 3:50 PM EDT 12/27/2012 4:04 PM EDT Narrative Resulting Agency Comment Spec In Lab Gricelda Tolbert MD CHEMISTRY ORDERABLES DANETTE VALENCIA * Creatinine (12/27/2012 3:50 PM EDT) Creatinine 1.22 0.80 - 1.50 mg/dL DANETTE VALENCIA Comment: Please note that the pediatric reference intervals supplied above were not validated at [facility]. Results from pediatric patients should be interpreted in conjunction to the patient's age, height and muscle mass. Est Glomerular Filtration Rate 60 >=60 [facility] Comment: The National Kidney Disease Education Program [...] MD CHEMISTRY ORDERABLES Performing Organization Address [facility] de Phone Number CERNER MILLENNIUM * BUN (12/27/2012 3:50 PM EDT) Blood Urea Nitrogen 20 10 - 20 mg/dL CERNER MILLENNIUM Blood specimen (specimen) 12/27/2012 3:50 PM EDT 12/27/2012 4:04 PM EDT Narrative Resulting Agency Comment Spec In Lab Gricelda Tolbert MD CHEMISTRY ORDERABLES Performing Organization Address [facility] de Phone Number CERNER MILLENNIUM * Electrolytes [...] MD CHEMISTRY ORDERABLES Performing Organization Address [facility] Co de Phone Number CERDAKSHA HARTMANENNIUM * [...] Routine 1814 (Given - Provider: Nila Terrazas, LANIE)182 (Given - Provider: Nila Terrazas, LANIE)184 (Given [...] home) documented in this encounter Care Teams Reference Library Assistant Relationship Specialty Start Date End Date Cameron Pineda MD [address] [place] [address] PCP - General 10/26/12 documented as of this encounter
--- OUTSIDE RECORDS SUMMARY | 2024-06-06 12:29 | XMS_ITS | Encounter Summary ---
Author Organization [facility] [place] [address] Care Team Providers Care Oracle Bpm Consultant Name Role Phone Farnaz Pineda MD Primary Care Provider [phone] Encounter Details Date Type Department Care Team (Latest Contact Info) Description 01/03/2013 5:32 PM EDT - 01/05/2013 2:35 PM EDT Hospital Encounter [place] [address] Presley Madrid MD [facility] [place] [address] Discharge Disposition: Home Social History Tobacco Use [...] Vargas RN - 01/04/2013 6:02 PM EDT [facility] Interventional Radiology Post Angiography Instructions Procedure: [...] Department at until 4:45pm. After 4:45pm call [phone] and ask for the Vascular resident administration professional. 10. If you are a diabetic and [...] may be used if needed and are urmo-ncm-mffocnh (OTC) medications available at most local pharmacies. Prunes or prune juice, taken daily, can also be helpful for constipation treatment or p revention and are available at most [employer]. Driving Restrictions*: - No driving if you [...] timely manner. Your surgeon may not be Electrical And Radio Mock Up Mechanic, especially during the night or on weekends, [...] Vargas RN - 01/04/2013 2:54 PM EDT [facility] NURSING DATABASE Name: DILLAN AL Date of : 1950 AGE 62 y.o. Address: [address] [place] [phone] (home) [phone] (work) Mobile: Telephone Information: Referring Provider: Leonardo Barrios Reason for Visit: IVC filter No Known Allergies Pertinent PMH: Patient Active Problem List Diagnoses Code ??? S/P prostatectomy V45.89 ??? Prostate cancer 185 Pertinent PSH: Past Surgical History Procedure Date ??? Lap, prostatectomy, radical, w/nerve spare 11/20/2012 @LAPAROSCOPIC PROSTATECTOMY, ROBOTICS ASSISTED performed by Presley Madrid MD at [facility] MAIN OR ??? Lap, pelvic lymphadenectomy 11/20/2012 LAPAROSCOPY,WITH BILATERAL TOTAL PELVIC LYMPHADENECTOMY, ROBOTIC performed by Presley Madrid MD at [facility] MAIN OR ? ? Cystourethroscopy w/irrig & evac clots 12/27/2012 CYSTO, IRRIGATION & EVACUATION OF CLOTS performed by Presley Madrid MD at [facility] MAIN OR Date/Procedure Comments: No pertinent [...] has been informed that they require a otr driver to drive them home after this procedure. In the absence of a otr driver, IR will not be able to [...] these segments. NOTE: Fabian Ribeiro MD (pager #[phone]) was notified of the preliminary Results. DVT [...] recent surgery, mechanical valve). We recommend a Shelby/IVC filter placemen to protect against pulmonary emboli. [...] PM EDT CT PELVIS SOFT TISSUE (GI SALESFORCE BUSINESS ANALYST) WO CONTRAST Routine 01/04/2013 10:55 AM EDT DUPLEX FOR DVT BILAT LEGS Routine 01/04/2013 8:59 AM EDT SCAN, PERIPHERAL BLOOD Timed 01/04/2013 4:40 AM EDT DIFFERENTIAL, AUTOMATED Timed 01/04/2013 4:40 AM EDT CBC (WITH DIFF) Timed 01/04/2013 4:40 AM EDT BASIC METABOLIC PANEL Timed 01/04/2013 4:40 AM EDT BMP W/FASTING GLUCOSE Routine 01/03/2013 7:42 PM EDT SCAN, PERIPHERAL BLOOD Routine 01/03/2013 7:42 PM EDT DIFFERENTIAL, AUTOMATED Routine 01/03/2013 7:42 PM EDT APTT Routine 01/03/2013 7:42 PM EDT PROTHROMBIN TIME Routine 01/03/2013 7:42 PM EDT CBC (WITH DIFF) Routine 01/03/2013 7:42 PM EDT documented in this encounter Results * (ABNORMAL) Prothrombin Time (01/05/2013 4:39 AM EDT) Prothrombin Time 24.9(H) 12.0 - 15.0 sec DANETTE MINNIESERENITYIUM Comment: [facility] Transfusion Committee Guidelines: INR less than 2.0, PTT less than OR equal to 43.5 seconds, or Fibrinogen greater than or equal to 100 mg/dl indicate adequate procoagulant activity for hemostasis in patients without underlying bleeding disorders. International Normalization Ratio 2.2(H) 0.9 - 1.1 DANETTE MINNIESERENITYIUM Blood specimen (specimen) 01/05/2013 4:39 AM EDT 01/05/2013 4:39 AM EDT Narrative Resulting Agency Comment Spec In Lab Presley Madrid MD HEMATOLOGY ORDERABLE S DANETTE VALENCIA * VS IVC filter placement/removal (vascular) (01/04/2013 [...] Text Report Department: Vascular Surgery Lab Patient: [id number] (DILLAN AL) CPT Code: 55297 ICD-9: 451.19 Referring Physician: PRESLEY MADRID Indication: [...] these segments. NOTE: Fabian Ribeiro MD (pager #[phone]) was notified of the preliminary results. Signed by CATRACHO BAKER on 2013-01-04 04:40:02 PM VASCUBASE 01/04/2013 8:59 AM EDT Presley Madrid MD VASCULAR ORDERABLES VASCUBASE * Scan, Peripheral Blood (01/04/2013 4:40 AM EDT) Plat estimate Increased CERNER MILLENNIUM RBC Morphology Abnormal CERNE R MILLENNIUM Polychromasia Present >5/HPF CERNER MILLENNIUM Ovalocytes 1-5 /HPF CERNER MILLENNIUM Blood specimen (specimen) 01/04/2013 4:40 AM EDT 01/04/2013 5:24 AM EDT Narrative Resulting Agency Comment Spec In Lab Presley Madrid MD HEMATOLOGY ORDERABLE S CERNER MILLENNIUM * (ABNORMAL) Differential, Automated (01/04/2013 4:40 AM EDT) Neutrophil % 64.3 34.0 - 71.0 % CERNER MILLENNIUM Neutrophil Absolute 5.25 1.50 - 6.30 x10(3)/mc L CERNER MILLENNIUM Lymph % 18.8(L) 19.0 - 53.0 % CERNER MILLENNIUM Lymphocytes Abs 1.5 1.0 - 3.6 x10(3)/mc L CERNER MILLENNIUM Monocyte % 6.9 4.0 - 13.0 % CERNER MILLENNIUM Monocyte Abs 0.6 0.2 - 1.0 x10(3)/mc L CERNER MILLENNIUM Eos % 8.6(H) 0.0 - 7.0 % CERNER [...] performed. Immature Gran Absolute 0.04 0.00 - 0.05 x10(3)/mc L CERNER MILLENNIUM Blood specimen (specimen) 01/04/2013 4:40 AM EDT 01/04/2013 5:24 AM EDT Presley Madrid MD HEMATOLOGY ORDERABLE S CERNER MILLENNIUM * Basic Metabolic Panel (non-fasting) (01/04/2013 4:40 AM EDT) Glucose 94 60 - 199 mg/dL CERNER MILLENNIUM Comment:Diabetes: >=200 mg/d L plus symptoms Blood Urea Nitrogen 13 10 - 20 mg/dL CERNER MILLENNIUM Creatinine 1.20 0.80 - 1.50 mg/dL CERNER MILLENNIUM Comment: Please note that the pediatric reference intervals supplied above were not validated at [facility]. Results from pediatric patients should be interpreted [...] 106 98 - 107 mmol/L CERNER MILLENNIUM Carbon Dioxide 27 22 - 31 mmol/L CERNER MILLENNIUM Anion Gap 7 5 - 15 mmol/L CERNER MILLENNIUM Calcium 8.8 8.5 - 10.5 mg/dL CERNER MILLENNIUM Est Glomerular Filtration Rate >60 >=60 CERNER MILLENNIUM Comment: The National [...] CBC (with Diff) (01/04/2013 4:40 AM EDT) White Blood Cell 8.2 4.0 - 10.0 x10(3)/mc L CERNER MILLENNIUM Red Blood Cell 2.79(L) 4.63 - 6.08 x10(6)/mc L CERNER MILLENNIUM Hemoglobin 7.1(L) 13.7 - 17.5 gm/dL CERNER MILLENNIUM Hematocrit 25.0(L) 40.0 - 51.0 % CERNER MILLENNIUM Mean Cell Volume 89.6 79.0 - 92.0 fL CERNER MILLENNIUM Mean Cell Hemoglobin 25.4(L) 25.6 - 32.2 pg CERNER MILLENNIUM Mean Cell Hemoglobin Concentration 28.4(L) 32.0 - 36.5 gm/dL CERNER MILLENNIUM Comment:Matches Previous Res ults Platelet 602(H) 145 - 370 x10(3)/mc L CERNER MILLENNIUM RDW Standard Deviation 64.2(H) 35.0 - 46.0 fL CERNER MILLENNIUM RDW coefficient of variation 19.8(H) 10.9 - 14.4 % CERNER MILLENNIUM Mean Platelet Volume 8.8(L) 9.0 - 12.0 fL CERNER MILLENNIUM Blood specimen (specimen) 01/04/2013 4:40 AM EDT 01/04/2013 5:24 AM EDT Narrative Resulting Agency Comment Spec In Lab Presley Madrid MD HEMATOLOGY ORDERABLE S CERDAKSHA PRIDEIUM * (ABNORMAL) Differential, Automated (01/03/2013 7:42 PM EDT) Neutrophil % 80.6(H) 34.0 - 71.0 % CERNER MILLENNIUM Neutrophil Absolute 9.65(H) 1.50 - 6.30 x10(3)/mc L CERNER MILLENNIUM Lymph % 7.4(L) 19.0 - 53.0 % CERNER MILLENNIUM Lymphocytes Abs 0.9(L) 1.0 - 3.6 x10(3)/mc L CERNER MILLENNIUM Monocyte % 5.9 4.0 - 13.0 % CERNER MILLENNIUM Monocyte Abs 0.7 0.2 - 1.0 x10(3)/mc L CERNER MILLENNIUM Eos % 5.0 0.0 - 7.0 % CERNER [...] differential will be performed. Immature Gran Absolute 0.06(H) 0.00 - 0.05 x10(3)/mc L CERNER MILLENNIUM Blood specimen (specimen) 01/03/2013 7:42 PM EDT 01/03/2013 7:44 PM EDT Presley Madrid MD HEMATOLOGY ORDERABLE S CERNER MILLENNIUM * Scan, Peripheral Blood (01/03/2013 7:42 PM EDT) Plat estimate Increased CERNER MILLENNIUM RBC Morphology Abnormal CERNE R MILLENNIUM Macrocyte 1-5 /HPF CERNER MILLENNIUM Microcyte 1-5 /HPF CERNER MILLENNIUM Polychromasia Present >5/HPF CERNER MILLENNIUM Ovalocytes 1-5 /HPF CERNER MILLENNIUM Blood specimen (specimen) 01/03/2013 7:42 PM EDT 01/03/2013 7:44 PM EDT Narrative Resulting Agency Comment Spec In Lab Presley Madrid MD HEMATOLOGY ORDERABLE S Performing Organization Address [facility] de Phone Number DANETTE VALENCIA * (ABNORMAL) APTT (01/03/2013 7:42 PM EDT) Partial Thromboplastin Time 53(H) 25 - 35 sec [facility] M[facility] Comment: Recommended therapeutic PTT range for full dose unfractionated heparin is 80-114 seconds. Blood specimen (specimen) 01/03/2013 7:42 PM EDT 01/03/2013 7:44 PM EDT Narrative Resulting Agency Comment Spec In Lab Presley Madrid MD HEMATOLOGY ORDERABLE S Performing Organization Address [facility] de Phone Number DANETTE HARTMANENNIUM * (ABNORMAL) Prothrombin Time (01/03/2013 7:42 PM EDT) Prothrombin Time 23.6(H) 12.0 - 15.0 sec [facility] MILLENNIUM Comment: [facility] Transfusion Committee Guidelines: INR less than 2.0, PTT less than OR equal to 43.5 seconds, or Fibrinogen greater than or equal to 100 mg/dl indicate adequate procoagulant activity for hemostasis in patients without underlying bleeding disorders. International Normalization Ratio 2.0(H) 0.9 - 1.1 [facility] [employer] AdvertisingBANNER BEHAVIORAL HEALTH HOSPITALIUM Blood specimen (specimen) 01/03/2013 7:42 PM EDT 01/03/2013 7:44 PM EDT Narrative Resulting Agency Comment Spec In Lab Presley Madrid MD HEMATOLOGY ORDERABLE S Performing Organization Address [facility] Co de Phone Number DANETTE HARTMANBANNER BEHAVIORAL HEALTH HOSPITALIUM * (ABNORMAL) BMP w/fasting Glucose (01/03/2013 7:42 PM EDT) Glucose Fasting 126(H) 65 - 99 mg/dL [facility] MILLBANNER BEHAVIORAL HEALTH HOSPITALIUM Comment: ?Fasting* Glucose Interpretive Criteria Normal ?65-99 [...] Care, Volume 33, Supplement 1, Oct 2009 Blood Urea Nitrogen 12 10 - 20 mg/dL CERNER MILLENNIUM Creatinine 1.22 0.80 - 1.50 mg/dL CERNER MILLENNIUM Comment: Please note that the pediatric reference intervals supplied above were not validated at [facility]. Results from pediatric patients should be interpreted [...] 102 98 - 107 mmol/L CERNER MILLENNIUM Carbon Dioxide 25 22 - 31 mmol/L CERNER MILLENNIUM Anion Gap 11 5 - 15 mmol/L CERNER MILLENNIUM Calcium 9.1 8.5 - 10.5 mg/dL CERNER MILLENNIUM Est Glomerular Filtration Rate 60 >=60 CERNER MILLENNIUM Comment: The National [...] MD CHEMISTRY ORDERABLES DANETTE VALENCIA * (ABNORMAL) CBC (with Diff) (01/03/2013 7:42 PM EDT) White Blood Cell 12.0(H) 4.0 - 10.0 x10(3)/mc L CERNER MILLENNIUM Red Blood Cell 3.04(L) 4.63 - 6.08 x10(6)/mc L CERNER MILLENNIUM Hemoglobin 7.9(L) 13.7 - 17.5 gm/dL DANETTE MILLSERENITYIUM Hematocrit 27.3(L) 40.0 - 51.0 % CERNER MILLENNIUM Mean Cell Volume 89.8 79.0 - 92.0 fL CERNER MILLENNIUM Mean Cell Hemoglobin 26.0 25.6 - 32.2 pg CERNER MILLENNIUM Mean Cell Hemoglobin Concentration 28.9(L) 32.0 - 36.5 gm/dL CERNER MILLENNIUM Platelet 532(H) 145 - 370 x10(3)/mc L CERNER MILLENNIUM RDW Standard Deviation 63.3(H) 35.0 - 46.0 fL CERNER MILLENNIUM RDW coefficient of variation 19.8(H) 10.9 - 14.4 % CERNER MILLENNIUM Mean Platelet Volume 8.5(L) 9.0 - 12.0 fL CERNER MILLENNIUM Blood specimen (specimen) 01/03/2013 7:42 [...] 81 mg, Oral, DAILY, First dose on Emma 01/04/13 at 0900, Until Discontinued, Routine 0900 (Given - Provider: Blanquita George RN) 0900 (Given - Provider: Kandace Chapman RN) ceFAZolin (ANCEF) 1g in dextrose 5% 50mL (COMPLETED) 1,000 mg (1 g), Intravenous, ONCE, 1 dose, On Emma 01/04/13 at 1700, Administer over 30 Minutes, Intra-Operative [...] 40 mg, Oral, DAILY, First dose on Emma 01/04/13 at 0900, Until Discontinued, Routine 0900 (Given [...] Taylor Newton RN - Reason: Patient/family refused) 09 (Given - Provider: Blanquita George RN)2099 (Given - Provider: Sandee Batista RN) 09 (Not Given - Provider: Kandace Chapman RN - Reason: Patient/family refused) sodium chloride 0.9 % flush 5 mL (CANCELED) 5 mL, Intravenous, EVERY 12 HOURS, First dose on Tue01/03/13 at 2100, Until Discontinued 2099 (Given - Provider: Taylor Newton RN) 899 (Given - Provider: Blanquita George RN)2099 (Not Given - Provider: Sandee Batista RN - Reason: See comment - Comment: IVF infusing) 899 (Given - Provider: Kandace Chapman RN) warfarin (COUMADIN) tablet 7.5 mg (CANCELED) 7.5 mg, Oral, DAILY, First dose on Tue01/03/13 at 1845, Until Discontinued, Routine 2006 (Given - Provider: Taylor Newton RN) 1999 (Given - Provider: Sandee Batista RN) 09 (Not Given - Provider: Kandace Chapman RN [...] Santizo RN)1930 (Rate/Dose Verify - Provider: Sandee Batista, LANIE)2323 (New Bag - Provider: Sandee Batista RN) 0836 (New Bag - Provider: Gomez Puente RN) PRN Medication Order 01/03/2013 01/04/2013 01/05/2013 fentaNYL 50mcg/mL injection (CANCELED) 25-50 mcg, Intravenous, EVERY 1 HOUR PRN, Starting on Tue01/04/13 at 1637, Until Emma 01/04/13 at 1719, Pain, Angio/IR (Intra-Procedure), Routine 171 (Given - Provider: Terrence Vargas RN - [...] Blanquita George RN)2000 (Given - Provider: Sandee Batista RN) 0815 (Given - Provider: Kandace Chapman, LANIE)1238 (Given - Provider: Kandace Chapman, LANIE) iohexol (OMNIPAQUE) 350 mg iodine/mL injection 17,500 [...] 01/04/13 at 1719, Sleep, Angio/IR (Intra-Procedure), Routine 171 (Given - Provider: Terrence Vargas RN - Comment: given in divided doses per sop) documented in this encounter Care Teams Oracle Bpm Consultant Relationship Specialty Start Date End Date Farnaz Pineda MD [address] [place] [address] PCP - General 10/26/12 documented as of this encounter
--- OUTSIDE RECORDS SUMMARY | 2024-06-06 12:29 | XMS_ITS | Encounter Summary ---
Author Organization [facility] [place] [address] Care Team Providers Care Fish Packer Name Role Phone Farnaz Pineda MD Primary Care Provider [phone] Encounter Details Date Type Department Care Team (Late st Contact Info) Description 12/08/2012 2:30 PM EST Clinical Support [facility] [place] [address] Social History Tobacco Use Types [...] on filedocumented in this encounter Care Teams Fish Packer Relationship Specialty Start Date End Date Farnaz Pineda MD [address] [place] [address] PCP - General 10/26/12 documented as of this encounter
--- OUTSIDE RECORDS SUMMARY | 2024-06-06 12:29 | XMS_ITS | Encounter Summary ---
Author Organization [facility] Address [facility] [place] [address] Care Team Providers Care Vessel Traffic Officer Name Role Phone Farnaz Patel MD Primary Care Provider [phone] Reason for Referral * Consultation (Routine) - Closed Specialty Diagnoses / Procedures Referred By Berta tavera Referred To Contact Diagnoses Abscess Bacteremia Postoperative hemorrhage Lesly Hope MD [facility] [place] [address] Riky Henley MD [facility] [place] [address] Referral ID Status Reason Start Date Expiration Date V isits Requested Visits Authorized [id number] Closed Assume Subset of Care 01/29/2013 07/28/2013 1 1 Encounter Details Date Type Department Care Team (Latest Contact Info) Description 01/23/2013 10:41 PM EDT - 01/30/2013 6:46 PM EDT Hospital Encounter [address] [place] [address] Presley Madrid MD [facility] [place] [address] Lesly Hope MD [facility] [place] [address] S/P AVR (aortic valve replacement) (Primary Dx); [...] Sethi RN - 01/30/2013 9:46 AM EDT salvage inspector Addendum Care Management Progress Notes 01/29/2013 11:46 AM Office of Care Management Clinical Systems Test Analyst Home IV Antibiotic Therapy Referral Note. Report received from that this patient will need home IV ABX treatment at discharge from the hospital. Met with patient/family to discuss vendor and visiting nurse choices for home IV antibiotic therapy. Reviewed Home Infusion Vendors and Home Health Agencies that serve patient???s address and accept patient???s insurance. Home Health Agency: Patient requested referral to [facility] PHONE: [phone] FAX: [phone] Referrals sent via edischarge. Home Infusion [facility] Referrals sent via edischarge. Diabetic Status: Patient is not a diabetic. IV access: Type of line: PICC line Date placed: 01-29-13 CRC signature Belen Valle RN [facility] Vascular and Interventional Radiology Discharge Instructions [...] is during regular office hours, please call [phone]. If it is after regular office hours, or on weekends or holidays, please call [phone] and ask to speak to the Medical Art Therapist agricultural economics teacher for Interventional Radiology. You may have received [...] longer draining. The number for questions is [phone] before 5 PM weekdays and [phone] after 5 PM and weekends. Activity level: [...] will be mailed to you. 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 Instructions reinforced on pain [...] Pt left unit in wheelchair, brought to [facility] by staff, & left hospital via private vehicle. Discharge summary e-faxed to [facility] with phonenumber for follow up questions if necessary. * Randy Mckinley - 01/30/2013 4:22 PM EDT Knocker Off Encounter Note Patient Name: Dillan Rodgers : [id number] MR#: [id number] Admit Date: 01/23/2013 10:41 PM Hospital Day 7 days Narrative:Visited to introduce and assess acceptance of Knocker [facility] services. Assessment:Patient coping positively with stresses of [...] 3:36 PM EDT Care Management/ CRC Pager# [phone] covering for Belen Valle RN/ Discharge planning [...] note put into E-discharge by Melissa Mancuso, Claims Processor. [facility] about [facility] start of therapy here later today and for patient to discharge to home today. Patient will be on Penicillin IV q4hr, and therefore on pump delivery system. Aislinn is clearing it through [facility] and finding out what time Penicillin and pump can be delivered. Discussion with Dr. Clyde Ruiz about plan. Discussion with marketing compliance manager Nohemi. Care Management note for MD Discharge Summary (with VNA and home infusion vendor information) had been completed and pended by Belen Valle RN. A/P: I am available to assist for discharge planning needs. Addendum at 1550: O: Per Aislinn DELA CRUZ of [facility], medication and pump will be delivered by 1900 for patient to be discharged today. [facility] Staff member to do teach at that [...] AM EDT Office of Care Management Clinical Systems Test Analyst Home IV Antibiotic Therapy Referral Note. Report received from that this patient will need home IV ABX treatment at discharge from the hospital. Met with patient/family to discuss vendor and visiting nurse choices for home IV antibiotic therapy. Reviewed Home Infusion Vendors and Home Health Agencies that serve patient???s address and accept patient???s insurance. Home Health Agency: Patient requested referral to [facility] PHONE: [phone] FAX: [phone] Referrals sent via edischarge. Home Infusion Vendor: Patient requested referral to [place], [place] or Referrals sent via edischarge. Diabetic [...] but also working and will do [facility] [place] [facility] per his request when [...] Dr Kyara Massey Infectious Disease fellow Pager [phone] ID Attending I interviewed and examined the [...] hemodynamically stable with resolving leukocytosis. P: Neuro: TAILER OFF for pain control. Monitor mental status CV: [...] NORepinephrine Stopped (01/25/13 1800) ??? HYDROmorphone ??? TAILER OFF capps ??? sodium chloride 0.9% 150 mL/hr [...] AM EDT Clinical Pharmacist Note-Vanc Dillan Rodgers [id number] 1950 Dillan Rodgers is a 62 y.o. [...] have. Alternately, during off-hours you may call [phone] to contact a pharmacist. DORA TALAVERA PHARMD Pager [phone] * Larissa Rios RN - 01/25/2013 3:17 PM EDT Office of Care Management (OCM) / Clinical Systems Test Analyst (CRC)/ Initial Assessment Discussed patient with Provider [...] to maintain BP within desired parameters. Dilaudid TAILER OFF in place for pain management. Currentlactate 1.1, WBC trending down, currently afebrile. Central line, arterial line, abdominal drain, and diallo catheter in place. SOCIAL / FAMILY SUPPORTS: Lives with , Jade (RN), in [place], [place]. ADVANCE DIRECTIVES: None on file. HEALTH /PRESCRIPTION COVERAGE: GRT WST PPO [employer] CURRENT HOME/COMMUNITY SERVICES/EQUIPMENT: None [employer] REFERRAL: No acute needs identified at this time. [employer] available for Support/Financial/Medication Assistance should needs develop. PRIMARY CARE PHYSICIAN: FARNAZ PATEL MD [address] / [facility] [address] POTENTIAL DISCHARGE NEEDS: Unable to determine at this time. 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 Monitor mental status in [...] 10 mcg/min (01/25/13 0600) ??? HYDROmorphone ??? TAILER OFF capps ??? DISCONTD: PHENYLephrine Stopped (01/24/13 1630) [...] %] I/O last 3 completed shifts: In: 00311.3 [I.V.:9249; Blood:1063.3; Other:547] Out: 2970 [Urine:2920; Other:50] [...] at this time. BELEN VALLE RN01/24/2013 * Renia Dey RN - 01/24/2013 8:46 AM EDT [facility] NURSING DATABASE Name: DILLAN RODGERS Date of : 1950 AGE 62 y.o. Address: [address] [place] [phone] (home) [phone] (work) Mobile: Telephone Information: Referring Provider: Abby [...] ASSISTED performed by Presley Madrid MD at [facility] MAIN OR ??? Lap, pelvic lymphadenectomy 11/20/2012 LAPAROSCOPY,WITH BILATERAL TOTAL PELVIC LYMPHADENECTOMY, ROBOTIC performed by Presley Madrid MD at [facility] MAIN OR ? ? Cystourethroscopy w/irrig & evac clots 12/27/2012 CYSTO, IRRIGATION & EVACUATION OF CLOTS performed by Presley Madrid MD at [facility] MAIN OR Date/Procedure Comments: 01/24/13 No data in CIS 01-04-13 IVC filter Versed 2.5 mg iv, fentanyl 125 mcg iv, ancef 1 gram iv 01/24/2013 Pelvic embolization and then CT guided pelvic drain placement Fentanyl 125 mcg/iv duglas gttstarted (patient changed to ICU status mid-case), 2 UNITS ffp, 2 UNITS rbcS, fluid bolus then Levo started by MICROSCOPIST Laboratory Results: Lab Results Component Value Date [...] has been informed that they require a steam train driver to drive them home after this procedure. In the absence of a steam train driver, IR will not be able to perform this procedureand will need to reschedule. Pt verbalized understanding of these instructions during the pre-procedure education via phone. * Jim Martell MD - 01/24/2013 8:16 AM EDT IR Pre-procedure Note Age: 62 y.o. M Referring MD: Presley Madrid MD ([facility]- Urology) Planned Procedure: Pelvic angiogram, possible left [...] and fever. He was subsequently transferred to [facility]. 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 Post-op course was notable for pelvic hematoma. [...] got IV Cipro. He was transferred to [facility] for furtherworkup and management. 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 Post-op course was notable for pelvic hematoma. [...] got IV Cipro. He was transferred to [facility] for furtherworkup and management. CECT scan demonstrated [...] is 3.0. We will admit him to [facility] for further treatment. We will maintain [...] Admission Note Patient Name: Dillan Rodgers MR#: [id number] : [id number] CC: 62 y.o. Male s/p robotic prostatectomy [...] ASSISTED performed by Presley Madrid MD at [facility] MAIN OR ??? Lap, pelvic lymphadenectomy 11/20/2012 LAPAROSCOPY,WITH BILATERAL TOTAL PELVIC LYMPHADENECTOMY, ROBOTIC performed by Presley Madrid MD at [facility] MAIN OR ? ? Cystourethroscopy w/irrig & evac clots 12/27/2012 CYSTO, IRRIGATION & EVACUATION OF CLOTS performed by Presley Madrid MD at [facility] MAIN OR ALLERGIES: No Known Allergies [...] results found for this basename: phart, po2art, ggs5udz RADIOLOGY: Ct Pelvis Wo Contrast 01/04/2013 Examination [...] the attending Assessment/Problem List: Plan: Neuro: dilaudid TAILER OFF CV: Levophed, lactate elevated to 4. Recheck [...] ASSISTED performed by Presley Madrid MD at [facility] MAIN OR ??? Lap, pelvic lymphadenectomy 11/20/2012 LAPAROSCOPY,WITH BILATERAL TOTAL PELVIC LYMPHADENECTOMY, ROBOTIC performed by Presley Madrid MD at [facility] MAIN OR ? ? Cystourethroscopy w/irrig & evac clots 12/27/2012 CYSTO, IRRIGATION & EVACUATION OF CLOTS performed by Presley Madrid MD at [facility] MAIN OR Aortic valve replacement FAM [...] 01/31/2013 1:06 PM EDTAssociated Order(s): SCAN DOC: MATERIALS ASSOCIATE * Provider, Scanning - 01/31/2013 12:54 PM [...] to the planned procedure. Hand Hygiene: The it account manager did perform hand hygiene prior to line insertion. Catheter type: PICC Lot number: [id number] Procedure Technique: Skin was prepped with chlorhexidine. [...] to the planned procedure. Hand Hygiene: The it account manager did perform hand hygiene prior to arterial [...] Good wave form. Procedure Comments: * Nelida Clolins - 01/24/2013 8:17 PM EDTProcedure(s): CENTRAL LINE Central Line Placement Procedure Note Indication for Central Line Insertion: New Catheter: access This insertion was not to replace a malfunctioning central line. This insertion was not due to a suspected central line associated infection. Location of Procedure: [facility] Risks and Benefits: The risks and benefits of this procedure were reviewed and informed consent was obtained. Time Out: Prior to the start of the procedure, the patient's identity, intended procedure, site/side, correctpatient positioning and presence of the site immanuel was confirmed as applicable. The medical history and chart were reviewed to rule out potential contraindications to the planned procedure. Hand Hygiene: The it account manager did perform hand hygiene prior to central [...] : CT-guided drainage pelvic abscess Acc #: [id number] INDICATION : abscess s/p robotic prostatectomy/LND approximately [...] internal iliac artery embolization with gelfoam ACC#: [id number] Indication for Procedure: 62 yr old M patient, s/p robotic prostatectomy/LND approximately 2 monthsago. Post-op course was notable for pelvic hematoma. 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 Most recently, he presented to an outside hospital with bilateral hip pain and fever. He was subsequently transferred to [facility]. CECT scan demonstrated left sided pelvic hematoma, [...] that part of your care. Urology - [phone] Scheduled Appointments: The following appointments have been scheduled on your behalf: Future Appointments and Orders Future Appointments: Provider: Department: Dept Phone: Center: 02/13/2013 11:00 AM Cely Baires MD Infectious Disease [phone] [facility] 03/13/2013 10:30 AM Presley Madrid MD Urology [phone] [facility] Joint Appt Questionnaire [facility] Urology [phone] [facility] Future Orders Please Complete By Expires CT abdomen & pelvis with contrast [[id number] Custom] 02/05/13 01/29/14 Process Instructions: Scheduling Instructions: [...] Recommendation for Post Discharge IV Antibiotic Management [IOG006 CPT(R)] Process Instructions: If no progress note charted, please enter Clinical details in comments. Scheduling Instructions: Comments: Please Fax all results to: OPAT Program Infectious Disease Section [facility], [place] [address] FAX: Line care instructions per [facility] OPAT Program protocol. After hours, please contact the Infectious Disease Physician agricultural economics teacher at . If this order was signed greater than 72 hours prior to [facility] discharge, please call to confirm the accuracy [...] Hematoma Left Pelvis Referral to Home Health [VKT7614 CPT(R)] Process Instructions: Scheduling Instructions: Comments: DOCUMENTATION FOR VNA SERVICES (INCLUDING THOSE PATIENTS WITH MEDICARE COVERAGE REQUIRING HOME VNA SERVICES AND/OR HOSPICE SERVICES) PATIENT'S LOCATION: Dillan Rodgers [address] [place] [phone] (home) Insurance Risk Surveyor's Name: Patient, , Jade In discussion with the attending physician, it is certified that this patient is under their care and that they, or a Nurse Practitioner,Clinical Nurse specialist or Physician Performance Solutions Specialist who is working directly with them, had [...] issues, activity, coping HOME HEALTH CARE AGENCY: [facility] PHONE: [phone] FAX: [phone] Start of care: Day of discharge (01-29-13) Please note that any additional orders needs or changes will need to be obtained from this patient's PCP: FARNAZ PATEL MD [address] / [facility] [address] All VNA agencies which cover the area of patient's residence have been reviewed, either verbally clara writing, and patient/family have chosen the home health care agency noted Questions: Responses: [facility] information [facility] Home What services are requested Registered Nurse Start date 01/30/2013 Responsible MD post discharge contact info PCP/ Micaela [facility] Referral for Outpatient Antibiotics [[id number] CPT(R)] Process Instructions: Scheduling Instructions: Comments: [place], [place] or Questions: Responses: Patient location post discharge Home Start date 01/29/2013 Responsible MD post discharge contact info PCP/Raf Sun MD [facility] Vendor / contact information [facility] Service requested [...] AND/OR HOSPICE SERVICES) PATIENT'S LOCATION: Dillan Rodgers [address] [place] [phone] (home) Insurance Risk Surveyor's Name: Patient, , Jade In discussion with the attending physician, it is certified that this patient is under their care and that they, or a Nurse Practitioner,Clinical Nurse specialist or Physician Performance Solutions Specialist who is working directly with them, had [...] issues, activity, coping HOME HEALTH CARE AGENCY: [facility] PHONE: [phone] FAX: [phone] Start of care: Day of discharge (01-29-13) Please note that any additional orders needs or changes will need to be obtained from this patient's PCP: FARNAZ PATEL MD [address] / [place] [address] All A agencies which cover the area of patient's residence have been reviewed, either verbally clara writing, and patient/family have chosen the home health care agency noted Question Response Notes Agency [facility] and contact information [facility] Home What services are requested Registered Nurse Start date 01/30/2013 Responsible MD post discharge contact info PCP/ Micaela [facility] Referral for Outpatient Antibiotics Order Comments: [place], [place] or Question Response Notes Vendor / contact information [place] Patient location post discharge Home Service requested Home IV ABX infusion/PICC line care Start date 01/29/2013 Responsible MD post discharge contact info PCP/Raf Sun MD [facility] Instructions Given to Patient at Discharge: Provider Instructions Call your doctor for: fevers greater than 100.5 severe nausea or vomiting increasing pain not controlled by pain medications increasing redness or drainage from incisions decreased urine output our if your catheter is no longer draining. The number for questions is [phone] before 5 PM weekdays and [phone] after 5 PM and weekends. Activity level: [...] will be mailed to you. Please call [phone] (clinic number for appointments) to confirm date [...] PATEL MD Phone: [address] / [place] [address] If you have not received a call [...] the above, seek medical attention. General Instructions salvage inspector Addendum Care Management Progress Notes 01/29/2013 11:46 AM Office of Care Management Clinical Systems Test Analyst Home IV Antibiotic Therapy Referral Note. Report received from that this patient will need home IV ABX treatment at discharge from the hospital. Met with patient/family to discuss vendor and visiting nurse choices for home IV antibiotic therapy. Reviewed Home Infusion Vendors and Home Health Agencies that serve patient???s address and accept patient???s insurance. Home Health Agency: Patient requested referral to [facility] PHONE: [phone] FAX: [phone] Referrals sent via edischarge. Home Infusion Vendor: Patient requested referral to [place], [place] or Referrals sent via edischarge. Diabetic Status: Patient is not a diabetic. IV access: Type of line: PICC line Date placed: 01-29-13 CRC signature Belen ValleRN [facility] Vascular and Interventional Radiology Discharge Instructions [...] is during regular office hours, please call [phone]. If it is after regular office hours, or on weekends or holidays, please call [phone] and ask to speak to the Medical Art Therapist agricultural economics teacher for Interventional Radiology. You may have received [...] 11:00 AM Cely Baires MD Infectious Disease [phone] [facility] 03/13/2013 10:30 AM Presley Madrid MD Urology [phone] [facility] Joint Appt Questionnaire Five B Urology Urology [phone] [facility] Future Orders Please Complete By Expires CT abdomen & pelvis with contrast [[id number] Custom] 02/05/13 01/29/14 Process Instructions: Scheduling Instructions: [...] Recommendation for Post Discharge IV Antibiotic Management [[id number] CPT(R)] Process Instructions: If no progress note charted, please enter Clinical details in comments. Scheduling Instructions: Comments: Please Fax all results to: OPAT Program Infectious Disease Section [facility], [place] [address] FAX: Line care instructions per [facility] OPAT Program protocol. After hours, please contact the Infectious Disease Physician agricultural economics teacher at . If this order was signed greater than 72 hours prior to [facility] discharge, please call to confirm the accuracy [...] Hematoma Left Pelvis Referral to Home Health [[id number] CPT(R)] Process Instructions: Scheduling Instructions: Comments: DOCUMENTATION FOR VNA SERVICES (INCLUDING THOSE PATIENTS WITH MEDICARE COVERAGE REQUIRING HOME VNA SERVICES AND/OR HOSPICE SERVICES) PATIENT'S LOCATION: Dillan Ocampo Vishal [address] [place] [phone] (home) Insurance Risk Surveyor's Name: Patient, , Jade In discussion with the attending physician, it is certified that this patient is under their care and that they, or a Nurse Practitioner,Clinical Nurse specialist or Physician Performance Solutions Specialist who is working directly with them, had [...] issues, activity, coping HOME HEALTH CARE AGENCY: [facility] PHONE: [phone] FAX: [phone] Start of care: Day of discharge (01-29-13) Please note that any additional orders needs or changes will need to be obtained from this patient's PCP: FARNAZ PATEL MD [address] / [facility] [address] All A agencies which cover the area of patient's residence have been reviewed, either verbally clara writing, and patient/family have chosen the home health care agency noted Questions: Responses: Agency name and contact information [facility] Patient location post discharge Home What services are requested Registered Nurse Start date 01/30/2013 Responsible MD post discharge contact info PCP/ Micaela [facility] Referral for Outpatient Antibiotics [[id number] CPT(R)] Process Instructions: Scheduling Instructions: Comments: [place], [place] or Questions: Responses: Patient location post discharge Home Start date 01/29/2013 Responsible MD post discharge contact info PCP/Raf Sun MD [facility] Vendor / contact information [facility] Service requested Home IV ABX infusion/PICC line [...] was managed by the Urology Team at [facility]. If you have any questions or concerns, please feel free to contact us. Provider Contact Information: Urology Clinic: [facility] (after business hours): CC: FARNAZ PATEL MD [...] ASSISTED performed by Presley Madrid MD at [facility] MAIN OR ??? Lap, pelvic lymphadenectomy 11/20/2012 LAPAROSCOPY,WITH BILATERAL TOTAL PELVIC LYMPHADENECTOMY, ROBOTIC performed by Presley Madrid MD at [facility] MAIN OR ? ? Cystourethroscopy w/irrig & evac clots 12/27/2012 CYSTO, IRRIGATION & EVACUATION OF CLOTS performed by Presley Madrid MD at [facility] MAIN OR ??? Ct retroperitoneal abscess [...] oriented to person, place, and time Communication: [facility] Vision & Perception: n/a Range of motion, [...] minutes Total timed interventions: 0 minutes Pager: [phone] SHAVON BENNETT OT 01/29/2013 Occupational Therapy Rehabilitation Department * Plan of Care - John Pacheco RN - 01/29/2013 8:02 AM EDT Problem: Knowledge Deficit (Adult, Pediatric, , NICU, Obstetric) Goal: Knowledge Deficit: Knowledgeable about Subject/Topic Outcome: Outcome achieved Date Met: 01/29/13 Peripherally Inserted Central Catheter (PICC) Teaching Sheet Peripherally inserted central catheters ([id number]) (PICC) are used when you need IV [...] midline catheter? PICC lines are used for long-term treatments. PICC lines may be used for [...] can be set up via the nurse Airport Attendant to help you. What are possible complications [...] Efficacy, Safety, Use, and Administration of [employer] 2005 * Plan of Care - [...] Leakage around [place] insertion site; scrotum swollen. [place] pads utilized to absorb urine leakage, scrotal/perineal [...] Obstetric) Pt resting comfortably in bed. Using TAILER OFF appropriately. Problem: Urine Elimination, Impaired (Adult, Obstetric) [...] pain. PCAhydromorphone as prn. Transfer orders to [facility] 46a. Report called to Jessica. updated. * [...] ASSISTED performed by Presley Madrid MD at [facility] MAIN OR ??? Lap, pelvic lymphadenectomy 11/20/2012 LAPAROSCOPY,WITH BILATERAL TOTAL PELVIC LYMPHADENECTOMY, ROBOTIC performed by Presley Madrid MD at [facility] MAIN OR ? ? Cystourethroscopy w/irrig & evac clots 12/27/2012 CYSTO, IRRIGATION & EVACUATION OF CLOTS performed by Presley Madrid MD at [facility] MAIN OR ??? Ct retroperitoneal abscess [...] activity Pain: minimal c/o pain; not using TAILER OFF Skin: edematous L/Es; old L DVT; mild [...] timed interventions: 0 minutes (initial eval) Pager: [phone] BRENT HURD, PT 01/26/2013 Physical Therapy Rehabilitation Department * Consult Note - Keanu Yeung MD - 01/26/2013 3:21 PM EDT [...] ASSISTED performed by Presley Madrid MD at [facility] MAIN OR ??? Lap, pelvic lymphadenectomy 11/20/2012 LAPAROSCOPY,WITH BILATERAL TOTAL PELVIC LYMPHADENECTOMY, ROBOTIC performed by Presley Madrid MD at [facility] MAIN OR ? ? Cystourethroscopy w/irrig & evac clots 12/27/2012 CYSTO, IRRIGATION & EVACUATION OF CLOTS performed by Presley Madrid MD at [facility] MAIN OR ??? Ct retroperitoneal abscess [...] 50 mL Mini-Bag Plus 1.5g Intravenous Q6H [facility] Clyde Ruiz MD 1.5 g at 01/26/13 [...] solution 15 mL 15 mL Oral Q12H [facility] Dillan Liao MD 15 mL at 01/26/13 0900 ??? sodium chloride 0.9% infusion 10 mL/hr Intravenous Continuous PRN Dillan Liao MD 10 mL/hrat 01/25/13 1800 10 mL/hr at 01/25/13 1800 ??? HYDROmorphone (DILAUDID) 1 mg/mL TAILER OFF 30 mL Intravenous TAILER OFF Only Dillan Liao MD ??? diphenhydrAMINE (BENADRYL) injection 25 mg 25 mg Intravenous Q30 Min PRN Dillan Liao MD ??? TAILER OFF [employer]apps Intravenous Continuous Dillan Liao MD ??? [...] than 20kg) infusion 0-30 mcg/min Intravenous Continuous eNlida Collins MD 2 mcg/min at 01/25/13 1600 [...] be advised to followup with his regular keg header at [facility] for his AVR. Cardiology service will signoff. [...] a transthoracic echo. Keanu Yeung M.D. 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 Enterococcus faecalis isolated Susceptibility testing in progress Patient: DILLAN RODGERS MR#: [id number] SUSCEPTIBILITY RESULTS Escherichia coli NINAF Interp Ampicillin S Ampicillin/Sulbactam S Aztreonam S [...] Viry Massey MD Fellow, Infectious Disease Pager [phone] ADDENDUM I have seen and examined the [...] guided drainage of infected L iliacus hematoma ([id number]) and embolization of the L internal iliac [...] questions. Cely Baires MD Infectious Disease Pager [phone] 80 minutes were spent on the floor in care of the patient. 50 minutes in coordination of care. * Plan of Care - Jim Mac - 01/26/2013 3:02 AM EDT Problem: Pain, Acute (Adult, Obstetric) Goal: Acute Pain: Acceptable Pain Control/Comfort Level - Pain, Acute (Adult, Obstetric) Pt. Pain assessed/ managed throughout shift. No pain noted. TAILER OFF pump ordered, pt. Does not need pain [...] ASSISTED performed by Presley Madrid MD at [facility] MAIN OR ??? Lap, pelvic lymphadenectomy 11/20/2012 LAPAROSCOPY,WITH BILATERAL TOTAL PELVIC LYMPHADENECTOMY, ROBOTIC performed by Presley Madrid MD at [facility] MAIN OR ? ? Cystourethroscopy w/irrig & evac clots 12/27/2012 CYSTO, IRRIGATION & EVACUATION OF CLOTS performed by Presley Madrid MD at [facility] MAIN OR ??? Ct retroperitoneal abscess drain 01/24/2013 Medications: Current Facility-Administered Medications Ordered in [facility] Medication Dose Route Frequency Provider Last Rate [...] 01/25/13 1000 ??? HYDROmorphone (DILAUDID) 1 mg/mL TAILER OFF 30 mL Intravenous TAILER OFF Only Dillan Liao MD ??? diphenhydrAMINE (BENADRYL) injection 25 mg 25 mg Intravenous Q30 Min PRN Dillan Liao MD ??? ondansetron (ZOFRAN) injection 4 mg 4 mg Intravenous Q30 Min PRN Dillan Liao MD ??? TAILER OFF capps Intravenous Continuous Dillan Liao MD ??? [...] 01/25/13 0820 Gross per 24 hour Intake 49364.1 ml Output 3240 ml Net 7568.1 ml [...] DILLAN RODGERS Ordered By: PRESLEY MADRID MR#: [id number] LOC: ICUS /Sex: 1950 (62 years), Male [...] 1-5 Hypochromia Slight Polychromasia Present Ovalocytes 1-5 Lul Cells 1-5 Giant Platelets Less than 1 [...] plan: 45 minutes. Keanu Yeung M.D. Staff [employer] [facility] Heart and Vascular Center [facility] Pager #[phone] * Plan of Care - Jim Mac - 01/25/2013 3:35 AM EDT Problem: Pain, Acute (Adult, Obstetric) Goal: Acute Pain: Acceptable Pain Control/Comfort Level - Pain, Acute (Adult, Obstetric) Pt. Pain assessed and managed. TAILER OFF pump ordered. Pt. Understands use of pump, [...] Procedure Name Priority Date/Time Associated Diagnosis Comments MATERIALS ASSOCIATE SCAN 01/31/2013 1:06 PM EDT LAB SCAN [...] 01/24/2013 8:2 0 PM EDT BLOOD GAS ARTERIAL POC Routine 3 8:08 PM EDT POCT GLUCOSE Routine 01/24/2013 5:50 PM EDT DIFFERENTIAL, MANUAL STAT 01/24/2013 5:40 PM EDT APTT STAT 01/24/2013 5:40 PM EDT PROTHROMBIN TIME STAT 01/24/2013 5:40 PM EDT CBC (WITH DIFF) STAT 01/24/2013 5:40 PM EDT LACTATE, PLASMA STAT 01/24/2013 5:40 PM EDT BASIC METABOLIC PANEL STAT 01/24/2013 5:[address] PERITONEAL [...] AM EDT TRANSFUSE THAWED PLASMA STAT 01/25/20 10:00 AM EDT PREPARE THAWED PLASMA Routine 01/24/2013 9:25 AM EDT PREPARE THAWED PLASMA STAT 01/24/2013 8:35 AM EDT DIFFERENTIAL, AUTOMATED Routine 01/25/20 13 6:02 AM EDT CBC (WITH DIFF) Routine 01/24/2013 6:02 AM EDT TRANSFUSE RED BLOOD CELLS Routine 01/24/2013 1:52 AM EDT PREPARE RBC Routine 01/24/2013 1:[address] PELVIS SOFT TISSUE (GI SECURITY AND COMPLIANCE ANALYST)W CONTRAST Routine 01/24/2013 12:55 AM EDT DIFFERENTIAL, MANUAL Routine 01/24/2013 12:08 AM EDT ABO/RH TYPING Routine 01/24/2013 12:08 AM EDT APTT Routine 01/24/2013 12:08 AM EDT PROTHROMBIN TIME Routine 01/24/2013 12:0 8 AM EDT CBC (WITH DIFF) Routine 01/24/2013 12:08 AM EDT ANTIBODY SCREEN Routine 01/24/2013 12:08 AM EDT TYPE AND SCREEN (MC/CGP/CONSTANTINE) Routine 01/24/2013 12:08 AM EDT BASIC METABOLIC PANEL Routine 01/24/2013 12:08 AM EDT documented in [...] MD IMG CT ORDERABLES * SCAN DOC: MATERIALS ASSOCIATE (01/31/2013 1:06 PM EDT) Anatomical Region Laterality [...] * (ABNORMAL) APTT (01/30/2013 6:03 AM EDT) Partial Thromboplastin Time 40(H) 25 - 35 sec DAENTTE VALENCIA Comment: Recommended therapeutic PTT range for full dose unfractionated heparin is 80-114 seconds. Blood specimen (specimen) 01/30/2013 6:03 AM EDT 01/30/2013 6:14 AM EDT Narrative Resulting Agency Comment Spec In Lab Lesly Hope MD HEMATOLOGY ORDERABLE S [facility] * (ABNORMAL) Prothrombin Time (01/30/2013 6:03 AM EDT) Prothrombin Time 20.8(H) 12.0 - 15.0 sec DANETTE VALENCIA Comment: [facility] Transfusion Committee Guidelines: INR less than 2.0, PTT less than OR equal to 43.5 seconds, or Fibrinogen greater than or equal to 100 mg/dl indicate adequate procoagulant activity for hemostasis in patients without underlying bleeding disorders. International Normalization Ratio 1.7(H) 0.9 - 1.1 DANETTE VALENCIA Blood specimen (specimen) 01/30/2013 6:03 AM EDT 01/30/2013 6:14 AM EDT Narrative Resulting Agency Comment Spec In Lab Lesly Hope MD HEMATOLOGY ORDERABLE S DANETTE VALENCIA * Place PICC Line: Contact Vascular Access Page [phone] (01/29/2013 2:52 PM EDT) Narrative Toro Miller [...] to the planned procedure. Hand Hygiene: The it account manager did perform hand hygiene prior to line insertion. Catheter type: PICC Lot number: [id number] Procedure Technique: Skin was prepped with chlorhexidine. [...] to the planned procedure. Hand Hygiene: The it account manager did perform hand hygiene prior to line insertion. Catheter type: PICC Lot number: [id number] Procedure Technique: Skin was prepped with chlorhexidine. [...] * (ABNORMAL) APTT (01/29/2013 7:02 AM EDT) Partial Thromboplastin Time 45(H) 25 - 35 sec DANETTE MILLENNIUM Comment: Recommended therapeutic PTT range for full dose unfractionated heparin is 80-114 seconds. Blood specimen (specimen) 01/29/2013 7:02 AM EDT 01/29/2013 7:25 AM EDT Narrative Resulting Agency Comment Spec In Lab Lesly Hope MD HEMATOLOGY ORDERABLE S Performing Organization Address [facility] de Phone Number DANETTE [employer] * (ABNORMAL) Prothrombin Time (01/29/2013 7:02 AM EDT) Prothrombin Time 21.0(H) 12.0 - 15.0 sec DANETTE MILLENNIUM Comment: [facility] Transfusion Committee Guidelines: INR less than 2.0, PTT less than OR equal to 43.5 seconds, or Fibrinogen greater than or equal to 100 mg/dl indicate adequate procoagulant activity for hemostasis in patients without underlying bleeding disorders. International Normalization Ratio 1.8(H) 0.9 - 1.1 CERDAKSHA Bass ManagerENNIUM Blood specimen (specimen) 01/29/2013 7:02 AM EDT 01/29/2013 7:25 AM EDT Narrative Resulting Agency Comment Spec In Lab Lesly Hope MD HEMATOLOGY ORDERABLE S Performing Organization Address [facility] de Phone Number DANETTE HARTMANENNIUM * (ABNORMAL) Differential, Manual (01/29/2013 2:16 AM EDT) Segmented Neutrophils Manual 75(H) 34 - 71 % CERNER MILLENNIUM Band % 1 0 - 12 % CERNER MILLENNIUM Lymphocyte Manual 10(L) 19 - 53 % CE RNER MILLENNIUM Monocyte Manual 6 4 - 13 % CERN ER MILLENNIUM Eosinophil Manual 7 0 - 7 % CE RNER MILLENNIUM Metamyelocyte Manual 1(H) 0 - 0 % CERNER MILLENNIUM Segs Absolute Manual 8.5(H) 1.5 - 6.3 x10(3)/mc L CERNER MILLENNIUM Band Abs 0.1(L) 0.2 - 0.6 x10(3)/mc L CERNER MILLENNIUM ANC 8.66(H) 1.50 - 6.30 x10(3)/mc L CERNER MILLENNIUM Lymph Absolute Manual 1.1 1.0 - 3.6 x10(3)/mc L CERNER MILLENNIUM Monocyte Absolute Manual 0.7 0.2 - 1.0 x10(3)/mc L CERNER MILLENNIUM Eos Absolute Manual 0.8(H) 0.0 - 0.5 x10(3)/mc L CERNER MILLENNIUM Platinum Absolute Manual 0.1(H) 0.0 - 0.0 x10(3)/mc L CERNER MILLENNIUM Total Cells Ct 100 CERNE R MILLENNIUM Plat estimate Normal CERNER MILLENNIUM RBC Morphology Normal CERNE [...] of Diabetes Mellitus, Position Statement from the [employer] Diabetes Association. ??Diabetes Care, Volume 33, Supplement 1, Oct 2009 Blood Urea Nitrogen 14 10 - 20 mg/dL CERNER MILLENNIUM Creatinine 1.08 0.80 - 1.50 mg/dL CERNER MILLENNIUM Comment: Please note that the pediatric reference intervals supplied above were not validated at [facility]. Results from pediatric patients should be interpreted [...] 108(H) 98 - 107 mmol/L CERNER MILLENNIUM Carbon Dioxide 27 22 - 31 mmol/L CERNER MILLENNIUM Anion Gap 7 5 - 15 mmol/L CERNER MILLENNIUM Calcium 8.2(L) 8.5 - 10.5 mg/dL CERNER MILLENNIUM Est [...] NA, Dariana AK, Darren TS, Darci AD, aHlle [place]. Relative performance of the MDRD and CKD-EPI equations for estimating glomerular filtration rate among patients with varied clinical presentations. Clin J Am Soc Nephrol;6:1963-72. Blood specimen (specimen) 01/29/2013 2:16 AM EDT 01/29/2013 2:35 AM EDT Narrative Resulting Agency Comment Spec In Lab Lesly Hope MD CHEMISTRY ORDERABLES DANETTE VALENCIA * (ABNORMAL) CBC (with Diff) (01/29/2013 2:16 AM EDT) White Blood Cell 11.4(H) 4.0 - 10.0 x10(3)/mc L CERNER MILLENNIUM Red Blood Cell 3.02(L) 4.63 - 6.08 x10(6)/mc L CERNER MILLENNIUM Hemoglobin 8.1(L) 13.7 - 17.5 gm/dL CERDAKSHA MILLENNIUM Hematocrit 26.4(L) 40.0 - 51.0 % CERNER MILLENNIUM Mean Cell Volume 87.4 79.0 - 92.0 fL CERNER MILLENNIUM Mean Cell Hemoglobin 26.8 25.6 - 32.2 pg CERNER MILLENNIUM Mean Cell Hemoglobin Concentration 30.7(L) 32.0 - 36.5 gm/dL CERNER MILLENNIUM Platelet 341 145 - 370 x10(3)/mc L CERNER MILLENNIUM RDW Standard Deviation 62.3(H) 35.0 - 46.0 fL CERNER MILLENNIUM RDW coefficient of variation 19.2(H) 10.9 - 14.4 % CERNER MILLENNIUM Mean Platelet Volume 9.7 9.0 - 12.0 fL CERNER MILLENNIUM Blood specimen (specimen) 01/29/2013 2:16 AM EDT 01/29/2013 2:35 AM EDT Narrative Resulting Agency Comment Spec In Lab Lesly Hope MD HEMATOLOGY ORDERABLE S Performing Organization Address [facility] Co de Phone Number DANETTE PRIDEIUM * (ABNORMAL) Prothrombin Time (01/28/2013 2:29 AM EDT) Prothrombin Time 21.0(H) 12.0 - 15.0 sec CERDAKSHA HARTMANENNIUM Comment: [facility] Transfusion Committee Guidelines: INR less than 2.0, PTT less than OR equal to 43.5 seconds, or Fibrinogen greater than or equal to 100 mg/dl indicate adequate procoagulant activity for hemostasis in patients without underlying bleeding disorders. International Normalization Ratio 1.8(H) 0.9 - 1.1 CERDAKSHA HARTMANENNIUM Blood specimen (specimen) 01/28/2013 2:29 AM EDT 01/28/2013 2:40 AM EDT Narrative Resulting Agency Comment Spec In Lab Lesly Hope MD HEMATOLOGY ORDERABLE S Performing Organization Address [facility] Co de Phone Number DANETTE PRIDEIUM * (ABNORMAL) Differential, Automated (01/27/2013 12:27 PM EDT) Neutrophil % 76.6(H) 34.0 - 71.0 % CERNER MILLENNIUM Neutrophil Absolute 10.01(H) 1.50 - 6.30 x10(3)/mc L CERNER MILLENNIUM Lymph % 12.1(L) 19.0 - 53.0 % CERNER MILLENNIUM Lymphocytes Abs 1.6 1.0 - 3.6 x10(3)/mc L CERNER MILLENNIUM Monocyte % 4.1 4.0 - 13.0 % CERNER MILLENNIUM Monocyte Abs 0.5 0.2 - 1.0 x10(3)/mc L CERNER MILLENNIUM Eos % 6.2 0.0 - 7.0 % CERNER MILLENNIUM Eosinophils Abs 0.8(H) 0.0 - 0.5 x10(3)/mc L CERNER MILLENNIUM Basophil % 0.7 0.0 - 2.0 % CERNER MILLENNIUM Baso [...] EDT Presley Madrid MD HEMATOLOGY ORDERABLE S DANETTE HARTMANENNIUM * Scan, Peripheral Blood (01/27/2013 12:27 PM EDT) Plat estimate Normal CERNER MILLENNIUM RBC Morphology Normal CERNE R MILLENNIUM Blood specimen (specimen) 01/27/2013 12:27 PM EDT 01/27/2013 12:37 PM EDT Narrative Resulting Agency Comment Spec In Lab Presley Madrid MD HEMATOLOGY ORDERABLE S DANETTE VALENCIA * (ABNORMAL) APTT (01/27/2013 12:27 PM EDT) Partial Thromboplastin Time 40(H) 25 - 35 sec CERDAKSHA HARTMANENNIUM Comment: Recommended therapeutic PTT range for full dose unfractionated heparin is 80-114 seconds. Blood specimen (specimen) 01/27/2013 12:27 PM EDT 01/27/2013 12:37 PM EDT Narrative Resulting Agency Comment Spec In Lab Presley Madrid MD HEMATOLOGY ORDERABLE S Performing Organization Address [facility] Co de Phone Number DANETTE VALENCIA * (ABNORMAL) Prothrombin Time (01/27/2013 12:27 PM EDT) Prothrombin Time 20.8(H) 12.0 - 15.0 sec DANETTE VALENCIA Comment: [facility] Transfusion Committee Guidelines: INR less than 2.0, PTT less than OR equal to 43.5 seconds, or Fibrinogen greater than or equal to 100 mg/dl indicate adequate procoagulant activity for hemostasis in patients without underlying bleeding disorders. International Normalization Ratio 1.7(H) 0.9 - 1.1 [facility] VALENCIA Blood specimen (specimen) 01/27/2013 12:27 PM EDT 01/27/2013 12:37 PM EDT Narrative Resulting Agency Comment Spec In Lab Presley Madrid MD HEMATOLOGY ORDERABLE S Performing Organization Address [facility]/ZIP Co de Phone Number DANETTE VALENCIA * (ABNORMAL) BMP w/fasting Glucose (01/27/2013 12:27 PM EDT) Glucose Fasting 136(H) 65 - 99 mg/dL [facility] HARTMANENNIUM Comment: ?Fasting* Glucose Interpretive Criteria Normal ?65-99 [...] of Diabetes Mellitus, Position Statement from the [employer]eless Diabetes Association. ??Diabetes Care, Volume 33, Supplement 1, Oct 2009 Blood Urea Nitrogen 15 10 - 20 mg/dL CERNER MILLENNIUM Creatinine 1.13 0.80 - 1.50 mg/dL CERNER MILLENNIUM Comment: Please note that the pediatric reference intervals supplied above were not validated at [facility]. Results from pediatric patients should be interpreted [...] 108(H) 98 - 107 mmol/L CERNER MILLENNIUM Carbon Dioxide 24 22 - 31 mmol/L CERNER MILLENNIUM Anion Gap 8 5 - 15 mmol/L CERNER MILLENNIUM Calcium 8.5 8.5 - 10.5 mg/dL CERNER MILLENNIUM Est [...] In Lab Presley Madrid MD CHEMISTRY ORDERABLES [facility] * (ABNORMAL) CBC (with Diff) (01/27/2013 12:27 PM EDT) White Blood Cell 13.1(H) 4.0 - 10.0 x10(3)/mc L CERNER MILLENNIUM Red Blood Cell 2.93(L) 4.63 - 6.08 x10(6)/mc L CERNER MILLENNIUM Hemoglobin 7.9(L) 13.7 - 17.5 gm/dL CERNER MILLENNIUM Hematocrit 25.7(L) 40.0 - 51.0 % CERNER MILLENNIUM Mean Cell Volume 87.7 79.0 - 92.0 fL CERNER MILLENNIUM Mean Cell Hemoglobin 27.0 25.6 - 32.2 pg CERNER MILLENNIUM Mean Cell Hemoglobin Concentration 30.7(L) 32.0 - 36.5 gm/dL CERNER MILLENNIUM Platelet 249 145 - 370 x10(3)/mc L DANETTE VALENCIA RDW Standard Deviation 63.6(H) 35.0 - 46.0 fL DANETTE VALENCIA RDW coefficient of variation 19.7(H) 10.9 - 14.4 % DANETTE VALENCIA Mean Platelet Volume 9.2 9.0 - 12.0 fL DANETTE VALENCIA Blood specimen (specimen) 01/27/2013 12:27 PM EDT 01/27/2013 12:37 PM EDT Narrative Resulting Agency Comment Spec In Lab Presley Madrid MD HEMATOLOGY ORDERABLE S DANETTE VALENCIA * Blood culture (01/27/2013 2:26 AM EDT) Blood Culture ? Patient Name: DILLAN RODGERS ?Ordered By: LESLY HOPE ? MR#: [id number] ?LOC: ??2WST ? /Sex: ??1950 (62 years), [...] Hope MD MICROBIOLOGY - BLOOD ORDERABLES CERDAKSHA MILLENNIUM * (ABNORMAL) Differential, Automated (01/27/2013 2:00 AM EDT) Neutrophil % 77.5(H) 34.0 - 71.0 % CERNER MILLENNIUM Neutrophil Absolute 9.37(H) 1.50 - 6.30 x10(3)/mc L CERNER MILLENNIUM Lymph % 9.4(L) 19.0 - 53.0 % CERNER MILLENNIUM Lymphocytes Abs 1.1 1.0 - 3.6 x10(3)/mc L CERNER MILLENNIUM Monocyte % 6.2 4.0 - 13.0 % CERNER MILLENNIUM Monocyte Abs 0.8 0.2 - 1.0 x10(3)/mc L CERNER MILLENNIUM Eos % 6.0 0.0 - 7.0 % CERNER MILLENNIUM Eosinophils Abs 0.7(H) 0.0 - 0.5 x10(3)/mc L CERNER MILLENNIUM Basophil % 0.5 0.0 - 2.0 % CERNER MILLENNIUM Baso [...] differential will be performed. Immature Gran Absolute 0.05 0.00 - 0.05 x10(3)/mc L CERNER MILLENNIUM Blood specimen (specimen) 01/27/2013 2:00 AM EDT 01/27/2013 2:11 AM EDT Presley Madrid MD HEMATOLOGY ORDERABLE S CERNER MILLENNIUM * (ABNORMAL) CBC (with Diff) (01/27/2013 2:00 AM EDT) White Blood Cell 12.1(H) 4.0 - 10.0 x10(3)/mc L CERNER MILLENNIUM Red Blood Cell 2.74(L) 4.63 - 6.08 x10(6)/mc L CERNER MILLENNIUM Hemoglobin 7.4(L) 13.7 - 17.5 gm/dL CERNER MILLENNIUM Hematocrit 24.0(L) 40.0 - 51.0 % CERNER MILLENNIUM Mean Cell Volume 87.6 79.0 - 92.0 fL CERNER MILLENNIUM Mean Cell Hemoglobin 27.0 25.6 - 32.2 pg CERNER MILLENNIUM Mean Cell Hemoglobin Concentration 30.8(L) 32.0 - 36.5 gm/dL CERNER MILLENNIUM Platelet 257 145 - 370 x10(3)/mc L CERNER MILLENNIUM RDW Standard Deviation 64.0(H) 35.0 - 46.0 fL CERNER MILLENNIUM RDW coefficient of variation 19.8(H) 10.9 - 14.4 % CERNER MILLENNIUM Mean Platelet Volume 9.5 9.0 - 12.0 fL CERNER MILLENNIUM Blood specimen (specimen) 01/27/2013 2:00 AM EDT 01/27/2013 2:11 AM EDT Narrative Resulting Agency Comment Spec In Lab Presley Madrid MD HEMATOLOGY ORDERABLE S DANETTE HARTMANENNIUM * (ABNORMAL) BMP w/fasting Glucose (01/27/2013 2:00 AM EDT) [facility] Glucose Fasting 126(H) 65 - 99 mg/dL [...] of Diabetes Mellitus, Position Statement from the [employer] Diabetes Association. ??Diabetes Care, Volume 33, Supplement 1, Oct 2009 Blood Urea Nitrogen 18 10 - 20 mg/dL CERNER MILLENNIUM Creatinine 1.20 0.80 - 1.50 mg/dL CERNER MILLENNIUM Comment: Please note that the pediatric reference intervals supplied above were not validated at [facility]. Results from pediatric patients should be interpreted [...] 112(H) 98 - 107 mmol/L CERNER MILLENNIUM Carbon Dioxide 23 22 - 31 mmol/L CERNER MILLENNIUM Anion Gap 9 5 - 15 mmol/L CERNER MILLENNIUM Anion Gap 9 5 - 15 mmol/L CERNER MILLENNIUM Calcium 8.1(L) 8.5 - 10.5 mg/dL CERNER MILLENNIUM Est [...] (ABNORMAL) Prothrombin Time (01/27/2013 2:00 AM EDT) Prothrombin Time 22.7(H) 12.0 - 15.0 sec DANETTE VALENCIA Comment: [facility] Transfusion Committee Guidelines: INR less than 2.0, PTT less than OR equal to 43.5 seconds, or Fibrinogen greater than or equal to 100 mg/dl indicate adequate procoagulant activity for hemostasis in patients without underlying bleeding disorders. International Normalization Ratio 1.9(H) 0.9 - 1.1 [facility] Blood specimen (specimen) 01/27/2013 2:00 AM EDT 01/27/2013 2:11 AM EDT Narrative Resulting Agency Comment Spec In Lab Presley Madrid MD HEMATOLOGY ORDERABLE S Performing Organization Address [facility] de Phone Number [facility] * (ABNORMAL) APTT (01/27/2013 2:00 AM EDT) Partial Thromboplastin Time 53(H) 25 - 35 sec [facility] Comment: Recommended therapeutic PTT range for full dose unfractionated heparin is 80-114 seconds. Blood specimen (specimen) 01/27/2013 2:00 AM EDT 01/27/2013 2:11 AM EDT Narrative Resulting Agency Comment Spec In Lab Presley Madrid MD HEMATOLOGY ORDERABLE S Performing Organization Address [facility] de Phone Number [facility] Bass ManagerCHANDLER REGIONAL MEDICAL CENTERSNAPin Software * Blood culture (01/27/2013 2:00 AM EDT) Blood Culture ? Patient Name: DILLAN RODGERS ?Ordered By: LESLY HOPE ? MR#: [id number] ?LOC: ??2WST ? /Sex: ??1950 (62 years), [...] Procedure: ? Transesophageal Echocardiogram Patient: ? VISHAL Ocampo ? (Age): 1950(62) Med Rec#: ?[id number] ? Sex: ?M ? Site Loc: ?[facility] ? Ht / Wt: ??(cm)/(kg) ? Pt. Loc: ? ICU ?BSA: ? Study Date: ?01/26/2013 ? Pt. Type: Inpatient Tape: ? Referring: Lesly Hope ([id number]) Referring: ABBY CUMMINS F Reading: Earnest Yates ([id number]) Needle Grader: Yanira Sexton ([id number]) Interpreting Fellow: Yanira Sexton ([id number]) Diagnosis:CPT Code(s): Indication(s): ??Endocarditis Rhythm: Sinus SUMMARY: [...] report has been electronically signed by: Earnest Yates. ? 01/26/2013 15:07:26 Images reviewed and interpretation verified [facility] Cardiac Ultrasound Laboratory Procedure Note Earnest Yates MD - 01/26/2013 Procedure: Transesophageal Echocardiogram Patient: VISHAL Ocampo (Age): 1950(62) Med Rec#: [id number] Sex: M Site Loc: [facility] Ht / Wt: (cm)/(kg) Pt. Loc: ICU BSA: Study Date: 01/26/2013 Pt. Type: Inpatient Tape: Referring: Lesly Hope [id number]) Referring: ABBY CUMMINS F Reading: Earnest Yates ([id number]) Needle Grader: Yanira Sexton ([id number]) Interpreting Fellow: Yanira Sexton ([id number]) Diagnosis:CPT Code(s): Indication(s): Endocarditis Rhythm: Sinus SUMMARY: [...] 01/26/2013 15:07:26 Images reviewed and interpretation verified [facility] Cardiac Ultrasound Laboratory Lesly Hope MD ECHO ORDERABLES * (ABNORMAL) Differential, Automated (01/26/2013 1:10 PM EDT) Neutrophil % 81.4(H) 34.0 - 71.0 % CERNER MILLENNIUM Neutrophil Absolute 9.42(H) 1.50 - 6.30 x10(3)/mc L CERNER MILLENNIUM Lymph % 9.1(L) 19.0 - 53.0 % CERNER MILLENNIUM Lymphocytes Abs 1.1 1.0 - 3.6 x10(3)/mc L CERNER MILLENNIUM Monocyte % 3.7(L) 4.0 - 13.0 % CERNER MILLENNIUM Monocyte Abs 0.4 0.2 - 1.0 x10(3)/mc L CERNER MILLENNIUM Eos % 5.3 0.0 - 7.0 % CERNER MILLENNIUM Eosinophils Abs 0.6(H) 0.0 - 0.5 x10(3)/mc L CERNER MILLENNIUM Basophil % 0.4 0.0 - 2.0 % CERNER MILLENNIUM Baso [...] differential will be performed. Immature Gran Absolute 0.01 0.00 - 0.05 x10(3)/mc L CERNER MILLENNIUM Blood specimen (specimen) 01/26/2013 1:10 PM EDT 01/26/2013 1:18 PM EDT Lesly Hope MD HEMATOLOGY ORDERABLE S DANETTE PRIDEIUM * (ABNORMAL) BMP w/fasting Glucose (01/26/2013 1:10 PM EDT) [facility] Glucose Fasting 88 65 - 99 mg/dL [...] of Diabetes Mellitus, Position Statement from the [employer]. ??Diabetes Care, Volume 33, Supplement 1, Oct 2009 Blood Urea Nitrogen 18 10 - 20 mg/dL CERNER MILLENNIUM Creatinine 1.14 0.80 - 1.50 mg/dL CERNER MILLENNIUM Comment: Please note that the pediatric reference intervals supplied above were not validated at [facility]. Results from pediatric patients should be interpreted [...] 115(H) 98 - 107 mmol/L CERNER MILLENNIUM Carbon Dioxide 20(L) 22 - 31 mmol/L CERNER MILLENNIUM Anion Gap 9 5 - 15 mmol/L CERNER MILLENNIUM Calcium 7.6(L) 8.5 - 10.5 mg/dL CERNER MILLENNIUM Est [...] In Lab Lesly Hope MD CHEMISTRY ORDERABLES [facility] * (ABNORMAL) CBC (with Diff) (01/26/2013 1:10 PM EDT) White Blood Cell 11.6(H) 4.0 - 10.0 x10(3)/mc L CERNER MILLENNIUM Red Blood Cell 2.66(L) 4.63 - 6.08 x10(6)/mc L CERNER MILLENNIUM Hemoglobin 7.3(L) 13.7 - 17.5 gm/dL CERNER MILLENNIUM Hematocrit 23.3(L) 40.0 - 51.0 % CERNER MILLENNIUM Mean Cell Volume 87.6 79.0 - 92.0 fL CERNER MILLENNIUM Mean Cell Hemoglobin 27.4 25.6 - 32.2 pg CERNER MILLENNIUM Mean Cell Hemoglobin Concentration 31.3(L) 32.0 - 36.5 gm/dL CERNER MILLENNIUM Platelet 238 145 - 370 x10(3)/mc L CERNER MILLENNIUM RDW Standard Deviation 64.3(H) 35.0 - 46.0 fL CERNER MILLENNIUM RDW coefficient of variation 20.0(H) 10.9 - 14.4 % CERNER MILLENNIUM Mean Platelet Volume 9.7 9.0 - 12.0 fL CERNER MILLENNIUM Blood specimen (specimen) 01/26/2013 1:10 PM EDT 01/26/2013 1:18 PM EDT Narrative Resulting Agency Comment Spec In Lab Lesly Hope MD HEMATOLOGY ORDERABLE S CERNER MINNIEENNIUM * (ABNORMAL) Differential, Automated (01/26/2013 1:50 AM EDT) Neutrophil % 80.4(H) 34.0 - 71.0 % CERNER MILLENNIUM Neutrophil Absolute 7.56(H) 1.50 - 6.30 x10(3)/mc L CERNER MILLENNIUM Lymph % 8.8(L) 19.0 - 53.0 % CERNER MILLENNIUM Lymphocytes Abs 0.8(L) 1.0 - 3.6 x10(3)/mc L CERNER MILLENNIUM Monocyte % 5.5 4.0 - 13.0 % CERNER MILLENNIUM Monocyte Abs 0.5 0.2 - 1.0 x10(3)/mc L CERNER MILLENNIUM Eos % 4.7 0.0 - 7.0 % CERNER MILLENNIUM Eosinophils Abs 0.4 0.0 - 0.5 x10(3)/mc L CERNER MILLENNIUM Basophil % 0.4 0.0 - 2.0 % CERNER MILLENNIUM Baso [...] differential will be performed. Immature Gran Absolute 0.02 0.00 - 0.05 x10(3)/mc L CERNER MILLENNIUM Blood specimen (specimen) 01/26/2013 1:50 AM EDT 01/26/2013 2:08 AM EDT Presley Madrid MD HEMATOLOGY ORDERABLE S [facility] * Blood culture (01/26/2013 1:50 AM EDT) Blood Culture ? Patient Name: DILLAN RODGERS ?Ordered By: LESLY HOPE ? MR#: [id number] ?LOC: ??2WST ? /Sex: ??1950 (62 years), ? Male ? PROCEDURE: Blood Culture ?SOURCE: Blood ? COLLECTED: 01/26/2013 01:50 ? STARTED: 01/26/2013 02:34 ? FINAL REPORT ? Final Report ? Verified:2012 15:10 ? No growth at 5 days. ? PRELIMINARY REPORT ? Preliminary Report ? Verified:2012 07:10 ? No growth at 4 days. ? [facility] Blood specimen (specimen) 01/26/2013 1:50 AM EDT 01/26/2013 2:34 AM EDT Narrative Resulting Agency Comment Spec In Lab Lesly Hope MD MICROBIOLOGY - BLOOD ORDERABLES Performing Organization Address [facility] de Phone Number [facility] * (ABNORMAL) APTT (01/26/2013 1:50 AM EDT) Partial Thromboplastin Time 60(H) 25 - 35 sec [facility] Comment: Recommended therapeutic PTT range for full dose unfractionated heparin is 80-114 seconds. Blood specimen (specimen) 01/26/2013 1:50 AM EDT 01/26/2013 2:08 AM EDT Narrative Resulting Agency Comment Spec In Lab Presley Madrid MD HEMATOLOGY ORDERABLE S Performing Organization Address [facility] de Phone Number [facility] * (ABNORMAL) Prothrombin Time (01/26/2013 1:50 AM EDT) Prothrombin Time 25.6(H) 12.0 - 15.0 sec [facility] Comment: [facility] Transfusion Committee Guidelines: INR less than [...] CERDAKSHA HARTMANENNIUM * (ABNORMAL) BMP w/fasting Glucose (01/26/2013 1:50 AM EDT) Glucose Fasting 94 65 - 99 mg/dL [...] of Diabetes Mellitus, Position Statement from the [employer]. ??Diabetes Care, Volume 33, Supplement 1, Oct 2009 Blood Urea Nitrogen 19 10 - 20 mg/dL CERNER MILLENNIUM Creatinine 1.38 0.80 - 1.50 mg/dL CERNER MILLENNIUM Comment: Please note that the pediatric reference intervals supplied above were not validated at [facility]. Results from pediatric patients should be interpreted [...] 111(H) 98 - 107 mmol/L CERNER MILLENNIUM Carbon Dioxide 23 22 - 31 mmol/L CERNER MILLENNIUM Anion Gap 6 5 - 15 mmol/L CERNER MILLENNIUM Calcium 7.8(L) 8.5 - 10.5 mg/dL CERNER MILLENNIUM Est Glomerular Filtration Rate 52(L) >=60 CERNER MILLENNIUM Comment: The National [...] Madrid MD CHEMISTRY ORDERABLES Performing Organization Address [facility]/ZIP Co de Phone Number CERDAKSHA MILLENNIUM * (ABNORMAL) CBC (with Diff) (01/26/2013 1:50 AM EDT) White Blood Cell 9.4 4.0 - 10.0 x10(3)/mc L CERNER MILLENNIUM Red Blood Cell 2.56(L) 4.63 - 6.08 x10(6)/mc L CERNER MILLENNIUM Hemoglobin 7.0(L) 13.7 - 17.5 gm/dL CERNER MILLENNIUM Hematocrit 22.2(L) 40.0 - 51.0 % CERNER MILLENNIUM Mean Cell Volume 86.7 79.0 - 92.0 fL CERNER MILLENNIUM Mean Cell Hemoglobin 27.3 25.6 - 32.2 pg CERNER MILLENNIUM Mean Cell Hemoglobin Concentration 31.5(L) 32.0 - 36.5 gm/dL CERNER MILLENNIUM Platelet 220 145 - 370 x10(3)/mc L CERNER MILLENNIUM RDW Standard Deviation 63.1(H) 35.0 - 46.0 fL CERNER MILLENNIUM RDW coefficient of variation 19.8(H) 10.9 - 14.4 % CERNER MILLENNIUM Mean Platelet Volume 9.7 9.0 - 12.0 fL CERNER MILLENNIUM Blood specimen (specimen) 01/26/2013 1:50 AM EDT 01/26/2013 2:08 AM EDT Narrative Resulting Agency Comment Spec In Lab Presley Madrid MD HEMATOLOGY ORDERABLE S DANETTE PRIDEIUM * Vancomycin, trough (01/25/2013 10:30 PM EDT) Vancomycin, Trough 10.1 mg/L C ERNER MILLENNIUM Comment: Therapeutic range for complicated infections [...] MD CHEMISTRY ORDERABLES CERNER MILLENNIUM * (ABNORMAL) Differential, Automated (01/25/2013 1:00 PM EDT) Neutrophil % 85.2(H) 34.0 - 71.0 % CERNER MILLENNIUM Neutrophil Absolute 9.02(H) 1.50 - 6.30 x10(3)/mc L CERNER MILLENNIUM Lymph % 4.8(L) 19.0 - 53.0 % CERNER MILLENNIUM Lymphocytes Abs 0.5(L) 1.0 - 3.6 x10(3)/mc L CERNER MILLENNIUM Monocyte % 5.1 4.0 - 13.0 % CERNER MILLENNIUM Monocyte Abs 0.5 0.2 - 1.0 x10(3)/mc L CERNER MILLENNIUM Eos % 2.7 0.0 - 7.0 % CERNER MILLENNIUM Eosinophils Abs 0.3 0.0 - 0.5 x10(3)/mc L CERNER MILLENNIUM Basophil % 0.5 0.0 - 2.0 % CERNER MILLENNIUM Baso [...] differential will be performed. Immature Gran Absolute 0.18(H) 0.00 - 0.05 x10(3)/mc L CERNER MILLENNIUM Blood specimen (specimen) 01/25/2013 1:00 PM EDT 01/25/2013 1:47 PM EDT Lesly Hope MD HEMATOLOGY ORDERABLE S DANETTE HARTMANENNIUM * (ABNORMAL) BMP w/fasting Glucose (01/25/2013 [...] of Diabetes Mellitus, Position Statement from the [employer] Diabetes [employer]. ??Diabetes Care, Volume 33, Supplement 1, Oct 2009 Blood Urea Nitrogen 22(H) 10 - 20 mg/dL CERNER MILLENNIUM Creatinine 1.58(H) 0.80 - 1.50 mg/dL CERNER MILLENNIUM Comment: Please note that the pediatric reference intervals supplied above were not validated at [facility]. Results from pediatric patients should be interpreted [...] 111(H) 98 - 107 mmol/L CERNER MILLENNIUM Carbon Dioxide 19(L) 22 - 31 mmol/L CERNER MILLENNIUM Anion Gap 12 5 - 15 mmol/L CERNER MILLENNIUM Calcium 7.8(L) 8.5 - 10.5 mg/dL CERNER MILLENNIUM Est Glomerular Filtration Rate 45(L) >=60 CERNER MILLENNIUM Comment: The National [...] Hope MD CHEMISTRY ORDERABLES Performing Organization Address [facility] Phone Number DANETTE PRIDEIUM * (ABNORMAL) APTT (01/25/2013 1:00 PM EDT) Partial Thromboplastin Time 58(H) 25 - 35 sec CERDAKSHA MILLENNIUM Comment: Recommended therapeutic PTT range for full dose unfractionated heparin is 80-114 seconds. Blood specimen (specimen) 01/25/2013 1:00 PM EDT 01/25/2013 1:47 PM EDT Narrative Resulting Agency Comment Spec In Lab Lesly Hope MD HEMATOLOGY ORDERABLE S Performing Organization Address [facility] Phone Number DANETTE HARTMANENNIUM * (ABNORMAL) Prothrombin Time (01/25/2013 1:00 PM EDT) Prothrombin Time 28.7(H) 12.0 - 15.0 sec CERDAKSHA MILLENNIUM Comment: [facility] Transfusion Committee Guidelines: INR less than 2.0, PTT less than OR equal to 43.5 seconds, or Fibrinogen greater than or equal to 100 mg/dl indicate adequate procoagulant activity for hemostasis in patients without underlying bleeding disorders. International Normalization Ratio 2.6(H) 0.9 - 1.1 DANETTE MILLENNIUM Blood specimen (specimen) 01/25/2013 1:00 PM EDT 01/25/2013 1:47 PM EDT Narrative Resulting Agency Comment Spec In Lab Lesly Hope MD HEMATOLOGY ORDERABLE S Performing Organization Address [facility] de Phone Number DANETTE HARTMANENNIUM * (ABNORMAL) CBC (with Diff) (01/25/2013 1:00 PM EDT) White Blood Cell 10.6(H) 4.0 - 10.0 x10(3)/mc L CERNER MILLENNIUM Red Blood Cell 2.82(L) 4.63 - 6.08 x10(6)/mc L CERNER MILLENNIUM Hemoglobin 7.6(L) 13.7 - 17.5 gm/dL CERNER MILLENNIUM Hematocrit 24.6(L) 40.0 - 51.0 % CERNER MILLENNIUM Mean Cell Volume 87.2 79.0 - 92.0 fL CERNER MILLENNIUM Mean Cell Hemoglobin 27.0 25.6 - 32.2 pg CERNER MILLENNIUM Mean Cell Hemoglobin Concentration 30.9(L) 32.0 - 36.5 gm/dL CERNER MILLENNIUM Platelet 262 145 - 370 x10(3)/mc L CERNER MILLENNIUM RDW Standard Deviation 63.0(H) 35.0 - 46.0 fL CERNER MILLENNIUM RDW coefficient of variation 19.7(H) 10.9 - 14.4 % CERNER MILLENNIUM Mean Platelet Volume 9.9 9.0 - 12.0 fL CERNER MILLENNIUM Blood specimen (specimen) 01/25/2013 1:00 PM EDT 01/25/2013 1:47 PM EDT Narrative Resulting Agency Comment Spec In Lab Lesly Hope MD HEMATOLOGY ORDERABLE S Performing Organization Address [facility]/ZIP Co de Phone Number [facility] * Lactic acid, plasma (01/25/2013 7:48 AM EDT) Lactic Acid 1.1 0.5 - 2.2 mmol/L [facility] Blood specimen (specimen) 01/25/2013 7:48 AM EDT 01/25/2013 7:58 AM EDT Narrative Resulting Agency Comment Spec In Lab Lesly Hope MD CHEMISTRY ORDERABLES Performing Organization Address [facility]/ZIP Co de Phone Number [facility] * Lactic acid, plasma (01/25/2013 3:45 AM EDT) Lactic Acid 1.2 0.5 - 2.2 mmol/L [facility] Blood specimen (specimen) 01/25/2013 3:45 AM EDT 01/25/2013 3:53 AM EDT Narrative Resulting Agency Comment Spec In Lab Lesly Hope MD CHEMISTRY ORDERABLES CERNER MILLENNIUM * (ABNORMAL) Differential, Automated (01/25/2013 1:15 AM EDT) Neutrophil % 86.9(H) 34.0 - 71.0 % CERNER MILLENNIUM Neutrophil Absolute 10.57(H) 1.50 - 6.30 x10(3)/mc L CERNER MILLENNIUM Lymph % 4.8(L) 19.0 - 53.0 % CERNER MILLENNIUM Lymphocytes Abs 0.6(L) 1.0 - 3.6 x10(3)/mc L CERNER MILLENNIUM Monocyte % 6.4 4.0 - 13.0 % CERNER MILLENNIUM Monocyte Abs 0.8 0.2 - 1.0 x10(3)/mc L CERNER MILLENNIUM Eos % 0.7 0.0 - 7.0 % CERNER MILLENNIUM Eosinophils Abs 0.1 0.0 - 0.5 x10(3)/mc L CERNER MILLENNIUM Basophil % 0.2 0.0 - 2.0 % CERNER MILLENNIUM Baso [...] Absolute 0.12(H) 0.00 - 0.05 x10(3)/mc L CERNER MILLENNIUM Blood specimen (specimen) 01/25/2013 1:15 AM EDT 01/25/2013 1:24 AM EDT Presley Madrid MD HEMATOLOGY ORDERABLE S CERNER MINNIEENNIUM * (ABNORMAL) APTT (01/25/2013 1:15 AM EDT) Partial Thromboplastin Time 51(H) 25 - 35 sec [facility] Comment: Recommended therapeutic PTT range for full dose unfractionated heparin is 80-114 seconds. Blood specimen (specimen) 01/25/2013 1:15 AM EDT 01/25/2013 1:24 AM EDT Narrative Resulting Agency Comment Spec In Lab Presley Madrid MD HEMATOLOGY ORDERABLE S Performing Organization Address [facility] de Phone Number [facility] * (ABNORMAL) Prothrombin Time (01/25/2013 1:15 AM EDT) Prothrombin Time 29.4(H) 12.0 - 15.0 sec [facility] Comment: [facility] Transfusion Committee Guidelines: INR less than 2.0, PTT less than OR equal to 43.5 seconds, or Fibrinogen greater than or equal to 100 mg/dl indicate adequate procoagulant activity for hemostasis in patients without underlying bleeding disorders. International Normalization Ratio 2.7(H) 0.9 - 1.1 [facility] Blood specimen (specimen) 01/25/2013 1:15 AM EDT 01/25/2013 1:24 AM EDT Narrative Resulting Agency Comment Spec In Lab Presley Madrid MD HEMATOLOGY ORDERABLE S Performing Organization Address [facility] de Phone Number [facility] * (ABNORMAL) BMP w/fasting Glucose (01/25/2013 1:15 AM EDT) Glucose Fasting 120(H) 65 - 99 mg/dL [facility] Comment: ?Fasting* Glucose Interpretive Criteria Normal ?65-99 [...] of Diabetes Mellitus, Position Statement from the [employer] Diabetes [employer]. ??Diabetes Care, Volume 33, Supplement 1, Oct 2009 Blood Urea Nitrogen 26(H) 10 - 20 mg/dL CERNER MILLENNIUM Creatinine 2.15(H) 0.80 - 1.50 mg/dL CERNER MILLENNIUM Comment: Please note that the pediatric reference intervals supplied above were not validated at [facility]. Results from pediatric patients should be interpreted [...] 109(H) 98 - 107 mmol/L CERNER MILLENNIUM Carbon Dioxide 20(L) 22 - 31 mmol/L CERNER MILLENNIUM Anion Gap 9 5 - 15 mmol/L CERNER MILLENNIUM Calcium 7.7(L) 8.5 - 10.5 mg/dL CERNER MILLENNIUM Est Glomerular Filtration Rate 31(L) >=60 CERNER MILLENNIUM Comment: The National [...] Lab Presley Madrid MD CHEMISTRY ORDERABLES [facility] * (ABNORMAL) CBC (with Diff) (01/25/2013 1:15 AM EDT) White Blood Cell 12.2(H) 4.0 - 10.0 x10(3)/mc L CERNER MILLENNIUM Red Blood Cell 2.78(L) 4.63 - 6.08 x10(6)/mc L CERNER MILLENNIUM Hemoglobin 7.6(L) 13.7 - 17.5 gm/dL CERNER MILLENNIUM Hematocrit 24.4(L) 40.0 - 51.0 % CERNER MILLENNIUM Mean Cell Volume 87.8 79.0 - 92.0 fL CERNER MILLENNIUM Mean Cell Hemoglobin 27.3 25.6 - 32.2 pg CERNER MILLENNIUM Mean Cell Hemoglobin Concentration 31.1(L) 32.0 - 36.5 gm/dL CERNER MILLENNIUM Platelet 240 145 - 370 x10(3)/mc L CERNER MINNIEENNIUM RDW Standard Deviation 62.2(H) 35.0 - 46.0 fL CERNER MINNIEENNIUM RDW coefficient of variation 19.3(H) 10.9 - 14.4 % CERNER MILLENNIUM Mean Platelet Volume 9.6 9.0 - 12.0 fL CERDAKSHA HARTMANENNIUM Blood specimen (specimen) 01/25/2013 1:15 AM EDT 01/25/2013 1:24 AM EDT Narrative Resulting Agency Comment Spec In Lab Presley Madrid MD HEMATOLOGY ORDERABLE S Performing Organization Address City/[facility] Co de Phone Number DANETTE PRIDEIUM * Phosphorus (01/25/2013 1:15 AM EDT) Phosphorus 4.3 2.5 - 4.5 mg/dL DANETTE PRIDEIUM Blood specimen (specimen) 01/25/2013 1:15 AM EDT 01/25/2013 1:24 AM EDT Narrative Resulting Agency Comment Spec In Lab Presley Madrid MD CHEMISTRY ORDERABLES Performing Organization Address [place]/[facility] Co de Phone Number DANETTE PRIDEIUM * (ABNORMAL) Magnesium (01/25/2013 1:15 AM EDT) Magnesium 0.65(L) 0.69 - 1.07 mmol/L DANETTE PRIDEIUM Blood specimen (specimen) 01/25/2013 1:15 AM EDT 01/25/2013 1:24 AM EDT Narrative Resulting Agency Comment Spec In Lab Presley Madrid MD CHEMISTRY ORDERABLES Performing Organization Address [place]/[facility] Co de Phone Number DANETTE PRIDEIUM * Lactic acid, plasma (01/24/2013 11:45 PM EDT) Lactic Acid 2.2 0.5 - 2.2 mmol/L DANETTE HARTMANENNIUM Blood specimen (specimen) 01/24/2013 11:45 PM EDT 01/24/2013 11:53 PM EDT Narrative Resulting Agency Comment Spec In Lab Lesly Hope MD CHEMISTRY ORDERABLES DANETTE VALENCIA * XR chest PA or AP- 1 [...] GAS 2 ARTERIAL (01/24/2013 8:08 PM EDT) pH, Arterial 7.36 CERNER MILLENNIUM PCO2, Arterial 32(L) mmHg CERNE R MILLENNIUM PO2, Arterial 83(L) mmHg CERNER MILLENNIUM Bicarbonate, Arterial 17.5(L) mmol/L CERNER MILLENNIUM Base Excess, Arterial -7.9(L) mmol/L CERNER MILLENNIUM Hgb Blood Gas 9.1(L) gm/dL CERNER MILLENNIUM Comment: Total Hemoglobin (in gm/dL) ?Based on [facility] Hematology ranges: ?Age ?Reference Range Less than [...] 15.7 ? (male) ?? 13.7 to 17.5 Oxyhemoglobin, Arterial 94.3 % CERNER MILLENNIUM Carboxyhemoglob in, Arterial 2.0 % CERNER MILLENNIUM Comment: Nonsmokers: 0.5-1.5% COHB Smokers: Variable, but usually less than 10% Toxic: 20-30% COHB Lethal: Greater than 60% COHB Methemoglobin, Arterial 0.4 % CERNER MILLENNIUM Na Whole Blood [...] 01/24/2013 8:08 PM EDT Presley Madrid MD POINT OF CARE TEST O RDERABLES DANETTE PRIDEIUM * POCT Glucose (01/24/2013 5:50 PM EDT) Glucose, POC 93 60 - 199 mg/dL CERNER MILLENNIUM Comment: Supplemental ranges: <110 mg/dL before meals <200 mg/dL all other times of the day Blood specimen (specimen) 01/24/2013 5:50 PM EDT 01/24/2013 5:50 PM EDT Presley Madrid MD POINT OF CARE TEST O RDERABLES Performing Organization Address [facility] Co de Phone Number DANETTE HARTMANENNIUM * (ABNORMAL) Differential, Manual (01/24/2013 5:40 PM EDT) Segmented Neutrophils Manual 69 34 - 71 % CERNER MILLENNIUM Band % 20(H) 0 - 12 % CERNER MILLENNIUM Lymphocyte Manual 4(L) 19 - 53 % CE RNER MILLENNIUM Monocyte Manual 1(L) 4 - 13 % CERN ER MILLENNIUM Metamyelocyte Manual 5(H) 0 - 0 % CERNER MILLENNIUM Myelocyte Manual 1(H) 0 - 0 % CER NER MILLENNIUM Segs Absolute Manual 7.5(H) 1.5 - 6.3 x10(3)/mc L CERNER MILLENNIUM Band Abs 2.2(H) 0.2 - 0.6 x10(3)/mc L CERNER MILLENNIUM ANC 9.73(H) 1.50 - 6.30 x10(3)/mc L CERNER MILLENNIUM Lymph Absolute Manual 0.4(L) 1.0 - 3.6 x10(3)/mc L CERNER MILLENNIUM Monocyte Absolute Manual 0.1(L) 0.2 - 1.0 x10(3)/mc L CERNER MILLENNIUM Platinum Absolute Manual 0.6(H) 0.0 - 0.0 x10(3)/mc L CERNER MILLENNIUM Myelo Absolute Manual 0.1(H) 0.0 - 0.0 x10(3)/mc L CERNER MILLENNIUM Nucleated Red Cell Manual 1(H) 0 - 0 % CERNER MILLENNIUM Total Cells Ct 100 CERNE R MILLENNIUM Plat estimate Normal CERNER MILLENNIUM RBC Morphology Abnormal CERNE R MILLENNIUM Microcyte 1-5 /HPF CERNER MILLENNIUM Hypochromia Slight CERNER MILLENNIUM Polychromasia Present >5/HPF CERNER MILLENNIUM Ovalocytes 1-5 /HPF CERNER MILLENNIUM Lul Cells 1-5 /HPF CERNER MILLENNIUM Plat, Giant Less than 1 /HPF CERNER MILLENNIUM nRBC Abs 0.110(H) 0.000 - 0.012 x10(3)/mc L CERNER MILLENNIUM Blood specimen (specimen) 01/24/2013 5:40 PM EDT 01/24/2013 6:14 PM EDT Narrative Resulting Agency Comment Spec In Lab Lesly Hope MD HEMATOLOGY ORDERABLE S CERNER MILLENNIUM * (ABNORMAL) Basic Metabolic Panel (non-fasting) (01/24/2013 5:40 PM EDT) [facility] Glucose 114 60 - 199 mg/dL CERNER MILLENNIUM Comment:Diabetes: >=200 mg/d L plus symptoms Blood Urea Nitrogen 28(H) 10 - 20 mg/dL CERNER MILLENNIUM Creatinine 2.86(H) 0.80 - 1.50 mg/dL CERNER MILLENNIUM Comment: result rechecked-blr Please note that the pediatric reference intervals supplied above were not validated at [facility]. Results from pediatric patients should be interpreted [...] 107 98 - 107 mmol/L CERNER MILLENNIUM Carbon Dioxide 18(L) 22 - 31 mmol/L CERNER MILLENNIUM Anion Gap 13 5 - 15 mmol/L CERNER MILLENNIUM Calcium 7.6(L) 8.5 - 10.5 mg/dL CERNER MILLENNIUM Est Glomerular Filtration Rate 23(L) >=60 CERNER MILLENNIUM Comment: The National [...] Hope MD CHEMISTRY ORDERABLES Performing Organization Address [facility] Co de Phone Number CERNER MILLENNIUM * (ABNORMAL) CBC (with Diff) (01/24/2013 5:40 PM EDT) White Blood Cell 10.9(H) 4.0 - 10.0 x10(3)/mc L CERNER MILLENNIUM Red Blood Cell 3.14(L) 4.63 - 6.08 x10(6)/mc L CERNER MILLENNIUM Hemoglobin 8.6(L) 13.7 - 17.5 gm/dL CERNER MILLENNIUM Comment:Patient Transfused Hematocrit 28.4(L) 40.0 - 51.0 % CERNER MILLENNIUM Mean Cell Volume 90.4 79.0 - 92.0 fL CERNER MILLENNIUM Mean Cell Hemoglobin 27.4 25.6 - 32.2 pg CERNER MILLENNIUM Mean Cell Hemoglobin Concentration 30.3(L) 32.0 - 36.5 gm/dL CERNER MILLENNIUM Platelet 246 145 - 370 x10(3)/mc L CERNER MILLENNIUM RDW Standard Deviation 61.6(H) 35.0 - 46.0 fL CERNER MILLENNIUM RDW coefficient of variation 18.7(H) 10.9 - 14.4 % CERNER MILLENNIUM Mean Platelet Volume 9.9 9.0 - 12.0 fL CERNER MILLENNIUM Blood specimen (specimen) 01/24/2013 5:40 PM EDT 01/24/2013 6:14 PM EDT Narrative Resulting Agency Comment Spec In Lab Lesly Hope MD HEMATOLOGY ORDERABLE S CERNER MILLENNIUM * (ABNORMAL) APTT (01/24/2013 5:40 PM EDT) Partial Thromboplastin Time 46(H) 25 - 35 sec CERNER MILLENNIUM Comment: Recommended therapeutic PTT range for full dose unfractionated heparin is 80-114 seconds. Blood specimen (specimen) 01/24/2013 5:40 PM EDT 01/24/2013 6:13 PM EDT Narrative Resulting Agency Comment Spec In Lab Lesly Hope MD HEMATOLOGY ORDERABLE S Performing Organization Address [facility] de Phone Number DANETTE VALENCIA * (ABNORMAL) Prothrombin Time (01/24/2013 5:40 PM EDT) Prothrombin Time 24.3(H) 12.0 - 15.0 sec DANETTE PRIDEIUM Comment: [facility] Transfusion Committee Guidelines: INR less than 2.0, PTT less than OR equal to 43.5 seconds, or Fibrinogen greater than or equal to 100 mg/dl indicate adequate procoagulant activity for hemostasis in patients without underlying bleeding disorders. International Normalization Ratio 2.1(H) 0.9 - 1.1 YAKOVDAKSHA PRIDEIUM Blood specimen (specimen) 01/24/2013 5:40 PM EDT 01/24/2013 6:13 PM EDT Narrative Resulting Agency Comment Spec In Lab Lesly Hope MD HEMATOLOGY ORDERABLE S Performing Organization Address [facility] Phone Number DANETTE VALENCIA * (ABNORMAL) Lactic acid, plasma (01/24/2013 5:40 PM EDT) Lactic Acid 4.1(H) 0.5 - 2.2 mmol/L DANETTE PRIDEIUM Blood specimen (specimen) 01/24/2013 5:40 PM EDT 01/24/2013 6:13 PM EDT Narrative Resulting Agency Comment Spec In Lab Lesly Hope MD CHEMISTRY ORDERABLES Performing Organization Address [facility] de Phone Number DANETTE VALENCIA * CT Drain-Peritoneal (01/24/2013 5:14 PM EDT) Anatomical Region Laterality Modality Abdomen Computed Tomogra phy 01/24/2013 5:14 PM EDT Impressions 01/24/2013 8:37 PM EDT IMPRESSION: Technically successful drain placement in left pelvic abscess. ?? Recommend: Montgomery drainage, flush with 5-10 cc NS q 8h Narrative 01/24/2013 8:37 PM EDT VIR PROCEDURE NOTE: CT-guided drainage pelvic abscess ?? Acc #: [id number] ?? INDICATION: Abscess ?? Status post robotic [...] NOTE: CT-guided drainage pelvic abscess Acc #: [id number] INDICATION: Abscess Status post robotic prostatectomy/LND approximately [...] lidocaine SQ was administered for anesthesia, and [id number] needle was advanced under CT guidance into [...] drain placement in left pelvic abscess. Recommend: Montgomery drainage, flush with 5-10 cc NS q 8h Presley Madrid MD [facility] [place] ORDERABLES * Anaerobic Culture (01/24/2013 4:45 PM EDT) Anaerobic Culture ? Patient Name: DILLAN RODGERS ?Ordered By: PRESLEY MADRID ? MR#: [id number] ?LOC: ??2WST ? /Sex: ??1950 (62 years), [...] No anaerobic organisms isolated to date ? [facility] Pelvic Fluid 01/24/2013 4:45 PM EDT 01/24/2013 5:24 PM EDT Comment:CT GUIDED PELVIC FLU ID COLLECTION DRAIN PLACEMENT Narrative Resulting Agency Comment Spec In Lab Presley Madrid MD MICROBIOLOGY - GENER AL ORDERABLES [facility] * Body fluid culture (01/24/2013 4:45 PM EDT) Body Fluid Culture ? Patient Name: DILLAN RODGERS ?Ordered By: PRESLEY MADRID ? MR#: [id number] ?LOC: ??ISCU ? /Sex: ??1950 (62 years), [...] species ? Patient: DILLAN RODGERS ? MR#: [id number] ? SUSCEPTIBILITY RESULTS ? Escherichia coli ?NINFA [...] infections. Synergy is predicted for Gentamicin. ? [facility] Pelvic Fluid 01/24/2013 4:45 PM EDT 01/24/2013 5:24 PM EDT Comment:CT GUIDED PELVIC FLU ID COLLECTION DRAIN PLACEMENT Narrative Resulting Agency Comment Spec In Lab Presley Madrid MD MICROBIOLOGY - GENER AL ORDERABLES [facility] * IR arterial intervention (01/24/2013 4:15 PM [...] iliac artery embolization with gelfoam ?? ACC#: [id number] ?? Indication for Procedure: 62 yr old M patient, s/p robotic prostatectomy/LND approximately 2 months ago. Post-op course was notable for pelvic hematoma. 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 ?? Most recently, he presented to an outside hospital with bilateral hip pain and fever. He was subsequently transferred to [facility]. CECT scan demonstrated left sided pelvic hematoma, [...] internal iliac artery embolization with gelfoam ACC#: [id number] Indication for Procedure: 62 yr old M patient, s/p roboticprostatectomy/LND approximately 2 months ago. Post-op course was notable for pelvichematoma. 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 Most recently, he presented to an outside hospital with bilateral hip painand fever. He was subsequently transferred to [facility]. CECT scan demonstratedleft sided pelvic hematoma, displacing [...] wire and 6 Fr sheath. 5 Fr [id number] advanced and used to cross the aortic [...] to confirm occlusion of the pseudoaneurysm. Resident/Fellow: Oswaldo Servin Attending:Griffin Young, Dr. Moya, was present throughout the procedure. Film and interpretation reviewed by the attending Presley Madrid MD IMG IR ORDERABLES * Prepare thawed plasma (01/24/2013 2:44 PM EDT) Dispensed? Yes CERNER MILLENNIUM Blood specimen (specimen) 01/24/2013 2:44 PM EDT 01/24/2013 2:44 PM EDT Narrative Resulting Agency Comment Spec In Lab Clyde Wyman MD BLOOD BANK PRODUCT O RDERABLES Performing Organization Address [facility] Co de Phone Number DANETTE VALENCIA * Prepare RBC (01/24/2013 2:24 PM EDT) Dispensed? Yes CERDAKSHA HARTMANENNIUM Blood specimen (specimen) 01/24/2013 2:24 PM EDT 01/24/2013 2:24 PM EDT Narrative Resulting Agency Comment Spec In Lab Ermias Moya MD BLOOD BANK PRODUCT O RDERABLES Performing Organization Address [facility] Co de Phone Number DANETTE PRIDEIUM * Prepare RBC (01/24/2013 2:20 PM EDT) Dispensed? Yes CERNER MILLENNIUM Blood specimen (specimen) 01/24/2013 2:20 PM EDT 01/24/2013 2:21 PM EDT Ermias Moya MD BLOOD BANK PRODUCT O RDERABLES Performing Organization Address City/[facility] de Phone Number DANETTE HARTMANENNIUM * (ABNORMAL) Hemogram (01/24/2013 2:00 PM EDT) White Blood Cell 3.6(L) 4.0 - 10.0 x10(3)/mc L CERNER MILLENNIUM Red Blood Cell 2.41(L) 4.63 - 6.08 x10(6)/mc L CERNER MILLENNIUM Hemoglobin 6.5(L) 13.7 - 17.5 gm/dL CERNER MILLENNIUM Hematocrit 21.8(L) 40.0 - 51.0 % CERNER MILLENNIUM Mean Cell Volume 90.5 79.0 - 92.0 fL CERNER MILLENNIUM Comment:Matches Previous Res ults Mean Cell Hemoglobin 27.0 25.6 - 32.2 pg CERNER MILLENNIUM Mean Cell Hemoglobin Concentration 29.8(L) 32.0 - 36.5 gm/dL CERNER MILLENNIUM Platelet 221 145 - 370 x10(3)/mc L CERNER MILLENNIUM RDW Standard Deviation 63.2(H) 35.0 - 46.0 fL CERNER MILLENNIUM RDW coefficient of variation 18.9(H) 10.9 - 14.4 % CERNER MILLENNIUM Mean Platelet Volume 9.8 9.0 - 12.0 fL CERNER MILLENNIUM Blood specimen (specimen) 01/24/2013 2:00 PM EDT 01/24/2013 2:05 PM EDT Narrative Resulting Agency Comment Spec In Lab Ermias Moya MD HEMATOLOGY ORDERABLE S Performing Organization Address [facility] de Phone Number DANETTE PRIDEIUM * Prepare thawed plasma (01/24/2013 11:54 AM EDT) Dispensed? Yes CERNER MILLENNIUM Blood specimen (specimen) 01/24/2013 11:54 AM EDT 01/24/2013 11:54 AM EDT Narrative Resulting Agency Comment Spec In Lab Clyde Wyman MD BLOOD BANK PRODUCT O RDERABLES Performing Organization Address [facility]/State/ZIP Co de Phone Number DANETTE HARTMANENNIUM * Blood culture (01/24/2013 10:28 AM EDT) Blood Culture ? Patient Name: DILLAN RODGERS ?Ordered By: PRESLEY MADRID ? MR#: [id number] ?LOC: ??ISCU ? /Sex: ??1950 (62 years), [...] (ABNORMAL) Differential, Manual (01/24/2013 10:22 AM EDT) Segmented Neutrophils Manual 34 34 - 71 % CERNER MILLENNIUM Band % 7 0 - 12 % CERNER MILLENNIUM Lymphocyte Manual 48 19 - 53 % CE RNER MILLENNIUM Eosinophil Manual 6 0 - 7 % CE RNER MILLENNIUM Basophil Manual 3(H) 0 - 2 % CERN ER MILLENNIUM Metamyelocyte Manual 1(H) 0 - 0 % CERNER MILLENNIUM Myelocyte Manual 1(H) 0 - 0 % CER NER MILLENNIUM Segs Absolute Manual 0.4(L) 1.5 - 6.3 x10(3)/mc L CERNER MILLENNIUM Band Abs 0.1(L) 0.2 - 0.6 x10(3)/mc L CERNER MILLENNIUM ANC 0.53(L) 1.50 - 6.30 x10(3)/mc L CERNER MILLENNIUM Lymph Absolute Manual 0.6(L) 1.0 - 3.6 x10(3)/mc L CERNER MILLENNIUM Eos Absolute Manual 0.1 0.0 - 0.5 x10(3)/mc L CERNER MILLENNIUM Baso Absolute Manual 0.0 0.0 - 0.2 x10(3)/mc L CERNER MILLENNIUM Platinum Absolute Manual 0.0 0.0 - 0.0 x10(3)/mc L CERNER MILLENNIUM Myelo Absolute Manual 0.0 0.0 - 0.0 x10(3)/mc L CERNER MILLENNIUM Nucleated Red Cell Manual 7(H) 0 - 0 % CERNER MILLENNIUM Total Cells Ct 100 CERNE R MILLENNIUM Plat estimate Normal CERNER MILLENNIUM RBC Morphology Abnormal CERNE R MILLENNIUM Ovalocytes 1-5 /HPF CERNER MILLENNIUM [place] Cells 1-5 /HPF CERNER MILLENNIUM Plat, Giant Less than 1 /HPF CERNER MILLENNIUM nRBC Abs 0.090(H) 0.000 - 0.012 x10(3)/mc L CERNER MILLENNIUM Blood specimen (specimen) 01/24/2013 10:22 AM EDT 01/24/2013 10:38 AM EDT Narrative Resulting Agency Comment Spec In Lab Presley Madrid MD HEMATOLOGY ORDERABLE S CERNER MILLENNIUM * (ABNORMAL) Nucleated Red Blood Cells (01/24/2013 10:22 AM EDT) NRBC% auto 8.3(H) 0.0 - 0.2 % CERNER MILLENNIUM NRBC Absolute 0.110(H) 0.000 - 0.012 x10(3)/mcL CERNER MILLENNIUM Blood specimen (specimen) 01/24/2013 10:22 AM EDT 01/24/2013 10:38 AM EDT Narrative Resulting Agency Comment Spec In Lab Presley Madrid MD HEMATOLOGY ORDERABLE S CERNER MINNIEENNIUM * (ABNORMAL) CBC (with Diff) (01/24/2013 10:22 AM EDT) White Blood Cell 1.3(Criti joão) 4.0 - 10.0 x10(3)/mc L CERNER MILLENNIUM Comment: This result has been called to MALIA BAIN by Sheeba Leblanc on 01.24.13 at 11:10, and has been read back (). Red Blood Cell 3.09(L) 4.63 - 6.08 x10(6)/mc L CERNER MILLENNIUM Hemoglobin 8.2(L) 13.7 - 17.5 gm/dL CERNER MILLENNIUM Hematocrit 28.6(L) 40.0 - 51.0 % CERNER MILLENNIUM Mean Cell Volume 92.6(H) 79.0 - 92.0 fL CERNER MILLENNIUM Mean Cell Hemoglobin 26.5 25.6 - 32.2 pg CERNER MILLENNIUM Mean Cell Hemoglobin Concentration 28.7(L) 32.0 - 36.5 gm/dL CERNER MILLENNIUM Platelet 345 145 - 370 x10(3)/mc L CERNER MILLENNIUM RDW Standard Deviation 64.9(H) 35.0 - 46.0 fL CERNER MILLENNIUM RDW coefficient of variation 19.3(H) 10.9 - 14.4 % CERNER MILLENNIUM Mean Platelet Volume 9.5 9.0 - 12.0 fL CERNER MILLENNIUM Blood specimen (specimen) 01/24/2013 10:22 AM EDT 01/24/2013 10:38 AM EDT Narrative Resulting Agency Comment Spec In Lab Presley Madrid MD HEMATOLOGY ORDERABLE S CERDAKSHA MILLENNIUM * Blood culture (01/24/2013 10:22 AM EDT) Blood Culture ? Patient Name: DILLAN RODGERS ?Ordered By: PRESLEY MADRID ? MR#: [id number] ?LOC: ??ISCU ? /Sex: ??1950 (62 years), ? Male ? PROCEDURE: Blood Culture ?SOURCE: Blood ? COLLECTED: 01/24/2013 10:22 ? BODY SITE: Right Antecubital ? STARTED: 01/24/2013 10:52 ? STAINS / PREPARATIONS ? Bottle Gram Stain ? Verified:01/26/20 13 01:46 ? Growth detected in aerobic bottle. ? Gram Negative Rods seen ? Gram Positive Cocci in chains ? Bottle Gram Stain ? Verified:01/26/20 00:05 ? Growth detected in anaerobic bottle. ? Gram Negative Rods seen ? Gram Positive Cocci in chains Results called to and read back by ? CORIRNA ROOT ? FINAL REPORT ? Final Report ? Verified:01/28/20 09:58 ? Escherichia coli isolated ? Isolate saved. If future testing is required, contact the Microbiology ? Ophthalmology Assistant. ? Enterococcus faecalis isolated ? Isolate saved. If future testing is required, contact the Microbiology ? Ophthalmology Assistant. ? PRELIMINARY REPORT ? Preliminary Report ? Verified:01/27/20 13 07:51 ? Escherichia coli isolated ? Isolate saved. If future testing is required, contact the Microbiology ? Ophthalmology Assistant. ? Enterococcus faecalis isolated ? Susceptibility testing in progress ? Patient: DILLAN RODGERS ? MR#: [id number] ? SUSCEPTIBILITY RESULTS ? Escherichia coli ?NINFA [...] infections. Synergy is predicted for Gentamicin. ? CERNER MILLENNIUM Blood specimen (specimen) ANTECUBITAL REGION STRUCTURE / Unknown 01/24/2013 10:22 AM EDT 01/24/2013 10:52 AM EDT Narrative Resulting Agency Comment Spec In Lab Presley Madrid MD MICROBIOLOGY - BLOOD ORDERABLES [facility] * (ABNORMAL) Urinalysis with microscopic (01/24/2013 10:09 AM EDT) Glucose, Urine Dipstick Negative Negative mg/dL CERNER MILLENNIUM Protein, Urine Dipstick >600(A) Neg mg/dL CERNER MILLENNIUM Bilirubin, Urine Dipstick Negative Negative mg/dL CERNER MILLENNIUM Urobilinogen, Urine Dipstick Normal Normal mg/dL CERNER MILLENNIUM pH, Urn (dipstick) 7.0 5.0 - 8.0 CERNER MILLENNIUM Blood, Urine Dipstick Large(A) Neg CERNER MILLENNIUM Ketone, Urine Dipstick Neg Neg mg/dL CERNER MILLENNIUM Nitrite, Urine Dipstick Neg Neg CERNER MILLENNIUM Leukocytes, Urine Dipstick Small(A) Neg CERNER MILLENNIUM Appearance, Urine Dipstick Cloudy(A) Clear CERNER MILLENNIUM Specific Montgomery Urine Automated >1.035 1.002 - 1.030 CERNER MILLENNIUM Color, Urine Dipstick Dark Brown Yellow CERNER MILLENNIUM RBC, Urine >182(H) 0 - 3 /HPF CERNER MILLENNIUM WBC, Urine >182(H) 0 - 3 /HPF CERNER MILLENNIUM WBC Clumps, Urine Many /HPF CERNER MILLENNIUM Bacteria, Urine Many /HPF CERNER MILLENNIUM Urine specimen (specimen) 01/24/2013 10:09 AM EDT 01/25/2013 6:13 AM EDT Narrative Resulting Agency Comment Spec In Lab Presley Madrid MD URINE ORDERABLES Performing Organization Address [facility] Co de Phone Number CERNER MILLENNIUM * Urine Hold (01/24/2013 10:08 AM EDT) Hold, Urine Sample in lab. DANETTE HARTMANENNIUM Urine specimen (specimen) 01/24/2013 10:08 AM EDT 01/24/2013 10:22 AM EDT Presley Madrid MD URINE ORDERABLES Performing Organization Address City/[facility] Co de Phone Number DANETTE PRIDEIUM * Urine culture Clean Catch Urine (01/24/2013 10:08 AM EDT) Urine Culture ? Patient Name: DILLAN RODGERS ?Ordered By: PRESLEY MADRID ? MR#: [id number] ?LOC: ??ICUS ? /Sex: ??1950 (62 years), [...] S ? Tobramycin ? S ? Patient: VISHAL, DILLAN W ? MR#: [id number] ? Enterococcus species ? ___ ?NINFA Interp [...] - GENER AL ORDERABLES Performing Organization Address [facility] Co de Phone Number [facility] * Prepare thawed plasma (01/24/2013 9:25 AM EDT) Dispensed? Yes DANETTE VALENCIA Blood specimen (specimen) 01/24/2013 9:25 AM EDT 01/24/2013 9:25 AM EDT Narrative Resulting Agency Comment Spec In Lab Clyde Wyman MD BLOOD BANK PRODUCT O RDERABLES Performing Organization Address [facility] de Phone Number [facility] * Prepare thawed plasma (01/24/2013 8:35 AM EDT) Dispensed? Yes DANETTE VALENCIA Blood specimen (specimen) 01/24/2013 8:35 AM EDT 01/24/2013 8:33 AM EDT Narrative Resulting Agency Comment Spec In Lab Presley Madrid MD BLOOD BANK PRODUCT O RDERABLES Performing Organization Address [facility] Co de Phone Number DANETTE VALENCIA * (ABNORMAL) Differential, Automated (01/24/2013 6:02 AM EDT) Neutrophil % 81.8(H) 34.0 - 71.0 % [facility] Neutrophil Absolute 10.07(H) 1.50 - 6.30 x10(3)/mc L CERNER MILLENNIUM Lymph % 7.6(L) 19.0 - 53.0 % CERNER MILLENNIUM Lymphocytes Abs 0.9(L) 1.0 - 3.6 x10(3)/mc L CERNER MILLENNIUM Monocyte % 8.8 4.0 - 13.0 % CERNER MILLENNIUM Monocyte Abs 1.1(H) 0.2 - 1.0 x10(3)/mc L CERNER MILLENNIUM Eos % 1.2 0.0 - 7.0 % CERNER MILLENNIUM Eosinophils Abs 0.2 0.0 - 0.5 x10(3)/mc L CERNER MILLENNIUM Basophil % 0.5 0.0 - 2.0 % CERNER MILLENNIUM Baso [...] differential will be performed. Immature Gran Absolute 0.01 0.00 - 0.05 x10(3)/mc L CERNER MILLENNIUM Blood specimen (specimen) 01/24/2013 6:02 AM EDT 01/24/2013 6:13 AM EDT Presley Madrid MD HEMATOLOGY ORDERABLE S CERNER MILLENNIUM * (ABNORMAL) CBC (with Diff) (01/24/2013 6:02 AM EDT) White Blood Cell 12.3(H) 4.0 - 10.0 x10(3)/mc L CERNER MILLENNIUM Red Blood Cell 2.78(L) 4.63 - 6.08 x10(6)/mc L CERNER MILLENNIUM Hemoglobin 7.5(L) 13.7 - 17.5 gm/dL CERNER MILLENNIUM Hematocrit 25.6(L) 40.0 - 51.0 % CERNER MILLENNIUM Mean Cell Volume 92.1(H) 79.0 - 92.0 fL CERNER MILLENNIUM Mean Cell Hemoglobin 27.0 25.6 - 32.2 pg CERNER MILLENNIUM Mean Cell Hemoglobin Concentration 29.3(L) 32.0 - 36.5 gm/dL CERNER MILLENNIUM Comment:Matches Previous Res ults Platelet 316 145 - 370 x10(3)/mc L CERNER MILLENNIUM RDW Standard Deviation 64.3(H) 35.0 - 46.0 fL CERNER MILLENNIUM RDW coefficient of variation 18.9(H) 10.9 - 14.4 % CERNER MILLENNIUM Mean Platelet Volume 9.3 9.0 - 12.0 fL DANETTE MILLENNIUM Blood specimen (specimen) 01/24/2013 6:02 AM EDT 01/24/2013 6:13 AM EDT Narrative Resulting Agency Comment Spec In Lab Presley Madrid MD HEMATOLOGY ORDERABLE S DANETTE VALENCIA * Transfuse RBC (01/24/2013 5:30 AM EDT) [...] of a rib fracture. Presley Madrid MD IM CT ORDERABLES * (ABNORMAL) Differential, Manual (01/24/2013 12:08 AM EDT) Segmented Neutrophils Manual 80(H) 34 - 71 % CERNER MILLENNIUM Band % 3 0 - 12 % CERNER MILLENNIUM Lymphocyte Manual 8(L) 19 - 53 % CE RNER MILLENNIUM Monocyte Manual 7 4 - 13 % CERN ER MILLENNIUM Eosinophil Manual 2 0 - 7 % CE RNER MILLENNIUM Segs Absolute Manual 10.3(H) 1.5 - 6.3 x10(3)/mc L CERNER MILLENNIUM Band Abs 0.4 0.2 - 0.6 x10(3)/mc L CERNER MILLENNIUM ANC 10.64(H) 1.50 - 6.30 x10(3)/mc L CERNER MILLENNIUM Lymph Absolute Manual 1.0 1.0 - 3.6 x10(3)/mc L CERNER MILLENNIUM Monocyte Absolute Manual 0.9 0.2 - 1.0 x10(3)/mc L CERNER MILLENNIUM Eos Absolute Manual 0.3 0.0 - 0.5 x10(3)/mc L CERNER MILLENNIUM Total Cells Ct 100 CERNE R MILLENNIUM Plat estimate Normal CERNER MILLENNIUM RBC Morphology Abnormal CERNE R MILLENNIUM Macrocyte 1-5 /HPF CERNER MILLENNIUM Microcyte 1-5 /HPF CERNER MILLENNIUM Hypochromia Slight CERNER MILLENNIUM Polychromasia Present >5/HPF CERNER MILLENNIUM Ovalocytes 1-5 /HPF CERNER MILLENNIUM Schistocyte 1-5 /HPF CERNER MILLENNIUM [place] Cells 1-5 /HPF CERNER MILLENNIUM Blood specimen (specimen) 01/24/2013 12:08 AM EDT 01/24/2013 12:14 AM EDT Narrative Resulting Agency Comment Spec In Lab Presley Madrid MD HEMATOLOGY ORDERABLE S DANETTE PRIDEIUM * Antibody screen (01/24/2013 12:08 AM EDT) Ab Screen Interp Negative DANETTE HARTMANENNIUM Expires at [id number] on: [id number] CERDAKSHA HARTMANENNIUM Blood specimen (specimen) 01/24/2013 12:08 AM EDT 01/24/2013 12:35 AM EDT Narrative Resulting Agency Comment Spec In Lab Presley Madrid MD BLOOD BANK LAB ORDER JAMES Performing Organization Address City/[facility] Co de Phone Number DANETTE PRIDEIUM * ABO/Rh Typing (01/24/2013 12:08 AM EDT) ABORH Type A Pos CERDAKSHA HARTMANENNIUM Blood specimen (specimen) 01/24/2013 12:08 AM EDT 01/24/2013 12:35 AM EDT Narrative Resulting Agency Comment Spec In Lab Presley Madrid MD BLOOD BANK LAB ORDER JAMES Performing Organization Address City/[facility]/ZIP Co de Phone Number DANETTE PRIDEIUM * (ABNORMAL) Basic Metabolic Panel (non-fasting) (01/24/2013 12:08 AM EDT) Glucose 105 60 - 199 mg/dL [facility] MILLENNIUM Comment:Diabetes: >=200 mg/d L plus symptoms Blood Urea Nitrogen 22(H) 10 - 20 mg/dL CERNER MILLENNIUM Creatinine 1.45 0.80 - 1.50 mg/dL CERNER MILLENNIUM Comment: Please note that the pediatric reference intervals supplied above were not validated at [facility]. Results from pediatric patients should be interpreted [...] - 107 mmol/L CERNER MILLENNIUM Carbon Dioxide 19(L) 22 - 31 mmol/L CERNER MILLENNIUM Anion Gap 12 5 - 15 mmol/L CERNER MILLENNIUM Calcium 7.8(L) 8.5 - 10.5 mg/dL CERNER MILLENNIUM Est Glomerular Filtration Rate 49(L) >=60 CERNER MILLENNIUM Comment: The National [...] Madrid MD CHEMISTRY ORDERABLES Performing Organization Address [facility] Co de Phone Number DANETTE Bass ManagerDEX * (ABNORMAL) Prothrombin Time (01/24/2013 12:08 AM EDT) Prothrombin Time 32.0(H) 12.0 - 15.0 sec DANETTE VALENCIA Comment: [facility] Transfusion Committee Guidelines: INR less than 2.0, PTT less than OR equal to 43.5 seconds, or Fibrinogen greater than or equal to 100 mg/dl indicate adequate procoagulant activity for hemostasis in patients without underlying bleeding disorders. International Normalization Ratio 3.0(H) 0.9 - 1.1 DANETTE VALENCIA Blood specimen (specimen) 01/24/2013 12:08 AM EDT 01/24/2013 12:14 AM EDT Narrative Resulting Agency Comment Spec In Lab Presley Madrid MD HEMATOLOGY ORDERABLE S Performing Organization Address [facility] Co de Phone Number [facility] * (ABNORMAL) APTT (01/24/2013 12:08 AM EDT) Partial Thromboplastin Time 72(H) 25 - 35 sec DANETTE VALENCIA Comment: Recommended therapeutic PTT range for full dose unfractionated heparin is 80-114 seconds. Blood specimen (specimen) 01/24/2013 12:08 AM EDT 01/24/2013 12:14 AM EDT Narrative Resulting Agency Comment Spec In Lab Presley Madrid MD HEMATOLOGY ORDERABLE S CERNER MILLENNIUM * (ABNORMAL) CBC (with Diff) (01/24/2013 12:08 AM EDT) White Blood Cell 12.8(H) 4.0 - 10.0 x10(3)/mc L CERNER MILLENNIUM Red Blood Cell 2.43(L) 4.63 - 6.08 x10(6)/mc L CERNER MILLENNIUM Hemoglobin 6.5(L) 13.7 - 17.5 gm/dL CERNER MILLENNIUM Hematocrit 21.9(L) 40.0 - 51.0 % CERNER MILLENNIUM Mean Cell Volume 90.1 79.0 - 92.0 fL CERNER MILLENNIUM Mean Cell Hemoglobin 26.7 25.6 - 32.2 pg CERNER MILLENNIUM Mean Cell Hemoglobin Concentration 29.7(L) 32.0 - 36.5 gm/dL CERNER MILLENNIUM Comment:Matches Previous Res ults Platelet 255 145 - 370 x10(3)/mc L CERNER MILLENNIUM RDW Standard Deviation 65.1(H) 35.0 - 46.0 fL CERNER MILLENNIUM RDW coefficient of variation 19.7(H) 10.9 - 14.4 % CERNER MILLENNIUM Mean Platelet Volume 8.8(L) 9.0 - 12.0 fL CERNER MILLENNIUM Blood specimen (specimen) 01/24/2013 12:08 AM EDT 01/24/2013 12:14 AM EDT Narrative Resulting Agency Comment Spec In Lab Presley Madrid MD HEMATOLOGY ORDERABLE S CERNER MILLENNIUM documented in this encounter Visit Diagnoses Diagnosis [...] EDT 2 tablets HYDROmorphone (DILAUDID) 1 mg/mL TAILER OFF 30 mL Intravenous, TAILER OFF ONLY, Starting on Tue01/24/13 at 1815, Until [...] 1 dose, On Tue01/29/13 at 1700, Routine Given 01/29/2013 5:00 PM EDT 5 mg warfarin (COUMADIN) tablet 7.5 mg 7.5 mg, Oral, ONCE, 1 dose, On Tue01/28/13 at 1700, Routine Given 01/28/2013 4:59 PM [...] for GI/Intra-abdominal 0027 (Given - Provider: Paola Lou, LANIE)0601 (Given - Provider: Paola Lou RN)1136 (Given - Provider: Belén Miguel RN)1756 (Given - Provider: Jelani Alves) 0006 (Given - Provider: Becky Hairston RN)0606 (Given - Provider: Becky Hairston RN)1200 (Given - Provider: Nohemi Preston, LANIE)1800 (Given - Provider: Nohemi Preston RN)2339 (Given [...] - Reason: See comment - Comment: not needed)202 (Not Given - Provider: Nancy Hardin RN [...] on Tue01/23/13 at 2345, Until Discontinued, Routine 0817 (Given - Provider: Belén Miguel RN)2126 (Given - Provider: Becky Hairston RN) 09 (Given - Provider: Nohemi Preston RN)2026 (Given - Provider: Nancy Hardin RN) 0846 (Given - Provider: Pauline Alberto RN) esomeprazole (NEXIUM) capsule 40 mg (CANCELED) 40 mg, Oral, EVERY 12 HOURS SCHEDULED (2 times per day), First dose (after last modification) on Tue01/26/13 at 2300, Until Discontinued, Oral route preferred, Routine 08 (Given - Provider: Belén Miguel RN)2126 (Given - Provider: Becky Hairston RN) 09 (Given - Provider: Nohemi Preston RN)2026 (Given - Provider: Nancy Hardin RN) 0846 (Given - Provider: Pauline Alberto RN) fluticasone-salmeterol (ADVAIR) 100-50 mcg/dose diskus inhaler 1 puff (CANCELED) 1 puff, Inhalation, EVERY 12 HOURS, First dose on Tue01/23/13 at 2345, Until Discontinued, Rinse mouth after administration, Routine 817 (Given - Provider: Belén Miguel RN)2126 (Given - Provider: Becky Hairston RN) 09 (Given - Provider: Nohemi Preston RN)2026 (Given - Provider: Nancy Hardin RN) 0846 (Given - Provider: Pauline Alberto RN) levothyroxine (SYNTHROID) tablet 50 mcg (CANCELED) 50 mcg, Oral, DAILY, First dose on Tue01/24/13 at 0600, Until Discontinued, Routine 06 (Given - Provider: Paola Lou RN) 06 (Given - Provider: Becky Hairston RN) 620 (Given - Provider: Nancy Hardin RN) montelukast [...] Until Discontinued 0601 (Given - Provider: Paola Lou, LANIE)1659 (Not Given - Provider: Belén Miguel RN [...] 1700, Routine 1607 (Given - Provider: Pauline Alberto RN) Continuous Medication Order 01/28/2013 01/29/2013 01/30/2013 sodium [...] RN) documented in this encounter Care Teams Vessel Traffic Officer Relationship Specialty Start Date End Date Farnaz Patel MD [address] [place] [address] PCP - General 10/26/12 documented as of this encounter
--- OUTSIDE RECORDS SUMMARY | 2024-06-06 12:29 | XMS_ITS | Encounter Summary ---
Author Organization [facility] [place] [address] Care Team Providers Care It Quality Assurance Analyst Name Role Phone Farnaz Pineda MD Primary Care Provider [phone] Encounter Details Date Type Department Care Team (Late st Contact Info) Description 12/08/2012 11:00 AM EST [place] [id number] Ross Madrid MD [facility] [place] [address] Prostate cancer (Primary Dx) Discharge Disposition: Home [...] has no Remington's sign. His path was [id number] [place] 3+4=7 with tertiary 5, negative margins. Reviewing [...] (ABNORMAL) Differential, Automated (12/08/2012 4:22 PM EST) Neutrophil % 85.2(H) 34.0 - 71.0 % CERNER MILLENNIUM Neutrophil Absolute 14.57(H) 1.50 - 6.30 x10(3)/mc L CERNER MILLENNIUM Lymph % 4.3(L) 19.0 - 53.0 % CERNER MILLENNIUM Lymphocytes Abs 0.7(L) 1.0 - 3.6 x10(3)/mc L CERNER MILLENNIUM Monocyte % 6.9 4.0 - 13.0 % CERNER MILLENNIUM Monocyte Abs 1.2(H) 0.2 - 1.0 x10(3)/mc L CERNER MILLENNIUM Eos % 3.2 0.0 - 7.0 % CERNER MILLENNIUM Eosinophils Abs 0.5 0.0 - 0.5 x10(3)/mc L CERNER MILLENNIUM Basophil % 0.3 0.0 - 2.0 % CERNER MILLENNIUM Baso [...] CBC (with Diff) (12/08/2012 4:22 PM EST) White Blood Cell 17.1(H) 4.0 - 10.0 x10(3)/mc L CERNER MILLENNIUM Red Blood Cell 3.44(L) 4.63 - 6.08 x10(6)/mc L CERNER MILLENNIUM Hemoglobin 10.2(L) 13.7 - 17.5 gm/dL CERNER MILLENNIUM Hematocrit 32.7(L) 40.0 - 51.0 % CERNER MILLENNIUM Mean Cell Volume 95.1(H) 79.0 - 92.0 fL CERNER MILLENNIUM Mean Cell Hemoglobin 29.7 25.6 - 32.2 pg CERNER MILLENNIUM Mean Cell Hemoglobin Concentration 31.2(L) 32.0 - 36.5 gm/dL CERNER MILLENNIUM Platelet 448(H) 145 - 370 x10(3)/mc L CERNER MILLENNIUM RDW Standard Deviation 58.0(H) 35.0 - 46.0 fL CERNER MILLENNIUM RDW coefficient of variation 16.7(H) 10.9 - 14.4 % CERNER MILLENNIUM Mean Platelet Volume 8.6(L) 9.0 - 12.0 fL CERNER MILLENNIUM Blood specimen (specimen) 12/08/2012 4:22 PM EST 12/08/2012 4:29 PM EST Narrative Resulting Agency Comment Spec In Lab Ross Madrid MD HEMATOLOGY ORDERABLE S Performing Organization Address [facility] Co de Phone Number DANETTE VALENCIA * (ABNORMAL) Prothrombin Time (12/08/2012 4:22 PM EST) Prothrombin Time 25.8(H) 12.0 - 15.0 sec CERNER MILLENNIUM Comment: [facility] Transfusion Committee Guidelines: INR less than 2.0, PTT less than OR equal to 43.5 seconds, or Fibrinogen greater than or equal to 100 mg/dl indicate adequate procoagulant activity for hemostasis in patients without underlying bleeding disorders. International Normalization Ratio 2.3(H) 0.9 - 1.1 CERNER MILLENNIUM Blood specimen (specimen) 12/08/2012 4:22 PM EST 12/08/2012 4:29 PM EST Narrative Resulting Agency Comment Spec In Lab Ross Madrid MD HEMATOLOGY ORDERABLE S Performing Organization Address [facility] Co de Phone Number DANETTE VALENCIA documented [...] mLs documented in this encounter Care Teams It Quality Assurance Analyst Relationship Specialty Start Date End Date Farnaz Pineda MD [address] [place] [address] PCP - General 10/26/12 documented as of this encounter
--- OUTSIDE RECORDS SUMMARY | 2024-06-06 12:29 | XMS_ITS | Encounter Summary ---
Author Organization [facility] [place] [address] Care Team Providers Care Deputy Harbormaster Name Role Phone Farnaz Pineda MD Primary Care Provider [phone] Encounter Details Date Type Department Care Team (Late st Contact Info) Description 12/06/2012 [place] [phone] Fred Malagon MD [facility] [place] [address] Social History Tobacco Use Types Packs/Day Years [...] Rodgers is about 2 weeks s/pprostatectomy for [place] 4+5=9 prostate adenocarcinoma. He is on coumadin [...] on filedocumented in this encounter Care Teams Deputy Harbormaster Relationship Specialty Start Date End Date Farnaz Pineda MD [address] [place] [address] PCP - General 10/26/12 documented as of this encounter
--- OUTSIDE RECORDS SUMMARY | 2024-06-06 12:29 | XMS_ITS | Encounter Summary ---
Author Organization [facility] [place] [address] Care Team Providers Care Histotechnologist Supervisor Name Role Phone Cameron Patel MD Primary Care Provider [phone] Reason for Visit * Reason Comments Urinary Retention Hematuria Encounter Details Date Type Department Care Team (Latest Contact Info) Description 12/23/2012 1:24 PM EDT - 12/26/2012 3:48 PM EDT Hospital Encounter [address] [place] [address] Josemanuel Wynne MD [facility] [place] [address] Mesha Masters MD [facility] [place] [address] Urinary retention (Primary Dx); Hematuria Discharge Disposition: [...] may be used if needed and are nikg-mqr-zjxmpui (OTC) medications available at most local pharmacies. Prunes or prune juice, taken daily, can also be helpful for constipation treatment or p revention and are available at most [employer]. Driving Restrictions*: - No driving if you [...] timely manner. Your surgeon may not be Slitting Machine Feeder, especially during the night or on weekends, [...] if needed at discharge. [facility] and coumadin dosing. Pleased [...] placed on CBI -CT surgery contacted at [facility] regarding holding coumadin for now -OK for [...] the urology resident manually cleared clots. * Joesph Mcallister RN - 12/23/2012 12:01 PM EDT [...] that part of your care. Urology - [phone] Scheduled Appointments: The following appointments have been scheduled on your behalf: Future Appointments and Orders Future Appointments: Provider: Department: Dept Phone: Center: 03/13/2013 10:30 AM Ross Madrid MD Urology [phone] [facility] Joint Appt Questionnaire [facility] Urology [phone] [facility] Outpatient Services/Studies: No discharge procedures on file. [...] may be used if needed and are carp-coj-ppixmdm (OTC) medications available at most local pharmacies. Prunes or prune juice, taken daily, can also be helpful for constipation treatment or p revention and are available at most [employer]. Driving Restrictions*: - No driving if you [...] timely manner. Your surgeon may not be Slitting Machine Feeder, especially during the night or on weekends, so be ready to describe yourself and your surgery when you call. CC: Primary Care Physician: Future Appointments and Orders Future Appointments: Provider: Department: Dept Phone: Center: 03/13/2013 10:30 AM Ross Madrid MD Urology [phone] [facility] Joint Appt Questionnaire [facility] U[facility] Urology [phone] [facility] Call your doctor if: Please call your [...] was managed by the Urology Team at [facility]. If you have any questions or concerns, please feel free to contact us. Provider Contact Information: Urology Clinic: [facility] (after business hours): CC: CAMERON PATEL MD [...] valve x 10 years - done at [facility], on coumadin recent INR 2.8 PSH: As [...] AM EDT Pt comes to us from [facility] ED where he went this morning @ 0330 c/o of an indwelling catheter blockedwith clots. As they were unable to flush the catheter they replaced it with another. Since then there has been minimal bloody return. 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 Bleeding increased last . He was eval in the ED @ [facility] at that time and Rx with [...] 12/24/2012 2:33 AM EDT BASIC METABOLIC PANEL Timed 12/24/2012 2:33 AM EDT ABO/RH TYPING [...] EDT BUN STAT 12/23/2012 10:00 AM EDT GLUCOSE STAT 12/23/2012 10:00 AM EDT ELECTROLYTES PANEL STAT 12/23/2012 10 :00 AM EDT documented in this encounter Results * (ABNORMAL) APTT (12/25/2012 10:02 AM EDT) [facility] Signature Partial Thromboplastin Time 42(H) 25 - 35 sec [facility] Comment: Recommended therapeutic PTT range for full dose unfractionated heparin is 80-114 seconds. Blood specimen (specimen) 12/25/2012 10:02 AM EDT 12/25/2012 10:09 AM EDT Narrative Resulting Agency Comment Spec In Lab Mesha Masters MD HEMATOLOGY ORDERABLE S [facility] * (ABNORMAL) Prothrombin Time (12/25/2012 10:02 AM EDT) Prothrombin Time 19.5(H) 12.0 - 15.0 sec CERNER MILLENNIUM Comment: [facility] Transfusion Committee Guidelines: INR less than 2.0, PTT less than OR equal to 43.5 seconds, or Fibrinogen greater than or equal to 100 mg/dl indicate adequate procoagulant activity for hemostasis in patients without underlying bleeding disorders. International Normalization Ratio 1.6(H) 0.9 - 1.1 CERNER MILLENNIUM Blood specimen (specimen) 12/25/2012 10:02 AM EDT 12/25/2012 10:09 AM EDT Narrative Resulting Agency Comment Spec In Lab Mesha Masters MD HEMATOLOGY ORDERABLE S CERNER MILLENNIUM * (ABNORMAL) Differential, Automated (12/25/2012 5:43 AM EDT) Neutrophil % 66.6 34.0 - 71.0 % CERNER MILLENNIUM Neutrophil Absolute 7.20(H) 1.50 - 6.30 x10(3)/mc L CERNER MILLENNIUM Lymph % 16.6(L) 19.0 - 53.0 % CERNER MILLENNIUM Lymphocytes Abs 1.8 1.0 - 3.6 x10(3)/mc L CERNER MILLENNIUM Monocyte % 9.5 4.0 - 13.0 % CERNER MILLENNIUM Monocyte Abs 1.0 0.2 - 1.0 x10(3)/mc L CERNER MILLENNIUM Eos % 5.5 0.0 - 7.0 % CERNER [...] differential will be performed. Immature Gran Absolute 0.10(H) 0.00 - 0.05 x10(3)/mc L CERNER MILLENNIUM Blood specimen (specimen) 12/25/2012 5:43 AM EDT 12/25/2012 5:47 AM EDT Mesha Masters MD HEMATOLOGY ORDERABLE S Performing Organization Address City/State/[facility] Co de Phone Number CERNER MILLENNIUM * (ABNORMAL) CBC (with Diff) (12/25/2012 5:43 AM EDT) White Blood Cell 10.8(H) 4.0 - 10.0 x10(3)/mc L CERNER MILLENNIUM Red Blood Cell 2.92(L) 4.63 - 6.08 x10(6)/mc L CERNER MILLENNIUM Hemoglobin 8.0(L) 13.7 - 17.5 gm/dL CERNER MILLENNIUM Hematocrit 25.6(L) 40.0 - 51.0 % CERNER MILLENNIUM Mean Cell Volume 87.7 79.0 - 92.0 fL CERNER MILLENNIUM Mean Cell Hemoglobin 27.4 25.6 - 32.2 pg CERNER MILLENNIUM Mean Cell Hemoglobin Concentration 31.3(L) 32.0 - 36.5 gm/dL CERNER MILLENNIUM Platelet 383(H) 145 - 370 x10(3)/mc L CERNER MILLENNIUM RDW Standard Deviation 64.7(H) 35.0 - 46.0 fL CERNER MILLENNIUM RDW coefficient of variation 20.3(H) 10.9 - 14.4 % CERNER MILLENNIUM Mean Platelet Volume 8.9(L) 9.0 - 12.0 fL CERNER MILLENNIUM Blood specimen (specimen) 12/25/2012 5:43 AM EDT 12/25/2012 5:47 AM EDT Narrative Resulting Agency Comment Spec In Lab Mesha Masters MD HEMATOLOGY ORDERABLE S [facility] * Transfuse RBC (12/24/2012 3:42 PM EDT) Mesha Masters MD NURSING TREATMENT OR DERABLES - BLOOD ADMIN * Prepare RBC (12/24/2012 12:05 PM EDT) Dispensed? Yes DANETTE HARTMANENNIUM Blood specimen (specimen) 12/24/2012 12:05 PM EDT 12/24/2012 12:03 PM EDT Narrative Resulting Agency Comment Spec In Lab Mesha Masters MD BLOOD BANK PRODUCT O RDERABLES [facility] * (ABNORMAL) Differential, Automated (12/24/2012 2:33 AM EDT) Neutrophil % 67.8 34.0 - 71.0 % CERNER MILLENNIUM Neutrophil Absolute 5.93 1.50 - 6.30 x10(3)/mc L CERNER MILLENNIUM Lymph % 13.0(L) 19.0 - 53.0 % CERNER MILLENNIUM Lymphocytes Abs 1.1 1.0 - 3.6 x10(3)/mc L CERNER MILLENNIUM Monocyte % 12.6 4.0 - 13.0 % CERNER MILLENNIUM Monocyte Abs 1.1(H) 0.2 - 1.0 x10(3)/mc L CERNER MILLENNIUM Eos % 5.5 0.0 - 7.0 % CERNER MILLENNIUM Eosinophils Abs 0.5 0.0 - 0.5 x10(3)/mc L CERNER MILLENNIUM Basophil % 0.8 0.0 - 2.0 % CERNER MILLENNIUM Baso [...] Josemanuel Wynne MD HEMATOLOGY ORDERABLE S CERNER [employer] DynamicsENNIUM * (ABNORMAL) Basic Metabolic Panel (non-fasting) (12/24/2012 2:33 AM EDT) Glucose 99 60 - 199 mg/dL CERNER MILLENNIUM Comment:Diabetes: >=200 mg/d L plus symptoms Blood Urea Nitrogen 19 10 - 20 mg/dL CERNER MILLENNIUM Creatinine 1.23 0.80 - 1.50 mg/dL CERNER MILLENNIUM Comment: Please note that the pediatric reference intervals supplied above were not validated at [facility]. Results from pediatric patients should be interpreted [...] 7.9(L) 8.5 - 10.5 mg/dL CERNER MILLENNIUM Est [...] Lab Josemanuel Wynne MD CHEMISTRY ORDERABLES [facility] * (ABNORMAL) CBC (with Diff) (12/24/2012 2:33 AM EDT) White Blood Cell 8.8 4.0 - 10.0 x10(3)/mc L CERNER MILLENNIUM Red Blood Cell 2.43(L) 4.63 - 6.08 x10(6)/mc L CERNER MILLENNIUM Hemoglobin 6.7(L) 13.7 - 17.5 gm/dL CERNER MILLENNIUM Hematocrit 22.3(L) 40.0 - 51.0 % CERNER MILLENNIUM Mean Cell Volume 91.8 79.0 - 92.0 fL CERNER MILLENNIUM Mean Cell Hemoglobin 27.6 25.6 - 32.2 pg CERNER MILLENNIUM Mean Cell Hemoglobin Concentration 30.0(L) 32.0 - 36.5 gm/dL CERNER MILLENNIUM Platelet 336 145 - 370 x10(3)/mc L CERNER MILLENNIUM RDW Standard Deviation 56.8(H) 35.0 - 46.0 fL CERNER MILLENNIUM RDW coefficient of variation 17.0(H) 10.9 - 14.4 % CERNER MILLENNIUM Mean Platelet Volume 8.8(L) 9.0 - 12.0 fL CERDAKSHA HARTMANENNIUM Blood specimen (specimen) 12/24/2012 2:33 AM EDT 12/24/2012 2:37 AM EDT Narrative Resulting Agency Comment Spec In Lab Josemanuel Wynne MD HEMATOLOGY ORDERABLE S [facility] * Antibody screen (12/23/2012 11:50 AM EDT) Ab Screen Interp Negative DANETTE PRIDEIUM Expires at [id number] on: [id number] [facility]TE [facility]IDE[facility] Blood specimen (specimen) 12/23/2012 11:50 AM EDT 12/23/2012 12:09 PM EDT Narrative Resulting Agency Comment Spec In Lab Mesha Masters MD BLOOD BANK LAB ORDER JAMES [facility]AN[facility]TE PRIDE[facility] * ABO/Rh Typing (12/23/2012 11:50 AM EDT) ABORH Type A Pos CERDAKSHA PRIDEIUM Blood specimen (specimen) 12/23/2012 11:50 AM EDT 12/23/2012 12:09 PM EDT Narrative Resulting Agency Comment Spec In Lab Mesha Masters MD BLOOD BANK LAB ORDER JAMES CERNER MILLENNIUM * (ABNORMAL) Differential, Automated (12/23/2012 10:00 AM EDT) Pathologist [facility] Neutrophil % 77.4(H) 34.0 - 71.0 % CERNER MILLENNIUM Neutrophil Absolute 9.36(H) 1.50 - 6.30 x10(3)/mc L CERNER MILLENNIUM Lymph % 17.0(L) 19.0 - 53.0 % CERNER MILLENNIUM Lymphocytes Abs 2.0 1.0 - 3.6 x10(3)/mc L CERNER MILLENNIUM Monocyte % 3.0(L) 4.0 - 13.0 % CERNER MILLENNIUM Monocyte Abs 0.4 0.2 - 1.0 x10(3)/mc L CERNER MILLENNIUM Eos % 1.9 0.0 - 7.0 % CERNER [...] EDT Josemanuel Wynne MD HEMATOLOGY ORDERABLE S CERDAKSHA HARTMANENNIUM * Scan, Peripheral Blood (12/23/2012 10:00 AM EDT) Plat estimate Normal [facility] RBC Morphology Abnormal CERNE R MILLENNIUM Polychromasia Present >5/HPF CERNER MILLENNIUM Blood specimen (specimen) 12/23/2012 10:00 AM EDT 12/23/2012 10:08 AM EDT Narrative Resulting Agency Comment Spec In Lab Josemanuel Wynne MD HEMATOLOGY ORDERABLE S Performing Organization Address [facility]/ZIP Co de Phone Number [facility] * (ABNORMAL) APTT (12/23/2012 10:00 AM EDT) Partial Thromboplastin Time 54(H) 25 - 35 sec [facility] Comment: Recommended therapeutic PTT range for full dose unfractionated heparin is 80-114 seconds. Blood specimen (specimen) 12/23/2012 10:00 AM EDT 12/23/2012 10:08 AM EDT Narrative Resulting Agency Comment Spec In Lab Josemanuel Wynne MD HEMATOLOGY ORDERABLE S Performing Organization Address [facility] de Phone Number [facility] * (ABNORMAL) Prothrombin Time (12/23/2012 10:00 AM EDT) Prothrombin Time 25.1(H) 12.0 - 15.0 sec [facility] Comment: [facility] Transfusion Committee Guidelines: INR less than 2.0, PTT less than OR equal to 43.5 seconds, or Fibrinogen greater than or equal to 100 mg/dl indicate adequate procoagulant activity for hemostasis in patients without underlying bleeding disorders. International Normalization Ratio 2.2(H) 0.9 - 1.1 [facility] Blood specimen (specimen) 12/23/2012 10:00 AM EDT 12/23/2012 10:08 AM EDT Narrative Resulting Agency Comment Spec In Lab Josemanuel Wynne MD HEMATOLOGY ORDERABLE S Performing Organization Address [facility]/ZIP Co de Phone Number [facility] * Glucose, random (12/23/2012 10:00 AM EDT) Glucose 129 60 - 199 mg/dL [facility] Comment:Diabetes: >=200 mg/d L plus symptoms Blood specimen (specimen) 12/23/2012 10:00 AM EDT 12/23/2012 10:08 AM EDT Narrative Resulting Agency Comment Spec In Lab Josemanuel Wynne MD CHEMISTRY ORDERABLES [facility] * (ABNORMAL) Creatinine (12/23/2012 10:00 AM EDT) Creatinine 1.50 0.80 - 1.50 mg/dL [facility] Comment: Please note that the pediatric reference intervals supplied above were not validated at [facility]. Results from pediatric patients should be interpreted in conjunction to the patient's age, height and muscle mass. Est Glomerular Filtration Rate 47(L) >=60 [facility] Comment: The National Kidney Disease Education Program [...] Wynne MD CHEMISTRY ORDERABLES Performing Organization Address [facility] de Phone Number CERNER MILLENNIUM * (ABNORMAL) BUN (12/23/2012 10:00 AM EDT) Blood Urea Nitrogen 25(H) 10 - 20 mg/dL CERNER MILLENNIUM Blood specimen (specimen) 12/23/2012 10:00 AM EDT 12/23/2012 10:08 AM EDT Narrative Resulting Agency Comment Spec In Lab Josemanuel Wynne MD CHEMISTRY ORDERABLES Performing Organization Address [facility] de Phone Number CERNER MILLENNIUM * (ABNORMAL) [...] 100 98 - 107 mmol/L CERNER MILLENNIUM Carbon Dioxide 24 22 - 31 mmol/L CERNER MILLENNIUM Anion Gap 9 5 - 15 mmol/L CERNER MILLENNIUM Blood specimen (specimen) 12/23/2012 10:00 AM EDT 12/23/2012 10:08 AM EDT Narrative Resulting Agency Comment Spec In Lab Josemanuel Wynne MD CHEMISTRY ORDERABLES Performing Organization Address [facility] Co de Phone Number DANETTE HARTMANENNNONA * (ABNORMAL) CBC (with Diff) (12/23/2012 10:00 AM EDT) White Blood Cell 12.1(H) 4.0 - 10.0 x10(3)/mc L CERNER MILLENNIUM Red Blood Cell 2.73(L) 4.63 - 6.08 x10(6)/mc L CERNER MILLENNIUM Hemoglobin 7.6(L) 13.7 - 17.5 gm/dL CERNER MILLENNIUM Hematocrit 24.8(L) 40.0 - 51.0 % CERNER MILLENNIUM Mean Cell Volume 90.8 79.0 - 92.0 fL CERNER MILLENNIUM Mean Cell Hemoglobin 27.8 25.6 - 32.2 pg CERNER MILLENNIUM Mean Cell Hemoglobin Concentration 30.6(L) 32.0 - 36.5 gm/dL CERNER MILLENNIUM Platelet 362 145 - 370 x10(3)/mc L CERNER MILLENNIUM RDW Standard Deviation 56.8(H) 35.0 - 46.0 fL CERNER MILLENNIUM RDW coefficient of variation 17.2(H) 10.9 - 14.4 % CERNER MILLENNIUM Mean Platelet Volume 9.1 9.0 - 12.0 fL CERNER MILLENNIUM Blood specimen (specimen) 12/23/2012 10:00 AM EDT 12/23/2012 10:08 AM EDT Narrative Resulting Agency Comment Spec In Lab Josemanuel Wynne MD HEMATOLOGY ORDERABLE S Performing Organization Address [facility] Co de Phone Number [...] 40 mg, Oral, DAILY, First dose on 12/23/12 at 1700, Until Discontinued, Oral route preferred, Routine Given 12/23/2012 7:13 PM EDT 40 mg esomeprazole (NEXIUM) capsule 40 mg 40 mg, Oral, 2 TIMES DAILY, First dose on 12/24/12 at 0900, Until Discontinued, Routine Given 12/26/2012 9:26 AM EDT 40 mg Given 12/25/2012 8:17 PM EDT 40 mg Given 12/25/2012 9:00 AM EDT 40 mg hydroCODone-acetaminophen (VICODIN) 5-500 mg per tablet 1-2 tablet 1-2 tablet, Oral, EVERY 4 HOURS PRN, Starting on 12/23/12 at 1608, Until 12/26/12 at 1750, Pain, Maximum dose of acetaminophen is 4000 mg from all sources in 24 hours., Routine Given 12/26/2012 3:28 PM EDT 2 tablets Given 12/26/2012 11:37 AM EDT 2 tablets Given 12/26/2012 6:31 AM EDT 2 tablets levothyroxine (SYNTHROID) tablet 50 mcg 50 mcg, Oral, DAILY, First dose on 12/23/12 at 1700, Until Discontinued, Routine Given 12/26/2012 5:59 AM EDT 50 mcg Given 12/25/2012 5:20 AM EDT 50 mcg Given 12/24/2012 6:00 AM EDT 50 mcg montelukast (SINGULAIR) tablet 10 mg 10 mg, Oral, DAILY, First dose on 12/24/12 at 0900, Until Discontinued, Routine Given [...] at 100 mL/hr, Intravenous, CONTINUOUS, Starting on Tue12/23/12 at 1400, Until Tue12/26/12 at 0818 New [...] Prophylaxis 0014 (Given - Provider: Maddie Gallegos RN)09 (Given - Provider: Caterina Funk RN) esomeprazole (NEXIUM) capsule 40 mg (CANCELED) 40 mg, Oral, 2 TIMES DAILY, First dose on 12/24/12 at 0900, Until Discontinued, Routine 0900 (Given - Provider: Caterina Funk RN)2041 (Given - Provider: Celina Villela RN) 899 (Given - Provider: Bailey Neves RN)2016 (Given - Provider: Beltran Moses, LANIE) 925 (Given - Provider: Caterina Damon, LANIE) levothyroxine (SYNTHROID) tablet 50 mcg (CANCELED) 50 mcg, Oral, DAILY, First dose on 12/23/12 at 1700, Until Discontinued, Routine 0600 (Given - Provider: Yennifer Olguin RN) 0520 (Given - Provider: Beltran Msoes, LANIE) 0559 (Given - Provider: Beltran Moses RN) montelukast (SINGULAIR) tablet 10 mg (CANCELED) 10 mg, Oral, DAILY, First dose on 12/24/12 at 0900, Until Discontinued, Routine 0900 (Given - Provider: Caterina Funk RN) 899 (Given - Provider: Bailey Neves RN) 925 (Given - Provider: Caterina Damon RN) senna-docusate (PERICOLACE) 8.6-50 mg per tablet 1-4 tablet (CANCELED) 1-4 tablet, Oral, 2 TIMES DAILY, First dose on 12/23/12 at 2100, Until Discontinued, Start with 1 tablet or liquid equivalent orally twice daily and titrate up to achieve: 1. One bowel movement at least every 48 hours, AND 2. Without straining, Routine 899 (Given - Provider: Caterina Funk RN)2042 (Given - Provider: Celina Villela RN) 899 (Given - Provider: Bailey Neves RN)2016 (Given - Provider: Beltran Moses RN) 925 (Given - Provider: Caterina Damon RN) sodium chloride 0.9 % flush 5 mL (CANCELED) 5 mL, Intravenous, EVERY 12 HOURS, First dose on 12/23/12 at 1630, Until Discontinued 0335 (Not Given - Provider: Maddie Gallegos RN - Reason: See comment - Comment: has IVF infusing)1630 (Given - Provider: Caterina Funk RN) 0430 (Given - Provider: Beltran Moses, LANIE)1630 (Given - Provider: Bailey Neves RN) 0430 (Given - Provider: Beltran Moses RN) Continuous Medication Order 12/24/2012 12/25/2012 12/26/2012 sodium chloride 0.9 % irrigation 3,000 mL (CANCELED) 3,000 mL, Irrigation, CONTINUOUS, Starting on 12/23/12 at 2015, Until Tue12/26/12 at 0818, Routine 0200 (New Bag - Provider: Yennifer Olguin RN)0413 (New Bag - Provider: Yennifer Olguin RN)0613 (New Bag - Provider: Maddie Gallegos RN)0735 (New Bag - Provider: Caterina Funk RN)0953 (New Bag - Provider: Caterina Funk, LANIE)1600 (New Bag - Provider: Caterina Funk RN) 0215 (New Bag - Provider: Beltran Moses, LANIE)0428 (New Bag - Provider: Beltran Msoes, LANIE) sodium chloride 0.9% infusion (CANCELED) 1,000 mL, at 100 mL/hr, Intravenous, CONTINUOUS, Starting on 12/23/12 at 1400, Until Tue12/26/12 at 0818 0906 (New Bag - Provider: Caterina Funk RN)1850 (New Bag - Provider: Caterina Funk, LANIE) 0442 (New Bag - Provider: Beltran Moses, LANIE)1356 (New Bag - Provider: Bailey Neves RN)1537 (Stopped - Provider: Bailey Neves RN - Comment: stop per urology) PRN Medication Order 12/24/2012 12/25/2012 12/26/2012 hydroCODone-acetaminophe n (VICODIN) 5-500 mg per tablet 1-2 tablet 1-2 tablet, Oral, EVERY 4 HOURS PRN, Starting on 12/23/12 at 1608, Until 12/26/12 at 1750, Pain, Maximum dose of acetaminophen is 4000 mg from all sources in 24 hours., Routine 0653 (Given - Provider: Maddie Gallegos RN) 0631 (Given - Provider: Beltran Moses, LANIE)1100 (Given - Provider: Bailey Neves RN - Comment: pt requesting meds)1600 (Given - Provider: Bailey Neves RN)2017 (Given - Provider: Beltran Moses RN) 0631 (Given - Provider: Beltran Moses RN)1137 (Given - Provider: Maritza Green, LANIE)1528 (Given - Provider: Maritza Green RN) documented in this encounter Care Teams Histotechnologist Supervisor Relationship Specialty Start Date End Date Cameron Patel MD [address] [place] [address] PCP - General 10/26/12 documented as of this encounter
--- OUTSIDE RECORDS SUMMARY | 2024-06-06 12:29 | XMS_ITS | Encounter Summary ---
Author Organization [facility] [place] [address] Care Team Providers Care Catalogue Maker Name Role Phone Farnaz Pineda MD Primary Care Provider [phone] Reason for Visit * Reason Comments Hematuria Encounter Details Date Type Department Care Team (Latest Contact Info) Description 12/21/2012 12:00 PM EDT Procedure [place] [id number] Ross Madrid MD [facility] [place] [address] Hematuria (Primary Dx) Discharge Disposition: Home Social [...] unspecified documented in this encounter Care Teams Catalogue Maker Relationship Specialty Start Date End Date Farnaz Pineda MD [address] [place] [address] PCP - General 10/26/12 documented as of this encounter
--- OUTSIDE RECORDS SUMMARY | 2024-06-06 12:29 | XMS_ITS | Encounter Summary ---
Author Organization [facility] Address [address] [facility] [place] [address] Care Team Providers Care Product Safety Administrator Name Role Phone Farnaz Pineda MD Primary Care Provider [phone] Encounter Details Date Type Department Care Team (Latest Contact Info) Description 11/28/2012 2:00 PM EST - 11/28/2012 11:59 PM [facility] Hospital Encounter XRay at [facility] [address] [place] [id number] H/O prostatectomy Social History Tobacco Use Types [...] were obtained in the for orientations. Findings Airplane Dispatch Clerk Pelvis: ?? No dilated loops of air-filled [...] were obtained in the for orientations. Findings Airplane Dispatch Clerk Pelvis: No dilated loops of air-filled small [...] reviewed by the attending Ross Madrid MD [facility] FLUORO ORDERABLE S documented in this encounter [...] mLs documented in this encounter Care Teams Product Safety Administrator Relationship Specialty Start Date End Date Farnaz Pineda MD [address] [place] [address] PCP - General 10/26/12 documented as of this encounter
--- OUTSIDE RECORDS SUMMARY | 2024-06-06 12:29 | XMS_ITS | Encounter Summary ---
Author Organization [facility] [place] [address] Care Team Providers Care Raw Shellfish Preparer Name Role Phone Farnaz Pineda MD Primary Care Provider [phone] Encounter Details Date Type Department Care Team (Late st Contact Info) Description 12/28/2012 9:30 AM EDT Office [place] [id number] [address] [place] Social History Tobacco Use Types Packs/Day [...] on filedocumented in this encounter Care Teams Raw Shellfish Preparer Relationship Specialty Start Date End Date Farnaz Pineda MD [address] [place] [address] PCP - General 10/26/12 documented as of this encounter
--- OUTSIDE RECORDS SUMMARY | 2024-06-06 12:29 | XMS_ITS | Encounter Summary ---
Author Organization [place] [address] Care Team Providers Care Fulfillment Mail Clerk Name Role Phone Farnaz Pineda MD Primary Care Provider [phone] Encounter Details Date Type Department Care Team (Latest Contact Info) Description 12/08/2012 12:38 PM EST - 12/08/2012 11:59 PM EST Hospital [place] [address] Prostate cancer Social History Tobacco [...] Diagnosis Comments CT PELVIS SOFT TISSUE (GI PLASTIC ROLLER) WWO CONTRAST STAT 12/08/2012 3:02 PM EST [...] (series 2, images 35, 36; series 8, , 37). Scattered foci of air are seen [...] mg documented in this encounter Care Teams Fulfillment Mail Clerk Relationship Specialty Start Date End Date Farnaz Pineda MD [address] [place] [address] PCP - General 10/26/12 documented as of this encounter
--- OUTSIDE RECORDS SUMMARY | 2024-06-06 12:29 | XMS_ITS | Encounter Summary ---
Author Organization [facility] [place] [address] Care Team Providers Care White Washer Piler Name Role Phone Farnaz Pineda MD Primary Care Provider [phone] Reason for Visit * Reason Comments Urinary Retention Encounter Details Date Type Department Care Team (Late st Contact Info) Description 01/18/2013 10:30 AM EDT [place] [phone] Ross Madrid MD [facility] [place] [address] Hematuria (Primary Dx) Discharge Disposition: Home Social [...] unspecified documented in this encounter Care Teams White Washer Piler Relationship Specialty Start Date End Date Farnaz Pineda MD [address] [place] [address] PCP - General 10/26/12 documented as of this encounter
--- OUTSIDE RECORDS SUMMARY | 2024-06-06 12:29 | XMS_ITS | Encounter Summary ---
Author Organization [facility] [place] [address] Care Team Providers Care Medical Oncologist Name Role Phone Farnaz Pineda MD Primary Care Provider [phone] Encounter Details Date Type Department Care Team (Late st Contact Info) Description 12/27/2012 5:16 PM EDT Anesthesia Event [place] [phone] Rosa Escalante MD [facility] [place] [address] Jenny Kaur MD [facility] [place] [address] Anesthesia Record Procedure Summary Procedure Name Responsible Anesthesiologist Anesthesia Start Time Anesthesia Stop Time CYSTO, IRRIGATION & EVACUATION OF CLOTS (WRVU 5.44) (Bladder) Rosa Escalante MD 12/27/126 12/27/12 1812 Events Date Time Event Comment [...] ASSISTED performed by Ross Madrid MD at [facility] MAIN OR ??? Lap, pelvic lymphadenectomy 11/20/2012 LAPAROSCOPY,WITH BILATERAL TOTAL PELVIC LYMPHADENECTOMY, ROBOTIC performed by Ross Madrid MD at [facility] MAIN OR History Substance Use Topics ??? [...] discussed with patient. Plan discussed with attending. [facility] Alexander Campusc. Assessment: documented in this encounter Miscellaneous Notes * Addendum Note - Fela Real - 12/28/2012 11:38 AM EDT Addendum created 12/28/12 1138 by Fela Real Modules edited:Anesthesia Events, Anesthesia Responsible Staff, SmartForms SmartFormsVN Section for SmartForms 266 documented in this encounter Plan of Treatment Not on file documented as of this encounter Visit Diagnoses Not on filedocumented in this encounter Care Teams Medical Oncologist Relationship Specialty Start Date End Date Farnaz Pineda MD [address] [place] [address] PCP - General 10/26/12 documented as of this encounter
--- OUTSIDE RECORDS SUMMARY | 2024-06-06 12:29 | XMS_ITS | Encounter Summary ---
Author Organization [facility] [place] [address] Care Team Providers Care Natural Gas Inspector Name Role Phone Farnaz Pineda MD Primary Care Provider [phone] Encounter Details Date Type Department Care Team (Late st Contact Info) Description 11/28/2012 11:15 AM EST [place] [address] Encounter for removal of urinary [...] device documented in this encounter Care Teams Natural Gas Inspector Relationship Specialty Start Date End Date Farnaz Pineda MD [address] [place] [address] PCP - General 10/26/12 documented as of this encounter
--- OUTSIDE RECORDS SUMMARY | 2024-06-06 12:29 | XMS_ITS | Encounter Summary ---
Author Organization [facility] [place] [address] Care Team Providers Care Lab Rn Name Role Phone Farnaz Pineda MD Primary Care Provider [phone] Encounter Details Date Type Department Care Team (Late st Contact Info) Description 01/18/2013 Telephone [place] [phone] Eddie Proctor MD [facility] [place] [address] Social History Tobacco Use Types Packs/Day Years [...] on filedocumented in this encounter Care Teams Lab Rn Relationship Specialty Start Date End Date Farnaz Pineda MD [address] [place] [address] PCP - General 10/26/12 documented as of this encounter
--- OUTSIDE RECORDS SUMMARY | 2024-06-06 12:29 | XMS_ITS | Encounter Summary ---
Author Organization [facility] [place] [address] Care Team Providers Care Hide Splitter Name Role Phone Farnaz Pineda MD Primary Care Provider [phone] Encounter Details Date Type Department Care Team (Late st Contact Info) Description 12/20/2012 [place]phone [place] [phone] Elaina Dominguez MD [facility] [place] [address] Social History Tobacco Use Types Packs/Day Years [...] on filedocumented in this encounter Care Teams Hide Splitter Relationship Specialty Start Date End Date Farnaz Pineda MD [address] [place] [address] PCP - General 10/26/12 documented as of this encounter
--- OUTSIDE RECORDS SUMMARY | 2024-06-06 12:30 | XMS_ITS | Encounter Summary ---
Author Organization [facility] Address [address] [place] [address] Care Team Providers Care Hand Binder Cutter Name Role Phone Farnaz Pineda MD Primary Care Provider [phone] Fela Villegas DUTY OFFICER Unavailable [phone] Reason for Visit * Reason Onset Date Comments New/Evolving Symptoms 06/04/2024 Encounter Details Date Type Department Care Team (Late st Contact Info) Description 06/04/2024 Telephone [facility] Pulmon[facility] [address] [place] [phone] Felicia Taveras MBBS [address] [place] [address], [facility] [address] [place] [address] New/Evolving Symptoms Social History Tobacco Use Types Packs/Day Years Used Date Smoking Tobacco: Former Cigarettes 1 54.7 S tarted: 1970 Smokeless Tobacco: Never Alcohol [...] encounter Miscellaneous Notes * Telephone Encounter - Yazan Lowe - 06/06/2024 1101 EDT Patient left message returning call. States that they have an appointment in [facility] with a Medical Instructor, no appointment needed at this time and will call if needed. * Telephone Encounter - Felicia Taveras MBBS - 06/05/2024 1658 EDT Called - no answer - left a voice message asking patient to call back If cough is not severe can continue to monitor with aggressive airway clearance - albuterol inhalerfollowed by hypertonic saline nebulization followed by acapella use Can get sputum culture if coughing up sputum Can repeat Augmentin for 7 days amoxicillin-clavulanate (AUGMENTIN) 875-125 mg per tablet Take 1 Tablet by mouth every 12 hours. For 1 week If that is also not helping can trial prednisone 40 mg oral once daily for 5 days If having trouble coughing up can trial vest - will need urgent clinic appt for this - he may be due for a fu anyways * Telephone Encounter - Raf Amaro RN - 06/04/2024 0946 EDT Called patient: Feels cough has increased in the past week or so Finished antibiotics a few weeks ago No increase in sputum production No chest tightness Occasional wheezing No fevers No sinus problems or MASCORRO Does think increased OJEDA No problems with sleep or appetite No edema No acute distress, able to talk normally and carry on a conversation. * Telephone Encounter - Yazan Lowe - 06/04/2024 0934 EDT Spouse calls to report that patient was doing better but has begun coughing again. Coughing started1-1.5 weeks ago. Sylvain is bringing up sputum but not as much as it feels like he needs to and not as much as before. Finished the antibiotics, has been using the nebulizer twice daily. Patient is wondering what next steps to take. Please contact for additional triage/recommendations. documented in this encounter Plan of Treatment Upcoming Encounters Date Type Department Care Team (Late st Contact Info) Description 03/18/2025 14:00 EDT Ancillary Procedure [facility] Cardiology - [address] [place] [address] 03/18/2025 14:40 EDT Office Visit [facility] Cardiology - [address] [place] [address] Fela Villegas NP [address] [place] [phone] documented as of this encounter Visit Diagnoses Not on filedocumented in this encounter Care Teams Hand Binder Cutter Relationship Specialty Start Date End Date Farnaz Pineda MD [address] [place] [address] PCP - General 11/18/09 Fela Villegas NP [address] [place] [phone] Transformation Analyst Cardiovascular Disease 03/12/22 documented as of this encounter
--- OUTSIDE RECORDS SUMMARY | 2024-06-06 12:30 | XMS_ITS | Encounter Summary ---
Author Organization [facility] Address [facility] [place] [address] Care Team Providers Care Finishing Lab Technician Name Role Phone Farnaz Pineda MD Primary Care Provider [phone] Encounter Details Date Type Department Care Team (Latest Contact Info) Description 11/02/2012 1:51 PM EST - 11/02/2012 11:59 PM EST Hospital Encounter XRay at [facility] [address] [facility] [phone] Prostate cancer Social History Tobacco Use Types [...] prostate documented in this encounter Care Teams Finishing Lab Technician Relationship Specialty Start Date End Date Farnaz Pineda MD [address] [place] [address] PCP - General 10/26/12 documented as of this encounter
--- OUTSIDE RECORDS SUMMARY | 2024-06-06 12:30 | XMS_ITS | Encounter Summary ---
Author Organization [facility] Address [address] [place] [address] Care Team Providers Care Bid Clerk Name Role Phone Farnaz Pineda MD Primary Care Provider [phone] Fela Villegas BULL WHEEL WORKER Unavailable [phone] Encounter Details Date Type Department Care Team (Late st Contact Info) Description 04/16/2024 Orders Only [facility] [address] [facility], [place] [address] Felicia Taveras MBBS [address] [facility], [facility] [address] [place] [address] Bronchiectasis without complication (HCC-CMS) (Primary Dx) Social History Tobacco Use Types [...] Info) Description 03/18/2025 14:00 EDT Ancillary Procedure [facility] Cardiology - [address] [place], [place] [id number] 03/18/2025 14:40 EDT Office Visit [facility] Cardiology - [address] [place], [place] [id number] Fela Villegas NP [address] [place] [phone] documented as of this encounter Visit Diagnoses Diagnosis Bronchiectasis without complication (HCC-CMS)- Primary Bronchiectasis without acute exacerbation documented in this encounter Orders Equipment Count Last Ordered Date First Orde red Date GENERIC DME ORDER 1 04/16/2024 documented in this encounter Care Teams Bid Clerk Relationship Specialty Start Date End Date Farnaz Pineda MD [address] [place] [address] PCP - General 11/18/09 Fela Villegas NP [address] [phone] Manager Digital Cardiovascular Disease 03/12/22 documented as of this encounter
--- OUTSIDE RECORDS SUMMARY | 2024-06-06 12:30 | XMS_ITS | Encounter Summary ---
Author Organization [facility] [place] [address] Care Team Providers Care Orthopaedic Nurse Name Role Phone Farnaz Pineda MD Primary Care Provider [phone] Encounter Details Date Type Department Care Team (Latest Contact Info) Description 11/20/2012 6:01 AM EST - 11/21/2012 6:28 PM [facility] Hospital Encounter [address] [place] [phone] Presley Madrid MD [facility] [address] History of prosthetic aortic valve Discharge Disposition: [...] longer draining. The number for questions is [phone] before 5 PM weekdays and [phone] after 5 PM and weekends. Activity level: [...] 4-6 weeks for PSA check. Please call [phone] (clinic number for appointments) to confirm date [...] deductible hadnot been met prior to admission. [facility] pharmacy is unable to run the prescription/coverage through insurance without a hard script.TC to [facility] and unable to locate his information and sent to [place] [phone] and spoke with Farnaz who could not [...] I/Os: Date 11/20/12 07 - 11/21/1259 Shift [phone] 24 Hour Total I N T A [...] to sleep quickly. 1315 Patient states in [place] when asked where his is but does not elaborate when pressed. States he feels wiped out and dozes back to sleep quickly when left alone. 1320 Patient now answering questions appropriately when awakened. Denies pain/nausea. 1345 Report to Christin DELA CRUZ. Info/orders reviewed, questions answered. Patient ready for transfer peoples hospital when transport arrives. documented in this [...] 9% 2/2 cores L latl mid - Shasha 4+4=8, 19% 1/1 core L mid - [...] a risk of micrometastatic disease given his [place] 9 diagnosis. I counseled the patient that [...] testing and communicate with his PCP and/or real estate sales associate regarding clearance and a bridging regimen for [...] Madrid MD - 11/20/2012 12:27 PM EST [facility] Operative Note Patient Name: Dillan Al : [id number] MR#: [id number] Case Date: 11/20/2012 Surgeon: Surgeon(s) and Role: [...] the mid left abdomen, and a 10mm legal executive assistant port placed several cm superior to [...] bleeding was noted. At this time, the legal executive assistant port was closed with Pritesh Thomasen [...] Operative Note Patient Name: Dillan Al : [id number] MR#: [id number] Case Date: 11/20/2012 Surgeon: Surgeon(s) and Role: [...] 2.8L Estimated Blood Loss: 100cc Drains: 19Fr ejancarlos, 20Fr womack Disposition: awakened from anesthesia, extubated [...] a TRUS biopsy on 10/19/12. 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 The number for questions is [phone] before 5 PM weekdays and [phone] after 5 PM and weekends. Activity level: [...] 4-6 weeks for PSA check. Please call [phone] (clinic number for appointments) to confirm date and time of your appointment if you do not receive your apointment in 2-3 days. General Instructions None Provider Contact Information: [facility]. If you have any questions or concerns, please feel free to contact us. Provider Contact Information: Urology Clinic: [facility] (after business hours): Signed: ALVARO LEDESMA MD [...] 11/20/2012 1:00 PM EST BASIC METABOLIC PANEL Routine 11/20/2012 12:20 PM EST SURGICAL PATHOLOGY [...] 11/20/2012 6:12 AM EST TYPE AND SCREEN ([facility]/CGP/CONSTANTINE) Routine 11/20/2012 6:12 AM EST documented in this encounter Results * SCAN DOC: LAB (12/27/2012 9:13 AM EDT) Narrative 12/27/2012 9:13 AM EDT Procedure Note Provider, Scanning - 12/27/2012 9:13 AM EDT Scanning Provider MEDIA MGR SCAN EXT O RDR/RSLT * Prothrombin Time (11/21/2012 4:11 AM EST) Prothrombin Time 13.8 11.9 - 14.7 sec [facility] Comment: [facility] Transfusion Committee Guidelines: INR less than 2.0, PTT less than OR equal to 43.5 seconds, or Fibrinogen greater than or equal to 100 mg/dl indicate adequate procoagulant activity for hemostasis in patients without underlying bleeding disorders. International Normalization Ratio 1.0 0.9 - 1.1 CERNER MILLENNIUM Blood specimen (specimen) 11/21/2012 4:11 AM EST 11/21/2012 4:20 AM EST Narrative Resulting Agency Comment Spec In Lab Presley Madrid MD HEMATOLOGY ORDERABLE S CERNER MILLENNIUM * (ABNORMAL) Differential, Automated (11/21/2012 4:11 AM EST) Neutrophil % 80.8(H) 34.0 - 71.0 % CERNER MILLENNIUM Neutrophil Absolute 9.62(H) 1.50 - 6.30 x10(3)/mc L CERNER MILLENNIUM Lymph % 6.3(L) 19.0 - 53.0 % CERNER MILLENNIUM Lymphocytes Abs 0.8(L) 1.0 - 3.6 x10(3)/mc L CERNER MILLENNIUM Monocyte % 12.7 4.0 - 13.0 % CERNER MILLENNIUM Monocyte Abs 1.5(H) 0.2 - 1.0 x10(3)/mc L CERNER MILLENNIUM Eos % 0.0 0.0 - 7.0 % CERNER [...] differential will be performed. Immature Gran Absolute 0.00 0.00 - 0.05 x10(3)/mc L CERNER MILLENNIUM Blood specimen (specimen) 11/21/2012 4:11 AM EST 11/21/2012 4:20 AM EST Presley Madrid MD HEMATOLOGY ORDERABLE S CERNER MILLENNIUM * (ABNORMAL) CBC (with Diff) (11/21/2012 4:11 AM EST) White Blood Cell 11.9(H) 4.0 - 10.0 x10(3)/mc L CERNER MILLENNIUM Red Blood Cell 4.31(L) 4.63 - 6.08 x10(6)/mc L CERNER MILLENNIUM Hemoglobin 12.9(L) 13.7 - 17.5 gm/dL CERNER MILLENNIUM Hematocrit 40.7 40.0 - 51.0 % CERNER MILLENNIUM Mean Cell Volume 94.4(H) 79.0 - 92.0 fL CERNER MILLENNIUM Mean Cell Hemoglobin 29.9 25.6 - 32.2 pg CERNER MILLENNIUM Mean Cell Hemoglobin Concentration 31.7(L) 32.0 - 36.5 gm/dL CERNER MILLENNIUM Platelet 217 145 - 370 x10(3)/mc L CERNER MILLENNIUM RDW Standard Deviation 55.0(H) 35.0 - 46.0 fL CERNER MILLENNIUM RDW coefficient of variation 15.8(H) 10.9 - 14.4 % CERNER MILLENNIUM Mean Platelet Volume 9.7 9.0 - 12.0 fL CERNER MILLENNIUM Blood specimen (specimen) 11/21/2012 4:11 AM EST 11/21/2012 4:20 AM EST Narrative Resulting Agency Comment Spec In Lab Presley Madrid MD HEMATOLOGY ORDERABLE S CERDAKSHA MILLENNIUM * (ABNORMAL) APTT (11/21/2012 4:11 AM EST) Partial Thromboplastin Time 113(H) 25 - 35 sec CERNER MILLENNIUM Comment: Recommended therapeutic PTT range for full dose unfractionated heparin is 80-114 seconds. Blood specimen (specimen) 11/21/2012 4:11 AM EST 11/21/2012 4:20 AM EST Narrative Resulting Agency Comment Spec In Lab Presley Madrid MD HEMATOLOGY ORDERABLE S CERNER MILLENNIUM * (ABNORMAL) Differential, Automated (11/20/2012 9:59 PM EST) Neutrophil % 88.5(H) 34.0 - 71.0 % CERNER MILLENNIUM Neutrophil Absolute 10.02(H) 1.50 - 6.30 x10(3)/mc L CERNER MILLENNIUM Lymph % 8.8(L) 19.0 - 53.0 % CERNER MILLENNIUM Lymphocytes Abs 1.0 1.0 - 3.6 x10(3)/mc L CERNER MILLENNIUM Monocyte % 2.4(L) 4.0 - 13.0 % CERNER MILLENNIUM Monocyte Abs 0.3 0.2 - 1.0 x10(3)/mc L CERNER MILLENNIUM Eos % 0.0 0.0 - 7.0 % CERNER MILLENNIUM Eosinophils Abs 0.0 0.0 - 0.5 x10(3)/mc L CERNER MILLENNIUM Basophil % 0.1 0.0 - 2.0 % CERNER MILLENNIUM Baso [...] HEMATOLOGY ORDERABLE S DANETTE PRIDEIUM * (ABNORMAL) APTT (11/20/2012 9:59 PM EST) Partial Thromboplastin Time 51(H) 25 - 35 sec CERNER MILLENNIUM Comment: Recommended therapeutic PTT range for full dose unfractionated heparin is 80-114 seconds. Blood specimen (specimen) 11/20/2012 9:59 PM EST 11/20/2012 10:12 PM EST Narrative Resulting Agency Comment Spec In Lab Presley Madrid MD HEMATOLOGY ORDERABLE S DANETTE PRIDEIUM * (ABNORMAL) CBC (with Diff) (11/20/2012 9:59 PM EST) White Blood Cell 11.3(H) 4.0 - 10.0 x10(3)/mc L CERNER MILLENNIUM Red Blood Cell 4.47(L) 4.63 - 6.08 x10(6)/mc L CERNER MILLENNIUM Hemoglobin 13.6(L) 13.7 - 17.5 gm/dL CERNER MILLENNIUM Hematocrit 42.8 40.0 - 51.0 % CERNER MILLENNIUM Mean Cell Volume 95.7(H) 79.0 - 92.0 fL CERNER MILLENNIUM Mean Cell Hemoglobin 30.4 25.6 - 32.2 pg CERNER MILLENNIUM Mean Cell Hemoglobin Concentration 31.8(L) 32.0 - 36.5 gm/dL CERNER MILLENNIUM Platelet 214 145 - 370 x10(3)/mc L CERNER MILLENNIUM RDW Standard Deviation 53.8(H) 35.0 - 46.0 fL CERNER MILLENNIUM RDW coefficient of variation 15.4(H) 10.9 - 14.4 % CERNER MILLENNIUM Mean Platelet Volume 10.1 9.0 - 12.0 fL CERNER MILLENNIUM Blood specimen (specimen) 11/20/2012 9:59 PM EST 11/20/2012 10:12 PM EST Narrative Resulting Agency Comment Spec In Lab Presley Mdarid MD HEMATOLOGY ORDERABLE S CERNER MILLENNIUM * (ABNORMAL) Differential, Automated (11/20/2012 3:31 PM EST) Neutrophil % 92.6(H) 34.0 - 71.0 % CERNER MILLENNIUM Neutrophil Absolute 10.06(H) 1.50 - 6.30 x10(3)/mc L CERNER MILLENNIUM Lymph % 4.2(L) 19.0 - 53.0 % CERNER MILLENNIUM Lymphocytes Abs 0.5(L) 1.0 - 3.6 x10(3)/mc L CERNER MILLENNIUM Monocyte % 2.7(L) 4.0 - 13.0 % CERNER MILLENNIUM Monocyte Abs 0.3 0.2 - 1.0 x10(3)/mc L CERNER MILLENNIUM Eos % 0.1 0.0 - 7.0 % CERNER [...] MILLENNIUM * (ABNORMAL) CBC (with Diff) (11/20/2012 3:31 PM EST) White Blood Cell 10.9(H) 4.0 - 10.0 x10(3)/mc L CERNER MILLENNIUM Red Blood Cell 4.55(L) 4.63 - 6.08 x10(6)/mc L CERNER MILLENNIUM Hemoglobin 13.8 13.7 - 17.5 gm/dL CERNER MILLENNIUM Hematocrit 43.0 40.0 - 51.0 % CERNER MILLENNIUM Mean Cell Volume 94.5(H) 79.0 - 92.0 fL CERNER MILLENNIUM Mean Cell Hemoglobin 30.3 25.6 - 32.2 pg CERNER MILLENNIUM Mean Cell Hemoglobin Concentration 32.1 32.0 - 36.5 gm/dL CERNER MILLENNIUM Platelet 197 145 - 370 x10(3)/mc L CERNER MILLENNIUM RDW Standard Deviation 52.9(H) 35.0 - 46.0 fL CERNER MILLENNIUM RDW coefficient of variation 15.4(H) 10.9 - 14.4 % CERNER MILLENNIUM Mean Platelet Volume 9.8 9.0 - 12.0 fL CERNER MILLENNIUM Blood specimen (specimen) 11/20/2012 3:31 PM EST 11/20/2012 3:38 PM EST Narrative Resulting Agency Comment Spec In Lab Presley Madrid MD HEMATOLOGY ORDERABLE S CERNER MINNIEENNIUM * (ABNORMAL) Differential, Automated (11/20/2012 1:00 PM EST) Neutrophil % 90.8(H) 34.0 - 71.0 % CERNER MILLENNIUM Neutrophil Absolute 11.02(H) 1.50 - 6.30 x10(3)/mc L CERNER MILLENNIUM Lymph % 5.8(L) 19.0 - 53.0 % CERNER MILLENNIUM Lymphocytes Abs 0.7(L) 1.0 - 3.6 x10(3)/mc L CERNER MILLENNIUM Monocyte % 2.3(L) 4.0 - 13.0 % CERNER [...] CBC (with Diff) (11/20/2012 1:00 PM EST) White Blood Cell 12.1(H) 4.0 - 10.0 x10(3)/mc L CERNER MILLENNIUM Red Blood Cell 4.63 4.63 - 6.08 x10(6)/mc L CERNER MILLENNIUM Hemoglobin 13.9 13.7 - 17.5 gm/dL CERNER MILLENNIUM Hematocrit 43.8 40.0 - 51.0 % CERNER MILLENNIUM Mean Cell Volume 94.6(H) 79.0 - 92.0 fL CERNER MILLENNIUM Mean Cell Hemoglobin 30.0 25.6 - 32.2 pg CERNER MILLENNIUM Mean Cell Hemoglobin Concentration 31.7(L) 32.0 - 36.5 gm/dL CERNER MILLENNIUM Platelet 222 145 - 370 x10(3)/mc L CERNER MILLENNIUM RDW Standard Deviation 53.8(H) 35.0 - 46.0 fL CERNER MILLENNIUM RDW coefficient of variation 15.6(H) 10.9 - 14.4 % CERNER MILLENNIUM Mean Platelet Volume 10.0 9.0 - 12.0 fL CERNER MILLENNIUM Blood specimen (specimen) 11/20/2012 1:00 PM EST 11/20/2012 1:07 PM EST Narrative Resulting Agency Comment Spec In Lab Presley Madrid MD HEMATOLOGY ORDERABLE S CERNER MILLENNIUM * (ABNORMAL) Basic Metabolic Panel (non-fasting) (11/20/2012 12:20 PM EST) Glucose 142 60 - 199 mg/dL CERNER MILLENNIUM Comment:Diabetes: >=200 mg/d L plus symptoms Blood Urea Nitrogen 16 10 - 20 mg/dL CERNER MILLENNIUM Creatinine 1.15 0.80 - 1.50 mg/dL CERNER MILLENNIUM Comment: Please note that the pediatric reference intervals supplied above were not validated at [facility]. Results from pediatric patients should be interpreted [...] 103 98 - 107 mmol/L CERNER MILLENNIUM Carbon Dioxide 28 22 - 31 mmol/L CERNER MILLENNIUM Anion Gap 8 5 - 15 mmol/L CERNER MILLENNIUM Calcium 8.3(L) 8.5 - 10.5 mg/dL CERNER MILLENNIUM Est [...] CHEMISTRY ORDERABLES [facility] * Surgical Pathology Report (11/20/2012 12:02 PM EST) Surgical Pathology Report ? [facility] ? Provider: ?? PRESLEY MADRID ?Pt. Name: ?? DILLAN AL ? Acc #: ?[id number] ?Pt. ? Col Date: ?? 11/20/2012 ? /Sex: ?1950,(62 years),Male ? Rec Date: ?? 11/20/2012 ? LOC: ?4WST ? SURGICAL PATHOLOGY ? ---Pathologic Diagnosis--- ? A - Prostate gland, resection: ? Specimen type: ?Radical prostatectomy ? 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 Shasha grades: ? 3+4 with a minor component ? of grade 5 carcinoma (see Comment) ? Shasha score: ?7 ? Location of tumor: ?Bilateral, [...] metastasis: ? pMX (cannot be assessed) ? [facility] ? Provider: ?? MERCY, PRESLEY S ?Pt. Name: ?? MIKAELA, DILLAN Terrence ? Acc #: ?[id number] ?Pt. ? Col Date: ?? 11/20/2012 ? [...] to the 2005 ISUP consensus guidelines on Shasha grading ? of prostatic adenocarcinomas in prostatectomy [...] vesicles and ?bilateral vas deferentia present. ? [facility] ? Provider: ?? PRESLEY MADRID ?Pt. Name: ?? DILLAN AL ? Acc #: ?[id number] ?Pt. ? Col Date: ?? 11/20/2012 ? [...] in ? (C2-C9). ?? (R9) ??aje/JSB ? [facility] ? Provider: ?? PRESLEY MADRID ?Pt. Name: ?? DILLAN AL ? Acc #: ?[id number] ?Pt. ? Col Date: ?? 11/20/2012 ? /Sex: ?1950,(62 years),Male ? Rec Date: ?? 11/20/2012 ? LOC: ?4WST ? SURGICAL PATHOLOGY ? ---Clinical Information--- ? Specimen Submitted: ? A - Prostate ? B - Left pelvic lymph nodes ? C - Right pelvic lymph nodes ? Clinical History/Diagnosis: ? Prostate cancer [facility] 11/20/2012 12:0 2 PM EST Presley Madrid MD PATHOLOGY/CYTOLOGY O RDARTEMIO Performing Organization Address [facility] Co de Phone Number DANETTE VALENCIA * Specimen to Pathology (surgical or derm) (11/20/2012 10:19 AM EST) AP Specimen 11/20/2012 10:1 9 AM EST 11/20/2012 10:19 AM EST Narrative DANETTE VALENCIA - 11/20/2012 10:19 AM EST Specimen requisition ordered. ??Separate Pathology report to follow Presley Madrid MD PATHOLOGY/CYTOLOGY O JUAN DIEGO Performing Organization Address [facility] Co de Phone Number DANETTE VALENCIA * Specimen to Pathology (surgical or derm) (11/20/2012 10:19 AM EST) AP Specimen 11/20/2012 10:1 9 AM EST 11/20/2012 10:19 AM EST Narrative DANETTE VALENCIA - 11/20/2012 10:19 AM EST Specimen requisition ordered. ??Separate Pathology report to follow Presley Madrid MD PATHOLOGY/CYTOLOGY O JUAN DIEGO Performing Organization Address [facility] Co de Phone Number DANETTE VLAENCIA * Specimen to Pathology (surgical or derm) (11/20/2012 10:19 AM EST) AP Specimen 11/20/2012 10:1 9 AM EST 11/20/2012 10:19 AM EST Narrative DANETTE VALENCIA - 11/20/2012 10:19 AM EST Specimen requisition ordered. ??Separate Pathology report to follow Presley Madrid MD PATHOLOGY/CYTOLOGY O JUAN DIEGO DANETTE VALENCIA * Antibody screen (11/20/2012 6:12 AM EST) Ab Screen Interp Negative DANETTE VALENCIA Expires at [phone] on: [id number] DANETTE VALENCIA Blood specimen (specimen) 11/20/2012 6:12 AM EST 11/20/2012 6:25 AM EST Narrative Resulting Agency Comment Spec In Lab Presley Madrid MD BLOOD BANK LAB ORDER JAMES Performing Organization Address [facility] Co de Phone Number [facility] * ABO/Rh Typing (11/20/2012 6:12 AM EST) ABORH Type A Pos CERDAKSHA HARTMANENNIUM Blood specimen (specimen) 11/20/2012 6:12 AM EST 11/20/2012 6:25 AM EST Narrative Resulting Agency Comment Spec In Lab Presley Madrid MD BLOOD BANK LAB ORDER JAMES Performing Organization Address [facility] Co de Phone Number [facility] * APTT (11/20/2012 6:12 AM EST) Partial Thromboplastin Time 29 25 - 35 sec [facility] Comment: Recommended therapeutic PTT range for full dose unfractionated heparin is 80-114 seconds. Blood specimen (specimen) 11/20/2012 6:12 AM EST 11/20/2012 6:25 AM EST Narrative Resulting Agency Comment Spec In Lab Presley Madrid MD HEMATOLOGY ORDERABLE S Performing Organization Address [facility] de Phone Number [facility] * Prothrombin Time (11/20/2012 6:12 AM EST) Prothrombin Time 12.4 11.9 - 14.7 sec [facility] Comment: [facility] Transfusion Committee Guidelines: INR less than 2.0, PTT less than OR equal to 43.5 seconds, or Fibrinogen greater than or equal to 100 mg/dl indicate adequate procoagulant activity for hemostasis in patients without underlying bleeding disorders. International Normalization Ratio 0.9 0.9 - 1.1 CERNER MILLENNIUM Blood [...] than 145 sec X 2 - call house painter helper See Bolus dosing guidance for aPTT values [...] - Reason: See comment - Comment: given 1730) 0823 (Given - Provider: Christin Awad RN) [...] than 145 sec X 2 - call house painter helper See Bolus dosing guidance for aPTT values less than 80 seconds under PRN medications , Routine 1715 (New Bag - Provider: Christin Awad, RN)2300 (Rate/Dose Change - Provider: Ree Shirley RN) 0549 (Stopped - Provider: Ree Shirley, RN - Comment: Per DR. Hyman)0615 (Restarted - Provider: Ree Shirley, LANIE) lactated ringers infusion 1,000 mL (CANCELED) 1,000 [...] Edgar, LANIE)2200 (New Bag - Provider: Ree Shirley, LANIE) 0822 (New Bag - Provider: Christin Awad, LANIE) PRN Medication Order 11/19/2012 11/20/2012 11/21/2012 acetaminophen (TYLENOL) tablet 1,000 mg (CANCELED) 1,000 mg, Oral, EVERY 6 HOURS PRN, Starting on Tue11/20/12 at 1206, Until Tue11/21/12 at 202, Pain, for MODERATE pain, Do not exceed [...] Routine documented in this encounter Care Teams Orthopaedic Nurse Relationship Specialty Start Date End Date Farnaz Pineda MD [address] [place] [address] PCP - General 10/26/12 documented as of this encounter
--- OUTSIDE RECORDS SUMMARY | 2024-06-06 12:30 | XMS_ITS | Encounter Summary ---
Author Organization [facility] [place] [address] Care Team Providers Care Ict Business Development Manager Name Role Phone Farnaz Pineda MD Primary Care Provider [phone] Encounter Details Date Type Department Care Team (Late st Contact Info) Description 11/02/2012 1:40 PM EST Clinical [place] [address] Social History Tobacco Use Types [...] on filedocumented in this encounter Care Teams Ict Business Development Manager Relationship Specialty Start Date End Date Farnaz Pineda MD [address] [place] [address] PCP - General 10/26/12 documented as of this encounter
--- OUTSIDE RECORDS SUMMARY | 2024-06-06 12:30 | XMS_ITS | Encounter Summary ---
Author Organization [facility] [place] [address] Care Team Providers Care Manager Infusion Name Role Phone Farnaz Pineda MD Primary Care Provider [phone] Reason for Visit * Reason Comments Radiation Consult Encounter Details Date Type Department Care Team (Late st Contact Info) Description 11/02/2012 10:30 AM EST Office Visit [place]ematology [place] [address] Abraham Chase MD [facility] [place] [address] Prostate cancer (Primary Dx) Social History Tobacco [...] consultation at the Prostate Interdisciplinary [facility] at [facility] at the request of Dr. Madrid regarding [...] prostate biopsy performed 10/05/12 reviewed here at [place]: ---Pathologic Diagnosis--- CONSULTATION CASE Outside slides labeled [id number], collection date 10/05/12: 1 - Prostate, right lateral apex, needle core biopsy: Adenocarcinoma, [place] grade 3 + 3, involving approximately 10% [...] mid lateral, needle core biopsy: 1. Adenocarcinoma, [place] grade 4 + 4, involving approximately 20% of the single biopsy core. 2. Focal high grade prostatic intraepithelial neoplasia (PIN). 10 - Prostate, left mid medial, needle core biopsy: Adenocarcinoma, [place] grade 4 + 5, involving approximately 10% [...] male with high risk prostate cancer, T1c, [place] 4+5=9, PSA 7.1. We discussed treatment options [...] prostate documented in this encounter Care Teams Manager Infusion Relationship Specialty Start Date End Date Farnaz Pineda MD [address] [place] [address] PCP - General 10/26/12 documented as of this encounter
--- OUTSIDE RECORDS SUMMARY | 2024-06-06 12:30 | XMS_ITS | Encounter Summary ---
Author Organization [facility] Address [facility] [place] [address] Care Team Providers Care Compensation And Benefits Analyst Name Role Phone Farnaz Pineda MD Primary Care Provider [phone] Encounter Details Date Type Department Care Team (Late st Contact Info) Description 11/16/2012 [place] [address] Jessica Baron PA [facility] PRE-[place]MISSION [place] [address] History of prosthetic aortic valve Anesthesia Record [...] means documented in this encounter Care Teams Compensation And Benefits Analyst Relationship Specialty Start Date End Date Farnaz Pineda MD [address] [place] [address] PCP - General 10/26/12 documented as of this encounter
--- OUTSIDE RECORDS SUMMARY | 2024-06-06 12:30 | XMS_ITS | Encounter Summary ---
Author Organization [facility] [place] [address] Care Team Providers Care Brake Lining Finisher Name Role Phone Farnaz Pineda MD Primary Care Provider [phone] Encounter Details Date Type Department Care Team (Latest Contact Info) Description 10/31/2012 6:44 AM EST - 10/31/2012 11:59 PM EST Hospital [place] [address] Ross Velazquez MD [facility] [place] [address] Discharge Disposition: Home Social History Tobacco Use [...] 7:49 AM EST) Surgical Pathology Report ? [facility] ? Provider: ?? HYAMS, ROSS S ?Pt. Name: ?? MIKAELADILLAN ? Acc #: ?[id number] ?Pt. ? Col Date: ?? 10/31/2012 ? /Sex: ?1950,(62 years),Male ? Rec Date: ?? 10/31/2012 ? LOC: ?OPW ? SURGICAL PATHOLOGY ? ---Pathologic Diagnosis--- ? CONSULTATION CASE ? Outside slides labeled [id number], collection date 10/05/12: ? 1 - Prostate, right lateral apex, needle core biopsy: ? Adenocarcinoma, [employer] grade 3 + 3, involving approximately ? [...] lateral, needle core biopsy: ? 1. ??Adenocarcinoma, [employer] grade 4 + 4, involving ? approximately [...] needle core biopsy: ?Benign prostatic tissue. ? [facility] ? Provider: ?? ROSS VELAZQUEZ ?Pt. Name: ?? DILLAN AL ? Acc #: ?[id number] ?Pt. ? Col Date: ?? 10/31/2012 ? [...] description not recorded. ? ---Gross Description--- ? [facility] ([facility]) pathology slide(s) are reviewed. ??Refer ? to Diagnosis and Specimen Submitted for specific case information. ? For the full text of the [facility] report(s) please refer to Non-DH ? Documentation Pathology in the electronic health record (eDH). ? ---Clinical Information--- ? Specimen Submitted: ? CONSULTATION CASE ? A - 25 slides labeled [id number], collection date 10/05/12. ? [id number] ? Report to: ? [facility] ? Surgical Pathology Department ? [facility], [facility], 2nd Floor ? [address] [place] [address] Avenue ? [place], [place] ??[address] ? DANETTE VALENCIA 10/31/2012 7:49 AM EST Ross Velazquez MD PATHOLOGY/CYTOLOGY O RDERABLES DANETTE VALENCIA documented in this encounter Visit Diagnoses Not on filedocumented in this encounter Care Teams Brake Lining Finisher Relationship Specialty Start Date End Date Farnaz Pineda MD [address] [place] [address] PCP - General 10/26/12 documented as of this encounter
--- OUTSIDE RECORDS SUMMARY | 2024-06-06 12:30 | XMS_ITS | Encounter Summary ---
Author Organization [facility] Address [address] [place] [address] Care Team Providers Care Refrigeration Mechanic Helper Name Role Phone Farnaz Pineda MD Primary Care Provider [phone] Fela Villegas LEAFLET DISTRIBUTOR Unavailable [phone] Reason for Referral * Laboratory Services (Routine/Next Available) - New Request Specialty Diagnoses / Procedures [facility] Referred To Contact Diagnoses HO (acute kidney injury) ([place]) Procedures BUN Felicia Taveras MBBS [address] [address] Referral ID Status Reason Start Date Expiration Date V isits Requested Visits Authorized [id number] New Request 04/19/2024 1 1 * Laboratory Services (Routine/Next Available) - New Request Specialty Diagnoses / Procedures [facility]a Referred To Contact Diagnoses HO (acute kidney injury) ([place]) Procedures CREATININE Felicia Taveras MBBS [address] [address] Referral ID Status Reason Start Date Expiration Date V isits Requested Visits Authorized [id number] New Request 04/19/2024 1 1 Encounter Details Date Type Department Care Team (Late st Contact Info) Description 04/19/2024 Orders Only [facility] Operating Room [address] [place] [address] Felicia Taveras MBBS [address] [facility], Level [address] [place] [address] HO (acute kidney injury) ([place]) (Primary Dx) Social History Tobacco Use Types [...] Info) Description 03/18/2025 14:00 EDT Ancillary Procedure [facility] - [place] [address] 03/18/2025 14:40 EDT Office Visit [facility] - [address] [place], [place] [id number] Fela Villegas NP [address] [address] Scheduled Orders Name Type Priority Associated Diagnoses Orde r Schedule CREATININE Lab Routine HO (acute kidney injury) ([place]) Expected: 04/19/2024 (Approximate), Expires: 04/19/2025 BUN Lab Routine HO (acute kidney injury) ([place]) Expected: 04/19/2024 (Approximate), Expires: 04/19/2025 documented as of this encounter Visit Diagnoses Diagnosis HO (acute kidney injury) ([place])- Primary Acute kidney failure, unspecified documented in this encounter Care Teams Refrigeration Mechanic Helper Relationship Specialty Start Date End Date Farnaz Pineda MD [address] [place] [address] PCP - General 11/18/09 Fela Villegas NP [address] [place] [phone] Retail Wireless Sales Representative Cardiovascular Disease 03/12/22 documented as of this encounter
--- OUTSIDE RECORDS SUMMARY | 2024-06-06 12:30 | XMS_ITS | Encounter Summary ---
Author Organization [facility] [place] [address] Care Team Providers Care Investment Accounting Clerk Name Role Phone Farnaz Pineda MD Primary Care Provider [phone] Encounter Details Date Type Department Care Team (Late st Contact Info) Description 11/20/2012 7:23 AM EST Anesthesia Event [place] [phone] Susan Strange MD [facility] [place] [address] Jessica Baron PA [facility] [place] [address] Anesthesia Record Procedure Summary Procedure Name Responsible [...] nausea or vomiting Last Vitals: Filed Vitals: 11/20/12 1330 BP: 111/70 Pulse: 77 Temp: Resp: [...] on filedocumented in this encounter Care Teams Investment Accounting Clerk Relationship Specialty Start Date End Date Farnaz Pineda MD [address] [place] [address] PCP - General 10/26/12 documented as of this encounter
--- OUTSIDE RECORDS SUMMARY | 2024-06-06 12:30 | XMS_ITS | Encounter Summary ---
Author Organization [facility] [place] [address] Care Team Providers Care Topographical Drafter Name Role Phone Farnaz Pineda MD Primary Care Provider [phone] Encounter Details Date Type Department Care Team (Late st Contact Info) Description 11/02/2012 9:10 AM EST Clinical Support Hematology [place] [phone] Social History Tobacco Use Types Packs/Day Years [...] on filedocumented in this encounter Care Teams Topographical Drafter Relationship Specialty Start Date End Date Farnaz Pineda MD [address] [place] [address] PCP - General 10/26/12 documented as of this encounter
--- OUTSIDE RECORDS SUMMARY | 2024-06-06 12:30 | XMS_ITS | Encounter Summary ---
Author Organization [facility] Address [address] [place] [address] Care Team Providers Care Refrigerating Technician Name Role Phone Farnaz Pineda MD Primary Care Provider [phone] Fela Villegas LINE PATROLMAN Unavailable [phone] Reason for Visit * Reason Onset Date Comments DME 04/17/2024 DME-NEBULIZER OR CEE-[facility] Encounter Details Date Type Department Care Team (Late st Contact Info) Description 04/17/2024 Telephone [facility] Pulmonology [address] [facility], [place] [address] Felicia Taveras MBBS [address] [facility], [facility] [address] [place] [address] DME (DME-NEBULIZER ORDER-[facility]) Social History [...] Info) Description 03/18/2025 14:00 EDT Ancillary Procedure [facility] - [address] [place], [place] [id number] 03/18/2025 14:40 EDT Office Visit [facility] - [place] [address] [address] [place], [place] [phone] Fela Villegas NP [address] [address] documented as of this encounter Visit Diagnoses Not on filedocumented in this encounter Care Teams Refrigerating Technician Relationship Specialty Start Date End Date Farnaz Pineda MD [address] [place] [address] PCP - General 11/18/09 Fela Villegas NP [address] [place] [phone] Golf Professional Cardiovascular Disease 03/12/22 documented as of this encounter
--- OUTSIDE RECORDS SUMMARY | 2024-06-06 12:30 | XMS_ITS | Encounter Summary ---
Author Organization [facility] [place] [address] Care Team Providers Care Green Ware Caster Name Role Phone Farnaz Pineda MD Primary Care Provider [phone] Encounter Details Date Type Department Care Team (Late st Contact Info) Description 11/02/2012 9:05 AM EST Clinical Support [place]ematology [place] [phone] Social History Tobacco Use Types Packs/Day Years [...] on filedocumented in this encounter Care Teams Green Ware Caster Relationship Specialty Start Date End Date Farnaz Pineda MD [address] [place] [address] PCP - General 10/26/12 documented as of this encounter
--- OUTSIDE RECORDS SUMMARY | 2024-06-06 12:30 | XMS_ITS | Encounter Summary ---
Author Organization [facility] [place] [address] Care Team Providers Care Epic Manager Name Role Phone Farnaz Pineda MD Primary Care Provider [phone] Encounter Details Date Type Department Care Team (Late st Contact Info) Description 11/20/2012 7:30 AM EST - 11/20/2012 12:35 PM EST Surgery [place] [phone] Presley Madrid MD [facility] [place] [address] ROBOTIC LAPAROSCOPIC PROSTATECTOMY (WRVU 22.46) Social History [...] longer draining. The number for questions is [phone] before 5 PM weekdays and [phone] after 5 PM and weekends. Activity level: [...] 4-6 weeks for PSA check. Please call [phone] (clinic number for appointments) to confirm date [...] deductible hadnot been met prior to admission. [facility] pharmacy is unable to run the prescription/coverage through insurance without a hard script.TC to [facility] and unable to locate his information and sent to [facility] [phone] and spoke with Farnaz who could not [...] In: 5434.6 [P.O.:435; I.V.:4999.6] Out: 1445 [Urine:1275] SHIANA 70 Physical Exam Gen: NAD, resting comfortable [...] I/Os: Date 11/20/12 0700 - 11/21/1259 Shift 5986-9705 4546-2298 8466-9605 24 Hour Total I N T A [...] to sleep quickly. 1315 Patient states in [place] when asked where his is but does not elaborate when pressed. States he feels wiped out and dozes back to sleep quickly when left alone. 1320 Patient now answering questions appropriately when awakened. Denies pain/nausea. 1345 Report to Christin DELA CRUZ. Info/orders reviewed, questions answered. [facility]. documented in this [...] a TRUS biopsy on 10/19/12. 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 At this time, the operational assistant port was closed with Pritesh Thomasen [...] Operative Note Patient Name: Dillan Al : [id number] MR#: [id number] Case Date: 11/20/2012 Surgeon: Surgeon(s) and Role: [...] per outside path report: R apex - Rosebud 3+3=7, 9% 2/2 cores L latl mid [...] longer draining. The number for questions is [phone] before 5 PM weekdays and [phone] after 5 PM and weekends. Activity level: [...] 4-6 weeks for PSA check. Please call [phone] (clinic number for appointments) to confirm date and time of your appointment if you do not receive your apointment in 2-3 days. General Instructions None Provider Contact Information: [facility]. If you have any questions or concerns, please feel free to contact us. Provider Contact Information: Urology Clinic: [facility] (after business hours): Signed: ALVARO LEDESMA MD [...] 11/20/2012 6:12 AM EST TYPE AND SCREEN ([facility]/CGP/CONSTANTINE) Routine 11/20/2012 6:12 AM EST documented in this encounter Results * SCAN DOC: LAB (12/27/2012 9:13 AM EDT) Narrative 12/27/2012 9:13 AM EDT Procedure Note Provider, Scanning - 12/27/2012 9:13 AM EDT Scanning Provider MEDIA MGR SCAN EXT O RDR/RSLT * Prothrombin Time (11/21/2012 4:11 AM EST) Prothrombin Time 13.8 11.9 - 14.7 sec [facility] Comment: [facility] Transfusion Committee Guidelines: INR less [...] ORDERABLE S CERNER MILLENNIUM * (ABNORMAL) APTT (11/21/2012 4:11 AM [...] CERDAKSHA HARTMANENNIUM * (ABNORMAL) CBC (with Diff) (11/20/2012 1:00 [...] intervals supplied above were not validated at [facility]. Results from pediatric patients should be interpreted [...] Madrid MD CHEMISTRY ORDERABLES Performing Organization Address City/State/[facility] Co de Phone Number [facility] * Surgical Pathology Report (11/20/2012 12:02 PM EST) Surgical Pathology Report ? [facility] ? Provider: ?? PRESLEY MADRID ?Pt. Name: ?? MIKAELA, DILLAN W ? Acc #: ?[id number] ?Pt. ? Col Date: ?? 11/20/2012 ? /Sex: ?1950,(62 years),Male ? Rec Date: ?? 11/20/2012 ? LOC: ?4WST ? SURGICAL PATHOLOGY ? ---Pathologic Diagnosis--- ? A - Prostate gland, resection: ? Specimen type: ?Radical prostatectomy ? 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 Rosebud grades: ? 3+4 with a minor component ? of grade 5 carcinoma (see Comment) ? Rosebud score: ?7 ? Location of tumor: ?Bilateral, [...] metastasis: ? pMX (cannot be assessed) ? [facility] ? Provider: ?? MERCY, PRESLEY S ?Pt. Name: ?? DILLAN AL ? Acc #: ?[id number] ?Pt. ? Col Date: ?? 11/20/2012 ? [...] vesicles and ?bilateral vas deferentia present. ? [facility] ? Provider: ?? PRESLEY MADRID ?Pt. Name: ?? DILLAN AL ? Acc #: ?[id number] ?Pt. ? Col Date: ?? 11/20/2012 ? [...] in ? (C2-C9). ?? (R9) ??aje/JSB ? [facility] ? Provider: ?? PRESLEY MADRID ?Pt. Name: ?? DILLAN AL ? Acc #: ?[id number] ?Pt. ? Col Date: ?? 11/20/2012 ? /Sex: ?1950,(62 years),Male ? Rec Date: ?? 11/20/2012 ? LOC: ?4WST ? SURGICAL PATHOLOGY ? ---Clinical Information--- ? Specimen Submitted: ? A - Prostate ? B - Left pelvic lymph nodes ? C - Right pelvic lymph nodes ? Clinical History/Diagnosis: ? Prostate cancer [facility] 11/20/2012 12:0 2 PM EST Presley Madrid MD PATHOLOGY/CYTOLOGY [place] Performing Organization Address [facility] Co de Phone Number DANETTE VALENCIA * Specimen to Pathology (surgical or derm) (11/20/2012 10:19 AM EST) AP Specimen 11/20/2012 10:1 9 AM EST 11/20/2012 10:19 AM EST Narrative [facility]ETTE VALENC[facility] - 11/20/2012 10:19 AM EST Specimen requisition ordered. ??Separate Pathology report to follow Presley Madrid MD PATHOLOGY/CYTOLOGY [place] Performing Organization Address [facility] Co de Phone Number DANETTE VALENCIA * Specimen to Pathology (surgical or derm) (11/20/2012 10:19 AM EST) AP Specimen 11/20/2012 10:1 9 AM EST 11/20/2012 10:19 AM EST Narrative DANETTE VALENCIA - 11/20/2012 10:19 AM EST Specimen requisition ordered. ??Separate Pathology report to follow Presley Madrid MD PATHOLOGY/CYTOLOGY [place] Performing Organization Address [facility] Co de Phone Number DANETTE VALENCIA * Specimen to Pathology (surgical or derm) (11/20/2012 10:19 AM EST) AP Specimen 11/20/2012 10:1 9 AM EST 11/20/2012 10:19 AM EST Narrative DANETTE VALENCIA - 11/20/2012 10:19 AM EST Specimen requisition ordered. ??Separate Pathology report to follow Presley Madrid MD PATHOLOGY/CYTOLOGY [place] Performing Organization Address [facility] Co de Phone Number DANETTE VALENCIA * Antibody screen (11/20/2012 6:12 AM EST) Ab Screen Interp Negative DANETTE VALENCIA Expires at 2359 on: [id number] [facility]TE VALENC[facility] Blood specimen (specimen) 11/20/2012 6:12 AM EST 11/20/2012 6:25 AM EST Narrative Resulting Agency Comment Spec In Lab Presley Madrid MD BLOOD BANK LAB ORDER JAMES Performing Organization Address City/[facility] Co de Phone Number DANETTE VALENCIA * ABO/Rh Typing (11/20/2012 6:12 AM EST) ABORH Type A Pos DANETTE PRIDEIUM Blood specimen (specimen) 11/20/2012 6:12 AM EST 11/20/2012 6:25 AM EST Narrative Resulting Agency Comment Spec In Lab Presley Madrid MD BLOOD BANK LAB ORDER JAMES Performing Organization Address [facility] Co de Phone Number [facility] * APTT (11/20/2012 6:12 AM EST) Partial Thromboplastin Time 29 25 - 35 sec [facility] Comment: Recommended therapeutic PTT range for full dose unfractionated heparin is 80-114 seconds. Blood specimen (specimen) 11/20/2012 6:12 AM EST 11/20/2012 6:25 AM EST Narrative Resulting Agency Comment Spec In Lab Presley Madrid MD HEMATOLOGY ORDERABLE S Performing Organization Address [facility] Co de Phone Number DANETTE VALENCIA * Prothrombin Time (11/20/2012 6:12 AM EST) Prothrombin Time 12.4 11.9 - 14.7 sec [facility] Comment: [facility] Transfusion Committee Guidelines: INR less than 2.0, PTT less than OR equal to 43.5 seconds, or Fibrinogen greater than or equal to 100 mg/dl indicate adequate procoagulant activity for hemostasis in patients without underlying bleeding disorders. International Normalization Ratio 0.9 0.9 - 1.1 D[facility]TE HARTMANENNIUM Blood [...] ceFAZolin (ANCEF) injection ONCE PRN, Starting on Tue11/20/12 at 0747, [...] given 1730) 0823 (Given - Provider: Christin Awad, LANIE) enoxaparin (LOVENOX) injection 100 mg 100 mg, [...] 145 sec X 2 - call house calls nurse practitioner See Bolus dosing guidance for aPTT values [...] in 24 hours, Recovery (Recovery-Hospital Unit), Routine 2039 (Given - Provider: Ree Shirley RN) 0822 [...] Routine documented in this encounter Care Teams Epic Manager Relationship Specialty Start Date End Date Farnaz Pineda MD [address] [place] [address] PCP - General 10/26/12 documented as of this encounter
--- OUTSIDE RECORDS SUMMARY | 2024-06-06 12:30 | XMS_ITS | Clinical Summary ---
Author Organization [facility] Address [address] [place] [address] Care Team Providers Care Ancient Art Curator Name Role Phone Farnaz Pineda MD Primary Care Provider [phone] Fela Villegas ASSISTANT AUTO CENTER MANAGER Unavailable [phone] Allergies No known active allergies Medications Medication [...] Encounters Date Type Department Care Team Description 06/04/2024 Telephone [facility] Pulmonology [address] [facility], [place] [id number] Felicia Taveras MBBS New/Evolving Symptoms 04/19/2024 Orders Only [facility] Operating Room [address] [place], [place] [id number] Felicia Taveras MBBS HO (acute kidney injury) ([facility]) (Primary Dx) 04/17/2024 Telephone [facility] Pulmonology [address] [facility], [place] [id number] Felicia Taveras MBBS DME ([facility] 04/16/2024 9:35 EDT - 04/16/2024 9:37 EDT Hospital Encounter [facility] Operating Room [address] [facility], [place] [address] Felicia Taveras MBBS ILD (interstitial lung disease) ([facility]) Discharge Disposition: Home or Self Care 04/16/2024 Orders Only [facility] Pulmonology [address] [facility], [place] [id number] Felicia Taveras MBBS Bronchiectasis without complication ([facility]) (Primary Dx) 04/05/2024 Prep for Procedure [facility] Pulmonology [address] [place] [address] Felicia Taveras MBBS ILD (interstitial lung disease) ([facility]) (Primary Dx) 04/04/2024 15:25 EDT Phlebotomy Only [facility] - Outpatient Phlebotomy Drawing [address] [place] [address] Lab, [facility] Op Phlebotomy Moderate persistent reactive airway disease without complication; Chronic cough; Abnormal CT of the chest; ILD (interstitial lung disease) ([facility]) 04/04/2024 14:00 EDT Office Visit [facility] Pulmonology [address] [place], [place] [address] Felicia Taveras MBBS Moderate persistent reactive airway disease without complication (Primary Dx); Chronic cough; Abnormal CT of the chest; ILD (interstitial lung disease) ([facility]) 03/15/2024 15:20 EDT Office Visit [facility] [place] [place] [address] Fela Villegas NP Paroxysmal atrial fibrillation ([facility]) (Primary Dx); Encounter for follow-up for aortic valve replacement 03/15/2024 E-Consult [facility] Pulmonology & Critical Care - Main [address] [address] Dinan Sol MD from Last 3 Months Surgical [...] EDT Ancillary Procedure [facility] [address] [place], [place] [phone] 03/18/2025 14:40 EDT Office Visit [facility] [address] [place], [place] [phone] Fela Villegas NP [address] [facility] [address] [place] [address] Health Maintenance Due Date Last Done Comments Asthma Action Plan 1950 Hepatitis C Screen 1950 Lung Function Test (Spirometry) 1950 RSV Immunization ( o r 60+ Years) (1 - 1-dose 60+ series) 2010 COVID-19 Vaccine (2 - 2022-2 4 season) 2023 08/05/2021 Fall Risk Screening 04/04/2025 04/04/2024, 03/11/2022, 03/05/2021, Additional history exists Medical Devices Implanted Type Area Assembly Line Upholsterer Device Identifier Shelf Expiration Date Model / Serial / Lot Aortic Valve Replacement, [employer] Filter Procedures Procedure Name Priority Date/Time Associated Diagnosis Comments ECG REPORT - SCANNED 04/17/2024 10:45 EDT MISCELLANEOUS TEST, JOHNSON Routine 04/16/2024 13:46 EDT EXPANDED RESPIRATORY VIRAL PANEL, PCR (DOES NOT INCLUDE INFLUENZA OR RSV) Routine 04/16/2024 13:45 EDT NON PRESCHOOL LEAD TEACHER/FNA CYTOLOGY Routine 04/16/2024 13:42 EDT DIFFERENTIAL, LAVAGE FLUID Routine 04/16/2024 13:42 EDT [employer] CULTURE SMEAR Today 04/16/2024 13:42 EDT AFB CULTURE/SMEAR, OTHER Routine 04/16/2024 13:42 EDT BACTERIAL CULTURE/SMEAR, RESPIRATORY Routine 04/16/2024 13:42 EDT FUNGUS CULTURE Routine 04/16/2024 13:42 EDT [employer] CULTURE SMEAR Today 04/16/2024 13:41 EDT AFB CULTURE/SMEAR, OTHER Routine 04/16/2024 13:41 EDT BACTERIAL CULTURE/SMEAR, RESPIRATORY Routine 04/16/2024 13:41 EDT FUNGUS CULTURE Routine 04/16/2024 13:41 EDT ADULT BRONCHOSCOPY Routine 04/16/2024 11 :00 EDT ILD (interstitial lung disease) ([facility]) SSA/SSB PANEL Routine 04/04/2024 15:[address] of the chest ILD (interstitial lung disease) ([facility]) SCL 70 ANTIBODY, IGG, SERUM Routine 04/04/2024 15:[address] of the chest ILD (interstitial lung disease) ([facility]) ELEMENTARY SCHOOL SCIENCE TEACHER ANTIBODY, IGG Routine 04/04/2024 15: [address] of the chest ILD (interstitial lung disease) ([facility]) CCP ANTIBODIES Routine 04/04/2024 15:[address] of the chest ILD (interstitial lung disease) ([facility]) ANTI NUCLEAR AB (OPAL), IFA Routine 04/04/2024 15:[address] of the chest ILD (interstitial lung disease) (HCC-CMS) DOUBLE STRANDED DNA ANTIBODY, IGG Routine 04/04/2024 15:[address] of the chest ILD (interstitial lung disease) (HCC-CMS) BASIC METABOLIC PANEL (BMP) Routine 04/04/2024 15:32 EDT Moderate persistent reactive airway disease without complication Chronic cough Abnormal CT of the chest ILD (interstitial lung disease) (HCC-CMS) COMPLETE BLOOD COUNT AND DIFFERENTIAL Routine 04/04/2024 15:32 EDT Moderate persistent reactive airway disease without complication Chronic cough Abnormal CT of the chest ILD (interstitial lung disease) (HCC-CMS) RHEUMATOID SCREEN/TITRE Routine 04/04/2024 15:[address] of the chest ILD (interstitial lung disease) (HCC-CMS) ECG REPORT - SCANNED 03/18/2024 17:26 EDT EKG 12-LEAD Routine 03/15/2024 15:35 EDT Paroxysmal atrial fibrillation (HCC-CMS) from Last 3 Months Results * ECG REPORT - SCANNED (04/17/2024 10:45 EDT) 04/17/2024 10:4 5 EDT Scan 2 Data Warehouse Consultant PROCEDURE/MINOR MARCO A GICAL ORDERABLES * MISCELLANEOUS TEST, FONDA (04/16/2024 13:46 EDT) Miscellaneous Test, [place] SEE NOTE 04/17/2024 23:20 EDT [facility] Comment: Test ?Result ? Flag ??Unit ?? RefValue Aspergillus Ag, BAL ? <0.500 ? index ??<0.5 ? ADDITIONAL INFORMATION ?This is a qualitative test and the resulted index value is ?not indicative of disease severity. ??Serial testing is ?recommended for patients at high risk for invasive ?aspergillosis. ?This assay was performed using the FDA-cleared [employer] ?Platelia Aspergillus Galactomannan EIA. ?Test Performed by: ?[facility] ?[address] [place] [address] ?Teacher Emotionally Impaired: Cherrie Fernandez Ph.D.; CLIA# [id number] Fluid STRUCTURE OF UPPER LOBE OF LEFT LUNG / Unknown 04/16/2024 13:46 EDT 04/16/2024 14:05 EDT Felicia DELEON CHEMI STRY & BLOOD GAS ORDERABLES [facility] [address] [place] [address] * EXPANDED RESPIRATORY VIRAL PANEL, PCR (DOES NOT INCLUDE INFLUENZA OR RSV) (04/16/2024 13:45 EDT) Paraflu Type 1 Rslt (PF1RES) Negative Negative 04/16/2024 23:50 EDT [facility] Paraflu Type 2 Rslt (PF2RES) Negative Negative 04/16/2024 23:50 EDT [facility] Paraflu Type 3 Rslt (PF3RES) Negative Negative 04/16/2024 23:50 EDT [facility] Paraflu Type 4 Rslt Negative Negative 04/16 23:50 EDT [facility] Rhinovirus RNA Rslt (RVRES) Negative Negative 04/16/2024 23:50 EDT [facility] Metapneumovirus RNA Rslt (HMVRES) Negative Negative 04/16/2024 23:50 EDT [facility] Adenovirus DNA Rslt (ADVRES) Negative Negative 04/16/2024 23:50 EDT [facility] BAL STRUCTURE OF UPPER LOBE OF LEFT LUNG / Unknown 04/16/2024 13:45 EDT 04/16/2024 14:07 EDT [facility] - 04/16/2024 23:50 EDT This test was developed and its performance characteristics by [facility]. It has not been cleared or [...] Felicia DELEON MICRO BIOLOGY - GENERAL ORDERABLES [facility] [address] [place], [place] [phone] * NON PRESCHOOL LEAD TEACHER/FNA CYTOLOGY (04/16/2024 13:42 EDT) Note to Patient The following pathology results have been interpreted by your pathologist and may be available to you before your health provider has had the opportunity to review them. Please allow time for your provider to receive these results and explore management options, if applicable. 04/18/2024 14:57 EDT [facility] Final Diagnosis A. BRONCHOALVEOLAR LAVAGE, LEFT UPPER LOBE, ANTERIOR SEGMENT, CYTOLOGIC EVALUATION: - No malignant cells identified. - Occasional benign bronchial cells and abundant alveolar macrophages present. - Silver stain: Negative for fungal organisms. - Oil Red O stain: Less than 10% lipid-laden macrophages. 04/18/2024 14:57 [facility] Attestation By the signature below, the attending physician certifies that they have personally conducted a gross and/or microscopic examination of the described specimens and rendered or confirmed the above diagnosis. 04/18/2024 14:57 [facility] at 1457 Clinical History 04/18/2024 14:57 [facility] Gross Description A. 25 mL of cloudy, pale pink fluid with red fragments were received and processed by selective cellular enhancement technique. 04/18/2024 14:57 [facility] Performing Lab [facility] 07/2024 14:57 [facility] Scanned Images 04/18/2024 14:57 [facility] BAL STRUCTURE OF UPPER LOBE OF LEFT LUNG / Unknown 04/16/2024 13:42 EDT 04/17/2024 10:56 EDT Felicia DELEON PATHO LOGY ORDERABLES [facility] [address] [place] [address] * DIFFERENTIAL, LAVAGE FLUID (04/16/2024 13:42 EDT) Neutrophils Fluid Relative 19 % 04/21/2024 12:48 [facility] Lymphocytes Fluid Relative 24 % 04/21/2024 12:48 [facility] [place]/Macrophage 57 % 12:48 [facility] Path Review Fluid, other Reviewed by Dr Sandra Arnold 7.10.24. 04/21/2024 12:48 [facility] BAL STRUCTURE OF UPPER LOBE OF LEFT LUNG / Unknown 04/16/2024 13:42 EDT 04/16/2024 14:08 EDT Narrative [facility] - 04/21/2024 12:48 EDT Bacteria present. Lining cells present. Felicia DELEON GEN L AB UNIT COLLECT ORDERABLES Performing Organization Address City/[facility]/ZIP Co de Phone Number [facility] [address] [place] [address] * (ABNORMAL) BACTERIAL CULTURE/SMEAR, RESPIRATORY (04/16/2024 13:42 EDT) Only the most recent of2 resultswithin the time period is included. Organism ID [id number], 000 to 100,000 CFU/ml VITEK SUSCEPTIBILITY 04/18/2024 11:07 EDT [facility] Comment: Usual kayce-pharyngeal david Smear Neutrophils Present(A) 04/18/2024 11:07 EDT [facility] Comment:Corrected result: Pr eviously reported as Few Neutrophils Present on 04/16/2024 at 1558 EDT. Smear Squamous Epithelial Cells(A) 04/18/2024 11:07 EDT [facility] Comment:Corrected result: Pr eviously reported as Few Squamous Epithelial Cells on 04/16/2024 at 1558 EDT. Smear Gram Positive Cocci(A) 04/18/2024 11:07 EDT [facility] Comment:Corrected result: Pr eviously reported as Few Gram Positive Cocci on 04/16/2024 at 1558 EDT. Smear Respiratory epithelial cells absent(A) 04/18/2024 11:07 EDT [facility] Smear Mucus present(A) 04/18/2024 11:07 EDT [facility] Comment: Cytospin gram stain interpreted. KEELEY anterior segment - BAL BAL STRUCTURE OF UPPER LOBE OF LEFT LUNG / Unknown 04/16/2024 13:42 EDT 04/16/2024 14:08 EDT Felicia DELEON MICRO BIOLOGY - GENERAL ORDERABLES [facility] [address] [place] [id number] * FUNGUS CULTURE (04/16/2024 13:42 EDT) Only the most recent of2 resultswithin the time period is included. Organism ID Yeast isolated at 1st reading VITEK SUSCEPTIBILITY 05/14/2024 11:07 EDT [facility] Organism ID Yeast Not Cryptococcus or Dimorphic Fungi VITEK SUSCEPTIBILITY 05/14/2024 11:07 EDT [facility] BAL STRUCTURE OF UPPER LOBE OF LEFT LUNG / Unknown 04/16/2024 13:42 EDT 04/16/2024 14:08 EDT Felicia DELEON MICRO BIOLOGY - GENERAL ORDERABLES Performing Organization Address City/State/[facility] Co de Phone Number [facility] [address] [place] [id number] * ADULT BRONCHOSCOPY (04/16/2024 11:00 EDT) Anatomical [...] local analgesia and conscious sedation (see RN MAR). The adult small Olympus bronchoscope was then inserted through the right nostril. Vocal cords appeared inflamed and mildly edematous. Epiglottis appeared inflamed - images in scanned media. Lidocaine 1% administered in a [id number]-go fashion. ?? Endobronchial findings: There was significant [...] I personally spent 22 minutes in continuous [id number]-og-[id number] attendance with the patient during the administration [...] AM By Freddy Taveras Felicia DELEON GI WI OCEDURE ORDERABLES * RHEUMATOID SCREEN/TITRE (04/04/2024 15:32 EDT) Rheumatoid Factor <8.6 <12.0 IU/mL 04/04/2024 21:53 EDT [facility] Blood VENOUS BLOOD / Unknown Venipuncture / Unknown 04/04/2024 15:32 EDT 04/04/2024 16:26 EDT Felicia DELEON CHEMI STRY & BLOOD GAS ORDERABLES Performing Organization Address [facility] Co de Phone Number [facility] [address] [place] [address] * SSA/SSB PANEL (04/04/2024 15:32 EDT) Ro52 Anitbody, IgG <2.3 <20.0 CU 2023 11:35 EDT [facility] Comment:Results were obtaine d with the Anna[employer]ita [employer] Flash Ro52 chemiluminescent immunoassay. Values obtained with different manufacturers' assay methods must not be used interchangeably. Ro60 Antibody, IgG <7.0 <20.0 CU 2023 11:35 EDT [facility] Comment:Results were obtaine d with the [employer] Flash Ro60 chemiluminescent immunoassay. Values obtained with different manufacturers' assay methods must not be used interchangeably. SSB Antibody, IgG <3.3 <20.0 CU 024 11:35 EDT [facility] Comment:Results were obtaine d with the [employer] Flash SS-B chemiluminescent immunoassay. Values obtained with different manufacturers' assay methods must not be used interchangeably. Blood VENOUS BLOOD / Unknown Venipuncture / Unknown 04/04/2024 15:32 EDT 04/04/2024 16:26 EDT Felicia DELEON IMMUN OLOGY AND SEROLOGY ORDERABLES Performing Organization Address [facility]/ZIP Co de Phone Number [facility] [address] [place] [address] * CCP ANTIBODIES (04/04/2024 15:32 EDT) CCP Antibodies <2.5 <5.0 U/mL 04/05/2024 8:07 EDT [facility] Blood VENOUS BLOOD / Unknown Venipuncture / Unknown 04/04/2024 15:32 EDT 04/04/2024 16:[address] [facility] IMMUN OLOGY AND SEROLOGY ORDERABLES Performing Organization Address [facility] Co de Phone Number [facility] [address] [place] [address] * ELEMENTARY SCHOOL SCIENCE TEACHER ANTIBODY, IGG (04/04/2024 15:32 EDT) ELEMENTARY SCHOOL SCIENCE TEACHER Antibody, IgG <6.0 <20.0 CU 024 11:35 EDT [facility] Comment:Results were obtaine d with the [employer] Flash ELEMENTARY SCHOOL SCIENCE TEACHER chemilumenscent immunoassay. Values obtained with different manufacturers' assay methods may not be used interchangeably. Blood VENOUS BLOOD / Unknown Venipuncture / Unknown 04/04/2024 15:32 EDT 04/04/2024 16:[address] [facility] IMMUN OLOGY AND SEROLOGY ORDERABLES Performing Organization Address [facility]/ZIP Co de Phone Number [facility] [address] [place] [address] * SCL 70 ANTIBODY, IGG, SERUM (04/04/2024 15:32 EDT) Scl 70 Ab, IgG, S <0.2 <1.0 (Negative ) U 04/05/2024 17:04 EDT [facility] Comment: Test Performed by: [facility] - [address] [address] Teacher Emotionally Impaired: Cherrie Fernandez Ph.D.; CLIA# [id number] Blood VENOUS BLOOD / Unknown Venipuncture / Unknown 04/04/2024 15:32 EDT 04/04/2024 16:30 EDT [address]ettymariefaraz [facility] IMMUN OLOGY AND SEROLOGY ORDERABLES [facility] [address] [place] [address] * DOUBLE STRANDED DNA ANTIBODY, IGG (04/04/2024 15:32 EDT) [facility] dsDNA Ab, IgG <22.0 <27.0 IU/mL 04/05/2024 11:35 EDT [facility] Comment: Negative: <27.0 IU/mL Indeterminate: 27.0 - 35.0 IU/mL Positive: >35.0 IU/mL Results were obtained with [employer] Flash dsDNA chemiluminescent immunoassay. Values obtained with different manufacturers' assay methods may not be used interchangeably. Blood VENOUS BLOOD / Unknown Venipuncture / Unknown 04/04/2024 15:32 EDT 04/04/2024 16:[address] [facility] IMMUN OLOGY AND SEROLOGY ORDERABLES [facility] [address] [place] [address] * (ABNORMAL) COMPLETE BLOOD COUNT AND DIFFERENTIAL (04/04/2024 15:32 EDT) [facility] WBC 8.87 4.00 - 10.40 K/cmm 04/04/2024 16:26 EDT [facility] RBC 4.25(L) 4.36 - 5.78 M/cmm 04/04/2024 16:26 EDT [facility] Hemoglobin 13.2(L) 13.8 - 17.3 g/dL 04/04/2024 16:26 EDT [facility] HCT 42.2 39.5 - 50.2 % 04/04/2024 16:26 EDT [facility] MCV 99(H) 81 - 95 fL 04/04/2024 16:26 [facility] MCH 31.1 27.6 - 33.0 pg 04/04/2024 16:26 [facility] MCHC 31.3(L) 32.8 - 36.4 g/dL 04/04/2024 16:26 [facility] RDW-CV 15.6(H) <14.2 % 04/04/2024 16:26 [facility] RDW-SD 56.7(H) <46.0 fl 04/04/2024 16:26 [facility] PLT 205 141 - 377 K/cmm 04/04/2024 16:26 [facility] MPV 10.0 9.5 - 12.7 fL 04/04/2024 16:26 [facility] % Neutrophils 71.5 % 04/04/2024 16:26 [facility] % Lymphocytes 13.4 % 04/04/2024 16:26 [facility] % Monocytes 7.2 % 04/04/2024 16:26 [facility] % Eosinophils 6.7 % 04/04/2024 16:26 [facility] % Basophils 0.9 % 04/04/2024 16:26 [facility] % Immature Grans 0.3 <0.9 % 04/04/20 16:26 [facility] Absolute Neutrophils 6.34 2.20 - 8.85 K/cmm 04/04/2024 16:26 [facility] Absolute Lymphocytes 1.19 1.09 - 3.30 K/cmm 04/04/2024 16:26 [facility] Absolute Monocytes 0.64 0.10 - 0.80 K/cmm 04/04/2024 16:26 [facility] Absolute Eosinophils 0.59 0.03 - 0.61 K/cmm 04/04/2024 16:26 [facility] ABS Basophils 0.08 0.01 - 0.11 K/cmm 04/04/2024 16:26 EDT [facility] Absolute Immature Grans 0.03 0.00 - 0.06 K/cmm 04/04/2024 16:26 EDT [facility] Type of Differential: Auto 04/04/2024 16:26 EDT [facility] Blood VENOUS BLOOD / Unknown Venipuncture / Unknown 04/04/2024 15:32 EDT 04/04/2024 16:22 EDT Felicia DELEON PACKA GES & DNA PROBE ORDERABLES Performing Organization Address City/[facility]/ZIP Co de Phone Number [facility] [address] [place] [address] * ANTI NUCLEAR AB (OPAL), IFA (04/04/2024 15:32 EDT) Pathologist [facility] OPAL Interpretation Negative Negative 2023 14:28 EDT [facility] Comment:No titer performed, OPAL Screen is negative. Blood VENOUS BLOOD / Unknown Venipuncture / Unknown 04/04/2024 15:32 EDT 04/04/2024 16:26 EDT Narrative [facility] - 04/05/2024 14:28 EDT Results were obtained with the [employer] NOVA Lite HEp-2 OPAL Kit by indirect immunofluorescence. Felicia DELEON IMMUN OLOGY AND SEROLOGY ORDERABLES [facility] [address] [place] [address] * (ABNORMAL) BASIC METABOLIC PANEL (BMP) (04/04/2024 15:32 EDT) Pathologist [facility] Sodium 138 136 - 145 mmol/L 04/04/2024 17:01 EDT [facility] Potassium 4.7 3.5 - 5.0 mmol/L 04/04/2024 17:01 [facility] Chloride 104 96 - 110 mmol/L 04/04/2024 17:01 [facility] CO2 Total 27 22 - 32 mmol/L 04/04/2024 17:01 [facility] Anion Gap 7 5 - 14 mmol/L 04/04/2024 17:01 [facility] Glucose 74 70 - 99 mg/dl 04/04/2024 17:01 [facility] Calcium 9.1 8.5 - 10.5 mg/dL 04/04/2024 17:01 [facility] BUN 22 10 - 26 mg/dL 04/04/2024 17:01 [facility] Creatinine 1.38(H) 0.66 - 1.25 mg/dL 04/04/2024 17:01 [facility] eGFR 54(L) >60 mL/min/1.73 m2 04/04/2024 17:01 [facility] Blood VENOUS BLOOD / Unknown Venipuncture / Unknown 04/04/2024 15:32 EDT 04/04/2024 16:28 EDT Felicia DELEON CHEMI STRY & BLOOD GAS ORDERABLES [facility] [address] [place] [address] * ECG REPORT - SCANNED (03/18/2024 17:26 EDT) 03/18/2024 17:2 6 EDT Scan 2 Data Warehouse Consultant PROCEDURE/MINOR MARCO A GICAL ORDERABLES * EKG 12-LEAD (03/15/2024 15:35 EDT) 03/15/2024 15:3 5 EDT Narrative [facility] E[facility] - 03/16/2024 11:42 EDT ? [facility] ? Test Date: ?2024-03-15 Pat Name: ? DILLAN AL ? Department: ?? [facility] ? Room: ? Gender: ? Male ? Lead Manufacturing Engineer: ?? [id number] : ?1950 ? Requested By: GIULIA Mccormick Order Number: [id number] ? [place] MD: ?? ALVARO LECHUGA MD ? Measurements Intervals ?[place] ? Rate: ? 63 ? P: ?-5 WI: ? 187 ?QRS: ?-16 QRSD: ? 117 [...] Note Alvaro Lechuga MD - 03/16/[address] [facility] Test Date: 2024-03-15 Pat Name: DILLAN AL Department: [place] Room: Gender: Male Lead Manufacturing Engineer: [id number] : 1950 Requested By: GIULIA Mccormick Order Number: [id number] [place] MD: ALVARO LECHUGA MD Measurements Intervals [place] Rate: 63 P: -5 [place]: 187 QRS: -16 QRSD: 117 T: 30 [...] Fela Villegas NP CARDIAC ECG ORDERABL ES [facility] EKG from Last 3 Months Care Teams Ancient Art Curator Relationship Specialty Start Date End Date Farnaz Pineda MD [address] [place] [address] PCP - General 11/18/09 Fela Villegas NP [address] [place] [address] [phone] Ichthyologist Cardiovascular Disease 03/12/22
--- OUTSIDE RECORDS SUMMARY | 2024-06-06 12:30 | XMS_ITS | Encounter Summary ---
Author Organization [facility] [place] [address] Care Team Providers Care Superintendent Operating Name Role Phone Farnaz Pineda MD Primary Care Provider [phone] Encounter Details Date Type Department Care Team (Late st Contact Info) Description 10/31/2012 External Results [place] [id number] Provider, Scanning Social History Tobacco Use Types [...] filedocumented in this encounter Care Teams Superintendent Operating Relationship Specialty Start Date End Date Farnaz Pineda MD [address] [place] [address] PCP - General 10/26/12 documented as of this encounter
--- OUTSIDE RECORDS SUMMARY | 2024-06-06 12:30 | XMS_ITS | Referral Summary ---
Author Organization [facility] Address [address] [place] [address] Care Team Providers Care Origination Specialist Name Role Phone Farnaz Pineda MD Primary Care Provider [phone] Fela Villegas COOKY PACKER Unavailable [phone] Encounters Date Type Department Care Team Description 06/04/2024 Telephone [facility] [address] [place], [place] [id number] Felicia Taveras MBBS New/Evolving Symptoms 04/19/2024 Orders Only [facility] [address] [place] [address] Felicia Taveras MBBS HO (acute kidney injury) ([facility]) (Primary Dx) 04/17/2024 Telephone [facility] [address] [place] [address] Felicia Taveras MBBS DME (DME-NEBULIZER ORDER-ADAPTHEALTH) 04/16/2024 Orders Only [facility] [address] [place] [address] Felicia Taveras MBBS Bronchiectasis without complication ([facility]) (Primary Dx) 04/16/2024 9:35 EDT - 04/16/2024 9:37 EDT Hospital Encounter [facility] [address] [place] [address] Felicia Taversa MBBS ILD (interstitial lung disease) ([facility]) Discharge Disposition: Home or Self Care 04/05/2024 Prep for Procedure [facility] [address] [facility], [place] [address] Felicia Taveras MBBS ILD (interstitial lung disease) ([facility]) (Primary Dx) 04/04/2024 15:25 EDT Phlebotomy Only [facility] - Outpatient Phlebotomy Drawing [address] [place] [address] Lab, [facility] Phlebotomy Moderate persistent reactive airway disease without complication; Chronic cough; Abnormal CT of the chest; ILD (interstitial lung disease) ([facility]) 04/04/2024 14:00 EDT Office Visit [facility] [address] [place] [address] Felicia Taveras MBBS Moderate persistent reactive airway disease without complication (Primary Dx); Chronic cough; Abnormal CT of the chest; ILD (interstitial lung disease) ([facility]) 03/15/2024 E-Consult [facility] Pulmonology & Critical Care - [address] [id number] Diann Sol MD 03/15/2024 15:20 EDT Office Visit [facility] Cardiology - [address] [place] [address] Fela Villegas NP Paroxysmal atrial fibrillation ([facility]) (Primary Dx); Encounter for follow-up [...] 03/18/2025 14:00 EDT Ancillary Procedure [facility] Cardiology [address] [place] [address] 03/18/2025 14:40 EDT Office Visit [facility] Cardiology [address] [place], [place] [id number] Fela Villegas NP [address] [facility] [address] [place] [address] Medical Devices Implanted Type Area Death Claim Clerk Device Identifier Shelf Expiration Date Model / Serial / Lot Aortic Valve Replacement, Berry Filter Procedures Procedure Name Priority Date/Time Associated Diagnosis Comments ECG REPORT - SCANNED 04/17/2024 10:45 EDT MISCELLANEOUS TEST, JOHNSON Routine 04/16/2024 13:46 EDT EXPANDED RESPIRATORY VIRAL PANEL, PCR (DOES NOT INCLUDE INFLUENZA OR RSV) Routine 04/16/2024 13:45 EDT NON OUTSOLE SPLICER/FNA CYTOLOGY Routine 04/16/2024 13:42 EDT DIFFERENTIAL, LAVAGE [...] 11 :00 EDT ILD (interstitial lung disease) ([facility]) SSA/SSB PANEL Routine 04/04/2024 15:[address] of the chest ILD (interstitial lung disease) ([facility]) SCL 70 ANTIBODY, IGG, SERUM Routine 04/04/2024 15:[address] of the chest ILD (interstitial lung disease) ([facility]) ORDER ADMINISTRATOR ANTIBODY, IGG Routine 04/04/2024 15: [address] of the chest ILD (interstitial lung disease) ([facility]) CCP ANTIBODIES Routine 04/04/2024 15:[address] of the chest ILD (interstitial lung disease) ([facility]) ANTI NUCLEAR AB (OPAL), IFA Routine 04/04/2024 15:[address] of the chest ILD (interstitial lung disease) ([facility]) DOUBLE STRANDED DNA ANTIBODY, IGG Routine 04/04/2024 15:[address] of the chest ILD (interstitial lung disease) ([facility]) BASIC METABOLIC PANEL (BMP) Routine 04/04/2024 15:32 EDT Moderate persistent reactive airway disease without complication Chronic cough Abnormal CT of the chest ILD (interstitial lung disease) ([facility]) COMPLETE BLOOD COUNT AND DIFFERENTIAL Routine 04/04/2024 15:32 EDT Moderate persistent reactive airway disease without complication Chronic cough Abnormal CT of the chest ILD (interstitial lung disease) ([facility]) RHEUMATOID SCREEN/TITRE Routine 04/04/2024 15:[address] of the chest ILD (interstitial lung disease) ([facility]) ECG REPORT - SCANNED 03/18/2024 17:26 EDT EKG 12-LEAD Routine 03/15/2024 15:35 EDT Paroxysmal atrial fibrillation ([facility]) from Last 3 Months Results * ECG REPORT - SCANNED (04/17/2024 10:45 EDT) 04/17/2024 10:4 5 EDT Scan 2 Undercollar Baster PROCEDURE/MINOR MARCO A GICAL ORDERABLES * MISCELLANEOUS TEST, [place] (04/16/2024 13:46 EDT) Pathologist [facility] Miscellaneous Test, [place] SEE NOTE 04/17/2024 23:20 EDT [facility] Comment: Test ?Result ? Flag ??Unit ?? RefValue Aspergillus Ag, BAL ? <0.500 ? index ??<0.5 ? ADDITIONAL INFORMATION ?This is a qualitative test and the resulted index value is ?not indicative of disease severity. ??Serial testing is ?recommended for patients at high risk for invasive ?aspergillosis. ?This assay was performed using the FDA-cleared [facility] ?Platelia Aspergillus Galactomannan EIA. ?Test Performed by: ?[facility] ?[address] [place] [address] ?Automatic Riveting Machine Operator: Cherrie Fernandez Ph.D.; CLIA# [id number] Fluid STRUCTURE OF UPPER LOBE OF LEFT LUNG / Unknown 04/16/2024 13:46 EDT 04/16/2024 14:05 EDT Felicia DELEON CHEMI STRY & BLOOD GAS ORDERABLES [facility] [address] [place] [address] * EXPANDED RESPIRATORY VIRAL PANEL, PCR (DOES NOT INCLUDE INFLUENZA OR RSV) (04/16/2024 13:45 EDT) Paraflu Type 1 Rslt (PF1RES) Negative Negative 04/16/2024 23:50 EDT [facility] Paraflu Type 2 Rslt (PF2RES) Negative Negative 04/16/2024 23:50 EDT [facility] Paraflu Type 3 Rslt (PF3RES) Negative Negative 04/16/2024 23:50 EDT [facility] Paraflu Type 4 Rslt Negative Negative 04/16 23:50 EDT [facility] Rhinovirus RNA Rslt (RVRES) Negative Negative 04/16/2024 23:50 EDT [facility] Metapneumovirus RNA Rslt (HMVRES) Negative Negative 04/16/2024 23:50 EDT [facility] Adenovirus DNA Rslt (ADVRES) Negative Negative 04/16/2024 23:50 EDT [facility] BAL STRUCTURE OF UPPER LOBE OF LEFT LUNG / Unknown 04/16/2024 13:45 EDT 04/16/2024 14:07 EDT Narrative [facility] - 04/16/2024 23:50 EDT This test was developed and its performance characteristics by [facility]. It has not been cleared or approved [...] Felicia DELEON MICRO BIOLOGY - GENERAL ORDERABLES [facility] [address] [place] [address] * NON OUTSOLE SPLICER/FNA CYTOLOGY (04/16/2024 13:42 EDT) Note to Patient The following pathology results have been interpreted by your pathologist and may be available to you before your health provider has had the opportunity to review them. Please allow time for your provider to receive these results and explore management options, if applicable. 04/18/2024 14:57 T [facility] Final Diagnosis A. BRONCHOALVEOLAR LAVAGE, LEFT UPPER LOBE, ANTERIOR SEGMENT, CYTOLOGIC EVALUATION: - No malignant cells identified. - Occasional benign bronchial cells and abundant alveolar macrophages present. - Silver stain: Negative for fungal organisms. - Oil Red O stain: Less than 10% lipid-laden macrophages. 04/18/2024 14:57 EDT [facility] Attestation By the signature below, the attending physician certifies that they have personally conducted a gross and/or microscopic examination of the described specimens and rendered or confirmed the above diagnosis. 04/18/2024 14:57 [facility] at 1457 Clinical History 04/18/2024 14:57 [facility] Gross Description A. 25 mL of cloudy, pale pink fluid with red fragments were received and processed by selective cellular enhancement technique. 04/18/2024 14:57 [facility] Performing Lab [facility] 07/2024 14:57 [facility] Scanned Images 04/18/2024 14:57 [facility] BAL STRUCTURE OF UPPER LOBE OF LEFT LUNG / Unknown 04/16/2024 13:42 EDT 04/17/2024 10:56 EDT Felicia DELEON PATHO LOGY ORDERABLES [facility] [address] [place] [address] * DIFFERENTIAL, LAVAGE FLUID (04/16/2024 13:42 EDT) Neutrophils Fluid Relative 19 % 04/21/2024 12:48 T [facility] Lymphocytes Fluid Relative 24 % 04/21/2024 12:48 T [facility] Boyle/Macrophage 57 % 12:48 [facility] Path Review Fluid, other Reviewed by Dr Sandra Arnold 7.10.24. 04/21/2024 12:48 T [facility] BAL STRUCTURE OF UPPER LOBE OF LEFT LUNG / Unknown 04/16/2024 13:42 EDT 04/16/2024 14:08 EDT Narrative [facility] - 04/21/2024 12:48 EDT Bacteria present. Lining cells present. Felicia DELEON GEN L AB UNIT COLLECT ORDERABLES Performing Organization Address City/[facility]/ZIP Co de Phone Number [facility] [address] [place] [address] * (ABNORMAL) BACTERIAL CULTURE/SMEAR, RESPIRATORY (04/16/2024 13:42 EDT) Only the most recent of2 resultswithin the time period is included. Organism ID 10, 000 to 100,000 CFU/ml VITEK SUSCEPTIBILITY 04/18/2024 11:07 EDT [facility] Comment: Usual kayce-pharyngeal david Smear Neutrophils Present(A) 04/18/2024 11:07 EDT [facility] Comment:Corrected result: Pr eviously reported as Few Neutrophils Present on 04/16/2024 at 1558 EDT. Smear Squamous Epithelial Cells(A) 04/18/2024 11:07 EDT [facility] Comment:Corrected result: Pr eviously reported as Few Squamous Epithelial Cells on 04/16/2024 at 1558 EDT. Smear Gram Positive Cocci(A) 04/18/2024 11:07 EDT [facility] Comment:Corrected result: Pr eviously reported as Few Gram Positive Cocci on 04/16/2024 at 1558 EDT. Smear Respiratory epithelial cells absent(A) 04/18/2024 11:07 EDT [facility] Smear Mucus present(A) 04/18/2024 11:07 EDT [facility] Comment: Cytospin gram stain interpreted. KEELEY anterior segment - BAL BAL STRUCTURE OF UPPER LOBE OF LEFT LUNG / Unknown 04/16/2024 13:42 EDT 04/16/2024 14:08 EDT Felicia DELEON MICRO BIOLOGY - GENERAL ORDERABLES Performing Organization Address City/[facility]/ZIP Co de Phone Number [facility] [address] [place] [address] * FUNGUS CULTURE (04/16/2024 13:42 EDT) Only the most recent of2 resultswithin the time period is included. Organism ID Yeast isolated at 1st reading VITEK SUSCEPTIBILITY 05/14/2024 11:07 EDT [facility] Organism ID Yeast Not Cryptococcus or Dimorphic Fungi VITEK SUSCEPTIBILITY 05/14/2024 11:07 EDT [facility] BAL STRUCTURE OF UPPER LOBE OF LEFT LUNG / Unknown 04/16/2024 13:42 EDT 04/16/2024 14:08 EDT Felicia GOLDENBS MICRO BIOLOGY - GENERAL ORDERABLES [facility] [address] [place] [address] * ADULT BRONCHOSCOPY (04/16/2024 11:00 EDT) Anatomical [...] scanned media. Lidocaine 1% administered in a nbewz-xn-jdu-go fashion. ?? Endobronchial findings: There was significant [...] I personally spent 22 minutes in continuous omvn-ur-tbpq attendance with the patient during the administration [...] AM By Freddy Taveras Felicia DELEON GI AK OCEDURE ORDERABLES * RHEUMATOID SCREEN/TITRE (04/04/2024 15:32 EDT) Rheumatoid Factor <8.6 <12.0 IU/mL 04/04/2024 21:53 EDT [facility] Blood VENOUS BLOOD / Unknown Venipuncture / Unknown 04/04/2024 15:32 EDT 04/04/2024 16:26 EDT Felicia DELEON CHEMI STRY & BLOOD GAS ORDERABLES Performing Organization Address City/[facility] Co de Phone Number [facility] [address] [place] [address] * SSA/SSB PANEL (04/04/2024 15:32 EDT) Ro52 Anitbody, IgG <2.3 <20.0 CU 2023 11:35 EDT [facility] Comment:Results were obtaine d with the IpsumA Flash Ro52 chemiluminescent immunoassay. Values obtained with different manufacturers' assay methods must not be used interchangeably. Ro60 Antibody, IgG <7.0 <20.0 CU 2023 11:35 EDT [facility] Comment:Results were obtaine d with the IpsumA Flash Ro60 chemiluminescent immunoassay. Values obtained with different manufacturers' assay methods must not be used interchangeably. SSB Antibody, IgG <3.3 <20.0 CU 024 11:35 EDT [facility] Comment:Results were obtaine d with the IpsumA Flash SS-B chemiluminescent immunoassay. Values obtained with different manufacturers' assay methods must not be used interchangeably. Blood VENOUS BLOOD / Unknown Venipuncture / Unknown 04/04/2024 15:32 EDT 04/04/2024 16:26 EDT Felicia DELEON IMMUN OLOGY AND SEROLOGY ORDERABLES Performing Organization Address City/[facility]/ZIP Co de Phone Number [facility] [address] [place] [address] * CCP ANTIBODIES (04/04/2024 15:32 EDT) CCP Antibodies <2.5 <5.0 U/mL 04/05/2024 8:07 EDT [facility] Blood VENOUS BLOOD / Unknown Venipuncture / Unknown 04/04/2024 15:32 EDT 04/04/2024 16:26 EDT Felicia Taveras [facility] IMMUN OLOGY AND SEROLOGY ORDERABLES Performing Organization Address [facility] Co de Phone Number [facility] [address] [place] [address] * ORDER ADMINISTRATOR ANTIBODY, IGG (04/04/2024 15:32 EDT) ORDER ADMINISTRATOR Antibody, IgG <6.0 <20.0 CU 024 11:35 EDT [facility] Comment:Results were obtaine d with the IpsumA Flash ORDER ADMINISTRATOR chemilumenscent immunoassay. Values obtained with different manufacturers' assay methods may not be used interchangeably. Blood VENOUS BLOOD / Unknown Venipuncture / Unknown 04/04/2024 15:32 EDT 04/04/2024 16:26 EDT Felicia Taveras [facility] IMMUN OLOGY AND SEROLOGY ORDERABLES Performing Organization Address [facility] Co de Phone Number [facility] [address] [place] [id number] * SCL 70 ANTIBODY, IGG, SERUM (04/04/2024 15:32 EDT) Scl 70 Ab, IgG, S <0.2 <1.0 (Negative ) U 04/05/2024 17:04 EDT [facility] Comment: Test Performed by: [address] [address] Automatic Riveting Machine Operator: Cherrie Fernandez Ph.D.; CLIA# [id number] Blood VENOUS BLOOD / Unknown Venipuncture / Unknown 04/04/2024 15:32 EDT 04/04/2024 16:30 EDT Felicia Taveras [facility] IMMUN OLOGY AND SEROLOGY ORDERABLES [facility] [address] [place] [address] * DOUBLE STRANDED DNA ANTIBODY, IGG (04/04/2024 15:32 EDT) [facility] dsDNA Ab, IgG <22.0 <27.0 IU/mL 04/05/2024 11:35 EDT [facility] Comment: Negative: <27.0 IU/mL Indeterminate: 27.0 - 35.0 IU/mL Positive: >35.0 IU/mL Results were obtained with IpsumA Insightera dsDNA chemiluminescent immunoassay. Values obtained with different manufacturers' assay methods may not be used interchangeably. Blood VENOUS BLOOD / Unknown Venipuncture / Unknown 04/04/2024 15:32 EDT 04/04/2024 16:26 EDT Naborfreddyneftali Taveras [facility] IMMUN OLOGY AND SEROLOGY ORDERABLES [facility] [address] [place] [address] * (ABNORMAL) COMPLETE BLOOD COUNT AND DIFFERENTIAL (04/04/2024 15:32 EDT) [facility] WBC 8.87 4.00 - 10.40 K/cmm 04/04/2024 16:26 EDT [facility] RBC 4.25(L) 4.36 - 5.78 M/cmm 04/04/2024 16:26 [facility] Hemoglobin 13.2(L) 13.8 - 17.3 g/dL 04/04/2024 16:26 T [facility] HCT 42.2 39.5 - 50.2 % 04/04/2024 16:26 [facility] MCV 99(H) 81 - 95 fL 04/04/2024 16:26 [facility] MCH 31.1 27.6 - 33.0 pg 04/04/2024 16:26 [facility] MCHC 31.3(L) 32.8 - 36.4 g/dL 04/04/2024 16:26 [facility] RDW-CV 15.6(H) <14.2 % 04/04/2024 16:26 [facility] RDW-SD 56.7(H) <46.0 fl 04/04/2024 16:26 [facility] PLT 205 141 - 377 K/cmm 04/04/2024 16:26 [facility] MPV 10.0 9.5 - 12.7 fL 04/04/2024 16:26 [facility] % Neutrophils 71.5 % 04/04/2024 16:26 [facility] % Lymphocytes 13.4 % 04/04/2024 16:26 [facility] % Monocytes 7.2 % 04/04/2024 16:26 [facility] % Eosinophils 6.7 % 04/04/2024 16:26 [facility] % Basophils 0.9 % 04/04/2024 16:26 [facility] % Immature Grans 0.3 <0.9 % 04/04/20 16:26 [facility] Absolute Neutrophils 6.34 2.20 - 8.85 K/cmm 04/04/2024 16:26 [facility] Absolute Lymphocytes 1.19 1.09 - 3.30 K/cmm 04/04/2024 16:26 [facility] Absolute Monocytes 0.64 0.10 - 0.80 K/cmm 04/04/2024 16:26 [facility] Absolute Eosinophils 0.59 0.03 - 0.61 K/cmm 04/04/2024 16:26 [facility] ABS Basophils 0.08 0.01 - 0.11 K/cmm 04/04/2024 16:26 [facility] Absolute Immature Grans 0.03 0.00 - 0.06 K/cmm 04/04/2024 16:26 EDT [facility] Type of Differential: Auto 04/04/2024 16:26 EDT [facility] Blood VENOUS BLOOD / Unknown Venipuncture / Unknown 04/04/2024 15:32 EDT 04/04/2024 16:22 EDT Felicia DELEON PACKA GES & DNA PROBE ORDERABLES [facility] [address] [place] [address] * ANTI NUCLEAR AB (OPAL), IFA (04/04/2024 15:32 EDT) OPAL Interpretation Negative Negative 2023 14:28 EDT [facility] Comment:No titer performed, OPAL Screen is negative. Blood VENOUS BLOOD / Unknown Venipuncture / Unknown 04/04/2024 15:32 EDT 04/04/2024 16:26 EDT Narrative [facility] - 04/05/2024 14:28 EDT Results were obtained with the [employer] NOVA Lite HEp-2 OPAL Kit by indirect immunofluorescence. Felicia DELEON IMMUN OLOGY AND SEROLOGY ORDERABLES Performing Organization Address City/[facility]/ZIP Co de Phone Number [facility] [address] [place] [address] * (ABNORMAL) BASIC METABOLIC PANEL (BMP) (04/04/2024 15:32 EDT) Sodium 138 136 - 145 mmol/L 04/04/2024 17:01 EDT [facility] Potassium 4.7 3.5 - 5.0 mmol/L 04/04/2024 17:01 EDT [facility] Chloride 104 96 - 110 mmol/L 04/04/2024 17:01 EDT [facility] CO2 Total 27 22 - 32 mmol/L 04/04/2024 17:01 [facility] Anion Gap 7 5 - 14 mmol/L 04/04/2024 17:01 [facility] Glucose 74 70 - 99 mg/dl 04/04/2024 17:01 [facility] Calcium 9.1 8.5 - 10.5 mg/dL 04/04/2024 17:01 [facility] BUN 22 10 - 26 mg/dL 04/04/2024 17:01 [facility] Creatinine 1.38(H) 0.66 - 1.25 mg/dL 04/04/2024 17:01 [facility] eGFR 54(L) >60 mL/min/1.73 m2 04/04/2024 17:01 [facility] Blood VENOUS BLOOD / Unknown Venipuncture / Unknown 04/04/2024 15:32 EDT 04/04/2024 16:28 EDT Felicia DELEON CHEMI STRY & BLOOD GAS ORDERABLES [facility] [address] [place] [address] * ECG REPORT - SCANNED (03/18/2024 17:26 EDT) 03/18/2024 17:2 6 EDT Scan 2 Undercollar Baster PROCEDURE/MINOR MARCO A GICAL ORDERABLES * EKG 12-LEAD (03/15/2024 15:35 EDT) 03/15/2024 15:3 5 EDT Narrative [facility] EKG - 03/16/2024 11:42 EDT ? [facility] ? Test Date: ?2024-03-15 Pat Name: ? DILLAN AL ? Department: ?? [facility] ? Room: ? Gender: ? Male ? Thoracic Medicine Specialist: ?? [id number] : ?1950 ? Requested By: GIULIA GALLARDO A Order Number: [id number] ? Reading MD: ?? ALVARO WINGET MD ? Measurements Intervals ?[place] ? Rate: ? 63 ? P: ?-5 AK: ? 187 ?QRS: ?-16 QRSD: ? 117 [...] Center Test Date: 2024-03-15 Pat Name: DILLAN MIKAELA Department: [facility] Room: Gender: Male Thoracic Medicine Specialist: [id number] : 1950 Requested By: GIULIA Mccormick Order Number: [id number] Reading MD: ALVARO LECHUGA MD Measurements Intervals [place] Rate: 63 P: -5 AK: 187 QRS: -16 QRSD: 117 T: 30 [...] Fela Villegas NP CARDIAC ECG ORDERABL ES [facility] EKG from Last 3 Months Care Teams Origination Specialist Relationship Specialty Start Date End Date Farnaz Pineda MD [address] [place] [id number] PCP - General 11/18/09 Fela Villegas NP [address] [place] [phone] Manager [facility] 03/12/22
--- OUTSIDE RECORDS SUMMARY | 2024-06-06 12:30 | XMS_ITS | Encounter Summary ---
Author Organization [facility] [place] [address] Care Team Providers Care Meter Tester Polyphase Name Role Phone Farnaz Pineda MD Primary Care Provider [phone] Reason for Visit * Reason Comments Prostate Cancer Encounter Details Date Type Department Care Team (Late st Contact Info) Description 11/02/2012 9:50 AM EST Office Visit Hematology [place] [phone] Ross Madrid MD [facility] [address] Prostate cancer (Primary Dx) Discharge Disposition: Home [...] 4+4=8, 19% 1/1 core L mid - Telford 4+5=9, 10% 1/1 cores His DAVIAN has [...] a risk of micrometastatic disease given his Telford 9 diagnosis. I counseled the patient that [...] testing and communicate with his PCP and/or fresh foods technician regarding clearance and a bridging regimen for [...] PM EST Prostate cancer BASIC METABOLIC PANEL STAT 11/02/2012 1:45 PM EST Prostate cancer [...] (ABNORMAL) Differential, Automated (11/02/2012 1:45 PM EST) Neutrophil % 62.9 34.0 - 71.0 % CERNER MILLENNIUM Neutrophil Absolute 5.80 1.50 - 6.30 x10(3)/mc L CERNER MILLENNIUM Lymph % 17.2(L) 19.0 - 53.0 % CERNER MILLENNIUM Lymphocytes Abs 1.6 1.0 - 3.6 x10(3)/mc L CERNER MILLENNIUM Monocyte % 7.0 4.0 - 13.0 % CERNER MILLENNIUM Monocyte Abs 0.6 0.2 - 1.0 x10(3)/mc L CERNER MILLENNIUM Eos % 10.9(H) 0.0 - 7.0 % CERNER MILLENNIUM Eosinophils Abs 1.0(H) 0.0 - 0.5 x10(3)/mc L CERNER MILLENNIUM Basophil % 1.8 0.0 - 2.0 % CERNER MILLENNIUM Baso Absolute 0.2 0.0 - 0.2 x10(3)/mc L CERNER [...] Ross Madrid MD HEMATOLOGY ORDERABLE S CERNER MINNIEENNIUM * APTT (11/02/2012 1:45 PM EST) Partial Thromboplastin Time 35 25 - 35 sec CERNER MILLENNIUM Comment: Recommended therapeutic PTT range for full dose unfractionated heparin is 80-114 seconds. Blood specimen (specimen) 11/02/2012 1:45 PM EST 11/02/2012 1:50 PM EST Narrative Resulting Agency Comment Spec In Lab Ross Madrid MD HEMATOLOGY ORDERABLE S Performing Organization Address [facility] Phone Number [facility]ITALDAKSHA HARTMANRewardSnapIUM * (ABNORMAL) Prothrombin Time (11/02/2012 1:45 PM EST) Prothrombin Time 23.8(H) 11.9 - 14.7 sec CERNER MILLENNIUM Comment: [facility] Transfusion Committee Guidelines: INR less than 2.0, PTT less than OR equal to 43.5 seconds, or Fibrinogen greater than or equal to 100 mg/dl indicate adequate procoagulant activity for hemostasis in patients without underlying bleeding disorders. International Normalization Ratio 2.1(H) 0.9 - 1.1 CERNER MILLENNIUM Blood specimen (specimen) 11/02/2012 1:45 PM EST 11/02/2012 1:50 PM EST Narrative Resulting Agency Comment Spec In Lab Ross Madrid MD HEMATOLOGY ORDERABLE S Performing Organization Address [facility] Phone Number CERDAKSHA Redmere TechnologyIUM * (ABNORMAL) Basic Metabolic Panel (non-fasting) (11/02/2012 1:45 PM EST) Glucose 126 60 - 199 mg/dL CERNER MILLENNIUM Comment:Diabetes: >=200 mg/d L plus symptoms Blood Urea Nitrogen 19 10 - 20 mg/dL CERNER MILLENNIUM Creatinine 1.42 0.80 - 1.50 mg/dL CERNER MILLENNIUM Comment: Please note that the pediatric reference intervals supplied above were not validated at [facility]. Results from pediatric patients should [...] 101 98 - 107 mmol/L CERNER MILLENNIUM Carbon Dioxide 26 22 - 31 mmol/L CERNER MILLENNIUM Anion Gap 10 5 - 15 mmol/L CERNER MILLENNIUM Calcium 9.0 8.5 - 10.5 mg/dL CERNER MILLENNIUM Est Glomerular Filtration Rate 51(L) >=60 CERNER MILLENNIUM Comment: The National [...] Madrid MD CHEMISTRY ORDERABLES Performing Organization Address City/[facility]/ZIP Co de Phone Number CERDAKSHA MILLENNIUM * (ABNORMAL) CBC (with Diff) (11/02/2012 1:45 PM EST) White Blood Cell 9.2 4.0 - 10.0 x10(3)/mc L CERNER MILLENNIUM Red Blood Cell 5.29 4.63 - 6.08 x10(6)/mc L CERNER MILLENNIUM Hemoglobin 16.2 13.7 - 17.5 gm/dL CERNER MILLENNIUM Hematocrit 49.6 40.0 - 51.0 % CERNER MILLENNIUM Mean Cell Volume 93.8(H) 79.0 - 92.0 fL CERNER MILLENNIUM Mean Cell Hemoglobin 30.6 25.6 - 32.2 pg CERNER MILLENNIUM Mean Cell Hemoglobin Concentration 32.7 32.0 - 36.5 gm/dL CERNER MILLENNIUM Platelet 233 145 - 370 x10(3)/mc L CERNER MILLENNIUM RDW Standard Deviation 53.2(H) 35.0 - 46.0 fL CERNER MILLENNIUM RDW coefficient of variation 15.5(H) 10.9 - 14.4 % CERNER MILLENNIUM Mean Platelet Volume 10.1 9.0 - 12.0 fL CERNER MILLENNIUM Blood specimen (specimen) 11/02/2012 1:45 PM EST 11/02/2012 1:50 PM EST Narrative Resulting Agency Comment Spec In Lab Ross Madrid MD HEMATOLOGY ORDERABLE S Performing Organization Address City/[facility]/ZIP Co de Phone Number DANETTE AVLENCIA * EKG 12 Lead (11/02/2012 1:39 PM EST) Ventricular rate 77 BPM MUSE SYSTEM Atrial Rate 77 BPM MUSE SYSTEM P-R Interval 184 ms MUSE SYSTEM QRS Duration 102 ms MUSE SYSTEM Q-T Interval 360 ms MUSE SYSTEM QTC Calculated (Bezet) 407 ms MUSE SYSTEM Calculated P [place] 46 degrees MUSE SYSTEM Calculated R [place] 11 degrees MUSE SYSTEM Calculated T [place] 102 degrees MUSE SYSTEM INTERPRETATION Normal sinus rhythm Nonspecific T wave abnormality Abnormal ECG No previous ECGs available Confirmed by MD Georgie, Markus ([id number]) on 11/03/2012 5:26:29 PM MUSE SYSTEM 11/02/2012 1:39 PM EST 11/03/2012 5:26 PM EST Ross Madrid MD ECG ORDERABLES MUSE SYSTEM documented in this encounter Visit Diagnoses Diagnosis Prostate cancer- Primary Malignant neoplasm of prostate Prostate cancer Malignant neoplasm of prostate documented in this encounter Care Teams Meter Tester Polyphase Relationship Specialty Start Date End Date Farnaz Pineda MD [address] [place] [address] PCP - General 10/26/12 documented as of this encounter
--- OUTSIDE RECORDS SUMMARY | 2024-06-06 12:30 | XMS_ITS | Encounter Summary ---
Author Organization [facility] [place] [address] Care Team Providers Care Analyst Business Analysis Name Role Phone Farnaz Pineda MD Primary Care Provider [phone] Encounter Details Date Type Department Care Team (Latest Contact Info) Description 11/28/2012 11:20 AM EST [place] [phone] Ross Velazquez MD 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 ?? Findings Respiratory Care Specialist: Bowel gas pattern is unremarkable. ??Stool and [...] images were obtained in various orientations. Findings Respiratory Care Specialist: Bowel gas pattern is unremarkable. Stool and [...] were obtained in the for orientations. Findings Respiratory Care Specialist Pelvis: ?? No dilated loops of air-filled [...] were obtained in the for orientations. Findings Respiratory Care Specialist Pelvis: No dilated loops of air-filled small [...] (ABNORMAL) Prothrombin Time (11/28/2012 12:21 PM EST) Prothrombin Time 28.0(H) 11.9 - 14.7 sec DANETTE [email or web address] Comment: [facility] Transfusion Committee Guidelines: INR less than 2.0, PTT less than OR equal to 43.5 seconds, or Fibrinogen greater than or equal to 100 mg/dl indicate adequate procoagulant activity for hemostasis in patients without underlying bleeding disorders. International Normalization Ratio 2.6(H) 0.9 - 1.1 DANETTE [email or web address] Blood specimen (specimen) 11/28/2012 12:21 PM EST 11/28/2012 12:34 PM EST Narrative Resulting Agency Comment Spec In Lab Ross Velazquez MD HEMATOLOGY ORDERABLE S DANETTE [facility] documented in this encounter Visit Diagnoses Diagnosis H/O prostatectomy- Primary Other postprocedural status H/O prostatectomy Other postprocedural status documented in this encounter Care Teams Analyst Business Analysis Relationship Specialty Start Date End Date Farnaz Pineda MD [address] [place] [address] PCP - General 10/26/12 documented as of this encounter
--- OUTSIDE RECORDS SUMMARY | 2024-06-06 12:31 | XMS_ITS | Encounter Summary ---
Author Organization [facility] Address [address] [place] [address] Care Team Providers Care Life Insurance Sales Agent Name Role Phone Farnaz Pineda MD Primary Care Provider [phone] Encounter Details Date Type Department Care Team (Latest Contact Info) Description 10/01/2013 14:47 EST - 10/01/2013 23:59 EST Hospital Encounter [address] [address] Unknown, Provider, Discharge Disposition: Home or Self [...] Code Departure Means Destination Home or Self Shelter documented in this encounter Plan of Treatment Upcoming Encounters Date Type Department Care Team (Late st Contact Info) Description 03/18/2025 14:00 EDT Ancillary Procedure [facility] Cardiology - [address] [place], [place] [id number] 03/18/2025 14:40 EDT Office Visit [facility] Cardiology [address] [place] [address] Fela Villegas NP [address] [facility] [address] [place] [address] documented as of this encounter Visit Diagnoses Not on filedocumented in this encounter Care Teams Life Insurance Sales Agent Relationship Specialty Start Date End Date Farnaz Pineda MD [address] [place] [address] PCP - General 11/18/09 documented as of this encounter
--- OUTSIDE RECORDS SUMMARY | 2024-06-06 12:31 | XMS_ITS | Encounter Summary ---
Author Organization [facility] Address [address] [place] [address] Care Team Providers Care Scouring Train Operator Name Role Phone Farnaz Pineda MD Primary Care Provider [phone] Fela Villegas ELECTROMECHANICAL EQUIPMENT ASSEMBLER Unavailable [phone] Reason for Visit * Reason Onset Date Comments Coordination Of Care 04/07/2022 Encounter Details Date Type Department Care Team (Late st Contact Info) Description 04/07/2022 Telephone [facility] Cardiology - [address] [address] Fela Villegas NP 62 [facility] [address] [place] [address] Coordination Of Care Social History [...] Miscellaneous Notes * Telephone Encounter - Sasha aRm RN - 04/07/2022 1153 EDT Pt wanting to confirm that he needed an echo completed. I let him know he had an EKG completed at last [facility] but Elda does in fact want another echo completed. Pt is going to have echo completed at [facility].No further questions, no barriers to learning identified. [...] Info) Description 03/18/2025 14:00 EDT Ancillary Procedure [facility] Cardiology - [address] [address] 03/18/2025 14:40 EDT Office Visit [facility] Cardiology - [address] [place] [address] Fela Villegas NP [address] [place] [address] documented as of this encounter Visit Diagnoses Not on filedocumented in this encounter Care Teams Scouring Train Operator Relationship Specialty Start Date End Date Farnaz Pineda MD [address] [place] [address] PCP - General 11/18/09 Fela Villegas NP [address] [place] [phone] Software Implementation Specialist Cardiovascular Disease 03/12/22 documented as of this encounter
--- OUTSIDE RECORDS SUMMARY | 2024-06-06 12:31 | XMS_ITS | Encounter Summary ---
Author Organization [facility] Address [address] [place] [address] Care Team Providers Care Chargeback Analyst Name Role Phone Farnaz Pineda MD Primary Care Provider [phone] Reason for Visit * Reason Comments Other aortic valve disorde r Encounter Details Date Type Department Care Team (Late st Contact Info) Description 10/07/2017 10:15 EST Office Visit [facility] Cardiology - [address] [place], [place] [phone] Neo Madrid MD Aortic valve disorder (Primary [...] note has been dictated. * Neo Madrid MD - 10/07/2017 0000 EST [facility] CARDIOLOGY October 07, 2017 Farnaz Pineda MD [address] [place] [address] RE: DILLAN AL : [address] [...] by DVT. c. Complicated by sepsis. d. [place] filter. Current Meds: Aspirin 81 mg a [...] - Neo Madrid MD mn Dictation ID: [id number] cc: Farnaz Pineda MD, [address], [place] [address] documented in this encounter Plan of Treatment Upcoming Encounters Date Type Department Care Team (Late st Contact Info) Description 03/18/2025 14:00 EDT Ancillary Procedure [facility] Cardiology - [address] [place] [address] 03/18/2025 14:40 EDT Office Visit [address] [place] [address] Fela Villegas, PANKAJ 62 [facility] [address] [place] [phone] documented as of this encounter Visit Diagnoses Diagnosis Aortic valve disorder- Primary Aortic valve disorders documented in this encounter Care Teams Chargeback Analyst Relationship Specialty Start Date End Date Farnaz Pineda MD [address] [place] [address] PCP - General 11/18/09 documented as of this encounter
--- OUTSIDE RECORDS SUMMARY | 2024-06-06 12:31 | XMS_ITS | Encounter Summary ---
Author Organization [facility] Address [address] [place] [address] Care Team Providers Care Cistern Room Operator Name Role Phone Farnaz Pineda MD Primary Care Provider [phone] Encounter Details Date Type Department Care Team (Late st Contact Info) Description 10/01/2013 Results Only [facility] Laboratory Services - [facility] ([facility]) [address] [place], [place] [address] Bartolome [place] MD [address] [place], [place] [address] Social History Tobacco Use Types Packs/Day Years [...] 03/18/2025 14:00 EDT Ancillary Procedure [facility] Cardiology - [facility] [place] [address] [place] [address] 03/18/2025 14:40 EDT Office Visit [facility] Cardiology - [place] [address] [place] [address] Fela Villegas NP 62 [facility] [address] [place] [address] documented as of this encounter [...] ? DILLAN AL ? Accession #: ? [id number] ? : ? 1950 (Age: 63) ??M [...] ANTIBODY(CLONE)(BLOCK) :RESULT H PYLORI (RABBIT MONOCLONAL (SP48), [place]) (block B1 and C1): Negative NOTE: ??One [...] reagents' performance characteristics have been determined by [facility]. ??The positive and negative controls worked [...] MD PATHOLOGY ORDERABLES [facility] [address] [place] [address] documented in this encounter Visit Diagnoses Not on filedocumented in this encounter Care Teams Cistern Room Operator Relationship Specialty Start Date End Date Farnaz Pineda MD [address] [place] [address] PCP - General 11/18/09 documented as of this encounter
--- OUTSIDE RECORDS SUMMARY | 2024-06-06 12:31 | XMS_ITS | Encounter Summary ---
Author Organization [facility] Address [address] [place] [address] Care Team Providers Care Inverted Block Operator Name Role Phone Farnaz Pineda MD Primary Care Provider [phone] Reason for Referral * Cardiology (Routine) - Closed Specialty Diagnoses / Procedures [facility] Referred To Contact Cardiology Diagnoses H/O aortic valve replacement Procedures TRANSTHORACIC ECHO (TTE) COMPLETE Fela Villegas NP [address] [address] [facility] Cardiology [address] [place] [address] [place] [address] Referral ID Status Reason Start Date Expiration Date Visits Re quested Visits Authorized [id number] Closed 07/04/2020 1 1 Reason for Visit * Reason Comments Follow-up 1 YR FUR Encounter Details Date Type Department Care Team (Late st Contact Info) Description 07/04/2020 14:20 EDT Office Visit [facility] Cardiology - [facility] [place] [address] Fela Villegas NP [address] [address] H/O aortic valve replacement (Primary Dx) Social History Tobacco Use Types Packs/Day Years Used Date Smoking Tobacco: Former Cigarettes 1 - 1986 Smokeless Tobacco: Never Alcohol Use [...] in the [facility] cardiology clinic today for Aortic valve disease. [...] by DVT. c. Complicated by sepsis. d. [place] filter. CURRENT MEDICATIONS Current Outpatient Medications on [...] Info) Description 03/18/2025 14:00 EDT Ancillary Procedure [facility] Cardiology - [facility] [address] [facility] [place] [address] 03/18/2025 14:40 EDT Office Visit [facility] Cardiology - [facility] [address] [facility] [place] [address] Fela Villegas NP [address] [facility] [address] [place] [address] documented as of this encounter Procedures [...] color Doppler.The study was interpreted by [facility] Cardiology. Pertinent images and digital data are archived for permanent storage and are available for subsequent review. Scanning was performed from the apical, parasternal, subcostal and suprasternal acoustic windows. Overall the study quality was adequate. Images were obtained using cardiac ultrasound machine ProfitablyQ #19. Fela Villegas NP CARDIAC ECHO ORDERAB LES * ECG REPORT - SCANNED (07/09/2020 11:56 EDT) 07/09/2020 11:5 6 EDT Scan 2 Machine Staker PROCEDURE/MINOR MARCO A GICAL ORDERABLES * EKG 12-LEAD (07/04/2020 14:34 EDT) 07/04/2020 14:3 4 EDT Narrative [facility] EKG - 07/09/2020 11:44 EDT ? The ? Test Date: ?2020-07-04 Pat Name: ? DILLAN AL ? Department: ?? [facility] Card ? Room: ? Gender: ? Male ? Nickel Plater: ?? [id number] : ?1950 ? Requested By: GIULIA Mccormick Order Number: [id number] ?Reading : ?? BRENT MATA SA, MD ? Measurements Intervals ?[place] ? Rate: ? 70 ? P: ?8 WA: ? 180 ?QRS: ?26 QRSD: ? 109 [...] Brent Todd Sa, MD - 07/09/2020 The Test Date: 2020-07-04 Pat Name: DILLAN AL Department: [facility] [place] Room: Gender: Male Nickel Plater: [id number] : 1950 Requested By: GIULIA Mccormikc Order Number: [id number] Kwadwo MD: BRENT FOY Measurements Intervals [place] Rate: 70 P: 8 WA: 180 QRS: 26 QRSD: 109 T: 70 [...] Fela Villegas NP CARDIAC ECG ORDERABL ES [facility] EKG documented in this encounter Visit Diagnoses Diagnosis H/O aortic valve replacement- Primary Heart valve replaced by other means H/O aortic valve replacement Heart valve replaced by other means documented in this encounter Care Teams Inverted Block Operator Relationship Specialty Start Date End Date Farnaz Pineda MD [address] [place] [address] PCP - General 11/18/09 documented as of this encounter
--- OUTSIDE RECORDS SUMMARY | 2024-06-06 12:31 | XMS_ITS | Encounter Summary ---
Author Organization [facility] Address [address] [place] [address] Care Team Providers Care Commissioner Of Internal Revenue Name Role Phone Farnaz Pineda MD Primary Care Provider [phone] Fela Villegas PHARMACY AFFAIRS ASSISTANT Unavailable [phone] Reason for Visit * Cardiology (Routine/Next Available) - Receiving Office to Obtain Authorization Specialty Diagnoses / Procedures Referred By Berta tavera Referred To Contact Procedures OUTSIDE IMAGES FOR ARCHIVE - ECHO Unknown, Provider, Referral ID Status Reason Start Date Expiration Date Visits Requested Visits Authorized [id number] Receiving Office to Obtain Authorization 06/10/2022 1 1 Encounter Details Date Type Department Care Team (Latest Contact Info) Description 06/09/2022 - 06/09/2022 23:59 EDT Hospital Encounter [facility] Radiology - [place] [address] [place], [place] [address] Discharge Disposition: Home or Self Care Social [...] Info) Description 03/18/2025 14:00 EDT Ancillary Procedure [facility] Cardiology [address] [place], [place] [phone] 03/18/2025 14:40 EDT Office Visit [facility] Cardiology [facility] [address] [place], [place] [phone] Fela Villegas NP [address] [facility] [address] [place] [address] documented as of this encounter [...] on filedocumented in this encounter Care Teams Commissioner Of Internal Revenue Relationship Specialty Start Date End Date Farnaz Pineda MD [address] [place] [address] PCP - General 11/18/09 Fela Villegas NP [address] [place] [address] Carton Forming Machine Operator Cardiovascular Disease 03/12/22 documented as of this encounter
--- OUTSIDE RECORDS SUMMARY | 2024-06-06 12:31 | XMS_ITS | Encounter Summary ---
Author Organization [facility] Address [address] [place] [address] Care Team Providers Care Band Splicer Name Role Phone Farnaz Pineda MD Primary Care Provider [phone] Encounter Details Date Type Department Care Team (Late st Contact Info) Description 10/05/2012 Results Only [facility]- [facility] [phone] Kyler Vance MD [address] [address] Social History Tobacco Use Types [...] Info) Description 03/18/2025 14:00 EDT Ancillary Procedure [facility] Cardiology - [address] [place] [address] 03/18/2025 14:40 EDT Office Visit [facility] Cardiology - [facility] [place] [address] Fela Villegas NP 62 [facility] [address] [place] [address] documented as of this encounter [...] ? DILLAN AL ? Accession #: ? [id number] ? : ? 1950 (Age: 62) ??M [...] remaining) Shasha pattern: ??Grade 3. ??- Total Orlando score: ??6. - Number of cores positive/total number of cores: ??10/10. - 9% of prostatic tissue involved by tumor. - Perineural invasion: ??Not identified. ?? B. 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 ? - Histologic grade: ??- Primary (predominant) [place] pattern: ??Grade 3. ??- Secondary (worst remaining) [place] pattern: ??Grade 3. ??- Total [place] score: ??6. - Number of cores positive/total [...] ? - Histologic grade: ??- Primary (predominant) [place] pattern: ??Grade 4. ??- Secondary (worst remaining) [place] pattern: ??Grade 4. ??- Total [place] score: ??8. - Number of cores positive/total [...] pattern: ??Grade 4. ??- Secondary (worst remaining) [place] pattern: ??Grade 5. ??- Total Shasha score: ??9. - Number of cores positive/total number of cores: ??/. - 10% of prostatic tissue involved by tumor. - Perineural invasion: ??Not identified. ? K. ?? Prostate, left base, lateral, needle biopsy: ? 1. ?? Benign prostatic glands and stroma. L. ?? Prostate, left base, medial, needle biopsy: ? 1. ?? Benign prostatic glands and stroma. ?? Comment: ? Estimator Printing sections of this case were reviewed at [...] reagents' performance characteristics have been determined by [facility]. ??This laboratory is certified under the Clinical [...] ??The specimen is entirely submitted as (L). ??(Delvni [place])/[facility] End of Report [facility] 10/05/2012 21:2 7 EST 10/05/2012 21:27 EST Kyler Vance MD PATHOLOGY ORDERABLES [facility] [address] [place] [address] documented in this encounter Visit Diagnoses Not on filedocumented in this encounter Care Teams Band Splicer Relationship Specialty Start Date End Date Farnaz Pineda MD [address] [place] [address] PCP - General 11/18/09 documented as of this encounter
--- OUTSIDE RECORDS SUMMARY | 2024-06-06 12:31 | XMS_ITS | Encounter Summary ---
Author Organization [facility] Address [address] [place] [address] Care Team Providers Care Database Coordinator Name Role Phone Farnaz Pineda MD Primary Care Provider [phone] Reason for Visit * Reason Comments Other aortic valve replace ment Encounter Details Date Type Department Care Team (Late st Contact Info) Description 09/28/2012 10:45 EST Office Visit [facility] - [address] [place], [place] [phone] Neo Madrid MD Aortic valve disorders (Primary [...] 1950 September 28, 2012 Farnaz Pineda MD [address], [address] [place] [address] Pineda: I saw Mr Al [...] - CD Job ID: SM Doc ID: [id number] Ext Doc ID: [id number] cc: Farnaz Pineda MD * Neo Madrid MD - 09/28/2012 1104 EST This office note has been dictated. documented in this encounter Plan of Treatment Upcoming Encounters Date Type Department Care Team (Late st Contact Info) Description 03/18/2025 14:00 EDT Ancillary Procedure [facility] - [address] [place] [address] 03/18/2025 14:40 EDT Office Visit [facility] - [address] [place] [address] Fela Villegas NP [address] [facility] [address] [place] [address] documented as of this encounter Visit Diagnoses Diagnosis Aortic valve disorders- Primary documented in this encounter Historical Medications * This list may reflect changes made after this encounter. Medication Sig Dispensed Refills Start Date End Date levothyroxine (SYNTHROID) 50 mcg tablet Take 1 Tablet by mouth daily. added in this encounter Care Teams Database Coordinator Relationship Specialty Start Date End Date Farnaz Pineda MD [address] [place] [address] PCP - General 11/18/09 documented as of this encounter
--- OUTSIDE RECORDS SUMMARY | 2024-06-06 12:31 | XMS_ITS | Encounter Summary ---
Author Organization [facility] Address [address] [place] [address] Care Team Providers Care Visual Coordinator Name Role Phone Farnaz Pineda MD Primary Care Provider [phone] Encounter Details Date Type Department Care Team [...] Info) Description 03/18/2025 14:00 EDT Ancillary Procedure [facility] - [address] [place], [place] [phone] 03/18/2025 14:40 EDT Office Visit [facility] [place] [address] Fela Villegas, PANKAJ [address] [facility] [address] [place] [address] documented as of this encounter Visit Diagnoses Not on filedocumented in this encounter Care Teams Visual Coordinator Relationship Specialty Start Date End Date Farnaz Pineda MD [address] [place] [address] PCP - General 11/18/09 documented as of this encounter
--- OUTSIDE RECORDS SUMMARY | 2024-06-06 12:31 | XMS_ITS | Encounter Summary ---
Author Organization [facility] Address [address] [place] [address] Care Team Providers Care Nutrition Director Name Role Phone Farnaz Pineda MD Primary Care Provider [phone] Reason for Visit * Reason Comments Heart Problem Encounter Details Date Type Department Care Team (Late st Contact Info) Description 03/05/2021 15:00 EDT Office Visit [facility] Card[facility] - [address] [phone] Fela Villegas NP 62 [facility] [address] [place] [address] S/P AVR (Primary Dx) Social [...] this encounter Progress Notes * Fela Villegas, TREE SURGEON HELPER - 03/05/2021 1500 EDT DATE OF VISIT: 03/05/2021 CHIEF COMPLAINT: Aortic valve disease I had the pleasure of seeing Sylvain Rodgers in the [facility] cardiology clinic today for Aortic valve [...] by DVT. c. Complicated by sepsis. d. [place] filter. 4. Ascending aorta 4.4cm CURRENT MEDICATIONS [...] Info) Description 03/18/2025 14:00 EDT Ancillary Procedure [facility] - [address] [address] 03/18/2025 14:40 EDT Office Visit [facility] - [address] [place], [place] [phone] Fela Villegas NP [address] [facility] [address] [place] [phone] documented as of this encounter Visit Diagnoses Diagnosis S/P AVR- Primary Heart valve replaced by other means documented in this encounter Care Teams Nutrition Director Relationship Specialty Start Date End Date Farnaz Pineda MD [address] [place] [address] PCP - General 11/18/09 documented as of this encounter
--- OUTSIDE RECORDS SUMMARY | 2024-06-06 12:31 | XMS_ITS | Encounter Summary ---
Author Organization [facility] Address [address] [place] [address] Care Team Providers Care Technology Consultant Name Role Phone Farnaz Pineda MD Primary Care Provider [phone] Fela Villegas RIPSAWYER Unavailable [phone] Reason for Visit * Reason Onset Date Comments Appointment Related 03/19/2022 Encounter Details Date Type Department Care Team (Late st Contact Info) Description 03/19/2022 Telephone [facility] Cardiology - [address] [phone] Fela Villegas NP 62 [facility] [address] [place] [address] Appointment Related Social History Tobacco Use Types Packs/Day Years Used Date Smoking Tobacco: Former Cigarettes 0 - 1986 Smokeless Tobacco: Never Alcohol [...] [place] - 03/19/2022 1428 EDT Jessica from [facility] called for a AUTH for Transthoracic Echo. documented in this encounter Plan of Treatment Upcoming Encounters Date Type Department Care Team (Late st Contact Info) Description 03/18/2025 14:00 EDT Ancillary Procedure [facility] Cardiology - [address] [place] [address] 03/18/2025 14:40 EDT Office Visit [facility] Cardiology - [address] [place], [place] [phone] Fela Villegas NP [address] [place] [address] documented as of this encounter Visit Diagnoses Not on filedocumented in this encounter Care Teams Technology Consultant Relationship Specialty Start Date End Date Farnaz Pineda MD [address] [place] [address] PCP - General 11/18/09 Fela Villegas NP [address] [place] [address] Sand Control Worker Cardiovascular Disease 03/12/22 documented as of this encounter
--- OUTSIDE RECORDS SUMMARY | 2024-06-06 12:31 | XMS_ITS | Encounter Summary ---
Author Organization [facility] Address [address] [place] [address] Care Team Providers Care Spearer Name Role Phone Farnaz Pineda MD Primary Care Provider [phone] Reason for Referral * Cardiology (Routine/Next Available) - Closed Specialty Diagnoses / [facility] To Contact Diagnoses Abdominal aortic aneurysm (AAA) without rupture (HCC-CMS) Procedures TRANSTHORACIC ECHO (TTE) COMPLETE [place] ECHO HEART XTHORACIC,COMPLETE W DOPPLER Fela Villegas NP [address] [address] Referral ID Status Reason Start Date Expiration Date Visits Re quested Visits Authorized [id number] Closed 03/11/2022 10/09/2022 1 1 Reason for Visit * Reason Comments Heart Problem 1 yr fur aortic valv e disorder s/p AVR 2001 Encounter Details Date Type Department Care Team (Late st Contact Info) Description 03/11/2022 15:20 EDT Office Visit [facility] Cardiology - [address] [place] [address] Fela Villegas NP [address] [address] Paroxysmal atrial fibrillation (HCC-CMS) (HCC) [...] pleasure of seeing Dillan Al in the [facility] cardiology clinic today for Aortic valve [...] by DVT. c. Complicated by sepsis. d. [place] filter. 4. Ascending aorta 4.4cm CURRENT MEDICATIONS [...] Info) Description 03/18/2025 14:00 EDT Ancillary Procedure [facility] Cardiology [place] [address] [address] [place], [place] [phone] 03/18/2025 14:40 EDT Office Visit [facility] Cardiology [facility] [address] [place], [place] [phone] Fela Villegas NP 62 [facility] [address] [place] [address] Scheduled Orders Name Type Priority [...] EDT) 03/15/2022 14:5 9 EDT Scan 2 Turpentine Distiller PROCEDURE/MINOR MARCO A GICAL ORDERABLES * EKG 12-LEAD (03/11/2022 15:27 EDT) 03/11/2022 15:2 7 EDT Narrative [facility] EKG - 03/15/2022 14:55 EDT ? [facility] ? Test Date: ?2022-03-11 Pat Name: ? DILLAN AL ? Department: ?? [place] Card ? Room: ? Gender: ? Male ? Assembler Adjuster: ?? [id number] : ?1950 ? Requested By: GIULIA Mccormick Order Number: [id number] ? Reading MD: ?? ALVARO LECHUGA MD ? Measurements Intervals ?[place] ? Rate: ? 80 ? P: ?49 [place]: ? 180 ?QRS: ?80 QRSD: ? 116 [...] Note Alvaro Lechuga MD - 03/15/2022 [facility] Test Date: 2022-03-11 Pat Name: DILLAN AL Department: [address] [place] Room: Gender: Male Assembler Adjuster: [id number] : 1950 Requested By: GIULIA Mccormick Order Number: [id number] Reading MD: ALVARO LECHUGA MD Measurements Intervals [place] Rate: 80 P: 49 [place]: 180 QRS: 80 QRSD: 116 T: 30 QT: 363 QTc: 421 Interpretive Statements SINUS RHYTHM Compared to ECG 07/04/2020 14:34:35 Ventricular premature complex(es) no longer present I reviewed the tracing and have either agreed or edited the findings inthis report. Electronically Signed On 03-15-2022 14:55:35 EDT by ALVARO KNOTT. Fela Villegas NP CARDIAC ECG ORDERABL ES [facility] EKG documented in this encounter Visit Diagnoses Diagnosis Paroxysmal atrial fibrillation (HCC-CMS)- Primary Atrial fibrillation Abdominal aortic aneurysm (AAA) without rupture (HCC-CMS) documented in this encounter Care Teams Spearer Relationship Specialty Start Date End Date Farnaz Pineda MD [address] [place] [address] PCP - General 11/18/09 documented as of this encounter
--- OUTSIDE RECORDS SUMMARY | 2024-06-06 12:31 | XMS_ITS | Encounter Summary ---
Author Organization [facility] Address [address] [place] [address] Care Team Providers Care Embroiderer Name Role Phone Farnaz Pineda MD Primary Care Provider [phone] Fela Villegas CPR AMBULANCE DRIVER Unavailable [phone] Reason for Visit * Reason Onset Date Comments Appointment Related 03/17/2022 Encounter Details Date Type Department Care Team (Late st Contact Info) Description 03/17/2022 Telephone [facility] Cardiothoracic Surgery - [address] [phone] Anahi Munoz MD [address] [place] [address], [address] [place] [address] Appointment Related Social History Tobacco [...] patient will have a consultation with Dr Munoz. Patient confirmed that he would be attending these appointments. documented in this encounter Plan of Treatment Upcoming Encounters Date Type Department Care Team (Late st Contact Info) Description 03/18/2025 14:00 EDT Ancillary Procedure [facility] Cardiology - [address] [place], [place] [phone] 03/18/2025 14:40 EDT Office Visit [facility] Cardiology - [address] [place] [address] Fela Villegas NP [address] [address] documented as of this encounter Visit Diagnoses Not on filedocumented in this encounter Care Teams Embroiderer Relationship Specialty Start Date End Date Farnaz Pineda MD [address] [place] [address] PCP - General 11/18/09 Fela Villegas NP [address] [address] Bobbin Fixer Cardiovascular Disease 03/12/22 documented as of this encounter
--- OUTSIDE RECORDS SUMMARY | 2024-06-06 12:31 | XMS_ITS | Encounter Summary ---
Author Organization [facility] Address [address] [place] [address] Care Team Providers Care Hand Molder Meat Name Role Phone Farnaz Pineda MD Primary Care Provider [phone] Fela Villegas FACILITIES SPECIALIST Unavailable [phone] Reason for Referral * Referral (Routine/Next Available) - Receiving Office to Obtain Authorization Specialty Diagnoses / Procedures Referred By Berta tavera Referred To Contact Diagnoses ILD (interstitial lung disease) ([facility]) Procedures ADULT BRONCHOSCOPY Felicia Taveras MBBS [address] [address] [facility] Endoscopy [address] [place] [address] Referral ID Status Reason Start Date Expiration Date Visits Requested Visits Authorized [id number] Receiving Office to Obtain Authorization 04/05/2024 1 1 Reason for Visit * Referral (Routine/Next Available) - Receiving Office to Obtain Authorization Specialty Diagnoses / Procedures Referred By Berta tavera Referred To Contact Diagnoses ILD (interstitial lung disease) ([facility]) Procedures ADULT BRONCHOSCOPY Felicia Taveras MBBS [address] [address] [facility] Endoscopy [address] [place] [address] Referral ID Status Reason Start Date Expiration Date Visits Requested Visits Authorized [id number] Receiving Office to Obtain Authorization 04/05/2024 1 1 Encounter Details Date Type Department Care Team (Late st Contact Info) Description 04/16/2024 9:35 EDT - 04/16/2024 9:37 EDT Hospital Encounter [facility] Operating Room [address] [place] [address] Felicia Taveras MBBS 111 [facility] [address] [place] [address] ILD (interstitial lung disease) ([facility]) Discharge Disposition: Home or Self [...] sent through Care Everywhere. * Bronchoscopy: Post-op (Irish) documented in this encounter Medications at Time [...] - 04/16/2024 1100 EDT Date: 04/16/2024 Location: [facility] OR Name: Sylvain Rodgers, : 1950, Diagnosis [...] scanned media. Lidocaine 1% administered in a ruedi-sk-hhc-go fashion. 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 [...] I personally spent 22 minutes in continuous wouk-cv-ofvd attendance with the patient during the administration of the moderate sedation and supervised the moderate sedation services that were monitored by an independent trained observer (RN) who had no other duties during the procedure I performed the procedure PANCHO iVllanueva * Result Encounter Note - Felicia Taveras MBBS - 04/16/2024 0937 EDT A Blue Source message was sent to patient regarding recent [...] Info) Description 03/18/2025 14:00 EDT Ancillary Procedure [facility] Cardiology - [place] [address] 03/18/2025 14:40 EDT Office Visit [facility] Cardiology - [address] [place] [address] Fela Villegas NP [address] [place] [address] Pending Results Name Type Priority Associated Diagnoses Date /Time AFB CULTURE/SMEAR, OTHER Microbiology Routine 04/16/2024 13:41 EDT AFB CULTURE/SMEAR, OTHER Microbiology Routine 04/16/2024 13:42 EDT [facility] AFB CULTURE SMEAR Microbiology Today 0 04/16/2024 13:41 EDT [facility] AFB CULTURE SMEAR Microbiology Today 0 04/16/2024 13:42 EDT documented as of this encounter Procedures Procedure Name Priority Date/Time Associated Diagnosis Comments ECG REPORT - SCANNED 04/17/2024 10:45 EDT MISCELLANEOUS TEST, JOHNSON Routine 04/16/2024 13:46 EDT EXPANDED RESPIRATORY VIRAL PANEL, PCR (DOES NOT INCLUDE INFLUENZA OR RSV) Routine 04/16/2024 13:45 EDT [facility] AFB CULTURE SMEAR Today 04/16/2024 13:42 EDT NON SKILLS INSTRUCTOR/FNA CYTOLOGY Routine 04/16/2024 13:42 EDT AFB CULTURE/SMEAR, [...] 11 :00 EDT ILD (interstitial lung disease) ([facility]) documented in this encounter Results * ECG REPORT - SCANNED (04/17/2024 10:45 EDT) 04/17/2024 10:4 5 EDT Scan 2 Marine Engineer PROCEDURE/MINOR MARCO A GICAL ORDERABLES * MISCELLANEOUS TEST, MONTGOMERY (04/16/2024 13:46 EDT) Pathologist [facility] Miscellaneous Test, [place] SEE NOTE 04/17/2024 23:20 EDT [facility] Podcast Ready Comment: Test ?Result ? Flag ??Unit ?? RefValue Aspergillus Ag, BAL ? <0.500 ? index ??<0.5 ? ADDITIONAL INFORMATION ?This is a qualitative test and the resulted index value is ?not indicative of disease severity. ??Serial testing is ?recommended for patients at high risk for invasive ?aspergillosis. ?This assay was performed using the FDA-cleared [employer] ?Platelia Aspergillus Galactomannan EIA. ?Test Performed by: ?[facility] ?[address] [place] [address] ?Film Process Operator: Cherrie Fernandez Ph.D.; CLIA# [id number] Fluid STRUCTURE OF UPPER LOBE OF LEFT LUNG / Unknown 04/16/2024 13:46 EDT 04/16/2024 14:05 EDT Felicia DELEON CHEMI STRY & BLOOD GAS ORDERABLES [facility] [address] [place] [address] * EXPANDED RESPIRATORY VIRAL PANEL, PCR (DOES NOT INCLUDE INFLUENZA OR RSV) (04/16/2024 13:45 EDT) Paraflu Type 1 Rslt (PF1RES) Negative Negative 04/16/2024 23:50 EDT [facility] Paraflu Type 2 Rslt (PF2RES) Negative Negative 04/16/2024 23:50 EDT [facility] Paraflu Type 3 Rslt (PF3RES) Negative Negative 04/16/2024 23:50 EDT [facility] Paraflu Type 4 Rslt Negative Negative 04/16 23:50 EDT [facility] Rhinovirus RNA Rslt (RVRES) Negative Negative 04/16/2024 23:50 EDT [facility] Metapneumovirus RNA Rslt (HMVRES) Negative Negative 04/16/2024 23:50 EDT [facility] Adenovirus DNA Rslt (ADVRES) Negative Negative 04/16/2024 23:50 EDT [facility] BAL STRUCTURE OF UPPER LOBE OF LEFT LUNG / Unknown 04/16/2024 13:45 EDT 04/16/2024 14:07 EDT Narrative [facility] - 04/16/2024 23:50 EDT This test was developed and its performance characteristics by [facility]. It has not been cleared or [...] Felicia DELEON MICRO BIOLOGY - GENERAL ORDERABLES [facility] [address] [place] [address] * NON SKILLS INSTRUCTOR/FNA CYTOLOGY (04/16/2024 13:42 EDT) Note to Patient The following pathology results have been interpreted by your pathologist and may be available to you before your health provider has had the opportunity to review them. Please allow time for your provider to receive these results and explore management options, if applicable. 04/18/2024 14:57 [facility] Final Diagnosis A. BRONCHOALVEOLAR LAVAGE, LEFT UPPER LOBE, ANTERIOR SEGMENT, CYTOLOGIC EVALUATION: - No malignant cells identified. - Occasional benign bronchial cells and abundant alveolar macrophages present. - Silver stain: Negative for fungal organisms. - Oil Red O stain: Less than 10% lipid-laden macrophages. 04/18/2024 14:57 [facility] Attestation By the signature below, the attending physician certifies that they have personally conducted a gross and/or microscopic examination of the described specimens and rendered or confirmed the above diagnosis. 04/18/2024 14:57 [facility] at 1457 Clinical History 04/18/2024 14:57 [facility] Gross Description A. 25 mL of cloudy, pale pink fluid with red fragments were received and processed by selective cellular enhancement technique. 04/18/2024 14:57 [facility] Performing Lab [facility] 07/2024 14:57 [facility] Scanned Images 04/18/2024 14:57 [facility] BAL STRUCTURE OF UPPER LOBE OF LEFT LUNG / Unknown 04/16/2024 13:42 EDT 04/17/2024 10:56 EDT Felicia DELEON PATHO LOGY ORDERABLES Performing Organization Address [facility] Co de Phone Number [facility] [address] [place] [address] * DIFFERENTIAL, LAVAGE FLUID (04/16/2024 13:42 EDT) Neutrophils Fluid Relative 19 % 04/21/2024 12:48 EDT [facility] Lymphocytes Fluid Relative 24 % 04/21/2024 12:48 EDT [facility] [place]/Macrophage 57 % 12:48 EDT [facility] Path Review Fluid, other Reviewed by Dr Sandra Arnold 7.10.24. 04/21/2024 12:48 EDT [facility] BAL STRUCTURE OF UPPER LOBE OF LEFT LUNG / Unknown 04/16/2024 13:42 EDT 04/16/2024 14:08 EDT Narrative [facility] - 04/21/2024 12:48 EDT Bacteria present. Lining cells present. Felicia DELEON GEN L AB UNIT COLLECT ORDERABLES Performing Organization Address [facility] Co de Phone Number [facility] [address] [place] [address] * (ABNORMAL) BACTERIAL CULTURE/SMEAR, RESPIRATORY (04/16/2024 13:42 EDT) Organism ID 10, 000 to 100,000 CFU/ml VITEK SUSCEPTIBILITY 04/18/2024 11:07 EDT [facility] Comment: Usual kayce-pharyngeal david Smear Neutrophils Present(A) 04/18/2024 11:07 EDT [facility] Comment:Corrected result: Pr eviously reported as Few Neutrophils Present on 04/16/2024 at 1558 EDT. Smear Squamous Epithelial Cells(A) 04/18/2024 11:07 EDT [facility] Comment:Corrected result: Pr eviously reported as Few Squamous Epithelial Cells on 04/16/2024 at 1558 EDT. Smear Gram Positive Cocci(A) 04/18/2024 11:07 EDT [facility] Comment:Corrected result: Pr eviously reported as Few Gram Positive Cocci on 04/16/2024 at 1558 EDT. Smear Respiratory epithelial cells absent(A) 04/18/2024 11:07 EDT [facility] Smear Mucus present(A) 04/18/2024 11:07 EDT [facility] Comment: Cytospin gram stain interpreted. KEELEY anterior segment - BAL BAL STRUCTURE OF UPPER LOBE OF LEFT LUNG / Unknown 04/16/2024 13:42 EDT 04/16/2024 14:08 EDT Felicia Taveras [facility] MICRO BIOLOGY - GENERAL ORDERABLES Performing Organization Address [facility]/ZIP Co de Phone Number [facility] [address] [place] [address] * FUNGUS CULTURE (04/16/2024 13:42 EDT) Organism ID Yeast isolated at 1st reading VITEK SUSCEPTIBILITY 05/14/2024 11:07 EDT [facility] Organism ID Yeast Not Cryptococcus or Dimorphic Fungi VITEK SUSCEPTIBILITY 05/14/2024 11:07 EDT [facility] BAL STRUCTURE OF UPPER LOBE OF LEFT LUNG / Unknown 04/16/2024 13:42 EDT 04/16/2024 14:08 EDT Felicia Taveras [facility] MICRO BIOLOGY - GENERAL ORDERABLES Performing Organization Address [facility]/ZIP Co de Phone Number [facility] [address] [place] [address] * (ABNORMAL) BACTERIAL CULTURE/SMEAR, RESPIRATORY (04/16/2024 13:41 EDT) Organism ID Few Methicillin-Sens itive Staphylococcus aureus(A) VITEK SUSCEPTIBILITY 04/20/2024 7:49 EDT [facility] Comment:Few Usual kayce-pharyn geal david Smear Few Neutrophils Present(A) 04/20/2024 7:49 EDT [facility] Smear Few Squamous Epithelial Cells(A) 04/20/2024 7:49 EDT [facility] Smear Few Gram Positive Cocci(A) 04/20/2024 7:49 EDT [facility] Smear Mucus present(A) 04/20/20 7:49 EDT [facility] Smear Respiratory epithelial cells absent(A) 04/20/2024 7:49 EDT [facility] Comment:bronchial wash Wash SPECIMEN FROM LUNG OBTAINED BY BRONCHIAL WASHING PROCEDURE / Unknown 04/16/2024 13:41 EDT 04/16/2024 14:04 EDT [facility] - 04/20/2024 7:49 EDT [...] Felicia DELEON MICRO BIOLOGY - GENERAL ORDERABLES [facility] [address] [place] [address] * FUNGUS CULTURE (04/16/2024 13:41 EDT) Organism ID Yeast isolated at 1st reading VITEK SUSCEPTIBILITY 05/14/2024 11:07 EDT [facility] Organism ID Yeast Not Cryptococcus or Dimorphic Fungi VITEK SUSCEPTIBILITY 05/14/2024 11:07 EDT [facility] Wash SPECIMEN FROM LUNG OBTAINED BY BRONCHIAL WASHING PROCEDURE / Unknown 04/16/2024 13:41 EDT 04/16/2024 14:04 EDT Felicia DELEON MICRO BIOLOGY - GENERAL ORDERABLES [facility] [address] [place] [address] * ADULT BRONCHOSCOPY (04/16/2024 11:00 EDT) Anatomical [...] scanned media. Lidocaine 1% administered in a ecgfn-hy-qpq-go fashion. ?? Endobronchial findings: There was significant [...] I personally spent 22 minutes in continuous pwsx-cn-gvoc attendance with the patient during the administration [...] AM By Freddy Taveras Felicia DELEON GI UT OCEDURE ORDERABLES documented in this encounter Visit Diagnoses Diagnosis ILD (interstitial lung disease) ([facility]) Postinflammatory pulmonary fibrosis documented in [...] 04/16/2024 documented in this encounter Care Teams Hand Molder Meat Relationship Specialty Start Date End Date Farnaz Pineda MD [address] [place] [address] PCP - General 11/18/09 Fela Villegas NP [address] [place] [phone] Dry Mill Worker Cardiovascular Disease 03/12/22 documented as of this encounter
--- OUTSIDE RECORDS SUMMARY | 2024-06-06 12:31 | XMS_ITS | Encounter Summary ---
Author Organization [facility] Address [address] [place] [address] Care Team Providers Care Plate Furnace Operator Name Role Phone Farnaz Pineda MD Primary Care Provider [phone] Fela Villegas CLOUD SECURITY ARCHITECT Unavailable [phone] Encounter Details Date Type Department Care Team (Late st Contact Info) Description 03/15/2022 Orders Only [facility] Radiology - [facility] [address] [place], [place] [phone] Patrick Prado MD [address] [facility], [address] [place] [address] Social History Tobacco Use Types [...] Info) Description 03/18/2025 14:00 EDT Ancillary Procedure [facility] Cardiology - [facility] [place] [address] 03/18/2025 14:40 EDT Office Visit [facility] Cardiology - [facility] [place] [address] Fela Villegas, PANKAJ [address] [place] [phone] documented as of this encounter Visit Diagnoses Not on filedocumented in this encounter Care Teams Plate Furnace Operator Relationship Specialty Start Date End Date Farnaz Pineda MD [address] [place] [address] PCP - General 11/18/09 Fela Villegas, PANKAJ [address] [place] [phone] Percussion Teacher Cardiovascular Disease 03/12/22 documented as of this encounter
--- OUTSIDE RECORDS SUMMARY | 2024-06-06 12:31 | XMS_ITS | Encounter Summary ---
Author Organization [facility] Address [address] [place] [address] Care Team Providers Care Slot Machine Repairer Name Role Phone Unavailable Primary Care Provider Unavailabl e Encounter Details Date Type Department Care Team (Latest Contact Info) Description 03/03/2006 14:04 EDT Hospital Encounter [facility] conversion [address] [place] [address] Neo Madrid MD Discharge Disposition: Auto Discharge [...] Ancillary Procedure [facility] Card[facility] - [facility] [address] [place], [place] [phone] 03/18/2025 14:40 EDT Office Visit [facility] Card[facility] - [facility] [address] [place], [place] [phone] Fela Villegas NP [address] [facility] [address] [place] [address] documented as of this encounter Visit Diagnoses Not on filedocumented in this encounter
--- OUTSIDE RECORDS SUMMARY | 2024-06-06 12:31 | XMS_ITS | Encounter Summary ---
Author Organization [facility] Address [address] [place] [address] Care Team Providers Care Ict Trainer Name Role Phone Farnaz Pineda MD Primary Care Provider [phone] Reason for Visit * Reason Comments Irregular Heart Beat Encounter Details Date Type Department Care Team (Late st Contact Info) Description 05/17/2016 9:45 EDT Office Visit [facility] Cardiology - [address] [place] [address] Neo Madrid MD Aortic valve [...] Madrid MD - 05/17/2016 1021 EDT [facility] CARDIOLOGY May 17, 2016 Farnaz Pineda MD [facility] [address] [facility] [address] [place] [address] RE: DILLAN AL : [address] [...] a. Status post aortic valve replacement, [facility]. Marivn valve. 2. Reactive airway disease. 3. Prostate [...] - Neo Madrid MD mn Dictation ID: [id number] cc: Farnaz Pineda MD, [address], [address] [facility], [place] [address] * Neo Madrid MD - 05/17/2016 0957 EDT This office note has been dictated. documented in this encounter Plan of Treatment Upcoming Encounters Date Type Department Care Team (Late st Contact Info) Description 03/18/2025 14:00 EDT Ancillary Procedure [facility] Cardiology - [address] [address] 03/18/2025 14:40 EDT Office Visit [facility] Cardiology - [address] [phone] Fela Villegas NP [address] [facility] [address] [place] [phone] documented as of this encounter Visit Diagnoses Diagnosis Aortic valve disorder- Primary Aortic valve disorders documented in this encounter Care Teams Ict Trainer Relationship Specialty Start Date End Date Farnaz Pineda MD [address] [place] [address] PCP - General 11/18/09 documented as of this encounter
--- OUTSIDE RECORDS SUMMARY | 2024-06-06 12:31 | XMS_ITS | Encounter Summary ---
Author Organization [facility] Address [address] [place] [address] Care Team Providers Care Corporate Quality Engineer Name Role Phone Unavailable Primary Care Provider Unavailabl e Encounter Details Date Type Department Care Team (Latest Contact Info) Description 08/06/2002 9:36 EST - 08/06/2002 11:59 EST Hospital Encounter [facility] [address] [place] [address] Masoud Contreras MD Discharge Disposition: Auto Discharge Social History [...] 03/18/2025 14:00 EDT Ancillary Procedure [facility] Cardiology - [facility] [place] [address] 03/18/2025 14:40 EDT Office Visit [facility] Cardiology - [facility] [address] [place], [place] [phone] Fela Villegas NP [address] [facility] [address] [place] [address] documented as of this encounter [...]
--- OUTSIDE RECORDS SUMMARY | 2024-06-06 12:31 | XMS_ITS | Encounter Summary ---
Author Organization [facility] Address [address] [place] [address] Care Team Providers Care Missileman Name Role Phone Unavailable Primary Care Provider Unavailabl e Encounter Details Date Type Department Care Team (Late st Contact Info) Description 08/16/2002 14:48 EST Hospital Encounter [facility] conversion [address] [place] [address] Neo Madrdi MD Social History Tobacco Use Types Packs/Day [...] 03/18/2025 14:00 EDT Ancillary Procedure [facility] Cardiology - [facility] [place] [address] 03/18/2025 14:40 EDT Office Visit [facility] Cardiology - [place] [address] Fela Villegas NP [address] [phone] documented as of this encounter Visit Diagnoses Not on filedocumented in this encounter
--- OUTSIDE RECORDS SUMMARY | 2024-06-06 12:31 | XMS_ITS | Encounter Summary ---
Author Organization [facility] Address [address] [place] [address] Care Team Providers Care Television Cabinet Finisher Name Role Phone Farnaz Pineda MD Primary Care Provider [phone] Fela Villegas NUTRITION COUNSELOR Unavailable [phone] Reason for Referral * Cardiology (Routine/Next Available) - New Request Specialty Diagnoses / Procedures Referred By Berta tavera Referred To Contact Diagnoses Encounter for follow-up for aortic valve replacement Procedures TRANSTHORACIC ECHO (TTE) COMPLETE MT ECHO TTHRC R-T 2D W/WOM-MODE COMPL SPEC&COLR D Fela Villegas NP [address] [address] [facility] Referral ID Status Reason Start Date Expiration Date V isits Requested Visits Authorized [id number] New Request 03/15/2024 1 1 * (Routine/Next Available) - New Request Specialty Diagnoses / Procedures Referred By Contac t Referred To Contact Diagnoses Paroxysmal atrial fibrillation (HCC-CMS) Procedures AMB ECONSULT PULMONOLGY OTHER Fela Villegas NP [address] [employer] [address] [place] [phone] Referral ID Status Reason Start Date Expiration Date Visits Requested Visits Authorized [id number] New Request Specialty Services Required 03/15/2024 1 1 Reason for Visit * Reason Comments Heart Problem Encounter Details Date Type Department Care Team (Late st Contact Info) Description 03/15/2024 15:20 EDT Office Visit [facility] Cardiology - [facility] [address] [facility] [place], [place] [id number] Fela Villegas NP 62 [facility] [address] [place] [address] Paroxysmal atrial fibrillation (HCC-CMS) (Primary [...] pleasure of seeing Dillan Al in the [facility] cardiology clinic today for Aortic valve disease. [...] he saw his PCP and pulmonary at [facility], and CT scan was performed. No COPD [...] c. Complicated by sepsis. d. Berry filter. 4. Ascending aorta 4.4cm 5. Hypothyroidism 6. Gi bleeding , cauterized 2022 at [place] 7. Left lower lobe nodule CURRENT MEDICATIONS [...] of the following tests: Echo performed at [place] 2021: LVEF 55-60% AV functioning normally, mean [...] times Needs bronchoscopy scheduled-followed with pulmonary at [facility] 5) GI bleeding post cauterized, tolerating Coumadin PLAN: Echo for valve and ascending aorta-next year Cardiac CT scan for ascending aorta follow up Continue Coumadin, INR 2.5 to 3.5 Lipids are checked by PCP E consult to pulmonary-see scan from pulmonary at [facility]. I spent a total of 30 [...] Info) Description 03/18/2025 14:00 EDT Ancillary Procedure [facility] Cardiology - [address] [place], [place] [id number] 03/18/2025 14:40 EDT Office Visit [facility] Cardiology [address] [place] [address] Fela Villegas NP 62 [facility] [address] [place] [address] Scheduled Orders Name Type Priority [...] EDT) 03/18/2024 17:2 6 EDT Scan 2 Laster Hand PROCEDURE/MINOR MARCO A GICAL ORDERABLES * EKG 12-LEAD (03/15/2024 15:35 EDT) 03/15/2024 15:3 5 EDT Narrative [facility] EKG - 03/16/2024 11:42 EDT ? [facility] ? Test Date: ?2024-03-15 Pat Name: ? DILLAN AL ? Department: ?? Pierre Card ? Room: ? Gender: ? Male ? Utility Clerk: ?? [id number] : ?1950 ? Requested By: GIULIA Mccormick Order Number: [id number] ? Kwadwo NICHOLSON: ?? ALVARO LECHUGA MD ? Measurements Intervals ?[place] ? Rate: ? 63 ? P: ?-5 MT: ? 187 ?QRS: ?-16 QRSD: ? 117 [...] Note Alvaro Lechuga MD - 03/16/2024 [facility] Test Date: 2024-03-15 Pat Name: DILLAN AL Department: Pierre Isbell Room: Gender: Male Utility Clerk: [id number] : 1950 Requested By: GIULIA Mccormick Order Number: [id number] Reading MD: ALVARO LECHUGA MD Measurements Intervals [place] Rate: 63 P: -5 MT: 187 QRS: -16 QRSD: 117 T: 30 [...] Fela Villegas NP CARDIAC ECG ORDERABL ES [facility] EKG documented in this encounter Visit Diagnoses Diagnosis Paroxysmal atrial fibrillation ([facility])- Primary Atrial fibrillation Encounter for follow-up for [...] 03/15/2024 documented in this encounter Care Teams Television Cabinet Finisher Relationship Specialty Start Date End Date Farnaz Pineda MD [address] [place] [address] PCP - General 11/18/09 Fela Villegas NP [address] [address] Warehouse Helper Cardiovascular Disease 03/12/22 documented as of this encounter
--- OUTSIDE RECORDS SUMMARY | 2024-06-06 12:31 | XMS_ITS | Encounter Summary ---
Author Organization [facility] Address [address] [place] [address] Care Team Providers Care Resident Services Manager Name Role Phone Farnaz Pineda MD Primary Care Provider [phone] Fela Villegas CONSULTING SME Unavailable [phone] Encounter Details Date Type Department Care Team (Late st Contact Info) Description 04/04/2024 15:25 EDT Phlebotomy Only [facility] - Outpatient Phlebotomy Drawing [address] [place] [address] Lab, [facility] Op Phlebotomy Moderate persistent reactive airway disease without complication; Chronic cough; Abnormal CT of the chest; ILD (interstitial lung disease) ([facility]) Social History Tobacco Use Types Packs/Day Years [...] 03/18/2025 14:00 EDT Ancillary Procedure [facility] Cardiology - [address] [place] [address] 03/18/2025 14:40 EDT Office Visit [facility] Cardiology [address] [place], [place] [phone] Fela Villegas NP 62 [facility] [address] [place] [address] documented as of this encounter Procedures Procedure Name Priority Date/Time Associated Diagnosis Comments SSA/SSB PANEL Routine 04/04/2024 15:[address] of the chest ILD (interstitial lung disease) ([facility]) CCP ANTIBODIES Routine 04/04/2024 15:[address] of the chest ILD (interstitial lung disease) ([facility]) BELT SPLICER ANTIBODY, IGG Routine 04/04/2024 15: [address] of the chest ILD (interstitial lung disease) ([facility]) SCL 70 ANTIBODY, IGG, SERUM Routine 04/04/2024 15:[address] of the chest ILD (interstitial lung disease) ([facility]) DOUBLE STRANDED DNA ANTIBODY, IGG Routine 04/04/2024 15:[address] of the chest ILD (interstitial lung disease) ([facility]) COMPLETE BLOOD COUNT AND DIFFERENTIAL Routine 04/04/2024 15:32 EDT Moderate persistent reactive airway disease without complication Chronic cough Abnormal CT of the chest ILD (interstitial lung disease) ([facility]) ANTI NUCLEAR AB (OPAL), IFA Routine 04/04/2024 15:[address] of the chest ILD (interstitial lung disease) ([facility]) BASIC METABOLIC PANEL (BMP) Routine 04/04/2024 15:32 EDT Moderate persistent reactive airway disease without complication Chronic cough Abnormal CT of the chest ILD (interstitial lung disease) ([facility]) documented in this encounter Results * SSA/SSB PANEL (04/04/2024 15:32 EDT) Ro52 Anitbody, IgG <2.3 <20.0 CU 2023 11:35 EDT [facility] Comment:Results were obtaine d with the uBiomeA Flash Ro52 chemiluminescent immunoassay. Values obtained with different manufacturers' assay methods must not be used interchangeably. Ro60 Antibody, IgG <7.0 <20.0 CU 2023 11:35 EDT [facility] Comment:Results were obtaine d with the uBiomeA Flash Ro60 chemiluminescent immunoassay. Values obtained with different manufacturers' assay methods must not be used interchangeably. SSB Antibody, IgG <3.3 <20.0 CU 024 11:35 EDT [facility] Comment:Results were obtaine d with the uBiomeA Flash SS-B chemiluminescent immunoassay. Values obtained with different manufacturers' assay methods must not be used interchangeably. Blood VENOUS BLOOD / Unknown Venipuncture / Unknown 04/04/2024 15:32 EDT 04/04/2024 16:26 EDT Felicia Taveras [facility] IMMUN OLOGY AND SEROLOGY ORDERABLES [facility] [address] [place] [address] * SCL 70 ANTIBODY, IGG, SERUM (04/04/2024 15:32 EDT) Scl 70 Ab, IgG, S <0.2 <1.0 (Negative ) U 04/05/2024 17:04 EDT [facility] Comment: Test Performed by: [facility] [address] [place] [id number] [employer]: Cherrie Fernandez Ph.D.; CLIA# [id number] Blood VENOUS BLOOD / Unknown Venipuncture / Unknown 04/04/2024 15:32 EDT 04/04/2024 16:30 EDT Felicia Taveras [facility] IMMUN OLOGY AND SEROLOGY ORDERABLES Performing Organization Address City/[facility]/ZIP Co de Phone Number [facility] [address] [place] [address] * BELT SPLICER ANTIBODY, IGG (04/04/2024 15:32 EDT) BELT SPLICER Antibody, IgG <6.0 <20.0 CU 024 11:35 EDT [facility] Comment:Results were obtaine d with the Wavesat QUANTA Flash BELT SPLICER chemilumenscent immunoassay. Values obtained with different manufacturers' assay methods may not be used interchangeably. Blood VENOUS BLOOD / Unknown Venipuncture / Unknown 04/04/2024 15:32 EDT 04/04/2024 16:26 EDT Felicia Taveras [facility] IMMUN OLOGY AND SEROLOGY ORDERABLES [facility] [address] [place] [address] * CCP ANTIBODIES (04/04/2024 15:32 EDT) [facility] CCP Antibodies <2.5 <5.0 U/mL 04/05/2024 8:07 EDT [facility] Blood VENOUS BLOOD / Unknown Venipuncture / Unknown 04/04/2024 15:32 EDT 04/04/2024 16:26 EDT Felicia Taveras [facility] IMMUN OLOGY AND SEROLOGY ORDERABLES Performing Organization Address [facility] Co de Phone Number [facility] [address] [place] [id number] * ANTI NUCLEAR AB (OPAL), IFA (04/04/2024 15:32 EDT) [facility] OPAL Interpretation Negative Negative 2023 14:28 EDT [facility] Comment:No titer performed, OPAL Screen is negative. Blood VENOUS BLOOD / Unknown Venipuncture / Unknown 04/04/2024 15:32 EDT 04/04/2024 16:26 EDT Narrative [facility] - 04/05/2024 14:28 EDT Results were obtained with the EXO5fen NOVA Lite HEp-2 OPAL Kit by indirect immunofluorescence. Felicia GOLDEN IMMUN OLOGY AND SEROLOGY ORDERABLES Performing Organization Address [facility]/ZIP Co de Phone Number [facility] [address] [place] [phone] * DOUBLE STRANDED DNA ANTIBODY, IGG (04/04/2024 15:32 EDT) [facility] dsDNA Ab, IgG <22.0 <27.0 IU/mL 04/05/2024 11:35 EDT [facility] Comment: Negative: <27.0 IU/mL Indeterminate: 27.0 - 35.0 IU/mL Positive: >35.0 IU/mL Results were obtained with uBiomeA Flash dsDNA chemiluminescent immunoassay. Values obtained with different manufacturers' assay methods may not be used interchangeably. Blood VENOUS BLOOD / Unknown Venipuncture / Unknown 04/04/2024 15:32 EDT 04/04/2024 16:26 EDT Felicia DELEON IMMUN OLOGY AND SEROLOGY ORDERABLES [facility] [address] [place] [address] * (ABNORMAL) BASIC METABOLIC PANEL (BMP) (04/04/2024 15:32 EDT) Sodium 138 136 - 145 mmol/L 04/04/2024 17:01 [facility] Potassium 4.7 3.5 - 5.0 mmol/L 04/04/2024 17:01 [facility] Chloride 104 96 - 110 mmol/L 04/04/2024 17:01 [facility] CO2 Total 27 22 - 32 mmol/L 04/04/2024 17:01 [facility] Anion Gap 7 5 - 14 mmol/L 04/04/2024 17:01 [facility] Glucose 74 70 - 99 mg/dl 04/04/2024 17:01 [facility] Calcium 9.1 8.5 - 10.5 mg/dL 04/04/2024 17:01 [facility] BUN 22 10 - 26 mg/dL 04/04/2024 17:01 [facility] Creatinine 1.38(H) 0.66 - 1.25 mg/dL 04/04/2024 17:01 [facility] eGFR 54(L) >60 mL/min/1.73 m2 04/04/2024 17:01 [facility] Blood VENOUS BLOOD / Unknown Venipuncture / Unknown 04/04/2024 15:32 EDT 04/04/2024 16:28 EDT Felicia DELEON CHEMI STRY & BLOOD GAS ORDERABLES [facility] [address] [place] [address] * (ABNORMAL) COMPLETE BLOOD COUNT AND DIFFERENTIAL (04/04/2024 15:32 EDT) WBC 8.87 4.00 - 10.40 K/cmm 04/04/2024 16:26 [facility] RBC 4.25(L) 4.36 - 5.78 M/cmm 04/04/2024 16:26 [facility] Hemoglobin 13.2(L) 13.8 - 17.3 g/dL 04/04/2024 16:26 [facility] HCT 42.2 39.5 - 50.2 % 04/04/2024 16:26 [facility] MCV 99(H) 81 - 95 fL 04/04/2024 16:26 [facility] MCH 31.1 27.6 - 33.0 pg 04/04/2024 16:26 [facility] MCHC 31.3(L) 32.8 - 36.4 g/dL 04/04/2024 16:26 [facility] RDW-CV 15.6(H) <14.2 % 04/04/2024 16:26 [facility] RDW-SD 56.7(H) <46.0 fl 04/04/2024 16:26 [facility] PLT 205 141 - 377 K/cmm 04/04/2024 16:26 [facility] MPV 10.0 9.5 - 12.7 fL 04/04/2024 16:26 [facility] % Neutrophils 71.5 % 04/04/2024 16:26 [facility] % Lymphocytes 13.4 % 04/04/2024 16:26 [facility] % Monocytes 7.2 % 04/04/2024 16:26 [facility] % Eosinophils 6.7 % 04/04/2024 16:26 [facility] % Basophils 0.9 % 04/04/2024 16:26 [facility] % Immature Grans 0.3 <0.9 % 04/04/20 16:26 [facility] Absolute Neutrophils 6.34 2.20 - 8.85 K/cmm 04/04/2024 16:26 [facility] Absolute Lymphocytes 1.19 1.09 - 3.30 K/cmm 04/04/2024 16:26 [facility] Absolute Monocytes 0.64 0.10 - 0.80 K/cmm 04/04/2024 16:26 [facility] Absolute Eosinophils 0.59 0.03 - 0.61 K/cmm 04/04/2024 16:26 [facility] ABS Basophils 0.08 0.01 - 0.11 K/cmm 04/04/2024 16:26 [facility] Absolute Immature Grans 0.03 0.00 - 0.06 K/cmm 04/04/2024 16:26 [facility] Type of Differential: Auto 04/04/2024 16:26 [facility] Blood VENOUS BLOOD / Unknown Venipuncture / Unknown 04/04/2024 15:32 EDT 04/04/2024 16:22 EDT Felicia NERI GES & DNA PROBE ORDERABLES [facility] [address] [place] [phone] documented in this encounter Visit Diagnoses Diagnosis Moderate persistent reactive airway disease without complication Chronic cough Cough Abnormal CT of the chest Nonspecific (abnormal) findings on radiological and other examination of other intrathoracic organs ILD (interstitial lung disease) ([facility]) Postinflammatory pulmonary fibrosis documented in this encounter Care Teams Resident Services Manager Relationship Specialty Start Date End Date Farnaz Pineda MD [address] [place] [address] PCP - General 11/18/09 Fela Villegas NP [address] [place] [phone] [employer] Cardiovascular Disease 03/12/22 documented as of this encounter
--- OUTSIDE RECORDS SUMMARY | 2024-06-06 12:31 | XMS_ITS | Encounter Summary ---
Author Organization [facility] Address [address] [place] [address] Care Team Providers Care Aging Room Hand Name Role Phone Farnaz Pineda MD Primary Care Provider [phone] Reason for Visit * Reason Comments Other AV replacement Encounter Details Date Type Department Care Team (Late st Contact Info) Description 08/28/2013 10:00 EST Office Visit [facility] Cardiology - [address] [place] [address] Neo Madrid MD Aortic valve [...] Neo Madrid MD - 08/28/2013 1252 EST [facility] DIVISION OF CARDIOLOGY August 28, 2013 Farnaz Pineda MD [address] [place] [address] RE: DILLAN AL : [address] [...] that point, they decided to put a [place] filter in. Subsequent to that, he developed [...] of DVT. c. Complication of sepsis. d. [place] filter. Current Medications: Aspirin 81 mg a [...] - Neo Madrid MD ln Dictation ID: [id number] cc: Farnaz Pineda MD, [address], [address] [address] * Neo Madrid MD - 08/28/2013 1053 EST This office note has been dictated. documented in this encounter Plan of Treatment Upcoming Encounters Date Type Department Care Team (Late st Contact Info) Description 03/18/2025 14:00 EDT Ancillary Procedure [facility] Cardiology - [address] [place] [address] 03/18/2025 14:40 EDT Office Visit [facility] Cardiology - [address] [place] [address] Fela Villegas, PANKAJ [address] [facility] [address] [place] [address] documented as of this encounter Visit Diagnoses Diagnosis Aortic valve disorders- Primary documented in this encounter Historical Medications * This list may reflect changes made after this encounter. Medication Sig Dispensed Refills Start Date End Date venlafaxine (EFFEXOR) 75 mg tablet Take 1 Tablet by mouth daily. added in this encounter Care Teams Aging Room Hand Relationship Specialty Start Date End Date Farnaz Pineda MD [address] [place] [address] PCP - General 11/18/09 documented as of this encounter
--- OUTSIDE RECORDS SUMMARY | 2024-06-06 12:31 | XMS_ITS | Encounter Summary ---
Author Organization [facility] Address [address] [place] [address] Care Team Providers Care Advertising Designer Name Role Phone Unavailable Primary Care Provider Unavailabl e Encounter Details Date Type Department Care Team (Late st Contact Info) Description 03/01/2005 14:15 EDT Hospital Encounter [facility] [address] [place] [address] Neo Madrid MD Social History Tobacco Use [...] Ancillary Procedure [facility] Cardiology - [facility] [place] [address] [place] [address] 03/18/2025 14:40 EDT Office Visit [facility] Cardiology - [facility] [place] [place] [address] Fela Villegas NP [address] [address] documented as of this encounter Visit Diagnoses Not on filedocumented in this encounter
--- OUTSIDE RECORDS SUMMARY | 2024-06-06 12:31 | XMS_ITS | Encounter Summary ---
Author Organization [facility] Address [address] [place] [address] Care Team Providers Care Parliamentary Archivist Name Role Phone Farnaz Pineda MD Primary Care Provider [phone] Fela Villegas CHICK ROOM SUPERVISOR Unavailable [phone] Reason for Referral * Referral (Routine/Next Available) - Receiving Office to Obtain Authorization Specialty Diagnoses / Procedures Referred By Berta tavera Referred To Contact Diagnoses ILD (interstitial lung disease) ([facility]) Procedures ADULT BRONCHOSCOPY Felicia Taveras MBBS [address] [address] [facility] Endoscopy [address] [place] [phone] Referral ID Status Reason Start Date Expiration Date Visits Requested Visits Authorized [id number] Receiving Office to Obtain Authorization 04/05/2024 1 1 Encounter Details Date Type Department Care Team (Late st Contact Info) Description 04/05/2024 Prep for Procedure [facility] Pulmonology [address] [place] [address] Felicia Taveras MBBS [address] [address] ILD (interstitial lung disease) ([facility]) (Primary Dx) Social History Tobacco Use Types [...] Info) Description 03/18/2025 14:00 EDT Ancillary Procedure [facility] Cardiology - [facility] [place] [address] 03/18/2025 14:40 EDT Office Visit [facility] Cardiology - [facility] [place] [address] Fela Villegas NP [address] [facility] [address] [place] [address] documented as of this encounter [...] scanned media. Lidocaine 1% administered in a [id number]-[id number]-go fashion. ?? Endobronchial findings: There was significant [...] I personally spent 22 minutes in continuous [id number] attendance with the patient during the administration [...] AM By Freddy Taveras Felicia DELEON GI SD OCEDURE ORDERABLES documented in this encounter Visit Diagnoses Diagnosis ILD (interstitial lung disease) (HCC-CMS)- Primary Postinflammatory pulmonary fibrosis ILD (interstitial lung disease) (HCC-CMS) Postinflammatory pulmonary fibrosis documented in this encounter Care Teams Parliamentary Archivist Relationship Specialty Start Date End Date Farnaz Pineda MD [address] [place] [address] PCP - General 11/18/09 Fela Villegas NP [address] [address] Nursing Instructor Cardiovascular Disease 03/12/22 documented as of this encounter
--- OUTSIDE RECORDS SUMMARY | 2024-06-06 12:31 | XMS_ITS | Encounter Summary ---
Author Organization [facility] Address [address] [place] [address] Care Team Providers Care Trimming Operator Name Role Phone Farnaz Pineda MD Primary Care Provider Encounter Details Date Type Department Care Team (Late st Contact Info) Description 03/27/2010 Abstract [facility] Cardiology - [facility] [place] [address] Farnaz Pineda MD [address] [place] [address] Social History Tobacco Use Types Packs/Day Years [...] 03/18/2025 14:00 EDT Ancillary Procedure [facility] Cardiology [facility] [address] [place], [place] [id number] 03/18/2025 14:40 EDT Office Visit [facility] Cardiology [facility] [place] [address] Fela Villegas NP [address] [facility] [address] [place] [address] documented as of this encounter [...] 07/03/2019 added in this encounter Care Teams Trimming Operator Relationship Specialty Start Date End Date Farnaz Pineda MD [address] [place] [address] PCP - General 11/18/09 documented as of this encounter
--- OUTSIDE RECORDS SUMMARY | 2024-06-06 12:31 | XMS_ITS | Encounter Summary ---
Author Organization [facility] Address [address] [place] [address] Care Team Providers Care Mounter Automatic Name Role Phone Farnaz Pineda MD Primary Care Provider [phone] Fela Villegas BEATER TENDER Unavailable [phone] Encounter Details Date Type Department Care Team (Late st Contact Info) Description 03/15/2024 E-Consult [facility] Pulmonology & Critical Care - [facility] [address] [place], [place] [address] Diann Sol MD [address] [place] [address], [address] [place] [address] Social History Tobacco Use Types [...] been referred for an in-person consultation at [facility]. That is an appropriate plan. I have reached out to [facility] to follow up about scheduling for the patient. Patient consent for this eConsult was obtained by the referring provider. Please alert me if you have further questions. documented in this encounter Plan of Treatment Upcoming Encounters Date Type Department Care Team (Late st Contact Info) Description 03/18/2025 14:00 EDT Ancillary Procedure [facility] Cardiology - [address] [place], [place] [phone] 03/18/2025 14:40 EDT Office Visit [facility] Cardiology - [address] [place] [address] Fela Villegas NP [address] [address] documented as of this encounter Visit Diagnoses Not on filedocumented in this encounter Care Teams Mounter Automatic Relationship Specialty Start Date End Date Farnaz Pineda MD [address] [place] [address] PCP - General 11/18/09 Fela Villegas NP [address] [address] Family Development Specialist Cardiovascular Disease 03/12/22 documented as of this encounter
--- OUTSIDE RECORDS SUMMARY | 2024-06-06 12:31 | XMS_ITS | Encounter Summary ---
Author Organization [facility] Address [address] [place] [address] Care Team Providers Care Laundry Sorter Name Role Phone Farnaz Pineda MD Primary Care Provider [phone] Reason for Visit * Reason Onset Date Comments Medication Management 01/23/2013 Encounter Details Date Type Department Care Team (Late st Contact Info) Description 01/23/2013 Telephone [facility] Cardiology - [address] [place] [address] Neo Madrid MD Medication Management [...] Telephone Encounter - Haleigh Nesbitt - 01/23/2013 2709 EDT Patient had radicule protectomy at [facility] on 11/20 and has been back to [...] Telephone Encounter - Soledad Palacio - 01/23/2013 0878 EDT Pts would like to speak to [...] EDT Ancillary Procedure [facility] Cardiology - [address] [place], [place] [phone] 03/18/2025 14:40 EDT Office Visit [facility] Cardiology - [address] [place] [address] Fela Villegas NP 62 [facility] [address] [place] [address] documented as of this encounter Visit Diagnoses Not on filedocumented in this encounter Historical Medications * This list may reflect changes made after this encounter. Medication Sig Dispensed Refills Start Date End Date cyclobenzaprine (FLEXERIL) 10 mg tablet Take 10 mg by mouth 2 times daily as needed. 03/15/2024 added in this encounter Care Teams Laundry Sorter Relationship Specialty Start Date End Date Farnaz Pineda MD [address] [place] [address] PCP - General 11/18/09 documented as of this encounter
--- OUTSIDE RECORDS SUMMARY | 2024-06-06 12:31 | XMS_ITS | Encounter Summary ---
Author Organization [facility] Address [address] [place] [address] Care Team Providers Care Hvac Service Tech Name Role Phone Farnaz Pineda MD Primary Care Provider [phone] Encounter Details Date Type Department Care Team (Late st Contact Info) Description 09/24/2016 Results Only [facility]- [facility] [phone] Rudy Riojas, DO [address] [place] [address] Social History Tobacco Use Types [...] Info) Description 03/18/2025 14:00 EDT Ancillary Procedure [facility] Cardiology - [place] [address] [place] [address] 03/18/2025 14:40 EDT Office Visit [facility] Cardiology - [facility] [place] [address] Fela Villegas NP 62 [facility] [address] [place] [address] documented as of this encounter [...] ? DILLAN AL ? Accession #: ? [id number] ? : ? 1950 (Age: 66) ??M [...] ANTIBODY(CLONE)(BLO CK):RESULT H. pylori (Rabbit Monoclonal (SP48), [place]) (1): ??Negative NOTE: ??One or more of [...] performance characteristics have been determined by the [facility]. ??The positive and negative controls worked [...] (ASCP) 09/27/2016 9:20 AM End of Report [facility] 09/24/2016 8:46 EST 09/25/2016 8:46 EST Rudy Riojas DO PATHOLOGY ORDERABLES [facility] [address] [place] [address] documented in this encounter Visit Diagnoses Not on filedocumented in this encounter Care Teams Hvac Service Tech Relationship Specialty Start Date End Date Farnaz Pineda MD [address] [place] [address] PCP - General 11/18/09 documented as of this encounter
--- OUTSIDE RECORDS SUMMARY | 2024-06-06 12:31 | XMS_ITS | Encounter Summary ---
Author Organization [facility] Address [address] [place] [address] Care Team Providers Care Cuff Turner Name Role Phone Farnaz Pineda MD Primary Care Provider Reason for Visit * Cardiology (Routine) - Closed Specialty Diagnoses / Procedures Referred By Berta tavera Referred To Contact Cardiology Diagnoses H/O aortic valve replacement Procedures TRANSTHORACIC ECHO (TTE) COMPLETE Fela Villegas NP 62 [facility] [address] [place] [address] [facility] Cardiology [address] [place] [address] [place] [address] Referral ID Status Reason Start Date Expiration Date Visits Re quested Visits Authorized [id number] Closed 07/04/2020 1 1 Encounter Details Date Type Department Care Team (Latest Contact Info) Description 03/05/2021 14:00 EDT Ancillary Procedure [facility] Cardiology - [address] [place] [address] H/O aortic valve replacement Social [...] EDT Ancillary Procedure [facility] Cardiology [address] [place] [address] 03/18/2025 14:40 EDT Office Visit [facility] Cardiology [address] [place], [place] [phone] Fela Villegas NP 62 [facility] [address] [place] [address] documented as of this encounter Procedures Procedure [...] color Doppler.The study was interpreted by [facility] Cardiology. Pertinent images [...] means documented in this encounter Care Teams Cuff Turner Relationship Specialty Start Date End Date Farnaz Pineda MD [address] [place] [address] PCP - General 11/18/09 documented as of this encounter
--- OUTSIDE RECORDS SUMMARY | 2024-06-06 12:31 | XMS_ITS | Encounter Summary ---
Author Organization [facility] Address [address] [place] [address] Care Team Providers Care Manager Delivery Name Role Phone Farnaz Pineda MD Primary Care Provider [phone] Fela Villegas LAB TECH Unavailable [phone] Encounter Details Date Type Department Care Team (Late st Contact Info) Description 07/07/2020 Telephone [facility] Cardiology - [address] [place], [place] [phone] Gricelda Humphrey, LANIE Social History Tobacco Use [...] Info) Description 03/18/2025 14:00 EDT Ancillary Procedure [facility] Cardiology - [place] [address] [place], [place] [phone] 03/18/2025 14:40 EDT Office Visit [facility] Cardiology - [place] [address] [place] [address] Fela Villegas NP [address] [address] documented as of this encounter Visit Diagnoses Not on filedocumented in this encounter Care Teams Manager Delivery Relationship Specialty Start Date End Date Farnaz Pineda MD [address] [place] [address] PCP - General 11/18/09 Fela Villegas NP [address] [address] Carrier Washer Cardiovascular Disease 03/12/22 documented as of this encounter
--- OUTSIDE RECORDS SUMMARY | 2024-06-06 12:31 | XMS_ITS | Encounter Summary ---
Author Organization [facility] Address [address] [place] [address] Care Team Providers Care Ctrs Name Role Phone Farnaz Pineda MD Primary Care Provider [phone] Fela Villegas COOLER SERVICER Unavailable [phone] Reason for Visit * Reason Comments New Patient Visit Uses rescue inhaler BID prior to the Breztri. * Referral (Routine) - Authorization Not Required Specialty Diagnoses / Procedures Referred By [facility] Referred To Contact Pulmonary Disease Diagnoses Abnormal findings on diagnostic imaging of other specified body structures Chronic cough Janel Curtis MD [address] [place] [address] [address] [place] [address] [facility] Pulmonology [address] [place] [address] Referral ID Status Reason Start Date Expiration Date Visits Requested Visits Authorized [id number] Authorization Not Required 1 1 Encounter Details Date Type Department Care Team (Late st Contact Info) Description 04/04/2024 14:00 EDT Office Visit [facility] Pulmonology [address] [place] [phone] Felicia Taveras MBBS 111 [facility], [facility] [address] [place] [phone] Moderate persistent reactive airway disease without complication (Primary Dx); Chronic cough; Abnormal CT of the chest; ILD (interstitial lung disease) ([facility]) Social History Tobacco Use Types Packs/Day [...] Rh factor, anti- CCP , SSA/SSB antibodies/ scl-70,LUGGAGE ATTENDANT ab documented in this encounter Progress Notes * Felicia Taveras MBBS - 04/04/2024 1400 EDT Images from the original note were not included. Pulmonary Clinic Note PCP: Farnaz Pineda This note may be in part documented using [employer] dictation software. Please forgive any errors, omissions [...] the chest 4. ILD (interstitial lung disease) ([facility]) Instructions to Patient Patient Instructions Continue breztri [...] Rh factor, anti- CCP , SSA/SSB antibodies/ scl-70,LUGGAGE ATTENDANT ab Return in about 6 months (around [...] is not on file. 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 albuterol 90 mcg/actuation HFA aerosol inhaler inhaler, INHALE 2 PUFF BY MOUTH EVERY 4 TO 6 HOURS NEEDED FOR COUGH/ WHEEZING OR FOR SHORTNESS OF BREATH ??? atorvastatin (LIPITOR) 20 mg tablet, 20 mg, oral, QHS ??? BREZTRI AEROSPHERE 160-9-4.8 mcg/actuation HFA aerosol inhaler, 2 Puff, inhalation, BID ??? levothyroxine (SYNTHROID) 50 mcg tablet, 50 mcg, oral, DAILY ??? montelukast (SINGULAIR) 10 mg tablet, 10 mg, oral, DAILY ??? omeprazole (PRILOSEC) 20 mg capsule, 20 mg, oral, DAILY ??? oxybutynin (DITROPAN-XL) 10 mg CR tablet, 10 mg, oral, DAILY ??? venlafaxine (EFFEXOR) 75 mg tablet, 75 mg, oral, DAILY ??? WARFARIN SODIUM (COUMADIN ORAL), Take by mouth. As directed Thank you for the consult PANCHO Villanueva Pulmonary Attending [facility] documented in this encounter Plan of Treatment Upcoming Encounters Date Type Department Care Team (Late st Contact Info) Description 03/18/2025 14:00 EDT Ancillary Procedure [facility] Cardiology - [facility] 62 [facility] [place] [address] 03/18/2025 14:40 EDT Office Visit [facility] Cardiology - [facility] 62 [facility] [place] [address] Fela Villegas NP 62 [facility] [address] [place] [address] documented as of this encounter Procedures Procedure Name Priority Date/Time Associated Diagnosis Comments RHEUMATOID SCREEN/TITRE Routine 04/04/2024 15:[address] of the chest ILD (interstitial lung disease) ([facility]) documented in this encounter Results * RHEUMATOID SCREEN/TITRE (04/04/2024 15:32 EDT) Rheumatoid Factor <8.6 <12.0 IU/mL 04/04/2024 21:53 EDT [facility] Blood VENOUS BLOOD / Unknown Venipuncture / Unknown 04/04/2024 15:32 EDT 04/04/2024 16:26 EDT Felicia DELEON CHEMI STRY & BLOOD GAS ORDERABLES [facility] [address] [place] [address] * SSA/SSB PANEL (04/04/2024 15:32 EDT) Ro52 Anitbody, IgG <2.3 <20.0 CU 2023 11:35 EDT [facility] Comment:Results were obtaine d with the [employer] Flash Ro52 chemiluminescent immunoassay. Values obtained with different manufacturers' assay methods must not be used interchangeably. Ro60 Antibody, IgG <7.0 <20.0 CU 2023 11:35 EDT [facility] Comment:Results were obtaine d with the [employer] Flash Ro60 chemiluminescent immunoassay. Values obtained with different manufacturers' assay methods must not be used interchangeably. SSB Antibody, IgG <3.3 <20.0 CU 024 11:35 EDT [facility] Comment:Results were obtaine d with the [employer] Flash SS-B chemiluminescent immunoassay. Values obtained with different manufacturers' assay methods must not be used interchangeably. Blood VENOUS BLOOD / Unknown Venipuncture / Unknown 04/04/2024 15:32 EDT 04/04/2024 16:26 EDT Felicia Taveras [facility] IMMUN OLOGY AND SEROLOGY ORDERABLES Performing Organization Address City/[facility]/ZIP Co de Phone Number [facility] [address] [place] [address] * SCL 70 ANTIBODY, IGG, SERUM (04/04/2024 15:32 EDT) Scl 70 Ab, IgG, S <0.2 <1.0 (Negative ) U 04/05/2024 17:04 EDT [facility] Comment: Test Performed by: [facility] - [address] [address] Coil Wrapper: Cherrie Fernandez Ph.D.; CLIA# [id number] Blood VENOUS BLOOD / Unknown Venipuncture / Unknown 04/04/2024 15:32 EDT 04/04/2024 16:30 EDT Felicia Taveras [facility] IMMUN OLOGY AND SEROLOGY ORDERABLES [facility] [address] [place] [address] * LUGGAGE ATTENDANT ANTIBODY, IGG (04/04/2024 15:32 EDT) LUGGAGE ATTENDANT Antibody, IgG <6.0 <20.0 CU 024 11:35 EDT [facility] Comment:Results were obtaine d with the [employer] QUANTA Flash LUGGAGE ATTENDANT chemilumenscent immunoassay. Values obtained with different manufacturers' assay methods may not be used interchangeably. Blood VENOUS BLOOD / Unknown Venipuncture / Unknown 04/04/2024 15:32 EDT 04/04/2024 16:26 EDT Felicia Taveras [facility] IMMUN OLOGY AND SEROLOGY ORDERABLES Performing Organization Address [facility] de Phone Number [facility] [address] [place] [address] * CCP ANTIBODIES (04/04/2024 15:32 EDT) Pathologist [facility] CCP Antibodies <2.5 <5.0 U/mL 04/05/2024 8:07 EDT [facility] Blood VENOUS BLOOD / Unknown Venipuncture / Unknown 04/04/2024 15:32 EDT 04/04/2024 16:26 EDT Felicia Taveras [facility] IMMUN OLOGY AND SEROLOGY ORDERABLES Performing Organization Address [facility] de Phone Number [facility] [address] [place] [address] * ANTI NUCLEAR AB (OPAL), IFA (04/04/2024 15:32 EDT) OPAL Interpretation Negative Negative 2023 14:28 EDT [facility] Comment:No titer performed, OPAL Screen is negative. Blood VENOUS BLOOD / Unknown Venipuncture / Unknown 04/04/2024 15:32 EDT 04/04/2024 16:26 EDT Narrative [facility] - 04/05/2024 14:28 EDT Results were obtained with the [employer] NOVA Lite HEp-2 OPAL Kit by indirect immunofluorescence. Felicia Taveras [facility] IMMUN OLOGY AND SEROLOGY ORDERABLES Performing Organization Address [facility]/ZIP Co de Phone Number [facility] [address] [place], [place] [phone] * DOUBLE STRANDED DNA ANTIBODY, IGG (04/04/2024 15:32 EDT) [facility] dsDNA Ab, IgG <22.0 <27.0 IU/mL 04/05/2024 11:35 EDT [facility] Comment: Negative: <27.0 IU/mL Indeterminate: 27.0 - 35.0 IU/mL Positive: >35.0 IU/mL Results were obtained with [employer] dsDNA chemiluminescent immunoassay. Values obtained with different manufacturers' assay methods may not be used interchangeably. Blood VENOUS BLOOD / Unknown Venipuncture / Unknown 04/04/2024 15:32 EDT 04/04/2024 16:26 EDT Felicia Taveras [facility] IMMUN OLOGY AND SEROLOGY ORDERABLES Performing Organization Address [facility] Co de Phone Number [facility] [address] [place], [place] [phone] * (ABNORMAL) BASIC METABOLIC PANEL (BMP) (04/04/2024 15:32 EDT) [facility] Sodium 138 136 - 145 [...] 9.1 8.5 - 10.5 mg/dL 04/04/2024 17:01 [facility] BUN 22 10 - 26 mg/dL 04/04/2024 17:01 [facility] Creatinine 1.38(H) 0.66 - 1.25 mg/dL 04/04/2024 17:01 [facility] eGFR 54(L) >60 mL/min/1.73 m2 04/04/2024 17:01 [facility] Blood VENOUS BLOOD / Unknown Venipuncture / Unknown 04/04/2024 15:32 EDT 04/04/2024 16:28 EDT Felicia DELEON CHEMI STRY & BLOOD GAS ORDERABLES [facility] [address] [place] [address] * (ABNORMAL) COMPLETE BLOOD COUNT AND DIFFERENTIAL [...] SERVICES % Monocytes 7.2 % 04/04/2024 16:26 [facility] % Eosinophils 6.7 [...] Felicia NERI GES & DNA PROBE ORDERABLES [facility] [address] [place] [address] documented in this encounter Visit Diagnoses Diagnosis Moderate persistent reactive airway disease without complication- Primary Chronic cough Cough Abnormal CT of the chest Nonspecific (abnormal) findings on radiological and other examination of other intrathoracic organs ILD (interstitial lung disease) ([facility]) Postinflammatory pulmonary fibrosis documented in this encounter Care Teams Ctrs Relationship Specialty Start Date End Date Farnaz Pineda MD [address] [place] [address] PCP - General 11/18/09 Fela Villegas NP [address] [place] [phone] Voip Network Engineer Cardiovascular Disease 03/12/22 documented as of this encounter
--- OUTSIDE RECORDS SUMMARY | 2024-06-06 12:31 | XMS_ITS | Encounter Summary ---
Author Organization [facility] Address [address] [place] [address] Care Team Providers Care Link Wire Fabric Machine Tender Name Role Phone Farnaz Pineda MD Primary Care Provider [phone] Fela Villegas VICE PRESIDENT CORPORATE COMMUNICATIONS Unavailable [phone] Reason for Visit * (Routine/Next Available) - Receiving Office to Obtain Authorization Specialty Diagnoses / Procedures Referred By Berta tavera Referred To Contact Procedures CT OUTSIDE IMAGES ABDOMEN PELVIS Unknown, Provider, Referral ID Status Reason Start Date Expiration Date Visits Requested Visits Authorized [id number] Receiving Office to Obtain Authorization 03/22/2023 1 1 Encounter Details Date Type Department Care Team (Latest Contact Info) Description 03/22/2023 16:56 EDT - 03/22/2023 23:59 EDT Hospital Encounter [facility] Secondary [place] Discharge Disposition: Home or [...] Info) Description 03/18/2025 14:00 EDT Ancillary Procedure [facility] Cardiology [address] [place], [place] [phone] 03/18/2025 14:40 EDT Office Visit [facility] Cardiology [facility] [place] [address] Fela Villegas NP 62 [facility] [address] [place] [address] documented as of this encounter [...] on filedocumented in this encounter Care Teams Link Wire Fabric Machine Tender Relationship Specialty Start Date End Date Farnaz Pineda MD [address] [place] [address] PCP - General 11/18/09 Fela Villegas NP [address] [place] [phone] Entry Operator Cardiovascular Disease 03/12/22 documented as of this encounter
--- OUTSIDE RECORDS SUMMARY | 2024-06-06 12:31 | XMS_ITS | Encounter Summary ---
Author Organization [facility] Address [address] [place] [address] Care Team Providers Care Clock Repair Technician Name Role Phone Unavailable Primary Care Provider Unavailabl e Encounter Details Date Type Department Care Team (Late st Contact Info) Description 09/21/2007 Before PRISM Converted Visit (Maple) [facility] - Maple conversion [address] [place] [address] Neo Madrid MD Social History Tobacco Use [...] Farnaz Pineda MD [address] [facility] [address] Pineda: I saw Mr. Al. [...] Jace Madrid MD - MANAN Job ID: [id number] Doc ID: [id number] cc: Farnaz Pineda MD Neo Madrid MD - Neo Madrid MD - manan Job ID: [id number] Doc ID: [id number] cc: Farnaz Pineda MD documented in this encounter Plan of Treatment Upcoming Encounters Date Type Department Care Team (Late st Contact Info) Description 03/18/2025 14:00 EDT Ancillary Procedure [facility] Cardiology - [place] [address] 03/18/2025 14:40 EDT Office Visit [facility] Cardiology - [facility] 62 [facility] [place] [address] Fela Villegas NP 62 [facility] [address] [place] [address] documented as of this encounter Visit Diagnoses Not on filedocumented in this encounter
--- OUTSIDE RECORDS SUMMARY | 2024-06-06 12:31 | XMS_ITS | Encounter Summary ---
Author Organization [facility] Address [address] [place] [address] Care Team Providers Care Conceptor Name Role Phone Farnaz Pineda MD Primary Care Provider Fela Villegas EAR MACHINE OPERATOR Unavailable [phone] Encounter Details Date Type Department Care Team (Late st Contact Info) Description 03/15/2022 Orders Only [facility] Cardiothoracic Surgery - [address] [id number] Brook Llanos, PAConstantin Aortic valve insufficiency, etiology [facility] - [place] [address] [place] [address] 03/18/2025 14:40 EDT Office Visit [facility] Cardiology - [address] [place] [address] Fela Villegas NP [address] [place] [address] documented as of this encounter Visit Diagnoses Diagnosis Aortic valve insufficiency, etiology of cardiac valve disease unspecified- Primary documented in this encounter Care Teams Conceptor Relationship Specialty Start Date End Date Farnaz Pineda MD [address] [place] [address] PCP - General 11/18/09 Fela Villegas NP [address] [place] [phone] Satellite Installation Technician Cardiovascular Disease 03/12/22 documented as of this encounter
--- OUTSIDE RECORDS SUMMARY | 2024-06-06 12:31 | XMS_ITS | Encounter Summary ---
Author Organization [facility] Address [address] [place] [address] Care Team Providers Care Glass Belt Sander Name Role Phone Farnaz Pineda MD Primary Care Provider [phone] Fela Villegas PEDIATRIC NURSE PRACTITIONER Unavailable [phone] Reason for Visit * Reason Onset Date Comments GI Bleeding 03/22/2023 Encounter Details Date Type Department Care Team (Late st Contact Info) Description 03/22/2023 Telephone [facility] [address] [place], [place] [id number] Shonda Salter MD [address] [address] GI Bleeding Social History Tobacco [...] EDT Hospitalist Patient Transfer Request Requesting Facility: [facility] Requesting Provider: Dr. Urbano Date: 03/22/23 [...] Procedure [facility] Cardiology - Pierrecarolann Ibanez [place] [id number] 03/18/2025 14:40 EDT Office Visit [facility] [place] [address] Fela Villegas NP 62 [facility] [address] [place] [address] documented as of this encounter Visit Diagnoses Not on filedocumented in this encounter Care Teams Glass Belt Sander Relationship Specialty Start Date End Date Farnaz Pineda MD [address] [place] [address] PCP - General 11/18/09 Fela Villegas NP [address] [address] Explosives Handler Cardiovascular Disease 03/12/22 documented as of this encounter
--- OUTSIDE RECORDS SUMMARY | 2024-06-06 12:31 | XMS_ITS | Encounter Summary ---
Author Organization [facility] Address [address] [place] [address] Care Team Providers Care Donor Recruitment Manager Name Role Phone Unavailable Primary Care Provider Unavailabl e Encounter Details Date Type Department Care Team (Late st Contact Info) Description 09/19/2008 13:42 EST Hospital Encounter [facility] - Maple conversion [address] [place] [address] Neo Madrid MD Social History Tobacco Use [...] Info) Description 03/18/2025 14:00 EDT Ancillary Procedure [facility] Cardiology - [facility] [place] [address] 03/18/2025 14:40 EDT Office Visit [facility] Cardiology - [place] [address] Fela Villegas NP 62 [facility] [address] [place] [address] documented as of this encounter Procedures [...] ? DILLAN AL ? Accession #: ? [id number] ? : ? 1950 (Age: 58) ??M [...] MD PATHOLOGY ORDERABLES [facility] [address] [place] [address] documented in this encounter Visit Diagnoses Not on filedocumented in this encounter
--- OUTSIDE RECORDS SUMMARY | 2024-06-06 12:31 | XMS_ITS | Encounter Summary ---
Author Organization [facility] Address [address] [place] [address] Care Team Providers Care Sisal Operator Name Role Phone Farnaz Pineda MD Primary Care Provider [phone] Reason for Visit * Reason Comments Other AV disorder Encounter Details Date Type Department Care Team (Late st Contact Info) Description 03/20/2015 11:30 EDT Office Visit [facility] Cardiology - [address] [place], [place] [id number] Neo Madrid MD Aortic valve disorders (Primary [...] Madrid MD - 03/31/2015 1112 EDT [facility] CARDIOLOG[facility] March 20, 2015 Farnaz Pineda MD [address] [place] [address] RE: DILLAN AL : [address] [...] PM - Neo Madrid MD Dictation ID: [id number] cc: Farnaz Pineda MD, [address], [place] [address] * Neo Madrid MD - 03/20/2015 1203 EDT This office note has been dictated. documented in this encounter Plan of Treatment Upcoming Encounters Date Type Department Care Team (Late st Contact Info) Description 03/18/2025 14:00 EDT Ancillary Procedure [facility] Cardiology - [address] [id number] 03/18/2025 14:40 EDT Office Visit [facility] Cardiology - [address] [place], [place] [phone] Fela Villegas NP 62 [facility] [address] [place] [address] documented as of this encounter Visit Diagnoses Diagnosis Aortic valve disorders- Primary documented in this encounter Care Teams Sisal Operator Relationship Specialty Start Date End Date Farnaz Pineda MD [address] [place] [address] PCP - General 11/18/09 documented as of this encounter
--- OUTSIDE RECORDS SUMMARY | 2024-06-06 12:31 | XMS_ITS | Encounter Summary ---
Author Organization [facility] Address [address] [place] [address] Care Team Providers Care Personal Banking Officer Name Role Phone Unavailable Primary Care Provider Unavailabl e Encounter Details Date Type Department Care Team (Late st Contact Info) Description 03/03/2006 Before PRISM Converted Visit ([facility]) [facility] - Maple conversion [address] [place] [address] Neo Madrid MD Social History Tobacco Use Types Packs/Day Years Used Date Smoking Tobacco: Never Assessed Sex and Gender Information Value Date Recorded Sex Assigned at Not on file Gender Identity Male 07/02/2020 16:52 EDT Sexual Orientation Not on file documented as of this encounter Progress Notes * Neo Madrid MD - 09/20/2009 160 EST March 03, 2006 Farnaz Pineda M.D. 201 [facility], [address] [place] [address] Pineda, I saw Mr. Rodgers [...] Madrid MD A - dsp Job ID: [id number] Document ID: [id number] cc: Farnaz Pineda MD documented in this encounter Plan of Treatment Upcoming Encounters Date Type Department Care Team (Late st Contact Info) Description 03/18/2025 14:00 EDT Ancillary Procedure [facility] Cardiology [address] [place], [place] [id number] 03/18/2025 14:40 EDT Office Visit [facility] Cardiology [address] [place] [address] Fela Villegas NP 62 [facility] [address] [place] [address] documented as of this encounter Visit Diagnoses Not on filedocumented in this encounter
--- OUTSIDE RECORDS SUMMARY | 2024-06-06 12:31 | XMS_ITS | Encounter Summary ---
Author Organization [facility] Address [address] [place] [address] Care Team Providers Care Upholstery Department Supervisor Name Role Phone Farnaz Pineda MD Primary Care Provider [phone] Reason for Visit * Reason Onset Date Comments Anticoagulation 09/21/2012 Anticoagulation 09/22/2012 Encounter Details Date Type Department Care Team (Late st Contact Info) Description 09/21/2012 Telephone [facility] Cardiology - [address] [place], [place] [id number] Neo Madrid MD Anticoagulation; Anticoagulation Social History [...] Telephone Encounter - Nicole Davis - 09/21/[address] Pineda is requesting a call [...] Info) Description 03/18/2025 14:00 EDT Ancillary Procedure [facility] Cardiology [address] [place] [address] 03/18/2025 14:40 EDT Office Visit [facility] Cardiology [address] [place], [place] [phone] Fela Villegas NP [address] [place] [address] [address] [place] [phone] documented as of this encounter Visit Diagnoses Not on filedocumented in this encounter Care Teams Upholstery Department Supervisor Relationship Specialty Start Date End Date Farnaz Pineda MD [address] [place] [address] PCP - General 11/18/09 documented as of this encounter
--- OUTSIDE RECORDS SUMMARY | 2024-06-06 12:31 | XMS_ITS | Encounter Summary ---
Author Organization [facility] Address [address] [place] [address] Care Team Providers Care Precision Farming Coordinator Name Role Phone Farnaz Pineda MD Primary Care Provider [phone] Reason for Visit * Reason Comments Follow-up AVR Encounter Details Date Type Department Care Team (Late st Contact Info) Description 09/23/2011 10:45 EST Office Visit [facility] Cardiology - [address] [place] [address] Neo Madrid MD Aortic valve [...] Notes * Neo Madrid MD - 09/27/2011 3048 EST RE: NAME: DILLAN AL : 1950 September 23, 2011 Farnaz Pineda MD [facility] 201 [facility] [address] [place] [address] Pineda: I saw Mr Al [...] by Neo Madrid MD 10/06/2011 11:17 Neo Madird MD - Neo Madrid MD - MR Job ID: SM Doc ID: [id number] Ext Doc ID: [id number] cc: Farnaz Pineda MD * Neo Madrid MD - 09/23/2011 1056 EST This office note has been dictated. documented in this encounter Plan of Treatment Upcoming Encounters Date Type Department Care Team (Late st Contact Info) Description 03/18/2025 14:00 EDT Ancillary Procedure [facility] Cardiology - [address] [place], [place] [phone] 03/18/2025 14:40 EDT Office Visit [facility] Cardiology - [address] [place], [place] [phone] Fela Villegas, PANKAJ 62 [facility] [address] [place] [address] documented as of this encounter Visit Diagnoses Diagnosis Aortic valve disorders- Primary documented in this encounter Care Teams Precision Farming Coordinator Relationship Specialty Start Date End Date Farnaz Pineda MD [address] [place] [address] PCP - General 11/18/09 documented as of this encounter
--- OUTSIDE RECORDS SUMMARY | 2024-06-06 12:31 | XMS_ITS | Encounter Summary ---
Author Organization [facility] Address [address] [place] [address] Care Team Providers Care Shirt Sorter Name Role Phone Farnaz Pineda MD Primary Care Provider [phone] Reason for Visit * Reason Comments Heart Problem FUR, Aortic Valve Di sorder Encounter Details Date Type Department Care Team (Late st Contact Info) Description 07/03/2019 14:30 EDT Office Visit [facility] Cardiology - [address] [place], [place] [phone] Neo Madrid MD S/P AVR (Primary Dx); [...] MD, MD - 07/03/2019 0000 EDT [facility] CARDIOLOGY July 03, 2019 Farnaz Pineda MD [address], [address] [place] [address] RE: DILLAN AL : [address] [...] by DVT. c. Complicated by sepsis. d. Allison filter. Current Medications: Fluticasone/salmeterol twice per day. [...] - Neo Madrid MD cn Dictation ID: [id number] cc: Farnaz Pineda MD, [address] [address] documented in this encounter Plan of Treatment Upcoming Encounters Date Type Department Care Team (Late st Contact Info) Description 03/18/2025 14:00 EDT Ancillary Procedure [facility] Cardiology - [address] [place] [address] 03/18/2025 14:40 EDT Office Visit [facility] Cardiology - [address] [place] [address] Fela Villegas NP 62 [facility] [address] [place] [address] documented as of this encounter Visit Diagnoses Diagnosis S/P AVR- Primary Heart valve replaced by other means Aortic valve disorder Aortic valve disorders documented in this encounter Discontinued Medications Medication Sig Discontinue Reason Start Date End Da te Aspirin 81 mg Tab Take 81 mg by mouth daily. 07/03/2019 documented as of this encounter Care Teams Shirt Sorter Relationship Specialty Start Date End Date Farnaz Pineda MD [address] [place] [address] PCP - General 11/18/09 documented as of this encounter
--- OUTSIDE RECORDS SUMMARY | 2024-06-06 12:31 | XMS_ITS | Encounter Summary ---
Author Organization [facility] Address [address] [place] [address] Care Team Providers Care Rn Medication Name Role Phone Unavailable Primary Care Provider Unavailabl e Encounter Details Date Type Department Care Team (Late st Contact Info) Description 09/21/2007 14:25 EST Hospital Encounter [facility] - Maple conversion [address] [place] [address] Neo Madrid MD Social History Tobacco Use [...] Info) Description 03/18/2025 14:00 EDT Ancillary Procedure [facility] Cardiology - [facility] [place] [address] 03/18/2025 14:40 EDT Office Visit [facility] Cardiology [place] [address] Fela Villegas NP [address] [phone] documented as of this encounter Visit Diagnoses Not on filedocumented in this encounter
--- OUTSIDE RECORDS SUMMARY | 2024-06-06 12:32 | XMS_ITS | Encounter Summary ---
Author Organization [facility] Address [address] [place] [address] Care Team Providers Care Forest Fire Fighter Name Role Phone Unavailable Primary Care Provider Unavailabl e Encounter Details Date Type Department Care Team (Late st Contact Info) Description 03/15/2002 10:11 EDT Hospital Encounter [facility] - Maple conversion [address] [place] [address] Neo Madrid MD Social History Tobacco Use [...] Ancillary Procedure [facility] Cardiology - [facility] [place] [address] 03/18/2025 14:40 EDT Office Visit [facility] Cardiology - [facility] [place] [address] Fela Villegas NP [address] [phone] documented as of this encounter Visit Diagnoses Not on filedocumented in this encounter
--- OUTSIDE RECORDS SUMMARY | 2024-06-06 12:32 | XMS_ITS | Encounter Summary ---
Author Organization [facility] Address [address] [place] [address] Care Team Providers Care Utility System Operator Name Role Phone Unavailable Primary Care Provider Unavailabl e Encounter Details Date Type Department Care Team (Late st Contact Info) Description 03/10/2000 9:58 EDT Hospital Encounter [facility] [address] [place] [address] Neo Madrid MD Social History Tobacco Use [...] Info) Description 03/18/2025 14:00 EDT Ancillary Procedure [facility] Cardiology - [facility] [place] [address] 03/18/2025 14:40 EDT Office Visit [facility] Cardiology - [place] [address] Fela Villegas NP [address] [phone] documented as of this encounter Visit Diagnoses Not on filedocumented in this encounter
--- OUTSIDE RECORDS SUMMARY | 2024-06-06 12:32 | XMS_ITS | Encounter Summary ---
Author Organization [facility] Address [address] [place] [address] Care Team Providers Care Clinical Review Nurse Name Role Phone Unavailable Primary Care Provider Unavailabl e Encounter Details Date Type Department Care Team (Latest Contact Info) Description 06/04/2002 8:37 EDT - 06/04/2002 11:59 EDT Hospital Encounter [facility] [address] [place] [address] Masoud Contreras MD Discharge Disposition: Auto Discharge [...] 03/18/2025 14:00 EDT Ancillary Procedure [facility] Cardiology - [address] [place] [address] 03/18/2025 14:40 EDT Office Visit [facility] Cardiology - [facility] [place] [address] Fela Villegas NP [address] [facility] [address] [place] [address] documented as of this encounter [...] EDT) UA Billing Microscopic not indicated. CHERYL CHATTERJEE 06/04/2002 11:2 2 EDT 06/04/2002 11:23 EDT Masoud Contreras MD URINALYSIS ORDERA BLES [facility] [address] [place] [address] * URINALYSIS (06/04/2002 11:22 EDT) Color, UA Yellow [facility] Clarity, UA Clear [facility] Glucose, UA Norm NORM [facility] Bilirubin, UA Neg NEG [facility] Ketones, UA Neg NEG [facility] Specific [place], Urine 1.020 1.005 - 1.02 [facility] Blood, UA Neg NEG [facility] pH, UA 7.0 5.0 - 9.0 [facility] Protein, UA Neg NEG [facility] Urobilinogen, UA Norm NORM mg/dL [facility] Nitrite, UA Neg NEG [facility] Leuk Esterase Neg NEG [facility] 06/04/2002 11:2 2 EDT 06/04/2002 11:23 EDT Masoud Contreras MD URINALYSIS ORDERA UNIQUE [facility] Organization Address City/State/ZIP Co de Phone Number [facility] [address] [place] [address] documented in this encounter Visit Diagnoses Not on filedocumented in this encounter
--- OUTSIDE RECORDS SUMMARY | 2024-06-06 12:32 | XMS_ITS | Encounter Summary ---
Author Organization [facility] Address [address] [place] [address] Care Team Providers Care Beam Racker Name Role Phone Unavailable Primary Care Provider Unavailpedro luis e Encounter Details Date Type Department Care Team (Late st Contact Info) Description 08/17/2001 10:21 EST - 08/17/2001 11:59 EST Hospital Encounter [facility] - Maple conversion [address] [place] [address] Kristi Dickens NP [address] [address] Discharge Disposition: Auto Discharge Social History Tobacco [...] Description 03/18/2025 14:00 EDT Ancillary Procedure [facility] Cardiology - [place] [address] [place] [address] 03/18/2025 14:40 EDT Office Visit [facility] Cardiology - [place] [address] Fela Villegas NP 62 [facility] [address] [place] [address] documented as of this encounter Visit Diagnoses Not on filedocumented in this encounter
--- OUTSIDE RECORDS SUMMARY | 2024-06-06 12:32 | XMS_ITS | Encounter Summary ---
Author Organization [facility] Address [address] [place] [address] Care Team Providers Care Night Stocker Name Role Phone Unavailable Primary Care Provider Unavailabl e Encounter Details Date Type Department Care Team (Latest Contact Info) Description 06/21/2002 6:54 EDT - 06/26/2002 11:59 EDT Hospital Encounter [facility] Cardiothoracic Surgery Unit [address] [place], [place] [id number] Masoud Contreras MD Discharge Disposition: Home or Self Care [...] Ancillary Procedure [facility] Cardiology - [address] [place], [place] [id number] 03/18/2025 14:40 EDT Office Visit [facility] Cardiology - [facility] [place] [address] Fela Villegas NP [address] [facility] [address] [place] [address] documented as of this encounter [...] HEMATOLOGY & PF4 ORDERABLES Performing Organization Address City/State/[facility] Co de Phone Number [facility] [address] [place] [address] * (ABNORMAL) PROTIME (06/26/2002 7:45 EDT) Pro Time 13.8(H) 11.7 - 13.1 secs [facility] I.N.R. 1.2 0.8 - 1.2 Ratio [facility] Comment: Moderate Intensity Coumadin INR = 2.0-3.0 Adjustments in anticoagulant therapy dose should be based upon the INR and NOT the Pro Time. 06/26/2002 7:45 EDT 06/26/2002 8:03 EDT Masoud Contreras MD HEMATOLOGY & PF4 ORDERABLES Performing Organization Address [facility] Co de Phone Number [facility] [address] [place] [address] * PROTIME (06/25/2002 7:40 EDT) Pro Time 12.8 11.7 - 13.1 secs [facility] I.N.R. 1.1 0.8 - 1.2 Ratio [facility] Comment: Moderate Intensity Coumadin INR = 2.0-3.0 Adjustments in anticoagulant therapy dose should be based upon the INR and NOT the Pro Time. 06/25/2002 7:40 EDT 06/25/2002 8:33 EDT Masoud Contreras MD HEMATOLOGY & PF4 ORDERABLES Performing Organization Address [facility] de Phone Number [facility] [address] [place] [address] * URINE MICROSCOPIC (06/25/2002 0:15 EDT) WBC, UA less than 1 0 - 5 /HPF [facility] RBC, UA 5 to 10 0 [...] MD URINALYSIS ORDERA BLES Performing Organization Address [facility] Co de Phone Number [facility] [address] [place] [address] * (ABNORMAL) URINALYSIS (06/25/2002 0:15 EDT) Color, UA Yellow [facility] Clarity, UA Clear [facility] Glucose, UA Norm NORM [facility] Bilirubin, UA Neg NEG [facility] Ketones, UA Neg NEG [facility] Specific [place], Urine 1.015 1.005 - 1.02 [facility] [...] MD URINALYSIS ORDERA BLES Performing Organization Address [facility] Co de Phone Number [facility] [address] [place] [address] * BACTERIAL CULTURE, URINE (06/25/2002 0:15 EDT) Specimen Description Urine [facility] Result Less than 10,000 CFU/ml Mixed gram positive growth [facility] Report Status Final [id number] [facility] 06/25/2002 0:15 EDT 06/25/2002 7:46 EDT Masoud Contreras MD MICROBIOLOGY - GE NERAL ORDERABLES Performing Organization Address [facility] Co de Phone Number [facility] [address] [place] [address] * BACTERIAL CULTURE, BLOOD (06/24/2002 20:14 EDT) Specimen Description Blood Right Arm [facility] Result No growth [facility] Report Status Final [id number] [facility] 06/24/2002 20:1 4 EDT 06/24/2002 21:24 EDT Masoud Contreras MD MICROBIOLOGY - GE NERAL ORDERABLES Performing Organization Address City/[facility]/ZIP Co de Phone Number [facility] [address] [place] [address] * BACTERIAL CULTURE, BLOOD (06/24/2002 20:10 EDT) Specimen Description Blood Left Arm [facility] Result No growth [facility] Report Status Final [id number] [facility] 06/24/2002 20:1 0 EDT 06/24/2002 21:25 EDT Masoud Contreras MD MICROBIOLOGY - GE NERAL ORDERABLES Performing Organization Address [facility] Co de Phone Number [facility] [address] [place] [address] * CHEST PA AND LATERAL (06/24/2002 11:32 [...] pneumothorax is present. Pulmonary vasculature is unremarkable. /[facility] Masoud Contreras MD IMG DIAGNOSTIC IM [...] results. [facility] Report Status Final [id number] [facility] 06/24/2002 8:00 EDT 06/25/2002 10:12 EDT Masoud Contreras MD MICROBIOLOGY - GE NERAL ORDERABLES Performing Organization Address [facility] de Phone Number [facility] [address] [place] [address] * PROTIME (06/24/2002 7:40 EDT) Pro Time 13.1 11.7 - 13.1 secs [facility] I.N.R. 1.1 0.8 - 1.2 Ratio [facility] Comment: Moderate Intensity Coumadin INR = 2.0-3.0 Adjustments in anticoagulant therapy dose should be based upon the INR and NOT the Pro Time. 06/24/2002 7:40 EDT 06/24/2002 8:05 EDT Masoud Contreras MD HEMATOLOGY & PF4 ORDERABLES Performing Organization Address [facility] de Phone Number [facility] [address] [place] [address] * POTASSIUM (06/24/2002 7:40 EDT) Potassium 4.0 3.5 - 5.0 mEq/L [facility] 06/24/2002 7:40 EDT 06/24/2002 8:05 EDT Masoud Contreras MD CHEMISTRY & BLOOD GAS ORDERABLES Performing Organization Address [facility] de Phone Number [facility] [address] [place] [address] * CREATININE (06/24/2002 7:40 EDT) Creatinine 1.1 0.7 - 1.5 mg/dl [facility] 06/24/2002 7:40 EDT 06/24/2002 8:05 EDT Masoud Contreras MD HISTORICAL LAB FO R SQ LOAD [facility] [address] [place] [address] * (ABNORMAL) HEMAGRAM & DIFF (06/24/2002 7:40 EDT) WBC 16.12(H) 4.0 - 10.4 K/cmm [facility] RBC 3.37(L) 4.36 - 5.78 [...] ABS Lymphs 1.59 1.09 - 3.30 K/cmm [facility] ABS Monocytes 1.33(H) 0.1 - 0.8 K/cmm [facility] ABS Eosinophils 0.34 0.03 - 0.61 K/cmm [facility] ABS Basophils 0.06 0.01 - 0.11 K/cmm [facility] Type of Diff: Automated [facility] 06/24/2002 7:40 EDT 06/24/2002 8:05 EDT Masoud Contreras MD HISTORICAL LAB FO R SQ LOAD Performing Organization Address [facility] Phone Number [facility] [address] [place] [address] * BUN (06/24/2002 7:40 EDT) BUN 20 10 - 26 mg/dl [facility] 06/24/2002 7:40 EDT 06/24/2002 8:05 EDT Masoud Contreras MD CHEMISTRY & BLOOD GAS ORDERABLES Performing Organization Address [facility] Phone Number [facility] [address] [place] [address] * (ABNORMAL) PROTIME (06/23/2002 7:45 EDT) Pro [...] HEMATOLOGY & PF4 ORDERABLES Performing Organization Address [facility] Phone Number [facility] [address] [place] [address] * PORTABLE CHEST 1 VIEW (06/22/2002 8:19 EDT) Anatomical Region Laterality Modality Other 06/22/2002 8:19 EDT Narrative 07/07/2009 3:57 EDT AVR. ??R/O INFILTRATE PORTABLE CHEST 1 VIEW 06/22/02 0730 FINDINGS: There is increasing atelectasis in the medial right and left lung bases. No edema is noted and there are no significant pleural effusions. The [place]Mariah catheter tip is in the proximal right pulmonary artery. The patient has been extubated. /[facility] Procedure Note Blair Hernandez MD / Riky Arias MD - 07/07/2009 AVR. R/O INFILTRATE PORTABLE CHEST 1 VIEW 06/22/02 0730 FINDINGS: There is increasing atelectasis in the medial right and left lung bases. No edema is noted and there are no significant pleural effusions. The [place]Mariah catheter tip is in the proximal right pulmonary artery. The patient has been extubated. /[facility] Masoud Contreras MD IMG DIAGNOSTIC IM AGING [...] Contreras MD CHEMISTRY & BLOOD GAS ORDERABLES [facility] [address] [place] [address] * CREATININE (06/22/2002 4:17 EDT) Creatinine 1.1 0.7 - 1.5 mg/dl [facility] 06/22/2002 4:17 EDT 06/22/2002 4:17 EDT Masoud Contreras MD HISTORICAL LAB FO R SQ LOAD Performing Organization Address City/[facility]/ZIP Co de Phone Number [facility] [address] [place] [address] * (ABNORMAL) HEMAGRAM (06/22/2002 4:17 EDT) WBC [...] HEMATOLOGY & PF4 ORDERABLES Performing Organization Address [facility] Co de Phone Number [facility] [address] [place] [address] * BUN (06/22/2002 4:17 EDT) BUN 15 10 - 26 mg/dl [facility] Comment: Moderate hemolysis Results may be affected due to hemolysis. 06/22/2002 4:17 EDT 06/22/2002 4:17 EDT Masoud Contreras MD CHEMISTRY & BLOOD GAS ORDERABLES Performing Organization Address [facility] Co de Phone Number [facility] [address] [place] [address] * (ABNORMAL) BLOOD GAS, G3 ISTAT (06/21/2002 19:05 EDT) pH, i-STAT 7.33(L) 7.35 - 7.45 [facility] pCO2, i-STAT 42 35 - 45 mmHg [facility] pO2, i-STAT 90 85 - 100 mmHg [facility] TCO2, i-STAT 23 mEq/L [facility] O2 Saturation 96 % [facility] Temperature 37.0 C [facility] FIO2 35 [facility] Vent Support MODE:CPAP,TYPE: Pressure,RATE=1 3,PEEP=05 [facility] Pressures PIP=00,PS=05 [facility] Sample Type Arterial [facility] artist blacksmith ID [id number] Test Performed by Respiratory [facility] 06/21/2002 19:0 5 EDT 06/22/2002 5:51 EDT Masoud Cotnreras MD CHEMISTRY & BLOOD GAS ORDERABLES Performing Organization Address [facility] Co de Phone Number [facility] [address] [place] [address] * POTASSIUM (06/21/2002 18:55 EDT) Pathologist [facility] Potassium 4.6 3.5 - 5.0 mEq/L [facility] 06/21/2002 18:5 5 EDT 06/21/2002 18:55 EDT Masoud Contreras MD CHEMISTRY & BLOOD GAS ORDERABLES Performing Organization Address [facility] Co de Phone Number [facility] [address] [place] [address] * (ABNORMAL) HEMAGRAM (06/21/2002 18:55 EDT) WBC 11.25(H) 4.0 - 10.4 K/cmm [facility] RBC 3.11(L) 4.36 - 5.78 M/cmm [facility] Hemoglobin 9.8(L) 13.8 - 17.3 gm/dl [facility] HCT 28.8(L) 39.5 - 50.2 % [...] & PF4 ORDERABLES [facility] [address] [place] [address] * PORTABLE CHEST 1 VIEW (06/21/2002 15:00 EDT) Anatomical Region Laterality Modality Other 06/21/2002 15:0 0 EDT Narrative 07/07/2009 3:56 EDT S/P AVR EVAL MEDISTINAL PLEURAL EFFUSION PORTABLE CHEST, ONE VIEW, 06/21/02, 1500 HISTORY: Status post AVR, evaluate mediastinum, pleural effusions. Endotracheal tube is in good position. Mediastinal drain is normally positioned as well. [place]Mariah catheter tip is in the right anterior pulmonary artery. Right-sided chest tube is present as well. NG tube is passing into the stomach. There are low lung volumes. There is a small amount of left lower lobe atelectasis. The mediastinum is widened to the expected amount considering postoperative status. /[facility] Procedure Note Blair Hernandez MD / Riky Arias MD - 07/07/2009 S/P AVR EVAL MEDISTINAL PLEURAL EFFUSION PORTABLE CHEST, ONE VIEW, 06/21/02, 1500 HISTORY: Status post AVR, evaluate mediastinum, pleural effusions. Endotracheal tube is in good position. Mediastinal drain is normally positioned as well. [place] catheter tip is in the right anterior pulmonary artery. Right-sided chest tube is present as well. NG tube is passing into the stomach. There are low lung volumes. There is a small amount of left lower lobe atelectasis. The mediastinum is widened to the expected amount considering postoperative status. /[facility] Masoud Contreras MD IMG DIAGNOSTIC IM AGING ORDERABLES * (ABNORMAL) BLOOD GAS, G3 ISTAT (06/21/2002 14:35 EDT) pH, i-STAT 7.38 7.35 - 7.45 [facility] pCO2, i-STAT 39 35 - 45 mmHg [facility] pO2, i-STAT 102(H) 85 - 100 mmHg [facility] TCO2, i-STAT 24 mEq/L [facility] O2 Saturation 98 % [facility] Temperature 36.1 C [facility] FIO2 45 [facility] Vent Support MODE:IMV,TYPE:V olume,RATE=10,P EEP=05 [facility] Pressures PIP=00,PS=05 [facility] Sample Type Arterial [facility] artist blacksmith ID [id number] Test Performed by Respiratory [facility] 06/21/2002 14:3 5 EDT 06/21/2002 19:18 EDT Masoud Contreras MD CHEMISTRY & BLOOD GAS ORDERABLES Performing Organization Address [facility] de Phone Number [facility] [address] [place] [address] * POTASSIUM (06/21/2002 12:17 EDT) Potassium 4.2 3.5 - 5.0 mEq/L [facility] 06/21/2002 12:1 7 EDT 06/21/2002 12:38 EDT Masoud Contreras MD CHEMISTRY & BLOOD GAS ORDERABLES Performing Organization Address [facility] Co de Phone Number [facility] [address] [place] [address] * (ABNORMAL) HEMAGRAM (06/21/2002 12:17 EDT) WBC [...] HEMATOLOGY & PF4 ORDERABLES Performing Organization Address City/State/[facility] Co de Phone Number [facility] [address] [place] [address] * SURGICAL PATHOLOGY (06/21/2002 0:00 EDT) Pathologist [facility] Pathology Report: SURGICAL PATHOLOGY REPORT Reports generated via electronic interface contain original data; however they are lacking the format of the original report. Caution should be taken when reading/interpreti ng unformatted reports. Name: ? MIKAELADILLAN Terrence ? Accession #: ? [id number] ? : ? 1950 (Age: 52) ??M [...] Description: ? Received in normal saline labelled Mikaela and aortic valve are three aortic valve cusps received in two pieces. ??One separate cups measures 2.6 x 2.0 x 0.2 cm and the remaining two fused cusps measures 2.3 x 0.8 x 0.2 cm and 3.0 x 1.3 x 0.3 cm. ??The valve cusps are garcia-white and floppy. ??Along one aspect, the cusps are thickened and calcified. ??A call center representative section of each cusp is submitted as (A1) and (A2). ??(Dr. Sandoval)/[facility] End of Report [facility] 06/21/2002 06/21/2002 13: 43 EDT Masoud Contreras MD PATHOLOGY ORDERAB LES [facility] [address] [place] [address] documented in this encounter Visit Diagnoses Not on filedocumented in this encounter
--- OUTSIDE RECORDS SUMMARY | 2024-06-06 12:32 | XMS_ITS | Encounter Summary ---
Author Organization [facility] Address [address] [place] [address] Care Team Providers Care Fish Technologist Name Role Phone Unavailable Primary Care Provider Unavailabl e Encounter Details Date Type Department Care Team (Late st Contact Info) Description 07/06/2001 15:49 EDT Hospital Encounter [facility] - [place] conversion [address] [place] [address] Leanna Iqbal MD [address] [place] [address], [address] [place] [phone] Social History Tobacco Use Types Packs/Day Years [...] Procedure [facility] Cardiology - [place] [address] 03/18/2025 14:40 EDT Office Visit [facility] Cardiology - [address] [place], [place] [phone] Fela Villegas NP [address] [place] [address] documented as of this encounter Procedures [...]
--- OUTSIDE RECORDS SUMMARY | 2024-06-06 12:32 | XMS_ITS | Encounter Summary ---
Author Organization [facility] Address [address] [place] [address] Care Team Providers Care Mediator Name Role Phone Unavailable Primary Care Provider Unavailabl e Encounter Details Date Type Department Care Team (Latest Contact Info) Description 05/21/2002 6:19 EDT - 05/21/2002 11:59 EDT Hospital Encounter [facility] General Surgery Unit [address] [place], [place] [address] Neo Madrid MD Discharge Disposition: Home or [...] Ancillary Procedure [facility] Cardiology - [address] [place] [address] 03/18/2025 14:40 EDT Office Visit [facility] Cardiology - [address] [place] [address] Fela Villegas NP [address] [facility] [address] [place] [address] documented as of this encounter [...] BLOOD GA S ORDERABLES Performing Organization Address City/[facility]/ZIP Co de Phone Number [facility] [address] [place] [address] * (ABNORMAL) PTT (05/21/2002 7:14 EDT) PTT 21(L) 23 - 33 secs [facility] Comment:Therapeutic Heparin range: 58-100 seconds 05/21/2002 7:14 EDT 05/21/2002 7:15 EDT Neo Madrid MD HEMATOLOGY & PF4 ORD ERABLES Performing Organization Address City/[facility] Co de Phone Number [facility] [address] [place] [address] * PROTIME (05/21/2002 7:14 EDT) Pro Time [...] & PF4 ORD ERABLES Performing Organization Address [facility] de Phone Number [facility] [address] [place] [address] * ELECTROLYTES (05/21/2002 7:14 EDT) Sodium 141 136 - 145 mEq/L [facility] Potassium 4.3 3.5 - 5.0 mEq/L [facility] Chloride 107 96 - 110 mEq/L [facility] CO2 28 24 - 30 mEq/L [facility] 05/21/2002 7:14 EDT 05/21/2002 7:15 EDT Neo Madrid MD CHEMISTRY & BLOOD GA S ORDERABLES Performing Organization Address [facility] de Phone Number [facility] [address] [place] [address] * LIPID PROFILE (INCLUDES CHOLESTEROL, TRIGLYCERIDES, HDL, LDL) (05/21/2002 7:14 EDT) Cholesterol 208 mg/dl [facility] Comment: Desirable:<200 Borderline:200-239 High Risk:>ll=080 Triglycerides 104 35 - 160 mg/dl [facility] HDL 54 mg/dl [facility] Comment: Highly Desirable:>60 Desirable:35-60 High Risk:<35 Fasting LDL, Calculated 133 mg/dl [facility] Comment: Desirable:<130 Borderline:130-159 High Risk:>fo=498 Fasting Chol/HDL Ratio 3.9 Fasting [facility] 05/21/2002 7:14 EDT 05/21/2002 7:15 EDT Neo Madrid MD CHEMISTRY & BLOOD GA S ORDERABLES [facility] [address] [place] [address] * CREATININE (05/21/2002 7:14 EDT) Creatinine 1.2 0.7 - 1.5 mg/dl [facility] 05/21/2002 7:14 EDT 05/21/2002 7:15 EDT Neo Madrid MD HISTORICAL LAB FOR S Q LOAD Performing Organization Address City/[facility] Co de Phone Number [facility] [address] [place] [address] * HEMAGRAM (05/21/2002 7:14 EDT) WBC 9.51 [...] & PF4 ORD ERABLES Performing Organization Address City/[facility] Co de Phone Number [facility] [address] [place] [address] * (ABNORMAL) BUN (05/21/2002 7:14 EDT) BUN 29(H) 10 - 26 mg/dl [facility] 05/21/2002 7:14 EDT 05/21/2002 7:15 EDT Neo Madrid MD CHEMISTRY & BLOOD GA S ORDERABLES Performing Organization Address City/State/[facility] Co de Phone Number [facility] [address] [place] [phone] documented in this encounter Visit Diagnoses Not on filedocumented in this encounter
[2024-06-07 15:54] LABS: IgA 377 mg/dL (85-499); IgG 803 mg/dL (610-1616); IgM 65 mg/dL (35-242)
== END 2024-06-06 12:24 | disposition home or self-care (01) ==
LOC: LBN 12:23
PROVIDERS: PCP Family Medicine; Visit Provider Internal Medicine Critical Care Medicine
DX: R05.3 Chronic cough (principal)
CPT/HCPCS: 82784

== ENCOUNTER 2024-06-07 19:40 | Outpatient (REF) | payer MEDICARE, SELFPAY ==
--- OUTSIDE RECORDS SUMMARY | 2024-06-07 19:43 | XMS_ITS | Data Portability ---
Author Organization [facility] [place] [address] Care Team Providers Care Live Truck Technician Name Role Phone CAMERON PATEL Primary Care Provider HUEY SHANNON Urologist [phone] [facility] Switch Operator CAMERON PEGUERO Rapid Outsole Stitcher LOGAN PINA Dentist Assessment Encounter Date Assessment [...] screenings consistent with USPSTF and ACIP guidelines [email or web address] Not available 02/19/2024 10:32:26 Plan of Treatment Reminders Order Date Submit Date Provider Last Modified By Organization Details Last Modified Time Details Appointments Medica re Annual Wellne ss 40 2024 01:30P M Not available Not available Not available Lab PT/INR 2022 023 [facility], [address] [place], [address], 09/02/2023 16:56:15 hemogl obin (Hb), finger stick, blood 2022 023 [facility], [address] [place], [address], 09/22/2023 17:14:08 hemogl obin (Hb), finger stick, blood 2023 024 [facility], [address] [place] [address], [address], 02/21/2024 15:17:02 Referral None record ed. Procedures None record ed. Surgeries None record ed. Imaging None record ed. Medication Orders doxycy gorman hyclat e 100 mg tablet 2022 023 [facility], [address] [place], [address], 09/22/2023 12:19:58 Patient TargetsNo targets recorded. Patient Instructions Encounter Date Encounter Id Patient Instructions Last Modified By Organization Details Last Modified Time 09/02/2023 [id number] I will send prescription for doxycycline to [facility] for you to take twice a day for 7 days, and follow up here in 7-10 days. Use albuterol as needed. for INR: 7.5mg x 4 days, 5mg x 3 days, test Tue09/09/23 (will be starting doxycycline) [email or web address] Not available 09/02/2023 16:59:05 02/21/2024 [id number] Has AD's filled out - just needs to have witnessed. [email or web address] Not available 02/21/2024 14:22:45 Reason for Referral Rapid Outsole Stitcher Referral for P ersistent cough Referring Physician: Cameron Patel, Family Medicine, Encounter Date: 10/13/2023 Results Created Date Observation Date Name Description Value Unit Range Abnormal Flag Note LastModifiedBy Organization Detail LastModifiedTime 10/26/08/04/2023 INR, blood INR 3.2 Not Available Not Availa ble 05/11/2024 15:45:56 08/08/20 23 08/08/2023 INR, blood INR 3.5 Not Available Not Availa ble 05/11/2024 15:45:50 08/16/20 23 08/16/2023 INR, blood INR 3.6 Not Available Not Availa ble 05/11/2024 15:45:48 08/18/20 23 08/18/2023 INR, blood INR 2.2 Not Available Not Availa ble 05/11/2024 15:45:48 08/22/20 23 08/22/2023 INR, blood INR 2.5 Not Available Not Availa ble 05/11/2024 15:45:42 08/26/20 23 08/26/2023 PT/IN R INR 2.2 2.5-3. 5 abnormal Not Available [facility] [address], [address], 08/26/2023 15:58:50 09/02/20 23 09/02/2023 PT/IN R INR 1.9 Not Available [facility] [address] [place], [address], 09/02/2023 11:32:25 09/22/20 23 09/22/2023 hemog lobin (Hb), finge rstic k, blood HGB 13.1 Not Available [facility] [address] [place], [address], 09/22/2023 12:58:21 10/07/20 23 10/07/2023 home monit oring * INR 3.0 Not Available [facility] [address], [address], 10/07/2023 13:12:13 01/02/20 24 01/02/2024 PT/IN R PT/INR 2.3 2.5-3. 5 abnormal Not Available [facility] [address], [address], 01/02/2024 12:17:48 02/21/20 24 02/21/2024 hemog lobin (Hb), finge rstic k, blood HGB 13.2 g/dL Not Available [facility] [address] [place], [address], 02/21/2024 14:37:34 03/20/20 24 03/20/2024 PT/IN R PT/INR 2.2 2.5-3. 5 abnormal dose [email or web address] e Not Available [facility] [address] [place], [address], 03/20/2024 10:08:42 04/20/20 24 04/20/2024 BUN BUN 14 mg/dL 7-18 normal Not Available [address] [place], [address] 04/20/2024 12:53:22 04/20/20 24 04/20/2024 CREAT ININE creatinine 1.4 mg/dL 0.70-1 .30 high Not Available [address] [place], [address] 04/20/2024 12:53:23 04/20/20 24 04/20/2024 CREAT ININE estimated GFR 52.74 mL/min /1.73m 2 The eGFR is calcu lated from a serum creat inine using the CKD-E PI 2020 equat ion. Other varia bles requi red for the equat ion are gende r and age; this equat ion does not inclu de a race coeff icien t. This equat ion has simil ar overa ll perfo rmanc e to previ ous equat ions excep t value s may diffe r, in parti cular , in patie nts with highe r value s of eGFR and young er-ag ed adult s. Not Available [address] [place], [address] 04/20/2024 12:53:23 04/20/20 24 04/20/2024 BUN BUN 14 mg/dL 7-18 normal Not Available [address] [place], [address] 04/20/2024 14:52:49 04/20/20 24 04/20/2024 CREAT ININE creatinine 1.4 mg/dL 0.70-1 .30 high Not Available [address] [place], [address] 04/20/2024 14:52:50 04/20/20 24 04/20/2024 CREAT ININE estimated GFR 52.74 mL/min /1.73m 2 The eGFR is calcu lated from a serum creat inine using the CKD-E PI 2020 equat ion. Other varia bles requi red for the equat ion are gende r and age; this equat ion does not inclu de a race coeff icien t. This equat ion has simil ar overa ll perfo rmanc e to previ ous equat ions excep t value s may diffe r, in parti cular , in patie nts with highe r value s of eGFR and young er-ag ed adult s. Not Available [address] [place], [address] 04/20/2024 14:52:50 06/06/20 24 06/07/2024 IMMUN OGLOB ULINS IGA,I GG,IG M IgG 803 mg/dL 610-16 16 Not Available [address] [place], [address] 06/07/2024 16:37:53 06/06/20 24 06/07/2024 IMMUN OGLOB ULINS IGA,I GG,IG M IgA 377 mg/dL 85-499 Not Available Tasha rebolledo [address] [place], [address] 06/07/2024 16:37:53 06/06/20 24 06/07/2024 IMMUN OGLOB ULINS IGA,I GG,IG M IgM 65 mg/dL 35-242 Test perfo rmed or refer red by [facility] [address], [place] [address] Not Available [address] [place], [address] 06/07/2024 16:37:53 06/07/20 24 06/07/2024 GRAM STAIN gram stain Gram Stain GRAM STAIN (REPO RT) Few White Blood Cells Rare Epith elial Cells Few Mixed Gram Posit koki Ingris ; None Predo minan t Not Available [place] [address] [facility] [place], [address] 06/07/2024 14:59:18 11/29/19 24 11/29/2023 CT imagi ng repor t Patien t Name: Sylvain Rodgers Unit #: [id number] Loc: DI Orderi ng Provid er: Cameron Peguero Accadalgisa t #: [id number] Status : REG CLI Primar y [...] facili ty are submit kandace to the [facility] al Radiol ogy Data Regist ry (NRDR) Dose Index Regist ry (DIR) with the [place] of Radiol ogy (ACR). RADIAT ION OPTIMI ZATION : [facility] use at least one of these dose optimi zation techni ques: automa kandace exposu re contro l; mA and/or kV adjust ment per patien t size (inclu halima target ed exams where dose is matche d to clinic al indica tion); or iterat koki recons tructi on. 219-0 007: Total DLP = 0.00 mGy-cm Ordere d By: Cameron Peguero CC: ------ ------ ------ ------ ------ ------ ------ ------ ------ ------ ------ ------ ---- Dictat ed By: Ashok Brown M.D. 1633 1633 Transc ribed By: Stephanie NICHOLSON,Vanesa sylwia 1633 This is privil eged, confid ential inform ation intend ed only for the provid er named. Any use or distri bution by any person other than this provid er is strict ly prohib ited. If you receiv e this report in error, please notify us immedi ately at [phone] and return the origin al report to us at the addres s above. Thank- you. librado [facility] [address], [place], [address] 12/08/2023 17:36:11 12/01/19 24 12/01/2023 PFT, compl ete Pulmon sofia Marshallcti on Test PATIEN T NAME: Sylvain Rodgers UNIT #: [id number] ADMITT ING PROVID ER: Gina Da Silva M.D. ACCOUN T #: [id number] PRIMAR Y CARE PROVID ER: CAMERON [...] at the addres s above. Thank you. librado [facility] [address] [facility] [place], [address] 12/08/2023 17:36:12 02/23/20 24 02/23/2024 CT imagi ng repor t Patien t Name: Sylvain Rodgers Unit #: [id number] Loc: DI Orderi ng Provid er: Gina Da Silva M.D. Accoun t #: [id number] Status : REG CLI Primar y Care Provid er: Holli bryantCe M.D. Date of Exam : Sex: M [...] left lower lobe subple ural nodule . Kaitline r, when compar ed to the CT [...] facili ty are submit kandace to the [facility] al Radiol ogy Data Regist ry (NRDR) [...] tion); or iterat koki recons tructi on. 0516-0 014: Total DLP = 0.00 mGy-cm Ordere d By: Gina Da Silva M.D. CC: ------ ------ ------ ------ ------ ------ ------ ------ ------ ------ ------ ------ ---- Dictat ed By: Ashok Brown M.D. 1722 Transc ribed By: Vanesa Brown MD 1722 This is privil eged, confid ential inform ation intend ed only for the provid er named. Any use or distri bution by any person other than this provid er is strict ly prohib ited. If you receiv e this report in error, please notify us immjustin peterson at and return the origin al report to us at the addres s above. Thank- you. librado [place] [address] [facility] [address], [place], [address] 03/01/2024 15:56:36 Result Notes None recorded. Problems Name Problem SNOMED Code Status Onset Date Resolution Date Notes Provider Name and Address Organization Details Recorded Time Nicotine dependen ce 75447232 Active 2003 Problem Code: Z87.891; Problem Code Type: ICD-10; Not Available [facility] 3 04:46:37 Uncompli cated mild persiste nt asthma 829892125 Active 200811/26/19 22 - Comments only - Cameron Patel MD - stable on the singulai r, advairserge albutero l. Exercisi ng regulari ly. Problem Code: J45.30; Problem Code Type: ICD-10; Not Available [facility] 3 04:46:37 Testicul ar hypofunc tion 948387676 Active 2009 Problem Code: E29.1; Problem Code Type: ICD-10; Not Available [facility] 3 04:46:37 Divertic ular disease 740438326 Completed 201210/24/2012 Not Available [facility] 3 04:46:37 Gastroes ophageal reflux disease without esophagi tis 036106374 Active 2001 Problem Code: K21.9; Problem Code Type: ICD-10; Not Available [facility] 3 04:46:37 Malignan t tumor of prostate 306406609 Active 201207/26/20 17 - Comments only - Cameron Patel MD - will plan on checking a PSA with next blood draw if not checked by urology. Last PSA was in 2015 and <0.3. Not Available [facility] 3 04:46:37 Umbilica l hernia 352886840 Active 201410/07/20 15 - Comments only - Cameron Patel MD - deferrin g surgery for now, will consider it after her retires. He is aware that if he gets acute pain he will need to be seen. Problem Code: K42.9; Problem Code Type: ICD-10; Not Available [facility] 3 04:46:37 Adult health examinat ion Active 201411/15/19 23 - Comments only - Cameron Patel MD - He would like a lipid panel done. Follow-u p arranged that the fasting level in a few weeks. Problem Code: Z00.00; Problem Code Type: ICD-10; Not Available [facility] 3 04:46:38 Osteoart hritis 401360625 Active 201412/16/19 19 - Comments only - Dylan Tsang - Advised him that he can take up to Tylenol 500 mg tablets TID. Problem Code: M19.90; Problem Code Type: ICD-10; Not Available [facility] 3 04:46:38 Anticoag ulant therapy Active 201511/15/19 23 - Comments only - Cameron Patel MD - INR elevated today due to current antibiot ic use for dental infectio n. Instruct ed below in terms of warfarin dosing. We will continue to follow closely. Not Available [facility] 3 04:46:38 Dyspnea 472628238 Completed 201510/22/2016 Problem Code: R06.02; Problem Code Type: ICD-10; Not Available [facility] 3 04:46:38 History of blood disorder 273194690 Active 2015 Not Available [facility] 3 04:46:38 Gastriti s 0349398 Active 201511/15/19 23 - Comments only - Cameron Patel MD - With history of a GI bleed. He now is on omeprazo le 40 mg twice daily, remain asymptom atic. He does monitor for any change in bowels. Problem Code: K29.70; Problem Code Type: ICD-10; Not Available [facility] 3 04:46:38 Hypothyr oidism 15640699 Active 201511/15/19 23 - Comments only - Cameron Patel MD - Due for TSH/free T4. He will come in for fasting blood work as below in a few weeks. Problem Code: E03.9; Problem Code Type: ICD-10; Not Available [facility] 3 04:46:38 Implanta tion to cardiova scular system Active 201607/26/20 17 - Comments only - Cameron Patel MD - will discuss with radiolog y the best means of imaging this to confirm it has not migrated , then he can discuss pro's and con's of leaving it in place with cardiolo gy Problem Code: Z95.828; Problem Code Type: ICD-10; Not Available [facility] 3 04:46:39 Anxiety 02678164 Active 201611/15/19 23 - Comments only - Cameron Patel MD - Doing well, he continue s to feel that the venlafax ine is benefici al. Problem Code: F41.8; Problem Code Type: ICD-10; Not Available [facility] 3 04:46:39 Prosthet ic heart valve in situ 592080826 Active 201611/15/19 23 - Comments only - Cameron Patel MD - , Clinical ly remainin g stable. He does follow with cardiolo gy. Problem Code: Z95.2; Problem Code Type: ICD-10; Not Available [facility] 3 04:46:39 Mild intermit tent asthma 240877006 Active 201711/22/19 21 - Comments only - Cameron Patel MD - well controll ed on the singulai r and prn albutero l (rarely needs) Problem Code: J45.20; Problem Code Type: ICD-10; Not Available [facility] 3 04:46:39 Erectile dysfunct ion followin g radical prostate ctomy 60461479197 9101 Active 2017 Problem Code: N52.31; Problem Code Type: ICD-10; Not Available [facility] 3 04:46:39 Pre-surg bruno evaluati on Active 2017 Problem Code: Z01.818; Problem Code Type: ICD-10; Not Available [facility] 3 04:46:39 Disorder of kidney and/or ureter 161971231 Active 201811/26/19 22 - Comments only - Cameron Patel MD - with single kidney - will check a BMP. Problem Code: N28.9; Problem Code Type: ICD-10; Not Available [facility] 3 04:46:40 Pain in left foot 90250640908 9107 Active 2019 Problem Code: M79.672; Problem Code Type: ICD-10; Not Available [facility] 3 04:46:40 Hypergly cemia 31292571 Active 2019 Problem Code: R73.9; Problem Code Type: ICD-10; Not Available [facility] 3 04:46:40 Screenin g for malignan t neoplasm of colon Active 2021 Problem Code: Z12.11; Problem Code Type: ICD-10; Not Available [facility] 3 04:46:40 Erythema 624435750 Active 202211/15/19 23 - Comments only - Cameron Patel MD - Involvin g the perirect al area. Currentl y being treated with over-the -counter antifung als which do not seem to be helping signific antly. They do have Lotrison e at home. I stated they can go ahead and start using that pending culture results that I took. Problem Code: L53.9; Problem Code Type: ICD-10; Not Available [facility] 3 04:46:40 Gastroin testinal hemorrha ge 89965063 Active 2022 Problem Code: K92.2; Problem Code Type: ICD-10; Not Available [facility] 3 04:46:40 Acute posthemo rrhagic anemia 464502480 Active 2022 Problem Code: D62; Problem Code Type: ICD-10; Not Available [facility] 3 04:46:41 Cardiac arrhythm ia 069840132 Active 2022 Problem Code: I49.9; Problem Code Type: ICD-10; Not Available [facility] 3 04:46:41 Diaphrag matic hernia 16484035 Active 2022 Problem Code: K44.9; Problem Code Type: ICD-10; Not Available [facility] 3 04:46:41 Divertic mita of intestin e 18841585 Active 2022 Problem Code: K57.90; Problem Code Type: ICD-10; Not Available [facility] 3 04:46:41 Reduced libido 3779900 Completed 200208/08/2018 Not Available [facility] 3 04:46:41 Facial swelling 248640920 Completed 201608/08/2018 Not Available [facility] 3 04:46:41 Cellulit is 576633893 Completed 201608/08/2018 Problem Code: L03.90; Problem Code Type: ICD-10; Not Available [facility] 3 04:46:42 Alcohol dependen ce 54865031 Completed 201511/26/2021 Problem Code: F10.20; Problem Code Type: ICD-10; Not Available [facility] 3 04:46:42 Anemia 615735029 Completed 201509/27/2016 Problem Code: D64.9; Problem Code Type: ICD-10; Not Available [facility] 3 04:46:42 Testoste manuel level below referenc e range 848110416 Completed 200907/06/2023 Not Available [facility] 3 04:46:42 Pneumoni a 574995626 Completed 201708/08/2018 Problem Code: J18.9; Problem Code Type: ICD-10; Not Available [facility] 3 04:46:42 Dyspnea 974591253 Completed 201505/18/2017 Problem Code: R06.02; Problem Code Type: ICD-10; Not Available [facility] 3 04:46:43 Long-ter m current use of anticoag ulant 075018381 Completed 201411/12/2022 Problem Code: Z79.01; Problem Code Type: ICD-10; Not Available [facility] 3 04:46:43 Hypothyr oidism 15242495 Completed 201111/26/2021 Problem Code: 244.9; Problem Code Type: ICD-9; Not Available [facility] 3 04:46:43 Asthma 644296313 Completed 200807/06/2023 07/26/20 17 - Comments only - Cameron Patel MD - stable on the singulai r, symbicor t (I suggeste d that he may try 1 puff bid instead of 2 bid), occasion al ventolin use Problem Code: 493.90; Problem Code Type: ICD-9; Not Available [facility] 3 04:46:43 Partial edentuli sm 530086774 Completed 201911/26/2021 Problem Code: K08.499; Problem Code Type: ICD-10; Not Available [facility] 3 04:46:43 Gastroes ophageal reflux disease 916667395 Completed 200107/06/2023 10/07/20 15 - Comments only - Cameron Patel MD - [facility] ed on omeprazo le Not Available [facility] 3 04:46:44 Cough 77802607 Completed 201708/08/2018 Problem Code: R05; Problem Code Type: ICD-10; Not Available [facility] 3 04:46:44 Decrease d coughing 24347200 Active [address], [place], [address] , [facility] 3 11:04:01 Cough 15621803 Completed 202209/05/2023 Problem Code: R05.8; Problem Code Type: ICD-10; Not Available [facility] 4 05:34:24 Intermit tent urinary incontin ence 425338183 Active [address]23 [address], [place], [address] , [facility] 18:29:42 Chronic cough 23143547 Active 2023 CAMERON PATEL MD [facility] [address], [place], [address] , [facility] 18:30:35 Notes:*Problem Name: Colonos copy 2013 - Repeat 2018 *ICD-10 Codes: *Problem Status: inactive *Comments: *Note Date: 08/02/2013 *Problem Name: Chcf Anticoagulation *Problem Status: inactive *Comments: *Problem Code: [...] Date: 07/05/2002 Some problems listed in Documents: #[id number], #[id number], #[id number] could not be added to this patient's chart. Please review these documents and add these problems to the patient's chart manually as needed. Problem Notes None recorded. Procedures Surgical History Date Name Laterality Status Provider Name and Address Organization Details Recorded Time 05/25/20 18 repair of inguinal hernia completed DARRICK Coronado [facility] 12/06/2023 07:49:10 11/20/19 13 prostatectomy completed DARRICK Coronado [facility] 12/06/2023 07:49:28 Imaging Results Imaging Date Name Status LastModified by Organiz ation Details LastModified Time 11/29/2023 CT imaging report completed [address] [place], [address] 12/08/2023 17:36:11 12/01/2023 PFT, complete completed [address] [place], [address] 12/08/2023 17:36:12 02/23/2024 CT imaging report completed [address] [place], [address] 03/01/2024 15:56:36 Procedure Notes None recorded. Medical [...] active Not Available Not Available Not Avai labdora azithromy bay 250 mg tablet Take 2 [...] Not Available Not Available No t Available sodium chloride 3 % for nebulizat ion USE 4ML VIA NEBULIZE R TWO TIMES A DAY active Not Available [...] completed Not Available Not Available Not Available [address] 10 mg tablet Take 1 [...] mg tablet TAKE ONE TABLET BY MOUTH EVERY 12 HOURS active Not Available Not Available No t Available Tylenol Extra Strength 500 mg tablet 2 tablet by mouth every six hours as needed 2012 active Not Available Not Available Not Avai lable enoxapari n 80 mg/0.8 mL subcutane ous syringe INJECT 80MG (ONE SYRINGE) UNDER THE SKIN TWO TIMES A DAY active Not Available Not Available No t Available enoxapari n 100 mg/mL subcutane ous syringe [...] Not Available Not Available No t Available Brekyatri Aerospher e 02/23 completed [facility] Not Available Not Available Not Available Vitals Date Recorded Body height Body mass index (BMI) Body weight Oxygen saturation Oxygen saturation in Arterial blood by Pulse oximetry Inhaled oxygen concentration Heart rate Body temperature Systolic blood pressure Diastolic blood pressure Provider Name and Address Organization Details Last Updated DateTime 3 171.45 cm 30.9 kg/m2 99977.9 1 g 98 % 98 % 98 % 88 /min 97.9 [degF] 108 mm[Hg] 68 mm[Hg] Caterina bryant LPN [facility] 3 10:57:19 Date Recorded Body height Body mass index (BMI) Body weight Oxygen saturation Oxygen saturation in Arterial blood by Pulse oximetry Heart rate Systolic blood pressure Diastolic blood pressure Provider Name and Address Organization Details Last Updated DateTime 3 171.45 cm 29.9 kg/m2 04352.9 2 g 99 % 99 % 80 /min 114 mm[Hg] 78 mm[Hg] Perfecto Fountain MA [facility] 3 11:55:55 Date Recorded Body height Body mass index (BMI) Body weight Oxygen saturation Oxygen saturation in Arterial blood by Pulse oximetry Heart rate Systolic blood pressure Diastolic blood pressure Provider Name and Address Organization Details Last Updated DateTime 4 171.45 cm 30.4 kg/m2 02588.7 g 96 % 96 % 67 /min 104 mm[Hg] 62 mm[Hg] Perfecto Fountain MA [facility] 4 13:44:30 Social History Question Answer Notes LastModified by Organizat ion Details LastModified Time Tobacco Smoking Status Former Smoker Perfecto Fountain MA null, [facility] 09/22/2023 11:54:06 When Did You Quit Smoking? 16+yearssincel astcigarette [email or web address] Information not available 09/22/2023 Date Of Most Recent HSA 02/21/2024 [email or web address] Information not available 02/21/2024 Would You Say That, In General, Your Health Is Good [email or web address] Information not available 02/21/2024 How Often Does Anyone, Including Family, Physically Hurt You? Never Information not available 02/21/2024 How Often Does Anyone, Including Family, Insult Or Talk Down To You? Never Information no t available 02/21/2024 How Often Does Anyone, Including Family, Threaten You With Harm? Never [email or web address] Information not available 02/21/2024 How Often Does Anyone, Including Family, Scream Or Curse At You? Never [email or web address] Information not available 02/21/2024 Within The Past 12 Months, You Worried That Your Food Would Run Out Before You Got Money To Buy More. Never True [email or web address] Information n ot available 02/21/2024 Within The Past 12 Months, The Food You Bought Just Didn't Last And You Didn't Have Money To Get More. Never True [email or web address] Information n ot available 02/21/2024 How Hard Is It For You To Pay For The Very Basics Like Food, Housing, Medical Care, And Heating? Would You Say It Is: Not Hard At All [email or web address] Information not available 02/21/2024 In The Past 12 Months, Has Lack Of Reliable Transportation Kept You From Medical Appointments, Meetings, Work Or From Getting Things Needed For Daily Living? No [email or web address] Information not available 02/21/2024 What Is Your Housing Situation Today? I Have Housing. [email or web address] Information not available 02/21/2024 How Often In The Past Year Have You Used Marijuana (including Smoking, Vaping, Dabbing, Or Edibles)? Never [email or web address] Information not available 02/21/2024 How Often In The Past Year Have You Used Prescription Medications That Were Not Prescribed To You? Never Information n ot available 02/21/2024 How Often In The Past Year Have You Taken Your Own Prescription Medication More Than The Way It Was Prescribed Or For Different Reasons Than Its Intended Purpose? Never [email or web address] Information no t available 02/21/2024 How Often In The Past Year Have You Used Other Drugs (for Example, Heroin, Cocaine, Meth, Salvia, Inhalants)? Never [email or web address] Information not available 02/21/2024 Have You Ever Used IV Drugs? No [email or web address] Information not available 02/21/2024 During The Past Four Weeks Has Your Physical And Emotional Health Limited Your Social Activities With Family And Friends, Neighbors, Or Groups? Not At All [email or web address] Information not available 02/21/2024 During The Past Four Weeks, Was Someone Available To Help You If You Needed And Wanted Help? (For Example, If You [place] Very Nervous, Lonely, Or Blue; Got Sick And Had To Stay In Bed; Needed Someone To Talk To; Needed Help With Daily Chores; Or Needed Help Just Taking Care Of Yourself.) Yes- As Much As I Wanted [email or web address] Information not available 02/21/2024 During The Past Four Weeks, What Was The Hardest Physical Activity You Could Do For At Least 2 Minutes? Moderate [email or web address] Information not available 02/21/2024 Can You Get To Places Out Of Walking Distance Without Help? (For Example, Can You Travel Alone On Buses Or Taxis, Or Drive Your Own Car?) Yes Information not available 02/21/2024 Can You Go Shopping For Groceries Or Clothes Without Someone? s Help? Yes [email or web address] Information not available 02/21/2024 Can You Prepare Your Own Meals? Yes [email or web address] Information not available 02/21/2024 Can You Do Your Housework Without Help? Yes Information not available 02/21/2024 Because Of Any Health Problems, Do You Need The Help Of Another Person With Your Personal Care Needs Such As Eating, Bathing, Dressing, Or Getting Around The House? No [email or web address] Information not available 02/21/2024 Can You Handle Your Own Money Without Help? Yes [email or web address] Information not available 02/21/2024 Are You Having Difficulties Driving Your Car? No [email or web address] Information no t available 02/21/2024 Do You Always Fasten Your Seat Belt When You Are In A Car? Yes- Usually [email or web address] Information not available 02/21/2024 How Often During The Past Four Weeks Have You Been Bothered By Any Of The Following Problems? Falling Or Dizzy When Standing Up? Never [email or web address] Information not available 02/21/2024 Sexual Problems? Always [email or web address] Informat ion not available 02/21/2024 Trouble Eating Well? Never [email or web address] Information not available 02/21/2024 Teeth Or Denture Problems? Never [email or web address] Information not available 02/21/2024 Problems Using The Telephone? Never [email or web address] Information not available 02/21/2024 Tiredness Or Fatigue? Never ufianppl72 Information not available 02/21/2024 Have You Had 2 Or More Falls Or Sustained An Injury With A Fall In The Last Year? No [email or web address] Information no t available 02/21/2024 Do You Have Difficulty With Walking Or Balance? No Information not available 02/21/2024 Do You Currently Use A Hearing Device? No [email or web address] Information not available 02/21/2024 Do You Currently Have Any Trouble With Your Vision? No [email or web address] Information no t available 02/21/2024 Do You Exercise For About 20 Minutes Three Or More Days A Week? Yes- Some Of The Time [email or web address] Information not available 02/21/2024 Are There Any Safety Concerns In Your Home (see Attached CDC Pamphlet)? No [email or web address] Information not available 02/21/2024 How Often Do You Have Trouble Taking Medicines The Way You Have Been Told To Take Them? I Always Take Them As Prescribed Information not available 02/21/2024 How Confident Are You That You Can Control And Manage Most Of Your Health Problems? Very Confident Information not available 02/21/2024 Do You Currently Have Any Difficulty With Your Hearing? No [email or web address] Information not available 02/21/2024 Date Of Most Recent SBINS 02/21/2024 [email or web address] Information not available 02/21/2024 What Was The Date Of Your Most Recent Tobacco Screening? 02/21/2024 [email or web address] Information not available 02/21/2024 What Is Your Current Pack Years? 10-19packyears [email or web address] Information not available 02/21/2024 At What Age Did You Start Smoking Tobacco? 20 [email or web address] Information not available 02/21/2024 How Much Tobacco Do You Smoke? 1 PPD okvixxpv81 Information not available 02/21/2024 How Many Years Have You Smoked Tobacco? 17 [email or web address] Information not available 02/21/2024 Do You Or Have You Ever Used Any Other Forms Of Tobacco Or Nicotine? No Information not available 02/21/2024 Sex: Male Functional Status None recorded. Mental Status None recorded. Family History Nothing Reported Notes:*Problem: Mother at 68 - had arthritis, [...] preservative free, adsorbed 11/26/2021 completed Not Available [facility] 08/19/2023 04:09:30 Tdap 12/16/2011 completed Not Available [facility] 04:09:30 zoster live 09/05/2012 completed Not Available [facility] 08/19/2023 04:09:30 Novel Tuitftdfs-[id number], all formulations 10/08/2009 completed Not Available [facility] 08/19/2023 04:09:30 Pneumococcal conjugate PCV 13 07/22/2017 completed Not Available [facility] 08/19/2023 04:09:30 Influenza, high-dose, trivalent, PF 07/04/2019 completed Not Available [facility] 08/19/2023 04:09:31 Td(adult) unspecified formulation 08/08/2008 completed Not Available [facility] 08/19/2023 04:09:31 Td(adult) unspecified formulation 09/09/2007 completed Not Available [facility] 08/19/2023 04:09:31 Influenza, split virus, trivalent, PF 07/15/2015 completed Not Available [facility] 2022 04:09:31 Influenza, split virus, quadrivalent, PF 06/17/2020 completed Not Available [facility] 08/19/2023 04:09:31 Influenza, split virus, quadrivalent, preservative 07/25/2017 completed Not Available [facility] 08/19/2023 04:09:31 zoster recombinant 03/09/[address] [facility] 08/19/2023 04:09:31 Influenza, high-dose, quadrivalent, PF 07/29/2022 completed Not Available [facility] 08/19/2023 04:09:31 Influenza, high-dose, quadrivalent, PF 08/05/2021 completed Not Available [facility] 08/19/2023 04:09:32 COVID-19, mRNA, LNP-S, PF, 100 mcg/0.5mL dose or 50 mcg/0.25mL dose 11/28/2020 completed Not Available [facility] 08/19/2023 04:09:32 COVID-19, mRNA, LNP-S, PF, 100 mcg/0.5mL dose or 50 mcg/0.25mL dose 12/26/2020 completed Not Available [facility] 08/19/2023 04:09:32 COVID-19, mRNA, LNP-S, PF, 100 mcg/0.5mL dose or 50 mcg/0.25mL dose 08/05/2021 completed Not Available [facility] 08/19/2023 04:09:32 COVID-19, mRNA, LNP-S, bivalent, PF, 30 mcg/0.3 mL dose 07/29/2022 completed Not Available [facility] 08/19/20 04:09:32 pneumococcal polysaccharide PPV23 09/19/2001 completed Not Available [facility] 2022 04:09:32 pneumococcal polysaccharide PPV23 10/07/2015 completed Not Available [facility] 2022 04:09:33 influenza, unspecified formulation 11/11/2009 completed Not Available [facility] 08/19/2023 04:09:33 influenza, unspecified formulation 06/13/2012 completed Not Available [facility] 08/19/2023 04:09:33 influenza, unspecified formulation 06/18/2014 completed Not Available [facility] 08/19/2023 04:09:33 influenza, unspecified formulation 07/15/2017 completed Not Available [facility] 08/19/2023 04:09:33 influenza, unspecified formulation 07/16/2010 completed Not Available [facility] 08/19/2023 04:09:33 influenza, unspecified formulation 07/16/2016 completed Not Available [facility] 08/19/2023 04:09:33 influenza, unspecified formulation 07/24/2016 completed Not Available [facility] 08/19/2023 04:09:33 influenza, unspecified formulation 07/30/2013 completed Not Available [facility] 08/19/2023 04:09:34 influenza, unspecified formulation 08/05/2006 completed Not Available [facility] 08/19/2023 04:09:34 influenza, unspecified formulation 08/06/2003 completed Not Available [facility] 08/19/2023 04:09:34 influenza, unspecified formulation 08/08/2008 completed Not Available [facility] 08/19/2023 04:09:34 influenza, unspecified formulation 09/18/2007 completed Not Available [facility] 08/19/2023 04:09:34 SARS-COV-2 (COVID-19) vaccine, UNSPECIFIED 08/30/2023 completed DARRICK Coronado [facility] 02/21/2024 15:13:13 Respiratory syncytial virus (RSV) MAB, unspecified 02/20/2024 completed DARRICK Coronado [facility] 03/01/2024 15:17:47 Past Encounters Encounter ID Performer Location Encounter Start Date Encounter Closed Date Diagnosis/Indication Diagnosis SNOMED-CT Code Diagnosis ICD10 Code [id number] BOU[address] [address] 09/02/2023 10:38:42 09/02/2023 11:31:34 Anticoagulant therapy 508500330 Z79.01 Persistent cough 0199630 02 R05.3 [id number] CAMERON PATEL MD [address] [address] 09/22/2023 11:49:05 09/22/2023 12:32:20 Anemia 021515650 D64.9 Decreased coughing 88459 003 R05.9 [id number] CAMERON PATEL MD [address] [address] 02/21/2024 13:30:45 02/21/2024 14:36:28 Adult health examination 971788420 Z00.00 Screening for malignant neoplasm of colon 856501688 Z12.11 Anticoagulant therapy 18 3499484 Z79.01 Malignant tumor of prostate 142083507 C61 Prosthetic heart valve in situ 326863215 Z95.2 Uncomplica kandace mild persistent asthma 609289331 J45.30 Hypothyroidism 33097227 E03.9 Gastrointe stinal hemorrhage 25414034 K92.2 Intermitte nt urinary incontinence 800425222 N39.498 Chronic cough 33585311 R 05.3 Anxiety 54728241 F41.9 Health Concerns Section Related Observation LastModified by Organization Detai ls LastModified Time None Recorded Concern Status LastModified by Organization Details LastModified Time None Recorded Advance Directives Directive None Recorded Payers Encounter Date Sequence Insurance Name Policy Number Policy Burns Covered Member ID Burns Member ID Guarantor Name 09/02/2023 1 [place] - [place]PO) [id number] Sylvain Ramirezyes [id number] Sylvain Ocampo Vishal 09/22/2023 1 [place] - [place]) [id number] Sylvain Ramirezyes [id number] Sylvain Terrence RamirezVishal 02/21/2024 1 [place] - [place]PO) [id number] Sylvain Ramirezyes [id number] Sylvain Ramirezyes Notes Date Note Type Note Provider Name and Address Organization Details Recorded Time 09/02/2023 text/html HPI Notes: Cough Reported by patient. Quality: productive Severity: improving Duration: intermittent; subacute (3-8 weeks) Associated Symptoms: no fever; no chills; no chest pain; no chest wall tenderness; no shortness of breath; sputum production; no muscle pain Seen at [facility] 08/15/23 for cough x 3 weeks and [...] or sinus congestion, fevers/chills, SOB. ANDI CAVANAUGH, [employer]- [address], [place], [address], [facility]. 09/02/2023 17:01:48 09/22/2023 text/html HPI Notes: Frankie here today for f/u of recent bronchitis MD [address]z [address], [place], [address], [facility], [facility]. 09/26/2023 11:05:04 02/21/2024 text/html HPI Notes: Frankie here today for a medicare wellness exam MD Luz Maria [address], [place], [address], [facility], [facility]. 02/26/2024 07:16:33
--- OUTSIDE RECORDS SUMMARY | 2024-06-07 19:43 | XMS_ITS | Encounter Summary ---
Author Organization [place] [address] Care Team Providers Care Glass Etcher Helper Name Role Phone Franaz Pineda MD Primary Care Provider [phone] Encounter Details Date Type Department Care Team (Late st Contact Info) Description 03/22/2023 Telephone [place] [phone] Ute Danielle MD [facility] [place] [address] Social History Tobacco Use Types Packs/Day Years [...] Miscellaneous Notes * Telephone Encounter - Ute Danielel MD - 03/22/2023 4:18 PM EDT Images from the original note were not included. DIVISION OF GASTROENTEROLOGY & HEPATOLOGY [facility] CALL Name: Sylvain Rodgers Date: 03/22/2023 Time: 4:19 PM Referring Location: [facility] Referring Provider: Dr. Urbano 73yo M w/PMH [...] filedocumented in this encounter Care Teams Glass Etcher Helper Relationship Specialty Start Date End Date Farnaz Pineda MD [address] [place] [address] PCP - General 10/26/12 documented as of this encounter
--- OUTSIDE RECORDS SUMMARY | 2024-06-07 19:43 | XMS_ITS | Encounter Summary ---
Author Organization [facility] [place] [address] Care Team Providers Care Research Leader Name Role Phone Farnaz Pineda MD Primary Care Provider [phone] Encounter Details Date Type Department Care Team (Latest Contact Info) Description 03/18/2022 3:20 PM EDT Laboratory Appointment Lab [address] [address] Malignant neoplasm of prostate Social [...] (Ultrasensitive ) <0.01 0.00 - 4.00 ng/mL [facility] Comment: PLEASE NOTE: The above reference interval is intended for healthy males with an intact prostate. Values within this reference interval may indicate recurrence in men who have undergone radical prostatectomy. Blood 03/18/2022 3:07 PM EDT 03/18/2022 3:28 PM EDT Narrative Resulting Agency Comment Spec In Lab Leonardo Barrios MD CHEMISTRY ORDERABL ES [facility] [place] [address] documented in this encounter Visit Diagnoses Diagnosis Malignant neoplasm of prostate documented in this encounter Care Teams Research Leader Relationship Specialty Start Date End Date Farnaz Pineda MD [address] [place] [address] PCP - General 10/26/12 documented as of this encounter
--- OUTSIDE RECORDS SUMMARY | 2024-06-07 19:43 | XMS_ITS | Encounter Summary ---
Author Organization [facility] [place] [address] Care Team Providers Care Vacuum Cleaner Assembler Name Role Phone Farnaz Pineda MD Primary Care Provider [phone] Encounter Details Date Type Department Care Team (Late st Contact Info) Description 08/16/2023 9:40 AM EST TH Visit (TeleHealth) [place] [phone] Leonardo Barrios MD [facility] [place] [address] Malignant neoplasm of prostate Social History Tobacco [...] prostate documented in this encounter Care Teams Vacuum Cleaner Assembler Relationship Specialty Start Date End Date Farnaz Pineda MD [address] [place], [place] [address] PCP - General 10/26/12 documented as of this encounter
--- OUTSIDE RECORDS SUMMARY | 2024-06-07 19:43 | XMS_ITS | Clinical Summary ---
Author Organization [facility] [place] [address] Care Team Providers Care Program Officer Name Role Phone Farnaz Pineda MD Primary Care Provider [phone] Allergies No known active allergies Medications Medication [...] is based on Patients wishes. Care Teams Program Officer Relationship Specialty Start Date End Date Farnaz Pineda MD [address] [place] [address] PCP - General 10/26/12
--- OUTSIDE RECORDS SUMMARY | 2024-06-07 19:43 | XMS_ITS | Encounter Summary ---
Author Organization [facility] [address] Care Team Providers Care Buffing Line Set Up Worker Name Role Phone Farnaz Pineda MD Primary Care Provider [phone] Encounter Details Date Type Department Care Team (Late st Contact Info) Description 07/16/2019 1:20 PM EDT Laboratory Appointment Lab [address] [place] [address] Elevated PSA Social History Tobacco [...] (Ultrasensitiv e) <0.01 0.00 - 4.00 ng/mL [facility] Blood specimen (specimen) 07/16/2019 1:33 PM EDT 07/16/2019 1:37 PM EDT Narrative Resulting Agency Comment Spec In Lab Leonardo Barrios MD CHEMISTRY ORDERABL ES [facility] [place] [address] documented in this encounter Visit Diagnoses Diagnosis Elevated PSA Elevated prostate specific antigen (PSA) documented in this encounter Care Teams Buffing Line Set Up Worker Relationship Specialty Start Date End Date Farnaz Pineda MD [address] [place] [address] PCP - General 10/26/12 documented as of this encounter
--- OUTSIDE RECORDS SUMMARY | 2024-06-07 19:43 | XMS_ITS | Encounter Summary ---
Author Organization [facility] [place] [address] Care Team Providers Care Hand Funnel Coater Name Role Phone Farnaz Pineda MD Primary Care Provider [phone] Encounter Details Date Type Department Care Team (Late st Contact Info) Description 06/15/2023 [place] [address] Leonardo Barrios MD [facility] [address] Malignant neoplasm of prostate Social History Tobacco [...] prostate documented in this encounter Care Teams Hand Funnel Coater Relationship Specialty Start Date End Date Farnaz Pineda MD [address] [place] [address] PCP - General 10/26/12 documented as of this encounter
--- OUTSIDE RECORDS SUMMARY | 2024-06-07 19:43 | XMS_ITS | Encounter Summary ---
Author Organization [facility] [place] [address] Care Team Providers Care Movie Writer Name Role Phone Farnaz Pineda MD Primary Care Provider [phone] Reason for Visit * Physical Therapy (Routine) - Closed Specialty Diagnoses / Procedures Referred By Berta tavera Referred To Contact Physical Therapy Diagnoses SHELDON (stress urinary incontinence), male Bartolome Pike MD [facility] [address] [address] [place] [address] Referral ID Status Reason Start Date Expiration Date V isits Requested Visits Authorized [id number] Closed Evaluate and Treat 03/18/2022 03/18/2023 100 100 Encounter Details Date Type Department Care Team (Late st Contact Info) Description 08/31/2022 1:00 PM EST Office Visit Physical Therapy at [address] [place] [address] Alida Jacob, PT [facility] PHYSICAL MEDICINE & [place] [address] SHELDON (stress urinary incontinence), male Social History [...] Provider: Bartolome Pike MD Primary Insurance: Payor: [employer] [place] [employer] MEDICARE / Plan: [place] [employer] / Product Type: *No Product type* / [...] male documented in this encounter Care Teams Movie Writer Relationship Specialty Start Date End Date Farnaz Pineda MD [address] [place] [address] PCP - General 10/26/12 documented as of this encounter
--- OUTSIDE RECORDS SUMMARY | 2024-06-07 19:43 | XMS_ITS | Encounter Summary ---
Author Organization [facility] [place] [address] Care Team Providers Care Dental Coordinator Name Role Phone Farnaz Pineda MD Primary Care Provider [phone] Encounter Details Date Type Department Care Team (Late st Contact Info) Description 02/26/2021 Orders [place] [address] Elaina Ortiz, RN Malignant neoplasm [...] (Ultrasensitive ) <0.01 0.00 - 4.00 ng/mL [facility] Comment: PLEASE NOTE: The above reference interval is intended for healthy males with an intact prostate. Values within this reference interval may indicate recurrence in men who have undergone radical prostatectomy. Blood 02/26/2021 2:31 PM EDT 02/26/2021 3:00 PM EDT Narrative Resulting Agency Comment Spec In Lab Leonardo Barrios MD CHEMISTRY ORDERABL ES [facility] [place] [address] documented in this encounter Visit Diagnoses Diagnosis Malignant neoplasm of prostate documented in this encounter Care Teams Dental Coordinator Relationship Specialty Start Date End Date Farnaz Pineda MD [address] [place] [address] PCP - General 10/26/12 documented as of this encounter
--- OUTSIDE RECORDS SUMMARY | 2024-06-07 19:43 | XMS_ITS | Encounter Summary ---
Author Organization [facility] [place] [address] Care Team Providers Care Bending Machine Set Up Operator Name Role Phone Farnaz Pineda MD Primary Care Provider [phone] Encounter Details Date Type Department Care Team (Late st Contact Info) Description 07/16/2019 2:20 PM EDT [place] [address] Leonardo Barrios MD [facility] [place] [address] Malignant neoplasm of prostate Social History Tobacco [...] prostate documented in this encounter Care Teams Bending Machine Set Up Operator Relationship Specialty Start Date End Date Farnaz Pineda MD [address] [place] [address] PCP - General 10/26/12 documented as of this encounter
--- OUTSIDE RECORDS SUMMARY | 2024-06-07 19:43 | XMS_ITS | Encounter Summary ---
Author Organization [facility] [place] [address] Care Team Providers Care Fishing Vessel Operator Name Role Phone Farnaz Pineda MD Primary Care Provider [phone] Reason for Referral * Physical Therapy (Routine) - Closed Specialty Diagnoses / Procedures Referred By Berta tavera Referred To Contact Physical Therapy Diagnoses SHELDON (stress urinary incontinence), male Bartolome Pike MD [facility] [address] [address] [place] [address] Referral ID Status Reason Start Date Expiration Date V isits Requested Visits Authorized [id number] Closed Evaluate and Treat 03/18/2022 03/18/2023 100 100 Encounter Details Date Type Department Care Team (Late st Contact Info) Description 03/18/2022 4:20 PM EDT Office [place] [address] Bartolome Pike MD [facility] [place] [address] SHELDON (stress urinary incontinence), male [...] male documented in this encounter Care Teams Fishing Vessel Operator Relationship Specialty Start Date End Date Farnaz Pineda MD [address] [place] [address] PCP - General 10/26/12 documented as of this encounter
--- OUTSIDE RECORDS SUMMARY | 2024-06-07 19:43 | XMS_ITS | Encounter Summary ---
Author Organization [facility] [place] [address] Care Team Providers Care Drafter Assistant Name Role Phone Farnaz Pineda MD Primary Care Provider [phone] Reason for Visit * Reason Comments Medication Refill Encounter Details Date Type Department Care Team (Late st Contact Info) Description 01/22/2022 [place] [address] Leonardo Barrios MD [facility] [place] [address] Social History Tobacco Use Types Packs/Day Years [...] on filedocumented in this encounter Care Teams Drafter Assistant Relationship Specialty Start Date End Date Farnaz Pineda MD [address] [place] [address] PCP - General 10/26/12 documented as of this encounter
--- OUTSIDE RECORDS SUMMARY | 2024-06-07 19:43 | XMS_ITS | Encounter Summary ---
Author Organization [facility] [place] [address] Care Team Providers Care Clothespin Machine Operator Name Role Phone Farnaz Pineda MD Primary Care Provider [phone] Encounter Details Date Type Department Care Team [...] on filedocumented in this encounter Care Teams Clothespin Machine Operator Relationship Specialty Start Date End Date Farnaz Pineda MD [address] [place] [address] PCP - General 10/26/12 documented as of this encounter
--- OUTSIDE RECORDS SUMMARY | 2024-06-07 19:43 | XMS_ITS | Encounter Summary ---
Author Organization Formerly [facility], 1928–[address] [place] [address] Care Team Providers Care Web Coordinator Name Role Phone Farnaz Pineda MD Primary Care Provider [phone] Encounter Details Date Type Department Care Team (Latest Contact Info) Description 02/26/2021 2:00 PM EDT Laboratory Appointment Lab [address] [address] Malignant neoplasm of prostate Social [...] MD CHEMISTRY ORDERABL ES [facility] [place] [address] documented in this encounter Visit Diagnoses Diagnosis Malignant neoplasm of prostate documented in this encounter Care Teams Web Coordinator Relationship Specialty Start Date End Date Farnaz Pineda MD [address] [place] [address] PCP - General 10/26/12 documented as of this encounter
--- OUTSIDE RECORDS SUMMARY | 2024-06-07 19:43 | XMS_ITS | Encounter Summary ---
Author Organization Formerly [facility] [place] [address] Care Team Providers Care Legal Word Processor Name Role Phone Farnaz Pineda MD Primary Care Provider [phone] Reason for Visit * Physical Therapy (Routine) - Closed Specialty Diagnoses / Procedures Referred By Berta tavera Referred To Contact Physical Therapy Diagnoses SHELDON (stress urinary incontinence), male Bartolome Pike MD [facility] [place] [address] [facility] [address] [address] [place] [address] Referral ID Status Reason Start Date Expiration Date V isits Requested Visits Authorized [id number] Closed Evaluate and Treat 03/18/2022 03/18/2023 100 100 Encounter Details Date Type Department Care Team (Late st Contact Info) Description 10/19/2022 8:00 AM EST Office Visit Physical Therapy at [address] [place] [address] Alida Jacob, PT [facility] PHYSICAL MEDICINE & [place] [address] Muscle spasm Social History Tobacco Use Types [...] Provider: Bartolome Pike MD Primary Insurance: Payor: [employer] [place] MEDICARE / Plan: [place] [facility] Diaries / Product Type: *No Product type* / [...] using zinc oxide every day -met Goals: longterm goals (3 months) 1. Patient to be [...] muscle documented in this encounter Care Teams Legal Word Processor Relationship Specialty Start Date End Date Farnaz Pineda MD [address] [place] [address] PCP - General 10/26/12 documented as of this encounter
--- OUTSIDE RECORDS SUMMARY | 2024-06-07 19:43 | XMS_ITS | Encounter Summary ---
Author Organization Formerly [facility] [place] [address] Care Team Providers Care Accounts Administrator Name Role Phone Farnaz Pineda MD Primary Care Provider [phone] Encounter Details Date Type Department Care Team [...] on filedocumented in this encounter Care Teams Accounts Administrator Relationship Specialty Start Date End Date Farnaz Pineda MD [address] [place] [address] PCP - General 10/26/12 documented as of this encounter
--- OUTSIDE RECORDS SUMMARY | 2024-06-07 19:43 | XMS_ITS | Encounter Summary ---
Author Organization [facility] [place] [address] Care Team Providers Care Composition Tile Layer Name Role Phone Farnaz Pineda MD Primary Care Provider [phone] Encounter Details Date Type Department Care Team (Late st Contact Info) Description 02/26/2021 3:00 PM EDT [place] [address] Leonardo Barrios MD [facility] [place] [address] Malignant neoplasm of prostate Social History Tobacco [...] metal AVR. ?? 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
--- OUTSIDE RECORDS SUMMARY | 2024-06-07 19:43 | XMS_ITS | Encounter Summary ---
Author Organization [facility] [place] [address] Care Team Providers Care Watch Case Polisher Name Role Phone Farnaz Pineda MD Primary Care Provider [phone] Encounter Details Date Type Department Care Team [...] on filedocumented in this encounter Care Teams Watch Case Polisher Relationship Specialty Start Date End Date Farnaz Pineda MD [address] [place] [address] PCP - General 10/26/12 documented as of this encounter
--- OUTSIDE RECORDS SUMMARY | 2024-06-07 19:43 | XMS_ITS | Encounter Summary ---
Author Organization [facility] [place] [address] Care Team Providers Care Cosmetic Counselor Name Role Phone Farnaz Pineda MD Primary Care Provider [phone] Encounter Details Date Type Department Care Team (Late st Contact Info) Description 03/23/2022 10:40 AM EDT TH Visit (TeleHealth) [place] [address] Leonardo Barrios MD [facility] [place] [address] Malignant neoplasm of prostate Social History Tobacco [...] of clinically high risk prostate cancer (biopsy [place] 4+5=9, PSA 7.1, cT1c). He underwent NNS [...] metal AVR. ?? 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
--- OUTSIDE RECORDS SUMMARY | 2024-06-07 19:43 | XMS_ITS | Encounter Summary ---
Author Organization [facility] [place] [address] Care Team Providers Care Tree Shear Operator Name Role Phone Farnaz Pineda MD Primary Care Provider [phone] Reason for Visit * Physical Therapy (Routine) - Closed Specialty Diagnoses / Procedures Referred By Berta tavera Referred To Contact Physical Therapy Diagnoses SHELDON (stress urinary incontinence), male Bartolome Pike MD [facility] [address] [facility] [address] [place] [address] Referral ID Status Reason Start Date Expiration Date V isits Requested Visits Authorized [id number] Closed Evaluate and Treat 03/18/2022 03/18/2023 100 100 Encounter Details Date Type Department Care Team (Late st Contact Info) Description 07/06/2022 2:00 PM EDT Office Visit Physical Therapy at [address] [place] [address] Lolita Jacob, PT [facility] PHYSICAL MEDICINE & [place] [address] SHELDON (stress urinary incontinence), male Social History [...] Provider: Bartolome Pike MD Primary Insurance: Payor: [employer] [facility] MEDICARE / Plan: [place] [employer] / Product Type: *No Product type* / [...] by using zinc oxide every day 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 Patient to be [...] male documented in this encounter Care Teams Tree Shear Operator Relationship Specialty Start Date End Date Farnaz Pineda MD [address] [place] [address] PCP - General 10/26/12 documented as of this encounter
--- OUTSIDE RECORDS SUMMARY | 2024-06-07 19:44 | XMS_ITS | Encounter Summary ---
Author Organization [facility] [place] [address] Care Team Providers Care Accounts Payable Specialist Name Role Phone Farnaz Pineda MD Primary Care Provider [phone] Encounter Details Date Type Department Care Team (Late st Contact Info) Description 01/19/2018 12:40 PM EDT Laboratory Appointment Lab [address] [place] [address] Elevated PSA Social History Tobacco [...] (Ultrasensitiv e) <0.01 0.00 - 4.00 ng/mL [facility] Blood specimen (specimen) 01/19/2018 1:09 PM EDT 01/19/2018 1:18 PM EDT Narrative Resulting Agency Comment Spec In Lab Leonardo Barrios MD CHEMISTRY ORDERABL ES [facility] [place] [address] documented in this encounter Visit Diagnoses Diagnosis Elevated PSA Elevated prostate specific antigen (PSA) documented in this encounter Care Teams Accounts Payable Specialist Relationship Specialty Start Date End Date Farnaz Pineda MD [address] [place] [address] PCP - General 10/26/12 documented as of this encounter
--- OUTSIDE RECORDS SUMMARY | 2024-06-07 19:44 | XMS_ITS | Encounter Summary ---
Author Organization Formerly [facility] [place] [address] Care Team Providers Care Employment Counselor Name Role Phone Farnaz Pineda MD Primary Care Provider Encounter Details Date Type Department Care Team (Late st Contact Info) Description 02/05/2013 [place] [address] Ronna Cabrera PA [facility] [place] [address] Social History Tobacco Use Types Packs/Day Years [...] on filedocumented in this encounter Care Teams Employment Counselor Relationship Specialty Start Date End Date Farnaz Pineda MD [address] [place], [place] [address] PCP - General 10/26/12 documented as of this encounter
--- OUTSIDE RECORDS SUMMARY | 2024-06-07 19:44 | XMS_ITS | Encounter Summary ---
Author Organization [facility] [place] [address] Care Team Providers Care Personal Vehicle Advisor Name Role Phone Farnaz Pineda MD Primary Care Provider [phone] Encounter Details Date Type Department Care Team (Late st Contact Info) Description 03/07/2013 9:05 AM EDT [place] [address] Ross Madrid MD [facility] [place] [address] Prostate cancer (Primary Dx) Discharge Disposition: Home [...] prostate documented in this encounter Care Teams Personal Vehicle Advisor Relationship Specialty Start Date End Date Farnaz Pineda MD [address] [place] [address] PCP - General 10/26/12 documented as of this encounter
--- OUTSIDE RECORDS SUMMARY | 2024-06-07 19:44 | XMS_ITS | Encounter Summary ---
Author Organization [facility] [place] [address] Care Team Providers Care Fire Eater Name Role Phone Farnaz Pineda MD Primary Care Provider [phone] Encounter Details Date Type Department Care Team (Late st Contact Info) Description 09/13/2013 12:30 PM EST Office [place] [address] Ross Madrid MD [facility] [place] [address] Prostate cancer (Primary Dx) Discharge Disposition: Home [...] of clinically high risk prostate cancer (biopsy [place] 4+5=9, PSA 7.1, cT1c). He underwent RALRP/PLND [...] a metal AVR. His path revealed pT3a [place] 3+4=7 disease with tertiary 5, negative margins, [...] e) <0.03 0.00 - 4.00 ng/mL [facility] Blood specimen (specimen) 09/13/2013 11:54 AM EST 09/13/2013 12:08 PM EST Narrative Resulting Agency Comment Spec In Lab Ross Madrid MD CHEMISTRY ORDERABLES [facility] documented in this encounter Visit Diagnoses Diagnosis Prostate cancer- Primary Malignant neoplasm of prostate documented in this encounter Care Teams Fire Eater Relationship Specialty Start Date End Date Farnaz Pineda MD [address] [place] [address] PCP - General 10/26/12 documented as of this encounter
--- OUTSIDE RECORDS SUMMARY | 2024-06-07 19:44 | XMS_ITS | Encounter Summary ---
Author Organization [facility] [place] [address] Care Team Providers Care Registered Diet Technician Name Role Phone Farnaz Pineda MD Primary Care Provider [phone] Encounter Details Date Type Department Care Team (Late st Contact Info) Description 12/13/2013 12:30 PM EST Office [place] [address] Ross Madrid MD [facility] [place] [address] Elevated PSA (Primary Dx); Male erectile dysfunction [...] of clinically high risk prostate cancer (biopsy [place] 4+5=9, PSA 7.1, cT1c). He underwent NNS [...] In Lab Ross Madrid MD CHEMISTRY ORDERABLES [facility] [email or web address] documented in this encounter Visit Diagnoses Diagnosis Elevated PSA- Primary Elevated prostate specific antigen (PSA) Male erectile dysfunction Impotence of organic origin documented in this encounter Care Teams Registered Diet Technician Relationship Specialty Start Date End Date Farnaz Pineda MD [address] [place] [address] PCP - General 10/26/12 documented as of this encounter
--- OUTSIDE RECORDS SUMMARY | 2024-06-07 19:44 | XMS_ITS | Encounter Summary ---
Author Organization [facility] [place] [address] Care Team Providers Care Burlap Worker Name Role Phone Farnaz Pineda MD Primary Care Provider [phone] Encounter Details Date Type Department Care Team (Latest Contact Info) Description 03/17/2018 1:40 PM EDT [place] [address] Bartolome Bruce MD [facility] [place] [address] Left groin mass; Erectile dysfunction following radical [...] 40 minutes of our appointment in extensive [id number] counseling regarding his ED. I will keep [...] 03:55 pm) PATIENT INFO: ID #: ? [id number] ?: ??[birth year] (68 yrs) Name: ? DILLAN AL ? Visit Date: 03/21/2018 03:01 pm PERFORMED BY: Performed By: ? Farnaz Jonas RDMS Attending: ?Anita Noriega MD Referred By: ?BARTOLOME Botello GROSS Location: ? [place] SERVICE(S) PROVIDED: ??UEXTLMTL - Extremity Limited Non Vascular - Left ?[id number] ??- [id number] INDICATIONS: ??? L inguinal hernia --------- FINDINGS: --------- Title: ? Ultrasound Report Procedure Note Anita Lea MD - 03/21/2018 Ultrasound Report (Signed Final 03/21/2018 03:55 pm) PATIENT INFO: ID #: [id number] : 50 (68 yrs) Name: DILLAN AL Visit Date: 03/21/2018 03:01 pm PERFORMED BY: Performed By: Farnaz Jonas RDMS Attending: Anita Noriega MD Referred By: BARTOLOME BRUCE Location: [place] SERVICE(S) PROVIDED: UEXTLMTL - Extremity Limited Non Vascular - Left [id number] - [id number] INDICATIONS: ? L inguinal hernia --------- FINDINGS: [...] mass documented in this encounter Care Teams Burlap Worker Relationship Specialty Start Date End Date Farnaz Pineda MD [address] [place] [address] PCP - General 10/26/12 documented as of this encounter
--- OUTSIDE RECORDS SUMMARY | 2024-06-07 19:44 | XMS_ITS | Encounter Summary ---
Author Organization [facility] Address [facility] [place] [address] Care Team Providers Care Business Analyst Project Manager Name Role Phone Farnaz Pineda MD Primary Care Provider [phone] Reason for Referral * Physical Therapy (Routine) - Closed Specialty Diagnoses / Procedures Referred By Berta tavera Referred To Contact Physical Therapy Diagnoses Stress incontinence, male Ross Madrid MD [facility] [place] [address] [address] [place] [address] Referral ID Status Reason Start Date Expiration Date V isits Requested Visits Authorized [id number] Closed Evaluate and Treat 08/23/2016 08/23/2017 1 1 Encounter Details Date Type Department Care Team (Late st Contact Info) Description 08/23/2016 [place] [phone] Ross Madrid MD [facility] [place] [address] Social History Tobacco Use Types [...] male documented in this encounter Care Teams Business Analyst Project Manager Relationship Specialty Start Date End Date Farnaz Pineda MD [address] [place] [address] PCP - General 10/26/12 documented as of this encounter
--- OUTSIDE RECORDS SUMMARY | 2024-06-07 19:44 | XMS_ITS | Encounter Summary ---
Author Organization [facility] [place] [address] Care Team Providers Care Funeral Prearrangement Counselor Name Role Phone Farnaz Pineda MD Primary Care Provider [phone] Encounter Details Date Type Department Care Team (Late st Contact Info) Description 02/08/2013 3:40 PM EDT [place] [address] Ross Madrid MD [facility] [address] Hematuria (Primary Dx) Discharge Disposition: Home Social [...] EDT IR Procedure Note ?? Accession Number: [id number] ?? Procedure: LLQ abscess drain injection ?? [...] - 02/16/2013 IR Procedure Note Accession Number: [id number] Procedure: LLQ abscess drain injection History/Indication: 62 [...] unspecified documented in this encounter Care Teams Funeral Prearrangement Counselor Relationship Specialty Start Date End Date Farnaz Pineda MD [address] [place] [address] PCP - General 10/26/12 documented as of this encounter
--- OUTSIDE RECORDS SUMMARY | 2024-06-07 19:44 | XMS_ITS | Encounter Summary ---
Author Organization [facility] [address] [facility] [address] Care Team Providers Care Delivery Truck Driver Heavy Name Role Phone Farnaz Pineda MD Primary Care Provider [phone] Encounter Details Date Type Department Care Team (Latest Contact Info) Description 01/26/2016 2:00 PM EDT Laboratory [place] [address] Malignant neoplasm of prostate Social [...] (Ultrasensitiv e) <0.03 0.00 - 4.00 ng/mL [facility] Blood specimen (specimen) 01/26/2016 2:09 PM EDT 01/26/2016 2:30 PM EDT Narrative Resulting Agency Comment Spec In Lab Ross Madrid MD CHEMISTRY ORDERABLES [facility] [place] [address] documented in this encounter Visit Diagnoses Diagnosis Malignant neoplasm of prostate documented in this encounter Care Teams Delivery Truck Driver Heavy Relationship Specialty Start Date End Date Farnaz Pineda MD [address] [place] [address] PCP - General 10/26/12 documented as of this encounter
--- OUTSIDE RECORDS SUMMARY | 2024-06-07 19:44 | XMS_ITS | Encounter Summary ---
Author Organization [facility] [place] [place] [address] Care Team Providers Care Plug Assembler Name Role Phone Farnaz Pineda MD Primary Care Provider [phone] Encounter Details Date Type Department Care Team (Late st Contact Info) Description 07/20/2018 Telephone Urology at [address] [address] Soledad Briscoe LPN Social History [...] on filedocumented in this encounter Care Teams Plug Assembler Relationship Specialty Start Date End Date Farnaz Pineda MD [address] [place] [address] PCP - General 10/26/12 documented as of this encounter
--- OUTSIDE RECORDS SUMMARY | 2024-06-07 19:44 | XMS_ITS | Encounter Summary ---
Author Organization [facility] [place] [address] Care Team Providers Care Medical Investigator Name Role Phone Farnaz Pineda MD Primary Care Provider [phone] Encounter Details Date Type Department Care Team (Late st Contact Info) Description 01/19/2018 1:40 PM EDT [place] [address] Leonardo Barrios MD [facility] [place] [address] Malignant neoplasm of prostate Social History Tobacco [...] metal AVR. ?? His path revealed pT3a [place] 3+4=7 disease with tertiary 5, negative margins, [...] documented in this encounter Care Teams Medical Investigator Relationship Specialty Start Date End Date Farnaz Pineda MD [address] [place] [address] PCP - General 10/26/12 documented as of this encounter
--- OUTSIDE RECORDS SUMMARY | 2024-06-07 19:44 | XMS_ITS | Encounter Summary ---
Author Organization [facility] [place] [address] Care Team Providers Care Dairy Processing Supervisor Name Role Phone Farnaz Pineda MD Primary Care Provider [phone] Encounter Details Date Type Department Care Team (Latest Contact Info) Description 02/08/2013 11:05 AM EDT - 02/08/2013 11:59 PM EDT Hospital [place] [address] CLINIC, Ermias Roberts MD [facility] [place] [address] S/P AVR (aortic valve replacement) Discharge Disposition: [...] mg documented in this encounter Care Teams Dairy Processing Supervisor Relationship Specialty Start Date End Date Farnaz Pineda MD [address] [place] [address] PCP - General 10/26/12 documented as of this encounter
--- OUTSIDE RECORDS SUMMARY | 2024-06-07 19:44 | XMS_ITS | Encounter Summary ---
Author Organization [facility] [address] Care Team Providers Care Data Mining Analyst Name Role Phone Farnaz Pineda MD Primary Care Provider [phone] Encounter Details Date Type Department Care Team (Late st Contact Info) Description 12/12/2013 [place] [address] Ross Madrid MD [facility] [place] [address] Elevated PSA (Primary Dx) Social History Tobacco [...] (Ultrasensitiv e) <0.03 0.00 - 4.00 ng/mL [facility] Blood specimen (specimen) 12/13/2013 11:47 AM EST 12/13/2013 11:50 AM EST Narrative Resulting Agency Comment Spec In Lab Ross Madrid MD CHEMISTRY ORDERABLES Performing Organization Address City/State/[facility] Co tn Phone Number [facility] documented in this encounter Visit Diagnoses Diagnosis Elevated PSA- Primary Elevated prostate specific antigen (PSA) documented in this encounter Care Teams Data Mining Analyst Relationship Specialty Start Date End Date Farnaz Pineda MD [address] [place] [address] PCP - General 10/26/12 documented as of this encounter
--- OUTSIDE RECORDS SUMMARY | 2024-06-07 19:44 | XMS_ITS | Encounter Summary ---
Author Organization [facility] [place] [address] Care Team Providers Care Rn Office Name Role Phone Farnaz Pineda MD Primary Care Provider [phone] Encounter Details Date Type Department Care Team (Late st Contact Info) Description 12/19/2015 Orders [place] [address] Ross Madrid MD [facility] [place] [address] Malignant neoplasm of prostate (Primary Dx) Social [...] MD CHEMISTRY ORDERABLES [facility] [place] [address] documented in this encounter Visit Diagnoses Diagnosis Malignant neoplasm of prostate- Primary documented in this encounter Care Teams Rn Office Relationship Specialty Start Date End Date Farnaz Pineda MD [address] [place] [address] PCP - General 10/26/12 documented as of this encounter
--- OUTSIDE RECORDS SUMMARY | 2024-06-07 19:44 | XMS_ITS | Encounter Summary ---
Author Organization [facility] [place] [address] Care Team Providers Care Pharmacy Technician Name Role Phone Farnaz Pineda MD Primary Care Provider [phone] Encounter Details Date Type Department Care Team (Late st Contact Info) Description 07/12/2016 [place] [address] Ross Madrid MD [facility] [place] [place] [address] Social History Tobacco Use Types Packs/Day Years [...] on filedocumented in this encounter Care Teams Pharmacy Technician Relationship Specialty Start Date End Date Farnaz Pineda MD [address] [place] [address] PCP - General 10/26/12 documented as of this encounter
--- OUTSIDE RECORDS SUMMARY | 2024-06-07 19:44 | XMS_ITS | Encounter Summary ---
Author Organization [facility] [place] [address] Care Team Providers Care Sole Splitter Name Role Phone Farnaz Pineda MD Primary Care Provider [phone] Encounter Details Date Type Department Care Team (Late st Contact Info) Description 01/13/2015 Orders [place] [address] Ross Madrid MD [facility] [place] [address] Prostate cancer Social History Tobacco Use Types [...] (Ultrasensiti ve) <0.03 0.00 - 4.00 ng/mL [facility] Prostate Specific Antigen, Free <0.1 ng/mL [facility] PSA % Free Not Calculated [facility] Comment: Probability of finding SUPERVISOR FUR FLOOR WORKER on needle biopsy by age in years: [...] prostate documented in this encounter Care Teams Sole Splitter Relationship Specialty Start Date End Date Farnaz Pineda MD [address] [place] [address] PCP - General 10/26/12 documented as of this encounter
--- OUTSIDE RECORDS SUMMARY | 2024-06-07 19:44 | XMS_ITS | Encounter Summary ---
Author Organization [facility] [place] [address] Care Team Providers Care Bus Repair Supervisor Name Role Phone Farnaz Pineda MD Primary Care Provider [phone] Encounter Details Date Type Department Care Team (Late st Contact Info) Description 07/28/2018 Telephone Urology at [address] [address] Soledad Briscoe LPN Social History [...] on filedocumented in this encounter Care Teams Bus Repair Supervisor Relationship Specialty Start Date End Date Farnaz Pineda MD [address] [place] [address] PCP - General 10/26/12 documented as of this encounter
--- OUTSIDE RECORDS SUMMARY | 2024-06-07 19:44 | XMS_ITS | Encounter Summary ---
Author Organization [facility] [place] [address] Care Team Providers Care Regulation Supervisor Name Role Phone Farnaz Pineda MD Primary Care Provider [phone] Reason for Visit * Reason Comments Follow-up Encounter Details Date Type Department Care Team (Late st Contact Info) Description 03/02/2013 1:00 PM EDT [place] [address] CLINIC, Ross De León MD [facility] [place] [address] Abscess (Primary Dx) Discharge Disposition: Home Social [...] site documented in this encounter Care Teams Regulation Supervisor Relationship Specialty Start Date End Date Farnaz Pineda MD [address] [place] [address] PCP - General 10/26/12 documented as of this encounter
--- OUTSIDE RECORDS SUMMARY | 2024-06-07 19:44 | XMS_ITS | Encounter Summary ---
Author Organization [facility] [place] [address] Care Team Providers Care Loan Processor Name Role Phone Cameron Pineda MD Primary Care Provider [phone] Encounter Details Date Type Department Care Team (Late st Contact Info) Description 03/02/2013 9:08 AM EDT - 03/02/2013 11:59 PM EDT Hospital [place] [address] Abscess Social History Tobacco Use [...] vein every 4 hours for 30 days. 6[address]46 mL 0 02/13/2013 03/15/2013 BUDESONIDE/FORMOTEROL FUMARATE (SYMBICORT [...] Sethi RN - 03/01/2013 1:32 PM EDT [facility] Name: DILLAN AL Date of : 1950 AGE 63 y.o. Address: [address] [place] [phone] (home) [phone] (work) Mobile: Telephone Information: Referring Provider: Ross [...] ASSISTED performed by Ross Madrid MD at [facility] MAIN OR ??? Lap, pelvic lymphadenectomy 11/20/2012 LAPAROSCOPY,WITH BILATERAL TOTAL PELVIC LYMPHADENECTOMY, ROBOTIC performed by Ross Madrid MD at [facility] MAIN OR ? ? Cystourethroscopy w/irrig & evac clots 12/27/2012 CYSTO, IRRIGATION & EVACUATION OF CLOTS performed by Ross Madrid MD at [facility] MAIN OR ??? Ct retroperitoneal abscess drain 01/24/2013 Date/Procedure Comments: 01-04-13 IVC filter Versed 2.5 mg iv, fentanyl 125 mcg iv, ancef 1 gram iv 01/24/2013 Pelvic embolization and then CT guided pelvic drain placement Fentanyl 125 mcg/iv duglas gttstarted (patient changed to ICU status mid-case), 2 UNITS ffp, 2 UNITS rbcS, fluid bolus then Levo started by AUTOMOTIVE PAINTER 02/08/13 Sinogram No meds 5/10/13 sinogram No [...] has been informed that they require a medical driver to drive them home after this procedure. In the absence of a medical driver, IR will not be able to [...] ASSISTED performed by Ross Madrid MD at [facility] MAIN OR ??? Lap, pelvic lymphadenectomy 11/20/2012 LAPAROSCOPY,WITH BILATERAL TOTAL PELVIC LYMPHADENECTOMY, ROBOTIC performed by Ross Madrid MD at [facility] MAIN OR ? ? Cystourethroscopy w/irrig & evac clots 12/27/2012 CYSTO, IRRIGATION & EVACUATION OF CLOTS performed by Ross Madrid MD at [facility] MAIN OR ??? Ct retroperitoneal abscess drain 01/24/2013 No Known Allergies Current Outpatient Prescriptions on File Prior to Encounter Medication Sig Dispense Refill ??? ciprofloxacin (CIPRO) 500 mg tablet Take 1 tablet by mouth 2 times daily for 14 days. 28 tablet1 ??? penicillin g potassium 4 million units/100 mL PREMIX Inject 100 mLs into the vein every 4 hoursfor 30 days. [address] mL 0 ??? BUDESONIDE/FORMOTEROL FUMARATE (SYMBICORT INHL) [...] ALL DRAINAGE PROCEDURES IR Procedure Note [id number] Procedure: LLQ pelvic drain injection History/indication: 62 [...] PM EDT IR Procedure Note ?? A [id number] ?? Procedure: LLQ pelvic drain injection ?? [...] MD - 03/03/2013 IR Procedure Note A [id number] Procedure: LLQ pelvic drain injection History/indication: 62 [...] mLs documented in this encounter Care Teams Loan Processor Relationship Specialty Start Date End Date Cameron Pineda MD [address] [place] [address] PCP - General 10/26/12 documented as of this encounter
--- OUTSIDE RECORDS SUMMARY | 2024-06-07 19:44 | XMS_ITS | Encounter Summary ---
Author Organization [facility] [place] [address] Care Team Providers Care Manager Client Service Name Role Phone Farnaz Pineda MD Primary Care Provider [phone] Encounter Details Date Type Department Care Team (Late st Contact Info) Description 02/16/2013 11:50 AM EDT [place] [phone] Ross Madrid MD [facility] [place] [address] Abscess (Primary Dx) Discharge Disposition: Home Social [...] PM EDT IR Procedure Note ?? A [id number] ?? Procedure: LLQ pelvic drain injection ?? [...] MD - 03/03/2013 IR Procedure Note A [id number] Procedure: LLQ pelvic drain injection History/indication: 62 [...] site documented in this encounter Care Teams Manager Client Service Relationship Specialty Start Date End Date Farnaz Pineda MD [address] [place] [address] PCP - General 10/26/12 documented as of this encounter
--- OUTSIDE RECORDS SUMMARY | 2024-06-07 19:44 | XMS_ITS | Encounter Summary ---
Author Organization [facility] [place] [address] Care Team Providers Care House Admin Name Role Phone Farnaz Pineda MD Primary Care Provider [phone] Encounter Details Date Type Department Care Team (Latest Contact Info) Description 07/19/2018 2:20 PM EDT [place] [phone] Bartolome Pike MD [facility] [place] [address] Erectile dysfunction following radical prostatectomy Social History [...] Erectile dysfunction following radical prostatectomy [place]URE [place] [place] Routine 07/19/2018 5:04 PM EDT Erectile dysfunction [...] Gram Positive organisms , probable contaminant(A ) [facility] Urine specimen obtained by clean catch procedure (specimen) 07/19/2018 5:06 PM EDT 07/19/2018 5:06 PM EDT Narrative Resulting Agency Comment Spec In Lab Bartolome Pike MD MICROBIOLOGY - GENER AL ORDERABLES [facility] [place] [address] * (ABNORMAL) Staph aureus/MRSA Culture Screen Nasal (07/19/2018 5:04 PM EDT) Staphylococcus Screening Culture Staphylococcus aureus isolated(A) [facility] Organism Staphylococcus aureus(A) [facility] Specimen from nose (specimen) 07/19/2018 [...] Sensitive Comment:Gentamicin i s not appropriate for Tucker-therapy. Staphylococcus aureus Levofloxacin MICROSCAN METHOD Sensitive Staphylococcus [...] Pike MD MICROBIOLOGY - GENER AL ORDERABLES [facility] [place] [address] * (ABNORMAL) Differential, Automated (07/19/2018 3:25 PM EDT) Neutrophil % 64.1 % [facility] Neutrophil Absolute 5.12 1.70 - 6.10 x10(3)/[facility] Lymph % 16.8 % [facility] Lymphocytes Abs 1.3 0.9 - 3.2 x10(3)/[facility] Monocyte % 9.5 % [facility] Monocyte Abs 0.8 0.3 - 0.9 x10(3)/[facility] Eos % 7.8 % [facility] Eosinophils Abs 0.6(H) 0.0 - 0.4 x10(3)/[facility] Basophil % 1.3 % [facility] Baso Absolute 0.1 0.0 - 0.1 x10(3)/[facility] Immature Gran % 0.50 % [facility] Comment: Immature granulocytes(IG's)percentage and absolute count will include metamyelocytes, myelocytes, and promyelocytes. Blood smears from CBCs yielding IG's will be scanned manually for concordance. If this scan disagrees with the automated IG or if promyelocytes are noted, a manual differential will be performed. Immature Gran Absolute 0.04 0.00 - 0.04 x10(3)/[facility] Blood specimen (specimen) 07/19/2018 3:25 PM EDT 07/19/2018 3:42 PM EDT Narrative Resulting Agency Comment Spec In Lab Bartolome Pike MD HEMATOLOGY ORDERABLE S [facility] [place] [address] * (ABNORMAL) Hemogram (07/19/2018 3:25 PM EDT) White Blood Cell 8.0 4.0 - 9.5 x10(3)/[facility] Red Blood Cell 4.80 4.58 - 5.54 x10(6)/mc L [facility] Hemoglobin 14.5 13.7 - 16.5 gm/dL [facility] Hematocrit 45.9 40.5 - 48.5 % [facility] Mean Cell Volume 95.6(H) 82.9 - 93.1 fL [facility] Mean Cell Hemoglobin 30.2 27.5 - 32.1 pg [facility] Mean Cell Hemoglobin Concentration 31.6(L) 32.0 - 35.7 gm/dL [facility] Platelet 249 145 - 357 x10(3)/mc L [facility] RDW Standard Deviation 56.1(H) 36.0 - 45.0 [facility] RDW coefficient of variation 15.7(H) 11.4 - 13.8 % [facility] Mean Platelet Volume 10.0 7.6 - 12.9 [facility] NRBC% auto 0.0 % [facility] NRBC Absolute 0.000 0.000 - 0.000 x10(3)/mc L [facility] Blood specimen (specimen) 07/19/2018 3:25 PM EDT 07/19/2018 3:42 PM EDT Narrative Resulting Agency Comment Spec In Lab Bartolome Pike MD HEMATOLOGY ORDERABLE S [facility] [place] [address] * (ABNORMAL) Basic Metabolic Panel (non-fasting) (07/19/2018 3:25 PM EDT) Glucose 89 65 - 199 mg/dL [facility] Comment:Diabetes: >=200 mg/d L plus symptoms Blood Urea Nitrogen 24(H) 10 - 20 mg/dL [facility] Creatinine 1.24 0.80 - 1.50 mg/dL [facility] Sodium 141 135 - 145 mmol/L [facility] Potassium 4.6 3.5 - 5.0 mmol/L [facility] Comment: Please note: ??Patients with WBC >100,000 may have falsely elevated Potassium levels. ??For accurate Potassium quantification in these patients send serum separator tube (gold top) for subsequent determinations. ??Contact the Clinical Chemistry Laboratory if there are any questions. Chloride 102 98 - 107 mmol/L [facility] Carbon Dioxide 25 22 - 31 mmol/L [facility] Anion Gap 14 5 - 15 mmol/L [facility] Calcium 9.6 8.5 - 10.5 mg/dL [facility] Est Glomerular Filtration Rate 59(L) >=60 mL/min/1. 73 m?? [facility] Comment: The eGFR was calculated using the CKD-EPI equation. As with all creatinine based estimates of kidney function, eGFR values calculated with the CKD-EPI equation are not accurate in patients with acute kidney failure, extremes of body mass or the acutely ill. [email or web address]/[facility] [place] [place] eGFR 69 >=60 mL/min/1. 73 m?? [facility] Comment: The eGFR was calculated using the CKD-EPI equation. As with all creatinine based estimates of kidney function, eGFR values calculated with the CKD-EPI equation are not accurate in patients with acute kidney failure, extremes of body mass or the acutely ill. [email or web address] Blood specimen (specimen) 07/19/2018 3:25 PM EDT 07/19/2018 3:42 PM EDT Narrative Resulting Agency Comment Spec In Lab Bartolome Pike MD CHEMISTRY ORDERABLES [facility] [place] [address] * EKG 12 Lead (07/19/2018 3:07 PM EDT) Ventricular rate 68 BPM MUSE SYSTEM Atrial Rate 68 BPM MUSE SYSTEM P-R Interval 176 ms MUSE SYSTEM QRS Duration 106 ms MUSE SYSTEM Q-T Interval 416 ms MUSE SYSTEM QTC Calculated (Bezet) 442 ms MUSE SYSTEM Calculated P [place] 36 degrees MUSE SYSTEM Calculated R [place] 0 degrees MUSE SYSTEM Calculated T [place] 80 degrees MUSE SYSTEM INTERPRETATION Normal sinus [...] origin documented in this encounter Care Teams House Admin Relationship Specialty Start Date End Date Farnaz Pineda MD [address] [place] [address] PCP - General 10/26/12 documented as of this encounter
--- OUTSIDE RECORDS SUMMARY | 2024-06-07 19:44 | XMS_ITS | Encounter Summary ---
Author Organization [facility] [place] [address] Care Team Providers Care Marketing Communications Coordinator Name Role Phone Farnaz Pineda MD Primary Care Provider [phone] Encounter Details Date Type Department Care Team (Late st Contact Info) Description 01/26/2016 3:00 PM EDT [place] [phone] Ross Madrid MD [facility] [place] [address] Malignant neoplasm of prostate Social History Tobacco [...] prostate documented in this encounter Care Teams Marketing Communications Coordinator Relationship Specialty Start Date End Date Farnaz Pineda MD [address] [place] [address] PCP - General 10/26/12 documented as of this encounter
--- OUTSIDE RECORDS SUMMARY | 2024-06-07 19:44 | XMS_ITS | Encounter Summary ---
Author Organization [facility] [place] [address] Care Team Providers Care Test Specialist Name Role Phone Farnaz Pineda MD Primary Care Provider [phone] Encounter Details Date Type Department Care Team (Late st Contact Info) Description 12/23/2017 Orders [place] [phone] Leonardo Barrios MD [facility] [place] [address] Elevated PSA Social History Tobacco Use Types [...] (Ultrasensitiv e) <0.01 0.00 - 4.00 ng/mL [facility] Blood specimen (specimen) 01/19/2018 1:09 PM EDT 01/19/2018 1:18 PM EDT Narrative Resulting Agency Comment Spec In Lab Leonardo Barrios MD CHEMISTRY ORDERABL ES [facility] [place] [address] documented in this encounter Visit Diagnoses Diagnosis Elevated PSA Elevated prostate specific antigen (PSA) documented in this encounter Care Teams Test Specialist Relationship Specialty Start Date End Date Farnaz Pineda MD [address] [place] [address] PCP - General 10/26/12 documented as of this encounter
--- OUTSIDE RECORDS SUMMARY | 2024-06-07 19:44 | XMS_ITS | Encounter Summary ---
Author Organization [facility] [place] [address] Care Team Providers Care Data Analyst Etl Developer Name Role Phone Farnaz Pineda MD Primary Care Provider Reason for Visit * Reason Comments Follow-up Encounter Details Date Type Department Care Team (Late st Contact Info) Description 02/27/2013 12:00 PM EDT Follow-[place] [phone] Cely Baires MD 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 No fevers, chills, ns, abdominal pain. Abdominal [...] Section of Infectious Disease and International Health [phone] minutes were spent in this face to face encounter, 20 minutes counseling about pelvic abscess mgmt. documented in this encounter Plan of Treatment Not on file documented as of this encounter Visit Diagnoses Diagnosis Abdominal abscess- Primary Peritoneal abscess documented in this encounter Care Teams Data Analyst Etl Developer Relationship Specialty Start Date End Date Farnaz Pineda MD [address] [place] [address] PCP - General 10/26/12 documented as of this encounter
--- OUTSIDE RECORDS SUMMARY | 2024-06-07 19:44 | XMS_ITS | Encounter Summary ---
Author Organization [facility] [place] [address] Care Team Providers Care Export Freight Clerk Name Role Phone Farnaz Pineda MD Primary Care Provider Encounter Details Date Type Department Care Team (Late st Contact Info) Description 03/08/2013 Telephone Cardiology at [address] [address] Kathleen Jonas, RN Social History [...] on filedocumented in this encounter Care Teams Export Freight Clerk Relationship Specialty Start Date End Date Farnaz Pineda MD [address] [place] [address] PCP - General 10/26/12 documented as of this encounter
--- OUTSIDE RECORDS SUMMARY | 2024-06-07 19:44 | XMS_ITS | Encounter Summary ---
Author Organization [facility] [place] [address] Care Team Providers Care Green Tire Inspector Name Role Phone Farnaz Pineda MD Primary Care Provider [phone] Encounter Details Date Type Department Care Team (Late st Contact Info) Description 01/29/2019 [place] [phone] Terrence Dooley LPN Elevated PSA Social History [...] (Ultrasensitiv e) <0.01 0.00 - 4.00 ng/mL [facility] Blood specimen (specimen) 07/16/2019 1:33 PM EDT 07/16/2019 1:37 PM EDT Narrative Resulting Agency Comment Spec In Lab Leonardo Barrios MD CHEMISTRY ORDERABL ES [facility] [place] [address] documented in this encounter Visit Diagnoses Diagnosis Elevated PSA Elevated prostate specific antigen (PSA) documented in this encounter Care Teams Green Tire Inspector Relationship Specialty Start Date End Date Farnaz Pineda MD [address] [place] [address] PCP - General 10/26/12 documented as of this encounter
--- OUTSIDE RECORDS SUMMARY | 2024-06-07 19:44 | XMS_ITS | Encounter Summary ---
Author Organization [place] [address] Care Team Providers Care Radiation Protection Specialist Name Role Phone Farnaz Pineda MD Primary Care Provider [phone] Encounter Details Date Type Department Care Team (Latest Contact Info) Description 03/21/2018 2:32 PM EDT - 03/21/2018 11:59 PM EDT Hospital Encounter [place] [phone] Bartolome Bruce MD [facility] [place] [address] Left groin mass Discharge Disposition: Home Social [...] 03:55 pm) PATIENT INFO: ID #: ? [id number] ?: ??[birth year] (68 yrs) Name: ? DILLAN AL ? Visit Date: 03/21/2018 03:01 pm PERFORMED BY: Performed By: ? Farnaz Jonas RDMS Attending: ?Anita Noriega MD Referred By: ?BARTOLOME Botello GROSS Location: ? [facility] SERVICE(S) PROVIDED: ??[id number] - Extremity Limited Non Vascular - Left ?[id number] ??- [id number] INDICATIONS: ??? L inguinal hernia --------- FINDINGS: --------- Title: ? Ultrasound Report Procedure Note Anita Lea MD - 03/21/2018 Ultrasound Report (Signed Final 03/21/2018 03:55 pm) PATIENT INFO: ID #: [id number] : [birth year] (68 yrs) Name: DILLAN AL Visit Date: 03/21/2018 03:01 pm PERFORMED BY: Performed By: Farnaz Jonas RDMS Attending: Hari NICHOLSON, Anita Mckenzie Referred By: BARTOLOME BRUCE Location: [facility] SERVICE(S) PROVIDED: [id number] - Extremity Limited Non Vascular - Left [id number] - [id number] INDICATIONS: ? L inguinal hernia --------- FINDINGS: [...] mass documented in this encounter Care Teams Radiation Protection Specialist Relationship Specialty Start Date End Date Farnaz Pineda MD [address] [place] [address] PCP - General 10/26/12 documented as of this encounter
--- OUTSIDE RECORDS SUMMARY | 2024-06-07 19:44 | XMS_ITS | Encounter Summary ---
Author Organization [facility] [place] [address] Care Team Providers Care Auto Parts Counter Person Name Role Phone Farnaz Pineda MD Primary Care Provider [phone] Encounter Details Date Type Department Care Team (Late st Contact Info) Description 08/20/2016 Telephone [place] [phone] Ross Madrid MD [facility] [place] [address] Social History Tobacco Use Types Packs/Day Years [...] filedocumented in this encounter Care Teams Auto Parts Counter Person Relationship Specialty Start Date End Date Farnaz Pineda MD [address] [place] [address] PCP - General 10/26/12 documented as of this encounter
--- OUTSIDE RECORDS SUMMARY | 2024-06-07 19:44 | XMS_ITS | Encounter Summary ---
Author Organization [place] [address] Care Team Providers Care Machine Technician Name Role Phone Farnaz Pineda MD Primary Care Provider [phone] Encounter Details Date Type Department Care Team (Late st Contact Info) Description 06/20/2014 12:30 PM EDT Office Visit [place] [phone] Ross Madrid MD [facility] [place] [address] Elevated PSA (Primary Dx) Discharge Disposition: Home [...] of clinically high risk prostate cancer (biopsy [place] 4+5=9, PSA 7.1, cT1c). He underwent NNS [...] In Lab Ross Madrid MD CHEMISTRY ORDERABLES [facility] Keep Me Certified documented in this encounter Visit Diagnoses Diagnosis Elevated PSA- Primary Elevated prostate specific antigen (PSA) documented in this encounter Care Teams Machine Technician Relationship Specialty Start Date End Date Farnaz Pineda MD [address] [place] [address] PCP - General 10/26/12 documented as of this encounter
--- OUTSIDE RECORDS SUMMARY | 2024-06-07 19:44 | XMS_ITS | Encounter Summary ---
Author Organization [facility] [place] [address] Care Team Providers Care Skin Care Therapist Name Role Phone Farnaz Pineda MD Primary Care Provider [phone] Encounter Details Date Type Department Care Team (Late st Contact Info) Description 08/10/2018 Telephone Urology at [address] [address] Charley Higgins RN Social History [...] on filedocumented in this encounter Care Teams Skin Care Therapist Relationship Specialty Start Date End Date Farnaz Pineda MD [address] [place] [address] PCP - General 10/26/12 documented as of this encounter
--- OUTSIDE RECORDS SUMMARY | 2024-06-07 19:44 | XMS_ITS | Encounter Summary ---
Author Organization [facility] [place] [address] Care Team Providers Care Paper Final Inspector Name Role Phone Farnaz Pineda MD Primary Care Provider [phone] Encounter Details Date Type Department Care Team (Late st Contact Info) Description 06/12/2014 Orders [place] [phone] Ross Madrid MD [facility] [place] [address] Elevated PSA (Primary Dx) Social History Tobacco [...] In Lab Ross Madrid MD [facility] documented in this encounter Visit Diagnoses Diagnosis Elevated PSA- Primary Elevated prostate specific antigen (PSA) documented in this encounter Care Teams Paper Final Inspector Relationship Specialty Start Date End Date Farnaz Pineda MD [address] [place] [address] PCP - General 10/26/12 documented as of this encounter
--- OUTSIDE RECORDS SUMMARY | 2024-06-07 19:44 | XMS_ITS | Encounter Summary ---
Author Organization [facility] [address] Care Team Providers Care Journalism Internship Name Role Phone Farnaz Pineda MD Primary Care Provider [phone] Encounter Details Date Type Department Care Team (Latest Contact Info) Description 06/14/2013 12:50 PM EDT [place] [phone] Ross Madrid MD [facility] [place] [address] Prostate cancer (Primary Dx); S/P prostatectomy Discharge [...] of clinically high risk prostate cancer (biopsy [place] 4+5=9, PSA 7.1, cT1c). He underwent RALRP/PLND [...] a metal AVR. 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 Today he feels well. His urinary control has improved substantially and he uses a pad per day for safety. Denies gross hematuria. No recurrent erections but +sensitivity. Desires to attempt viagra which he used preoperatively. Exam: S NTND No CVAT PSA: <0.09 in 03/22 <0.1 on 06/08/13 (both values from [facility]) A: Higher risk prostate cancer is ? MADI with mild discrepancy in PSA Stress incontinence is improving Erectile dysfunction P: I recommended a PSA today at [facility] to evaluate for detectable PSA given the [...] EDT Ross Madrid MD HEMATOLOGY ORDERABLE S [facility] MILLENNIUM * (ABNORMAL) CBC (with Diff) (06/14/2013 [...] MD HEMATOLOGY ORDERABLE S Performing Organization Address City/[facility] Co de Phone Number DANETTE PRIDEIUM * PSA (06/14/2013 2:16 PM EDT) Prostate Specific Antigen (Ultrasensitiv e) <0.03 0.00 - 4.00 ng/mL DANETTE MILLENNIUM Blood specimen (specimen) 06/14/2013 2:16 PM EDT 06/14/2013 2:26 PM EDT Narrative Resulting Agency Comment Spec In Lab Ross Madrid MD CHEMISTRY ORDERABLES Performing Organization Address City/[facility] Co de Phone Number DANETTE VALENCIA documented in this encounter Visit Diagnoses Diagnosis Prostate cancer- Primary Malignant neoplasm of prostate S/P prostatectomy Other postprocedural status documented in this encounter Care Teams Journalism Internship Relationship Specialty Start Date End Date Farnaz Pineda MD [address] [place] [address] PCP - General 10/26/12 documented as of this encounter
--- OUTSIDE RECORDS SUMMARY | 2024-06-07 19:44 | XMS_ITS | Encounter Summary ---
Author Organization [facility] [place] [address] Care Team Providers Care Supervisor Crack Off Name Role Phone Farnaz Pineda MD Primary Care Provider Encounter Details Date Type Department Care Team (Late st Contact Info) Description 07/20/2018 Orders Only Urology at [address] [address] Bartolome Pike MD [facility] [place] [address] Social History Tobacco Use Types Packs/Day Years [...] on filedocumented in this encounter Care Teams Supervisor Crack Off Relationship Specialty Start Date End Date Farnaz Pineda MD [address] [place], [place] [address] PCP - General 10/26/12 documented as of this encounter
--- OUTSIDE RECORDS SUMMARY | 2024-06-07 19:44 | XMS_ITS | Encounter Summary ---
Author Organization [facility] [place] [address] Care Team Providers Care Operator And Truck Driver Name Role Phone Farnaz Pineda MD Primary Care Provider [phone] Encounter Details Date Type Department Care Team (Late st Contact Info) Description 01/26/2019 [place] [address] Leonardo Barrios MD [facility] [place] [address] Social History Tobacco Use Types Packs/Day Years [...] on filedocumented in this encounter Care Teams Operator And Truck Driver Relationship Specialty Start Date End Date Farnaz Pineda MD [address] [place] [address] PCP - General 10/26/12 documented as of this encounter
--- OUTSIDE RECORDS SUMMARY | 2024-06-07 19:44 | XMS_ITS | Encounter Summary ---
Author Organization [facility] [place] [address] Care Team Providers Care Waste Collector Name Role Phone Cameron Pineda MD Primary Care Provider [phone] Encounter Details Date Type Department Care Team (Latest Contact Info) Description 02/08/2013 9:06 AM EDT - 02/08/2013 11:59 PM EDT Hospital [place] [address] CLINIC, Jim Bowden MD [facility] [place] [address] S/P AVR (aortic valve replacement) (Primary Dx) [...] Soares RN - 02/05/2013 10:11 AM EDT [facility] NURSING DATABASE Name: DILLAN AL Date of : 1950 AGE 62 y.o. Address: [address] [place] [address] (home) [phone] (work) Mobile: Telephone Information: Referring Provider: Ermias [...] ASSISTED performed by Ross Madrid MD at [facility] MAIN OR ??? Lap, pelvic lymphadenectomy 11/20/2012 LAPAROSCOPY,WITH BILATERAL TOTAL PELVIC LYMPHADENECTOMY, ROBOTIC performed by Ross Madrid MD at [facility] MAIN OR ? ? Cystourethroscopy w/irrig & evac clots 12/27/2012 CYSTO, IRRIGATION & EVACUATION OF CLOTS performed by Ross Madrid MD at [facility] MAIN OR ??? Ct retroperitoneal abscess [...] rbcS, fluid bolus then Levo started by INFORMATION TECHNOLOGY ASSOCIATE 02/08/13 Sinogram No meds Laboratory Results: Lab [...] has been informed that they require a set key driver to drive them home after this procedure. In the absence of a set key driver, IR will not be able to perform this procedureand will need to reschedule. Pt verbalized understanding of these instructions during the pre-procedure education via phone. documented in this encounter Procedure Notes * Jim Martell MD - 02/08/2013 10:42 AM EDTProcedure(s): IR ALL DRAINAGE PROCEDURES IR Procedure Note A [id number] Procedure: LLQ abscess drain injection History/indication: 62 [...] IR Procedure Note ?? Accession Number: ?? [id number] ?? Procedure: LLQ abscess drain injection ?? [...] - 02/12/2013 IR Procedure Note Accession Number: [id number] Procedure: LLQ abscess drain injection History/Indication: 62 [...] MD HEMATOLOGY ORDERABLE S Performing Organization Address [facility] Co de Phone Number Outski * (ABNORMAL) Prothrombin Time (02/08/2013 9:00 AM EDT) Prothrombin Time 25.6(H) 12.0 - 15.0 sec CERNER CosNetENNIUM Comment: [facility] Transfusion Committee Guidelines: INR less than 2.0, PTT less than OR equal to 43.5 seconds, or Fibrinogen greater than or equal to 100 mg/dl indicate adequate procoagulant activity for hemostasis in patients without underlying bleeding disorders. International Normalization Ratio 2.2(H) 0.9 - 1.1 CERDAKSHA MambuIUM Blood specimen (specimen) 02/08/2013 9:00 AM EDT 02/08/2013 9:03 AM EDT Narrative Resulting Agency Comment Spec In Lab Jim Martell MD HEMATOLOGY ORDERABLE S Performing Organization Address [facility] Co de Phone Number DANETTE HARTMANMotion Displays documented in this encounter Visit Diagnoses Diagnosis [...] mLs documented in this encounter Care Teams Waste Collector Relationship Specialty Start Date End Date Cameron Pineda MD [address] [place] [address] PCP - General 10/26/12 documented as of this encounter
--- OUTSIDE RECORDS SUMMARY | 2024-06-07 19:44 | XMS_ITS | Encounter Summary ---
Author Organization [facility] [place] [address] Care Team Providers Care Church Administrator Name Role Phone Farnaz Pineda MD Primary Care Provider [phone] Encounter Details Date Type Department Care Team (Late st Contact Info) Description 01/14/2015 10:20 AM EDT [place] [phone] Ross Madrid MD [facility] [place] [address] Prostate cancer Discharge Disposition: Home Social History [...] of clinically high risk prostate cancer (biopsy [place] 4+5=9, PSA 7.1, cT1c). He underwent NNS [...] CERN ER MILLENNIUM Comment: Probability of finding PROCESS IMPROVEMENT SPECIALIST on needle biopsy by age in years: [...] In Lab Ross Madrid MD CHEMISTRY ORDERABLES [facility] documented in this encounter Visit Diagnoses Diagnosis Prostate cancer Malignant neoplasm of prostate documented in this encounter Care Teams Church Administrator Relationship Specialty Start Date End Date Farnaz Pineda MD [address] [place] [address] PCP - General 10/26/12 documented as of this encounter
--- OUTSIDE RECORDS SUMMARY | 2024-06-07 19:44 | XMS_ITS | Encounter Summary ---
Author Organization [facility] [place] [address] Care Team Providers Care Farm Equipment Technician Name Role Phone Farnaz Pineda MD Primary Care Provider [phone] Encounter Details Date Type Department Care Team (Late st Contact Info) Description 03/22/2018 [place] [phone] Bartolome Pike MD [facility] [place] [address] Social History Tobacco Use Types Packs/Day Years [...] on filedocumented in this encounter Care Teams Farm Equipment Technician Relationship Specialty Start Date End Date Farnaz Pineda MD [address] [place] [address] PCP - General 10/26/12 documented as of this encounter
--- OUTSIDE RECORDS SUMMARY | 2024-06-07 19:44 | XMS_ITS | Encounter Summary ---
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 No fevers, chills, ns, abdominal pain. Abdominal [...] Section of Infectious Disease and International Health [phone] minutes were spent in this face [...] procedure documented in this encounter Care Teams Canteen Manager Relationship Specialty Start Date End Date Farnaz Pineda MD [address] [place] [address] PCP - General 10/26/12 documented as of this encounter
--- OUTSIDE RECORDS SUMMARY | 2024-06-07 19:44 | XMS_ITS | Encounter Summary ---
Author Organization [facility] [place] [address] Care Team Providers Care Lead Technical Writer Name Role Phone Farnaz Pineda MD Primary Care Provider [phone] Encounter Details Date Type Department Care Team (Late st Contact Info) Description 01/30/2013 [place] [address] Jaime Berrios [facility] [place] [address] Hematoma - postoperative (Primary Dx) Social History [...] 02/03/2013 10:21 AM EDT Called by resident automotive parts counterperson, and was asked to call back Mrs. [...] procedure documented in this encounter Care Teams Lead Technical Writer Relationship Specialty Start Date End Date Farnaz Pineda MD [address] [place] [address] PCP - General 10/26/12 documented as of this encounter
--- OUTSIDE RECORDS SUMMARY | 2024-06-07 19:44 | XMS_ITS | Encounter Summary ---
Author Organization [facility] [place] [address] Care Team Providers Care Car Tester Name Role Phone Farnaz Pineda MD Primary Care Provider [phone] Encounter Details Date Type Department Care Team (Late st Contact Info) Description 03/07/2013 9:00 AM EDT [place] [address] Encounter for removal of urinary [...] device documented in this encounter Care Teams Car Tester Relationship Specialty Start Date End Date Farnaz Pineda MD [address] [place] [address] PCP - General 10/26/12 documented as of this encounter
--- OUTSIDE RECORDS SUMMARY | 2024-06-07 19:44 | XMS_ITS | Encounter Summary ---
Author Organization [facility] [place] [address] Care Team Providers Care Transitional Living Specialist Name Role Phone Farnaz Pineda MD Primary Care Provider [phone] Encounter Details Date Type Department Care Team (Late st Contact Info) Description 06/13/2013 [place] [phone] Ross Madrid MD [facility] [place] [address] Social History Tobacco Use Types Packs/Day Years [...] on filedocumented in this encounter Care Teams Transitional Living Specialist Relationship Specialty Start Date End Date Farnaz Pineda MD [address] [place] [address] PCP - General 10/26/12 documented as of this encounter
--- OUTSIDE RECORDS SUMMARY | 2024-06-07 19:44 | XMS_ITS | Encounter Summary ---
Author Organization [place] [address] Care Team Providers Care Finance Teacher Name Role Phone Farnaz Pineda MD Primary Care Provider [phone] Encounter Details Date Type Department Care Team (Late st Contact Info) Description 01/27/2016 Telephone [place] [address] Ross Madrid MD [facility] [place] [address] Social History Tobacco Use Types Packs/Day Years [...] on filedocumented in this encounter Care Teams Finance Teacher Relationship Specialty Start Date End Date Farnaz Pineda MD [address] [place] [address] PCP - General 10/26/12 documented as of this encounter
--- OUTSIDE RECORDS SUMMARY | 2024-06-07 19:44 | XMS_ITS | Encounter Summary ---
Author Organization [facility] [place] [address] Care Team Providers Care Freelance Photographer Name Role Phone Cameron Pineda MD Primary Care Provider [phone] Encounter Details Date Type Department Care Team (Late st Contact Info) Description 02/16/2013 8:09 AM EDT - 02/16/2013 11:58 PM EDT Hospital [place] [address] Hematuria Social History Tobacco Use [...] Uriostegui RN - 02/16/2013 10:37 AM EDT [facility] Vascular and Interventional Radiology Signs And Symptoms [...] is during regular office hours, please call [phone]. If it is after regular office hours, or on weekends or holidays, please call [phone] and ask to speak to the Exercise Science Internship sludge filtration operator for Interventional Radiology. Revised 07/14/12 documented in [...] vein every 4 hours for 30 days. 72593 mL 0 02/13/2013 03/15/2013 BUDESONIDE/FORMOTEROL FUMARATE (SYMBICORT [...] Carranza RN - 02/16/2013 9:46 AM EDT [facility] NURSING DATAB[facility] Name: DILLAN AL Date of : 1950 AGE 62 y.o. Address: [address] [place] [address] (home) [phone] (work) Mobile: Telephone Information: Referring Provider: Ross [...] ASSISTED performed by Ross Madrid MD at [facility] MAIN OR ??? Lap, pelvic lymphadenectomy 11/20/2012 LAPAROSCOPY,WITH BILATERAL TOTAL PELVIC LYMPHADENECTOMY, ROBOTIC performed by Ross Madrid MD at [facility] MAIN OR ? ? Cystourethroscopy w/irrig & evac clots 12/27/2012 CYSTO, IRRIGATION & EVACUATION OF CLOTS performed by Ross Madrid MD at [facility] MAIN OR ??? Ct retroperitoneal abscess drain 01/24/2013 Date/Procedure Comments: 01-04-13 IVC filter Versed 2.5 mg iv, fentanyl 125 mcg iv, ancef 1 gram iv 01/24/2013 Pelvic embolization and then CT guided pelvic drain placement Fentanyl 125 mcg/iv duglas gttstarted (patient changed to ICU status mid-case), 2 UNITS ffp, 2 UNITS rbcS, fluid bolus then Levo started by COAT FELLER 02/08/13 Sinogram No meds 02/16/13 sinogram No [...] has been informed that they require a water taxi driver to drive them home after this procedure. In the absence of a water taxi driver, IR will not be able to [...] ASSISTED performed by Ross Madrid MD at [facility] MAIN OR ??? Lap, pelvic lymphadenectomy 11/20/2012 LAPAROSCOPY,WITH BILATERAL TOTAL PELVIC LYMPHADENECTOMY, ROBOTIC performed by Ross Madrid MD at [facility] MAIN OR ? ? Cystourethroscopy w/irrig & evac clots 12/27/2012 CYSTO, IRRIGATION & EVACUATION OF CLOTS performed by Ross Madrid MD at [facility] MAIN OR ??? Ct retroperitoneal abscess drain 01/24/2013 No Known Allergies Current Outpatient Prescriptions on File Prior to Encounter Medication Sig Dispense Refill ??? penicillin g potassium 4 million units/100 mL PREMIX Inject 100 mLs into the vein every 4 hoursfor 30 days. 24228 mL 0 ??? BUDESONIDE/FORMOTEROL FUMARATE (SYMBICORT INHL) [...] CONTRAST\DRAIN CATH\TUBE\ABSCESS\CYST IR Procedure Note Accession Number: [id number] Procedure: LLQ abscess drain injection History/Indication: 62 [...] EDT IR Procedure Note ?? Accession Number: [id number] ?? Procedure: LLQ abscess drain injection ?? [...] - 02/16/2013 IR Procedure Note Accession Number: [id number] Procedure: LLQ abscess drain injection History/Indication: 62 [...] unspecified documented in this encounter Care Teams Freelance Photographer Relationship Specialty Start Date End Date Cameron Pineda MD [address] [place] [address] PCP - General 10/26/12 documented as of this encounter
--- OUTSIDE RECORDS SUMMARY | 2024-06-07 19:44 | XMS_ITS | Encounter Summary ---
Author Organization [facility] [place] [address] Care Team Providers Care Wastewater Analyst Lab Analyst Name Role Phone Farnaz Pineda MD Primary Care Provider [phone] Encounter Details Date Type Department Care Team (Latest Contact Info) Description 02/08/2013 8:51 AM EDT - 02/08/2013 11:59 PM EDT Hospital [place] [address] Jim Martell MD [facility] [place] [address] S/P AVR (aortic valve replacement) Discharge Disposition: [...] S Performing Organization Address [facility] de Phone Number DANETTE VALENCIA * (ABNORMAL) Prothrombin Time (02/08/2013 9:00 AM EDT) Prothrombin Time 25.6(H) 12.0 - 15.0 sec CERNER MILLENNIUM Comment: [facility] Transfusion Committee Guidelines: INR less than [...] S Performing Organization Address [facility] Co de Phone Number DANETTE VALENCIA documented in this encounter Visit Diagnoses Diagnosis S/P AVR (aortic valve replacement) Heart valve replaced by other means documented in this encounter Care Teams Wastewater Analyst Lab Analyst Relationship Specialty Start Date End Date Farnaz Pineda MD [address] [place] [address] PCP - General 10/26/12 documented as of this encounter
--- OUTSIDE RECORDS SUMMARY | 2024-06-07 19:44 | XMS_ITS | Encounter Summary ---
Author Organization [facility] [place] [address] Care Team Providers Care Accredited Farm Manager Name Role Phone Farnaz Pineda MD Primary Care Provider [phone] Encounter Details Date Type Department Care Team (Late st Contact Info) Description 01/27/2016 [place] [phone] Ross Madrid MD [facility] [place] [place] [address] Social History Tobacco Use Types Packs/Day Years [...] on filedocumented in this encounter Care Teams Accredited Farm Manager Relationship Specialty Start Date End Date Farnaz Pineda MD [address] [place] [address] PCP - General 10/26/12 documented as of this encounter
--- OUTSIDE RECORDS SUMMARY | 2024-06-07 19:45 | XMS_ITS | Encounter Summary ---
Author Organization [facility] [place] [address] Care Team Providers Care Business Law Instructor Name Role Phone Farnaz Pineda MD Primary Care Provider [phone] Encounter Details Date Type Department Care Team (Late st Contact Info) Description 01/18/2013 Telephone [place] [phone] Eddie Proctor MD [facility] [place] [address] Social History Tobacco Use Types Packs/Day Years [...] filedocumented in this encounter Care Teams Business Law Instructor Relationship Specialty Start Date End Date Farnaz Pineda MD [address] [place] [address] PCP - General 10/26/12 documented as of this encounter
--- OUTSIDE RECORDS SUMMARY | 2024-06-07 19:45 | XMS_ITS | Encounter Summary ---
Author Organization [facility] Address [facility] [place] [address] Care Team Providers Care Sharepoint Manager Name Role Phone Farnaz Patel MD Primary Care Provider [phone] Reason for Referral * Consultation (Routine) - Closed Specialty Diagnoses / Procedures Referred By Berta tavera Referred To Contact Diagnoses Abscess Bacteremia Postoperative hemorrhage Lesly Hope MD [facility] [place] [address] Riky Henley MD [facility] [address] Referral ID Status Reason Start Date Expiration Date V isits Requested Visits Authorized [id number] Closed Assume Subset of Care 01/29/2013 07/28/2013 1 1 Encounter Details Date Type Department Care Team (Latest Contact Info) Description 01/23/2013 10:41 PM EDT - 01/30/2013 6:46 PM EDT Hospital Encounter [address] [place] [address] Presley Madrid MD [facility] [place] [address] Lesly Hope MD [facility] [place] [address] S/P AVR (aortic valve replacement) (Primary Dx); [...] Sethi RN - 01/30/2013 9:46 AM EDT outdoor studies director Addendum Care Management Progress Notes 01/29/2013 11:46 AM Office of Care Management Clinical Mechanical Laboratory Technician Home IV Antibiotic Therapy Referral Note. Report received from that this patient will need home IV ABX treatment at discharge from the hospital. Met with patient/family to discuss vendor and visiting nurse choices for home IV antibiotic therapy. Reviewed Home Infusion Vendors and Home Health Agencies that serve patient???s address and accept patient???s insurance. Home Health Agency: Patient requested referral to [facility] PHONE: [phone] FAX: [phone] Referrals sent via edischarge. Home Infusion Vendor: [facility] Referrals sent via edischarge. Diabetic Status: Patient is not a diabetic. IV access: Type of line: PICC line Date placed: 01-29-13 CRC signature Belen Valle RN [facility] Vascular and Interventional Radiology Discharge Instructions [...] is during regular office hours, please call [phone]. If it is after regular office hours, or on weekends or holidays, please call [phone] and ask to speak to the Diagram Clerk propagation worker for Interventional Radiology. You may have received [...] longer draining. The number for questions is [phone] before 5 PM weekdays and [phone] after 5 PM and weekends. Activity level: [...] will be mailed to you. Please call [phone] (clinic number for appointments) to confirm date [...] Phone: [address] / [place] [address] If you have not received a call [...] tubed to outpatient pharmacy for pt to picker feeder prior to leaving. Instructions reinforced on pain [...] via private vehicle. Discharge summary e-faxed to [facility] with phonenumber for follow up questions if necessary. * Randy Mckinley - 01/30/2013 4:22 PM EDT Supervisor Hot Dip Plating Encounter Note Patient Name: Dillan Rodgers : [id number] MR#: [id number] Admit Date: 01/23/2013 10:41 PM Hospital Day 7 days Narrative:Visited to introduce and assess acceptance of Supervisor Hot Dip Plating services. Assessment:Patient coping positively with stresses of [...] 3:36 PM EDT Care Management/ CRC Pager# [phone] covering for Belen Valle RN/ Discharge planning [...] note put into E-discharge by Melissa Mancuso, Professional Caster. [facility] about [facility] start of therapy here later today and for patient to discharge to home today. Patient will be on Penicillin IV q4hr, and therefore on pump delivery system. Aislinn is clearing it through [facility] and finding out what time Penicillin and pump can be delivered. Discussion with Dr. Clyde Ruiz about plan. Discussion with director compliance Nohemi. Care Management note for MD Discharge Summary (with VNA and home infusion vendor information) had been completed and pended by Belen Valle RN. A/P: I am available to assist for discharge planning needs. Addendum at 1550: O: Per Aislinn DELA CRUZ of [facility], medication and pump will be delivered by 1900 for patient to be discharged today. [facility] Staff member to do teach at that [...] AM EDT Office of Care Management Clinical Mechanical Laboratory Technician Home IV Antibiotic Therapy Referral Note. Report received from that this patient will need home IV ABX treatment at discharge from the hospital. Met with patient/family to discuss vendor and visiting nurse choices for home IV antibiotic therapy. Reviewed Home Infusion Vendors and Home Health Agencies that serve patient???s address and accept patient???s insurance. Home Health Agency: Patient requested referral to [facility] PHONE: [phone] FAX: [phone] Referrals sent via edischarge. Home Infusion Vendor: Patient requested referral to [place], [place] or Referrals sent via edischarge. Diabetic Status: Patient is not a diabetic. IV access: Type of line: PICC line Date placed: 01-29-13 CRC signature Belen Valle RN CRC * Nohemi Preston RN - 01/29/2013 11:11 AM EDT Pt. concented for PICC; seen by NIK NICHOLSON [facility] CRC. 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 P: Neuro: TUBING MILL SETTER for pain control. Monitor mental status CV: [...] NORepinephrine Stopped (01/25/13 1800) ??? HYDROmorphone ??? TUBING MILL SETTER capps ??? sodium chloride 0.9% 150 mL/hr [...] AM EDT Clinical Pharmacist Note-Vanc Dillan Rodgers [id number] 1950 Dillan Rodgers is a 62 y.o. [...] have. Alternately, during off-hours you may call [phone] to contact a pharmacist. DORA TALAVERA PHARMD Pager [phone] * Larissa Rios RN - 01/25/2013 3:17 PM EDT Office of Care Management (OCM) / Clinical Mechanical Laboratory Technician (CRC)/ Initial Assessment Discussed patient with Provider [...] to maintain BP within desired parameters. Dilaudid TUBING MILL SETTER in place for pain management. Currentlactate 1.1, WBC trending down, currently afebrile. Central line, arterial line, abdominal drain, and diallo catheter in place. SOCIAL / FAMILY SUPPORTS: Lives with , Jade (RN), in [place], [place]. ADVANCE DIRECTIVES: None on file. HEALTH /PRESCRIPTION COVERAGE: GRT WST PPO [employer] CURRENT HOME/COMMUNITY SERVICES/EQUIPMENT: None EDIPHONE OPERATOR REFERRAL: No acute needs identified at this time. EDIPHONE OPERATOR available for Support/Financial/Medication Assistance should needs develop. PRIMARY CARE PHYSICIAN: FARNAZ PATEL MD [address] / [facility] [address] POTENTIAL DISCHARGE NEEDS: Unable to determine at this time. 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 Monitor mental status in [...] 10 mcg/min (01/25/13 0600) ??? HYDROmorphone ??? TUBING MILL SETTER capps ??? DISCONTD: PHENYLephrine Stopped (01/24/13 1630) [...] %] I/O last 3 completed shifts: In: 56069.3 [I.V.:9249; Blood:1063.3; Other:547] Out: 2970 [Urine:2920; Other:50] [...] Dey RN - 01/24/2013 8:46 AM EDT [facility] NURSING DATAB[facility] Name: DILLAN RODGERS Date of : 1950 AGE 62 y.o. Address: [address] [place] [phone] (home) [phone] (work) Mobile: Telephone Information: Referring Provider: Abby [...] performed by Presley Madrid MD at [facility] OR ??? Lap, pelvic lymphadenectomy 11/20/2012 LAPAROSCOPY,WITH BILATERAL TOTAL PELVIC LYMPHADENECTOMY, ROBOTIC performed by Presley Madrid MD at [facility] ? ? Cystourethroscopy w/irrig & evac clots 12/27/2012 CYSTO, IRRIGATION & EVACUATION OF CLOTS performed by Presley Madrid MD at [facility] Date/Procedure Comments: 01/24/13 No data in CIS 01-04-13 IVC filter Versed 2.5 mg iv, fentanyl 125 mcg iv, ancef 1 gram iv 01/24/2013 Pelvic embolization and then CT guided pelvic drain placement Fentanyl 125 mcg/iv duglas gttstarted (patient changed to ICU status mid-case), 2 UNITS ffp, 2 UNITS rbcS, fluid bolus then Levo started by HEALTH INFORMATION PROVIDER Laboratory Results: Lab Results Component Value Date [...] has been informed that they require a cross country truck driver to drive them home after this procedure. In the absence of a cross country truck driver, IR will not be able to perform this procedureand will need to reschedule. Pt verbalized understanding of these instructions during the pre-procedure education via phone. * Jim Martell MD - 01/24/2013 8:16 AM EDT IR Pre-procedure Note Age: 62 y.o. M Referring MD: Presley Madrid MD ([facility]- Urology) Planned Procedure: Pelvic angiogram, possible left [...] and fever. He was subsequently transferred to [facility]. CECT scan demonstrated left sided pelvic hematoma, [...] following the procedure Access site/position- Supine, R SUPERVISOR STONE access * Presley Madrid MD - 01/24/2013 [...] is s/p robotic prostatectomy approximately 2 months TUB MENDER. His course was complicated by a pelvic [...] is s/p robotic prostatectomy approximately 2 months TUB MENDER. Post-op course was notable for pelvic hematoma. [...] got IV Cipro. He was transferred to [facility] for furtherworkup and management. CECT scan demonstrated [...] pulses I/O last 3 completed shifts: In: 55660.3 [I.V.:9249; Blood:1063.3; Other:547] Out: 2970 [Urine:2920; Other:50] [...] is s/p robotic prostatectomy approximately 2 months TUB MENDER. Post-op course was notable for pelvic hematoma. [...] got IV Cipro. He was transferred to [facility] for furtherworkup and management. CECT scan demonstrated [...] is 3.0. We will admit him to [facility] for further treatment. We will maintain [...] Admission Note Patient Name: Dillan Rodgers MR#: [id number] : [id number] CC: 62 y.o. Male s/p robotic prostatectomy [...] performed by Presley Madrid MD at [facility] ??? Lap, pelvic lymphadenectomy 11/20/2012 LAPAROSCOPY,WITH BILATERAL TOTAL PELVIC LYMPHADENECTOMY, ROBOTIC performed by Presley Madrid MD at [facility] ? ? Cystourethroscopy w/irrig & evac clots 12/27/2012 CYSTO, IRRIGATION & EVACUATION OF CLOTS performed by Presley Madrid MD at [facility] ALLERGIES: No Known Allergies [...] results found for this basename: phart, po2art, vln8lko RADIOLOGY: Ct Pelvis Wo Contrast 01/04/2013 Examination [...] the attending Assessment/Problem List: Plan: Neuro: dilaudid TUBING MILL SETTER CV: Levophed, lactate elevated to 4. Recheck [...] performed by Presley Madrid MD at [facility] ??? Lap, pelvic lymphadenectomy 11/20/2012 LAPAROSCOPY,WITH BILATERAL TOTAL PELVIC LYMPHADENECTOMY, ROBOTIC performed by Presley Madrid MD at [facility] ? ? Cystourethroscopy w/irrig & evac clots 12/27/2012 CYSTO, IRRIGATION & EVACUATION OF CLOTS performed by Presley Madrid MD at [facility] Aortic valve replacement FAM [...] 01/31/2013 1:06 PM EDTAssociated Order(s): SCAN DOC: MACHINE STRAP BUCKLER * Provider, Scanning - 01/31/2013 12:54 PM [...] to the planned procedure. Hand Hygiene: The surgery specialist did perform hand hygiene prior to line insertion. Catheter type: PICC Lot number: [id number] Procedure Technique: Skin was prepped with chlorhexidine. [...] to the planned procedure. Hand Hygiene: The surgery specialist did perform hand hygiene prior to arterial [...] central line associated infection. Location of Procedure: [facility] Risks and Benefits: The risks and benefits of this procedure were reviewed and informed consent was obtained. Time Out: Prior to the start of the procedure, the patient's identity, intended procedure, site/side, correctpatient positioning and presence of the site immanuel was confirmed as applicable. The medical history and chart were reviewed to rule out potential contraindications to the planned procedure. Hand Hygiene: The surgery specialist did perform hand hygiene prior to central [...] : CT-guided drainage pelvic abscess Acc #: [id number] INDICATION : abscess s/p robotic prostatectomy/LND approximately [...] internal iliac artery embolization with gelfoam ACC#: [id number] Indication for Procedure: 62 yr old M patient, s/p robotic prostatectomy/LND approximately 2 monthsago. Post-op course was notable for pelvic hematoma. 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 Most recently, he presented to an outside hospital with bilateral hip pain and fever. He was subsequently transferred to [facility]. CECT scan demonstrated left sided pelvic hematoma, [...] that part of your care. Urology - [phone] Scheduled Appointments: The following appointments have been scheduled on your behalf: Future Appointments and Orders Future Appointments: Provider: Department: Dept Phone: Center: 02/13/2013 11:00 AM Cely Baires MD Infectious Disease [phone] [facility] 03/13/2013 10:30 AM Presley Madrid MD Urology [phone] [facility] Joint Appt Questionnaire Five B Urology Urology [phone] [facility] Future Orders Please Complete By Expires CT abdomen & pelvis with contrast [[id number] Custom] 02/05/13 01/29/14 Process Instructions: Scheduling Instructions: [...] Recommendation for Post Discharge IV Antibiotic Management [OIP043 CPT(R)] Process Instructions: If no progress note charted, please enter Clinical details in comments. Scheduling Instructions: Comments: Please Fax all results to: OPAT Program Infectious Disease Section [facility], [place] [address] FAX: Line care instructions per [facility] OPAT Program protocol. After hours, please contact the Infectious Disease Physician propagation worker at . If this order was signed greater than 72 hours prior to [facility] discharge, please call to confirm the accuracy [...] Hematoma Left Pelvis Referral to Home Health [[id number] CPT(R)] Process Instructions: Scheduling Instructions: Comments: DOCUMENTATION FOR VNA SERVICES (INCLUDING THOSE PATIENTS WITH MEDICARE COVERAGE REQUIRING HOME VNA SERVICES AND/OR HOSPICE SERVICES) PATIENT'S LOCATION: Dillan Rodgers [address] [place] [phone] (home) Senior Director Insight's Name: Patient, , Jade In discussion with the attending physician, it is certified that this patient is under their care and that they, or a Nurse Practitioner,Clinical Nurse specialist or Physician Journeyman Glazier who is working directly with them, had [...] issues, activity, coping HOME HEALTH CARE AGENCY: [facility] PHONE: [phone] FAX: [phone] Start of care: Day of discharge (01-29-13) Please note that any additional orders needs or changes will need to be obtained from this patient's PCP: FARNAZ PATEL MD [address] / [facility] [address] All VNA agencies which cover the area of patient's residence have been reviewed, either verbally clara writing, and patient/family have chosen the home health care agency noted Questions: Responses: Agency name and contact [facility] Home What services are requested Registered Nurse Start date 01/30/2013 Responsible MD post discharge contact info PCP/ Miacela [facility] Referral for Outpatient Antibiotics [[id number] CPT(R)] Process Instructions: Scheduling Instructions: Comments: [place], [place] or Questions: Responses: Patient location post discharge Home Start date 01/29/2013 Responsible MD post discharge contact info PCP/Raf Sun MD [facility] Vendor / contact information [facility] Service requested [...] AND/OR HOSPICE SERVICES) PATIENT'S LOCATION: Dillan Rodgers [address] [place] [phone] (home) Senior Director Insight's Name: Patient, , Jade In discussion with the attending physician, it is certified that this patient is under their care and that they, or a Nurse Practitioner,Clinical Nurse specialist or Physician Journeyman Glazier who is working directly with them, had [...] issues, activity, coping HOME HEALTH CARE AGENCY: [facility] PHONE: [phone] FAX: [phone] Start of care: Day of discharge (01-29-13) Please note that any additional orders needs or changes will need to be obtained from this patient's PCP: FARNAZ PATEL MD [address] / [place] [address] All A agencies which cover the area of patient's residence have been reviewed, either verbally clara writing, and patient/family have chosen the home health care agency noted Question Response Notes Agency name and contact information [facility] Patient location post discharge Home What services are requested Registered Nurse Start date 01/30/2013 Responsible MD post discharge contact info PCP/ Micaela [facility] Referral for Outpatient Antibiotics Order Comments: [place], [place] or Question Response Notes Vendor / contact information [place] Patient location post discharge Home Service requested Home IV ABX infusion/PICC line care Start date 01/29/2013 Responsible MD post discharge contact info PCP/Raf Sun MD [facility] Instructions Given to Patient at Discharge: Provider Instructions Call your doctor for: fevers greater than 100.5 severe nausea or vomiting increasing pain not controlled by pain medications increasing redness or drainage from incisions decreased urine output our if your catheter is no longer draining. The number for questions is [phone] before 5 PM weekdays and [phone] after 5 PM and weekends. Activity level: [...] will be mailed to you. Please call [phone] (clinic number for appointments) to confirm date [...] PATEL MD Phone: [address] / [place] [address] If you have not received a call [...] the above, seek medical attention. General Instructions outdoor studies director Addendum Care Management Progress Notes 01/29/2013 11:46 AM Office of Care Management Clinical Mechanical Laboratory Technician Home IV Antibiotic Therapy Referral Note. Report received from that this patient will need home IV ABX treatment at discharge from the hospital. Met with patient/family to discuss vendor and visiting nurse choices for home IV antibiotic therapy. Reviewed Home Infusion Vendors and Home Health Agencies that serve patient???s address and accept patient???s insurance. Home Health Agency: Patient requested referral to [facility] PHONE: [phone] FAX: [phone] Referrals sent via edischarge. Home Infusion Vendor: Patient requested referral to [place], [place] or Referrals sent via edischarge. Diabetic Status: Patient is not a diabetic. IV access: Type of line: PICC line Date placed: 01-29-13 CRC signature Belen ValleRN [facility] Vascular and Interventional Radiology Discharge Instructions for [...] is during regular office hours, please call [phone]. If it is after regular office hours, or on weekends or holidays, please call [phone] and ask to speak to the Diagram Clerk propagation worker for Interventional Radiology. You may have received [...] 11:00 AM Cely Baires MD Infectious Disease [phone] [facility] 03/13/2013 10:30 AM Presley Madrid MD Urology [phone] [facility] Joint Appt Questionnaire Five B Urology Urology [phone] [facility] Future Orders Please Complete By Expires CT abdomen & pelvis with contrast [[id number] Custom] 02/05/13 01/29/14 Process Instructions: Scheduling Instructions: [...] Recommendation for Post Discharge IV Antibiotic Management [VUL142 CPT(R)] Process Instructions: If no progress note charted, please enter Clinical details in comments. Scheduling Instructions: Comments: Please Fax all results to: OPAT Program Infectious Disease Section [facility], [place] [address] FAX: Line care instructions per [facility] OPAT Program protocol. After hours, please contact the Infectious Disease Physician propagation worker at . If this order was signed greater than 72 hours prior to [facility] discharge, please call to confirm the accuracy [...] Hematoma Left Pelvis Referral to Home Health [[id number] CPT(R)] Process Instructions: Scheduling Instructions: Comments: DOCUMENTATION FOR VNA SERVICES (INCLUDING THOSE PATIENTS WITH MEDICARE COVERAGE REQUIRING HOME VNA SERVICES AND/OR HOSPICE SERVICES) PATIENT'S LOCATION: Dillan Ocampo Vishal [address] [place] [phone] (home) Senior Director Insight's Name: Patient, , Jade In discussion with the attending physician, it is certified that this patient is under their care and that they, or a Nurse Practitioner,Clinical Nurse specialist or Physician Journeyman Glazier who is working directly with them, had [...] issues, activity, coping HOME HEALTH CARE AGENCY: [facility] PHONE: [phone] FAX: [phone] Start of care: Day of discharge (01-29-13) Please note that any additional orders needs or changes will need to be obtained from this patient's PCP: FARNAZ PATEL MD [address] / [facility] [address] All A agencies which cover the area of patient's residence have been reviewed, either verbally clara writing, and patient/family have chosen the home health care agency noted Questions: Responses: Agency name and contact information [facility] Patient location post discharge Home What services are requested Registered Nurse Start date 01/30/2013 Responsible MD post discharge contact info PCP/ Micaela [facility] Referral for Outpatient Antibiotics [[id number] CPT(R)] Process Instructions: Scheduling Instructions: Comments: [place], [place] or Questions: Responses: Patient location post discharge Home Start date 01/29/2013 Responsible MD post discharge contact info PCP/Raf Sun MD [facility] Vendor / contact information [facility] Service requested Home IV ABX infusion/PICC line [...] was managed by the Urology Team at [facility]. If you have any questions or concerns, please feel free to contact us. Provider Contact Information: Urology Clinic: [facility] (after business hours): CC: FARNAZ PATEL MD [...] yellow urine * Plan of Care - Noheim Preston RN - 01/29/2013 2:32 PM EDT [...] performed by Presley Madrid MD at [facility] OR ??? Lap, pelvic lymphadenectomy 11/20/2012 LAPAROSCOPY,WITH BILATERAL TOTAL PELVIC LYMPHADENECTOMY, ROBOTIC performed by Presley Madrid MD at [facility] ? ? Cystourethroscopy w/irrig & evac clots 12/27/2012 CYSTO, IRRIGATION & EVACUATION OF CLOTS performed by Presley Madrid MD at [facility] ??? Ct retroperitoneal abscess [...] oriented to person, place, and time Communication: [facility] Vision & Perception: n/a Range of [...] minutes Total timed interventions: 0 minutes Pager: [phone] SHAVON BENNETT OT 01/29/2013 Occupational Therapy Rehabilitation Department * Plan of Care - John Pacheco RN - 01/29/2013 8:02 AM EDT Problem: Knowledge Deficit (Adult, Pediatric, , NICU, Obstetric) Goal: Knowledge Deficit: Knowledgeable about Subject/Topic Outcome: Outcome achieved Date Met: 01/29/13 Peripherally Inserted Central Catheter (PICC) Teaching Sheet Peripherally inserted central catheters ([id number]) (PICC) are used when you need IV [...] midline catheter? PICC lines are used for halfway treatments. PICC lines may be used for [...] can be set up via the nurse Sole Tacker to help you. What are possible complications [...] Efficacy, Safety, Use, and Administration of [employer], [employer] 2005 * Plan of Care - [...] Leakage around D[place] insertion site; scrotum swollen. [place] pads utilized to absorb urine leakage, scrotal/perineal [...] Obstetric) Pt resting comfortably in bed. Using TUBING MILL SETTER appropriately. Problem: Urine Elimination, Impaired (Adult, Obstetric) [...] pain. PCAhydromorphone as prn. Transfer orders to [facility] 46a. Report called to Jessica. [...] performed by Presley Madrid MD at [facility] MAIN OR ??? Lap, pelvic lymphadenectomy 11/20/2012 LAPAROSCOPY,WITH BILATERAL TOTAL PELVIC LYMPHADENECTOMY, ROBOTIC performed by Presley Madrid MD at [facility] MAIN OR ? ? Cystourethroscopy w/irrig & evac clots 12/27/2012 CYSTO, IRRIGATION & EVACUATION OF CLOTS performed by Presley Madrid MD at [facility] MAIN OR ??? Ct retroperitoneal abscess [...] activity Pain: minimal c/o pain; not using TUBING MILL SETTER Skin: edematous L/Es; old L DVT; mild [...] timed interventions: 0 minutes (initial eval) Pager: [phone] BRENT HURD, PT 01/26/2013 Physical Therapy Rehabilitation [...] performed by Presley Madrid MD at [facility] MA[facility] OR ??? Lap, pelvic lymphadenectomy 11/20/2012 LAPAROSCOPY,WITH BILATERAL TOTAL PELVIC LYMPHADENECTOMY, ROBOTIC performed by Presley Madrid MD at [facility] MA[facility] OR ? ? Cystourethroscopy w/irrig & evac clots 12/27/2012 CYSTO, IRRIGATION & EVACUATION OF CLOTS performed by Presley Madrid MD at [facility] MA[facility] OR ??? Ct retroperitoneal abscess [...] 50 mL Mini-Bag Plus 1.5g Intravenous Q6H [facility] Clyde Ruiz MD 1.5 g at 01/26/13 [...] chloride 0.9% infusion 10 mL/hr Intravenous Continuous lCyde Ruiz MD 10 mL/hr at 01/25/13 0730 10 mL/hr at 01/25/13 0730 ??? sodium chloride 0.9 % flush 5 mL 5 mL Intravenous Q12H Julius Servin MD 5 mL at 01/26/13 0545 ??? chlorhexidine (PERIDEX) 0.12 % oral solution 15 mL 15 mL Oral Q12H [facility] Dillan Liao MD 15 mL at 01/26/13 0900 ??? sodium chloride 0.9% infusion 10 mL/hr Intravenous Continuous PRN Dillan Liao MD 10 mL/hrat 01/25/13 1800 10 mL/hr at 01/25/13 1800 ??? HYDROmorphone (DILAUDID) 1 mg/mL TUBING MILL SETTER 30 mL Intravenous TUBING MILL SETTER Only Dillan Liao MD ??? diphenhydrAMINE (BENADRYL) injection 25 mg 25 mg Intravenous Q30 Min PRN Dillan Liao MD ??? TUBING MILL SETTER [employer]apps Intravenous Continuous Dillan Liao MD ??? [...] be advised to followup with his regular benefits clerk at [facility] for his AVR. Cardiology service will [...] a transthoracic echo. Keanu Yeung M.D. 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 Enterococcus faecalis isolated Susceptibility testing in progress Patient: DILLAN RODGERS MR#: [id number] SUSCEPTIBILITY RESULTS Escherichia coli NINFA Interp Ampicillin [...] Viry Massey MD Fellow, Infectious Disease Pager [phone] ADDENDUM I have seen and examined the [...] guided drainage of infected L iliacus hematoma ([id number]) and embolization of the L internal iliac [...] questions. Cely Baires MD Infectious Disease Pager [phone] 80 minutes were spent on the floor in care of the patient. 50 minutes in coordination of care. * Plan of Care - Jim Mac - 01/26/2013 3:02 AM EDT Problem: Pain, Acute (Adult, Obstetric) Goal: Acute Pain: Acceptable Pain Control/Comfort Level - Pain, Acute (Adult, Obstetric) Pt. Pain assessed/ managed throughout shift. No pain noted. TUBING MILL SETTER pump ordered, pt. Does not need pain [...] is a 62 y.o. male had a [employer] mechanical aortic valve replacement FA in 2001 [...] performed by Presley Madrid MD at [facility] MA[facility] OR ??? Lap, pelvic lymphadenectomy 11/20/2012 LAPAROSCOPY,WITH BILATERAL TOTAL PELVIC LYMPHADENECTOMY, ROBOTIC performed by Presley Madrid MD at [facility] MA[facility] OR ? ? Cystourethroscopy w/irrig & evac clots 12/27/2012 CYSTO, IRRIGATION & EVACUATION OF CLOTS performed by Presley Madrid MD at [facility] MA[facility] OR ??? Ct retroperitoneal abscess drain 01/24/2013 Medications: Current Facility-Administered Medications Ordered in [facility] Medication Dose Route Frequency Provider Last Rate [...] mL 15 mL Oral Q12H REI Dillan Lioa MD 15 mL at 01/25/13 0801 ??? sodium chloride 0.9% infusion 10 mL/hr Intravenous Continuous PRN Dillan Liao MD ? ? NORepinephrine 16 mcg/mL (standard ADULT & Ree greater than 20kg) infusion 0- 30 mcg/min Intravenous Continuous Nelida Collins MD 30 mL/hr at 01/25/13 1000 8 mcg/min at 01/25/13 1000 ??? HYDROmorphone (DILAUDID) 1 mg/mL TUBING MILL SETTER 30 mL Intravenous TUBING MILL SETTER Only Dillan Liao MD ??? diphenhydrAMINE (BENADRYL) injection 25 mg 25 mg Intravenous Q30 Min PRN Dillan Liao MD ??? ondansetron (ZOFRAN) injection 4 mg 4 mg Intravenous Q30 Min PRN Dillan Liao MD ??? TUBING MILL SETTER [employer]apps Intravenous Continuous Dillan Liao MD ??? [...] 01/25/13 0820 Gross per 24 hour Intake 46038.1 ml Output 3240 ml Net 7568.1 ml [...] DILLAN RODGERS Ordered By: PRESLEY MADRID MR#: [id number] LOC: ICUS /Sex: 1950 (62 years), Male [...] plan: 45 minutes. Keanu Yeung M.D. Staff Consumer Safety Officer [facility] Heart and Vascular Center [facility] Pager #[phone] * Plan of Care - Jim Mac - 01/25/2013 3:35 AM EDT Problem: Pain, Acute (Adult, Obstetric) Goal: Acute Pain: Acceptable Pain Control/Comfort Level - Pain, Acute (Adult, Obstetric) Pt. Pain assessed and managed. TUBING MILL SETTER pump ordered. Pt. Understands use of pump, [...] Procedure Name Priority Date/Time Associated Diagnosis Comments MACHINE STRAP BUCKLER SCAN 01/31/2013 1:06 PM EDT LAB SCAN [...] AM EDT CT PELVIS SOFT TISSUE (GI SAW OPERATOR)W CONTRAST Routine 01/24/2013 12:55 AM EDT DIFFERENTIAL, [...] MD IMG CT ORDERABLES * SCAN DOC: MACHINE STRAP BUCKLER (01/31/2013 1:06 PM EDT) Anatomical Region Laterality [...] Thromboplastin Time 40(H) 25 - 35 sec DANETTE VALENCIA Comment: Recommended therapeutic PTT range for full dose unfractionated heparin is 80-114 seconds. Blood specimen (specimen) 01/30/2013 6:03 AM EDT 01/30/2013 6:14 AM EDT Narrative Resulting Agency Comment Spec In Lab Lesly Hope MD HEMATOLOGY ORDERABLE S [facility] * (ABNORMAL) Prothrombin Time (01/30/2013 6:03 AM EDT) Prothrombin Time 20.8(H) 12.0 - 15.0 sec DANETTE VALENCIA Comment: [facility] Transfusion Committee Guidelines: INR less than [...] Place PICC Line: Contact Vascular Access Page [phone] (01/29/2013 2:52 PM EDT) Narrative Toro Miller [...] to the planned procedure. Hand Hygiene: The surgery specialist did perform hand hygiene prior to line insertion. Catheter type: PICC Lot number: [id number] Procedure Technique: Skin was prepped with chlorhexidine. [...] to the planned procedure. Hand Hygiene: The surgery specialist did perform hand hygiene prior to line insertion. Catheter type: PICC Lot number: [id number] Procedure Technique: Skin was prepped with chlorhexidine. [...] MD HEMATOLOGY ORDERABLE S Performing Organization Address [facility] de Phone Number DANETTE [email or web address] * (ABNORMAL) Prothrombin Time (01/29/2013 7:02 AM EDT) Prothrombin Time 21.0(H) 12.0 - 15.0 sec DANETTE MILLENNIUM Comment: [facility] Transfusion Committee Guidelines: INR less than 2.0, PTT less than OR equal to 43.5 seconds, or Fibrinogen greater than or equal to 100 mg/dl indicate adequate procoagulant activity for hemostasis in patients without underlying bleeding disorders. International Normalization Ratio 1.8(H) 0.9 - 1.1 CERDAKSHA EntraTympanicENNIUM Blood specimen (specimen) 01/29/2013 7:02 AM EDT 01/29/2013 7:25 AM EDT Narrative Resulting Agency Comment Spec In Lab Lesly Hope MD HEMATOLOGY ORDERABLE S Performing Organization Address [facility] de Phone Number DANETTE HARTMANENNIUM * [...] 0.0 - 0.5 x10(3)/mc L CERNER MILLENNIUM Perdido Absolute Manual 0.1(H) 0.0 - 0.0 x10(3)/mc [...] of Diabetes Mellitus, Position Statement from the [place] [employer]. ??Diabetes Care, Volume 33, Supplement [...] References: http://nkdep.nih.gov/resources/NKDEP_Suggestn4Labs_0606_508.pdf http://www.kidney.org/professionals/kls/pdf/faq_gfr.pdf Jorje K, Rebecca NA, Draiana AK, Darren TS, Darci AD, Halle HAMILTON. [...] MD HEMATOLOGY ORDERABLE S Performing Organization Address [facility] Co de Phone Number DANETTE PRIDEIUM * (ABNORMAL) Prothrombin Time (01/28/2013 2:29 AM EDT) Prothrombin Time 21.0(H) 12.0 - 15.0 sec CERDAKSHA HARTMANENNIUM Comment: [facility] Transfusion Committee Guidelines: INR less than [...] MD HEMATOLOGY ORDERABLE S Performing Organization Address [facility] Co de [...] MD HEMATOLOGY ORDERABLE S Performing Organization Address [facility] Co de Phone Number DANETTE VALENCIA * (ABNORMAL) Prothrombin Time (01/27/2013 12:27 PM EDT) Prothrombin Time 20.8(H) 12.0 - 15.0 sec DANETTE VALENCIA Comment: [facility] Transfusion Committee Guidelines: INR less than 2.0, PTT less than OR equal to 43.5 seconds, or Fibrinogen greater than or equal to 100 mg/dl indicate adequate procoagulant activity for hemostasis in patients without underlying bleeding disorders. International Normalization Ratio 1.7(H) 0.9 - 1.1 [facility] VALENCIA Blood specimen (specimen) 01/27/2013 12:27 PM EDT 01/27/2013 12:37 PM EDT Narrative Resulting Agency Comment Spec In Lab Presley Madrid MD HEMATOLOGY ORDERABLE S Performing Organization Address [facility]/ZIP Co de Phone Number DANETTE VALENCIA * (ABNORMAL) BMP w/fasting Glucose (01/27/2013 12:27 PM EDT) Glucose Fasting 136(H) 65 - 99 mg/dL [facility] HARTMANENNIUM Comment: ?Fasting* Glucose Interpretive Criteria Normal [...] of Diabetes Mellitus, Position Statement from the [place] Diabetes [employer]. ??Diabetes Care, Volume 33, Supplement [...] Lab Presley Madrid MD CHEMISTRY ORDERABLES [facility] * (ABNORMAL) CBC (with Diff) (01/27/2013 12:27 [...] RODGERS ?Ordered By: LESLY HOPE ? MR#: [id number] ?LOC: ??2WST ? /Sex: ??1950 (62 years), [...] BMP w/fasting Glucose (01/27/2013 2:00 AM EDT) [facility] Glucose Fasting 126(H) 65 - 99 mg/dL [...] of Diabetes Mellitus, Position Statement from the [place] [employer]. ??Diabetes Care, Volume 33, Supplement [...] International Normalization Ratio 1.9(H) 0.9 - 1.1 [facility] Blood specimen (specimen) 01/27/2013 2:00 AM EDT 01/27/2013 2:11 AM EDT Narrative Resulting Agency Comment Spec In Lab Presley Madrid MD HEMATOLOGY ORDERABLE S Performing Organization Address [facility] de Phone Number [facility] EntraTympanicGRANADA [facility] * (ABNORMAL) APTT (01/27/2013 2:00 AM EDT) Partial Thromboplastin Time 53(H) 25 - 35 sec [facility] Comment: Recommended therapeutic PTT range for full dose unfractionated heparin is 80-114 seconds. Blood specimen (specimen) 01/27/2013 2:00 AM EDT 01/27/2013 2:11 AM EDT Narrative Resulting Agency Comment Spec In Lab Presley Madrid MD HEMATOLOGY ORDERABLE S Performing Organization Address [facility] de Phone Number [facility] EntraTympanicTUCSON MEDICAL CENTEREquiom * Blood culture (01/27/2013 2:00 AM EDT) Blood Culture ? Patient Name: DILLAN RODGERS ?Ordered By: LESLY HOPE ? MR#: [id number] ?LOC: ??2WST ? /Sex: ??1950 (62 years), [...] VISHAL Ocampo ? (Age): 1950(62) Med Rec#: ?[id number] ? Sex: ?M ? Site Loc: ?[facility] ? Ht / Wt: ??(cm)/(kg) ? Pt. Loc: ? ICU ?BSA: ? Study Date: ?01/26/2013 ? Pt. Type: Inpatient Tape: ? Referring: Lesly Hope ([id number]) Referring: ABBY CUMMINS F Reading: Earnest Yates ([id number]) Dialysis Biomed Technician: Yanira Sexton ([id number]) Interpreting Fellow: Yanira Sexton ([id number]) Diagnosis:CPT Code(s): Indication(s): ??Endocarditis Rhythm: Sinus SUMMARY: [...] 01/26/2013 15:07:26 Images reviewed and interpretation verified [facility] Cardiac Ultrasound Laboratory Procedure Note Earnest Yates MD - 01/26/2013 Procedure: Transesophageal Echocardiogram Patient: VISHAL Ocampo (Age): 1950(62) Med Rec#: [id number] Sex: M Site Loc: [facility] Ht / Wt: (cm)/(kg) Pt. Loc: ICU BSA: Study Date: 01/26/2013 Pt. Type: Inpatient Tape: Referring: Lesly Hope ([id number]) Referring: ABBY CUMMINS F Reading: Earnest Yates ([id number]) Dialysis Biomed Technician: Yanira Sexton ([id number]) Interpreting Fellow: Yanira Sexton ([id number]) Diagnosis:CPT Code(s): Indication(s): Endocarditis Rhythm: Sinus SUMMARY: [...] 01/26/2013 15:07:26 Images reviewed and interpretation verified [facility] Cardiac Ultrasound Laboratory Lesly Hope MD ECHO [...] BMP w/fasting Glucose (01/26/2013 1:10 PM EDT) [facility] Glucose Fasting 88 65 - 99 mg/dL [...] of Diabetes Mellitus, Position Statement from the [place] [employer]. ??Diabetes Care, Volume 33, Supplement [...] In Lab Lesly Hope MD CHEMISTRY ORDERABLES [facility] * (ABNORMAL) CBC (with Diff) (01/26/2013 [...] EDT Presley Madrid MD HEMATOLOGY ORDERABLE S [facility]MANGRA[facility] * Blood culture (01/26/2013 1:50 AM EDT) Blood Culture ? Patient Name: DILLAN RODGERS ?Ordered By: LESLY HOPE ? MR#: [id number] ?LOC: ??2WST ? /Sex: ??1950 (62 years), ? Male ? PROCEDURE: Blood Culture ?SOURCE: Blood ? COLLECTED: 01/26/2013 01:50 ? STARTED: 01/26/2013 02:34 ? FINAL REPORT ? Final Report ? Verified:2012 15:10 ? No growth at 5 days. ? PRELIMINARY REPORT ? Preliminary Report ? Verified:2012 07:10 ? No growth at 4 days. ? [facility] Blood specimen (specimen) 01/26/2013 1:50 AM EDT 01/26/2013 2:34 AM EDT Narrative Resulting Agency Comment Spec In Lab Lesly Hope MD MICROBIOLOGY - BLOOD ORDERABLES Performing Organization Address [facility] de Phone Number [facility] * (ABNORMAL) APTT (01/26/2013 1:50 AM EDT) Partial Thromboplastin Time 60(H) 25 - 35 sec [facility] Comment: Recommended therapeutic PTT range for full dose unfractionated heparin is 80-114 seconds. Blood specimen (specimen) 01/26/2013 1:50 AM EDT 01/26/2013 2:08 AM EDT Narrative Resulting Agency Comment Spec In Lab Presley Madrid MD HEMATOLOGY ORDERABLE S Performing Organization Address [facility] de Phone Number [facility] * (ABNORMAL) Prothrombin Time (01/26/2013 1:50 AM EDT) Prothrombin Time 25.6(H) 12.0 - 15.0 sec [facility] Comment: [facility] Transfusion Committee Guidelines: INR less than [...] of Diabetes Mellitus, Position Statement from the [place] Diabetes [employer]. ??Diabetes Care, Volume 33, Supplement [...] Madrid MD CHEMISTRY ORDERABLES Performing Organization Address [facility]/ZIP Co de Phone Number CERDAKSHA MILLENNIUM * [...] of Diabetes Mellitus, Position Statement from the [place] [employer]. ??Diabetes Care, Volume 33, Supplement [...] Hope MD CHEMISTRY ORDERABLES Performing Organization Address [facility] Phone Number DANETTE PRIDEIUM * (ABNORMAL) APTT (01/25/2013 1:00 PM EDT) Partial Thromboplastin Time 58(H) 25 - 35 sec CERDAKSHA MILLENNIUM Comment: Recommended therapeutic PTT range for full dose unfractionated heparin is 80-114 seconds. Blood specimen (specimen) 01/25/2013 1:00 PM EDT 01/25/2013 1:47 PM EDT Narrative Resulting Agency Comment Spec In Lab Lesly Hope MD HEMATOLOGY ORDERABLE S Performing Organization Address [facility] Phone Number DANETTE HARTMANENNIUM * (ABNORMAL) Prothrombin Time (01/25/2013 1:00 PM EDT) Prothrombin Time 28.7(H) 12.0 - 15.0 sec CERDAKSHA MILLENNIUM Comment: [facility] Transfusion Committee Guidelines: INR less than [...] MD HEMATOLOGY ORDERABLE S Performing Organization Address [facility] de Phone Number DANETTE HARTMANENNIUM * [...] MD HEMATOLOGY ORDERABLE S Performing Organization Address [facility]/ZIP Co de Phone Number [facility] PRIDEIUM * Lactic acid, plasma (01/25/2013 7:48 AM EDT) Lactic Acid 1.1 0.5 - 2.2 mmol/L [facility] Blood specimen (specimen) 01/25/2013 7:48 AM EDT 01/25/2013 7:58 AM EDT Narrative Resulting Agency Comment Spec In Lab Lesly Hope MD CHEMISTRY ORDERABLES Performing Organization Address [facility]/ZIP Co de Phone Number [facility] MINNIETUCSON MEDICAL CENTERIUM * Lactic acid, plasma (01/25/2013 3:45 AM EDT) Lactic Acid 1.2 0.5 - 2.2 mmol/L [facility] MINNIETUCSON MEDICAL CENTERIUM Blood specimen (specimen) 01/25/2013 3:45 [...] 1:15 AM EDT 01/25/2013 1:24 AM EDT Prelsey Madrid MD HEMATOLOGY ORDERABLE S CERNER MINNIEENNIUM * (ABNORMAL) APTT (01/25/2013 1:15 AM EDT) Partial Thromboplastin Time 51(H) 25 - 35 sec [facility] Comment: Recommended therapeutic PTT range for full dose unfractionated heparin is 80-114 seconds. Blood specimen (specimen) 01/25/2013 1:15 AM EDT 01/25/2013 1:24 AM EDT Narrative Resulting Agency Comment Spec In Lab Presley Madrid MD HEMATOLOGY ORDERABLE S Performing Organization Address [facility] de Phone Number [facility] * (ABNORMAL) Prothrombin Time (01/25/2013 1:15 AM EDT) Prothrombin Time 29.4(H) 12.0 - 15.0 sec [facility] Comment: [facility] Transfusion Committee Guidelines: INR less than 2.0, PTT less than OR equal to 43.5 seconds, or Fibrinogen greater than or equal to 100 mg/dl indicate adequate procoagulant activity for hemostasis in patients without underlying bleeding disorders. International Normalization Ratio 2.7(H) 0.9 - 1.1 [facility] Blood specimen (specimen) 01/25/2013 1:15 AM EDT 01/25/2013 1:24 AM EDT Narrative Resulting Agency Comment Spec In Lab Presley Madrid MD HEMATOLOGY ORDERABLE S Performing Organization Address [facility] de Phone Number [facility] * (ABNORMAL) BMP w/fasting Glucose (01/25/2013 1:15 AM EDT) Glucose Fasting 120(H) 65 - 99 mg/dL [facility] Comment: ?Fasting* Glucose Interpretive Criteria Normal ?65-99 [...] of Diabetes Mellitus, Position Statement from the [place] Diabetes [employer]. ??Diabetes Care, Volume 33, Supplement [...] In Lab Presley Madrid MD CHEMISTRY ORDERABLES [facility] * (ABNORMAL) CBC (with Diff) (01/25/2013 1:15 [...] MD HEMATOLOGY ORDERABLE S Performing Organization Address [place]/[facility] Co de Phone Number DANETTE PRIDEIUM * Phosphorus (01/25/2013 1:15 AM EDT) Phosphorus 4.3 2.5 - 4.5 mg/dL DANETTE PRIDEIUM Blood specimen (specimen) 01/25/2013 1:15 AM EDT 01/25/2013 1:24 AM EDT Narrative Resulting Agency Comment Spec In Lab Presley Madrid MD CHEMISTRY ORDERABLES Performing Organization Address [place]/[facility] Co de Phone Number DANETTE PRIDEIUM * (ABNORMAL) Magnesium (01/25/2013 1:15 AM EDT) Magnesium 0.65(L) 0.69 - 1.07 mmol/L DANETTE PRIDEIUM Blood specimen (specimen) 01/25/2013 1:15 AM EDT 01/25/2013 1:24 AM EDT Narrative Resulting Agency Comment Spec In Lab Presley Madrid MD CHEMISTRY ORDERABLES Performing Organization Address [place]/[facility] Co de Phone Number DANETTE PRIDEIUM * Lactic acid, plasma (01/24/2013 11:45 PM EDT) Lactic Acid 2.2 0.5 - 2.2 mmol/L DANETTE HARTMNAENNIUM Blood specimen (specimen) 01/24/2013 11:45 PM EDT [...] Comment: Total Hemoglobin (in gm/dL) ?Based on [facility] Hematology ranges: ?Age ?Reference Range Less than [...] CARE TEST O RDERABLES Performing Organization Address [facility] Co de [...] 0.2 - 1.0 x10(3)/mc L CERNER MILLENNIUM Perdido Absolute Manual 0.6(H) 0.0 - 0.0 x10(3)/mc [...] Metabolic Panel (non-fasting) (01/24/2013 5:40 PM EDT) [facility] Glucose 114 60 - 199 mg/dL CERNER [...] Hope MD CHEMISTRY ORDERABLES Performing Organization Address [facility] Co de [...] MD HEMATOLOGY ORDERABLE S Performing Organization Address [facility] de Phone Number DANETTE VALENCIA * (ABNORMAL) Prothrombin Time (01/24/2013 5:40 PM EDT) Prothrombin Time 24.3(H) 12.0 - 15.0 sec DANETTE PRIDEIUM Comment: [facility] Transfusion Committee Guidelines: INR less than [...] MD HEMATOLOGY ORDERABLE S Performing Organization Address [facility] Phone Number DANETTE VALENCIA * (ABNORMAL) Lactic acid, plasma (01/24/2013 5:40 PM EDT) Lactic Acid 4.1(H) 0.5 - 2.2 mmol/L DANETTE PRIDEIUM Blood specimen (specimen) 01/24/2013 5:40 PM EDT 01/24/2013 6:13 PM EDT Narrative Resulting Agency Comment Spec In Lab Lesly Hope MD CHEMISTRY ORDERABLES Performing Organization Address [facility] de Phone Number DANETTE VALENCIA * CT Drain-Peritoneal (01/24/2013 5:14 PM EDT) Anatomical Region Laterality Modality Abdomen Computed Tomogra phy 01/24/2013 5:14 PM EDT Impressions 01/24/2013 8:37 PM EDT IMPRESSION: Technically successful drain placement in left pelvic abscess. ?? Recommend: [place] drainage, flush with 5-10 cc NS q 8h Narrative 01/24/2013 8:37 PM EDT VIR PROCEDURE NOTE: CT-guided drainage pelvic abscess ?? Acc #: [id number] ?? INDICATION: Abscess ?? Status post robotic [...] NOTE: CT-guided drainage pelvic abscess Acc #: [id number] INDICATION: Abscess Status post robotic prostatectomy/LND approximately [...] lidocaine SQ was administered for anesthesia, and [id number] needle was advanced under CT guidance into [...] drain placement in left pelvic abscess. Recommend: [place] drainage, flush with 5-10 cc NS q 8h Presley Madrid MD [facility] [place] ORDERABLES * Anaerobic Culture (01/24/2013 4:45 PM EDT) Anaerobic Culture ? Patient Name: DILLAN RODGERS ?Ordered By: PRESLEY MADRID ? MR#: [id number] ?LOC: ??2WST ? /Sex: ??1950 (62 years), [...] anaerobic organisms isolated to date ? [facility] Pelvic Fluid 01/24/2013 4:45 PM EDT 01/24/2013 5:24 PM EDT Comment:CT GUIDED PELVIC FLU ID COLLECTION DRAIN PLACEMENT Narrative Resulting Agency Comment Spec In Lab Presley Madrid MD MICROBIOLOGY - GENER AL ORDERABLES [facility] * Body fluid culture (01/24/2013 4:45 PM EDT) Body Fluid Culture ? Patient Name: DILLAN RODGERS ?Ordered By: PRESLEY MADRID ? MR#: [id number] ?LOC: ??ISCU ? /Sex: ??1950 (62 years), [...] species ? Patient: DILLAN RODGERS ? MR#: [id number] ? SUSCEPTIBILITY RESULTS ? Escherichia coli ?NINFA [...] infections. Synergy is predicted for Gentamicin. ? [facility] Pelvic Fluid 01/24/2013 4:45 PM EDT 01/24/2013 5:24 PM EDT Comment:CT GUIDED PELVIC FLU ID COLLECTION DRAIN PLACEMENT Narrative Resulting Agency Comment Spec In Lab Presley Madrid MD MICROBIOLOGY - GENER AL ORDERABLES [facility] * IR arterial intervention (01/24/2013 4:15 PM [...] iliac artery embolization with gelfoam ?? ACC#: [id number] ?? Indication for Procedure: 62 yr old M patient, s/p robotic prostatectomy/LND approximately 2 months ago. Post-op course was notable for pelvic hematoma. 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 ?? Most recently, he presented to an outside hospital with bilateral hip pain and fever. He was subsequently transferred to [facility]. CECT scan demonstrated left sided pelvic hematoma, [...] internal iliac artery embolization with gelfoam ACC#: [id number] Indication for Procedure: 62 yr old M patient, s/p roboticprostatectomy/LND approximately 2 months ago. Post-op course was notable for pelvichematoma. 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 Most recently, he presented to an outside hospital with bilateral hip painand fever. He was subsequently transferred to [facility]. CECT scan demonstratedleft sided pelvic hematoma, displacing [...] wire and 6 Fr sheath. 5 Fr [id number] advanced and used to cross the aortic [...] BANK PRODUCT O RDERABLES Performing Organization Address [facility] Co de Phone Number DANETTE VALENCIA * Prepare RBC (01/24/2013 2:24 PM EDT) Dispensed? Yes CERDAKSHA HARTMANENNIUM Blood specimen (specimen) 01/24/2013 2:24 PM EDT 01/24/2013 2:24 PM EDT Narrative Resulting Agency Comment Spec In Lab Ermias Moya MD BLOOD BANK PRODUCT O RDERABLES Performing Organization Address [facility] Co de Phone Number DANETTE PRIDEIUM * Prepare RBC (01/24/2013 2:20 PM EDT) Dispensed? Yes CERNER MILLENNIUM Blood specimen (specimen) 01/24/2013 2:20 PM EDT 01/24/2013 2:21 PM EDT Ermias Moya MD BLOOD BANK PRODUCT O RDERABLES Performing Organization Address City/[facility] de Phone Number DANETTE HARTMANENNIUM * [...] MD HEMATOLOGY ORDERABLE S Performing Organization Address [facility] de Phone Number DANETTE PRIDEIUM * Prepare thawed plasma (01/24/2013 11:54 AM EDT) Dispensed? Yes CERNER MILLENNIUM Blood specimen (specimen) 01/24/2013 11:54 AM EDT 01/24/2013 11:54 AM EDT Narrative Resulting Agency Comment Spec In Lab Clyde Wyman MD BLOOD BANK PRODUCT O RDERABLES Performing Organization Address [facility]/State/ZIP Co de Phone Number DANETTE HARTMANENNIUM * Blood culture (01/24/2013 10:28 AM EDT) Blood Culture ? Patient Name: DILLAN RODGERS ?Ordered By: PRESLEY MADRID ? MR#: [id number] ?LOC: ??ISCU ? /Sex: ??1950 (62 years), [...] 0.0 - 0.2 x10(3)/mc L CERNER MILLENNIUM Perdido Absolute Manual 0.0 0.0 - 0.0 x10(3)/mc L CERNER MILLENNIUM Myelo Absolute Manual 0.0 0.0 - 0.0 x10(3)/mc L CERNER MILLENNIUM Nucleated Red Cell Manual 7(H) 0 - 0 % CERNER MILLENNIUM Total Cells Ct 100 CERNE R MILLENNIUM Plat estimate Normal CERNER MILLENNIUM RBC Morphology Abnormal CERNE R MILLENNIUM Ovalocytes 1-5 /HPF CERNER MILLENNIUM Lindon Cells 1-5 /HPF CERNER MILLENNIUM Plat, Giant [...] RODGERS ?Ordered By: PRESLEY MADRID ? MR#: [id number] ?LOC: ??ISCU ? /Sex: ??1950 (62 years), [...] testing is required, contact the Microbiology ? Waste Salvager. ? Enterococcus faecalis isolated ? Isolate saved. If future testing is required, contact the Microbiology ? Waste Salvager. ? PRELIMINARY REPORT ? Preliminary Report ? Verified:01/27/20 13 07:51 ? Escherichia coli isolated ? Isolate saved. If future testing is required, contact the Microbiology ? Waste Salvager. ? Enterococcus faecalis isolated ? Susceptibility testing in progress ? Patient: DILLAN RODGERS ? MR#: [id number] ? SUSCEPTIBILITY RESULTS ? Escherichia coli ?NINFA [...] Presley Madrid MD MICROBIOLOGY - BLOOD ORDERABLES [facility] * (ABNORMAL) Urinalysis with microscopic (01/24/2013 [...] Urine Dipstick Cloudy(A) Clear CERNER MILLENNIUM Specific [place] Urine Automated >1.035 1.002 - 1.030 CERNER [...] Madrid MD URINE ORDERABLES Performing Organization Address [facility] Co de Phone Number CERNER MILLENNIUM * Urine Hold (01/24/2013 10:08 AM EDT) Hold, Urine Sample in lab. DANETTE HARTMANENNIUM Urine specimen (specimen) 01/24/2013 10:08 AM EDT 01/24/2013 10:22 AM EDT Presley Madrid MD URINE ORDERABLES Performing Organization Address City/[facility] Co de Phone Number DANETTE PRIDEIUM * Urine culture Clean Catch Urine (01/24/2013 10:08 AM EDT) Urine Culture ? Patient Name: DILLAN RODGERS ?Ordered By: PRESLEY MADRID ? MR#: [id number] ?LOC: ??ICUS ? /Sex: ??1950 (62 years), [...] ? Patient: VISHAL, DILLAN W ? MR#: [id number] ? Enterococcus species ? ___ ?NINFA Interp [...] - GENER AL ORDERABLES Performing Organization Address [facility] Co de Phone Number [facility] * Prepare thawed plasma (01/24/2013 9:25 AM EDT) Dispensed? Yes DANETTE VALENCIA Blood specimen (specimen) 01/24/2013 9:25 AM EDT 01/24/2013 9:25 AM EDT Narrative Resulting Agency Comment Spec In Lab Clyde Wyman MD BLOOD BANK PRODUCT O RDERABLES Performing Organization Address [facility] de Phone Number [facility] * Prepare thawed plasma (01/24/2013 8:35 AM EDT) Dispensed? Yes DANETTE VALENCIA Blood specimen (specimen) 01/24/2013 8:35 AM EDT 01/24/2013 8:33 AM EDT Narrative Resulting Agency Comment Spec In Lab Presley Madrid MD BLOOD BANK PRODUCT O RDERABLES Performing Organization Address [facility] Co de Phone Number DANETTE VALENCIA * (ABNORMAL) Differential, Automated (01/24/2013 6:02 AM EDT) Neutrophil % 81.8(H) 34.0 - 71.0 % [facility] Neutrophil Absolute 10.07(H) 1.50 - 6.30 x10(3)/mc [...] CERNER MILLENNIUM Schistocyte 1-5 /HPF CERNER MILLENNIUM Lindon Cells 1-5 /HPF CERNER MILLENNIUM Blood specimen [...] BANK LAB ORDER JAMES Performing Organization Address City/[facility] Co de Phone Number DANETTE PRIDEIUM * ABO/Rh Typing (01/24/2013 12:08 AM EDT) ABORH Type A Pos CERDAKSHA HARTMANENNIUM Blood specimen (specimen) 01/24/2013 12:08 AM EDT 01/24/2013 12:35 AM EDT Narrative Resulting Agency Comment Spec In Lab Presley Madrid MD BLOOD BANK LAB ORDER JAMES Performing Organization Address City/[facility]/ZIP Co de Phone Number DANETTE PRIDEIUM * (ABNORMAL) Basic Metabolic Panel (non-fasting) (01/24/2013 12:08 AM EDT) Glucose 105 60 - 199 mg/dL [facility] MILLENNIUM Comment:Diabetes: >=200 mg/d L plus [...] Madrid MD CHEMISTRY ORDERABLES Performing Organization Address [facility] Co de Phone Number DANETTE EntraTympanicDEX * (ABNORMAL) Prothrombin Time (01/24/2013 12:08 AM EDT) Prothrombin Time 32.0(H) 12.0 - 15.0 sec DANETTE VALENCIA Comment: [facility] Transfusion Committee Guidelines: INR less than [...] MD HEMATOLOGY ORDERABLE S Performing Organization Address [facility] Co de Phone Number [facility] * (ABNORMAL) APTT (01/24/2013 12:08 AM EDT) [...] EDT 2 tablets HYDROmorphone (DILAUDID) 1 mg/mL TUBING MILL SETTER 30 mL Intravenous, TUBING MILL SETTER ONLY, Starting on Tue01/24/13 at 1815, Until [...] Hardin RN) 0846 (Given - Provider: Pauline Albreto RN) levothyroxine (SYNTHROID) tablet 50 mcg (CANCELED) [...] 1745, Until Discontinued 0601 (Given - Provider: Paloa Lou, LANIE)1659 (Not Given - Provider: Belén Miguel RN - Reason: See comment - Comment: IVF infusing) 0545 (Given - Provider: Becky Hairston RN)1745 (Given - Provider: Nohemi Preston RN) 0459 (Given - Provider: Nancy Hardin RN)1700 (Given - Provider: Pauline Alberot RN) warfarin (COUMADIN) tablet 5 mg (COMPLETED) [...] RN) documented in this encounter Care Teams Sharepoint Manager Relationship Specialty Start Date End Date Farnaz Patel MD [address] [place] [address] PCP - General 10/26/12 documented as of this encounter
--- OUTSIDE RECORDS SUMMARY | 2024-06-07 19:45 | XMS_ITS | Encounter Summary ---
Author Organization [facility] [place] [address] Care Team Providers Care Food Manager Name Role Phone Farnaz Pineda MD Primary Care Provider Encounter Details Date Type Department Care Team (Late st Contact Info) Description 12/28/2012 9:30 AM EDT Office Visit [place] [phone] Sadie Soto [place] Social History Tobacco Use [...] filedocumented in this encounter Care Teams Food Manager Relationship Specialty Start Date End Date Farnaz Pineda MD [address] [place] [address] PCP - General 10/26/12 documented as of this encounter
--- OUTSIDE RECORDS SUMMARY | 2024-06-07 19:45 | XMS_ITS | Encounter Summary ---
Author Organization [facility] [address] Care Team Providers Care Senior Management Consultant Name Role Phone Farnaz Pineda MD Primary Care Provider [phone] Encounter Details Date Type Department Care Team (Late st Contact Info) Description 01/04/2013 10:00 AM EDT Office Visit [place] [phone] Petrona Seg[place], [place] Social History Tobacco Use [...] on filedocumented in this encounter Care Teams Senior Management Consultant Relationship Specialty Start Date End Date Farnaz Pineda MD [address] [place] [address] PCP - General 10/26/12 documented as of this encounter
--- OUTSIDE RECORDS SUMMARY | 2024-06-07 19:45 | XMS_ITS | Encounter Summary ---
Author Organization [place] [address] Care Team Providers Care Director Communications Name Role Phone Farnaz Pineda MD Primary Care Provider [phone] Encounter Details Date Type Department Care Team (Late st Contact Info) Description 01/03/2013 4:45 PM EDT [place] [phone] Ross Madrid MD [facility] [address] Prostate cancer (Primary Dx) Discharge Disposition: Home [...] prostate documented in this encounter Care Teams Director Communications Relationship Specialty Start Date End Date Farnaz Pineda MD [address] [place] [address] PCP - General 10/26/12 documented as of this encounter
--- OUTSIDE RECORDS SUMMARY | 2024-06-07 19:45 | XMS_ITS | Encounter Summary ---
Author Organization [facility] [place] [address] Care Team Providers Care Animal Keeper Name Role Phone Farnaz Pineda MD Primary Care Provider [phone] Reason for Visit * Reason Comments Urinary Retention Encounter Details Date Type Department Care Team (Late st Contact Info) Description 01/18/2013 10:30 AM EDT [place] [phone] Ross Madrid MD [facility] [place] [address] Hematuria (Primary Dx) Discharge Disposition: Home Social [...] unspecified documented in this encounter Care Teams Animal Keeper Relationship Specialty Start Date End Date Farnaz Pineda MD [address] [place] [address] PCP - General 10/26/12 documented as of this encounter
--- OUTSIDE RECORDS SUMMARY | 2024-06-07 19:45 | XMS_ITS | Encounter Summary ---
Author Organization [facility] [place] [address] Care Team Providers Care Nurse Administrator Name Role Phone Farnaz Pineda MD Primary Care Provider [phone] Reason for Visit * Reason Comments Follow-up Encounter Details Date Type Department Care Team (Late st Contact Info) Description 01/22/2013 3:20 PM EDT [place] [phone] Ross Madrid MD [facility] [place] [address] Prostate cancer (Primary Dx) Discharge Disposition: Home [...] MD HEMATOLOGY ORDERABLE S Performing Organization Address [facility] Co de Phone Number DANETTE PRIDEIUM * (ABNORMAL) Prothrombin Time (01/22/2013 3:52 PM EDT) Prothrombin Time 28.3(H) 12.0 - 15.0 sec CERDAKSHA MILLENNIUM Comment: [facility] Transfusion Committee Guidelines: INR less than 2.0, [...] prostate documented in this encounter Care Teams Nurse Administrator Relationship Specialty Start Date End Date Farnaz Pineda MD [address] [place] [address] PCP - General 10/26/12 documented as of this encounter
--- OUTSIDE RECORDS SUMMARY | 2024-06-07 19:45 | XMS_ITS | Encounter Summary ---
Author Organization [facility] [place] [address] Care Team Providers Care Stained Glass Artist Name Role Phone Farnaz Pnieda MD Primary Care Provider [phone] Encounter Details Date Type Department Care Team (Latest Contact Info) Description 01/18/2013 1:40 PM EDT Procedure [place] [phone] Ross Madrid MD [facility] [place] [address] Hematuria (Primary Dx) Discharge Disposition: Home Social [...] unspecified documented in this encounter Care Teams Stained Glass Artist Relationship Specialty Start Date End Date Farnaz Pineda MD [address] [place] [address] PCP - General 10/26/12 documented as of this encounter
--- OUTSIDE RECORDS SUMMARY | 2024-06-07 19:45 | XMS_ITS | Encounter Summary ---
Author Organization [facility] [place] [address] Care Team Providers Care Biology Instructor Name Role Phone Farnaz Pineda MD Primary Care Provider [phone] Encounter Details Date Type Department Care Team (Latest Contact Info) Description 01/03/2013 5:32 PM EDT - 01/05/2013 2:35 PM EDT Hospital Encounter [place] [address] Presley Madrid MD [facility] [place] [address] Discharge Disposition: Home Social History Tobacco Use [...] Vargas RN - 01/04/2013 6:02 PM EDT [facility] Interventional Radiology Post Angiography Instructions Procedure: IVC [...] call and ask for the Vascular resident cushion spring assembler. 10. If you are a diabetic and [...] may be used if needed and are uyrv-rdg-ujezhvq (OTC) medications available at most local pharmacies. Prunes or prune juice, taken daily, can also be helpful for constipation treatment or p revention and are available at most [employer]. Driving Restrictions*: - No driving if you [...] timely manner. Your surgeon may not be Jacquard Loom Fixer, especially during the night or on weekends, [...] Vargas RN - 01/04/2013 2:54 PM EDT [facility] NURSING DATABASE Name: DILLAN AL Date of : 1950 AGE 62 y.o. Address: [address] [place] [phone] (home) [phone] (work) Mobile: Telephone Information: Referring Provider: Leonardo Barrios Reason for Visit: IVC filter No Known Allergies Pertinent PMH: Patient Active Problem List Diagnoses Code ??? S/P prostatectomy V45.89 ??? Prostate cancer 185 Pertinent PSH: Past Surgical History Procedure Date ??? Lap, prostatectomy, radical, w/nerve spare 11/20/2012 @LAPAROSCOPIC PROSTATECTOMY, ROBOTICS ASSISTED performed by Presley Madrid MD at [facility] OR ??? Lap, pelvic lymphadenectomy 11/20/2012 LAPAROSCOPY,WITH BILATERAL TOTAL PELVIC LYMPHADENECTOMY, ROBOTIC performed by Presley Madrid MD at [facility] OR ? ? Cystourethroscopy w/irrig & evac clots 12/27/2012 CYSTO, IRRIGATION & EVACUATION OF CLOTS performed by Presley Madrid MD at [facility] OR Date/Procedure Comments: No pertinent RAD [...] puff into the lungs every 12 hours. Rajnan Reddy MD aspirin 81 mg EC tablet Take 81 mg by mouth daily. Ranjan Reddy MD levothyroxine (SYNTHROID) 50 mcg tablet Take 50 mcg by mouth daily. Ranjan Reddy MD For outpatient procedures: This patient has been informed that they require a delivery driver/supervisor to drive them home after this procedure. In the absence of a delivery driver/supervisor, IR will not be able to perform [...] in this encounter H&P Notes * Veronique Rzio - 01/04/2013 4:49 PM EDT The patient's [...] these segments. NOTE: Fabian Ribeiro MD (pager #[phone]) was notified of the preliminary Results. DVT [...] recent surgery, mechanical valve). We recommend a Radnor/IVC filter placemen to protect against pulmonary emboli. [...] PM EDT CT PELVIS SOFT TISSUE (GI HARPSICHORD MAKER) WO CONTRAST Routine 01/04/2013 10:55 AM EDT [...] 12.0 - 15.0 sec DANETTE MINNIESERENITYIUM Comment: [facility] Transfusion Committee Guidelines: [...] Text Report Department: Vascular Surgery Lab Patient: [id number] (DILLAN AL) CPT Code: 22932 ICD-9: 451.19 Referring Physician: PRESLEY MADRID Indication: [...] these segments. NOTE: Fabian Ribeiro MD (pager #[phone]) was notified of the preliminary results. Signed [...] intervals supplied above were not validated at [facility]. Results from pediatric patients [...] HEMATOLOGY ORDERABLE S Performing Organization Address [facility] de Phone Number DANETTE VALENCIA * (ABNORMAL) APTT (01/03/2013 7:42 PM EDT) Partial Thromboplastin Time 53(H) 25 - 35 sec [facility] M[facility] Comment: Recommended therapeutic PTT range for full dose unfractionated heparin is 80-114 seconds. Blood specimen (specimen) 01/03/2013 7:42 PM EDT 01/03/2013 7:44 PM EDT Narrative Resulting Agency Comment Spec In Lab Presley Madrid MD HEMATOLOGY ORDERABLE S Performing Organization Address [facility] de Phone Number DANETTE HARTMANENNIUM * (ABNORMAL) Prothrombin Time (01/03/2013 7:42 PM EDT) Prothrombin Time 23.6(H) 12.0 - 15.0 sec [facility] MILLENNIUM Comment: [facility] Transfusion Committee Guidelines: INR less than 2.0, PTT less than OR equal to 43.5 seconds, or Fibrinogen greater than or equal to 100 mg/dl indicate adequate procoagulant activity for hemostasis in patients without underlying bleeding disorders. International Normalization Ratio 2.0(H) 0.9 - 1.1 [facility] Blood specimen (specimen) 01/03/2013 7:42 PM EDT 01/03/2013 7:44 PM EDT Narrative Resulting Agency Comment Spec In Lab Presley Madrid MD HEMATOLOGY ORDERABLE S Performing Organization Address [facility] Co de Phone Number DANETTE HARTMANCOPPER SPRINGS HOSPITALI[facility] * (ABNORMAL) BMP w/fasting Glucose (01/03/2013 7:42 PM EDT) Glucose Fasting 126(H) 65 - 99 mg/dL [facility]ILLCOP[facility]ITAL[facility] Comment: ?Fasting* Glucose Interpretive Criteria Normal [...] of Diabetes Mellitus, Position Statement from the [place] [employer]. ??Diabetes Care, Volume 33, Supplement 1, Oct 2009 Blood Urea Nitrogen 12 10 - 20 mg/dL CERNER MILLENNIUM Creatinine 1.22 0.80 - 1.50 mg/dL CERNER MILLENNIUM Comment: Please note that the pediatric reference intervals supplied above were not validated at [facility]. Results from pediatric patients [...] sop) documented in this encounter Care Teams Biology Instructor Relationship Specialty Start Date End Date Farnaz Pineda MD [address] [place] [address] PCP - General 10/26/12 documented as of this encounter
--- OUTSIDE RECORDS SUMMARY | 2024-06-07 19:46 | XMS_ITS | Encounter Summary ---
Author Organization [facility] [place] [address] Care Team Providers Care Graphic Arts Technician Name Role Phone Farnaz Pineda MD Primary Care Provider [phone] Encounter Details Date Type Department Care Team (Late st Contact Info) Description 11/28/2012 11:15 AM EST [place] [address] Encounter for removal of urinary [...] device documented in this encounter Care Teams Graphic Arts Technician Relationship Specialty Start Date End Date Farnaz Pineda MD [address] [place] [address] PCP - General 10/26/12 documented as of this encounter
--- OUTSIDE RECORDS SUMMARY | 2024-06-07 19:46 | XMS_ITS | Encounter Summary ---
Author Organization [facility] [address] Care Team Providers Care Video Photographer Name Role Phone Farnaz Pineda MD Primary Care Provider [phone] Encounter Details Date Type Department Care Team (Latest Contact Info) Description 11/20/2012 6:01 AM EST - 11/21/2012 6:28 PM [facility] Hospital Encounter [address] [place] [id number] Presley Madrid MD [facility] [place] [address] History of prosthetic aortic valve Discharge Disposition: [...] longer draining. The number for questions is [phone] before 5 PM weekdays and [phone] after 5 PM and weekends. Activity level: [...] 4-6 weeks for PSA check. Please call [phone] (clinic number for appointments) to confirm date [...] deductible hadnot been met prior to admission. [facility] pharmacy is unable to run the prescription/coverage through insurance without a hard script.TC to [facility] and unable to locate his information and sent to [facility] [phone] and spoke with Farnaz who could not [...] I/Os: Date 11/20/12 07 - 11/21/1259 Shift [phone] 24 Hour Total I N T A [...] to sleep quickly. 1315 Patient states in [place] when asked where his is but does not elaborate when pressed. States he feels wiped out and dozes back to sleep quickly when left alone. 1320 Patient now answering questions appropriately when awakened. Denies pain/nausea. 1345 Report to Christin DELA CRUZ. Info/orders reviewed, questions answered. [facility]. documented in this encounter [...] a risk of micrometastatic disease given his [place] 9 diagnosis. I counseled the patient that [...] testing and communicate with his PCP and/or tender coordinator regarding clearance and a bridging regimen for [...] Madrid MD - 11/20/2012 12:[address] [facility] Operative Note Patient Name: Dillan Al : [id number] MR#: [id number] Case Date: 11/20/2012 Surgeon: Surgeon(s) and Role: [...] the mid left abdomen, and a 10mm commercial lending assistant port placed several cm superior to [...] bleeding was noted. At this time, the commercial lending assistant port was closed with Pritesh Thomasen [...] Operative Note Patient Name: Dillan Al : [id number] MR#: [id number] Case Date: 11/20/2012 Surgeon: Surgeon(s) and Role: [...] a TRUS biopsy on 10/19/12. This revealed [place] 4+5=9 prostate adenocarcinoma as below per outside path report: R apex - [place] 3+3=7, 9% 2/2 cores L latl mid - [place] 4+4=8, 19% 1/1 core L mid - [...] longer draining. The number for questions is [phone] before 5 PM weekdays and [phone] after 5 PM and weekends. Activity level: [...] 4-6 weeks for PSA check. Please call [phone] (clinic number for appointments) to confirm date and time of your appointment if you do not receive your apointment in 2-3 days. General Instructions None Provider Contact Information: [facility]. If you have any questions or concerns, please feel free to contact us. Provider Contact Information: Urology Clinic: [facility] (after business hours): Signed: ALVARO LEDESMA MD [...] 11/20/2012 6:12 AM EST TYPE AND SCREEN ([facility]/CGP/CONSTANTINE) Routine 11/20/2012 6:12 AM EST documented in this encounter Results * SCAN DOC: LAB (12/27/2012 9:13 AM EDT) Narrative 12/27/2012 9:13 AM EDT Procedure Note Provider, Scanning - 12/27/2012 9:13 AM EDT Scanning Provider MEDIA MGR SCAN EXT O RDR/RSLT * Prothrombin Time (11/21/2012 4:11 AM EST) Prothrombin Time 13.8 11.9 - 14.7 sec [facility] Comment: [facility] Transfusion Committee Guidelines: INR less than 2.0, [...] PM EST 11/20/2012 1:07 PM EST Presley Mardid MD HEMATOLOGY ORDERABLE S CERNER MILLENNIUM * [...] intervals supplied above were not validated at [facility]. Results from pediatric patients should be interpreted [...] Lab Presley Madrid MD CHEMISTRY ORDERABLES [facility] * Surgical Pathology Report (11/20/2012 12:02 PM EST) Surgical Pathology Report ? [facility] ? Provider: ?? PRESLEY MADRID ?Pt. Name: ?? DILLAN AL ? Acc #: ?[id number] ?Pt. ? Col Date: ?? 11/20/2012 ? [...] metastasis: ? pMX (cannot be assessed) ? [facility] ? Provider: ?? MERCY, PRESLEY S ?Pt. Name: ?? MIKAELA, DILLAN Terrence ? Acc #: ?[id number] ?Pt. ? Col Date: ?? 11/20/2012 ? [...] vesicles and ?bilateral vas deferentia present. ? [facility] ? Provider: ?? PRESLEY MADRID ?Pt. Name: ?? DILLAN AL ? Acc #: ?[id number] ?Pt. ? Col Date: ?? 11/20/2012 ? [...] in ? (C2-C9). ?? (R9) ??aje/JSB ? [facility] ? Provider: ?? PRESLEY MADRID ?Pt. Name: ?? DILLAN AL ? Acc #: ?[id number] ?Pt. ? Col Date: ?? 11/20/2012 ? /Sex: ?1950,(62 years),Male ? Rec Date: ?? 11/20/2012 ? LOC: ?4WST ? SURGICAL PATHOLOGY ? ---Clinical Information--- ? Specimen Submitted: ? A - Prostate ? B - Left pelvic lymph nodes ? C - Right pelvic lymph nodes ? Clinical History/Diagnosis: ? Prostate cancer [facility] 11/20/2012 12:0 2 PM EST Presley Madrid MD PATHOLOGY/CYTOLOGY O RDARTEMIO Performing Organization Address [facility] Co de Phone Number DANETTE VALENCIA * Specimen to Pathology (surgical or derm) (11/20/2012 10:19 AM EST) AP Specimen 11/20/2012 10:1 9 AM EST 11/20/2012 10:19 AM EST Narrative DANETTE VALENCIA - 11/20/2012 10:19 AM EST Specimen requisition ordered. ??Separate Pathology report to follow Presley Madrid MD PATHOLOGY/CYTOLOGY O JUAN DIEGO Performing Organization Address [facility] Co de Phone Number DANETTE VALENCIA * Specimen to Pathology (surgical or derm) (11/20/2012 10:19 AM EST) AP Specimen 11/20/2012 10:1 9 AM EST 11/20/2012 10:19 AM EST Narrative DANETTE VALENCIA - 11/20/2012 10:19 AM EST Specimen requisition ordered. ??Separate Pathology report to follow Presley Madrid MD PATHOLOGY/CYTOLOGY O JUAN DIEGO Performing Organization Address [facility] Co de Phone Number DANETTE [...] BANK LAB ORDER JAMES Performing Organization Address [facility] Co de Phone Number [facility] * ABO/Rh Typing (11/20/2012 6:12 AM EST) ABORH Type A Pos CERDAKSHA HARTMANENNIUM Blood specimen (specimen) 11/20/2012 6:12 AM EST 11/20/2012 6:25 AM EST Narrative Resulting Agency Comment Spec In Lab Presley Madrid MD BLOOD BANK LAB ORDER JAMES Performing Organization Address [facility] Co de Phone Number [facility] * APTT (11/20/2012 6:12 AM EST) Partial Thromboplastin Time 29 25 - 35 sec [facility] Comment: Recommended therapeutic PTT range for full dose unfractionated heparin is 80-114 seconds. Blood specimen (specimen) 11/20/2012 6:12 AM EST 11/20/2012 6:25 AM EST Narrative Resulting Agency Comment Spec In Lab Presley Madrid MD HEMATOLOGY ORDERABLE S Performing Organization Address [facility] de Phone Number [facility] * Prothrombin Time (11/20/2012 6:12 AM EST) Prothrombin Time 12.4 11.9 - 14.7 sec [facility] Comment: [facility] Transfusion Committee Guidelines: INR less than 2.0, [...] than 145 sec X 2 - call warehouse distribution associate See Bolus dosing guidance for aPTT values [...] Comment: given 1730) 0823 (Given - Provider: Chirstin Awad RN) enoxaparin (LOVENOX) injection 100 mg [...] than 145 sec X 2 - call warehouse distribution associate See Bolus dosing guidance for aPTT values [...] Routine documented in this encounter Care Teams Video Photographer Relationship Specialty Start Date End Date Farnaz Pineda MD [address] [place] [address] PCP - General 10/26/12 documented as of this encounter
--- OUTSIDE RECORDS SUMMARY | 2024-06-07 19:46 | XMS_ITS | Encounter Summary ---
Author Organization [facility] [address] Care Team Providers Care Farm Service Adviser Name Role Phone Cameron Pineda MD Primary Care Provider Reason for Visit * Reason Comments Hematuria Encounter Details Date Type Department Care Team (Late st Contact Info) Description 12/27/2012 3:43 PM EDT - 12/27/2012 5:12 PM EDT Surgery [place] [phone] Presley Madrid MD [facility] [address] CYSTO, IRRIGATION & EVACUATION OF CLOTS (WRVU [...] may be used if needed and are lijh-tko-cslvlzo (OTC) medications available at most local pharmacies. Prunes or prune juice, taken daily, can also be helpful for constipation treatment or p revention and are available at most [employer]. Driving Restrictions*: - No driving if you [...] timely manner. Your surgeon may not be Senior Systems Software Engineer, especially during the night or on weekends, [...] 10:31 AM EDT Office of Care Management(OCM)/Clinical Bell Person(CRC) Discharge Planning CRC Service: Urology CRC :Belen Woods,RN,BS pager [phone] Covering CRC: Kylee StoreyRN,BSN,MA pager [phone] O:Record reviewed and patient discussed with multidisciplinary [...] severe lower abdominal pains. He presented to [facility] and a Womack was inserted, returning bloody urine. His symptoms were relieved. Old clots were noted in the urine. He was transferred to [facility] for further management. PMH: Hypothyroidism Astma PSH: [...] is s/p RALRP with Dr. Madrid for [place] 3+4 Adenocarcinoma with a minor Shasha 5 [...] with severe lower abdominal pains. He presented [facility] and a Womack was inserted, returning bloody urine. His symptoms were relieved. Old clots were noted in the urine. He was transferred to [facility] for further management. He underwent cysto clot [...] that part of your care. Urology - [phone] Scheduled Appointments: The following appointments have been scheduled on your behalf: Future Appointments and Orders Future Appointments: Provider: Department: Dept Phone: Center: 01/04/2013 1:40 PM Presley Madrid MD Urology [phone] [facility] 03/13/2013 10:30 AM Presley Madrid MD Urology [phone] [facility] Joint Appt Questionnaire [facility] Urology [phone] [facility] Future Orders Please Complete By Expires CBC (with Diff) [[id number] Custom] 01/04/13 12/28/13 Process Instructions: INCLUDES: WBC, [...] may be used if needed and are bmuo-czx-hziddzm (OTC) medications available at most local pharmacies. Prunes or prune juice, taken daily, can also be helpful for constipation treatment or p revention and are available at most superDAVI L[employer]ets. Driving Restrictions*: - No driving if you [...] timely manner. Your surgeon may not be Senior Systems Software Engineer, especially during the night or on weekends, so be ready to describe yourself and your surgery when you call. Future Appointments and Orders Future Appointments: Provider: Department: Dept Phone: Center: 01/04/2013 1:40 PM Presley Madrid MD Urology [phone] [facility] 03/13/2013 10:30 AM Presley Madrid MD Urology [phone] [facility] Joint Appt Questionnaire Five B Urology Urology [phone] [facility] Future Orders Please Complete By Expires CBC (with Diff) [[id number] Custom] 01/04/13 12/28/13 Process Instructions: INCLUDES: WBC, [...] was managed by the Urology Team at [facility]. If you have any questions or concerns, please feel free to contact us. Provider Contact Information: Urology Clinic: [facility] (after business hours): CC: CAMERON PINEDA MD [...] Juanjo Galarza - 12/27/2012 6:12 PM EDT [facility] Operative Note Patient Name: Dillan Al : [id number] MR#: [id number] Case Date: 12/27/2012 Surgeon: Surgeon(s) and Role: [...] of the case, we placed a 20 Korean 3-way catheter in the bladder to continuous [...] Operative Note Patient Name: Dillan Al : [id number] MR#: [id number] Case Date: 12/27/2012 Surgeon: Surgeon(s) and Role: [...] Operative Note Patient Name: Dillan Al : [id number] MR#: [id number] Case Date: 12/27/2012 Surgeon: Surgeon(s) and Role: [...] to get a catheter at [facility] prior to coming down today. He has [...] Text Report Department: Vascular Surgery Lab Patient: [id number] (DILLAN AL) CPT Code: 43930 ICD-9: 782.3 Referring Physician: PRESLEY MADRID Indication: [...] MD HEMATOLOGY ORDERABLE S Performing Organization Address City/[facility]/ZIP Co de Phone Number CERNER MILLENNIUM * [...] Peripheral Blood (12/27/2012 3:50 PM EDT) Pathologist [facility] Plat estimate Increased CERNER MILLENNIUM RBC Morphology [...] BANK LAB ORDER JAMES Performing Organization Address [facility] Phone Number DANETTE VALENCIA * (ABNORMAL) APTT (12/27/2012 3:50 PM EDT) Partial Thromboplastin Time 38(H) 25 - 35 sec [facility] MILLENNIUM Comment: Recommended therapeutic PTT range for full dose unfractionated heparin is 80-114 seconds. Blood specimen (specimen) 12/27/2012 3:50 PM EDT 12/27/2012 4:04 PM EDT Narrative Resulting Agency Comment Spec In Lab Gricelda Tolbert MD HEMATOLOGY ORDERABLE S Performing Organization Address [facility] Phone Number DANETTE VALECNIA * (ABNORMAL) Prothrombin Time (12/27/2012 3:50 PM EDT) Prothrombin Time 16.3(H) 12.0 - 15.0 sec [facility] Comment: [facility] Transfusion Committee Guidelines: INR less than 2.0, PTT less than OR equal to 43.5 seconds, or Fibrinogen greater than or equal to 100 mg/dl indicate adequate procoagulant activity for hemostasis in patients without underlying bleeding disorders. International Normalization Ratio 1.3(H) 0.9 - 1.1 [facility] Blood specimen (specimen) 12/27/2012 3:50 PM EDT 12/27/2012 4:04 PM EDT Narrative Resulting Agency Comment Spec In Lab Gricelda Tolbert MD HEMATOLOGY ORDERABLE S Performing Organization Address [facility] de Phone Number DANETTE PRIDEIUM * Glucose, random (12/27/2012 3:50 PM EDT) Glucose 91 60 - 199 mg/dL [facility] The SkimmENNIUM Comment:Diabetes: >=200 mg/d L plus symptoms Blood specimen (specimen) 12/27/2012 3:50 PM EDT 12/27/2012 4:04 PM EDT Narrative Resulting Agency Comment Spec In Lab Gricelda Tolbert MD CHEMISTRY ORDERABLES DANETTE VALENCIA * Creatinine (12/27/2012 3:50 PM EDT) Creatinine 1.22 0.80 - 1.50 mg/dL DANETTE VALENCIA Comment: Please note that the pediatric reference intervals supplied above were not validated at [facility]. Results from pediatric patients should be interpreted in conjunction to the patient's age, height and muscle mass. Est Glomerular Filtration Rate 60 >=60 [facility] Comment: The National Kidney Disease Education [...] Tolbert MD CHEMISTRY ORDERABLES Performing Organization Address [facility] de Phone Number CERNER MILLENNIUM * BUN (12/27/2012 3:50 PM EDT) Blood Urea Nitrogen 20 10 - 20 mg/dL CERNER MILLENNIUM Blood specimen (specimen) 12/27/2012 3:50 PM EDT 12/27/2012 4:04 PM EDT Narrative Resulting Agency Comment Spec In Lab Gricelda Tolbert MD CHEMISTRY ORDERABLES Performing Organization Address [facility] de Phone Number CERNER MILLENNIUM * [...] Tolbert MD CHEMISTRY ORDERABLES Performing Organization Address [facility] Co de Phone Number CERDAKSHA HARTMANENNIUM * [...] home) documented in this encounter Care Teams Farm Service Adviser Relationship Specialty Start Date End Date Cameron Pineda MD [address] [place] [address] PCP - General 10/26/12 documented as of this encounter
--- OUTSIDE RECORDS SUMMARY | 2024-06-07 19:46 | XMS_ITS | Encounter Summary ---
Author Organization Formerly [facility], [facility] [place] [address] Care Team Providers Care Real Estate Rep Name Role Phone Farnaz Pineda MD Primary Care Provider [phone] Encounter Details Date Type Department Care Team (Late st Contact Info) Description 11/20/2012 7:30 AM EST - 11/20/2012 12:35 PM EST [place] [phone] Presley Madrid MD [facility] [place] [address] ROBOTIC LAPAROSCOPIC PROSTATECTOMY (WRVU 22.46) Social History [...] longer draining. The number for questions is [phone] before 5 PM weekdays and [phone] after 5 PM and weekends. Activity level: [...] 4-6 weeks for PSA check. Please call [phone] (clinic number for appointments) to confirm date [...] deductible hadnot been met prior to admission. [facility] pharmacy is unable to run the prescription/coverage through insurance without a hard script.TC to [facility] and unable to locate his information and sent to [employer] [phone] and spoke with Farnaz who could not [...] I/Os: Date 11/20/12 0700 - 11/21/1259 Shift [phone] 24 Hour Total I N T A [...] to sleep quickly. 1315 Patient states in [place] when asked where his is but does not elaborate when pressed. States he feels wiped out and dozes back to sleep quickly when left alone. 1320 Patient now answering questions appropriately when awakened. Denies pain/nausea. 1345 Report to Christin DELA CRUZ. Info/orders reviewed, questions answered. Patient ready for transfer [facility] when transport arrives. documented in this [...] a TRUS biopsy on 10/19/12. 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 At this time, the family service assistant port was closed with Pritesh Thomasen [...] Operative Note Patient Name: Dillan Al : [id number] MR#: [id number] Case Date: 11/20/2012 Surgeon: Surgeon(s) and Role: [...] per outside path report: R apex - Lowpoint 3+3=7, 9% 2/2 cores L latl mid [...] longer draining. The number for questions is [phone] before 5 PM weekdays and [phone] after 5 PM and weekends. Activity level: [...] 4-6 weeks for PSA check. Please call [phone] (clinic number for appointments) to confirm date and time of your appointment if you do not receive your apointment in 2-3 days. General Instructions None Provider Contact Information: [facility]. If you have any questions or concerns, please feel free to contact us. Provider Contact Information: Urology Clinic: [facility] (after business hours): Signed: ALVARO LEDESMA MD [...] 11/20/2012 6:12 AM EST TYPE AND SCREEN ([facility]/CGP/CONSTANTINE) Routine 11/20/2012 6:12 AM EST documented in this encounter Results * SCAN DOC: LAB (12/27/2012 9:13 AM EDT) Narrative 12/27/2012 9:13 AM EDT Procedure Note Provider, Scanning - 12/27/2012 9:13 AM EDT Scanning Provider MEDIA MGR SCAN EXT O RDR/RSLT * Prothrombin Time (11/21/2012 4:11 AM EST) Prothrombin Time 13.8 11.9 - 14.7 sec [facility] Comment: [facility] Transfusion Committee Guidelines: INR less than 2.0, [...] supplied above were not validated at [facility]. Results from pediatric patients should be interpreted [...] Madrid MD CHEMISTRY ORDERABLES Performing Organization Address City/State/[facility] Co de Phone Number [facility] * Surgical Pathology Report (11/20/2012 12:02 PM EST) Surgical Pathology Report ? [facility] ? Provider: ?? PRESLEY MADRID ?Pt. Name: ?? MIKAELA, DILLAN W ? Acc #: ?[id number] ?Pt. ? Col Date: ?? 11/20/2012 ? /Sex: ?1950,(62 years),Male ? Rec Date: ?? 11/20/2012 ? LOC: ?4WST ? SURGICAL PATHOLOGY ? ---Pathologic Diagnosis--- ? A - Prostate gland, resection: ? Specimen type: ?Radical prostatectomy ? 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 Lowpoint grades: ? 3+4 with a minor component ? of grade 5 carcinoma (see Comment) ? Lowpoint score: ?7 ? Location of tumor: ?Bilateral, [...] metastasis: ? pMX (cannot be assessed) ? [facility] ? Provider: ?? MERCY, PRESLEY S ?Pt. Name: ?? DILLAN AL ? Acc #: ?[id number] ?Pt. ? Col Date: ?? 11/20/2012 ? /Sex: ?1950,(62 years),Male ? Rec Date: ?? 11/20/2012 ? LOC: ?4WST ? SURGICAL PATHOLOGY ? CR-0 ? 11/23/12 ? JLG ? 11/23/12 Verified by: ? Vinod NICHOLSON, Jsoe Ruvalcaba ? Pathologist ? (Electronic Signature) ? [...] vesicles and ?bilateral vas deferentia present. ? [facility] ? Provider: ?? PRESLEY MADRID ?Pt. Name: ?? DILLAN AL ? Acc #: ?[id number] ?Pt. ? Col Date: ?? 11/20/2012 ? [...] in ? (C2-C9). ?? (R9) ??aje/JSB ? [facility] ? Provider: ?? PRESLEY MADRID ?Pt. Name: ?? DILLAN AL ? Acc #: ?[id number] ?Pt. ? Col Date: ?? 11/20/2012 ? /Sex: ?1950,(62 years),Male ? Rec Date: ?? 11/20/2012 ? LOC: ?4WST ? SURGICAL PATHOLOGY ? ---Clinical Information--- ? Specimen Submitted: ? A - Prostate ? B - Left pelvic lymph nodes ? C - Right pelvic lymph nodes ? Clinical History/Diagnosis: ? Prostate cancer [facility] 11/20/2012 12:0 2 PM EST Presley Madrid MD PATHOLOGY/CYTOLOGY O JUAN DIEGO Performing Organization Address [facility] Co de Phone Number DANETTE VALENCIA * Specimen to Pathology (surgical or derm) (11/20/2012 10:19 AM EST) AP Specimen 11/20/2012 10:1 9 AM EST 11/20/2012 10:19 AM EST Narrative DANETTE VALENCIA - 11/20/2012 10:19 AM EST Specimen requisition ordered. ??Separate Pathology report to follow Presley Madrid MD PATHOLOGY/CYTOLOGY O JUAN DIEGO Performing Organization Address [facility] Co de Phone Number DANETTE VALENCIA * Specimen to Pathology (surgical or derm) (11/20/2012 10:19 AM EST) AP Specimen 11/20/2012 10:1 9 AM EST 11/20/2012 10:19 AM EST Narrative DANETTE VALENCIA - 11/20/2012 10:19 AM EST Specimen requisition ordered. ??Separate Pathology report to follow Presley Madrid MD PATHOLOGY/CYTOLOGY O JUAN DIEGO Performing Organization Address [facility] Co de Phone Number DANETTE VALENCIA * Specimen to Pathology (surgical or derm) (11/20/2012 10:19 AM EST) AP Specimen 11/20/2012 10:1 9 AM EST 11/20/2012 10:19 AM EST Narrative DANETTE VALENCIA - 11/20/2012 10:19 AM EST Specimen requisition ordered. ??Separate Pathology report to follow Presley Madrid MD PATHOLOGY/CYTOLOGY O JUAN DIEGO Performing Organization Address [facility] Co de Phone Number DANETTE VALENCIA * Antibody screen (11/20/2012 6:12 AM EST) Ab Screen Interp Negative DANETTE VALENCIA Expires at [id number] on: [id number] DAN[facility]TE VALENCIA Blood specimen (specimen) 11/20/2012 6:12 AM EST 11/20/2012 6:25 AM EST Narrative Resulting Agency Comment Spec In Lab Presley Madrid MD BLOOD BANK LAB ORDER JAMES Performing Organization Address City/[facility] Co de Phone Number DANETTE VALENCIA * ABO/Rh Typing (11/20/2012 6:12 AM EST) ABORH Type A Pos DANETTE PRIDEIUM Blood specimen (specimen) 11/20/2012 6:12 AM EST 11/20/2012 6:25 AM EST Narrative Resulting Agency Comment Spec In Lab Presley Madrid MD BLOOD BANK LAB ORDER JAMES Performing Organization Address [facility] Co de Phone Number [facility] * APTT (11/20/2012 6:12 AM EST) Partial Thromboplastin Time 29 25 - [address] [facility] Comment: Recommended therapeutic PTT range for full dose unfractionated heparin is 80-114 seconds. Blood specimen (specimen) 11/20/2012 6:12 AM EST 11/20/2012 6:25 AM EST Narrative Resulting Agency Comment Spec In Lab Presley Madrid MD HEMATOLOGY ORDERABLE S Performing Organization Address [facility] Co de Phone Number DANETTE VALENCIA * Prothrombin Time (11/20/2012 6:12 AM EST) Prothrombin Time 12.4 11.9 - 14.[address] [facility] Comment: [facility] Transfusion Committee Guidelines: INR less than 2.0, [...] 145 sec X 2 - call warehouse picker See Bolus dosing guidance for aPTT values [...] Routine documented in this encounter Care Teams Real Estate Rep Relationship Specialty Start Date End Date Farnaz Pineda MD [address] [place] [address] PCP - General 10/26/12 documented as of this encounter
--- OUTSIDE RECORDS SUMMARY | 2024-06-07 19:46 | XMS_ITS | Encounter Summary ---
Author Organization [facility] Address [address] [facility] [place] [address] Care Team Providers Care Aviation Program Manager Name Role Phone Farnaz Pineda MD Primary Care Provider [phone] Encounter Details Date Type Department Care Team (Latest Contact Info) Description 11/02/2012 1:51 PM EST - 11/02/2012 11:59 PM EST Hospital Encounter XRay at [facility] [address] [place] [id number] Prostate cancer Social History Tobacco Use Types [...] prostate documented in this encounter Care Teams Aviation Program Manager Relationship Specialty Start Date End Date Farnaz Pineda MD [address] [place] [address] PCP - General 10/26/12 documented as of this encounter
--- OUTSIDE RECORDS SUMMARY | 2024-06-07 19:46 | XMS_ITS | Encounter Summary ---
Author Organization Formerly [facility], [facility] [place] [address] Care Team Providers Care Residential Tech Name Role Phone Farnaz Pineda MD Primary Care Provider [phone] Encounter Details Date Type Department Care Team (Late st Contact Info) Description 11/20/2012 7:23 AM EST Anesthesia Event [place] [phone] Susan Strange MD [facility] [place] [address] Jessica Baron PA [facility] [place] [address] Anesthesia Record Procedure Summary Procedure Name Responsible [...] on filedocumented in this encounter Care Teams Residential Tech Relationship Specialty Start Date End Date Farnaz Pineda MD [address] [place] [address] PCP - General 10/26/12 documented as of this encounter
--- OUTSIDE RECORDS SUMMARY | 2024-06-07 19:46 | XMS_ITS | Encounter Summary ---
Author Organization [facility] Address [address] [facility] [place] [address] Care Team Providers Care Production Staff Worker Name Role Phone Farnaz Pineda MD Primary Care Provider [phone] Encounter Details Date Type Department Care Team (Latest Contact Info) Description 11/28/2012 2:00 PM EST - 11/28/2012 11:59 PM [facility] Hospital Encounter XRay at [facility] [address] [place] [phone] H/O prostatectomy Social History Tobacco Use Types [...] were obtained in the for orientations. Findings Bid Manager Pelvis: ?? No dilated loops of air-filled [...] were obtained in the for orientations. Findings Bid Manager Pelvis: No dilated loops of air-filled small [...] reviewed by the attending Ross Madrid MD [facility] ORDERABLE S documented in this encounter [...] mLs documented in this encounter Care Teams Production Staff Worker Relationship Specialty Start Date End Date Farnaz Pineda MD [address] [place] [address] PCP - General 10/26/12 documented as of this encounter
--- OUTSIDE RECORDS SUMMARY | 2024-06-07 19:46 | XMS_ITS | Encounter Summary ---
Author Organization [facility] Address [facility] [place] [address] Care Team Providers Care Medical Affairs Specialist Name Role Phone Farnaz Pineda MD Primary Care Provider [phone] Encounter Details Date Type Department Care Team (Late st Contact Info) Description 11/16/2012 Orders [place] [address] Jessica Baron PA [facility] [place] [address] History of prosthetic aortic valve Anesthesia Record [...] means documented in this encounter Care Teams Medical Affairs Specialist Relationship Specialty Start Date End Date Farnaz Pineda MD [address] [place] [address] PCP - General 10/26/12 documented as of this encounter
--- OUTSIDE RECORDS SUMMARY | 2024-06-07 19:46 | XMS_ITS | Encounter Summary ---
Author Organization [facility] [place] [address] Care Team Providers Care Recruiting Internship Name Role Phone Farnaz Pineda MD Primary Care Provider [phone] Encounter Details Date Type Department Care Team (Late st Contact Info) Description 12/08/2012 11:00 AM [place] [phone] Ross Madrid MD [facility] [place] [address] Prostate cancer (Primary Dx) Discharge Disposition: Home [...] has no Remington's sign. His path was [id number] [place] 3+4=7 with tertiary 5, negative margins. Reviewing [...] HEMATOLOGY ORDERABLE S Performing Organization Address City/[facility] Co de Phone Number DANETTE VALENCIA * (ABNORMAL) Prothrombin Time (12/08/2012 4:22 PM EST) Prothrombin Time 25.8(H) 12.0 - 15.0 sec CERNER MILLENNIUM Comment: [facility] Transfusion Committee Guidelines: INR less [...] MD HEMATOLOGY ORDERABLE S Performing Organization Address [facility] Co de Phone Number DANETTE [...] mLs documented in this encounter Care Teams Recruiting Internship Relationship Specialty Start Date End Date Farnaz Pineda MD [address] [place] [address] PCP - General 10/26/12 documented as of this encounter
--- OUTSIDE RECORDS SUMMARY | 2024-06-07 19:46 | XMS_ITS | Encounter Summary ---
Author Organization [facility] [place] [address] Care Team Providers Care Customer Support Executive Name Role Phone Farnaz Pineda MD Primary Care Provider [phone] Encounter Details Date Type Department Care Team (Late st Contact Info) Description 11/02/2012 1:40 PM EST Clinical [place] [address] Social History Tobacco Use Types [...] on filedocumented in this encounter Care Teams Customer Support Executive Relationship Specialty Start Date End Date Farnaz Pineda MD [address] [place] [address] PCP - General 10/26/12 documented as of this encounter
--- OUTSIDE RECORDS SUMMARY | 2024-06-07 19:46 | XMS_ITS | Encounter Summary ---
Author Organization [facility] [place] [address] Care Team Providers Care Tractor Operator Laser Leveling Name Role Phone [place] Patel MD Primary Care Provider [phone] Reason for Visit * Reason Comments Urinary Retention Hematuria Encounter Details Date Type Department Care Team (Latest Contact Info) Description 12/23/2012 1:24 PM EDT - 12/26/2012 3:48 PM EDT Hospital Encounter [address] [place] [address] Josemanuel Wynne MD [facility] [place] [address] Mesha Masters MD [facility] [place] [address] Urinary retention (Primary Dx); Hematuria Discharge Disposition: [...] may be used if needed and are ftky-flo-hkhumbd (OTC) medications available at most local pharmacies. Prunes or prune juice, taken daily, can also be helpful for constipation treatment or p revention and are available at most [employer]. Driving Restrictions*: - No driving if you [...] timely manner. Your surgeon may not be Brush Loader And Handle Attacher, especially during the night or on weekends, [...] if needed at discharge. [facility] manageshis INR draws and coumadin dosing. Pleased with the care that he has received and the plan outlinedby today Home Health agrees with this plan. Denies need for VNA services and plans to return to work part-time . RN updated. Will continue to follow and assess and facilitate d/c as appropriate. AGNELICA VALLE RN12/25/2012 * Mesha Masters MD - [...] placed on CBI -CT surgery contacted at [facility] regarding holding coumadin for now -OK [...] that part of your care. Urology - [phone] Scheduled Appointments: The following appointments have been scheduled on your behalf: Future Appointments and Orders Future Appointments: Provider: Department: Dept Phone: Center: 03/13/2013 10:30 AM Ross Madrid MD Urology [phone] [facility] Joint Appt Questionnaire Five B Urology Urology [phone] [facility] Outpatient Services/Studies: No discharge procedures on file. [...] may be used if needed and are avoa-qwg-fgydusb (OTC) medications available at most local pharmacies. Prunes or prune juice, taken daily, can also be helpful for constipation treatment or p revention and are available at most [employer]. Driving Restrictions*: - No driving if you [...] timely manner. Your surgeon may not be Brush Loader And Handle Attacher, especially during the night or on weekends, so be ready to describe yourself and your surgery when you call. CC: Primary Care Physician: Future Appointments and Orders Future Appointments: Provider: Department: Dept Phone: Center: 03/13/2013 10:30 AM Ross Mardid MD Urology [phone] [facility] Joint Appt Questionnaire Five B Urology Urology [phone] [facility] Call your doctor if: Please call your [...] was managed by the Urology Team at [facility]. If you have any questions or concerns, please feel free to contact us. Provider Contact Information: Urology Clinic: [facility] (after business hours): CC: CAMERON PATEL MD [...] with Dr. Madrid his primary urologist. MESHA AMSTERS MD * Plan of Care - Beltran [...] valve x 10 years - done at [facility], on coumadin recent INR 2.8 PSH: As [...] AM EDT Pt comes to us from [facility] ED where he went this morning @ 0330 c/o of an indwelling catheter blockedwith clots. As they were unable to flush the catheter they replaced it with another. Since then there has been minimal bloody return. Prostitectomy 11/20 @ [facility] for Ca. Bleeding increased last . He was eval in the ED @ [facility] at that time and Rx with Cipro. [...] * (ABNORMAL) APTT (12/25/2012 10:02 AM EDT) [facility] Signature Partial Thromboplastin Time 42(H) 25 - 35 sec [facility] Comment: Recommended therapeutic PTT range for full dose unfractionated heparin is 80-114 seconds. Blood specimen (specimen) 12/25/2012 10:02 AM EDT 12/25/2012 10:09 AM EDT Narrative Resulting Agency Comment Spec In Lab Mesha Masters MD HEMATOLOGY ORDERABLE S [facility] * (ABNORMAL) Prothrombin Time (12/25/2012 10:02 AM EDT) Prothrombin Time 19.5(H) 12.0 - 15.0 sec CERNER MILLENNIUM Comment: [facility] Transfusion Committee [...] MD HEMATOLOGY ORDERABLE S Performing Organization Address City/State/[place] Co de Phone Number CERNER MILLENNIUM * [...] Josemanuel Wynne MD HEMATOLOGY ORDERABLE S CERNER [employer] * (ABNORMAL) Basic Metabolic Panel (non-fasting) (12/24/2012 [...] Lab Josemanuel Wynne MD CHEMISTRY ORDERABLES [facility] * (ABNORMAL) CBC (with Diff) (12/24/2012 2:33 [...] MD BLOOD BANK LAB ORDER JAMES DANETTE PRIEDIUM * ABO/Rh Typing (12/23/2012 11:50 AM EDT) ABORH Type A Pos CERDAKSHA PRIDEIUM Blood specimen (specimen) 12/23/2012 11:50 AM EDT 12/23/2012 12:09 PM EDT Narrative Resulting Agency Comment Spec In Lab Mesha Masters MD BLOOD BANK LAB ORDER JAMES CERNER MILLENNIUM * (ABNORMAL) Differential, Automated (12/23/2012 10:00 AM EDT) Pathologist [facility] Neutrophil % 77.4(H) 34.0 - 71.0 % [...] (12/23/2012 10:00 AM EDT) Plat estimate Normal [facility] RBC Morphology Abnormal CERNE R MILLENNIUM Polychromasia Present >5/HPF CERNER MILLENNIUM Blood specimen (specimen) 12/23/2012 10:00 AM EDT 12/23/2012 10:08 AM EDT Narrative Resulting Agency Comment Spec In Lab Josemanuel Wynne MD HEMATOLOGY ORDERABLE S Performing Organization Address [facility]/ZIP Co de Phone Number [facility] * (ABNORMAL) APTT (12/23/2012 10:00 AM EDT) Partial Thromboplastin Time 54(H) 25 - 35 sec [facility] Comment: Recommended therapeutic PTT range for full dose unfractionated heparin is 80-114 seconds. Blood specimen (specimen) 12/23/2012 10:00 AM EDT 12/23/2012 10:08 AM EDT Narrative Resulting Agency Comment Spec In Lab Josemanuel Wynne MD HEMATOLOGY ORDERABLE S Performing Organization Address [facility] de Phone Number [facility]AN[facility] * (ABNORMAL) Prothrombin Time (12/23/2012 10:00 AM EDT) Prothrombin Time 25.1(H) 12.0 - 15.0 sec [facility] Comment: [facility] Transfusion Committee Guidelines: INR less than 2.0, PTT less than OR equal to 43.5 seconds, or Fibrinogen greater than or equal to 100 mg/dl indicate adequate procoagulant activity for hemostasis in patients without underlying bleeding disorders. International Normalization Ratio 2.2(H) 0.9 - 1.1 [facility] Blood specimen (specimen) 12/23/2012 10:00 AM EDT 12/23/2012 10:08 AM EDT Narrative Resulting Agency Comment Spec In Lab Josemanuel Wynne MD HEMATOLOGY ORDERABLE S Performing Organization Address [facility]/ZIP Co de Phone Number [facility] * Glucose, random (12/23/2012 10:00 AM EDT) Glucose 129 60 - 199 mg/dL [facility] Comment:Diabetes: >=200 mg/d L plus symptoms Blood specimen (specimen) 12/23/2012 10:00 AM EDT 12/23/2012 10:08 AM EDT Narrative Resulting Agency Comment Spec In Lab Josemanuel Wynne MD CHEMISTRY ORDERABLES [facility] * (ABNORMAL) Creatinine (12/23/2012 10:00 AM EDT) Creatinine 1.50 0.80 - 1.50 mg/dL [facility] Comment: Please note that the pediatric reference intervals supplied above were not validated at [facility]. Results from pediatric patients should be interpreted in conjunction to the patient's age, height and muscle mass. Est Glomerular Filtration Rate 47(L) >=60 [facility] Comment: The National Kidney Disease Education Program [...] Wynne MD CHEMISTRY ORDERABLES Performing Organization Address [facility] de Phone Number CERNER MILLENNIUM * (ABNORMAL) BUN (12/23/2012 10:00 AM EDT) Blood Urea Nitrogen 25(H) 10 - 20 mg/dL CERNER MILLENNIUM Blood specimen (specimen) 12/23/2012 10:00 AM EDT 12/23/2012 10:08 AM EDT Narrative Resulting Agency Comment Spec In Lab Josemanuel Wynne MD CHEMISTRY ORDERABLES Performing Organization Address [facility] de Phone Number CERNER MILLENNIUM * (ABNORMAL) [...] Wynne MD CHEMISTRY ORDERABLES Performing Organization Address [facility]/[place] Co de Phone Number DANETTE HARTMANENNNONA * [...] MD HEMATOLOGY ORDERABLE S Performing Organization Address [facility]/[place] Co de Phone Number DANETTE VALENCIA documented [...] Discontinued, Routine 0600 (Given - Provider: Yennifer Ogluin RN) 0520 (Given - Provider: Beltran Moses, [...] RN) documented in this encounter Care Teams Tractor Operator Laser Leveling Relationship Specialty Start Date End Date Cameron Patel MD [address] [place] [address] PCP - General 10/26/12 documented as of this encounter
--- OUTSIDE RECORDS SUMMARY | 2024-06-07 19:46 | XMS_ITS | Encounter Summary ---
Author Organization [facility] [place] [address] Care Team Providers Care Manager Report Name Role Phone Farnaz Pineda MD Primary Care Provider [phone] Reason for Visit * Reason Comments Radiation Consult Encounter Details Date Type Department Care Team (Late st Contact Info) Description 11/02/2012 10:30 AM EST Office Visit Hematology [place] [address] Abraham Chase MD [facility] [place] [address] Prostate cancer (Primary Dx) Social History Tobacco [...] consultation at the Prostate Interdisciplinary Clinic at [facility] at the request of Dr. Madrid [...] prostate biopsy performed 10/05/12 reviewed here at [facility]: ---Pathologic Diagnosis--- CONSULTATION CASE Outside slides labeled [id number], collection date 10/05/12: 1 - Prostate, right lateral apex, needle core biopsy: Adenocarcinoma, [place] grade 3 + 3, involving approximately 10% [...] mid lateral, needle core biopsy: 1. Adenocarcinoma, [place] grade 4 + 4, involving approximately 20% of the single biopsy core. 2. Focal high grade prostatic intraepithelial neoplasia (PIN). 10 - Prostate, left mid medial, needle core biopsy: Adenocarcinoma, [place] grade 4 + 5, involving approximately 10% [...] male with high risk prostate cancer, T1c, [place] 4+5=9, PSA 7.1. We discussed treatment options [...] documented in this encounter Care Teams Manager Report Relationship Specialty Start Date End Date Farnaz Pineda MD [address] [place] [address] PCP - General 10/26/12 documented as of this encounter
--- OUTSIDE RECORDS SUMMARY | 2024-06-07 19:46 | XMS_ITS | Encounter Summary ---
Author Organization [facility] [place] [address] Care Team Providers Care Associate Manager Affiliate Marketing Name Role Phone Farnaz Pineda MD Primary Care Provider Encounter Details Date Type Department Care Team (Latest Contact Info) Description 11/28/2012 11:20 AM EST [place] [phone] Ross Velazquez MD [facility] 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 ?? Findings Helper Teacher: Bowel gas pattern is unremarkable. ??Stool and [...] images were obtained in various orientations. Findings Helper Teacher: Bowel gas pattern is unremarkable. Stool and [...] were obtained in the for orientations. Findings Helper Teacher Pelvis: ?? No dilated loops of air-filled [...] were obtained in the for orientations. Findings Helper Teacher Pelvis: No dilated loops of air-filled small [...] Time 28.0(H) 11.9 - 14.7 sec DANETTE [facility] Comment: [facility] Transfusion Committee Guidelines: INR less than 2.0, PTT less than OR equal to 43.5 seconds, or Fibrinogen greater than or equal to 100 mg/dl indicate adequate procoagulant activity for hemostasis in patients without underlying bleeding disorders. International Normalization Ratio 2.6(H) 0.9 - 1.1 DANETTE [employer] Blood specimen (specimen) 11/28/2012 12:21 PM EST 11/28/2012 12:34 PM EST Narrative Resulting Agency Comment Spec In Lab Ross Velazquez MD HEMATOLOGY ORDERABLE S [facility] documented in this encounter Visit Diagnoses Diagnosis H/O prostatectomy- Primary Other postprocedural status H/O prostatectomy Other postprocedural status documented in this encounter Care Teams Associate Manager Affiliate Marketing Relationship Specialty Start Date End Date Farnaz Pineda MD [address] [place] [address] PCP - General 10/26/12 documented as of this encounter
--- OUTSIDE RECORDS SUMMARY | 2024-06-07 19:46 | XMS_ITS | Encounter Summary ---
Author Organization [facility] [place] [address] Care Team Providers Care Vocational Rehabilitation Counselor Name Role Phone Farnaz Pineda MD Primary Care Provider [phone] Encounter Details Date Type Department Care Team (Latest Contact Info) Description 12/08/2012 12:38 PM EST - 12/08/2012 11:59 PM EST Hospital [place] [address] Prostate cancer Social History Tobacco [...] Diagnosis Comments CT PELVIS SOFT TISSUE (GI INCINERATOR OPERATOR) WWO CONTRAST STAT 12/08/2012 3:02 PM EST [...] (series 2, images 35, 36; series 8, [id number], 37). Scattered foci of air are seen [...] mg documented in this encounter Care Teams Vocational Rehabilitation Counselor Relationship Specialty Start Date End Date Farnaz Pineda MD [address] [place] [address] PCP - General 10/26/12 documented as of this encounter
--- OUTSIDE RECORDS SUMMARY | 2024-06-07 19:46 | XMS_ITS | Encounter Summary ---
Author Organization [facility] [place] [address] Care Team Providers Care Physician Practice Coordinator Name Role Phone Farnaz Pineda MD Primary Care Provider Encounter Details Date Type Department Care Team (Late st Contact Info) Description 12/08/2012 2:30 PM EST Clinical Support [facility] [place] [address] Social History Tobacco Use Types [...] on filedocumented in this encounter Care Teams Physician Practice Coordinator Relationship Specialty Start Date End Date Farnaz Pineda MD [address] [place] [address] PCP - General 10/26/12 documented as of this encounter
--- OUTSIDE RECORDS SUMMARY | 2024-06-07 19:46 | XMS_ITS | Encounter Summary ---
Author Organization [facility] [place] [address] Care Team Providers Care Php Wordpress Developer Name Role Phone [place] Pineda MD Primary Care Provider [phone] Reason for Visit * Reason Comments Hematuria Encounter Details Date Type Department Care Team (Late st Contact Info) Description 12/27/2012 4:09 PM EDT - 12/28/2012 4:49 PM EDT Emergency [place] [phone] Presley Madrid MD [facility] [place] [address] S/P prostatectomy (Primary Dx) Discharge Disposition: Home [...] may be used if needed and are tiad-blr-zpsmuig (OTC) medications available at most local pharmacies. Prunes or prune juice, taken daily, can also be helpful for constipation treatment or p revention and are available at most [employer]. Driving Restrictions*: - No driving if [...] timely manner. Your surgeon may not be Photoengraving Proofer Apprentice, especially during the night or on weekends, [...] 10:31 AM EDT Office of Care Management(OCM)/Clinical Helper/Driver(CRC) Discharge Planning CRC Service: Urology CRC :Belen Woods,RN,BS pager [phone] Covering CRC: Kylee Storey RN,BSN,MA pager [phone] O:Record reviewed and patient discussed with multidisciplinary [...] severe lower abdominal pains. He presented to [facility] and a Womack was inserted, returning bloody urine. His symptoms were relieved. Old clots were noted in the urine. He was transferred to [facility] for further management. PMH: Hypothyroidism Astma PSH: [...] is s/p RALRP with Dr. Madrid for [place] 3+4 Adenocarcinoma with a minor Shasha 5 [...] with severe lower abdominal pains. He presented [facility] and a Womack was inserted, returning bloody urine. His symptoms were relieved. Old clots were noted in the urine. He was transferred to [facility] for further management. He underwent cysto clot [...] that part of your care. Urology - [phone] Scheduled Appointments: The following appointments have been scheduled on your behalf: Future Appointments and Orders Future Appointments: Provider: Department: Dept Phone: Center: 01/04/2013 1:40 PM Presley Madrid MD Urology [phone] [facility] 03/13/2013 10:30 AM Preslye Madrid MD Urology [phone] [facility] Joint Appt Questionnaire Five B Urology Urology [phone] [facility] Future Orders Please Complete By Expires CBC (with Diff) [[id number] Custom] 01/04/13 12/28/13 Process Instructions: INCLUDES: WBC, [...] may be used if needed and are jpmt-grr-lvobkli (OTC) medications available at most local pharmacies. Prunes or prune juice, taken daily, can also be helpful for constipation treatment or p revention and are available at most [employer]. Driving Restrictions*: - No driving if you [...] timely manner. Your surgeon may not be Photoengraving Proofer Apprentice, especially during the night or on weekends, so be ready to describe yourself and your surgery when you call. Future Appointments and Orders Future Appointments: Provider: Department: Dept Phone: Center: 01/04/2013 1:40 PM Presley Madrid MD Urology [phone] [facility] 03/13/2013 10:30 AM Presley Madrid MD Urology [phone] [facility] Joint Appt Questionnaire Five B Urology Urology [phone] [facility] Future Orders Please Complete By Expires CBC (with Diff) [[id number] Custom] 01/04/13 12/28/13 Process Instructions: INCLUDES: WBC, [...] was managed by the Urology Team at [facility]. If you have any questions or concerns, please feel free to contact us. Provider Contact Information: Urology Clinic: [facility] (after business hours): CC: CAMERON PINEDA MD [...] Juanjo Galarza - 12/27/2012 6:12 PM EDT [facility] Operative Note Patient Name: Dillan Al : [id number] MR#: [id number] Case Date: 12/27/2012 Surgeon: Surgeon(s) and Role: [...] of the case, we placed a 20 Lithuanian 3-way catheter in the bladder to continuous [...] Operative Note Patient Name: Dillan Al : [id number] MR#: [id number] Case Date: 12/27/2012 Surgeon: Surgeon(s) and Role: [...] Operative Note Patient Name: Dillan Al : [id number] MR#: [id number] Case Date: 12/27/2012 Surgeon: Surgeon(s) and Role: [...] for him to get a catheter at [facility] prior to coming down today. [...] Text Report Department: Vascular Surgery Lab Patient: [id number] (DILLAN AL) CPT Code: 07292 ICD-9: 782.3 Referring Physician: PRES[place] MADR[place] Indication: [...] [facility]/ZIP Co de Phone Number CERNER MILLENNIUM * Scan, Peripheral Blood (12/28/2012 4:30 AM EDT) Pathologist [facility] Plat estimate Increased CERNER MILLENNIUM RBC Morphology [...] Peripheral Blood (12/27/2012 3:50 PM EDT) Pathologist [facility] Plat estimate Increased CERNER MILLENNIUM RBC Morphology [...] PM EDT) Ab Screen Interp Negative DANETTE PIRDEIUM Expires at 2359 on: [id number] DANETTE HARTMANENNIUM [...] BANK LAB ORDER JAMES Performing Organization Address [facility] Co de Phone Number DANETTE VALENCIA * (ABNORMAL) APTT (12/27/2012 3:50 PM EDT) Partial Thromboplastin Time 38(H) 25 - 35 sec [facility] Comment: Recommended therapeutic PTT range for full dose unfractionated heparin is 80-114 seconds. Blood specimen (specimen) 12/27/2012 3:50 PM EDT 12/27/2012 4:04 PM EDT Narrative Resulting Agency Comment Spec In Lab Gricelda Tolbert MD HEMATOLOGY ORDERABLE S Performing Organization Address [facility] de Phone Number DANETTE VALENCIA * (ABNORMAL) Prothrombin Time (12/27/2012 3:50 PM EDT) Prothrombin Time 16.3(H) 12.0 - 15.0 sec [facility] Comment: [facility] Transfusion Committee Guidelines: INR less than 2.0, PTT less than OR equal to 43.5 seconds, or Fibrinogen greater than or equal to 100 mg/dl indicate adequate procoagulant activity for hemostasis in patients without underlying bleeding disorders. International Normalization Ratio 1.3(H) 0.9 - 1.1 [facility] Blood specimen (specimen) 12/27/2012 3:50 PM EDT 12/27/2012 4:04 PM EDT Narrative Resulting Agency Comment Spec In Lab Gricelda Tolbert MD HEMATOLOGY ORDERABLE S Performing Organization Address [facility] Co de Phone Number DANETTE VALENCIA * Glucose, random (12/27/2012 3:50 PM EDT) Glucose 91 60 - 199 mg/dL [facility] Comment:Diabetes: >=200 mg/d L plus symptoms Blood specimen (specimen) 12/27/2012 3:50 PM EDT 12/27/2012 4:04 PM EDT Narrative Resulting Agency Comment Spec In Lab Gricelda Tolbert MD CHEMISTRY ORDERABLES DANETTE VALENCIA * Creatinine (12/27/2012 3:50 PM EDT) Creatinine 1.22 0.80 - 1.50 mg/dL DANETTE VALENCIA Comment: Please note that the pediatric reference intervals supplied above were not validated at [facility]. Results from pediatric patients should be interpreted [...] Tolbert MD CHEMISTRY ORDERABLES Performing Organization Address [facility] de Phone Number CERDAKSHA MILLENNIUM * BUN (12/27/2012 3:50 PM EDT) Blood Urea Nitrogen 20 10 - 20 mg/dL CERNER MILLENNIUM Blood specimen (specimen) 12/27/2012 3:50 PM EDT 12/27/2012 4:04 PM EDT Narrative Resulting Agency Comment Spec In Lab Gricelda Tolbert MD CHEMISTRY ORDERABLES Performing Organization Address [facility] de Phone Number CERNER MILLENNIUM * Electrolytes [...] Tolbert MD CHEMISTRY ORDERABLES Performing Organization Address [facility] Co de Phone Number [...] home) documented in this encounter Care Teams Php Wordpress Developer Relationship Specialty Start Date End Date [place] Pineda MD [address] [place] [address] PCP - General 10/26/12 documented as of this encounter
--- OUTSIDE RECORDS SUMMARY | 2024-06-07 19:46 | XMS_ITS | Encounter Summary ---
Author Organization [facility] [place] [address] Care Team Providers Care Energy Efficiency Finance Manager Name Role Phone Farnaz Pineda MD Primary Care Provider [phone] Encounter Details Date Type Department Care Team (Late st Contact Info) Description 12/27/2012 5:16 PM EDT Anesthesia Event [place] [phone] Rosa Escalante MD [facility] [place] [address] Jenny Kaur MD [facility] [place] [address] Anesthesia Record Procedure Summary Procedure Name Responsible [...] ASSISTED performed by Ross Madrid MD at [facility] OR ??? Lap, pelvic lymphadenectomy 11/20/2012 LAPAROSCOPY,WITH BILATERAL TOTAL PELVIC LYMPHADENECTOMY, ROBOTIC performed by Ross Madrid MD at [facility] History Substance Use Topics ??? [...] discussed with patient. [facility] Assessment: documented in this encounter Miscellaneous Notes * Addendum Note - Fela Real - 12/28/2012 11:38 AM EDT Addendum created 12/28/12 1138 by Fela Real Modules edited:Anesthesia Events, Anesthesia Responsible Staff, SmartForms SmartFormsVN Section for SmartForms 266 documented in this encounter Plan of Treatment Not on file documented as of this encounter Visit Diagnoses Not on filedocumented in this encounter Care Teams Energy Efficiency Finance Manager Relationship Specialty Start Date End Date Farnaz Pineda MD [address] [place] [address] PCP - General 10/26/12 documented as of this encounter
--- OUTSIDE RECORDS SUMMARY | 2024-06-07 19:46 | XMS_ITS | Encounter Summary ---
Author Organization [place] [address] Care Team Providers Care Director Sales And Trade Marketing Name Role Phone Farnaz Pineda MD Primary Care Provider [phone] Encounter Details Date Type Department Care Team (Late st Contact Info) Description 12/06/2012 [place] [phone] Fred Malagon MD [facility] [place] [address] Social History Tobacco Use Types Packs/Day Years [...] Rodgers is about 2 weeks s/pprostatectomy for Morton 4+5=9 prostate adenocarcinoma. He is on coumadin [...] on filedocumented in this encounter Care Teams Director Sales And Trade Marketing Relationship Specialty Start Date End Date Farnaz Pineda MD [address] [place] [address] PCP - General 10/26/12 documented as of this encounter
--- OUTSIDE RECORDS SUMMARY | 2024-06-07 19:46 | XMS_ITS | Encounter Summary ---
Author Organization [facility] [place] [address] Care Team Providers Care Tribal Delegate Name Role Phone Farnaz Pineda MD Primary Care Provider [phone] Encounter Details Date Type Department Care Team (Late st Contact Info) Description 12/20/2012 [place] [phone] Elaina Dominguez MD [facility] [place] [address] Social History Tobacco Use Types Packs/Day Years [...] on filedocumented in this encounter Care Teams Tribal Delegate Relationship Specialty Start Date End Date Farnaz Pineda MD [address] [place] [address] PCP - General 10/26/12 documented as of this encounter
--- OUTSIDE RECORDS SUMMARY | 2024-06-07 19:46 | XMS_ITS | Encounter Summary ---
Author Organization [facility] [place] [address] Care Team Providers Care Clinical Training Coordinator Name Role Phone Farnaz Pineda MD Primary Care Provider [phone] Reason for Visit * Reason Comments Hematuria Encounter Details Date Type Department Care Team (Latest Contact Info) Description 12/21/2012 12:00 PM EDT [place] [phone] Ross Madrid MD [facility] [place] [address] Hematuria (Primary Dx) Discharge Disposition: Home Social [...] unspecified documented in this encounter Care Teams Clinical Training Coordinator Relationship Specialty Start Date End Date Farnaz Pineda MD [address] [place] [address] PCP - General 10/26/12 documented as of this encounter
--- OUTSIDE RECORDS SUMMARY | 2024-06-07 19:47 | XMS_ITS | Encounter Summary ---
Author Organization [facility] Address [address] [place] [address] Care Team Providers Care Metal Furniture Glazier Name Role Phone Farnaz Pineda MD Primary Care Provider [phone] Reason for Referral * Cardiology (Routine/Next Available) - Closed Specialty Diagnoses / [facility] To Contact Diagnoses Abdominal aortic aneurysm (AAA) without rupture (HCC-CMS) Procedures TRANSTHORACIC ECHO (TTE) COMPLETE MD ECHO HEART XTHORACIC,COMPLETE W DOPPLER Fela Villegas NP [address] [address] Referral ID Status Reason Start Date Expiration Date Visits Re quested Visits Authorized [id number] Closed 03/11/2022 10/09/2022 1 1 Reason for Visit * Reason Comments Heart Problem 1 yr fur aortic valv e disorder s/p AVR 2001 Encounter Details Date Type Department Care Team (Late st Contact Info) Description 03/11/2022 15:20 EDT Office Visit [facility] Cardiology - [address] [place] [address] Fela Villegas NP [address] [phone] Paroxysmal atrial fibrillation (HCC-CMS) (HCC) [...] pleasure of seeing Dillan Al in the [facility] cardiology clinic today for Aortic valve [...] by DVT. c. Complicated by sepsis. d. [place] filter. 4. Ascending aorta 4.4cm CURRENT MEDICATIONS [...] Info) Description 03/18/2025 14:00 EDT Ancillary Procedure [facility] Cardiology [place] [address] [address] [place], [place] [id number] 03/18/2025 14:40 EDT Office Visit [facility] Cardiology [facility] [address] [place], [place] [phone] Fela Villegas NP [address] [facility] [address] [place] [address] Scheduled Orders Name Type Priority [...] EDT) 03/15/2022 14:5 9 EDT Scan 2 Hardware Test Engineer PROCEDURE/MINOR MARCO A GICAL ORDERABLES * EKG 12-LEAD (03/11/2022 15:27 EDT) 03/11/2022 15:2 7 EDT Narrative [facility] EKG - 03/15/2022 14:55 EDT ? The ? Test Date: ?2022-03-11 Pat Name: ? DILLAN AL ? Department: ?? Pierre Card ? Room: ? Gender: ? Male ? Pasting Inspector: ?? [id number] : ?1950 ? Requested By: GIULIA Mccormick Order Number: [id number] ? Reading MD: ?? ALVARO LECHUGA MD ? Measurements Intervals ?[place] ? Rate: ? 80 ? P: ?49 MD: ? 180 ?QRS: ?80 QRSD: ? 116 [...] Note Alvaro Lechuga MD - 03/15/2022 The Test Date: 2022-03-11 Pat Name: DILLAN AL Department: Pierre [facility]bell Room: Gender: Male Pasting Inspector: [id number] : 1950 Requested By: GIULIA Mccormick Order Number: [id number] Reading MD: ALVARO LECHUGA MD Measurements Intervals [place] Rate: 80 P: 49 MD: 180 QRS: 80 QRSD: 116 T: 30 QT: 363 QTc: 421 Interpretive Statements SINUS RHYTHM Compared to ECG 07/04/2020 14:34:35 Ventricular premature complex(es) no longer present I reviewed the tracing and have either agreed or edited the findings inthis report. Electronically Signed On 03-15-2022 14:55:35 EDT by ALVARO KNOTT. Fela Villegas NP CARDIAC ECG ORDERABL ES [facility] EKG documented in this encounter Visit Diagnoses Diagnosis Paroxysmal atrial fibrillation (HCC-CMS)- Primary Atrial fibrillation Abdominal aortic aneurysm (AAA) without rupture (HCC-CMS) documented in this encounter Care Teams Metal Furniture Glazier Relationship Specialty Start Date End Date Farnaz Pineda MD [address] [place] [address] PCP - General 11/18/09 documented as of this encounter
--- OUTSIDE RECORDS SUMMARY | 2024-06-07 19:47 | XMS_ITS | Clinical Summary ---
Author Organization [facility] Address [address] [place] [address] Care Team Providers Care Radiation Officer Name Role Phone Farnaz Pineda MD Primary Care Provider [phone] Fela Villegas DRILL FOREMAN Unavailable [phone] Allergies No known active allergies Medications Medication [...] Staphylococcus aureus (MSSA), unspecified part of lung ([facility]) Take 1 Tablet by mouth every 12 hours. 14 Tablet 04/19/2024 Active Active Problems Problem Noted Date Diagnosed Date Chronic cough 04/04/[address] of the chest 04/04/2024 Status post aortic valve replacement 03/27/2010 Overview: A [address] Marvin Valve Reactive airway disease 03/27/2010 Hyperlipidemia 03/27/2010 Overview: ICD10 Update Auto Replacement Encounters Date Type Department Care Team Description 06/06/2024 Lab Requisition [facility] Pathology & Laboratory Medicine - [address] [address] Outr Resulting Lab, Provider 06/04/2024 Telephone [facility] Pulmonology [address] [place] [phone] Felicia Taveras MBBS New/Evolving Symptoms 04/19/2024 Orders Only [facility] Operating Room [address] [place] [id number] Felicia Taveras MBBS HO (acute kidney injury) ([facility]) (Primary Dx) 04/17/2024 Telephone [facility] Pulmonology [address] [place] [address] Felicia Taveras MBBS DME (DME-NEBULIZER ORDER-[facility]) 04/16/2024 9:35 EDT - 04/16/2024 9:37 EDT Hospital Encounter [facility] Operating Room [address] [place] [address] [phone] Felicia Taveras MBBS ILD (interstitial lung disease) ([facility]) Discharge Disposition: Home or Self Care 04/16/2024 Orders Only [facility] Pulmonology [address] [place] [address] Felicia Taveras MBBS Bronchiectasis without complication ([facility]) (Primary Dx) 04/05/2024 Prep for Procedure [facility] Pulmonology [address] [place] [address] Felicia Taveras MBBS ILD (interstitial lung disease) ([facility]) (Primary Dx) 04/04/2024 15:25 EDT Phlebotomy Only [facility] - Outpatient Phlebotomy Drawing [address] [place] [address] Lab, [facility] Moderate persistent reactive airway disease without complication; Chronic cough; Abnormal CT of the chest; ILD (interstitial lung disease) ([facility]) 04/04/2024 14:00 EDT Office Visit [facility] Pulmonology [address] [place] [address] Felicia Taveras MBBS Moderate persistent reactive airway disease without complication (Primary Dx); Chronic cough; Abnormal CT of the chest; ILD (interstitial lung disease) ([facility]) 03/15/2024 15:20 EDT Office Visit [facility] Cardiology - [address] [place] [address] Fela Villegas NP Paroxysmal atrial fibrillation ([facility]) (Primary Dx); Encounter for follow-up for aortic valve replacement 03/15/2024 E-Consult [facility] Pulmonology & Critical Care - [address] [address] Diann Sol MD from Last [...] Info) Description 03/18/2025 14:00 EDT Ancillary Procedure [facility] Cardiology [facility] [address] [place], [place] [phone] 03/18/2025 14:40 EDT Office Visit [facility] Cardiology [facility] [address] [place], [place] [phone] Fela Villegas NP [address] [facility] [address] [place] [address] Health Maintenance Due Date Last Done Comments Asthma Action Plan 1950 Hepatitis C Screen 1950 Lung Function Test (Spirometry) 1950 RSV Immunization ( o r 60+ Years) (1 - 1-dose 60+ series) 2010 COVID-19 Vaccine (2 - 2022-2 4 season) 2023 08/05/2021 Fall Risk Screening 04/04/2025 04/04/2024, 03/11/2022, 03/05/2021, Additional history exists Medical Devices Implanted Type Area Catering Sous Chef Device Identifier Shelf Expiration Date Model / Serial / Lot Aortic Valve Replacement, Berry Filter Procedures Procedure Name Priority Date/Time Associated Diagnosis Comments IMMUNOGLOBULINS Routine 06/06/2024 11:50 EDT ECG REPORT - SCANNED 04/17/2024 10:45 EDT MISCELLANEOUS TEST, JOHNSON Routine 04/16/2024 13:46 EDT EXPANDED RESPIRATORY VIRAL PANEL, PCR (DOES NOT INCLUDE INFLUENZA OR RSV) Routine 04/16/2024 13:45 EDT NON LOG COOKER/FNA CYTOLOGY Routine 04/16/2024 13:42 EDT DIFFERENTIAL, LAVAGE [...] 11 :00 EDT ILD (interstitial lung disease) ([facility]) SSA/SSB PANEL Routine 04/04/2024 15:[address] of the chest ILD (interstitial lung disease) ([facility]) SCL 70 ANTIBODY, IGG, SERUM Routine 04/04/2024 15:[address] of the chest ILD (interstitial lung disease) ([facility]) EMERY WHEEL MOLDER ANTIBODY, IGG Routine 04/04/2024 15: [address] of the chest ILD (interstitial lung disease) (HCC-CMS) CCP ANTIBODIES Routine 04/04/2024 15:[address] of the chest ILD (interstitial lung disease) (HCC-CMS) ANTI NUCLEAR AB (OPAL), IFA Routine 04/04/2024 [...] (interstitial lung disease) (HCC-CMS) RHEUMATOID SCREEN/TITRE Routine 04/04/20 24 15:[address] of the chest ILD (interstitial lung disease) (HCC-CMS) ECG REPORT - SCANNED 03/18/2024 17:26 EDT EKG 12-LEAD Routine 03/15/2024 15:35 EDT Paroxysmal atrial fibrillation (HCC-CMS) from Last 3 Months Results * IMMUNOGLOBULINS (06/06/2024 11:50 EDT) IgG 803 610 - 1,616 mg/dL 06/07/2024 9:52 EDT [facility] IgA 377 85 - 499 mg/dL 06/07/2024 9:52 EDT [facility] IgM 65 35 - 242 mg/dL 06/07/2024 9:52 EDT [facility] Blood VENOUS BLOOD / Unknown 06/06/2024 11:50 EDT 06/06/2024 22:01 EDT Provider Outr Resulting Lab CHEMISTRY & BLOOD GAS ORDERABLES [facility] [address] [place] [address] * ECG REPORT - SCANNED (04/17/2024 10:45 EDT) 04/17/2024 10:4 5 EDT Scan 2 Environmental Associate PROCEDURE/MINOR MARCO A GICAL ORDERABLES * MISCELLANEOUS TEST, [place] (04/16/2024 13:46 EDT) Pathologist [facility] Miscellaneous Test, [place] SEE NOTE 04/17/2024 23:20 EDT [facility] Comment: Test ?Result ? Flag ??Unit ?? RefValue Aspergillus Ag, BAL ? <0.500 ? index ??<0.5 ? ADDITIONAL INFORMATION ?This is a qualitative test and the resulted index value is ?not indicative of disease severity. ??Serial testing is ?recommended for patients at high risk for invasive ?aspergillosis. ?This assay was performed using the FDA-cleared [employer] ?Platelia Aspergillus Galactomannan EIA. ?Test Performed by: ?[facility] ?[address] [place] [address] ?Operations Officer: Cherrie Fernandez Ph.D.; CLIA# [id number] Fluid STRUCTURE OF UPPER LOBE OF LEFT LUNG / Unknown 04/16/2024 13:46 EDT 04/16/2024 14:05 EDT Felicia DELEON CHEMI STRY & BLOOD GAS ORDERABLES [facility] [address] [place] [address] * EXPANDED RESPIRATORY VIRAL PANEL, PCR (DOES NOT INCLUDE INFLUENZA OR RSV) (04/16/2024 13:45 EDT) Paraflu Type 1 Rslt (PF1RES) Negative Negative 04/16/2024 23:50 EDT [facility] Paraflu Type 2 Rslt (PF2RES) Negative Negative 04/16/2024 23:50 EDT [facility] Paraflu Type 3 Rslt (PF3RES) Negative Negative 04/16/2024 23:50 EDT [facility] Paraflu Type 4 Rslt Negative Negative 04/16 23:50 EDT [facility] Rhinovirus RNA Rslt (RVRES) Negative Negative 04/16/2024 23:50 EDT [facility] Metapneumovirus RNA Rslt (HMVRES) Negative Negative 04/16/2024 23:50 EDT [facility] Adenovirus DNA Rslt (ADVRES) Negative Negative 04/16/2024 23:50 EDT [facility] BAL STRUCTURE OF UPPER LOBE OF LEFT LUNG / Unknown 04/16/2024 13:45 EDT 04/16/2024 14:07 EDT Narrative [facility] - 04/16/2024 23:50 EDT This test was developed and its performance characteristics by [facility]. It has not been cleared or [...] perform high complexity clinical laboratory testing. Felicia Castantoniobettyaura GOLDENBS MICRO BIOLOGY - GENERAL ORDERABLES [facility] [address] [place] [phone] * NON LOG COOKER/FNA CYTOLOGY (04/16/2024 13:42 EDT) Note to Patient The following pathology results have been interpreted by your pathologist and may be available to you before your health provider has had the opportunity to review them. Please allow time for your provider to receive these results and explore management options, if applicable. 04/18/2024 14:57 [facility] Final Diagnosis A. BRONCHOALVEOLAR LAVAGE, LEFT UPPER LOBE, ANTERIOR SEGMENT, CYTOLOGIC EVALUATION: - No malignant cells identified. - Occasional benign bronchial cells and abundant alveolar macrophages present. - Silver stain: Negative for fungal organisms. - Oil Red O stain: Less than 10% lipid-laden macrophages. 04/18/2024 14:57 [facility] Attestation By the signature below, the attending physician certifies that they have personally conducted a gross and/or microscopic examination of the described specimens and rendered or confirmed the above diagnosis. 04/18/2024 14:57 [facility] at 1457 Clinical History 04/18/2024 14:57 [facility] Gross Description A. 25 mL of cloudy, pale pink fluid with red fragments were received and processed by selective cellular enhancement technique. 04/18/2024 14:57 [facility] Performing Lab [facility] 07/2024 14:57 [facility] Scanned Images 04/18/2024 14:57 [facility] BAL STRUCTURE OF UPPER LOBE OF LEFT LUNG / Unknown 04/16/2024 13:42 EDT 04/17/2024 10:56 EDT Felicia DELEON PATHO LOGY ORDERABLES Performing Organization Address [facility] Co de Phone Number [facility] [address] [place] [address] * DIFFERENTIAL, LAVAGE FLUID (04/16/2024 13:42 EDT) Neutrophils Fluid Relative 19 % 04/21/2024 12:48 EDT [facility] Lymphocytes Fluid Relative 24 % 04/21/2024 12:48 EDT [facility] Mineral/Macrophage 57 % 12:48 EDT [facility] Path Review Fluid, other Reviewed by Dr Sandra Arnold 7.10.24. 04/21/2024 12:48 EDT [facility] BAL STRUCTURE OF UPPER LOBE OF LEFT LUNG / Unknown 04/16/2024 13:42 EDT 04/16/2024 14:08 EDT Narrative [facility] - 04/21/2024 12:48 EDT Bacteria present. Lining cells present. Felicia DELEON GEN L AB UNIT COLLECT ORDERABLES Performing Organization Address City/[facility] Co de Phone Number [facility] [address] [place] [address] * (ABNORMAL) BACTERIAL CULTURE/SMEAR, RESPIRATORY (04/16/2024 13:42 EDT) Only the most recent of2 resultswithin the time period is included. Organism ID 10, 000 to 100,000 CFU/ml VITEK SUSCEPTIBILITY 04/18/2024 11:07 EDT [facility] Comment: Usual kayce-pharyngeal david Smear Neutrophils Present(A) 04/18/2024 11:07 EDT [facility] Comment:Corrected result: Pr eviously reported as Few Neutrophils Present on 04/16/2024 at 1558 EDT. Smear Squamous Epithelial Cells(A) 04/18/2024 11:07 EDT [facility] Comment:Corrected result: Pr eviously reported as Few Squamous Epithelial Cells on 04/16/2024 at 1558 EDT. Smear Gram Positive Cocci(A) 04/18/2024 11:07 EDT [facility] Comment:Corrected result: Pr eviously reported as Few Gram Positive Cocci on 04/16/2024 at 1558 EDT. Smear Respiratory epithelial cells absent(A) 04/18/2024 11:07 EDT [facility] Smear Mucus present(A) 04/18/2024 11:07 EDT [facility] Comment: Cytospin gram stain interpreted. KEELEY anterior segment - BAL BAL STRUCTURE OF UPPER LOBE OF LEFT LUNG / Unknown 04/16/2024 13:42 EDT 04/16/2024 14:08 EDT Felicia DELEON MICRO BIOLOGY - GENERAL ORDERABLES Performing Organization Address City/[facility]/ZIP Co de Phone Number [facility] [address] [place] [address] * FUNGUS CULTURE (04/16/2024 13:42 EDT) Only the most recent of2 resultswithin the time period is included. Organism ID Yeast isolated at 1st reading VITEK SUSCEPTIBILITY 05/14/2024 11:07 EDT [facility] Organism ID Yeast Not Cryptococcus or Dimorphic Fungi VITEK SUSCEPTIBILITY 05/14/2024 11:07 EDT [facility] BAL STRUCTURE OF UPPER LOBE OF LEFT LUNG / Unknown 04/16/2024 13:42 EDT 04/16/2024 14:08 EDT Felicia DELEON MICRO BIOLOGY - GENERAL ORDERABLES Performing Organization Address City/[facility]/ZIP Co de Phone Number [facility] [address] [place] [address] * ADULT BRONCHOSCOPY (04/16/2024 11:00 EDT) Anatomical [...] scanned media. Lidocaine 1% administered in a xxngv-jy-vjx-go fashion. ?? Endobronchial findings: There was significant [...] I personally spent 22 minutes in continuous ctsd-if-ntei attendance with the patient during the administration [...] AM By Freddy Taveras Felicia DELEON GI MO OCEDURE ORDERABLES * RHEUMATOID SCREEN/TITRE (04/04/2024 15:32 EDT) Pathologist [facility] Rheumatoid Factor <8.6 <12.0 IU/mL 04/04/2024 21:53 EDT [facility] Blood VENOUS BLOOD / Unknown Venipuncture / Unknown 04/04/2024 15:32 EDT 04/04/2024 16:26 EDT Felicia DELEON CHEMI STRY & BLOOD GAS ORDERABLES [facility] [address] [place] [address] * SSA/SSB PANEL (04/04/2024 15:32 EDT) Pathologist [facility] Ro52 Anitbody, IgG <2.3 <20.0 CU 2023 11:35 EDT [facility] Comment:Results were obtaine d with the NavidogA Flash Ro52 chemiluminescent immunoassay. Values obtained with different manufacturers' assay methods must not be used interchangeably. Ro60 Antibody, IgG <7.0 <20.0 CU 2023 11:35 EDT [facility] Comment:Results were obtaine d with the NavidogA Flash Ro60 chemiluminescent immunoassay. Values obtained with different manufacturers' assay methods must not be used interchangeably. SSB Antibody, IgG <3.3 <20.0 CU 024 11:35 EDT [facility] Comment:Results were obtaine d with the NavidogA Flash SS-B chemiluminescent immunoassay. Values obtained with different manufacturers' assay methods must not be used interchangeably. Blood VENOUS BLOOD / Unknown Venipuncture / Unknown 04/04/2024 15:32 EDT 04/04/2024 16:26 EDT Felicia Taveras [facility] SEROLOGY ORDERABLES Performing Organization Address [facility]/ZIP Co de Phone Number [facility] [address] [place] [address] * CCP ANTIBODIES (04/04/2024 15:32 EDT) CCP Antibodies <2.5 <5.0 U/mL 04/05/2024 8:07 EDT [facility] Blood VENOUS BLOOD / Unknown Venipuncture / Unknown 04/04/2024 15:32 EDT 04/04/2024 16:26 EDT Felicia Taveras [facility] IMMUN OLOGY AND SEROLOGY ORDERABLES Performing Organization Address [facility] Co de Phone Number [facility] [address] [place] [address] * EMERY WHEEL MOLDER ANTIBODY, IGG (04/04/2024 15:32 EDT) EMERY WHEEL MOLDER Antibody, IgG <6.0 <20.0 CU 024 11:35 EDT [facility] Comment:Results were obtaine d with the [employer] QUANTA Flash EMERY WHEEL MOLDER chemilumenscent immunoassay. Values obtained with different manufacturers' assay methods may not be used interchangeably. Blood VENOUS BLOOD / Unknown Venipuncture / Unknown 04/04/2024 15:32 EDT 04/04/2024 16:26 EDT Felicia Taveras [facility] IMMUN OLOGY AND SEROLOGY ORDERABLES [facility] [address] [place] [address] * SCL 70 ANTIBODY, IGG, SERUM (04/04/2024 15:32 EDT) Scl 70 Ab, IgG, S <0.2 <1.0 (Negative ) U 04/05/2024 17:04 EDT [facility] Comment: Test Performed by: [facility] [address] [place] [address] Operations Officer: Cherrie Fernandez Ph.D.; CLIA# [id number] Blood VENOUS BLOOD / Unknown Venipuncture / Unknown 04/04/2024 15:32 EDT 04/04/2024 16:30 EDT [facility] IMMUN OLOGY AND SEROLOGY ORDERABLES Performing Organization Address [facility] Co de Phone Number [facility] [address] [place] [id number] * DOUBLE STRANDED DNA ANTIBODY, IGG (04/04/2024 15:32 EDT) dsDNA Ab, IgG <22.0 <27.0 IU/mL 04/05/2024 11:35 EDT [facility] Comment: Negative: <27.0 IU/mL Indeterminate: 27.0 - 35.0 IU/mL Positive: >35.0 IU/mL Results were obtained with [employer] QUANTA Flash dsDNA chemiluminescent immunoassay. Values obtained with different manufacturers' assay methods may not be used interchangeably. Blood VENOUS BLOOD / Unknown Venipuncture / Unknown 04/04/2024 15:32 EDT 04/04/2024 16:26 EDT Felicia DELEON IMMUN OLOGY AND SEROLOGY ORDERABLES [facility] [address] [place], [place] [id number] * (ABNORMAL) COMPLETE BLOOD COUNT AND DIFFERENTIAL (04/04/2024 15:32 EDT) WBC 8.87 4.00 - 10.40 K/cmm 04/04/2024 16:26 [facility] RBC 4.25(L) 4.36 - 5.78 M/cmm 04/04/2024 16:26 [facility] Hemoglobin 13.2(L) 13.8 - 17.3 g/dL 04/04/2024 16:26 [facility] HCT 42.2 39.5 - 50.2 % 04/04/2024 16:26 [facility] MCV 99(H) 81 - 95 fL 04/04/2024 16:26 [facility] MCH 31.1 27.6 - 33.0 pg 04/04/2024 16:26 [facility] MCHC 31.3(L) 32.8 - 36.4 g/dL 04/04/2024 16:26 [facility] RDW-CV 15.6(H) <14.2 % 04/04/2024 16:26 [facility] RDW-SD 56.7(H) <46.0 fl 04/04/2024 16:26 [facility] PLT 205 141 - 377 K/cmm 04/04/2024 16:26 [facility] MPV 10.0 9.5 - 12.7 fL 04/04/2024 16:26 [facility] % Neutrophils 71.5 % 04/04/2024 16:26 [facility] % Lymphocytes 13.4 % 04/04/2024 16:26 [facility] % Monocytes 7.2 % 04/04/2024 16:26 [facility] % Eosinophils 6.7 % 04/04/2024 16:26 [facility] % Basophils 0.9 % 04/04/2024 16:26 [facility] % Immature Grans 0.3 <0.9 % 04/04/20 16:26 [facility] Absolute Neutrophils 6.34 2.20 - 8.85 K/cmm 04/04/2024 16:26 [facility] Absolute Lymphocytes 1.19 1.09 - 3.30 K/cmm 04/04/2024 16:26 [facility] Absolute Monocytes 0.64 0.10 - 0.80 K/cmm 04/04/2024 16:26 [facility] Absolute Eosinophils 0.59 0.03 - 0.61 K/cmm 04/04/2024 16:26 [facility] ABS Basophils 0.08 0.01 - 0.11 K/cmm 04/04/2024 16:26 [facility] Absolute Immature Grans 0.03 0.00 - 0.06 K/cmm 04/04/2024 16:26 [facility] Type of Differential: Auto 04/04/2024 16:26 [facility] Blood VENOUS BLOOD / Unknown Venipuncture / Unknown 04/04/2024 15:32 EDT 04/04/2024 16:22 EDT Felicia NERI GES & DNA PROBE ORDERABLES [facility] [address] [place] [address] * ANTI NUCLEAR AB (OPAL), IFA (04/04/2024 15:32 EDT) Pathologist [facility] OPAL Interpretation Negative Negative 2023 14:28 EDT [facility] Comment:No titer performed, OPAL Screen is negative. Blood VENOUS BLOOD / Unknown Venipuncture / Unknown 04/04/2024 15:32 EDT 04/04/2024 16:26 EDT Narrative [facility] - 04/05/2024 14:28 EDT Results were obtained with the [employer] NOVA Lite HEp-2 OPAL Kit by indirect immunofluorescence. Felicia DELEON IMMUN OLOGY AND SEROLOGY ORDERABLES [facility] [address] [place] [address] * (ABNORMAL) BASIC METABOLIC PANEL (BMP) (04/04/2024 15:32 EDT) [facility] Sodium 138 136 - 145 mmol/L 04/04/2024 17:01 [facility] Potassium 4.7 3.5 - 5.0 mmol/L 04/04/2024 17:01 [facility] Chloride 104 96 - 110 mmol/L 04/04/2024 17:01 [facility] CO2 Total 27 22 - 32 mmol/L 04/04/2024 17:01 [facility] Anion Gap 7 5 - 14 mmol/L 04/04/2024 17:01 [facility] Glucose 74 70 - 99 mg/dl 04/04/2024 17:01 [facility] Calcium 9.1 8.5 - 10.5 mg/dL 04/04/2024 17:01 [facility] BUN 22 10 - 26 mg/dL 04/04/2024 17:01 [facility] Creatinine 1.38(H) 0.66 - 1.25 mg/dL 04/04/2024 17:01 [facility] eGFR 54(L) >60 mL/min/1.73 m2 04/04/2024 17:01 EDT [facility] Blood VENOUS BLOOD / Unknown Venipuncture / Unknown 04/04/2024 15:32 EDT 04/04/2024 16:28 EDT Felicia Taveras MBBS CHEMI STRY & BLOOD GAS ORDERABLES [facility] [address] [place] [id number] * ECG REPORT - SCANNED (03/18/2024 17:26 EDT) 03/18/2024 17:2 6 EDT Scan 2 Environmental Associate PROCEDURE/MINOR MARCO A GICAL ORDERABLES * EKG 12-LEAD (03/15/2024 15:35 EDT) 03/15/2024 15:3 5 EDT Narrative [facility] EKG - 03/16/2024 11:42 EDT ? [facility] ? Test Date: ?2024-03-15 Pat Name: ? DILLAN AL ? Department: ?? [facility] ? Room: ? Gender: ? Male ? 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 [id number] : ?1950 ? Requested By: GIULIA Mccormick Order Number: [id number] ? Reading : ?? ALVARO LECHUGA MD ? Measurements Intervals ?Rule ? Rate: ? 63 ? P: ?-5 MO: ? 187 ?QRS: ?-16 QRSD: ? 117 [...] AL Department: [facility] Room: Gender: Male Pilot Plant Operator Helper: [id number] : 1950 Requested By: GIULIA Mccormick Order Number: [id number] Reading MD: ALVARO LECHUGA MD Measurements Intervals Rule Rate: 63 P: -5 MO: 187 QRS: -16 QRSD: 117 T: 30 [...] Fela Villegas NP CARDIAC ECG ORDERABL ES [facility] EKG from Last 3 Months Care Teams Radiation Officer Relationship Specialty Start Date End Date Farnaz Pineda MD [address] [place] [address] PCP - General 11/18/09 Fela Villegas NP [address] [place] [address] [place] [address] [phone] Rx Specialist Cardiovascular Disease 03/12/22
--- OUTSIDE RECORDS SUMMARY | 2024-06-07 19:47 | XMS_ITS | Encounter Summary ---
Author Organization [facility] Address [address] [place] [address] Care Team Providers Care Psychological Examiner Name Role Phone Farnaz Pineda MD Primary Care Provider Fela Villegas PYTHON JAVA DEVELOPER Unavailable [phone] Reason for Visit * Reason Onset Date Comments DME 04/17/2024 DME-NEBULIZER OR CEE-ADAPTHEALTH Encounter Details Date Type Department Care Team (Late st Contact Info) Description 04/17/2024 Telephone [facility] [address] [facility], [place] [address] Felicia Taveras MBBS 111 [facility], [facility] [address] [place] [address] DME (DME-NEBULIZER ORDER-ADAPTHEALTH) Social History [...] Info) Description 03/18/2025 14:00 EDT Ancillary Procedure [facility] Cardiology - [address] [place], [place] [id number] 03/18/2025 14:40 EDT Office Visit [facility]iology - [place] [address] [place], [place] [phone] Fela Villegas NP [address] [address] documented as of this encounter Visit Diagnoses Not on filedocumented in this encounter Care Teams Psychological Examiner Relationship Specialty Start Date End Date Farnaz Pineda MD [address] [place] [address] PCP - General 11/18/09 Fela Villegas NP [address] [place] [phone] Air Traffic Control Manager Cardiovascular Disease 03/12/22 documented as of this encounter
--- OUTSIDE RECORDS SUMMARY | 2024-06-07 19:47 | XMS_ITS | Encounter Summary ---
Author Organization [facility] Address [address] [place] [address] Care Team Providers Care Milk Drying Machine Operator Name Role Phone Farnaz Pineda MD Primary Care Provider [phone] Fela Villegas WINE AND SPIRITS CLERK Unavailable [phone] Reason for Referral * Referral (Routine/Next Available) - Receiving Office to Obtain Authorization Specialty Diagnoses / Procedures Referred By Berta tavera Referred To Contact Diagnoses ILD (interstitial lung disease) ([facility]) Procedures ADULT BRONCHOSCOPY Felicia Taveras MBBS [address] [address] [facility] [address] [place] [id number] Referral ID Status Reason Start Date Expiration Date Visits Requested Visits Authorized [id number] Receiving Office to Obtain Authorization 04/05/2024 1 1 Encounter Details Date Type Department Care Team (Late st Contact Info) Description 04/05/[address] [facility] [place] [address] [place] [address] Felicia Taveras MBBS [address] [address] ILD (interstitial lung disease) ([facility]) (Primary Dx) Social History Tobacco Use Types [...] Info) Description 03/18/2025 14:00 EDT Ancillary Procedure [facility] Cardiology - [facility] [place] [address] 03/18/2025 14:40 EDT Office Visit [facility] Cardiology - [facility] [place] [address] Fela Villegas NP [address] [facility] [address] [place] [address] documented as of this encounter [...] scanned media. Lidocaine 1% administered in a ebgme-mm-tul-go fashion. ?? Endobronchial findings: There was significant [...] I personally spent 22 minutes in continuous [id number]-mv-[id number] attendance with the patient during the administration [...] AM By Freddy Taveras Felicia DELEON GI OR OCEDURE ORDERABLES documented in this encounter Visit Diagnoses Diagnosis ILD (interstitial lung disease) (HCC-CMS)- Primary Postinflammatory pulmonary fibrosis ILD (interstitial lung disease) (HCC-CMS) Postinflammatory pulmonary fibrosis documented in this encounter Care Teams Milk Drying Machine Operator Relationship Specialty Start Date End Date Farnaz Pineda MD [address] [place] [address] PCP - General 11/18/09 Fela Villegas NP [address] [address] Intake Clinician Cardiovascular Disease 03/12/22 documented as of this encounter
--- OUTSIDE RECORDS SUMMARY | 2024-06-07 19:47 | XMS_ITS | Encounter Summary ---
Author Organization [facility] Address [address] [place] [address] Care Team Providers Care Operational Risk Analyst Name Role Phone Farnaz Pineda MD Primary Care Provider [phone] Fela Villegas BOX STORAGE WORKER Unavailable [phone] Reason for Referral * Laboratory Services (Routine/Next Available) - New Request Specialty Diagnoses / Procedures [facility] Referred To Contact Diagnoses HO (acute kidney injury) ([facility]) Procedures BUN Felicia Tvaeras MBBS [address] [address] Referral ID Status Reason Start Date Expiration Date V isits Requested Visits Authorized [id number] New Request 04/19/2024 1 1 * Laboratory Services (Routine/Next Available) - New Request Specialty Diagnoses / Procedures [facility] Referred To Contact Diagnoses HO (acute kidney injury) ([facility]) Procedures CREATININE Felicia Taveras MBBS [address] [address] Referral ID Status Reason Start Date Expiration Date V isits Requested Visits Authorized [id number] New Request 04/19/2024 1 1 Encounter Details Date Type Department Care Team (Late st Contact Info) Description 04/19/2024 Orders Only [facility] Operating Room [address] [place] [address] Felicia Taveras MBBS 111 [facility], [address] [place] [address] HO (acute kidney injury) ([facility]) (Primary Dx) Social History Tobacco [...] Ancillary Procedure [facility] [place]iology [place] [address] [place] [address] 03/18/2025 14:40 EDT Office Visit [facility] Cardiology - [address] [place], [place] [phone] Fela Villegas NP [address] [address] Scheduled Orders Name Type Priority Associated Diagnoses Orde r Schedule CREATININE Lab Routine HO (acute kidney injury) ([facility]) Expected: 04/19/2024 (Approximate), Expires: 04/19/2025 BUN Lab Routine HO (acute kidney injury) ([facility]) Expected: 04/19/2024 (Approximate), Expires: 04/19/2025 documented as of this encounter Visit Diagnoses Diagnosis HO (acute kidney injury) ([facility])- Primary Acute kidney failure, unspecified documented in this encounter Care Teams Operational Risk Analyst Relationship Specialty Start Date End Date Farnaz Pineda MD [address] [place] [address] PCP - General 11/18/09 Fela Villegas NP [address] [place] [address] Air Analysis Technician Cardiovascular Disease 03/12/22 documented as of this encounter
--- OUTSIDE RECORDS SUMMARY | 2024-06-07 19:47 | XMS_ITS | Encounter Summary ---
Author Organization [facility] Address [address] [place] [address] Care Team Providers Care Tar Kettle Runner Name Role Phone Farnaz Pineda MD Primary Care Provider [phone] Fela Villegas BATCH TESTER Unavailable [phone] Encounter Details Date Type Department Care Team (Late st Contact Info) Description 06/06/2024 Lab Requisition [facility] Pathology & Laboratory Medicine - [facility] [address] [place] [address] Outr Resulting Lab, Provider Social History Tobacco Use Types Packs/Day Years [...] Description 03/18/2025 14:00 EDT Ancillary Procedure [facility] Cardiology - [address] [place] [address] 03/18/2025 14:40 EDT Office Visit [facility] Cardiology - [facility] [address] [place] [address] Fela Villegas NP 62 [facility] [address] [place] [address] documented as of this encounter Procedures Procedure Name Priority Date/Time Associated Diagnosis Comments IMMUNOGLOBULINS Routine 06/06/2024 11:50 EDT documented in this encounter Results * IMMUNOGLOBULINS (06/06/2024 11:50 EDT) IgG 803 610 - 1,616 mg/dL 06/07/2024 9:[address] [facility] IgA 377 85 - 499 mg/dL 06/07/2024 9:[address] [facility] IgM 65 35 - 242 mg/dL 06/07/2024 9:[address] [facility] Blood VENOUS BLOOD / Unknown 06/06/2024 11:50 EDT 06/06/2024 22:01 EDT Provider Outr Resulting Lab CHEMISTRY & BLOOD GAS ORDERABLES [facility] [address] [place], [place] [phone] documented in this encounter Visit Diagnoses Not on filedocumented in this encounter Care Teams Tar Kettle Runner Relationship Specialty Start Date End Date Farnaz Pineda MD [address] [place], [place] [phone] PCP - General 11/18/09 Fela Villegas NP 62 [facility] [address] [place] [address] Cable Engineer Cardiovascular Disease 03/12/22 documented as of this encounter
--- OUTSIDE RECORDS SUMMARY | 2024-06-07 19:47 | XMS_ITS | Encounter Summary ---
Author Organization [facility] Address [address] [place] [address] Care Team Providers Care Brazing Machine Operator Automatic Name Role Phone Farnaz Pineda MD Primary Care Provider [phone] Fela Villegas CHANGE ATTENDANT Unavailable [phone] Reason for Visit * (Routine/Next Available) - Receiving Office to Obtain Authorization Specialty Diagnoses / Procedures Referred By Berta tavera Referred To Contact Procedures CT OUTSIDE IMAGES ABDOMEN PELVIS Unknown, Provider, Referral ID Status Reason Start Date Expiration Date Visits Requested Visits Authorized [id number] Receiving Office to Obtain Authorization 03/22/2023 1 1 Encounter Details Date Type Department Care Team (Latest Contact Info) Description 03/22/2023 16:56 EDT - 03/22/2023 23:59 EDT Hospital Encounter [facility] Secondary [place] Discharge Disposition: Home [...] Info) Description 03/18/2025 14:00 EDT Ancillary Procedure [facility] Cardiology [address] [place], [place] [phone] 03/18/2025 14:40 EDT Office Visit [facility] Cardiology [facility] [place] [address] Fela Villegas NP 62 [facility] [address] [place] [address] documented as of this encounter [...] on filedocumented in this encounter Care Teams Brazing Machine Operator Automatic Relationship Specialty Start Date End Date Farnaz Pineda MD [address] [place] [address] PCP - General 11/18/09 Fela Villegas NP [address] [place] [address] Biscuitware Brusher Cardiovascular Disease 03/12/22 documented as of this encounter
--- OUTSIDE RECORDS SUMMARY | 2024-06-07 19:47 | XMS_ITS | Encounter Summary ---
Author Organization [facility] Address [address] [place] [address] Care Team Providers Care Shovel Log Loader Operator Name Role Phone Farnaz Pineda MD Primary Care Provider [phone] Fela Villegas VACUUM PAN TENDER Unavailable [phone] Reason for Visit * Reason Onset Date Comments New/Evolving Symptoms 06/04/2024 Encounter Details Date Type Department Care Team (Late st Contact Info) Description 06/04/2024 Telephone [facility] - [facility] Pulmonology [address] [place] [address] Felicia Taveras MBBS [address] [place] [address], [facility] [address] [place] [address] New/Evolving Symptoms Social History Tobacco [...] States that they have an appointment in [facility] with a Supervisor Component Assembler, no appointment needed at this time and [...] Info) Description 03/18/2025 14:00 EDT Ancillary Procedure [facility] Cardiology - [address] [place] [address] 03/18/2025 14:40 EDT Office Visit [facility] Cardiology - [address] [place] [address] Fela Villegas NP [address] [place] [address] documented as of this encounter Visit Diagnoses Not on filedocumented in this encounter Care Teams Shovel Log Loader Operator Relationship Specialty Start Date End Date Farnaz Pineda MD [address] [place] [address] PCP - General 11/18/09 Fela Villegas NP [address] [place] [phone] Crime Prevention Police Officer Cardiovascular Disease 03/12/22 documented as of this encounter
--- OUTSIDE RECORDS SUMMARY | 2024-06-07 19:47 | XMS_ITS | Encounter Summary ---
Author Organization [facility] Address [address] [place] [address] Care Team Providers Care Examiner Of Currency Name Role Phone Farnaz Pineda MD Primary Care Provider [phone] Fela Villegas TELEPHONE OPERATORS SUPERVISOR Unavailable [phone] Reason for Visit * Reason Onset Date Comments Appointment Related 03/19/2022 Encounter Details Date Type Department Care Team (Late st Contact Info) Description 03/19/2022 Telephone [facility] Cardiology - [address] [phone] Fela Villegas NP 62 [facility] [address] [place] [address] Appointment Related Social History Tobacco Use [...] [place] - 03/19/2022 1428 EDT Jessica from [facility] called for a AUTH for Transthoracic Echo. documented in this encounter Plan of Treatment Upcoming Encounters Date Type Department Care Team (Late st Contact Info) Description 03/18/2025 14:00 EDT Ancillary Procedure [facility] Cardiology - [address] [place] [address] 03/18/2025 14:40 EDT Office Visit [facility] Cardiology - [address] [place], [place] [phone] Fela Villegas NP [address] [place] [phone] documented as of this encounter Visit Diagnoses Not on filedocumented in this encounter Care Teams Examiner Of Currency Relationship Specialty Start Date End Date Farnaz Pineda MD [address] [place] [address] PCP - General 11/18/09 Fela Villegas NP [address] [place] [phone] Hospital Food Service Worker Cardiovascular Disease 03/12/22 documented as of this encounter
--- OUTSIDE RECORDS SUMMARY | 2024-06-07 19:47 | XMS_ITS | Encounter Summary ---
Author Organization [facility] [place] [address] Care Team Providers Care Oil Boiler Name Role Phone Farnaz Pineda MD Primary Care Provider [phone] Encounter Details Date Type Department Care Team (Late st Contact Info) Description 11/02/2012 9:05 AM EST Clinical Support Hematology [place] [phone] Social History Tobacco Use Types Packs/Day Years [...] on filedocumented in this encounter Care Teams Oil Boiler Relationship Specialty Start Date End Date Farnaz Pineda MD [address] [place] [address] PCP - General 10/26/12 documented as of this encounter
--- OUTSIDE RECORDS SUMMARY | 2024-06-07 19:47 | XMS_ITS | Encounter Summary ---
Author Organization [facility] Address [address] [place] [address] Care Team Providers Care Canvas Goods Supervisor Name Role Phone Farnaz Pineda MD Primary Care Provider [phone] Fela Villegas CITRUS PICKER Unavailable [phone] Reason for Referral * Referral (Routine/Next Available) - Receiving Office to Obtain Authorization Specialty Diagnoses / Procedures Referred By Berta tavera Referred To Contact Diagnoses ILD (interstitial lung disease) ([facility]) Procedures ADULT BRONCHOSCOPY Felicia Taveras MBBS [address] [address] [facility] [address] [place] [address] Referral ID Status Reason Start Date Expiration Date Visits Requested Visits Authorized [id number] Receiving Office to Obtain Authorization 04/05/2024 1 1 Reason for Visit * Referral (Routine/Next Available) - Receiving Office to Obtain Authorization Specialty Diagnoses / Procedures Referred By Berta tavera Referred To Contact Diagnoses ILD (interstitial lung disease) ([facility]) Procedures ADULT BRONCHOSCOPY Felicia Taveras MBBS [address] [address] [facility] [address] [place] [address] Referral ID Status Reason Start Date Expiration Date Visits Requested Visits Authorized [id number] Receiving Office to Obtain Authorization 04/05/2024 1 1 Encounter Details Date Type Department Care Team (Late st Contact Info) Description 04/16/2024 9:35 EDT - 04/16/2024 9:37 EDT [facility] [address] [place] [address] Felicia Taveras MBBS 111 [facility], [facility] [address] [place] [address] ILD (interstitial lung disease) ([facility]) Discharge Disposition: Home or Self Care Social [...] sent through Care Everywhere. * Bronchoscopy: Post-op (Yakut) documented in this encounter Medications at Time [...] - 04/16/2024 1100 EDT Date: 04/16/2024 Location: [facility] OR Name: Sylvain [...] scanned media. Lidocaine 1% administered in a lwbuv-yv-wfw-go fashion. 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 Cardiology - [place] [address] 03/18/2025 14:[address] [facility] - [address] [place] [address] Fela Villegas NP [address] [place] [address] Pending Results Name Type Priority [...] CULTURE SMEAR Today 04/16/2024 13:42 EDT NON MUSICIAN INSTRUMENTAL/FNA CYTOLOGY Routine 04/16/2024 13:42 EDT AFB CULTURE/SMEAR, [...] 11 :00 EDT ILD (interstitial lung disease) ([facility]) documented in this encounter Results * ECG REPORT - SCANNED (04/17/2024 10:45 EDT) 04/17/2024 10:4 5 EDT Scan 2 Outdoor Landscape Architect PROCEDURE/MINOR MARCO A GICAL ORDERABLES * MISCELLANEOUS TEST, GLEN ELLYN (04/16/2024 13:46 EDT) Pathologist [facility] Miscellaneous Test, [place] SEE NOTE 04/17/2024 23:20 EDT [facility] Comment: Test ?Result ? Flag ??Unit ?? RefValue Aspergillus Ag, BAL ? <0.500 ? index ??<0.5 ? ADDITIONAL INFORMATION ?This is a qualitative test and the resulted index value is ?not indicative of disease severity. ??Serial testing is ?recommended for patients at high risk for invasive ?aspergillosis. ?This assay was performed using the FDA-cleared [employer] ?Platelia Aspergillus Galactomannan EIA. ?Test Performed by: ?[facility] ?[address] [place] [address] ?Greige Mender: Cherrie Fernandez Ph.D.; CLIA# [id number] Fluid STRUCTURE OF UPPER LOBE OF LEFT LUNG / Unknown 04/16/2024 13:46 EDT 04/16/2024 14:05 EDT Felicia DELEON CHEMI STRY & BLOOD GAS ORDERABLES [facility] [address] [place] [address] * EXPANDED RESPIRATORY VIRAL PANEL, PCR (DOES NOT INCLUDE INFLUENZA OR RSV) (04/16/2024 13:45 EDT) Paraflu Type 1 Rslt (PF1RES) Negative Negative 04/16/2024 23:50 EDT [facility] Paraflu Type 2 Rslt (PF2RES) Negative Negative 04/16/2024 23:50 EDT [facility] Paraflu Type 3 Rslt (PF3RES) Negative Negative 04/16/2024 23:50 EDT [facility] Paraflu Type 4 Rslt Negative Negative 04/16 23:50 EDT [facility] Rhinovirus RNA Rslt (RVRES) Negative Negative 04/16/2024 23:50 EDT [facility] Metapneumovirus RNA Rslt (HMVRES) Negative Negative 04/16/2024 23:50 EDT [facility] Adenovirus DNA Rslt (ADVRES) Negative Negative 04/16/2024 23:50 EDT [facility] BAL STRUCTURE OF UPPER LOBE OF LEFT LUNG / Unknown 04/16/2024 13:45 EDT 04/16/2024 14:07 EDT Narrative [facility] - 04/16/2024 23:50 EDT [...] Felicia DELEON MICRO BIOLOGY - GENERAL ORDERABLES [facility] [address] [place] [address] * NON MUSICIAN INSTRUMENTAL/FNA CYTOLOGY (04/16/2024 13:42 EDT) Note to Patient [...] by selective cellular enhancement technique. 04/18/2024 14:57 [facility] Performing Lab [facility] 07/2024 14:57 [facility] Scanned Images 04/18/2024 14:57 [facility] BAL STRUCTURE OF UPPER LOBE OF LEFT LUNG / Unknown 04/16/2024 13:42 EDT 04/17/2024 10:56 EDT Felicia DELEON PATHO LOGY ORDERABLES Performing Organization Address [facility] Co de Phone Number [facility] [address] [place] [address] * DIFFERENTIAL, LAVAGE FLUID (04/16/2024 13:42 EDT) Neutrophils Fluid Relative 19 % 04/21/2024 12:48 EDT [facility] Lymphocytes Fluid Relative 24 % 04/21/2024 12:48 EDT [facility] [place]/Macrophage 57 % 12:48 EDT [facility] Path Review Fluid, other Reviewed by Dr Sandra Arnold 7.10.24. 04/21/2024 12:48 EDT [facility] BAL STRUCTURE OF UPPER LOBE OF LEFT LUNG / Unknown 04/16/2024 13:42 EDT 04/16/2024 14:08 EDT Narrative [facility] - 04/21/2024 12:48 EDT Bacteria present. Lining cells present. Felicia DELEON GEN L AB UNIT COLLECT ORDERABLES Performing Organization Address [facility] Co de Phone Number [facility] [address] [place] [address] * (ABNORMAL) BACTERIAL CULTURE/SMEAR, RESPIRATORY (04/16/2024 13:42 [...] 13:42 EDT 04/16/2024 14:08 EDT Felicia Taveras [facility] MICRO BIOLOGY - GENERAL ORDERABLES Performing Organization Address [facility]/ZIP Co de Phone Number [facility] [address] [place] [address] * FUNGUS CULTURE (04/16/2024 13:42 EDT) Organism ID Yeast isolated at 1st reading VITEK SUSCEPTIBILITY 05/14/2024 11:07 EDT [facility] Organism ID Yeast Not Cryptococcus or Dimorphic Fungi VITEK SUSCEPTIBILITY 05/14/2024 11:07 EDT [facility] BAL STRUCTURE OF UPPER LOBE OF LEFT LUNG / Unknown 04/16/2024 13:42 EDT 04/16/2024 14:08 EDT Felicia Taveras [facility] MICRO BIOLOGY - GENERAL ORDERABLES Performing Organization Address [facility]/ZIP Co de Phone Number [facility] [address] [place] [address] * (ABNORMAL) BACTERIAL CULTURE/SMEAR, RESPIRATORY (04/16/2024 13:41 EDT) Organism ID Few Methicillin-Sens itive Staphylococcus aureus(A) VITEK SUSCEPTIBILITY 04/20/2024 7:49 EDT [facility] Comment:Few Usual kayce-pharyn geal david Smear Few Neutrophils Present(A) 04/20/2024 7:49 EDT [facility] Smear Few Squamous Epithelial Cells(A) 04/20/2024 7:49 EDT [facility] Smear Few Gram Positive Cocci(A) 04/20/2024 7:49 EDT [facility] Smear Mucus present(A) 04/20/20 7:49 EDT [facility] Smear Respiratory epithelial cells absent(A) 04/20/2024 7:49 EDT [facility] Comment:bronchial wash Wash SPECIMEN FROM [...] GENERAL ORDERABLES [facility] [address] [place] [address] * FUNGUS CULTURE (04/16/2024 13:41 EDT) Organism ID Yeast isolated at 1st reading VITEK SUSCEPTIBILITY 05/14/2024 11:07 EDT [facility] Organism ID Yeast Not Cryptococcus or Dimorphic Fungi VITEK SUSCEPTIBILITY 05/14/2024 11:07 EDT [facility] Wash SPECIMEN FROM LUNG OBTAINED BY BRONCHIAL WASHING PROCEDURE / Unknown 04/16/2024 13:41 EDT 04/16/2024 14:04 EDT Felicia DELEON MICRO BIOLOGY - GENERAL ORDERABLES [facility] [address] [place] [address] * ADULT BRONCHOSCOPY (04/16/2024 11:00 EDT) Anatomical [...] scanned media. Lidocaine 1% administered in a jpwti-vg-jdv-go fashion. ?? Endobronchial findings: There was significant [...] I personally spent 22 minutes in continuous siuq-ep-ebza attendance with the patient during the administration [...] AM By Freddy Taveras Felicia DELEON GI CT OCEDURE ORDERABLES documented in this encounter Visit Diagnoses Diagnosis ILD (interstitial lung disease) ([facility]) Postinflammatory pulmonary fibrosis documented in this [...] 04/16/2024 documented in this encounter Care Teams Canvas Goods Supervisor Relationship Specialty Start Date End Date Farnaz Pineda MD [address] [place] [address] PCP - General 11/18/09 Fela Villegas NP [address] [place] [phone] Building Attendant Cardiovascular Disease 03/12/22 documented as of this encounter
--- OUTSIDE RECORDS SUMMARY | 2024-06-07 19:47 | XMS_ITS | Encounter Summary ---
Author Organization [facility] Address [address] [place] [address] Care Team Providers Care Global Expansion Sales Director Name Role Phone Farnaz Pineda MD Primary Care Provider [phone] Fela Villegas CARPENTER ASSISTANT Unavailable [phone] Encounter Details Date Type Department Care Team (Late st Contact Info) Description 03/15/2022 Orders Only [facility] Cardiothoracic Surgery - [address] [id number] Brook Llanos, PAJenniferC Aortic valve insufficiency, etiology of cardiac valve [...] Info) Description 03/18/2025 14:00 EDT Ancillary Procedure [facility] Cardiology - [place] [address] [place] [address] 03/18/2025 14:40 EDT Office Visit [facility] Cardiology - [address] [place] [address] Fela Villegas NP [address] [place] [phone] documented as of this encounter Visit Diagnoses Diagnosis Aortic valve insufficiency, etiology of cardiac valve disease unspecified- Primary documented in this encounter Care Teams Global Expansion Sales Director Relationship Specialty Start Date End Date Farnaz Pineda MD [address] [place] [address] PCP - General 11/18/09 Fela Villegas NP [address] [place] [address] Corner Bead Operator Cardiovascular Disease 03/12/22 documented as of this encounter
--- OUTSIDE RECORDS SUMMARY | 2024-06-07 19:47 | XMS_ITS | Encounter Summary ---
Author Organization [facility] Address [address] [place] [address] Care Team Providers Care Shop Cooper Name Role Phone Farnaz Pineda MD Primary Care Provider [phone] Fela Villegas SCHOOL LIBRARY MEDIA PROGRAM DIRECTOR Unavailable [phone] Encounter Details Date Type Department Care Team (Late st Contact Info) Description 04/04/2024 15:25 EDT Phlebotomy Only [facility] - Outpatient Phlebotomy Drawing [address] [place] [address] Lab, [facility] Phlebotomy Moderate persistent reactive airway disease without complication; Chronic cough; Abnormal CT of the chest; ILD (interstitial lung disease) ([facility]) Social History Tobacco Use Types Packs/Day Years [...] Info) Description 03/18/2025 14:00 EDT Ancillary Procedure [facility] Card[facility] - [address] [place] [address] 03/18/2025 14:40 EDT Office Visit [facility] [address] [place], [place] [phone] Fela Villegas NP [address] [facility] [address] [place] [address] documented as of this encounter Procedures Procedure Name Priority Date/Time Associated Diagnosis Comments SSA/SSB PANEL Routine 04/04/2024 15:[address] of the chest ILD (interstitial lung disease) ([facility]) CCP ANTIBODIES Routine 04/04/2024 15:[address] of the chest ILD (interstitial lung disease) ([facility]) MASTER BARBER ANTIBODY, IGG Routine 04/04/2024 15: [address] of the chest ILD (interstitial lung disease) ([facility]) SCL 70 ANTIBODY, IGG, SERUM Routine 04/04/2024 15:[address] of the chest ILD (interstitial lung disease) ([facility]) DOUBLE STRANDED DNA ANTIBODY, IGG Routine 04/04/2024 15:[address] of the chest ILD (interstitial lung disease) ([facility]) COMPLETE BLOOD COUNT AND DIFFERENTIAL Routine 04/04/2024 15:32 EDT Moderate persistent reactive airway disease without complication Chronic cough Abnormal CT of the chest ILD (interstitial lung disease) ([facility]) ANTI NUCLEAR AB (OPAL), IFA Routine 04/04/2024 15:[address] of the chest ILD (interstitial lung disease) ([facility]) BASIC METABOLIC PANEL (BMP) Routine 04/04/2024 15:32 EDT Moderate persistent reactive airway disease without complication Chronic cough Abnormal CT of the chest ILD (interstitial lung disease) ([facility]) documented in this encounter Results * SSA/SSB PANEL (04/04/2024 15:32 EDT) Ro52 Anitbody, IgG <2.3 <20.0 CU 2023 11:35 EDT [facility] Comment:Results were obtaine d with the [employer] Flash Ro52 chemiluminescent immunoassay. Values obtained with different manufacturers' assay methods must not be used interchangeably. Ro60 Antibody, IgG <7.0 <20.0 CU 2023 11:35 EDT [facility] Comment:Results were obtaine d with the [employer] Flash Ro60 chemiluminescent immunoassay. Values obtained with different manufacturers' assay methods must not be used interchangeably. SSB Antibody, IgG <3.3 <20.0 CU 024 11:35 EDT [facility] Comment:Results were obtaine d with the [employer] Flash SS-B chemiluminescent immunoassay. Values obtained with different manufacturers' assay methods must not be used interchangeably. Blood VENOUS BLOOD / Unknown Venipuncture / Unknown 04/04/2024 15:32 EDT 04/04/2024 16:26 EDT Felicia Taveras [facility] IMMUN OLOGY AND SEROLOGY ORDERABLES [facility] [address] [place] [address] * SCL 70 ANTIBODY, IGG, SERUM (04/04/2024 15:32 EDT) Scl 70 Ab, IgG, S <0.2 <1.0 (Negative ) U 04/05/2024 17:04 EDT [facility] Comment: Test Performed by: [facility] [address] [place] [address] Cutter Tender: Cherrie Fernandez Ph.D.; CLIA# [id number] Blood VENOUS BLOOD / Unknown Venipuncture / Unknown 04/04/2024 15:32 EDT 04/04/2024 16:30 EDT Felicia Taveras [facility] IMMUN OLOGY AND SEROLOGY ORDERABLES Performing Organization Address City/[facility]/ZIP Co de Phone Number [facility] [address] [place] [address] * MASTER BARBER ANTIBODY, IGG (04/04/2024 15:32 EDT) MASTER BARBER Antibody, IgG <6.0 <20.0 CU 024 11:35 EDT [facility] Comment:Results were obtaine d with the [employer] Flash MASTER BARBER chemilumenscent immunoassay. Values obtained with different manufacturers' assay methods may not be used interchangeably. Blood VENOUS BLOOD / Unknown Venipuncture / Unknown 04/04/2024 15:32 EDT 04/04/2024 16:26 EDT Felicia Taveras [facility] IMMUN OLOGY AND SEROLOGY ORDERABLES [facility] [address] [place] [address] * CCP ANTIBODIES (04/04/2024 15:32 EDT) [facility] CCP Antibodies <2.5 <5.0 U/mL 04/05/2024 8:07 EDT [facility] Blood VENOUS BLOOD / Unknown Venipuncture / Unknown 04/04/2024 15:32 EDT 04/04/2024 16:26 EDT Felicia Taveras [facility] IMMUN OLOGY AND SEROLOGY ORDERABLES Performing Organization Address [facility] Co de Phone Number [facility] [address] [place] [address] * ANTI NUCLEAR AB (OPAL), IFA (04/04/2024 15:32 EDT) [facility] OPAL Interpretation Negative Negative 2023 14:28 EDT [facility] Comment:No titer performed, OPAL Screen is negative. Blood VENOUS BLOOD / Unknown Venipuncture / Unknown 04/04/2024 15:32 EDT 04/04/2024 16:26 EDT Narrative [facility] - 04/05/2024 14:28 EDT Results were obtained with the [employer] NOVA Lite HEp-2 OPAL Kit by indirect immunofluorescence. Felicia GOLDEN IMMUN OLOGY AND SEROLOGY ORDERABLES Performing Organization Address [facility]/ZIP Co de Phone Number [facility] [address] [place] [phone] * DOUBLE STRANDED DNA ANTIBODY, IGG (04/04/2024 15:32 EDT) [facility] dsDNA Ab, IgG <22.0 <27.0 IU/mL 04/05/2024 11:35 EDT [facility] Comment: Negative: <27.0 IU/mL Indeterminate: 27.0 - 35.0 IU/mL Positive: >35.0 IU/mL Results were obtained with [employer] Flash dsDNA chemiluminescent immunoassay. Values obtained with different manufacturers' assay methods may not be used interchangeably. Blood VENOUS BLOOD / Unknown Venipuncture / Unknown 04/04/2024 15:32 EDT 04/04/2024 16:26 EDT Felicia DELEON IMMUN OLOGY AND SEROLOGY ORDERABLES [facility] [address] [place] [address] * (ABNORMAL) BASIC METABOLIC PANEL (BMP) (04/04/2024 15:32 EDT) Sodium 138 136 - 145 mmol/L 04/04/2024 17:01 [facility] Potassium 4.7 3.5 - [...] DELEON CHEMI STRY & BLOOD GAS ORDERABLES [facility] [address] [place] [address] * (ABNORMAL) COMPLETE BLOOD COUNT AND DIFFERENTIAL (04/04/2024 15:32 EDT) WBC 8.87 4.00 - 10.40 K/cmm 04/04/2024 16:26 [facility] RBC 4.25(L) 4.36 - 5.78 M/cmm 04/04/2024 16:26 [facility] Hemoglobin 13.2(L) 13.8 - 17.3 g/dL 04/04/2024 16:26 [facility] HCT 42.2 39.5 - 50.2 % 04/04/2024 16:26 [facility] MCV 99(H) 81 - [...] 0.08 0.01 - 0.11 K/cmm 04/04/2024 16:26 [facility] Absolute Immature Grans 0.03 0.00 - 0.06 K/cmm 04/04/2024 16:26 [facility] Type of Differential: Auto 04/04/2024 16:26 [facility] Blood VENOUS BLOOD / Unknown Venipuncture / Unknown 04/04/2024 15:32 EDT 04/04/2024 16:22 EDT Felicia NERI GES & DNA PROBE ORDERABLES [facility] [address] [place] [address] documented in this encounter Visit Diagnoses Diagnosis Moderate persistent reactive airway disease without complication Chronic cough Cough Abnormal CT of the chest Nonspecific (abnormal) findings on radiological and other examination of other intrathoracic organs ILD (interstitial lung disease) ([facility]) Postinflammatory pulmonary fibrosis documented in this encounter Care Teams Shop Cooper Relationship Specialty Start Date End Date Farnaz Pineda MD [address] [place] [address] PCP - General 11/18/09 Fela Villegas NP [address] [place] [phone] Property Caretaker Cardiovascular Disease 03/12/22 documented as of this encounter
--- OUTSIDE RECORDS SUMMARY | 2024-06-07 19:47 | XMS_ITS | Encounter Summary ---
Author Organization [facility] Address [address] [place] [address] Care Team Providers Care Air Valve Repairer Name Role Phone Farnaz Pineda MD Primary Care Provider [phone] Fela Villegas DIE CLEANER Unavailable [phone] Reason for Visit * Reason Onset Date Comments GI Bleeding 03/22/2023 Encounter Details Date Type Department Care Team (Late st Contact Info) Description 03/22/2023 Telephone [facility] MED [address] [place], [place] [phone] Shonda Salter MD [address] [address] GI Bleeding Social History Tobacco [...] EDT Hospitalist Patient Transfer Request Requesting Facility: [facility] Requesting Provider: Dr. Urbano Date: 03/22/23 [...] Procedure [facility] Cardiology - [address] [place] [phone] 03/18/2025 14:40 EDT Office Visit [facility] [place] [address] Fela Villegas NP [address] [facility] [address] [place] [phone] documented as of this encounter Visit Diagnoses Not on filedocumented in this encounter Care Teams Air Valve Repairer Relationship Specialty Start Date End Date Farnaz Pineda MD [address] [place] [address] PCP - General 11/18/09 Fela Villegas NP [address] [phone] Rn Transition Cardiovascular Disease 03/12/22 documented as of this encounter
--- OUTSIDE RECORDS SUMMARY | 2024-06-07 19:47 | XMS_ITS | Encounter Summary ---
Author Organization [facility] [place] [address] Care Team Providers Care Golf Range Attendant Name Role Phone Farnaz Pineda MD Primary Care Provider [phone] Encounter Details Date Type Department Care Team (Late st Contact Info) Description 10/31/2012 External [place] [phone] Provider, Scanning Social History Tobacco Use Types [...] on filedocumented in this encounter Care Teams Golf Range Attendant Relationship Specialty Start Date End Date Farnaz Pineda MD [address] [place] [address] PCP - General 10/26/12 documented as of this encounter
--- OUTSIDE RECORDS SUMMARY | 2024-06-07 19:47 | XMS_ITS | Encounter Summary ---
Author Organization [facility] Address [address] [place] [address] Care Team Providers Care Reimbursement Coordinator Name Role Phone Farnaz Pineda MD Primary Care Provider [phone] Fela Villegas SPRING INSPECTOR Unavailable [phone] Encounter Details Date Type Department Care Team (Late st Contact Info) Description 03/15/2022 Orders Only [facility] Radiology - [facility] [address] [place], [place] [phone] Patrick Prado MD [address] [facility], Level [address] [place] [address] Social History Tobacco Use Types [...] Info) Description 03/18/2025 14:00 EDT Ancillary Procedure [facility] Cardiology - [facility] [place] [address] [place] [address] 03/18/2025 14:40 EDT Office Visit [facility] Cardiology - [facility] [place] [address] [place] [address] Fela Villegas, PANKAJ [address] [place] [phone] documented as of this encounter Visit Diagnoses Not on filedocumented in this encounter Care Teams Reimbursement Coordinator Relationship Specialty Start Date End Date Farnaz Pineda MD [address] [place] [address] PCP - General 11/18/09 Fela Villegas, PANKAJ [address] [place] [phone] Hearing Dog Trainer Cardiovascular Disease 03/12/22 documented as of this encounter
--- OUTSIDE RECORDS SUMMARY | 2024-06-07 19:47 | XMS_ITS | Encounter Summary ---
Author Organization [facility] Address [address] [place] [address] Care Team Providers Care Psych Specialist Name Role Phone Farnaz Pineda MD Primary Care Provider [phone] Fela Villegas ORDER CHECKER PACKER PROCESSER Unavailable [phone] Reason for Visit * Reason Comments New Patient Visit Uses rescue inhaler BID prior to the Breztri. * Referral (Routine) - Authorization Not Required Specialty Diagnoses / Procedures Referred By [facility] Referred To Contact Pulmonary Disease Diagnoses Abnormal findings on diagnostic imaging of other specified body structures Chronic cough Janel Curtis MD [address] [place] [address] [address] [place] [address] [facility] [address] [place] [id number] Referral ID Status Reason Start Date Expiration Date Visits Requested Visits Authorized [id number] Authorization Not Required 1 1 Encounter Details Date Type Department Care Team (Late st Contact Info) Description 04/04/2024 14:00 EDT Office Visit [facility] Pulmonology [address] [place] [phone] Felicia Taveras MBBS 111 [facility], [facility] 5 [place] [id number] Moderate persistent reactive airway disease without complication (Primary Dx); Chronic cough; Abnormal CT of the chest; ILD (interstitial lung disease) ([facility]) Social History Tobacco Use Types Packs/Day Years [...] Rh factor, anti- CCP , SSA/SSB antibodies/ scl-70,DELINQUENT ACCOUNT CLERK ab documented in this encounter Progress Notes * Felicia Taveras MBBS - 04/04/2024 1400 EDT Images from the original note were not included. Pulmonary Clinic Note PCP: Farnaz Pineda This note may be in part documented using AllTrails dictation software. Please forgive any errors, omissions [...] the chest 4. ILD (interstitial lung disease) ([facility]) Instructions to Patient Patient Instructions Continue breztri [...] Rh factor, anti- CCP , SSA/SSB antibodies/ scl-70,DELINQUENT ACCOUNT CLERK ab Return in about 6 months (around [...] is not on file. 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 Pets: dog, cat Home Type/Mold/Flooding: no mold Heating/Cooling System: wood pellet stove Hobbies: none PFTs Date 11/29/2023 FVC 2.58 LLN 3.1 FEV1 1.88/2.15 Z-Score FEV1/FVC 73 LLN ERV TGV (FRC) TLC 4.71/5.05 RV 2.1/ RV/TLC DLCO 16.71/17.56 KCO-118% NEGATIVE METHACHOLINE CHALLENGE - NOV 2023-[facility] Chest XR - CT Chest/PET [...] the consult PANCHO Villanueva Pulmonary Attending [facility] documented in this encounter Plan of Treatment Upcoming Encounters Date Type Department Care Team (Late st Contact Info) Description 03/18/2025 14:00 EDT Ancillary Procedure [facility] Cardiology - [facility] [address] [place] [address] 03/18/2025 14:40 EDT Office Visit [facility] Cardiology - [facility] [address] [place] [address] Fela Villegas NP 62 [facility] [address] [place] [address] documented as of this encounter Procedures Procedure Name Priority Date/Time Associated Diagnosis Comments RHEUMATOID SCREEN/TITRE Routine 04/04/2024 15:[address] of the chest ILD (interstitial lung disease) ([facility]) documented in this encounter Results * RHEUMATOID SCREEN/TITRE (04/04/2024 15:32 EDT) Rheumatoid Factor <8.6 <12.0 IU/mL 04/04/2024 21:53 EDT [facility] Blood VENOUS BLOOD / Unknown Venipuncture / Unknown 04/04/2024 15:32 EDT 04/04/2024 16:26 EDT Felicia DELEON CHEMI STRY & BLOOD GAS ORDERABLES [facility] [address] [place] [address] * SSA/SSB PANEL (04/04/2024 15:32 EDT) Ro52 Anitbody, IgG <2.3 <20.0 CU 2023 11:35 EDT [facility] Comment:Results were obtaine d with the SeisquareA Flash Ro52 chemiluminescent immunoassay. Values obtained with different manufacturers' assay methods must not be used interchangeably. Ro60 Antibody, IgG <7.0 <20.0 CU 2023 11:35 EDT [facility] Comment:Results were obtaine d with the SeisquareA Flash Ro60 chemiluminescent immunoassay. Values obtained with different manufacturers' assay methods must not be used interchangeably. SSB Antibody, IgG <3.3 <20.0 CU 024 11:35 EDT [facility] Comment:Results were obtaine d with the SeisquareA Flash SS-B chemiluminescent immunoassay. Values obtained with different manufacturers' assay methods must not be used interchangeably. Blood VENOUS BLOOD / Unknown Venipuncture / Unknown 04/04/2024 15:32 EDT 04/04/2024 16:[address] [facility] IMMUN OLOGY AND SEROLOGY ORDERABLES Performing Organization Address City/[facility]/ZIP Co de Phone Number [facility] [address] [place] [phone] * SCL 70 ANTIBODY, IGG, SERUM (04/04/2024 15:32 EDT) Scl 70 Ab, IgG, S <0.2 <1.0 (Negative ) U 04/05/2024 17:04 EDT [facility] Comment: Test Performed by: [facility] - [address] [address] [employer] Team Member: Cherrie Fernandez Ph.D.; CLIA# [id number] Blood VENOUS BLOOD / Unknown Venipuncture / Unknown 04/04/2024 15:32 EDT 04/04/2024 16:[address] [facility] IMMUN OLOGY AND SEROLOGY ORDERABLES [facility] [address] [place] [address] * DELINQUENT ACCOUNT CLERK ANTIBODY, IGG (04/04/2024 15:32 EDT) DELINQUENT ACCOUNT CLERK Antibody, IgG <6.0 <20.0 CU 024 11:35 EDT [facility] Comment:Results were obtaine d with the [employer] Pallet QUANTA Flash DELINQUENT ACCOUNT CLERK chemilumenscent immunoassay. Values obtained with different manufacturers' assay methods may not be used interchangeably. Blood VENOUS BLOOD / Unknown Venipuncture / Unknown 04/04/2024 15:32 EDT 04/04/2024 16:[address] [facility] IMMUN OLOGY AND SEROLOGY ORDERABLES Performing Organization Address [facility] de Phone Number [facility] [address] [place] [address] * CCP ANTIBODIES (04/04/2024 15:32 EDT) Pathologist [facility] CCP Antibodies <2.5 <5.0 U/mL 04/05/2024 8:07 EDT [facility] Blood VENOUS BLOOD / Unknown Venipuncture / Unknown 04/04/2024 15:32 EDT 04/04/2024 16:[address] [facility] IMMUN OLOGY AND SEROLOGY ORDERABLES Performing Organization Address [facility] de Phone Number [facility] [address] [place] [address] * ANTI NUCLEAR AB (OPAL), IFA (04/04/2024 15:32 EDT) OPAL Interpretation Negative Negative 2023 14:28 EDT [facility] Comment:No titer performed, OPAL Screen is negative. Blood VENOUS BLOOD / Unknown Venipuncture / Unknown 04/04/2024 15:32 EDT 04/04/2024 16:26 EDT Narrative [facility] - 04/05/2024 14:28 EDT Results were obtained with the [employer] Pallet NOVA Lite HEp-2 OPAL Kit by indirect immunofluorescence. Felicia Taveras [facility] IMMUN OLOGY AND SEROLOGY ORDERABLES Performing Organization Address [facility]/ZIP Co de Phone Number [facility] [address] [place], [place] [phone] * DOUBLE STRANDED DNA ANTIBODY, IGG (04/04/2024 15:32 EDT) [facility] dsDNA Ab, IgG <22.0 <27.0 IU/mL 04/05/2024 11:35 EDT [facility] Comment: Negative: <27.0 IU/mL Indeterminate: 27.0 - 35.0 IU/mL Positive: >35.0 IU/mL Results were obtained with SeisquareA Paxera dsDNA chemiluminescent immunoassay. Values obtained with different manufacturers' assay methods may not be used interchangeably. Blood VENOUS BLOOD / Unknown Venipuncture / Unknown 04/04/2024 15:32 EDT 04/04/2024 16:[address] [facility] IMMUN OLOGY AND SEROLOGY ORDERABLES Performing Organization Address [facility] Co de Phone Number [facility] [address] [place], [place] [phone] * (ABNORMAL) BASIC METABOLIC PANEL (BMP) (04/04/2024 15:32 EDT) [facility] Sodium 138 136 - 145 mmol/L 04/04/2024 17:01 [facility] Potassium 4.7 3.5 - 5.0 mmol/L 04/04/2024 17:01 [facility] Chloride 104 96 - 110 mmol/L 04/04/2024 17:01 [facility] CO2 Total 27 22 - 32 mmol/L 04/04/2024 17:01 [facility] Anion Gap 7 5 - 14 mmol/L 04/04/2024 17:01 [facility] Glucose 74 70 - 99 mg/dl 04/04/2024 17:01 [facility] Calcium 9.1 8.5 - 10.5 mg/dL 04/04/2024 17:01 [facility] BUN 22 10 - 26 mg/dL 04/04/2024 17:01 [facility] Creatinine 1.38(H) 0.66 - 1.25 mg/dL 04/04/2024 17:01 [facility] eGFR 54(L) >60 mL/min/1.73 m2 04/04/2024 17:01 [facility] Blood VENOUS BLOOD / Unknown Venipuncture / Unknown 04/04/2024 15:32 EDT 04/04/2024 16:28 EDT Felicia DELEON CHEMI STRY & BLOOD GAS ORDERABLES [facility] [address] [place] [address] * (ABNORMAL) COMPLETE BLOOD COUNT AND DIFFERENTIAL (04/04/2024 15:32 EDT) WBC 8.87 4.00 - 10.40 K/cmm 04/04/2024 16:26 [facility] RBC 4.25(L) 4.36 - 5.78 M/cmm 04/04/2024 16:26 [facility] Hemoglobin 13.2(L) 13.8 - 17.3 g/dL 04/04/2024 16:26 [facility] HCT 42.2 39.5 - 50.2 % 04/04/2024 16:26 [facility] MCV 99(H) 81 - 95 fL 04/04/2024 16:26 [facility] MCH 31.1 27.6 - 33.0 pg 04/04/2024 16:26 [facility] MCHC 31.3(L) 32.8 - 36.4 g/dL 04/04/2024 16:26 [facility] RDW-CV 15.6(H) <14.2 % 04/04/2024 16:26 [facility] RDW-SD 56.7(H) <46.0 fl 04/04/2024 16:26 [facility] PLT 205 141 - 377 K/cmm 04/04/2024 16: [facility] MPV 10.0 9.5 - 12.7 fL 04/04/2024 16:26 [facility] % Neutrophils 71.5 % 04/04/2024 16:26 [facility] % Lymphocytes 13.4 % 04/04/2024 16:26 [facility] % Monocytes 7.2 % 04/04/2024 16:26 [facility] % Eosinophils 6.7 % 04/04/2024 16:26 [facility] % Basophils 0.9 % 04/04/2024 16:26 [facility] % Immature Grans 0.3 <0.9 % 04/04/20 16:26 [facility] Absolute Neutrophils 6.34 2.20 - 8.85 K/cmm 04/04/2024 16:26 [facility] Absolute Lymphocytes 1.19 1.09 - 3.30 K/cmm 04/04/2024 16:26 [facility] Absolute Monocytes 0.64 0.10 - 0.80 K/cmm 04/04/2024 16:26 [facility] Absolute Eosinophils 0.59 0.03 - 0.61 K/cmm 04/04/2024 16:26 [facility] ABS Basophils 0.08 0.01 - 0.11 K/cmm 04/04/2024 16:26 [facility] Absolute Immature Grans 0.03 0.00 - 0.06 K/cmm 04/04/2024 16:26 [facility] Type of Differential: Auto 04/04/2024 16:26 [facility] Blood VENOUS BLOOD / Unknown Venipuncture / Unknown 04/04/2024 15:32 EDT 04/04/2024 16:22 EDT Felicia NERI GES & DNA PROBE ORDERABLES [facility] [address] [place] [address] documented in this encounter Visit Diagnoses Diagnosis Moderate persistent reactive airway disease without complication- Primary Chronic cough Cough Abnormal CT of the chest Nonspecific (abnormal) findings on radiological and other examination of other intrathoracic organs ILD (interstitial lung disease) ([facility] Postinflammatory pulmonary fibrosis documented in this encounter Care Teams Psych Specialist Relationship Specialty Start Date End Date Farnaz Pineda MD [address] [place] [phone] PCP - General 11/18/09 Fela Villegas NP [address] [place] [phone] Well Shooter Cardiovascular Disease 03/12/22 documented as of this encounter
--- OUTSIDE RECORDS SUMMARY | 2024-06-07 19:47 | XMS_ITS | Encounter Summary ---
Author Organization [facility] Address [address] [place] [address] Care Team Providers Care Tread Tuber Machine Operator Name Role Phone Farnaz Pineda MD Primary Care Provider [phone] Fela Villegas PAYROLL ADMINISTRATOR Unavailable [phone] Reason for Visit * Reason Onset Date Comments Coordination Of Care 04/07/2022 Encounter Details Date Type Department Care Team (Late st Contact Info) Description 04/07/2022 Telephone [facility] Cardiology - [address] [address] Fela Villegas NP 62 [facility] [address] [place] [phone] Coordination Of Care Social History Tobacco [...] is going to have echo completed at [facility].No further questions, no barriers to [...] 03/18/2025 14:00 EDT Ancillary Procedure [facility] Cardiology - [address] [address] 03/18/2025 14:40 EDT Office Visit [facility] Cardiology - [address] [place] [address] Fela Villegas NP [address] [place] [phone] documented as of this encounter Visit Diagnoses Not on filedocumented in this encounter Care Teams Tread Tuber Machine Operator Relationship Specialty Start Date End Date Farnaz Pineda MD [address] [place] [address] PCP - General 11/18/09 Fela Villegas NP [address] [place] [phone] Coding Consultant Cardiovascular Disease 03/12/22 documented as of this encounter
--- OUTSIDE RECORDS SUMMARY | 2024-06-07 19:47 | XMS_ITS | Encounter Summary ---
Author Organization [facility] Address [address] [place] [address] Care Team Providers Care Cellular Phone Repairer Name Role Phone Farnaz Pineda MD Primary Care Provider [phone] Fela Villegas SUPERVISOR FURNACE ROOM Unavailable [phone] Encounter Details Date Type Department Care Team (Late st Contact Info) Description 03/15/2024 E-Consult [facility] Pulmonology & Critical Care - [facility] [address] [place], [place] [phone] Diann Sol MD [address] [place] [address], [address] [place] [address] Social History Tobacco Use Types [...] been referred for an in[facility]person consultation at [facility]. That is an appropriate plan. I have reached out to [facility] to follow up about scheduling for the patient. Patient consent for this eConsult was obtained by the referring provider. Please alert me if you have further questions. documented in this encounter Plan of Treatment Upcoming Encounters Date Type Department Care Team (Late st Contact Info) Description 03/18/2025 14:00 EDT Ancillary Procedure [facility] Cardiology - [address] [place], [place] [phone] 03/18/2025 14:40 EDT Office Visit [facility] Cardiology - [address] [place] [address] Fela Villegas NP [address] [phone] documented as of this encounter Visit Diagnoses Not on filedocumented in this encounter Care Teams Cellular Phone Repairer Relationship Specialty Start Date End Date Farnaz Pineda MD [address] [place] [address] PCP - General 11/18/09 Fela Villegas NP [address] [phone] Metal Fence Erector Cardiovascular Disease 03/12/22 documented as of this encounter
--- OUTSIDE RECORDS SUMMARY | 2024-06-07 19:47 | XMS_ITS | Referral Summary ---
Author Organization [facility] Address [address] [place] [address] Care Team Providers Care Licensed Mental Health Counselor Name Role Phone Farnaz Pineda MD Primary Care Provider [phone] Fela Villegas SAIL LAY OUT WORKER Unavailable [phone] Encounters Date Type Department Care Team Description 06/06/2024 Lab Requisition [facility] Pathology & Laboratory Medicine - [address] [address] Outr Resulting Lab, Provider 06/04/2024 Telephone [facility] Pulmonology [address] [place] [phone] Felicia Taveras MBBS New/Evolving Symptoms 04/19/2024 Orders Only [facility] Operating Room [address] [place] [address] [phone] Felicia Taveras MBBS HO (acute kidney injury) ([facility]) (Primary Dx) 04/17/2024 Telephone [facility] Pulmonology [address] [place] [address] Felicia Taveras MBBS DME (DME-NEBULIZER ORDER-[facility]) 04/16/2024 Orders Only [facility] Pulmonology [address] [place] [address] Felicia Taveras MBBS Bronchiectasis without complication (HCC-CMS) (Primary Dx) 04/16/2024 9:35 EDT - 04/16/2024 9:37 EDT Hospital Encounter [facility] Operating Room [address] [place], [place] [address] Felicia Taveras MBBS ILD (interstitial lung disease) ([facility]) Discharge Disposition: Home or Self Care 04/05/2024 Prep for Procedure [facility] Pulmonology [address] [place] [address] [phone] Felicia Taveras MBBS ILD (interstitial lung disease) ([facility]) (Primary Dx) 04/04/2024 15:25 EDT Phlebotomy Only [facility] - Outpatient Phlebotomy Drawing [address] [place] [address] Lab, [facility] Op Phlebotomy Moderate persistent reactive airway disease without complication; Chronic cough; Abnormal CT of the chest; ILD (interstitial lung disease) ([facility]) 04/04/2024 14:00 EDT Office Visit [facility] Pulmonology [address], [place] [phone] Felicia Taveras MBBS Moderate persistent reactive airway disease without complication (Primary Dx); Chronic cough; Abnormal CT of the chest; ILD (interstitial lung disease) ([facility]) 03/15/2024 E-Consult [facility] Pulmonology & Critical Care - [address] [id number] Diann Sol MD 03/15/2024 15:20 EDT Office Visit [facility] Cardiology - [place] [address] [place] [address] Fela Villegas NP Paroxysmal atrial fibrillation ([facility]) (Primary Dx); Encounter for follow-up for [...] 03/18/2025 14:00 EDT Ancillary Procedure [facility] Cardiology [address] [place], [place] [phone] 03/18/2025 14:40 EDT Office Visit [facility] Cardiology [facility] [place] [address] Flea Villegas NP [address] [facility] [address] [place] [address] Medical Devices Implanted Type Area Ruffling Hemmer Automatic Device Identifier Shelf Expiration Date Model / Serial / Lot Aortic Valve Replacement, Twin Brooks Filter Procedures Procedure Name Priority Date/Time Associated Diagnosis Comments IMMUNOGLOBULINS Routine 06/06/2024 11:50 EDT ECG REPORT - SCANNED 04/17/2024 10:45 EDT MISCELLANEOUS TEST, JOHNSON Routine 04/16/2024 13:46 EDT EXPANDED RESPIRATORY VIRAL PANEL, PCR (DOES NOT INCLUDE INFLUENZA OR RSV) Routine 04/16/2024 13:45 EDT NON SPECIAL DELIVERY CARRIER/FNA CYTOLOGY Routine 04/16/2024 13:42 EDT DIFFERENTIAL, LAVAGE [...] 11 :00 EDT ILD (interstitial lung disease) ([facility]) SSA/SSB PANEL Routine 04/04/2024 15:[address] of the chest ILD (interstitial lung disease) ([facility]) SCL 70 ANTIBODY, IGG, SERUM Routine 04/04/2024 15:[address] of the chest ILD (interstitial lung disease) ([facility]) SATELLITE INSTRUCTION FACILITATOR ANTIBODY, IGG Routine 04/04/2024 15: [address] of the chest ILD (interstitial lung disease) ([facility]) CCP ANTIBODIES Routine 04/04/2024 15:[address] of the chest ILD (interstitial lung disease) (HCC-CMS) ANTI NUCLEAR AB (OPAL), IFA Routine 04/04/2024 15:[address] of the chest ILD (interstitial lung disease) ([facility]) DOUBLE STRANDED DNA ANTIBODY, IGG Routine 04/04/2024 15:[address] of the chest ILD (interstitial lung disease) (HCC-CMS) BASIC METABOLIC PANEL (BMP) Routine 04/04/2024 15:32 EDT Moderate persistent reactive airway disease without complication Chronic cough Abnormal CT of the chest ILD (interstitial lung disease) ([facility]) COMPLETE BLOOD COUNT AND DIFFERENTIAL Routine 04/04/2024 15:32 EDT Moderate persistent reactive airway disease without complication Chronic cough Abnormal CT of the chest ILD (interstitial lung disease) ([facility]) RHEUMATOID SCREEN/TITRE Routine 04/04/20 24 15:[address] of the chest ILD (interstitial lung disease) ([facility]) ECG REPORT - SCANNED 03/18/2024 17:26 EDT EKG 12-LEAD Routine 03/15/2024 15:35 EDT Paroxysmal atrial fibrillation ([facility]) from Last 3 Months Results * IMMUNOGLOBULINS (06/06/2024 11:50 EDT) IgG 803 610 - 1,616 mg/dL 06/07/2024 9:52 EDT [facility] IgA 377 85 - 499 mg/dL 06/07/2024 9:52 EDT [facility] IgM 65 35 - 242 mg/dL 06/07/2024 9:52 EDT [facility] Blood VENOUS BLOOD / Unknown 06/06/2024 11:50 EDT 06/06/2024 22:01 EDT Provider Outr Resulting Lab CHEMISTRY & BLOOD GAS ORDERABLES [facility] [address] [place] [address] * ECG REPORT - SCANNED (04/17/2024 10:45 EDT) 04/17/2024 10:4 5 EDT Scan 2 Fruit Thinner PROCEDURE/MINOR MARCO A GICAL ORDERABLES * MISCELLANEOUS TEST, CLINCHCO (04/16/2024 13:46 EDT) Miscellaneous Test, [place] SEE NOTE 04/17/2024 23:20 EDT [facility] Comment: Test ?Result ? Flag ??Unit ?? RefValue Aspergillus Ag, BAL ? <0.500 ? index ??<0.5 ? ADDITIONAL INFORMATION ?This is a qualitative test and the resulted index value is ?not indicative of disease severity. ??Serial testing is ?recommended for patients at high risk for invasive ?aspergillosis. ?This assay was performed using the FDA-cleared ShowKit-Sprinkle ?Platelia Aspergillus Galactomannan EIA. ?Test Performed by: ?[facility] ?[address] [place] [address] ?Furnace Repair Mechanic: Cherrie Fernandez Ph.D.; CLIA# [id number] Fluid STRUCTURE OF UPPER LOBE OF LEFT LUNG / Unknown 04/16/2024 13:46 EDT 04/16/2024 14:05 EDT Felicia GOLDENBS CHEMI STRY & BLOOD GAS ORDERABLES [facility] [address] [place] [address] * EXPANDED RESPIRATORY VIRAL PANEL, PCR (DOES NOT INCLUDE INFLUENZA OR RSV) (04/16/2024 13:45 EDT) Paraflu Type 1 Rslt (PF1RES) Negative Negative 04/16/2024 23:50 EDT [facility] Paraflu Type 2 Rslt (PF2RES) Negative Negative 04/16/2024 23:50 EDT [facility] Paraflu Type 3 Rslt (PF3RES) Negative Negative 04/16/2024 23:50 EDT [facility] Paraflu Type 4 Rslt Negative Negative 04/16 23:50 EDT [facility] Rhinovirus RNA Rslt (RVRES) Negative Negative 04/16/2024 23:50 EDT [facility] Metapneumovirus RNA Rslt (HMVRES) Negative Negative 04/16/2024 23:50 EDT [facility] Adenovirus DNA Rslt (ADVRES) Negative Negative 04/16/2024 23:50 EDT [facility] BAL STRUCTURE OF UPPER LOBE OF LEFT LUNG / Unknown 04/16/2024 13:45 EDT 04/16/2024 14:07 EDT Narrative [facility] - 04/16/2024 23:50 EDT This test was developed and its performance characteristics by [facility]. It has not been cleared or [...] Felicia DELEON MICRO BIOLOGY - GENERAL ORDERABLES [facility] [address] [place], [place] [address] * NON SPECIAL DELIVERY CARRIER/FNA CYTOLOGY (04/16/2024 13:42 EDT) Note to Patient The following pathology results have been interpreted by your pathologist and may be available to you before your health provider has had the opportunity to review them. Please allow time for your provider to receive these results and explore management options, if applicable. 04/18/2024 14:57 [facility] Final Diagnosis A. BRONCHOALVEOLAR LAVAGE, LEFT UPPER LOBE, ANTERIOR SEGMENT, CYTOLOGIC EVALUATION: - No malignant cells identified. - Occasional benign bronchial cells and abundant alveolar macrophages present. - Silver stain: Negative for fungal organisms. - Oil Red O stain: Less than 10% lipid-laden macrophages. 04/18/2024 14:57 [facility] Attestation By the signature below, the attending physician certifies that they have personally conducted a gross and/or microscopic examination of the described specimens and rendered or confirmed the above diagnosis. 04/18/2024 14:57 [facility] at 1457 Clinical History 04/18/2024 14:57 [facility] Gross Description A. 25 mL of cloudy, pale pink fluid with red fragments were received and processed by selective cellular enhancement technique. 04/18/2024 14:57 [facility] Performing Lab [facility] 07/2024 14:57 [facility] Scanned Images 04/18/2024 14:57 [facility] BAL STRUCTURE OF UPPER LOBE OF LEFT LUNG / Unknown 04/16/2024 13:42 EDT 04/17/2024 10:56 EDT Felicia DELEON PATHO LOGY ORDERABLES Performing Organization Address [facility]/ZIP Co de Phone Number [facility] [address] [place] [address] * DIFFERENTIAL, LAVAGE FLUID (04/16/2024 13:42 EDT) Neutrophils Fluid Relative 19 % 04/21/2024 12:48 EDT [facility] Lymphocytes Fluid Relative 24 % 04/21/2024 12:48 EDT [facility] Cataño/Macrophage 57 % 12:48 EDT [facility] Path Review Fluid, other Reviewed by Dr Sandra Arnold 7.10.24. 04/21/2024 12:48 EDT [facility] BAL STRUCTURE OF UPPER LOBE OF LEFT LUNG / Unknown 04/16/2024 13:42 EDT 04/16/2024 14:08 EDT Narrative [facility] - 04/21/2024 12:48 EDT Bacteria present. Lining cells present. Felicia DELEON GEN L AB UNIT COLLECT ORDERABLES Performing Organization Address [facility] Co de Phone Number [facility] [address] [place] [address] * (ABNORMAL) BACTERIAL CULTURE/SMEAR, RESPIRATORY (04/16/2024 13:42 EDT) Only the most recent of2 resultswithin the time period is included. Organism ID 10, 000 to 100,000 CFU/ml VITEK SUSCEPTIBILITY 04/18/2024 11:07 EDT [facility] Comment: Usual kayce-pharyngeal david Smear Neutrophils Present(A) 04/18/2024 11:07 EDT [facility] Comment:Corrected result: Pr eviously reported as Few Neutrophils Present on 04/16/2024 at 1558 EDT. Smear Squamous Epithelial Cells(A) 04/18/2024 11:07 EDT [facility] Comment:Corrected result: Pr eviously reported as Few Squamous Epithelial Cells on 04/16/2024 at 1558 EDT. Smear Gram Positive Cocci(A) 04/18/2024 11:07 EDT [facility] Comment:Corrected result: Pr eviously reported as Few Gram Positive Cocci on 04/16/2024 at 1558 EDT. Smear Respiratory epithelial cells absent(A) 04/18/2024 11:07 EDT [facility] Smear Mucus present(A) 04/18/2024 11:07 EDT [facility] Comment: Cytospin gram stain interpreted. KEELEY anterior segment - BAL BAL STRUCTURE OF UPPER LOBE OF LEFT LUNG / Unknown 04/16/2024 13:42 EDT 04/16/2024 14:08 EDT Felicia DELEON MICRO BIOLOGY - GENERAL ORDERABLES Performing Organization Address City/[facility] Co de Phone Number [facility] [address] [place] [address] * FUNGUS CULTURE (04/16/2024 13:42 EDT) Only the most recent of2 resultswithin the time period is included. Organism ID Yeast isolated at 1st reading VITEK SUSCEPTIBILITY 05/14/2024 11:07 EDT [facility] Organism ID Yeast Not Cryptococcus or Dimorphic Fungi VITEK SUSCEPTIBILITY 05/14/2024 11:07 EDT [facility] BAL STRUCTURE OF UPPER LOBE OF LEFT LUNG / Unknown 04/16/2024 13:42 EDT 04/16/2024 14:08 EDT Felicia DELEON MICRO BIOLOGY - GENERAL ORDERABLES Performing Organization Address City/[facility] Co de Phone Number [facility] [address] [place] [address] * ADULT BRONCHOSCOPY (04/16/2024 11:00 EDT) Anatomical [...] scanned media. Lidocaine 1% administered in a lbapp-rk-ytk-go fashion. ?? Endobronchial findings: There was significant [...] I personally spent 22 minutes in continuous anxd-ds-myhq attendance with the patient during the administration [...] Taveras Felicia DELEON GI MA OCEDURE ORDERABLES * RHEUMATOID SCREEN/TITRE (04/04/2024 15:32 EDT) Pathologist [facility] Rheumatoid Factor <8.6 <12.0 IU/mL 04/04/2024 21:53 EDT [facility] Blood VENOUS BLOOD / Unknown Venipuncture / Unknown 04/04/2024 15:32 EDT 04/04/2024 16:26 EDT Felicia DELEON CHEMI STRY & BLOOD GAS ORDERABLES [facility] [address] [place] [address] * SSA/SSB PANEL (04/04/2024 15:32 EDT) Pathologist [facility] Ro52 Anitbody, IgG <2.3 <20.0 CU 2023 11:35 EDT [facility] Comment:Results were obtaine d with the Codesign CooperativeA Flash Ro52 chemiluminescent immunoassay. Values obtained with different manufacturers' assay methods must not be used interchangeably. Ro60 Antibody, IgG <7.0 <20.0 CU 2023 11:35 EDT [facility] Comment:Results were obtaine d with the Codesign CooperativeA Flash Ro60 chemiluminescent immunoassay. Values obtained with different manufacturers' assay methods must not be used interchangeably. SSB Antibody, IgG <3.3 <20.0 CU 024 11:35 EDT [facility] Comment:Results were obtaine d with the MeetingSprout Flash SS-B chemiluminescent immunoassay. Values obtained with different manufacturers' assay methods must not be used interchangeably. Blood VENOUS BLOOD / Unknown Venipuncture / Unknown 04/04/2024 15:32 EDT 04/04/2024 16:26 EDT Felicia Taveras [facility] IMMUN OLOGY AND SEROLOGY ORDERABLES Performing Organization Address [facility] Co de Phone Number [facility] [address] [place] [address] * CCP ANTIBODIES (04/04/2024 15:32 EDT) CCP Antibodies <2.5 <5.0 U/mL 04/05/2024 8:07 EDT [facility] Blood VENOUS BLOOD / Unknown Venipuncture / Unknown 04/04/2024 15:32 EDT 04/04/2024 16:26 EDT [facility] IMMUN OLOGY AND SEROLOGY ORDERABLES Performing Organization Address City/[facility]/ZIP Co de Phone Number [facility] [address] [place] [address] * SATELLITE INSTRUCTION FACILITATOR ANTIBODY, IGG (04/04/2024 15:32 EDT) SATELLITE INSTRUCTION FACILITATOR Antibody, IgG <6.0 <20.0 CU 024 11:35 EDT [facility] Comment:Results were obtaine d with the Codesign CooperativeA Flash SATELLITE INSTRUCTION FACILITATOR chemilumenscent immunoassay. Values obtained with different manufacturers' assay methods may not be used interchangeably. Blood VENOUS BLOOD / Unknown Venipuncture / Unknown 04/04/2024 15:32 EDT 04/04/2024 16:26 EDT Felicia Taveras [facility] IMMUN OLOGY AND SEROLOGY ORDERABLES [facility] [address] [place] [address] * SCL 70 ANTIBODY, IGG, SERUM (04/04/2024 15:32 EDT) Scl 70 Ab, IgG, S <0.2 <1.0 (Negative ) U 04/05/2024 17:04 EDT [facility] Comment: Test Performed by: [place] [address] Furnace Repair Mechanic: Cherrie Fernandez Ph.D.; CLIA# [id number] Blood VENOUS BLOOD / Unknown Venipuncture / Unknown 04/04/2024 15:32 EDT 04/04/2024 16:30 EDT Felicia Taveras [facility] IMMUN OLOGY AND SEROLOGY ORDERABLES [facility] [address] [place] [address] * DOUBLE STRANDED DNA ANTIBODY, IGG (04/04/2024 15:32 EDT) dsDNA Ab, IgG <22.0 <27.0 IU/mL 04/05/2024 11:35 EDT [facility] Comment: Negative: <27.0 IU/mL Indeterminate: 27.0 - 35.0 IU/mL Positive: >35.0 IU/mL Results were obtained with Codesign CooperativeA Flash dsDNA chemiluminescent immunoassay. Values obtained with different manufacturers' assay methods may not be used interchangeably. Blood VENOUS BLOOD / Unknown Venipuncture / Unknown 04/04/2024 15:32 EDT 04/04/2024 16:26 EDT Freddylarryisabelladania Castantoniobettyaura DELEON IMMUN OLOGY AND SEROLOGY ORDERABLES [facility] [address], [place] [id number] * (ABNORMAL) COMPLETE BLOOD COUNT AND DIFFERENTIAL (04/04/2024 15:32 EDT) WBC 8.87 4.00 - 10.40 K/cmm 04/04/2024 16:26 [facility] RBC 4.25(L) 4.36 - 5.78 M/cmm 04/04/2024 16:26 [facility] Hemoglobin 13.2(L) 13.8 - 17.3 g/dL 04/04/2024 16:26 [facility] HCT 42.2 39.5 - 50.2 % 04/04/2024 16:26 [facility] MCV 99(H) 81 - 95 fL 04/04/2024 16:26 [facility] MCH 31.1 27.6 - 33.0 pg 04/04/2024 16:26 [facility] MCHC 31.3(L) 32.8 - 36.4 g/dL 04/04/2024 16:26 [facility] RDW-CV 15.6(H) <14.2 % 04/04/2024 16:26 [facility] RDW-SD 56.7(H) <46.0 fl 04/04/2024 16:26 [facility] PLT 205 141 - 377 K/cmm 04/04/2024 16:26 [facility] MPV 10.0 9.5 - 12.7 fL 04/04/2024 16:26 [facility] % Neutrophils 71.5 % 04/04/2024 16:26 [facility] % Lymphocytes 13.4 % 04/04/2024 16:26 [facility] % Monocytes 7.2 % 04/04/2024 16:26 [facility] % Eosinophils 6.7 % 04/04/2024 16:26 [facility] % Basophils 0.9 % 04/04/2024 16:26 [facility] % Immature Grans 0.3 <0.9 % 04/04/20 16:26 [facility] Absolute Neutrophils 6.34 2.20 - 8.85 K/cmm 04/04/2024 16:26 [facility] Absolute Lymphocytes 1.19 1.09 - 3.30 K/cmm 04/04/2024 16:26 [facility] Absolute Monocytes 0.64 0.10 - 0.80 K/cmm 04/04/2024 16:26 [facility] Absolute Eosinophils 0.59 0.03 - 0.61 K/cmm 04/04/2024 16:26 [facility] ABS Basophils 0.08 0.01 - 0.11 K/cmm 04/04/2024 16:26 [facility] Absolute Immature Grans 0.03 0.00 - 0.06 K/cmm 04/04/2024 16:26 [facility] Type of Differential: Auto 04/04/2024 16:26 [facility] Blood VENOUS BLOOD / Unknown Venipuncture / Unknown 04/04/2024 15:32 EDT 04/04/2024 16:22 EDT Felicia NERI GES & DNA PROBE ORDERABLES [facility] [address] [place] [address] * ANTI NUCLEAR AB (OPAL), IFA (04/04/2024 15:32 EDT) OPAL Interpretation Negative Negative 2023 14:28 [facility] Comment:No titer performed, OPAL Screen is negative. Blood VENOUS BLOOD / Unknown Venipuncture / Unknown 04/04/2024 15:32 EDT 04/04/2024 16:26 EDT Narrative [facility] - 04/05/2024 14:28 EDT Results were obtained with the Novadiol NOVA Lite HEp-2 OPAL Kit by indirect immunofluorescence. Felicia DELEON IMMUN OLOGY AND SEROLOGY ORDERABLES [facility] [address] [place] [address] * (ABNORMAL) BASIC METABOLIC PANEL (BMP) (04/04/2024 15:32 EDT) Sodium 138 136 - 145 mmol/L 04/04/2024 17:01 [facility] Potassium 4.7 3.5 - 5.0 mmol/L 04/04/2024 17:01 [facility] Chloride 104 96 - 110 mmol/L 04/04/2024 17:01 [facility] CO2 Total 27 22 - 32 mmol/L 04/04/2024 17:01 [facility] Anion Gap 7 5 - 14 mmol/L 04/04/2024 17:01 [facility] Glucose 74 70 - 99 mg/dl 04/04/2024 17:01 [facility] Calcium 9.1 8.5 - 10.5 mg/dL 04/04/2024 17:01 [facility] BUN 22 10 - 26 mg/dL 04/04/2024 17:01 [facility] Creatinine 1.38(H) 0.66 - 1.25 mg/dL 04/04/2024 17:01 [facility] eGFR 54(L) >60 mL/min/1.73 m2 04/04/2024 17:01 [facility] Blood VENOUS BLOOD / Unknown Venipuncture / Unknown 04/04/2024 15:32 EDT 04/04/2024 16:28 EDT Felicia DELEON CHEMI STRY & BLOOD GAS ORDERABLES Performing Organization Address [facility]/State/ZIP Co de Phone Number [facility] [address] [place] [address] * ECG REPORT - SCANNED (03/18/2024 17:26 EDT) 03/18/2024 17:2 6 EDT Scan 2 Fruit Thinner PROCEDURE/MINOR MARCO A GICAL ORDERABLES * EKG 12-LEAD (03/15/2024 15:35 EDT) 03/15/2024 15:3 5 EDT Narrative [facility] EKG - 03/16/2024 11:42 EDT ? [facility] ? Test Date: ?2024-03-15 Pat Name: ? DILLAN AL ? Department: ?? [place] [facility] ? Room: ? Gender: ? Male ? Brattice Builder: ?? [id number] : ?1950 ? Requested By: GIULIA Evasn Number: [id number] ? Reading MD: ?? ALVARO LECHUGA MD ? Measurements Intervals ?[place] ? Rate: ? 63 ? P: ?-5 MA: ? 187 ?QRS: ?-16 QRSD: ? 117 [...] Note Alvaro Lechuga MD - 03/16/2024 [facility] Test Date: 2024-03-15 Pat Name: DILLAN TURPINYES Department: [place] Room: Gender: Male Brattice Builder: [id number] : 1950 Requested By: GIULIA Mccormick Order Number: [id number] Reading MD: ALVARO LECHUGA MD Measurements Intervals [place] Rate: 63 P: -5 MA: 187 QRS: -16 QRSD: 117 T: 30 [...] Villegas NP CARDIAC ECG ORDERABL ES [facility] EKG from Last 3 Months Care Teams Licensed Mental Health Counselor Relationship Specialty Start Date End Date Farnaz Pineda MD [address] [place] [address] PCP - General 11/18/09 Fela Villegas NP [address] [place] [phone] Rental Sales Representative Cardiovascular Disease 03/12/22
--- OUTSIDE RECORDS SUMMARY | 2024-06-07 19:47 | XMS_ITS | Encounter Summary ---
Author Organization [facility] [place] [address] Care Team Providers Care Burlap Roll Coverer Name Role Phone Farnaz Pineda MD Primary Care Provider [phone] Encounter Details Date Type Department Care Team (Late st Contact Info) Description 11/02/2012 9:10 AM EST Clinical Support Hematology [place] [id number] Social History Tobacco Use Types Packs/Day Years [...] on filedocumented in this encounter Care Teams Burlap Roll Coverer Relationship Specialty Start Date End Date Farnaz Pineda MD [address] [place] [address] PCP - General 10/26/12 documented as of this encounter
--- OUTSIDE RECORDS SUMMARY | 2024-06-07 19:47 | XMS_ITS | Encounter Summary ---
Author Organization [facility] Address [address] [place] [address] Care Team Providers Care Customer Experience Leader Name Role Phone Farnaz Pineda MD Primary Care Provider [phone] Fela Villegas CP BLEACHER OPERATOR Unavailable [phone] Reason for Visit * Cardiology (Routine/Next Available) - Receiving Office to Obtain Authorization Specialty Diagnoses / Procedures Referred By Berta tavera Referred To Contact Procedures OUTSIDE IMAGES FOR ARCHIVE - ECHO Unknown, Provider, Referral ID Status Reason Start Date Expiration Date Visits Requested Visits Authorized [id number] Receiving Office to Obtain Authorization 06/10/2022 1 1 Encounter Details Date Type Department Care Team (Latest Contact Info) Description 06/09/2022 - 06/09/2022 23:59 EDT Hospital Encounter [facility] Radiology - Main [place] [address], [place] [address] Discharge Disposition: Home or Self Care Social [...] [facility] Cardiology [address] [place], [place] [phone] 03/18/2025 14:40 EDT Office Visit [facility] Cardiology [facility] [address] [place], [place] [phone] Fela Villegas NP [address] [facility] [address] [place] [address] documented as of this encounter [...] filedocumented in this encounter Care Teams Customer Experience Leader Relationship Specialty Start Date End Date Farnaz Pineda MD [address] [place] [address] PCP - General 11/18/09 Fela Villegas NP [address] [place] [address] Nitrating Acid Mixer Cardiovascular Disease 03/12/22 documented as of this encounter
--- OUTSIDE RECORDS SUMMARY | 2024-06-07 19:47 | XMS_ITS | Encounter Summary ---
Author Organization [facility] Address [address] [place] [address] Care Team Providers Care Scrap Iron Loader Name Role Phone Farnaz Pineda MD Primary Care Provider [phone] Fela Villegas STIFF STRAW HAT WASHER Unavailable [phone] Reason for Visit * Reason Onset Date Comments Appointment Related 03/17/2022 Encounter Details Date Type Department Care Team (Late st Contact Info) Description 03/17/2022 Telephone [facility] Cardiothoracic Surgery - [address] [phone] Anahi Munoz MD [address] [place] [address], [address] [place] [address] Appointment Related Social History Tobacco [...] Info) Description 03/18/2025 14:00 EDT Ancillary Procedure [facility] Cardiology - [address] [place], [place] [phone] 03/18/2025 14:40 EDT Office Visit [facility] Cardiology - [address] [place] [address] Fela Villegas NP [address] [address] documented as of this encounter Visit Diagnoses Not on filedocumented in this encounter Care Teams Scrap Iron Loader Relationship Specialty Start Date End Date Farnaz Pineda MD [address] [place] [address] PCP - General 11/18/09 Fela Villegas NP [address] [address] Position Classification Manager Cardiovascular Disease 03/12/22 documented as of this encounter
--- OUTSIDE RECORDS SUMMARY | 2024-06-07 19:47 | XMS_ITS | Encounter Summary ---
Author Organization [facility] Address [address] [place] [address] Care Team Providers Care Contact Centre Supervisor Name Role Phone Farnaz Pineda MD Primary Care Provider [phone] Fela Villegas PRACTICE SUPPORT SPECIALIST Unavailable [phone] Encounter Details Date Type Department Care Team (Late st Contact Info) Description 04/16/2024 Orders Only [facility] Pulmonology [address] [facility], [place] [address] Felicia Taveras MBBS [address] [facility], [facility] [address] [place] [address] Bronchiectasis without complication (HCC-CMS) (Primary [...] Ancillary Procedure [facility] Cardiology - [address] [place], [place] [phone] 03/18/2025 14:40 EDT Office Visit [facility] Cardiology - [address] [place], [place] [phone] Fela Villegas NP [address] [place] [address] documented as of this encounter Visit Diagnoses Diagnosis Bronchiectasis without complication (HCC-CMS)- Primary Bronchiectasis without acute exacerbation documented in this encounter Orders Equipment Count Last Ordered Date First Orde red Date GENERIC DME ORDER 1 04/16/2024 documented in this encounter Care Teams Contact Centre Supervisor Relationship Specialty Start Date End Date Farnaz Pineda MD [address] [place] [address] PCP - General 11/18/09 Fela Villegas NP [address] [address] Instrument Person Cardiovascular Disease 03/12/22 documented as of this encounter
--- OUTSIDE RECORDS SUMMARY | 2024-06-07 19:47 | XMS_ITS | Encounter Summary ---
Author Organization [facility] [place] [address] Care Team Providers Care Foundry Patternmaker Name Role Phone Farnaz Pineda MD Primary Care Provider [phone] Reason for Visit * Reason Comments Prostate Cancer Encounter Details Date Type Department Care Team (Late st Contact Info) Description 11/02/2012 9:50 AM EST Office Visit Hematology [place] [phone] Ross Madrid MD [facility] [place] [address] Prostate cancer (Primary Dx) Discharge Disposition: Home [...] 4+4=8, 19% 1/1 core L mid - [place] 4+5=9, 10% 1/1 cores His DAVIAN has [...] a risk of micrometastatic disease given his [place] 9 diagnosis. I counseled the patient that [...] testing and communicate with his PCP and/or diamond merchant regarding clearance and a bridging regimen for [...] MD HEMATOLOGY ORDERABLE S Performing Organization Address [facility] Phone Number [facility]ITALDAKSHA HARTMANCro AnalyticsIUM * (ABNORMAL) Prothrombin Time (11/02/2012 1:45 PM EST) Prothrombin Time 23.8(H) 11.9 - 14.7 sec CERNER MILLENNIUM Comment: [facility] Transfusion Committee Guidelines: INR less [...] MD HEMATOLOGY ORDERABLE S Performing Organization Address [facility] Phone Number CERDAKSHA QwaqIUM * (ABNORMAL) Basic Metabolic Panel (non-fasting) (11/02/2012 [...] Madrid MD CHEMISTRY ORDERABLES Performing Organization Address City/[facility]/ZIP Co de Phone Number CERDAKSHA MILLENNIUM [...] MD HEMATOLOGY ORDERABLE S Performing Organization Address City/[facility]/ZIP Co de Phone Number DANETTE VALENCIA * EKG 12 Lead (11/02/2012 1:39 PM EST) Ventricular rate 77 BPM MUSE SYSTEM Atrial Rate 77 BPM MUSE SYSTEM P-R Interval 184 ms MUSE SYSTEM QRS Duration 102 ms MUSE SYSTEM Q-T Interval 360 ms MUSE SYSTEM QTC Calculated (Bezet) 407 ms MUSE SYSTEM Calculated P Mcfarland 46 degrees MUSE SYSTEM Calculated R [place]far[place] 11 degrees MUSE SYSTEM Calculated T Mcfarland 102 degrees MUSE SYSTEM INTERPRETATION Normal sinus [...] prostate documented in this encounter Care Teams Foundry Patternmaker Relationship Specialty Start Date End Date Farnaz Pineda MD [address] [place] [address] PCP - General 10/26/12 documented as of this encounter
--- OUTSIDE RECORDS SUMMARY | 2024-06-07 19:47 | XMS_ITS | Encounter Summary ---
Author Organization [facility] [place] [address] Care Team Providers Care Printing Supervisor Name Role Phone Farnaz Pineda MD Primary Care Provider [phone] Encounter Details Date Type Department Care Team (Latest Contact Info) Description 10/31/2012 6:44 AM EST - 10/31/2012 11:59 PM EST [place] [address] Ross Velazquez MD [facility] [place]Y [place] [address] Discharge Disposition: Home Social History Tobacco Use [...] 7:49 AM EST) Surgical Pathology Report ? [facility] ? Provider: ?? HYAMS, ROSS S ?Pt. Name: ?? MIKAELADILLAN ? Acc #: ?[id number] ?Pt. ? Col Date: ?? 10/31/2012 ? /Sex: ?1950,(62 years),Male ? Rec Date: ?? 10/31/2012 ? LOC: ?[facility] ? SURGICAL PATHOLOGY ? ---Pathologic Diagnosis--- ? CONSULTATION CASE ? Outside slides labeled [id number], collection date 10/05/12: ? 1 - Prostate, right lateral apex, needle core biopsy: ? Adenocarcinoma, [place] grade 3 + 3, involving approximately ? [...] lateral, needle core biopsy: ? 1. ??Adenocarcinoma, [place] grade 4 + 4, involving ? approximately [...] needle core biopsy: ?Benign prostatic tissue. ? [facility] ? Provider: ?? ROSS VELAZQUEZ ?Pt. Name: ?? DILLAN AL ? Acc #: ?[id number] ?Pt. ? Col Date: ?? 10/31/2012 ? [...] description not recorded. ? ---Gross Description--- ? [facility] ([facility]) pathology slide(s) are reviewed. ??Refer ? to Diagnosis and Specimen Submitted for specific case information. ? For the full text of the [facility] report(s) please refer to Non-DH ? Documentation Pathology in the electronic health record (eDH). ? ---Clinical Information--- ? Specimen Submitted: ? CONSULTATION CASE ? A - 25 slides labeled [id number], collection date 10/05/12. ? [id number] ? Report to: ? [employer] [employer] ? Surgical Pathology Department ? [facility], 2nd Floor ? [address] [place] [address] Avenue ? [place], [place] [address] ? DANETTE VALENCIA 10/31/2012 7:49 AM EST Ross Velazquez MD PATHOLOGY/CYTOLOGY O RDERABLES DANETTE VALENCIA documented in this encounter Visit Diagnoses Not on filedocumented in this encounter Care Teams Printing Supervisor Relationship Specialty Start Date End Date Farnaz Pineda MD [address] [place] [address] PCP - General 10/26/12 documented as of this encounter
--- OUTSIDE RECORDS SUMMARY | 2024-06-07 19:47 | XMS_ITS | Encounter Summary ---
Author Organization [facility] Address [address] [place] [address] Care Team Providers Care Automatic Brine Mixer Operator Name Role Phone Farnaz Pineda MD Primary Care Provider [phone] Fela Villegas SENIOR JAVASCRIPT DEVELOPER Unavailable [phone] Reason for Referral * Cardiology (Routine/Next Available) - New Request Specialty Diagnoses / Procedures Referred By Berta tavera Referred To Contact Diagnoses Encounter for follow-up for aortic valve replacement Procedures TRANSTHORACIC ECHO (TTE) COMPLETE ID ECHO TTHRC R-T 2D W/WOM-MODE COMPL SPEC&COLR D Fela Villegas NP [address] [place] [address] [address] [facility] Referral ID Status Reason Start Date Expiration Date V isits Requested Visits Authorized [id number] New Request 03/15/2024 1 1 * (Routine/Next Available) - New Request Specialty Diagnoses / Procedures Referred By Contac t Referred To Contact Diagnoses Paroxysmal atrial fibrillation (HCC-CMS) Procedures AMB ECONSULT PULMONOLGY OTHER Fela Villegas NP [address] [employer] [address] [place] [phone] Referral ID Status Reason Start Date Expiration Date Visits Requested Visits Authorized [id number] New Request Specialty Services Required 03/15/2024 1 1 Reason for Visit * Reason Comments Heart Problem Encounter Details Date Type Department Care Team (Late st Contact Info) Description 03/15/2024 15:20 EDT Office Visit [facility] Cardiology - [facility] [address] [facility] [place], [place] [phone] Fela Villegas NP 62 [facility] [address] [place] [address] Paroxysmal atrial fibrillation (HCC-CMS) (Primary [...] pleasure of seeing Dillan Al in the [facility] cardiology clinic today for Aortic [...] 6. Gi bleeding , cauterized 2022 at [place] 7. Left lower lobe nodule CURRENT MEDICATIONS [...] of the following tests: Echo performed at [facility] 2021: LVEF 55-60% AV functioning normally, mean [...] times Needs bronchoscopy scheduled-followed with pulmonary at [facility] 5) GI bleeding post cauterized, tolerating Coumadin PLAN: Echo for valve and ascending aorta-next year Cardiac CT scan for ascending aorta follow up Continue Coumadin, INR 2.5 to 3.5 Lipids are checked by PCP E consult to pulmonary-see scan from pulmonary at [facility]. I spent a total of [...] Info) Description 03/18/2025 14:00 EDT Ancillary Procedure [facility] Cardiology - [address] [place], [place] [phone] 03/18/2025 14:40 EDT Office Visit [facility] Cardiology [address] [place] [address] Fela iVllegas NP 62 [facility] [address] [place] [address] Scheduled Orders Name Type Priority [...] EDT) 03/18/2024 17:2 6 EDT Scan 2 Build And Deployment Engineer PROCEDURE/MINOR MARCO A GICAL ORDERABLES * EKG 12-LEAD (03/15/2024 15:35 EDT) 03/15/2024 15:3 5 EDT Narrative [facility] EKG - 03/16/2024 11:42 EDT ? [facility] ? Test Date: ?2024-03-15 Pat Name: ? DILLAN AL ? Department: ?? Pierre Card ? Room: ? Gender: ? Male ? Mortgage Professional: ?? [id number] : ?1950 ? Requested By: GIULIA Mccormick Order Number: [id number] ? Kwadwo NICHOLSON: ?? ALVARO LECHUGA MD ? Measurements Intervals ?[place] ? Rate: ? 63 ? P: ?-5 ID: ? [id number] ?QRS: ?-16 QRSD: ? 117 [...] Note Alvaro Lechuga MD - 03/16/2024 [facility] Test Date: 2024-03-15 Pat Name: DILLAN AL Department: Pierre [place] Room: Gender: Male Mortgage Professional: [id number] : 1950 Requested By: GIULIA Mccormick Order Number: [id number] Reading MD: ALVARO LECHUGA MD Measurements Intervals [place] Rate: 63 P: -5 ID: [id number] QRS: -16 QRSD: 117 T: 30 [...] Fela Villegas NP CARDIAC ECG ORDERABL ES [facility] EKG documented in this encounter Visit Diagnoses Diagnosis Paroxysmal atrial fibrillation ([facility])- Primary Atrial fibrillation Encounter for follow-up for [...] 03/15/2024 documented in this encounter Care Teams Automatic Brine Mixer Operator Relationship Specialty Start Date End Date Farnaz Pineda MD [address] [place] [address] PCP - General 11/18/09 Fela Villegas NP [address] [phone] Entry Level Chemist Cardiovascular Disease 03/12/22 documented as of this encounter
--- OUTSIDE RECORDS SUMMARY | 2024-06-07 19:48 | XMS_ITS | Encounter Summary ---
Author Organization [facility] Address [address] [place] [address] Care Team Providers Care Material Handler 1St Shift Name Role Phone Unavailable Primary Care Provider Unavailabl e Encounter Details Date Type Department Care Team (Late st Contact Info) Description 03/10/2000 9:58 EDT Hospital Encounter [facility] [address] [place] [address] Neo Madrid MD Social History Tobacco Use [...] Description 03/18/2025 14:00 EDT Ancillary Procedure [facility] Cardiology - [facility] [place] [address] 03/18/2025 14:40 EDT Office Visit [facility] Cardiology [place] [address] Fela Villegas NP [address] [address] documented as of this encounter Visit Diagnoses Not on filedocumented in this encounter
--- OUTSIDE RECORDS SUMMARY | 2024-06-07 19:48 | XMS_ITS | Encounter Summary ---
Author Organization [facility] Address [address] [place] [address] Care Team Providers Care Dispensary Clerk Name Role Phone Unavailable Primary Care Provider Unavailabl e Encounter Details Date Type Department Care Team (Late st Contact Info) Description 08/16/2002 14:48 EST Hospital Encounter [facility] - [facility] [address] [place] [address] Neo Madrid MD Social History Tobacco Use [...] 14:00 EDT Ancillary Procedure [facility] Cardiology - [facility] [place] [address] 03/18/2025 14:40 EDT Office Visit [facility] Cardiology - [place] [address] Fela Villegas NP [address] [address] documented as of this encounter Visit Diagnoses Not on filedocumented in this encounter
--- OUTSIDE RECORDS SUMMARY | 2024-06-07 19:48 | XMS_ITS | Encounter Summary ---
Author Organization [facility] Address [address] [place] [address] Care Team Providers Care Batch Analyst Name Role Phone Farnaz Pineda MD Primary Care Provider [phone] Encounter Details Date Type Department Care Team (Late st Contact Info) Description 09/24/2016 Results Only [facility] [phone] Rudy Riojas, DO [address] [place] [address] Social History Tobacco Use Types [...] Description 03/18/2025 14:00 EDT Ancillary Procedure [facility] Cardiology - [place] [address] [place] [address] 03/18/2025 14:40 EDT Office Visit [facility] Cardiology - [facility] [place] [address] Fela Villegas NP 62 [facility] [address] [place] [address] documented as of this encounter [...] ? DILLAN AL ? Accession #: ? [id number] ? : ? 1950 (Age: 66) ??M [...] ANTIBODY(CLONE)(BLO CK):RESULT H. pylori (Rabbit Monoclonal (SP48), [place]) (1): ??Negative NOTE: ??One or more of [...] performance characteristics have been determined by the [facility]. ??The positive and negative controls worked [...] (ASCP) 09/27/2016 9:20 AM End of Report [facility] 09/24/2016 8:46 EST 09/25/2016 8:46 EST Rudy Riojas DO PATHOLOGY ORDERABLES [facility] [address] [place] [address] documented in this encounter Visit Diagnoses Not on filedocumented in this encounter Care Teams Batch Analyst Relationship Specialty Start Date End Date Farnaz Pineda MD [address] [place] [address] PCP - General 11/18/09 documented as of this encounter
--- OUTSIDE RECORDS SUMMARY | 2024-06-07 19:48 | XMS_ITS | Encounter Summary ---
Author Organization [facility] Address [address] [place] [address] Care Team Providers Care Grab Hooker Name Role Phone Unavailable Primary Care Provider Unavailabl e Encounter Details Date Type Department Care Team (Latest Contact Info) Description 06/21/2002 6:54 EDT - 06/26/2002 11:59 EDT Hospital Encounter [facility] Cardiothoracic Surgery Unit [address] [place], [place] [address] Masoud Contreras MD Discharge Disposition: Home or [...] 14:00 EDT Ancillary Procedure [facility] Cardiology - [address] [place], [place] [phone] 03/18/2025 14:40 EDT Office Visit [facility] Cardiology - [facility] [place] [address] Fela Villegas NP [address] [facility] [address] [place] [address] documented as of this encounter [...] HEMATOLOGY & PF4 ORDERABLES Performing Organization Address City/State/[facility] Co de Phone Number [facility] [address] [place] [address] * (ABNORMAL) PROTIME (06/26/2002 7:45 EDT) Pro [...] HEMATOLOGY & PF4 ORDERABLES Performing Organization Address [facility] Co de Phone Number [facility] [address] [place] [address] * PROTIME (06/25/2002 7:40 EDT) Pro Time 12.8 11.7 - 13.1 secs [facility] I.N.R. 1.1 0.8 - 1.2 Ratio [facility] Comment: Moderate Intensity Coumadin INR = 2.0-3.0 Adjustments in anticoagulant therapy dose should be based upon the INR and NOT the Pro Time. 06/25/2002 7:40 EDT 06/25/2002 8:33 EDT Masoud Contreras MD HEMATOLOGY & PF4 ORDERABLES Performing Organization Address [facility] de Phone Number [facility] [address] [place] [address] * URINE MICROSCOPIC (06/25/2002 0:15 EDT) WBC, [...] MD URINALYSIS ORDERA BLES Performing Organization Address [facility] Co de Phone Number [facility] [address] [place] [address] * (ABNORMAL) URINALYSIS (06/25/2002 0:15 EDT) Color, UA Yellow [facility] Clarity, UA Clear [facility] Glucose, UA Norm NORM [facility] Bilirubin, UA Neg NEG [facility] Ketones, UA Neg NEG [facility] Specific [place], Urine 1.015 1.005 - 1.02 [facility] [...] MD URINALYSIS ORDERA BLES Performing Organization Address [facility] Co de Phone Number [facility] [address] [place] [address] * BACTERIAL CULTURE, URINE (06/25/2002 0:15 EDT) Specimen Description Urine [facility] Result Less than 10,000 CFU/ml Mixed gram positive growth [facility] Report Status Final [id number] [facility] 06/25/2002 0:15 EDT 06/25/2002 7:46 EDT Masoud Contreras MD MICROBIOLOGY - GE NERAL ORDERABLES Performing Organization Address [facility] Co de Phone Number [facility] [address] [place] [address] * BACTERIAL CULTURE, BLOOD (06/24/2002 20:14 EDT) Specimen Description Blood Right Arm [facility] Result No growth [facility] Report Status Final [id number] [facility] 06/24/2002 20:1 4 EDT 06/24/2002 21:24 EDT Masoud Contreras MD MICROBIOLOGY - GE NERAL ORDERABLES Performing Organization Address City/[facility]/ZIP Co de Phone Number [facility] [address] [place] [address] * BACTERIAL CULTURE, BLOOD (06/24/2002 20:10 EDT) Specimen Description Blood Left Arm [facility] Result No growth [facility] Report Status Final [id number] [facility] 06/24/2002 20:1 0 EDT 06/24/2002 21:25 EDT Masoud Contreras MD MICROBIOLOGY - GE NERAL ORDERABLES Performing Organization Address [facility] Co de Phone Number [facility] [address] [place] [address] * CHEST PA AND LATERAL (06/24/2002 11:32 [...] pneumothorax is present. Pulmonary vasculature is unremarkable. /[facility] Masoud Contreras MD IMG DIAGNOSTIC IM [...] results. [facility] Report Status Final [id number] [facility] 06/24/2002 8:00 EDT 06/25/2002 10:12 EDT Masoud Contreras MD MICROBIOLOGY - GE NERAL ORDERABLES Performing Organization Address [facility] de Phone Number [facility] [address] [place] [address] * PROTIME (06/24/2002 7:40 EDT) Pro Time 13.1 11.7 - 13.1 secs [facility] I.N.R. 1.1 0.8 - 1.2 Ratio [facility] Comment: Moderate Intensity Coumadin INR = 2.0-3.0 Adjustments in anticoagulant therapy dose should be based upon the INR and NOT the Pro Time. 06/24/2002 7:40 EDT 06/24/2002 8:05 EDT Masoud Contreras MD HEMATOLOGY & PF4 ORDERABLES Performing Organization Address [facility] de Phone Number [facility] [address] [place] [address] * POTASSIUM (06/24/2002 7:40 EDT) Potassium 4.0 3.5 - 5.0 mEq/L [facility] 06/24/2002 7:40 EDT 06/24/2002 8:05 EDT Masoud Contreras MD CHEMISTRY & BLOOD GAS ORDERABLES Performing Organization Address [facility] de Phone Number [facility] [address] [place] [address] * CREATININE (06/24/2002 7:40 EDT) Creatinine 1.1 0.7 - 1.5 mg/dl [facility] 06/24/2002 7:40 EDT 06/24/2002 8:05 EDT Masoud Contreras MD HISTORICAL LAB FO R SQ LOAD [facility] [address] [place] [address] * (ABNORMAL) HEMAGRAM & DIFF (06/24/2002 7:40 [...] FO R SQ LOAD Performing Organization Address [facility] Phone Number [facility] [address] [place] [address] * BUN (06/24/2002 7:40 EDT) BUN 20 10 - 26 mg/dl [facility] 06/24/2002 7:40 EDT 06/24/2002 8:05 EDT Masoud Contreras MD CHEMISTRY & BLOOD GAS ORDERABLES Performing Organization Address [facility] Phone Number [facility] [address] [place] [address] * (ABNORMAL) PROTIME (06/23/2002 7:45 EDT) Pro [...] HEMATOLOGY & PF4 ORDERABLES Performing Organization Address [facility] Phone Number [facility] [address] [place] [address] * PORTABLE CHEST 1 VIEW (06/22/2002 8:19 EDT) Anatomical Region Laterality Modality Other 06/22/2002 8:19 EDT Narrative 07/07/2009 3:57 EDT AVR. ??R/O INFILTRATE PORTABLE CHEST 1 VIEW 06/22/02 0730 FINDINGS: There is increasing atelectasis in the medial right and left lung bases. No edema is noted and there are no significant pleural effusions. The Loveland-Mariah catheter tip is in the proximal right pulmonary artery. The patient has been extubated. /[facility] Procedure Note Blair Hernandez MD / Riky Arias MD - 07/07/2009 AVR. R/O INFILTRATE PORTABLE CHEST 1 VIEW 06/22/02 0730 FINDINGS: There is increasing atelectasis in the medial right and left lung bases. No edema is noted and there are no significant pleural effusions. The Loveland-Mariah catheter tip is in the proximal right [...] BLOOD GAS ORDERABLES [facility] [address] [place] [address] * CREATININE (06/22/2002 4:17 EDT) Creatinine 1.1 0.7 - 1.5 mg/dl [facility] 06/22/2002 4:17 EDT 06/22/2002 4:17 EDT Masoud Contreras MD HISTORICAL LAB FO R SQ LOAD Performing Organization Address City/[facility]/ZIP Co de Phone Number [facility] [address] [place] [address] * (ABNORMAL) HEMAGRAM (06/22/2002 4:17 EDT) WBC 12.20(H) 4.0 - 10.4 K/cmm [facility] RBC 3.22(L) 4.36 - 5.78 M/cmm [facility] Hemoglobin 10.4(L) 13.8 - 17.3 gm/dl [...] HEMATOLOGY & PF4 ORDERABLES Performing Organization Address [facility] Co de Phone Number [facility] [address] [place] [address] * BUN (06/22/2002 4:17 EDT) BUN 15 10 - 26 mg/dl [facility] Comment: Moderate hemolysis Results may be affected due to hemolysis. 06/22/2002 4:17 EDT 06/22/2002 4:17 EDT Masoud Contreras MD CHEMISTRY & BLOOD GAS ORDERABLES Performing Organization Address [facility] Co de Phone Number [facility] [address] [place] [address] * (ABNORMAL) BLOOD GAS, G3 ISTAT (06/21/2002 [...] [facility] Sample Type Arterial [facility]ERY[facility] machine wedger ID [id number] Test Performed by Respiratory [facility] 06/21/2002 19:0 5 EDT 06/22/2002 5:51 EDT Masoud Contreras MD CHEMISTRY & BLOOD GAS ORDERABLES Performing Organization Address [facility] Co de Phone Number [facility] [address] [place] [address] * POTASSIUM (06/21/2002 18:55 EDT) Pathologist [facility] Potassium 4.6 3.5 - 5.0 mEq/L [facility] 06/21/2002 18:5 5 EDT 06/21/2002 18:55 EDT Masoud Contreras MD CHEMISTRY & BLOOD GAS ORDERABLES Performing Organization Address [facility] Co de Phone Number [facility] [address] [place] [address] * (ABNORMAL) HEMAGRAM (06/21/2002 18:55 EDT) WBC [...] & PF4 ORDERABLES [facility] [address] [place] [address] * PORTABLE CHEST 1 VIEW (06/21/2002 15:00 EDT) Anatomical Region Laterality Modality Other 06/21/2002 15:0 0 EDT Narrative 07/07/2009 3:56 EDT S/P AVR EVAL MEDISTINAL PLEURAL EFFUSION PORTABLE CHEST, ONE VIEW, 06/21/02, 1500 HISTORY: Status post AVR, evaluate mediastinum, pleural effusions. Endotracheal tube is in good position. Mediastinal drain is normally positioned as well. Loveland-Mariah catheter tip is in the right anterior pulmonary artery. Right-sided chest tube is present as well. NG tube is passing into the stomach. There are low lung volumes. There is a small amount of left lower lobe atelectasis. The mediastinum is widened to the expected amount considering postoperative status. /[facility] Procedure Note Blair Hernandez MD / Riky Arias MD - 07/07/2009 S/P AVR EVAL MEDISTINAL PLEURAL EFFUSION PORTABLE CHEST, ONE VIEW, 06/21/02, 1500 HISTORY: Status post AVR, evaluate mediastinum, pleural effusions. Endotracheal tube is in good position. Mediastinal drain is normally positioned as well. Loveland-Mariah catheter tip is in the right anterior pulmonary artery. Right-sided chest tube is present as well. NG tube is passing into the stomach. There are low lung volumes. There is a small amount of left lower lobe atelectasis. The mediastinum is widened to the expected amount considering postoperative status. /[facility] Masoud Contreras MD IMG DIAGNOSTIC IM [...] [facility] Sample Type Arterial [facility] machine wedger ID [id number] Test Performed by Respiratory [facility] 06/21/2002 14:3 5 EDT 06/21/2002 19:18 EDT Masoud Contreras MD CHEMISTRY & BLOOD GAS ORDERABLES Performing Organization Address [facility] de Phone Number [facility] [address] [place] [address] * POTASSIUM (06/21/2002 12:17 EDT) Potassium 4.2 3.5 - 5.0 mEq/L [facility] 06/21/2002 12:1 7 EDT 06/21/2002 12:38 EDT Masoud Contreras MD CHEMISTRY & BLOOD GAS ORDERABLES Performing Organization Address [facility] Co de Phone Number [facility] [address] [place] [address] * (ABNORMAL) HEMAGRAM (06/21/2002 12:17 EDT) WBC [...] HEMATOLOGY & PF4 ORDERABLES Performing Organization Address City/State/[facility] Co de Phone Number [facility] [address] [place] [address] * SURGICAL PATHOLOGY (06/21/2002 0:00 EDT) Pathologist [facility] Pathology Report: SURGICAL PATHOLOGY REPORT Reports generated via electronic interface contain original data; however they are lacking the format of the original report. Caution should be taken when reading/interpreti ng unformatted reports. Name: ? MIKAELADILLAN Terrence ? Accession #: ? [id number] ? : ? 1950 (Age: 52) ??M [...] the cusps are thickened and calcified. ??A school admissions representative section of each cusp is submitted as (A1) and (A2). ??(Dr. Sandoval)/[facility] End of Report [facility] 06/21/2002 06/21/2002 13: 43 EDT Masoud Contreras MD PATHOLOGY ORDERAB LES [facility] [address] [place] [address] documented in this encounter Visit Diagnoses Not on filedocumented in this encounter
--- OUTSIDE RECORDS SUMMARY | 2024-06-07 19:48 | XMS_ITS | Encounter Summary ---
Author Organization [facility] Address [address] [place] [address] Care Team Providers Care Impact Hammer Operator Name Role Phone Farnaz Pineda MD Primary Care Provider Reason for Visit * Reason Comments Irregular Heart Beat Encounter Details Date Type Department Care Team (Late st Contact Info) Description 05/17/2016 9:45 EDT Office Visit [facility] Cardiology - [address] [place] [address] Neo Madrid MD Aortic valve [...] Madrid MD - 05/17/2016 1021 EDT [facility] CARDIOLOGY May 17, 2016 Farnaz Pineda MD [facility] [address] [facility] [address] [place] [address] RE: DILLAN AL : [address] [...] - Neo Madrid MD mn Dictation ID: [id number] cc: Farnaz Pineda MD, [address], [address] [facility], [place] [address] * Neo Madrid MD - 05/17/2016 0957 EDT This office note has been dictated. documented in this encounter Plan of Treatment Upcoming Encounters Date Type Department Care Team (Late st Contact Info) Description 03/18/2025 14:00 EDT Ancillary Procedure [facility] Cardiology - [address] [address] 03/18/2025 14:40 EDT Office Visit [facility] Cardiology - [address] [phone] Fela Villegas NP [address] [facility] [address] [place] [phone] documented as of this encounter Visit Diagnoses Diagnosis Aortic valve disorder- Primary Aortic valve disorders documented in this encounter Care Teams Impact Hammer Operator Relationship Specialty Start Date End Date Farnaz Pineda MD [address] [place] [address] PCP - General 11/18/09 documented as of this encounter
--- OUTSIDE RECORDS SUMMARY | 2024-06-07 19:48 | XMS_ITS | Encounter Summary ---
Author Organization [facility] Address [address] [place] [address] Care Team Providers Care Pediatric Speech Language Pathologist Name Role Phone Farnaz Pineda MD Primary Care Provider [phone] Encounter Details Date Type Department Care Team (Latest Contact Info) Description 10/01/2013 14:47 EST - 10/01/2013 23:59 EST Hospital Encounter [address] [address] Unknown, Provider, Discharge Disposition: Home or Self [...] Code Departure Means Destination Home or Self Nursing Home documented in this encounter Plan of Treatment Upcoming Encounters Date Type Department Care Team (Late st Contact Info) Description 03/18/2025 14:00 EDT Ancillary Procedure [facility] Cardiology - [address] [place], [place] [phone] 03/18/2025 14:40 EDT Office Visit [facility] Cardiology [address] [place] [address] Fela Villegas NP [address] [facility] [address] [place] [address] documented as of this encounter Visit Diagnoses Not on filedocumented in this encounter Care Teams Pediatric Speech Language Pathologist Relationship Specialty Start Date End Date Farnaz Pineda MD [address] [place] [address] PCP - General 11/18/09 documented as of this encounter
--- OUTSIDE RECORDS SUMMARY | 2024-06-07 19:48 | XMS_ITS | Encounter Summary ---
Author Organization [facility] Address [address] [place] [address] Care Team Providers Care Director Of Assisted Living Name Role Phone Farnaz Pineda MD Primary Care Provider [phone] Reason for Visit * Reason Comments Follow-up AVR Encounter Details Date Type Department Care Team (Late st Contact Info) Description 09/23/2011 10:45 EST Office Visit [facility] Cardiology - [address] [place] [address] Neo Madrid MD Aortic valve [...] Notes * Neo Madrid MD - 09/27/2011 1547 EST RE: NAME: DILLAN AL : 1950 September 23, 2011 Farnaz Pineda MD [facility] [address] [facility], [address] [place] [address] Pineda: I saw Mr Al [...] his care. Sincerely, Electronically Signed by Neo Mardid MD 10/06/2011 11:17 Neo Madrid MD - Neo Madrid MD - MR Job ID: SM Doc ID: [id number] Ext Doc ID: [id number] cc: Farnaz Pineda MD * Neo Madrid MD - 09/23/2011 1056 EST This office note has been dictated. documented in this encounter Plan of Treatment Upcoming Encounters Date Type Department Care Team (Late st Contact Info) Description 03/18/2025 14:00 EDT Ancillary Procedure [facility] Cardiology - [address] [place], [place] [phone] 03/18/2025 14:40 EDT Office Visit [facility] Cardiology - [address] [place], [place] [phone] Fela Villegas, PANKAJ [address] [facility] [address] [place] [address] documented as of this encounter Visit Diagnoses Diagnosis Aortic valve disorders- Primary documented in this encounter Care Teams Director Of Assisted Living Relationship Specialty Start Date End Date Farnaz Pineda MD [address] [place] [address] PCP - General 11/18/09 documented as of this encounter
--- OUTSIDE RECORDS SUMMARY | 2024-06-07 19:48 | XMS_ITS | Encounter Summary ---
Author Organization [facility] Address [address] [place] [address] Care Team Providers Care Tool Tender Name Role Phone Unavailable Primary Care Provider Unavailabl e Encounter Details Date Type Department Care Team (Late st Contact Info) Description 09/21/2007 14:25 EST Hospital Encounter [facility] [address] [place] [address] Neo Madrid MD Social History Tobacco Use [...] 03/18/2025 14:00 EDT Ancillary Procedure [facility] Cardiology - [facility] [place] [address] 03/18/2025 14:40 EDT Office Visit [facility] Cardiology - [place] [address] Fela Villegas NP [address] [phone] documented as of this encounter Visit Diagnoses Not on filedocumented in this encounter
--- OUTSIDE RECORDS SUMMARY | 2024-06-07 19:48 | XMS_ITS | Encounter Summary ---
Author Organization [facility] Address [address] [place] [address] Care Team Providers Care Electric Refrigerator Preparer Name Role Phone Farnaz Pineda MD Primary Care Provider [phone] Reason for Visit * Cardiology (Routine) - Closed Specialty Diagnoses / Procedures Referred By Berta tavera Referred To Contact Cardiology Diagnoses H/O aortic valve replacement Procedures TRANSTHORACIC ECHO (TTE) COMPLETE Fela Villegas NP [address] [facility] [address] [place] [address] [facility] Cardiology [address] [place] [address] [place] [address] Referral ID Status Reason Start Date Expiration Date Visits Re quested Visits Authorized [id number] Closed 07/04/2020 1 1 Encounter Details Date Type Department Care Team (Latest Contact Info) Description 03/05/2021 14:00 EDT Ancillary Procedure [facility] Cardiology - [address] [place] [address] H/O aortic valve replacement Social [...] 14:00 EDT Ancillary Procedure [facility] Cardiology [address] [place] [address] 03/18/2025 14:40 EDT Office Visit [facility] Cardiology [address] [place], [place] [phone] Fela Villegas NP [address] [facility] [address] [place] [phone] documented as of this encounter Procedures Procedure [...] color Doppler.The study was interpreted by [facility] Cardiology. Pertinent images and [...] documented in this encounter Care Teams Electric Refrigerator Preparer Relationship Specialty Start Date End Date Farnaz Pineda MD [address] [place] [address] PCP - General 11/18/09 documented as of this encounter
--- OUTSIDE RECORDS SUMMARY | 2024-06-07 19:48 | XMS_ITS | Encounter Summary ---
Author Organization [facility] Address [address] [place] [address] Care Team Providers Care Laboratory Immunologist Name Role Phone Unavailable Primary Care Provider Unavailabl e Encounter Details Date Type Department Care Team (Late st Contact Info) Description 09/19/2008 13:42 EST Hospital Encounter [facility] - [address] [facility] [address] [place] [address] Neo Madrid MD Social History Tobacco Use [...] Info) Description 03/18/2025 14:00 EDT Ancillary Procedure [facility] Cardiology - [facility] [place] [address] 03/18/2025 14:40 EDT Office Visit [facility] Cardiology - [place] [address] Fela Villegas NP [address] [facility] [address] [place] [phone] documented as of this encounter Procedures [...] ? DILLAN AL ? Accession #: ? [id number] ? : ? 1950 (Age: 58) ??M [...] MD PATHOLOGY ORDERABLES [facility] [address] [place] [address] documented in this encounter Visit Diagnoses Not on filedocumented in this encounter
--- OUTSIDE RECORDS SUMMARY | 2024-06-07 19:48 | XMS_ITS | Encounter Summary ---
Author Organization [facility] Address [address] [place] [address] Care Team Providers Care Able Bodied Watchman Name Role Phone Farnaz Pineda MD Primary Care Provider [phone] Fela Villegas BRAKE ENGINEER Unavailable [phone] Encounter Details Date Type Department Care Team (Late st Contact Info) Description 07/07/2020 Telephone [facility] Cardiology - [address] [place], [place] [phone] Gricelda Humphrey, LANIE Social History Tobacco Use [...] Procedure [facility] Cardiology - [place] [address] [place], [place] [phone] 03/18/2025 14:40 EDT Office Visit [facility] Cardiology - [place] [address] [place] [address] Fela Villegas NP [address] [phone] documented as of this encounter Visit Diagnoses Not on filedocumented in this encounter Care Teams Able Bodied Watchman Relationship Specialty Start Date End Date Farnaz Pineda MD [address] [place] [address] PCP - General 11/18/09 Fela Villegas NP [address] [address] Frame Trimmer Cardiovascular Disease 03/12/22 documented as of this encounter
--- OUTSIDE RECORDS SUMMARY | 2024-06-07 19:48 | XMS_ITS | Encounter Summary ---
Author Organization [facility] Address [address] [place] [address] Care Team Providers Care Machine Builder Name Role Phone Farnaz Pineda MD Primary Care Provider [phone] Reason for Visit * Reason Comments Other aortic valve disorde r Encounter Details Date Type Department Care Team (Late st Contact Info) Description 10/07/2017 10:15 EST Office Visit [facility] Cardiology - [address] [place], [place] [id number] eNo Madrid MD Aortic valve disorder (Primary Dx) [...] Madrid MD - 10/07/2017 0000 EST [facility] CARDIOLOGY October 07, 2017 Farnaz Pineda MD [address] [place] [address] RE: DILLAN AL : [address] [...] by DVT. c. Complicated by sepsis. d. [place] filter. Current Meds: Aspirin 81 mg a [...] - Neo Madrid MD mn Dictation ID: [id number] cc: Farnaz Pineda MD, [address], [place] [address] documented in this encounter Plan of Treatment Upcoming Encounters Date Type Department Care Team (Late st Contact Info) Description 03/18/2025 14:00 EDT Ancillary Procedure [facility] Cardiology - [address] [place] [address] 03/18/2025 14:40 EDT Office Visit [address] [place] [address] Fela Villegas, PANKAJ 62 [facility] [address] [place] [phone] documented as of this encounter Visit Diagnoses Diagnosis Aortic valve disorder- Primary Aortic valve disorders documented in this encounter Care Teams Machine Builder Relationship Specialty Start Date End Date Farnaz Pineda MD [address] [place] [address] PCP - General 11/18/09 documented as of this encounter
--- OUTSIDE RECORDS SUMMARY | 2024-06-07 19:48 | XMS_ITS | Encounter Summary ---
Author Organization [facility] Address [address] [place] [address] Care Team Providers Care Lacquer Sprayer Name Role Phone Farnaz Pineda MD Primary Care Provider Reason for Visit * Reason Comments Heart Problem Encounter Details Date Type Department Care Team (Late st Contact Info) Description 03/05/2021 15:00 EDT Office Visit [facility] Cardiology - [address] [id number] Fela Villegas NP 62 [facility] [address] [place] [address] S/P AVR (Primary Dx) Social [...] this encounter Progress Notes * Fela Villegas, VISUAL ARTIST - 03/05/2021 1500 EDT DATE OF VISIT: 03/05/2021 CHIEF COMPLAINT: Aortic valve disease I had the pleasure of seeing Sylvain Rodgers in the [facility] cardiology clinic today for Aortic valve [...] by DVT. c. Complicated by sepsis. d. [place] filter. 4. Ascending aorta 4.4cm CURRENT MEDICATIONS [...] Info) Description 03/18/2025 14:00 EDT Ancillary Procedure [facility] Cardiology - [address] [address] 03/18/2025 14:40 EDT Office Visit [facility] Cardiology - [address] [place], [place] [phone] Fela Villegas NP 62 [facility] [address] [place] [phone] documented as of this encounter Visit Diagnoses Diagnosis S/P AVR- Primary Heart valve replaced by other means documented in this encounter Care Teams Lacquer Sprayer Relationship Specialty Start Date End Date Farnaz Pineda MD [address] [place] [address] PCP - General 11/18/09 documented as of this encounter
--- OUTSIDE RECORDS SUMMARY | 2024-06-07 19:48 | XMS_ITS | Encounter Summary ---
Author Organization [facility] Address [address] [place] [address] Care Team Providers Care Casting Operator Name Role Phone Unavailable Primary Care Provider Unavailabl e Encounter Details Date Type Department Care Team (Late st Contact Info) Description 09/21/2007 Before PRISM Converted Visit (Maple) [facility] - Maple conversion [address] [place] [address] Neo Madrid MD Social History Tobacco Use [...] Farnaz Pineda MD [address] 201 [facility] [address] Pineda: I saw Mr. Al. [...] Jace Madrid MD - MANAN Job ID: [id number] Doc ID: [id number] cc: Farnaz Pineda MD Neo Madrid MD - Neo Madrid MD - manan Job ID: [id number] Doc ID: [id number] cc: Farnaz Pineda MD documented in this encounter Plan of Treatment Upcoming Encounters Date Type Department Care Team (Late st Contact Info) Description 03/18/2025 14:00 EDT Ancillary Procedure [facility] Cardiology [place] [address] 03/18/2025 14:40 EDT Office Visit [facility] Cardiology - [facility] 62 [facility] [place] [address] Fela Villegas NP 62 [facility] [address] [place] [address] documented as of this encounter Visit Diagnoses Not on filedocumented in this encounter
--- OUTSIDE RECORDS SUMMARY | 2024-06-07 19:48 | XMS_ITS | Encounter Summary ---
Author Organization [facility] Address [address] [place] [address] Care Team Providers Care News Content Specialist Name Role Phone Unavailable Primary Care Provider Unavailabl e Encounter Details Date Type Department Care Team (Latest Contact Info) Description 08/06/2002 9:36 EST - 08/06/2002 11:59 EST Hospital Encounter [facility] [address] [place] [address] Masoud Contreras MD Discharge Disposition: Auto Discharge [...] EDT Ancillary Procedure [facility] Cardiology - [facility] [place] [address] 03/18/2025 14:40 EDT Office Visit [facility] Cardiology - [facility] [address] [place], [place] [phone] Fela Villegas NP 62 [facility] [address] [place] [address] documented as of this encounter [...]
--- OUTSIDE RECORDS SUMMARY | 2024-06-07 19:48 | XMS_ITS | Encounter Summary ---
Author Organization [facility] Address [address] [place] [address] Care Team Providers Care Java Development Team Lead Name Role Phone Farnaz Pineda MD Primary Care Provider [phone] Encounter Details Date Type Department Care Team (Late st Contact Info) Description 03/27/2010 Abstract [facility] Cardiology - [facility] [place] [address] Farnaz Pineda MD [address] [place] [address] Social History Tobacco Use Types Packs/Day Years [...] EDT Ancillary Procedure [facility] [place] [address] [place], [place] [phone] 03/18/2025 14:40 EDT Office Visit [facility] [place] [address] Fela Villegas NP 62 [facility] [address] [place] [address] documented as of this encounter [...] 07/03/2019 added in this encounter Care Teams Java Development Team Lead Relationship Specialty Start Date End Date Farnaz Pineda MD [address] [place] [address] PCP - General 11/18/09 documented as of this encounter
--- OUTSIDE RECORDS SUMMARY | 2024-06-07 19:48 | XMS_ITS | Encounter Summary ---
Author Organization [facility] Address [address] [place] [address] Care Team Providers Care Drafter Topographical Name Role Phone Farnaz Pineda MD Primary Care Provider [phone] Reason for Visit * Reason Comments Heart Problem FUR, Aortic Valve Di sorder Encounter Details Date Type Department Care Team (Late st Contact Info) Description 07/03/2019 14:30 EDT Office Visit [facility] Cardiology - [address] [place], [place] [phone] Neo Madrid MD S/P AVR (Primary Dx); [...] MD, MD - 07/03/2019 0000 EDT [facility] CARDIOLOGY July 03, 2019 Farnaz Pineda MD [address], [address] [place] [address] RE: DILLAN AL : [address] [...] by DVT. c. Complicated by sepsis. d. [place] filter. Current Medications: Fluticasone/salmeterol twice per day. [...] - Neo Madrid MD cn Dictation ID: [id number] cc: Farnaz Pineda MD, [address], [place] [address] documented in this encounter Plan of Treatment Upcoming Encounters Date Type Department Care Team (Late st Contact Info) Description 03/18/2025 14:00 EDT Ancillary Procedure [facility] Cardiology - [address] [place] [address] 03/18/2025 14:40 EDT Office Visit [facility] Cardiology - [address] [place] [address] Fela Villegas NP [address] [facility] [address] [place] [address] documented as of this encounter Visit Diagnoses Diagnosis S/P AVR- Primary Heart valve replaced by other means Aortic valve disorder Aortic valve disorders documented in this encounter Discontinued Medications Medication Sig Discontinue Reason Start Date End Da te Aspirin 81 mg Tab Take 81 mg by mouth daily. 07/03/2019 documented as of this encounter Care Teams Drafter Topographical Relationship Specialty Start Date End Date Farnaz Pineda MD [address] [place] [address] PCP - General 11/18/09 documented as of this encounter
--- OUTSIDE RECORDS SUMMARY | 2024-06-07 19:48 | XMS_ITS | Encounter Summary ---
Author Organization [facility] Address [address] [place] [address] Care Team Providers Care Full Stack Engineer Name Role Phone Unavailable Primary Care Provider Unavailabl e Encounter Details Date Type Department Care Team (Late st Contact Info) Description 03/15/2002 10:11 EDT Hospital Encounter [facility] - Maple conversion [address] [place] [address] Neo Madrid MD Social History Tobacco Use [...] 14:00 EDT Ancillary Procedure [facility] Cardiology - [facility] [place] [address] 03/18/2025 14:40 EDT Office Visit [facility] Cardiology - [facility] [place] [address] Fela Villegas NP [address] [address] documented as of this encounter Visit Diagnoses Not on filedocumented in this encounter
--- OUTSIDE RECORDS SUMMARY | 2024-06-07 19:48 | XMS_ITS | Encounter Summary ---
Author Organization [facility] Address [address] [place] [address] Care Team Providers Care Broomcorn Grader Name Role Phone Unavailable Primary Care Provider Unavailabl e Encounter Details Date Type Department Care Team (Late st Contact Info) Description 03/03/2006 Before PRISM Converted Visit (Maple) [facility] - Maple conversion [address] [place] [address] Neo Madrid MD Social History Tobacco Use Types Packs/Day Years Used Date Smoking Tobacco: Never Assessed Sex and Gender Information Value Date Recorded Sex Assigned at Not on file Gender Identity Male 07/02/2020 16:52 EDT Sexual Orientation Not on file documented as of this encounter Progress Notes * Neo Madrid MD - 09/20/2009 1603 EST March 03, 2006 Farnaz Pineda M.D. 201 [facility], [address] [place] [address] Pineda, I saw Mr. Rodgers [...] Madrid MD A - dsp Job ID: [id number] Document ID: [id number] cc: Farnaz Pineda MD documented in this encounter Plan of Treatment Upcoming Encounters Date Type Department Care Team (Late st Contact Info) Description 03/18/2025 14:00 EDT Ancillary Procedure [facility] Cardiology [address] [place], [place] [phone] 03/18/2025 14:40 EDT Office Visit [facility] Cardiology [address] [place] [address] Fela Villegas NP 62 [facility] [address] [place] [address] documented as of this encounter Visit Diagnoses Not on filedocumented in this encounter
--- OUTSIDE RECORDS SUMMARY | 2024-06-07 19:48 | XMS_ITS | Encounter Summary ---
Author Organization [facility] Address [address] [place] [address] Care Team Providers Care Bonding Supervisor Name Role Phone Farnaz Pineda MD Primary Care Provider [phone] Encounter Details Date Type Department Care Team [...] Ancillary Procedure [facility] Cardiology - [address] [place], [place] [phone] 03/18/2025 14:40 EDT Office Visit [facility] Cardiology [place] [address] Fela Villegas, PANKAJ 62 [facility] [address] [place] [address] documented as of this encounter Visit Diagnoses Not on filedocumented in this encounter Care Teams Bonding Supervisor Relationship Specialty Start Date End Date Farnaz Pineda MD [address] [place] [address] PCP - General 11/18/09 documented as of this encounter
--- OUTSIDE RECORDS SUMMARY | 2024-06-07 19:48 | XMS_ITS | Encounter Summary ---
Author Organization [facility] Address [address] [place] [address] Care Team Providers Care Production Line Operator Name Role Phone Unavailable Primary Care Provider Unavailabl e Encounter Details Date Type Department Care Team (Latest Contact Info) Description 06/04/2002 8:37 EDT - 06/04/2002 11:59 EDT Hospital Encounter [facility] [address] [place] [address] Masoud Contreras MD Discharge Disposition: Auto Discharge [...] Procedure [facility] Cardiology - [address] [place] [address] 03/18/2025 14:40 EDT Office Visit [facility] Cardiology - [facility] [place] [address] Fela Villegas NP 62 [facility] [address] [place] [address] documented as of this encounter [...] URINALYSIS ORDERA BLES [facility] [address] [place] [address] * URINALYSIS (06/04/2002 11:22 EDT) Color, UA Yellow [facility] Clarity, UA Clear [facility] Glucose, UA Norm NORM [facility] Bilirubin, UA Neg NEG [facility] Ketones, UA Neg NEG [facility] Specific [place], Urine 1.020 1.005 - 1.02 [facility] [...] EDT Masoud Contreras MD URINALYSIS ORDERA UNIQUE [facility] Organization Address City/State/ZIP Co de Phone Number [facility] [address] [place] [address] documented in this encounter Visit Diagnoses Not on filedocumented in this encounter
--- OUTSIDE RECORDS SUMMARY | 2024-06-07 19:48 | XMS_ITS | Encounter Summary ---
Author Organization [facility] Address [address] [place] [address] Care Team Providers Care Lost And Found Clerk Name Role Phone Unavailable Primary Care Provider Unavailabl e Encounter Details Date Type Department Care Team (Latest Contact Info) Description 05/21/2002 6:19 EDT - 05/21/2002 11:[address] [facility] Surgery Unit [address] [place], [place] [address] Neo Madrid MD Discharge Disposition: Home or [...] Description 03/18/2025 14:[address] [facility] Cardiology - [address] [place] [address] 03/18/2025 14:[address] [facility] Cardiology - [address] [place] [address] Fela Villegas NP 62 [facility] [address] [place] [address] documented as of this encounter [...] BLOOD GA S ORDERABLES Performing Organization Address City/[facility]/ZIP Co de Phone Number [facility] [address] [place] [address] * (ABNORMAL) PTT (05/21/2002 7:14 EDT) PTT 21(L) 23 - 33 secs [facility] Comment:Therapeutic Heparin range: 58-100 seconds 05/21/2002 7:14 EDT 05/21/2002 7:15 EDT Neo Madrid MD HEMATOLOGY & PF4 ORD ERABLES Performing Organization Address City/[facility] Co de Phone Number [facility] [address] [place] [address] * PROTIME (05/21/2002 7:14 EDT) Pro Time [...] & PF4 ORD ERABLES Performing Organization Address [facility]/[place] de Phone Number [facility] [address] [place] [address] * ELECTROLYTES (05/21/2002 7:14 EDT) Sodium 141 136 - 145 mEq/L [facility] Potassium 4.3 3.5 - 5.0 mEq/L [facility] Chloride 107 96 - 110 mEq/L [facility] CO2 28 24 - 30 mEq/L [facility] 05/21/2002 7:14 EDT 05/21/2002 7:15 EDT Neo Madrid MD CHEMISTRY & BLOOD GA S ORDERABLES Performing Organization Address [facility] de Phone Number [facility] [address] [place] [address] * LIPID PROFILE (INCLUDES CHOLESTEROL, TRIGLYCERIDES, HDL, LDL) (05/21/2002 7:14 EDT) Cholesterol 208 mg/dl [facility] Comment: Desirable:<200 Borderline:200-239 High Risk:>[id number] Triglycerides 104 35 - 160 mg/dl [facility] HDL 54 mg/dl [facility] Comment: Highly Desirable:>60 Desirable:35-60 High Risk:<35 Fasting LDL, Calculated 133 mg/dl [facility] Comment: Desirable:<130 Borderline:130-159 High Risk:>[id number] Fasting Chol/HDL Ratio 3.9 Fasting [facility] 05/21/2002 7:14 EDT 05/21/2002 7:15 EDT Neo Madrid MD CHEMISTRY & BLOOD GA S ORDERABLES [facility] [address] [place] [address] * CREATININE (05/21/2002 7:14 EDT) Creatinine 1.2 0.7 - 1.5 mg/dl [facility] 05/21/2002 7:14 EDT 05/21/2002 7:15 EDT Neo Madrid MD HISTORICAL LAB FOR S Q LOAD Performing Organization Address City/[facility] Co de Phone Number [facility] [address] [place] [address] * HEMAGRAM (05/21/2002 7:14 EDT) WBC 9.51 [...] & PF4 ORD ERABLES Performing Organization Address City/[facility] Co de Phone Number [facility] [address] [place] [address] * (ABNORMAL) BUN (05/21/2002 7:14 EDT) BUN 29(H) 10 - 26 mg/dl [facility] 05/21/2002 7:14 EDT 05/21/2002 7:15 EDT Neo Madrid MD CHEMISTRY & BLOOD GA S ORDERABLES Performing Organization Address City/State/[facility] Co de Phone Number [facility] [address] [place] [phone] documented in this encounter Visit Diagnoses Not on filedocumented in this encounter
--- OUTSIDE RECORDS SUMMARY | 2024-06-07 19:48 | XMS_ITS | Encounter Summary ---
Author Organization [facility] Address [address] [place] [address] Care Team Providers Care High Rigger Name Role Phone Farnaz Pineda MD Primary Care Provider [phone] Reason for Visit * Reason Comments Other AV replacement Encounter Details Date Type Department Care Team (Late st Contact Info) Description 08/28/2013 10:00 EST Office Visit [facility] Cardiology - [address] [place] [address] Neo Madrid MD Aortic valve [...] Neo Madrid MD - 08/28/2013 1252 EST [facility] DIVISION OF CARDIOLOGY August 28, 2013 Farnaz Pineda MD [address] [place] [address] RE: DILLAN AL : [address] [...] that point, they decided to put a [place] filter in. Subsequent to that, he developed [...] of DVT. c. Complication of sepsis. d. [place] filter. Current Medications: Aspirin 81 mg a [...] - Neo Madrid MD ln Dictation ID: [id number] cc: Farnaz Pineda MD, [address], [address], [place] [address] * Neo Madrid MD - 08/28/2013 1053 EST This office note has been dictated. documented in this encounter Plan of Treatment Upcoming Encounters Date Type Department Care Team (Late st Contact Info) Description 03/18/2025 14:00 EDT Ancillary Procedure [facility] Cardiology - [address] [place] [address] 03/18/2025 14:40 EDT Office Visit [facility] Cardiology - [address] [place] [address] Fela Villegas, PANKAJ 62 [facility] [address] [place] [address] documented as of this encounter Visit Diagnoses Diagnosis Aortic valve disorders- Primary documented in this encounter Historical Medications * This list may reflect changes made after this encounter. Medication Sig Dispensed Refills Start Date End Date venlafaxine (EFFEXOR) 75 mg tablet Take 1 Tablet by mouth daily. added in this encounter Care Teams High Rigger Relationship Specialty Start Date End Date Farnaz Pineda MD [address] [place] [address] PCP - General 11/18/09 documented as of this encounter
--- OUTSIDE RECORDS SUMMARY | 2024-06-07 19:48 | XMS_ITS | Encounter Summary ---
Author Organization [facility] Address [address] [place] [address] Care Team Providers Care Filler Sifter Helper Name Role Phone Farnaz Pineda MD Primary Care Provider [phone] Reason for Visit * Reason Comments Other AV disorder Encounter Details Date Type Department Care Team (Late st Contact Info) Description 03/20/2015 11:30 EDT Office Visit [facility] Cardiology - [address] [place], [place] [phone] Neo Madrid MD Aortic valve disorders (Primary [...] Madrid MD - 03/31/2015 1112 EDT [facility] CARDIOLOG[facility] March 20, 2015 Farnaz Pineda MD [address] [place] [address] RE: DILLAN AL : [address] [...] PM - Neo Madrid MD Dictation ID: [id number] cc: Farnaz Pineda MD, [address], [place] [address] * Neo Madrid MD - 03/20/2015 1203 EDT This office note has been dictated. documented in this encounter Plan of Treatment Upcoming Encounters Date Type Department Care Team (Late st Contact Info) Description 03/18/2025 14:00 EDT Ancillary Procedure [facility] Cardiology - [address] [phone] 03/18/2025 14:40 EDT Office Visit [facility] Cardiology - [address] [place], [place] [phone] Fela Villegas NP 62 [facility] [address] [place] [address] documented as of this encounter Visit Diagnoses Diagnosis Aortic valve disorders- Primary documented in this encounter Care Teams Filler Sifter Helper Relationship Specialty Start Date End Date Farnaz Pineda MD [address] [place] [address] PCP - General 11/18/09 documented as of this encounter
--- OUTSIDE RECORDS SUMMARY | 2024-06-07 19:48 | XMS_ITS | Encounter Summary ---
Author Organization [facility] Address [address] [place] [address] Care Team Providers Care Scanning Manager Name Role Phone Farnaz Pineda MD Primary Care Provider [phone] Reason for Visit * Reason Comments Other aortic valve replace ment Encounter Details Date Type Department Care Team (Late st Contact Info) Description 09/28/2012 10:45 EST Office Visit [facility] Cardiology - [address] [place], [place] [phone] Neo Madrid MD Aortic valve disorders (Primary [...] 1950 September 28, 2012 Farnaz Pineda MD [address], [address] [place] [address] Pineda: I saw Mr Al [...] - CD Job ID: SM Doc ID: [id number] Ext Doc ID: [id number] cc: Farnaz Pineda MD * Neo Madrid MD - 09/28/2012 1104 EST This office note has been dictated. documented in this encounter Plan of Treatment Upcoming Encounters Date Type Department Care Team (Late st Contact Info) Description 03/18/2025 14:00 EDT Ancillary Procedure [facility] Cardiology - [address] [place] [address] 03/18/2025 14:40 EDT Office Visit [facility] Cardiology - [address] [place] [address] Fela Villegas NP 62 [facility] [address] [place] [address] documented as of this encounter Visit Diagnoses Diagnosis Aortic valve disorders- Primary documented in this encounter Historical Medications * This list may reflect changes made after this encounter. Medication Sig Dispensed Refills Start Date End Date levothyroxine (SYNTHROID) 50 mcg tablet Take 1 Tablet by mouth daily. added in this encounter Care Teams Scanning Manager Relationship Specialty Start Date End Date Farnaz Pineda MD [address] [place] [address] PCP - General 11/18/09 documented as of this encounter
--- OUTSIDE RECORDS SUMMARY | 2024-06-07 19:48 | XMS_ITS | Encounter Summary ---
Author Organization [facility] Address [address] [place] [address] Care Team Providers Care Ornamental Iron Worker Helper Name Role Phone Farnaz Pineda MD Primary Care Provider [phone] Reason for Visit * Reason Onset Date Comments Anticoagulation 09/21/2012 Anticoagulation 09/22/2012 Encounter Details Date Type Department Care Team (Late st Contact Info) Description 09/21/2012 Telephone [facility] Cardiology - [address] [place], [place] [phone] Neo Madrid MD Anticoagulation; Anticoagulation Social History [...] Telephone Encounter - Nicole Davis - 09/21/[address] Pineda is requesting a call [...] Info) Description 03/18/2025 14:00 EDT Ancillary Procedure [facility] Cardiology [address] [place] [address] 03/18/2025 14:40 EDT Office Visit [facility] Cardiology [address] [place], [place] [phone] Fela Villegas NP [address] [place] [address] [address] [place] [address] documented as of this encounter Visit Diagnoses Not on filedocumented in this encounter Care Teams Ornamental Iron Worker Helper Relationship Specialty Start Date End Date Farnaz Pineda MD [address] [place] [address] PCP - General 11/18/09 documented as of this encounter
--- OUTSIDE RECORDS SUMMARY | 2024-06-07 19:48 | XMS_ITS | Encounter Summary ---
Author Organization [facility] Address [address] [place] [address] Care Team Providers Care Broadband Technician Name Role Phone Farnaz Pineda MD Primary Care Provider [phone] Encounter Details Date Type Department Care Team (Late st Contact Info) Description 10/05/2012 Results Only [facility]- [facility] [phone] Kyler Vance MD [address] [address] Social History Tobacco Use Types [...] Description 03/18/2025 14:00 EDT Ancillary Procedure [facility] Cardiology - [address] [place] [address] 03/18/2025 14:40 EDT Office Visit [facility] Cardiology - [facility] [place] [address] Fela Villegas NP [address] [facility] [address] [place] [address] documented as of this encounter [...] ? DILLAN AL ? Accession #: ? [id number] ? : ? 1950 (Age: 62) ??M [...] remaining) Shasha pattern: ??Grade 3. ??- Total North English score: ??6. - Number of cores positive/total number of cores: ??10/10. - 9% of prostatic tissue involved by tumor. - Perineural invasion: ??Not identified. ?? B. 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 ? - Histologic grade: ??- Primary (predominant) North English pattern: ??Grade 3. ??- Secondary (worst remaining) North English pattern: ??Grade 3. ??- Total North English score: ??6. - Number of cores positive/total [...] ? - Histologic grade: ??- Primary (predominant) North English pattern: ??Grade 4. ??- Secondary (worst remaining) North English pattern: ??Grade 4. ??- Total North English score: ??8. - Number of cores positive/total [...] pattern: ??Grade 4. ??- Secondary (worst remaining) North English pattern: ??Grade 5. ??- Total Shasha score: [...] prostatic glands and stroma. ?? Comment: ? Supervisory Air Intercept Controller sections of this case were reviewed at [...] reagents' performance characteristics have been determined by [facility]. ??This laboratory is certified under the [...] Dillan and Lt mid lat is a ausitn-white cylindrical soft tissue fragment measuring 1.6 cm [...] specimen is entirely submitted as (L). ??(Delvin Milton)/[facility] End of Report [facility] 10/05/2012 21:2 7 EST 10/05/2012 21:27 EST Kyler Vance MD PATHOLOGY ORDERABLES [facility] [address] [place] [address] documented in this encounter Visit Diagnoses Not on filedocumented in this encounter Care Teams Broadband Technician Relationship Specialty Start Date End Date Farnaz Pineda MD [address] [place] [address] PCP - General 11/18/09 documented as of this encounter
--- OUTSIDE RECORDS SUMMARY | 2024-06-07 19:48 | XMS_ITS | Encounter Summary ---
Author Organization [facility] Address [address] [place] [address] Care Team Providers Care Needle Leader Name Role Phone Farnaz Pineda MD Primary Care Provider [phone] Encounter Details Date Type Department Care Team (Late st Contact Info) Description 10/01/2013 Results Only [facility] Laboratory Services - [facility] ([facility]) [address] [place], [place] [id number] Bartolome Waddell MD [address] [place], [place] [address] Social History Tobacco Use Types Packs/Day Years [...] 03/18/2025 14:00 EDT Ancillary Procedure [facility] Cardiology - [facility] [place] [address] 03/18/2025 14:40 EDT Office Visit [facility] Cardiology - [place] [address] Fela Villegas NP [address] [facility] [address] [place] [address] documented as of this encounter [...] ? DILLAN AL ? Accession #: ? [id number] ? : ? 1950 (Age: 63) ??M [...] ANTIBODY(CLONE)(BLOCK) :RESULT H PYLORI (RABBIT MONOCLONAL (SP48), [place]) (block B1 and C1): Negative NOTE: ??One [...] reagents' performance characteristics have been determined by [facility]. ??The positive and negative controls worked appropriately. [...] MD PATHOLOGY ORDERABLES [facility] [address] [place] [address] documented in this encounter Visit Diagnoses Not on filedocumented in this encounter Care Teams Needle Leader Relationship Specialty Start Date End Date Farnaz Pineda MD [address] [place] [address] PCP - General 11/18/09 documented as of this encounter
--- OUTSIDE RECORDS SUMMARY | 2024-06-07 19:48 | XMS_ITS | Encounter Summary ---
Author Organization [facility] Address [address] [place] [address] Care Team Providers Care Green Plumber Name Role Phone Farnaz Pineda MD Primary Care Provider [phone] Reason for Referral * Cardiology (Routine) - Closed Specialty Diagnoses / Procedures [facility] Referred To Contact Cardiology Diagnoses H/O aortic valve replacement Procedures TRANSTHORACIC ECHO (TTE) COMPLETE Fela Villegas NP [address] [phone] [facility] Cardiology [address] [place] [address] [place] [address] Referral ID Status Reason Start Date Expiration Date Visits Re quested Visits Authorized [id number] Closed 07/04/2020 1 1 Reason for Visit * Reason Comments Follow-up 1 YR FUR Encounter Details Date Type Department Care Team (Late st Contact Info) Description 07/04/2020 14:20 EDT Office Visit [facility] Cardiology - [facility] [place] [address] Fela Villegas NP [address] [address] H/O aortic valve replacement (Primary [...] of seeing Dillan Al in the [facility] cardiology clinic today for Aortic valve [...] by DVT. c. Complicated by sepsis. d. Jermyn filter. CURRENT MEDICATIONS Current Outpatient Medications on [...] Description 03/18/2025 14:00 EDT Ancillary Procedure [facility] Cardiology - [facility] [address] [facility] [place] [address] 03/18/2025 14:40 EDT Office Visit [facility] Cardiology - [facility] [address] [facility] [place] [address] Fela Villegas NP [address] [facility] [address] [place] [address] documented as of this encounter Procedures [...] color Doppler.The study was interpreted by [facility]. Pertinent images and digital data are archived for permanent storage and are available for subsequent review. Scanning was performed from the apical, parasternal, subcostal and suprasternal acoustic windows. Overall the study quality was adequate. Images were obtained using cardiac ultrasound machine [employer] #19. Fela Villegas NP CARDIAC ECHO ORDERAB LES * ECG REPORT - SCANNED (07/09/2020 11:56 EDT) 07/09/2020 11:5 6 EDT Scan 2 Roping Tender PROCEDURE/MINOR MARCO A GICAL ORDERABLES * EKG 12-LEAD (07/04/2020 14:34 EDT) 07/04/2020 14:3 4 EDT Narrative [facility] EKG - 07/09/2020 11:44 EDT ? [facility] ? Test Date: ?2020-07-04 Pat Name: ? DILLAN AL ? Department: ?? [facility] Card ? Room: ? Gender: ? Male ? Image Processing Engineer: ?? [id number] : ?1950 ? Requested By: GIULIA Mccormick Order Number: [id number] ?Reading : ?? BRENT MATA SA, MD ? Measurements Intervals ?Paoli ? Rate: ? 70 ? P: ?8 NM: ? 180 ?QRS: ?26 QRSD: ? 109 [...] Brent Todd Sa, MD - 07/09/2020 [facility] Test Date: 2020-07-04 Pat Name: DILLAN AL Department: [place] Isbell Room: Gender: Male Image Processing Engineer: [id number] : 1950 Requested By: GIULIA Mccormick Order Number: [id number] Kwadwo MD: BRENT FOY Measurements Intervals Paoli Rate: 70 P: 8 NM: 180 QRS: 26 QRSD: 109 T: 70 [...] Fela Villegas NP CARDIAC ECG ORDERABL ES [facility] EKG documented in this encounter Visit Diagnoses Diagnosis H/O aortic valve replacement- Primary Heart valve replaced by other means H/O aortic valve replacement Heart valve replaced by other means documented in this encounter Care Teams Green Plumber Relationship Specialty Start Date End Date Farnaz Pineda MD [address] [place] [address] PCP - General 11/18/09 documented as of this encounter
--- OUTSIDE RECORDS SUMMARY | 2024-06-07 19:48 | XMS_ITS | Encounter Summary ---
Author Organization [facility] Address [address] [place] [address] Care Team Providers Care Grinding Machine Operator Portable Name Role Phone Unavailable Primary Care Provider Unavailabl e Encounter Details Date Type Department Care Team (Late st Contact Info) Description 03/01/2005 14:15 EDT Hospital Encounter [facility] - [address] [place] [address] Neo Madrid MD Social History Tobacco Use [...] Description 03/18/2025 14:00 EDT Ancillary Procedure [facility] Cardiology - [facility] [place] [address] 03/18/2025 14:40 EDT Office Visit [facility] Cardiology - [facility] [place] [address] Fela Villegas NP [address] [address] documented as of this encounter Visit Diagnoses Not on filedocumented in this encounter
--- OUTSIDE RECORDS SUMMARY | 2024-06-07 19:48 | XMS_ITS | Encounter Summary ---
Author Organization [facility] Address [address] [place] [address] Care Team Providers Care Colorectal Surgeon Name Role Phone Unavailable Primary Care Provider Unavailabl e Encounter Details Date Type Department Care Team (Late st Contact Info) Description 07/06/2001 15:49 EDT Hospital Encounter [facility] - [address] [place] [address] Leanna Iqbal MD [address] [place] [address], [address] [place] [id number] Social History Tobacco Use Types Packs/Day Years [...] Info) Description 03/18/2025 14:00 EDT Ancillary Procedure [facility] Cardiology [place] [address] 03/18/2025 14:40 EDT Office Visit [facility] Cardiology - [address] [place], [place] [id number] Fela Villegas NP [address] [place] [address] documented as of this encounter Procedures [...]
--- OUTSIDE RECORDS SUMMARY | 2024-06-07 19:48 | XMS_ITS | Encounter Summary ---
Author Organization [facility] Address [address] [place] [address] Care Team Providers Care Core Winder Machine Operator Name Role Phone Unavailable Primary Care Provider Unavailabl e Encounter Details Date Type Department Care Team (Latest Contact Info) Description 03/03/2006 14:04 EDT Hospital Encounter [facility] conversion [address] [place] [address] Neo Madrid MD Discharge Disposition: Auto Discharge [...] Info) Description 03/18/2025 14:00 EDT Ancillary Procedure [facility] Cardiology - [facility] [address] [place], [place] [id number] 03/18/2025 14:40 EDT Office Visit [facility] Cardiology - [facility] [address] [place], [place] [phone] Fela Villegas NP [address] [facility] [address] [place] [address] documented as of this encounter Visit Diagnoses Not on filedocumented in this encounter
--- OUTSIDE RECORDS SUMMARY | 2024-06-07 19:48 | XMS_ITS | Encounter Summary ---
Author Organization [facility] Address [address] [place] [address] Care Team Providers Care Passenger Flagman Name Role Phone Farnaz Pineda MD Primary Care Provider [phone] Reason for Visit * Reason Onset Date Comments Medication Management 01/23/2013 Encounter Details Date Type Department Care Team (Late st Contact Info) Description 01/23/2013 Telephone [facility] Cardiology - [address] [place] [address] Neo Madrid MD Medication Management [...] Telephone Encounter - Haleigh Nesbitt - 01/23/2013 0609 EDT Patient had radicule protectomy at [facility] on 11/20 and has been back [...] Telephone Encounter - Soledad Palacio - 01/23/2013 0807 EDT Pts would like to speak to [...] 03/18/2025 14:00 EDT Ancillary Procedure [facility] Cardiology - [address] [place], [place] [id number] 03/18/2025 14:40 EDT Office Visit [facility] Cardiology - [address] [place] [address] Fela Villegas NP [address] [facility] [address] [place] [address] documented as of this encounter Visit Diagnoses Not on filedocumented in this encounter Historical Medications * This list may reflect changes made after this encounter. Medication Sig Dispensed Refills Start Date End Date cyclobenzaprine (FLEXERIL) 10 mg tablet Take 10 mg by mouth 2 times daily as needed. 03/15/2024 added in this encounter Care Teams Passenger Flagman Relationship Specialty Start Date End Date Farnaz Pineda MD [address] [place] [address] PCP - General 11/18/09 documented as of this encounter
--- OUTSIDE RECORDS SUMMARY | 2024-06-07 19:48 | XMS_ITS | Encounter Summary ---
Author Organization [facility] Address [address] [place] [address] Care Team Providers Care Reading Intervention Teacher Name Role Phone Unavailable Primary Care Provider Unavailpedro luis e Encounter Details Date Type Department Care Team (Late st Contact Info) Description 08/17/2001 10:21 EST - 08/17/2001 11:59 EST Hospital Encounter [facility] - [address] [place] [address] Kristi Dcikens NP [address] [address] Discharge Disposition: Auto Discharge Social History Tobacco [...] 03/18/2025 14:00 EDT Ancillary Procedure [facility] Cardiology - [place] [address] 03/18/2025 14:40 EDT Office Visit [facility] Cardiology - [place] [address] Fela Villegas NP [address] [facility] [address] [place] [address] documented as of this encounter Visit Diagnoses Not on filedocumented in this encounter
== END 2024-06-07 19:41 | disposition home or self-care (01) ==
LOC: LBN 19:40
PROVIDERS: PCP Family Medicine; Visit Provider Internal Medicine Critical Care Medicine
DX: R05.3 Chronic cough (principal); R09.3 Abnormal sputum
CPT/HCPCS: 87070; 87205

== ENCOUNTER → 2024-06-19 08:13 | Outpatient (BNVA) | payer MEDICARE, SELFPAY | PROVIDERS: PCP Family Medicine; Referring Provider Family Medicine; Visit Provider Internal Medicine | DX: J47.0 Bronchiectasis with acute lower respiratory infection (principal); R93.89 Abnormal findings on diagnostic imaging of other specified body structures; R91.1 Solitary pulmonary nodule; J44.9 Chronic obstructive pulmonary disease, unspecified | CPT/HCPCS: 99215; G2212 ==

== ENCOUNTER 2024-06-21 03:53 | Outpatient (CLI) | payer MEDICARE, SELFPAY ==
[2024-06-21] MEDS: Methacholine 100 MG VIAL IH (14:52)
[2024-06-21] MEDS: Albuterol HFA 18 GM 200 PUFF INH IH (14:52)
[2024-06-21] MEDS: Inhaler, Assist Device 1 EACH MC (14:52)
--- NOTE | 2024-06-21 18:51 | W.PFT ---
Date of service: 06/21/24 Time of Service: 11:05 Pulmonary Function Test Result Requesting Provider Prosper Raygoza MD Indications: Bronchiectasis, chronic cough Breztri had been discontinued, albuterol prescribed as needed (not before test) Interpretation Spirometry: Spirometry pre and postbronchodilator and with methacholine challenge testing showed: 1. Moderate airway obstruction at baseline. The FEV1 has not changed significantly, but the FVC increased by 11% compared to pulmonary function testing on Breztri, November 2023. 2. Methacholine challenge testing was positive at 4 mg/mL, and nearly positive at 2 mg/mL. This is a borderline positive test for airway reactivity, with the airways being slightly more reactive than they were in November 2023 when the test was positive at 16 mg/mL. 3. After methacholine, lev albuterol bronchodilator was given, which returned the spirometry to near baseline 4. Forced vital capacity was mildly decreased at baseline. Lung Volumes: Lung volume studies by plethysmography showed: 1. Mild restriction, with nearly uniform reduction in lung volumes including total lung capacity 70% predicted, SVC 66% predicted, inspiratory capacity 69% predicted, ERV 59% predicted, and thoracic gas volume 73% predicted. 2. No evidence of hyperinflation. Diffusion Capacity: Diffusing capacity by single breath carbon monoxide technique was 64% predicted, and normalized to 100% when adjusted for lung volumes. Impression Moderate COPD with borderline airway reactivity, not significantly changed compared to November 2023 when the patient was on Breztri. Mild restriction and gas exchange abnormality, improved compared to November 2023 Considering the patient's diagnosis of bronchiectasis, based on this test there may not be a compelling reason to place patient back on inhaled steroids that may increase his chance of purulent exacerbations of bronchiectasis. I would instead recommend LAMA and/or LABA with as needed BROWN for management of COPD symptoms Clinical and radiographic correlation is recommended.
== END 2024-06-21 03:54 | disposition home or self-care (01) ==
LOC: RT 03:53
PROVIDERS: PCP Family Medicine; Visit Provider Internal Medicine
DX: R05.3 Chronic cough (principal); Z87.891 Personal history of nicotine dependence; J47.9 Bronchiectasis, uncomplicated
CPT/HCPCS: 00123; 94060; 94070; 94726; 94729; 94010; J7674

== ENCOUNTER 2024-06-28 03:16 | Outpatient (CLI) | payer MEDICARE, SELFPAY ==
--- NOTE | 2024-07-03 13:55 | RT.PO.E_ITS ---
Date of service: 06/28/24 Time of Service: 11:32 6 Minute Walk Test Note: 6 Minute Walk Test (6MWT): Ambulatory oximetry report Diagnosis: Stage II COPD, pulmonary rehabilitation intake screening. Ordering provider: Prosper Raygoza MD Conditions of test: Test done at [facility]. The test was done on room air. Data: The patient completed 6 minutes of ambulation. Initial SpO2 at baseline was 96% with a pulse of 88.? Respiratory rate was 9/min. Minimum oxygen saturation of 93% and a pulse of 102/min was noted 3 minutes 30 seconds of ambulation. During a 2-minute recovery, on 0 L of oxygen, saturation improved from 95% to 98%.? Pulse decreased from a maximum of 94/min to 75/min. Distance: 1400 feet. Number of stops: 0. Impression: Normal 6-minute walk test. Recommendations: Patient may participate in pulmonary rehabilitation without supplemental oxygen or other exercise limitations. Prosper Raygoza MD [facility] Pul[facility] & Critical [facility] Medicine
== END 2024-06-28 03:17 | disposition home or self-care (01) ==
LOC: RT 03:17
PROVIDERS: PCP Family Medicine; Visit Provider Internal Medicine
DX: J44.9 Chronic obstructive pulmonary disease, unspecified (principal)
CPT/HCPCS: 00123; 94618

== ENCOUNTER 2024-10-08 14:00 | Outpatient (RCR) | payer MEDICARE, SELFPAY | END 2024-10-09 23:59 | disposition home or self-care (01) | LOC: PRC 14:00 | PROVIDERS: PCP Family Medicine; Referring Provider Student in an Organized Health Care Education/Training Program; Visit Provider Student in an Organized Health Care Education/Training Program | DX: J47.1 Bronchiectasis with (acute) exacerbation (principal) | CPT/HCPCS: 94626 ==

== ENCOUNTER 2024-11-09 14:40 | Outpatient (RCR) | payer MEDICARE, SELFPAY | END 2024-11-09 23:59 | disposition home or self-care (01) | LOC: PRC 14:40 | PROVIDERS: PCP Family Medicine; Referring Provider Student in an Organized Health Care Education/Training Program; Visit Provider Student in an Organized Health Care Education/Training Program | DX: J47.1 Bronchiectasis with (acute) exacerbation (principal); Z51.89 Encounter for other specified aftercare | CPT/HCPCS: 94626 ==

== ENCOUNTER 2024-11-28 14:33 | Outpatient (RCR) | payer MEDICARE, SELFPAY | END 2024-12-07 23:59 | disposition home or self-care (01) | LOC: PRC 14:33 | PROVIDERS: PCP Family Medicine; Referring Provider Student in an Organized Health Care Education/Training Program; Visit Provider Internal Medicine Cardiovascular Disease | DX: J47.0 Bronchiectasis with acute lower respiratory infection (principal); J98.4 Other disorders of lung; Z51.89 Encounter for other specified aftercare | CPT/HCPCS: 94626 ==

== ENCOUNTER 2024-12-17 03:11 | Outpatient (CLI) | payer MEDICARE, SELFPAY ==
--- NOTE | 2024-12-17 07:00 | DI.CT_ITS ---
Exam(s) CT CHEST HIGH RESOLUTION EXAM: CT CHEST HIGH RESOLUTION CLINICAL HISTORY: f/u bronchiectatic areas RML, lingula, RLL, LLL,J47.0. TECHNIQUE: Imaging protocol: Axial computed tomography images were obtained and coronal and sagittal reformatted images were created and reviewed. Lung Computer Aided Detection (CAD) was utilized. COMPARISON: CR XR CHEST 2V PA LATERAL from 08/15/[address] CHEST WO from 02/23/2024 FINDINGS: Tracheobronchial tree: Patent where visualized. There is mild prominence of the size of the airways i n the left lower lobe. There is no mucous plugging. Pulmonary parenchyma: There has been slight improvement in the ground-glass opacities in the left upp er lobe. No new focal consolidating infiltrates are present. There are no new pulmonary nodules. Mediastinum and Isabela: No dominant adenopathy or fluid collection. There is a moderate size hiatal her des. There is a fluid level seen in the esophagus at the level of the thoracic aortic arch. Aspirat ion should be of concern. Thyroid gland: Unremarkable. Pleura: No effusion or pneumothorax. Heart: Medial megaly. Mild coronary artery calcification is present. No pericardial effusion. Aorta: The ascending thoracic aorta measures 4.8 x 4.6 cm. There is tortuosity and minimal atheroscl erotic calcification of the thoracic aorta. Upper abdomen: There is again seen marked right renal atrophy. Bilateral renal cysts are seen. Div erticulosis of the colon is noted. There is a right-sided fat containing anterior abdominal wall her des which is incompletely imaged. Lymph nodes: Within normal limits. Soft tissues: Bilateral gynecomastia. Bones:Within normal limits for the patient's age. Sternal wires are in place. There is a old nonuni kandace right 11th rib fracture. IMPRESSION: 1. No acute pulmonary process. 2. Stable prominence of the airways in the left lower lobe and slight improvement of the ground-glass opacities in the left upper lobe. 3. Incidental findings in the chest and upper abdomen as described above. RADIATION DOSE DELIVERED: 582.18mGy.cm Total DLP 582.18mGy.cm Total DLP DATA REPOSITORY: All CT scans at this facility are submitted to the National Radiology Data Registry (NRDR) Dose Index Registry (DIR) with the [employer] (ACR). RADIATION OPTIMIZATION: All CT scans at this facility use at least one of these dose optimization te chniques: automated exposure control; mA and/or kV adjustment per patient size (includes targeted exa ms where dose is matched to clinical indication); or iterative reconstruction.
== END 2024-12-17 03:31 ==
LOC: DI 03:11
PROVIDERS: PCP Family Medicine; Visit Provider Internal Medicine
DX: J47.0 Bronchiectasis with acute lower respiratory infection (principal)
CPT/HCPCS: 71250

== ENCOUNTER 2024-12-17 04:22 | Outpatient (CLI) | payer MEDICARE, SELFPAY ==
[2024-12-18 10:45] LABS: IgA 337 mg/dL (85-499); IgG 840 mg/dL (610-1616); IgM 67 mg/dL (35-242)
== END 2024-12-17 04:23 | disposition home or self-care (01) ==
PROVIDERS: PCP Family Medicine; Visit Provider Student in an Organized Health Care Education/Training Program
DX: J18.9 Pneumonia, unspecified organism (principal)
CPT/HCPCS: 36415; 82784

== ENCOUNTER 2025-02-21 16:33 | Outpatient (REF) | payer MEDICARE, SELFPAY ==
[2025-02-21 19:55] LABS: HCT 41.5 % (40.0-50.0); HGB 13.5 g/dL (13.5-17.5)
[2025-02-21 20:19] LABS: ALT 21 U/L (16-63); AST 38 U/L (15-37); Albumin 3.8 g/dL (3.4-5.0); Alkaline Phosphatase 60 U/L (46-116); Anion Gap 10.6 mmol/L (3-11); BUN 20 mg/dL (7-18); Bilirubin, Total 0.4 mg/dL (0.2-1.0); CO2 24.4 mmol/L (21.0-32.0); CREATININE 1.2 mg/dL (0.70-1.30); Calcium 9.2 mg/dL (8.5-10.1); Chloride 106 mmol/L (98-107); Estimated GFR 63.07 (mL/min/1.73m2); Glucose 66 mg/dL (74-106); Potassium 4.6 mmol/L (3.5-5.1); Sodium 141 mmol/L (136-145); TSH 1.27 uIU/mL (0.36-3.74)
[2025-02-22 18:55] LABS: PSA, Diagnostic <0.1 ng/mL (<=6.5)
== END 2025-02-21 16:34 | disposition home or self-care (01) ==
LOC: NCHCN 16:33
PROVIDERS: PCP Family Medicine; Visit Provider Family Medicine
DX: Z79.01 Long term (current) use of anticoagulants (principal); E03.9 Hypothyroidism, unspecified; C61 Malignant neoplasm of prostate
CPT/HCPCS: 80053; 83036; 84153; 84443; 85014; 85018

== ENCOUNTER 2025-03-06 00:32 | Outpatient (CLI) | payer MEDICARE, SELFPAY ==
--- NOTE | 2025-03-06 | DI.US_ITS ---
Exam(s) US AAA SCREENING EXAM: US AAA SCREENING CLINICAL HISTORY: Vascular disorder, I99.9, unspecified disorder of circulatory system COMPARISON: CT CT ABDOMEN PELVIS W from 03/22/2023 FINDINGS: Abdominal Aorta: Proximal: 2.2 cm Mid: 1.9 cm Distal: 2.4 cm Iliacs: Right: 1.8 cm Left: 1.6 cm IMPRESSION: No evidence of abdominal aortic aneurysm. DATA REPOSITORY:
== END 2025-03-06 00:52 ==
LOC: DI 00:32
PROVIDERS: PCP Family Medicine; Visit Provider Family Medicine
DX: I99.9 Unspecified disorder of circulatory system (principal)
CPT/HCPCS: 76706

== ENCOUNTER 2025-04-02 03:18 | Outpatient (CLI) | payer MEDICARE, SELFPAY ==
--- NOTE | 2025-04-14 09:59 | W.PFT ---
Date of service: 04/02/25 Time of Service: 13:02 Pulmonary Function Test Result Indications: Chronic cough Interpretation Spirometry: No airflow limitation. Diffusion Capacity: Reduced diffusion Impression Reduced diffusion Clinical Correlation therefore is recommended.
== END 2025-04-02 03:19 | disposition home or self-care (01) ==
LOC: RT 03:19
PROVIDERS: PCP Family Medicine; Visit Provider Student in an Organized Health Care Education/Training Program
DX: R05.3 Chronic cough (principal)
CPT/HCPCS: 94010; 94729

== ENCOUNTER → 2025-06-05 11:10 | Outpatient (BNVA) | payer MEDICARE, SELFPAY | PROVIDERS: PCP Family Medicine; Referring Provider Family Medicine; Visit Provider Internal Medicine Pulmonary Disease | DX: J98.4 Other disorders of lung (principal); J39.8 Other specified diseases of upper respiratory tract; J44.9 Chronic obstructive pulmonary disease, unspecified; Z87.891 Personal history of nicotine dependence | CPT/HCPCS: 99214 ==